=== PATIENT | male | born 1955 | race Caucasian/White ===

== ENCOUNTER 2023-09-07 14:00 | Outpatient (OUT) | payer MEDICARE, SELFPAY ==
--- NOTE | 2023-09-07 14:08 | XR_ITS ---
The [address] [address] Patient Name: ITALIA ALLEN MRN: [id number] date: 1955 Sex: M Assigned Patient Location: RAD Current Patient Location: RAD Accession/Order Number: [id number] Exam Date: 09/07/2023 14:12 Report Date: 09/07/2023 14:43 At the request of: GREGOR VILLASEÑOR Procedure: XR chest 2V PROCEDURE: XR chest 2V DATE: 09/07/2023 1:12 PM CDT COMPARISONS: None. CLINICAL INDICATION: 68 years Male Chronic Cough R05.3 FINDINGS: The cardiomediastinal silhouette and pulmonary vasculature are within normal limits. The lungs are somewhat hypoaerated resulting in slight infrahilar atelectasis. Lungs are otherwise clear. There is no evidence of pleural effusion or pneumothorax. XR/XR chest 2V IMPRESSION: Chest radiograph is essentially within normal limits. Electronically authenticated by: KALEB LANDRUM Date: 09/07/2023 14:43
== END 2023-09-07 14:01 | disposition home or self-care (01) ==
LOC: RAD 14:03
PROVIDERS: PCP Nurse Practitioner Family; Visit Provider Nurse Practitioner Family
DX: R05.3 Chronic cough (principal)
CPT/HCPCS: 71046

== ENCOUNTER 2023-10-13 18:10 | Emergency (ER) | payer MEDICARE, SELFPAY ==
[2023-10-13] VITALS (54 sets, daily range): BP systolic 141–204; BP diastolic 71–122; PULSE 94–128; TEMP 36.6; O2SAT 78–100; BMI 36.2
--- NOTE | 2023-10-13 18:23 | ECG_ITS ---
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
--- NOTE | 2023-10-13 18:23 | XR_ITS ---
[address] [address] Patient Name: ITALIA ALLEN MRN: [id number] date: 1955 Sex: M Assigned Patient Location: ER Current Patient Location: ED.MAIN Accession/Order Number: [id number] Exam Date: 10/13/2023 18:40 Report Date: 10/13/2023 20:37 At the request of: MARYAM KWOK Procedure: XR chest 1V EXAM: XR chest 1V HISTORY: sob COMPARISON: 09/07/2023 TECHNIQUE: AP upright chest x-ray. FINDINGS: Cardiac enlargement slightly increased. Similar prominence with congestion of groundglass density consistent with edema. Left costophrenic angle poorly defined consistent with left effusion. No definite right effusion. No pneumothorax. XR/XR chest 1V IMPRESSION: Abnormal chest x-ray with findings consistent with CHF. Electronically authenticated by: DANYEL PARK Date: 10/13/2023 20:37
--- NOTE | 2023-10-13 18:30 | ED_ITS ---
HPI - SOB/Dyspnea General Chief Complaint: Shortness of Breath/Dyspnea Stated Complaint: Chest Pain Time Seen by Provider: 10/13/23 18:24 Source: patient and other Source comment: ems Mode of arrival: ambulance Limitations: no limitations History of Present Illness HPI Narrative: The patient presented to us with a history of few days progressively getting worse shortness of breath, the patient is not able to provide enough history as he is using nonrebreather and his pulse ox was 70% on arrival of the EMS. The patient has been having progressively getting worse bilateral edema of the lower extremity he mentioned that his physician has been trying to control his leg edema with Lasix The patient did mention having chest pain sometimes but the patient still speak in one-word sentences and not providing a lot of history Related Data Home Medications ?Medication ?Instructions ?Recorded ?Confirmed bumetanide 2 mg tablet 2 mg PO DAILY 10/13/23 10/13/23 diclofenac sodium 75 mg 75 mg PO BID 10/13/23 10/13/23 tablet,delayed release glipizide 10 mg tablet 10 mg PO BID 10/13/23 10/13/23 insulin detemir U-100 100 unit/mL 12 unit subcut BID 10/13/23 10/13/23 (3 mL) subcutaneous pen (Levemir FlexPen) insulin glargine 100 unit/mL (3 60 unit subcut DAILY 10/13/23 10/13/23 mL) subcutaneous pen (Lantus Solostar U-100 Insulin) lisinopril 40 mg tablet 40 mg PO DAILY 10/13/23 10/13/23 Allergies Allergy/AdvReac Type Severity Reaction Status Date / Time No Known Drug Allergies Allergy Verified 10/13/23 18:14 Review of Systems ROS Status of ROS 10 or more systems reviewed and unremark able except as noted in history and below Exam Narrative Exam Narrative: Nurses notes and vital signs reviewed and patient is not hypoxic. General: The patient is awake in respiratory distress and tachypneic Skin: Warm, dry, no pallor noted. No rash. Head: Normocephalic, atraumatic. Neck: Supple, non-tender. Eye: Pupils are equal, round and EOMI. No scleral icterus. Ears, Nose, Mouth, and Throat: TM are clear, no nasal mucosal hypertrophy. Oral mucosa is moist, no posterior oropharynx erythema, uvula is mid-line Cardiovascular: Regular Rate and Rhythm without murmur, gallop or rub. 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 No CVA tenderness Musculoskeletal: normal ROM, no calf or popliteal tenderness, bilateral 2+ sitting edema in both lower Extremities: GI: Abdomen is soft, non-distended. Normal bowel sounds. No masses appreciated. No tenderness to palpation. No rebound, guarding, or rigidity noted. Neurological: A&O x4. No cranial nerve dysfunction observed. No truncal ataxia. Moves all extremities. Sensation intact. Psychiatric: Cooperative and interactive. Normal mood and affect. Constitutional Vital Signs, click to edit/add: Last Vital Signs Temp 97.9 F 10/13/23 18:27 Pulse 117 H 10/13/23 18:27 Resp 24 H 10/13/23 18:27 BP 189/105 H 10/13/23 18:27 Pulse Ox 78 L 10/13/23 18:27 O2 Del Method Room Air 10/13/23 18:27 Course Vital Signs Vital signs: Vital Signs Pulse Oximetry 78 L 10/13/23 18:15 Oxygen Delivery Method Room Air 10/13/23 18:15 Temperature 97.9 F 10/13/23 18:27 Pulse Rate 117 H 10/13/23 18:27 Respiratory Rate 24 H 10/13/23 18:27 Blood Pressure 189/105 H 10/13/23 18:27 Pulse Oximetry 78 L 10/13/23 18:27 Oxygen Delivery Method Room Air 10/13/23 18:27 MDM - SOB/Dyspnea MDM Narrative Medical decision making narrative: The patient EKG upon arrival showing sinus tachycardia with a heart rate of 118 he is in distress prior to this test mostly secondary to pulmonary edema in addition to his blood pressure being elevated 180 but could be secondary to pulmonary edema secondary to hypertensive emergency The patient was started on nitro drip and CPAP The patient workup just started with a CBC chemistry as well as chest x-ray mostly he will need more Lasix as well to help diuresing him Patient care will be transferred to Dr. Aponte Discharge Plan Discharge Patient Disposition: Still a Patient
--- NOTE | 2023-10-13 18:36 | PC.NURSE ---
RT at bedside now
[2023-10-13 18:47] LABS: ABG PCO2 36.4 mmHg (35.0-45.0); Allen Test POSITIVE (POSITIVE); Base Excess ABG -3.1 mmol/L (-2.0-2.0); Basophils Absolute Auto 0.1 10^3/uL (0.0-0.1); Eosinophils Absolute Auto 0.4 10^3/uL (0.0-0.7); Eosinophils Percent Auto 2.9 % (0.9-7.0); Fractionated Inspired Oxygen 100 %; HCO3 ABG 21.9 mmol/L (22.0-26.0); Hematocrit 39.6 % (42.0-54.0); Hemoglobin 12.6 g/dL (14.0-18.0); Immature Granulocytes Abs Auto 0.08 10^3/uL (0.00-0.03); Immature Granulocytes Pct Auto 0.7 % (0.0-0.5); Liters per Minute 15; Lymphocytes Absolute Auto 1.4 10^3/uL (1.2-3.8); Lymphocytes Percent Auto 11.3 % (20.5-60.0); Mean Corpuscular HGB Conc 31.8 g/dL (29.9-35.2); Mean Corpuscular Hemoglobin 29.2 pg (25.9-34.0); Mean Corpuscular Volume 91.9 fL (80.0-94.0); Mean Platelet Volume 10.3 fL (9.5-13.5); Monocytes Absolute Auto 0.9 10^3/uL (0.3-0.8); Monocytes Percent Auto 7.5 % (1.7-12.0); Neutrophils Absolute Auto 9.4 10^3/uL (1.4-6.5); Neutrophils Percent Auto 76.6 % (43.0-75.0); O2 Mode NRB; Oxygen Saturation ABG 99.8 %; Platelet Count 337 10^3/uL (150-450); Puncture Site R RADIAL; Red Blood Count 4.31 10^6/uL (4.70-6.10); Red Cell Distribution Width 14.6 % (11.0-15.0); White Blood Count 12.2 10^3/uL (4.0-11.0); pH ABG 7.388 (7.350-7.450)
[2023-10-13 19:02] LABS: INR 1.04; Partial Thromboplastin Time 29.8 sec (22.3-36.2)
[2023-10-13 19:07] LABS: Alanine Aminotransferase 29 U/L (16-63); Albumin Globulin Ratio 0.8; Albumin Level 2.9 g/dL (3.4-5.0); Alkaline Phosphatase 78 U/L (46-116); Anion Gap 14.4; Aspartate Amino Transferase 29 U/L (15-37); BUN Creatinine Ratio 20.6; Bilirubin Total 0.5 mg/dL (0.2-1.0); Calcium 8.4 mg/dL (8.5-10.1); Carbon Dioxide 24.9 mmol/L (21.0-32.0); Chloride 104 mmol/L (98-107); Estimated GFR (African America 49 (>=60); Estimated GFR (Non-African Ame 40 (>=60); Globulin 3.6 g/dL; Glucose 272 mg/dL (74-106); Potassium 4.3 mmol/L (3.5-5.1); Sodium 139 mmol/L (136-145); Total Protein 6.5 g/dL (6.4-8.2)
[2023-10-13 19:22] LABS: Troponin I High Sensitivity 80.7 pg/mL (4.0-76.1)
--- NOTE | 2023-10-13 20:01 | RESP.RT ---
CPAP 10
[2023-10-13] MEDS: FUROSEMIDE 40 MG/4 ML VIAL IVP ×2 (20:06→22:20)
--- NOTE | 2023-10-13 20:36 | RESP.RT ---
Addendum entered by Aidee Gomze 10/13/23 20:39: Titrated to NC 2 LPM Original Note: CPAP 10
[2023-10-13 20:37] LABS: Troponin I High Sensitivity 543.2 pg/mL (4.0-76.1)
--- NOTE | 2023-10-13 20:37 | ECG_ITS ---
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
[2023-10-13] MEDS: ASPIRIN 81 MG TAB.CHEW 324 MG PO (20:53)
[2023-10-13 22:59] LABS: Troponin I High Sensitivity 982.5 pg/mL (4.0-76.1)
[2023-10-14] VITALS (46 sets, daily range): BP systolic 105–166; BP diastolic 61–98; PULSE 87–119; O2SAT 90–99
[2023-10-14 04:49] LABS: Troponin I High Sensitivity 1680.7 pg/mL (4.0-76.1)
--- NOTE | 2023-10-14 04:49 | ECG_ITS ---
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
[2023-10-14] MEDS: METOPROLOL TARTRATE 5 MG/5 ML VIAL 2.5 MG IVP (05:51)
[2023-10-14] MEDS: HEPARIN SODIUM (PORCINE) 5,000 UNIT/ML VIAL 4000 UNIT IV (05:52)
[2023-10-14] MEDS: HEPARIN SODIUM,PORCINE/D5W 25,000 UNIT/500 ML IV.SOLN 20 UNIT IV (05:52)
== END 2023-10-14 08:00 | disposition short-term general hospital (02) ==
PROVIDERS: Emergency Medicine; Emergency Provider Student in an Organized Health Care Education/Training Program; PCP Nurse Practitioner Family
DX: I50.9 Heart failure, unspecified (principal); J96.01 Acute respiratory failure with hypoxia; R79.89 Other specified abnormal findings of blood chemistry; I24.89 Other forms of acute ischemic heart disease
CPT/HCPCS: 36415; 36600; 71045; 80053; 82805; 83880; 84484; 85025; 85610; 85730; 93005; 94660; 96365; 96366; 96375; 96376; 99285; J1644; J1940

== ENCOUNTER 2023-11-19 15:04 | Emergency (ER) | payer MEDICARE, SELFPAY ==
[2023-11-19] VITALS (14 sets, daily range): BP systolic 124–163; BP diastolic 61–97; PULSE 64–79; TEMP 37.3; O2SAT 93–97; BMI 35.9
--- OUTSIDE RECORDS SUMMARY | 2023-11-19 15:13 | XMS_ITS | CCD ---
Author Organization [facility] Care Team Providers Care Career Technical Supervisor Name Role Phone NON STAFF Primary Care Provider UnavailMD Alodnra Rodriguez Admit Provider MD Ann Plata Other Provider MD Yovanny Rivera Attending Provider Alondra Gonzales Admitting Unavailable NON STAFF Primary Care Unavailable Yovanny Rivera Attending Unavailab Ann Zamarripa Consulting Unavailable ANN PLATA Attending Unavailable ANN PLATA Referring Unavailable JASPREET DAVID Admitting Unavailable NISSA BENÍTEZ Attending Unavailable LORIN BUSH Consulting Unavailable CARL WILEY Attending Unavailable ASIA COOLEY Referring Unavailable Medications Current Medications Medication Drug Class(es) Dates Sig (Normalized) Sig (Original) aspirin 81 mg delayed release oral tablet (1 source) Platelet Aggregation Inhibitor, Nonsteroidal Anti-inflammatory Drug Start: 10-15-2023 take 81 mg by mouth once daily Aspirin Active 81 MG PO Daily 0 October 15, 2023 12:00am bumetanide 2 mg oral tablet (1 source) Loop Diuretic Start: 10-14-2023 take 2 mg by mouth once daily Bumetanide Active 2 MG PO Daily October 14, 2023 12:00am 10 ml furosemide 10 mg/ml injection (1 source) Loop Diuretic Start: 10-15-2023 take 40 mg intravenously twice daily Furosemide Active 40 MG IV-PUSH BID@0800,1600 0 October 15, 2023 12:00am glipiZIDE 5 mg oral tablet (1 source) Sulfonylurea Start: 10-14-2023 take 10 mg by mouth twice daily Glipizide Active 10 MG PO Twice daily October 14, 2023 12:00am 3 ml insulin detemir 100 unt/ml pen injector (1 source) Insulin Analog Start: 10-14-2023 inject 12 [IU] by subcutaneous injection twice daily Insulin Detemir U-100 Active 12 UNIT SUBCUT Twice daily October 14, 2023 12:00am Insulin Glargine-Yfgn (Semglee(Insulin Glarg-Yfgn)Pen) 100 unit/mL (3 mL) insulin pen (2 sources) Start: 10-15-2023 Insulin Glargine-Yfgn (Semglee(Insulin Glarg-Yfgn)Pen) 100 unit/mL (3 mL) insulin pen Active 30 UNIT SUBCUT Daily 15 October 15, 2023 5:56pm Start: 10-14-2023 End: 10-15-2023 Insulin Glargine-Yfgn (Semgl ee(Insulin Glarg-Yfgn)Pen) 100 unit/mL (3 mL) insulin pen Discontinued 60 UNIT SUBCUT Daily October 14, 2023 12:00am October 15, 2023 5:57pm lisinopril 40 mg oral tablet (1 source) Angiotensin Converting Enzyme Inhibitor Start: 10-14-2023 take 40 mg by mouth once daily Lisinopril Active 40 MG PO Daily October 14, 2023 12:00am metoprolol tartrate 25 mg oral tablet (1 source) beta-Adrenergic Neena Start: 10-15-2023 take 25 mg by mouth twice daily Metoprolol Tartrate Active 25 MG PO Twice daily 0 October 15, 2023 12:00am Completed/Discontinued Medications Medication Drug Class(es) Dates Sig (Normalized) Sig (Original) diclofenac sodium 75 mg delayed release oral tablet (1 source) Nonsteroidal Anti-inflammatory Drug Start: 10-14-2023 End: 10-15-2023 take 75 mg by mouth twice daily Diclofenac Sodium Discontinued 75 MG PO Twice daily October 14, 2023 12:00am October 15, 2023 5:57pm Problems Problem Classification Problem Date Documented Da te Episodic/Chronic Acute myocardial infarction (2 sources) Non-ST elevation (NSTEMI) myocardial infarction; Translations: [Non-ST elevation (NSTEMI) myocardial infarction (Multi)] Onset: 10-15-2023 Chronic Chronic kidney disease (2 sources) Chronic kidney disease; Translations: [Chronic kidney disease, stage 3a (Multi)] Onset: 10-15-2023 Congestive heart failure; nonhypertensive (7 sources) Acute on chronic systolic heart failure; Translations: [Acute on chronic systolic (congestive) heart failure] Onset: 10-14-2023 10-14-2023 Chronic Coronary atherosclerosis and other heart disease (7 sources) Acute coronary syndrome; Translations: [Acute ischemic heart disease, unspecified] Onset: 10-14-2023 10-14-2023 Chronic Diabetes mellitus without complication (2 sources) Type 2 diabetes mellitus without complications; Translations: [Type 2 diabetes mellitus without complications (Multi)] Onset: 10-15-2023 Chronic Essential hypertension (4 sources) Essential (primary) hypertension; Translations: [Essential (primary) hypertension] Onset: 10-15-2023 Chronic Occlusion or stenosis of precerebral arteries (2 sources) Occlusion and stenosis of right carotid artery; Translations: [Occlusion and stenosis of right carotid artery] Onset: 11-02-2023 Chronic Other 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 (2 sources) 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; Translations: [USP (current) use of insulin (Multi)] Onset: 10-15-2023 Episodic Other circulatory disease (2 sources) Other disorders of arteries, arterioles and capillaries in diseases classified elsewhere; Translations: [Other disorders of arteries, arterioles and capillaries in diseases classified elsewhere ([facility])] Onset: 10-15-2023 Chronic Other lower respiratory disease (2 sources) Shortness of breath; Translations: [Shortness of breath] Onset: 10-15-2023 Episodic Other nervous system disorders (2 sources) Other chronic pain; Translations: [Other chronic pain] Onset: 10-15-2023 Chronic Other nutritional; endocrine; and metabolic disorders (2 sources) Body mass index (BMI) 36.0-36.9, adult; Translations: [Body mass index (BMI) 36.0-36.9, adult] Onset: 11-02-2023 Chronic Peripheral and visceral atherosclerosis (2 sources) Peripheral vascular disease, unspecified; Translations: [Peripheral vascular disease, unspecified ([facility])] Onset: 10-15-2023 Chronic Residual codes; unclassified (2 sources) Edema, unspecified; Translations: [Edema, unspecified] Onset: 11-02-2023 Episodic Respiratory failure; insufficiency; arrest (adult) (3 sources) Acute respiratory failure; Translations: [Acute respiratory failure with hypoxia] Onset: 10-14-2023 10-14-2023 Episodic Results Test Name Value Interpretation Reference Range Facility ECG 12-[facility]ADon 11-13-2023 ECG 12-LEAD Ventricular Rate 72 Atrial Rate 72 P-R Interval 188 QRS Duration 96 Q-T Interval 398 QTC Calculation(Bazett) 435 P Sumner -13 R Sumner 9 T Sumner 36 QRS Count 12 Q Onset 216 P Onset 122 P Offset 163 T Offset 415 QTC Fredericia 423 Diagnosis Normal sinus rhythm Normal ECG When compared with ECG of 16-OCT-2023 08:50, No significant change was found Confirmed by Mere Urban ([id number]) on 11/14/2023 6:48:02 PM Normal [facility] CBC panel Auto (Bld)on 10-23 Erythrocyte distribution width (RBC) [Ratio] 15.0 % High 11.5-14.5 [facility] Comment on above: Performed By: #### 5 8077-9 #### ERICA Tam ([id number]) [facility] ([facility]) [address] [place] [address] 44359 Hematocrit (Bld) [Volume fraction] 36.3 % Low 41.0-52.0 [facility] Comment on above: Performed By: #### 5 8077-9 #### ERICA Tam ([id number]) [facility] ([facility]) [address] [place] [address] 26501 Hemoglobin (Bld) [Mass/Vol] 11.4 g/dL Low 13.5-17.5 [facility] Comment on above: Performed By: #### 5 8077-9 #### ERICA Tam ([id number]) [facility] ([facility]) [id number] [place] [address] 00407 MCH (RBC) [Entitic mass] 29.1 pg Normal 26.0-34.0 [facility] Comment on above: Performed By: #### 5 8077-9 #### ERICA Tam ([id number]) [facility] ([facility]) [id number] [place] [address] 06953 MCHC (RBC) [Mass/Vol] 31.4 g/dL Low 32.0-36.0 [facility] Comment on above: Performed By: #### 5 8077-9 #### ERICA Tam ([id number]) [facility] ([facility]) [address] [place] [address] 11603 MCV (RBC) [Entitic vol] 93 fL Normal 80-100 [facility] Comment on above: Performed By: #### 5 8077-9 #### ERICA Tam ([id number]) [facility] ([facility]) [address] [place] [address] 68533 Nucleated RBC/100 WBC (Bld) [Ratio] 0.0 /100 WBCs Normal 0.0-0.0 [facility] Comment on above: Performed By: #### 5 8077-9 #### ERICA Tam ([id number]) [facility] ([facility]) [address] [place] [address] 36647 Platelets (Bld) [#/Vol] 313 x10*3/uL Normal 150-450 [facility] Comment on above: Performed By: #### 5 8077-9 #### ERICA Tam ([id number]) [facility] ([facility]) [address] [place] [address] 19157 RBC (Bld) [#/Vol] 3.92 x10*6/uL Low 4.50-5.90 [facility] Comment on above: Performed By: #### 5 8077-9 #### ERICA Tam ([id number]) [facility] ([facility]) [address] [place] [address] 50869 WBC (Bld) [#/Vol] 8.9 x10*3/uL Normal 4.4-11.[address] [facility] Comment on above: Performed By: #### 5 8077-9 #### ERICA Tam ([id number]) [facility] ([facility]) [address] [place] [address] 99669 Glucose Test strip manual (B ld) [Mass/Vol]on 10-24-2023 Glucose [Mass/Vol] 203 mg/dL High 74-99 [facility] Comment on above: Performed By: #### 5 8077-9 #### ERICA Tam ([id number]) [facility] ([facility]) [address] [place] [address] 48743 Renal function 2000 panelon 10-24-2023 Albumin BCP dye [Mass/Vol] 3.2 g/dL Low 3.4-5.0 [facility] Comment on above: Performed By: #### 5 8077-9 #### ERICA Tam ([id number]) [facility] ([facility]) [id number] [place] [address] 13654 Anion gap [Moles/Vol] 12 mmol/L Normal 10-20 [facility] Comment on above: Performed By: #### 5 8077-9 #### ERICA Tam ([id number]) [facility] ([facility]) [address] [place] [address] 59610 Calcium [Mass/Vol] 8.4 mg/dL Low 8.6-10.6 [facility] Comment on above: Performed By: #### 5 8077-9 #### ERICA Tam ([id number]) [facility] ([facility]) [address] [place] [address] 05961 Chloride [Moles/Vol] 105 mmol/L Normal 98-107 [facility] Comment on above: Performed By: #### 5 8077-9 #### ERICA Tam ([id number]) [facility] ([facility]) [address] [place] [address] CO2 [Moles/Vol] 24 mmol/L Normal 21-32 [facility] Comment on above: Performed By: #### 5 8077-9 #### ERICA Tam ([id number]) [facility] ([facility]) [address] [place] [address] Creatinine [Mass/Vol] 1.72 mg/dL High 0.50-1.30 [facility] Comment on above: Performed By: #### 5 8077-9 #### ERICA Tam ([id number]) [facility] ([facility]) [address] [place] [address] Glomerular filtration rate/1.73 sq M.predicted 42 mL/min/1.73m*2 Low >60 [facility] Comment on above: Result Comment: Calc ulations of estimated GFR are performed using the 2020 CKD-EPI Study Refit equation without the race variable for the IDMS-Traceable creatinine methods. https://jasn.asnjournals.org/content/early//ASN.91089 93319 Performed By: #### 5 8077-9 #### ERICA Tam ([id number]) [facility] ([facility]) [address] [place] [address] 12154 Glucose [Mass/Vol] 184 mg/dL High 74-99 [facility] Comment on above: Performed By: #### 5 8077-9 #### ERICA Tam ([id number]) [facility] ([facility]) [address] [place] [address] 14259 Phosphate [Mass/Vol] 3.9 mg/dL Normal 2.5-4.9 [facility] Comment on above: Result Comment: The performance characteristics of phosphorus testing in heparinized plasma have been validated by the individual laboratory site where testing is performed. Testing on heparinized plasma is not approved by the FDA; however, such approval is not necessary. Performed By: #### 5 8077-9 #### EIRCA Tam ([id number]) [facility] ([facility]) [address] [place] [address] Potassium [Moles/Vol] 4.1 mmol/L Normal 3.5-5.3 [facility] Comment on above: Performed By: #### 5 8077-9 #### ERICA Tam ([id number]) [facility] ([facility]) [address] [place] [address] Sodium [Moles/Vol] 137 mmol/L Normal 136-145 [facility] Comment on above: Performed By: #### 5 8077-9 #### ERICA Tam ([id number]) [facility] ([facility]) [address] [place] [address] 68071 Urea nitrogen [Mass/Vol] 38 mg/dL High 6-23 [facility] Comment on above: Performed By: #### 5 8077-9 #### ERICA Tam ([id number]) [facility] ([facility]) [address] [place] [address] 07143 Activated clotting timeon ACT Coag (Bld) [address] Comment on above: Result Comment: Targ et ACT range will vary based on the patient population, clinical status, and surgical intervention occurring. Performed By: #### 5 8077-9 #### ERICA Tam ([id number]) [facility] ([facility]) [address] [place] [address] 79459 ACT Coag (Bld) [address] Comment on above: Result Comment: Targ et ACT range will vary based on the patient population, clinical status, and surgical intervention occurring. Performed By: #### 5 8077-9 #### ERICA Tam ([id number]) [facility] ([facility]) [address] [place] [address] 80518 ACT Coag (Bld) [address] Comment on above: Result Comment: Targ et ACT range will vary based on the patient population, clinical status, and surgical intervention occurring. Performed By: #### 5 8077-9 #### ERICA Tam ([id number]) [facility] ([facility]) [address] [place] [address] 18416 CARDIAC CATHETERIZATION PROC EDUREon 10-23-2023 CARDIAC CATHETERIZATION PROCEDURE [facility], Statistical Typist, [address] [place] [address] 84150 Cardiovascular Catheterization Report Patient Name: ITALIA ALLEN Performing Physician: [id number] Wiley MD Study Date: 10/23/2023 Verifying Physician: Dior Wiley MD MRN/PID: [id number] Hotel Guest Service Agent/Co-Scrub: Ordering Provider: [id number] ASIA COOLEY Date of /Age: 6 1955 / 68 years Hotel Guest Service Agent: Gender: M Fellow: [id number] Asia Cooley DM Admit Date: Fellow: Abdoulaye Welsh MD Surgeon: Study: Left Heart Cath with PCI Additional Study: IVUS - Intravascular Ultrasound Additional Study: Orbital Atherectomy Indications: ITALIA ALLEN is a 68 year old male who presents with dyslipidemia, hypertension, renal failure and diabetes. ITALIA ALLEN is a 68 year old male who presents with coronary artery disease, diabetes, obesity, hypertension, dyslipidemia and a chest pain assessment of typical angina. NSTE - ACS and left ventricular dysfunction. Heart failure. Recent myocardial infarction. Recent CT. Medical History: Stress test performed: No. CTA performed: No. Agatston accessed: No. LVEF Assessed: Yes. LVEF = 45%. Cardiac arrest: No. Cardiac surgical consult: Completed - cardiac surgery not recommended. Cardiovascular instability: No. Frailty status of patient entering lab: 5 = Mildly frail. HPI: 68-year-old male with a past medical history of T2DM, heart failure with preserved ejection fraction, CKD, hyperlipidemia and hypertension who initially presented to an outside hospital with 2 days of chest pain associated with worsening dyspnea. He was subsequently transferred to [facility] for further workup. 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 Transthoracic echocardiogram demonstrated an LVEF of 45 to 50%. He was then transferred to [facility] for CABG evaluation. Sadly, his about a month ago and the patient has been suffering from significant depression/anxiety has been suffering from anxiety attacks associated with chest pain and dyspnea. On exam by cardiac surgery consults, patient was found to be labile, tearful due to the recent passing of his and had significant concerns about recovery postsurgery. In this setting, patient has been referred for multivessel percutaneous coronary vascularization. Coronary Angiography: The coronary circulation is right dominant. Left Main Coronary Artery: The left main coronary artery is a large caliber vessel. The left main coronary artery showed a normal vessel. Left Anterior Descending Coronary Artery Distribution: The LAD demonstrated calcification and severe calcification with severe stenosis from the ostium (80%) to its mid-segment (80-90%). Circumflex Coronary Artery Distribution: The mid circumflex coronary artery showed 50% stenosis. The 1st obtuse marginal branch is a large caliber vessel. This lesion was calcified. Right Coronary Artery Distribution: Known CONVERSION MAN. Coronary Interventions: After infiltration with 2% Lidocaine, the right was cannulated with a modified Seldinger technique with ultrasound guidance. Subsequently a 6 British sheath was placed antegrade in the right. A 6 British EBU 3.5 guide catheter was advanced over a 0.035 J guidewire into the ascending aorta. The left coronary artery was cannulated and angiography was performed. Coronary angiography demonstrated severe focal stenosis in a large caliber obtuse marginal branch and severe focal stenosis in the midsegment of the LAD. The circumflex artery was wired with the use of the Runthrough coronary guidewire without difficulty. The lesion in the obtuse marginal branch was predilated with a 3.0 x 15 mm semicompliant balloon with 1 inflation at 14 rodrigo. The lesion was then treated with a 3.5 x 15 mm [place] drug-eluting stent at 12 rodrigo. Post-stent intravascular ultrasound assessment with the [place] catheter was performed. IVUS demonstrated an underexpanded stent with a distal reference diameter of 4.0 mm. The stent was then postdilated with a 4.0 x 8 mm noncompliant balloon multiple inflations at 24 rodrigo. Post dilatation IVUS demonstrated a well-expanded and well apposed stent without evidence of medial edge dissection. The Johnathon Blue guidewire was removed from the circumflex and was used to wire the distal LAD without difficulty. Intravascular ultrasound assessment of the mid to ostial LAD was performed that demonstrated severe calcification with a >180 degree arc of calcification in the mid to ostial LAD, a minimal luminal area of 4.2 mm? and minimal luminal diameter of 2.2 mm. The distal reference diameter was measured to be 3.5 mm and 4.0 mm at the ostium of the LAD. The Viper wire was used parallel wire the LAD and the Johnathon blue wire was removed. Orbital atherectomy of the mid to proximal LAD was performed with 4 pa (more content not included)... [facility] CBC panel Auto (Bld)on 09-03 -2024 Erythrocyte distribution width (RBC) [Ratio] 14.6 % High 11.5-14.5 [facility] Comment on above: Performed By: #### 7 77-3 #### ERICA Tam ([id number]) [facility] ([facility]) [address] [place] [address] 15442 Hematocrit (Bld) [Volume fraction] 37.2 % Low 41.0-52.0 [facility] Comment on above: Performed By: #### 7 77-3 #### ERICA Tam ([id number]) [facility] ([facility]) [id number] [place] [address] 57407 Hemoglobin (Bld) [Mass/Vol] 11.2 g/dL Low 13.5-17.5 [facility] Comment on above: Performed By: #### 7 77-3 #### ERICA Tam ([id number]) [facility] ([facility]) [address] [place] [address] 53632 MCH (RBC) [Entitic mass] 27.9 pg Normal 26.0-34.0 [facility] Comment on above: Performed By: #### 7 77-3 #### ERICA Tam ([id number]) [facility] ([facility]) [address] [place] [address] 07306 MCHC (RBC) [Mass/Vol] 30.1 g/dL Low 32.0-36.0 [facility] Comment on above: Performed By: #### 7 77-3 #### ERICA Tam ([id number]) [facility] ([facility]) [address] [place] [address] 64040 MCV (RBC) [Entitic vol] 93 fL Normal 80-100 [facility] Comment on above: Performed By: #### 7 77-3 #### ERICA Tam ([id number]) [facility] ([facility]) [address] [place] [address] 45698 Nucleated RBC/100 WBC (Bld) [Ratio] 0.0 /100 WBCs Normal 0.0-0.0 [facility] Comment on above: Performed By: #### 7 77-3 #### ERICA Tam ([id number]) [facility] ([facility]) [address] [place] [address] Platelets (Bld) [#/Vol] 334 x10*3/uL Normal 150-450 [facility] Comment on above: Performed By: #### 7 77-3 #### ERICA Tam ([id number]) [facility] ([facility]) [address] [place] [address] RBC (Bld) [#/Vol] 4.01 x10*6/uL Low 4.50-5.90 [facility] Comment on above: Performed By: #### 7 77-3 #### ERICA Tam ([id number]) [facility] ([facility]) [id number] [place] [address] 80800 WBC (Bld) [#/Vol] 9.6 x10*3/uL Normal 4.4-11.[address] [facility] Comment on above: Performed By: #### 7 77-3 #### ERICA Tam ([id number]) [facility] ([facility]) [id number] [place] [address] 82459 Glucose Test strip manual (B ld) [Mass/Vol]on 10-23-2023 Glucose [Mass/Vol] 238 mg/dL High 74-99 [facility] Comment on above: Performed By: #### 5 8077-9 #### ERICA Tam ([id number]) [facility] ([facility]) [address] [place] [address] Glucose [Mass/Vol] 96 mg/dL Normal 74-99 [facility] Comment on above: Performed By: #### 7 77-3 #### ERICA Tam ([id number]) [facility] ([facility]) [id number] [place] [address] 30562 Glucose [Mass/Vol] 101 mg/dL High 74-99 [facility] Comment on above: Performed By: #### 7 77-3 #### ERICA Tam ([id number]) [facility] ([facility]) [address] [place] [address] Glucose [Mass/Vol] 96 mg/dL Normal 74-99 [facility] Comment on above: Performed By: #### 7 77-3 #### ERICA Tam ([id number]) [facility] ([facility]) [address] [place] [address] Renal function 2000 panelon 10-23-2023 Albumin BCP dye [Mass/Vol] 3.2 g/dL Low 3.4-5.0 [facility] Comment on above: Performed By: #### 7 77-3 #### ERICA Tam ([id number]) [facility] ([facility]) [id number] [place] [address] 96141 Anion gap [Moles/Vol] 13 mmol/L Normal 10-20 [facility] Comment on above: Performed By: #### 7 77-3 #### ERICA Tam ([id number]) [facility] ([facility]) [address] [place] [address] Calcium [Mass/Vol] 8.5 mg/dL Low 8.6-10.6 [facility] Comment on above: Performed By: #### 7 77-3 #### ERICA Tam ([id number]) [facility] ([facility]) [address] [place] [address] Chloride [Moles/Vol] 103 mmol/L Normal 98-107 [facility] Comment on above: Performed By: #### 7 77-3 #### ERICA Tam ([id number]) [facility] ([facility]) [address] [place] [address] CO2 [Moles/Vol] 25 mmol/L Normal 21-32 [facility] Comment on above: Performed By: #### 7 77-3 #### ERICA Tam ([id number]) [facility] ([facility]) [address] [place] [address] Creatinine [Mass/Vol] 1.77 mg/dL High 0.50-1.30 [facility] Comment on above: Performed By: #### 7 77-3 #### ERICA Tam ([id number]) [facility] ([facility]) [address] [place] [address] 76655 Glomerular filtration rate/1.73 sq M.predicted 41 mL/min/1.73m*2 Low >60 [facility] Comment on above: Result Comment: Calc ulations of estimated GFR are performed using the 2020 CKD-EPI Study Refit equation without the race variable for the IDMS-Traceable creatinine methods. https://jasn.asnjournals.org/content/early/ASN.90043 77706 Performed By: #### 7 77-3 #### ERICA Tam ([id number]) [facility] ([facility]) [address] [place] [address] 37960 Glucose [Mass/Vol] 99 mg/dL Normal 74-99 [facility] Comment on above: Performed By: #### 7 77-3 #### ERICA Tam ([id number]) [facility] ([facility]) [address] [place] [address] 70292 Phosphate [Mass/Vol] 4.9 mg/dL Normal 2.5-4.9 [facility] Comment on above: Result Comment: MODE RATE HEMOLYSIS DETECTED. The result may be falsely elevated due to hemolysis or other interferents. Clinical correlation is recommended. Repeat testing may be considered. The performance characteristics of phosphorus testing in heparinized plasma have been validated by the individual laboratory site where testing is performed. Testing on heparinized plasma is not approved by the FDA; however, such approval is not necessary. Performed By: #### 7 77-3 #### ERICA Tam ([id number]) [facility] ([facility]) [address] [place] [address] 06941 Potassium [Moles/Vol] 5.2 mmol/L Normal 3.5-5.3 [facility] Comment on above: Result Comment: MODE RATE HEMOLYSIS DETECTED. The result may be falsely elevated due to hemolysis or other interferents. Clinical correlation is recommended. Repeat testing may be considered. Performed By: #### 7 77-3 #### ERICA Tam ([id number]) [facility] ([facility]) [address] [place] [address] Sodium [Moles/Vol] 136 mmol/L Normal 136-145 [facility] Comment on above: Performed By: #### 7 77-3 #### ERICA Tam ([id number]) [facility] ([facility]) [address] [place] [address] 72124 Urea nitrogen [Mass/Vol] 39 mg/dL High 6-23 [facility] Comment on above: Performed By: #### 7 77-3 #### ERICA Tam ([id number]) [facility] ([facility]) [id number] [place] [address] 48194 Glucose Test strip manual (B ld) [Mass/Vol]on 10-22-2023 Glucose [Mass/Vol] 246 mg/dL High 74-99 [facility] Comment on above: Performed By: #### 7 77-3 #### ERICA Tam ([id number]) [facility] ([facility]) [id number] [place] [address] 31506 Glucose [Mass/Vol] 186 mg/dL High 7499 [facility] Comment on above: Performed By: #### 7 77-3 #### ERICA Tam ([id number]) [facility] ([facility]) [address] [place] [address] 09353 Glucose [Mass/Vol] 213 mg/dL High 74-99 [facility] Comment on above: Performed By: #### 7 77-3 #### ERICA Tam ([id number]) [facility] ([facility]) [address] [place] [address] 83301 Glucose [Mass/Vol] 143 mg/dL High 74-99 [facility] Comment on above: Performed By: #### 7 77-3 #### ERICA Tam ([id number]) [facility] ([facility]) [address] [place] [address] Renal function 2000 panelon 10-22-2023 Albumin BCP dye [Mass/Vol] 3.3 g/dL Low 3.4-5.0 [facility] Comment on above: Performed By: #### 7 77-3 #### ERICA MCDONALD L ([id number]) [facility] ([facility]) [address] [place] [address] Anion gap [Moles/Vol] 14 mmol/L Normal 10-20 [facility] Comment on above: Performed By: #### 7 77-3 #### ERICA MCDONALD L ([id number]) [facility] ([facility]) [address] [place] [address] 12103 Calcium [Mass/Vol] 8.8 mg/dL Normal 8.6-10.6 [facility] Comment on above: Performed By: #### 7 77-3 #### ERICA MCDONALD L ([id number]) [facility] ([facility]) [address] [place] [address] 72872 Chloride [Moles/Vol] 101 mmol/L Normal 98-107 [facility] Comment on above: Performed By: #### 7 77-3 #### ERICA MCDONALD L ([id number]) [facility] ([facility]) [address] [place] [address] CO2 [Moles/Vol] 23 mmol/L Normal 21-32 [facility] Comment on above: Performed By: #### 7 77-3 #### ERICA MCDONALD L ([id number]) [facility] ([facility]) [address] [place] [address] 04477 Creatinine [Mass/Vol] 1.75 mg/dL High 0.50-1.30 [facility] Comment on above: Performed By: #### 7 77-3 #### ERICA MCDONALD L ([id number]) [facility] ([facility]) [address] [place] [address] Glomerular filtration rate/1.73 sq M.predicted 42 mL/min/1.73m*2 Low >60 [facility] Comment on above: Result Comment: Calc ulations of estimated GFR are performed using the 2020 CKD-EPI Study Refit equation without the race variable for the IDMS-Traceable creatinine methods. https://jasn.asnjournals.org/content//ASN.93535 57990 Performed By: #### 7 77-3 #### ERICA Tam ([id number]) [facility] ([facility]) [address] [place] [address] Glucose [Mass/Vol] 214 mg/dL High 74-99 [facility] Comment on above: Performed By: #### 7 77-3 #### ERICA Tam ([id number]) [facility] ([facility]) [address] [place] [address] 40151 Phosphate [Mass/Vol] 4.3 mg/dL Normal 2.5-4.9 [facility] Comment on above: Result Comment: The performance characteristics of phosphorus testing in heparinized plasma have been validated by the individual laboratory site where testing is performed. Testing on heparinized plasma is not approved by the FDA; however, such approval is not necessary. Performed By: #### 7 77-3 #### ERICA Tam ([id number]) [facility] ([facility]) [address] [place] [address] Potassium [Moles/Vol] 4.1 mmol/L Normal 3.5-5.3 [facility] Comment on above: Performed By: #### 7 77-3 #### ERICA Tam ([id number]) [facility] ([facility]) [address] [place] [address] Sodium [Moles/Vol] 134 mmol/L Low 136-145 [facility] Comment on above: Performed By: #### 7 77-3 #### ERICA Tam ([id number]) [facility] ([facility]) [address] [place] [address] Urea nitrogen [Mass/Vol] 38 mg/dL High 6-23 [facility] Comment on above: Performed By: #### 7 77-3 #### ERICA Tam ([id number]) [facility] ([facility]) [address] [place] [address] 36903 Glucose Test strip manual (B ld) [Mass/Vol]on 10-21-2023 Glucose [Mass/Vol] 189 mg/dL High [address] [place] [address] Comment on above: Performed By: #### 3 274-8 #### ERICA Tam ([id number]) [facility] ([facility]) [address] [place] [address] 38382 Glucose [Mass/Vol] 258 mg/dL High [address] [place] [address] Comment on above: Performed By: #### 3 274-8 #### ERICA Tam ([id number]) [facility] ([facility]) [address] [place] [address] 51315 Glucose [Mass/Vol] 392 mg/dL High [address] [place] [address] Comment on above: Performed By: #### 3 274-8 #### ERICA Tam ([id number]) [facility] ([facility]) [address] [place] [address] 82823 Glucose [Mass/Vol] 254 mg/dL High [address] [place] [address] Comment on above: Performed By: #### 3 274-8 #### ERICA Tam ([id number]) [facility] ([facility]) [address] [place] [address] 31327 Glucose [Mass/Vol] 296 mg/dL High [address] [place] [address] Comment on above: Performed By: #### 3 274-8 #### ERICA Tam ([id number]) [facility] ([facility]) [address] [place] [address] 79851 CBC panel Auto (Bld)on 10-19 Erythrocyte distribution width (RBC) [Ratio] 14.6 % High 11.5-14.5 [facility] Comment on above: Performed By: #### 3 274-8 #### ERICA Tam ([id number]) [facility] ([facility]) [address] [place] [address] 38656 Hematocrit (Bld) [Volume fraction] 34.7 % Low 41.0-52.0 [facility] Comment on above: Performed By: #### 3 274-8 #### ERICA Tam ([id number]) [facility] ([facility]) [address] [place] [address] 88930 Hemoglobin (Bld) [Mass/Vol] 11.2 g/dL Low 13.5-17.5 [facility] Comment on above: Performed By: #### 3 274-8 #### ERICA Tam ([id number]) [facility] ([facility]) [address] [place] [address] 91663 MCH (RBC) [Entitic mass] 28.9 pg Normal 26.0-34.0 [facility] Comment on above: Performed By: #### 3 274-8 #### ERICA Tam ([id number]) [facility] ([facility]) [address] [place] [address] 49129 MCHC (RBC) [Mass/Vol] 32.3 g/dL Normal 32.0-36.0 [facility] Comment on above: Performed By: #### 3 274-8 #### ERICA Tam ([id number]) [facility] ([facility]) [address] [place] [address] 53710 MCV (RBC) [Entitic vol] 89 fL Normal 80-100 [facility] Comment on above: Performed By: #### 3 274-8 #### ERICA Tam ([id number]) [facility] ([facility]) [address] [place] [address] 15040 Nucleated RBC/100 WBC (Bld) [Ratio] 0.0 /100 WBCs Normal 0.0-0.0 [facility] Comment on above: Performed By: #### 3 274-8 #### ERICA Tam ([id number]) [facility] ([facility]) [address] [place] [address] 24365 Platelets (Bld) [#/Vol] 293 x10*3/uL Normal 150-450 [facility] Comment on above: Performed By: #### 3 274-8 #### ERICA Tam ([id number]) [facility] ([facility]) [address] [place] [address] RBC (Bld) [#/Vol] 3.88 x10*6/uL Low 4.50-5.90 [facility] Comment on above: Performed By: #### 3 274-8 #### ERICA Tam ([id number]) [facility] ([facility]) [address] [place] [address] WBC (Bld) [#/Vol] 8.6 x10*3/uL Normal 4.4-11.[address] [facility] Comment on above: Performed By: #### 3 274-8 #### ERICA Tam ([id number]) [facility] ([facility]) [address] [place] [address] Glucose Test strip manual (B ld) [Mass/Vol]on 10-20-2023 Glucose [Mass/Vol] 298 mg/dL High [address] [place] [address] Comment on above: Performed By: #### 3 274-8 #### ERICA Tam ([id number]) [facility] ([facility]) [address] [place] [address] Glucose [Mass/Vol] 298 mg/dL High [address] [place] [address] Comment on above: Performed By: #### 3 274-8 #### ERICA Tam ([id number]) [facility] ([facility]) [address] [place] [address] Glucose [Mass/Vol] 294 mg/dL High [address] [place] [address] Comment on above: Performed By: #### T HYDS #### ERICA Tam ([id number]) [facility] ([facility]) [address] [place] [address] Glucose [Mass/Vol] 173 mg/dL High [facility] Comment on above: Performed By: #### T GRAHAMS #### ERICA Tam ([id number]) [facility] ([facility]) [address] [place] [address] 17731 Glucose [Mass/Vol] 146 mg/dL High 74-99 [facility] Comment on above: Performed By: #### T GRAHAMS #### ERICA Tam ([id number]) [facility] ([facility]) [address] [place] [address] 50578 Magnesiumon 10-20-2023 Magnesium [Mass/Vol] 1.74 mg/dL Normal 1.60-2.40 [facility] Comment on above: Performed By: #### 3 274-8 #### ERICA Tam ([id number]) [facility] ([facility]) [address] [place] [address] 23816 Renal function 2000 panelon 10-20-2023 Albumin BCP dye [Mass/Vol] 3.3 g/dL Low 3.4-5.0 [facility] Comment on above: Performed By: #### 3 274-8 #### ERICA Tam ([id number]) [facility] ([facility]) [address] [place] [address] 83091 Anion gap [Moles/Vol] 11 mmol/L Normal 10-20 [facility] Comment on above: Performed By: #### 3 274-8 #### ERICA Tam ([id number]) [facility] ([facility]) [address] [place] [address] 99878 Calcium [Mass/Vol] 8.5 mg/dL Low 8.6-10.6 [facility] Comment on above: Performed By: #### 3 274-8 #### ERICA Tam ([id number]) [facility] ([facility]) [address] [place] [address] 72366 Chloride [Moles/Vol] 102 mmol/L Normal 98-107 [facility] Comment on above: Performed By: #### 3 274-8 #### ERICA Tam ([id number]) [facility] ([facility]) [address] [place] [address] CO2 [Moles/Vol] 25 mmol/L Normal 21-32 [facility] Comment on above: Performed By: #### 3 274-8 #### ERICA Tam (64305) [facility] ([facility]) [address] [place] [address] Creatinine [Mass/Vol] 1.89 mg/dL High 0.50-1.30 [facility] Comment on above: Performed By: #### 3 274-8 #### ERICA Tam ([id number]) [facility] ([facility]) [address] [place] [address] 69326 Glomerular filtration rate/1.73 sq M.predicted 38 mL/min/1.73m*2 Low >60 [facility] Comment on above: Result Comment: Calc ulations of estimated GFR are performed using the 2020 CKD-EPI Study Refit equation without the race variable for the IDMS-Traceable creatinine methods. https://jasn.asnjournals.org/content/early/ASN.08487 34135 Performed By: #### 3 274-8 #### ERICA Tam ([id number]) [facility] ([facility]) [address] [place] [address] Glucose [Mass/Vol] 323 mg/dL High 74-99 [facility] Comment on above: Performed By: #### 3 274-8 #### ERICA Tam ([id number]) [facility] ([facility]) [address] [place] [address] Phosphate [Mass/Vol] 3.0 mg/dL Normal 2.5-4.9 [facility] Comment on above: Result Comment: The performance characteristics of phosphorus testing in heparinized plasma have been validated by the individual laboratory site where testing is performed. Testing on heparinized plasma is not approved by the FDA; however, such approval is not necessary. Performed By: #### 3 274-8 #### ERICA Tam ([id number]) [facility] ([facility]) [address] [place] [address] 80991 Potassium [Moles/Vol] 3.9 mmol/L Normal 3.5-5.3 [facility] Comment on above: Performed By: #### 3 274-8 #### ERICA Tam ([id number]) [facility] ([facility]) [address] [place] [address] 30122 Sodium [Moles/Vol] 134 mmol/L Low 136-145 [facility] Comment on above: Performed By: #### 3 274-8 #### ERICA Tam ([id number]) [facility] ([facility]) [address] [place] [address] 08305 Urea nitrogen [Mass/Vol] 31 mg/dL High 6-23 [facility] Comment on above: Performed By: #### 3 274-8 #### ERICA Tam ([id number]) [facility] ([facility]) [address] [place] [address] 56749 Glucose Test strip manual (B ld) [Mass/Vol]on 10-19-2023 Glucose [Mass/Vol] 355 mg/dL High [address] [place] [address] Comment on above: Performed By: #### T HYDS #### ERICA Tam ([id number]) [facility] ([facility]) [address] [place] [address] 45738 Glucose [Mass/Vol] 249 mg/dL High [address] [place] [address] Comment on above: Performed By: #### T HYDS #### ERICA Tam ([id number]) [facility] ([facility]) [address] [place] [address] 33314 Glucose [Mass/Vol] 274 mg/dL High [address] [place] [address] Comment on above: Performed By: #### T HYDS #### ERICA Tam ([id number]) [facility] ([facility]) [address] [place] [address] 05542 Glucose [Mass/Vol] 129 mg/dL High 74-99 [facility] Comment on above: Performed By: #### T HYDS #### ERICA Tam ([id number]) [facility] ([facility]) [address] [place] [address] 37918 Glucose [Mass/Vol] 121 mg/dL High 74-99 [facility] Comment on above: Performed By: #### T HYDS #### ERICA Tam ([id number]) [facility] ([facility]) [id number] [place] [address] 81902 CBC panel Auto (Bld)on 10-17 Erythrocyte distribution width (RBC) [Ratio] 14.6 % High 11.5-14.5 [facility] Comment on above: Performed By: #### L IPIN #### ERICA Tam ([id number]) [facility] ([facility]) [address] [place] [address] 46611 Hematocrit (Bld) [Volume fraction] 34.3 % Low 41.0-52.0 [facility] Comment on above: Performed By: #### L IPIN #### ERICA Tam ([id number]) [facility] ([facility]) [address] [place] [address] 48307 Hemoglobin (Bld) [Mass/Vol] 10.7 g/dL Low 13.5-17.5 [facility] Comment on above: Performed By: #### L IPIN #### ERICA Tam ([id number]) [facility] ([facility]) [address] [place] [address] 97544 MCH (RBC) [Entitic mass] 28.7 pg Normal 26.0-34.0 [facility] Comment on above: Performed By: #### L IPIN #### ERICA Tam ([id number]) [facility] ([facility]) [address] [place] [address] 25685 MCHC (RBC) [Mass/Vol] 31.2 g/dL Low 32.0-36.0 [facility] Comment on above: Performed By: #### L IPIN #### ERICA Tam ([id number]) [facility] ([facility]) [address] [place] [address] 49586 MCV (RBC) [Entitic vol] 92 fL Normal 80-100 [facility] Comment on above: Performed By: #### L IPIN #### ERICA Tam ([id number]) [facility] ([facility]) [address] [place] [address] 11102 Nucleated RBC/100 WBC (Bld) [Ratio] 0.0 /100 WBCs Normal 0.0-0.0 [facility] Comment on above: Performed By: #### L IPIN #### ERICA Tam ([id number]) [facility] ([facility]) [address] [place] [address] 28758 Platelets (Bld) [#/Vol] 295 x10*3/uL Normal 150-450 [facility] Comment on above: Performed By: #### L IPIN #### ERICA Tam ([id number]) [facility] ([facility]) [address] [place] [address] 71870 RBC (Bld) [#/Vol] 3.73 x10*6/uL Low 4.50-5.90 [facility] Comment on above: Performed By: #### L IPIN #### ERICA Tam ([id number]) [facility] ([facility]) [address] [place] [address] 56125 WBC (Bld) [#/Vol] 7.2 x10*3/uL Normal 4.4-11.[address] [facility] Comment on above: Performed By: #### L IPIN #### ERICA Tam ([id number]) [facility] ([facility]) [address] [place] [address] 94248 Glucose Test strip manual (B ld) [Mass/Vol]on 10-18-2023 Glucose [Mass/Vol] 169 mg/dL High 74-99 [facility] Comment on above: Performed By: #### T HYDS #### ERICA Tam ([id number]) [facility] ([facility]) [address] [place] [address] Glucose [Mass/Vol] 238 mg/dL High [address] [place] [address] Comment on above: Performed By: #### L IPIN #### ERICA Tam ([id number]) [facility] ([facility]) [address] [place] [address] Glucose [Mass/Vol] 251 mg/dL High [address] [place] [address] Comment on above: Performed By: #### L IPIN #### ERICA Tam ([id number]) [facility] ([facility]) [address] [place] [address] 39551 Glucose [Mass/Vol] 191 mg/dL High [address] [place] [address] Comment on above: Performed By: #### L IPIN #### ERICA Tam ([id number]) [facility] ([facility]) [address] [place] [address] 85353 Heparin.unfractionatedon Heparin unfractionated Chromogenic method Qn (PPP) 0.4 IU/mL Normal See Comment Below for Therapeutic Ranges [facility] Comment on above: Order Comment: When two (2) consecutive Heparin Assay, UFH results obtained 4 hours apart are therapeutic, obtain STAT Heparin Assay, UFH every a.m. Nursing to release order.The therapeutic reference range for UFH may be either 0.3-0.6 IU/mL or 0.3-0.7 IU/mL based on the clinical setting for anticoagulant therapy and the associated nomogram used. For Heparin dosing guidelines based on clinical scenario and Heparin Assay results, please refer to local Pharmacy and the [facility] Guidelines for Anticoagulation Therapy available on the [facility] intranet at: [email or web address] Performed By: #### L IPIN #### ERICA Tam ([id number]) [facility] ([facility]) [address] [place] [address] 66088 Magnesiumon 10-18-2023 Magnesium [Mass/Vol] 1.77 mg/dL Normal 1.60-2.40 [facility] Comment on above: Performed By: #### L EYADIN #### ERICA Tam ([id number]) [facility] ([facility]) [address] [place] [address] 93757 Renal function 2000 panelon 10-18-2023 Albumin BCP dye [Mass/Vol] 3.3 g/dL Low 3.4-5.0 [facility] Comment on above: Performed By: #### T HYDS #### ERICA Tam ([id number]) [facility] ([facility]) [id number] [place] [address] 29013 Anion gap [Moles/Vol] 12 mmol/L Normal 10-20 [facility] Comment on above: Performed By: #### T HYDS #### ERICA Tam (78505) [facility] ([facility]) [address] [place] [address] 80394 Calcium [Mass/Vol] 8.5 mg/dL Low 8.6-10.6 [facility] Comment on above: Performed By: #### T HYDS #### ERICA Tam ([id number]) [facility] ([facility]) [address] [place] [address] 37204 Chloride [Moles/Vol] 103 mmol/L Normal 98-107 [facility] Comment on above: Performed By: #### T HYDS #### ERICA Tam ([id number]) [facility] ([facility]) [address] [place] [address] 80826 CO2 [Moles/Vol] 26 mmol/L Normal 21-32 [facility] Comment on above: Performed By: #### T HYDS #### ERICA Tam ([id number]) [facility] ([facility]) [address] [place] [address] 63919 Creatinine [Mass/Vol] 1.58 mg/dL High 0.50-1.30 [facility] Comment on above: Performed By: #### T HYDS #### ERICA Tam ([id number]) [facility] ([facility]) [address] [place] [address] Glomerular filtration rate/1.73 sq M.predicted 47 mL/min/1.73m*2 Low >60 [facility] Comment on above: Result Comment: Calc ulations of estimated GFR are performed using the 2020 CKD-EPI Study Refit equation without the race variable for the IDMS-Traceable creatinine methods. https://jasn.asnjournals.org/content/early//ASN.01044 11537 Performed By: #### T HYDS #### ERICA Tam ([id number]) [facility] ([facility]) [address] [place] [address] 30470 Glucose [Mass/Vol] 220 mg/dL High 74-99 [facility] Comment on above: Performed By: #### T HYDS #### ERICA Tam ([id number]) [facility] ([facility]) [address] [place] [address] 16095 Phosphate [Mass/Vol] 2.8 mg/dL Normal 2.5-4.9 [facility] Comment on above: Result Comment: The performance characteristics of phosphorus testing in heparinized plasma have been validated by the individual laboratory site where testing is performed. Testing on heparinized plasma is not approved by the FDA; however, such approval is not necessary. Performed By: #### T HYDS #### ERICA Tam ([id number]) [facility] ([facility]) [address] [place] [address] Potassium [Moles/Vol] 4.1 mmol/L Normal 3.5-5.3 [facility] Comment on above: Performed By: #### T HYDS #### ERICA Tam ([id number]) [facility] ([facility]) [id number] [place] [address] 30991 Sodium [Moles/Vol] 137 mmol/L Normal 136-145 [facility] Comment on above: Performed By: #### T HYDS #### ERICA Tam ([id number]) [facility] ([facility]) [address] [place] [address] 37790 Urea nitrogen [Mass/Vol] 25 mg/dL High 6-23 [facility] Comment on above: Performed By: #### T GRAHAMS #### ERICA Tam ([id number]) [facility] ([facility]) [address] [place] [address] 55647 CBC panel Auto (Bld)on 10-16 Erythrocyte distribution width (RBC) [Ratio] 14.5 % Normal 11.5-14.5 [facility] Comment on above: Performed By: #### 2 4323-8 #### ERICA Tam ([id number]) [facility] ([facility]) [address] [place] [address] [phone] Hematocrit (Bld) [Volume fraction] 35.2 % Low 41.0-52.0 [facility] Comment on above: Performed By: #### 2 4323-8 #### ERICA Tam ([id number]) [facility] ([facility]) [address] [place] [address] [id number] Hemoglobin (Bld) [Mass/Vol] 11.1 g/dL Low 13.5-17.5 [facility] Comment on above: Performed By: #### 2 4323-8 #### ERICA Tam ([id number]) [facility] ([facility]) [address] [place] [address] [phone] MCH (RBC) [Entitic mass] 29.1 pg Normal 26.0-34.0 [facility] Comment on above: Performed By: #### 2 4323-8 #### ERICA Tam ([id number]) [facility] ([facility]) [address] [place] [address] 27276 MCHC (RBC) [Mass/Vol] 31.5 g/dL Low 32.0-36.0 [facility] Comment on above: Performed By: #### 2 4323-8 #### ERICA Tam ([id number]) [facility] ([facility]) [address] [place] [address] 21354 MCV (RBC) [Entitic vol] 92 fL Normal 80-100 [facility] Comment on above: Performed By: #### 2 4323-8 #### ERICA Tam ([id number]) [facility] ([facility]) [address] [place] [address] 49795 Nucleated RBC/100 WBC (Bld) [Ratio] 0.0 /100 WBCs Normal 0.0-0.0 [facility] Comment on above: Performed By: #### 2 4323-8 #### ERICA Tam ([id number]) [facility] ([facility]) [address] [place] [address] 84269 Platelets (Bld) [#/Vol] 316 x10*3/uL Normal 150-450 [facility] Comment on above: Performed By: #### 2 4323-8 #### ERICA Tam ([id number]) [facility] ([facility]) [address] [place] [address] 43529 RBC (Bld) [#/Vol] 3.82 x10*6/uL Low 4.50-5.90 [facility] Comment on above: Performed By: #### 2 4323-8 #### ERICA Tam ([id number]) [facility] ([facility]) [address] [place] [address] 52649 WBC (Bld) [#/Vol] 8.6 x10*3/uL Normal 4.4-11.[address] [facility] Comment on above: Performed By: #### 2 4323-8 #### ERICA Tam ([id number]) [facility] ([facility]) [address] [place] [address] 30182 Glucose Test strip manual (B ld) [Mass/Vol]on 10-17-2023 Glucose [Mass/Vol] 217 mg/dL High 74-99 [facility] Comment on above: Performed By: #### L IPIN #### ERICA Tam ([id number]) [facility] ([facility]) [address] [place] [address] Glucose [Mass/Vol] 271 mg/dL High [address] [place] [address] Comment on above: Performed By: #### 2 4323-8 #### ERICA ARREOLATZER L ([id number]) [facility] ([facility]) [address] [place] [address] Glucose [Mass/Vol] 189 mg/dL High [address] [place] [address] Comment on above: Performed By: #### 2 4323-8 #### ERICA RESTREPOMOTZER L ([id number]) [facility] ([facility]) [address] [place] [address] Glucose [Mass/Vol] 256 mg/dL High [address] [place] [address] Comment on above: Performed By: #### 2 4323-8 #### ERICA RESTREPOMOTZER L ([id number]) [facility] ([facility]) [address] [place] [address] 80552 Glucose [Mass/Vol] 176 mg/dL High [address] [place] [address] Comment on above: Performed By: #### 1 4979-9 #### ERICA RESTREPOMOTZER L ([id number]) [facility] ([facility]) [address] [place] [address] Heparin.unfractionatedon Heparin unfractionated Chromogenic method Qn (PPP) 0.3 IU/mL Normal See Comment Below for Therapeutic Ranges [facility] Comment on above: Order Comment: Obtai n 4 hours after any Heparin dosage change. Nursing to release order.The therapeutic reference range for UFH may be either 0.3-0.6 IU/mL or 0.3-0.7 IU/mL based on the clinical setting for anticoagulant therapy and the associated nomogram used. For Heparin dosing guidelines based on clinical scenario and Heparin Assay results, please refer to local Pharmacy and the [facility] Guidelines for Anticoagulation Therapy available on the [facility] intranet at: [email or web address] Performed By: #### 2 4323-8 #### ERICA Tam ([id number]) [facility] ([facility]) [address] [place] [address] 86477 Heparin unfractionated Chromogenic method Qn (PPP) 0.5 IU/mL Normal See Comment Below for Therapeutic Ranges [facility] Comment on above: Order Comment: Obtai n 4 hours after any Heparin dosage change. Nursing to release order.The therapeutic reference range for UFH may be either 0.3-0.6 IU/mL or 0.3-0.7 IU/mL based on the clinical setting for anticoagulant therapy and the associated nomogram used. For Heparin dosing guidelines based on clinical scenario and Heparin Assay results, please refer to local Pharmacy and the [facility] Guidelines for Anticoagulation Therapy available on the [facility] intranet at: [email or web address] Performed By: #### 2 4323-8 #### ERICA Tam ([id number]) [facility] ([facility]) [address] [place] [address] 88040 Heparin unfractionated Chromogenic method Qn (PPP) 0.2 IU/mL Normal See Comment Below for Therapeutic Ranges [facility] Comment on above: Order Comment: Prior to initiating heparin if not obtained in prior 48 hours. Nursing to release order. The APTT is no longer used for monitoring Unfractionated Heparin Therapy. For monitoring Heparin Therapy, use the Heparin Assay. Performed By: #### 1 4979-9 #### ERICA Tam ([id number]) [facility] ([facility]) [address] [place] [address] 05486 Magnesiumon 10-17-2023 Magnesium [Mass/Vol] 1.94 mg/dL Normal 1.60-2.40 [facility] Comment on above: Performed By: #### L IPIN #### ERICA Tam ([id number]) [facility] ([facility]) [address] [place] [address] 39955 Renal function 2000 panelon 10-17-2023 Albumin BCP dye [Mass/Vol] 3.1 g/dL Low 3.4-5.0 [facility] Comment on above: Performed By: #### L IPIN #### ERICA Tam ([id number]) [facility] ([facility]) [address] [place] [address] 40838 Anion gap [Moles/Vol] 9 mmol/L Low 10-20 [facility] Comment on above: Performed By: #### L IPIN #### ERICA Tam ([id number]) [facility] ([facility]) [address] [place] [address] 77981 Calcium [Mass/Vol] 8.2 mg/dL Low 8.6-10.6 [facility] Comment on above: Performed By: #### L IPIN #### ERICA Tam ([id number]) [facility] ([facility]) [address] [place] [address] 33266 Chloride [Moles/Vol] 104 mmol/L Normal 98-107 [facility] Comment on above: Performed By: #### L IPIN #### ERICA Tam ([id number]) [facility] ([facility]) [address] [place] [address] 62228 CO2 [Moles/Vol] 28 mmol/L Normal 21-32 [facility] Comment on above: Performed By: #### L IPIN #### ERICA Tam ([id number]) [facility] ([facility]) [address] [place] [address] 57331 Creatinine [Mass/Vol] 1.35 mg/dL High 0.50-1.30 [facility] Comment on above: Performed By: #### L IPIN #### ERICA Tam ([id number]) [facility] ([facility]) [address] [place] [address] 04487 Glomerular filtration rate/1.73 sq M.predicted 57 mL/min/1.73m*2 Low >60 [facility] Comment on above: Result Comment: Calc ulations of estimated GFR are performed using the 2020 CKD-EPI Study Refit equation without the race variable for the IDMS-Traceable creatinine methods. https://jasn.asnjournals.org/content//ASN.62429 00226 Performed By: #### L IPIN #### ERICA Tam ([id number]) [facility] ([facility]) [address] [place] [address] Glucose [Mass/Vol] 274 mg/dL High 74-99 [facility] Comment on above: Performed By: #### L IPIN #### ERICA Tam ([id number]) [facility] ([facility]) [address] [place] [address] 45275 Phosphate [Mass/Vol] 2.5 mg/dL Normal 2.5-4.9 [facility] Comment on above: Result Comment: The performance characteristics of phosphorus testing in heparinized plasma have been validated by the individual laboratory site where testing is performed. Testing on heparinized plasma is not approved by the FDA; however, such approval is not necessary. Performed By: #### L IPIN #### ERICA Tam ([id number]) [facility] ([facility]) [address] [place] [address] 17127 Potassium [Moles/Vol] 4.3 mmol/L Normal 3.5-5.3 [facility] Comment on above: Performed By: #### L IPIN #### ERICA Tam ([id number]) [facility] ([facility]) [address] [place] [address] 14082 Sodium [Moles/Vol] 137 mmol/L Normal 136-145 [facility] Comment on above: Performed By: #### L IPIN #### ERICA MCDONALD L ([id number]) [facility] ([facility]) [address] [place] [address] 34601 Urea nitrogen [Mass/Vol] 27 mg/dL High 6-23 [facility] Comment on above: Performed By: #### L IPIN #### ERICA MCDONALD L ([id number]) [facility] ([facility]) [address] [place] [address] 05826 VASC US ANKLE BRACHIAL INDEX (LUCIO) WITHOUT EXERCISEon 10-17-2023 VAS US ANKLE BRACHIAL INDEX (LUCIO) WITHOUT EXERCISE [address] [address] and Vascular Lab Report [facility] US ANKLE BRACHIAL INDEX (LUCIO) WITHOUT EXERCISE Patient Name: ITALIA ALLEN Angelina Physician: Myriam Nolan MD Study Date: 10/17/2023 Ordering [id number] RU Mina Physician: CUATE MRN/PID: [id number] Technologist: Sandy Smith [facility] Technologist 2: Date of /Age: 5 1955 years Gender: M Admission Status: Inpatient Location [facility] Performed: Diagnosis/ICD: Peripheral vascular disease, unspecified-I73.9 CPT Codes: 97480 Peripheral artery LUCIO Only CONCLUSIONS: Right Lower PVR: No evidence of arterial occlusive disease in the right lower extremity at rest. Normal digital perfusion noted. Multiphasic flow is noted in the right common femoral artery, right dorsalis pedis artery and right posterior tibial artery. Left Lower PVR: No evidence of arterial occlusive disease in the left lower extremity at rest. Normal digital perfusion noted. Multiphasic flow is noted in the left common femoral artery, left dorsalis pedis artery and left posterior tibial artery. Imaging & Doppler Findings: RIGHT Lower PVR Pressures Ratios Right Posterior Tibial (Ankle) 206 mmHg 1.33 Right Dorsalis Pedis (Ankle) 205 mmHg 1.32 Right Digit (Great Toe) 109 mmHg 0.70 LEFT Lower PVR Pressures Ratios Left Posterior Tibial (Ankle) 173 mmHg 1.12 Left Dorsalis Pedis (Ankle) 164 mmHg 1.06 Left Digit (Great Toe) 101 mmHg 0.65 Right Left Brachial Pressure 155 mmHg 149 mmHg Myriam Nolan MD Final Normal [facility] US CAROTID ARTERY DUPLE X BILATERALon 10-17-2023 [facility] US CAROTID ARTERY DUPLEX BILATERAL [address] [address] and Vascular Lab Report [facility] US CAROTID ARTERY DUPLEX BILATERAL Patient Name: ITALIA ALLEN Reading Physician: [id number] Marshal Nolan MD Study Date: 10/17/2023 Ordering [id number] RU Mina Physician: CUATE MRN/PID: [id number] Technologist: Gallito HARTMANN Technologist 2: Date of /Age: 5 1955 years Gender: M Admission Status: Inpatient Location [facility] Performed: Diagnosis/ICD: Encounter for preprocedural cardiovascular examination-Z01.810 Indication: Pre-Op CABG CPT Codes: 72248 Cerebrovascular Carotid Duplex scan complete Patient History CAD. CRITICAL RESULT Critical Result: Total occlusion of R ICA Notification called to Ru Elena MD on 10/17/2023 at 1:07:56 PM by Gallito HARTMANN. CONCLUSIONS: Right Carotid: Findings are consistent with an occlusion of the right internal carotid artery. Right external carotid artery appears patent with no evidence of stenosis. No evidence of hemodynamically significant stenosis of the right common carotid artery. The right vertebral artery is patent with antegrade flow. No evidence of hemodynamically significant stenosis in the right subclavian artery. Left Carotid: Findings are consistent with less than 50% stenosis of the left proximal internal carotid artery. Left external carotid artery appears patent with no evidence of stenosis. The left vertebral artery is patent with antegrade flow. No evidence of hemodynamically significant stenosis in the left subclavian artery. Imaging & Doppler Findings: Right Plaque Morph: The proximal right internal carotid artery demonstrates calcified and heterogenous plaque. The mid right internal carotid artery demonstrates heterogenous plaque. The distal right internal carotid artery demonstrates heterogenous plaque. The distal right common carotid artery demonstrates heterogenous plaque. Left Plaque Morph: The proximal left internal carotid artery demonstrates heterogenous and calcified plaque. The distal left common carotid artery demonstrates calcified and heterogenous plaque. Right Left PSV EDV PSV EDV 70 cm/s CCA P 85 cm/s 89 cm/s CCA D 98 cm/s 0 cm/s 0 cm/s ICA P 132 cm/s 39 cm/s 0 cm/s 0 cm/s ICA M 138 cm/s 29 cm/s 0 cm/s 0 cm/s ICA D 94 cm/s 31 cm/s 158 cm/s ECA 102 cm/s 61 cm/s 10 cm/s Vertebral 46 cm/s 13 cm/s 168 cm/s Subclavian 133 cm/s Right Left ICA/CCA Ratio 0.0 1.3 10226Octavio Nolan MD Final [facility] VAS US LOWER EXTREMITY VEIN MAPPING BILATERALon 10-17-2023 VAS US LOWER EXTREMITY VEIN MAPPING BILATERAL [place] [address] and Vascular Lab Report [facility] US LOWER EXTREMITY VEIN MAPPING BILATERAL Patient Name: ITALIA Alfaro Physician: [id number] Nolan MD Study Date: 10/17/2023 Ordering [id number] RU Mina Physician: CAUTE MRN/PID: [id number] Technologist: Gallito Marie [facility] Technologist 2: Date of /Age: 5 1955 years Gender: M Admission Status: Inpatient Location [facility] Performed: Diagnosis/ICD: Encounter for preprocedural cardiovascular examination-Z01.810 Indication: Pre-operative exam CPT Codes: 42798 Vein mapping complete Patient History CAD. CONCLUSIONS: Right Lower Vein Mapping: Right lower extremity vein: The right great saphenous vein appears widley patent with no evidence of thrombosis or fibrosis. Left Lower Vein Mapping: The left great saphenous vein and small saphenous vein appear widely patent with no evidence of thrombosis or fibrosis. Left lower extremity vein: The left great saphenous vein appears widley patent with no evidence of thrombosis or fibrosis. Imaging & Doppler Findings: Right Compress Thrombus Diam SFJ Yes None 5.5 mm Prox Thigh GSV Yes None 3.7 mm Mid Thigh GSV Yes None 3.5 mm Knee GSV Yes None 3.0 mm Prox Calf GSV Yes None 2.7 mm Mid Calf GSV Yes None 1.8 mm Dist Calf GSV Yes None 1.4 mm Left Compress Thrombus Diam SFJ Yes None 5.6 mm Prox Thigh GSV Yes None 3.4 mm Mid Thigh GSV Yes None 2.9 mm Knee GSV Yes None 3.6 mm Prox Calf GSV Yes None 2.7 mm Mid Calf GSV Yes None 2.0 mm Dist Calf GSV Yes None 1.0 mm [id number] Marshal Nolan MD Final Normal [facility] CBC panel Auto (Bld)on 10-15 Erythrocyte distribution width (RBC) [Ratio] 14.4 % Normal 11.5-14.5 [facility] Comment on above: Performed By: #### 1 4979-9 #### ERICA Tam ([id number]) [facility] ([facility]) [address] [place] [address] 33033 Hematocrit (Bld) [Volume fraction] 33.4 % Low 41.0-52.0 [facility] Comment on above: Performed By: #### 1 4979-9 #### ERICA Tam ([id number]) [facility] ([facility]) [address] [place] [address] 81766 Hemoglobin (Bld) [Mass/Vol] 10.5 g/dL Low 13.5-17.5 [facility] Comment on above: Performed By: #### 1 4979-9 #### ERICA Tam (93143) [facility] ([facility]) [address] [place] [address] 96458 MCH (RBC) [Entitic mass] 28.5 pg Normal 26.0-34.0 [facility] Comment on above: Performed By: #### 1 4979-9 #### ERICA Tam ([id number]) [facility] ([facility]) [address] [place] [address] 87578 MCHC (RBC) [Mass/Vol] 31.4 g/dL Low 32.0-36.0 [facility] Comment on above: Performed By: #### 1 4979-9 #### ERICA Tam ([id number]) [facility] ([facility]) [address] [place] [address] 31994 MCV (RBC) [Entitic vol] 91 fL Normal 80-100 [facility] Comment on above: Performed By: #### 1 4979-9 #### ERICA Tam ([id number]) [facility] ([facility]) [address] [place] [address] 65839 Nucleated RBC/100 WBC (Bld) [Ratio] 0.0 /100 WBCs Normal 0.0-0.0 [facility] Comment on above: Performed By: #### 1 4979-9 #### ERICA Tam ([id number]) [facility] ([facility]) [address] [place] [address] 59498 Platelets (Bld) [#/Vol] 283 x10*3/uL Normal 150-450 [facility] Comment on above: Performed By: #### 1 4979-9 #### ERICA Tam ([id number]) [facility] ([facility]) [address] [place] [address] 39169 RBC (Bld) [#/Vol] 3.69 x10*6/uL Low 4.50-5.90 [facility] Comment on above: Performed By: #### 1 4979-9 #### ERICA Tam ([id number]) [facility] ([facility]) [address] [place] [address] 19784 WBC (Bld) [#/Vol] 8.2 x10*3/uL Normal 4.4-11.[address] [facility] Comment on above: Performed By: #### 1 4979-9 #### ERICA Tam (19892) [facility] ([facility]) [address] [place] [address] 73457 Erythrocyte distribution width (RBC) [Ratio] 14.6 % High 11.5-14.5 [facility] Comment on above: Performed By: #### 5 8410-2 #### ERICA Tam (93614) [facility] ([facility]) [address] [place] [address] 22888 Hematocrit (Bld) [Volume fraction] 35.2 % Low 41.0-52.0 [facility] Comment on above: Performed By: #### 5 8410-2 #### ERICA Tam (78072) [facility] ([facility]) [address] [place] [address] 51252 Hemoglobin (Bld) [Mass/Vol] 11.4 g/dL Low 13.5-17.5 [facility] Comment on above: Performed By: #### 5 8410-2 #### ERICA Tam (79778) [facility] ([facility]) [address] [place] [address] 89224 MCH (RBC) [Entitic mass] 29.3 pg Normal 26.0-34.0 [facility] Comment on above: Performed By: #### 5 8410-2 #### ERICA Tam ([id number]) [facility] ([facility]) [address] [place] [address] 13209 MCHC (RBC) [Mass/Vol] 32.4 g/dL Normal 32.0-36.0 [facility] Comment on above: Performed By: #### 5 8410-2 #### ERICA Tam ([id number]) [facility] ([facility]) [address] [place] [address] 27217 MCV (RBC) [Entitic vol] 91 fL Normal 80-100 [facility] Comment on above: Performed By: #### 5 8410-2 #### ERICA Tam ([id number]) [facility] ([facility]) [address] [place] [address] 52427 Nucleated RBC/100 WBC (Bld) [Ratio] 0.0 /100 WBCs Normal 0.0-0.0 [facility] Comment on above: Performed By: #### 5 8410-2 #### ERICA Tam ([id number]) [facility] ([facility]) [address] [place] [address] 67847 Platelets (Bld) [#/Vol] 285 x10*3/uL Normal 150-450 [facility] Comment on above: Performed By: #### 5 8410-2 #### ERICA Tam ([id number]) [facility] ([facility]) [address] [place] [address] 27027 RBC (Bld) [#/Vol] 3.89 x10*6/uL Low 4.50-5.90 [facility] Comment on above: Performed By: #### 5 8410-2 #### ERICA Tam ([id number]) [facility] ([facility]) [address] [place] [address] 10665 WBC (Bld) [#/Vol] 9.3 x10*3/uL Normal 4.4-11.[address] [facility] Comment on above: Performed By: #### 5 8410-2 #### ERICA Tam (08156) [facility] ([facility]) [address] [place] [address] 66141 Coagulation surface inducedo n 10-16-2023 aPTT Coag (PPP) [Time] 30 s Normal 27-38 [facility] Comment on above: Order Comment: Prior to initiating heparin if not obtained in prior 48 hours. Nursing to release order. The APTT is no longer used for monitoring Unfractionated Heparin Therapy. For monitoring Heparin Therapy, use the Heparin Assay. Performed By: #### 1 4979-9 #### ERICA Tam ([id number]) [facility] ([facility]) [address] [place] [address] 61246 Coagulation tissue factor in ducedon 10-16-2023 PT Coag (PPP) [Time] 12.5 s Normal 9.8-12.8 [facility] Comment on above: Order Comment: If val monroe has not had PT + INR in the last 24 hours. Nursing to release order. Performed By: #### 5 902-2 #### ERICA Tam ([id number]) [facility] ([facility]) [address] [place] [address] 73917 Cobalaminson 10-16-2023 Cobalamin (Vitamin B12) [Mass/Vol] 201 pg/mL Low 211-911 [facility] Comment on above: Performed By: #### 5 902-2 #### ERICA Tam ([id number]) [facility] ([facility]) [address] [place] [address] 28473 Comprehensive metabolic 2000 panelon 10-16-2023 Albumin BCP dye [Mass/Vol] 3.3 g/dL Low 3.4-5.0 [facility] Comment on above: Performed By: #### 2 4323-8 #### ERICA MCDONALD L ([id number]) [facility] ([facility]) [address] [place] [address] 80056 ALP [Catalytic activity/Vol] 58 U/L Normal 33-136 [facility] Comment on above: Performed By: #### 2 4323-8 #### ERICA Tam (76314) [facility] ([facility]) [address] [place] [address] 92584 ALT With P-5'-P [Catalytic activity/Vol] 15 U/L Normal 10-52 [facility] Comment on above: Result Comment: Criselda ents treated with Sulfasalazine may generate falsely decreased results for ALT. Performed By: #### 2 4323-8 #### ERICA Tam ([id number]) [facility] ([facility]) [address] [place] [address] 89367 Anion gap [Moles/Vol] 13 mmol/L Normal 10-20 [facility] Comment on above: Performed By: #### 2 4323-8 #### ERICA Tam ([id number]) [facility] ([facility]) [address] [place] [address] 58108 AST With P-5'-P [Catalytic activity/Vol] 14 U/L Normal 9-39 [facility] Comment on above: Result Comment: MILD HEMOLYSIS DETECTED. The result may be falsely elevated due to hemolysis or other interferents. Clinical correlation is recommended. Repeat testing may be considered. Performed By: #### 2 4323-8 #### ERICA MCDONALD L ([id number]) [facility] ([facility]) [address] [place] [address] 42723 Bilirubin [Mass/Vol] 0.4 mg/dL Normal 0.0-1.2 [facility] Comment on above: Performed By: #### 2 4323-8 #### ERICA Tam ([id number]) [facility] ([facility]) [address] [place] [address] Calcium [Mass/Vol] 8.3 mg/dL Low 8.6-10.6 [facility] Comment on above: Performed By: #### 2 4323-8 #### ERICA MCDONALD L ([id number]) [facility] ([facility]) [address] [place] [address] Chloride [Moles/Vol] 102 mmol/L Normal 98-107 [facility] Comment on above: Performed By: #### 2 4323-8 #### ERICA MCDONALD L ([id number]) [facility] ([facility]) [address] [place] [address] CO2 [Moles/Vol] 26 mmol/L Normal 21-32 [facility] Comment on above: Performed By: #### 2 4323-8 #### ERICA MCDONALD L ([id number]) [facility] ([facility]) [address] [place] [address] Creatinine [Mass/Vol] 1.64 mg/dL High 0.50-1.30 [facility] Comment on above: Performed By: #### 2 4323-8 #### ERICA MCDONALD L ([id number]) [facility] ([facility]) [address] [place] [address] 24270 Glomerular filtration rate/1.73 sq M.predicted 45 mL/min/1.73m*2 Low >60 [facility] Comment on above: Result Comment: Calc ulations of estimated GFR are performed using the 2020 CKD-EPI Study Refit equation without the race variable for the IDMS-Traceable creatinine methods. https://jasn.asnjournals.org/content//ASN.53554 93779 Performed By: #### 2 4323-8 #### ERICA Tam ([id number]) [facility] ([facility]) [address] [place] [address] Glucose [Mass/Vol] 173 mg/dL High 74-99 [facility] Comment on above: Performed By: #### 2 4323-8 #### ERICA MCDONALD L ([id number]) [facility] ([facility]) [address] [place] [address] 22026 Potassium [Moles/Vol] 4.3 mmol/L Normal 3.5-5.3 [facility] Comment on above: Result Comment: MILD HEMOLYSIS DETECTED. The result may be falsely elevated due to hemolysis or other interferents. Clinical correlation is recommended. Repeat testing may be considered. Performed By: #### 2 4323-8 #### ERICA Tam ([id number]) [facility] ([facility]) [address] [place] [address] 18220 Protein [Mass/Vol] 5.6 g/dL Low 6.4-8.2 [facility] Comment on above: Performed By: #### 2 4323-8 #### ERICA Tam ([id number]) [facility] ([facility]) [address] [place] [address] 92989 Sodium [Moles/Vol] 137 mmol/L Normal 136-145 [facility] Comment on above: Performed By: #### 2 4323-8 #### ERICA Tam ([id number]) [facility] ([facility]) [address] [place] [address] 13602 Urea nitrogen [Mass/Vol] 33 mg/dL High 6-23 [facility] Comment on above: Performed By: #### 2 4323-8 #### ERICA MCDONALD L ([id number]) [facility] ([facility]) [address] [place] [address] 65853 ECG 12-LEADon 10-16-2023 ECG 12-LEAD Ventricular Rate 85 Atrial Rate 85 P-R Interval 196 QRS Duration 100 Q-T Interval 392 QTC Calculation(Bazett) 466 P Sumner 40 R Sumner 54 T Sumner 51 QRS Count 14 Q Onset 222 P Onset 124 P Offset 185 T Offset 418 QTC Fredericia 440 Diagnosis Normal sinus rhythm Prolonged QT Abnormal ECG No previous ECGs available Confirmed by Mark Kennedy ([id number]) on 10/16/2023 5:14:12 PM Normal [facility] Ferritinon 10-16-2023 Ferritin [Mass/Vol] 184 ng/mL Normal 20-[address] [facility] Comment on above: Performed By: #### 5 902-2 #### ERICA Tam ([id number]) [facility] ([facility]) [address] [place] [address] 87464 Folateon 10-16-2023 Folate [Mass/Vol] 10.0 ng/mL Normal >5.0 [facility] Comment on above: Order Comment: If val monroe has not had PT + INR in the last 24 hours. Nursing to release order. Performed By: #### 5 902-2 #### ERICA Tam ([id number]) [facility] ([facility]) [address] [place] [address] 66161 Gas and Carbon monoxide pane l (BldA)on 10-16-2023 Base excess Calc (Bld) [Moles/Vol] -0.5000 mmol/L Normal -2.0-3.0 [facility] Comment on above: Performed By: #### 1 4979-9 #### ERICA Tam ([id number]) [facility] ([facility]) [address] [place] [address] 34255 Carboxyhemoglobin (BldA) [Mass fraction] 3.1 % Normal [facility] Comment on above: Result Comment: Ref Values Non-Smokers 0.5-1.5% Smokers 0.5-10.0% Performed By: #### 1 4979-9 #### ERICA Tam ([id number]) [facility] ([facility]) [address] [place] [address] 01188 CO2 (Bld) [Partial pressure] 39 mm Hg Normal 38-42 [facility] Comment on above: Performed By: #### 1 4979-9 #### ERICA Tam ([id number]) [facility] ([facility]) [address] [place] [address] Deoxyhemoglobin (BldA) [Mass fraction] 4.8 % Normal 0.0-5.0 [facility] Comment on above: Performed By: #### 1 4979-9 #### ERICA Tam ([id number]) [facility] ([facility]) [address] [place] [address] HCO3 (Bld) [Moles/Vol] 24.2 mmol/L Normal 22.0-26.0 [facility] Comment on above: Performed By: #### 1 4979-9 #### ERICA Tam ([id number]) [facility] ([facility]) [address] [place] [address] 12595 Hemoglobin (Bld) [Mass/Vol] 11.3 g/dL Low 13.5-17.5 [facility] Comment on above: Performed By: #### 1 4979-9 #### ERICA Tam ([id number]) [facility] ([facility]) [address] [place] [address] 01275 Methemoglobin (BldA) [Mass fraction] 0.0 % Normal 0.0-1.5 [facility] Comment on above: Performed By: #### 1 4979-9 #### ERICA Tam ([id number]) [facility] ([facility]) [address] [place] [address] 96819 Oxygen (Bld) [Partial pressure] 67 mm Hg Low 85-95 [facility] Comment on above: Performed By: #### 1 4979-9 #### ERICA Tam ([id number]) [facility] ([facility]) [address] [place] [address] 50722 Oxyhemoglobin (BldA) [Mass fraction] 92.2 % Low 94.0-98.0 [facility] Comment on above: Performed By: #### 1 4979-9 #### ERICA Tam ([id number]) [facility] ([facility]) [address] [place] [address] 43376 pH (Bld) 7.40 [pH] Normal 7.38-7.42 [facility] Comment on above: Performed By: #### 1 4979-9 #### ERICA Tam ([id number]) [facility] ([facility]) [address] [place] [address] 58106 Glucose Test strip manual (B ld) [Mass/Vol]on 10-16-2023 Glucose [Mass/Vol] 151 mg/dL High [address] [place] [address] Comment on above: Performed By: #### 1 4979-9 #### REICA Tam ([id number]) [facility] ([facility]) [address] [place] [address] 60808 Glucose [Mass/Vol] 261 mg/dL High [address] [place] [address] Comment on above: Performed By: #### 1 4979-9 #### ERICA Tam ([id number]) [facility] ([facility]) [address] [place] [address] 74543 Glucose [Mass/Vol] 170 mg/dL High [address] [place] [address] Comment on above: Performed By: #### 5 902-2 #### ERICA Tam ([id number]) [facility] ([facility]) [address] [place] [address] 11661 HbA1c (Bld) [Mass fraction]o n 10-16-2023 Average glucose Estimated from glycated hemoglobin (Bld) [Mass/Vol] 148 mg/dL Normal Not Established [facility] Comment on above: Order Comment: If val monroe has not had PT + INR in the last 24 hours. Nursing to release order. Performed By: #### 5 902-2 #### ERICA Tam ([id number]) [facility] ([facility]) [address] [place] [address] 82611 Hemoglobin A1c/Hemoglobin.to guero 10-16-2023 HbA1c (Bld) [Mass fraction] 6.8 % High see below [facility] Comment on above: Order Comment: If val monroe has not had PT + INR in the last 24 hours. Nursing to release order. Performed By: #### 5 902-2 #### ERICA ARREOLATZER L ([id number]) [facility] ([facility]) [address] [place] [address] 18185 Heparin.unfractionatedon Heparin unfractionated Chromogenic method Qn (PPP) 0.3 IU/mL Normal See Comment Below for Therapeutic Ranges [facility] Comment on above: Order Comment: Prior to initiating heparin if not obtained in prior 48 hours. Nursing to release order. The APTT is no longer used for monitoring Unfractionated Heparin Therapy. For monitoring Heparin Therapy, use the Heparin Assay. Performed By: #### 1 4979-9 #### ERICA Tam ([id number]) [facility] ([facility]) [address] [place] [address] 84482 Heparin unfractionated Chromogenic method Qn (PPP) 0.2 IU/mL Normal See Comment Below for Therapeutic Ranges [facility] Comment on above: Order Comment: Prior to initiating heparin if not obtained in prior 48 hours. Nursing to release order. The APTT is no longer used for monitoring Unfractionated Heparin Therapy. For monitoring Heparin Therapy, use the Heparin Assay. Performed By: #### 1 4979-9 #### ERICA RESTREPOMOTZER Yonatan ([id number]) [facility] ([facility]) [address] [place] [address] 69057 Heparin unfractionated Chromogenic method Qn (PPP) 0.1 IU/mL Normal See Comment Below for Therapeutic Ranges [facility] Comment on above: Order Comment: If val yadiraalexandra has not had PT + INR in the last 24 hours. Nursing to release order. Performed By: #### 5 902-2 #### ERICA ARREOLATZER L ([id number]) [facility] ([facility]) [address] [place] [address] 09282 Heparin unfractionated Chromogenic method Qn (PPP) 0.1 IU/mL Normal See Comment Below for Therapeutic Ranges [facility] Comment on above: Order Comment: Obtai n 4 hours after initiation of heparin infusion. Nursing to release order. The therapeutic reference range for UFH may be either 0.3-0.6 IU/mL or 0.3-0.7 IU/mL based on the clinical setting for anticoagulant therapy and the associated nomogram used. For Heparin dosing guidelines based on clinical scenario and Heparin Assay results, please refer to local Pharmacy and the [facility] Guidelines for Anticoagulation Therapy available on the [facility] intranet at: [email or web address] Performed By: #### 3 274-8 #### ERICA Tam ([id number]) [facility] ([facility]) [address] [place] [address] 94228 Iron and Iron binding capaci ty panelon 10-16-2023 Iron [Mass/Vol] 33 ug/dL Low 35-150 [facility] Comment on above: Result Comment: MILD HEMOLYSIS DETECTED. The result may be falsely elevated due to hemolysis or other interferents. Clinical correlation is recommended. Repeat testing may be considered. Performed By: #### 5 902-2 #### ERICA Tam ([id number]) [facility] ([facility]) [address] [place] [address] 58040 Iron binding capacity [Mass/Vol] 285 ug/dL Normal 240-445 [facility] Comment on above: Performed By: #### 5 902-2 #### ERICA Tam ([id number]) [facility] ([facility]) [address] [place] [address] 62741 Iron binding capacity.unsaturated [Mass/Vol] 252 ug/dL Normal 110-370 [facility] Comment on above: Performed By: #### 5 902-2 #### ERICA Tam ([id number]) [facility] ([facility]) [address] [place] [address] 77472 Iron saturation [Mass fraction] 12 % Low 25-45 [facility] Comment on above: Performed By: #### 5 902-2 #### ERICA Tam ([id number]) [facility] ([facility]) [address] [place] [address] 26298 LIPID PANEL NON-FASTINGon Cholesterol [Mass/Vol] 114 mg/dL Normal 0-199 [facility] Comment on above: Result Comment: Age Desirable Borderline High High 0-19 Y 0 - 169 170 - 199 >/= 200 20-24 Y 0 - 189 190 - 224 >/= 225 >24 Y 0 - 199 200 - 239 >/= 240 All ranges are based on fasting samples. Specific therapeutic targets will vary based on patient-specific cardiac risk. Pediatric guidelines reference:Pediatrics 2011, 128(S5).Adult guidelines reference: NCEP ATPIII Guidelines,JUIDTH 2001, 258:2486-97 Venipuncture immediately after or during the administration of Metamizole may lead to falsely low results. Testing should be performed immediately prior to Metamizole dosing. Performed By: #### L IPIN #### ERICA Tam ([id number]) [facility] ([facility]) [address] [place] [address] 96891 Cholesterol in HDL [Mass/Vol] 25.8 mg/dL Normal [facility] Comment on above: Result Comment: Age Very Low Low Normal High 0-19 Y < 35 < 40 40-45 ---- 20-24 Y ---- < 40 >45 ---- >24 Y ---- < 40 40-60 >60 Performed By: #### L IPIN #### ERICA Tam ([id number]) [facility] ([facility]) [address] [place] [address] 04139 CHOLESTEROL/HDL RATIO 4.4 Normal [facility] Comment on above: Result Comment: Ref Values Desirable < 3.4 High Risk > 5.0 Performed By: #### L IPIN #### ERICA Tam ([id number]) [facility] ([facility]) [address] [place] [address] 83004 NON-HDL CHOLESTEROL 88 mg/dL Normal 0-[address] [facility] Comment on above: Result Comment: Age Desiable Borderline High High Very High 0-19 Y 0 - 119 120 - 144 >/= 145 >/= 160 20-24 Y 0 - 149 150 - 189 >/= 190 ---- >24 Y 30 MG/DL ABOVE LDL CHOLESTEROL GOAL Performed By: #### L IPIN #### ERICA Tam ([id number]) [facility] ([facility]) [address] [place] [address] 96277 Magnesiumon 10-16-2023 Magnesium [Mass/Vol] 1.84 mg/dL Normal 1.60-2.40 [facility] Comment on above: Performed By: #### 1 4979-9 #### ERICA Tam ([id number]) [facility] ([facility]) [address] [place] [address] 20615 Natriuretic peptide B [Mass/ Vol]on 10-16-2023 Natriuretic peptide B (Bld) [Mass/Vol] 88 pg/mL Normal 0-99 [facility] Comment on above: Order Comment: If val monroe has not had PT + INR in the last 24 hours. Nursing to release order. Performed By: #### 5 902-2 #### ERICA Tam ([id number]) [facility] ([facility]) [address] [place] [address] 18953 PT Coag (PPP) [Time]on 10-15 INR Coag (PPP) [Relative time] 1.1 Normal 0.9-1.1 [facility] Comment on above: Order Comment: If val monroe has not had PT + INR in the last 24 hours. Nursing to release order. Performed By: #### 5 902-2 #### ERICA Tam ([id number]) [facility] ([facility]) [address] [place] [address] 27840 Platelets Auto (Bld) [#/Vol] on 10-16-2023 Platelets (Bld) [#/Vol] 276 x10*3/uL Normal 150-450 [facility] Comment on above: Order Comment: Basel ine platelet count before any heparin given. May discontinue if platelet count already obtained today, or if heparin already administered. Performed By: #### 7 77-3 #### ERICA Tam ([id number]) [facility] ([facility]) [address] [place] [address] 97105 Renal function 2000 panelon 10-16-2023 Albumin BCP dye [Mass/Vol] 3.1 g/dL Low 3.4-5.0 [facility] Comment on above: Performed By: #### 1 4979-9 #### ERICA MCDONALD L ([id number]) [facility] ([facility]) [address] [place] [address] 74386 Anion gap [Moles/Vol] 15 mmol/L Normal 10-20 [facility] Comment on above: Performed By: #### 1 4979-9 #### ERICA MCDONALD L ([id number]) [facility] ([facility]) [address] [place] [address] 53753 Calcium [Mass/Vol] 8.2 mg/dL Low 8.6-10.6 [facility] Comment on above: Performed By: #### 1 4979-9 #### ERICA MCDONALD L ([id number]) [facility] ([facility]) [address] [place] [address] 27049 Chloride [Moles/Vol] 103 mmol/L Normal 98-107 [facility] Comment on above: Performed By: #### 1 4979-9 #### ERICA RESTREPOMOTZER L ([id number]) [facility] ([facility]) [address] [place] [address] 45273 CO2 [Moles/Vol] 24 mmol/L Normal 21-32 [facility] Comment on above: Performed By: #### 1 4979-9 #### ERICA MCDONALD L ([id number]) [facility] ([facility]) [address] [place] [address] 82003 Creatinine [Mass/Vol] 1.52 mg/dL High 0.50-1.30 [facility] Comment on above: Performed By: #### 1 4979-9 #### ERICA RESTREPOMOTZER L ([id number]) [facility] ([facility]) [address] [place] [address] 74187 Glomerular filtration rate/1.73 sq M.predicted 49 mL/min/1.73m*2 Low >60 [facility] Comment on above: Result Comment: Calc ulations of estimated GFR are performed using the 2020 CKD-EPI Study Refit equation without the race variable for the IDMS-Traceable creatinine methods. https://jasn.asnjournals.org/content//ASN.38580 07465 Performed By: #### 1 4979-9 #### ERICA Tam ([id number]) [facility] ([facility]) [address] [place] [address] 74827 Glucose [Mass/Vol] 229 mg/dL High 74-99 [facility] Comment on above: Performed By: #### 1 4979-9 #### ERICA Tam ([id number]) [facility] ([facility]) [address] [place] [address] 28447 Phosphate [Mass/Vol] 3.1 mg/dL Normal 2.5-4.9 [facility] Comment on above: Result Comment: The performance characteristics of phosphorus testing in heparinized plasma have been validated by the individual laboratory site where testing is performed. Testing on heparinized plasma is not approved by the FDA; however, such approval is not necessary. Performed By: #### 1 4979-9 #### ERICA Tam ([id number]) [facility] ([facility]) [address] [place] [address] 79243 Potassium [Moles/Vol] 4.1 mmol/L Normal 3.5-5.3 [facility] Comment on above: Performed By: #### 1 4979-9 #### ERICA MCDONALD L ([id number]) [facility] ([facility]) [address] [place] [address] 17471 Sodium [Moles/Vol] 138 mmol/L Normal 136-145 [facility] Comment on above: Performed By: #### 1 4979-9 #### ERICA MCDONALD L ([id number]) [facility] ([facility]) [address] [place] [address] 71972 Urea nitrogen [Mass/Vol] 32 mg/dL High 6-23 [facility] Comment on above: Performed By: #### 1 4979-9 #### ERICA Tam ([id number]) [facility] ([facility]) [address] [place] [address] Staphylococcus aureus.methic illin resistant isolateon 10-16-2023 MRSA isol Org specific cx Ql (Nose) Test: Staphylococcus aureus/MRSA colonization, Culture Specimen Source: Anterior Nares Specimen Type: Swab Specimen Date: 10/16/2023 1023 Result Date: 10/17/2023 1257 Result Status: Final result Abnormal: No Resulting Lab: [facility] [address] [place] [address] CULTURE No Staphylococcus aureus isolated Normal [facility] Comment on above: Performed By: #### 2 4323-8 #### ERICA Tam ([id number]) [facility] ([facility]) [address] [place] [address] TSH WITH REFLEX TO FREE T4 I F ABNORMALon 10-16-2023 TSH Qn 6.30 m[IU]/L High 0.44-3.98 [facility] Comment on above: Order Comment: TSH t esting is performed using different testing methodology at [facility] than at other [facility]. Direct result comparisons should only be made within the same method. Performed By: #### T GRAHAMS #### ERICA Tam ([id number]) [facility] ([facility]) [address] [place] [address] Thyroxine.freeon 10-16-2023 Free T4 [Mass/Vol] 1.20 ng/dL Normal 0.78-1.48 [facility] Comment on above: Order Comment: If val monroe has not had PT + INR in the last 24 hours. Nursing to release order. Performed By: #### 5 902-2 #### ERICA Tam ([id number]) [facility] ([facility]) [address] [place] [address] Troponin I.cardiac panelon 0 10-16-2023 Tropinin I.cardiac panel High sensitivity method 916 ng/L Critically high 0-53 [facility] Comment on above: Order Comment: If val monroe has not had PT + INR in the last 24 hours. Nursing to release order. Performed By: #### 5 902-2 #### ERICA Tam ([id number]) [facility] ([facility]) [address] [place] [address] 90222 Urinalysis complete W Reflex Culture panel (U)on 10-16-2023 Appearance (U) Clear Normal Clear [facility] Comment on above: Performed By: #### 5 8077-9 #### ERICA MCDONALD L ([id number]) [facility] ([facility]) [address] [place] [address] 05944 Bilirubin (U) [Mass/Vol] Negative Normal NEGATIVE [facility] Comment on above: Performed By: #### 5 8077-9 #### ERICA MCDONALD L ([id number]) [facility] ([facility]) [address] [place] [address] 74196 Color (U) Light-Yellow Normal Light-Yellow , Yellow, Dark-Yellow [facility] Comment on above: Performed By: #### 5 8077-9 #### ERICA MCDONALD L ([id number]) [facility] ([facility]) [address] [place] [address] 80345 Glucose Auto test strip (U) [Mass/Vol] 50 (TRACE) Abnormal Normal [facility] Comment on above: Performed By: #### 5 8077-9 #### ERICA MCDONALD L ([id number]) [facility] ([facility]) [address] [place] [address] 22634 Ketones (U) [Mass/Vol] Negative Normal NEGATIVE [facility] Comment on above: Performed By: #### 5 8077-9 #### ERICA MCDONALD L ([id number]) [facility] ([facility]) [address] [place] [address] 03484 Leukocyte esterase Auto test strip Ql (U) Negative Normal NEGATIVE [facility] Comment on above: Performed By: #### 5 8077-9 #### ERICA RESTREPOMOJOELLEER L ([id number]) [facility] ([facility]) [address] [place] [address] 60285 Mucus Auto (Urine sed) [#/Area] FEW Normal Reference range not established. [facility] Comment on above: Performed By: #### 5 8077-9 #### ERICA Tam ([id number]) [facility] ([facility]) [address] [place] [address] Nitrite Auto test strip Ql (U) Negative Normal NEGATIVE [facility] Comment on above: Performed By: #### 5 8077-9 #### ERICA Tam ([id number]) [facility] ([facility]) [address] [place] [address] 24695 pH (U) 5.0 [pH] Normal 5.0, 5.5, 6.0, 6.5, 7.0, 7.5, 8.0 [facility] Comment on above: Performed By: #### 5 8077-9 #### ERICA Tam ([id number]) [facility] ([facility]) [address] [place] [address] 07331 Protein (U) [Mass/Vol] 10 (TRACE) Normal NEGAT LE, 10 (TRACE), 20 (TRACE) [facility] Comment on above: Performed By: #### 5 8077-9 #### ERICA Tam ([id number]) [facility] ([facility]) [address] [place] [address] 59085 RBC (U) [#/Vol] Negative Normal NEGATIVE [facility] Comment on above: Performed By: #### 5 8077-9 #### ERICA Tam ([id number]) [facility] ([facility]) [address] [place] [address] 47339 RBC Auto (Urine sed) [#/Area] NONE Normal NONE, 1-2, 3-5 [facility] Comment on above: Performed By: #### 5 8077-9 #### ERICA Tam ([id number]) [facility] ([facility]) [address] [place] [address] Specific gravity (U) [Rel density] 1.026 Normal 1.005-1.035 [facility] Comment on above: Performed By: #### 5 8077-9 #### ERICA Tam ([id number]) [facility] ([facility]) [address] [place] [address] Urobilinogen (U) [Mass/Vol] Normal Normal Normal [facility] Comment on above: Performed By: #### 5 8077-9 #### ERICA Tam ([id number]) [facility] ([facility]) [address] [place] [address] 10645 WBC Auto (Urine sed) [#/Area] 1-5 Normal 1-5, NONE [facility] Comment on above: Performed By: #### 5 8077-9 #### ERICA Tam ([id number]) [facility] ([facility]) [address] [place] [address] 29946 XR CHEST 2 VIEWSon XR CHEST 2 VIEWS Interpreted By: Rex Lambert, STUDY: XR CHEST 2 VIEWS; 10/16/2023 2:01 pm INDICATION: Signs/Symptoms:CABG evaluation. COMPARISON: None. ACCESSION NUMBER(S): [id number] ORDERING CLINICIAN: CATIA PATTON FINDINGS: CARDIOMEDIASTINAL SILHOUETTE: Cardiomegaly versus pericardial effusion. Right hilar calcifications. LUNGS: Low lung volumes with perihilar bibasilar atelectasis/effusions. ABDOMEN: No remarkable upper abdominal findings. BONES: No acute osseous changes. IMPRESSION: 1. Cardiomegaly with pulmonary edema and correlate with cardiac and fluid status. Signed by: Rex Ballesteros 10/18/2023 7:12 AM Dictation workstation: [id number] Normal [facility] Activated partial thrombopla stin time (aPTT) in platelet poor plasma by coagulation aOrdered By: Ann Plata on 10-15-2023 aPTT Coag (PPP) [Time] 45.5 s High 25.1-36.5 [facility] Comment on above: A hematocrit value g reater than 55% may lead to inaccurate results in coagulation testing. Patients having hematocrit values >55% require a special collection tube for coagulation studies. Please contact the laboratory at [phone] for redraw instructions. Alanine aminotransferase [En zymatic activity/volume] in Serum or PlasmaOrdered By: Alondra Gonzales on 10-15-2023 ALT [Catalytic activity/Vol] 17 U/L Normal 7-52 [facility] Comment on above: Performed By: #### G LULS #### Point of Care testing , Albumin [Mass/volume] in Ser um or Plasma by Bromocresol green (BCG) dye binding methoOrdered By: Alondra Gonzales on 10-15-2023 Albumin BCG dye [Mass/Vol] 3.4 g/dL Low 3.5-5.7 [facility] Alkaline phosphatase [Enzyma tic activity/volume] in Serum or PlasmaOrdered By: Alondra Gonzales on 10-15-2023 ALP [Catalytic activity/Vol] 62 U/L Normal 34-104 [facility] Comment on above: Performed By: #### G LULS #### Point of Care testing , Aspartate aminotransferase [ Enzymatic activity/volume] in Serum or PlasmaOrdered By: Alondra Gonzales on 10-15-2023 AST [Catalytic activity/Vol] 16 U/L Normal 13-39 [facility] Comment on above: Performed By: #### G LULS #### Point of Care testing , Automated basophil %Ordered By: Alondra Gonzales on 10-15-2023 Basophils/100 WBC (Bld) 1.0 % Normal . [facility] Comment on above: Performed By: #### C BC #### [address] Automated basophil countOrde red By: Alondra Gonzales on 10-15-2023 Basophils (Bld) [#/Vol] 0.1 10*3/uL Normal 0.0-0.2 [facility] Comment on above: Result Comment: PERF ORMED BY: [address] [place] [address] PATHOLOGIST LOG CLERK WOLFGANG JOHNSON M.D. Performed By: #### C BC #### [facility] [address] [place] [address] Automated blood monocyte cou ntOrdered By: Alondra Gonzales on 10-15-2023 Monocytes (Bld) [#/Vol] 0.9 10*3/uL High 0.0-0.8 [facility] Comment on above: Performed By: #### C BC #### [address] Automated eosinophil %Ordere d By: Alondra Gonzales on 10-15-2023 Eosinophils/100 WBC (Bld) 3.7 % Normal . [facility] Comment on above: Performed By: #### C BC #### [address] Automated eosinophil countOr dered By: Alondra Gonzales on 10-15-2023 Eosinophils (Bld) [#/Vol] 0.4 10*3/uL Normal 0.0-0.45 [facility] Comment on above: Performed By: #### C BC #### [address] Automated monocyte %Ordered By: Alondra Gonzales on 10-15-2023 Monocytes/100 WBC (Bld) 9.3 % Normal . [facility] Comment on above: Performed By: #### C BC #### [address] Automated neutrophil %Ordere d By: Alondra Gonzales on 10-15-2023 Neutrophils/100 WBC (Bld) 74.1 % Normal . [facility] Comment on above: Performed By: #### C BC #### [address] Bilirubin.total [Mass/volume ] in Serum or PlasmaOrdered By: Alondra Gonzales on 10-15-2023 Bilirubin [Mass/Vol] 0.4 mg/dL Normal 0.3-1.0 [facility] Comment on above: Performed By: #### G LULS #### Point of Care testing , Calcium [Mass/volume] in Ser um or PlasmaOrdered By: Alondra Gonzales on 10-15-2023 Calcium [Mass/Vol] 8.1 mg/dL Low 8.6-10.3 [facility] Comment on above: Performed By: #### G LULS #### Point of Care testing , Capillary blood glucose jose urement by glucometer (mass/volume)Ordered By: Yovanny Rivera on 10-15-2023 Glucose [Mass/Vol] 277 mg/dL Normal [facility] Comment on above: Random Glucose Refer ence Range is dependent on time and content of last meal. Glucose of more than 200 mg/dL in a nonstressed, ambulatory subject supports the diagnosis of Diabetes Mellitus. Result Comment: [place] [facility] Glucose Reference Range is dependent on time and content of last meal. Glucose of more than 200 mg/dL in a nonstressed, ambulatory subject supports the diagnosis of Diabetes Mellitus. PERFORMED BY: [address] [place] [address] PATHOLOGIST LOG CLERK WOLFGANG JOHNSON M.D. Performed By: #### C BC, ESR #### [facility] [address] [place] [address] Carbon dioxide, total [Moles /volume] in Serum or PlasmaOrdered By: Alondra Gonzales on 10-15-2023 CO2 [Moles/Vol] 28.2 mmol/L Normal 21.0-31.0 [facility] Comment on above: Performed By: #### G LULS #### Point of Care testing , Chloride [Moles/volume] in S teodoro or PlasmaOrdered By: Alondra Gonzales on 10-15-2023 Chloride [Moles/Vol] 104 mmol/L Normal 98-107 [facility] Comment on above: Performed By: #### G LULS #### Point of Care testing , Complete Blood Count Auto Di ffon 10-15-2023 Mean Corpuscular HGB Conc 33.4 g/dL Normal 32.5-35.6 [facility] Comment on above: Performed By: #### C BC #### [facility] [address] [place] [address] NRBC% 0.1 /100{WBC} Normal 0-0.5 [facility] Comment on above: Performed By: #### C BC #### [facility] [address] Comprehensive Metabolic Pane laxmi 10-15-2023 Albumin [Mass/Vol] 3.4 g/dL Low 3.5-5.7 [facility] Comment on above: Performed By: #### G LULS #### Point of Care testing , Creatinine Clr Calc Pharmacy 51.77 Normal [facility] Comment on above: Performed By: #### G LULS #### Point of Care testing , GFR/1.73 sq M.predicted MDRD (S/P/Bld) [Vol rate/Area] 43.716 mL/min/{1.73_m2} Normal [facility] Comment on above: Performed By: #### G LULS #### Point of Care testing , Creatinine [Mass/volume] in Serum or PlasmaOrdered By: Alondra Gonzales on 10-15-2023 Creatinine [Mass/Vol] 1.68 mg/dL High 0.70-1.30 [facility] Comment on above: Performed By: #### G LULS #### Point of Care testing , ECH echo transthoracicon ECH echo transthoracic [facility] [place] [address] [place] [address] Echocardiogram Signed Patient: Italia Allen MR#: [id number] : 1955 Acct:[id number] Age/Sex: 68 / M ADM Date: 10/14/23 Loc: Room: [address] [place] [address] Type: ADM IN Attending Dr: Yovanny Rivera MD Ordering Provider: Alondra Gonzales MD Date of Service: 10/14/23 ECH/ECH echo transthoracic: CHF exacerbation Copies to: MD Alondra Lopez MD Michael Steph 10:19 AM Patient Location: : 1955 Gender: Male (MM/DD/YYYY) Age: 68 Years Ordering Physician: Alondra Gonzales Height: 69.69 in Weight: 247.378 lb Performed By: Chrissy Smallwood BSA: 2.28 m2 BP: 155 / 79 mmHg HR: 75 bpm Reason For Study: CHF exacerbation History: HTN, HLD, DM, Obesity, CHF + -+ Interpretation Summary Ejection Fraction = 45-50%. The LV ejection fraction is mildly decreased . Anterolateral hypokinesis. The left ventricle is mildly dilated. A variety of Doppler measurements indicate impaired left ventricular relaxation, which is associated with grade I/IV or mild diastolic dysfunction. There is no comparison study available. Procedure/Quality: A two-dimensional transthoracic echocardiogram with color flow, Doppler and injection of contrast agent Definity was performed. The study was technically fair in quality. Left Ventricle: The left ventricular thickness is normal. The left ventricle is mildly dilated. Ejection Fraction = 45-50%. The LV ejection fraction is mildly decreased . A variety of Doppler measurements indicate impaired left ventricular relaxation, which is associated with grade I/IV or mild diastolic dysfunction. Anterolateral hypokinesis. Paradoxical septal motion is seen. Left Atrium: The left atrium appears normal in size. Right Atrium: The right atrium appears normal in size. Right Ventricle: The right ventricle is normal in size and function. Aortic Valve: The aortic valve is trileaflet. The aortic valve is normal in structure. No hemodynamically significant valvular aortic stenosis. No aortic regurgitation is present. Mitral Valve: The mitral valve is normal in structure. No significant mitral valve stenosis. There is no mitral regurgitation noted. Tricuspid Valve: The tricuspid valve is normal in structure. No tricuspid regurgitation. Pulmonic Valve: The pulmonic valve is not well visualized. No significant pulmonic regurgitation. Arteries: The aortic root is normal size. Pericardium/Pleura: No pericardial effusion seen. There is no pleural effusion. IVC/Hepatic Veins: The inferior vena cava is normal in size, with a normal collapsibility index. MMode/2D Measurements Calculations IVSd (0.7-1.1 cm): 1.13 cm LVIDd (3.7-5.4 cm): 5.6 cm LVPWd (0.7-1.1 cm): 0.96 cm LVIDs (2.3-3.6 cm): 4.3 cm LA dimension (2.3-4.0 cm): 3.7 Ao root diam (2.0-3.2 cm): 3.4 cm cm FS: 23.2 % Ao root area: 9.1 cm2 EDV(Teich): 153.5 ml LVOT diam: 2.33 cm ESV(Teich): 82.9 ml LVOT area: 4.3 cm2 EF(Teich): 46.0 % LAV(MOD-sp2): 45.5 ml LAV(MOD-sp4): 73.3 ml LA A2 area: 18.6 cm2 LA A4 area: 26.4 cm2 LA length (vol): 7.3 cm LA vol: 56.9 ml LA vol index: 25.0 ml/m2 Doppler Measurements Calculations MV E max martin: 100.0 cm/sec Ao V2 max: 126.0 cm/sec MV A max martin: 123.6 cm/sec Ao max P.3 mmHg MV dec time: 0.18 sec Ao mean P.6 mmHg MV dec slope: 559.0 cm/sec?? Ao V2 mean: 87.6 cm/sec E/E' lat: 13.5 Ao V2 VTI: 26.6 cm E/E' med: 13.7 CRISTHIAN(I,D): 3.2 cm2 CRISTHIAN(V,D): 3.0 cm2 LV V1 max: 89.4 cm/sec LV V1 max P.2 mmHg LV V1 mean: 61.0 cm/sec LV V1 mean P.70 mmHg LV V1 VTI: 20.1 cm + + + --+ + : Electronically : : : : signed by: Diogenes : : Gerri : : : : : : on: 10/15/2023, : : 6:54 PM : Transcribed By: JOE Performed At: 10/15/23 1019 Signed By: Diogenes Talley MD 10/15/23 1856 Normal [facility] Erythrocyte distribution wid th [Ratio] by Automated countOrdered By: Alondra Gonzales on 10-15-2023 Erythrocyte distribution width (RBC) [Ratio] 15.1 % High 12.0-14.8 [facility] Comment on above: Performed By: #### C BC #### [facility] [address] [place] [address] Erythrocytes [#/volume] in B lood by Automated countOrdered By: Alondra Gonzales on 10-15-2023 RBC (Bld) [#/Vol] 3.97 10*6/uL Normal 3.90-5.60 [facility] Comment on above: Performed By: #### C BC #### [facility] [address] [place] [address] Glucose Poct Glucometerson 0 10-15-2023 Commemt1 Glu2: Cleaned Meter Normal [facility] Comment on above: Result Comment: PERF ORMED BY: [place] [address] PATHOLOGIST LOG CLERK WOLFGANG JOHNSON M.D. Performed By: #### G LULS #### Point of Care testing , Glucose [Mass/Vol] 303 mg/dL Normal [facility] Comment on above: Result Comment: [facility] Glucose Reference Range is dependent on time and content of last meal. Glucose of more than 200 mg/dL in a nonstressed, ambulatory subject supports the diagnosis of Diabetes Mellitus. Performed By: #### G LULS #### Point of Care testing , Commemt1 Glu2: Cleaned Meter Normal [facility] Comment on above: Result Comment: PERF ORMED BY: [place] [id number] PATHOLOGIST LOG CLERK WOLFGANG JOHNSON M.D. Performed By: #### G LULS #### Point of Care testing , Glucose [Mass/Vol] 257 mg/dL Normal [facility] Comment on above: Result Comment: [place] [facility] Glucose Reference Range is dependent on time and content of last meal. Glucose of more than 200 mg/dL in a nonstressed, ambulatory subject supports the diagnosis of Diabetes Mellitus. Performed By: #### G LULS #### Point of Care testing , Commemt1 Glu2: Cleaned Meter Normal [facility] Comment on above: Result Comment: PERF ORMED BY: [facility] [address] [place] [address] PATHOLOGIST LOG CLERK WOLFGANG JOHNSON M.D. Performed By: #### G LULS #### Point of Care testing , Glucose [Mass/Vol] 159 mg/dL Normal [facility] Comment on above: Result Comment: [place] [facility] Glucose Reference Range is dependent on time and content of last meal. Glucose of more than 200 mg/dL in a nonstressed, ambulatory subject supports the diagnosis of Diabetes Mellitus. Performed By: #### G LULS #### Point of Care testing , Glucose [Mass/volume] in Ser um or PlasmaOrdered By: Alondra Gonzales on 10-15-2023 Glucose [Mass/Vol] 120 mg/dL Significant change up 70-100 [facility] Comment on above: Delta: 220 on -1127ADA recommended reference rangeRandom Glucose Reference Range is dependent on time and content of last meal. Glucose of more than 200 mg/dL in a nonstressed, ambulatory subject supports the diagnosis of Diabetes Mellitus. Result Comment: [place] [facility] Glucose Reference Range is dependent on time and content of last meal. Glucose of more than 200 mg/dL in a nonstressed, ambulatory subject supports the diagnosis of Diabetes Mellitus. ADA recommended reference range Performed By: #### G LULS #### Point of Care testing , Hematocrit [Volume Fraction] of Blood by Automated countOrdered By: Alondra Gonzales on 10-15-2023 Hematocrit (Bld) [Volume fraction] 35.0 % Low 38.8-50.0 [facility] Comment on above: Performed By: #### C BC #### [facility] [address] [place] [address] Hemoglobin [Mass/volume] in BloodOrdered By: Alondra Gonzales on 10-15-2023 Hemoglobin (Bld) [Mass/Vol] 11.7 g/dL Low 13.0-17.0 [facility] Comment on above: Performed By: #### C BC #### [facility] [address] [place] [address] INR in Platelet poor plasma by Coagulation assayOrdered By: Alondra Gonzales on 10-15-2023 INR Coag (PPP) [Relative time] 1.1 {INR} Normal [facility] Comment on above: INR Therapeutic Rang e A) Pre- and Peroperative OAT started two weeks before surgery. NOT HIP SURGERY: 1.5 - 2.5 HIP SURGERY: 2 - 3B) Primary and secondary prevention of venous THROMBOSIS: 2 - 3C) Active venous thrombosis, pulmonary embolismand prevention of recurrent venous thrombosis: 2 - 3D) Prevention of arterial thromboembolismincluding patients with mechanical heart valves: 3 - 4.5 Order Comment: List the anticoagulant: HEPARIN, UNFRACTIONATED Result Comment: INR Therapeutic Range A) Pre- and Peroperative OAT started two weeks before surgery. NOT HIP SURGERY: 1.5 - 2.5 HIP SURGERY: 2 - 3 B) Primary and secondary prevention of venous THROMBOSIS: 2 - 3 C) Active venous thrombosis, pulmonary embolism and prevention of recurrent venous thrombosis: 2 - 3 D) Prevention of arterial thromboembolism including patients with mechanical heart valves: 3 - 4.5 Performed By: #### P TT, PT #### [facility] [address] [place] [address] Leukocytes [#/volume] correc zaid for nucleated erythrocytes in Blood by Automated counOrdered By: Alondra Gonzales on 10-15-2023 WBC corrected for nucl RBC Auto (Bld) [#/Vol] 9.8 10*3/uL 4.1-10.5 [facility] Leukocytes [#/volume] in Blo od by Automated countOrdered By: Alondra Gonzales on 10-15-2023 WBC (Bld) [#/Vol] 9.8 10*3/uL Normal 4.1-10.5 [facility] Comment on above: Performed By: #### C BC #### [address] Lymphocytes [#/volume] in Bl ood by Automated countOrdered By: Alondra Gonzales on 10-15-2023 Lymphocytes (Bld) [#/Vol] 1.2 10*3/uL Normal 1.00-4.8 [facility] Comment on above: Performed By: #### C BC #### [address] Lymphocytes/100 leukocytes i n Blood by Automated countOrdered By: Alondra Gonzales on 10-15-2023 Lymphocytes/100 WBC (Bld) 11.9 % Normal . [facility] Comment on above: Performed By: #### C BC #### [address] MCH [Entitic mass] by Automa zaid countOrdered By: Alondra Gonzales on 10-15-2023 MCH (RBC) [Entitic mass] 29.4 pg Normal 27.5-35.2 [facility] Comment on above: Performed By: #### C BC #### [address] MCHC Auto (RBC) [Mass/Vol]Or dered By: Alondra Gonzales on 10-15-2023 MCHC (RBC) [Mass/Vol] 33.4 g/dL 32.5-35.6 [facility] MCV [Entitic volume] by Auto mated countOrdered By: Alondra Gonzales on 10-15-2023 MCV (RBC) [Entitic vol] 87.9 fL Normal 83.5-101 [facility] Comment on above: Performed By: #### C BC #### [address] Magnesium [Mass/volume] in S teodoro or PlasmaOrdered By: Alondra Gonzales on 10-15-2023 Magnesium [Mass/Vol] 1.7 mg/dL Low 1.9-2.7 [facility] Comment on above: Result Comment: PERF ORMED BY: [address] [place] [address] PATHOLOGIST LOG CLERK WOLFGANG JOHNSON M.D. Performed By: #### G LULS #### Point of Care testing , Neutrophils [#/volume] in Bl ood by Automated countOrdered By: Alondra Gonzales on 10-15-2023 Neutrophils (Bld) [#/Vol] 7.3 10*3/uL Normal 1.8-7.7 [facility] Comment on above: Performed By: #### C BC #### [facility] [address] [place] [address] No Panel InformationOrdered By: Yovanny Rivera on 10-15-2023 Bedside Glucose Comment Glu2: cleaned meter [facility] No Panel InformationOrdered By: Alondra Gonzales on 10-15-2023 Estimated GFR (CKD-EPI) 43.716 mL/Min [facility] Creatinine Clearance (Chem 51.77 [facility] Nucleated erythrocytes [Pres ence] in Blood by Automated countOrdered By: Alondra Gonzales on 10-15-2023 Nucleated RBC Auto Ql (Bld) 0.1 /100{WBC} 0-0.5 [facility] Partial Thromboplastin Timeo n 10-15-2023 aPTT Coag (Bld) [Time] 45.5 s High 25.1-36.5 [facility] Comment on above: Result Comment: A he matocrit value greater than 55% may lead to inaccurate results in coagulation testing. Patients having hematocrit values >55% require a special collection tube for coagulation studies. Please contact the laboratory at [phone] for redraw instructions. PERFORMED BY: [address] [place] [address] PATHOLOGIST LOG CLERK WOLFGANG JOHNSON M.D. Performed By: #### P TT #### [facility] [address] [place] [address] aPTT Coag (Bld) [Time] 41.7 s High 25.1-36.5 [facility] Comment on above: Order Comment: List the anticoagulant: HEPARIN, UNFRACTIONATED Result Comment: A he matocrit value greater than 55% may lead to inaccurate results in coagulation testing. Patients having hematocrit values >55% require a special collection tube for coagulation studies. Please contact the laboratory at [phone] for redraw instructions. PERFORMED BY: [place] [address] PATHOLOGIST LOG CLERK WOLFGANG JOHNSON M.D. Performed By: #### P TT, PT #### [facility] [address] [place] [address] [place] Phosphate [Mass/volume] in S teodoro or PlasmaOrdered By: Alondra Gonzales on 10-15-2023 Phosphate [Mass/Vol] 3.8 mg/dL Normal 2.5-4.5 [facility] Comment on above: Performed By: #### G LULS #### Point of Care testing , Platelet mean volume [Entiti c volume] in Blood by Automated countOrdered By: Alondra Gonzales on 10-15-2023 Platelet mean volume (Bld) [Entitic vol] 7.7 fL Normal 6.6-10.1 [facility] Comment on above: Performed By: #### C BC #### [facility] [address] [place] [address] [place] Platelets [#/volume] in Bloo d by Automated countOrdered By: Alondra Gonzales on 10-15-2023 Platelets (Bld) [#/Vol] 285 10*3/uL Normal 150-450 [facility] Comment on above: Performed By: #### C BC #### [facility] [address] [place] [address] [place] Potassium [Moles/volume] in Serum or PlasmaOrdered By: Alondra Gonzales on 10-15-2023 Potassium [Moles/Vol] 4.1 mmol/L Normal 3.5-5.1 [facility] Comment on above: Performed By: #### G LULS #### Point of Care testing , Protein [Mass/volume] in Ser um or PlasmaOrdered By: Alondra Gonzales on 10-15-2023 Protein [Mass/Vol] 5.6 g/dL Low 6.4-8.9 [facility] Comment on above: Performed By: #### G LULS #### Point of Care testing , Prothrombin time (PT)Ordered By: Alondra Gonzales on 10-15-2023 PT Coag (PPP) [Time] 12.6 s Normal 9.0-12.9 [facility] Comment on above: A hematocrit value g reater than 55% may lead to inaccurate results in coagulation testing. Patients having hematocrit values >55% require a special collection tube for coagulation studies. Please contact the laboratory at [phone] for redraw instructions. Order Comment: List the anticoagulant: HEPARIN, UNFRACTIONATED Result Comment: A he matocrit value greater than 55% may lead to inaccurate results in coagulation testing. Patients having hematocrit values >55% require a special collection tube for coagulation studies. Please contact the laboratory at [phone] for redraw instructions. Performed By: #### P TT, PT #### [address] Serum globulin measurement b y calculation (mass/volume)Ordered By: Alondra Gonzales on 10-15-2023 Globulin (S) [Mass/Vol] 2.2 g/dL [facility] Comment on above: Performed By: #### G LULS #### Point of Care testing , Serum or plasma albumin/glob ulin mass ratioOrdered By: Alondra Gonzales on 10-15-2023 Albumin/Globulin [Mass ratio] 1.5 {ratio} [facility] Comment on above: Performed By: #### G LULS #### Point of Care testing , Serum or plasma anion gap de terminationOrdered By: Alondra Gonzales on 10-15-2023 Anion gap [Moles/Vol] 10.9 mmol/L Normal 6.0-15.0 [facility] Comment on above: Performed By: #### G LULS #### Point of Care testing , Sodium [Moles/volume] in Ser um or PlasmaOrdered By: Alondra Gonzales on 10-15-2023 Sodium [Moles/Vol] 139 mmol/L Normal 136-145 [facility] Comment on above: Performed By: #### G LULS #### Point of Care testing , US renal BIon 10-15-2023 US renal BI [facility] Main [place] [id number] Ultrasound Report Signed Patient: Italia Allen MR#: [id number] : 1955 Acct:[id number] Age/Sex: 68 / M ADM Date: 10/14/23 Loc: Room: [address] [place] [address] Type: ADM IN Attending Dr: Yovanny Rivera MD Ordering Provider: Alondra Gonzales MD Date of Service: 10/15/23 US/US renal BI: HÉCTOR on CKD Copies to: MD Alondra Hunt MD BILATERAL RENAL AND BLADDER ULTRASOUND CLINICAL HISTORY: Acute kidney injury, chronic kidney disease. COMPARISON: None FINDINGS: Estimation of renal size is approximately 11.06 cm on the right and 10.37 cm on the left. No contour deforming mass, shadowing stone or hydronephrosis. Small cyst right kidney. The urinary bladder is partially distended with a volume of 366.49 ml. No shadowing stone or focal lesion. US/US renal BI IMPRESSION: No acute findings. Impression dictated by: Jude Baird Jr., D.O.10/15/2023 9:59 AM Dictation Location: [place] [address] Tech: Rebecca Angel Luis Transcribed By: IRISH 10/15/23 0959 Dictated By: Jude Baird Jr, DO 10/15/23 0954 Signed By: 10/15/23 0959 Normal [facility] Urea nitrogen [Mass/volume] in Serum or PlasmaOrdered By: Alondra Gonzales on 10-15-2023 Urea nitrogen [Mass/Vol] 33 mg/dL High 7-25 [facility] Comment on above: Performed By: #### G LULS #### Point of Care testing , C reactive protein [Mass/vol ume] in Serum or PlasmaOrdered By: Alondra Gonzales on 10-14-2023 CRP [Mass/Vol] 2.7 mg/dL High 0.0-0.5 [facility] C-Reactive Proteinon 024 C-Reactive Protein 2.7 mg/dL High 0.0-0.5 [facility] Comment on above: Result Comment: PERF ORMED BY: [place] [address] PATHOLOGIST LOG CLERK WOLFGANG JOHNSON M.D. Performed By: #### C BC, ESR #### [address] Complete Blood Count Auto Di ffon 10-14-2023 Basophils (Bld) [#/Vol] 0.1 10*3/uL Normal 0.0-0.2 [facility] Comment on above: Performed By: #### C BC, ESR #### [address] Basophils/100 WBC (Bld) 1.3 % Normal . [facility] Comment on above: Performed By: #### C BC, ESR #### [address] Eosinophils (Bld) [#/Vol] 0.2 10*3/uL Normal 0.0-0.45 [facility] Comment on above: Performed By: #### C BC, ESR #### [address] Eosinophils/100 WBC (Bld) 3.2 % Normal . [facility] Comment on above: Performed By: #### C BC, ESR #### [address] Erythrocyte distribution width (RBC) [Ratio] 15.4 % High 12.0-14.8 [facility] Comment on above: Performed By: #### C BC, ESR #### [address] Hematocrit (Bld) [Volume fraction] 35.1 % Low 38.8-50.0 [facility] Comment on above: Performed By: #### C BC, ESR #### [facility] [address] [id number] [place] Hemoglobin (Bld) [Mass/Vol] 11.6 g/dL Low 13.0-17.0 [facility] Comment on above: Performed By: #### C BC, ESR #### [address] Lymphocytes (Bld) [#/Vol] 0.9 10*3/uL Low 1.00-4.8 [facility] Comment on above: Performed By: #### C BC, ESR #### [facility] [address] [place] [address] [place] Lymphocytes/100 WBC (Bld) 12.1 % Normal . [facility] Comment on above: Performed By: #### C BC, ESR #### [address] MCH (RBC) [Entitic mass] 29.3 pg Normal 27.5-35.2 [facility] Comment on above: Performed By: #### C BC, ESR #### [place] [address] [place] MCV (RBC) [Entitic vol] 88.7 fL Normal 83.5-101 [facility] Comment on above: Performed By: #### C BC, ESR #### [address] Mean Corpuscular HGB Conc 33.0 g/dL Normal 32.5-35.6 [facility] Comment on above: Performed By: #### C BC, ESR #### [place] [address] [place] Monocytes (Bld) [#/Vol] 0.6 10*3/uL Normal 0.0-0.8 [facility] Comment on above: Performed By: #### C BC, ESR #### [place] [address] [place] Monocytes/100 WBC (Bld) 7.5 % Normal . [facility] Comment on above: Performed By: #### C BC, ESR #### [facility] [address] [place] [address] [place] Neutrophils (Bld) [#/Vol] 5.7 10*3/uL Normal 1.8-7.7 [facility] Comment on above: Performed By: #### C BC, ESR #### [facility] [address] [id number] [place] Neutrophils/100 WBC (Bld) 75.9 % Normal . [facility] Comment on above: Performed By: #### C BC, ESR #### [facility] [address] NRBC% 0.1 /100{WBC} Normal 0-0.5 [facility] Comment on above: Performed By: #### C BC, ESR #### [facility] [address] Platelet mean volume (Bld) [Entitic vol] 7.8 fL Normal 6.6-10.1 [facility] Comment on above: Performed By: #### C BC, ESR #### [facility] [address] [place] [address] [place] Platelets (Bld) [#/Vol] 290 10*3/uL Normal 150-450 [facility] Comment on above: Performed By: #### C BC, ESR #### [facility] [address] [place] [address] [place] RBC (Bld) [#/Vol] 3.95 10*6/uL Normal 3.90-5.60 [facility] Comment on above: Performed By: #### C BC, ESR #### [facility] [address] [place] [address] [place] WBC (Bld) [#/Vol] 7.5 10*3/uL Normal 4.1-10.5 [facility] Comment on above: Performed By: #### C BC, ESR #### [facility] [address] [place] [address] [place] Basophils (Bld) [#/Vol] 0.1 10*3/uL Normal 0.0-0.2 [facility] Comment on above: Result Comment: PERF ORMED BY: [place] [address] PATHOLOGIST LOG CLERK WOLFGANG JOHNSON M.D. Performed By: #### C BC, ESR #### [address] Basophils/100 WBC (Bld) 1.3 % Normal . [facility] Comment on above: Performed By: #### C BC, ESR #### [address] Eosinophils (Bld) [#/Vol] 0.3 10*3/uL Normal 0.0-0.45 [facility] Comment on above: Performed By: #### C BC, ESR #### [address] Eosinophils/100 WBC (Bld) 3.4 % Normal . [facility] Comment on above: Performed By: #### C BC, ESR #### [address] Erythrocyte distribution width (RBC) [Ratio] 15.3 % High 12.0-14.8 [facility] Comment on above: Performed By: #### C BC, ESR #### [address] Hematocrit (Bld) [Volume fraction] 35.3 % Low 38.8-50.0 [facility] Comment on above: Performed By: #### C BC, ESR #### [address] Hemoglobin (Bld) [Mass/Vol] 11.8 g/dL Low 13.0-17.0 [facility] Comment on above: Performed By: #### C BC, ESR #### [address] Lymphocytes (Bld) [#/Vol] 0.9 10*3/uL Low 1.00-4.8 [facility] Comment on above: Performed By: #### C BC, ESR #### [address] [place] [address] [place] Lymphocytes/100 WBC (Bld) 10.9 % Normal . [facility] Comment on above: Performed By: #### C BC, ESR #### [address] MCH (RBC) [Entitic mass] 29.5 pg Normal 27.5-35.2 [facility] Comment on above: Performed By: #### C BC, ESR #### [address] MCV (RBC) [Entitic vol] 87.9 fL Normal 83.5-101 [facility] Comment on above: Performed By: #### C BC, ESR #### [address] Mean Corpuscular HGB Conc 33.5 g/dL Normal 32.5-35.6 [facility] Comment on above: Performed By: #### C BC, ESR #### [address] Monocytes (Bld) [#/Vol] 0.6 10*3/uL Normal 0.0-0.8 [facility] Comment on above: Performed By: #### C BC, ESR #### [address] Monocytes/100 WBC (Bld) 7.5 % Normal . [facility] Comment on above: Performed By: #### C BC, ESR #### [address] Neutrophils (Bld) [#/Vol] 6.0 10*3/uL Normal 1.8-7.7 [facility] Comment on above: Performed By: #### C BC, ESR #### [address] Neutrophils/100 WBC (Bld) 76.9 % Normal . [facility] Comment on above: Performed By: #### C BC, ESR #### [address] NRBC% 0.1 /100{WBC} Normal 0-0.5 [facility] Comment on above: Performed By: #### C BC, ESR #### [address] Platelet mean volume (Bld) [Entitic vol] 7.8 fL Normal 6.6-10.1 [facility] Comment on above: Performed By: #### C BC, ESR #### [address] Platelets (Bld) [#/Vol] 288 10*3/uL Normal 150-450 [facility] Comment on above: Performed By: #### C BC, ESR #### [address] RBC (Bld) [#/Vol] 4.01 10*6/uL Normal 3.90-5.60 [facility] Comment on above: Performed By: #### C BC, ESR #### [address] WBC (Bld) [#/Vol] 7.8 10*3/uL Normal 4.1-10.5 [facility] Comment on above: Performed By: #### C BC, ESR #### [address] Comprehensive Metabolic Pane laxmi 10-14-2023 Albumin [Mass/Vol] 3.3 g/dL Low 3.5-5.7 [facility] Comment on above: Performed By: #### C BC, ESR #### [address] Albumin/Globulin [Mass ratio] 1.4 {ratio} Normal [facility] Comment on above: Performed By: #### C BC, ESR #### [address] ALP [Catalytic activity/Vol] 59 U/L Normal 34-104 [facility] Comment on above: Performed By: #### C BC, ESR #### [address] ALT [Catalytic activity/Vol] 17 U/L Normal 7-52 [facility] Comment on above: Performed By: #### C BC, ESR #### [facility] [address] Anion gap [Moles/Vol] 10.6 mmol/L Normal 6.0-15.0 [facility] Comment on above: Performed By: #### C BC, ESR #### [facility] [address] AST [Catalytic activity/Vol] 16 U/L Normal 13-39 [facility] Comment on above: Performed By: #### C BC, ESR #### [facility] [address] Bilirubin [Mass/Vol] 0.5 mg/dL Normal 0.3-1.0 [facility] Comment on above: Performed By: #### C BC, ESR #### [facility] [address] Calcium [Mass/Vol] 8.2 mg/dL Low 8.6-10.3 [facility] Comment on above: Performed By: #### C BC, ESR #### [facility] [address] [place] [address] [place] Chloride [Moles/Vol] 106 mmol/L Normal 98-107 [facility] Comment on above: Performed By: #### C BC, ESR #### [facility] [address] [place] [address] [place] CO2 [Moles/Vol] 28.5 mmol/L Normal 21.0-31.0 [facility] Comment on above: Performed By: #### C BC, ESR #### [facility] [address] [id number] [place] Creatinine [Mass/Vol] 1.61 mg/dL High 0.70-1.30 [facility] Comment on above: Performed By: #### C BC, ESR #### [facility] [address] [id number] [place] Creatinine Clr Calc Pharmacy 54.02 Normal [facility] Comment on above: Performed By: #### C BC, ESR #### [address] GFR/1.73 sq M.predicted MDRD (S/P/Bld) [Vol rate/Area] 46.006 mL/min/{1.73_m2} Normal [facility] Comment on above: Performed By: #### C BC, ESR #### [address] Globulin (S) [Mass/Vol] 2.3 g/dL Normal [facility] Comment on above: Performed By: #### C BC, ESR #### [address] Glucose [Mass/Vol] 220 mg/dL High 70-100 [facility] Comment on above: Result Comment: [place] Glucose Reference Range is dependent on time and content of last meal. Glucose of more than 200 mg/dL in a nonstressed, ambulatory subject supports the diagnosis of Diabetes Mellitus. ADA recommended reference range Performed By: #### C BC, ESR #### [address] Potassium [Moles/Vol] 4.1 mmol/L Normal 3.5-5.1 [facility] Comment on above: Performed By: #### C BC, ESR #### [address] Protein [Mass/Vol] 5.6 g/dL Low 6.4-8.9 [facility] Comment on above: Performed By: #### C BC, ESR #### [address] Sodium [Moles/Vol] 141 mmol/L Normal 136-145 [facility] Comment on above: Performed By: #### C BC, ESR #### [address] Urea nitrogen [Mass/Vol] 31 mg/dL High 7-25 [facility] Comment on above: Performed By: #### C BC, ESR #### [address] ECG 12 lead ECGon 10-14-2023 ECG 12 lead ECG [facility] [place] [address] [place] [address] Electrocardiograph Report Signed Patient: Italia Allen MR#: [id number] : 1955 Acct:[id number] Age/Sex: 68 / M ADM Date: 10/14/23 Loc: Room: [address] [place] [address] Type: DIS IN Attending Dr: Yovanny Rivera MD Ordering Provider: Alondra Gonzales MD Date of Service: 10/14/23 ECG/ECG 12 lead ECG: Elevated troponin Copies to: Test Reason : Blood Pressure : */* mmHG Vent. Rate : 98 BPM Atrial Rate : 98 BPM P-R Int : 188 ms QRS Dur : 90 ms QT Int : 362 ms P-R-T Axes : 74 77 92 degrees QTcB Int : 462 ms Sinus rhythm with occasional premature ventricular complexes Otherwise normal ECG No previous ECGs available Confirmed by Diogenes Talley ([id number]) on 10/16/2023 10:19:42 PM Referred By: Electronically Signed By: Diogenes Talley Transcribed By: MUS Signed By Diogenes Talley MD 10/16/23 1375 Normal [facility] Erythrocyte Sedimentation Ra clarice 10-14-2023 ESR (Bld) [Velocity] 22 mm/h High 0-19 [facility] Comment on above: Result Comment: PERF ORMED BY: [place] [address] PATHOLOGIST LOG CLERK WOLFGANG JOHNSON M.D. Performed By: #### C BC, ESR #### [address] Erythrocyte sedimentation ra te by Photometric methodOrdered By: Alondra Gonzales on 10-14-2023 ESR Photometric method (Bld) [Velocity] 22 mm/hr High 0-19 [facility] Glucose Poct Glucometerson 0 10-14-2023 Glucose [Mass/Vol] 306 mg/dL Normal [facility] Comment on above: Result Comment: [place] Glucose Reference Range is dependent on time and content of last meal. Glucose of more than 200 mg/dL in a nonstressed, ambulatory subject supports the diagnosis of Diabetes Mellitus. PERFORMED BY: [place] [address] PATHOLOGIST LOG CLERK WOLFGANG JOHNSON M.D. Performed By: #### G LULS #### Point of Care testing , Glucose [Mass/Vol] 221 mg/dL Normal [facility] Comment on above: Result Comment: [facility] Glucose Reference Range is dependent on time and content of last meal. Glucose of more than 200 mg/dL in a nonstressed, ambulatory subject supports the diagnosis of Diabetes Mellitus. PERFORMED BY: [place] [address] PATHOLOGIST LOG CLERK WOLFGANG JOHNSON M.D. Performed By: #### G LULS #### Point of Care testing , Magnesiumon 10-14-2023 Magnesium [Mass/Vol] 1.7 mg/dL Low 1.9-2.7 [facility] Comment on above: Performed By: #### C BC, ESR #### [facility] [address] [place], [place] [id number] [place] Partial Thromboplastin Timeo n 10-14-2023 aPTT Coag (Bld) [Time] 35.7 s Normal 25.1-36.5 [facility] Comment on above: Result Comment: A he matocrit value greater than 55% may lead to inaccurate results in coagulation testing. Patients having hematocrit values >55% require a special collection tube for coagulation studies. Please contact the laboratory at [phone] for redraw instructions. PERFORMED BY: [address] [address] PATHOLOGIST LOG CLERK WOLFGANG JOHNSON M.D. Performed By: #### P TT #### [facility] [address] [place] [address] [place] aPTT Coag (Bld) [Time] 31.1 s Normal 25.1-36.5 [facility] Comment on above: Result Comment: A he matocrit value greater than 55% may lead to inaccurate results in coagulation testing. Patients having hematocrit values >55% require a special collection tube for coagulation studies. Please contact the laboratory at [phone] for redraw instructions. PERFORMED BY: [place] [address] PATHOLOGIST LOG CLERK WOLFGANG JOHNSON M.D. Performed By: #### C BC, ESR #### [address] Prothrombin Time INRon 10-13 INR Coag (PPP) [Relative time] 1.1 {INR} Normal [facility] Comment on above: Result Comment: INR Therapeutic Range A) Pre- and Peroperative OAT started two weeks before surgery. NOT HIP SURGERY: 1.5 - 2.5 HIP SURGERY: 2 - 3 B) Primary and secondary prevention of venous THROMBOSIS: 2 - 3 C) Active venous thrombosis, pulmonary embolism and prevention of recurrent venous thrombosis: 2 - 3 D) Prevention of arterial thromboembolism including patients with mechanical heart valves: 3 - 4.5 Performed By: #### C BC, ESR #### [address] PT Coag (PPP) [Time] 13.0 s High 9.0-12.9 [facility] Comment on above: Result Comment: A he matocrit value greater than 55% may lead to inaccurate results in coagulation testing. Patients having hematocrit values >55% require a special collection tube for coagulation studies. Please contact the laboratory at [phone] for redraw instructions. Performed By: #### C BC, ESR #### [address] Troponin I High Sensitivityo n 10-14-2023 Troponin I High Sensitivity 1682.8 pg/mL Off scale high 0.0-20.0 [facility] Comment on above: Result Comment: Crit ical Result : Called to and read back by: JAREK REESE at: 10/14/2023 12:42:52 by:ADRIENNE PERFORMED BY: [place] [address] PATHOLOGIST LOG CLERK WOLFGANG JOHNSON M.D. Performed By: #### C BC, ESR #### [facility] [address] [id number] [facility] Troponin I.cardiac [Mass/vol ume] in Serum or Plasma by Detection limit <= 0.01 ng/Ordered By: Alondra Gonzales on 10-14-2023 Troponin I.cardiac DL <= 0.01 ng/mL [Mass/Vol] 1682.8 pg/mL High 0.0-20.0 [facility] Comment on above: Critical Result : Ca lled to and read back by: JAREK REESE at: 10/14/2023 12:42:52 by:ADRIENNE XR chest 1V portableon 10-13 XR chest 1V portable [facility] [place] [address] [id number] XRay Report Signed Patient: Italia Allen MR#: [id number] : 1955 Acct:[id number] Age/Sex: 68 / M ADM Date: 10/14/23 Loc: Room: [address] [place] [address] Type: ADM IN Attending Dr: Alondra Gonzales MD Copies to: Alondra Gonzales MD Ordering Provider: Alondra Gonzales MD Date of Service: 10/14/23 XR/XR chest 1V portable: Acute hypoxic resp failure XR chest 1V portable 10/14/2023 11:20 AM SIGNS AND SYMPTOMS: Shortness of breath, chest pain PROTOCOL: Frontal radiograph of the chest COMPARISON: None FINDINGS: The trachea is midline. There is cardiomegaly. There is perihilar vascular prominence and interstitial prominence. The bony thorax is intact. Degenerative changes are noted in the shoulders and thoracic spine. XR/XR chest 1V portable IMPRESSION: Findings suggest congestive heart failure. Impression dictated by: Andrés Hardwick M.D.10/14/2023 12:13 PM Dictation Location: [place] [address] Transcribed By: [facility] 10/14/23 1213 Dictated By: Andrés Hardwick II, MD 10/14/23 1212 Signed By: 10/14/23 1213 Normal [facility] Vital Signs Date Time Vital Sign Value Performing Clinician Facility 10-16-2023 15:57-0400 Body temperature 37.0 degrees Celsius [facility] Comment on above: Result Comment: NOTE: Patient Results ar e Not Corrected for Temperature Performed By: #### 1 [id number] #### ERICA Tam ([id number]) [facility] ([facility]) [address] [place] [address] 10-16-2023 15:57-0400 SaO2% (BldA) [Mass fraction] 95 % [facility] Comment on above: Performed By: #### [id number] #### ERICA Tam ([id number]) [facility] ([facility]) [address] [place] [address] 10-15-2023 23:16-0400 Body temperature 98 [degF] [facility] 10-15-2023 23:16-0400 Diastolic blood pressure 73 mm[Hg] [facility] 10-15-2023 23:16-0400 Heart rate 104 /min [facility] 10-15-2023 23:16-0400 Respiratory rate 18 /min [facility] 10-15-2023 23:16-0400 SaO2% (BldA) [Mass fraction] 92 % [facility] 10-15-2023 23:16-0400 Systolic blood pressure 153 mm[Hg] [facility] 10-15-2023 20:00-0400 Inhaled oxygen flow rate 2 L/min [facility] 10-15-2023 14:51-0400 Body height 177.8 cm [facility] 10-15-2023 06:00-0400 Body weight 112.2 kg [facility] Encounters Encounter Date Encounter Type Care Provider Facility Start: 11-13-2023 End: 11-13-2023 ambulatory [facility] Start: 11-02-2023 End: 11-02-2023 ambulatory [facility] Start: 10-15-2023 End: 10-24-2023 [facility] Start: 10-15-2023 End: 10-24-2023 Evaluation and management of inpatient ANN PLATA [facility] Start: 10-14-2023 End: 10-15-2023 Evaluation and management of inpatient [facility] Work Phone: Procedures Date Procedure Procedure Detail Performing Clinician Start: 10-15-2023 Start: 10-15-2023 [facility] Start: 10-15-2023 Ultrasonography of b ilateral kidneys Start: 10-14-2023 Plain chest X-ray Plan of Treatment Date Care Activity Detail Author Start: 10-15-2023 [facility] Start: 10-15-2023 [facility] Start: 10-14-2023 [facility] Start: 10-14-2023 Hospital admission [facility] Start: 10-14-2023 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 [facility] Patient Education Heart Failure, Adult (DC) [facility] Work Phone: Payers Date Payer Category Payer Self-pay 2020 Medicare [id number] 1955 Unknown [id number] 1955 Unknown [id number] 1955 Unknown [id number] [id number] Unknown [employer] [id number] Unknown [id number] Social History Date Type Detail Facility Start: 10-14-2023 Tobacco smoking stat us NMIS Never smoked tobacco (finding) [facility] Start: 1955 Sex Assigned At Male F [facility] Goals Date Patient Goal Desired Activity /State Functional Status Date Assessment Result Facility 10-15-2023 Functional status Patient at Baseline [facility] Work Phone: Mental Status Date Assessment Result Facility 10-15-2023 Cognitive function Cognitive Sta tus Patient at Baseline [facility] Work Phone: Discharge summary 10-15-2023 Note Date & Type Note Facility 10-15-2023 Discharge summary Note Date/Time October 15, 2023 6:18pm [facility] [address] [place] [address] Discharge Summary Signed Patient: Italia Allen MR#: [id number] : 1955 Acct:[id number] Age/Sex: 68 / M Adm Date: 4 Loc: Room: [address] [place] [address]: Yovanny Rivera MD Copies to: NON STAFF Yovanny Rivera MD~ Providers Date of Discharge: 10/15/23 Discharging Provider: Yovanny Rivera Primary Care Provider: NON STAFF Consults: 10/14/23 09:25 Consult to Cardiology Routine Comment: Consulting Provider: Ann Plata Reason For Exam: CHF with elevated trop Has Provider Been Notified: Yes Date of Notification: 10/14/23 Time of Notification: 09:40 Discharge Diagnosis (1) ACS (acute coronary syndrome): (2) Acute hypoxic respiratory failure: (3) Systolic CHF, acute on chronic: Final Diagnosis Final Discharge Diagnosis: As above Summary Hospital Course Hospital course: Mr. Allen is a 68yo M with PMH of DM type II, HTN, obesity, HFpEF who presentsto the [facility] with complaints of deep pain and substernalchest associated with shortness of breath and dyspnea on exertion. Troponin level significantly elevated at 1682. Cardiology assessed and recommended further investigation with cardiac catheterization. Patient was noted to have three-vessel coronary artery disease as evidenced by diffuse severe disease in the mid to proximal LAD (78% occlusion) as well as 90% occlusion in marginal andtotal occlusion of the right coronary artery with collaterals. EF was estimatedat 45 to 50%. Patient was recommended aggressive coronary artery risk factor modification as well as bypass surgery considering mild left ventricular systolic dysfunction and three-vessel disease. Patient was recommended for transfer to tertiary care facility ([facility] under Dr. Galdamez) for likely CABG. Patient was discharged there for further inpatient management. Also noteworthy, patient did have recent loss of his , and was tearful during much of the hospitalization. Suspect adjustment disorder in the setting of recent spouse loss. He denied any SI during hospitalization. This will likely need to be addressed in the setting of his acute medical conditions as well. Time Spent with Patient Time spent providing/coordinating discharge services (# min): 35 Surgeries and Procedures Operation Date: 10/15/23 11:20 Actual Procedures p [facility] Mary - Ann Plata MD Discharge Plan Discharge Plan Patient Disposition: Hospital Acute Care Other Activity: Ambulate as Tolerated Comment: See cardiac cath dc instructions for activity restrictions Diet: Diabetic and Low-Sodium Additional Instructions: Full code Monitor FSBS ACHS Instructions: Heart Failure, Adult (DC) Prescriptions: New furosemide 10 mg/mL Solution 40 mg IV-PUSH BID@0800,1600 Qty: 0 0RF aspirin 81 mg Tablet,Delayed Release (Dr/Ec) 81 mg PO DAILY Qty: 0 0RF metoprolol tartrate 25 mg Tablet 25 mg PO BID Qty: 0 0RF Continued bumetanide 2 mg tablet 2 mg PO DAILY glipizide 5 mg tablet 10 mg PO BID lisinopril 40 mg tablet 40 mg PO DAILY insulin detemir U-100 100 unit/mL (3 mL) insulin pen 12 unit subcut BID Changed insulin glargine-yfgn [Semglee(insulin glarg-yfgn)Pen] 100 unit/mL (3 mL) insulin pen 30 unit SUBCUT DAILY Qty: 15 0RF Discontinued diclofenac sodium 75 mg tablet,delayed release (DR/EC) 75 mg PO BID Exam Physical Exam Vital Signs: Temp Pulse Resp BP Pulse Ox O2 Del Method O2 Flow Rate 97.9 F 82 18 147/74 H 91 L Room Air 2 10/15/23 11:54 10/15/23 17:07 10/15/23 17:07 10/15/23 17:07 10/15/23 17:07 10/15/23 17:07 10/15/23 11:54 Narrative: Constitutional: Elderly WM, resting in bed comfortably HEENT: Moist mucous membranes, neck supple Cardiovascular: RRR, no M/R/G, normal S1 and S2, no JVD Respiratory: Lungs clear to auscultation bilaterally, no wheezes, rales or rhonchi GI: Soft, NTND, normoactive bowel sounds : Deferred Neuro: AAO x3, no focal deficits. CN III-XII grossly intact, Strength 5/5 throughout Extremities: No clubbing, cyanosis or edema Psych: Flattened affect, tearful occasionally Diagnostic Studies Completed and Pending Studies Labs on day of discharge: 10/15/23 16:28: POC Glucose 303, POC Glucose Comment Glu2: cleaned meter 10/15/23 11:53: POC Glucose 257, POC Glucose Comment Glu2: cleaned meter 10/15/23 09:50: APTT 45.5 H 10/15/23 07:11: POC Glucose 159, POC Glucose Comment Glu2: cleaned meter 10/15/23 03:48: Corrected WBC 9.8, Uncorrected WBC Count 9.8, RBC 3.97, Hgb 11.7L, Hct 35.0 L, MCV 87.9, MCH 29.4, MCHC 33.4, RDW 15.1 H, Plt Count 285, MPV 7.7, Neut % (Auto) 74.1, Lymph % (Auto) 11.9, [place] % (Auto) 9.3, Eos % (Auto) 3.7, Baso % (Auto) 1.0, Nucleat RBC Rel Count 0.1, Neut # (Auto) 7.3, Lymph # (Auto) 1.2, [place] # (Auto) 0.9 H, Eos # (Auto) 0.4, Baso # (Auto) 0.1, PT 12.6, INR 1.1, APTT 41.7 H, PHA Creatinine Clear 51.77, Sodium 139, Potassium 4.1, Chloride 104, Carbon Dioxide 28.2, Anion Gap 10.9, BUN 33 H, Creatinine 1.68 H, Est GFR (CKD-EPI) 43.716, Glucose 120 H D, Calcium 8.1 L, Phosphorus 3.8, Magnesium 1.7 L, Total Bilirubin 0.4, AST 16, ALT 17, Alkaline Phosphatase 62, Total Protein 5.6 L, Albumin 3.4 L, Globulin 2.2, Albumin/Globulin Ratio 1.5 Documented By: Yovanny Rivera MD [id number] Signed By: <Electronically signed by Yovanny Rivera MD> 10/15/23 1828 [facility] Work Phone: Progress note 10-15-2023 Note Date & Type Note Facility 10-15-2023 Progress note Note Date/Time October 15, 2023 12:57pm [facility] [address] [place] [address] Cardiology Progress Note Signed Patient: Italia Allen MR#: [id number] : 1955 Acct:[id number] Age/Sex: 68 / M Adm Date: 4 Loc: Room: [address] [place] [address] Type: ADM IN Attending Dr: Yovanny Rivera MD Copies to: ~ Date of Service: 10/15/2023 Subjective Interval history: Patient feels better. Less short of breath. Creatinine 1.6 Exam Physical Exam Vital Signs: Temp Pulse Resp BP Pulse Ox O2 Del Method O2 Flow Rate 97.9 F 71 16 144/71 H 96 Nasal Cannula 2 10/15/23 11:54 10/15/23 11:54 10/15/23 11:54 10/15/23 11:54 10/15/23 11:54 10/15/23 11:54 10/15/23 11:54 HEENT Head: atraumatic Mouth: oral mucosae normal Eyes General: appearance normal, both eyes and all related structures Pupils: PERRL Neck Neck: normal visual inspection, supple and no lymphadenopathy noted Neck mass: No Thyroid: thyroid normal Carotids: normal carotid upstroke Chest Chest palpation & inspection: normal inspection of the chest Resp Effort & Inspection: normal respiratory effort Auscultation: clear to auscultation bilaterally, rales and rhonchi Cardio Palpation: normal PMI Rate: regular rate Rhythm: regular rhythm Heart Sounds: S1 normal, S2 normal and murmur systolic III/ GI Palpation: soft and no hepatosplenomegaly Percussion: normal to percussion Auscultation: normal bowel sounds Skin General: no rashes or lesions noted and dry skin Extrem General: full ROM, capillary refill normal and edema Laterality: bilaterally Severity: 1+ Objective Labs 10/15/23 03:48 10/15/23 03:48 Labs: Laboratory Results - last 24 hr 10/14/23 10/14/23 10/14/23 11:16 16:16 16:45 Corrected WBC Uncorrected WBC Count RBC Hgb Hct MCV MCH MCHC RDW Plt Count MPV Neut % (Auto) Lymph % (Auto) [place] % (Auto) Eos % (Auto) Baso % (Auto) Nucleat RBC Rel Count Neut # (Auto) Lymph # (Auto) [place] # (Auto) Eos # (Auto) Baso # (Auto) ESR 22 H PT INR APTT 35.7 PHA Creatinine Clear Sodium Potassium Chloride Carbon Dioxide Anion Gap BUN Creatinine Est GFR (CKD-EPI) Glucose POC Glucose 306 POC Glucose Comment Calcium Phosphorus Magnesium Total Bilirubin AST ALT Alkaline Phosphatase Total Protein Albumin Globulin Albumin/Globulin Ratio 10/15/23 10/15/23 10/15/23 03:48 07:11 09:50 Corrected WBC 9.8 Uncorrected WBC Count 9.8 RBC 3.97 Hgb 11.7 L Hct 35.0 L MCV 87.9 MCH 29.4 MCHC 33.4 RDW 15.1 H Plt Count 285 MPV 7.7 Neut % (Auto) 74.1 Lymph % (Auto) 11.9 [place] % (Auto) 9.3 Eos % (Auto) 3.7 Baso % (Auto) 1.0 Nucleat RBC Rel Count 0.1 Neut # (Auto) 7.3 Lymph # (Auto) 1.2 [place] # (Auto) 0.9 H Eos # (Auto) 0.4 Baso # (Auto) 0.1 ESR PT 12.6 INR 1.1 APTT 41.7 H 45.5 H PHA Creatinine Clear 51.77 Sodium 139 Potassium 4.1 Chloride 104 Carbon Dioxide 28.2 Anion Gap 10.9 BUN 33 H Creatinine 1.68 H Est GFR (CKD-EPI) 43.716 Glucose 120 H D POC Glucose 159 POC Glucose Comment Glu2: cleaned meter Calcium 8.1 L Phosphorus 3.8 Magnesium 1.7 L Total Bilirubin 0.4 AST 16 ALT 17 Alkaline Phosphatase 62 Total Protein 5.6 L Albumin 3.4 L Globulin 2.2 Albumin/Globulin Ratio 1.5 10/15/23 11:53 Corrected WBC Uncorrected WBC Count RBC Hgb Hct MCV MCH MCHC RDW Plt Count MPV Neut % (Auto) Lymph % (Auto) [place] % (Auto) Eos % (Auto) Baso % (Auto) Nucleat RBC Rel Count Neut # (Auto) Lymph # (Auto) [place] # (Auto) Eos # (Auto) Baso # (Auto) ESR PT INR APTT PHA Creatinine Clear Sodium Potassium Chloride Carbon Dioxide Anion Gap BUN Creatinine Est GFR (CKD-EPI) Glucose POC Glucose 257 POC Glucose Comment Glu2: cleaned meter Calcium Phosphorus Magnesium Total Bilirubin AST ALT Alkaline Phosphatase Total Protein Albumin Globulin Albumin/Globulin Ratio A&P - Cardiology (1) ACS (acute coronary syndrome): Code(s): I24.9 - Acute ischemic heart disease, unspecified Plan Assessment 1. Acute coronary syndrome 2. Hypertension 3. Diabetes mellitus 4. Obesity 5. Symptoms suggestive of heart failure rule out LV systolic dysfunction Plan 1. Switch to oral diuretics 2. Standard therapy for ACS including aspirin, heparin and metoprolol 3. Start statin 4. Check echocardiogram 5. Cardiac catheterization today. Risk, benefits, alternatives reviewed with the patient great length he understood and agreed Documented By: Ann Plata MD 10/15/23 1256 Signed By: <Electronically signed by MD Ann Plata> 10/15/23 1258 [facility] Work Phone: Procedure note 10-15-2023 Note Date & Type Note Facility 10-15-2023 Procedure note [facility] History and physical note 10-14-2023 Note Date & Type Note Facility 10-14-2023 History and physi andrew note Note Date/Time October 14, 2023 9:54am [facility] [address] [place] [address] Hospitalist H&P Signed Patient: Italia Allen MR#: [id number] : 1955 Acct:[id number] Age/Sex: 68 / M Adm Date: 4 Loc: Room: [address] [place] [address] Type: ADM IN Attending Dr: Alondra Gonzales MD Copies to: NON STAFF Alondra Gonzales MD~ HPI DATE OF EXAMINATION: 10/14/23 CHIEF COMPLAINT: Chest pain and difficulty breathing HISTORY OF PRESENT ILLNESS: Alcoholic this is a 68-year-old male with past medical history of hypertension, dyslipidemia, type 2 diabetes, and morbid obesity as well as CHF for the last 30years as per his words. Patient does not follow with cardiology and states thathe only takes a blood pressure pill. Patient also appears depressed on my encounter as he was crying when I asked him about where he lives with the lives alone or not, patient broke into tears remembering that his 1 month ago. He was brought as a transfer from [facility] ED. As per ED note at [facility],patient presented to the ED at [facility] with chest pain, described as deep pain in the substernal area, 2/10 intensity study with no radiation referral associated with shortness of breath and dyspnea on exertion. Patient did not quantify how many blocks he was but he said liquid barely walk some status before starting having shortness of breath that improves with rest. He did not have any nausea vomiting or palpitations or dizziness or syncope or diaphoresis. He showed activity ED at [facility] with oxygen saturation of 70% he was noticed to have bilateral lower extremity edema and he was started on BiPAP as well as was given IV Lopressor 1 dose and was started on heparin drip. His troponin wasuptrending EKG showed sinus tachycardia with no ischemic changes as per [facility] records(report not actual tracing). Labs: CBC showed white count of 12.2 with 76% left shift, hemoglobin of 12.6, platelets of 337. ABG showed pH of 7.38 with pCO2 of 36 and PaO2 of 139. Chemistry showed potassium 4.3 carbon dioxide 24.9 BUN of 35 and creatinine of 1.7 (I do not have a baseline for that). His glucose was 272 AST ALT were insignificant troponin on chemistry was 80 then up trended to 543 and then 982, then 1682. He is proBNP was 1033. Imaging: Chest x-ray showed findings consistent with CHF (again I reviewed the report and not the actual imaging). Patient is admitted for further workup and management here. Review of Systems Review of Systems Review of systems: ROS of 10 systems done during my encounter with the pt [facility] Medical History Biceps muscle tear Cholecystectomy planned Diabetes mellitus Hypertension Meds Medications and Allergies Allergies No Known Drug Allergies Allergy (Verified 10/14/23 10:46) Unknown Reaction Home Medications bumetanide 2 mg tablet 2 mg PO DAILY 10/14/23 [History Confirmed 10/14/23] diclofenac sodium 75 mg tablet,delayed release 75 mg PO BID 10/14/23 [History Confirmed 10/14/23] glipizide 5 mg tablet 10 mg PO BID 10/14/23 [History Confirmed 10/14/23] insulin detemir U-100 100 unit/mL (3 mL) subcutaneous pen 12 unit subcut BID 10/14/23 [History Confirmed 10/14/23] insulin glargine-yfgn 100 unit/mL (3 mL) subcutaneous pen (Semglee (insulin glargine-yfgn) Pen) 60 unit subcut DAILY 10/14/23 [History Confirmed 10/14/23] lisinopril 40 mg tablet 40 mg PO DAILY 10/14/23 [History Confirmed 10/14/23] Exam Physical Exam Vital Signs: Temp Pulse Resp BP Pulse Ox O2 Del Method O2 Flow Rate 98.2 F 99 18 166/83 H 96 Nasal Cannula 2 10/14/23 09:38 10/14/23 09:38 10/14/23 09:38 10/14/23 09:38 10/14/23 09:38 10/14/23 09:38 10/14/23 09:38 Narrative: Const General: cooperative, comfortable, lying in bed, flat affect and appears depressed Nutritional Appearance: obese HEENT Head: atraumatic Mouth: oral mucosae normal Eyes General: appearance normal, both eyes and all related structures Pupils: PERRL Neck Neck: normal visual inspection, supple and no lymphadenopathy noted Neck mass: No Thyroid: thyroid normal Carotids: normal carotid upstroke, No JVD Chest Chest palpation & inspection: normal inspection and there is no tenderness over the chest wall on palpation Resp Effort & Inspection: normal respiratory effort Auscultation: On nasal cannula not in increased work of breathing, decreased bilateral air entry, with crackles, but no wheezes Cardio Palpation: normal PMI Rate: regular rate Rhythm: regular rhythm Heart Sounds: S1 normal, S2 normal and there is a ANAIS on the right upper sternalborder GI Palpation: soft and no hepatosplenomegaly Percussion: normal to percussion Auscultation: normal bowel sounds Skin General: no rashes or lesions noted and dry skin Neuro General: patient alert, patient awake, patient oriented x3, tone normal and moves all extremities Extrem General: 2+ pitting bilateral edema in lower extremities, full ROM, capillary refill normal Assessment & Plan Assessment/Plan (1) ACS (acute coronary syndrome): (2) Acute hypoxic respiratory failure: (3) Systolic CHF, acute on chronic: Plan Acute hypoxic respiratory failure in the setting of acute systolic CHF exacerbation (Stage C) NSTEMI (HARLEEN score of 3) -Cardiology already consulted recommends standard therapy for ACS -Continue heparin drip, aspirin, and metoprolol tartrate 12.5 mg p.o. twice daily -Cardiac cath tomorrow -Start Lasix 40 mg IV twice daily -Patient currently on nasal cannula, effort breathing is noticed to be worseningstart patient on BiPAP -Continue monitor patient on 4 progressive floor -Strict I's and O's -Daily weights -Obtain Echo -I discussed plan with the patient at bedside in details -Continue glipizide and his home insulin dose if blood glucose POCT is elevated Elevated Creatinine, not sure if this is pt's baselien CKD or an HÉCTOR -Would continue Lisinopril for now -Obtain renal bladder ultrasound and urine studies and a bladder scan -Check BMP tomorrow am after some IV diuresis Full code DVT PPx: On therapeutic heparin GI PPx: Pantoprazole 40 mg IV daily IP vs OBS Justification Based on differential dx, clinical care plan, and risk of adverse events, if untreated, in my clinical judgement this patient requires an acute care setting as: INPATIENT because of an expectation of an over 2 midnight stay. Estimated length of stay (# of days): 4 Documented By: Alondra Gonzales MD 10/14/23 1561 Signed By: <Electronically signed by Alondra Gonzales MD> 10/14/23 5443 [facility] Work Phone: Consult note 10-14-2023 Note Date & Type Note Facility 10-14-2023 Consult note Note Date/Time October 14, 2023 2:51pm [facility] [address] [place] [address] Cardiology Consult Note Signed Patient: Italia Allen MR#: [id number] : 1955 Acct:[id number] Age/Sex: 68 / M Adm Date: 4 Loc: 4 Room: [address] [place] [address] Type: ADM IN Attending Dr: Alondra Gonzales MD Copies to: NON STAFF MD Ann Gordillo MD~ Cardiology HPI History of Present Illness Consult Date: 10/14/23 Reason for Consult: Cardiac consultation requested for evaluation for shortness of breath chest heaviness and acute coronary syndrome HPI: Mr. Allen is a 68 year old male who denies prior cardiac history presented to [facility] emergency room complaining of increasing shortness of breath and chest heaviness. He was evaluated and felt to have evidence of acute coronary syndrome and heart failure and arrangement was made to transfer the patient to [facility] for further care. The patient reports historyof longstanding diabetes mellitus and hypertension. He report over the last fewweeks he has been describing decreased exercise tolerance and dyspnea on exertion. He has seen his family physician on several occasion with adjustment of his medication but without improvement. Prior to presentation to the emergency room at [facility] he developed worsening shortness of breath and vague chest heaviness. He was given diuretics with improvement of his symptoms and transferred over here. At the time of evaluation he denies chest pain. His EKGdid appears nonacute. His enzymes showed serial rise consistent with acute coronary syndrome. The patient was started on appropriate therapy including beta-blockers and IV heparin. He has no chest pain at the time of evaluation but remains mildly short of breath. Review of Systems Review of Systems Review of systems: All review of system is negative other mentioned above [facility] Medical History Biceps muscle tear Cholecystectomy planned Diabetes mellitus Hypertension Social History Smoking Status: Never smoker Substance Use Type: None Meds Medications and Allergies Allergies No Known Drug Allergies Allergy (Verified 10/14/23 10:46) Unknown Reaction Home Medications bumetanide 2 mg tablet 2 mg PO DAILY 10/14/23 [History Confirmed 10/14/23] diclofenac sodium 75 mg tablet,delayed release 75 mg PO BID 10/14/23 [History Confirmed 10/14/23] glipizide 5 mg tablet 10 mg PO BID 10/14/23 [History Confirmed 10/14/23] insulin detemir U-100 100 unit/mL (3 mL) subcutaneous pen 12 unit subcut BID 10/14/23 [History Confirmed 10/14/23] insulin glargine-yfgn 100 unit/mL (3 mL) subcutaneous pen (Semglee (insulin glargine-yfgn) Pen) 60 unit subcut DAILY 10/14/23 [History Confirmed 10/14/23] lisinopril 40 mg tablet 40 mg PO DAILY 10/14/23 [History Confirmed 10/14/23] Exam Physical Exam Vital Signs: Temp Pulse Resp BP Pulse Ox O2 Del Method O2 Flow Rate 98.1 F 88 18 153/81 H 97 Nasal Cannula 2 10/14/23 12:00 10/14/23 12:00 10/14/23 12:00 10/14/23 12:00 10/14/23 12:00 10/14/23 12:00 10/14/23 12:00 Const General: cooperative, comfortable, no acute distress and well developed Nutritional Appearance: obese HEENT Head: atraumatic Mouth: oral mucosae normal Eyes General: appearance normal, both eyes and all related structures Pupils: PERRL Neck Neck: normal visual inspection, supple and no lymphadenopathy noted Neck mass: No Thyroid: thyroid normal Carotids: normal carotid upstroke Chest Chest palpation & inspection: normal inspection of the chest Resp Effort & Inspection: normal respiratory effort Auscultation: clear to auscultation bilaterally, rales and rhonchi Cardio Palpation: normal PMI Rate: regular rate Rhythm: regular rhythm Heart Sounds: S1 normal, S2 normal and murmur systolic III/ GI Palpation: soft and no hepatosplenomegaly Percussion: normal to percussion Auscultation: normal bowel sounds Skin General: no rashes or lesions noted and dry skin Neuro General: patient alert, patient awake, patient oriented x3, tone normal and moves all extremities Extrem General: full ROM, capillary refill normal and edema Laterality: bilaterally Severity: 1+ Psych Mental Status: mental status grossly normal Results - Cardiology Labs 10/14/23 11:16 10/14/23 11:27 Lab results: Cardiac Enzymes 10/14/23 Range/Units 11:27 AST 16 (13-39) U/L CBC 10/14/23 10/14/23 Range/Units 09:30 11:16 RBC 4.01 3.95 (3.90-5.60) X10E6/uL Hgb 11.8 L 11.6 L (13.0-17.0) g/dL Hct 35.3 L 35.1 L (38.8-50.0) % Plt Count 288 290 (150-450) x10E3/uL Neut # (Auto) 6.0 5.7 (1.8-7.7) x10E3/uL Lymph # (Auto) 0.9 L 0.9 L (1.00-4.8) x10E3/uL [place] # (Auto) 0.6 0.6 (0.0-0.8) x10E3/uL Eos # (Auto) 0.3 0.2 (0.0-0.45) x10E3/uL Baso # (Auto) 0.1 0.1 (0.0-0.2) x10E3/uL Comprehensive Metabolic Panel 10/14/23 Range/Units 11:27 Sodium 141 (136-145) mmol/L Potassium 4.1 (3.5-5.1) mmol/L Chloride 106 (98-107) mmol/L Carbon Dioxide 28.5 (21.0-31.0) mmol/L BUN 31 H (7-25) mg/dL Creatinine 1.61 H (0.70-1.30) mg/dL Glucose 220 H (70-100) mg/dL Calcium 8.2 L (8.6-10.3) mg/dL AST 16 (13-39) U/L ALT 17 (7-52) U/L Alkaline Phosphatase 59 (34-104) U/L Total Protein 5.6 L (6.4-8.9) gm/dL Albumin 3.3 L (3.5-5.7) gm/dL Intake and Output 10/13/23 10/14/23 10/14/23 23:59 07:59 15:59 Intake Total 250 / 250 Output Total 900 / 900 Balance -650 / -650 Intake: Oral 250 / 250 Output: Urine 900 / 900 Other: # Unmeasured Voids 0 # Bowel Movements 0 Weight 111 kg Date of Last Bowel Movement 10/13/23 Patient Weight 10/14/23 23:59 Weight 111 kg Lab 10/14/23 09:30 PT 13.0 H INR 1.1 APTT 31.1 EKG Interpretations EKG Attestation EKG: I reviewed this ECG and interpreted as documented below: (Sinustachycardia with nonspecific ST-T changes) A&P - Cardiology (1) ACS (acute coronary syndrome): Code(s): I24.9 - Acute ischemic heart disease, unspecified Plan Assessment 1. Acute coronary syndrome 2. Hypertension 3. Diabetes mellitus 4. Obesity 5. Symptoms suggestive of heart failure rule out LV systolic dysfunction Plan 1. Diuresis 2. Standard therapy for ACS including aspirin, heparin and metoprolol 3. Start statin 4. Check echocardiogram 5. Cardiac catheterization in a.m. Documented By: Ann Plata MD 10/14/23 1448 Signed By: <Electronically signed by MD Ann Plata> 10/14/23 [id number] [facility] Work Phone: Evaluation note Note Date & Type Note Facility Evaluation note Diagnosis Onset Date ACS (acute coronary syndrome) acute Acute hypoxic respiratory failure acute Systolic CHF, acute on chronic acute [facility] Work Phone: Hospital Discharge instructions Note Date & Type Note Facility Hospital Discharge instructions Additional Instructions Full code Monitor FSBS ACHS [facility] Work Phone: Chief Complaint and Reason for Visit Chief Complaint CHF, hypoxia Reason for Visit ACS (acute coronary syndrome) Acute hypoxic respiratory failure Systolic CHF, acute on chronic Advance Directives No Advanced Directives Records Found Advance Directive Response Recorded Date/ Time Advance Directives No May 30 024 2:08pm Summary Purpose Family History No Family History Records FoundNo Family History Records FoundNo Family History Records FoundNo Family History Records Found Additional Source Comments Care Teams (unrecognized sec tion and content) Team Status: Active Member Role Status Dates NON STAFF Primary Care Provider Active Team Status: Inactive Member Role Status Dates NON STAFF Primary Care Provider Active Start: October 14, 2023 End: October 15, 2023 Alondra Gonzales MD Admit Provider Active Start: Nick 2023 End: October 15, 2023 Ann Plata MD Other Provider Active St art: October 14, 2023 End: October 15, 2023 Yovanny Rivera MD Attending Provider Active Start: October 14, 2023 End: October 15, 2023 (unrecognized sect ion and content) No Status Records FoundNo Status Records FoundNo Status Records FoundNo Status Records Found INFORMATION SOURCE (unrecogn ized section and content) DATE CREATED AUTHOR 10/19/2023 [facility] DATE CREATED AUTHOR AUTHOR'S ORGANIZ ATION 11/10/2023 [facility] DATE CREATED AUTHOR AUTHOR'S ORGANIZ ATION 11/15/2023 [facility] DATE CREATED AUTHOR AUTHOR'S ORGANIZ ATION 11/16/2023 [facility] [place] FOR RECORDS PERTAINING TO PATIENTS WHO ARE OR HAVE BEEN ENROLLED IN A CHEMICAL DEPENDENCY/SUBSTANCEABUSE PROGRAM, SOME INFORMATION MAY BE OMITTED. This clinical summary was aggregated from multiple sources. Caution should be exercised in using it in the provision of clinical care. This summary normalizes information from multiple sources, and as a consequence, information in this document may materially change the coding, format and clinical context of patient data. In addition, data may be omitted in some cases. CLINICAL DECISIONS SHOULD BE BASED ON THE PRIMARY CLINICAL RECORDS. [facility] [employer] provides no warranty or guarantee of the accuracy or completeness of information in this document.
--- NOTE | 2023-11-19 15:17 | ED_ITS ---
HPI HPI - General Adult General Chief complaint: Urogenital-Male Stated complaint: Urinary Retention Time Seen by Provider: 11/19/23 15:05 Source: patient and family History of Present Illness HPI narrative: Patient is a 68-year-old male who presents to the emergency department for 12 hours of decreased urination, stating he can only dribble a small amount of urine. He denies fevers, vomiting. He states he has never needed a Seals ca theter in the past. He reports mild low back pain. He does take Bumex daily. Related Data Home Medications ?Medication ?Instructions ?Recorded ?Confirmed glipizide 10 mg tablet 10 mg PO BID 10/13/23 11/19/23 insulin detemir U-100 100 unit/mL 12 unit subcut BID 10/13/23 11/19/23 (3 mL) subcutaneous pen (Levemir FlexPen) insulin glargine 100 unit/mL (3 60 unit subcut DAILY 10/13/23 11/19/23 mL) subcutaneous pen (Lantus Solostar U-100 Insulin) lisinopril 40 mg tablet 40 mg PO DAILY 10/13/23 11/19/23 aspirin 81 mg chewable tablet 81 mg PO DAILY 11/19/23 11/19/23 (Aspirin Childrens) atorvastatin 80 mg tablet 80 mg PO DAILY 11/19/23 11/19/23 bumetanide 2 mg tablet 4 mg PO DAILY 11/19/23 11/19/23 carvedilol 25 mg tablet 25 mg PO DAILY 11/19/23 11/19/23 nitroglycerin 0.4 mg sublingual 0.4 mg sublingual Q5M PRN chest 11/19/23 11/19/23 tablet pain prasugrel 10 mg tablet 10 mg PO DAILY 11/19/23 11/19/23 sertraline 50 mg tablet 25 mg PO DAILY 11/19/23 11/19/23 Previous Rx's ?Medication ?Instructions ?Recorded isosorbide mononitrate 30 mg 30 mg PO DAILY #14 tabs 11/19/23 tablet,extended release 24 hr Allergies Allergy/AdvReac Type Severity Reaction Status Date / Time No Known Drug Allergies Allergy Verified 10/13/23 18:14 Opioid HPI Opioid Management Most Recent Opioid Data: No Data to Display Review of Systems ROS Constitutional Denies: fever or chills Ears, nose, mouth, and throat Denies: throat pain or nasal congestion Respiratory Denies: shortness of breath Gastrointestinal Reports: abdominal pain; Denies: nausea or vomiting Genitourinary Reports: difficulty urinating, decreased urine ouput and urinary dribbling; Denies: painful urination, urinary frequency or blood in urine Musculoskeletal Reports: back pain Integumentary/Breast Denies: rash Neurological Denies: numbness in extremities or weakness in extremities Hematologic/Lymphatic Denies: easy bruising or easy bleeding PFSH PFS Social History Little interest or pleasure in doing things: not at all Feeling down, depressed, or hopeless: not at all Exam Narrative Exam Narrative: Gen.: Awake, alert, in no distress Head: Normocephalic, atraumatic ENT: Moist mucous membranes Respiratory: No respiratory distress Gastrointestinal: Abdomen is soft, nondistended and nontender to palpation Extremities: Moves extremities equally Psych: Normal mood and affect Neuro: No focal neuro deficit Skin: Warm, dry, intact Constitutional Vital Signs, click to edit/add: Last Vital Signs Temp 99.1 F 11/19/23 15:08 Pulse 75 11/19/23 16:31 Resp 15 11/19/23 16:31 BP 153/71 H 11/19/23 16:31 Pulse Ox 96 11/19/23 16:31 O2 Del Method Room Air 11/19/23 15:08 Course Vital Signs Vital signs: Vital Signs Temperature 99.1 F 11/19/23 15:08 Pulse Rate 79 11/19/23 15:08 Respiratory Rate 20 11/19/23 15:08 Blood Pressure 124/64 11/19/23 15:08 Pulse Oximetry 94 L 11/19/23 15:08 Oxygen Delivery Method Room Air 11/19/23 15:08 Temperature 99.1 F 11/19/23 15:08 Pulse Rate 75 11/19/23 16:31 Respiratory Rate 15 11/19/23 16:31 Blood Pressure 153/71 H 11/19/23 16:31 Pulse Oximetry 96 11/19/23 16:31 Oxygen Delivery Method Room Air 11/19/23 15:08 Medical Decision Making [facility] Narrative Medical decision making narrative: At time of my evaluation, bladder scan has been performed showing 380 mL in the patient's bladder. He has a benign exam, he states that he has never needed a catheter before and we will not place a catheter today. I explained to the patient that this emergency department does not have much to offer him without placing a catheter for his urinary retention and he was given time to think about having this placed. Patient is agreeable to Seals catheter placement when reevaluated by nursing staff. After the Seals catheter was placed, patient's son reported that the patient had complained of chest heaviness. This apparently started immediately prior to Seals catheter placement. Patient denies shortness of breath, nausea, vomiting. He had 2 stents placed 2 weeks ago over at [facility]. He was seen in this emergency department 1 month ago and treated for non-STEMI, transferred to [facility]. A cardiac workup was initiated as soon as the patient complained of chest heaviness, he was ordered to have aspirin. Patient remains very defensive and uncooperative with obtaining a history. Son provides additional information, he states that the patient has never smoked. He is also noted based on documentation to be an insulin-dependent diabetic with high blood pressure. Patient revealed to nursing staff that he apparently had similar chest pain 3 days ago at home, he took a nitro with improvement of the chest pain and was not evaluated. 1710: Patient was given aspirin and 1 sublingual nitro. He maintained stable blood pressure. Chest pain resolved with nitroglycerin. Laboratory studies reviewed and noted with elevated BNP, normal troponin. EKG compared to 10/14/2023 with new T wave inversion in leads III and aVF, however Twave inversion was present on EKG from 10/13/23. Case was discussed with Dr. 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 He was made aware of the patient's presentation of chest heaviness, resolution with nitroglycerin and EKG changes. He stated that if the patient had 2 normal troponins, there is no maribell cation for transfer or admission, it is unlikely that the chest pain is related to ischemia so soon after his stents. Patient is hemodynamically stable with normal vital signs. Repeat troponin was obtained, decreased from previous. 1747: Patient was reevaluated by attending physician, he is hemodynamically stable and pain-free. He is discharged home with Seals catheter instructions to follow-up with cardiology and urology. Return to the emergency department if symptoms change or worsen. Imdur was given for home and cardiology recommendation. SHARED APC VISIT, PHYSICIAN ATTESTATION: [id number] I performed a substantive part of the MDM during the patient?s E/M visit. I personally evaluated and examined the patient. I personally made or approved the documented management plan and acknowledge its risk of complications. Medical Records Medical records reviewed: Yes I reviewed the patient's medical records Lab Data Lab results reviewed: Yes I reviewed the patient's lab results Labs: Lab Results 11/19/23 11/19/23 11/19/23 Range/Units 15:52 16:06 17:16 WBC 8.6 (4.0-11.0) 10^3/uL RBC 3.54 L (4.70-6.10) 10^6/uL Hgb 10.2 L (14.0-18.0) g/dL Hct 32.1 L (42.0-54.0) % MCV 90.7 (80.0-94.0) fL MCH 28.8 (25.9-34.0) pg MCHC 31.8 (29.9-35.2) g/dL RDW 14.2 (11.0-15.0) % Plt Count 276 (150-450) 10^3/uL MPV 9.6 (9.5-13.5) fL Neut % (Auto) 73.7 (43.0-75.0) % Lymph % (Auto) 11.2 L (20.5-60.0) % Person % (Auto) 9.0 (1.7-12.0) % Eos % (Auto) 5.0 (0.9-7.0) % Baso % (Auto) 0.8 (0.2-2.0) % Neut # (Auto) 6.3 (1.4-6.5) 10^3/uL Lymph # (Auto) 1.0 L (1.2-3.8) 10^3/uL Person # (Auto) 0.8 (0.3-0.8) 10^3/uL Eos # (Auto) 0.4 (0.0-0.7) 10^3/uL Baso # (Auto) 0.1 (0.0-0.1) 10^3/uL Abs Immat Gran (auto) 0.03 (0.00-0.03) 10^3/uL Imm/Tot Granulo (auto) 0.3 (0.0-0.5) % PT 11.7 H (9.0-11.6) sec INR 1.12 Sodium 138 (136-145) mmol/L Potassium 3.6 (3.5-5.1) mmol/L Chloride 103 (98-107) mmol/L Carbon Dioxide 27.7 (21.0-32.0) mmol/L Anion Gap 10.9 BUN 45.0 H (7.0-18.0) mg/dL Creatinine 2.34 H (0.70-1.30) mg/dL Est GFR ( Amer) 34 L (>=60) Est GFR (Non-Af Amer) 28 L (>=60) BUN/Creatinine Ratio 19.2 Glucose 102 (74-106) mg/dL Calcium 8.7 (8.5-10.1) mg/dL Total Bilirubin 0.3 (0.2-1.0) mg/dL AST 13 L (15-37) U/L ALT 16 (16-63) U/L Alkaline Phosphatase 78 (46-116) U/L Troponin I High Sens 20.8 20.2 (4.0-76.1) pg/mL NT-Pro-B Natriuret Pep 1435.0 H* (<=900.0) pg/mL Total Protein 6.3 L (6.4-8.2) g/dL Albumin 2.9 L (3.4-5.0) g/dL Globulin 3.4 g/dL Albumin/Globulin Ratio 0.9 Urine Color Lt. yellow (YELLOW) Urine Clarity Clear (CLEAR) Urine pH 6.0 (5.0-9.0) Ur Specific Imperial 1.010 (1.005-1.025) Urine Protein Negative (NEG/TRACE) mg/dL Urine Glucose (UA) Negative (NEGATIVE) mg/dL Urine Ketones Negative (NEGATIVE) mg/dL Urine Occult Blood Negative (NEGATIVE) Urine Nitrite Negative (NEGATIVE) Urine Bilirubin Negative (NEGATIVE) Urine Urobilinogen 0.2 (0.2-1.0) EU/dL Ur Leukocyte Esterase Negative (NEGATIVE) Imaging Data Chest x-ray: Attestation: I have reviewed the pertinent imaging results. Radiologist's impression: ITS Impressions Chest X-Ray 11/19/23 15:43 IMPRESSION: Interval improvement in the overall appearance of the chest. There is no evidence of a focal infiltrate or overt cardiac decompensation. Electronically authenticated by: PEDRO GREENE Date: 11/19/2023 16:25 ECG Data Attestation: I personally reviewed and interpreted this ECG as follows: (Sinus rhythm at a rate of 72, T wave inversion in lead III and aVF, no acute ST elevation. Ectopy noted on cardiac monitoring, no ectopy on EKG. EKG reviewed by attending physician) Discharge Plan Discharge Chief Complaint: Urogenital-Male Clinical Impression: Acute urinary retention, Chest pain Patient Disposition: Home, Self-Care Time of Disposition Decision: 17:44 Condition: Good Prescriptions / Home Meds: New isosorbide mononitrate 30 mg tablet extended release 24 hr 30 mg PO DAILY Qty: 14 0RF No Action glipizide 10 mg tablet 10 mg PO BID insulin glargine [Lantus Solostar U-100 Insulin] 100 unit/mL (3 mL) insulin pen 60 unit SUBCUT DAILY Levemir FlexPen 100 unit/mL (3 mL) insulin pen 12 unit SUBCUT BID lisinopril 40 mg tablet 40 mg PO DAILY bumetanide 2 mg tablet 4 mg PO DAILY carvedilol 25 mg tablet 25 mg PO DAILY atorvastatin 80 mg tablet 80 mg PO DAILY prasugrel 10 mg tablet 10 mg PO DAILY sertraline 50 mg tablet 25 mg PO DAILY aspirin [Aspirin Childrens] 81 mg tablet,chewable 81 mg PO DAILY nitroglycerin 0.4 mg tablet, sublingual 0.4 mg sublingual Q5M PRN (Reason: chest pain) Print Language: French Instructions: Chest Pain (ED), Urinary Retention in Men (ED), Seals Catheter Placement and Care (ED) Referrals: ANN PLATA [Physician] - 1 week Samara Schultz NP [Primary Care Provider] - 1 week Rahul Orozco MD [Physician] - 1 week
--- NOTE | 2023-11-19 15:21 | PC.NURSE ---
pt c/o urine retention, only dribbling Urine since 299.
[2023-11-19] MEDS: LIDOCAINE 2% JELLY 10 ML UR (15:35)
--- NOTE | 2023-11-19 15:43 | ECG_ITS ---
The Test Date: 2023-11-19 Pat Name: ITALIA ALLEN Department: Room: - Gender: Male [employer]: : 1955 Requested By: Order Number: [id number] Reading MD: LATRICE OWEN Measurements Intervals Cullen Rate: 72 P: 90 NH: 194 QRS: 64 QRSD: 98 T: -14 QT: 386 QTc: 410 Interpretive Statements [address]/T wave changes, can't exclude inferolateral ischemia 9150 abnormal ECG Electronically Signed On 11-19-2023 22:57:20 EDT by LATRICE OWEN
--- NOTE | 2023-11-19 15:43 | XR_ITS ---
The [address] [address] Patient Name: ITALIA ALLEN MRN: [id number] date: 1955 Sex: M Assigned Patient Location: ER Current Patient Location: ER Accession/Order Number: [id number] Exam Date: 11/19/2023 16:10 Report Date: 11/19/2023 16:25 At the request of: DAVI MARTE Procedure: XR chest 1V EXAM: XR chest 1V at 1603 hours HISTORY: Chest pain COMPARISON: 10/13/2023 TECHNIQUE: AP upright portable chest x-ray FINDINGS: The heart remains mildly enlarged without overt cardiac decompensation. There is been interval improvement of vascular congestion and slight prominence of interstitial markings throughout the lungs. No acute infiltrate, effusion or pneumothorax is identified. The osseous structures are grossly intact. XR/XR chest 1V IMPRESSION: Interval improvement in the overall appearance of the chest. There is no evidence of a focal infiltrate or overt cardiac decompensation. Electronically authenticated by: PEDRO GREENE Date: 11/19/2023 16:25
[2023-11-19] MEDS: ASPIRIN 81 MG TAB.CHEW 162 MG PO (15:58)
[2023-11-19 16:03] LABS: Basophils Absolute Auto 0.1 10^3/uL (0.0-0.1); Basophils Percent Auto 0.8 % (0.2-2.0); Eosinophils Absolute Auto 0.4 10^3/uL (0.0-0.7); Hematocrit 32.1 % (42.0-54.0); Hemoglobin 10.2 g/dL (14.0-18.0); Immature Granulocytes Abs Auto 0.03 10^3/uL (0.00-0.03); Immature Granulocytes Pct Auto 0.3 % (0.0-0.5); Lymphocytes Percent Auto 11.2 % (20.5-60.0); Mean Corpuscular HGB Conc 31.8 g/dL (29.9-35.2); Mean Corpuscular Hemoglobin 28.8 pg (25.9-34.0); Mean Corpuscular Volume 90.7 fL (80.0-94.0); Mean Platelet Volume 9.6 fL (9.5-13.5); Monocytes Absolute Auto 0.8 10^3/uL (0.3-0.8); Neutrophils Absolute Auto 6.3 10^3/uL (1.4-6.5); Neutrophils Percent Auto 73.7 % (43.0-75.0); Platelet Count 276 10^3/uL (150-450); Red Blood Count 3.54 10^6/uL (4.70-6.10); Red Cell Distribution Width 14.2 % (11.0-15.0); White Blood Count 8.6 10^3/uL (4.0-11.0)
--- NOTE | 2023-11-19 16:12 | PC.NURSE ---
2 stents placed 2 weeks ago at [facility]
[2023-11-19 16:13] LABS: INR 1.12; Prothrombin Time 11.7 sec (9.0-11.6)
[2023-11-19 16:21] LABS: Alanine Aminotransferase 16 U/L (16-63); Albumin Globulin Ratio 0.9; Albumin Level 2.9 g/dL (3.4-5.0); Alkaline Phosphatase 78 U/L (46-116); Anion Gap 10.9; Aspartate Amino Transferase 13 U/L (15-37); BUN Creatinine Ratio 19.2; Bilirubin Total 0.3 mg/dL (0.2-1.0); Calcium 8.7 mg/dL (8.5-10.1); Carbon Dioxide 27.7 mmol/L (21.0-32.0); Chloride 103 mmol/L (98-107); Estimated GFR (African America 34 (>=60); Estimated GFR (Non-African Ame 28 (>=60); Globulin 3.4 g/dL; Glucose 102 mg/dL (74-106); Potassium 3.6 mmol/L (3.5-5.1); Sodium 138 mmol/L (136-145); Total Protein 6.3 g/dL (6.4-8.2); Troponin I High Sensitivity 20.8 pg/mL (4.0-76.1)
[2023-11-19 16:26] LABS: Bilirubin Urine NEGATIVE (NEGATIVE); Blood Urine NEGATIVE (NEGATIVE); Clarity Urine CLEAR (CLEAR); Color Urine LT. YELLOW (YELLOW); Glucose Urine UA NEGATIVE (NEGATIVE); Ketones Urine NEGATIVE (NEGATIVE); Leukocyte Esterase Urine NEGATIVE (NEGATIVE); Nitrite Urine NEGATIVE (NEGATIVE); Protein Urine NEGATIVE (NEG/TRACE); Urobilinogen Urine 0.2 EU/dL (0.2-1.0)
[2023-11-19 16:28] LABS: Urine Microscopic Indicated NO
[2023-11-19] MEDS: NITROGLYCERIN 0.4 MG BOTTLE SL (16:50)
[2023-11-19 17:36] LABS: Troponin I High Sensitivity 20.2 pg/mL (4.0-76.1)
== END 2023-11-19 18:20 | disposition home or self-care (01) ==
PROVIDERS: Physician Assistant; Emergency Provider Emergency Medicine; PCP Nurse Practitioner Family
DX: R33.9 Retention of urine, unspecified (principal); R07.9 Chest pain, unspecified
CPT/HCPCS: 36415; 71045; 80053; 81003; 83880; 84484; 85025; 85610; 93005; 99285

== ENCOUNTER 2023-12-08 15:47 | Inpatient (IN) | payer MEDICARE, SELFPAY ==
[2023-12-08] VITALS (26 sets, daily range): BP systolic 117–163; BP diastolic 63–89; PULSE 75–86; TEMP 36.7–36.8; O2SAT 85–100; BMI 37.2; BMI 37.0
--- OUTSIDE RECORDS SUMMARY | 2023-12-08 15:55 | XMS_ITS | CCD ---
Author Organization [facility] Care Team Providers Care Teacher Adventure Education Name Role Phone NON STAFF Primary Care Provider UnavailMD Alondra Rodriguez Admit Provider MD Ann Plata Other Provider MD Yovanny Rivera Attending Provider [phone] Alondra Gonzales Admitting Unavailable NON STAFF Primary Care Unavailable Yovanny Rivera Attending Unavailab Ann Zamarripa Consulting Unavailable ANN PLATA Attending Unavailable ANN PLATA Referring Unavailable JASPREET DAVID Admitting Unavailable NISSA BENÍTEZ Attending Unavailable LORIN BUSH Consulting Unavailable CARL WILEY Attending Unavailable INDERJIT COOLEY Referring Unavailable GREGOR VILLASEÑOR Primary Care Physician FATEMEH COLEMAN Attending Unavailable Unavailable Primary Care Provider UnavailMarine Willoughby Attending Unavailable Marine Grier Attending Unavailable Marine Grier Attending Unavailable Allergies Allergy Classification Reported Allergen(s) Allergy Type Date of Onset Reaction(s) Facility (1 source) No Known Medication Allergies; Translations: [No Known Medication Allergies] Propensity to adverse reactions (disorder) [facility] Repository Medications Current Medications Medication Drug Class(es) Dates Sig (Normalized) Sig (Original) 3 ML insulin glargine-yfgn 100 UNT/ML Pen Injector [Semglee] (2 sources) Start: 11-22-2023 Semglee (Prefilled Pen) 100 units/mL subcutaneous solution Refills(s) 0 Start Date: 11/22/23 Status: Ordered aspirin 81 mg oral capsule (5 sources) Platelet Aggregation Inhibitor, Nonsteroidal Anti-inflammatory Drug Start: 11-22-2023 take 1 mg by mouth every twenty-four hours aspirin 81 mg oral capsule mg cap(s), Oral, q24hr Start Date: 11/22/23 Status: Ordered Start: 10-15-2023 take 1 tablet by eloisa th once daily aspirin 81 MG EC tablet Take 81 mg by mouth Daily 10/15/2023 Active atorvastatin 80 mg oral tablet (4 sources) HMG-CoA Reductase Inhibitor Start: 11-22-2023 take 1 tablet by mouth once daily atorvastatin 80 mg Tab 80 mg = 1 tab(s), Oral, Daily Start Date: 11/22/23 Status: Ordered bumetanide 2 mg oral tablet (5 sources) Loop Diuretic Start: 10-14-2023 End: 11-27-2024 bumetanide 2 mg Tab 2 mg = 1 tab(s), Oral Start Date: 11/22/23 Status: Ordered carvedilol 25 mg oral tablet (4 sources) alpha-Adrenergic Neena, beta-Adrenergic Neena Start: 11-22-2023 take 1 tablet by mouth twice daily carvedilol 25 mg Tab 25 mg = 1 tab(s), Oral, BID Start Date: 11/22/23 Status: Ordered 10 ml furosemide 10 mg/ml injection (1 source) Loop Diuretic Start: 10-15-2023 take 40 mg intravenously twice daily Furosemide Active 40 MG IV-PUSH BID@0800,1600 0 October 15, 2023 12:00am glipiZIDE 5 mg oral tablet (5 sources) Sulfonylurea Start: 11-22-2023 take 1 tablet by mouth once daily glipiZIDE 5 mg Tab 5 mg = 1 tab(s), Oral, Daily Start Date: 11/22/23 Status: Ordered Start: 10-14-2023 take 2 tablets by mo uth in the morning glipiZIDE (Glucotrol) 5 MG tablet Take 10 mg by mouth in the morning and 10 mg in the evening. Take before meals. 10/14/2023 Active Start: 10-14-2023 take 10 mg by mouth twice cora y Glipizide Active 10 MG PO Twice daily October 14, 2023 12:00am 3 ml insulin detemir 100 unt/ml pen injector (3 sources) Insulin Analog Start: 10-14-2023 inject 12 [IU] by subcutaneous injection twice daily Insulin Detemir U-100 Active 12 UNIT SUBCUT Twice daily October 14, 2023 12:00am Start: 10-13-2023 inject 12 [IU] by britt bcutaneous injection in the morning insulin detemir (Levemir) 100 UNIT/ML pen Inject 12 Units under the skin in the morning and 12 Units in the evening. 10/13/2023 Active 3 ml insulin glargine 100 unt/ml pen injector (2 sources) Insulin Analog Start: 10-15-2023 Lantus SoloSta r 100 UNIT/ML pen 1 (one) time each day at the same time 10/15/2023 Active Insulin Glargine-Yfgn (Semglee(Insulin Glarg-Yfgn)Pen) 100 unit/mL (3 mL) insulin pen (2 sources) Start: 10-15-2023 Insulin Glargi ne-Yfgn (Semglee(Insulin Glarg-Yfgn)Pen) 100 unit/mL (3 mL) insulin pen Active 30 UNIT SUBCUT Daily October 15, 2023 5:56pm Start: 10-14-2023 End: 10-15-2023 Insulin Glargine-Yfgn (Semgl ee(Insulin Glarg-Yfgn)Pen) 100 unit/mL (3 mL) insulin pen Discontinued 60 UNIT SUBCUT Daily October 14, 2023 12:00am October 15, 2023 5:57pm lisinopril 40 mg oral tablet (5 sources) Angiotensin Converting Enzyme Inhibitor Start: 10-14-2023 lisinopril 40 mg Tab Refills(s) 0 Start Date: 11/22/23 Status: Ordered metoprolol tartrate 25 mg oral tablet (1 source) beta-Adrenergic Neena Start: 10-15-2023 take 25 mg by mouth twice daily Metoprolol Tartrate Active 25 MG PO Twice daily 0 October 15, 2023 12:00am nitroglycerin 0.4 mg sublingual tablet (4 sources) Nitrate Vasodilator Start: 10-24-2023 nitroglycerin 0.4 mg sublingual Tab 0.4 mg = 1 tab(s), SubLingual, q5min, PRN for chest pain Start Date: 11/22/23 Status: Ordered prasugrel 10 mg oral tablet (4 sources) P2Y12 Platelet Inhibitor Start: 10-25-2023 End: 10-22-2024 take 1 tablet by mouth once daily prasugrel 10 mg Tab 10 mg = 1 tab(s), Oral, Daily Start Date: 11/22/23 Status: Ordered Zoloft (2 sources) Serotonin Reuptake Inhibitor Start: 11-22-2023 Zoloft Oral, Daily, Refills(s) 0 Start Date: 11/22/23 Status: Ordered tamsulosin hydrochloride 0.4 mg oral capsule (2 sources) alpha-Adrenergic Neena Start: 11-22-2023 take 1 capsule by mouth once daily tamsulosin 0.4 mg Cap 0.4 mg = 1 cap(s), Oral, Daily, # 30 cap(s), Refills(s) 11, Pharmacy: [id number], 178, cm, 11/22/23 15:47:00 EDT, Height/Length Dosing, 104.4, kg, 11/22/23 15:47:00 EDT, Weight Dosing Start Date: 11/22/23 Status: Ordered Completed/Discontinued Medications Medication Drug Class(es) Dates Sig (Normalized) Sig (Original) diclofenac sodium 75 mg delayed release oral tablet (3 sources) Nonsteroidal Anti-inflammatory Drug Start: 10-08-2023 End: 10-15-2023 take 75 mg by mouth twice daily Diclofenac Sodium Discontinued 75 MG PO Twice daily October 14, 2023 12:00am October 15, 2023 5:57pm Problems Problem Classification Problem Date Documented Date Episodic/Chronic Acute myocardial infarction (2 sources) Non-ST elevation (NSTEMI) myocardial infarction; Translations: [Non-ST elevation (NSTEMI) myocardial infarction (Multi)] Onset: 4 Chronic Calculus of urinary tract (2 sources) Kidney stone 11-22-2023 Episodic Chronic kidney disease (2 sources) Chronic kidney disease; Translations: [Chronic kidney disease, stage 3a (Multi)] Onset: 4 Congestive heart failure; nonhypertensive (7 sources) Acute on chronic systolic heart failure; Translations: [Acute on chronic systolic (congestive) heart failure] Onset: 4 10-14-2023 Chronic Coronary atherosclerosis and other heart disease (9 sources) Acute coronary syndrome; Translations: [Acute ischemic heart disease, unspecified] Onset: 4 10-14-2023 Chronic Diabetes mellitus with complications (4 sources) Peripheral angiopathy due to diabetes mellitus; Translations: [Type 2 diabetes mellitus with diabetic peripheral angiopathy without gangrene] 11-29-2023 Chronic Diabetes mellitus without complication (4 sources) Type 2 diabetes mellitus without complications; Translations: [Type 2 diabetes mellitus] Onset: 4 Chronic Disorders of lipid metabolism (2 sources) Hypercholesterolemia 11-22-2023 Chronic Essential hypertension (6 sources) Essential (primary) hypertension; Translations: [Hypertensive disorder] Onset: 4 Chronic Genitourinary symptoms and ill-defined conditions (1 source) Retention of urine; Translations: [Retention of urine, unspecified] Onset: 4 Episodic Mood disorders (2 sources) Depressive disorder 11-22-2023 Chronic Mycoses (2 sources) Onychomycosis due to dermatophyte ; Translations: [Tinea unguium] 11-29-2023 Episodic Occlusion or stenosis of precerebral arteries (2 sources) Occlusion and stenosis of right carotid artery; Translations: [Occlusion and stenosis of right carotid artery] Onset: 4 Chronic Osteoarthritis (2 sources) Arthritis 11-22-2023 Chronic Other aftercare (2 sources) 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; Translations: [jail (current) use of insulin (Multi)] Onset: 4 Episodic Other circulatory disease (2 sources) Other disorders of arteries, arterioles and capillaries in diseases classified elsewhere; Translations: [Other disorders of arteries, arterioles and capillaries in diseases classified elsewhere ([facility])] Onset: 4 Chronic Other lower respiratory disease (2 sources) Shortness of breath; Translations: [Shortness of breath] Onset: 4 Episodic Other nervous system disorders (2 sources) Other chronic pain; Translations: [Other chronic pain] Onset: 4 Chronic Other nutritional; endocrine; and metabolic disorders (2 sources) Body mass index (BMI) 36.0-36.9, adult; Translations: [Body mass index (BMI) 36.0-36.9, adult] Onset: 4 Chronic Other skin disorders (2 sources) Dystrophia unguium; Translations: [Nail dystrophy] 11-29-2023 Episodic Peripheral and visceral atherosclerosis (2 sources) Peripheral vascular disease, unspecified; Translations: [Peripheral vascular disease, unspecified ([facility])] Onset: 4 Chronic Residual codes; unclassified (2 sources) Edema, unspecified; Translations: [Edema, unspecified] Onset: 4 Episodic Residual codes; unclassified (2 sources) History of headache 11-22-2023 Episodic Respiratory failure; insufficiency; arrest (adult) (3 sources) Acute respiratory failure; Translations: [Acute respiratory failure with hypoxia] Onset: 4 10-14-2023 Episodic Results Test Name Value Interpretation Reference Range Facility Ambulatory Visit Summaryon 1 Ambulatory Visit Summary Ambulatory Visit Summary ITALIA ALLEN :1955 Visit Date:11/22/2023 Ambulatory Visit Instructions Your Diagnosis Urinary retention Your Care Team Attending Physician - RADHA Grier APRN, [place] X Primary Care Physician - GREGOR VILLASEÑOR CNP This Is Your Medications List aspirin (aspirin 81 mg oral capsule) atorvastatin (atorvastatin 80 mg Tab) bumetanide (bumetanide 2 mg Tab) carvedilol (carvedilol 25 mg Tab) glipiZIDE (glipiZIDE 5 mg Tab) insulin glargine (Semglee (Prefilled Pen) 100 units/mL subcutaneous solution) lisinopril (lisinopril 40 mg Tab) nitroglycerin (nitroglycerin 0.4 mg sublingual Tab) prasugrel (prasugrel 10 mg Tab) sertraline (Zoloft) Procedures Performed Cholecystectomy, Tonsillectomy. Discharge Vitals Heart Rate (Peripheral) 76 Respiratory Rate 16 Blood Pressure 110/60 Height 178 cm Height 70 in Weight 104.4 kg Weight 229.68 lb BMI 32.95 Medications What How Much When Instructions Unchanged aspirin (aspirin 81 mg oral capsule) By Mouth Every 24 hours Unchanged atorvastatin (atorvastatin 80 mg Tab) 1 Tablets By Mouth Every day Unchanged bumetanide (bumetanide 2 mg Tab) 1 Tablets By Mouth Unchanged carvedilol (carvedilol 25 mg Tab) 1 Tablets By Mouth 2 times a day Unchanged glipiZIDE (glipiZIDE 5 mg Tab) 1 Tablets By Mouth Every day Unchanged insulin glargine (Semglee (Prefilled Pen) 100 units/ mL subcutaneous solution) Unchanged lisinopril (lisinopril 40 mg Tab) Unchanged nitroglycerin (nitroglycerin 0.4 mg sublingual Tab) 1 Tablets Sublingual Every 5 minutes as needed for for chest pain Unchanged prasugrel (prasugrel 10 mg Tab) 1 Tablets By Mouth Every day Unchanged sertraline (Zoloft) By Mouth Every day Allergies No Known Medication Allergies Problems Ongoing - Any problem that you are currently receiving treatment for. Arthritis Depression High cholesterol History of headache History of heart attack Hypertension Kidney stones Type 2 diabetes mellitus Patient Survey You may receive a survey via text or e-mail asking about your office visit. Please share your experience with us by completing your survey. We appreciate your feedback and thank you for choosing us for your care. Normal [facility] ECG 12-LEADon 11-13-2023 ECG 12-LEAD Ventricular Rate 72 Atrial Rate 72 P-R Interval 188 QRS Duration 96 Q-T Interval 398 QTC Calculation(Bazett) 435 P Lee -13 R Lee 9 T Lee 36 QRS Count 12 Q Onset 216 P Onset 122 P Offset 163 T Offset 415 QTC Fredericia 423 Diagnosis Normal sinus rhythm Normal ECG When compared with ECG of 16-OCT-2023 08:50, No significant change was found Confirmed by Mere Urban ([id number]) on 11/14/2023 6:48:02 PM Normal [facility] CBC panel Auto (Bld)on 10-23 Erythrocyte distribution width (RBC) [Ratio] 15.0 % High 11.5-14.[address] [facility] Comment on above: Performed By: #### 5 8077-9 #### ERICA Tam ([id number]) [facility] ([facility]) [address] [place] [address] 42884 Hematocrit (Bld) [Volume fraction] 36.3 % Low 41.0-52.[address] [facility] Comment on above: Performed By: #### 5 8077-9 #### ERICA Tam ([id number]) [facility] ([facility]) [id number] [place] [address] 91566 Hemoglobin (Bld) [Mass/Vol] 11.4 g/dL Low 13.5-17.[address] [facility] Comment on above: Performed By: #### 5 8077-9 #### ERICA Tam ([id number]) [facility] ([facility]) [address] [place] [address] 63525 MCH (RBC) [Entitic mass] 29.1 pg Normal 26.0-34.[address] [facility] Comment on above: Performed By: #### 5 8077-9 #### ERICA Tam ([id number]) [facility] ([facility]) [address] [place] [address] 96349 MCHC (RBC) [Mass/Vol] 31.4 g/dL Low 32.0-36.0 [facility] Comment on above: Performed By: #### 5 8077-9 #### ERICA Tam ([id number]) [facility] ([facility]) [address] [place] [address] 50025 MCV (RBC) [Entitic vol] 93 fL Normal 80-[address] [facility] Comment on above: Performed By: #### 5 8077-9 #### ERICA Tam ([id number]) [facility] ([facility]) [address] [place] [address] 91761 Nucleated RBC/100 WBC (Bld) [Ratio] 0.0 /100 WBCs Normal 0.0-0.[address] [facility] Comment on above: Performed By: #### 5 8077-9 #### ERICA Tam ([id number]) [facility] ([facility]) [address] [place] [address] 61672 Platelets (Bld) [#/Vol] 313 x10*3/uL Normal 150-[address] [facility] Comment on above: Performed By: #### 5 8077-9 #### ERICA Tam ([id number]) [facility] ([facility]) [address] [place] [address] 00611 RBC (Bld) [#/Vol] 3.92 x10*6/uL Low 4.50-5.90 [facility] Comment on above: Performed By: #### 5 8077-9 #### ERICA Tam ([id number]) [facility] ([facility]) [address] [place] [address] WBC (Bld) [#/Vol] 8.9 x10*3/uL Normal 4.4-11.3 [facility] Comment on above: Performed By: #### 5 8077-9 #### ERICA Tam ([id number]) [facility] ([facility]) [id number] [place] [address] 92622 Glucose Test strip manual (B ld) [Mass/Vol]on 10-24-2023 Glucose [Mass/Vol] 203 mg/dL High 74-99 [facility] Comment on above: Performed By: #### 5 8077-9 #### ERICA Tam ([id number]) [facility] ([facility]) [address] [place] [address] 67617 Renal function 2000 panelon 10-24-2023 Albumin BCP dye [Mass/Vol] 3.2 g/dL Low 3.4-5.[address] [facility] Comment on above: Performed By: #### 5 8077-9 #### ERICA Tam ([id number]) [facility] ([facility]) [id number] [place] [address] 33673 Anion gap [Moles/Vol] 12 mmol/L Normal 10-20 [facility] Comment on above: Performed By: #### 5 8077-9 #### ERICA Tam ([id number]) [facility] ([facility]) [id number] [place] [address] 62366 Calcium [Mass/Vol] 8.4 mg/dL Low 8.6-10.6 [facility] Comment on above: Performed By: #### 5 8077-9 #### ERICA Tam ([id number]) [facility] ([facility]) [id number] [place] [address] 86887 Chloride [Moles/Vol] 105 mmol/L Normal 98-107 [facility] Comment on above: Performed By: #### 5 8077-9 #### ERICA Tam ([id number]) [facility] ([facility]) [address] [place] [address] CO2 [Moles/Vol] 24 mmol/L Normal 21-32 [facility] Comment on above: Performed By: #### 5 8077-9 #### ERICA Tam ([id number]) [facility] ([facility]) [address] [place] [address] Creatinine [Mass/Vol] 1.72 mg/dL High 0.50-1.30 [facility] Comment on above: Performed By: #### 5 8077-9 #### ERICA Tam ([id number]) [facility] ([facility]) [id number] [place] [address] 49889 Glomerular filtration rate/1.73 sq M.predicted 42 mL/min/1.73m*2 Low >[address] [facility] Comment on above: Result Comment: Calc ulations of estimated GFR are performed using the 2020 CKD-EPI Study Refit equation without the race variable for the IDMS-Traceable creatinine methods. https://jasn.asnjournals.org/content//ASN.69079 04220 Performed By: #### 5 8077-9 #### ERICA Tam ([id number]) [facility] ([facility]) [address] [place] [address] Glucose [Mass/Vol] 184 mg/dL High 74-99 [facility] Comment on above: Performed By: #### 5 8077-9 #### ERICA Tam ([id number]) [facility] ([facility]) [address] [place] [address] Phosphate [Mass/Vol] 3.9 mg/dL Normal 2.5-4.9 [facility] Comment on above: Result Comment: The performance characteristics of phosphorus testing in heparinized plasma have been validated by the individual laboratory site where testing is performed. Testing on heparinized plasma is not approved by the FDA; however, such approval is not necessary. Performed By: #### 5 8077-9 #### ERICA Tam ([id number]) [facility] ([facility]) [address] [place] [address] Potassium [Moles/Vol] 4.1 mmol/L Normal 3.5-5.3 [facility] Comment on above: Performed By: #### 5 8077-9 #### ERICA MCDONALD L ([id number]) [facility] ([facility]) [id number] [place] [address] 06479 Sodium [Moles/Vol] 137 mmol/L Normal 136-145 [facility] Comment on above: Performed By: #### 5 8077-9 #### ERICA MCDONALD L ([id number]) [facility] ([facility]) [id number] [place] [address] 98594 Urea nitrogen [Mass/Vol] 38 mg/dL [facility] 6-[address] [facility] Comment on above: Performed By: #### 5 8077-9 #### ERICA MCDONALD L ([id number]) [facility] ([facility]) [id number] [place] [address] 83217 Activated clotting timeon ACT Coag (Bld) [address] Comment on above: Result Comment: Targ et ACT range will vary based on the patient population, clinical status, and surgical intervention occurring. Performed By: #### 5 8077-9 #### ERICA MCDONALD L ([id number]) [facility] ([facility]) [id number] [place] [address] 04802 ACT Coag (Bld) [address] Comment on above: Result Comment: Targ et ACT range will vary based on the patient population, clinical status, and surgical intervention occurring. Performed By: #### 5 8077-9 #### ERICA MCDONALD L ([id number]) [facility] ([facility]) [id number] [place] [address] 89907 ACT Coag (Bld) [address] Comment on above: Result Comment: Targ et ACT range will vary based on the patient population, clinical status, and surgical intervention occurring. 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 Heart failure. Recent myocardial infarction. Recent [place]. Medical History: Stress test performed: No. CTA performed: No. [facility] accessed: No. LVEF Assessed: Yes. LVEF = [...] worsening dyspnea. He was subsequently transferred to [facility] for further workup. 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 Transthoracic echocardiogram demonstrated an LVEF of 45 to 50%. He was then transferred to [facility] for CABG evaluation. Sadly, his about [...] was calcified. 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 Coronary Interventions: After infiltration with 2% Lidocaine, the right was cannulated with a modified Seldinger technique with ultrasound guidance. Subsequently a 6 Bel[place]ian sheath was placed antegrade in the right. A 6 Bel[place]ian EBU 3.5 guide catheter was advanced over [...] treated with a 3.5 x 15 mm Scott drug-eluting stent at 12 rodrigo. Post-stent intravascular ultrasound assessment with the [place] catheter was performed. IVUS demonstrated an [...] with 4 pa (more content not included)... Normal [facility] CBC panel Auto (Bld)on 10-22 Erythrocyte distribution width (RBC) [Ratio] 14.6 % High 11.5-14.[address] [facility] Comment on above: Performed By: #### 7 77-3 #### ERICA Tam ([id number]) [facility] ([facility]) [address] [place] [address] 31926 Hematocrit (Bld) [Volume fraction] 37.2 % Low 41.0-52.[address] [facility] Comment on above: Performed By: #### 7 77-3 #### ERICA MCDONALD L ([id number]) [facility] ([facility]) [id number] [place] [address] 67746 Hemoglobin (Bld) [Mass/Vol] 11.2 g/dL Low 13.5-17.[address] [facility] Comment on above: Performed By: #### 7 77-3 #### ERICA MCDONALD L ([id number]) [facility] ([facility]) [id number] [place] [address] 13088 MCH (RBC) [Entitic mass] 27.9 pg Normal 26.0-34.[address] [facility] Comment on above: Performed By: #### 7 77-3 #### ERICA MCDONALD L ([id number]) [facility] ([facility]) [address] [place] [address] MCHC (RBC) [Mass/Vol] 30.1 g/dL Low 32.0-36.0 [facility] Comment on above: Performed By: #### 7 77-3 #### ERICA Tam ([id number]) [facility] ([facility]) [id number] [place] [address] 63080 MCV (RBC) [Entitic vol] 93 fL Normal 80-[address] [facility] Comment on above: Performed By: #### 7 77-3 #### ERICA Tam ([id number]) [facility] ([facility]) [address] [place] [address] 23404 Nucleated RBC/100 WBC (Bld) [Ratio] 0.0 /100 WBCs Normal 0.0-0.[address] [facility] Comment on above: Performed By: #### 7 77-3 #### ERICA Tam ([id number]) [facility] ([facility]) [address] [place] [address] 93815 Platelets (Bld) [#/Vol] 334 x10*3/uL Normal 150-[address] [facility] Comment on above: Performed By: #### 7 77-3 #### ERICA Tam ([id number]) [facility] ([facility]) [address] [place] [address] 65461 RBC (Bld) [#/Vol] 4.01 x10*6/uL Low 4.50-5.90 [facility] Comment on above: Performed By: #### 7 77-3 #### REICA Tam ([id number]) [facility] ([facility]) [address] [place] [address] 93675 WBC (Bld) [#/Vol] 9.6 x10*3/uL Normal 4.4-11.3 [facility] Comment on above: Performed By: #### 7 77-3 #### ERICA Tam ([id number]) [facility] ([facility]) [address] [place] [address] 37270 Glucose Test strip manual (B ld) [Mass/Vol]on 10-23-2023 Glucose [Mass/Vol] 238 mg/dL High 74-99 [facility] Comment on above: Performed By: #### 5 8077-9 #### ERICA Tam ([id number]) [facility] ([facility]) [address] [place] [address] Glucose [Mass/Vol] 96 mg/dL Normal 74-99 [facility] Comment on above: Performed By: #### 7 77-3 #### ERICA Tam ([id number]) [facility] ([facility]) [address] [place] [address] Glucose [Mass/Vol] 101 mg/dL High 74-99 [facility] Comment on above: Performed By: #### 7 77-3 #### ERICA Tam ([id number]) [facility] ([facility]) [address] [place] [address] Glucose [Mass/Vol] 96 mg/dL Normal 74-99 [facility] Comment on above: Performed By: #### 7 77-3 #### ERICA Tam ([id number]) [facility] ([facility]) [id number] [place] [address] 88799 Renal function 2000 panelon 10-23-2023 Albumin BCP dye [Mass/Vol] 3.2 g/dL Low 3.4-5.[address] [facility] Comment on above: Performed By: #### 7 77-3 #### ERICA Tam ([id number]) [facility] ([facility]) [address] [place] [address] Anion gap [Moles/Vol] 13 mmol/L Normal 10-20 [facility] Comment on above: Performed By: #### 7 77-3 #### ERICA Tam ([id number]) [facility] ([facility]) [address] [place] [address] Calcium [Mass/Vol] 8.5 mg/dL Low 8.6-10.6 [facility] Comment on above: Performed By: #### 7 77-3 #### ERICA Tam ([id number]) [facility] ([facility]) [address] [place] [address] Chloride [Moles/Vol] 103 mmol/L Normal 98-107 [facility] Comment on above: Performed By: #### 7 77-3 #### ERICA ARREOLATZER L ([id number]) [facility] ([facility]) [address] [place] [address] CO2 [Moles/Vol] 25 mmol/L Normal 21-32 [facility] Comment on above: Performed By: #### 7 77-3 #### ERICA RESTREPOMOTZER L ([id number]) [facility] ([facility]) [address] [place] [address] Creatinine [Mass/Vol] 1.77 mg/dL High 0.50-1.30 [facility] Comment on above: Performed By: #### 7 77-3 #### ERICA HIGGINSER L ([id number]) [facility] ([facility]) [id number] [place] [address] 12504 Glomerular filtration rate/1.73 sq M.predicted 41 mL/min/1.73m*2 Low >[address] [facility] Comment on above: Result Comment: Calc ulations of estimated GFR are performed using the 2020 CKD-EPI Study Refit equation without the race variable for the IDMS-Traceable creatinine methods. https://jasn.asnjournals.org/content/early//ASN.03357 53352 Performed By: #### 7 77-3 #### ERICA RESTREPOMOTZER L ([id number]) [facility] ([facility]) [address] [place] [address] Glucose [Mass/Vol] 99 mg/dL Normal 74-99 [facility] Comment on above: Performed By: #### 7 77-3 #### ERICA RESTREPOMOTZER L ([id number]) [facility] ([facility]) [address] [place] [address] Phosphate [Mass/Vol] 4.9 mg/dL Normal 2.5-4.9 [facility] Comment on above: Result Comment: MODE RATE [...] By: #### 7 77-3 #### ERICA Tam ([id number]) [facility] ([facility]) [id number] [place] [address] 26900 Potassium [Moles/Vol] 5.2 mmol/L Normal 3.5-5.3 [facility] Comment on above: Result Comment: MODE RATE HEMOLYSIS DETECTED. The result may be falsely elevated due to hemolysis or other interferents. Clinical correlation is recommended. Repeat testing may be considered. Performed By: #### 7 77-3 #### ERICA Tam ([id number]) [facility] ([facility]) [id number] [place] [address]4547 Sodium [Moles/Vol] 136 mmol/L Normal 136-145 [facility] Comment on above: Performed By: #### 7 77-3 #### ERICA Tam ([id number]) [facility] ([facility]) [address] [place] [address] 10898 Urea nitrogen [Mass/Vol] 39 mg/dL High 6-[address] [facility] Comment on above: Performed By: #### 7 77-3 #### ERICA Tam ([id number]) [facility] ([facility]) [address] [place] [address] 60147 Glucose Test strip manual (B ld) [Mass/Vol]on 10-22-2023 Glucose [Mass/Vol] 246 mg/dL High 74-99 [facility] Comment on above: Performed By: #### 7 77-3 #### ERICA Tam ([id number]) [facility] ([facility]) [address] [place] [address] 31016 Glucose [Mass/Vol] 186 mg/dL High 74-99 [facility] Comment on above: Performed By: #### 7 77-3 #### ERICA Tam ([id number]) [facility] ([facility]) [address] [place] [address] Glucose [Mass/Vol] 213 mg/dL High 74-99 [facility] Comment on above: Performed By: #### 7 77-3 #### ERICA Tam ([id number]) [facility] ([facility]) [address] [place] [address] Glucose [Mass/Vol] 143 mg/dL High 74-99 [facility] Comment on above: Performed By: #### 7 77-3 #### ERICA Tam ([id number]) [facility] ([facility]) [address] [place] [address] 30928 Renal function 2000 panelon 10-22-2023 Albumin BCP dye [Mass/Vol] 3.3 g/dL Low 3.4-5.[address] [facility] Comment on above: Performed By: #### 7 77-3 #### ERICA Tam ([id number]) [facility] ([facility]) [id number] [place] [address]4425 Anion gap [Moles/Vol] 14 mmol/L Normal 10-20 [facility] Comment on above: Performed By: #### 7 77-3 #### ERICA Tam ([id number]) [facility] ([facility]) [address] [place] [address]6042 Calcium [Mass/Vol] 8.8 mg/dL Normal 8.6-10.6 [facility] Comment on above: Performed By: #### 7 77-3 #### ERICA Tam ([id number]) [facility] ([facility]) [address] [place] [address] 59316 Chloride [Moles/Vol] 101 mmol/L Normal 98-107 [facility] Comment on above: Performed By: #### 7 77-3 #### ERICA Tam ([id number]) [facility] ([facility]) [id number] [place] [address]35 CO2 [Moles/Vol] 23 mmol/L Normal 21-32 [facility] Comment on above: Performed By: #### 7 77-3 #### ERICA Tam ([id number]) [facility] ([facility]) [address] [place] [address] Creatinine [Mass/Vol] 1.75 mg/dL High 0.50-1.30 [facility] Comment on above: Performed By: #### 7 77-3 #### ERICA Tam ([id number]) [facility] ([facility]) [address] [place] [address] Glomerular filtration rate/1.73 sq M.predicted 42 mL/min/1.73m*2 Low >[address] [facility] Comment on above: Result Comment: Calc ulations of estimated GFR are performed using the 2020 CKD-EPI Study Refit equation without the race variable for the IDMS-Traceable creatinine methods. https://jasn.asnjournals.org/content/early//ASN.60094 19509 Performed By: #### 7 77-3 #### ERICA MCDONALD L ([id number]) [facility] ([facility]) [address] [place] [address] Glucose [Mass/Vol] 214 mg/dL High 74-99 [facility] Comment on above: Performed By: #### 7 77-3 #### ERICA Tam ([id number]) [facility] ([facility]) [address] [place] [address] Phosphate [Mass/Vol] 4.3 mg/dL Normal 2.5-4.9 [facility] Comment on above: Result Comment: The performance characteristics of phosphorus testing in heparinized plasma have been validated by the individual laboratory site where testing is performed. Testing on heparinized plasma is not approved by the FDA; however, such approval is not necessary. Performed By: #### 7 77-3 #### ERICA MCDONALD L ([id number]) [facility] ([facility]) [address] [place] [address] Potassium [Moles/Vol] 4.1 mmol/L Normal 3.5-5.3 [facility] Comment on above: Performed By: #### 7 77-3 #### ERICA Tam ([id number]) [facility] ([facility]) [address] [place] [address] 68593 Sodium [Moles/Vol] 134 mmol/L Low 136-145 [facility] Comment on above: Performed By: #### 7 77-3 #### ERICA Tam ([id number]) [facility] ([facility]) [address] [place] [address] 86237 Urea nitrogen [Mass/Vol] 38 mg/dL High 6-[address] [facility] Comment on above: Performed By: #### 7 77-3 #### ERICA Tam ([id number]) [facility] ([facility]) [address] [place] [address] 96025 Glucose Test strip manual (B ld) [Mass/Vol]on 10-21-2023 Glucose [Mass/Vol] 189 mg/dL High 74-99 [facility] Comment on above: Performed By: #### 3 274-8 #### ERICA Tam ([id number]) [facility] ([facility]) [address] [place] [address] 75863 Glucose [Mass/Vol] 258 mg/dL High 7499 [facility] Comment on above: Performed By: #### 3 274-8 #### ERICA Tam ([id number]) [facility] ([facility]) [address] [place] [address] 74407 Glucose [Mass/Vol] 392 mg/dL High 74-[address] [place] [address] Comment on above: Performed By: #### 3 274-8 #### ERICA Tam ([id number]) [facility] ([facility]) [address] [place] [address] 78734 Glucose [Mass/Vol] 254 mg/dL High -[address] [place] [address] Comment on above: Performed By: #### 3 274-8 #### ERICA Tam ([id number]) [facility] ([facility]) [address] [place] [address], [place] [address] Glucose [Mass/Vol] 296 mg/dL High 74-99 [facility] Comment on above: Performed By: #### 3 274-8 #### ERICA Tam ([id number]) [facility] ([facility]) [address] [place] [address] 84626 CBC panel Auto (Bld)on 10-19 Erythrocyte distribution width (RBC) [Ratio] 14.6 % High 11.5-14.[address] [facility] Comment on above: Performed By: #### 3 274-8 #### ERICA Tam ([id number]) [facility] ([facility]) [address] [place] [address] 22005 Hematocrit (Bld) [Volume fraction] 34.7 % Low 41.0-52.[address] [facility] Comment on above: Performed By: #### 3 274-8 #### ERICA Tam ([id number]) [facility] ([facility]) [address] [place] [address] 55940 Hemoglobin (Bld) [Mass/Vol] 11.2 g/dL Low 13.5-17.[address] [facility] Comment on above: Performed By: #### 3 274-8 #### ERICA Tam ([id number]) [facility] ([facility]) [address] [place] [address] 18101 MCH (RBC) [Entitic mass] 28.9 pg Normal 26.0-34.[address] [facility] Comment on above: Performed By: #### 3 274-8 #### ERICA Tam ([id number]) [facility] ([facility]) [address] [place] [address] 49903 MCHC (RBC) [Mass/Vol] 32.3 g/dL Normal 32.0-36.0 [facility] Comment on above: Performed By: #### 3 274-8 #### ERICA Tam ([id number]) [facility] ([facility]) [address] [place] [address] 97127 MCV (RBC) [Entitic vol] 89 fL Normal 80-[address] [facility] Comment on above: Performed By: #### 3 274-8 #### ERICA Tam ([id number]) [facility] ([facility]) [address] [place] [address] 60156 Nucleated RBC/100 WBC (Bld) [Ratio] 0.0 /100 WBCs Normal 0.0-0.[address] [facility] Comment on above: Performed By: #### 3 274-8 #### ERICA Tam ([id number]) [facility] ([facility]) [id number] [place] [address] 38488 Platelets (Bld) [#/Vol] 293 x10*3/uL Normal 150-[address] [facility] Comment on above: Performed By: #### 3 274-8 #### ERICA Tam ([id number]) [facility] ([facility]) [address] [place] [address] 28039 RBC (Bld) [#/Vol] 3.88 x10*6/uL Low 4.50-5.90 [facility] Comment on above: Performed By: #### 3 274-8 #### ERICA Tam ([id number]) [facility] ([facility]) [address] [place] [address] 49076 WBC (Bld) [#/Vol] 8.6 x10*3/uL Normal 4.4-11.3 [facility] Comment on above: Performed By: #### 3 274-8 #### ERICA Tam ([id number]) [facility] ([facility]) [address] [place] [address] 83472 Glucose Test strip manual (B ld) [Mass/Vol]on 10-20-2023 Glucose [Mass/Vol] 298 mg/dL High 7499 [facility] Comment on above: Performed By: #### 3 274-8 #### ERICA Tam ([id number]) [facility] ([facility]) [id number] [place] [address] 88366 Glucose [Mass/Vol] 298 mg/dL High 74-99 [facility] Comment on above: Performed By: #### 3 274-8 #### ERICA Tam ([id number]) [facility] ([facility]) [id number] [place] [address] 12655 Glucose [Mass/Vol] 294 mg/dL High -[address] [place] [address] Comment on above: Performed By: #### T HYDS #### ERICA Tam (51054) [facility] ([facility]) [address] [place] [address] 17069 Glucose [Mass/Vol] 173 mg/dL High -[address] [place] [address] Comment on above: Performed By: #### T HYDS #### ERICA Tam (44036) [facility] ([facility]) [address] [place] [address] 50774 Glucose [Mass/Vol] 146 mg/dL High [address] [place] [address] Comment on above: Performed By: #### T HYDS #### ERICA Tam (56393) [facility] ([facility]) [address] [place] [address] 82292 Magnesiumon 10-20-2023 Magnesium [Mass/Vol] 1.74 mg/dL Normal 1.60-2.40 [facility] Comment on above: Performed By: #### 3 274-8 #### ERICA Tam ([id number]) [facility] ([facility]) [address] [place] [address] 26272 Renal function 2000 panelon 10-20-2023 Albumin BCP dye [Mass/Vol] 3.3 g/dL Low 3.4-5.[address] [facility] Comment on above: Performed By: #### 3 274-8 #### ERICA Tam ([id number]) [facility] ([facility]) [address] [place] [address] 26870 Anion gap [Moles/Vol] 11 mmol/L Normal 10-20 [facility] Comment on above: Performed By: #### 3 274-8 #### ERICA Tam ([id number]) [facility] ([facility]) [address] [place] [address] Calcium [Mass/Vol] 8.5 mg/dL Low 8.6-10.6 [facility] Comment on above: Performed By: #### 3 274-8 #### ERICA Tam ([id number]) [facility] ([facility]) [address] [place] [address] Chloride [Moles/Vol] 102 mmol/L Normal 98-107 [facility] Comment on above: Performed By: #### 3 274-8 #### ERICA MCDONALD L ([id number]) [facility] ([facility]) [address] [place] [address] CO2 [Moles/Vol] 25 mmol/L Normal 21-32 [facility] Comment on above: Performed By: #### 3 274-8 #### ERICA Tam ([id number]) [facility] ([facility]) [address] [place] [address] Creatinine [Mass/Vol] 1.89 mg/dL High 0.50-1.30 [facility] Comment on above: Performed By: #### 3 274-8 #### ERICA MCDONALD L ([id number]) [facility] ([facility]) [address] [place] [address] 29794 Glomerular filtration rate/1.73 sq M.predicted 38 mL/min/1.73m*2 Low >[address] [facility] Comment on above: Result Comment: Calc ulations of estimated GFR are performed using the 2020 CKD-EPI Study Refit equation without the race variable for the IDMS-Traceable creatinine methods. https://jasn.asnjournals.org/content//ASN.13364 65270 Performed By: #### 3 274-8 #### ERICA MCDONALD L ([id number]) [facility] ([facility]) [address] [place] [address] Glucose [Mass/Vol] 323 mg/dL High 74-99 [facility] Comment on above: Performed By: #### 3 274-8 #### ERICA Tam (61965) [facility] ([facility]) [address] [place] [address] 40595 Phosphate [Mass/Vol] 3.0 mg/dL Normal 2.5-4.9 [facility] Comment on above: Result Comment: The performance characteristics of phosphorus testing in heparinized plasma have been validated by the individual laboratory site where testing is performed. Testing on heparinized plasma is not approved by the FDA; however, such approval is not necessary. Performed By: #### 3 274-8 #### ERICA Tam ([id number]) [facility] ([facility]) [address] [place] [address] 72484 Potassium [Moles/Vol] 3.9 mmol/L Normal 3.5-5.3 [facility] Comment on above: Performed By: #### 3 274-8 #### ERICA Tam ([id number]) [facility] ([facility]) [address] [place] [address] 33679 Sodium [Moles/Vol] 134 mmol/L Low 136-145 [facility] Comment on above: Performed By: #### 3 274-8 #### ERICA Tam ([id number]) [facility] ([facility]) [address] [place] [address] 84022 Urea nitrogen [Mass/Vol] 31 mg/dL High 6-[address] [facility] Comment on above: Performed By: #### 3 274-8 #### ERICA Tam ([id number]) [facility] ([facility]) [address] [place] [address] 20500 Glucose Test strip manual (B ld) [Mass/Vol]on 10-19-2023 Glucose [Mass/Vol] 355 mg/dL High 74-99 [facility] Comment on above: Performed By: #### T HYDS #### ERICA Tam ([id number]) [facility] ([facility]) [address] [place] [address] 40850 Glucose [Mass/Vol] 249 mg/dL High [address] [place] [address] Comment on above: Performed By: #### T HYDS #### ERICA Tam ([id number]) [facility] ([facility]) [address] [place] [address] 36769 Glucose [Mass/Vol] 274 mg/dL High [address] [place] [address] Comment on above: Performed By: #### T HYDS #### ERICA Tam ([id number]) [facility] ([facility]) [address] [place] [address] 00433 Glucose [Mass/Vol] 129 mg/dL High [address] [place] [address] Comment on above: Performed By: #### T HYDS #### ERICA Tam ([id number]) [facility] ([facility]) [address] [place] [address] 57817 Glucose [Mass/Vol] 121 mg/dL High [address] [place] [address] Comment on above: Performed By: #### T HYDS #### ERICA Tam ([id number]) [facility] ([facility]) [address] [place] [address] 43978 CBC panel Auto (Bld)on 10-17 Erythrocyte distribution width (RBC) [Ratio] 14.6 % High 11.5-14.[address] [facility] Comment on above: Performed By: #### L IPIN #### ERICA Tam ([id number]) [facility] ([facility]) [address] [place] [address] 29095 Hematocrit (Bld) [Volume fraction] 34.3 % Low 41.0-52.[address] [facility] Comment on above: Performed By: #### L IPIN #### ERICA Tam ([id number]) [facility] ([facility]) [address] [place] [address] 88543 Hemoglobin (Bld) [Mass/Vol] 10.7 g/dL Low 13.5-17.[address] [facility] Comment on above: Performed By: #### L IPIN #### ERICA Tam ([id number]) [facility] ([facility]) [address] [place] [address] MCH (RBC) [Entitic mass] 28.7 pg Normal 26.0-34.[address] [facility] Comment on above: Performed By: #### L IPIN #### ERICA Tam ([id number]) [facility] ([facility]) [id number] [place] [address] 02224 MCHC (RBC) [Mass/Vol] 31.2 g/dL Low 32.0-36.0 [facility] Comment on above: Performed By: #### L IPIN #### ERICA Tam ([id number]) [facility] ([facility]) [address] [place] [address] 56154 MCV (RBC) [Entitic vol] 92 fL Normal 80-[address] [facility] Comment on above: Performed By: #### L IPIN #### ERICA Tam ([id number]) [facility] ([facility]) [id number] [place] [address] 37437 Nucleated RBC/100 WBC (Bld) [Ratio] 0.0 /100 WBCs Normal 0.0-0.[address] [facility] Comment on above: Performed By: #### L IPIN #### ERICA Tam ([id number]) [facility] ([facility]) [address] [place] [address] 76677 Platelets (Bld) [#/Vol] 295 x10*3/uL Normal 150-[address] [facility] Comment on above: Performed By: #### L IPIN #### ERICA Tam ([id number]) [facility] ([facility]) [address] [place] [address] 13267 RBC (Bld) [#/Vol] 3.73 x10*6/uL Low 4.50-5.90 [facility] Comment on above: Performed By: #### L IPIN #### ERICA Tam ([id number]) [facility] ([facility]) [id number] [place] [address] 97109 WBC (Bld) [#/Vol] 7.2 x10*3/uL Normal 4.4-11.3 [facility] Comment on above: Performed By: #### L IPIN #### ERICA Tam ([id number]) [facility] ([facility]) [address] [place] [address] 85458 Glucose Test strip manual (B ld) [Mass/Vol]on 10-18-2023 Glucose [Mass/Vol] 169 mg/dL High [address] [place] [address] Comment on above: Performed By: #### T HYDS #### ERICA Tam ([id number]) [facility] ([facility]) [address] [place] [address] 43937 Glucose [Mass/Vol] 238 mg/dL High [address] [place] [address] Comment on above: Performed By: #### L IPIN #### ERICA Tam ([id number]) [facility] ([facility]) [address] [place] [address] 87580 Glucose [Mass/Vol] 251 mg/dL High [address] [place] [address] Comment on above: Performed By: #### L IPIN #### ERICA Tam ([id number]) [facility] ([facility]) [address] [place] [address] 66844 Glucose [Mass/Vol] 191 mg/dL High [address] [place] [address] Comment on above: Performed By: #### L IPIN #### ERICA Tam ([id number]) [facility] ([facility]) [address] [place] [address] 00438 Heparin.unfractionatedon Heparin unfractionated Chromogenic method Qn (PPP) 0.4 IU/mL Normal See Comment Below for Therapeutic Ranges [facility] Comment on above: Order Comment: When [...] please refer to local Pharmacy and the [facility] Guidelines for Anticoagulation Therapy available on the [facility] intranet at: [email or web address] Performed By: #### L IPIN #### ERICA Tam ([id number]) [facility] ([facility]) [address] [place] [address] 49727 Magnesiumon 10-18-2023 Magnesium [Mass/Vol] 1.77 mg/dL Normal 1.60-2.40 [facility] Comment on above: Performed By: #### L IPIN #### ERICA Tam ([id number]) [facility] ([facility]) [address] [place] [address] 27812 Renal function 2000 panelon 10-18-2023 Albumin BCP dye [Mass/Vol] 3.3 g/dL Low 3.4-5.[address] [facility] Comment on above: Performed By: #### T HYDS #### ERICA Tam ([id number]) [facility] ([facility]) [address] [place] [address] 61851 Anion gap [Moles/Vol] 12 mmol/L Normal 10-20 [facility] Comment on above: Performed By: #### T HYDS #### ERICA Tam ([id number]) [facility] ([facility]) [address] [place] [address] 25153 Calcium [Mass/Vol] 8.5 mg/dL Low 8.6-10.6 [facility] Comment on above: Performed By: #### T HYDS #### ERICA Tam ([id number]) [facility] ([facility]) [address] [place] [address] 32465 Chloride [Moles/Vol] 103 mmol/L Normal 98-107 [facility] Comment on above: Performed By: #### T HYDS #### ERICA Tam ([id number]) [facility] ([facility]) [address] [place] [address] CO2 [Moles/Vol] 26 mmol/L Normal 21-32 [facility] Comment on above: Performed By: #### T HYDS #### ERICA Tam ([id number]) [facility] ([facility]) [address] [place] [address] Creatinine [Mass/Vol] 1.58 mg/dL High 0.50-1.30 [facility] Comment on above: Performed By: #### T HYDS #### ERICA Tam ([id number]) [facility] ([facility]) [address] [place] [address] Glomerular filtration rate/1.73 sq M.predicted 47 mL/min/1.73m*2 Low >[address] [facility] Comment on above: Result Comment: Calc ulations of estimated GFR are performed using the 2020 CKD-EPI Study Refit equation without the race variable for the IDMS-Traceable creatinine methods. https://jasn.asnjournals.org/content/early/ASN.84827 48913 Performed By: #### T HYDS #### ERICA Tam ([id number]) [facility] ([facility]) [address] [place] [address] Glucose [Mass/Vol] 220 mg/dL High 74-99 [facility] Comment on above: Performed By: #### T HYDS #### ERICA Tam ([id number]) [facility] ([facility]) [address] [place] [address] Phosphate [Mass/Vol] 2.8 mg/dL Normal 2.5-4.9 [facility] Comment on above: Result Comment: The performance characteristics of phosphorus testing in heparinized plasma have been validated by the individual laboratory site where testing is performed. Testing on heparinized plasma is not approved by the FDA; however, such approval is not necessary. Performed By: #### T HYDS #### ERICA Tam ([id number]) [facility] ([facility]) [address] [place] [address] 50819 Potassium [Moles/Vol] 4.1 mmol/L Normal 3.5-5.3 [facility] Comment on above: Performed By: #### T HYDS #### ERICA Tam ([id number]) [facility] ([facility]) [address] [place] [address] 83688 Sodium [Moles/Vol] 137 mmol/L Normal 136-145 [facility] Comment on above: Performed By: #### T HYDS #### ERICA Tam ([id number]) [facility] ([facility]) [address] [place] [address] 24748 Urea nitrogen [Mass/Vol] 25 mg/dL High 6-[address] [facility] Comment on above: Performed By: #### T HYDS #### ERICA Tam ([id number]) [facility] ([facility]) [address] [place] [address] 79737 CBC panel Auto (Bld)on 10-16 Erythrocyte distribution width (RBC) [Ratio] 14.5 % Normal 11.5-14.[address] [facility] Comment on above: Performed By: #### 2 4323-8 #### ERICA Tam (35139) [facility] ([facility]) [address] [place] [address] 27456 Hematocrit (Bld) [Volume fraction] 35.2 % Low 41.0-52.[address] [facility] Comment on above: Performed By: #### 2 4323-8 #### ERICA Tam ([id number]) [facility] ([facility]) [address] [place] [address] 14225 Hemoglobin (Bld) [Mass/Vol] 11.1 g/dL Low 13.5-17.[address] [facility] Comment on above: Performed By: #### 2 4323-8 #### ERICA Tam (10761) [facility] ([facility]) [address] [place] [address] 67079 MCH (RBC) [Entitic mass] 29.1 pg Normal 26.0-34.[address] [facility] Comment on above: Performed By: #### 2 4323-8 #### ERICA Tam (81954) [facility] ([facility]) [address] [place] [address] 03202 MCHC (RBC) [Mass/Vol] 31.5 g/dL Low 32.0-36.0 [facility] Comment on above: Performed By: #### 2 4323-8 #### ERICA Tam ([id number]) [facility] ([facility]) [address] [place] [address] 14986 MCV (RBC) [Entitic vol] 92 fL Normal 80-[address] [facility] Comment on above: Performed By: #### 2 4323-8 #### ERICA Tam ([id number]) [facility] ([facility]) [address] [place] [address] 62449 Nucleated RBC/100 WBC (Bld) [Ratio] 0.0 /100 WBCs Normal 0.0-0.[address] [facility] Comment on above: Performed By: #### 2 4323-8 #### ERICA Tam (90126) [facility] ([facility]) [address] [place] [address] 55885 Platelets (Bld) [#/Vol] 316 x10*3/uL Normal 150-[address] [facility] Comment on above: Performed By: #### 2 4323-8 #### ERICA Tam ([id number]) [facility] ([facility]) [address] [place] [address] 42521 RBC (Bld) [#/Vol] 3.82 x10*6/uL Low 4.50-5.90 [facility] Comment on above: Performed By: #### 2 4323-8 #### ERICA Tam ([id number]) [facility] ([facility]) [address] [place] [address] 04689 WBC (Bld) [#/Vol] 8.6 x10*3/uL Normal 4.4-11.3 [facility] Comment on above: Performed By: #### 2 4323-8 #### ERICA Tam (55538) [facility] ([facility]) [address] [place] [address] 71182 Glucose Test strip manual (B ld) [Mass/Vol]on 10-17-2023 Glucose [Mass/Vol] 217 mg/dL High [address] [place] [address] Comment on above: Performed By: #### L IPIN #### ERICA Tam ([id number]) [facility] ([facility]) [address] [place] [address] 99517 Glucose [Mass/Vol] 271 mg/dL High [address] [place] [address] Comment on above: Performed By: #### 2 4323-8 #### ERICA Tam ([id number]) [facility] ([facility]) [address] [place] [address] 10534 Glucose [Mass/Vol] 189 mg/dL High [address] [place] [address] Comment on above: Performed By: #### 2 4323-8 #### ERICA Tam ([id number]) [facility] ([facility]) [address] [place] [address] 43093 Glucose [Mass/Vol] 256 mg/dL High [address] [place] [address] Comment on above: Performed By: #### 2 4323-8 #### ERICA Tam (51702) [facility] ([facility]) [address] [place] [address] 82229 Glucose [Mass/Vol] 176 mg/dL High [address] [place] [address] Comment on above: Performed By: #### 1 4979-9 #### ERICA Tam (69429) [facility] ([facility]) [address] [place] [address] 88909 Heparin.unfractionatedon Heparin unfractionated Chromogenic method Qn (PPP) 0.3 IU/mL Normal See Comment Below for Therapeutic Ranges [facility] Comment on above: Order Comment: Obtai [...] please refer to local Pharmacy and the [facility] Guidelines for Anticoagulation Therapy available on the [facility] intranet at: [email or web address]_ [email or web address] Performed By: #### 2 4323-8 #### ERICA Tam ([id number]) [facility] ([facility]) [address] [place] [address] Heparin unfractionated Chromogenic method Qn (PPP) 0.5 IU/mL Normal See Comment Below for Therapeutic Ranges [facility] Comment on above: Order Comment: Obtai [...] please refer to local Pharmacy and the [facility] Guidelines for Anticoagulation Therapy available on the [facility] intranet at: [email or web address] Performed By: #### 2 4323-8 #### ERICA Tam (40957) [facility] ([facility]) [address] [place] [address] 16469 Heparin unfractionated Chromogenic method Qn (PPP) 0.2 IU/mL Normal See Comment Below for Therapeutic Ranges [facility] Comment on above: Order Comment: Prior to initiating heparin if not obtained in prior 48 hours. Nursing to release order. The APTT is no longer used for monitoring Unfractionated Heparin Therapy. For monitoring Heparin Therapy, use the Heparin Assay. Performed By: #### 1 4979-9 #### ERICA Tam ([id number]) [facility] ([facility]) [address] [place] [address] 79357 Magnesiumon 10-17-2023 Magnesium [Mass/Vol] 1.94 mg/dL Normal 1.60-2.40 [facility] Comment on above: Performed By: #### L IPIN #### ERICA Tam (94996) [facility] ([facility]) [address] [place] [address] 17569 Renal function 2000 panelon 10-17-2023 Albumin BCP dye [Mass/Vol] 3.1 g/dL Low 3.4-5.[address] [facility] Comment on above: Performed By: #### L IPIN #### ERICA aTm ([id number]) [facility] ([facility]) [address] [place] [address] 83300 Anion gap [Moles/Vol] 9 mmol/L Low 10-20 [facility] Comment on above: Performed By: #### L IPIN #### ERICA Tam ([id number]) [facility] ([facility]) [address] [place] [address] 34148 Calcium [Mass/Vol] 8.2 mg/dL Low 8.6-10.6 [facility] Comment on above: Performed By: #### L IPIN #### ERICA Tam ([id number]) [facility] ([facility]) [address] [place] [address] 93124 Chloride [Moles/Vol] 104 mmol/L Normal 98-107 [facility] Comment on above: Performed By: #### L IPIN #### ERICA Tam ([id number]) [facility] ([facility]) [address] [place] [address] 41213 CO2 [Moles/Vol] 28 mmol/L Normal 21-32 [facility] Comment on above: Performed By: #### L IPIN #### ERICA Tam ([id number]) [facility] ([facility]) [address] [place] [address] 33012 Creatinine [Mass/Vol] 1.35 mg/dL High 0.50-1.30 [facility] Comment on above: Performed By: #### L IPIN #### ERICA Tam ([id number]) [facility] ([facility]) [address] [place] [address] 08763 Glomerular filtration rate/1.73 sq M.predicted 57 mL/min/1.73m*2 Low >[address] [facility] Comment on above: Result Comment: Calc ulations of estimated GFR are performed using the 2020 CKD-EPI Study Refit equation without the race variable for the IDMS-Traceable creatinine methods. https://jasn.asnjournals.org/content/early/ASN.96966 86382 Performed By: #### L IPIN #### ERICA Tam ([id number]) [facility] ([facility]) [address] [place] [address] 86722 Glucose [Mass/Vol] 274 mg/dL High 74-99 [facility] Comment on above: Performed By: #### L IPIN #### ERICA Tam ([id number]) [facility] ([facility]) [address] [place] [address] 56902 Phosphate [Mass/Vol] 2.5 mg/dL Normal 2.5-4.9 [facility] Comment on above: Result Comment: The performance characteristics of phosphorus testing in heparinized plasma have been validated by the individual laboratory site where testing is performed. Testing on heparinized plasma is not approved by the FDA; however, such approval is not necessary. Performed By: #### L IPIN #### ERICA Tam ([id number]) [facility] ([facility]) [address] [place] [address] Potassium [Moles/Vol] 4.3 mmol/L Normal 3.5-5.3 [facility] Comment on above: Performed By: #### L IPIN #### ERICA Tam (19827) [facility] ([facility]) [address] [place] [address] 32704 Sodium [Moles/Vol] 137 mmol/L Normal 136-145 [facility] Comment on above: Performed By: #### L IPIN #### ERICA Tam ([id number]) [facility] ([facility]) [address] [place] [address] 90758 Urea nitrogen [Mass/Vol] 27 mg/dL High 6-[address] [facility] Comment on above: Performed By: #### L IPIN #### ERICA Tam ([id number]) [facility] ([facility]) [address] [place] [address] 87757 [facility] US ANKLE BRACHIAL INDEX (LUCIO) WITHOUT EXERCISEon 10-17-2023 [facility] US ANKLE BRACHIAL INDEX (LUCIO) WITHOUT EXERCISE [address] [address] and Vascular Lab Report [facility] US ANKLE BRACHIAL INDEX (LUCIO) WITHOUT EXERCISE Patient Name: ITALIA Alfaro Physician: [id number] Marshal Nolan MD Study Date: 10/17/2023 Ordering [id number] RU Mina Physician: CUATE MRN/PID: [id number] Technologist: Sandy Smith [facility] Technologist 2: Date of /Age: 5 1955 years Gender: M Admission Status: Inpatient Location [facility] Performed: Diagnosis/ICD: Peripheral vascular disease, unspecified-I73.9 CPT Codes: 62993 Peripheral artery LUCIO Only CONCLUSIONS: Right Lower [...] Left Brachial Pressure 155 mmHg 149 mmHg [id number] Nolan MD Final Normal [facility] US CAROTID ARTERY DUPLE X BILATERALon 10-17-2023 VAS US CAROTID ARTERY DUPLEX BILATERAL [place] [address] and Vascular Lab Report [facility] US CAROTID ARTERY DUPLEX BILATERAL Patient Name: ITALIA Alfaro Physician: Myriam Nolan MD Study Date: 10/17/2023 Ordering [id number] RU Mina Physician: CUATE MRN/PID: [id number] Technologist: Gallito HARTMANN Technologist 2: Date of /Age: 5 1955 years Gender: M Admission Status: Inpatient Location [facility] Performed: Diagnosis/ICD: Encounter for preprocedural cardiovascular examination-Z01.810 Indication: Pre-Op CABG CPT Codes: 08798 Cerebrovascular Carotid Duplex scan complete Patient History [...] cm/s Right Left ICA/CCA Ratio 0.0 1.3 09853Octavio Nolan MD Final [facility] US LOWER EXTREMITY VEIN MAPPING BILATERALon 10-17-2023 [facility] US LOWER EXTREMITY VEIN MAPPING BILATERAL [place] [address] and Vascular Lab Report [facility] US LOWER EXTREMITY VEIN MAPPING BILATERAL Patient Name: ITALIA ALLEN Angelina Physician: [id number] Nolan MD Study Date: 10/17/2023 Ordering [id number] RU Mina Physician: CUATE MRN/PID: [id number] Technologist: Gallito Marie [facility] Technologist 2: Date of /Age: 5 1955 years Gender: M Admission Status: Inpatient Location [facility] Performed: Diagnosis/ICD: Encounter for preprocedural cardiovascular examination-Z01.810 Indication: Pre-operative exam CPT Codes: 13912 Vein mapping complete Patient History CAD. CONCLUSIONS: [...] Dist Calf GSV Yes None 1.0 mm [id number] Marshal Nolan MD Final Normal [facility] CBC panel Auto (Bld)on 10-15 Erythrocyte distribution width (RBC) [Ratio] 14.4 % Normal 11.5-14.[address] [facility] Comment on above: Performed By: #### 1 4979-9 #### ERICA Tam (84285) [facility] ([facility]) [address] [place] [address] 42133 Hematocrit (Bld) [Volume fraction] 33.4 % Low 41.0-52.[address] [facility] Comment on above: Performed By: #### 1 4979-9 #### ERICA Tam (59852) [facility] ([facility]) [address] [place] [address] 23444 Hemoglobin (Bld) [Mass/Vol] 10.5 g/dL Low 13.5-17.[address] [facility] Comment on above: Performed By: #### 1 4979-9 #### ERICA Tam (44257) [facility] ([facility]) [address] [place] [address] 86431 MCH (RBC) [Entitic mass] 28.5 pg Normal 26.0-34.[address] [facility] Comment on above: Performed By: #### 1 4979-9 #### ERICA Tam (59352) [facility] ([facility]) [address] [place] [address] MCHC (RBC) [Mass/Vol] 31.4 g/dL Low 32.0-36.0 [facility] Comment on above: Performed By: #### 1 4979-9 #### ERICA Tam (37646) [facility] ([facility]) [address] [place] [address] 33609 MCV (RBC) [Entitic vol] 91 fL Normal 80-[address] [facility] Comment on above: Performed By: #### 1 4979-9 #### ERICA Tam (64466) [facility] ([facility]) [address] [place] [address] 74699 Nucleated RBC/100 WBC (Bld) [Ratio] 0.0 /100 WBCs Normal 0.0-0.[address] [facility] Comment on above: Performed By: #### 1 4979-9 #### ERICA Tam (93583) [facility] ([facility]) [address] [place] [address] 40343 Platelets (Bld) [#/Vol] 283 x10*3/uL Normal 150-[address] [facility] Comment on above: Performed By: #### 1 4979-9 #### ERICA MCDONALD L (07395) [facility] ([facility]) [address] [place] [address] 12768 RBC (Bld) [#/Vol] 3.69 x10*6/uL Low 4.50-5.90 [facility] Comment on above: Performed By: #### 1 4979-9 #### EIRCA MCDONALD L (35444) [facility] ([facility]) [address] [place] [address] 42157 WBC (Bld) [#/Vol] 8.2 x10*3/uL Normal 4.4-11.3 [facility] Comment on above: Performed By: #### 1 4979-9 #### ERICA Tam (72107) [facility] ([facility]) [address] [place] [address] 54834 Erythrocyte distribution width (RBC) [Ratio] 14.6 % High 11.5-14.[address] [facility] Comment on above: Performed By: #### 5 8410-2 #### ERICA Tam (17138) [facility] ([facility]) [address] [place] [address] 73407 Hematocrit (Bld) [Volume fraction] 35.2 % Low 41.0-52.[address] [facility] Comment on above: Performed By: #### 5 8410-2 #### ERICA Tam (15671) [facility] ([facility]) [address] [place] [address] 61647 Hemoglobin (Bld) [Mass/Vol] 11.4 g/dL Low 13.5-17.[address] [facility] Comment on above: Performed By: #### 5 8410-2 #### ERICA Tam (92777) [facility] ([facility]) [address] [place] [address] 37085 MCH (RBC) [Entitic mass] 29.3 pg Normal 26.0-34.[address] [facility] Comment on above: Performed By: #### 5 8410-2 #### ERICA Tam (07788) [facility] ([facility]) [address] [place] [address] 05790 MCHC (RBC) [Mass/Vol] 32.4 g/dL Normal 32.0-36.0 [facility] Comment on above: Performed By: #### 5 8410-2 #### ERICA Tam (77058) [facility] ([facility]) [address] [place] [address] 04738 MCV (RBC) [Entitic vol] 91 fL Normal 80-[address] [facility] Comment on above: Performed By: #### 5 8410-2 #### ERICA Tam (06998) [facility] ([facility]) [address] [place] [address] 87244 Nucleated RBC/100 WBC (Bld) [Ratio] 0.0 /100 WBCs Normal 0.0-0.[address] [facility] Comment on above: Performed By: #### 5 8410-2 #### ERICA Tam (63335) [facility] ([facility]) [address] [place] [address] 80095 Platelets (Bld) [#/Vol] 285 x10*3/uL Normal 150-[address] [facility] Comment on above: Performed By: #### 5 8410-2 #### ERICA Tam (34153) [facility] ([facility]) [address] [place] [address] 32840 RBC (Bld) [#/Vol] 3.89 x10*6/uL Low 4.50-5.90 [facility] Comment on above: Performed By: #### 5 8410-2 #### ERICA Tam (39278) [facility] ([facility]) [address] [place] [address] 23546 WBC (Bld) [#/Vol] 9.3 x10*3/uL Normal 4.4-11.3 [facility] Comment on above: Performed By: #### 5 8410-2 #### ERICA Tam (84860) [facility] ([facility]) [address] [place] [address] 72019 Coagulation surface inducedo n 10-16-2023 aPTT Coag (PPP) [Time] 30 s Normal 27-38 [facility] Comment on above: Order Comment: Prior to initiating heparin if not obtained in prior 48 hours. Nursing to release order. The APTT is no longer used for monitoring Unfractionated Heparin Therapy. For monitoring Heparin Therapy, use the Heparin Assay. Performed By: #### 1 4979-9 #### ERICA Tam (75985) [facility] ([facility]) [address] [place] [address] 75583 Coagulation tissue factor in ducedon 10-16-2023 PT Coag (PPP) [Time] 12.5 s Normal 9.8-12.8 [facility] Comment on above: Order Comment: If val monroe has not had PT + INR in the last 24 hours. Nursing to release order. Performed By: #### 5 902-2 #### ERICA Tam (52632) [facility] ([facility]) [address] [place] [address] 29014 Cobalaminson 10-16-2023 Cobalamin (Vitamin B12) [Mass/Vol] 201 pg/mL Low 211-[address] [facility] Comment on above: Performed By: #### 5 902-2 #### ERICA Tam ([id number]) [facility] ([facility]) [address] [place] [address] 95307 Comprehensive metabolic 2000 panelon 10-16-2023 Albumin BCP dye [Mass/Vol] 3.3 g/dL Low 3.4-5.[address] [facility] Comment on above: Performed By: #### 2 4323-8 #### ERICA Tam (06410) [facility] ([facility]) [address] [place] [address] 80381 ALP [Catalytic activity/Vol] 58 U/L Normal 33-[address] [facility] Comment on above: Performed By: #### 2 4323-8 #### ERICA Tam (89526) [facility] ([facility]) [address] [place] [address] 48655 ALT With P-5'-P [Catalytic activity/Vol] 15 U/L Normal 10-[address] [facility] Comment on above: Result Comment: Criselda ents treated with Sulfasalazine may generate falsely decreased results for ALT. Performed By: #### 2 4323-8 #### ERICA Tam (06037) [facility] ([facility]) [address] [place] [address] Anion gap [Moles/Vol] 13 mmol/L Normal 10-20 [facility] Comment on above: Performed By: #### 2 4323-8 #### ERICA Tam (72996) [facility] ([facility]) [address] [place] [address] 30683 AST With P-5'-P [Catalytic activity/Vol] 14 U/L Normal 9-[address] [facility] Comment on above: Result Comment: MILD HEMOLYSIS DETECTED. The result may be falsely elevated due to hemolysis or other interferents. Clinical correlation is recommended. Repeat testing may be considered. Performed By: #### 2 4323-8 #### ERICA Tam (05292) [facility] ([facility]) [address] [place] [address] 33344 Bilirubin [Mass/Vol] 0.4 mg/dL Normal 0.0-1.2 [facility] Comment on above: Performed By: #### 2 4323-8 #### ERICA MCDONALD L (83915) [facility] ([facility]) [address] [place] [address] 90046 Calcium [Mass/Vol] 8.3 mg/dL Low 8.6-10.6 [facility] Comment on above: Performed By: #### 2 4323-8 #### ERICA MCDONALD L (81631) [facility] ([facility]) [address] [place] [address] 58875 Chloride [Moles/Vol] 102 mmol/L Normal 98-107 [facility] Comment on above: Performed By: #### 2 4323-8 #### ERICA RESTREPOMOTZER L (32014) [facility] ([facility]) [address] [place] [address] 04766 CO2 [Moles/Vol] 26 mmol/L Normal 21-32 [facility] Comment on above: Performed By: #### 2 4323-8 #### ERICA MCDONALD L (03210) [facility] ([facility]) [address] [place] [address] 83839 Creatinine [Mass/Vol] 1.64 mg/dL High 0.50-1.30 [facility] Comment on above: Performed By: #### 2 4323-8 #### ERICA RESTREPOMOTZLUZ L (88043) [facility] ([facility]) [address] [place] [address] Glomerular filtration rate/1.73 sq M.predicted 45 mL/min/1.73m*2 Low >[address] [facility] Comment on above: Result Comment: Calc ulations of estimated GFR are performed using the 2020 CKD-EPI Study Refit equation without the race variable for the IDMS-Traceable creatinine methods. https://jasn.asnjournals.org/content//ASN.51365 84143 Performed By: #### 2 4323-8 #### ERICA Tam (05183) [facility] ([facility]) [address] [place] [address] 56675 Glucose [Mass/Vol] 173 mg/dL High 74-99 [facility] Comment on above: Performed By: #### 2 4323-8 #### ERICA MCDONALD L (88159) [facility] ([facility]) [address] [place] [address] 46454 Potassium [Moles/Vol] 4.3 mmol/L Normal 3.5-5.3 [facility] Comment on above: Result Comment: MILD HEMOLYSIS DETECTED. The result may be falsely elevated due to hemolysis or other interferents. Clinical correlation is recommended. Repeat testing may be considered. Performed By: #### 2 4323-8 #### ERICA MCDONALD L (35476) [facility] ([facility]) [address] [place] [address] 91403 Protein [Mass/Vol] 5.6 g/dL Low 6.4-8.2 [facility] Comment on above: Performed By: #### 2 4323-8 #### ERICA RESTREPOMOTZER L (87339) [facility] ([facility]) [address] [place] [address] 29033 Sodium [Moles/Vol] 137 mmol/L Normal 136-145 [facility] Comment on above: Performed By: #### 2 4323-8 #### ERICA RESTREPOMOTZER L ([id number]) [facility] ([facility]) [address] [place] [address] 23914 Urea nitrogen [Mass/Vol] 33 mg/dL High 6-[address] [facility] Comment on above: Performed By: #### 2 4323-8 #### ERICA Tam ([id number]) [facility] ([facility]) [id number] [place] [address] 35624 ECG 12-LEADon 10-16-2023 ECG 12-LEAD Ventricular Rate 85 Atrial Rate 85 P-R Interval 196 QRS Duration 100 Q-T Interval 392 QTC Calculation(Bazett) 466 P Lee 40 R Lee 54 T Lee 51 QRS Count 14 Q Onset 222 P Onset 124 P Offset 185 T Offset 418 QTC Fredericia 440 Diagnosis Normal sinus rhythm Prolonged QT Abnormal ECG No previous ECGs available Confirmed by Mark Kennedy ([id number]) on 10/16/2023 5:14:12 PM Normal [facility] Ferritinon 10-16-2023 Ferritin [Mass/Vol] 184 ng/mL Normal 20-300 [facility] Comment on above: Performed By: #### 5 902-2 #### ERICA Tam ([id number]) [facility] ([facility]) [address] [place] [address] 66140 Folateon 10-16-2023 Folate [Mass/Vol] 10.0 ng/mL Normal >5.0 [facility] Comment on above: Order Comment: If val monroe has not had PT + INR in the last 24 hours. Nursing to release order. Performed By: #### 5 902-2 #### ERICA Tam ([id number]) [facility] ([facility]) [address] [place] [address] 71452 Gas and Carbon monoxide pane l (BldA)on 10-16-2023 Base excess Calc (Bld) [Moles/Vol] -0.5000 mmol/L Normal -2.0-3.[address] [facility] Comment on above: Performed By: #### 1 4979-9 #### ERICA Tam ([id number]) [facility] ([facility]) [address] [place] [address] 02265 Carboxyhemoglobin (BldA) [Mass fraction] 3.1 % Normal [facility] Comment on above: Result Comment: Ref Values Non-Smokers 0.5-1.5% Smokers 0.5-10.0% Performed By: #### 1 4979-9 #### ERICA Tam ([id number]) [facility] ([facility]) [address] [place] [address] 66254 CO2 (Bld) [Partial pressure] 39 mm Hg Normal 38-[address] [facility] Comment on above: Performed By: #### 1 4979-9 #### ERICA Tam ([id number]) [facility] ([facility]) [address] [place] [address] 59074 Deoxyhemoglobin (BldA) [Mass fraction] 4.8 % Normal 0.0-5.[address] [facility] Comment on above: Performed By: #### 1 4979-9 #### ERICA Tam ([id number]) [facility] ([facility]) [address] [place] [address] 75802 HCO3 (Bld) [Moles/Vol] 24.2 mmol/L Normal 22.0-26.0 [facility] Comment on above: Performed By: #### 1 4979-9 #### ERICA Tam ([id number]) [facility] ([facility]) [address] [place] [address] 17558 Hemoglobin (Bld) [Mass/Vol] 11.3 g/dL Low 13.5-17.[address] [facility] Comment on above: Performed By: #### 1 4979-9 #### ERICA Tam ([id number]) [facility] ([facility]) [address] [place] [address] 76744 Methemoglobin (BldA) [Mass fraction] 0.0 % Normal 0.0-1.[address] [facility] Comment on above: Performed By: #### 1 4979-9 #### ERICA Tam ([id number]) [facility] ([facility]) [address] [place] [address] 64259 Oxygen (Bld) [Partial pressure] 67 mm Hg Low 85-[address] [facility] Comment on above: Performed By: #### 1 4979-9 #### ERICA Tam ([id number]) [facility] ([facility]) [address] [place] [address] 86828 Oxyhemoglobin (BldA) [Mass fraction] 92.2 % Low 94.0-98.[address] [facility] Comment on above: Performed By: #### 1 4979-9 #### ERICA Tam ([id number]) [facility] ([facility]) [address] [place] [address] 61730 pH (Bld) 7.40 [pH] Normal 7.38-7.[address] [facility] Comment on above: Performed By: #### 1 4979-9 #### ERICA Tam ([id number]) [facility] ([facility]) [address] [place] [address] 31186 Glucose Test strip manual (B ld) [Mass/Vol]on 10-16-2023 Glucose [Mass/Vol] 151 mg/dL High 74-99 [facility] Comment on above: Performed By: #### 1 4979-9 #### ERICA Tam ([id number]) [facility] ([facility]) [address] [place] [address] 72545 Glucose [Mass/Vol] 261 mg/dL High [address] [place] [address] Comment on above: Performed By: #### 1 4979-9 #### ERICA Tam ([id number]) [facility] ([facility]) [address] [place] [address] 30154 Glucose [Mass/Vol] 170 mg/dL High -[address] [place] [address] Comment on above: Performed By: #### 5 902-2 #### ERICA Tam ([id number]) [facility] ([facility]) [address] [place] [address] 16272 HbA1c (Bld) [Mass fraction]o n 10-16-2023 Average glucose Estimated from glycated hemoglobin (Bld) [Mass/Vol] 148 mg/dL Normal Not Established [facility] Comment on above: Order Comment: If val monroe has not had PT + INR in the last 24 hours. Nursing to release order. Performed By: #### 5 902-2 #### ERICA Tam ([id number]) [facility] ([facility]) [address] [place], [place] [address] Hemoglobin A1c/Hemoglobin.to guero 10-16-2023 HbA1c (Bld) [Mass fraction] 6.8 % High see below [facility] Comment on above: Order Comment: If val monroe has not had PT + INR in the last 24 hours. Nursing to release order. Performed By: #### 5 902-2 #### ERICA Tam ([id number]) [facility] ([facility]) [address] [place], [place] [address] Heparin.unfractionatedon Heparin unfractionated Chromogenic method Qn (PPP) 0.3 IU/mL Normal See Comment Below for Therapeutic Ranges [facility] Comment on above: Order Comment: Prior to initiating heparin if not obtained in prior 48 hours. Nursing to release order. The APTT is no longer used for monitoring Unfractionated Heparin Therapy. For monitoring Heparin Therapy, use the Heparin Assay. Performed By: #### 1 4979-9 #### ERICA Tam ([id number]) [facility] ([facility]) [address] [place] [address] Heparin unfractionated Chromogenic method Qn (PPP) 0.2 IU/mL Normal See Comment Below for Therapeutic Ranges [facility] Comment on above: Order Comment: Prior to initiating heparin if not obtained in prior 48 hours. Nursing to release order. The APTT is no longer used for monitoring Unfractionated Heparin Therapy. For monitoring Heparin Therapy, use the Heparin Assay. Performed By: #### 1 4979-9 #### ERICA Tam ([id number]) [facility] ([facility]) [address] [place], [place] [address] Heparin unfractionated Chromogenic method Qn (PPP) 0.1 IU/mL Normal See Comment Below for Therapeutic Ranges [facility] Comment on above: Order Comment: If val monroe has not had PT + INR in the last 24 hours. Nursing to release order. Performed By: #### 5 902-2 #### ERICA Tam ([id number]) [facility] ([facility]) [address] [place] [address] 76788 Heparin unfractionated Chromogenic method Qn (PPP) 0.1 IU/mL Normal See Comment Below for Therapeutic Ranges [facility] Comment on above: Order Comment: Obtai [...] please refer to local Pharmacy and the [facility] Guidelines for Anticoagulation Therapy available on the [facility] intranet at: [email or web address] Performed By: #### 3 274-8 #### ERICA Tam ([id number]) [facility] ([facility]) [address] [place] [address] 55614 Iron and Iron binding capaci ty panelon 10-16-2023 Iron [Mass/Vol] 33 ug/dL Low 35-150 [facility] Comment on above: Result Comment: MILD HEMOLYSIS DETECTED. The result may be falsely elevated due to hemolysis or other interferents. Clinical correlation is recommended. Repeat testing may be considered. Performed By: #### 5 902-2 #### ERICA Tam ([id number]) [facility] ([facility]) [address] [place] [address] Iron binding capacity [Mass/Vol] 285 ug/dL Normal 240-[address] [facility] Comment on above: Performed By: #### 5 902-2 #### ERICA Tam ([id number]) [facility] ([facility]) [address] [place] [address] Iron binding capacity.unsaturated [Mass/Vol] 252 ug/dL Normal 110-[address] [facility] Comment on above: Performed By: #### 5 902-2 #### ERICA Tam ([id number]) [facility] ([facility]) [address] [place] [address] Iron saturation [Mass fraction] 12 % Low 25-[address] [facility] Comment on above: Performed By: #### 5 902-2 #### ERICA Tam ([id number]) [facility] ([facility]) [address] [place] [address] 14716 LIPID PANEL NON-FASTINGon Cholesterol [Mass/Vol] 114 mg/dL Normal 0-199 Un [facility] Comment on above: Result Comment: Age [...] reference:Pediatrics 2011, 128(S5).Adult guidelines reference: NCEP ATPIII Guidelines,JUDITH 2001, 258:2486-97 Venipuncture immediately after or during the administration of Metamizole may lead to falsely low results. Testing should be performed immediately prior to Metamizole dosing. Performed By: #### L IPIN #### ERICA Tam ([id number]) [facility] ([facility]) [address] [place] [address] 41004 Cholesterol in HDL [Mass/Vol] 25.8 mg/dL Normal [facility] Comment on above: Result Comment: Age Very Low Low Normal High 0-19 Y < 35 < 40 40-45 ---- 20-24 Y ---- < 40 >45 ---- >24 Y ---- < 40 40-60 >60 Performed By: #### L IPIN #### ERICA Tam ([id number]) [facility] ([facility]) [address] [place] [address] 00210 CHOLESTEROL/HDL RATIO 4.4 Normal [facility] Comment on above: Result Comment: Ref Values Desirable < 3.4 High Risk > 5.0 Performed By: #### L IPIN #### ERICA Tam ([id number]) [facility] ([facility]) [address] [place] [address] 55872 NON-HDL CHOLESTEROL 88 mg/dL Normal 0-149 [facility] Comment on above: Result Comment: Age Desiable Borderline High High Very High 0-19 Y 0 - 119 120 - 144 >/= 145 >/= 160 20-24 Y 0 - 149 150 - 189 >/= 190 ---- >24 Y 30 MG/DL ABOVE LDL CHOLESTEROL GOAL Performed By: #### L IPIN #### ERICA Tam ([id number]) [facility] ([facility]) [address] [place] [address] 72288 Magnesiumon 10-16-2023 Magnesium [Mass/Vol] 1.84 mg/dL Normal 1.60-2.40 [facility] Comment on above: Performed By: #### 1 4979-9 #### ERICA Tam ([id number]) [facility] ([facility]) [address] [place] [address] 79717 Natriuretic peptide B [Mass/ Vol]on 10-16-2023 Natriuretic peptide B (Bld) [Mass/Vol] 88 pg/mL Normal 0-[address] [facility] Comment on above: Order Comment: If val monroe has not had PT + INR in the last 24 hours. Nursing to release order. Performed By: #### 5 902-2 #### ERICA Tam ([id number]) [facility] ([facility]) [address] [place] [address] 66038 PT Coag (PPP) [Time]on 10-15 INR Coag (PPP) [Relative time] 1.1 Normal 0.9-1.[address] [facility] Comment on above: Order Comment: If val monroe has not had PT + INR in the last 24 hours. Nursing to release order. Performed By: #### 5 902-2 #### ERICA Tam ([id number]) [facility] ([facility]) [address] [place] [address] 53858 Platelets Auto (Bld) [#/Vol] on 10-16-2023 Platelets (Bld) [#/Vol] 276 x10*3/uL Normal 150-[address] [facility] Comment on above: Order Comment: Basel ine platelet count before any heparin given. May discontinue if platelet count already obtained today, or if heparin already administered. Performed By: #### 7 77-3 #### ERICA Tam ([id number]) [facility] ([facility]) [address] [place] [address] 32479 Renal function 2000 panelon 10-16-2023 Albumin BCP dye [Mass/Vol] 3.1 g/dL Low 3.4-5.[address] [facility] Comment on above: Performed By: #### 1 4979-9 #### ERICA Tam ([id number]) [facility] ([facility]) [address] [place] [address] 90891 Anion gap [Moles/Vol] 15 mmol/L Normal 10-20 [facility] Comment on above: Performed By: #### 1 4979-9 #### ERICA MCDONALD L ([id number]) [facility] ([facility]) [address] [place] [address] 46534 Calcium [Mass/Vol] 8.2 mg/dL Low 8.6-10.6 [facility] Comment on above: Performed By: #### 1 4979-9 #### ERICA MCDONALD L ([id number]) [facility] ([facility]) [address] [place] [address] 79067 Chloride [Moles/Vol] 103 mmol/L Normal 98-107 [facility] Comment on above: Performed By: #### 1 4979-9 #### ERICA RESTREPOMOMARLENY L ([id number]) [facility] ([facility]) [address] [place] [address] 93214 CO2 [Moles/Vol] 24 mmol/L Normal 21-32 [facility] Comment on above: Performed By: #### 1 4979-9 #### ERICA MCDONALD L ([id number]) [facility] ([facility]) [address] [place] [address] 62465 Creatinine [Mass/Vol] 1.52 mg/dL High 0.50-1.30 [facility] Comment on above: Performed By: #### 1 4979-9 #### ERICA Tam ([id number]) [facility] ([facility]) [address] [place] [address] Glomerular filtration rate/1.73 sq M.predicted 49 mL/min/1.73m*2 Low >[address] [facility] Comment on above: Result Comment: Calc ulations of estimated GFR are performed using the 2020 CKD-EPI Study Refit equation without the race variable for the IDMS-Traceable creatinine methods. https://jasn.asnjournals.org/content/early//ASN.57857 80603 Performed By: #### 1 4979-9 #### ERICA Tam ([id number]) [facility] ([facility]) [address] [place] [address] 09127 Glucose [Mass/Vol] 229 mg/dL High 74-99 [facility] Comment on above: Performed By: #### 1 4979-9 #### ERICA Tam ([id number]) [facility] ([facility]) [address] [place] [address] 29998 Phosphate [Mass/Vol] 3.1 mg/dL Normal 2.5-4.9 [facility] Comment on above: Result Comment: The performance characteristics of phosphorus testing in heparinized plasma have been validated by the individual laboratory site where testing is performed. Testing on heparinized plasma is not approved by the FDA; however, such approval is not necessary. Performed By: #### 1 4979-9 #### ERICA Tam ([id number]) [facility] ([facility]) [address] [place] [address] Potassium [Moles/Vol] 4.1 mmol/L Normal 3.5-5.3 [facility] Comment on above: Performed By: #### 1 4979-9 #### ERICA Tam ([id number]) [facility] ([facility]) [address] [place] [address] Sodium [Moles/Vol] 138 mmol/L Normal 136-145 [facility] Comment on above: Performed By: #### 1 4979-9 #### ERICA Tam ([id number]) [facility] ([facility]) [address] [place] [address] Urea nitrogen [Mass/Vol] 32 mg/dL High 6-[address] [facility] Comment on above: Performed By: #### 1 4979-9 #### ERICA Tam ([id number]) [facility] ([facility]) [address] [place] [address] Staphylococcus aureus.methic illin resistant isolateon 10-16-2023 MRSA isol Org specific cx Ql (Nose) Test: Staphylococcus aureus/MRSA colonization, Culture Specimen Source: Anterior Nares Specimen Type: Swab Specimen Date: 10/16/2023 1023 Result Date: 10/17/2023 1257 Result Status: Final result Abnormal: No Resulting Lab: [facility] [address] [place] [address] CULTURE No Staphylococcus aureus isolated Normal [facility] Comment on above: Performed By: #### 2 4323-8 #### ERICA Tam ([id number]) [facility] ([facility]) [address] [place] [address] TSH WITH REFLEX TO FREE T4 I F ABNORMALon 10-16-2023 TSH Qn 6.30 m[IU]/L High 0.44-3.[address] [facility] Comment on above: Order Comment: TSH t esting is performed using different testing methodology at [facility] than at other [facility]. Direct result comparisons should only be made within the same method. Performed By: #### T HYDS #### ERICA Tam ([id number]) [facility] ([facility]) [address] [place], [place] [address] Thyroxine.freeon 10-16-2023 Free T4 [Mass/Vol] 1.20 ng/dL Normal 0.78-1.48 [facility] Comment on above: Order Comment: If val monroe has not had PT + INR in the last 24 hours. Nursing to release order. Performed By: #### 5 902-2 #### ERICA Tam ([id number]) [facility] ([facility]) [address] [place] [address] 29766 Troponin I.cardiac panelon 0 10-16-2023 Tropinin I.cardiac panel High sensitivity method 916 ng/L Critically high 0-[address] [facility] Comment on above: Order Comment: If val monroe has not had PT + INR in the last 24 hours. Nursing to release order. Performed By: #### 5 902-2 #### ERICA Tam ([id number]) [facility] ([facility]) [address] [place] [address] 19823 Urinalysis complete W Reflex Culture panel (U)on 10-16-2023 Appearance (U) Clear Normal Clear [facility] Comment on above: Performed By: #### 5 8077-9 #### ERICA Tam ([id number]) [facility] ([facility]) [address] [place] [address] 19509 Bilirubin (U) [Mass/Vol] Negative Normal NEGATIVE [facility] Comment on above: Performed By: #### 5 8077-9 #### ERICA Tam ([id number]) [facility] ([facility]) [address] [place] [address] 91466 Color (U) Light-Yellow Normal Light-Yellow , Yellow, Dark-Yellow [facility] Comment on above: Performed By: #### 5 8077-9 #### ERICA MCDONALD L ([id number]) [facility] ([facility]) [address] [place] [address] 64878 Glucose Auto test strip (U) [Mass/Vol] 50 (TRACE) Abnormal Normal [facility] Comment on above: Performed By: #### 5 8077-9 #### ERICA MCDONALD L ([id number]) [facility] ([facility]) [address] [place] [address] 33250 Ketones (U) [Mass/Vol] Negative Normal NEGATIVE [facility] on above: Performed By: #### 5 8077-9 #### ERICA Tam ([id number]) [facility] ([facility]) [address] [place] [address] 97821 Leukocyte esterase Auto test strip Ql (U) Negative Normal NEGATIVE [facility] Comment on above: Performed By: #### 5 8077-9 #### ERICA Tam ([id number]) [facility] ([facility]) [address] [place] [address] 08162 Mucus Auto (Urine sed) [#/Area] FEW Normal Reference range not established. [facility] Comment on above: Performed By: #### 5 8077-9 #### ERICA Tam ([id number]) [facility] ([facility]) [address] [place] [address] 45989 Nitrite Auto test strip Ql (U) Negative Normal NEGATIVE [facility] Comment on above: Performed By: #### 5 8077-9 #### ERICA Tam ([id number]) [facility] ([facility]) [address] [place] [address] 70137 pH (U) 5.0 [pH] Normal 5.0, 5.5, 6.0, 6.5, 7.0, 7.5, 8.[address] [facility] Comment on above: Performed By: #### 5 8077-9 #### ERICA Tam ([id number]) [facility] ([facility]) [address] [place] [address] 94955 Protein (U) [Mass/Vol] 10 (TRACE) Normal NEGAT LE, 10 (TRACE), 20 (TRACE) [facility] Comment on above: Performed By: #### 5 8077-9 #### ERICA MCDONALD L ([id number]) [facility] ([facility]) [address] [place] [address] 16310 RBC (U) [#/Vol] Negative Normal NEGATIVE [facility] Comment on above: Performed By: #### 5 8077-9 #### ERICA ARREOLATZER L ([id number]) [facility] ([facility]) [address] [place] [address] RBC Auto (Urine sed) [#/Area] NONE Normal NONE, 1-2, 3-[address] [facility] Comment on above: Performed By: #### 5 8077-9 #### ERICA SCHMOTZER L ([id number]) [facility] ([facility]) [address] [place] [address] 19009 Specific gravity (U) [Rel density] 1.026 Normal 1.005-1.[address] [facility] Comment on above: Performed By: #### 5 8077-9 #### ERICA SCHMOTZER L ([id number]) [facility] ([facility]) [address] [place] [address] 87192 Urobilinogen (U) [Mass/Vol] Normal Normal Normal [facility] Comment on above: Performed By: #### 5 8077-9 #### ERICA RESTREPOMOTZER L ([id number]) [facility] ([facility]) [address] [place] [address] 03065 WBC Auto (Urine sed) [#/Area] 1-5 Normal 1-5, NONE [facility] Comment on above: Performed By: #### 5 8077-9 #### ERICA SCHMOTZER L ([id number]) [facility] ([facility]) [address] [place] [address] 22404 XR CHEST 2 VIEWSon XR CHEST 2 VIEWS Interpreted By: Rex Lamebrt, STUDY: XR CHEST 2 VIEWS; 10/16/2023 2:01 pm INDICATION: Signs/Symptoms:CABG evaluation. COMPARISON: None. ACCESSION NUMBER(S): [id number] ORDERING CLINICIAN: CATIA PATTON FINDINGS: CARDIOMEDIASTINAL SILHOUETTE: Cardiomegaly versus pericardial effusion. Right hilar calcifications. LUNGS: Low lung volumes with perihilar bibasilar atelectasis/effusions. ABDOMEN: No remarkable upper abdominal findings. BONES: No acute osseous changes. IMPRESSION: 1. Cardiomegaly with pulmonary edema and correlate with cardiac and fluid status. Signed by: Rex Ballesteros 10/18/2023 7:12 AM Dictation workstation: [id number] [facility] Activated partial thrombopla stin time (aPTT) in platelet poor plasma by coagulation aOrdered By: Ann Plata on 10-15-2023 aPTT Coag (PPP) [Time] 45.5 s High 25.1-36.5 [facility] Comment on above: A hematocrit value g reater than 55% may lead to inaccurate results in coagulation testing. Patients having hematocrit values >55% require a special collection tube for coagulation studies. Please contact the laboratory at [phone] for redraw instructions. Alanine aminotransferase [En zymatic activity/volume] in Serum or PlasmaOrdered By: Alondra Gonzales on 10-15-2023 ALT [Catalytic activity/Vol] 17 U/L Normal 7-52 [facility] Comment on above: Performed By: #### G LULS #### Point of Care testing , Albumin [Mass/volume] in Ser um or Plasma by Bromocresol green (BCG) dye binding methoOrdered By: Alondra Gonzales on 10-15-2023 Albumin BCG dye [Mass/Vol] 3.4 g/dL Low 3.5-5.7 [facility] Alkaline phosphatase [Enzyma tic activity/volume] in Serum or PlasmaOrdered By: Alondra Gonzales on 10-15-2023 ALP [Catalytic activity/Vol] 62 U/L Normal 34-104 [facility] Comment on above: Performed By: #### G LULS #### Point of Care testing , Aspartate aminotransferase [ Enzymatic activity/volume] in Serum or PlasmaOrdered By: Alondra Gonzales on 10-15-2023 AST [Catalytic activity/Vol] 16 U/L Normal 13-39 [facility] Comment on above: Performed By: #### G LULS #### Point of Care testing , Automated basophil %Ordered By: Alondra Gonzales on 10-15-2023 Basophils/100 WBC (Bld) 1.0 % Normal . [facility] Comment on above: Performed By: #### C BC #### [facility] [address] [place] [address] Automated basophil countOrde red By: Alondra Gonzales on 10-15-2023 Basophils (Bld) [#/Vol] 0.1 10*3/uL Normal 0.0-0.2 [facility] Comment on above: Result Comment: PERF ORMED BY: [place] [address] PATHOLOGIST REGULATORY COMPLIANCE OFFICER WOLFGANG JOHNSON M.D. Performed By: #### C BC #### [address] Automated blood monocyte cou ntOrdered By: Alondra Gonzales on 10-15-2023 Monocytes (Bld) [#/Vol] 0.9 10*3/uL High 0.0-0.8 [facility] Comment on above: Performed By: #### C BC #### [facility] [address] [place] [address] Automated eosinophil %Ordere d By: Alondra Gonzales on 10-15-2023 Eosinophils/100 WBC (Bld) 3.7 % Normal . [facility] Comment on above: Performed By: #### C BC #### [facility] [address] [place] [address] Automated eosinophil countOr dered By: lAondra Gonzales on 10-15-2023 Eosinophils (Bld) [#/Vol] 0.4 10*3/uL Normal 0.0-0.45 [facility] Comment on above: Performed By: #### C BC #### [address] Automated monocyte %Ordered By: Alondra Gonzales on 10-15-2023 Monocytes/100 WBC (Bld) 9.3 % Normal . [facility] Comment on above: Performed By: #### C BC #### [facility] [address] [place] [address] Automated neutrophil %Ordere d By: Harriettamarakel Gonzales on 10-15-2023 Neutrophils/100 WBC (Bld) 74.1 % Normal . [facility] Comment on above: Performed By: #### C BC #### [facility] [address] [place] [address] Bilirubin.total [Mass/volume ] in Serum or PlasmaOrdered By: Alondra Gonzales on 10-15-2023 Bilirubin [Mass/Vol] 0.4 mg/dL Normal 0.3-1.0 [facility] Comment on above: Performed By: #### G LULS #### Point of Care testing , Calcium [Mass/volume] in Ser um or PlasmaOrdered By: Alondra Gonzales on 10-15-2023 Calcium [Mass/Vol] 8.1 mg/dL Low 8.6-10.3 [facility] Comment on above: Performed By: #### G LULS #### Point of Care testing , Capillary blood glucose jose urement by glucometer (mass/volume)Ordered By: Yovanny Rivera on 10-15-2023 Glucose [Mass/Vol] 277 mg/dL Normal [facility] Comment on above: Random Glucose Refer ence Range is dependent on time and content of last meal. Glucose of more than 200 mg/dL in a nonstressed, ambulatory subject supports the diagnosis of Diabetes Mellitus. Result Comment: [place] Glucose Reference Range is dependent on time and content of last meal. Glucose of more than 200 mg/dL in a nonstressed, ambulatory subject supports the diagnosis of Diabetes Mellitus. PERFORMED BY: [address] [place] [address] PATHOLOGIST REGULATORY COMPLIANCE OFFICER WOLFGANG JOHNSON M.D. Performed By: #### C BC, ESR #### [address] Carbon dioxide, total [Moles /volume] in Serum or PlasmaOrdered By: Alondra Gonzales on 10-15-2023 CO2 [Moles/Vol] 28.2 mmol/L Normal 21.0-31.0 [facility] Comment on above: Performed By: #### G LULS #### Point of Care testing , Chloride [Moles/volume] in S teodoro or PlasmaOrdered By: Alondra Gonzales on 10-15-2023 Chloride [Moles/Vol] 104 mmol/L Normal 98-107 [facility] Comment on above: Performed By: #### G LULS #### Point of Care testing , Complete Blood Count Auto Di ffon 10-15-2023 Mean Corpuscular HGB Conc 33.4 g/dL Normal 32.5-35.6 [facility] Comment on above: Performed By: #### C BC #### [facility] [address] [place] [address] NRBC% 0.1 /100{WBC} Normal 0-0.5 [facility] Comment on above: Performed By: #### C BC #### [facility] [address] [place] [address] Comprehensive Metabolic Pane laxmi 10-15-2023 Albumin [Mass/Vol] 3.4 g/dL Low 3.5-5.7 [facility] Comment on above: Performed By: #### G LULS #### Point of Care testing , Creatinine Clr Calc Pharmacy 51.77 Normal [facility] Comment on above: Performed By: #### G LULS #### Point of Care testing , GFR/1.73 sq M.predicted MDRD (S/P/Bld) [Vol rate/Area] 43.716 mL/min/{1.73_m2} Normal [facility] Comment on above: Performed By: #### G LULS #### Point of Care testing , Creatinine [Mass/volume] in Serum or PlasmaOrdered By: Alondra Gonzales on 10-15-2023 Creatinine [Mass/Vol] 1.68 mg/dL High 0.70-1.30 [facility] Comment on above: Performed By: #### G LULS #### Point of Care testing , ECH echo transthoracicon ECH echo transthoracic [facility] Main [place] [address] [place] [address] Echocardiogram Signed Patient: Italia Allen MR#: [id number] : 1955 Acct:[id number] Age/Sex: 68 / M ADM Date: 10/14/23 Loc: Room: [address] [place] [address] Type: ADM IN Attending Dr: Yovanny Rivera MD Ordering Provider: Alondra Gonzales MD Date of Service: 10/14/23 [facility] echo transthoracic: CHF exacerbation Copies to: MD Alondra Lopez MD Michael R 10:19 AM Patient Location: : 1955 Gender: [...] Diogenes Talley MD 10/15/23 1856 Normal [facility] Erythrocyte distribution wid th [Ratio] by Automated countOrdered By: Alondra Gonzales on 10-15-2023 Erythrocyte distribution width (RBC) [Ratio] 15.1 % High 12.0-14.8 [facility] Comment on above: Performed By: #### C BC #### [facility] [address] [place] [address] Erythrocytes [#/volume] in B lood by Automated countOrdered By: Alondra Gonzales on 10-15-2023 RBC (Bld) [#/Vol] 3.97 10*6/uL Normal 3.90-5.60 [facility] Comment on above: Performed By: #### C BC #### [facility] [address] Glucose Poct Glucometerson 0 10-15-2023 Commemt1 Glu2: Cleaned Meter Normal [facility] Comment on above: Result Comment: PERF ORMED BY: [address] [place] [address] PATHOLOGIST REGULATORY COMPLIANCE OFFICER WOLFGANG JOHNSON M.D. Performed By: #### G LULS #### Point of Care testing , Glucose [Mass/Vol] 303 mg/dL Normal [facility] Comment on above: Result Comment: [place] om Glucose Reference Range is dependent on time and content of last meal. Glucose of more than 200 mg/dL in a nonstressed, ambulatory subject supports the diagnosis of Diabetes Mellitus. Performed By: #### G LULS #### Point of Care testing , Commemt1 Glu2: Cleaned Meter Normal [facility] Comment on above: Result Comment: PERF ORMED BY: [place] [id number] PATHOLOGIST REGULATORY COMPLIANCE OFFICER WOLFGANG JOHNSON M.D. Performed By: #### G LULS #### Point of Care testing , Glucose [Mass/Vol] 257 mg/dL Normal [facility] Comment on above: Result Comment: [place] om Glucose Reference Range is dependent on time and content of last meal. Glucose of more than 200 mg/dL in a nonstressed, ambulatory subject supports the diagnosis of Diabetes Mellitus. Performed By: #### G LULS #### Point of Care testing , Commemt1 Glu2: Cleaned Meter Normal [facility] Comment on above: Result Comment: PERF ORMED BY: [address] [place] [id number] PATHOLOGIST REGULATORY COMPLIANCE OFFICER WOLFGANG JOHNSON M.D. Performed By: #### G LULS #### Point of Care testing , Glucose [Mass/Vol] 159 mg/dL Normal [facility] Comment on above: Result Comment: [place] om Glucose Reference Range is dependent on time and content of last meal. Glucose of more than 200 mg/dL in a nonstressed, ambulatory subject supports the diagnosis of Diabetes Mellitus. Performed By: #### G LULS #### Point of Care testing , Glucose [Mass/volume] in Ser um or PlasmaOrdered By: Alondra Gonzales on 10-15-2023 Glucose [Mass/Vol] 120 mg/dL Significant change up 70-100 [facility] Comment on above: Delta: 220 on -1127ADA recommended reference rangeRandom Glucose Reference Range is dependent on time and content of last meal. Glucose of more than 200 mg/dL in a nonstressed, ambulatory subject supports the diagnosis of Diabetes Mellitus. Result Comment: [facility] Glucose Reference Range is dependent on time [...] (Bld) [Volume fraction] 35.0 % Low 38.8-50.0 [facility] Comment on above: Performed By: #### C BC #### [facility] [address] [place] [address] Hemoglobin [Mass/volume] in BloodOrdered By: Alondra Gonzales on 10-15-2023 Hemoglobin (Bld) [Mass/Vol] 11.7 g/dL Low 13.0-17.0 [facility] Comment on above: Performed By: #### C BC #### [facility] [address] [place] [address] INR in Platelet poor plasma by Coagulation assayOrdered By: Alondra Gonzales on 10-15-2023 INR Coag (PPP) [Relative time] 1.1 {INR} Normal [facility] Comment on above: INR Therapeutic Rang [...] Performed By: #### P TT, PT #### [address] Leukocytes [#/volume] correc zaid for nucleated erythrocytes in Blood by Automated counOrdered By: Alondra Gonzales on 10-15-2023 WBC corrected for nucl RBC Auto (Bld) [#/Vol] 9.8 10*3/uL 4.1-10.5 [facility] Leukocytes [#/volume] in Blo od by Automated countOrdered By: Alondra Gonzales on 10-15-2023 WBC (Bld) [#/Vol] 9.8 10*3/uL Normal 4.1-10.5 [facility] Comment on above: Performed By: #### C BC #### [address] Lymphocytes [#/volume] in Bl ood by Automated countOrdered By: Alondra Gonzales on 10-15-2023 Lymphocytes (Bld) [#/Vol] 1.2 10*3/uL Normal 1.00-4.8 [facility] Comment on above: Performed By: #### C BC #### [address] Lymphocytes/100 leukocytes i n Blood by Automated countOrdered By: Alondra Gonzales on 10-15-2023 Lymphocytes/100 WBC (Bld) 11.9 % Normal . [facility] Comment on above: Performed By: #### C BC #### [address] MCH [Entitic mass] by Automa zaid countOrdered By: Alondra Gonzales on 10-15-2023 MCH (RBC) [Entitic mass] 29.4 pg Normal 27.5-35.2 [facility] Comment on above: Performed By: #### C BC #### [address] MCHC Auto (RBC) [Mass/Vol]Or dered By: Alondra Gonzales on 10-15-2023 MCHC (RBC) [Mass/Vol] 33.4 g/dL 32.5-35.6 [facility] MCV [Entitic volume] by Auto mated countOrdered By: Alondra Gonzales on 10-15-2023 MCV (RBC) [Entitic vol] 87.9 fL Normal 83.5-101 [facility] Comment on above: Performed By: #### C BC #### [facility] [address] [place] [address] Magnesium [Mass/volume] in S teodoro or PlasmaOrdered By: Alondra Gonzales on 10-15-2023 Magnesium [Mass/Vol] 1.7 mg/dL Low 1.9-2.7 [facility] Comment on above: Result Comment: PERF ORMED BY: [place] [address] PATHOLOGIST REGULATORY COMPLIANCE OFFICER WOLFGANG JOHNSON M.D. Performed By: #### G LULS #### Point of Care testing , Neutrophils [#/volume] in Bl ood by Automated countOrdered By: Alondra Gonzales on 10-15-2023 Neutrophils (Bld) [#/Vol] 7.3 10*3/uL Normal 1.8-7.7 [facility] Comment on above: Performed By: #### C BC #### [facility] [address] [place] [address] No Panel InformationOrdered By: Yovanny Rivera on 10-15-2023 Bedside Glucose Comment Glu2: cleaned meter [facility] No Panel InformationOrdered By: Alondra Gonzales on 10-15-2023 Estimated GFR (CKD-EPI) 43.716 mL/Min [facility] Creatinine Clearance (Chem 51.77 [facility] Nucleated erythrocytes [Pres ence] in Blood by Automated countOrdered By: Alondra Gonzales on 10-15-2023 Nucleated RBC Auto Ql (Bld) 0.1 /100{WBC} 0-0.5 [facility] Partial Thromboplastin Timeo n 10-15-2023 aPTT Coag (Bld) [Time] 45.5 s High 25.1-36.5 [facility] Comment on above: Result Comment: A he matocrit value greater than 55% may lead to inaccurate results in coagulation testing. Patients having hematocrit values >55% require a special collection tube for coagulation studies. Please contact the laboratory at [phone] for redraw instructions. PERFORMED BY: [place] [address] PATHOLOGIST REGULATORY COMPLIANCE OFFICER WOLFGANG JOHNSON M.D. Performed By: #### P TT #### [address] aPTT Coag (Bld) [Time] 41.7 s High 25.1-36.5 [facility] Comment on above: Order Comment: List the anticoagulant: HEPARIN, UNFRACTIONATED Result Comment: A he matocrit value greater than 55% may lead to inaccurate results in coagulation testing. Patients having hematocrit values >55% require a special collection tube for coagulation studies. Please contact the laboratory at [phone] for redraw instructions. PERFORMED BY: [place] [address] PATHOLOGIST REGULATORY COMPLIANCE OFFICER WOLFGANG JOHNSON M.D. Performed By: #### P TT, PT #### [address] Phosphate [Mass/volume] in S teodoro or PlasmaOrdered By: Alondra Gonzales on 10-15-2023 Phosphate [Mass/Vol] 3.8 mg/dL Normal 2.5-4.5 [facility] Comment on above: Performed By: #### G LULS #### Point of Care testing , Platelet mean volume [Entiti c volume] in Blood by Automated countOrdered By: Alondra Gonzales on 10-15-2023 Platelet mean volume (Bld) [Entitic vol] 7.7 fL Normal 6.6-10.1 [facility] Comment on above: Performed By: #### C BC #### [place] [address] [place] Platelets [#/volume] in Bloo d by Automated countOrdered By: Alondra Gonzales on 10-15-2023 Platelets (Bld) [#/Vol] 285 10*3/uL Normal 150-450 [facility] Comment on above: Performed By: #### C BC #### [facility] [address] [place] [address] [place] Potassium [Moles/volume] in Serum or PlasmaOrdered By: Alondra Gonzales on 10-15-2023 Potassium [Moles/Vol] 4.1 mmol/L Normal 3.5-5.1 [facility] Comment on above: Performed By: #### G LULS #### Point of Care testing , Protein [Mass/volume] in Ser um or PlasmaOrdered By: Alondra Gonzales on 10-15-2023 Protein [Mass/Vol] 5.6 g/dL Low 6.4-8.9 [facility] Comment on above: Performed By: #### G LULS #### Point of Care testing , Prothrombin time (PT)Ordered By: Alondra Gonzales on 10-15-2023 PT Coag (PPP) [Time] 12.6 s Normal 9.0-12.9 [facility] Comment on above: A hematocrit value g reater than 55% may lead to inaccurate results in coagulation testing. Patients having hematocrit values >55% require a special collection tube for coagulation studies. Please contact the laboratory at [phone] for redraw instructions. Order Comment: List the anticoagulant: HEPARIN, UNFRACTIONATED Result Comment: A he matocrit value greater than 55% may lead to inaccurate results in coagulation testing. Patients having hematocrit values >55% require a special collection tube for coagulation studies. Please contact the laboratory at [phone] for redraw instructions. Performed By: #### P TT, PT #### [facility] [address] [place] [id number] [place] Serum globulin measurement b y calculation (mass/volume)Ordered By: Alondra Gonzales on 10-15-2023 Globulin (S) [Mass/Vol] 2.2 g/dL Normal [facility] Comment on above: Performed By: #### G LULS #### Point of Care testing , Serum or plasma albumin/glob ulin mass ratioOrdered By: Alondra Gonzales on 10-15-2023 Albumin/Globulin [Mass ratio] 1.5 {ratio} Normal [facility] Comment on above: Performed By: #### G LULS #### Point of Care testing , Serum or plasma anion gap de terminationOrdered By: Alondra Gonzales on 10-15-2023 Anion gap [Moles/Vol] 10.9 mmol/L Normal 6.0-15.0 [facility] Comment on above: Performed By: #### G LULS #### Point of Care testing , Sodium [Moles/volume] in Ser um or PlasmaOrdered By: Alondra Gonzales on 10-15-2023 Sodium [Moles/Vol] 139 mmol/L Normal 136-145 [facility] Comment on above: Performed By: #### G LULS #### Point of Care testing , US renal BIon 10-15-2023 US renal BI [facility] [place] [address] Ultrasound Report Signed Patient: Italia Allen MR#: [id number] : 1955 Acct:[id number] Age/Sex: 68 / M ADM Date: 10/14/23 Loc: Room: [address] [place] [address] Type: ADM IN Attending Dr: Yovanny Rivera [...] Baird Jr., D.O.10/15/2023 9:59 AM Dictation Location: [place] [address] Tech: Rebecca Hein Transcribed By: PWS 10/15/2359 Dictated By: Jude Baird Jr, DO 10/15/23 0954 Signed By: 10/15/23 0959 Normal [facility] Urea nitrogen [Mass/volume] in Serum or PlasmaOrdered By: Alondra Gonzales on 10-15-2023 Urea nitrogen [Mass/Vol] 33 mg/dL High 09-12 [facility] Comment on above: Performed By: #### G RYAN #### Point of Care testing , C reactive protein [Mass/vol ume] in Serum or PlasmaOrdered By: Alondra Gonzales on 10-14-2023 CRP [Mass/Vol] 2.7 mg/dL High 0.0-0.5 [facility] C-Reactive Proteinon 024 C-Reactive Protein 2.7 mg/dL High 0.0-0.5 [facility] Comment on above: Result Comment: PERF ORMED BY: [place] [address] PATHOLOGIST REGULATORY COMPLIANCE OFFICER WOLFGANG JOHNSON M.D. Performed By: #### C BC, ESR #### [address] Complete Blood Count Auto Di ffon 10-14-2023 Basophils (Bld) [#/Vol] 0.1 10*3/uL Normal 0.0-0.2 [facility] Comment on above: Performed By: #### C BC, ESR #### [place] [address] [place] Basophils/100 WBC (Bld) 1.3 % Normal . [facility] Comment on above: Performed By: #### C BC, ESR #### [place] [address] [place] Eosinophils (Bld) [#/Vol] 0.2 10*3/uL Normal 0.0-0.45 [facility] Comment on above: Performed By: #### C BC, ESR #### [place] [address] [place] Eosinophils/100 WBC (Bld) 3.2 % Normal . [facility] Comment on above: Performed By: #### C BC, ESR #### [address] Erythrocyte distribution width (RBC) [Ratio] 15.4 % High 12.0-14.8 [facility] Comment on above: Performed By: #### C BC, ESR #### [address] Hematocrit (Bld) [Volume fraction] 35.1 % Low 38.8-50.0 [facility] Comment on above: Performed By: #### C BC, ESR #### [address] Hemoglobin (Bld) [Mass/Vol] 11.6 g/dL Low 13.0-17.0 [facility] Comment on above: Performed By: #### C BC, ESR #### [address] Lymphocytes (Bld) [#/Vol] 0.9 10*3/uL Low 1.00-4.8 [facility] Comment on above: Performed By: #### C BC, ESR #### [address] Lymphocytes/100 WBC (Bld) 12.1 % Normal . [facility] Comment on above: Performed By: #### C BC, ESR #### [address] MCH (RBC) [Entitic mass] 29.3 pg Normal 27.5-35.2 [facility] Comment on above: Performed By: #### C BC, ESR #### [address] MCV (RBC) [Entitic vol] 88.7 fL Normal 83.5-101 [facility] Comment on above: Performed By: #### C BC, ESR #### [address] Mean Corpuscular HGB Conc 33.0 g/dL Normal 32.5-35.6 [facility] Comment on above: Performed By: #### C BC, ESR #### [facility] [address] [place] [address] [place] Monocytes (Bld) [#/Vol] 0.6 10*3/uL Normal 0.0-0.8 [facility] Comment on above: Performed By: #### C BC, ESR #### [facility] [address] [place] [address] [place] Monocytes/100 WBC (Bld) 7.5 % Normal . [facility] Comment on above: Performed By: #### C BC, ESR #### [facility] [address] [place] [address] [place] Neutrophils (Bld) [#/Vol] 5.7 10*3/uL Normal 1.8-7.7 [facility] Comment on above: Performed By: #### C BC, ESR #### [facility] [address] [place] [address] [place] Neutrophils/100 WBC (Bld) 75.9 % Normal . [facility] Comment on above: Performed By: #### C BC, ESR #### [facility] [address] [place] [address] [place] NRBC% 0.1 /100{WBC} Normal 0-0.5 [facility] Comment on above: Performed By: #### C BC, ESR #### [facility] [address] [place] [address] [place] Platelet mean volume (Bld) [Entitic vol] 7.8 fL Normal 6.6-10.1 [facility] Comment on above: Performed By: #### C BC, ESR #### [facility] [address] [place] [address] [place] Platelets (Bld) [#/Vol] 290 10*3/uL Normal 150-450 [facility] Comment on above: Performed By: #### C BC, ESR #### [facility] [address] [place] [address] [place] RBC (Bld) [#/Vol] 3.95 10*6/uL Normal 3.90-5.60 [facility] Comment on above: Performed By: #### C BC, ESR #### [address] WBC (Bld) [#/Vol] 7.5 10*3/uL Normal 4.1-10.5 [facility] Comment on above: Performed By: #### C BC, ESR #### [address] Basophils (Bld) [#/Vol] 0.1 10*3/uL Normal 0.0-0.2 [facility] Comment on above: Result Comment: PERF ORMED BY: [place] [address] PATHOLOGIST REGULATORY COMPLIANCE OFFICER WOLFGANG JOHNSON M.D. Performed By: #### C BC, ESR #### [address] Basophils/100 WBC (Bld) 1.3 % Normal . [facility] Comment on above: Performed By: #### C BC, ESR #### [address] Eosinophils (Bld) [#/Vol] 0.3 10*3/uL Normal 0.0-0.45 [facility] Comment on above: Performed By: #### C BC, ESR #### [address] Eosinophils/100 WBC (Bld) 3.4 % Normal . [facility] Comment on above: Performed By: #### C BC, ESR #### [address] Erythrocyte distribution width (RBC) [Ratio] 15.3 % High 12.0-14.8 [facility] Comment on above: Performed By: #### C BC, ESR #### [address] Hematocrit (Bld) [Volume fraction] 35.3 % Low 38.8-50.0 [facility] Comment on above: Performed By: #### C BC, ESR #### [address] [place] [address] [place] Hemoglobin (Bld) [Mass/Vol] 11.8 g/dL Low 13.0-17.0 [facility] Comment on above: Performed By: #### C BC, ESR #### [address] Lymphocytes (Bld) [#/Vol] 0.9 10*3/uL Low 1.00-4.8 [facility] Comment on above: Performed By: #### C BC, ESR #### [address] Lymphocytes/100 WBC (Bld) 10.9 % Normal . [facility] Comment on above: Performed By: #### C BC, ESR #### [address] MCH (RBC) [Entitic mass] 29.5 pg Normal 27.5-35.2 [facility] Comment on above: Performed By: #### C BC, ESR #### [address] MCV (RBC) [Entitic vol] 87.9 fL Normal 83.5-101 [facility] Comment on above: Performed By: #### C BC, ESR #### [address] Mean Corpuscular HGB Conc 33.5 g/dL Normal 32.5-35.6 [facility] Comment on above: Performed By: #### C BC, ESR #### [place] [address] [place] Monocytes (Bld) [#/Vol] 0.6 10*3/uL Normal 0.0-0.8 [facility] Comment on above: Performed By: #### C BC, ESR #### [place] [address] [place] Monocytes/100 WBC (Bld) 7.5 % Normal . [facility] Comment on above: Performed By: #### C BC, ESR #### [address] [place] [address] [place] Neutrophils (Bld) [#/Vol] 6.0 10*3/uL Normal 1.8-7.7 [facility] Comment on above: Performed By: #### C BC, ESR #### [address] Neutrophils/100 WBC (Bld) 76.9 % Normal . [facility] Comment on above: Performed By: #### C BC, ESR #### [address] NRBC% 0.1 /100{WBC} Normal 0-0.5 [facility] Comment on above: Performed By: #### C BC, ESR #### [address] Platelet mean volume (Bld) [Entitic vol] 7.8 fL Normal 6.6-10.1 [facility] [facility] Comment on above: Performed By: #### C BC, ESR #### [address] Platelets (Bld) [#/Vol] 288 10*3/uL Normal 150-450 [facility] Comment on above: Performed By: #### C BC, ESR #### [address] RBC (Bld) [#/Vol] 4.01 10*6/uL Normal 3.90-5.60 [facility] Comment on above: Performed By: #### C BC, ESR #### [address] WBC (Bld) [#/Vol] 7.8 10*3/uL Normal 4.1-10.5 [facility] Comment on above: Performed By: #### C BC, ESR #### [address] Comprehensive Metabolic Pane laxmi 10-14-2023 Albumin [Mass/Vol] 3.3 g/dL Low 3.5-5.7 [facility] Comment on above: Performed By: #### C BC, ESR #### [address] Albumin/Globulin [Mass ratio] 1.4 {ratio} Normal [facility] Comment on above: Performed By: #### C BC, ESR #### [address] ALP [Catalytic activity/Vol] 59 U/L Normal 34-104 [facility] Comment on above: Performed By: #### C BC, ESR #### [address] ALT [Catalytic activity/Vol] 17 U/L Normal 7-52 [facility] Comment on above: Performed By: #### C BC, ESR #### [address] Anion gap [Moles/Vol] 10.6 mmol/L Normal 6.0-15.0 [facility] Comment on above: Performed By: #### C BC, ESR #### [address] AST [Catalytic activity/Vol] 16 U/L Normal 13-39 [facility] Comment on above: Performed By: #### C BC, ESR #### [address] Bilirubin [Mass/Vol] 0.5 mg/dL Normal 0.3-1.0 [facility] Comment on above: Performed By: #### C BC, ESR #### [address] Calcium [Mass/Vol] 8.2 mg/dL Low 8.6-10.3 [facility] Comment on above: Performed By: #### C BC, ESR #### [place] [address] [place] Chloride [Moles/Vol] 106 mmol/L Normal 98-107 [facility] Comment on above: Performed By: #### C BC, ESR #### [address] CO2 [Moles/Vol] 28.5 mmol/L Normal 21.0-31.0 [facility] Comment on above: Performed By: #### C BC, ESR #### [facility] [address] Creatinine [Mass/Vol] 1.61 mg/dL High 0.70-1.30 [facility] Comment on above: Performed By: #### C BC, ESR #### [place] [address] [place] Creatinine Clr Calc Pharmacy 54.02 Normal [facility] Comment on above: Performed By: #### C BC, ESR #### [facility] [address] [place] [address] [place] GFR/1.73 sq M.predicted MDRD (S/P/Bld) [Vol rate/Area] 46.006 mL/min/{1.73_m2} Normal [facility] Comment on above: Performed By: #### C BC, ESR #### [address] Globulin (S) [Mass/Vol] 2.3 g/dL Normal [facility] Comment on above: Performed By: #### C BC, ESR #### [address] Glucose [Mass/Vol] 220 mg/dL High 70-100 [facility] Comment on above: Result Comment: [place] Glucose Reference Range is dependent on time and content of last meal. Glucose of more than 200 mg/dL in a nonstressed, ambulatory subject supports the diagnosis of Diabetes Mellitus. ADA recommended reference range Performed By: #### C BC, ESR #### [address] Potassium [Moles/Vol] 4.1 mmol/L Normal 3.5-5.1 [facility] Comment on above: Performed By: #### C BC, ESR #### [address] Protein [Mass/Vol] 5.6 g/dL Low 6.4-8.9 [facility] Comment on above: Performed By: #### C BC, ESR #### [facility] [address] Sodium [Moles/Vol] 141 mmol/L Normal 136-145 [facility] Comment on above: Performed By: #### C BC, ESR #### [facility] [address] Urea nitrogen [Mass/Vol] 31 mg/dL High 7-25 [facility] Comment on above: Performed By: #### C BC, ESR #### [facility] [address] ECG 12 lead ECGon 10-14-2023 ECG 12 lead ECG [facility] [place] [address] [place] [address] Electrocardiograph Report Signed Patient: Italia Allen MR#: [id number] : 1955 Acct:[id number] Age/Sex: 68 / M ADM Date: 10/14/23 Loc: Room: [address] [place] [address] Type: DIS IN Attending Dr: Yovanny Rivera [...] previous ECGs available Confirmed by Diogenes Talley ([id number]) on 10/16/2023 10:19:42 PM Referred By: Electronically Signed By: Diogenes Talley Transcribed By: MUS Signed By Diogenes Talley MD 10/16/231 Normal [facility] Erythrocyte Sedimentation Ra clarice 10-14-2023 ESR (Bld) [Velocity] 22 mm/h High 0-19 [facility] Comment on above: Result Comment: PERF ORMED BY: [place] [address] PATHOLOGIST REGULATORY COMPLIANCE OFFICER WOLFGANG JOHNSON M.D. Performed By: #### C BC, ESR #### [facility] [address] Erythrocyte sedimentation ra te by Photometric methodOrdered By: Alondra Gonzales on 10-14-2023 ESR Photometric method (Bld) [Velocity] 22 mm/hr High 0-19 [facility] Glucose Poct Glucometerson 0 10-14-2023 Glucose [Mass/Vol] 306 mg/dL Normal [facility] Comment on above: Result Comment: [facility] Glucose Reference Range is dependent on time and content of last meal. Glucose of more than 200 mg/dL in a nonstressed, ambulatory subject supports the diagnosis of Diabetes Mellitus. PERFORMED BY: [place] [address] PATHOLOGIST REGULATORY COMPLIANCE OFFICER WOLFGANG JOHNSON M.D. Performed By: #### G LULS #### Point of Care testing , Glucose [Mass/Vol] 221 mg/dL Normal [facility] Comment on above: Result Comment: [facility] Glucose Reference Range is dependent on time and content of last meal. Glucose of more than 200 mg/dL in a nonstressed, ambulatory subject supports the diagnosis of Diabetes Mellitus. PERFORMED BY: [place] [address] PATHOLOGIST REGULATORY COMPLIANCE OFFICER WOLFGANG JOHNSON M.D. Performed By: #### G LULS #### Point of Care testing , Magnesiumon 10-14-2023 Magnesium [Mass/Vol] 1.7 mg/dL Low 1.9-2.7 [facility] Comment on above: Performed By: #### C BC, ESR #### [facility] [address] [place] [address] [place] Partial Thromboplastin Timeo n 10-14-2023 aPTT Coag (Bld) [Time] 35.7 s Normal 25.1-36.5 [facility] Comment on above: Result Comment: A he matocrit value greater than 55% may lead to inaccurate results in coagulation testing. Patients having hematocrit values >55% require a special collection tube for coagulation studies. Please contact the laboratory at [phone] for redraw instructions. PERFORMED BY: [place] [id number] PATHOLOGIST REGULATORY COMPLIANCE OFFICER WOLFGANG JOHNSON M.D. Performed By: #### P TT #### [place] [id number] [place] aPTT Coag (Bld) [Time] 31.1 s Normal 25.1-36.5 [facility] Comment on above: Result Comment: A he matocrit value greater than 55% may lead to inaccurate results in coagulation testing. Patients having hematocrit values >55% require a special collection tube for coagulation studies. Please contact the laboratory at [phone] for redraw instructions. PERFORMED BY: [place] [address] PATHOLOGIST REGULATORY COMPLIANCE OFFICER WOLFGANG JOHNSON M.D. Performed By: #### C BC, ESR #### [place] [id number] [place] Prothrombin Time INRon 10-13 INR Coag (PPP) [Relative time] 1.1 {INR} Normal [facility] Comment on above: Result Comment: [...] Performed By: #### C BC, ESR #### [place] [id number] [place] PT Coag (PPP) [Time] 13.0 s High 9.0-12.9 [facility] Comment on above: Result Comment: A he matocrit value greater than 55% may lead to inaccurate results in coagulation testing. Patients having hematocrit values >55% require a special collection tube for coagulation studies. Please contact the laboratory at [phone] for redraw instructions. Performed By: #### C BC, ESR #### [place] [id number] [place] Troponin I High Sensitivityo n 10-14-2023 Troponin I High Sensitivity 1682.8 pg/mL Off scale high 0.0-20.0 [facility] Comment on above: Result Comment: Crit ical Result : Called to and read back by: JAREK REESE at: 10/14/2023 12:42:52 by:ADRIENNE PERFORMED BY: [place] [address] PATHOLOGIST REGULATORY COMPLIANCE OFFICER WOLFGANG JOHNSON M.D. Performed By: #### C BC, ESR #### [address] Troponin I.cardiac [Mass/vol ume] in Serum or Plasma by Detection limit <= 0.01 ng/Ordered By: Alondra Gonzales on 10-14-2023 Troponin I.cardiac DL <= 0.01 ng/mL [Mass/Vol] 1682.8 pg/mL High 0.0-20.0 [facility] Comment on above: Critical Result : Ca lled to and read back by: JAREK REESE at: 10/14/2023 12:42:52 by:ADRIENNE XR chest 1V portableon 10-13 XR chest 1V portable [facility] Main [place] [address] [place] [address] XRay Report Signed Patient: Italia Allen MR#: [id number] : 1955 Acct:[id number] Age/Sex: 68 / M ADM Date: 10/14/23 Loc: Room: [address] [place] [address] Type: ADM IN Attending Dr: Alondra Gonzales [...] Andrés Hardwick M.D.10/14/2023 12:13 PM Dictation Location: [place] [address] Transcribed By: [facility] 10/14/23 1213 Dictated By: Andrés Hardwick II, MD 10/14/23 1212 Signed By: 10/14/23 1213 Normal [facility] Vital Signs Date Time Vital Sign Value Performing Clinician Facility 11-29-2023 13:55-0400 Body height 177.8 cm Fatemeh Knox DPM Work Phone: [facility] 11-29-2023 13:55-0400 Body mass index (BMI) [Ratio] 35.87 kg/m2 Fatemeh Jared DPM Work Phone: [facility] 11-29-2023 13:55-0400 Body weight 113.4 kg Fatemeh Jared DPM Work Phone: [facility] 11-22-2023 15:42-0400 Blood Pressure Location [facility] 11-22-2023 15:42-0400 Diastolic blood pressure 60 mm[Hg] [facility] 11-22-2023 15:42-0400 Heart rate 76 /min [facility] 11-22-2023 15:42-0400 Respiratory rate 16 /min [facility] 11-22-2023 15:42-0400 Systolic blood pressure 110 mm[Hg] [facility] 10-16-2023 15:57-0400 Body temperature 37.0 degrees Celsius [facility] Comment on above: Result Comment: NOTE: Patient Results ar e Not Corrected for Temperature Performed By: #### 1 [id number] #### ERICA Tam ([id number]) [facility] ([facility]) [address] [place] [id number] 10-16-2023 15:57-0400 SaO2% (BldA) [Mass fraction] 95 % [facility] Comment on above: Performed By: #### [id number] #### ERICA Tam ([id number]) [facility] ([facility]) [address] [place] [address] 10-15-2023 23:16-0400 Body temperature 98 [degF] [facility] 10-15-2023 23:16-0400 Diastolic blood pressure 73 mm[Hg] [facility] 10-15-2023 23:16-0400 Heart rate 104 /min [facility] 10-15-2023 23:16-0400 Respiratory rate 18 /min [facility] 10-15-2023 23:16-0400 SaO2% (BldA) [Mass fraction] 92 % [facility] 10-15-2023 23:16-0400 Systolic blood pressure 153 mm[Hg] [facility] 10-15-2023 20:00-0400 Inhaled oxygen flow rate 2 L/min [facility] 10-15-2023 14:51-0400 Body height 177.8 cm [facility] 10-15-2023 06:00-0400 Body weight 112.2 kg [facility] Encounters Encounter Date Encounter Type Care Provider Facility Start: 12-04-2023 End: 12-04-2023 ambulatory Marine X Cherrie Facility:[facility] Start: 12-04-2023 End: 12-04-2023 Patient encounter procedure Marine X Orzech [facility] Start: 12-03-2023 ambulatory Marine Grier Facility: [facility] Start: 11-29-2023 End: 11-29-2023 Bamboo flowsheet Fatemeh Coleman DPM Work Phone: [facility] Start: 11-29-2023 End: 11-29-2023 Bamboo flowsheet Fateemh Coleman DPM Work Phone: [facility] Start: 11-29-2023 End: 11-29-2023 ambulatory FATEMEH COLEMAN Not Available Start: 11-29-2023 End: 11-29-2023 Office outpatient new 30 minutes Fatemeh Coleman DPM Work Phone: [facility] Comment on above: Dermatophytosis of n ail (Primary Dx); Dystrophic nail; Angiopathy, diabetic (CMS/HCC); Diabetic polyneuropathy associated with type 2 diabetes mellitus ([facility]/HCC) Start: 11-22-2023 End: 11-22-2023 ambulatory Marine Grier Facility:[facility] Start: 11-22-2023 End: 11-22-2023 Patient encounter procedure Marine Ryderelli [facility] Start: 11-13-2023 End: 11-13-2023 ambulatory [facility] Start: 11-02-2023 End: 11-02-2023 ambulatory [facility] Start: 10-15-2023 End: 10-24-2023 Encounter for preprocedural cardiovascular examination [facility] Start: 10-15-2023 End: 10-24-2023 Evaluation and management of inpatient [facility] Start: 10-14-2023 End: 10-15-2023 Evaluation and management of inpatient [facility] [place] [facility] Work Phone: Procedures Date Procedure Procedure Detail Performing Clinician Start: 10-15-2023 Start: 10-15-2023 [facility] Start: 10-15-2023 Ultrasonography of b ilateral kidneys Start: 10-14-2023 Plain chest X-ray Cholecystectomy Marine Ryderdeis sandrita Tonsillectomy Marine Efrainsobia Plan of Treatment Date Care Activity Detail Author Start: 03-13-2024 End: 03-13-2024 Patient encounter procedure 03/13/2024 2:15 PM EST Procedure Visit [facility] [address] [place] [id number] Fatemeh Coleman DPM [address] [place], [place] [id number] [facility] Start: 10-21-2023 Influenza vaccination Influenza Vaccine (#1) [facility] Start: 10-15-2023 [facility] Start: 10-15-2023 [facility] Start: 10-14-2023 [facility] Start: 10-14-2023 Hospital admission [facility] Start: 10-14-2023 Referral to drug and alcohol treatment specialist [facility] Start: 08-02-2019 Pneumococcal Vaccine: 65+ Years (2 of 2 - PCV) Pneumococcal Vaccine: 65+ Years (2 of 2 - PCV) [facility] Start: 1955 Screening for malignant neoplasm of colon [facility] Patient Education Heart Failure, Adult (DC) [facility] Work Phone: Immunizations Immunization Date Immunization Notes Care Provider Fa pettyty 03-05-2021 Influenza, injectabl e, Madin Casi Canine Kidney, preservative free, quadrivalent Fatemeh Coleman DPM Work Phone: [facility] 03-05-2021 influenza virus vacc ine, unspecified formulation Fatemeh Coleman DPM Work Phone: [facility] 12-21-2019 influenza, injectabl e, quadrivalent, contains preservative Fatemeh Coleman DPM Work Phone: [facility] 11-30-2017 Influenza, injectabl e, Madin [place] Canine Kidney, preservative free, quadrivalent Fatemeh Coleman DPM Work Phone: [facility] 11-30-2017 pneumococcal polysaccharide vaccine, 23 valent Fatemeh Coleman DPM Work Phone: [facility] Healthcare Payers Date Payer Category Payer Self-pay 2020 Medicare MEDICARE MEDICAR E PART B [id number] 2020-[place] [address] Medicare [id number] 2020 Medicare [id number] 1955 Unknown [id number] 4 1955 Unknown [id number] 5 1955 Unknown [id number] 5 1955 Unknown [id number] 9 1955 Unknown [id number] 1955 Unknown [id number] 1955 Unknown [id number] Unknown [employer] KIMBALL/LINK [id number] Unknown [id number] Social History Date Type Detail Facility Start: 10-14-2023 End: 11-22-2023 Tobacco smoking status NHIS Never smoked tobacco (finding) [facility] Start: 1955 Sex Assigned At Male F [facility] Tobacco smoking status Ex-smoker (finding ) [facility] Tobacco smoking status Never [facility] Start: 11-29-2023 Sex Assigned At Male F [facility] Tobacco smoking stat NHIS Tobacco smoking consumption unknown [facility] Start: 1955 Sex assigned at Not on file [facility] Start: 11-29-2023 Tobacco use and exposure Smokeless tobacco non-user [facility] Start: 11-29-2023 Alcoholic beverage intake Ex-drinker (finding) [facility] Start: 11-29-2023 History of Social function [facility] Goals Date Patient Goal Desired Activity /State Functional Status Date Assessment Result Facility 11-22-2023 Functional Status N/A [facility] 10-15-2023 Functional status Patient at Baseline [facility] Work Phone: Mental Status Date Assessment Result Facility 10-15-2023 Cognitive function Cognitive Sta tus Patient at Baseline [facility] Work Phone: Clinical Notes 10-14-2023 to 11-29-2023 Fatemeh Coleman, RADHAM - 11/29/2023 1:45 PM EDTPatient Instructions Note Date & Type Note Facility 11-29-2023 History of Presen t illness Narrative Images from the original note were not included. Subjective Patient ID: Italia Allen is a 68 y.o. 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 Haven't been trimmed since last January. PCP: BALWINDER CALDERA 10/2023, A1C: ?, BS: n/a). HPI Initial patient encounter and assessment. Chief complaint: Thickened, deformed and discolored fungal toenails . Requesting nail care. Insidious onset without known injury or trauma. Chronic deformity with gradual progressive changes over multiple years. He does note some degree of pressure with footwear, acknowledges diabetic peripheral neuropathy. Complains of catching and snagging on clothing, bed sheets etc.. Denies bleeding or drainage. Self care measures are difficult, ineffective and not practical; increasing risk exposure. Family members unable to provide affective care (his spouse recently passed). There has been no specific treatment otherwise. Risk factors: Type II diabetes/IDDM. Medical comorbidities. ASA therapy. Diabetic peripheral neuropathy. Diabetic peripheral vasculopathy. Medical comorbidities. Lumbar radiculopathy with mobility, flexibility and dexterity restraints. Toenail deformity. Digital and/or shoe trauma and related complications. Medications Current Outpatient Medications: aspirin 81 MG EC tablet, Take 81 mg by mouth Daily, Disp: , Rfl: atorvastatin (Lipitor) 80 MG tablet, Take 80 mg by mouth at bedtime, Disp: , Rfl: bumetanide (Bumex) 2 MG tablet, Take 2 mg by mouth in the morning., Disp: , Rfl: carvedilol (Coreg) 25 MG tablet, Take 25 mg by mouth in the morning and 25 mg before bedtime., Disp: , Rfl: diclofenac (Voltaren) 75 MG EC tablet, Take 75 mg by mouth, Disp: , Rfl: glipiZIDE (Glucotrol) 5 MG tablet, Take 10 mg by mouth in the morning and 10 mg in the evening. Take before meals., Disp: , Rfl: insulin detemir (Levemir) 100 UNIT/ML pen, Inject 12 Units under the skin in the morning and 12 Units in the evening., Disp: , Rfl: Lantus SoloStar 100 UNIT/ML pen, 1 (one) time each day at the same time, Disp: , Rfl: lisinopril 40 MG tablet, Take 40 mg by mouth in the morning., Disp: , Rfl: nitroglycerin (Nitrostat) 0.4 MG SL tablet, Place 0.4 mg under the tongue, Disp: , Rfl: prasugrel (Effient) 10 MG tablet, Take 10 mg by mouth in the morning., Disp: , Rfl: Allergies Patient has no known allergies. Past Surgical History History reviewed. No pertinent surgical history. Family History No family history on file. Objective General assessment: Alert and oriented. Pleasant disposition. Vascular: DP faintly palpable bilateral. PT faintly palpable bilateral. CFT: 3 seconds/digit. Gradient temperature: Warm-cool bilateral. Symmetrical, mild pitting edema bilateral ankles and dorsum of both feet. Neurologic: Tactile and light touch sensation is compromised in diminished over the digital and forefoot areas. 5.07 monofilament: Unable to localize over the digital and forefoot areas. Intact localization over the heel and ankle areas bilateral. Vibratory sensation absent at the MTP joint. Dermatologic: Intact. Skin turgor is fair. Hair growth is sparse. Web space areas are clean, dry, non-inflamed. All digits: None are spared: Toenail dystrophy, thickening, elongation, discoloration, mild clubbing, subtotal detachment, periungual hyperkeratosis, without drainage. Bilateral great toes: Pincer toenail deformity. Total with debris: Several digits. Unremarkable for ulceration or open wounds. Mild non-inflamed xerosis bilateral. Orthopedic: Range of motion: Functional but limited ankle and subtalar joint range of motion. Functional 1st MTP joint range of motion. Lesion pattern: No forefoot or digital discrete keratotic lesions are noted. Radiology: Assessment/Plan Chronic, stable onychodystrophy/mycosis multiple digits. Type II diabetes. Diabetic peripheral vasculopathy (Q8). Diabetic peripheral neuropathy (Q9). Herniated lumbar disc (age 17); chronic radiculopathy. Plan: Conservative and palliative care measures are mutually agreed upon, understood and indicated. Patient expresses no interest in oral therapy; nor is it recommended. Topical care measures are difficult and not practical for him. Diabetic education and assessment. Procedure: Toenail debridement: Aseptic technique: Hand and power instrumentation: Onychodebridement in length and thickness, with curettage of any cryptotic margins, all periungual debris; providing effective symptom and pressure relief; reducing shoe and digital trauma; reducing risk of skin breakdown, vasculopathic and/or neuropathic ulceration and any related complications. This note was created with the assistance of a speech recognition program. While intending to generate a timely document that accurately reflects the content of the visit, no guarantee can be provided that every grammatical or spelling mistake has been or will be identified or corrected. Thank you for your understanding. Fatemeh Coleman DPM documented in this encounter [place] [address]-10-2024 Instructions Fatemeh Coleman DPM - 11/29/2023 1:45 PM EDT As noted documented in this encounter [facility] 10-15-2023 Discharge summary Note Date/Time October 15, 2023 6:18pm [place] [address] Discharge Summary Signed Patient: Italia Allen MR#: [id number] : 1955 Acct:[id number] Age/Sex: 68 / M Adm Date: 4 Loc: Room: [address] [place] [address]: Yovanny Rivera MD Copies to: [...] II, HTN, obesity, HFpEF who [facility] the [facility] with complaints of deep pain [...] recommended for transfer to tertiary care facility ([facility] under Dr. Galdamez) for likely CABG. Patient [...] % (Auto) 74.1, Lymph % (Auto) 11.9, Dolores % (Auto) 9.3, Eos % (Auto) 3.7, Baso % (Auto) 1.0, Nucleat RBC Rel Count 0.1, Neut # (Auto) 7.3, Lymph # (Auto) 1.2, Dolores # (Auto) 0.9 H, Eos # (Auto) [...] signed by Yovanny Rivera MD> 10/15/23 1828 [facility] Work Phone: 1(779) 224-988008-26-2024 Progress note Author Ann Plata [facility] October 15, 2023 12:58pm Note Date/Time October 15, 2023 12 :57pm [facility] [address] [place] [address] Cardiology Progress Note Signed Patient: Italia Allen MR#: [id number] : 1955 Acct:[id number] Age/Sex: 68 / M Adm Date: 4 Loc: Room: [address] [place] [address] Type: ADM IN Attending Dr: Yovanny Rivera [...] MPV Neut % (Auto) Lymph % (Auto) Dolores % (Auto) Eos % (Auto) Baso % (Auto) Nucleat RBC Rel Count Neut # (Auto) Lymph # (Auto) Dolores # (Auto) Eos # (Auto) Baso # [...] % (Auto) 74.1 Lymph % (Auto) 11.9 Dolores % (Auto) 9.3 Eos % (Auto) 3.7 Baso % (Auto) 1.0 Nucleat RBC Rel Count 0.1 Neut # (Auto) 7.3 Lymph # (Auto) 1.2 Dolores # (Auto) 0.9 H Eos # (Auto) [...] MPV Neut % (Auto) Lymph % (Auto) Dolores % (Auto) Eos % (Auto) Baso % (Auto) Nucleat RBC Rel Count Neut # (Auto) Lymph # (Auto) Dolores # (Auto) Eos # (Auto) Baso # [...] signed by MD Ann Plata> 10/15/23 1258 [facility] Work Phone: 1(902) 725-857408-26-2024 [facility] History and physical note Author Alondra Gonzales [facility] October 14, 2023 3:57pm Note Date/Time October 14, 2023 9: 54am [facility] [address] [place] [address] Hospitalist H&P Signed Patient: Italia Allen MR#: [id number] : 1955 Acct:[id number] Age/Sex: 68 / M Adm Date: 4 Loc: Room: [address] [place] [address] Type: ADM IN Attending Dr: Alondra Gonzales [...] He was brought as a transfer from [facility] ED. As per ED note at [facility],patient presented to the ED at [facility] with chest pain, described as deep pain [...] or diaphoresis. He showed activity ED at [facility] with oxygen saturation of 70% he was noticed to have bilateral lower extremity edema and he was started on BiPAP as well as was given IV Lopressor 1 dose and was started on heparin drip. His troponin wasuptrending EKG showed sinus tachycardia with no ischemic changes as per [place] records(report not actual tracing). Labs: CBC showed [...] done during my encounter with the pt [facility] Medical History Biceps muscle tear Cholecystectomy planned [...] 4 Documented By: Alondra Gonzales MD 10/14/23 0918 Signed By: <Electronically signed by Alondra Gonzales MD> 10/14/23 3958 [facility] Work Phone: 1(720) 450-143508-25-2024 Consult note Author Ann Plata [facility] October 14, 2023 2:55pm Note Date/Time October 14, 2023 2: 51pm [facility] [address] [place] [address] Cardiology Consult Note Signed Patient: Italia Allen MR#: [id number] : 1955 Acct:[id number] Age/Sex: 68 / M Adm Date: 4 Loc: Room: 8D4049-7 Type: ADM IN Attending Dr: Alondra Gonzales MD Copies to: NON STAFF MD Ann Gordillo MD~ Cardiology HPI History of Present Illness Consult Date: 10/14/23 Reason for Consult: Cardiac consultation requested for evaluation for shortness of breath chest heaviness and acute coronary syndrome HPI: Mr. Allen is a 68 year old male who denies prior cardiac history presented to [facility] emergency room complaining of increasing shortness of breath and chest heaviness. He was evaluated and felt to have evidence of acute coronary syndrome and heart failure and arrangement was made to transfer the patient to [facility] for further care. The patient reports historyof longstanding diabetes mellitus and hypertension. He report over the last fewweeks he has been describing decreased exercise tolerance and dyspnea on exertion. He has seen his family physician on several occasion with adjustment of his medication but without improvement. Prior to presentation to the emergency room at [facility] he developed worsening shortness of breath and [...] of system is negative other mentioned above [facility] Medical History Biceps muscle tear Cholecystectomy planned [...] (Auto) 0.9 L 0.9 L (1.00-4.8) x10E3/uL Dolores # (Auto) 0.6 0.6 (0.0-0.8) x10E3/uL Eos [...] <Electronically signed by MD Ann Plata> 10/14/23 3594 [facility] Work Phone: Evaluation + Plan note Future Appointments Appointment Date:11/29/2023 03:00:00 PM Scheduled Provider: Location:[facility] Appointment Type:URO Nurse Visit Appointment Date:12/04/2023 03:00:00 PM Scheduled Provider:RADHA Grier APRN, [place] [facility] Location:[facility] Appointment Type:URO Office Visit [facility] Evaluation note* Diagnosis Onset Date Resolution Status ACS (acute coronary syndrome) acute Acute hypoxic respiratory failure acute Systolic CHF, acute on chronic acute [facility] Work Phone: Evaluation note* Diagnosis Dermatophytosis of nail- Primary Dystrophic nail Other specified disease of nail Angiopathy, diabetic (CMS/HCC) Type II or unspecified type diabetes mellitus with peripheral circulatory disorders, not stated as uncontrolled Diabetic polyneuropathy associated with type 2 diabetes mellitus (CMS/HCC) documented in [facility] Narrative No data available for this section [facility] Hospital Discharge instructions Additional Instructions Full code [facility] Work Phone: Hospital Discharge instructions No data available for this section [facility] Progress note No data available for this section [facility] Julius Chief Complaint and Reason for Visit Chief Complaint CHF, hypoxia Reason for Visit ACS (acute coronary syndrome) Acute hypoxic respiratory failure Systolic CHF, acute on chronic Advance Directives No Advanced Directives Records Found Advance Directive Response Recorded Date/ Time Advance Directives No May 30 2:08pm Summary Purpose Family History No Family History Records FoundNo Family History Records FoundNo Family History Records FoundNo Family History Records Found No data available for this section No Family History Records Found No data available for this section No Family History Records Found Additional Source Comments Care Teams (unrecognized sec tion and content) Team Status: Active Member Role Status Dates NON STAFF Primary Care Provider Active Team Status: Inactive Member Role Status Dates NON STAFF Primary Care Provider Active Start: October 14, 2023 End: October 15, 2023 Alondra Gonzales MD Admit Provider Active Start: Nick elizabeth 2023 End: October 15, 2023 Ann Plata [...] and content) DATE CREATED AUTHOR 10/19/2023 [facility] DATE CREATED AUTHOR AUTHOR'S ORGANIZ ATION 11/10/2023 [facility] DATE CREATED AUTHOR AUTHOR'S ORGANIZ ATION 11/15/2023 [facility] DATE CREATED AUTHOR AUTHOR'S ORGANIZ ATION 11/16/2023 [facility] DATE CREATED AUTHOR AUTHOR'S ORGANIZ ATION 12/01/2023 [facility] DATE CREATED AUTHOR AUTHOR'S ORGANIZ ATION 12/07/2023 [facility] Reason for Visit (unrecogniz ed section and content) Reason Comments DM Foot Care 68 yo [employer] pt presents today requesting nail debridement, 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 Haven't been trimmed since last January. PCP: [facility] 10/2023, A1C: ?, BS: n/a FOR RECORDS PERTAINING TO PATIENTS WHO ARE [...] BE BASED ON THE PRIMARY CLINICAL RECORDS. [facility]. provides no warranty or guarantee of the accuracy or completeness of information in this document.
--- NOTE | 2023-12-08 15:58 | XR_ITS ---
[facility] [place] [id number] Patient Name: ITALIA ALLEN MRN: [id number] date: 1955 Sex: M Assigned Patient Location: ER Current Patient Location: ED.MAIN Accession/Order Number: [id number] Exam Date: 12/08/2023 16:52 Report Date: 12/08/2023 18:15 At the request of: MARYAM KWOK Procedure: XR chest 1V EXAM: XR chest 1V HISTORY: sob COMPARISON: 11/19/2023 TECHNIQUE: Portable semiupright AP view of the chest. FINDINGS: There are no tubes or implants noted. The cardiomediastinal silhouette and pulmonary vasculature are within normal limits. No focal parenchymal opacities. No pneumothorax or pleural effusion. No displaced rib fractures. Osseous structures demonstrate degenerative changes. Soft tissues are grossly normal. XR/XR chest 1V IMPRESSION: No acute cardiopulmonary abnormality. Electronically authenticated by: BEVERLY AU Date: 12/08/2023 18:15
--- NOTE | 2023-12-08 15:58 | ECG_ITS ---
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
[2023-12-08 16:07] LABS: Basophils Absolute Auto 0.1 10^3/uL (0.0-0.1); Basophils Percent Auto 0.6 % (0.2-2.0); Eosinophils Absolute Auto 0.4 10^3/uL (0.0-0.7); Eosinophils Percent Auto 3.7 % (0.9-7.0); Hemoglobin 8.8 g/dL (14.0-18.0); Immature Granulocytes Abs Auto 0.05 10^3/uL (0.00-0.03); Immature Granulocytes Pct Auto 0.5 % (0.0-0.5); Lymphocytes Absolute Auto 0.9 10^3/uL (1.2-3.8); Lymphocytes Percent Auto 8.5 % (20.5-60.0); Mean Corpuscular HGB Conc 31.4 g/dL (29.9-35.2); Mean Corpuscular Hemoglobin 28.8 pg (25.9-34.0); Mean Corpuscular Volume 91.5 fL (80.0-94.0); Mean Platelet Volume 9.5 fL (9.5-13.5); Monocytes Absolute Auto 0.8 10^3/uL (0.3-0.8); Neutrophils Absolute Auto 8.7 10^3/uL (1.4-6.5); Neutrophils Percent Auto 79.7 % (43.0-75.0); Platelet Count 340 10^3/uL (150-450); Red Blood Count 3.06 10^6/uL (4.70-6.10); Red Cell Distribution Width 14.7 % (11.0-15.0); White Blood Count 10.9 10^3/uL (4.0-11.0)
[2023-12-08] MEDS: NITROGLYCERIN 0.4 MG BOTTLE SL (16:14)
[2023-12-08 16:20] LABS: INR 1.08; Prothrombin Time 11.4 sec (9.0-11.6)
[2023-12-08 16:30] LABS: Alanine Aminotransferase 32 U/L (16-63); Albumin Globulin Ratio 0.7; Albumin Level 2.4 g/dL (3.4-5.0); Alkaline Phosphatase 80 U/L (46-116); Anion Gap 13.6; Aspartate Amino Transferase 20 U/L (15-37); BUN Creatinine Ratio 19.8; Bilirubin Total 0.3 mg/dL (0.2-1.0); Calcium 8.2 mg/dL (8.5-10.1); Carbon Dioxide 24.1 mmol/L (21.0-32.0); Chloride 108 mmol/L (98-107); Estimated GFR (African America 36 (>=60 mL/min/1.73m^2); Estimated GFR (Non-African Ame 30 (>=60 mL/min/1.73m^2); Globulin 3.5 g/dL; Glucose 248 mg/dL (74-106); Potassium 3.7 mmol/L (3.5-5.1); Sodium 142 mmol/L (136-145); Total Protein 5.9 g/dL (6.4-8.2)
[2023-12-08] MEDS: FUROSEMIDE 40 MG/4 ML VIAL IVP ×2 (16:43→21:22)
--- NOTE | 2023-12-08 17:08 | ED_ITS ---
HPI - SOB/Dyspnea General Chief Complaint: Shortness of Breath/Dyspnea Stated Complaint: DIFF BREATHING Time Seen by Provider: 12/08/23 15:57 Source: patient Mode of arrival: ambulance Limitations: no limitations History of Present Illness HPI Narrative: The patient presented to us with history of coronary artery disease s/p stent 2 months ago, with a progressively getting worse shortness of breath associated with bilateral leg edema that getting up to the level of his upper thigh, the patient mentioned that he has been having shortness of breath on exertion and mild cough that is productive Upon arrival to the ER the patient mentioned having some chest pain that is ache-like not associated with any fever chills or any nausea or vomiting but sometimes associated with a cough and he does not take it similar to the pain that he had when he had a stent placed Related Data Home Medications ?Medication ?Instructions ?Recorded ?Confirmed glipizide 10 mg tablet 10 mg PO BID 10/13/23 11/19/23 insulin detemir U-100 100 unit/mL 12 unit subcut BID 10/13/23 11/19/23 (3 mL) subcutaneous pen (Levemir FlexPen) insulin glargine 100 unit/mL (3 60 unit subcut DAILY 10/13/23 11/19/23 mL) subcutaneous pen (Lantus Solostar U-100 Insulin) lisinopril 40 mg tablet 40 mg PO DAILY 10/13/23 11/19/23 aspirin 81 mg chewable tablet 81 mg PO DAILY 11/19/23 11/19/23 (Aspirin Childrens) atorvastatin 80 mg tablet 80 mg PO DAILY 11/19/23 11/19/23 bumetanide 2 mg tablet 4 mg PO DAILY 11/19/23 11/19/23 carvedilol 25 mg tablet 25 mg PO DAILY 11/19/23 11/19/23 nitroglycerin 0.4 mg sublingual 0.4 mg sublingual Q5M PRN chest 11/19/23 11/19/23 tablet pain prasugrel 10 mg tablet 10 mg PO DAILY 11/19/23 11/19/23 sertraline 50 mg tablet 25 mg PO DAILY 11/19/23 11/19/23 Previous Rx's ?Medication ?Instructions ?Recorded isosorbide mononitrate 30 mg 30 mg PO DAILY #14 tabs 11/19/23 tablet,extended release 24 hr Allergies Allergy/AdvReac Type Severity Reaction Status Date / Time No Known Drug Allergies Allergy Verified 10/13/23 18:14 Review of Systems ROS Status of ROS 10 or more systems reviewed and unremark able except as noted in history and below [facility] Social History Little interest or pleasure in doing things: not at all Feeling down, depressed, or hopeless: not at all Exam Narrative Exam Narrative: Nurses notes and vital signs reviewed and patient is not hypoxic. Bilateral leg: Bilateral leg examination shows extensive edema that is 2+ up to the level of the posterior thigh proximally and no vascular injury detected General: Well-appearing and in no apparent distress. Skin: Warm, dry, no pallor noted. No rash. Head: Normocephalic, atraumatic. Neck: Supple, non-tender. Eye: Pupils are equal, round and EOMI. No scleral icterus. Ears, Nose, Mouth, and Throat: TM are clear, no nasal mucosal hypertrophy. Or al mucosa is moist, no posterior oropharynx erythema, uvula is mid-line Cardiovascular: Regular Rate and Rhythm without murmur, gallop or rub. Respiratory: The patient is not in any distress while sitting he have crackles heard bilaterally in both lung mcguire Lungs are clear to auscultation, no wheezing, rales or rhonchi Chest Wall: no tenderness Back: No midline thoracic or lumbar vertebral tenderness. No CVA tenderness GI: Abdomen is soft, non-distended. Normal bowel sounds. No masses appreciated. No tenderness to palpation. No rebound, guarding, or rigidity noted. Neurological: A&O x4. No cranial nerve dysfunction observed. No truncal ataxia. Moves all extremities. Sensation intact. Psychiatric: Cooperative and interactive. Normal mood and affect. Constitutional Vital Signs, click to edit/add: Last Vital Signs Temp 98.3 F 12/08/23 15:50 Pulse 86 12/08/23 15:50 Resp 28 H 12/08/23 15:50 BP 117/67 12/08/23 16:43 Pulse Ox 85 L 12/08/23 16:06 O2 Del Method Room Air 12/08/23 16:06 O2 Flow Rate 4 12/08/23 16:06 Course Vital Signs Vital signs: Vital Signs Temperature 98.3 F 12/08/23 15:50 Pulse Rate 86 12/08/23 15:50 Respiratory Rate 28 H 12/08/23 15:50 Blood Pressure 163/66 H 12/08/23 15:50 Pulse Oximetry 97 12/08/23 15:50 Oxygen Delivery Method Nasal Cannula 12/08/23 15:50 Oxygen Delivery Flow Rate 4 12/08/23 15:50 Temperature 98.3 F 12/08/23 15:50 Pulse Rate 86 12/08/23 15:50 Respiratory Rate 28 H 12/08/23 15:50 Blood Pressure 117/67 12/08/23 16:43 Pulse Oximetry 85 L 12/08/23 16:06 Oxygen Delivery Method Room Air 12/08/23 16:06 Oxygen Delivery Flow Rate 4 12/08/23 16:06 MDM - SOB/Dyspnea MDM Narrative Medical decision making narrative: The patient EKG showing sinus rhythm with no changes compared to the last EKG with T wave inversion in lead to 3 and aVF and V5 and V6 and those changes were seen in previous EKG The patient CBC chemistry shows no elevated troponin but the patient have elevated BNP around 3000 Patient was started on Lasix 40 mg IV The patient troponin repeated twice was negative The patient presented to us with acute congestive heart failure and fluid overload Chest x-ray and prelim reading shows a pulmonary edema The patient case was discussed with Dr. Hernandez and he agreed to admit the patient for further diuresis Lab Data Labs: Lab Results 12/08/23 12/08/23 Range/Units 16:00 17:04 WBC 10.9 (4.0-11.0) 10^3/uL RBC 3.06 L (4.70-6.10) 10^6/uL Hgb 8.8 L (14.0-18.0) g/dL Hct 28.0 L (42.0-54.0) % MCV 91.5 (80.0-94.0) fL MCH 28.8 (25.9-34.0) pg MCHC 31.4 (29.9-35.2) g/dL RDW 14.7 (11.0-15.0) % Plt Count 340 (150-450) 10^3/uL MPV 9.5 (9.5-13.5) fL Neut % (Auto) 79.7 H (43.0-75.0) % Lymph % (Auto) 8.5 L (20.5-60.0) % [place] % (Auto) 7.0 (1.7-12.0) % Eos % (Auto) 3.7 (0.9-7.0) % Baso % (Auto) 0.6 (0.2-2.0) % Neut # (Auto) 8.7 H (1.4-6.5) 10^3/uL Lymph # (Auto) 0.9 L (1.2-3.8) 10^3/uL [place]eth # (Auto) 0.8 (0.3-0.8) 10^3/uL Eos # (Auto) 0.4 (0.0-0.7) 10^3/uL Baso # (Auto) 0.1 (0.0-0.1) 10^3/uL Abs Immat Gran (auto) 0.05 H (0.00-0.03) 10^3/uL Imm/Tot Granulo (auto) 0.5 (0.0-0.5) % PT 11.4 (9.0-11.6) sec INR 1.08 Sodium 142 (136-145) mmol/L Potassium 3.7 (3.5-5.1) mmol/L Chloride 108 H (98-107) mmol/L Carbon Dioxide 24.1 (21.0-32.0) mmol/L Anion Gap 13.6 BUN 44.0 H (7.0-18.0) mg/dL Creatinine 2.22 H (0.70-1.30) mg/dL Est GFR ( Amer) 36 L (>=60 mL/min/1.73m^2) Est GFR (Non-Af Amer) 30 L (>=60 mL/min/1.73m^2) BUN/Creatinine Ratio 19.8 Glucose 248 H (74-106) mg/dL Calcium 8.2 L (8.5-10.1) mg/dL Total Bilirubin 0.3 (0.2-1.0) mg/dL AST 20 (15-37) U/L ALT 32 (16-63) U/L Alkaline Phosphatase 80 (46-116) U/L Troponin I High Sens 25.0 34.2 (4.0-76.1) pg/mL NT-Pro-B Natriuret Pep 3377.0 H* (<=900.0) pg/mL Total Protein 5.9 L (6.4-8.2) g/dL Albumin 2.4 L (3.4-5.0) g/dL Globulin 3.5 g/dL Albumin/Globulin Ratio 0.7 Discharge Plan Discharge Chief Complaint: Shortness of Breath/Dyspnea Clinical Impression: Acute CHF (congestive heart failure), Fluid overload, Hypoxemia Patient Disposition: Admitted As Inpatient Time of Disposition Decision: 17:44
[2023-12-08 17:33] LABS: Troponin I High Sensitivity 34.2 pg/mL (4.0-76.1)
--- OUTSIDE RECORDS SUMMARY | 2023-12-08 19:58 | XMS_ITS | CCD ---
Author Organization [facility] Care Team Providers Care Recruitment Officer Name Role Phone NON STAFF Primary Care Provider UnavailMD Alondra Rodriguez Admit Provider MD Ann Plata Other Provider MD Yovanny Rivera Attending Provider Alondra Gonzales Admitting Unavailable NON STAFF Primary Care Unavailable Yovanny Rivera Attending Unavailab Ann Zamarripa Consulting Unavailable ANN PLATA Attending Unavailable ANN PLATA Referring Unavailable JASPREET DAVID Admitting Unavailable NISSA BNEÍTEZ Attending Unavailable LORIN BUSH Consulting Unavailable CARL WILEY Attending Unavailable INDERJIT COOLEY Referring Unavailable GREGOR VILLASEÑOR Primary Care Physician [phone] FATEMEH COLEMAN Attending Unavailable Unavailable Primary Care Provider UnavailMarine Willoughby Attending Unavailable Marine Grier Attending Unavailable Marine Grier Attending Unavailable Allergies Allergy Classification Reported Allergen(s) Allergy Type Date of Onset Reaction(s) Facility (1 source) No Known Medication Allergies; Translations: [No Known Medication Allergies] Propensity to adverse reactions (disorder) 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; Translations: [halfway (current) use of insulin (Multi)] Onset: 4 Episodic Other circulatory disease (2 sources) Other disorders of arteries, arterioles and capillaries in diseases classified elsewhere; Translations: [Other disorders of arteries, arterioles and capillaries in diseases classified elsewhere ([facility])] Onset: 4 Chronic Other lower respiratory disease [...] disease, unspecified; Translations: [Peripheral vascular disease, unspecified ([facility])] Onset: 4 Chronic Residual codes; unclassified (2 [...] for choosing us for your care. Normal [facility] ECG 12-LEADon 11-13-2023 ECG 12-LEAD Ventricular Rate 72 Atrial Rate 72 P-R Interval 188 QRS Duration 96 Q-T Interval 398 QTC Calculation(Bazett) 435 P Pachuta -13 R Pachuta 9 T Pachuta 36 QRS Count 12 Q Onset 216 P Onset 122 P Offset 163 T Offset 415 QTC Fredericia 423 Diagnosis Normal sinus rhythm Normal ECG When compared with ECG of 16-OCT-2023 08:50, No significant change was found Confirmed by Mere Urban ([id number]) on 11/14/2023 6:48:02 PM Normal [facility] CBC panel Auto (Bld)on 10-23 Erythrocyte distribution width (RBC) [Ratio] 15.0 % High 11.5-14.5 [facility] Comment on above: Performed By: #### 5 8077-9 #### ERICA Tam ([id number]) [facility] ([facility]) [address] [place] [address] 12267 Hematocrit (Bld) [Volume fraction] 36.3 % Low 41.0-52.0 [facility] Comment on above: Performed By: #### 5 8077-9 #### ERICA Tam ([id number]) [facility] ([facility]) [id number] [place] [address] 08454 Hemoglobin (Bld) [Mass/Vol] 11.4 g/dL Low 13.5-17.5 [facility] Comment on above: Performed By: #### 5 8077-9 #### ERICA Tam ([id number]) [facility] ([facility]) [address] [place] [address] 37055 MCH (RBC) [Entitic mass] 29.1 pg Normal 26.0-34.0 [facility] Comment on above: Performed By: #### 5 8077-9 #### ERICA Tam ([id number]) [facility] ([facility]) [address] [place] [address] 10646 MCHC (RBC) [Mass/Vol] 31.4 g/dL Low 32.0-36.0 [facility] Comment on above: Performed By: #### 5 8077-9 #### ERICA Tam ([id number]) [facility] ([facility]) [address] [place] [address] 24883 MCV (RBC) [Entitic vol] 93 fL Normal 80-100 [facility] Comment on above: Performed By: #### 5 8077-9 #### ERICA Tam ([id number]) [facility] ([facility]) [address] [place] [address] 01896 Nucleated RBC/100 WBC (Bld) [Ratio] 0.0 /100 WBCs Normal 0.0-0.0 [facility] Comment on above: Performed By: #### 5 8077-9 #### ERICA Tam ([id number]) [facility] ([facility]) [address] [place] [address] 80459 Platelets (Bld) [#/Vol] 313 x10*3/uL Normal 150-450 [facility] Comment on above: Performed By: #### 5 8077-9 #### ERICA Tam ([id number]) [facility] ([facility]) [address] [place] [address] 81919 RBC (Bld) [#/Vol] 3.92 x10*6/uL Low 4.50-5.90 [facility] Comment on above: Performed By: #### 5 8077-9 #### ERICA Tam ([id number]) [facility] ([facility]) [address] [place] [address] WBC (Bld) [#/Vol] 8.9 x10*3/uL Normal 4.4-11.3 [facility] Comment on above: Performed By: #### 5 8077-9 #### ERICA Tam ([id number]) [facility] ([facility]) [address] [place] [address] 76123 Glucose Test strip manual (B ld) [Mass/Vol]on 10-24-2023 Glucose [Mass/Vol] 203 mg/dL High 74-99 [facility] Comment on above: Performed By: #### 5 8077-9 #### ERICA Tam ([id number]) [facility] ([facility]) [address] [place] [address] 27145 Renal function 2000 panelon 10-24-2023 Albumin BCP dye [Mass/Vol] 3.2 g/dL Low 3.4-5.0 [facility] Comment on above: Performed By: #### 5 8077-9 #### ERICA Tam ([id number]) [facility] ([facility]) [address] [place] [address] 62671 Anion gap [Moles/Vol] 12 mmol/L Normal 10-20 [facility] Comment on above: Performed By: #### 5 8077-9 #### ERICA Tam ([id number]) [facility] ([facility]) [address] [place] [address] 05926 Calcium [Mass/Vol] 8.4 mg/dL Low 8.6-10.6 [facility] Comment on above: Performed By: #### 5 8077-9 #### ERICA Tam ([id number]) [facility] ([facility]) [address] [place] [address] 51541 Chloride [Moles/Vol] 105 mmol/L Normal 98-107 [facility] Comment on above: Performed By: #### 5 8077-9 #### ERICA Tam ([id number]) [facility] ([facility]) [address] [place] [address] CO2 [Moles/Vol] 24 mmol/L Normal 21-32 [facility] Comment on above: Performed By: #### 5 8077-9 #### ERICA Tam ([id number]) [facility] ([facility]) [address] [place] [address] Creatinine [Mass/Vol] 1.72 mg/dL High 0.50-1.30 [facility] Comment on above: Performed By: #### 5 8077-9 #### ERICA Tam ([id number]) [facility] ([facility]) [address] [place] [address] 69868 Glomerular filtration rate/1.73 sq M.predicted 42 mL/min/1.73m*2 Low >60 [facility] Comment on above: Result Comment: Calc ulations of estimated GFR are performed using the 2020 CKD-EPI Study Refit equation without the race variable for the IDMS-Traceable creatinine methods. https://jasn.asnjournals.org/content//ASN.80948 12469 Performed By: #### 5 8077-9 #### ERICA Tam ([id number]) [facility] ([facility]) [address] [place] [address] Glucose [Mass/Vol] 184 mg/dL High 74-99 [facility] Comment on above: Performed By: #### 5 8077-9 #### ERICA Tam ([id number]) [facility] ([facility]) [address] [place] [address] Phosphate [Mass/Vol] 3.9 mg/dL Normal 2.5-4.9 [facility] Comment on above: Result Comment: The performance characteristics of phosphorus testing in heparinized plasma have been validated by the individual laboratory site where testing is performed. Testing on heparinized plasma is not approved by the FDA; however, such approval is not necessary. Performed By: #### 5 8077-9 #### ERICA Tam ([id number]) [facility] ([facility]) [address] [place] [address] Potassium [Moles/Vol] 4.1 mmol/L Normal 3.5-5.3 [facility] Comment on above: Performed By: #### 5 8077-9 #### ERICA MCDONALD L ([id number]) [facility] ([facility]) [address] [place] [address] 24691 Sodium [Moles/Vol] 137 mmol/L Normal 136-145 [facility] Comment on above: Performed By: #### 5 8077-9 #### ERICA MCDONALD L ([id number]) [facility] ([facility]) [address] [place] [address] 79919 Urea nitrogen [Mass/Vol] 38 mg/dL [facility] 6-23 [facility] Comment on above: Performed By: #### 5 8077-9 #### ERICA MCDONALD L ([id number]) [facility] ([facility]) [address] [place] [address] 94062 Activated clotting timeon ACT Coag (Bld) [address] Comment on above: Result Comment: Targ et ACT range will vary based on the patient population, clinical status, and surgical intervention occurring. Performed By: #### 5 8077-9 #### ERICA MCDONALD L ([id number]) [facility] ([facility]) [address] [place] [address] 74234 ACT Coag (Bld) [address] Comment on above: Result Comment: Targ et ACT range will vary based on the patient population, clinical status, and surgical intervention occurring. Performed By: #### 5 8077-9 #### ERICA MCDONALD L ([id number]) [facility] ([facility]) [address] [place] [address] 62302 ACT Coag (Bld) [address] Comment on above: Result Comment: Targ et ACT range will vary based on the patient population, clinical status, and surgical intervention occurring. Performed By: #### 5 8077-9 #### ERIAC Tam ([id number]) [facility] ([facility]) [address] [place] [address] 99299 CARDIAC CATHETERIZATION PROC Tevin 10-23-2023 CARDIAC CATHETERIZATION PROCEDURE [facility], [employer], [address] [place], [place] [address] Cardiovascular Catheterization Report Patient Name: ITALIA ALLEN Performing Physician: [id number] Wiley MD Study Date: 10/23/2023 Verifying Physician: Dior Wiley MD MRN/PID: [id number] [address] Reporter/Co-Scrub: Ordering Provider: [id number] INDERJIT COOLEY Date of /Age: 6 1955 / [address] Reporter: Gender: M Fellow: [id number] Inderjit Cooley DM Admit Date: Fellow: Abdoulaye [...] dysfunction. Heart failure. Recent myocardial infarction. Recent [place]. Medical History: Stress test performed: No. CTA performed: No. [facility] accessed: No. LVEF Assessed: Yes. LVEF = [...] worsening dyspnea. He was subsequently transferred to [facility] for further workup. 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 Transthoracic echocardiogram demonstrated an LVEF of 45 to 50%. He was then transferred to [facility] for CABG evaluation. Sadly, his about [...] was calcified. 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 Coronary Interventions: After infiltration with 2% Lidocaine, the right was cannulated with a modified Seldinger technique with ultrasound guidance. Subsequently a 6 [place] sheath was placed antegrade in the right. A 6 [place] EBU 3.5 guide catheter was advanced over [...] rodrigo. Post-stent intravascular ultrasound assessment with the [place] catheter was performed. IVUS demonstrated an [...] 4 pa (more content not included)... Normal [facility] CBC panel Auto (Bld)on 10-22 Erythrocyte distribution width (RBC) [Ratio] 14.6 % High 11.5-14.5 [facility] Comment on above: Performed By: #### 7 77-3 #### ERICA Tam ([id number]) [facility] ([facility]) [address] [place] [address] 88681 Hematocrit (Bld) [Volume fraction] 37.2 % Low 41.0-52.0 [facility] Comment on above: Performed By: #### 7 77-3 #### ERICA MCDONALD L ([id number]) [facility] ([facility]) [address] [place] [address] 15330 Hemoglobin (Bld) [Mass/Vol] 11.2 g/dL Low 13.5-17.5 [facility] Comment on above: Performed By: #### 7 77-3 #### ERICA MCDONALD L ([id number]) [facility] ([facility]) [address] [place] [address] 91865 MCH (RBC) [Entitic mass] 27.9 pg Normal 26.0-34.0 [facility] Comment on above: Performed By: #### 7 77-3 #### ERICA MCDONALD L ([id number]) [facility] ([facility]) [address] [place] [address] MCHC (RBC) [Mass/Vol] 30.1 g/dL Low 32.0-36.0 [facility] Comment on above: Performed By: #### 7 77-3 #### ERICA Tam ([id number]) [facility] ([facility]) [address] [place] [address] 71597 MCV (RBC) [Entitic vol] 93 fL Normal 80-100 [facility] Comment on above: Performed By: #### 7 77-3 #### ERICA Tam ([id number]) [facility] ([facility]) [address] [place] [address] 48146 Nucleated RBC/100 WBC (Bld) [Ratio] 0.0 /100 WBCs Normal 0.0-0.0 [facility] Comment on above: Performed By: #### 7 77-3 #### ERICA Tam ([id number]) [facility] ([facility]) [address] [place] [address] 95249 Platelets (Bld) [#/Vol] 334 x10*3/uL Normal 150-450 [facility] Comment on above: Performed By: #### 7 77-3 #### ERICA Tam ([id number]) [facility] ([facility]) [address] [place] [address] 78343 RBC (Bld) [#/Vol] 4.01 x10*6/uL Low 4.50-5.90 [facility] Comment on above: Performed By: #### 7 77-3 #### ERICA Tam ([id number]) [facility] ([facility]) [address] [place] [address] 86753 WBC (Bld) [#/Vol] 9.6 x10*3/uL Normal 4.4-11.3 [facility] Comment on above: Performed By: #### 7 77-3 #### ERICA Tam ([id number]) [facility] ([facility]) [address] [place] [address] 85633 Glucose Test strip manual (B ld) [Mass/Vol]on 10-23-2023 Glucose [Mass/Vol] 238 mg/dL High 74-99 [facility] Comment on above: Performed By: #### 5 8077-9 #### ERICA Tam ([id number]) [facility] ([facility]) [address] [place] [address] Glucose [Mass/Vol] 96 mg/dL Normal 74-99 [facility] Comment on above: Performed By: #### 7 77-3 #### ERICA Tam ([id number]) [facility] ([facility]) [address] [place] [address] Glucose [Mass/Vol] 101 mg/dL High 74-99 [facility] Comment on above: Performed By: #### 7 77-3 #### ERICA Tam ([id number]) [facility] ([facility]) [address] [place] [address] Glucose [Mass/Vol] 96 mg/dL Normal 74-99 [facility] Comment on above: Performed By: #### 7 77-3 #### ERICA Tam ([id number]) [facility] ([facility]) [address] [place] [address] 04640 Renal function 2000 panelon 10-23-2023 Albumin BCP dye [Mass/Vol] 3.2 g/dL Low 3.4-5.0 [facility] Comment on above: Performed By: #### 7 77-3 #### ERICA Tam ([id number]) [facility] ([facility]) [address] [place] [address] Anion gap [Moles/Vol] 13 mmol/L Normal 10-20 [facility] Comment on above: Performed By: #### 7 77-3 #### ERICA Tam ([id number]) [facility] ([facility]) [address] [place] [address] Calcium [Mass/Vol] 8.5 mg/dL Low 8.6-10.6 [facility] Comment on above: Performed By: #### 7 77-3 #### ERICA Tam ([id number]) [facility] ([facility]) [address] [place] [address] Chloride [Moles/Vol] 103 mmol/L Normal 98-107 [facility] Comment on above: Performed By: #### 7 77-3 #### ERICA ARREOLATZER L ([id number]) [facility] ([facility]) [address] [place] [address] CO2 [Moles/Vol] 25 mmol/L Normal 21-32 [facility] Comment on above: Performed By: #### 7 77-3 #### ERICA RESTREPOMOTZER L ([id number]) [facility] ([facility]) [address] [place] [address] Creatinine [Mass/Vol] 1.77 mg/dL High 0.50-1.30 [facility] Comment on above: Performed By: #### 7 77-3 #### ERICA HIGGINSER L ([id number]) [facility] ([facility]) [address] [place] [address] 87399 Glomerular filtration rate/1.73 sq M.predicted 41 mL/min/1.73m*2 Low >60 [facility] Comment on above: Result Comment: Calc ulations of estimated GFR are performed using the 2020 CKD-EPI Study Refit equation without the race variable for the IDMS-Traceable creatinine methods. https://jasn.asnjournals.org/content/early//ASN.40463 84255 Performed By: #### 7 77-3 #### ERICA RESTREPOMOTZER L ([id number]) [facility] ([facility]) [address] [place] [address] Glucose [Mass/Vol] 99 mg/dL Normal 74-99 [facility] Comment on above: Performed By: #### 7 77-3 #### ERICA RESTREPOMOTZER L ([id number]) [facility] ([facility]) [address] [place] [address] Phosphate [Mass/Vol] 4.9 mg/dL Normal 2.5-4.9 [facility] Comment on above: Result Comment: MODE [...] By: #### 7 77-3 #### ERICA Tam ([id number]) [facility] ([facility]) [address] [place] [address] 09724 Potassium [Moles/Vol] 5.2 mmol/L Normal 3.5-5.3 [facility] Comment on above: Result Comment: MODE RATE HEMOLYSIS DETECTED. The result may be falsely elevated due to hemolysis or other interferents. Clinical correlation is recommended. Repeat testing may be considered. Performed By: #### 7 77-3 #### ERICA Tam ([id number]) [facility] ([facility]) [address] [place] [address] 91270 Sodium [Moles/Vol] 136 mmol/L Normal 136-145 [facility] Comment on above: Performed By: #### 7 77-3 #### ERICA Tam ([id number]) [facility] ([facility]) [address] [place] [address] 86627 Urea nitrogen [Mass/Vol] 39 mg/dL High 6-23 [facility] Comment on above: Performed By: #### 7 77-3 #### ERICA Tam ([id number]) [facility] ([facility]) [address] [place] [address] 06986 Glucose Test strip manual (B ld) [Mass/Vol]on 10-22-2023 Glucose [Mass/Vol] 246 mg/dL High 74-99 [facility] Comment on above: Performed By: #### 7 77-3 #### ERICA Tam ([id number]) [facility] ([facility]) [address] [place] [address] 27930 Glucose [Mass/Vol] 186 mg/dL High 74-99 [facility] Comment on above: Performed By: #### 7 77-3 #### ERICA Tam ([id number]) [facility] ([facility]) [address] [place] [address] Glucose [Mass/Vol] 213 mg/dL High 74-99 [facility] Comment on above: Performed By: #### 7 77-3 #### ERICA Tam ([id number]) [facility] ([facility]) [address] [place] [address] Glucose [Mass/Vol] 143 mg/dL High 74-99 [facility] Comment on above: Performed By: #### 7 77-3 #### ERICA Tam ([id number]) [facility] ([facility]) [address] [place] [address] 59424 Renal function 2000 panelon 10-22-2023 Albumin BCP dye [Mass/Vol] 3.3 g/dL Low 3.4-5.0 [facility] Comment on above: Performed By: #### 7 77-3 #### ERICA Tam ([id number]) [facility] ([facility]) [address] [place] [address] 60435 Anion gap [Moles/Vol] 14 mmol/L Normal 10-20 [facility] Comment on above: Performed By: #### 7 77-3 #### ERICA Tam ([id number]) [facility] ([facility]) [address] [place] [address] 28088 Calcium [Mass/Vol] 8.8 mg/dL Normal 8.6-10.6 [facility] Comment on above: Performed By: #### 7 77-3 #### ERICA Tam ([id number]) [facility] ([facility]) [address] [place] [address] 28527 Chloride [Moles/Vol] 101 mmol/L Normal 98-107 [facility] Comment on above: Performed By: #### 7 77-3 #### ERICA Tam ([id number]) [facility] ([facility]) [address] [place] [address] 37161 CO2 [Moles/Vol] 23 mmol/L Normal 21-32 [facility] Comment on above: Performed By: #### 7 77-3 #### ERICA Tam ([id number]) [facility] ([facility]) [address] [place] [address] Creatinine [Mass/Vol] 1.75 mg/dL High 0.50-1.30 [facility] Comment on above: Performed By: #### 7 77-3 #### ERICA Tam ([id number]) [facility] ([facility]) [address] [place] [address] Glomerular filtration rate/1.73 sq M.predicted 42 mL/min/1.73m*2 Low >60 [facility] Comment on above: Result Comment: Calc ulations of estimated GFR are performed using the 2020 CKD-EPI Study Refit equation without the race variable for the IDMS-Traceable creatinine methods. https://jasn.asnjournals.org/content/early//ASN.75506 60535 Performed By: #### 7 77-3 #### ERICA MCDONALD L ([id number]) [facility] ([facility]) [address] [place] [address] Glucose [Mass/Vol] 214 mg/dL High 74-99 [facility] Comment on above: Performed By: #### 7 77-3 #### ERICA Tam ([id number]) [facility] ([facility]) [address] [place] [address] Phosphate [Mass/Vol] 4.3 mg/dL Normal 2.5-4.9 [facility] Comment on above: Result Comment: The performance characteristics of phosphorus testing in heparinized plasma have been validated by the individual laboratory site where testing is performed. Testing on heparinized plasma is not approved by the FDA; however, such approval is not necessary. Performed By: #### 7 77-3 #### ERICA MCDONALD L (45052) [facility] ([facility]) [address] [place] [address] Potassium [Moles/Vol] 4.1 mmol/L Normal 3.5-5.3 [facility] Comment on above: Performed By: #### 7 77-3 #### ERICA Tam ([id number]) [facility] ([facility]) [address] [place] [address] 83456 Sodium [Moles/Vol] 134 mmol/L Low 136-145 [facility] Comment on above: Performed By: #### 7 77-3 #### ERICA Tam ([id number]) [facility] ([facility]) [address] [place] [address] 37679 Urea nitrogen [Mass/Vol] 38 mg/dL High 6-23 [facility] Comment on above: Performed By: #### 7 77-3 #### ERICA Tam ([id number]) [facility] ([facility]) [address] [place] [address] 92635 Glucose Test strip manual (B ld) [Mass/Vol]on 10-21-2023 Glucose [Mass/Vol] 189 mg/dL High 74-99 [facility] Comment on above: Performed By: #### 3 274-8 #### ERICA Tam ([id number]) [facility] ([facility]) [address] [place] [address] 69092 Glucose [Mass/Vol] 258 mg/dL High 7499 [facility] Comment on above: Performed By: #### 3 274-8 #### ERICA Tam ([id number]) [facility] ([facility]) [address] [place] [address] 15933 Glucose [Mass/Vol] 392 mg/dL High 74-[address] [place] [address] Comment on above: Performed By: #### 3 274-8 #### ERICA Tam ([id number]) [facility] ([facility]) [address] [place] [address] 83998 Glucose [Mass/Vol] 254 mg/dL High -[address] [place] [address] Comment on above: Performed By: #### 3 274-8 #### ERICA Tam ([id number]) [facility] ([facility]) [address] [place] [address], [place] [address] Glucose [Mass/Vol] 296 mg/dL High 74-99 [facility] Comment on above: Performed By: #### 3 274-8 #### ERICA Tam ([id number]) [facility] ([facility]) [address] [place] [address] 63768 CBC panel Auto (Bld)on 10-19 Erythrocyte distribution width (RBC) [Ratio] 14.6 % High 11.5-14.5 [facility] Comment on above: Performed By: #### 3 274-8 #### ERICA Tam ([id number]) [facility] ([facility]) [address] [place] [address] 95738 Hematocrit (Bld) [Volume fraction] 34.7 % Low 41.0-52.0 [facility] Comment on above: Performed By: #### 3 274-8 #### ERICA Tam ([id number]) [facility] ([facility]) [address] [place] [address] 09822 Hemoglobin (Bld) [Mass/Vol] 11.2 g/dL Low 13.5-17.5 [facility] Comment on above: Performed By: #### 3 274-8 #### ERICA Tam ([id number]) [facility] ([facility]) [address] [place] [address] 26947 MCH (RBC) [Entitic mass] 28.9 pg Normal 26.0-34.0 [facility] Comment on above: Performed By: #### 3 274-8 #### ERICA Tam ([id number]) [facility] ([facility]) [address] [place] [address] 33378 MCHC (RBC) [Mass/Vol] 32.3 g/dL Normal 32.0-36.0 [facility] Comment on above: Performed By: #### 3 274-8 #### ERICA Tam ([id number]) [facility] ([facility]) [address] [place] [address] 81004 MCV (RBC) [Entitic vol] 89 fL Normal 80-100 [facility] Comment on above: Performed By: #### 3 274-8 #### ERICA Tam ([id number]) [facility] ([facility]) [address] [place] [address] 34062 Nucleated RBC/100 WBC (Bld) [Ratio] 0.0 /100 WBCs Normal 0.0-0.0 [facility] Comment on above: Performed By: #### 3 274-8 #### ERICA Tam ([id number]) [facility] ([facility]) [address] [place] [address] 91910 Platelets (Bld) [#/Vol] 293 x10*3/uL Normal 150-450 [facility] Comment on above: Performed By: #### 3 274-8 #### ERICA Tam ([id number]) [facility] ([facility]) [address] [place] [address] 04370 RBC (Bld) [#/Vol] 3.88 x10*6/uL Low 4.50-5.90 [facility] Comment on above: Performed By: #### 3 274-8 #### ERICA Tam ([id number]) [facility] ([facility]) [address] [place] [address] 99531 WBC (Bld) [#/Vol] 8.6 x10*3/uL Normal 4.4-11.3 [facility] Comment on above: Performed By: #### 3 274-8 #### ERICA Tam ([id number]) [facility] ([facility]) [address] [place] [address] 75090 Glucose Test strip manual (B ld) [Mass/Vol]on 10-20-2023 Glucose [Mass/Vol] 298 mg/dL High 7499 [facility] Comment on above: Performed By: #### 3 274-8 #### ERICA Tam ([id number]) [facility] ([facility]) [address] [place] [address] 04196 Glucose [Mass/Vol] 298 mg/dL High 74-99 [facility] Comment on above: Performed By: #### 3 274-8 #### ERICA Tam ([id number]) [facility] ([facility]) [id number] [place] [address] 32149 Glucose [Mass/Vol] 294 mg/dL High -[address] [place] [address] Comment on above: Performed By: #### T HYDS #### ERICA Tam ([id number]) [facility] ([facility]) [id number] [place] [address] 03101 Glucose [Mass/Vol] 173 mg/dL High -[address] [place] [address] Comment on above: Performed By: #### T HYDS #### ERICA Tam ([id number]) [facility] ([facility]) [address] [place] [address] 36459 Glucose [Mass/Vol] 146 mg/dL High [address] [place] [address] Comment on above: Performed By: #### T HYDS #### ERICA Tam ([id number]) [facility] ([facility]) [address] [place] [address] 93336 Magnesiumon 10-20-2023 Magnesium [Mass/Vol] 1.74 mg/dL Normal 1.60-2.40 [facility] Comment on above: Performed By: #### 3 274-8 #### ERICA Tam ([id number]) [facility] ([facility]) [address] [place] [address] 05046 Renal function 2000 panelon 10-20-2023 Albumin BCP dye [Mass/Vol] 3.3 g/dL Low 3.4-5.0 [facility] Comment on above: Performed By: #### 3 274-8 #### ERICA Tam ([id number]) [facility] ([facility]) [address] [place] [address] 49754 Anion gap [Moles/Vol] 11 mmol/L Normal 10-20 [facility] Comment on above: Performed By: #### 3 274-8 #### ERICA Tam ([id number]) [facility] ([facility]) [address] [place] [address] Calcium [Mass/Vol] 8.5 mg/dL Low 8.6-10.6 [facility] Comment on above: Performed By: #### 3 274-8 #### ERICA Tam ([id number]) [facility] ([facility]) [address] [place] [address] Chloride [Moles/Vol] 102 mmol/L Normal 98-107 [facility] Comment on above: Performed By: #### 3 274-8 #### ERICA MCDONALD L ([id number]) [facility] ([facility]) [address] [place] [address] CO2 [Moles/Vol] 25 mmol/L Normal 21-32 [facility] Comment on above: Performed By: #### 3 274-8 #### ERICA Tam ([id number]) [facility] ([facility]) [address] [place] [address] Creatinine [Mass/Vol] 1.89 mg/dL High 0.50-1.30 [facility] Comment on above: Performed By: #### 3 274-8 #### ERICA MCDONALD L ([id number]) [facility] ([facility]) [address] [place] [address] 35206 Glomerular filtration rate/1.73 sq M.predicted 38 mL/min/1.73m*2 Low >60 [facility] Comment on above: Result Comment: Calc ulations of estimated GFR are performed using the 2020 CKD-EPI Study Refit equation without the race variable for the IDMS-Traceable creatinine methods. https://jasn.asnjournals.org/content//ASN.19954 45188 Performed By: #### 3 274-8 #### ERICA MCDONALD L ([id number]) [facility] ([facility]) [address] [place] [address] Glucose [Mass/Vol] 323 mg/dL High 74-99 [facility] Comment on above: Performed By: #### 3 274-8 #### ERICA Tam ([id number]) [facility] ([facility]) [address] [place] [address] 72262 Phosphate [Mass/Vol] 3.0 mg/dL Normal 2.5-4.9 [facility] Comment on above: Result Comment: The performance characteristics of phosphorus testing in heparinized plasma have been validated by the individual laboratory site where testing is performed. Testing on heparinized plasma is not approved by the FDA; however, such approval is not necessary. Performed By: #### 3 274-8 #### ERICA Tam ([id number]) [facility] ([facility]) [address] [place] [address] 82264 Potassium [Moles/Vol] 3.9 mmol/L Normal 3.5-5.3 [facility] Comment on above: Performed By: #### 3 274-8 #### ERICA Tam ([id number]) [facility] ([facility]) [address] [place] [address] 14385 Sodium [Moles/Vol] 134 mmol/L Low 136-145 [facility] Comment on above: Performed By: #### 3 274-8 #### ERICA Tam ([id number]) [facility] ([facility]) [address] [place] [address] 26530 Urea nitrogen [Mass/Vol] 31 mg/dL High 6-23 [facility] Comment on above: Performed By: #### 3 274-8 #### ERICA Tam ([id number]) [facility] ([facility]) [address] [place] [address] 07787 Glucose Test strip manual (B ld) [Mass/Vol]on 10-19-2023 Glucose [Mass/Vol] 355 mg/dL High 74-99 [facility] Comment on above: Performed By: #### T HYDS #### ERICA Tam ([id number]) [facility] ([facility]) [address] [place] [address] 03970 Glucose [Mass/Vol] 249 mg/dL High [address] [place] [address] Comment on above: Performed By: #### T HYDS #### ERICA Tam ([id number]) [facility] ([facility]) [address] [place] [address] 98858 Glucose [Mass/Vol] 274 mg/dL High [address] [place] [address] Comment on above: Performed By: #### T HYDS #### ERICA Tam ([id number]) [facility] ([facility]) [address] [place] [address] 49575 Glucose [Mass/Vol] 129 mg/dL High [address] [place] [address] Comment on above: Performed By: #### T HYDS #### ERICA Tam ([id number]) [facility] ([facility]) [address] [place] [address] 74698 Glucose [Mass/Vol] 121 mg/dL High [address] [place] [address] Comment on above: Performed By: #### T HYDS #### ERICA Tam ([id number]) [facility] ([facility]) [address] [place] [address] 43235 CBC panel Auto (Bld)on 10-17 Erythrocyte distribution width (RBC) [Ratio] 14.6 % High 11.5-14.5 [facility] Comment on above: Performed By: #### L IPIN #### ERICA Tam ([id number]) [facility] ([facility]) [address] [place] [address] 51847 Hematocrit (Bld) [Volume fraction] 34.3 % Low 41.0-52.0 [facility] Comment on above: Performed By: #### L IPIN #### ERICA Tam ([id number]) [facility] ([facility]) [address] [place] [address] 17953 Hemoglobin (Bld) [Mass/Vol] 10.7 g/dL Low 13.5-17.5 [facility] Comment on above: Performed By: #### L IPIN #### ERICA Tam ([id number]) [facility] ([facility]) [address] [place] [address] MCH (RBC) [Entitic mass] 28.7 pg Normal 26.0-34.0 [facility] Comment on above: Performed By: #### L IPIN #### ERICA Tam ([id number]) [facility] ([facility]) [id number] [place] [address] 02731 MCHC (RBC) [Mass/Vol] 31.2 g/dL Low 32.0-36.0 [facility] Comment on above: Performed By: #### L IPIN #### ERICA Tam ([id number]) [facility] ([facility]) [address] [place] [address] 19181 MCV (RBC) [Entitic vol] 92 fL Normal 80-100 [facility] Comment on above: Performed By: #### L IPIN #### ERICA Tam ([id number]) [facility] ([facility]) [address] [place] [address] 46022 Nucleated RBC/100 WBC (Bld) [Ratio] 0.0 /100 WBCs Normal 0.0-0.0 [facility] Comment on above: Performed By: #### L IPIN #### ERICA Tam ([id number]) [facility] ([facility]) [address] [place] [address] 60283 Platelets (Bld) [#/Vol] 295 x10*3/uL Normal 150-450 [facility] Comment on above: Performed By: #### L IPIN #### ERICA Tam ([id number]) [facility] ([facility]) [address] [place] [address] 31816 RBC (Bld) [#/Vol] 3.73 x10*6/uL Low 4.50-5.90 [facility] Comment on above: Performed By: #### L IPIN #### ERICA Tam ([id number]) [facility] ([facility]) [address] [place] [address] 50601 WBC (Bld) [#/Vol] 7.2 x10*3/uL Normal 4.4-11.3 [facility] Comment on above: Performed By: #### L IPIN #### ERICA Tam ([id number]) [facility] ([facility]) [address] [place] [address] 12202 Glucose Test strip manual (B ld) [Mass/Vol]on 10-18-2023 Glucose [Mass/Vol] 169 mg/dL High [address] [place] [address] Comment on above: Performed By: #### T HYDS #### ERICA Tam ([id number]) [facility] ([facility]) [address] [place] [address] 07740 Glucose [Mass/Vol] 238 mg/dL High [address] [place] [address] Comment on above: Performed By: #### L IPIN #### ERICA Tam ([id number]) [facility] ([facility]) [address] [place] [address] 47589 Glucose [Mass/Vol] 251 mg/dL High [address] [place] [address] Comment on above: Performed By: #### L IPIN #### ERICA Tam ([id number]) [facility] ([facility]) [address] [place] [address] 66011 Glucose [Mass/Vol] 191 mg/dL High [address] [place] [address] Comment on above: Performed By: #### L IPIN #### ERICA Tam ([id number]) [facility] ([facility]) [address] [place] [address] 49608 Heparin.unfractionatedon Heparin unfractionated Chromogenic method Qn (PPP) 0.4 IU/mL Normal See Comment Below for Therapeutic Ranges [facility] Comment on above: Order Comment: When [...] please refer to local Pharmacy and the [facility] Guidelines for Anticoagulation Therapy available on the [facility] intranet at: [email or web address] Performed By: #### L IPIN #### ERICA Tam ([id number]) [facility] ([facility]) [address] [place] [address] 43505 Magnesiumon 10-18-2023 Magnesium [Mass/Vol] 1.77 mg/dL Normal 1.60-2.40 [facility] Comment on above: Performed By: #### L IPIN #### ERICA Tam ([id number]) [facility] ([facility]) [address] [place] [address] 75768 Renal function 2000 panelon 10-18-2023 Albumin BCP dye [Mass/Vol] 3.3 g/dL Low 3.4-5.0 [facility] Comment on above: Performed By: #### T HYDS #### ERICA Tam ([id number]) [facility] ([facility]) [address] [place] [address] 68476 Anion gap [Moles/Vol] 12 mmol/L Normal 10-20 [facility] Comment on above: Performed By: #### T HYDS #### ERICA Tam ([id number]) [facility] ([facility]) [address] [place] [address] 69588 Calcium [Mass/Vol] 8.5 mg/dL Low 8.6-10.6 [facility] Comment on above: Performed By: #### T HYDS #### ERICA Tam ([id number]) [facility] ([facility]) [address] [place] [address] 99202 Chloride [Moles/Vol] 103 mmol/L Normal 98-107 [facility] Comment on above: Performed By: #### T HYDS #### ERICA Tma ([id number]) [facility] ([facility]) [address] [place] [address] CO2 [Moles/Vol] 26 mmol/L Normal 21-32 [facility] Comment on above: Performed By: #### T HYDS #### ERICA Tam ([id number]) [facility] ([facility]) [address] [place] [address] Creatinine [Mass/Vol] 1.58 mg/dL High 0.50-1.30 [facility] Comment on above: Performed By: #### T HYDS #### ERICA Tam ([id number]) [facility] ([facility]) [address] [place] [address] Glomerular filtration rate/1.73 sq M.predicted 47 mL/min/1.73m*2 Low >60 [facility] Comment on above: Result Comment: Calc ulations of estimated GFR are performed using the 2020 CKD-EPI Study Refit equation without the race variable for the IDMS-Traceable creatinine methods. https://jasn.asnjournals.org/content/early/ASN.31960 49070 Performed By: #### T HYDS #### ERICA Tam ([id number]) [facility] ([facility]) [address] [place] [address] Glucose [Mass/Vol] 220 mg/dL High 74-99 [facility] Comment on above: Performed By: #### T HYDS #### ERICA Tam ([id number]) [facility] ([facility]) [address] [place] [address] Phosphate [Mass/Vol] 2.8 mg/dL Normal 2.5-4.9 [facility] Comment on above: Result Comment: The performance characteristics of phosphorus testing in heparinized plasma have been validated by the individual laboratory site where testing is performed. Testing on heparinized plasma is not approved by the FDA; however, such approval is not necessary. Performed By: #### T HYDS #### ERICA Tam ([id number]) [facility] ([facility]) [address] [place] [address] 08480 Potassium [Moles/Vol] 4.1 mmol/L Normal 3.5-5.3 [facility] Comment on above: Performed By: #### T HYDS #### ERICA Tam ([id number]) [facility] ([facility]) [address] [place] [address] 74264 Sodium [Moles/Vol] 137 mmol/L Normal 136-145 [facility] Comment on above: Performed By: #### T HYDS #### ERICA Tam ([id number]) [facility] ([facility]) [address] [place] [address] 69947 Urea nitrogen [Mass/Vol] 25 mg/dL High 6-23 [facility] Comment on above: Performed By: #### T HYDS #### ERICA Tam ([id number]) [facility] ([facility]) [address] [place] [address] 95121 CBC panel Auto (Bld)on 10-16 Erythrocyte distribution width (RBC) [Ratio] 14.5 % Normal 11.5-14.5 [facility] Comment on above: Performed By: #### 2 4323-8 #### ERICA Tam ([id number]) [facility] ([facility]) [address] [place] [address] 34690 Hematocrit (Bld) [Volume fraction] 35.2 % Low 41.0-52.0 [facility] Comment on above: Performed By: #### 2 4323-8 #### ERICA Tam ([id number]) [facility] ([facility]) [address] [place] [address] 33745 Hemoglobin (Bld) [Mass/Vol] 11.1 g/dL Low 13.5-17.5 [facility] Comment on above: Performed By: #### 2 4323-8 #### ERICA Tam ([id number]) [facility] ([facility]) [address] [place] [address] 34211 MCH (RBC) [Entitic mass] 29.1 pg Normal 26.0-34.0 [facility] Comment on above: Performed By: #### 2 4323-8 #### ERICA Tam ([id number]) [facility] ([facility]) [id number] [place] [address] 66507 MCHC (RBC) [Mass/Vol] 31.5 g/dL Low 32.0-36.0 [facility] Comment on above: Performed By: #### 2 4323-8 #### ERICA Tam ([id number]) [facility] ([facility]) [address] [place] [address] 99554 MCV (RBC) [Entitic vol] 92 fL Normal 80-100 [facility] Comment on above: Performed By: #### 2 4323-8 #### ERICA Tam ([id number]) [facility] ([facility]) [address] [place] [address] 32850 Nucleated RBC/100 WBC (Bld) [Ratio] 0.0 /100 WBCs Normal 0.0-0.0 [facility] Comment on above: Performed By: #### 2 4323-8 #### ERICA Tam ([id number]) [facility] ([facility]) [address] [place] [address] 42069 Platelets (Bld) [#/Vol] 316 x10*3/uL Normal 150-450 [facility] Comment on above: Performed By: #### 2 4323-8 #### ERICA Tam ([id number]) [facility] ([facility]) [id number] [place] [address] 45089 RBC (Bld) [#/Vol] 3.82 x10*6/uL Low 4.50-5.90 [facility] Comment on above: Performed By: #### 2 4323-8 #### ERICA Tam ([id number]) [facility] ([facility]) [address] [place] [address] 14937 WBC (Bld) [#/Vol] 8.6 x10*3/uL Normal 4.4-11.3 [facility] Comment on above: Performed By: #### 2 4323-8 #### ERICA Tam ([id number]) [facility] ([facility]) [address] [place] [address] 94335 Glucose Test strip manual (B ld) [Mass/Vol]on 10-17-2023 Glucose [Mass/Vol] 217 mg/dL High [address] [place] [address] Comment on above: Performed By: #### L IPIN #### ERICA Tam ([id number]) [facility] ([facility]) [address] [place] [address] 09035 Glucose [Mass/Vol] 271 mg/dL High [address] [place] [address] Comment on above: Performed By: #### 2 4323-8 #### ERICA Tam ([id number]) [facility] ([facility]) [address] [place] [address] 80019 Glucose [Mass/Vol] 189 mg/dL High [address] [place] [address] Comment on above: Performed By: #### 2 4323-8 #### ERICA Tam ([id number]) [facility] ([facility]) [address] [place] [address] 71966 Glucose [Mass/Vol] 256 mg/dL High [address] [place] [address] Comment on above: Performed By: #### 2 4323-8 #### ERICA Tam ([id number]) [facility] ([facility]) [address] [place] [address] 97974 Glucose [Mass/Vol] 176 mg/dL High [address] [place] [address] Comment on above: Performed By: #### 1 4979-9 #### ERICA Tam ([id number]) [facility] ([facility]) [address] [place] [address] 92674 Heparin.unfractionatedon Heparin unfractionated Chromogenic method Qn (PPP) 0.3 IU/mL Normal See Comment Below for Therapeutic Ranges [facility] Comment on above: Order Comment: Obtai [...] please refer to local Pharmacy and the [facility] Guidelines for Anticoagulation Therapy available on the [facility] intranet at: [email or web address] Performed By: #### 2 4323-8 #### ERICA Tam ([id number]) [facility] ([facility]) [address] [place] [address] Heparin unfractionated Chromogenic method Qn (PPP) 0.5 IU/mL Normal See Comment Below for Therapeutic Ranges [facility] Comment on above: Order Comment: Obtai [...] please refer to local Pharmacy and the [facility] Guidelines for Anticoagulation Therapy available on the [facility] intranet at: [email or web address] Performed By: #### 2 4323-8 #### ERICA Tam ([id number]) [facility] ([facility]) [address] [place] [address] 57051 Heparin unfractionated Chromogenic method Qn (PPP) 0.2 IU/mL Normal See Comment Below for Therapeutic Ranges [facility] Comment on above: Order Comment: Prior to initiating heparin if not obtained in prior 48 hours. Nursing to release order. The APTT is no longer used for monitoring Unfractionated Heparin Therapy. For monitoring Heparin Therapy, use the Heparin Assay. Performed By: #### 1 4979-9 #### ERICA Tam ([id number]) [facility] ([facility]) [id number] [place] [address] 46072 Magnesiumon 10-17-2023 Magnesium [Mass/Vol] 1.94 mg/dL Normal 1.60-2.40 [facility] Comment on above: Performed By: #### L IPIN #### ERICA Tam ([id number]) [facility] ([facility]) [id number] [place] [address] 22538 Renal function 2000 panelon 10-17-2023 Albumin BCP dye [Mass/Vol] 3.1 g/dL Low 3.4-5.0 [facility] Comment on above: Performed By: #### L IPIN #### ERICA Tam ([id number]) [facility] ([facility]) [address] [place] [address] 94770 Anion gap [Moles/Vol] 9 mmol/L Low 10-20 [facility] Comment on above: Performed By: #### L IPIN #### ERICA Tam ([id number]) [facility] ([facility]) [address] [place] [address] 24632 Calcium [Mass/Vol] 8.2 mg/dL Low 8.6-10.6 [facility] Comment on above: Performed By: #### L IPIN #### ERICA Tam ([id number]) [facility] ([facility]) [id number] [place] [address] 93398 Chloride [Moles/Vol] 104 mmol/L Normal 98-107 [facility] Comment on above: Performed By: #### L IPIN #### ERICA Tam ([id number]) [facility] ([facility]) [address] [place] [address] 55535 CO2 [Moles/Vol] 28 mmol/L Normal 21-32 [facility] Comment on above: Performed By: #### L IPIN #### ERICA Tam ([id number]) [facility] ([facility]) [id number] [place] [address] 14971 Creatinine [Mass/Vol] 1.35 mg/dL High 0.50-1.30 [facility] Comment on above: Performed By: #### L IPIN #### ERICA Tam ([id number]) [facility] ([facility]) [id number] [place] [address] [id number] Glomerular filtration rate/1.73 sq M.predicted 57 mL/min/1.73m*2 Low >60 [facility] Comment on above: Result Comment: Calc ulations of estimated GFR are performed using the 2020 CKD-EPI Study Refit equation without the race variable for the IDMS-Traceable creatinine methods. https://jasn.asnjournals.org/content/early/ASN.23265 16941 Performed By: #### L IPIN #### ERICA Tam ([id number]) [facility] ([facility]) [id number] [place] [address] [id number] Glucose [Mass/Vol] 274 mg/dL High 74-99 [facility] Comment on above: Performed By: #### L IPIN #### ERICA Tam ([id number]) [facility] ([facility]) [address] [place] [address] 76385 Phosphate [Mass/Vol] 2.5 mg/dL Normal 2.5-4.9 [facility] Comment on above: Result Comment: The performance characteristics of phosphorus testing in heparinized plasma have been validated by the individual laboratory site where testing is performed. Testing on heparinized plasma is not approved by the FDA; however, such approval is not necessary. Performed By: #### L IPIN #### ERICA Tam ([id number]) [facility] ([facility]) [address] [place] [address] Potassium [Moles/Vol] 4.3 mmol/L Normal 3.5-5.3 [facility] Comment on above: Performed By: #### L IPIN #### ERICA Tam ([id number]) [facility] ([facility]) [address] [place] [address] 94246 Sodium [Moles/Vol] 137 mmol/L Normal 136-145 [facility] Comment on above: Performed By: #### L IPIN #### ERICA Tam ([id number]) [facility] ([facility]) [address] [place] [address] 20206 Urea nitrogen [Mass/Vol] 27 mg/dL High 6-23 [facility] Comment on above: Performed By: #### L IPIN #### ERICA Tam ([id number]) [facility] ([facility]) [address] [place] [address] 7[address]39 [facility] US ANKLE BRACHIAL INDEX (LUCIO) WITHOUT EXERCISEon 10-17-2023 [facility] US ANKLE BRACHIAL INDEX (LUCIO) WITHOUT EXERCISE [address] [address] and Vascular Lab Report [facility] US ANKLE BRACHIAL INDEX (LUCIO) WITHOUT EXERCISE Patient Name: ITALIA Alfaro Physician: [id number] Marshal Nolan MD Study Date: 10/17/2023 Ordering [id number] RU Mina Physician: CUATE MRN/PID: [id number] Technologist: Sandy Smith [facility] Technologist 2: Date of /Age: 5 1955 years Gender: M Admission Status: Inpatient Location [facility] Performed: Diagnosis/ICD: Peripheral vascular disease, unspecified-I73.9 CPT Codes: 89496 Peripheral artery LUCIO Only CONCLUSIONS: Right Lower [...] Left Brachial Pressure 155 mmHg 149 mmHg [id number] Nolan MD Final Normal [facility] US CAROTID ARTERY DUPLE X BILATERALon 10-17-2023 VAS US CAROTID ARTERY DUPLEX BILATERAL [place] [address] and Vascular Lab Report [facility] US CAROTID ARTERY DUPLEX BILATERAL Patient Name: ITALIA Alfaro Physician: Myriam Nolan MD Study Date: 10/17/2023 Ordering [id number] RU Mina Physician: CUATE MRN/PID: [id number] Technologist: Gallito HARTMANN Technologist 2: Date of /Age: 5 1955 years Gender: M Admission Status: Inpatient Location [facility] Performed: Diagnosis/ICD: Encounter for preprocedural cardiovascular examination-Z01.810 Indication: Pre-Op CABG CPT Codes: 97401 Cerebrovascular Carotid Duplex scan complete Patient History [...] cm/s Right Left ICA/CCA Ratio 0.0 1.3 12303Octavio Nolan MD Final [facility] US LOWER EXTREMITY VEIN MAPPING BILATERALon 10-17-2023 [facility] US LOWER EXTREMITY VEIN MAPPING BILATERAL [place] [address] and Vascular Lab Report [facility] US LOWER EXTREMITY VEIN MAPPING BILATERAL Patient Name: ITALIA ALLEN Angelina Physician: [id number] Nolan MD Study Date: 10/17/2023 Ordering [id number] RU Mina Physician: CUATE MRN/PID: [id number] Technologist: Gallito Marie [facility] Technologist 2: Date of /Age: 5 1955 years Gender: M Admission Status: Inpatient Location [facility] Performed: Diagnosis/ICD: Encounter for preprocedural cardiovascular examination-Z01.810 Indication: Pre-operative exam CPT Codes: 65411 Vein mapping complete Patient History CAD. CONCLUSIONS: [...] Dist Calf GSV Yes None 1.0 mm [id number] Marshal Nolan MD Final Normal [facility] CBC panel Auto (Bld)on 10-15 Erythrocyte distribution width (RBC) [Ratio] 14.4 % Normal 11.5-14.5 [facility] Comment on above: Performed By: #### 1 4979-9 #### ERICA Tam ([id number]) [facility] ([facility]) [address] [place] [address] 28908 Hematocrit (Bld) [Volume fraction] 33.4 % Low 41.0-52.0 [facility] Comment on above: Performed By: #### 1 4979-9 #### ERICA Tam ([id number]) [facility] ([facility]) [address] [place] [address] 33633 Hemoglobin (Bld) [Mass/Vol] 10.5 g/dL Low 13.5-17.5 [facility] Comment on above: Performed By: #### 1 4979-9 #### ERICA Tam ([id number]) [facility] ([facility]) [address] [place] [address] 48652 MCH (RBC) [Entitic mass] 28.5 pg Normal 26.0-34.0 [facility] Comment on above: Performed By: #### 1 4979-9 #### ERICA Tam ([id number]) [facility] ([facility]) [address] [place] [address] MCHC (RBC) [Mass/Vol] 31.4 g/dL Low 32.0-36.0 [facility] Comment on above: Performed By: #### 1 4979-9 #### ERICA Tam ([id number]) [facility] ([facility]) [address] [place] [address] 09394 MCV (RBC) [Entitic vol] 91 fL Normal 80-100 [facility] Comment on above: Performed By: #### 1 4979-9 #### ERICA Tam ([id number]) [facility] ([facility]) [address] [place] [address] 59124 Nucleated RBC/100 WBC (Bld) [Ratio] 0.0 /100 WBCs Normal 0.0-0.0 [facility] Comment on above: Performed By: #### 1 4979-9 #### ERICA Tam ([id number]) [facility] ([facility]) [address] [place] [address] 04566 Platelets (Bld) [#/Vol] 283 x10*3/uL Normal 150-450 [facility] Comment on above: Performed By: #### 1 4979-9 #### ERICA MCDONALD L ([id number]) [facility] ([facility]) [address] [place] [address] 62917 RBC (Bld) [#/Vol] 3.69 x10*6/uL Low 4.50-5.90 [facility] Comment on above: Performed By: #### 1 4979-9 #### ERICA MCDONALD L ([id number]) [facility] ([facility]) [address] [place] [address] 24134 WBC (Bld) [#/Vol] 8.2 x10*3/uL Normal 4.4-11.3 [facility] Comment on above: Performed By: #### 1 4979-9 #### ERICA Tam ([id number]) [facility] ([facility]) [address] [place] [address] 38917 Erythrocyte distribution width (RBC) [Ratio] 14.6 % High 11.5-14.5 [facility] Comment on above: Performed By: #### 5 8410-2 #### ERICA Tam ([id number]) [facility] ([facility]) [address] [place] [address] 51767 Hematocrit (Bld) [Volume fraction] 35.2 % Low 41.0-52.0 [facility] Comment on above: Performed By: #### 5 8410-2 #### ERICA Tam ([id number]) [facility] ([facility]) [address] [place] [address] 00090 Hemoglobin (Bld) [Mass/Vol] 11.4 g/dL Low 13.5-17.5 [facility] Comment on above: Performed By: #### 5 8410-2 #### ERICA Tam ([id number]) [facility] ([facility]) [address] [place] [address] 48323 MCH (RBC) [Entitic mass] 29.3 pg Normal 26.0-34.0 [facility] Comment on above: Performed By: #### 5 8410-2 #### ERICA Tam ([id number]) [facility] ([facility]) [address] [place] [address] 65837 MCHC (RBC) [Mass/Vol] 32.4 g/dL Normal 32.0-36.0 [facility] Comment on above: Performed By: #### 5 8410-2 #### ERICA Tam ([id number]) [facility] ([facility]) [address] [place] [address] 96388 MCV (RBC) [Entitic vol] 91 fL Normal 80-100 [facility] Comment on above: Performed By: #### 5 8410-2 #### ERICA Tam ([id number]) [facility] ([facility]) [address] [place] [address] 45780 Nucleated RBC/100 WBC (Bld) [Ratio] 0.0 /100 WBCs Normal 0.0-0.0 [facility] Comment on above: Performed By: #### 5 8410-2 #### ERICA Tam ([id number]) [facility] ([facility]) [address] [place] [address] 81020 Platelets (Bld) [#/Vol] 285 x10*3/uL Normal 150-450 [facility] Comment on above: Performed By: #### 5 8410-2 #### ERICA Tam ([id number]) [facility] ([facility]) [address] [place] [address] 76733 RBC (Bld) [#/Vol] 3.89 x10*6/uL Low 4.50-5.90 [facility] Comment on above: Performed By: #### 5 8410-2 #### ERICA Tam ([id number]) [facility] ([facility]) [address] [place] [address] 47859 WBC (Bld) [#/Vol] 9.3 x10*3/uL Normal 4.4-11.3 [facility] Comment on above: Performed By: #### 5 8410-2 #### ERICA Tam ([id number]) [facility] ([facility]) [address] [place] [address] 86405 Coagulation surface inducedo n 10-16-2023 aPTT Coag (PPP) [Time] 30 s Normal 27-38 [facility] Comment on above: Order Comment: Prior to initiating heparin if not obtained in prior 48 hours. Nursing to release order. The APTT is no longer used for monitoring Unfractionated Heparin Therapy. For monitoring Heparin Therapy, use the Heparin Assay. Performed By: #### 1 4979-9 #### ERICA Tam ([id number]) [facility] ([facility]) [address] [place] [address] 66592 Coagulation tissue factor in ducedon 10-16-2023 PT Coag (PPP) [Time] 12.5 s Normal 9.8-12.8 [facility] Comment on above: Order Comment: If val monroe has not had PT + INR in the last 24 hours. Nursing to release order. Performed By: #### 5 902-2 #### ERICA Tam ([id number]) [facility] ([facility]) [address] [place] [address] 01998 Cobalaminson 10-16-2023 Cobalamin (Vitamin B12) [Mass/Vol] 201 pg/mL Low 211-911 [facility] Comment on above: Performed By: #### 5 902-2 #### ERICA Tam ([id number]) [facility] ([facility]) [address] [place] [address] 22997 Comprehensive metabolic 2000 panelon 10-16-2023 Albumin BCP dye [Mass/Vol] 3.3 g/dL Low 3.4-5.0 [facility] Comment on above: Performed By: #### 2 4323-8 #### ERICA Tam ([id number]) [facility] ([facility]) [address] [place] [address] 08489 ALP [Catalytic activity/Vol] 58 U/L Normal 33-136 [facility] Comment on above: Performed By: #### 2 4323-8 #### ERICA Tam ([id number]) [facility] ([facility]) [address] [place] [address] 11395 ALT With P-5'-P [Catalytic activity/Vol] 15 U/L Normal 10-52 [facility] Comment on above: Result Comment: Criselda ents treated with Sulfasalazine may generate falsely decreased results for ALT. Performed By: #### 2 4323-8 #### ERICA Tam ([id number]) [facility] ([facility]) [address] [place] [address] Anion gap [Moles/Vol] 13 mmol/L Normal 10-20 [facility] Comment on above: Performed By: #### 2 4323-8 #### ERICA Tam ([id number]) [facility] ([facility]) [address] [place] [address] 46937 AST With P-5'-P [Catalytic activity/Vol] 14 U/L Normal 9-39 [facility] Comment on above: Result Comment: MILD HEMOLYSIS DETECTED. The result may be falsely elevated due to hemolysis or other interferents. Clinical correlation is recommended. Repeat testing may be considered. Performed By: #### 2 4323-8 #### ERICA Tam ([id number]) [facility] ([facility]) [address] [place] [address] 36001 Bilirubin [Mass/Vol] 0.4 mg/dL Normal 0.0-1.2 [facility] Comment on above: Performed By: #### 2 4323-8 #### ERICA MCDONALD L ([id number]) [facility] ([facility]) [address] [place] [address] 37933 Calcium [Mass/Vol] 8.3 mg/dL Low 8.6-10.6 [facility] Comment on above: Performed By: #### 2 4323-8 #### ERICA MCDONALD L ([id number]) [facility] ([facility]) [address] [place] [address] 35745 Chloride [Moles/Vol] 102 mmol/L Normal 98-107 [facility] Comment on above: Performed By: #### 2 4323-8 #### ERICA RESTREPOMOTZER L ([id number]) [facility] ([facility]) [address] [place] [address] 81545 CO2 [Moles/Vol] 26 mmol/L Normal 21-32 [facility] Comment on above: Performed By: #### 2 4323-8 #### ERICA MCDONALD L ([id number]) [facility] ([facility]) [address] [place] [address] 49737 Creatinine [Mass/Vol] 1.64 mg/dL High 0.50-1.30 [facility] Comment on above: Performed By: #### 2 4323-8 #### ERICA RESTREPOMOTZLUZ L ([id number]) [facility] ([facility]) [address] [place] [address] Glomerular filtration rate/1.73 sq M.predicted 45 mL/min/1.73m*2 Low >60 [facility] Comment on above: Result Comment: Calc ulations of estimated GFR are performed using the 2020 CKD-EPI Study Refit equation without the race variable for the IDMS-Traceable creatinine methods. https://jasn.asnjournals.org/content//ASN.56333 43413 Performed By: #### 2 4323-8 #### ERICA Tam ([id number]) [facility] ([facility]) [address] [place] [address] 22906 Glucose [Mass/Vol] 173 mg/dL High 74-99 [facility] Comment on above: Performed By: #### 2 4323-8 #### ERICA MCDONALD L ([id number]) [facility] ([facility]) [address] [place] [address] 64887 Potassium [Moles/Vol] 4.3 mmol/L Normal 3.5-5.3 [facility] Comment on above: Result Comment: MILD HEMOLYSIS DETECTED. The result may be falsely elevated due to hemolysis or other interferents. Clinical correlation is recommended. Repeat testing may be considered. Performed By: #### 2 4323-8 #### ERICA MCDONALD L ([id number]) [facility] ([facility]) [address] [place] [address] 75567 Protein [Mass/Vol] 5.6 g/dL Low 6.4-8.2 [facility] Comment on above: Performed By: #### 2 4323-8 #### ERICA RESTREPOMOTZER L ([id number]) [facility] ([facility]) [address] [place] [address] 48956 Sodium [Moles/Vol] 137 mmol/L Normal 136-145 [facility] Comment on above: Performed By: #### 2 4323-8 #### ERICA RESTREPOMOTZER L ([id number]) [facility] ([facility]) [address] [place] [address] 19658 Urea nitrogen [Mass/Vol] 33 mg/dL High 6-23 [facility] Comment on above: Performed By: #### 2 4323-8 #### ERICA Tam ([id number]) [facility] ([facility]) [address] [place] [address] 97890 ECG 12-LEADon 10-16-2023 ECG 12-LEAD Ventricular Rate 85 Atrial Rate 85 P-R Interval 196 QRS Duration 100 Q-T Interval 392 QTC Calculation(Bazett) 466 P Pachuta 40 R Pachuta 54 T Pachuta 51 QRS Count 14 Q Onset 222 P Onset 124 P Offset 185 T Offset 418 QTC Fredericia 440 Diagnosis Normal sinus rhythm Prolonged QT Abnormal ECG No previous ECGs available Confirmed by Mark Kennedy ([id number]) on 10/16/2023 5:14:12 PM Normal [facility] Ferritinon 10-16-2023 Ferritin [Mass/Vol] 184 ng/mL Normal 20-300 [facility] Comment on above: Performed By: #### 5 902-2 #### ERICA Tam ([id number]) [facility] ([facility]) [address] [place] [address] 22388 Folateon 10-16-2023 Folate [Mass/Vol] 10.0 ng/mL Normal >5.0 [facility] Comment on above: Order Comment: If val monroe has not had PT + INR in the last 24 hours. Nursing to release order. Performed By: #### 5 902-2 #### ERICA Tam ([id number]) [facility] ([facility]) [address] [place] [address] 53568 Gas and Carbon monoxide pane l (BldA)on 10-16-2023 Base excess Calc (Bld) [Moles/Vol] -0.5000 mmol/L Normal -2.0-3.0 [facility] Comment on above: Performed By: #### 1 4979-9 #### ERICA Tam ([id number]) [facility] ([facility]) [address] [place] [address] 40483 Carboxyhemoglobin (BldA) [Mass fraction] 3.1 % Normal [facility] Comment on above: Result Comment: Ref Values Non-Smokers 0.5-1.5% Smokers 0.5-10.0% Performed By: #### 1 4979-9 #### ERICA Tam ([id number]) [facility] ([facility]) [address] [place] [address] 21775 CO2 (Bld) [Partial pressure] 39 mm Hg Normal 38-42 [facility] Comment on above: Performed By: #### 1 4979-9 #### ERICA Tam ([id number]) [facility] ([facility]) [address] [place] [address] 33319 Deoxyhemoglobin (BldA) [Mass fraction] 4.8 % Normal 0.0-5.0 [facility] Comment on above: Performed By: #### 1 4979-9 #### ERICA Tam ([id number]) [facility] ([facility]) [address] [place] [address] 76460 HCO3 (Bld) [Moles/Vol] 24.2 mmol/L Normal 22.0-26.0 [facility] Comment on above: Performed By: #### 1 4979-9 #### ERICA Tam ([id number]) [facility] ([facility]) [address] [place] [address] 54656 Hemoglobin (Bld) [Mass/Vol] 11.3 g/dL Low 13.5-17.5 [facility] Comment on above: Performed By: #### 1 4979-9 #### ERICA Tam ([id number]) [facility] ([facility]) [address] [place] [address] 31435 Methemoglobin (BldA) [Mass fraction] 0.0 % Normal 0.0-1.5 [facility] Comment on above: Performed By: #### 1 4979-9 #### ERICA Tam ([id number]) [facility] ([facility]) [address] [place] [address] 70525 Oxygen (Bld) [Partial pressure] 67 mm Hg Low 85-95 [facility] Comment on above: Performed By: #### 1 4979-9 #### ERICA Tam ([id number]) [facility] ([facility]) [address] [place] [address] 15034 Oxyhemoglobin (BldA) [Mass fraction] 92.2 % Low 94.0-98.0 [facility] Comment on above: Performed By: #### 1 4979-9 #### ERICA Tam ([id number]) [facility] ([facility]) [address] [place] [address] 53474 pH (Bld) 7.40 [pH] Normal 7.38-7.42 [facility] Comment on above: Performed By: #### 1 4979-9 #### ERICA Tam ([id number]) [facility] ([facility]) [address] [place] [address] 91509 Glucose Test strip manual (B ld) [Mass/Vol]on 10-16-2023 Glucose [Mass/Vol] 151 mg/dL High 74-99 [facility] Comment on above: Performed By: #### 1 4979-9 #### ERICA Tam ([id number]) [facility] ([facility]) [address] [place] [address] 04115 Glucose [Mass/Vol] 261 mg/dL High [address] [place] [address] Comment on above: Performed By: #### 1 4979-9 #### ERICA Tam ([id number]) [facility] ([facility]) [address] [place] [address] 51559 Glucose [Mass/Vol] 170 mg/dL High -[address] [place] [address] Comment on above: Performed By: #### 5 902-2 #### ERICA Tam ([id number]) [facility] ([facility]) [address] [place] [address] 50449 HbA1c (Bld) [Mass fraction]o n 10-16-2023 Average glucose Estimated from glycated hemoglobin (Bld) [Mass/Vol] 148 mg/dL Normal Not Established [facility] Comment on above: Order Comment: If val monroe has not had PT + INR in the last 24 hours. Nursing to release order. Performed By: #### 5 902-2 #### ERICA Tam ([id number]) [facility] ([facility]) [address] [place], [place] [address] Hemoglobin A1c/Hemoglobin.to guero 10-16-2023 HbA1c (Bld) [Mass fraction] 6.8 % High see below [facility] Comment on above: Order Comment: If val monroe has not had PT + INR in the last 24 hours. Nursing to release order. Performed By: #### 5 902-2 #### ERICA Tam ([id number]) [facility] ([facility]) [address] [place], [place] [address] Heparin.unfractionatedon Heparin unfractionated Chromogenic method Qn (PPP) 0.3 IU/mL Normal See Comment Below for Therapeutic Ranges [facility] Comment on above: Order Comment: Prior to initiating heparin if not obtained in prior 48 hours. Nursing to release order. The APTT is no longer used for monitoring Unfractionated Heparin Therapy. For monitoring Heparin Therapy, use the Heparin Assay. Performed By: #### 1 4979-9 #### ERICA Tam ([id number]) [facility] ([facility]) [address] [place] [address] Heparin unfractionated Chromogenic method Qn (PPP) 0.2 IU/mL Normal See Comment Below for Therapeutic Ranges [facility] Comment on above: Order Comment: Prior to initiating heparin if not obtained in prior 48 hours. Nursing to release order. The APTT is no longer used for monitoring Unfractionated Heparin Therapy. For monitoring Heparin Therapy, use the Heparin Assay. Performed By: #### 1 4979-9 #### ERICA Tam ([id number]) [facility] ([facility]) [address] [place], [place] [address] Heparin unfractionated Chromogenic method Qn (PPP) 0.1 IU/mL Normal See Comment Below for Therapeutic Ranges [facility] Comment on above: Order Comment: If val monroe has not had PT + INR in the last 24 hours. Nursing to release order. Performed By: #### 5 902-2 #### ERICA Tam ([id number]) [facility] ([facility]) [address] [place] [address] 50109 Heparin unfractionated Chromogenic method Qn (PPP) 0.1 IU/mL Normal See Comment Below for Therapeutic Ranges [facility] Comment on above: Order Comment: Obtai [...] please refer to local Pharmacy and the [facility] Guidelines for Anticoagulation Therapy available on the [facility] intranet at: [email or web address] Performed By: #### 3 274-8 #### ERICA Tam ([id number]) [facility] ([facility]) [address] [place] [address] 14452 Iron and Iron binding capaci ty panelon 10-16-2023 Iron [Mass/Vol] 33 ug/dL Low 35-150 [facility] Comment on above: Result Comment: MILD HEMOLYSIS DETECTED. The result may be falsely elevated due to hemolysis or other interferents. Clinical correlation is recommended. Repeat testing may be considered. Performed By: #### 5 902-2 #### ERICA Tam ([id number]) [facility] ([facility]) [address] [place] [address] Iron binding capacity [Mass/Vol] 285 ug/dL Normal 240-445 [facility] Comment on above: Performed By: #### 5 902-2 #### ERICA Tam ([id number]) [facility] ([facility]) [address] [place] [address] Iron binding capacity.unsaturated [Mass/Vol] 252 ug/dL Normal 110-370 [facility] Comment on above: Performed By: #### 5 902-2 #### ERICA Tam ([id number]) [facility] ([facility]) [address] [place] [address] Iron saturation [Mass fraction] 12 % Low 25-45 [facility] Comment on above: Performed By: #### 5 902-2 #### ERICA Tam ([id number]) [facility] ([facility]) [address] [place] [address] 31266 LIPID PANEL NON-FASTINGon Cholesterol [Mass/Vol] 114 mg/dL Normal 0-199 Un [facility] Comment on above: Result Comment: Age Desirable [...] By: #### L IPIN #### ERICA Tam ([id number]) [facility] ([facility]) [address] [place] [address] 12813 Cholesterol in HDL [Mass/Vol] 25.8 mg/dL Normal [facility] Comment on above: Result Comment: Age Very Low Low Normal High 0-19 Y < 35 < 40 40-45 ---- 20-24 Y ---- < 40 >45 ---- >24 Y ---- < 40 40-60 >60 Performed By: #### L IPIN #### ERICA Tam ([id number]) [facility] ([facility]) [address] [place] [address] 06528 CHOLESTEROL/HDL RATIO 4.4 Normal [facility] Comment on above: Result Comment: Ref Values Desirable < 3.4 High Risk > 5.0 Performed By: #### L IPIN #### ERICA Tam ([id number]) [facility] ([facility]) [id number] [place] [address] 87457 NON-HDL CHOLESTEROL 88 mg/dL Normal 0-149 [facility] Comment on above: Result Comment: Age Desiable Borderline High High Very High 0-19 Y 0 - 119 120 - 144 >/= 145 >/= 160 20-24 Y 0 - 149 150 - 189 >/= 190 ---- >24 Y 30 MG/DL ABOVE LDL CHOLESTEROL GOAL Performed By: #### L IPIN #### ERICA Tam ([id number]) [facility] ([facility]) [address] [place] [address] 19551 Magnesiumon 10-16-2023 Magnesium [Mass/Vol] 1.84 mg/dL Normal 1.60-2.40 [facility] Comment on above: Performed By: #### 1 4979-9 #### ERICA Tam ([id number]) [facility] ([facility]) [address] [place] [address] 84124 Natriuretic peptide B [Mass/ Vol]on 10-16-2023 Natriuretic peptide B (Bld) [Mass/Vol] 88 pg/mL Normal 0-99 [facility] Comment on above: Order Comment: If val monroe has not had PT + INR in the last 24 hours. Nursing to release order. Performed By: #### 5 902-2 #### ERICA Tam ([id number]) [facility] ([facility]) [address] [place] [address] 49284 PT Coag (PPP) [Time]on 10-15 INR Coag (PPP) [Relative time] 1.1 Normal 0.9-1.1 [facility] Comment on above: Order Comment: If val monroe has not had PT + INR in the last 24 hours. Nursing to release order. Performed By: #### 5 902-2 #### ERICA Tam ([id number]) [facility] ([facility]) [address] [place] [address] 98678 Platelets Auto (Bld) [#/Vol] on 10-16-2023 Platelets (Bld) [#/Vol] 276 x10*3/uL Normal 150-450 [facility] Comment on above: Order Comment: Basel ine platelet count before any heparin given. May discontinue if platelet count already obtained today, or if heparin already administered. Performed By: #### 7 77-3 #### ERICA Tam ([id number]) [facility] ([facility]) [address] [place] [address] 51940 Renal function 2000 panelon 10-16-2023 Albumin BCP dye [Mass/Vol] 3.1 g/dL Low 3.4-5.0 [facility] Comment on above: Performed By: #### 1 4979-9 #### ERICA Tam ([id number]) [facility] ([facility]) [address] [place] [address] 38504 Anion gap [Moles/Vol] 15 mmol/L Normal 10-20 [facility] Comment on above: Performed By: #### 1 4979-9 #### ERICA MCDONALD L ([id number]) [facility] ([facility]) [address] [place] [address] 41198 Calcium [Mass/Vol] 8.2 mg/dL Low 8.6-10.6 [facility] Comment on above: Performed By: #### 1 4979-9 #### ERICA MCDONALD L ([id number]) [facility] ([facility]) [address] [place] [address] 97449 Chloride [Moles/Vol] 103 mmol/L Normal 98-107 [facility] Comment on above: Performed By: #### 1 4979-9 #### ERICA RESTREPOMOMARLENY L ([id number]) [facility] ([facility]) [address] [place] [address] 70348 CO2 [Moles/Vol] 24 mmol/L Normal 21-32 [facility] Comment on above: Performed By: #### 1 4979-9 #### ERICA MCDONALD L ([id number]) [facility] ([facility]) [address] [place] [address] 85472 Creatinine [Mass/Vol] 1.52 mg/dL High 0.50-1.30 [facility] Comment on above: Performed By: #### 1 4979-9 #### ERICA Tam ([id number]) [facility] ([facility]) [address] [place] [address] Glomerular filtration rate/1.73 sq M.predicted 49 mL/min/1.73m*2 Low >60 [facility] Comment on above: Result Comment: Calc ulations of estimated GFR are performed using the 2020 CKD-EPI Study Refit equation without the race variable for the IDMS-Traceable creatinine methods. https://jasn.asnjournals.org/content/early//ASN.72771 29482 Performed By: #### 1 4979-9 #### ERICA Tam ([id number]) [facility] ([facility]) [address] [place] [address] 94473 Glucose [Mass/Vol] 229 mg/dL High 74-99 [facility] Comment on above: Performed By: #### 1 4979-9 #### ERICA Tam ([id number]) [facility] ([facility]) [address] [place] [address] 65497 Phosphate [Mass/Vol] 3.1 mg/dL Normal 2.5-4.9 [facility] Comment on above: Result Comment: The performance characteristics of phosphorus testing in heparinized plasma have been validated by the individual laboratory site where testing is performed. Testing on heparinized plasma is not approved by the FDA; however, such approval is not necessary. Performed By: #### 1 4979-9 #### ERICA Tam ([id number]) [facility] ([facility]) [address] [place] [address] Potassium [Moles/Vol] 4.1 mmol/L Normal 3.5-5.3 [facility] Comment on above: Performed By: #### 1 4979-9 #### ERICA Tam ([id number]) [facility] ([facility]) [address] [place] [address] Sodium [Moles/Vol] 138 mmol/L Normal 136-145 [facility] Comment on above: Performed By: #### 1 4979-9 #### ERICA Tam ([id number]) [facility] ([facility]) [address] [place] [address] Urea nitrogen [Mass/Vol] 32 mg/dL High 6-23 [facility] Comment on above: Performed By: #### 1 4979-9 #### ERICA Tam ([id number]) [facility] ([facility]) [address] [place] [address] Staphylococcus aureus.methic illin resistant isolateon 10-16-2023 MRSA isol Org specific cx Ql (Nose) Test: Staphylococcus aureus/MRSA colonization, Culture Specimen Source: Anterior Nares Specimen Type: Swab Specimen Date: 10/16/2023 1023 Result Date: 10/17/2023 1257 Result Status: Final result Abnormal: No Resulting Lab: [facility] [address] [place] [address] CULTURE No Staphylococcus aureus isolated Normal [facility] Comment on above: Performed By: #### 2 4323-8 #### ERICA Tma ([id number]) [facility] ([facility]) [address] [place] [address] TSH WITH REFLEX TO FREE T4 I F ABNORMALon 10-16-2023 TSH Qn 6.30 m[IU]/L High 0.44-3.98 [facility] Comment on above: Order Comment: TSH t esting is performed using different testing methodology at [facility] than at other [facility]. Direct result comparisons should only be made within the same method. Performed By: #### T HYDS #### ERICA Tam ([id number]) [facility] ([facility]) [address] [place], [place] [address] Thyroxine.freeon 10-16-2023 Free T4 [Mass/Vol] 1.20 ng/dL Normal 0.78-1.48 [facility] Comment on above: Order Comment: If val monroe has not had PT + INR in the last 24 hours. Nursing to release order. Performed By: #### 5 902-2 #### ERICA Tam ([id number]) [facility] ([facility]) [address] [place] [address] 20214 Troponin I.cardiac panelon 0 10-16-2023 Tropinin I.cardiac panel High sensitivity method 916 ng/L Critically high 0-53 [facility] Comment on above: Order Comment: If val monroe has not had PT + INR in the last 24 hours. Nursing to release order. Performed By: #### 5 902-2 #### ERICA Tam ([id number]) [facility] ([facility]) [address] [place] [address] 34169 Urinalysis complete W Reflex Culture panel (U)on 10-16-2023 Appearance (U) Clear Normal Clear [facility] Comment on above: Performed By: #### 5 8077-9 #### ERICA Tam ([id number]) [facility] ([facility]) [address] [place] [address] 93860 Bilirubin (U) [Mass/Vol] Negative Normal NEGATIVE [facility] Comment on above: Performed By: #### 5 8077-9 #### ERICA Tam ([id number]) [facility] ([facility]) [address] [place] [address] 77393 Color (U) Light-Yellow Normal Light-Yellow , Yellow, Dark-Yellow [facility] Comment on above: Performed By: #### 5 8077-9 #### ERICA MCDONALD L ([id number]) [facility] ([facility]) [address] [place] [address] 23416 Glucose Auto test strip (U) [Mass/Vol] 50 (TRACE) Abnormal Normal [facility] Comment on above: Performed By: #### 5 8077-9 #### ERICA MCDONALD L ([id number]) [facility] ([facility]) [address] [place] [address] 21189 Ketones (U) [Mass/Vol] Negative Normal NEGATIVE [facility] Comment on above: Performed By: #### 5 8077-9 #### ERICA Tam ([id number]) [facility] ([facility]) [address] [place] [address] 56962 Leukocyte esterase Auto test strip Ql (U) Negative Normal NEGATIVE [facility] Comment on above: Performed By: #### 5 8077-9 #### ERICA Tam ([id number]) [facility] ([facility]) [address] [place] [address] 06514 Mucus Auto (Urine sed) [#/Area] FEW Normal Reference range not established. [facility] Comment on above: Performed By: #### 5 8077-9 #### ERICA Tam ([id number]) [facility] ([facility]) [address] [place] [address] 37038 Nitrite Auto test strip Ql (U) Negative Normal NEGATIVE [facility] Comment on above: Performed By: #### 5 8077-9 #### ERICA Tam ([id number]) [facility] ([facility]) [address] [place] [address] 80640 pH (U) 5.0 [pH] Normal 5.0, 5.5, 6.0, 6.5, 7.0, 7.5, 8.0 [facility] Comment on above: Performed By: #### 5 8077-9 #### ERICA Tam ([id number]) [facility] ([facility]) [address] [place] [address] 43835 Protein (U) [Mass/Vol] 10 (TRACE) Normal NEGAT LE, 10 (TRACE), 20 (TRACE) [facility] Comment on above: Performed By: #### 5 8077-9 #### ERICA MCDONALD L ([id number]) [facility] ([facility]) [address] [place] [address] 03768 RBC (U) [#/Vol] Negative Normal NEGATIVE [facility] Comment on above: Performed By: #### 5 8077-9 #### ERICA ARREOLATZER L ([id number]) [facility] ([facility]) [address] [place] [address] RBC Auto (Urine sed) [#/Area] NONE Normal NONE, 1-2, 3-5 [facility] Comment on above: Performed By: #### 5 8077-9 #### ERICA SCHMOTZER L ([id number]) [facility] ([facility]) [address] [place] [address] 56046 Specific gravity (U) [Rel density] 1.026 Normal 1.005-1.035 [facility] Comment on above: Performed By: #### 5 8077-9 #### ERICA SCHMOTZER L ([id number]) [facility] ([facility]) [address] [place] [address] 14505 Urobilinogen (U) [Mass/Vol] Normal Normal Normal [facility] Comment on above: Performed By: #### 5 8077-9 #### ERICA RESTREPOMOTZER L ([id number]) [facility] ([facility]) [address] [place] [address] 82358 WBC Auto (Urine sed) [#/Area] 1-5 Normal 1-5, NONE [facility] Comment on above: Performed By: #### 5 8077-9 #### ERICA SCHMOTZER L ([id number]) [facility] ([facility]) [address] [place] [address] 13422 XR CHEST 2 VIEWSon XR CHEST 2 VIEWS Interpreted By: Rex Lambert, STUDY: XR CHEST 2 VIEWS; 10/16/2023 2:01 pm INDICATION: Signs/Symptoms:CABG evaluation. COMPARISON: None. ACCESSION NUMBER(S): [id number] ORDERING CLINICIAN: CATIA PATTON FINDINGS: CARDIOMEDIASTINAL SILHOUETTE: Cardiomegaly versus pericardial effusion. Right hilar calcifications. LUNGS: Low lung volumes with perihilar bibasilar atelectasis/effusions. ABDOMEN: No remarkable upper abdominal findings. BONES: No acute osseous changes. IMPRESSION: 1. Cardiomegaly with pulmonary edema and correlate with cardiac and fluid status. Signed by: Rex Ballesteros 10/18/2023 7:12 AM Dictation workstation: [id number] [facility] Activated partial thrombopla stin time (aPTT) in platelet poor plasma by coagulation aOrdered By: Ann Plata on 10-15-2023 aPTT Coag (PPP) [Time] 45.5 s High 25.1-36.5 [facility] Comment on above: A hematocrit value g reater than 55% may lead to inaccurate results in coagulation testing. Patients having hematocrit values >55% require a special collection tube for coagulation studies. Please contact the laboratory at [phone] for redraw instructions. Alanine aminotransferase [En zymatic activity/volume] in Serum or PlasmaOrdered By: Alondra Gonzales on 10-15-2023 ALT [Catalytic activity/Vol] 17 U/L Normal 7-52 [facility] Comment on above: Performed By: #### G LULS #### Point of Care testing , Albumin [Mass/volume] in Ser um or Plasma by Bromocresol green (BCG) dye binding methoOrdered By: Alondra Gonzales on 10-15-2023 Albumin BCG dye [Mass/Vol] 3.4 g/dL Low 3.5-5.7 [facility] Alkaline phosphatase [Enzyma tic activity/volume] in Serum or PlasmaOrdered By: Alondra Gonzales on 10-15-2023 ALP [Catalytic activity/Vol] 62 U/L Normal 34-104 [facility] Comment on above: Performed By: #### G LULS #### Point of Care testing , Aspartate aminotransferase [ Enzymatic activity/volume] in Serum or PlasmaOrdered By: Alondra Gonzales on 10-15-2023 AST [Catalytic activity/Vol] 16 U/L Normal 13-39 [facility] Comment on above: Performed By: #### G LULS #### Point of Care testing , Automated basophil %Ordered By: Alondra Gonzales on 10-15-2023 Basophils/100 WBC (Bld) 1.0 % Normal . [facility] Comment on above: Performed By: #### C BC #### [facility] [address] [place] [address] Automated basophil countOrde red By: Alondra Gonzales on 10-15-2023 Basophils (Bld) [#/Vol] 0.1 10*3/uL Normal 0.0-0.2 [facility] Comment on above: Result Comment: PERF ORMED BY: [place] [address] PATHOLOGIST INCOME TAX INVESTIGATOR WOLFGANG JOHNSON M.D. Performed By: #### C BC #### [address] Automated blood monocyte cou ntOrdered By: Alondra Gonzales on 10-15-2023 Monocytes (Bld) [#/Vol] 0.9 10*3/uL High 0.0-0.8 [facility] Comment on above: Performed By: #### C BC #### [facility] [address] [place] [address] Automated eosinophil %Ordere d By: Alondra Gonzales on 10-15-2023 Eosinophils/100 WBC (Bld) 3.7 % Normal . [facility] Comment on above: Performed By: #### C BC #### [facility] [address] [place] [address] Automated eosinophil countOr dered By: Alondra Gonzales on 10-15-2023 Eosinophils (Bld) [#/Vol] 0.4 10*3/uL Normal 0.0-0.45 [facility] Comment on above: Performed By: #### C BC #### [address] Automated monocyte %Ordered By: Alondra Gonzales on 10-15-2023 Monocytes/100 WBC (Bld) 9.3 % Normal . [facility] Comment on above: Performed By: #### C BC #### [facility] [address] [place] [address] Automated neutrophil %Ordere d By: Harriettamarakel Gonzales on 10-15-2023 Neutrophils/100 WBC (Bld) 74.1 % Normal . [facility] Comment on above: Performed By: #### C BC #### [facility] [address] [place] [address] Bilirubin.total [Mass/volume ] in Serum or PlasmaOrdered By: Alondra Gonzales on 10-15-2023 Bilirubin [Mass/Vol] 0.4 mg/dL Normal 0.3-1.0 [facility] Comment on above: Performed By: #### G LULS #### Point of Care testing , Calcium [Mass/volume] in Ser um or PlasmaOrdered By: Alondra Gonzales on 10-15-2023 Calcium [Mass/Vol] 8.1 mg/dL Low 8.6-10.3 [facility] Comment on above: Performed By: #### G LULS #### Point of Care testing , Capillary blood glucose jose urement by glucometer (mass/volume)Ordered By: Yovanny Rivera on 10-15-2023 Glucose [Mass/Vol] 277 mg/dL Normal [facility] Comment on above: Random Glucose Refer ence Range is dependent on time and content of last meal. Glucose of more than 200 mg/dL in a nonstressed, ambulatory subject supports the diagnosis of Diabetes Mellitus. Result Comment: Seminary Glucose Reference Range is dependent on time and content of last meal. Glucose of more than 200 mg/dL in a nonstressed, ambulatory subject supports the diagnosis of Diabetes Mellitus. PERFORMED BY: [address] [place] [address] PATHOLOGIST INCOME TAX INVESTIGATOR WOLFGANG JOHNSON M.D. Performed By: #### C BC, ESR #### [address] Carbon dioxide, total [Moles /volume] in Serum or PlasmaOrdered By: Alondra Gonzales on 10-15-2023 CO2 [Moles/Vol] 28.2 mmol/L Normal 21.0-31.0 [facility] Comment on above: Performed By: #### G LULS #### Point of Care testing , Chloride [Moles/volume] in S teodoro or PlasmaOrdered By: Alondra Gonzales on 10-15-2023 Chloride [Moles/Vol] 104 mmol/L Normal 98-107 [facility] Comment on above: Performed By: #### G LULS #### Point of Care testing , Complete Blood Count Auto Di ffon 10-15-2023 Mean Corpuscular HGB Conc 33.4 g/dL Normal 32.5-35.6 [facility] Comment on above: Performed By: #### C BC #### [facility] [address] [place] [address] NRBC% 0.1 /100{WBC} Normal 0-0.5 [facility] Comment on above: Performed By: #### C BC #### [facility] [address] [place] [address] Comprehensive Metabolic Pane laxmi 10-15-2023 Albumin [Mass/Vol] 3.4 g/dL Low 3.5-5.7 [facility] Comment on above: Performed By: #### G LULS #### Point of Care testing , Creatinine Clr Calc Pharmacy 51.77 Normal [facility] Comment on above: Performed By: #### G LULS #### Point of Care testing , GFR/1.73 sq M.predicted MDRD (S/P/Bld) [Vol rate/Area] 43.716 mL/min/{1.73_m2} Normal [facility] Comment on above: Performed By: #### G LULS #### Point of Care testing , Creatinine [Mass/volume] in Serum or PlasmaOrdered By: Alondra Gonzales on 10-15-2023 Creatinine [Mass/Vol] 1.68 mg/dL High 0.70-1.30 [facility] Comment on above: Performed By: #### G LULS #### Point of Care testing , ECH echo transthoracicon ECH echo transthoracic [facility] [place] [address] [place] [address] Echocardiogram Signed Patient: Italia Allen MR#: [id number] : 1955 Acct:[id number] Age/Sex: 68 / M ADM Date: 10/14/23 Loc: Room: [address] [place] [address] Type: ADM IN Attending Dr: Yovanny Rivera MD Ordering Provider: Alondra Gonzales MD Date of Service: 10/14/23 [facility] echo transthoracic: CHF exacerbation Copies to: MD [...] MD 10/15/23 1856 Normal [facility] Erythrocyte distribution wid th [Ratio] by Automated countOrdered By: Alondra Gonzales on 10-15-2023 Erythrocyte distribution width (RBC) [Ratio] 15.1 % High 12.0-14.8 [facility] Comment on above: Performed By: #### C BC #### [facility] [address] [place] [address] Erythrocytes [#/volume] in B lood by Automated countOrdered By: Alondra Gonzales on 10-15-2023 RBC (Bld) [#/Vol] 3.97 10*6/uL Normal 3.90-5.60 [facility] Comment on above: Performed By: #### C BC #### [facility] [address] Glucose Poct Glucometerson 0 10-15-2023 Commemt1 Glu2: Cleaned Meter Normal [facility] Comment on above: Result Comment: PERF ORMED BY: [address] [place] [address] PATHOLOGIST INCOME TAX INVESTIGATOR WOLFGANG JOHNSON M.D. Performed By: #### G LULS #### Point of Care testing , Glucose [Mass/Vol] 303 mg/dL Normal [facility] Comment on above: Result Comment: Seminary om Glucose Reference Range is dependent on time and content of last meal. Glucose of more than 200 mg/dL in a nonstressed, ambulatory subject supports the diagnosis of Diabetes Mellitus. Performed By: #### G LULS #### Point of Care testing , Commemt1 Glu2: Cleaned Meter Normal [facility] Comment on above: Result Comment: PERF ORMED BY: [place] [id number] PATHOLOGIST INCOME TAX INVESTIGATOR WOLFGANG JOHNSON M.D. Performed By: #### G LULS #### Point of Care testing , Glucose [Mass/Vol] 257 mg/dL Normal [facility] Comment on above: Result Comment: Seminary om Glucose Reference Range is dependent on time and content of last meal. Glucose of more than 200 mg/dL in a nonstressed, ambulatory subject supports the diagnosis of Diabetes Mellitus. Performed By: #### G LULS #### Point of Care testing , Commemt1 Glu2: Cleaned Meter Normal [facility] Comment on above: Result Comment: PERF ORMED BY: [address] [place] [id number] PATHOLOGIST INCOME TAX INVESTIGATOR WOLFGANG JOHNSON M.D. Performed By: #### G LULS #### Point of Care testing , Glucose [Mass/Vol] 159 mg/dL Normal [facility] Comment on above: Result Comment: Seminary om Glucose Reference Range is dependent on time and content of last meal. Glucose of more than 200 mg/dL in a nonstressed, ambulatory subject supports the diagnosis of Diabetes Mellitus. Performed By: #### G LULS #### Point of Care testing , Glucose [Mass/volume] in Ser um or PlasmaOrdered By: Alondra Gonzales on 10-15-2023 Glucose [Mass/Vol] 120 mg/dL Significant change up 70-100 [facility] Comment on above: Delta: 220 on -[id number] recommended reference rangeRandom Glucose Reference Range is dependent on time and content of last meal. Glucose of more than 200 mg/dL in a nonstressed, ambulatory subject supports the diagnosis of Diabetes Mellitus. Result Comment: [facility] Glucose Reference Range is dependent on time [...] (Bld) [Volume fraction] 35.0 % Low 38.8-50.0 [facility] Comment on above: Performed By: #### C BC #### [facility] [address] [place] [address] Hemoglobin [Mass/volume] in BloodOrdered By: Alondra Gonzales on 10-15-2023 Hemoglobin (Bld) [Mass/Vol] 11.7 g/dL Low 13.0-17.0 [facility] Comment on above: Performed By: #### C BC #### [facility] [address] [place] [address] INR in Platelet poor plasma by Coagulation assayOrdered By: Alondra Gonzales on 10-15-2023 INR Coag (PPP) [Relative time] 1.1 {INR} Normal [facility] Comment on above: INR Therapeutic Rang [...] Performed By: #### P TT, PT #### [address] Leukocytes [#/volume] correc zaid for nucleated erythrocytes in Blood by Automated counOrdered By: Alondra Gonzales on 10-15-2023 WBC corrected for nucl RBC Auto (Bld) [#/Vol] 9.8 10*3/uL 4.1-10.5 [facility] Leukocytes [#/volume] in Blo od by Automated countOrdered By: Alondra Gonzales on 10-15-2023 WBC (Bld) [#/Vol] 9.8 10*3/uL Normal 4.1-10.5 [facility] Comment on above: Performed By: #### C BC #### [address] Lymphocytes [#/volume] in Bl ood by Automated countOrdered By: Alondra Gonzales on 10-15-2023 Lymphocytes (Bld) [#/Vol] 1.2 10*3/uL Normal 1.00-4.8 [facility] Comment on above: Performed By: #### C BC #### [address] Lymphocytes/100 leukocytes i n Blood by Automated countOrdered By: Alondra Gonzales on 10-15-2023 Lymphocytes/100 WBC (Bld) 11.9 % Normal . [facility] Comment on above: Performed By: #### C BC #### [address] MCH [Entitic mass] by Automa zaid countOrdered By: Alondra Gonzales on 10-15-2023 MCH (RBC) [Entitic mass] 29.4 pg Normal 27.5-35.2 [facility] Comment on above: Performed By: #### C BC #### [address] MCHC Auto (RBC) [Mass/Vol]Or dered By: Alondra Gonzales on 10-15-2023 MCHC (RBC) [Mass/Vol] 33.4 g/dL 32.5-35.6 [facility] MCV [Entitic volume] by Auto mated countOrdered By: Alondra Gonzales on 10-15-2023 MCV (RBC) [Entitic vol] 87.9 fL Normal 83.5-101 [facility] Comment on above: Performed By: #### C BC #### [facility] [address] [place] [address] Magnesium [Mass/volume] in S teodoro or PlasmaOrdered By: Alondra Gonzales on 10-15-2023 Magnesium [Mass/Vol] 1.7 mg/dL Low 1.9-2.7 [facility] Comment on above: Result Comment: PERF ORMED BY: [place] [address] PATHOLOGIST INCOME TAX INVESTIGATOR WOLFGANG JOHNSON M.D. Performed By: #### G LULS #### Point of Care testing , Neutrophils [#/volume] in Bl ood by Automated countOrdered By: Alondra Gonzales on 10-15-2023 Neutrophils (Bld) [#/Vol] 7.3 10*3/uL Normal 1.8-7.7 [facility] Comment on above: Performed By: #### C BC #### [facility] [address] [place] [address] No Panel InformationOrdered By: Yovanny Rivera on 10-15-2023 Bedside Glucose Comment Glu2: cleaned meter [facility] No Panel InformationOrdered By: Alondra Gonzales on 10-15-2023 Estimated GFR (CKD-EPI) 43.716 mL/Min [facility] Creatinine Clearance (Chem 51.77 [facility] Nucleated erythrocytes [Pres ence] in Blood by Automated countOrdered By: Alondra Gonzales on 10-15-2023 Nucleated RBC Auto Ql (Bld) 0.1 /100{WBC} 0-0.5 [facility] Partial Thromboplastin Timeo n 10-15-2023 aPTT Coag (Bld) [Time] 45.5 s High 25.1-36.5 Th [facility] Comment on above: Result Comment: A he matocrit value greater than 55% may lead to inaccurate results in coagulation testing. Patients having hematocrit values >55% require a special collection tube for coagulation studies. Please contact the laboratory at [phone] for redraw instructions. PERFORMED BY: [place] [address] PATHOLOGIST INCOME TAX INVESTIGATOR WOLFGANG JOHNSON M.D. Performed By: #### P TT #### [address] aPTT Coag (Bld) [Time] 41.7 s High 25.1-36.5 [facility] Comment on above: Order Comment: List the anticoagulant: HEPARIN, UNFRACTIONATED Result Comment: A he matocrit value greater than 55% may lead to inaccurate results in coagulation testing. Patients having hematocrit values >55% require a special collection tube for coagulation studies. Please contact the laboratory at [phone] for redraw instructions. PERFORMED BY: [place] [address] PATHOLOGIST INCOME TAX INVESTIGATOR WOLFGANG JOHNSON M.D. Performed By: #### P TT, PT #### [address] Phosphate [Mass/volume] in S teodoro or PlasmaOrdered By: Alondra Gonzales on 10-15-2023 Phosphate [Mass/Vol] 3.8 mg/dL Normal 2.5-4.5 [facility] Comment on above: Performed By: #### G LULS #### Point of Care testing , Platelet mean volume [Entiti c volume] in Blood by Automated countOrdered By: Alondra Gonzales on 10-15-2023 Platelet mean volume (Bld) [Entitic vol] 7.7 fL Normal 6.6-10.1 [facility] Comment on above: Performed By: #### C BC #### [place] [address] [place] Platelets [#/volume] in Bloo d by Automated countOrdered By: Alondra Gonzales on 10-15-2023 Platelets (Bld) [#/Vol] 285 10*3/uL Normal 150-450 [facility] Comment on above: Performed By: #### C BC #### [facility] [address] [place] [address] [place] Potassium [Moles/volume] in Serum or PlasmaOrdered By: Alondra Gonzales on 10-15-2023 Potassium [Moles/Vol] 4.1 mmol/L Normal 3.5-5.1 [facility] Comment on above: Performed By: #### G LULS #### Point of Care testing , Protein [Mass/volume] in Ser um or PlasmaOrdered By: Alondra Gonzales on 10-15-2023 Protein [Mass/Vol] 5.6 g/dL Low 6.4-8.9 [facility] Comment on above: Performed By: #### G LULS #### Point of Care testing , Prothrombin time (PT)Ordered By: Alondra Gonzales on 10-15-2023 PT Coag (PPP) [Time] 12.6 s Normal 9.0-12.9 [facility] Comment on above: A hematocrit value g reater than 55% may lead to inaccurate results in coagulation testing. Patients having hematocrit values >55% require a special collection tube for coagulation studies. Please contact the laboratory at [phone] for redraw instructions. Order Comment: List the anticoagulant: HEPARIN, UNFRACTIONATED Result Comment: A he matocrit value greater than 55% may lead to inaccurate results in coagulation testing. Patients having hematocrit values >55% require a special collection tube for coagulation studies. Please contact the laboratory at [phone] for redraw instructions. Performed By: #### P TT, PT #### [facility] [address] [place] [id number] [place] Serum globulin measurement b y calculation (mass/volume)Ordered By: Alondra Gonzales on 10-15-2023 Globulin (S) [Mass/Vol] 2.2 g/dL Normal [facility] Comment on above: Performed By: #### G LULS #### Point of Care testing , Serum or plasma albumin/glob ulin mass ratioOrdered By: Alondra Gonzales on 10-15-2023 Albumin/Globulin [Mass ratio] 1.5 {ratio} Normal [facility] Comment on above: Performed By: #### G LULS #### Point of Care testing , Serum or plasma anion gap de terminationOrdered By: Alondra Gonzales on 10-15-2023 Anion gap [Moles/Vol] 10.9 mmol/L Normal 6.0-15.0 [facility] Comment on above: Performed By: #### G LULS #### Point of Care testing , Sodium [Moles/volume] in Ser um or PlasmaOrdered By: Alondra Gonzales on 10-15-2023 Sodium [Moles/Vol] 139 mmol/L Normal 136-145 [facility] Comment on above: Performed By: #### G LULS #### Point of Care testing , US renal BIon 10-15-2023 US renal [place] [address] Ultrasound Report Signed Patient: Italia Allen MR#: [id number] : 1955 Acct:[id number] Age/Sex: 68 / M ADM Date: 10/14/23 Loc: Room: [address] [place] [address] Type: ADM IN Attending Dr: Yovanny Rivera [...] Baird Jr., D.O.10/15/2023 9:59 AM Dictation Location: [place] [address] Tech: Rebecca Hein Transcribed By: PWS 10/15/2359 Dictated By: Jude Baird Jr, DO 10/15/23 0954 Signed By: 10/15/23 0959 Normal [facility] Urea nitrogen [Mass/volume] in Serum or PlasmaOrdered By: Alondra Gonzales on 10-15-2023 Urea nitrogen [Mass/Vol] 33 mg/dL High 09-12 [facility] Comment on above: Performed By: #### G RYAN #### Point of Care testing , C reactive protein [Mass/vol ume] in Serum or PlasmaOrdered By: Alondra Gonzales on 10-14-2023 CRP [Mass/Vol] 2.7 mg/dL High 0.0-0.5 [facility] C-Reactive Proteinon 024 C-Reactive Protein 2.7 mg/dL High 0.0-0.5 [facility] Comment on above: Result Comment: PERF ORMED BY: [place] [address] PATHOLOGIST INCOME TAX INVESTIGATOR WOLFGANG JOHNSON M.D. Performed By: #### C BC, ESR #### [address] Complete Blood Count Auto Di ffon 10-14-2023 Basophils (Bld) [#/Vol] 0.1 10*3/uL Normal 0.0-0.2 [facility] Comment on above: Performed By: #### C BC, ESR #### [place] [address] [place] Basophils/100 WBC (Bld) 1.3 % Normal . [facility] Comment on above: Performed By: #### C BC, ESR #### [place] [address] [place] Eosinophils (Bld) [#/Vol] 0.2 10*3/uL Normal 0.0-0.45 [facility] Comment on above: Performed By: #### C BC, ESR #### [place] [address] [place] Eosinophils/100 WBC (Bld) 3.2 % Normal . [facility] Comment on above: Performed By: #### C BC, ESR #### [address] Erythrocyte distribution width (RBC) [Ratio] 15.4 % High 12.0-14.8 [facility] Comment on above: Performed By: #### C BC, ESR #### [address] Hematocrit (Bld) [Volume fraction] 35.1 % Low 38.8-50.0 [facility] Comment on above: Performed By: #### C BC, ESR #### [address] Hemoglobin (Bld) [Mass/Vol] 11.6 g/dL Low 13.0-17.0 [facility] Comment on above: Performed By: #### C BC, ESR #### [address] Lymphocytes (Bld) [#/Vol] 0.9 10*3/uL Low 1.00-4.8 [facility] Comment on above: Performed By: #### C BC, ESR #### [address] Lymphocytes/100 WBC (Bld) 12.1 % Normal . [facility] Comment on above: Performed By: #### C BC, ESR #### [address] MCH (RBC) [Entitic mass] 29.3 pg Normal 27.5-35.2 [facility] Comment on above: Performed By: #### C BC, ESR #### [address] MCV (RBC) [Entitic vol] 88.7 fL Normal 83.5-101 [facility] Comment on above: Performed By: #### C BC, ESR #### [address] Mean Corpuscular HGB Conc 33.0 g/dL Normal 32.5-35.6 [facility] Comment on above: Performed By: #### C BC, ESR #### [facility] [address] [place] [address] [place] Monocytes (Bld) [#/Vol] 0.6 10*3/uL Normal 0.0-0.8 [facility] Comment on above: Performed By: #### C BC, ESR #### [facility] [address] [place] [address] [place] Monocytes/100 WBC (Bld) 7.5 % Normal . [facility] Comment on above: Performed By: #### C BC, ESR #### [facility] [address] [place] [address] [place] Neutrophils (Bld) [#/Vol] 5.7 10*3/uL Normal 1.8-7.7 [facility] Comment on above: Performed By: #### C BC, ESR #### [facility] [address] [place] [address] [place] Neutrophils/100 WBC (Bld) 75.9 % Normal . [facility] Comment on above: Performed By: #### C BC, ESR #### [facility] [address] [place] [address] [place] NRBC% 0.1 /100{WBC} Normal 0-0.5 [facility] Comment on above: Performed By: #### C BC, ESR #### [facility] [address] [place] [address] [place] Platelet mean volume (Bld) [Entitic vol] 7.8 fL Normal 6.6-10.1 [facility] Comment on above: Performed By: #### C BC, ESR #### [facility] [address] [place] [address] [place] Platelets (Bld) [#/Vol] 290 10*3/uL Normal 150-450 [facility] Comment on above: Performed By: #### C BC, ESR #### [facility] [address] [place] [address] [place] RBC (Bld) [#/Vol] 3.95 10*6/uL Normal 3.90-5.60 [facility] Comment on above: Performed By: #### C BC, ESR #### [address] WBC (Bld) [#/Vol] 7.5 10*3/uL Normal 4.1-10.5 [facility] Comment on above: Performed By: #### C BC, ESR #### [address] Basophils (Bld) [#/Vol] 0.1 10*3/uL Normal 0.0-0.2 [facility] Comment on above: Result Comment: PERF ORMED BY: [place] [address] PATHOLOGIST INCOME TAX INVESTIGATOR WOLFGANG JOHNSON M.D. Performed By: #### C BC, ESR #### [address] Basophils/100 WBC (Bld) 1.3 % Normal . [facility] Comment on above: Performed By: #### C BC, ESR #### [address] Eosinophils (Bld) [#/Vol] 0.3 10*3/uL Normal 0.0-0.45 [facility] Comment on above: Performed By: #### C BC, ESR #### [address] Eosinophils/100 WBC (Bld) 3.4 % Normal . [facility] Comment on above: Performed By: #### C BC, ESR #### [address] Erythrocyte distribution width (RBC) [Ratio] 15.3 % High 12.0-14.8 [facility] Comment on above: Performed By: #### C BC, ESR #### [address] Hematocrit (Bld) [Volume fraction] 35.3 % Low 38.8-50.0 [facility] Comment on above: Performed By: #### C BC, ESR #### [address] [place] [address] [place] Hemoglobin (Bld) [Mass/Vol] 11.8 g/dL Low 13.0-17.0 [facility] Comment on above: Performed By: #### C BC, ESR #### [address] Lymphocytes (Bld) [#/Vol] 0.9 10*3/uL Low 1.00-4.8 [facility] Comment on above: Performed By: #### C BC, ESR #### [address] Lymphocytes/100 WBC (Bld) 10.9 % Normal . [facility] Comment on above: Performed By: #### C BC, ESR #### [address] MCH (RBC) [Entitic mass] 29.5 pg Normal 27.5-35.2 [facility] Comment on above: Performed By: #### C BC, ESR #### [address] MCV (RBC) [Entitic vol] 87.9 fL Normal 83.5-101 [facility] Comment on above: Performed By: #### C BC, ESR #### [address] Mean Corpuscular HGB Conc 33.5 g/dL Normal 32.5-35.6 [facility] Comment on above: Performed By: #### C BC, ESR #### [place] [address] [place] Monocytes (Bld) [#/Vol] 0.6 10*3/uL Normal 0.0-0.8 [facility] Comment on above: Performed By: #### C BC, ESR #### [place] [address] [place] Monocytes/100 WBC (Bld) 7.5 % Normal . [facility] Comment on above: Performed By: #### C BC, ESR #### [address] [place] [address] [place] Neutrophils (Bld) [#/Vol] 6.0 10*3/uL Normal 1.8-7.7 [facility] Comment on above: Performed By: #### C BC, ESR #### [address] Neutrophils/100 WBC (Bld) 76.9 % Normal . [facility] Comment on above: Performed By: #### C BC, ESR #### [address] NRBC% 0.1 /100{WBC} Normal 0-0.5 [facility] Comment on above: Performed By: #### C BC, ESR #### [address] Platelet mean volume (Bld) [Entitic vol] 7.8 fL Normal 6.6-10.1 [facility] Comment on above: Performed By: #### C BC, ESR #### [address] Platelets (Bld) [#/Vol] 288 10*3/uL Normal 150-450 [facility] Comment on above: Performed By: #### C BC, ESR #### [address] RBC (Bld) [#/Vol] 4.01 10*6/uL Normal 3.90-5.60 [facility] Comment on above: Performed By: #### C BC, ESR #### [address] WBC (Bld) [#/Vol] 7.8 10*3/uL Normal 4.1-10.5 [facility] Comment on above: Performed By: #### C BC, ESR #### [address] Comprehensive Metabolic Pane laxmi 10-14-2023 Albumin [Mass/Vol] 3.3 g/dL Low 3.5-5.7 [facility] Comment on above: Performed By: #### C BC, ESR #### [address] Albumin/Globulin [Mass ratio] 1.4 {ratio} Normal [facility] Comment on above: Performed By: #### C BC, ESR #### [address] ALP [Catalytic activity/Vol] 59 U/L Normal 34-104 [facility] Comment on above: Performed By: #### C BC, ESR #### [address] ALT [Catalytic activity/Vol] 17 U/L Normal 7-52 [facility] Comment on above: Performed By: #### C BC, ESR #### [address] Anion gap [Moles/Vol] 10.6 mmol/L Normal 6.0-15.0 [facility] e [facility] Comment on above: Performed By: #### C BC, ESR #### [address] AST [Catalytic activity/Vol] 16 U/L Normal 13-39 [facility] Comment on above: Performed By: #### C BC, ESR #### [address] Bilirubin [Mass/Vol] 0.5 mg/dL Normal 0.3-1.0 [facility] Comment on above: Performed By: #### C BC, ESR #### [address] Calcium [Mass/Vol] 8.2 mg/dL Low 8.6-10.3 [facility] Comment on above: Performed By: #### C BC, ESR #### [place] [address] [place] Chloride [Moles/Vol] 106 mmol/L Normal 98-107 [facility] Comment on above: Performed By: #### C BC, ESR #### [address] CO2 [Moles/Vol] 28.5 mmol/L Normal 21.0-31.0 [facility] Comment on above: Performed By: #### C BC, ESR #### [facility] [address] Creatinine [Mass/Vol] 1.61 mg/dL High 0.70-1.30 [facility] Comment on above: Performed By: #### C BC, ESR #### [place] [address] [place] Creatinine Clr Calc Pharmacy 54.02 Normal [facility] Comment on above: Performed By: #### C BC, ESR #### [facility] [address] [place] [address] [place] GFR/1.73 sq M.predicted MDRD (S/P/Bld) [Vol rate/Area] 46.006 mL/min/{1.73_m2} Normal [facility] Comment on above: Performed By: #### C BC, ESR #### [address] Globulin (S) [Mass/Vol] 2.3 g/dL Normal [facility] Comment on above: Performed By: #### C BC, ESR #### [address] Glucose [Mass/Vol] 220 mg/dL High 70-100 [facility] Comment on above: Result Comment: [place] Glucose Reference Range is dependent on time and content of last meal. Glucose of more than 200 mg/dL in a nonstressed, ambulatory subject supports the diagnosis of Diabetes Mellitus. ADA recommended reference range Performed By: #### C BC, ESR #### [address] Potassium [Moles/Vol] 4.1 mmol/L Normal 3.5-5.1 [facility] Comment on above: Performed By: #### C BC, ESR #### [address] Protein [Mass/Vol] 5.6 g/dL Low 6.4-8.9 [facility] Comment on above: Performed By: #### C BC, ESR #### [facility] [address] Sodium [Moles/Vol] 141 mmol/L Normal 136-145 [facility] Comment on above: Performed By: #### C BC, ESR #### [facility] [address] Urea nitrogen [Mass/Vol] 31 mg/dL High 7-25 [facility] Comment on above: Performed By: #### C BC, ESR #### [facility] [address] ECG 12 lead ECGon 10-14-2023 ECG 12 lead ECG [facility] [place] [address] [place] [address] Electrocardiograph Report Signed Patient: Italia Allen MR#: [id number] : 1955 Acct:[id number] Age/Sex: 68 / M ADM Date: 10/14/23 Loc: Room: [address] [place] [address] Type: DIS IN Attending Dr: Yovanny Rivera [...] previous ECGs available Confirmed by Diogenes Talley ([id number]) on 10/16/2023 10:19:42 PM Referred By: Electronically Signed By: Diogenes Talley Transcribed By: MUS Signed By Diogenes Talley MD 10/16/237 Normal [facility] Erythrocyte Sedimentation Ra clarice 10-14-2023 ESR (Bld) [Velocity] 22 mm/h High 0-19 [facility] Comment on above: Result Comment: PERF ORMED BY: [place] [address] PATHOLOGIST INCOME TAX INVESTIGATOR WOLFGANG JOHNSON M.D. Performed By: #### C BC, ESR #### [facility] [address] Erythrocyte sedimentation ra te by Photometric methodOrdered By: Alondra Gonzales on 10-14-2023 ESR Photometric method (Bld) [Velocity] 22 mm/hr High 0-19 [facility] Glucose Poct Glucometerson 0 10-14-2023 Glucose [Mass/Vol] 306 mg/dL Normal [facility] Comment on above: Result Comment: [facility] Glucose Reference Range is dependent on time and content of last meal. Glucose of more than 200 mg/dL in a nonstressed, ambulatory subject supports the diagnosis of Diabetes Mellitus. PERFORMED BY: [place] [address] PATHOLOGIST INCOME TAX INVESTIGATOR WOLFGANG JOHNSON M.D. Performed By: #### G LULS #### Point of Care testing , Glucose [Mass/Vol] 221 mg/dL Normal [facility] Comment on above: Result Comment: [facility] Glucose Reference Range is dependent on time and content of last meal. Glucose of more than 200 mg/dL in a nonstressed, ambulatory subject supports the diagnosis of Diabetes Mellitus. PERFORMED BY: [place] [address] PATHOLOGIST INCOME TAX INVESTIGATOR WOLFGANG JOHNSON M.D. Performed By: #### G LULS #### Point of Care testing , Magnesiumon 10-14-2023 Magnesium [Mass/Vol] 1.7 mg/dL Low 1.9-2.7 [facility] Comment on above: Performed By: #### C BC, ESR #### [facility] [address] [place] [address] [place] Partial Thromboplastin Timeo n 10-14-2023 aPTT Coag (Bld) [Time] 35.7 s Normal 25.1-36.5 Th e [facility] Comment on above: Result Comment: A he matocrit value greater than 55% may lead to inaccurate results in coagulation testing. Patients having hematocrit values >55% require a special collection tube for coagulation studies. Please contact the laboratory at [phone] for redraw instructions. PERFORMED BY: [place] [id number] PATHOLOGIST INCOME TAX INVESTIGATOR WOLFGANG JOHNSON M.D. Performed By: #### P TT #### [place] [id number] [place] aPTT Coag (Bld) [Time] 31.1 s Normal 25.1-36.5 Th e [facility] Comment on above: Result Comment: A he matocrit value greater than 55% may lead to inaccurate results in coagulation testing. Patients having hematocrit values >55% require a special collection tube for coagulation studies. Please contact the laboratory at [phone] for redraw instructions. PERFORMED BY: [place] [address] PATHOLOGIST INCOME TAX INVESTIGATOR WOLFGANG JOHNSON M.D. Performed By: #### C BC, ESR #### [place] [id number] [place] Prothrombin Time INRon 10-13 INR Coag (PPP) [Relative time] 1.1 {INR} Normal [facility] [facility] Comment on above: Result Comment: [...] Performed By: #### C BC, ESR #### [place] [id number] [place] PT Coag (PPP) [Time] 13.0 s High 9.0-12.9 [facility] Comment on above: Result Comment: A he matocrit value greater than 55% may lead to inaccurate results in coagulation testing. Patients having hematocrit values >55% require a special collection tube for coagulation studies. Please contact the laboratory at [phone] for redraw instructions. Performed By: #### C BC, ESR #### [place] [id number] [place] Troponin I High Sensitivityo n 10-14-2023 Troponin I High Sensitivity 1682.8 pg/mL Off scale high 0.0-20.0 [facility] Comment on above: Result Comment: Crit ical Result : Called to and read back by: JAREK REESE at: 10/14/2023 12:42:52 by:ADRIENNE PERFORMED BY: [place] [address] PATHOLOGIST INCOME TAX INVESTIGATOR WOLFGANG JOHNSON M.D. Performed By: #### C BC, ESR #### [address] Troponin I.cardiac [Mass/vol ume] in Serum or Plasma by Detection limit <= 0.01 ng/Ordered By: Alondra Gonzales on 10-14-2023 Troponin I.cardiac DL <= 0.01 ng/mL [Mass/Vol] 1682.8 pg/mL High 0.0-20.0 [facility] Comment on above: Critical Result : Ca lled to and read back by: JAREK REESE at: 10/14/2023 12:42:52 by:ADRIENNE XR chest 1V portableon 10-13 XR chest 1V portable [facility] Main [place] [address] [place] [address] XRay Report Signed Patient: Italia Allen MR#: [id number] : 1955 Acct:[id number] Age/Sex: 68 / M ADM Date: 10/14/23 Loc: Room: [address] [place] [address] Type: ADM IN Attending Dr: Alondra Gonzales [...] Andrés Hardwick M.D.10/14/2023 12:13 PM Dictation Location: [place] [address] Transcribed By: [facility] 10/14/23 1213 Dictated By: Andrés Hardwick II, MD 10/14/23 1212 Signed By: 10/14/23 1213 Normal [facility] Vital Signs Date Time Vital Sign Value Performing Clinician Facility 11-29-2023 13:55-0400 Body height 177.8 cm Fatemeh Knox DPM Work Phone: [facility] 11-29-2023 13:55-0400 Body mass index (BMI) [Ratio] 35.87 kg/m2 Fatemeh Jared DPM Work Phone: [facility] 11-29-2023 13:55-0400 Body weight 113.4 kg Fatemeh Jared DPM Work Phone: [facility] 11-22-2023 15:42-0400 Blood Pressure Location [facility] 11-22-2023 15:42-0400 Diastolic blood pressure 60 mm[Hg] [facility] 11-22-2023 15:42-0400 Heart rate 76 /min [facility] 11-22-2023 15:42-0400 Respiratory rate 16 /min [facility] 11-22-2023 15:42-0400 Systolic blood pressure 110 mm[Hg] [facility] 10-16-2023 15:57-0400 Body temperature 37.[address] [facility] Comment on above: Result Comment: NOTE: Patient Results ar e Not Corrected for Temperature Performed By: #### 1 [id number] #### ERICA Tam ([id number]) [facility] [address] [place] [id number] 10-16-2023 15:57-0400 SaO2% (BldA) [Mass fraction] 95 % [facility] Comment on above: Performed By: #### 71794-4 #### ERICA Tam ([id number]) [facility] ([facility]) [address] [place] [address] 10-15-2023 23:16-0400 Body temperature 98 [degF] [facility] 10-15-2023 23:16-0400 Diastolic blood pressure 73 mm[Hg] [facility] 10-15-2023 23:16-0400 Heart rate 104 /min [facility] 10-15-2023 23:16-0400 Respiratory rate 18 /min [facility] 10-15-2023 23:16-0400 SaO2% (BldA) [Mass fraction] 92 % [facility] 10-15-2023 23:16-0400 Systolic blood pressure 153 mm[Hg] [facility] 10-15-2023 20:00-0400 Inhaled oxygen flow rate 2 L/min [facility] 10-15-2023 14:51-0400 Body height 177.8 cm [facility] 10-15-2023 06:00-0400 Body weight 112.2 kg [facility] Encounters Encounter Date Encounter Type Care Provider Facility Start: 12-04-2023 End: 12-04-2023 ambulatory Marine X Cherrie Facility:[facility] Start: 12-04-2023 End: 12-04-2023 Patient encounter procedure Marine X Orzech [facility] Start: 12-03-2023 ambulatory Marine Grier Facility: [facility] Start: 11-29-2023 End: 11-29-2023 Bamboo flowsheet Fatemeh Coleman DPM Work Phone: [facility] Start: 11-29-2023 End: 11-29-2023 Bamboo flowsheet Fatemeh Coleman DPM Work Phone: [facility] Start: 11-29-2023 End: 11-29-2023 ambulatory FATEMEH COLEMAN Not Available Start: 11-29-2023 End: 11-29-2023 Office outpatient new 30 minutes Fatemeh Coleman DPM Work Phone: [facility] Comment on above: Dermatophytosis of n ail (Primary Dx); Dystrophic nail; Angiopathy, diabetic (CMS/HCC); Diabetic polyneuropathy associated with type 2 diabetes mellitus ([facility]/HCC) Start: 11-22-2023 End: 11-22-2023 ambulatory Marine Grier Facility:[facility] Start: 11-22-2023 End: 11-22-2023 Patient encounter procedure Marine Ryderelli [facility] Start: 11-13-2023 End: 11-13-2023 ambulatory [facility] Start: 11-02-2023 End: 11-02-2023 ambulatory [facility] Start: 10-15-2023 End: 10-24-2023 Encounter for preprocedural cardiovascular examination [facility] Start: 10-15-2023 End: 10-24-2023 Evaluation and management of inpatient [facility] Start: 10-14-2023 End: 10-15-2023 Evaluation and management of inpatient [facility] Work Phone: Procedures Date Procedure Procedure Detail Performing Clinician Start: 10-15-2023 Start: 10-15-2023 [facility]io Start: 10-15-2023 Ultrasonography of b ilateral kidneys Start: 10-14-2023 Plain chest X-ray Cholecystectomy Marine Ryderdesi sandrita Tonsillectomy Marine Efrainsobia Plan of Treatment Date Care Activity Detail Author Start: 03-13-2024 End: 03-13-2024 Patient encounter procedure 03/13/2024 2:15 PM EST Procedure Visit [facility] [address] [place] [id number] Fatemeh Coleman DPM [address] [place], [place] [id number] [facility] Start: 10-21-2023 Influenza vaccination Influenza Vaccine (#1) [facility] Start: 10-15-2023 [facility] Start: 10-15-2023 [facility] Start: 10-14-2023 [facility] Start: 10-14-2023 Hospital admission [facility] Start: 10-14-2023 Referral to business services assistant [facility] Start: 08-02-2019 Pneumococcal Vaccine: 65+ Years (2 of 2 - PCV) Pneumococcal Vaccine: 65+ Years (2 of 2 - PCV) [facility] Start: 1955 Screening for malignant neoplasm of colon [facility] Patient Education Heart Failure, Adult (DC) [facility] Work Phone: Immunizations Immunization Date Immunization Notes Care Provider Fa pettyty 03-05-2021 Influenza, injectabl e, Madin Casi Canine Kidney, preservative free, quadrivalent Fatemeh Coleman DPM Work Phone: [facility] 03-05-2021 influenza virus vacc ine, unspecified formulation Fatemeh Coleman DPM Work Phone: [facility] 12-21-2019 influenza, injectabl e, quadrivalent, contains preservative Fatemeh Coleman DPM Work Phone: [facility] 11-30-2017 Influenza, injectabl e, Madin [place] Canine Kidney, preservative free, quadrivalent Fatemeh Coleman DPM Work Phone: [facility] 11-30-2017 pneumococcal polysaccharide vaccine, 23 valent Fatemhe Coleman DPM Work Phone: [facility] Payers Date Payer Category Payer Self-pay 2020 Medicare MEDICARE MEDICAR E PART B [id number] 2020-[place] [address] Medicare [id number] 2020 Medicare [id number] 1955 Unknown [id number] 4 1955 Unknown [id number] 5 1955 Unknown [id number] 5 1955 Unknown [id number] 9 1955 Unknown [id number] 1955 Unknown [id number] 1955 Unknown [id number] Unknown [employer]/LINK [id number] Unknown [id number] Social History Date Type Detail Facility Start: 10-14-2023 End: 11-22-2023 Tobacco smoking status NHIS Never smoked tobacco (finding) [facility] Start: 1955 Sex Assigned At Male F [facility] Tobacco smoking status Ex-smoker (finding ) [facility] Tobacco smoking status Never [facility] Start: 11-29-2023 Sex Assigned At Male F [facility] Tobacco smoking stat NHIS Tobacco smoking consumption [...] 11-22-2023 Functional Status N/A [facility] 10-15-2023 Functional status Patient at Baseline [facility] Work Phone: Mental Status Date Assessment Result Facility 10-15-2023 Cognitive function Cognitive Sta tus Patient at Baseline [facility] Work Phone: Clinical Notes 10-14-2023 to 11-29-2023 Fatemeh Coleman, RADHAM - 11/29/2023 1:45 PM EDTPatient Instructions Note Date & Type Note Facility 11-29-2023 History of Presen t illness Narrative Images from the original note were not included. Subjective Patient ID: Italia Allen is a 68 y.o. 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, unable [...] Fatemeh Coleman DPM documented in this encounter [place] [address]-10-2024 Instructions Fatemeh Coleman DPM - 11/29/2023 1:45 PM EDT As noted documented in this encounter [facility] 10-15-2023 Discharge summary Note Date/Time October 15, 2023 6:18pm [place] [address] Discharge Summary Signed Patient: Italia Allen MR#: [id number] : 1955 Acct:[id number] Age/Sex: 68 / M Adm Date: 4 Loc: Room: [address] [place] [address]: Yovanny Rivera MD Copies to: [...] II, HTN, obesity, HFpEF who presentsto the [place] emergency department with complaints of deep pain [...] recommended for transfer to tertiary care facility ([facility] under Dr. Galdamez) for likely CABG. Patient [...] % (Auto) 74.1, Lymph % (Auto) 11.9, [place] % (Auto) 9.3, Eos % (Auto) 3.7, Baso % (Auto) 1.0, Nucleat RBC Rel Count 0.1, Neut # (Auto) 7.3, Lymph # (Auto) 1.2, [place] # (Auto) 0.9 H, Eos # (Auto) [...] signed by Yovanny Rivera MD> 10/15/23 1828 [facility] Work Phone: 1(996) 611-900808-26-2024 Progress note Author Ann Plata [facility] October 15, 2023 12:58pm Note Date/Time October 15, 2023 12 :57pm [facility] [address] [place] [address] Cardiology Progress Note Signed Patient: Italia Allen MR#: [id number] : 1955 Acct:[id number] Age/Sex: 68 / M Adm Date: 4 Loc: Room: [address] [place] [address] Type: ADM IN Attending Dr: Yovanny Rivera [...] MPV Neut % (Auto) Lymph % (Auto) [place] % (Auto) Eos % (Auto) Baso % (Auto) Nucleat RBC Rel Count Neut # (Auto) Lymph # (Auto) [place] # (Auto) Eos # (Auto) Baso # [...] % (Auto) 74.1 Lymph % (Auto) 11.9 [place] % (Auto) 9.3 Eos % (Auto) 3.7 Baso % (Auto) 1.0 Nucleat RBC Rel Count 0.1 Neut # (Auto) 7.3 Lymph # (Auto) 1.2 [place] # (Auto) 0.9 H Eos # (Auto) [...] MPV Neut % (Auto) Lymph % (Auto) [place] % (Auto) Eos % (Auto) Baso % (Auto) Nucleat RBC Rel Count Neut # (Auto) Lymph # (Auto) [place] # (Auto) Eos # (Auto) Baso # [...] signed by MD Ann Plata> 10/15/23 1258 [facility] Work Phone: 1(394) 104-578408-26-2024 [facility] History and physical note Author Alondra Gonzales [facility] October 14, 2023 3:57pm Note Date/Time October 14, 2023 9: 54am [facility] [address] [place] [address] Hospitalist H&P Signed Patient: Italia Allen MR#: [id number] : 1955 Acct:[id number] Age/Sex: 68 / M Adm Date: 4 Loc: Room: [address] [place] [address] Type: ADM IN Attending Dr: Alondra Gonzales [...] He was brought as a transfer from [place] ED. As per ED note at [place],patient presented to the ED at [place] with chest pain, described as deep pain [...] or diaphoresis. He showed activity ED at [place] with oxygen saturation of 70% he was noticed to have bilateral lower extremity edema and he was started on BiPAP as well as was given IV Lopressor 1 dose and was started on heparin drip. His troponin wasuptrending EKG showed sinus tachycardia with no ischemic changes as per [place] records(report not actual tracing). Labs: CBC showed [...] done during my encounter with the pt [facility] Medical History Biceps muscle tear Cholecystectomy [...] 4 Documented By: Alondra Gonzales MD 10/14/23 0974 Signed By: <Electronically signed by Alondra Gonzales MD> 10/14/23 0445 [facility] Work Phone: 1(766) 179-789408-25-2024 Consult note Author Ann Plata [facility] October 14, 2023 2:55pm Note Date/Time October 14, 2023 2: 51pm [facility] [address] [place] [address] Cardiology Consult Note Signed Patient: Italia Allen MR#: [id number] : 1955 Acct:[id number] Age/Sex: 68 / M Adm Date: 4 Loc: Room: 1L8909-0 Type: ADM IN Attending Dr: Alondra Gonzales MD Copies to: NON STAFF MD Ann Gordillo MD~ Cardiology HPI History of Present Illness Consult Date: 10/14/23 Reason for Consult: Cardiac consultation requested for evaluation for shortness of breath chest heaviness and acute coronary syndrome HPI: Mr. Allen is a 68 year old male who denies prior cardiac history presented to [place] emergency room complaining of increasing shortness of breath and chest heaviness. He was evaluated and felt to have evidence of acute coronary syndrome and heart failure and arrangement was made to transfer the patient to [facility] for further care. The patient reports historyof longstanding diabetes mellitus and hypertension. He report over the last fewweeks he has been describing decreased exercise tolerance and dyspnea on exertion. He has seen his family physician on several occasion with adjustment of his medication but without improvement. Prior to presentation to the emergency room at [place] he developed worsening shortness of breath and [...] of system is negative other mentioned above [facility] Medical History Biceps muscle tear Cholecystectomy [...] (Auto) 0.9 L 0.9 L (1.00-4.8) x10E3/uL [place] # (Auto) 0.6 0.6 (0.0-0.8) x10E3/uL Eos [...] <Electronically signed by MD Ann Plata> 10/14/23 5370 [facility] Work Phone: Evaluation + Plan note Future Appointments Appointment Date:11/29/2023 03:00:00 PM Scheduled Provider: Location:[facility] Appointment Type:URO Nurse Visit Appointment Date:12/04/2023 03:00:00 PM Scheduled Provider:RADHA Grier APRN, [place] [facility] Location:[facility] Appointment Type:URO Office Visit [facility] Evaluation note* Diagnosis Onset Date Resolution Status ACS (acute coronary syndrome) acute Acute hypoxic respiratory failure acute Systolic CHF, acute on chronic acute [facility] Work Phone: Evaluation note* Diagnosis Dermatophytosis of nail- Primary Dystrophic nail Other specified disease of nail Angiopathy, diabetic (CMS/HCC) Type II or unspecified type diabetes mellitus with peripheral circulatory disorders, not stated as uncontrolled Diabetic polyneuropathy associated with type 2 diabetes mellitus (CMS/HCC) [facility] Narrative No data available for this section [facility] Hospital Discharge instructions Additional Instructions Full code [facility] Work Phone: Hospital Discharge instructions No data available for this section [facility] Progress note No data available for this section [facility] Chief Complaint and Reason for [...] and content) DATE CREATED AUTHOR 10/19/2023 [facility] DATE CREATED AUTHOR AUTHOR'S ORGANIZ ATION 11/10/2023 [facility] DATE CREATED AUTHOR AUTHOR'S ORGANIZ ATION 11/15/2023 [facility] DATE CREATED AUTHOR AUTHOR'S ORGANIZ ATION 11/16/2023 [facility] DATE CREATED AUTHOR AUTHOR'S ORGANIZ ATION 12/01/2023 [facility] EPIC DATE CREATED AUTHOR AUTHOR'S ORGANIZ ATION 12/07/2023 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 Haven't been trimmed since last January. PCP: [facility] 10/2023, A1C: ?, BS: n/a FOR [...] BE BASED ON THE PRIMARY CLINICAL RECORDS. [facility]. provides no warranty or guarantee of the accuracy or completeness of information in this document.
[2023-12-08] MEDS: CARVEDILOL 25 MG TABLET PO (21:21)
[2023-12-08] MEDS: HEPARIN SODIUM (PORCINE) 5,000 UNIT/ML VIAL 5000 UNIT SUBQ (21:21)
[2023-12-08] MEDS: INSULIN ASPART 300 UNIT/3 ML PEN SUBQ (21:25)
[2023-12-08 21:32] LABS: Glucometer 200 mg/dL (74-106)
[2023-12-08] MEDS: ACETAMINOPHEN 325 MG TABLET 650 MG PO (21:36)
[2023-12-09] VITALS (18 sets, daily range): BP systolic 111–153; BP diastolic 66–79; PULSE 70–95; TEMP 36.6–36.8; O2SAT 92–98
--- NOTE | 2023-12-09 04:47 | RESP.RT ---
titrated down to 3L
[2023-12-09] MEDS: HEPARIN SODIUM (PORCINE) 5,000 UNIT/ML VIAL 5000 UNIT SUBQ ×3 (05:19→21:14)
[2023-12-09] MEDS: ACETAMINOPHEN 325 MG TABLET 650 MG PO ×2 (05:20→14:30)
[2023-12-09 05:44] LABS: Basophils Absolute Auto 0.1 10^3/uL (0.0-0.1); Basophils Percent Auto 0.6 % (0.2-2.0); Eosinophils Absolute Auto 0.3 10^3/uL (0.0-0.7); Eosinophils Percent Auto 3.3 % (0.9-7.0); Hematocrit 29.2 % (42.0-54.0); Immature Granulocytes Abs Auto 0.03 10^3/uL (0.00-0.03); Immature Granulocytes Pct Auto 0.3 % (0.0-0.5); Lymphocytes Absolute Auto 0.9 10^3/uL (1.2-3.8); Lymphocytes Percent Auto 8.7 % (20.5-60.0); Mean Corpuscular HGB Conc 30.8 g/dL (29.9-35.2); Mean Corpuscular Hemoglobin 28.7 pg (25.9-34.0); Mean Platelet Volume 9.8 fL (9.5-13.5); Monocytes Absolute Auto 0.8 10^3/uL (0.3-0.8); Monocytes Percent Auto 7.5 % (1.7-12.0); Neutrophils Percent Auto 79.6 % (43.0-75.0); Platelet Count 337 10^3/uL (150-450); Red Blood Count 3.14 10^6/uL (4.70-6.10); Red Cell Distribution Width 14.9 % (11.0-15.0)
[2023-12-09 06:10] LABS: Alanine Aminotransferase 40 U/L (16-63); Albumin Globulin Ratio 0.8; Albumin Level 2.6 g/dL (3.4-5.0); Alkaline Phosphatase 75 U/L (46-116); Anion Gap 11.5; Aspartate Amino Transferase 26 U/L (15-37); BUN Creatinine Ratio 21.2; Bilirubin Total 0.3 mg/dL (0.2-1.0); Calcium 8.7 mg/dL (8.5-10.1); Carbon Dioxide 28.3 mmol/L (21.0-32.0); Chloride 108 mmol/L (98-107); Estimated GFR (African America 41 (>=60 mL/min/1.73m^2); Estimated GFR (Non-African Ame 34 (>=60 mL/min/1.73m^2); Globulin 3.4 g/dL; Glucose 144 mg/dL (74-106); Potassium 3.8 mmol/L (3.5-5.1); Sodium 144 mmol/L (136-145)
[2023-12-09] MEDS: INSULIN DETEMIR 300 UNIT/3 ML INSULN.PEN 60 UNIT SUBQ (08:15)
[2023-12-09] MEDS: INSULIN ASPART 300 UNIT/3 ML PEN SUBQ ×3 (08:15→21:16)
[2023-12-09] MEDS: CARVEDILOL 25 MG TABLET PO ×2 (08:26→21:14)
[2023-12-09] MEDS: ATORVASTATIN CALCIUM 40 MG TABLET 80 MG PO (08:27)
[2023-12-09] MEDS: FUROSEMIDE 40 MG/4 ML VIAL IVP (08:27)
[2023-12-09] MEDS: SERTRALINE HCL 50 MG TABLET 25 MG PO (08:27)
[2023-12-09] MEDS: ISOSORBIDE MONONITRATE 30 MG TAB.ER.24H PO (08:27)
[2023-12-09] MEDS: PRASUGREL HCL 10 MG TABLET PO (08:27)
[2023-12-09] MEDS: ASPIRIN 81 MG TAB.CHEW PO (08:27)
--- NOTE | 2023-12-09 10:22 | P.HP_ITS ---
HPI H&P: HPI History of Present Illness Chief complaint: DIFF BREATHING; ACUTE CHF, FLUID OVERLOAD Narrative: 68-year-old male with recent percutaneous intervention for non-ST elevation [place] 2 months ago presented to ER yesterday with 1 day history of shortness of breath, lower extremity edema. Upon arrival in ER, patient was tachypneic and short of breath at rest with pulse ox as low as 85% on room air. Patient does not use home oxygen at home. Workup revealed evidence of volume overload with elevated BNP, Rales and crackles on lung examination and patient was admitted for acute respiratory failure with hypoxia secondary to acute on chronic diastolic heart failure. Patient is unsure of his medications but reports compliance to his medications. However, he is not compliant with his diet and does not watch what he eats. He was very rude and got upset because he was placed on a cardiac diet upon admission. Patient was treated with IV Lasix 40 twice daily but did not have significant urine output on it and is only the negative balance of 500 ml. He is a still hypoxic and requiring oxygen supplementation and experiencing dyspnea on exertion. He is comfortable at rest and denies shortness of breath at rest. Opioid HPI Opioid Management Most Recent Pain and Opioid Data: Last Pain Scale 0 12/09/23 09:44 12/09/23 Last Pain Assessment 12/09/23 09:44 Last MAR Pain Assessment 12/09/23 06:08 Last ORT Total Score 0 12/08/23 19:58 12/08/23 Last ORT Risk Category Low Risk 12/08/23 19:58 12/08/23 Review of Systems ROS Status of ROS 10 or more systems reviewed and unremark able except as noted in history and below [facility] Medical History (Updated 12/09/23 @ 10:30 by Shaikh David MD) CAD (coronary artery disease) ?I25.10 - Atherosclerotic heart disease of [place] coronary artery without angina pectoris (ICD-10) Diabetes ?E11.9 - Type 2 diabetes mellitus without complications (ICD-10) Hypertension ?I10 - Essential (primary) hypertension (ICD-10) CHF (congestive heart failure) ?I50.9 - Heart failure, unspecified (ICD-10) Surgical History (Updated 12/08/23 @ 20:19 by Maya Silva) Hx of cholecystectomy ?Z90.49 - Acquired absence of other specified parts of digestive tract (ICD- 10) H/O heart artery stent ?Z95.5 - Presence of coronary angioplasty implant and graft (ICD-10) Family History (Updated 12/08/23 @ 20:17 by Maya Silva) Mother Family history of CHF (congestive heart failure) Family history of diabetes mellitus Father Family history of cancer Social History (Updated 12/08/23 @ 20:18 by Maya Silva) Within the past year, how often did you have a drink containing alcohol: monthly or less Smoking status: Never smoker Non-prescribed substance use: denies use Previous occupational history: retired Highest level of school completed/degree received: high school graduate Are you now , , , , never or living with a partner: In a typical week, how many times do you talk on the telephone with family, friends, or neighbors: 3 or more times per week How often do you get together with friends or relatives: 3 or more times per week How often do you attend episcopal or methodist services: never Little interest or pleasure in doing things: not at all Feeling down, depressed, or hopeless: not at all Feel stressed/tense/nervous/anxious/difficulty sleeping: not at all Do you think of yourself as: straight/heterosexual Gender Identity: male Meds Home Medications and Allergies Home Medications ?Medication ?Instructions ?Recorded ?Confirmed ?Type glipizide 10 mg tablet 10 mg PO BID 10/13/23 12/08/23 History insulin glargine 100 unit/mL (3 60 unit subcut DAILY 10/13/23 12/08/23 History mL) subcutaneous pen (Lantus Solostar U-100 Insulin) lisinopril 40 mg tablet 40 mg PO DAILY 10/13/23 12/08/23 History aspirin 81 mg chewable tablet 81 mg PO DAILY 11/19/23 12/08/23 History (Aspirin Childrens) atorvastatin 80 mg tablet 80 mg PO DAILY 11/19/23 12/08/23 History bumetanide 2 mg tablet 4 mg PO DAILY 11/19/23 12/08/23 History carvedilol 25 mg tablet 25 mg PO Q12H 11/19/23 12/09/23 History isosorbide mononitrate 30 mg 30 mg PO DAILY #14 tabs 11/19/23 12/08/23 Rx tablet,extended release 24 hr nitroglycerin 0.4 mg sublingual 0.4 mg sublingual Q5M PRN chest 11/19/23 12/08/23 History tablet pain prasugrel 10 mg tablet 10 mg PO DAILY 11/19/23 12/08/23 History sertraline 50 mg tablet 25 mg PO DAILY 11/19/23 12/08/23 History Allergies Allergy/AdvReac Type Severity Reaction Status Date / Time No Known Drug Allergies Allergy Verified 10/13/23 18:14 Exam Constitutional Vital Signs, click to edit/add: Last Vital Signs Temp 98.1 F 12/09/23 07:41 Pulse 77 12/09/23 10:00 Resp 18 12/09/23 07:41 BP 152/78 H 12/09/23 07:41 Pulse Ox 94 L 12/09/23 07:41 O2 Del Method Nasal Cannula 12/09/23 07:41 O2 Flow Rate 2.5 12/09/23 07:41 Common normals: no apparent distress and oriented x3 General appearance: comfortable Nutritional appearance: obese HENMT Common normals: normocephalic and head/scalp atraumatic Respiratory Common normals: normal respiratory effort and no use of accessory muscles Effort & inspection: able to speak in complete sentences Auscultation: rales bilateral and diffuse Cardio Common normals: regular rate, regular rhythm, S1 normal heart sound and S2 normal heart sound GI Common normals: Normal to inspection, nondistended, normoactive bowel sounds present, soft to palpation, non-tender and no hepatosplenomegaly Extremity Common normals: full ROM General: edema (+2 LE edema) Neuro Common normals: oriented x3, moves all extremities and no focal motor deficits Psych Common normals: mental status grossly normal, thought process normal, denies yolanda icidal ideation and denies suicidal ideation Results Labs Labs: Short CBC 12/08/23 12/09/23 Range/Units 16:00 05:16 WBC 10.9 10.0 (4.0-11.0) 10^3/uL Hgb 8.8 L 9.0 L (14.0-18.0) g/dL Hct 28.0 L 29.2 L (42.0-54.0) % Plt Count 340 337 (150-450) 10^3/uL BMP 12/08/23 12/09/23 16:00 05:16 Sodium 142 144 Potassium 3.7 3.8 Chloride 108 H 108 H Carbon Dioxide 24.1 28.3 BUN 44.0 H 42.0 H Creatinine 2.22 H 1.98 H Glucose 248 H 144 H Calcium 8.2 L 8.7 Liver Function 12/08/23 12/09/23 Range/Units 16:00 05:16 Total Bilirubin 0.3 0.3 (0.2-1.0) mg/dL AST 20 26 (15-37) U/L ALT 32 40 (16-63) U/L Alkaline Phosphatase 80 75 (46-116) U/L Albumin 2.4 L 2.6 L (3.4-5.0) g/dL Assessment and Plan Assessment and Plan (1) Acute on chronic diastolic (congestive) heart failure: Assessment and Plan: Still hypoxic and volume overload. Sup optimal response to IV Lasix. Switch to IV bumex 3 q12. Monitor I/O, daily weight. Hold ECHO as I suspect he likely had recent ECHO at in [place]. Obtain records from recent hospitalization at . (2) Acute respiratory failure with hypoxia: Assessment and Plan: Due to acute on chronic diastolic HF. Wean of O2 as tolerated. C/w IV diuretics. (3) HÉCTOR (acute kidney injury): Assessment and Plan: Baseline Cr is 1.7 Presented with Cr of 2.2 Improved with diuresis. Likely cardiorenal from vascular congestion/fluid overload. C/w diuresis, monitor UO closely, monitor cr closely. (4) CAD (coronary artery disease): Assessment and Plan: Recent PCI, 2 stents placed. Obtain records. C/w ASA, effient, lipitor. No active CP. Troponin x 2 negative. Qualifiers: Coronary Disease-Associated Artery/Lesion type: [place] artery [place] vs. transplanted heart: [place] heart Associated angina: without angina Qualified Code(s): I25.10 - Atherosclerotic heart disease of [place] coronary artery without angina pectoris (5) Diabetes: Assessment and Plan: Hold Glipizide. C/w basal/bolus insulin. 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 IV hyralazine as needed. This could be due to fluid overload. C/w IV diuresis Qualifiers: Hypertension type: primary hypertension Qualified Code(s): I10 - Essential (primary) hypertension (7) CKD stage 3 due to type 2 diabetes mellitus: Assessment and Plan: Prsented with HÉCTOR. Monitor renal hx while on IV bumex. Monitor UO closely
[2023-12-09 11:49] LABS: Glucometer 157 mg/dL (74-106)
[2023-12-09] MEDS: OXYCODONE HCL 5 MG TABLET PO (14:30)
[2023-12-09 16:52] LABS: Glucometer 108 mg/dL (74-106)
[2023-12-09] MEDS: BUMETANIDE 1 MG/4 ML VIAL 4 MG IVP (17:59)
[2023-12-09 21:20] LABS: Glucometer 151 mg/dL (74-106)
[2023-12-10] VITALS (19 sets, daily range): BP systolic 110–144; BP diastolic 54–70; PULSE 66–98; TEMP 36.9–37.2; O2SAT 65–97
[2023-12-10 05:32] LABS: Basophils Absolute Auto 0.1 10^3/uL (0.0-0.1); Basophils Percent Auto 0.6 % (0.2-2.0); Eosinophils Absolute Auto 0.4 10^3/uL (0.0-0.7); Eosinophils Percent Auto 3.8 % (0.9-7.0); Hematocrit 28.2 % (42.0-54.0); Hemoglobin 8.8 g/dL (14.0-18.0); Immature Granulocytes Abs Auto 0.05 10^3/uL (0.00-0.03); Immature Granulocytes Pct Auto 0.5 % (0.0-0.5); Lymphocytes Absolute Auto 0.9 10^3/uL (1.2-3.8); Lymphocytes Percent Auto 9.6 % (20.5-60.0); Mean Corpuscular HGB Conc 31.2 g/dL (29.9-35.2); Mean Corpuscular Hemoglobin 28.8 pg (25.9-34.0); Mean Corpuscular Volume 92.2 fL (80.0-94.0); Mean Platelet Volume 9.6 fL (9.5-13.5); Monocytes Absolute Auto 0.7 10^3/uL (0.3-0.8); Monocytes Percent Auto 7.6 % (1.7-12.0); Neutrophils Absolute Auto 7.5 10^3/uL (1.4-6.5); Neutrophils Percent Auto 77.9 % (43.0-75.0); Platelet Count 331 10^3/uL (150-450); Red Blood Count 3.06 10^6/uL (4.70-6.10); Red Cell Distribution Width 15.3 % (11.0-15.0); White Blood Count 9.6 10^3/uL (4.0-11.0)
[2023-12-10] MEDS: BUMETANIDE 1 MG/4 ML VIAL 4 MG IVP (05:36)
[2023-12-10] MEDS: HEPARIN SODIUM (PORCINE) 5,000 UNIT/ML VIAL 5000 UNIT SUBQ ×3 (05:37→21:28)
[2023-12-10 05:55] LABS: Alanine Aminotransferase 45 U/L (16-63); Albumin Globulin Ratio 0.7; Albumin Level 2.5 g/dL (3.4-5.0); Alkaline Phosphatase 76 U/L (46-116); Anion Gap 10.8; Aspartate Amino Transferase 26 U/L (15-37); BUN Creatinine Ratio 21.6; Bilirubin Total 0.3 mg/dL (0.2-1.0); Calcium 8.5 mg/dL (8.5-10.1); Carbon Dioxide 27.1 mmol/L (21.0-32.0); Chloride 108 mmol/L (98-107); Estimated GFR (African America 39 (>=60 mL/min/1.73m^2); Estimated GFR (Non-African Ame 32 (>=60 mL/min/1.73m^2); Globulin 3.5 g/dL; Glucose 124 mg/dL (74-106); Potassium 3.9 mmol/L (3.5-5.1); Sodium 142 mmol/L (136-145)
[2023-12-10] MEDS: INSULIN DETEMIR 300 UNIT/3 ML INSULN.PEN 60 UNIT SUBQ (08:23)
[2023-12-10] MEDS: ISOSORBIDE MONONITRATE 30 MG TAB.ER.24H PO (08:24)
[2023-12-10] MEDS: PRASUGREL HCL 10 MG TABLET PO (08:24)
[2023-12-10] MEDS: SERTRALINE HCL 50 MG TABLET 25 MG PO (08:24)
[2023-12-10] MEDS: CARVEDILOL 25 MG TABLET PO ×2 (08:24→21:28)
[2023-12-10] MEDS: FLU VACC QS2024(65UP)/MF59C/PF 60 MCG/0.5 ML SYRINGE IM (08:25)
[2023-12-10] MEDS: ASPIRIN 81 MG TAB.CHEW PO (08:25)
[2023-12-10] MEDS: ATORVASTATIN CALCIUM 40 MG TABLET 80 MG PO (08:25)
--- NOTE | 2023-12-10 10:40 | SWNOTE1 ---
Important Message from Medicare reviewed and discussed with patient. Pt. verbalized understanding and signed the form. Original given to patient and copy placed in patient?s chart.
--- NOTE | 2023-12-10 10:40 | SWNOTE1 ---
ZACH met with pt to discuss dc needs. Pt lives at home with his son. Pt is independent with all ADL'S and still drives. Pt does not wear home oxygen and is on 1 liter of oxygen here. Possible need for home oxygen if he can't be weaned. Plan is for pt to return home at discharge.
--- NOTE | 2023-12-10 10:42 | CM.NOTE ---
Rounds made with Dr. Hernandez. Dr. Hernandez reviews plan of care and potential need for oxygen at discharge. Mr. Richardson verbalizes understanding.
[2023-12-10 11:06] LABS: Glucometer 202 mg/dL (74-106)
[2023-12-10] MEDS: INSULIN ASPART 300 UNIT/3 ML PEN SUBQ ×3 (11:08→21:33)
[2023-12-10] MEDS: ACETAMINOPHEN 325 MG TABLET 650 MG PO ×2 (11:10→21:27)
--- NOTE | 2023-12-10 11:31 | P.IMPN_ITS ---
Progress Note: A&P Assessment and Plan (1) Acute on chronic systolic (congestive) heart failure: Assessment and Plan: Acute on chronic systolic HF, most recent EF 45%. Still volume overload with resulting hypoxia. Needing IV diuresis. Monitor I/O, daily weights. Decrease Bumex to 2 mg IV q12. (2) Acute respiratory failure with hypoxia: Assessment and Plan: Improved. Now on 1.5 L. previously needed 3 L O2. Feeling better subjectively but still hypoxic. C/w diuresis. Monitor I/O , daily weights. (3) HÉCTOR (acute kidney injury): Assessment and Plan: Renal function slightly worse today. C/w IV diuresis. Monitor renal fx closely. (4) CAD (coronary artery disease): Assessment and Plan: 2 vessel disease. Recent PCI to LAD/OM. Scheduled for stage PCI of RCA. Patient refused CABG. On appropriate medications. No evidence of active cardiac ischemia. Qualifiers: Associated angina: without angina Coronary Disease-Associated Artery/Lesion type: [place] artery [place] vs. transplanted heart: [place] heart Qualified Code(s): I25.10 - Atherosclerotic heart disease of [place] coronary artery without angina pectoris (5) Diabetes: Assessment and Plan: C/w Basal/bolus insulin. Hold glipizide. Qualifiers: Chronic kidney disease stage: stage 3 (moderate) Chronic kidney disease stage 3 subtype: stage 3a (GFR 45-59) Diabetes mellitus complication detail: with chronic kidney disease Diabetes mellitus complication status: with kidney complications Diabetes mellitus mcfp insulin use: with mcfp use Diabetes mellitus type: type 2 Qualified Code(s): E11.22 - Type 2 diabetes mellitus with diabetic chronic kidney disease; N18.31 - Chronic kidney disease, stage 3a; Z79.4 - [facility] (current) use of insulin (6) Hypertension: Assessment and Plan: C/w home medications. BP at goal Qualifiers: Hypertension type: primary hypertension Qualified Code(s): I10 - Essential (primary) hypertension (7) CKD stage 3 due to type 2 diabetes mellitus: Assessment and Plan: Monitor renal fx closely. Plan C/w diuresis, wean off O2 as tolerated. Monitor serum electrolytes and renal function closely Internal Medicine - PN: Subj Subjective Interval history: Seen and examined. Good UO on bunex. Hypoxia improved but still requiring O2. 85% on RA today. No overnight events. Exam Constitutional Vital Signs, click to edit/add: Last Vital Signs Temp 98.5 F 12/10/23 06:03 Pulse 78 12/10/23 09:44 Resp 21 H 12/10/23 06:03 BP 144/70 H 12/10/23 06:03 Pulse Ox 85 L 12/10/23 10:08 O2 Del Method Room Air 12/10/23 10:08 O2 Flow Rate 1.5 12/10/23 06:03 Common normals: no apparent distress and oriented x3 General appearance: comfortable Nutritional appearance: obese Respiratory Common normals: normal respiratory effort and no use of accessory muscles Effort & inspection: able to speak in complete sentences Auscultation: rales bilateral at the base Cardio Common normals: regular rate, regular rhythm, S1 normal heart sound and S2 normal heart sound Extremity Common normals: full ROM General: edema (+2 LE edema) Neuro Common normals: oriented x3, moves all extremities and no focal motor deficits Psych Common normals: mental status grossly normal, thought process normal, denies homicidal ideation and denies suicidal ideation Internal Medicine - PN: Obj Da Labs Labs: Laboratory Results - last 24 hr 12/09/23 12/09/23 12/09/23 11:37 16:41 21:15 WBC RBC Hgb Hct MCV MCH MCHC RDW Plt Count MPV Neut % (Auto) Lymph % (Auto) [place] % (Auto) Eos % (Auto) Baso % (Auto) Neut # (Auto) Lymph # (Auto) [place] # (Auto) Eos # (Auto) Baso # (Auto) Abs Immat Gran (auto) Imm/Tot Granulo (auto) Sodium Potassium Chloride Carbon Dioxide Anion Gap BUN Creatinine Est GFR ( Amer) Est GFR (Non-Af Amer) BUN/Creatinine Ratio Glucose Calcium Total Bilirubin AST ALT Alkaline Phosphatase NT-Pro-B Natriuret Pep Total Protein Albumin Globulin Albumin/Globulin Ratio POC Glucose 157 H 108 H 151 H 12/10/23 12/10/23 05:14 11:05 WBC 9.6 RBC 3.06 L Hgb 8.8 L Hct 28.2 L MCV 92.2 MCH 28.8 MCHC 31.2 RDW 15.3 H Plt Count 331 MPV 9.6 Neut % (Auto) 77.9 H Lymph % (Auto) 9.6 L [place] % (Auto) 7.6 Eos % (Auto) 3.8 Baso % (Auto) 0.6 Neut # (Auto) 7.5 H Lymph # (Auto) 0.9 L [place] # (Auto) 0.7 Eos # (Auto) 0.4 Baso # (Auto) 0.1 Abs Immat Gran (auto) 0.05 H Imm/Tot Granulo (auto) 0.5 Sodium 142 Potassium 3.9 Chloride 108 H Carbon Dioxide 27.1 Anion Gap 10.8 BUN 45.0 H Creatinine 2.08 H Est GFR ( Amer) 39 L Est GFR (Non-Af Amer) 32 L BUN/Creatinine Ratio 21.6 Glucose 124 H Calcium 8.5 Total Bilirubin 0.3 AST 26 ALT 45 Alkaline Phosphatase 76 NT-Pro-B Natriuret Pep 3015.0 H* Total Protein 6.0 L Albumin 2.5 L Globulin 3.5 Albumin/Globulin Ratio 0.7 POC Glucose 202 H
[2023-12-10 16:37] LABS: Glucometer 203 mg/dL (74-106)
[2023-12-10] MEDS: BUMETANIDE 1 MG/4 ML VIAL 2 MG IVP (17:21)
[2023-12-10] MEDS: OXYCODONE HCL 5 MG TABLET PO (21:27)
[2023-12-10 21:32] LABS: Glucometer 174 mg/dL (74-106)
[2023-12-11] VITALS (11 sets, daily range): BP systolic 137; BP diastolic 70; PULSE 68–90; TEMP 36.7; O2SAT 83–94
[2023-12-11] MEDS: HEPARIN SODIUM (PORCINE) 5,000 UNIT/ML VIAL 5000 UNIT SUBQ ×2 (05:21→14:14)
[2023-12-11] MEDS: BUMETANIDE 1 MG/4 ML VIAL 2 MG IVP (05:22)
[2023-12-11] MEDS: OXYCODONE HCL 5 MG TABLET PO ×2 (05:34→12:24)
[2023-12-11] MEDS: ACETAMINOPHEN 325 MG TABLET 650 MG PO ×2 (05:34→12:24)
[2023-12-11 05:49] LABS: Basophils Absolute Auto 0.1 10^3/uL (0.0-0.1); Basophils Percent Auto 0.9 % (0.2-2.0); Eosinophils Absolute Auto 0.4 10^3/uL (0.0-0.7); Eosinophils Percent Auto 4.6 % (0.9-7.0); Hematocrit 26.9 % (42.0-54.0); Hemoglobin 8.4 g/dL (14.0-18.0); Immature Granulocytes Abs Auto 0.04 10^3/uL (0.00-0.03); Immature Granulocytes Pct Auto 0.5 % (0.0-0.5); Lymphocytes Absolute Auto 0.9 10^3/uL (1.2-3.8); Mean Corpuscular HGB Conc 31.2 g/dL (29.9-35.2); Mean Corpuscular Hemoglobin 28.9 pg (25.9-34.0); Mean Corpuscular Volume 92.4 fL (80.0-94.0); Mean Platelet Volume 9.7 fL (9.5-13.5); Monocytes Absolute Auto 0.7 10^3/uL (0.3-0.8); Monocytes Percent Auto 8.7 % (1.7-12.0); Neutrophils Percent Auto 74.3 % (43.0-75.0); Platelet Count 304 10^3/uL (150-450); Red Blood Count 2.91 10^6/uL (4.70-6.10); Red Cell Distribution Width 15.5 % (11.0-15.0); White Blood Count 8.1 10^3/uL (4.0-11.0)
[2023-12-11 06:07] LABS: Alanine Aminotransferase 40 U/L (16-63); Albumin Globulin Ratio 0.7; Albumin Level 2.5 g/dL (3.4-5.0); Alkaline Phosphatase 73 U/L (46-116); Anion Gap 13.5; Aspartate Amino Transferase 19 U/L (15-37); BUN Creatinine Ratio 21.7; Bilirubin Total 0.4 mg/dL (0.2-1.0); Calcium 8.3 mg/dL (8.5-10.1); Carbon Dioxide 26.3 mmol/L (21.0-32.0); Chloride 105 mmol/L (98-107); Estimated GFR (African America 41 (>=60 mL/min/1.73m^2); Estimated GFR (Non-African Ame 34 (>=60 mL/min/1.73m^2); Globulin 3.5 g/dL; Glucose 132 mg/dL (74-106); Potassium 3.8 mmol/L (3.5-5.1); Sodium 141 mmol/L (136-145)
[2023-12-11] MEDS: INSULIN DETEMIR 300 UNIT/3 ML INSULN.PEN 60 UNIT SUBQ (08:32)
[2023-12-11] MEDS: ISOSORBIDE MONONITRATE 30 MG TAB.ER.24H PO (08:33)
[2023-12-11] MEDS: CARVEDILOL 25 MG TABLET PO (08:33)
[2023-12-11] MEDS: PRASUGREL HCL 10 MG TABLET PO (08:33)
[2023-12-11] MEDS: ATORVASTATIN CALCIUM 40 MG TABLET 80 MG PO (08:33)
[2023-12-11] MEDS: SERTRALINE HCL 50 MG TABLET 25 MG PO (08:33)
[2023-12-11] MEDS: ASPIRIN 81 MG TAB.CHEW PO (08:33)
--- NOTE | 2023-12-11 10:01 | PM.DS1 ---
DS: Providers Provider Date of admission: 12/08/23 19:48 Primary care physician: Samara Schultz NP Admitting clinician: Shaikh David Attending physician on admission: Shaikh David Consults: 12/08/23 17:27 Physical Therapy Eval and Treat Routine Reason for consultation: Ambulatory dysfunction/weakness 12/10/23 11:31 Physical Therapy Eval and Treat Routine Reason for consultation: weakness Attending physician on discharge: Shaikh David Discharging clinician: Shaikh David Anticipated date of discharge: 12/11/23 DS: Diagnosis Discharge Diagnosis (1) Acute on chronic systolic (congestive) heart failure: (2) Acute respiratory failure with hypoxia: (3) HÉCTOR (acute kidney injury): (4) CAD (coronary artery disease): Qualifiers: Coronary Disease-Associated Artery/Lesion type: [place] artery [place] vs. transplanted heart: [place] heart Associated angina: without angina Qualified Code(s): I25.10 - Atherosclerotic heart disease of [place] coronary artery without angina pectoris (5) Diabetes: Qualifiers: Diabetes mellitus type: type 2 Diabetes mellitus mcc insulin use: with mcc use Diabetes mellitus complication status: with kidney complications Diabetes mellitus complication detail: with chronic kidney disease Chronic kidney disease stage: stage 3 (moderate) Chronic kidney disease stage 3 subtype: stage 3a (GFR 45-59) Qualified Code(s): E11.22 - Type 2 diabetes mellitus with diabetic chronic kidney disease; N18.31 - Chronic kidney disease, stage 3a; 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 Upon arrival in ER, patient was tachypneic and short of breath at rest with pulse ox as low as 85% on room air. Workup revealed evidence of volume overload with elevated BNP, Rales and crackles on lung examination and patient was admitted for acute respiratory failure with hypoxia secondary to acute on chronic diastolic heart failure. Patient is not compliant with his diet and does not watch what he eats. We initially started him on IV Lasix 40 twice daily but he had an adequate urine output on it. He was then switched over to IV Bumex 4 mg twice a day with good urine output and improvement in his volume status, hypoxia. He is however still requiring 1.5 L to 2 L of oxygen via nasal cannula and drops his pulse ox to 83% on a 6-minute walk test. This was discussed with the patient and that he might need oxygen supplementation for a period of time temporarily for hypoxia. Since he is subjectively feeling better and denies shortness of breath at rest and or exertion and appears more or less close to euvolemic, he is medically stable for discharge on home oxygen. We will increase his bumex from 4 mg once daily to 3 mg q12. Patient was educated on dietary restrictions/low-salt diet. He was also instructed to follow-up with PCP and cardiology as outpatient. Patient was educated on worrisome signs and symptoms and that he should return to ED if he develop those symptoms Status at Discharge Functional status at discharge: independent ambulation Overall status at discharge: patient is back to baseline Time Spent with Patient Time attestation: Total time spent providing and/or coordinating discharge services: Time spent: greater than 30 minutes Exam Constitutional Vital Signs, click to edit/add: Last Vital Signs Temp 98.1 F 12/11/23 05:20 Pulse 75 12/11/23 09:57 Resp 18 12/11/23 05:20 BP 137/70 12/11/23 05:22 Pulse Ox 94 L 12/11/23 05:20 O2 Del Method Nasal Cannula 12/11/23 05:20 O2 Flow Rate 1.5 12/11/23 05:20 Common normals: no apparent distress and oriented x3 General appearance: comfortable Nutritional appearance: obese Respiratory Common normals: normal respiratory effort and no use of accessory muscles Effort & inspection: able to speak in complete sentences Auscultation: diminished lung sounds Cardio Common normals: regular rate, regular rhythm, S1 normal heart sound and S2 normal heart sound Extremity Common normals: full ROM General: edema (+2 LE edema) Neuro Common normals: oriented x3, moves all extremities and no focal motor deficits Psych Common normals: mental status grossly normal, thought process normal, denies homicidal ideation and denies suicidal ideation DS: Data Data Completed and Pending Labs on day of discharge: Labs from last 24 hours 12/11/23 12/10/23 12/10/23 05:35 21:31 16:35 WBC 8.1 RBC 2.91 L Hgb 8.4 L Hct 26.9 L MCV 92.4 MCH 28.9 MCHC 31.2 RDW 15.5 H Plt Count 304 MPV 9.7 Neut % (Auto) 74.3 Lymph % (Auto) 11.0 L [place] % (Auto) 8.7 Eos % (Auto) 4.6 Baso % (Auto) 0.9 Neut # (Auto) 6.0 Lymph # (Auto) 0.9 L [place] # (Auto) 0.7 Eos # (Auto) 0.4 Baso # (Auto) 0.1 Abs Immat Gran (auto) 0.04 H Imm/Tot Granulo (auto) 0.5 Sodium 141 Potassium 3.8 Chloride 105 Carbon Dioxide 26.3 Anion Gap 13.5 BUN 43.0 H Creatinine 1.98 H Est GFR ( Amer) 41 L Est GFR (Non-Af Amer) 34 L BUN/Creatinine Ratio 21.7 Glucose 132 H Calcium 8.3 L Total Bilirubin 0.4 AST 19 ALT 40 Alkaline Phosphatase 73 NT-Pro-B Natriuret Pep 2672.0 H* Total Protein 6.0 L Albumin 2.5 L Globulin 3.5 Albumin/Globulin Ratio 0.7 POC Glucose 174 H 203 H 12/10/23 11:05 WBC RBC Hgb Hct MCV MCH MCHC RDW Plt Count MPV Neut % (Auto) Lymph % (Auto) [place] % (Auto) Eos % (Auto) Baso % (Auto) Neut # (Auto) Lymph # (Auto) [place] # (Auto) Eos # (Auto) Baso # (Auto) Abs Immat Gran (auto) Imm/Tot Granulo (auto) Sodium Potassium Chloride Carbon Dioxide Anion Gap BUN Creatinine Est GFR ( Amer) Est GFR (Non-Af Amer) BUN/Creatinine Ratio Glucose Calcium Total Bilirubin AST ALT Alkaline Phosphatase NT-Pro-B Natriuret Pep Total Protein Albumin Globulin Albumin/Globulin Ratio POC Glucose 202 H Discharge Plan Discharge Disposition: Home, Self-Care Discharge Medications: Continued glipizide 10 mg tablet 10 mg PO BID insulin glargine [Lantus Solostar U-100 Insulin] 100 unit/mL (3 mL) insulin pen 60 unit SUBCUT DAILY lisinopril 40 mg tablet 40 mg PO DAILY carvedilol 25 mg tablet 25 mg PO Q12H atorvastatin 80 mg tablet 80 mg PO DAILY prasugrel 10 mg tablet 10 mg PO DAILY sertraline 50 mg tablet 25 mg PO DAILY aspirin [Aspirin Childrens] 81 mg tablet,chewable 81 mg PO DAILY nitroglycerin 0.4 mg tablet, sublingual 0.4 mg sublingual Q5M PRN (Reason: chest pain) isosorbide mononitrate 30 mg tablet extended release 24 hr 30 mg PO DAILY Qty: 14 0RF Changed bumetanide 2 mg tablet 3 mg PO BID 30 Days Qty: 90 0RF Activity: increase activity as tolerated Diet: advance to your usual diet Print Language: Bulgarian Forms: Portal Instructions Follow Up Appointments: F/u with PCP in one week F/u with Cardiology in 1-2 weeks
--- NOTE | 2023-12-11 10:09 | SWNOTE1 ---
Pt will be discharged on 1.5 liters of home oxygen. ZACH spoke with pt and provided the DME companies that provide home oxygen. Pt would like to use [facility]. Pt voiced that his son does not get off work until 2:30, so he will not have a ride until 3:00ish. SW did offer trips to get him home, but he voiced he hated trips. SW to let nurse know. ZACH sent over walk test, script, demographic sheet, and face to face documentation to [facility].
--- NOTE | 2023-12-11 10:21 | CM.NOTE ---
Rounds made with Dr. Hernandez, pt will discharge to home today with home oxygen. RN already completed walk test this AM. No other discharge needs identified.
--- NOTE | 2023-12-11 11:50 | SWNOTE1 ---
ZACH called [facility] and spoke to Ronda. She voiced they received referral and Merle is working on it now.
--- NOTE | 2023-12-11 12:05 | SWNOTE1 ---
ZACH received a call from Merle at [facility] and pt's home oxygen is all set. ZACH let her know that pt will be discharged around 3:00pm. ZACH took pt his oxygen tank and provided him with [facility] phone number that he is to call on way home or once he arrives home. He voiced understanding. ZACH notified nurse.
--- NOTE | 2023-12-12 14:48 | CM.DCFOLLOWU ---
12/11- 1st attempt. No answer
--- NOTE | 2023-12-13 11:39 | CM.DCFOLLOWU ---
2nd attempt 12/13/23, no answer
--- NOTE | 2023-12-14 11:28 | CM.DCFOLLOWU ---
12/13- 3rd attempt. No answer
== END 2023-12-11 15:00 | disposition home or self-care (01) | DRG 291 ==
LOC: ER 17:49 → MS 19:55
PROVIDERS: Admitting Provider Internal Medicine; Emergency Provider Emergency Medicine; PCP Nurse Practitioner Family; Visit Provider Internal Medicine
DX: I13.0 Hypertensive heart and chronic kidney disease with heart failure and stage 1 through stage 4 chronic kidney disease, or unspecified chronic kidney disease (principal); I50.23 Acute on chronic systolic (congestive) heart failure; J96.01 Acute respiratory failure with hypoxia; N17.9 Acute kidney failure, unspecified; I25.10 Atherosclerotic heart disease of native coronary artery without angina pectoris; E11.22 Type 2 diabetes mellitus with diabetic chronic kidney disease; N18.31 Chronic kidney disease, stage 3a; I25.2 Old myocardial infarction; Z95.5 Presence of coronary angioplasty implant and graft; Z79.82 Long term (current) use of aspirin; Z79.899 Other long term (current) drug therapy; Z90.49 Acquired absence of other specified parts of digestive tract; Z79.4 Long term (current) use of insulin
CPT/HCPCS: 36415; 71045; 80053; 82948; 83880; 84484; 85025; 85610; 90662; 93005; 94667; 94761; 96374; 99285; J1644; J1940

== ENCOUNTER 2023-12-19 06:07 | Inpatient (IN) | payer MEDICARE, SELFPAY ==
[2023-12-19] VITALS (80 sets, daily range): BP systolic 105–162; BP diastolic 61–77; PULSE 83–106; TEMP 36.3–36.8; O2SAT 95–100; BMI 35.9; BMI 36.4
--- OUTSIDE RECORDS SUMMARY | 2023-12-19 06:32 | XMS_ITS | CCD ---
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; Translations: [intermediate (current) use of insulin (Multi)] Onset: 4 Episodic Other circulatory disease (2 sources) Other disorders of arteries, arterioles and capillaries in diseases classified elsewhere; Translations: [Other disorders of arteries, arterioles and capillaries in diseases classified elsewhere ([facility])] Onset: 4 Chronic Other lower respiratory disease [...] disease, unspecified; Translations: [Peripheral vascular disease, unspecified ([facility])] Onset: 4 Chronic Residual codes; [...] for choosing us for your care. Normal [facility] ECG 12-LEADon 11-13-2023 ECG 12-LEAD Ventricular Rate 72 Atrial Rate 72 P-R Interval 188 QRS Duration 96 Q-T Interval 398 QTC Calculation(Bazett) 435 P Huntington -13 R Huntington 9 T Huntington 36 QRS Count 12 Q Onset 216 P Onset 122 P Offset 163 T Offset 415 QTC Fredericia 423 Diagnosis Normal sinus rhythm Normal ECG When compared with ECG of 16-OCT-2023 08:50, No significant change was found Confirmed by Mere Urban ([id number]) on 11/14/2023 6:48:02 PM Normal [facility] CBC panel Auto (Bld)on 10-23 Erythrocyte distribution width (RBC) [Ratio] 15.0 % High 11.5-14.5 [facility] Comment on above: Performed By: #### 5 8077-9 #### ERICA Tam ([id number]) [facility] ([facility]) [address] [place] [address] 15794 Hematocrit (Bld) [Volume fraction] 36.3 % Low 41.0-52.0 [facility] Comment on above: Performed By: #### 5 8077-9 #### ERICA Tam ([id number]) [facility] ([facility]) [id number] [place] [address] 90368 Hemoglobin (Bld) [Mass/Vol] 11.4 g/dL Low 13.5-17.5 [facility] Comment on above: Performed By: #### 5 8077-9 #### ERICA Tam ([id number]) [facility] ([facility]) [address] [place] [address] 20103 MCH (RBC) [Entitic mass] 29.1 pg Normal 26.0-34.0 [facility] Comment on above: Performed By: #### 5 8077-9 #### ERICA Tam ([id number]) [facility] ([facility]) [address] [place] [address] 82630 MCHC (RBC) [Mass/Vol] 31.4 g/dL Low 32.0-36.0 [facility] Comment on above: Performed By: #### 5 8077-9 #### ERICA Tam ([id number]) [facility] ([facility]) [address] [place] [address] 41000 MCV (RBC) [Entitic vol] 93 fL Normal 80-100 [facility] Comment on above: Performed By: #### 5 8077-9 #### ERICA Tam ([id number]) [facility] ([facility]) [address] [place] [address] 03026 Nucleated RBC/100 WBC (Bld) [Ratio] 0.0 /100 WBCs Normal 0.0-0.0 [facility] Comment on above: Performed By: #### 5 8077-9 #### ERICA Tam ([id number]) [facility] ([facility]) [address] [place] [address] 46718 Platelets (Bld) [#/Vol] 313 x10*3/uL Normal 150-450 [facility] Comment on above: Performed By: #### 5 8077-9 #### ERICA Tam ([id number]) [facility] ([facility]) [address] [place] [address] 98909 RBC (Bld) [#/Vol] 3.92 x10*6/uL Low 4.50-5.90 [facility] Comment on above: Performed By: #### 5 8077-9 #### ERICA Tam ([id number]) [facility] ([facility]) [address] [place] [address] WBC (Bld) [#/Vol] 8.9 x10*3/uL Normal 4.4-11.3 [facility] Comment on above: Performed By: #### 5 8077-9 #### ERICA Tam ([id number]) [facility] ([facility]) [id number] [place] [address] 66630 Glucose Test strip manual (B ld) [Mass/Vol]on 10-24-2023 Glucose [Mass/Vol] 203 mg/dL High 74-99 [facility] Comment on above: Performed By: #### 5 8077-9 #### ERICA Tam ([id number]) [facility] ([facility]) [address] [place] [address] 28572 Renal function 2000 panelon 10-24-2023 Albumin BCP dye [Mass/Vol] 3.2 g/dL Low 3.4-5.0 [facility] Comment on above: Performed By: #### 5 8077-9 #### ERICA Tam ([id number]) [facility] ([facility]) [address] [place] [address] 65219 Anion gap [Moles/Vol] 12 mmol/L Normal 10-20 [facility] Comment on above: Performed By: #### 5 8077-9 #### ERICA Tam ([id number]) [facility] ([facility]) [address] [place] [address] 94399 Calcium [Mass/Vol] 8.4 mg/dL Low 8.6-10.6 [facility] Comment on above: Performed By: #### 5 8077-9 #### ERICA Tam ([id number]) [facility] ([facility]) [address] [place] [address] 62737 Chloride [Moles/Vol] 105 mmol/L Normal 98-107 [facility] Comment on above: Performed By: #### 5 8077-9 #### ERICA Tam ([id number]) [facility] ([facility]) [address] [place] [address] CO2 [Moles/Vol] 24 mmol/L Normal 21-32 [facility] Comment on above: Performed By: #### 5 8077-9 #### ERICA Tam ([id number]) [facility] ([facility]) [address] [place] [address] Creatinine [Mass/Vol] 1.72 mg/dL High 0.50-1.30 [facility] Comment on above: Performed By: #### 5 8077-9 #### ERICA Tam ([id number]) [facility] ([facility]) [address] [place] [address] 18771 Glomerular filtration rate/1.73 sq M.predicted 42 mL/min/1.73m*2 Low >60 [facility] Comment on above: Result Comment: Calc ulations of estimated GFR are performed using the 2020 CKD-EPI Study Refit equation without the race variable for the IDMS-Traceable creatinine methods. https://jasn.asnjournals.org/content//ASN.00669 24596 Performed By: #### 5 8077-9 #### ERICA Tam ([id number]) [facility] ([facility]) [address] [place] [address] Glucose [Mass/Vol] 184 mg/dL High 74-99 [facility] Comment on above: Performed By: #### 5 8077-9 #### ERICA Tam ([id number]) [facility] ([facility]) [address] [place] [address] Phosphate [Mass/Vol] 3.9 mg/dL Normal 2.5-4.9 [facility] Comment on above: Result Comment: The performance characteristics of phosphorus testing in heparinized plasma have been validated by the individual laboratory site where testing is performed. Testing on heparinized plasma is not approved by the FDA; however, such approval is not necessary. Performed By: #### 5 8077-9 #### ERICA Tam ([id number]) [facility] ([facility]) [address] [place] [address] Potassium [Moles/Vol] 4.1 mmol/L Normal 3.5-5.3 [facility] Comment on above: Performed By: #### 5 8077-9 #### ERICA MCDONALD L ([id number]) [facility] ([facility]) [address] [place] [address] 16004 Sodium [Moles/Vol] 137 mmol/L Normal 136-145 [facility] Comment on above: Performed By: #### 5 8077-9 #### ERICA MCDONALD L ([id number]) [facility] ([facility]) [id number] [place] [address] 65080 Urea nitrogen [Mass/Vol] 38 mg/dL [facility] 6-23 [facility] Comment on above: Performed By: #### 5 8077-9 #### ERICA MCDONALD L ([id number]) [facility] ([facility]) [id number] [place] [address] 40924 Activated clotting timeon ACT Coag (Bld) [address] Comment on above: Result Comment: Targ et ACT range will vary based on the patient population, clinical status, and surgical intervention occurring. Performed By: #### 5 8077-9 #### ERICA MCDONALD L ([id number]) [facility] ([facility]) [address] [place] [address] 96734 ACT Coag (Bld) [address] Comment on above: Result Comment: Targ et ACT range will vary based on the patient population, clinical status, and surgical intervention occurring. Performed By: #### 5 8077-9 #### ERICA MCDONALD L ([id number]) [facility] ([facility]) [address] [place] [address] 26679 ACT Coag (Bld) [address] Comment on above: Result Comment: Targ et ACT range will vary based on the patient population, clinical status, and surgical intervention occurring. 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 Heart failure. Recent myocardial infarction. Recent MA. Medical History: Stress test performed: No. CTA performed: No. [facility] accessed: No. LVEF Assessed: Yes. LVEF [...] worsening dyspnea. He was subsequently transferred to [facility] for further workup. 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 Transthoracic echocardiogram demonstrated an LVEF of 45 to 50%. He was then transferred to [facility] for CABG evaluation. Sadly, his about [...] was calcified. 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 Coronary Interventions: After infiltration with 2% Lidocaine, the right was cannulated with a modified Seldinger technique with ultrasound guidance. Subsequently a 6 Israeli sheath was placed antegrade in the right. A 6 Israeli EBU 3.5 guide catheter was advanced over [...] rodrigo. Post-stent intravascular ultrasound assessment with the [place] [facility] catheter was performed. IVUS demonstrated an [...] 4 pa (more content not included)... Normal [facility] CBC panel Auto (Bld)on 10-22 Erythrocyte distribution width (RBC) [Ratio] 14.6 % High 11.5-14.5 [facility] Comment on above: Performed By: #### 7 77-3 #### ERICA Tam ([id number]) [facility] ([facility]) [address] [place] [address] 46343 Hematocrit (Bld) [Volume fraction] 37.2 % Low 41.0-52.0 [facility] Comment on above: Performed By: #### 7 77-3 #### ERICA MCDONALD L ([id number]) [facility] ([facility]) [address] [place] [address] 69181 Hemoglobin (Bld) [Mass/Vol] 11.2 g/dL Low 13.5-17.5 [facility] Comment on above: Performed By: #### 7 77-3 #### ERICA MCDONALD L ([id number]) [facility] ([facility]) [id number] [place] [address] 69294 MCH (RBC) [Entitic mass] 27.9 pg Normal 26.0-34.0 [facility] Comment on above: Performed By: #### 7 77-3 #### ERICA MCDONALD L ([id number]) [facility] ([facility]) [address] [place] [address] MCHC (RBC) [Mass/Vol] 30.1 g/dL Low 32.0-36.0 [facility] Comment on above: Performed By: #### 7 77-3 #### ERICA Tam ([id number]) [facility] ([facility]) [id number] [place] [address] 26562 MCV (RBC) [Entitic vol] 93 fL Normal 80-100 [facility] Comment on above: Performed By: #### 7 77-3 #### ERICA Tam ([id number]) [facility] ([facility]) [address] [place] [address] 35026 Nucleated RBC/100 WBC (Bld) [Ratio] 0.0 /100 WBCs Normal 0.0-0.0 [facility] Comment on above: Performed By: #### 7 77-3 #### ERICA Tam ([id number]) [facility] ([facility]) [address] [place] [address] 87609 Platelets (Bld) [#/Vol] 334 x10*3/uL Normal 150-450 [facility] Comment on above: Performed By: #### 7 77-3 #### ERICA Tam ([id number]) [facility] ([facility]) [address] [place] [address] 38635 RBC (Bld) [#/Vol] 4.01 x10*6/uL Low 4.50-5.90 [facility] Comment on above: Performed By: #### 7 77-3 #### ERICA Tam ([id number]) [facility] ([facility]) [address] [place] [address] 98421 WBC (Bld) [#/Vol] 9.6 x10*3/uL Normal 4.4-11.3 [facility] Comment on above: Performed By: #### 7 77-3 #### ERICA Tam ([id number]) [facility] ([facility]) [address] [place] [address] 34963 Glucose Test strip manual (B ld) [Mass/Vol]on 10-23-2023 Glucose [Mass/Vol] 238 mg/dL High 74-99 [facility] Comment on above: Performed By: #### 5 8077-9 #### ERICA Tam ([id number]) [facility] ([facility]) [address] [place] [address] Glucose [Mass/Vol] 96 mg/dL Normal 74-99 [facility] Comment on above: Performed By: #### 7 77-3 #### ERICA Tam ([id number]) [facility] ([facility]) [address] [place] [address] Glucose [Mass/Vol] 101 mg/dL High 74-99 [facility] Comment on above: Performed By: #### 7 77-3 #### ERICA Tam ([id number]) [facility] ([facility]) [address] [place] [address] Glucose [Mass/Vol] 96 mg/dL Normal 74-99 [facility] Comment on above: Performed By: #### 7 77-3 #### ERICA Tam ([id number]) [facility] ([facility]) [id number] [place] [address] 81389 Renal function 2000 panelon 10-23-2023 Albumin BCP dye [Mass/Vol] 3.2 g/dL Low 3.4-5.0 [facility] Comment on above: Performed By: #### 7 77-3 #### ERICA Tam ([id number]) [facility] ([facility]) [address] [place] [address] Anion gap [Moles/Vol] 13 mmol/L Normal 10-20 [facility] Comment on above: Performed By: #### 7 77-3 #### ERICA Tam ([id number]) [facility] ([facility]) [address] [place] [address] Calcium [Mass/Vol] 8.5 mg/dL Low 8.6-10.6 [facility] Comment on above: Performed By: #### 7 77-3 #### ERICA Tam ([id number]) [facility] ([facility]) [address] [place] [address] Chloride [Moles/Vol] 103 mmol/L Normal 98-107 [facility] Comment on above: Performed By: #### 7 77-3 #### ERICA ARREOLATZER L ([id number]) [facility] ([facility]) [address] [place] [address] CO2 [Moles/Vol] 25 mmol/L Normal 21-32 [facility] Comment on above: Performed By: #### 7 77-3 #### ERICA RESTREPOMOTZER L ([id number]) [facility] ([facility]) [address] [place] [address] Creatinine [Mass/Vol] 1.77 mg/dL High 0.50-1.30 [facility] Comment on above: Performed By: #### 7 77-3 #### ERICA HIGGINSER L ([id number]) [facility] ([facility]) [address] [place] [address] 57178 Glomerular filtration rate/1.73 sq M.predicted 41 mL/min/1.73m*2 Low >60 [facility] Comment on above: Result Comment: Calc ulations of estimated GFR are performed using the 2020 CKD-EPI Study Refit equation without the race variable for the IDMS-Traceable creatinine methods. https://jasn.asnjournals.org/content/early//ASN.83070 99552 Performed By: #### 7 77-3 #### ERICA RESTREPOMOTZER L ([id number]) [facility] ([facility]) [address] [place] [address] Glucose [Mass/Vol] 99 mg/dL Normal 74-99 [facility] Comment on above: Performed By: #### 7 77-3 #### ERICA RESTREPOMOTZER L ([id number]) [facility] ([facility]) [address] [place] [address] Phosphate [Mass/Vol] 4.9 mg/dL Normal 2.5-4.9 [facility] Comment on above: Result Comment: MODE [...] By: #### 7 77-3 #### ERICA Tam ([id number]) [facility] ([facility]) [id number] [place] [address] 64261 Potassium [Moles/Vol] 5.2 mmol/L Normal 3.5-5.3 [facility] Comment on above: Result Comment: MODE RATE HEMOLYSIS DETECTED. The result may be falsely elevated due to hemolysis or other interferents. Clinical correlation is recommended. Repeat testing may be considered. Performed By: #### 7 77-3 #### ERICA Tam ([id number]) [facility] ([facility]) [id number] [place] [address] 73480 Sodium [Moles/Vol] 136 mmol/L Normal 136-145 [facility] Comment on above: Performed By: #### 7 77-3 #### ERICA Tam ([id number]) [facility] ([facility]) [address] [place] [address] 04966 Urea nitrogen [Mass/Vol] 39 mg/dL High 6-23 [facility] Comment on above: Performed By: #### 7 77-3 #### ERICA Tam ([id number]) [facility] ([facility]) [address] [place] [address] 74742 Glucose Test strip manual (B ld) [Mass/Vol]on 10-22-2023 Glucose [Mass/Vol] 246 mg/dL High 74-99 [facility] Comment on above: Performed By: #### 7 77-3 #### ERICA Tam ([id number]) [facility] ([facility]) [address] [place] [address] 75465 Glucose [Mass/Vol] 186 mg/dL High 74-99 [facility] Comment on above: Performed By: #### 7 77-3 #### ERICA Tam ([id number]) [facility] ([facility]) [address] [place] [address] Glucose [Mass/Vol] 213 mg/dL High 74-99 [facility] Comment on above: Performed By: #### 7 77-3 #### ERICA Tam ([id number]) [facility] ([facility]) [address] [place] [address] Glucose [Mass/Vol] 143 mg/dL High 74-99 [facility] Comment on above: Performed By: #### 7 77-3 #### ERICA Tam ([id number]) [facility] ([facility]) [id number] [place] [address] 66298 Renal function 2000 panelon 10-22-2023 Albumin BCP dye [Mass/Vol] 3.3 g/dL Low 3.4-5.0 [facility] Comment on above: Performed By: #### 7 77-3 #### ERICA Tam ([id number]) [facility] ([facility]) [id number] [place] [address] 12518 Anion gap [Moles/Vol] 14 mmol/L Normal 10-20 [facility] Comment on above: Performed By: #### 7 77-3 #### ERICA Tam ([id number]) [facility] ([facility]) [id number] [place] [address] 59456 Calcium [Mass/Vol] 8.8 mg/dL Normal 8.6-10.6 [facility] Comment on above: Performed By: #### 7 77-3 #### ERICA Tam ([id number]) [facility] ([facility]) [address] [place] [address] 41751 Chloride [Moles/Vol] 101 mmol/L Normal 98-107 [facility] Comment on above: Performed By: #### 7 77-3 #### ERICA Tam ([id number]) [facility] ([facility]) [address] [place] [address] 42564 CO2 [Moles/Vol] 23 mmol/L Normal 21-32 [facility] Comment on above: Performed By: #### 7 77-3 #### ERICA Tam ([id number]) [facility] ([facility]) [address] [place] [address] Creatinine [Mass/Vol] 1.75 mg/dL High 0.50-1.30 [facility] Comment on above: Performed By: #### 7 77-3 #### ERICA Tam ([id number]) [facility] ([facility]) [address] [place] [address] Glomerular filtration rate/1.73 sq M.predicted 42 mL/min/1.73m*2 Low >60 [facility] Comment on above: Result Comment: Calc ulations of estimated GFR are performed using the 2020 CKD-EPI Study Refit equation without the race variable for the IDMS-Traceable creatinine methods. https://jasn.asnjournals.org/content/early//ASN.42575 54119 Performed By: #### 7 77-3 #### ERICA MCDONALD L ([id number]) [facility] ([facility]) [address] [place] [address] Glucose [Mass/Vol] 214 mg/dL High 74-99 [facility] Comment on above: Performed By: #### 7 77-3 #### ERICA Tam ([id number]) [facility] ([facility]) [address] [place] [address] Phosphate [Mass/Vol] 4.3 mg/dL Normal 2.5-4.9 [facility] Comment on above: Result Comment: The performance characteristics of phosphorus testing in heparinized plasma have been validated by the individual laboratory site where testing is performed. Testing on heparinized plasma is not approved by the FDA; however, such approval is not necessary. Performed By: #### 7 77-3 #### ERICA MCDONALD L ([id number]) [facility] ([facility]) [address] [place] [address] Potassium [Moles/Vol] 4.1 mmol/L Normal 3.5-5.3 [facility] Comment on above: Performed By: #### 7 77-3 #### ERICA Tam ([id number]) [facility] ([facility]) [address] [place] [address] 83151 Sodium [Moles/Vol] 134 mmol/L Low 136-145 [facility] Comment on above: Performed By: #### 7 77-3 #### ERICA Tam ([id number]) [facility] ([facility]) [address] [place] [address] 50249 Urea nitrogen [Mass/Vol] 38 mg/dL High 6-23 [facility] Comment on above: Performed By: #### 7 77-3 #### ERICA Tam ([id number]) [facility] ([facility]) [address] [place] [address] 79837 Glucose Test strip manual (B ld) [Mass/Vol]on 10-21-2023 Glucose [Mass/Vol] 189 mg/dL High 74-99 [facility] Comment on above: Performed By: #### 3 274-8 #### ERICA Tam ([id number]) [facility] ([facility]) [address] [place] [address] 04645 Glucose [Mass/Vol] 258 mg/dL High 7499 [facility] Comment on above: Performed By: #### 3 274-8 #### ERICA Tam ([id number]) [facility] ([facility]) [address] [place] [address] 59889 Glucose [Mass/Vol] 392 mg/dL High 74-[address] [place] [address] Comment on above: Performed By: #### 3 274-8 #### ERICA Tam ([id number]) [facility] ([facility]) [address] [place] [address] 83827 Glucose [Mass/Vol] 254 mg/dL High -[address] [place] [address] Comment on above: Performed By: #### 3 274-8 #### ERICA Tam ([id number]) [facility] ([facility]) [address] [place] [address], [place] [address] Glucose [Mass/Vol] 296 mg/dL High 74-99 [facility] Comment on above: Performed By: #### 3 274-8 #### ERICA Tam ([id number]) [facility] ([facility]) [address] [place] [address] 22472 CBC panel Auto (Bld)on 10-19 Erythrocyte distribution width (RBC) [Ratio] 14.6 % High 11.5-14.5 [facility] Comment on above: Performed By: #### 3 274-8 #### ERICA Tam ([id number]) [facility] ([facility]) [address] [place] [address] 73541 Hematocrit (Bld) [Volume fraction] 34.7 % Low 41.0-52.0 [facility] Comment on above: Performed By: #### 3 274-8 #### ERICA Tam ([id number]) [facility] ([facility]) [address] [place] [address] 34651 Hemoglobin (Bld) [Mass/Vol] 11.2 g/dL Low 13.5-17.5 [facility] Comment on above: Performed By: #### 3 274-8 #### ERICA Tam ([id number]) [facility] ([facility]) [address] [place] [address] 26049 MCH (RBC) [Entitic mass] 28.9 pg Normal 26.0-34.0 [facility] Comment on above: Performed By: #### 3 274-8 #### ERICA Tam ([id number]) [facility] ([facility]) [address] [place] [address] 32416 MCHC (RBC) [Mass/Vol] 32.3 g/dL Normal 32.0-36.0 [facility] Comment on above: Performed By: #### 3 274-8 #### ERICA Tam ([id number]) [facility] ([facility]) [address] [place] [address] 56593 MCV (RBC) [Entitic vol] 89 fL Normal 80-100 [facility] Comment on above: Performed By: #### 3 274-8 #### ERICA Tam ([id number]) [facility] ([facility]) [address] [place] [address] 65617 Nucleated RBC/100 WBC (Bld) [Ratio] 0.0 /100 WBCs Normal 0.0-0.0 [facility] Comment on above: Performed By: #### 3 274-8 #### ERICA Tam ([id number]) [facility] ([facility]) [id number] [place] [address] 82157 Platelets (Bld) [#/Vol] 293 x10*3/uL Normal 150-450 [facility] Comment on above: Performed By: #### 3 274-8 #### ERICA Tam ([id number]) [facility] ([facility]) [address] [place] [address] 70876 RBC (Bld) [#/Vol] 3.88 x10*6/uL Low 4.50-5.90 [facility] Comment on above: Performed By: #### 3 274-8 #### ERICA Tam ([id number]) [facility] ([facility]) [address] [place] [address] 72290 WBC (Bld) [#/Vol] 8.6 x10*3/uL Normal 4.4-11.3 [facility] Comment on above: Performed By: #### 3 274-8 #### ERICA Tam ([id number]) [facility] ([facility]) [address] [place] [address] 16292 Glucose Test strip manual (B ld) [Mass/Vol]on 10-20-2023 Glucose [Mass/Vol] 298 mg/dL High 7499 [facility] Comment on above: Performed By: #### 3 274-8 #### ERICA Tam ([id number]) [facility] ([facility]) [address] [place] [address] 82042 Glucose [Mass/Vol] 298 mg/dL High 74-99 [facility] Comment on above: Performed By: #### 3 274-8 #### ERICA Tam ([id number]) [facility] ([facility]) [address] [place] [address] 96044 Glucose [Mass/Vol] 294 mg/dL High -[address] [place] [address] Comment on above: Performed By: #### T HYDS #### ERICA Tam ([id number]) [facility] ([facility]) [address] [place] [address] 28953 Glucose [Mass/Vol] 173 mg/dL High -[address] [place] [address] Comment on above: Performed By: #### T HYDS #### ERICA Tam ([id number]) [facility] ([facility]) [address] [place] [address] 95294 Glucose [Mass/Vol] 146 mg/dL High [address] [place] [address] Comment on above: Performed By: #### T HYDS #### ERICA Tam ([id number]) [facility] ([facility]) [address] [place] [address] 64229 Magnesiumon 10-20-2023 Magnesium [Mass/Vol] 1.74 mg/dL Normal 1.60-2.40 [facility] Comment on above: Performed By: #### 3 274-8 #### ERICA Tam ([id number]) [facility] ([facility]) [address] [place] [address] 44312 Renal function 2000 panelon 10-20-2023 Albumin BCP dye [Mass/Vol] 3.3 g/dL Low 3.4-5.0 [facility] Comment on above: Performed By: #### 3 274-8 #### ERICA Tam ([id number]) [facility] ([facility]) [address] [place] [address] 08243 Anion gap [Moles/Vol] 11 mmol/L Normal 10-20 [facility] Comment on above: Performed By: #### 3 274-8 #### ERICA Tam ([id number]) [facility] ([facility]) [address] [place] [address] Calcium [Mass/Vol] 8.5 mg/dL Low 8.6-10.6 [facility] Comment on above: Performed By: #### 3 274-8 #### ERICA Tam ([id number]) [facility] ([facility]) [address] [place] [address] Chloride [Moles/Vol] 102 mmol/L Normal 98-107 [facility] Comment on above: Performed By: #### 3 274-8 #### ERICA MCDONALD L ([id number]) [facility] ([facility]) [address] [place] [address] CO2 [Moles/Vol] 25 mmol/L Normal 21-32 [facility] Comment on above: Performed By: #### 3 274-8 #### ERICA Tam ([id number]) [facility] ([facility]) [address] [place] [address] Creatinine [Mass/Vol] 1.89 mg/dL High 0.50-1.30 [facility] Comment on above: Performed By: #### 3 274-8 #### ERICA MCDONALD L ([id number]) [facility] ([facility]) [address] [place] [address] 40394 Glomerular filtration rate/1.73 sq M.predicted 38 mL/min/1.73m*2 Low >60 [facility] Comment on above: Result Comment: Calc ulations of estimated GFR are performed using the 2020 CKD-EPI Study Refit equation without the race variable for the IDMS-Traceable creatinine methods. https://jasn.asnjournals.org/content//ASN.33255 84676 Performed By: #### 3 274-8 #### ERICA MCDONALD L ([id number]) [facility] ([facility]) [address] [place] [address] Glucose [Mass/Vol] 323 mg/dL High 74-99 [facility] Comment on above: Performed By: #### 3 274-8 #### ERICA Tam ([id number]) [facility] ([facility]) [address] [place] [address] 28181 Phosphate [Mass/Vol] 3.0 mg/dL Normal 2.5-4.9 [facility] Comment on above: Result Comment: The performance characteristics of phosphorus testing in heparinized plasma have been validated by the individual laboratory site where testing is performed. Testing on heparinized plasma is not approved by the FDA; however, such approval is not necessary. Performed By: #### 3 274-8 #### ERICA Tam ([id number]) [facility] ([facility]) [address] [place] [address] 89192 Potassium [Moles/Vol] 3.9 mmol/L Normal 3.5-5.3 [facility] Comment on above: Performed By: #### 3 274-8 #### ERICA Tam ([id number]) [facility] ([facility]) [address] [place] [address] 84698 Sodium [Moles/Vol] 134 mmol/L Low 136-145 [facility] Comment on above: Performed By: #### 3 274-8 #### ERICA Tam ([id number]) [facility] ([facility]) [address] [place] [address] 10209 Urea nitrogen [Mass/Vol] 31 mg/dL High 6-23 [facility] Comment on above: Performed By: #### 3 274-8 #### ERICA Tam ([id number]) [facility] ([facility]) [address] [place] [address] 23292 Glucose Test strip manual (B ld) [Mass/Vol]on 10-19-2023 Glucose [Mass/Vol] 355 mg/dL High 74-99 [facility] Comment on above: Performed By: #### T HYDS #### ERICA Tam ([id number]) [facility] ([facility]) [address] [place] [address] 17901 Glucose [Mass/Vol] 249 mg/dL High [address] [place] [address] Comment on above: Performed By: #### T HYDS #### ERICA Tam ([id number]) [facility] ([facility]) [address] [place] [address] 39239 Glucose [Mass/Vol] 274 mg/dL High [address] [place] [address] Comment on above: Performed By: #### T HYDS #### ERICA Tam ([id number]) [facility] ([facility]) [address] [place] [address] 29730 Glucose [Mass/Vol] 129 mg/dL High [address] [place] [address] Comment on above: Performed By: #### T HYDS #### ERICA Tam ([id number]) [facility] ([facility]) [address] [place] [address] 58806 Glucose [Mass/Vol] 121 mg/dL High [address] [place] [address] Comment on above: Performed By: #### T HYDS #### ERICA Tam ([id number]) [facility] ([facility]) [address] [place] [address] 38499 CBC panel Auto (Bld)on 10-17 Erythrocyte distribution width (RBC) [Ratio] 14.6 % High 11.5-14.5 [facility] Comment on above: Performed By: #### L IPIN #### ERICA Tam ([id number]) [facility] ([facility]) [address] [place] [address] 31972 Hematocrit (Bld) [Volume fraction] 34.3 % Low 41.0-52.0 [facility] Comment on above: Performed By: #### L IPIN #### ERICA Tam ([id number]) [facility] ([facility]) [address] [place] [address] 77935 Hemoglobin (Bld) [Mass/Vol] 10.7 g/dL Low 13.5-17.5 [facility] Comment on above: Performed By: #### L IPIN #### ERICA Tam ([id number]) [facility] ([facility]) [address] [place] [address] MCH (RBC) [Entitic mass] 28.7 pg Normal 26.0-34.0 [facility] Comment on above: Performed By: #### L IPIN #### ERICA Tam ([id number]) [facility] ([facility]) [address] [place] [address] 72274 MCHC (RBC) [Mass/Vol] 31.2 g/dL Low 32.0-36.0 [facility] Comment on above: Performed By: #### L IPIN #### ERICA Tam ([id number]) [facility] ([facility]) [address] [place] [address] 43982 MCV (RBC) [Entitic vol] 92 fL Normal 80-100 [facility] Comment on above: Performed By: #### L IPIN #### ERICA Tam ([id number]) [facility] ([facility]) [address] [place] [address] 70285 Nucleated RBC/100 WBC (Bld) [Ratio] 0.0 /100 WBCs Normal 0.0-0.0 [facility] Comment on above: Performed By: #### L IPIN #### ERICA Tam ([id number]) [facility] ([facility]) [address] [place] [address] 94916 Platelets (Bld) [#/Vol] 295 x10*3/uL Normal 150-450 [facility] Comment on above: Performed By: #### L IPIN #### ERCIA Tam ([id number]) [facility] ([facility]) [address] [place] [address] 88335 RBC (Bld) [#/Vol] 3.73 x10*6/uL Low 4.50-5.90 [facility] Comment on above: Performed By: #### L IPIN #### ERICA Tam ([id number]) [facility] ([facility]) [address] [place] [address] 94730 WBC (Bld) [#/Vol] 7.2 x10*3/uL Normal 4.4-11.3 [facility] Comment on above: Performed By: #### L IPIN #### ERICA Tam ([id number]) [facility] ([facility]) [address] [place] [address] 91287 Glucose Test strip manual (B ld) [Mass/Vol]on 10-18-2023 Glucose [Mass/Vol] 169 mg/dL High [address] [place] [address] Comment on above: Performed By: #### T HYDS #### ERICA Tam ([id number]) [facility] ([facility]) [address] [place] [address] 32153 Glucose [Mass/Vol] 238 mg/dL High [address] [place] [address] Comment on above: Performed By: #### L IPIN #### ERICA Tam ([id number]) [facility] ([facility]) [address] [place] [address] 71491 Glucose [Mass/Vol] 251 mg/dL High [address] [place] [address] Comment on above: Performed By: #### L IPIN #### ERICA Tam ([id number]) [facility] ([facility]) [address] [place] [address] 14057 Glucose [Mass/Vol] 191 mg/dL High [address] [place] [address] Comment on above: Performed By: #### L IPIN #### ERICA Tam ([id number]) [facility] ([facility]) [address] [place] [address] 88564 Heparin.unfractionatedon Heparin unfractionated Chromogenic method Qn (PPP) 0.4 IU/mL Normal See Comment Below for Therapeutic Ranges [facility] Comment on above: Order Comment: When [...] please refer to local Pharmacy and the [facility] Guidelines for Anticoagulation Therapy available on the [facility] intranet at: [email or web address]/Pages/Clive_ ospitals_Guidelines_for_Anticoagu.aspx Performed By: #### L IPIN #### ERICA Tam ([id number]) [facility] ([facility]) [address] [place] [address] 98746 Magnesiumon 10-18-2023 Magnesium [Mass/Vol] 1.77 mg/dL Normal 1.60-2.40 [facility] Comment on above: Performed By: #### L IPIN #### ERICA Tam ([id number]) [facility] ([facility]) [address] [place] [address] 95999 Renal function 2000 panelon 10-18-2023 Albumin BCP dye [Mass/Vol] 3.3 g/dL Low 3.4-5.0 [facility] Comment on above: Performed By: #### T HYDS #### ERICA Tam ([id number]) [facility] ([facility]) [address] [place] [address] 56773 Anion gap [Moles/Vol] 12 mmol/L Normal 10-20 [facility] Comment on above: Performed By: #### T HYDS #### ERICA Tam ([id number]) [facility] ([facility]) [address] [place] [address] 92989 Calcium [Mass/Vol] 8.5 mg/dL Low 8.6-10.6 [facility] Comment on above: Performed By: #### T HYDS #### ERICA Tam ([id number]) [facility] ([facility]) [address] [place] [address] 01405 Chloride [Moles/Vol] 103 mmol/L Normal 98-107 [facility] Comment on above: Performed By: #### T HYDS #### ERICA Tam ([id number]) [facility] ([facility]) [address] [place] [address] CO2 [Moles/Vol] 26 mmol/L Normal 21-32 [facility] Comment on above: Performed By: #### T HYDS #### ERICA Tam ([id number]) [facility] ([facility]) [address] [place] [address] Creatinine [Mass/Vol] 1.58 mg/dL High 0.50-1.30 [facility] Comment on above: Performed By: #### T HYDS #### ERICA Tam ([id number]) [facility] ([facility]) [address] [place] [address] Glomerular filtration rate/1.73 sq M.predicted 47 mL/min/1.73m*2 Low >60 [facility] Comment on above: Result Comment: Calc ulations of estimated GFR are performed using the 2020 CKD-EPI Study Refit equation without the race variable for the IDMS-Traceable creatinine methods. https://jasn.asnjournals.org/content/early/ASN.41744 46221 Performed By: #### T HYDS #### ERICA Tam ([id number]) [facility] ([facility]) [address] [place] [address] Glucose [Mass/Vol] 220 mg/dL High 74-99 [facility] Comment on above: Performed By: #### T HYDS #### ERICA Tam ([id number]) [facility] ([facility]) [address] [place] [address] Phosphate [Mass/Vol] 2.8 mg/dL Normal 2.5-4.9 [facility] Comment on above: Result Comment: The performance characteristics of phosphorus testing in heparinized plasma have been validated by the individual laboratory site where testing is performed. Testing on heparinized plasma is not approved by the FDA; however, such approval is not necessary. Performed By: #### T HYDS #### ERICA Tam ([id number]) [facility] ([facility]) [address] [place] [address] 35452 Potassium [Moles/Vol] 4.1 mmol/L Normal 3.5-5.3 [facility] Comment on above: Performed By: #### T HYDS #### ERICA Tam ([id number]) [facility] ([facility]) [address] [place] [address] 42592 Sodium [Moles/Vol] 137 mmol/L Normal 136-145 [facility] Comment on above: Performed By: #### T HYDS #### ERICA Tam ([id number]) [facility] ([facility]) [address] [place] [address] 09542 Urea nitrogen [Mass/Vol] 25 mg/dL High 6-23 [facility] Comment on above: Performed By: #### T HYDS #### ERICA Tam ([id number]) [facility] ([facility]) [address] [place] [address] 33360 CBC panel Auto (Bld)on 10-16 Erythrocyte distribution width (RBC) [Ratio] 14.5 % Normal 11.5-14.5 [facility] Comment on above: Performed By: #### 2 4323-8 #### ERICA Tam ([id number]) [facility] ([facility]) [address] [place] [address] 10352 Hematocrit (Bld) [Volume fraction] 35.2 % Low 41.0-52.0 [facility] Comment on above: Performed By: #### 2 4323-8 #### ERICA Tam ([id number]) [facility] ([facility]) [address] [place] [address] 79722 Hemoglobin (Bld) [Mass/Vol] 11.1 g/dL Low 13.5-17.5 [facility] Comment on above: Performed By: #### 2 4323-8 #### ERICA Tam ([id number]) [facility] ([facility]) [address] [place] [address] 29439 MCH (RBC) [Entitic mass] 29.1 pg Normal 26.0-34.0 [facility] Comment on above: Performed By: #### 2 4323-8 #### ERICA Tam ([id number]) [facility] ([facility]) [address] [place] [address] 40591 MCHC (RBC) [Mass/Vol] 31.5 g/dL Low 32.0-36.0 [facility] Comment on above: Performed By: #### 2 4323-8 #### ERICA Tam ([id number]) [facility] ([facility]) [address] [place] [address] 33034 MCV (RBC) [Entitic vol] 92 fL Normal 80-100 [facility] Comment on above: Performed By: #### 2 4323-8 #### ERICA Tam ([id number]) [facility] ([facility]) [address] [place] [address] 49162 Nucleated RBC/100 WBC (Bld) [Ratio] 0.0 /100 WBCs Normal 0.0-0.0 [facility] Comment on above: Performed By: #### 2 4323-8 #### ERICA Tam ([id number]) [facility] ([facility]) [address] [place] [address] 84928 Platelets (Bld) [#/Vol] 316 x10*3/uL Normal 150-450 [facility] Comment on above: Performed By: #### 2 4323-8 #### ERICA Tam ([id number]) [facility] ([facility]) [address] [place] [address] 18133 RBC (Bld) [#/Vol] 3.82 x10*6/uL Low 4.50-5.90 [facility] Comment on above: Performed By: #### 2 4323-8 #### ERICA Tam ([id number]) [facility] ([facility]) [address] [place] [address] 71558 WBC (Bld) [#/Vol] 8.6 x10*3/uL Normal 4.4-11.3 [facility] Comment on above: Performed By: #### 2 4323-8 #### ERICA Tam ([id number]) [facility] ([facility]) [address] [place] [address] 01084 Glucose Test strip manual (B ld) [Mass/Vol]on 10-17-2023 Glucose [Mass/Vol] 217 mg/dL High [address] [place] [address] Comment on above: Performed By: #### L IPIN #### ERICA Tam ([id number]) [facility] ([facility]) [address] [place] [address] 32873 Glucose [Mass/Vol] 271 mg/dL High [address] [place] [address] Comment on above: Performed By: #### 2 4323-8 #### ERICA Tam ([id number]) [facility] ([facility]) [address] [place] [address] 22188 Glucose [Mass/Vol] 189 mg/dL High [address] [place] [address] Comment on above: Performed By: #### 2 4323-8 #### ERICA Tam ([id number]) [facility] ([facility]) [address] [place] [address] 78067 Glucose [Mass/Vol] 256 mg/dL High [address] [place] [address] Comment on above: Performed By: #### 2 4323-8 #### ERICA Tam ([id number]) [facility] ([facility]) [address] [place] [address] 06425 Glucose [Mass/Vol] 176 mg/dL High [address] [place] [address] Comment on above: Performed By: #### 1 4979-9 #### ERICA Tam ([id number]) [facility] ([facility]) [address] [place] [address] 28346 Heparin.unfractionatedon Heparin unfractionated Chromogenic method Qn (PPP) 0.3 IU/mL Normal See Comment Below for Therapeutic Ranges [facility] Comment on above: Order Comment: Obtai [...] please refer to local Pharmacy and the [facility] Guidelines for Anticoagulation Therapy available on the [facility] intranet at: [email or web address]/Pages/Clive_ ospitals_Guidelines_for_[email or web address].aspx Performed By: #### 2 4323-8 #### ERICA Tam ([id number]) [facility] ([facility]) [address] [place] [address] Heparin unfractionated Chromogenic method Qn (PPP) 0.5 IU/mL Normal See Comment Below for Therapeutic Ranges [facility] Comment on above: Order Comment: Obtai [...] please refer to local Pharmacy and the [facility] Guidelines for Anticoagulation Therapy available on the [facility] intranet at: [email or web address]/Pharmacy/Pages/Clive_ ospitals_Guidelines_for_[email or web address].aspx Performed By: #### 2 4323-8 #### ERICA Tam ([id number]) [facility] ([facility]) [address] [place] [id number] Heparin unfractionated Chromogenic method Qn (PPP) 0.2 IU/mL Normal See Comment Below for Therapeutic Ranges [facility] Comment on above: Order Comment: Prior to initiating heparin if not obtained in prior 48 hours. Nursing to release order. The APTT is no longer used for monitoring Unfractionated Heparin Therapy. For monitoring Heparin Therapy, use the Heparin Assay. Performed By: #### 1 4979-9 #### ERICA Tam ([id number]) [facility] ([facility]) [id number] [place] [address] Magnesiumon 10-17-2023 Magnesium [Mass/Vol] 1.94 mg/dL Normal 1.60-2.40 [facility] Comment on above: Performed By: #### L IPIN #### ERICA Tam ([id number]) [facility] ([facility]) [id number] [place] [phone] Renal function 2000 panelon 10-17-2023 Albumin BCP dye [Mass/Vol] 3.1 g/dL Low 3.4-5.0 [facility] Comment on above: Performed By: #### L IPIN #### ERICA Tam ([id number]) [facility] [facility] ([facility]) [address] [place] [address] 04577 Anion gap [Moles/Vol] 9 mmol/L Low 10-20 [facility] Comment on above: Performed By: #### L IPIN #### ERICA Tam ([id number]) [facility] ([facility]) [address] [place] [address] 35756 Calcium [Mass/Vol] 8.2 mg/dL Low 8.6-10.6 [facility] Comment on above: Performed By: #### L IPIN #### ERICA Tam ([id number]) [facility] ([facility]) [id number] [place] [address] 24220 Chloride [Moles/Vol] 104 mmol/L Normal 98-107 [facility] Comment on above: Performed By: #### L IPIN #### ERICA Tam ([id number]) [facility] ([facility]) [address] [place] [address] 23643 CO2 [Moles/Vol] 28 mmol/L Normal 21-32 [facility] Comment on above: Performed By: #### L IPIN #### ERICA Tam ([id number]) [facility] ([facility]) [id number] [place] [address] 50859 Creatinine [Mass/Vol] 1.35 mg/dL High 0.50-1.30 [facility] Comment on above: Performed By: #### L IPIN #### ERICA Tam ([id number]) [facility] ([facility]) [address] [place] [address] 47759 Glomerular filtration rate/1.73 sq M.predicted 57 mL/min/1.73m*2 Low >60 [facility] Comment on above: Result Comment: Calc ulations of estimated GFR are performed using the 2020 CKD-EPI Study Refit equation without the race variable for the IDMS-Traceable creatinine methods. https://jasn.asnjournals.org/content/early/ASN.79271 26008 Performed By: #### L IPIN #### ERICA Tam ([id number]) [facility] ([facility]) [address] [place] [address] 85727 Glucose [Mass/Vol] 274 mg/dL High 74-99 [facility] Comment on above: Performed By: #### L IPIN #### ERICA Tam ([id number]) [facility] ([facility]) [address] [place] [address] 34602 Phosphate [Mass/Vol] 2.5 mg/dL Normal 2.5-4.9 [facility] Comment on above: Result Comment: The performance characteristics of phosphorus testing in heparinized plasma have been validated by the individual laboratory site where testing is performed. Testing on heparinized plasma is not approved by the FDA; however, such approval is not necessary. Performed By: #### L IPIN #### ERICA Tam ([id number]) [facility] ([facility]) [address] [place] [address] Potassium [Moles/Vol] 4.3 mmol/L Normal 3.5-5.3 [facility] Comment on above: Performed By: #### L IPIN #### ERICA Tam ([id number]) [facility] ([facility]) [address] [place] [address] 58737 Sodium [Moles/Vol] 137 mmol/L Normal 136-145 [facility] Comment on above: Performed By: #### L IPIN #### ERICA Tam ([id number]) [facility] ([facility]) [address] [place] [address] 86493 Urea nitrogen [Mass/Vol] 27 mg/dL High 6-23 [facility] Comment on above: Performed By: #### L IPIN #### ERICA aTm ([id number]) [facility] ([facility]) [address] [place] [address] 43394 [facility] US ANKLE BRACHIAL INDEX (LUCIO) WITHOUT EXERCISEon 10-17-2023 [facility] US ANKLE BRACHIAL INDEX (LUCIO) WITHOUT EXERCISE [address] [address] and Vascular Lab Report [facility] US ANKLE BRACHIAL INDEX (LUCIO) WITHOUT EXERCISE Patient Name: ITALIA Alfaro Physician: [id number] Marshal Nolan MD Study Date: 10/17/2023 Ordering [id number] RU Mina Physician: CUATE MRN/PID: [id number] Technologist: Sandy Smith [facility] Technologist 2: Date of /Age: 5 1955 years Gender: M Admission Status: Inpatient Location [facility] Performed: Diagnosis/ICD: Peripheral vascular disease, unspecified-I73.9 CPT Codes: 42249 Peripheral artery LUCIO Only CONCLUSIONS: Right Lower [...] Left Brachial Pressure 155 mmHg 149 mmHg [id number] Nolan MD Final Normal [facility] US CAROTID ARTERY DUPLE X BILATERALon 10-17-2023 VAS US CAROTID ARTERY DUPLEX BILATERAL [place] [address] and Vascular Lab Report [facility] US CAROTID ARTERY DUPLEX BILATERAL Patient Name: ITALIA Alfaro Physician: Myriam Nolan MD Study Date: 10/17/2023 Ordering [id number] RU Mina Physician: CUATE MRN/PID: [id number] Technologist: Gallito HARTMANN Technologist 2: Date of /Age: 5 1955 years Gender: M Admission Status: Inpatient Location [facility] Performed: Diagnosis/ICD: Encounter for preprocedural cardiovascular examination-Z01.810 Indication: Pre-Op CABG CPT Codes: 83622 Cerebrovascular Carotid Duplex scan complete Patient History [...] cm/s Right Left ICA/CCA Ratio 0.0 1.3 [id number] Nolan MD Final [facility] US LOWER EXTREMITY VEIN MAPPING BILATERALon 10-17-2023 [facility] US LOWER EXTREMITY VEIN MAPPING BILATERAL [place] [address] and Vascular Lab Report [facility] US LOWER EXTREMITY VEIN MAPPING BILATERAL Patient Name: ITALIA ALLEN Angelina Physician: [id number] Nolan MD Study Date: 10/17/2023 Ordering 12589 RU Mina Physician: CUATE MRN/PID: [id number] Technologist: Gallito Maire [facility] Technologist 2: Date of /Age: 5 1955 years Gender: M Admission Status: Inpatient Location [facility] Performed: Diagnosis/ICD: Encounter for preprocedural cardiovascular examination-Z01.810 Indication: Pre-operative exam CPT Codes: 39908 Vein mapping complete Patient History CAD. CONCLUSIONS: [...] Dist Calf GSV Yes None 1.0 mm [id number] Marshal Nolan MD Final Normal [facility] CBC panel Auto (Bld)on 10-15 Erythrocyte distribution width (RBC) [Ratio] 14.4 % Normal 11.5-14.5 [facility] Comment on above: Performed By: #### 1 4979-9 #### ERICA Tam ([id number]) [facility] ([facility]) [address] [place] [address] 79705 Hematocrit (Bld) [Volume fraction] 33.4 % Low 41.0-52.0 [facility] Comment on above: Performed By: #### 1 4979-9 #### ERICA Tam ([id number]) [facility] ([facility]) [address] [place] [address] 18868 Hemoglobin (Bld) [Mass/Vol] 10.5 g/dL Low 13.5-17.5 [facility] Comment on above: Performed By: #### 1 4979-9 #### ERICA Tam ([id number]) [facility] ([facility]) [address] [place] [address] 15143 MCH (RBC) [Entitic mass] 28.5 pg Normal 26.0-34.0 [facility] Comment on above: Performed By: #### 1 4979-9 #### ERICA Tam ([id number]) [facility] ([facility]) [address] [place] [address] MCHC (RBC) [Mass/Vol] 31.4 g/dL Low 32.0-36.0 [facility] Comment on above: Performed By: #### 1 4979-9 #### ERICA Tam ([id number]) [facility] ([facility]) [address] [place] [address] 47480 MCV (RBC) [Entitic vol] 91 fL Normal 80-100 [facility] Comment on above: Performed By: #### 1 4979-9 #### ERICA Tam ([id number]) [facility] ([facility]) [address] [place] [address] 25249 Nucleated RBC/100 WBC (Bld) [Ratio] 0.0 /100 WBCs Normal 0.0-0.0 [facility] Comment on above: Performed By: #### 1 4979-9 #### ERICA Tam ([id number]) [facility] ([facility]) [address] [place] [address] 61721 Platelets (Bld) [#/Vol] 283 x10*3/uL Normal 150-450 [facility] Comment on above: Performed By: #### 1 4979-9 #### ERICA MCDONALD L ([id number]) [facility] ([facility]) [address] [place] [address] 46661 RBC (Bld) [#/Vol] 3.69 x10*6/uL Low 4.50-5.90 [facility] Comment on above: Performed By: #### 1 4979-9 #### ERICA MCDONALD L ([id number]) [facility] ([facility]) [address] [place] [address] 99503 WBC (Bld) [#/Vol] 8.2 x10*3/uL Normal 4.4-11.3 [facility] Comment on above: Performed By: #### 1 4979-9 #### ERICA Tam ([id number]) [facility] ([facility]) [address] [place] [address] 29562 Erythrocyte distribution width (RBC) [Ratio] 14.6 % High 11.5-14.5 [facility] Comment on above: Performed By: #### 5 8410-2 #### ERICA Tam ([id number]) [facility] ([facility]) [address] [place] [address] 14082 Hematocrit (Bld) [Volume fraction] 35.2 % Low 41.0-52.0 [facility] Comment on above: Performed By: #### 5 8410-2 #### ERICA Tam ([id number]) [facility] ([facility]) [address] [place] [address] 96264 Hemoglobin (Bld) [Mass/Vol] 11.4 g/dL Low 13.5-17.5 [facility] Comment on above: Performed By: #### 5 8410-2 #### ERICA Tam ([id number]) [facility] ([facility]) [address] [place] [address] 66698 MCH (RBC) [Entitic mass] 29.3 pg Normal 26.0-34.0 [facility] Comment on above: Performed By: #### 5 8410-2 #### ERICA Tam ([id number]) [facility] ([facility]) [address] [place] [address] 10370 MCHC (RBC) [Mass/Vol] 32.4 g/dL Normal 32.0-36.0 [facility] Comment on above: Performed By: #### 5 8410-2 #### ERICA Tam ([id number]) [facility] ([facility]) [address] [place] [address] 76175 MCV (RBC) [Entitic vol] 91 fL Normal 80-100 [facility] Comment on above: Performed By: #### 5 8410-2 #### ERICA Tam ([id number]) [facility] ([facility]) [address] [place] [address] 60249 Nucleated RBC/100 WBC (Bld) [Ratio] 0.0 /100 WBCs Normal 0.0-0.0 [facility] Comment on above: Performed By: #### 5 8410-2 #### ERICA Tam ([id number]) [facility] ([facility]) [address] [place] [address] 90873 Platelets (Bld) [#/Vol] 285 x10*3/uL Normal 150-450 [facility] Comment on above: Performed By: #### 5 8410-2 #### ERICA Tam ([id number]) [facility] ([facility]) [address] [place] [address] 80146 RBC (Bld) [#/Vol] 3.89 x10*6/uL Low 4.50-5.90 [facility] Comment on above: Performed By: #### 5 8410-2 #### ERICA Tam ([id number]) [facility] ([facility]) [address] [place] [address] 28445 WBC (Bld) [#/Vol] 9.3 x10*3/uL Normal 4.4-11.3 [facility] Comment on above: Performed By: #### 5 8410-2 #### ERICA Tam ([id number]) [facility] ([facility]) [address] [place] [address] 61542 Coagulation surface inducedo n 10-16-2023 aPTT Coag (PPP) [Time] 30 s Normal 27-38 [facility] Comment on above: Order Comment: Prior to initiating heparin if not obtained in prior 48 hours. Nursing to release order. The APTT is no longer used for monitoring Unfractionated Heparin Therapy. For monitoring Heparin Therapy, use the Heparin Assay. Performed By: #### 1 4979-9 #### ERICA Tam ([id number]) [facility] ([facility]) [address] [place] [address] 43603 Coagulation tissue factor in ducedon 10-16-2023 PT Coag (PPP) [Time] 12.5 s Normal 9.8-12.8 [facility] Comment on above: Order Comment: If val monroe has not had PT + INR in the last 24 hours. Nursing to release order. Performed By: #### 5 902-2 #### ERICA Tam ([id number]) [facility] ([facility]) [address] [place] [address] 07482 Cobalaminson 10-16-2023 Cobalamin (Vitamin B12) [Mass/Vol] 201 pg/mL Low 211-911 [facility] Comment on above: Performed By: #### 5 902-2 #### ERICA Tam ([id number]) [facility] ([facility]) [address] [place] [address] 49851 Comprehensive metabolic 2000 panelon 10-16-2023 Albumin BCP dye [Mass/Vol] 3.3 g/dL Low 3.4-5.0 [facility] Comment on above: Performed By: #### 2 4323-8 #### ERICA Tam ([id number]) [facility] ([facility]) [address] [place] [address] 30097 ALP [Catalytic activity/Vol] 58 U/L Normal 33-136 [facility] Comment on above: Performed By: #### 2 4323-8 #### ERICA Tam ([id number]) [facility] ([facility]) [address] [place] [address] 49631 ALT With P-5'-P [Catalytic activity/Vol] 15 U/L Normal 10-52 [facility] Comment on above: Result Comment: Criselda ents treated with Sulfasalazine may generate falsely decreased results for ALT. Performed By: #### 2 4323-8 #### ERICA Tam ([id number]) [facility] ([facility]) [address] [place] [address] Anion gap [Moles/Vol] 13 mmol/L Normal 10-20 [facility] Comment on above: Performed By: #### 2 4323-8 #### ERICA Tam ([id number]) [facility] ([facility]) [address] [place] [address] 59816 AST With P-5'-P [Catalytic activity/Vol] 14 U/L Normal 9-39 [facility] Comment on above: Result Comment: MILD HEMOLYSIS DETECTED. The result may be falsely elevated due to hemolysis or other interferents. Clinical correlation is recommended. Repeat testing may be considered. Performed By: #### 2 4323-8 #### ERICA Tam ([id number]) [facility] ([facility]) [address] [place] [address] 08110 Bilirubin [Mass/Vol] 0.4 mg/dL Normal 0.0-1.2 [facility] Comment on above: Performed By: #### 2 4323-8 #### ERICA MCDONALD L ([id number]) [facility] ([facility]) [address] [place] [address] 18630 Calcium [Mass/Vol] 8.3 mg/dL Low 8.6-10.6 [facility] Comment on above: Performed By: #### 2 4323-8 #### ERICA MCDONALD L ([id number]) [facility] ([facility]) [address] [place] [address] 28937 Chloride [Moles/Vol] 102 mmol/L Normal 98-107 [facility] Comment on above: Performed By: #### 2 4323-8 #### ERICA RESTREPOMOTZER L ([id number]) [facility] ([facility]) [address] [place] [address] 12619 CO2 [Moles/Vol] 26 mmol/L Normal 21-32 [facility] Comment on above: Performed By: #### 2 4323-8 #### ERICA MCDONALD L ([id number]) [facility] ([facility]) [address] [place] [address] 36281 Creatinine [Mass/Vol] 1.64 mg/dL High 0.50-1.30 [facility] Comment on above: Performed By: #### 2 4323-8 #### ERICA RESTREPOMOTZLUZ L ([id number]) [facility] ([facility]) [address] [place] [address] Glomerular filtration rate/1.73 sq M.predicted 45 mL/min/1.73m*2 Low >60 [facility] Comment on above: Result Comment: Calc ulations of estimated GFR are performed using the 2020 CKD-EPI Study Refit equation without the race variable for the IDMS-Traceable creatinine methods. https://jasn.asnjournals.org/content//ASN.62156 68076 Performed By: #### 2 4323-8 #### ERICA Tam ([id number]) [facility] ([facility]) [address] [place] [address] 93342 Glucose [Mass/Vol] 173 mg/dL High 74-99 [facility] Comment on above: Performed By: #### 2 4323-8 #### ERICA MCDONALD L ([id number]) [facility] ([facility]) [address] [place] [address] 02474 Potassium [Moles/Vol] 4.3 mmol/L Normal 3.5-5.3 [facility] Comment on above: Result Comment: MILD HEMOLYSIS DETECTED. The result may be falsely elevated due to hemolysis or other interferents. Clinical correlation is recommended. Repeat testing may be considered. Performed By: #### 2 4323-8 #### ERICA MCDONALD L ([id number]) [facility] ([facility]) [address] [place] [address] 03594 Protein [Mass/Vol] 5.6 g/dL Low 6.4-8.2 [facility] Comment on above: Performed By: #### 2 4323-8 #### ERICA RESTREPOMOTZER L ([id number]) [facility] ([facility]) [address] [place] [address] 78373 Sodium [Moles/Vol] 137 mmol/L Normal 136-145 [facility] Comment on above: Performed By: #### 2 4323-8 #### ERICA RESTREPOMOTZER L ([id number]) [facility] ([facility]) [address] [place] [address] 54562 Urea nitrogen [Mass/Vol] 33 mg/dL High 6-23 [facility] Comment on above: Performed By: #### 2 4323-8 #### ERICA Tam ([id number]) [facility] ([facility]) [address] [place] [address] 96341 ECG 12-LEADon 10-16-2023 ECG 12-LEAD Ventricular Rate 85 Atrial Rate 85 P-R Interval 196 QRS Duration 100 Q-T Interval 392 QTC Calculation(Bazett) 466 P Huntington 40 R Huntington 54 T Huntington 51 QRS Count 14 Q Onset 222 P Onset 124 P Offset 185 T Offset 418 QTC Fredericia 440 Diagnosis Normal sinus rhythm Prolonged QT Abnormal ECG No previous ECGs available Confirmed by Mark Kennedy ([id number]) on 10/16/2023 5:14:12 PM Normal [facility] Ferritinon 10-16-2023 Ferritin [Mass/Vol] 184 ng/mL Normal 20-300 [facility] Comment on above: Performed By: #### 5 902-2 #### ERICA Tam ([id number]) [facility] ([facility]) [address] [place] [address] 57466 Folateon 10-16-2023 Folate [Mass/Vol] 10.0 ng/mL Normal >5.[address] [facility] Comment on above: Order Comment: If val monroe has not had PT + INR in the last 24 hours. Nursing to release order. Performed By: #### 5 902-2 #### ERICA Tam ([id number]) [facility] ([facility]) [address] [place] [address] 36479 Gas and Carbon monoxide pane l (BldA)on 10-16-2023 Base excess Calc (Bld) [Moles/Vol] -0.5000 mmol/L Normal -2.0-3.0 [facility] Comment on above: Performed By: #### 1 4979-9 #### ERICA Tam ([id number]) [facility] ([facility]) [address] [place] [address] 10023 Carboxyhemoglobin (BldA) [Mass fraction] 3.1 % Normal [facility] Comment on above: Result Comment: Ref Values Non-Smokers 0.5-1.5% Smokers 0.5-10.0% Performed By: #### 1 4979-9 #### ERICA Tam ([id number]) [facility] ([facility]) [address] [place] [address] 57846 CO2 (Bld) [Partial pressure] 39 mm Hg Normal 38-42 [facility] Comment on above: Performed By: #### 1 4979-9 #### ERICA Tam ([id number]) [facility] ([facility]) [address] [place] [address] 94901 Deoxyhemoglobin (BldA) [Mass fraction] 4.8 % Normal 0.0-5.0 [facility] Comment on above: Performed By: #### 1 4979-9 #### ERICA Tam ([id number]) [facility] ([facility]) [address] [place] [address] 88807 HCO3 (Bld) [Moles/Vol] 24.2 mmol/L Normal 22.0-26.0 [facility] Comment on above: Performed By: #### 1 4979-9 #### ERICA Tam ([id number]) [facility] ([facility]) [address] [place] [address] 06033 Hemoglobin (Bld) [Mass/Vol] 11.3 g/dL Low 13.5-17.5 [facility] Comment on above: Performed By: #### 1 4979-9 #### ERICA Tam ([id number]) [facility] ([facility]) [address] [place] [address] 67127 Methemoglobin (BldA) [Mass fraction] 0.0 % Normal 0.0-1.5 [facility] Comment on above: Performed By: #### 1 4979-9 #### ERICA Tam ([id number]) [facility] ([facility]) [address] [place] [address] 68767 Oxygen (Bld) [Partial pressure] 67 mm Hg Low 85-95 [facility] Comment on above: Performed By: #### 1 4979-9 #### ERICA Tam ([id number]) [facility] ([facility]) [address] [place] [address] 53372 Oxyhemoglobin (BldA) [Mass fraction] 92.2 % Low 94.0-98.0 [facility] Comment on above: Performed By: #### 1 4979-9 #### ERICA Tam ([id number]) [facility] ([facility]) [address] [place] [address] 95393 pH (Bld) 7.40 [pH] Normal 7.38-7.42 [facility] Comment on above: Performed By: #### 1 4979-9 #### ERICA Tam ([id number]) [facility] ([facility]) [address] [place] [address] 48006 Glucose Test strip manual (B ld) [Mass/Vol]on 10-16-2023 Glucose [Mass/Vol] 151 mg/dL High 74-99 [facility] Comment on above: Performed By: #### 1 4979-9 #### ERICA Tam ([id number]) [facility] ([facility]) [address] [place] [address] 89227 Glucose [Mass/Vol] 261 mg/dL High [address] [place] [address] Comment on above: Performed By: #### 1 4979-9 #### ERICA Tam ([id number]) [facility] ([facility]) [address] [place] [address] 53949 Glucose [Mass/Vol] 170 mg/dL High -[address] [place] [address] Comment on above: Performed By: #### 5 902-2 #### ERICA Tam ([id number]) [facility] ([facility]) [address] [place] [address] 14573 HbA1c (Bld) [Mass fraction]o n 10-16-2023 Average glucose Estimated from glycated hemoglobin (Bld) [Mass/Vol] 148 mg/dL Normal Not Established [facility] Comment on above: Order Comment: If val monroe has not had PT + INR in the last 24 hours. Nursing to release order. Performed By: #### 5 902-2 #### ERICA Tam ([id number]) [facility] ([facility]) [address] [place], [place] [phone] Hemoglobin A1c/Hemoglobin.to guero 10-16-2023 HbA1c (Bld) [Mass fraction] 6.8 % High see below [facility] Comment on above: Order Comment: If val monroe has not had PT + INR in the last 24 hours. Nursing to release order. Performed By: #### 5 902-2 #### ERICA Tam ([id number]) [facility] ([facility]) [address] [place], [place] [phone] Heparin.unfractionatedon Heparin unfractionated Chromogenic method Qn (PPP) 0.3 IU/mL Normal See Comment Below for Therapeutic Ranges [facility] Comment on above: Order Comment: Prior to initiating heparin if not obtained in prior 48 hours. Nursing to release order. The APTT is no longer used for monitoring Unfractionated Heparin Therapy. For monitoring Heparin Therapy, use the Heparin Assay. Performed By: #### 1 [id number] #### ERICA Tam ([id number]) [facility] ([facility]) [address] [place] [address] Heparin unfractionated Chromogenic method Qn (PPP) 0.2 IU/mL Normal See Comment Below for Therapeutic Ranges [facility] Comment on above: Order Comment: Prior to initiating heparin if not obtained in prior 48 hours. Nursing to release order. The APTT is no longer used for monitoring Unfractionated Heparin Therapy. For monitoring Heparin Therapy, use the Heparin Assay. Performed By: #### 1 4979-9 #### ERICA Tam ([id number]) [facility] ([facility]) [address] [place], [place] [id number] Heparin unfractionated Chromogenic method Qn (PPP) 0.1 IU/mL Normal See Comment Below for Therapeutic Ranges [facility] Comment on above: Order Comment: If val monroe has not had PT + INR in the last 24 hours. Nursing to release order. Performed By: #### 5 902-2 #### ERICA Tam ([id number]) [facility] ([facility]) [address] [place] [address] 45895 Heparin unfractionated Chromogenic method Qn (PPP) 0.1 IU/mL Normal See Comment Below for Therapeutic Ranges [facility] Comment on above: Order Comment: Obtai [...] please refer to local Pharmacy and the [facility] Guidelines for Anticoagulation Therapy available on the [facility] intranet at: [email or web address] Performed By: #### 3 274-8 #### ERICA Tam ([id number]) [facility] ([facility]) [address] [place] [address] 37964 Iron and Iron binding capaci ty panelon 10-16-2023 Iron [Mass/Vol] 33 ug/dL Low 35-150 [facility] Comment on above: Result Comment: MILD HEMOLYSIS DETECTED. The result may be falsely elevated due to hemolysis or other interferents. Clinical correlation is recommended. Repeat testing may be considered. Performed By: #### 5 902-2 #### ERICA Tam ([id number]) [facility] ([facility]) [address] [place] [address] Iron binding capacity [Mass/Vol] 285 ug/dL Normal 240-445 [facility] Comment on above: Performed By: #### 5 902-2 #### ERICA Tam ([id number]) [facility] ([facility]) [address] [place] [address] Iron binding capacity.unsaturated [Mass/Vol] 252 ug/dL Normal 110-370 [facility] Comment on above: Performed By: #### 5 902-2 #### ERICA Tam ([id number]) [facility] ([facility]) [address] [place] [address] Iron saturation [Mass fraction] 12 % Low 25-45 [facility] Comment on above: Performed By: #### 5 902-2 #### ERICA Tam ([id number]) [facility] ([facility]) [id number] [place] [address] 34519 LIPID PANEL NON-FASTINGon Cholesterol [Mass/Vol] 114 mg/dL Normal 0-199 Un [facility] Comment on above: Result Comment: Age Desirable [...] By: #### L IPIN #### ERICA Tam ([id number]) [facility] ([facility]) [address] [place] [address] 30349 Cholesterol in HDL [Mass/Vol] 25.8 mg/dL Normal [facility] Comment on above: Result Comment: Age Very Low Low Normal High 0-19 Y < 35 < 40 40-45 ---- 20-24 Y ---- < 40 >45 ---- >24 Y ---- < 40 40-60 >60 Performed By: #### L IPIN #### ERCIA Tam ([id number]) [facility] ([facility]) [address] [place] [address] 17647 CHOLESTEROL/HDL RATIO 4.4 Normal [facility] Comment on above: Result Comment: Ref Values Desirable < 3.4 High Risk > 5.0 Performed By: #### L IPIN #### ERICA Tam ([id number]) [facility] ([facility]) [address] [place] [address] 42385 NON-HDL CHOLESTEROL 88 mg/dL Normal 0-149 [facility] Comment on above: Result Comment: Age Desiable Borderline High High Very High 0-19 Y 0 - 119 120 - 144 >/= 145 >/= 160 20-24 Y 0 - 149 150 - 189 >/= 190 ---- >24 Y 30 MG/DL ABOVE LDL CHOLESTEROL GOAL Performed By: #### L IPIN #### ERICA Tam ([id number]) [facility] ([facility]) [address] [place] [address] 45882 Magnesiumon 10-16-2023 Magnesium [Mass/Vol] 1.84 mg/dL Normal 1.60-2.40 [facility] Comment on above: Performed By: #### 1 4979-9 #### ERICA Tam ([id number]) [facility] ([facility]) [address] [place] [address] 92361 Natriuretic peptide B [Mass/ Vol]on 10-16-2023 Natriuretic peptide B (Bld) [Mass/Vol] 88 pg/mL Normal 0-99 [facility] Comment on above: Order Comment: If val monroe has not had PT + INR in the last 24 hours. Nursing to release order. Performed By: #### 5 902-2 #### ERICA Tam ([id number]) [facility] ([facility]) [address] [place] [address] 23001 PT Coag (PPP) [Time]on 10-15 INR Coag (PPP) [Relative time] 1.1 Normal 0.9-1.1 [facility] Comment on above: Order Comment: If val monroe has not had PT + INR in the last 24 hours. Nursing to release order. Performed By: #### 5 902-2 #### ERICA Tam ([id number]) [facility] ([facility]) [address] [place] [address] 25586 Platelets Auto (Bld) [#/Vol] on 10-16-2023 Platelets (Bld) [#/Vol] 276 x10*3/uL Normal 150-450 [facility] Comment on above: Order Comment: Basel ine platelet count before any heparin given. May discontinue if platelet count already obtained today, or if heparin already administered. Performed By: #### 7 77-3 #### ERICA Tam ([id number]) [facility] ([facility]) [address] [place] [address] 84721 Renal function 2000 panelon 10-16-2023 Albumin BCP dye [Mass/Vol] 3.1 g/dL Low 3.4-5.0 [facility] Comment on above: Performed By: #### 1 4979-9 #### ERICA Tam ([id number]) [facility] ([facility]) [address] [place] [address] 79979 Anion gap [Moles/Vol] 15 mmol/L Normal 10-20 [facility] Comment on above: Performed By: #### 1 4979-9 #### ERICA MCDONALD L ([id number]) [facility] ([facility]) [address] [place] [address] 59420 Calcium [Mass/Vol] 8.2 mg/dL Low 8.6-10.6 [facility] Comment on above: Performed By: #### 1 4979-9 #### ERICA MCDONALD L ([id number]) [facility] ([facility]) [address] [place] [address] 61803 Chloride [Moles/Vol] 103 mmol/L Normal 98-107 [facility] Comment on above: Performed By: #### 1 4979-9 #### ERICA RESTREPOMOMARLENY L ([id number]) [facility] ([facility]) [address] [place] [address] 91808 CO2 [Moles/Vol] 24 mmol/L Normal 21-32 [facility] Comment on above: Performed By: #### 1 4979-9 #### ERICA MCDONALD L ([id number]) [facility] ([facility]) [address] [place] [address] 90251 Creatinine [Mass/Vol] 1.52 mg/dL High 0.50-1.30 [facility] Comment on above: Performed By: #### 1 4979-9 #### ERICA Tam ([id number]) [facility] ([facility]) [address] [place] [address] Glomerular filtration rate/1.73 sq M.predicted 49 mL/min/1.73m*2 Low >60 [facility] Comment on above: Result Comment: Calc ulations of estimated GFR are performed using the 2020 CKD-EPI Study Refit equation without the race variable for the IDMS-Traceable creatinine methods. https://jasn.asnjournals.org/content/early//ASN.05400 76947 Performed By: #### 1 4979-9 #### ERICA Tam ([id number]) [facility] ([facility]) [address] [place] [address] 39554 Glucose [Mass/Vol] 229 mg/dL High 74-99 [facility] Comment on above: Performed By: #### 1 4979-9 #### ERICA Tam ([id number]) [facility] ([facility]) [address] [place] [address] 44943 Phosphate [Mass/Vol] 3.1 mg/dL Normal 2.5-4.9 [facility] Comment on above: Result Comment: The performance characteristics of phosphorus testing in heparinized plasma have been validated by the individual laboratory site where testing is performed. Testing on heparinized plasma is not approved by the FDA; however, such approval is not necessary. Performed By: #### 1 4979-9 #### ERICA Tam ([id number]) [facility] ([facility]) [address] [place] [address] Potassium [Moles/Vol] 4.1 mmol/L Normal 3.5-5.3 [facility] Comment on above: Performed By: #### 1 4979-9 #### ERICA Tam ([id number]) [facility] ([facility]) [address] [place] [address] Sodium [Moles/Vol] 138 mmol/L Normal 136-145 [facility] Comment on above: Performed By: #### 1 4979-9 #### ERICA Tam ([id number]) [facility] ([facility]) [address] [place] [address] Urea nitrogen [Mass/Vol] 32 mg/dL High 6-23 [facility] Comment on above: Performed By: #### 1 4979-9 #### ERICA Tam ([id number]) [facility] ([facility]) [address] [place] [address] Staphylococcus aureus.methic illin resistant isolateon 10-16-2023 MRSA isol Org specific cx Ql (Nose) Test: Staphylococcus aureus/MRSA colonization, Culture Specimen Source: Anterior Nares Specimen Type: Swab Specimen Date: 10/16/2023 1023 Result Date: 10/17/2023 1257 Result Status: Final result Abnormal: No Resulting Lab: [facility] [address] [place] [address] CULTURE No Staphylococcus aureus isolated Normal [facility] Comment on above: Performed By: #### 2 4323-8 #### ERICA Tam ([id number]) [facility] ([facility]) [address] [place] [address] TSH WITH REFLEX TO FREE T4 I F ABNORMALon 10-16-2023 TSH Qn 6.30 m[IU]/L High 0.44-3.98 [facility] Comment on above: Order Comment: TSH t esting is performed using different testing methodology at [facility] than at other [facility]. Direct result comparisons should only be made within the same method. Performed By: #### T HYDS #### ERICA Tam ([id number]) [facility] ([facility]) [address] [place], [place] [phone] Thyroxine.freeon 10-16-2023 Free T4 [Mass/Vol] 1.20 ng/dL Normal 0.78-1.48 [facility] Comment on above: Order Comment: If val monroe has not had PT + INR in the last 24 hours. Nursing to release order. Performed By: #### 5 902-2 #### ERICA Tam ([id number]) [facility] ([facility]) [address] [place] [address] 40722 Troponin I.cardiac panelon 0 10-16-2023 Tropinin I.cardiac panel High sensitivity method 916 ng/L Critically high 0-53 [facility] Comment on above: Order Comment: If val monroe has not had PT + INR in the last 24 hours. Nursing to release order. Performed By: #### 5 902-2 #### ERICA Tam ([id number]) [facility] ([facility]) [address] [place] [address] 03007 Urinalysis complete W Reflex Culture panel (U)on 10-16-2023 Appearance (U) Clear Normal Clear [facility] Comment on above: Performed By: #### 5 8077-9 #### ERICA Tam ([id number]) [facility] ([facility]) [address] [place] [address] 46788 Bilirubin (U) [Mass/Vol] Negative Normal NEGATIVE [facility] Comment on above: Performed By: #### 5 8077-9 #### ERICA Tam ([id number]) [facility] ([facility]) [address] [place] [address] 61915 Color (U) Light-Yellow Normal Light-Yellow , Yellow, Dark-Yellow [facility] Comment on above: Performed By: #### 5 8077-9 #### ERICA MCDONALD L ([id number]) [facility] ([facility]) [address] [place] [address] 90414 Glucose Auto test strip (U) [Mass/Vol] 50 (TRACE) Abnormal Normal [facility] Comment on above: Performed By: #### 5 8077-9 #### ERICA MCDONALD L ([id number]) [facility] ([facility]) [address] [place] [address] 36510 Ketones (U) [Mass/Vol] Negative Normal NEGATIVE [facility] on above: Performed By: #### 5 8077-9 #### ERICA Tam ([id number]) [facility] ([facility]) [address] [place] [address] 98207 Leukocyte esterase Auto test strip Ql (U) Negative Normal NEGATIVE [facility] Comment on above: Performed By: #### 5 8077-9 #### ERICA Tam ([id number]) [facility] ([facility]) [address] [place] [address] 02879 Mucus Auto (Urine sed) [#/Area] FEW Normal Reference range not established. [facility] Comment on above: Performed By: #### 5 8077-9 #### ERICA Tam ([id number]) [facility] ([facility]) [address] [place] [address] 81089 Nitrite Auto test strip Ql (U) Negative Normal NEGATIVE [facility] Comment on above: Performed By: #### 5 8077-9 #### ERICA Tam ([id number]) [facility] ([facility]) [address] [place] [address] 56959 pH (U) 5.0 [pH] Normal 5.0, 5.5, 6.0, 6.5, 7.0, 7.5, 8.0 [facility] Comment on above: Performed By: #### 5 8077-9 #### ERICA Tam ([id number]) [facility] ([facility]) [address] [place] [address] 73969 Protein (U) [Mass/Vol] 10 (TRACE) Normal NEGAT LE, 10 (TRACE), 20 (TRACE) [facility] Comment on above: Performed By: #### 5 8077-9 #### ERICA MCDONALD L ([id number]) [facility] ([facility]) [address] [place] [address] 10519 RBC (U) [#/Vol] Negative Normal NEGATIVE [facility] Comment on above: Performed By: #### 5 8077-9 #### ERICA ARREOLATZER L ([id number]) [facility] ([facility]) [address] [place] [address] RBC Auto (Urine sed) [#/Area] NONE Normal NONE, 1-2, 3-5 [facility] Comment on above: Performed By: #### 5 8077-9 #### ERICA SCHMOTZER L ([id number]) [facility] ([facility]) [address] [place] [address] 41266 Specific gravity (U) [Rel density] 1.026 Normal 1.005-1.035 [facility] Comment on above: Performed By: #### 5 8077-9 #### ERICA SCHMOTZER L ([id number]) [facility] ([facility]) [address] [place] [address] 55760 Urobilinogen (U) [Mass/Vol] Normal Normal Normal [facility] Comment on above: Performed By: #### 5 8077-9 #### ERICA RESTREPOMOTZER L ([id number]) [facility] ([facility]) [address] [place] [address] 91283 WBC Auto (Urine sed) [#/Area] 1-5 Normal 1-5, NONE [facility] Comment on above: Performed By: #### 5 8077-9 #### ERICA SCHMOTZER L ([id number]) [facility] ([facility]) [address] [place] [address] 03263 XR CHEST 2 VIEWSon XR CHEST 2 VIEWS Interpreted By: Rex Lambert, STUDY: XR CHEST 2 VIEWS; 10/16/2023 2:01 pm INDICATION: Signs/Symptoms:CABG evaluation. COMPARISON: None. ACCESSION NUMBER(S): [id number] ORDERING CLINICIAN: CATIA PATTON FINDINGS: CARDIOMEDIASTINAL SILHOUETTE: Cardiomegaly versus pericardial effusion. Right hilar calcifications. LUNGS: Low lung volumes with perihilar bibasilar atelectasis/effusions. ABDOMEN: No remarkable upper abdominal findings. BONES: No acute osseous changes. IMPRESSION: 1. Cardiomegaly with pulmonary edema and correlate with cardiac and fluid status. Signed by: Rex Ballesteros 10/18/2023 7:12 AM Dictation workstation: [id number] [facility] Activated partial thrombopla stin time (aPTT) in platelet poor plasma by coagulation aOrdered By: Ann Plata on 10-15-2023 aPTT Coag (PPP) [Time] 45.5 s High 25.1-36.5 [facility] Comment on above: A hematocrit value g reater than 55% may lead to inaccurate results in coagulation testing. Patients having hematocrit values >55% require a special collection tube for coagulation studies. Please contact the laboratory at [phone] for redraw instructions. Alanine aminotransferase [En zymatic activity/volume] in Serum or PlasmaOrdered By: Alondra Gonzales on 10-15-2023 ALT [Catalytic activity/Vol] 17 U/L Normal 7-52 [facility] Comment on above: Performed By: #### G LULS #### Point of Care testing , Albumin [Mass/volume] in Ser um or Plasma by Bromocresol green (BCG) dye binding methoOrdered By: Alondra Gonzales on 10-15-2023 Albumin BCG dye [Mass/Vol] 3.4 g/dL Low 3.5-5.7 [facility] Alkaline phosphatase [Enzyma tic activity/volume] in Serum or PlasmaOrdered By: Alondra Gonzales on 10-15-2023 ALP [Catalytic activity/Vol] 62 U/L Normal 34-104 [facility] Comment on above: Performed By: #### G LULS #### Point of Care testing , Aspartate aminotransferase [ Enzymatic activity/volume] in Serum or PlasmaOrdered By: Alondra Gonzales on 10-15-2023 AST [Catalytic activity/Vol] 16 U/L Normal 13-39 [facility] Comment on above: Performed By: #### G LULS #### Point of Care testing , Automated basophil %Ordered By: Alondra Gonzales on 10-15-2023 Basophils/100 WBC (Bld) 1.0 % Normal . [facility] Comment on above: Performed By: #### C BC #### [facility] [address] [place] [address] Automated basophil countOrde red By: Alondra Gonzales on 10-15-2023 Basophils (Bld) [#/Vol] 0.1 10*3/uL Normal 0.0-0.2 [facility] Comment on above: Result Comment: PERF ORMED BY: [place] [address] PATHOLOGIST DENTAL DIRECTOR WOLFGANG JOHNSON M.D. Performed By: #### C BC #### [address] Automated blood monocyte cou ntOrdered By: Alondra Gonzales on 10-15-2023 Monocytes (Bld) [#/Vol] 0.9 10*3/uL High 0.0-0.8 [facility] Comment on above: Performed By: #### C BC #### [facility] [address] [place] [address] Automated eosinophil %Ordere d By: Alondra Gonzales on 10-15-2023 Eosinophils/100 WBC (Bld) 3.7 % Normal . [facility] Comment on above: Performed By: #### C BC #### [facility] [address] [place] [address] Automated eosinophil countOr dered By: Alondra Gonzales on 10-15-2023 Eosinophils (Bld) [#/Vol] 0.4 10*3/uL Normal 0.0-0.45 [facility] Comment on above: Performed By: #### C BC #### [address] Automated monocyte %Ordered By: Alondra Gonzales on 10-15-2023 Monocytes/100 WBC (Bld) 9.3 % Normal . [facility] Comment on above: Performed By: #### C BC #### [facility] [address] [place] [address] Automated neutrophil %Ordere d By: Harriettamarakel Gonzales on 10-15-2023 Neutrophils/100 WBC (Bld) 74.1 % Normal . [facility] Comment on above: Performed By: #### C BC #### [facility] [address] [place] [address] Bilirubin.total [Mass/volume ] in Serum or PlasmaOrdered By: Alondra Gonzales on 10-15-2023 Bilirubin [Mass/Vol] 0.4 mg/dL Normal 0.3-1.0 [facility] Comment on above: Performed By: #### G LULS #### Point of Care testing , Calcium [Mass/volume] in Ser um or PlasmaOrdered By: Alondra Gonzales on 10-15-2023 Calcium [Mass/Vol] 8.1 mg/dL Low 8.6-10.3 [facility] Comment on above: Performed By: #### G LULS #### Point of Care testing , Capillary blood glucose jose urement by glucometer (mass/volume)Ordered By: Yovanny Rivera on 10-15-2023 Glucose [Mass/Vol] 277 mg/dL Normal [facility] Comment on above: Random Glucose Refer ence Range is dependent on time and content of last meal. Glucose of more than 200 mg/dL in a nonstressed, ambulatory subject supports the diagnosis of Diabetes Mellitus. Result Comment: [place] Glucose Reference Range is dependent on time and content of last meal. Glucose of more than 200 mg/dL in a nonstressed, ambulatory subject supports the diagnosis of Diabetes Mellitus. PERFORMED BY: [address] [place] [address] PATHOLOGIST DENTAL DIRECTOR WOLFGANG JOHNSON M.D. Performed By: #### C BC, ESR #### [address] Carbon dioxide, total [Moles /volume] in Serum or PlasmaOrdered By: Alondra Gonzales on 10-15-2023 CO2 [Moles/Vol] 28.2 mmol/L Normal 21.0-31.0 [facility] Comment on above: Performed By: #### G LULS #### Point of Care testing , Chloride [Moles/volume] in S teodoro or PlasmaOrdered By: Alondra Gonzales on 10-15-2023 Chloride [Moles/Vol] 104 mmol/L Normal 98-107 [facility] Comment on above: Performed By: #### G LULS #### Point of Care testing , Complete Blood Count Auto Di ffon 10-15-2023 Mean Corpuscular HGB Conc 33.4 g/dL Normal 32.5-35.6 [facility] Comment on above: Performed By: #### C BC #### [facility] [address] [place] [address] NRBC% 0.1 /100{WBC} Normal 0-0.5 [facility] Comment on above: Performed By: #### C BC #### [facility] [address] [place] [address] Comprehensive Metabolic Pane laxmi 10-15-2023 Albumin [Mass/Vol] 3.4 g/dL Low 3.5-5.7 [facility] Comment on above: Performed By: #### G LULS #### Point of Care testing , Creatinine Clr Calc Pharmacy 51.77 Normal [facility] Comment on above: Performed By: #### G LULS #### Point of Care testing , GFR/1.73 sq M.predicted MDRD (S/P/Bld) [Vol rate/Area] 43.716 mL/min/{1.73_m2} Normal [facility] Comment on above: Performed By: #### G LULS #### Point of Care testing , Creatinine [Mass/volume] in Serum or PlasmaOrdered By: Alondra Gonzales on 10-15-2023 Creatinine [Mass/Vol] 1.68 mg/dL High 0.70-1.30 [facility] Comment on above: Performed By: #### G LULS #### Point of Care testing , ECH echo transthoracicon ECH echo transthoracic [facility] Main Alpha [address] [place] [address] Echocardiogram Signed Patient: Italia Allen MR#: [id number] : 1955 Acct:[id number] Age/Sex: 68 / M ADM Date: 10/14/23 Loc: Room: [address] [place] [address] Type: ADM IN Attending Dr: Yovanny Rivera MD Ordering Provider: Alondra Gonzales MD Date of Service: 10/14/23 [facility] echo transthoracic: CHF exacerbation Copies to: MD [...] Diogenes Talley MD 10/15/23 1856 Normal [facility] Erythrocyte distribution wid th [Ratio] by Automated countOrdered By: Alondra Gonzales on 10-15-2023 Erythrocyte distribution width (RBC) [Ratio] 15.1 % High 12.0-14.8 [facility] Comment on above: Performed By: #### C BC #### [facility] [address] [place] [address] Erythrocytes [#/volume] in B lood by Automated countOrdered By: Alondra Gonzales on 10-15-2023 RBC (Bld) [#/Vol] 3.97 10*6/uL Normal 3.90-5.60 [facility] Comment on above: Performed By: #### C BC #### [facility] [address] Glucose Poct Glucometerson 0 10-15-2023 Commemt1 Glu2: Cleaned Meter Normal [facility] Physician [facility] Comment on above: Result Comment: PERF ORMED BY: [address] [place] [address] PATHOLOGIST DENTAL DIRECTOR WOLFGANG JOHNSON M.D. Performed By: #### G LULS #### Point of Care testing , Glucose [Mass/Vol] 303 mg/dL Normal [facility] Comment on above: Result Comment: [place] om Glucose Reference Range is dependent on time and content of last meal. Glucose of more than 200 mg/dL in a nonstressed, ambulatory subject supports the diagnosis of Diabetes Mellitus. Performed By: #### G LULS #### Point of Care testing , Commemt1 Glu2: Cleaned Meter Normal [facility] Comment on above: Result Comment: PERF ORMED BY: [place] [id number] PATHOLOGIST DENTAL DIRECTOR WOLFGANG JOHNSON M.D. Performed By: #### G LULS #### Point of Care testing , Glucose [Mass/Vol] 257 mg/dL Normal [facility] Comment on above: Result Comment: [place] om Glucose Reference Range is dependent on time and content of last meal. Glucose of more than 200 mg/dL in a nonstressed, ambulatory subject supports the diagnosis of Diabetes Mellitus. Performed By: #### G LULS #### Point of Care testing , Commemt1 Glu2: Cleaned Meter Normal [facility] Comment on above: Result Comment: PERF ORMED BY: [address] [place] [id number] PATHOLOGIST DENTAL DIRECTOR WOLFGANG JOHNSON M.D. Performed By: #### G LULS #### Point of Care testing , Glucose [Mass/Vol] 159 mg/dL Normal [facility] Comment on above: Result Comment: [place] om Glucose Reference Range is dependent on time and content of last meal. Glucose of more than 200 mg/dL in a nonstressed, ambulatory subject supports the diagnosis of Diabetes Mellitus. Performed By: #### G LULS #### Point of Care testing , Glucose [Mass/volume] in Ser um or PlasmaOrdered By: Alondra Gonzales on 10-15-2023 Glucose [Mass/Vol] 120 mg/dL Significant change up 70-100 [facility] Comment on above: Delta: 220 on -[id number] recommended reference rangeRandom Glucose Reference Range is dependent on time and content of last meal. Glucose of more than 200 mg/dL in a nonstressed, ambulatory subject supports the diagnosis of Diabetes Mellitus. Result Comment: [facility] Glucose Reference Range is dependent on [...] (Bld) [Volume fraction] 35.0 % Low 38.8-50.0 [facility] Comment on above: Performed By: #### C BC #### [facility] [address] [place] [address] Hemoglobin [Mass/volume] in BloodOrdered By: Alondra Gonzales on 10-15-2023 Hemoglobin (Bld) [Mass/Vol] 11.7 g/dL Low 13.0-17.0 [facility] Comment on above: Performed By: #### C BC #### [facility] [address] [place] [address] INR in Platelet poor plasma by Coagulation assayOrdered By: Alondra Gonzales on 10-15-2023 INR Coag (PPP) [Relative time] 1.1 {INR} Normal [facility] Comment on above: INR Therapeutic Rang [...] Performed By: #### P TT, PT #### [address] Leukocytes [#/volume] correc zaid for nucleated erythrocytes in Blood by Automated counOrdered By: Alondra Gonzales on 10-15-2023 WBC corrected for nucl RBC Auto (Bld) [#/Vol] 9.8 10*3/uL 4.1-10.5 [facility] Leukocytes [#/volume] in Blo od by Automated countOrdered By: Alondra Gonzales on 10-15-2023 WBC (Bld) [#/Vol] 9.8 10*3/uL Normal 4.1-10.5 [facility] Comment on above: Performed By: #### C BC #### [address] Lymphocytes [#/volume] in Bl ood by Automated countOrdered By: Alondra Gonzales on 10-15-2023 Lymphocytes (Bld) [#/Vol] 1.2 10*3/uL Normal 1.00-4.8 [facility] Comment on above: Performed By: #### C BC #### [address] Lymphocytes/100 leukocytes i n Blood by Automated countOrdered By: Alondra Gonzales on 10-15-2023 Lymphocytes/100 WBC (Bld) 11.9 % Normal . [facility] Comment on above: Performed By: #### C BC #### [address] MCH [Entitic mass] by Automa zaid countOrdered By: Alondra Gonzales on 10-15-2023 MCH (RBC) [Entitic mass] 29.4 pg Normal 27.5-35.2 [facility] Comment on above: Performed By: #### C BC #### [address] MCHC Auto (RBC) [Mass/Vol]Or dered By: Alondra Gonzales on 10-15-2023 MCHC (RBC) [Mass/Vol] 33.4 g/dL 32.5-35.6 [facility] MCV [Entitic volume] by Auto mated countOrdered By: Alondra Gonzales on 10-15-2023 MCV (RBC) [Entitic vol] 87.9 fL Normal 83.5-101 [facility] Comment on above: Performed By: #### C BC #### [facility] [address] [place] [address] Magnesium [Mass/volume] in S teodoro or PlasmaOrdered By: Alondra Gonzales on 10-15-2023 Magnesium [Mass/Vol] 1.7 mg/dL Low 1.9-2.7 [facility] Comment on above: Result Comment: PERF ORMED BY: [place] [address] PATHOLOGIST DENTAL DIRECTOR WOLFGANG JOHNSON M.D. Performed By: #### G LULS #### Point of Care testing , Neutrophils [#/volume] in Bl ood by Automated countOrdered By: Alondra Gonzales on 10-15-2023 Neutrophils (Bld) [#/Vol] 7.3 10*3/uL Normal 1.8-7.7 [facility] Comment on above: Performed By: #### C BC #### [facility] [address] [place] [address] No Panel InformationOrdered By: Yovanny Rivera on 10-15-2023 Bedside Glucose Comment Glu2: cleaned meter [facility] No Panel InformationOrdered By: Alondra Gonzales on 10-15-2023 Estimated GFR (CKD-EPI) 43.716 mL/Min [facility] Creatinine Clearance (Chem 51.77 [facility] Nucleated erythrocytes [Pres ence] in Blood by Automated countOrdered By: Alondra Gonzales on 10-15-2023 Nucleated RBC Auto Ql (Bld) 0.1 /100{WBC} 0-0.5 [facility] Partial Thromboplastin Timeo n 10-15-2023 aPTT Coag (Bld) [Time] 45.5 s High 25.1-36.5 [facility] Comment on above: Result Comment: A he matocrit value greater than 55% may lead to inaccurate results in coagulation testing. Patients having hematocrit values >55% require a special collection tube for coagulation studies. Please contact the laboratory at [phone] for redraw instructions. PERFORMED BY: [place] [address] PATHOLOGIST DENTAL DIRECTOR WOLFGANG JOHNSON M.D. Performed By: #### P TT #### [address] aPTT Coag (Bld) [Time] 41.7 s High 25.1-36.5 [facility] Comment on above: Order Comment: List the anticoagulant: HEPARIN, UNFRACTIONATED Result Comment: A he matocrit value greater than 55% may lead to inaccurate results in coagulation testing. Patients having hematocrit values >55% require a special collection tube for coagulation studies. Please contact the laboratory at [phone] for redraw instructions. PERFORMED BY: [place] [address] PATHOLOGIST DENTAL DIRECTOR WOLFGANG JOHNSON M.D. Performed By: #### P TT, PT #### [address] Phosphate [Mass/volume] in S teodoro or PlasmaOrdered By: Alondra Gonzales on 10-15-2023 Phosphate [Mass/Vol] 3.8 mg/dL Normal 2.5-4.5 [facility] Comment on above: Performed By: #### G LULS #### Point of Care testing , Platelet mean volume [Entiti c volume] in Blood by Automated countOrdered By: Alondra Gonzales on 10-15-2023 Platelet mean volume (Bld) [Entitic vol] 7.7 fL Normal 6.6-10.1 [facility] Comment on above: Performed By: #### C BC #### [place] [address] [place] Platelets [#/volume] in Bloo d by Automated countOrdered By: Alondra Gonzales on 10-15-2023 Platelets (Bld) [#/Vol] 285 10*3/uL Normal 150-450 [facility] Comment on above: Performed By: #### C BC #### [facility] [address] [place] [address] [place] Potassium [Moles/volume] in Serum or PlasmaOrdered By: Alondra Gonzales on 10-15-2023 Potassium [Moles/Vol] 4.1 mmol/L Normal 3.5-5.1 [facility] Comment on above: Performed By: #### G LULS #### Point of Care testing , Protein [Mass/volume] in Ser um or PlasmaOrdered By: Alondra Gonzales on 10-15-2023 Protein [Mass/Vol] 5.6 g/dL Low 6.4-8.9 [facility] Comment on above: Performed By: #### G LULS #### Point of Care testing , Prothrombin time (PT)Ordered By: Alondra Gonzales on 10-15-2023 PT Coag (PPP) [Time] 12.6 s Normal 9.0-12.9 [facility] Comment on above: A hematocrit value g reater than 55% may lead to inaccurate results in coagulation testing. Patients having hematocrit values >55% require a special collection tube for coagulation studies. Please contact the laboratory at [phone] for redraw instructions. Order Comment: List the anticoagulant: HEPARIN, UNFRACTIONATED Result Comment: A he matocrit value greater than 55% may lead to inaccurate results in coagulation testing. Patients having hematocrit values >55% require a special collection tube for coagulation studies. Please contact the laboratory at [phone] for redraw instructions. Performed By: #### P TT, PT #### [facility] [address] [place] [id number] [place] Serum globulin measurement b y calculation (mass/volume)Ordered By: Alondra Gonzales on 10-15-2023 Globulin (S) [Mass/Vol] 2.2 g/dL Normal [facility] Comment on above: Performed By: #### G LULS #### Point of Care testing , Serum or plasma albumin/glob ulin mass ratioOrdered By: Alondra Gonzales on 10-15-2023 Albumin/Globulin [Mass ratio] 1.5 {ratio} Normal [facility] Comment on above: Performed By: #### G LULS #### Point of Care testing , Serum or plasma anion gap de terminationOrdered By: Alondra Gonzales on 10-15-2023 Anion gap [Moles/Vol] 10.9 mmol/L Normal 6.0-15.0 [facility] Comment on above: Performed By: #### G LULS #### Point of Care testing , Sodium [Moles/volume] in Ser um or PlasmaOrdered By: Alondra Gonzales on 10-15-2023 Sodium [Moles/Vol] 139 mmol/L Normal 136-145 [facility] Comment on above: Performed By: #### G LULS #### Point of Care testing , US renal BIon 10-15-[address] [facility] [place] [address] Ultrasound Report Signed Patient: Italia Allen MR#: [id number] : 1955 Acct:[id number] Age/Sex: 68 / M ADM Date: 10/14/23 Loc: Room: [address] [place] [address] Type: ADM IN Attending Dr: Yovanny Rivera [...] Baird Jr., D.O.10/15/2023 9:59 AM Dictation Location: [place] [address] Tech: Rebecca Hein Transcribed By: PWS 10/15/2359 Dictated By: Jude Baird Jr, DO 10/15/23 0954 Signed By: 10/15/23 0959 Normal [facility] Urea nitrogen [Mass/volume] in Serum or PlasmaOrdered By: Alondra Gonzales on 10-15-2023 Urea nitrogen [Mass/Vol] 33 mg/dL High 09-12 [facility] Comment on above: Performed By: #### G RYAN #### Point of Care testing , C reactive protein [Mass/vol ume] in Serum or PlasmaOrdered By: Alondra Gonzales on 10-14-2023 CRP [Mass/Vol] 2.7 mg/dL High 0.0-0.5 [facility] C-Reactive Proteinon 024 C-Reactive Protein 2.7 mg/dL High 0.0-0.5 [facility] Comment on above: Result Comment: PERF ORMED BY: [place] [address] PATHOLOGIST DENTAL DIRECTOR WOLFGANG JOHNSON M.D. Performed By: #### C BC, ESR #### [address] Complete Blood Count Auto Di ffon 10-14-2023 Basophils (Bld) [#/Vol] 0.1 10*3/uL Normal 0.0-0.2 [facility] Comment on above: Performed By: #### C BC, ESR #### [place] [address] [place] Basophils/100 WBC (Bld) 1.3 % Normal . [facility] Comment on above: Performed By: #### C BC, ESR #### [place] [address] [place] Eosinophils (Bld) [#/Vol] 0.2 10*3/uL Normal 0.0-0.45 [facility] Comment on above: Performed By: #### C BC, ESR #### [place] [address] [place] Eosinophils/100 WBC (Bld) 3.2 % Normal . [facility] Comment on above: Performed By: #### C BC, ESR #### [address] Erythrocyte distribution width (RBC) [Ratio] 15.4 % High 12.0-14.8 [facility] Comment on above: Performed By: #### C BC, ESR #### [address] Hematocrit (Bld) [Volume fraction] 35.1 % Low 38.8-50.0 [facility] Comment on above: Performed By: #### C BC, ESR #### [address] Hemoglobin (Bld) [Mass/Vol] 11.6 g/dL Low 13.0-17.0 [facility] Comment on above: Performed By: #### C BC, ESR #### [address] Lymphocytes (Bld) [#/Vol] 0.9 10*3/uL Low 1.00-4.8 [facility] Comment on above: Performed By: #### C BC, ESR #### [address] Lymphocytes/100 WBC (Bld) 12.1 % Normal . [facility] Comment on above: Performed By: #### C BC, ESR #### [address] MCH (RBC) [Entitic mass] 29.3 pg Normal 27.5-35.2 [facility] Comment on above: Performed By: #### C BC, ESR #### [address] MCV (RBC) [Entitic vol] 88.7 fL Normal 83.5-101 [facility] Comment on above: Performed By: #### C BC, ESR #### [address] Mean Corpuscular HGB Conc 33.0 g/dL Normal 32.5-35.6 [facility] Comment on above: Performed By: #### C BC, ESR #### [facility] [address] [place] [address] [place] Monocytes (Bld) [#/Vol] 0.6 10*3/uL Normal 0.0-0.8 [facility] Comment on above: Performed By: #### C BC, ESR #### [facility] [address] [place] [address] [place] Monocytes/100 WBC (Bld) 7.5 % Normal . [facility] Comment on above: Performed By: #### C BC, ESR #### [facility] [address] [place] [address] [place] Neutrophils (Bld) [#/Vol] 5.7 10*3/uL Normal 1.8-7.7 [facility] Comment on above: Performed By: #### C BC, ESR #### [facility] [address] [place] [address] [place] Neutrophils/100 WBC (Bld) 75.9 % Normal . [facility] Comment on above: Performed By: #### C BC, ESR #### [facility] [address] [place] [address] [place] NRBC% 0.1 /100{WBC} Normal 0-0.5 [facility] Comment on above: Performed By: #### C BC, ESR #### [facility] [address] [place] [address] [place] Platelet mean volume (Bld) [Entitic vol] 7.8 fL Normal 6.6-10.1 [facility] Comment on above: Performed By: #### C BC, ESR #### [facility] [address] [place] [address] [place] Platelets (Bld) [#/Vol] 290 10*3/uL Normal 150-450 [facility] Comment on above: Performed By: #### C BC, ESR #### [facility] [address] [place] [address] [place] RBC (Bld) [#/Vol] 3.95 10*6/uL Normal 3.90-5.60 [facility] Comment on above: Performed By: #### C BC, ESR #### [address] WBC (Bld) [#/Vol] 7.5 10*3/uL Normal 4.1-10.5 [facility] Comment on above: Performed By: #### C BC, ESR #### [address] Basophils (Bld) [#/Vol] 0.1 10*3/uL Normal 0.0-0.2 [facility] Comment on above: Result Comment: PERF ORMED BY: [place] [address] PATHOLOGIST DENTAL DIRECTOR WOLFGANG JOHNSON M.D. Performed By: #### C BC, ESR #### [address] Basophils/100 WBC (Bld) 1.3 % Normal . [facility] Comment on above: Performed By: #### C BC, ESR #### [address] Eosinophils (Bld) [#/Vol] 0.3 10*3/uL Normal 0.0-0.45 [facility] Comment on above: Performed By: #### C BC, ESR #### [address] Eosinophils/100 WBC (Bld) 3.4 % Normal . [facility] Comment on above: Performed By: #### C BC, ESR #### [address] Erythrocyte distribution width (RBC) [Ratio] 15.3 % High 12.0-14.8 [facility] Comment on above: Performed By: #### C BC, ESR #### [address] Hematocrit (Bld) [Volume fraction] 35.3 % Low 38.8-50.0 [facility] Comment on above: Performed By: #### C BC, ESR #### [address] [place] [address] [place] Hemoglobin (Bld) [Mass/Vol] 11.8 g/dL Low 13.0-17.0 [facility] Comment on above: Performed By: #### C BC, ESR #### [address] Lymphocytes (Bld) [#/Vol] 0.9 10*3/uL Low 1.00-4.8 [facility] Comment on above: Performed By: #### C BC, ESR #### [address] Lymphocytes/100 WBC (Bld) 10.9 % Normal . [facility] Comment on above: Performed By: #### C BC, ESR #### [address] MCH (RBC) [Entitic mass] 29.5 pg Normal 27.5-35.2 [facility] Comment on above: Performed By: #### C BC, ESR #### [address] MCV (RBC) [Entitic vol] 87.9 fL Normal 83.5-101 [facility] Comment on above: Performed By: #### C BC, ESR #### [address] Mean Corpuscular HGB Conc 33.5 g/dL Normal 32.5-35.6 [facility] Comment on above: Performed By: #### C BC, ESR #### [place] [address] [place] Monocytes (Bld) [#/Vol] 0.6 10*3/uL Normal 0.0-0.8 [facility] Comment on above: Performed By: #### C BC, ESR #### [place] [address] [place] Monocytes/100 WBC (Bld) 7.5 % Normal . [facility] Comment on above: Performed By: #### C BC, ESR #### [address] [place] [address] [place] Neutrophils (Bld) [#/Vol] 6.0 10*3/uL Normal 1.8-7.7 [facility] Comment on above: Performed By: #### C BC, ESR #### [address] Neutrophils/100 WBC (Bld) 76.9 % Normal . [facility] Comment on above: Performed By: #### C BC, ESR #### [address] NRBC% 0.1 /100{WBC} Normal 0-0.5 [facility] Comment on above: Performed By: #### C BC, ESR #### [address] Platelet mean volume (Bld) [Entitic vol] 7.8 fL Normal 6.6-10.1 [facility] Comment on above: Performed By: #### C BC, ESR #### [address] Platelets (Bld) [#/Vol] 288 10*3/uL Normal 150-450 [facility] Comment on above: Performed By: #### C BC, ESR #### [address] RBC (Bld) [#/Vol] 4.01 10*6/uL Normal 3.90-5.60 [facility] Comment on above: Performed By: #### C BC, ESR #### [address] WBC (Bld) [#/Vol] 7.8 10*3/uL Normal 4.1-10.5 [facility] Comment on above: Performed By: #### C BC, ESR #### [address] Comprehensive Metabolic Pane laxmi 10-14-2023 Albumin [Mass/Vol] 3.3 g/dL Low 3.5-5.7 [facility] Comment on above: Performed By: #### C BC, ESR #### [address] Albumin/Globulin [Mass ratio] 1.4 {ratio} Normal [facility] Comment on above: Performed By: #### C BC, ESR #### [address] ALP [Catalytic activity/Vol] 59 U/L Normal 34-104 [facility] Comment on above: Performed By: #### C BC, ESR #### [address] ALT [Catalytic activity/Vol] 17 U/L Normal 7-52 [facility] Comment on above: Performed By: #### C BC, ESR #### [address] Anion gap [Moles/Vol] 10.6 mmol/L Normal 6.0-15.0 [facility] Comment on above: Performed By: #### C BC, ESR #### [address] AST [Catalytic activity/Vol] 16 U/L Normal 13-39 [facility] Comment on above: Performed By: #### C BC, ESR #### [address] Bilirubin [Mass/Vol] 0.5 mg/dL Normal 0.3-1.0 [facility] Comment on above: Performed By: #### C BC, ESR #### [address] Calcium [Mass/Vol] 8.2 mg/dL Low 8.6-10.3 [facility] Comment on above: Performed By: #### C BC, ESR #### [place] [address] [place] Chloride [Moles/Vol] 106 mmol/L Normal 98-107 [facility] Comment on above: Performed By: #### C BC, ESR #### [address] CO2 [Moles/Vol] 28.5 mmol/L Normal 21.0-31.0 [facility] Comment on above: Performed By: #### C BC, ESR #### [facility] [address] Creatinine [Mass/Vol] 1.61 mg/dL High 0.70-1.30 [facility] Comment on above: Performed By: #### C BC, ESR #### [place] [address] [place] Creatinine Clr Calc Pharmacy 54.02 Normal [facility] Comment on above: Performed By: #### C BC, ESR #### [facility] [address] [place] [address] [place] GFR/1.73 sq M.predicted MDRD (S/P/Bld) [Vol rate/Area] 46.006 mL/min/{1.73_m2} Normal [facility] Comment on above: Performed By: #### C BC, ESR #### [address] Globulin (S) [Mass/Vol] 2.3 g/dL Normal [facility] Comment on above: Performed By: #### C BC, ESR #### [address] Glucose [Mass/Vol] 220 mg/dL High 70-100 [facility] Comment on above: Result Comment: [place] Glucose Reference Range is dependent on time and content of last meal. Glucose of more than 200 mg/dL in a nonstressed, ambulatory subject supports the diagnosis of Diabetes Mellitus. ADA recommended reference range Performed By: #### C BC, ESR #### [address] Potassium [Moles/Vol] 4.1 mmol/L Normal 3.5-5.1 [facility] Comment on above: Performed By: #### C BC, ESR #### [address] Protein [Mass/Vol] 5.6 g/dL Low 6.4-8.9 [facility] Comment on above: Performed By: #### C BC, ESR #### [facility] [address] Sodium [Moles/Vol] 141 mmol/L Normal 136-145 [facility] Comment on above: Performed By: #### C BC, ESR #### [facility] [address] Urea nitrogen [Mass/Vol] 31 mg/dL High 7-25 [facility] Comment on above: Performed By: #### C BC, ESR #### [facility] [address] ECG 12 lead ECGon 10-14-2023 ECG [address] [facility] [address] [place] [address] Electrocardiograph Report Signed Patient: Italia Allen MR#: [id number] : 1955 Acct:[id number] Age/Sex: 68 / M ADM Date: 10/14/23 Loc: Room: [address] [place] [address] Type: DIS IN Attending Dr: Yovanny Rivera [...] previous ECGs available Confirmed by Diogenes Talley ([id number]) on 10/16/2023 10:19:42 PM Referred By: Electronically Signed By: Diogenes Talley Transcribed By: MUS Signed By Diogenes Talley MD 10/16/238 Normal [facility] Erythrocyte Sedimentation Ra clarice 10-14-2023 ESR (Bld) [Velocity] 22 mm/h High 0-19 [facility] Comment on above: Result Comment: PERF ORMED BY: [place] [address] PATHOLOGIST DENTAL DIRECTOR WOLFGANG JOHNSON M.D. Performed By: #### C BC, ESR #### [facility] [address] Erythrocyte sedimentation ra te by Photometric methodOrdered By: Alondra Gonzales on 10-14-2023 ESR Photometric method (Bld) [Velocity] 22 mm/hr High 0-19 [facility] Glucose Poct Glucometerson 0 10-14-2023 Glucose [Mass/Vol] 306 mg/dL Normal [facility] Comment on above: Result Comment: [facility] Glucose Reference Range is dependent on time and content of last meal. Glucose of more than 200 mg/dL in a nonstressed, ambulatory subject supports the diagnosis of Diabetes Mellitus. PERFORMED BY: [place] [address] PATHOLOGIST DENTAL DIRECTOR WOLFGANG JOHNSON M.D. Performed By: #### G LULS #### Point of Care testing , Glucose [Mass/Vol] 221 mg/dL Normal [facility] Comment on above: Result Comment: [facility] Glucose Reference Range is dependent on time and content of last meal. Glucose of more than 200 mg/dL in a nonstressed, ambulatory subject supports the diagnosis of Diabetes Mellitus. PERFORMED BY: [place] [address] PATHOLOGIST DENTAL DIRECTOR WOLFGANG JOHNSON M.D. Performed By: #### G LULS #### Point of Care testing , Magnesiumon 10-14-2023 Magnesium [Mass/Vol] 1.7 mg/dL Low 1.9-2.7 [facility] Comment on above: Performed By: #### C BC, ESR #### [facility] [address] [place] [address] [place] Partial Thromboplastin Timeo n 10-14-2023 aPTT Coag (Bld) [Time] 35.7 s Normal 25.1-36.5 Th e [facility] Comment on above: Result Comment: A he matocrit value greater than 55% may lead to inaccurate results in coagulation testing. Patients having hematocrit values >55% require a special collection tube for coagulation studies. Please contact the laboratory at [phone] for redraw instructions. PERFORMED BY: [place] [id number] PATHOLOGIST DENTAL DIRECTOR WOLFGANG JOHNSON M.D. Performed By: #### P TT #### [place] [id number] [place] aPTT Coag (Bld) [Time] 31.1 s Normal 25.1-36.5 Th e [facility] Comment on above: Result Comment: A he matocrit value greater than 55% may lead to inaccurate results in coagulation testing. Patients having hematocrit values >55% require a special collection tube for coagulation studies. Please contact the laboratory at [phone] for redraw instructions. PERFORMED BY: [place] [address] PATHOLOGIST DENTAL DIRECTOR WOLFGANG JOHNSON M.D. Performed By: #### C BC, ESR #### [place] [id number] [place] Prothrombin Time INRon 10-13 INR Coag (PPP) [Relative time] 1.1 {INR} Normal [facility] Comment on above: Result [...] Performed By: #### C BC, ESR #### [place] [id number] [place] PT Coag (PPP) [Time] 13.0 s High 9.0-12.9 [facility] Comment on above: Result Comment: A he matocrit value greater than 55% may lead to inaccurate results in coagulation testing. Patients having hematocrit values >55% require a special collection tube for coagulation studies. Please contact the laboratory at [phone] for redraw instructions. Performed By: #### C BC, ESR #### [place] [id number] [place] Troponin I High Sensitivityo n 10-14-2023 Troponin I High Sensitivity 1682.8 pg/mL Off scale high 0.0-20.0 [facility] Comment on above: Result Comment: Crit ical Result : Called to and read back by: JAREK REESE at: 10/14/2023 12:42:52 by:ADRIENNE PERFORMED BY: [place] [address] PATHOLOGIST DENTAL DIRECTOR WOLFGANG JOHNSON M.D. Performed By: #### C BC, ESR #### [address] Troponin I.cardiac [Mass/vol ume] in Serum or Plasma by Detection limit <= 0.01 ng/Ordered By: Alondra Gonzales on 10-14-2023 Troponin I.cardiac DL <= 0.01 ng/mL [Mass/Vol] 1682.8 pg/mL High 0.0-20.0 [facility] Comment on above: Critical Result : Ca lled to and read back by: JAREK REESE at: 10/14/2023 12:42:52 by:ADRIENNE XR chest 1V portableon 10-[address] [facility] Main Alpha [address] [place] [address] XRay Report Signed Patient: Italia Allen MR#: [id number] : 1955 Acct:[id number] Age/Sex: 68 / M ADM Date: 10/14/23 Loc: Room: [address] [place] [address] Type: ADM IN Attending Dr: Alondra Gonzales [...] Andrés Hardwick M.D.10/14/2023 12:13 PM Dictation Location: [place] [address] Transcribed By: [facility] 10/14/23 1213 Dictated By: Andrés Hardwick II, MD 10/14/23 1212 Signed By: 10/14/23 1213 Normal [facility] Vital Signs Date Time Vital Sign Value Performing Clinician Facility 11-29-2023 13:55-0400 Body height 177.8 cm Fatemeh Knox DPM Work Phone: [facility] 11-29-2023 13:55-0400 Body mass index (BMI) [Ratio] 35.87 kg/m2 Fatemeh Jared DPM Work Phone: [facility] 11-29-2023 13:55-0400 Body weight 113.4 kg Fatemeh Jared DPM Work Phone: [facility] 11-22-2023 15:42-0400 Blood Pressure Location Marine [facility] 11-22-2023 15:42-0400 Diastolic blood pressure 60 mm[Hg] [facility] 11-22-2023 15:42-0400 Heart rate 76 /min [facility] 11-22-2023 15:42-0400 Respiratory rate 16 /min [facility] 11-22-2023 15:42-0400 Systolic blood pressure 110 mm[Hg] [facility] 10-16-2023 15:57-0400 Body temperature 37.0 degrees Celsius [facility] Comment on above: Result Comment: NOTE: Patient Results ar e Not Corrected for Temperature Performed By: #### 1 [id number] #### ERICA Tam ([id number]) [facility] ([facility]) [address] [place] [id number] 10-16-2023 15:57-0400 SaO2% (BldA) [Mass fraction] 95 % [facility] Comment on above: Performed By: #### 34660-2 #### ERICA Tam ([id number]) [facility] ([facility]) [address] [place] [address] 10-15-2023 23:16-0400 Body temperature 98 [degF] [facility] 10-15-2023 23:16-0400 Diastolic blood pressure 73 mm[Hg] [facility] 10-15-2023 23:16-0400 Heart rate 104 /min [facility] 10-15-2023 23:16-0400 Respiratory rate 18 /min [facility] 10-15-2023 23:16-0400 SaO2% (BldA) [Mass fraction] 92 % [facility] 10-15-2023 23:16-0400 Systolic blood pressure 153 mm[Hg] [facility] 10-15-2023 20:00-0400 Inhaled oxygen flow rate 2 L/min [facility] 10-15-2023 14:51-0400 Body height 177.8 cm [facility] 10-15-2023 06:00-0400 Body weight 112.2 kg [facility] Encounters Encounter Date Encounter Type Care Provider Facility Start: 12-04-2023 End: 12-04-2023 ambulatory Marine X Cherrie Facility:[facility] Start: 12-04-2023 End: 12-04-2023 Patient encounter procedure Marine X Orzech [facility] Start: 12-03-2023 ambulatory Marine Grier Facility: [facility] Start: 11-29-2023 End: 11-29-2023 Bamboo flowsheet Fatemeh Coleman DPM Work Phone: [facility] Start: 11-29-2023 End: 11-29-2023 Bamboo flowsheet Fatemeh Coleman DPM Work Phone: [facility] Start: 11-29-2023 End: 11-29-2023 ambulatory FATEMEH COLEMAN Not Available Start: 11-29-2023 End: 11-29-2023 Office outpatient new 30 minutes Fatemeh Coleman DPM Work Phone: [facility] Comment on above: Dermatophytosis of n ail (Primary Dx); Dystrophic nail; Angiopathy, diabetic (CMS/HCC); Diabetic polyneuropathy associated with type 2 diabetes mellitus ([facility]/HCC) Start: 11-22-2023 End: 11-22-2023 ambulatory Marine Grier Facility:[facility] Start: 11-22-2023 End: 11-22-2023 Patient encounter procedure Marine Ryderelli [facility] Start: 11-13-2023 End: 11-13-2023 ambulatory [facility] Start: 11-02-2023 End: 11-02-2023 ambulatory [facility] Start: 10-15-2023 End: 10-24-2023 Encounter for preprocedural cardiovascular examination [facility] Start: 10-15-2023 End: 10-24-2023 Evaluation and management of inpatient [facility] Start: 10-14-2023 End: 10-15-2023 Evaluation and management of inpatient [facility] Work Phone: Procedures Date Procedure Procedure Detail Performing Clinician Start: 10-15-2023 Start: 10-15-2023 [facility]io Start: 10-15-2023 Ultrasonography of b ilateral kidneys Start: 10-14-2023 Plain chest X-ray Cholecystectomy Marine Ryderdesi sandrita Tonsillectomy Marine Efrainsobia Plan of Treatment Date Care Activity Detail Author Start: 03-13-2024 End: 03-13-2024 Patient encounter procedure 03/13/2024 2:15 PM EST Procedure Visit [facility] [address] [place] [id number] Fatemeh Coleman DPM [address] [place], [place] [id number] [facility] Start: 10-21-2023 Influenza vaccination Influenza Vaccine (#1) [facility] Start: 10-15-2023 [facility] Start: 10-15-2023 [facility] Start: 10-14-2023 [facility] Start: 10-14-2023 Hospital admission [facility] Start: 10-14-2023 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 [facility] Start: 08-02-2019 Pneumococcal Vaccine: 65+ Years (2 of 2 - PCV) Pneumococcal Vaccine: 65+ Years (2 of 2 - PCV) [facility] Start: 1955 Screening for malignant neoplasm of colon [facility] Patient Education Heart Failure, Adult (DC) [facility] Work Phone: Immunizations Immunization Date Immunization Notes Care Provider Fa pettyty 03-05-2021 Influenza, injectabl e, Madin Casi Canine Kidney, preservative free, quadrivalent Fatemeh Coleman DPM Work Phone: [facility] 03-05-2021 influenza virus vacc ine, unspecified formulation Fatemeh Coleman DPM Work Phone: [facility] 12-21-2019 influenza, injectabl e, quadrivalent, contains preservative Fatemeh Coleman DPM Work Phone: [facility] 11-30-2017 Influenza, injectabl e, Madin Keene Canine Kidney, preservative free, quadrivalent Fatemeh Coleman DPM Work Phone: [facility] 11-30-2017 pneumococcal polysaccharide vaccine, 23 valent Fatemeh Coleman DPM Work Phone: [facility] Healthcare Payers Date Payer Category Payer Self-pay 2020 Medicare MEDICARE MEDICAR E PART B [id number] 2020-[place] [address] Medicare [id number] 2020 Medicare [id number] 1955 Unknown [id number] 4 1955 Unknown [id number] 5 1955 Unknown [id number] 5 1955 Unknown [id number] 9 1955 Unknown [id number] 1955 Unknown [id number] 1955 Unknown [id number] [id number] Unknown [employer] KIMBALL/LINK [id number] Unknown [id number] Social History Date Type Detail Facility Start: 10-14-2023 End: 11-22-2023 Tobacco smoking status NHIS Never smoked tobacco (finding) [facility] Start: 1955 Sex Assigned At Male F [facility] Tobacco smoking status Ex-smoker (finding ) [facility] Tobacco smoking status Never [facility] Start: 11-29-2023 Sex Assigned At Male F [facility] Tobacco smoking stat NHIS Tobacco smoking consumption [...] 11-22-2023 Functional Status N/A [facility] 10-15-2023 Functional status Patient at Baseline [facility] Work Phone: Mental Status Date Assessment Result Facility 10-15-2023 Cognitive function Cognitive Sta tus Patient at Baseline [facility] Work Phone: Clinical Notes 10-14-2023 to 11-29-2023 Fatemeh Coleman, RADHAM - 11/29/2023 1:45 PM EDTPatient Instructions Note Date & Type Note Facility 11-29-2023 History of Presen t illness Narrative Images from the original note were not included. Subjective Patient ID: Italia Allen is a 68 y.o. 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, unable [...] Fatemeh Coleman DPM documented in this encounter [place] [address]-10-2024 Instructions Fatemeh Coleman DPM - 11/29/2023 1:45 PM EDT As noted documented in this encounter [facility] 10-15-2023 Discharge summary Note Date/Time October 15, 2023 6:18pm [place] [address] Discharge Summary Signed Patient: Italia Allen MR#: [id number] : 1955 Acct:[id number] Age/Sex: 68 / M Adm Date: 4 Loc: Room: [address] [place] [address]: Yovanny Rivera MD Copies to: [...] II, HTN, obesity, HFpEF who presentsto the [place] emergency department with complaints of deep pain [...] recommended for transfer to tertiary care facility ([facility] under Dr. Galdamez) for likely [...] % (Auto) 74.1, Lymph % (Auto) 11.9, [place] % (Auto) 9.3, Eos % (Auto) 3.7, Baso % (Auto) 1.0, Nucleat RBC Rel Count 0.1, Neut # (Auto) 7.3, Lymph # (Auto) 1.2, [place] # (Auto) 0.9 H, Eos # (Auto) [...] 2.2, Albumin/Globulin Ratio 1.5 Documented By: Yovanny Rivear MD 4 1757 Signed By: <Electronically signed by Yovanny Rivera MD> 10/15/23 1828 [facility] Work Phone: 1(244) 775-503708-26-2024 Progress note Author Ann Plata [facility] October 15, 2023 12:58pm Note Date/Time October 15, 2023 12 :57pm [facility] [address] [place] [address] Cardiology Progress Note Signed Patient: Italia Allen MR#: [id number] : 1955 Acct:[id number] Age/Sex: 68 / M Adm Date: 4 Loc: Room: [address] [place] [address] Type: ADM IN Attending Dr: Yovanny Rivera [...] MPV Neut % (Auto) Lymph % (Auto) [place] % (Auto) Eos % (Auto) Baso % (Auto) Nucleat RBC Rel Count Neut # (Auto) Lymph # (Auto) [place] # (Auto) Eos # (Auto) Baso # [...] % (Auto) 74.1 Lymph % (Auto) 11.9 [place] % (Auto) 9.3 Eos % (Auto) 3.7 Baso % (Auto) 1.0 Nucleat RBC Rel Count 0.1 Neut # (Auto) 7.3 Lymph # (Auto) 1.2 [place] # (Auto) 0.9 H Eos # (Auto) [...] MPV Neut % (Auto) Lymph % (Auto) [place] % (Auto) Eos % (Auto) Baso % (Auto) Nucleat RBC Rel Count Neut # (Auto) Lymph # (Auto) [place] # (Auto) Eos # (Auto) Baso # [...] Signed By: <Electronically signed by MD Ann Plaat> 10/15/23 1258 [facility] Work Phone: 1(961) 740-390408-26-2024 [facility] History and physical note Author Alondra Gonzales [facility] October 14, 2023 3:57pm Note Date/Time October 14, 2023 9: 54am [facility] [address] [place] [address] Hospitalist H&P Signed Patient: Italia Allen MR#: [id number] : 1955 Acct:[id number] Age/Sex: 68 / M Adm Date: 4 Loc: Room: [address] [place] [address] Type: ADM IN Attending Dr: Alondra Gonzales [...] He was brought as a transfer from [place] ED. As per ED note at [place],patient presented to the ED at [place] with chest pain, described as deep pain [...] or diaphoresis. He showed activity ED at [place] with oxygen saturation of 70% he was noticed to have bilateral lower extremity edema and he was started on BiPAP as well as was given IV Lopressor 1 dose and was started on heparin drip. His troponin wasuptrending EKG showed sinus tachycardia with no ischemic changes as per [place] records(report not actual tracing). Labs: CBC showed [...] my encounter with the pt [facility] Medical History Biceps muscle tear Cholecystectomy planned [...] 4 Documented By: Alondra Gonzales MD 10/14/23 0908 Signed By: <Electronically signed by Alondra Gonzales MD> 10/14/23 2886 [facility] Work Phone: 1(751) 606-666808-25-2024 Consult note Author Ann Plata [facility] October 14, 2023 2:55pm Note Date/Time October 14, 2023 2: 51pm [facility] [address] [place] [address] Cardiology Consult Note Signed Patient: Italia Allen MR#: [id number] : 1955 Acct:[id number] Age/Sex: 68 / M Adm Date: 4 Loc: Room: 7O9250-9 Type: ADM IN Attending Dr: Alondra Gonzales MD Copies to: NON STAFF MD Ann Gordillo MD~ Cardiology HPI History of Present Illness Consult Date: 10/14/23 Reason for Consult: Cardiac consultation requested for evaluation for shortness of breath chest heaviness and acute coronary syndrome HPI: Mr. Allen is a 68 year old male who denies prior cardiac history presented to [place] emergency room complaining of increasing shortness of breath and chest heaviness. He was evaluated and felt to have evidence of acute coronary syndrome and heart failure and arrangement was made to transfer the patient to [facility] for further care. The patient reports historyof longstanding diabetes mellitus and hypertension. He report over the last fewweeks he has been describing decreased exercise tolerance and dyspnea on exertion. He has seen his family physician on several occasion with adjustment of his medication but without improvement. Prior to presentation to the emergency room at [place] he developed worsening shortness of breath and [...] is negative other mentioned above [facility] Medical History Biceps muscle tear Cholecystectomy planned [...] (Auto) 0.9 L 0.9 L (1.00-4.8) x10E3/uL [place] # (Auto) 0.6 0.6 (0.0-0.8) x10E3/uL Eos [...] <Electronically signed by MD Ann Plata> 10/14/23 0665 [facility] Work Phone: Evaluation + Plan note Future Appointments Appointment Date:11/29/2023 03:00:00 PM Scheduled Provider: Location:[facility] Appointment Type:URO Nurse Visit Appointment Date:12/04/2023 03:00:00 PM Scheduled Provider:RADHA Grier APRN, [place] [facility] Location:[facility] Appointment Type:URO Office Visit [facility] Evaluation note* Diagnosis Onset Date Resolution Status ACS (acute coronary syndrome) acute Acute hypoxic respiratory failure acute Systolic CHF, acute on chronic acute [facility] Work Phone: Evaluation note* Diagnosis Dermatophytosis of nail- Primary Dystrophic nail Other specified disease of nail Angiopathy, diabetic (CMS/HCC) Type II or unspecified type diabetes mellitus with peripheral circulatory disorders, not stated as uncontrolled Diabetic polyneuropathy associated with type 2 diabetes mellitus (CMS/HCC) [facility] Narrative No data available for this section [facility] Hospital Discharge instructions Additional Instructions Full code [facility] Work Phone: Hospital Discharge instructions No data available for this section [facility] Progress note No data available for this section [facility] Chief Complaint and Reason for [...] and content) DATE CREATED AUTHOR 10/19/2023 [facility] DATE CREATED AUTHOR AUTHOR'S ORGANIZ ATION 11/10/2023 [facility] DATE CREATED AUTHOR AUTHOR'S ORGANIZ ATION 11/15/2023 [facility] DATE CREATED AUTHOR AUTHOR'S ORGANIZ ATION 11/16/2023 [facility] DATE CREATED AUTHOR AUTHOR'S ORGANIZ ATION 12/01/2023 [facility] EPIC DATE CREATED AUTHOR AUTHOR'S ORGANIZ ATION 12/07/2023 [facility] Reason for Visit (unrecogniz ed section and content) Reason Comments 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 Haven't been trimmed since last January. PCP: [facility] 10/2023, A1C: ?, BS: n/a FOR [...] THE PRIMARY CLINICAL RECORDS. [facility]. provides no warranty or guarantee of the accuracy or completeness of information in this document.
[2023-12-19 06:46] LABS: Glucometer 117 mg/dL (74-106)
[2023-12-19] MEDS: DEXTROSE 50 %-WATER 25 GM/50 ML SYRINGE IV ×2 (06:47→07:23)
[2023-12-19 06:50] LABS: Basophils Absolute Auto 0.1 10^3/uL (0.0-0.1); Basophils Percent Auto 0.5 % (0.2-2.0); Eosinophils Percent Auto 0.3 % (0.9-7.0); Hematocrit 30.1 % (42.0-54.0); Hemoglobin 9.4 g/dL (14.0-18.0); Immature Granulocytes Abs Auto 0.07 10^3/uL (0.00-0.03); Immature Granulocytes Pct Auto 0.6 % (0.0-0.5); Lymphocytes Absolute Auto 0.5 10^3/uL (1.2-3.8); Lymphocytes Percent Auto 4.5 % (20.5-60.0); Mean Corpuscular HGB Conc 31.2 g/dL (29.9-35.2); Mean Corpuscular Hemoglobin 28.7 pg (25.9-34.0); Mean Corpuscular Volume 91.8 fL (80.0-94.0); Mean Platelet Volume 9.8 fL (9.5-13.5); Monocytes Absolute Auto 0.5 10^3/uL (0.3-0.8); Monocytes Percent Auto 4.1 % (1.7-12.0); Neutrophils Absolute Auto 10.1 10^3/uL (1.4-6.5); Platelet Count 395 10^3/uL (150-450); Red Blood Count 3.28 10^6/uL (4.70-6.10); Red Cell Distribution Width 15.1 % (11.0-15.0); White Blood Count 11.2 10^3/uL (4.0-11.0)
--- NOTE | 2023-12-19 07:00 | CT_ITS ---
The [address] [address] Patient Name: ITALIA ALLEN MRN: [id number] date: 1955 Sex: M Assigned Patient Location: ER Current Patient Location: ER Accession/Order Number: [id number] Exam Date: 12/19/2023 07:35 Report Date: 12/19/2023 08:23 At the request of: DENIZ GRIGSBY Procedure: CT head/brain wo con EXAMINATION: CT head/brain wo con HISTORY: Loss of conscious , hypoglycemia, fall COMPARISON: No relevant comparison available. TECHNIQUE: Axial CT images were obtained without IV contrast. Dose reduction techniques were achieved by using automated exposure control and/or adjustment of mA and/or kV according to patient size and/or use of iterative reconstruction technique. FINDINGS: BRAIN: Decreased attenuation within the deep white matter of the left frontal lobe adjacent the anterior horn of the lateral ventricle; suspect remote infarction. Generalized mild atrophy throughout the brain. No hemorrhage or mass. CSF SPACES: Asymmetric enlargement of the anterior horn of the left lateral ventricle. SKULL: No fracture, mass, or other significant visible lesion. SINUSES: Scattered mild mucosal thickening and retained secretions. ORBITS: No appreciable abnormality on the limited views. OTHER: Negative CT/CT head/brain wo con IMPRESSION: 1. No intracranial hemorrhage or convincing acute abnormality. 2. No fracture the calvarium or scalp hematoma. 3. Suspect left frontal lobe remote infarction or asymmetric chronic small vessel ischemic changes with and mild encephalomalacic changes/atrophy and subsequent ex vacuo dilation of left lateral ventricle anterior horn. Electronically authenticated by: FATEMEH HARRIS Date: 12/19/2023 08:23
--- NOTE | 2023-12-19 07:01 | ECG_ITS ---
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
[2023-12-19 07:04] LABS: Lactate/Lactic Acid 0.8 mmol/L (0.4-2.0)
[2023-12-19 07:07] LABS: Alanine Aminotransferase 33 U/L (16-63); Albumin Globulin Ratio 0.8; Albumin Level 2.8 g/dL (3.4-5.0); Alkaline Phosphatase 82 U/L (46-116); Anion Gap 15.3; Aspartate Amino Transferase 37 U/L (15-37); BUN Creatinine Ratio 21.6; Bilirubin Total 0.4 mg/dL (0.2-1.0); Calcium 8.4 mg/dL (8.5-10.1); Carbon Dioxide 29.8 mmol/L (21.0-32.0); Chloride 105 mmol/L (98-107); Estimated GFR (African America 39 (>=60 mL/min/1.73m^2); Estimated GFR (Non-African Ame 32 (>=60 mL/min/1.73m^2); Globulin 3.7 g/dL; Potassium 4.1 mmol/L (3.5-5.1); Sodium 146 mmol/L (136-145); Total Protein 6.5 g/dL (6.4-8.2)
[2023-12-19 07:09] LABS: Glucose 38 mg/dL (74-106)
[2023-12-19 07:10] LABS: Troponin I High Sensitivity 654.1 pg/mL (4.0-76.1)
--- NOTE | 2023-12-19 07:21 | XR_ITS ---
The [address] [address] Patient Name: ITALIA ALLEN MRN: [id number] date: 1955 Sex: M Assigned Patient Location: ER Current Patient Location: ER Accession/Order Number: [id number] Exam Date: 12/19/2023 07:35 Report Date: 12/19/2023 08:16 At the request of: DENIZ GRIGSBY Procedure: XR elbow LT min 3V PROCEDURE: XR elbow LT min 3V HISTORY: c/o pain and swelling ; left elbow pain after falling COMPARISON: None. FINDINGS: BONES:Cortical irregularity, osseous growth, an irregular sclerosis within proximal radius at level of tuberosity or biceps tendon inserts. No visible fracture line. SOFT TISSUES:No visible soft tissue swelling. EFFUSION:None visible. OTHER: Negative. XR/XR elbow LT min 3V IMPRESSION: 1. Abnormal appearance of proximal radius and region of biceps tendon insertion; remote avulsion versus fracture is suspected. No convincing acute abnormality. Electronically authenticated by: FATEMEH HARRIS Date: 12/19/2023 08:16
[2023-12-19 07:24] LABS: Glucometer 34 mg/dL (74-106)
[2023-12-19 08:19] LABS: Glucometer 56 mg/dL (74-106)
[2023-12-19] MEDS: DEXTROSE 5%-0.9% NACL 1,000 ML 1,000 ML 125 ML IV (08:48)
[2023-12-19 09:03] LABS: Troponin I High Sensitivity 1053.1 pg/mL (4.0-76.1)
--- NOTE | 2023-12-19 09:13 | ED.GENADUL1 ---
HPI HPI - General Adult General Chief complaint: Recheck/Abnormal Lab/Rx Stated complaint: SOB Time Seen by Provider: 12/19/23 06:43 Source: patient and family Mode of arrival: ambulance Limitations: no limitations History of Present Illness HPI narrative: This patient was brought to the emergency room from his home. His son is with him and provides history as well. He was in the ER upon my arrival at 0700 hrs. this morning. Some preliminary testing was ordered by the previous physician. Apparently this patient was seen by his son at approximately 11:00 last evening and was fine. Early this morning approximately 6 AM he was found beside his bed with disruption of the furniture and he was laying on the floor and could not get up. The patient does not know what happened or how he ended up on the floor. Paramedics arrived and his blood sugar was very low and they gave him an amp of D10. Upon arrival here before I arrived, he was given D50. He is more awake and alert. There is swelling of his face. The son hypothesizes that he may have laid on the floor for several hours last night. He does not remember precisely what dose of insulin he took last night but he takes insulin split doses in the morning in the evening. He was in [facility] this summer and had 2 coronary stents and was told that he needed a third stent but it was a more extensive procedure and it has not be done at that time. He is not on Plavix or Eliquis at this time. He denies any known chest pain palpitations heaviness or squeezing in his chest. He has not been using any nitroglycerin recently. His son make sure he gets all his medications on a regular basis and is his primary caregiver. This patient does not have his who just recently. Related Data Home Medications ?Medication ?Instructions ?Recorded ?Confirmed glipizide 10 mg tablet 10 mg PO BID 10/13/23 12/19/23 insulin glargine 100 unit/mL (3 60 unit subcut DAILY 10/13/23 12/19/23 mL) subcutaneous pen (Lantus Solostar U-100 Insulin) lisinopril 40 mg tablet 40 mg PO DAILY 10/13/23 12/19/23 aspirin 81 mg chewable tablet 81 mg PO DAILY 11/19/23 12/19/23 (Aspirin Childrens) atorvastatin 80 mg tablet 80 mg PO DAILY 11/19/23 12/19/23 carvedilol 25 mg tablet 25 mg PO Q12H 11/19/23 12/19/23 nitroglycerin 0.4 mg sublingual 0.4 mg sublingual Q5M PRN chest 11/19/23 12/19/23 tablet pain prasugrel 10 mg tablet 10 mg PO DAILY 11/19/23 12/19/23 sertraline 50 mg tablet 25 mg PO DAILY 11/19/23 12/19/23 Previous Rx's ?Medication ?Instructions ?Recorded isosorbide mononitrate 30 mg 30 mg PO DAILY #14 tabs 11/19/23 tablet,extended release 24 hr bumetanide 2 mg tablet 3 mg (1.5 x 2 mg) PO BID 30 days 12/11/23 #90 tabs Allergies Allergy/AdvReac Type Severity Reaction Status Date / Time No Known Drug Allergies Allergy Verified 12/19/23 06:15 Opioid HPI Opioid Management Most Recent Opioid Data: Last Pain Scale 5 12/19/23 06:34 12/19/23 Last ED Pain Assessment 12/19/23 06:34 Last ORT Total Score 0 12/08/23 19:58 12/08/23 Last ORT Risk Category Low Risk 12/08/23 19:58 12/08/23 [facility] Medical History (Updated 12/19/23 @ 09:19 by Sravan Navarro MD) CKD stage 3 due to type 2 diabetes mellitus ?E11.22 - Type 2 diabetes mellitus with diabetic chronic kidney disease (ICD-10) ?N18.30 - Chronic kidney disease, stage 3 unspecified (ICD-10) CAD (coronary artery disease) ?I25.10 - Atherosclerotic heart disease of [place] coronary artery without angina pectoris (ICD-10) Diabetes ?E11.9 - Type 2 diabetes mellitus without complications (ICD-10) Hypertension ?I10 - Essential (primary) hypertension (ICD-10) CHF (congestive heart failure) ?I50.9 - Heart failure, unspecified (ICD-10) Surgical History (Updated 12/08/23 @ 20:19 by Maya Silva) Hx of cholecystectomy ?Z90.49 - Acquired absence of other specified parts of digestive tract (ICD-10) H/O heart artery stent ?Z95.5 - Presence of coronary angioplasty implant and graft (ICD-10) Family History (Updated 12/08/23 @ 20:17 by Maya Silva) Mother Family history of CHF (congestive heart failure) Family history of diabetes mellitus Father Family history of cancer Social History (Updated 12/08/23 @ 20:18 by Maya Silva) Within the past year, how often did you have a drink containing alcohol: monthly or less Smoking status: Never smoker Non-prescribed substance use: denies use Previous occupational history: retired Highest level of school completed/degree received: high school graduate Are you now , , , , never or living with a partner: In a typical week, how many times do you talk on the telephone with family, friends, or neighbors: 3 or more times per week How often do you get together with friends or relatives: 3 or more times per week How often do you attend christian or yarsani services: never Little interest or pleasure in doing things: not at all Feeling down, depressed, or hopeless: not at all Feel stressed/tense/nervous/anxious/difficulty sleeping: not at all Do you think of yourself as: straight/heterosexual Gender Identity: male Exam Narrative Exam Narrative: At this time the patient is awake and alert he had received D50 W. His vital signs are noted he is afebrile pulse oximetry is 98% on 4 L. His son indicates that he had a heart attack and congestive heart failure and has been on oxygen at home. An EKG was done immediately on his arrival and does not show any ST segment elevation or malignant ectopy. He is oriented x 3 at this time denies any pain heaviness discomfort or shortness of breath. He does not really remember what happened however. HEENT shows diffuse facial swelling with no hematomas lacerations or contusions. He does not have any neck pain or tenderness to palpation of the neck. His lungs were clear with some scattered rhonchi. Heart sounds are normal with no S3-S4 or murmur. He has spontaneous movement of all the extremities. His abdomen is obese but he does not have any abdominal discomfort or tearing back discomfort. Pulses to the extremities are normal. He does have 1+ lower leg and ankle pitting edema bilaterally. Constitutional Vital Signs, click to edit/add: Last Vital Signs Temp 97.4 F L 12/19/23 06:09 Pulse 87 12/19/23 09:00 Resp 17 12/19/23 09:00 BP 162/77 H 12/19/23 07:18 Pulse Ox 98 12/19/23 09:00 O2 Del Method Nasal Cannula 12/19/23 07:18 O2 Flow Rate 4 12/19/23 07:18 Course Vital Signs Vital signs: Vital Signs Temperature 97.4 F L 12/19/23 06:09 Pulse Rate 83 12/19/23 06:09 Respiratory Rate 16 12/19/23 06:09 Blood Pressure 150/72 H 12/19/23 06:09 Pulse Oximetry 96 12/19/23 06:09 Oxygen Delivery Method Room Air 12/19/23 06:09 Temperature 97.4 F L 12/19/23 06:09 Pulse Rate 87 12/19/23 09:00 Respiratory Rate 17 12/19/23 09:00 Blood Pressure 162/77 H 12/19/23 07:18 Pulse Oximetry 98 12/19/23 09:00 Oxygen Delivery Method Nasal Cannula 12/19/23 07:18 Oxygen Delivery Flow Rate 4 12/19/23 07:18 Medical Decision Making [facility] Narrative Medical decision making narrative: Patient underwent CT imaging of his head without contrast that shows a possible old left frontal lobe infarction. There is no acute hemorrhage or mass lesions at this time. He also had some discomfort of his elbow and there is some suggestion of a possible remote avulsion fracture versus acute fracture in his proximal radius. His initial cardiac troponin is elevated. We repeated that in 2 hours and there is consistent increase in his troponin. At that time we did start him on a heparin drip since he is not on any blood thinners at this time. We did order him a dietary tray and repeated his glucose and it had dropped back down again and so he was given another amp of D50 and IV was switched from saline to D5 normal saline at 125 cc/h. He remained awake and alert in no further care. But because of his history of persisting coronary vascular disease and his elevation of his troponin which we will try to transfer him up to [facility]. His recurring hypoglycemia is probably related to his glipizide. Lab Data Labs: Lab Results 12/19/23 12/19/23 12/19/23 Range/Units 06:20 06:45 07:22 WBC 11.2 H (4.0-11.0) 10^3/uL RBC 3.28 L (4.70-6.10) 10^6/uL Hgb 9.4 L (14.0-18.0) g/dL Hct 30.1 L (42.0-54.0) % MCV 91.8 (80.0-94.0) fL MCH 28.7 (25.9-34.0) pg MCHC 31.2 (29.9-35.2) g/dL RDW 15.1 H (11.0-15.0) % Plt Count 395 (150-450) 10^3/uL MPV 9.8 (9.5-13.5) fL Neut % (Auto) 90.0 H (43.0-75.0) % Lymph % (Auto) 4.5 L (20.5-60.0) % Louisa % (Auto) 4.1 (1.7-12.0) % Eos % (Auto) 0.3 L (0.9-7.0) % Baso % (Auto) 0.5 (0.2-2.0) % Neut # (Auto) 10.1 H (1.4-6.5) 10^3/uL Lymph # (Auto) 0.5 L (1.2-3.8) 10^3/uL Louisa # (Auto) 0.5 (0.3-0.8) 10^3/uL Eos # (Auto) 0.0 (0.0-0.7) 10^3/uL Baso # (Auto) 0.1 (0.0-0.1) 10^3/uL Abs Immat Gran (auto) 0.07 H (0.00-0.03) 10^3/uL Imm/Tot Granulo (auto) 0.6 H (0.0-0.5) % Sodium 146 H (136-145) mmol/L Potassium 4.1 (3.5-5.1) mmol/L Chloride 105 (98-107) mmol/L Carbon Dioxide 29.8 (21.0-32.0) mmol/L Anion Gap 15.3 BUN 45.0 H (7.0-18.0) mg/dL Creatinine 2.08 H (0.70-1.30) mg/dL Est GFR ( Amer) 39 L (>=60 mL/min/1.73m^2) Est GFR (Non-Af Amer) 32 L (>=60 mL/min/1.73m^2) BUN/Creatinine Ratio 21.6 Glucose 38 L* (74-106) mg/dL Lactate 0.8 (0.4-2.0) mmol/L Calcium 8.4 L (8.5-10.1) mg/dL Total Bilirubin 0.4 (0.2-1.0) mg/dL AST 37 (15-37) U/L ALT 33 (16-63) U/L Alkaline Phosphatase 82 (46-116) U/L Troponin I High Sens 654.1 H* (4.0-76.1) pg/mL Total Protein 6.5 (6.4-8.2) g/dL Albumin 2.8 L (3.4-5.0) g/dL Globulin 3.7 g/dL Albumin/Globulin Ratio 0.8 POC Glucose 117 H 34 L* (74-106) mg/dL 12/19/23 12/19/23 Range/Units 08:18 08:38 WBC (4.0-11.0) 10^3/uL RBC (4.70-6.10) 10^6/uL Hgb (14.0-18.0) g/dL Hct (42.0-54.0) % MCV (80.0-94.0) fL MCH (25.9-34.0) pg MCHC (29.9-35.2) g/dL RDW (11.0-15.0) % Plt Count (150-450) 10^3/uL MPV (9.5-13.5) fL Neut % (Auto) (43.0-75.0) % Lymph % (Auto) (20.5-60.0) % Louisa % (Auto) (1.7-12.0) % Eos % (Auto) (0.9-7.0) % Baso % (Auto) (0.2-2.0) % Neut # (Auto) (1.4-6.5) 10^3/uL Lymph # (Auto) (1.2-3.8) 10^3/uL Louisa # (Auto) (0.3-0.8) 10^3/uL Eos # (Auto) (0.0-0.7) 10^3/uL Baso # (Auto) (0.0-0.1) 10^3/uL Abs Immat Gran (auto) (0.00-0.03) 10^3/uL Imm/Tot Granulo (auto) (0.0-0.5) % Sodium (136-145) mmol/L Potassium (3.5-5.1) mmol/L Chloride (98-107) mmol/L Carbon Dioxide (21.0-32.0) mmol/L Anion Gap BUN (7.0-18.0) mg/dL Creatinine (0.70-1.30) mg/dL Est GFR ( Amer) (>=60 mL/min/1.73m^2) Est GFR (Non-Af Amer) (>=60 mL/min/1.73m^2) BUN/Creatinine Ratio Glucose (74-106) mg/dL Lactate (0.4-2.0) mmol/L Calcium (8.5-10.1) mg/dL Total Bilirubin (0.2-1.0) mg/dL AST (15-37) U/L ALT (16-63) U/L Alkaline Phosphatase (46-116) U/L Troponin I High Sens 1053.1 H* (4.0-76.1) pg/mL Total Protein (6.4-8.2) g/dL Albumin (3.4-5.0) g/dL Globulin g/dL Albumin/Globulin Ratio POC Glucose 56 L (74-106) mg/dL Discharge Plan Discharge Chief Complaint: Recheck/Abnormal Lab/Rx Clinical Impression: Syncope and collapse Patient Disposition: [facility] Time of Disposition Decision: 09:19 Condition: Serious Prescriptions / Home Meds: No Action glipizide 10 mg tablet 10 mg PO BID insulin glargine [Lantus Solostar U-100 Insulin] 100 unit/mL (3 mL) insulin pen 60 unit SUBCUT DAILY lisinopril 40 mg tablet 40 mg PO DAILY bumetanide 2 mg tablet 3 mg PO BID 30 Days Qty: 90 0RF carvedilol 25 mg tablet 25 mg PO Q12H atorvastatin 80 mg tablet 80 mg PO DAILY prasugrel 10 mg tablet 10 mg PO DAILY sertraline 50 mg tablet 25 mg PO DAILY aspirin [Aspirin Childrens] 81 mg tablet,chewable 81 mg PO DAILY nitroglycerin 0.4 mg tablet, sublingual 0.4 mg sublingual Q5M PRN (Reason: chest pain) isosorbide mononitrate 30 mg tablet extended release 24 hr 30 mg PO DAILY Qty: 14 0RF Print Language: Polish Referrals: Samara Schultz NP [Primary Care Provider] - 1 week
[2023-12-19] MEDS: HEPARIN SODIUM,PORCINE/D5W 25,000 UNIT/500 ML IV.SOLN 20 UNIT IV (10:00)
[2023-12-19] MEDS: HEPARIN SODIUM (PORCINE) 5,000 UNIT/ML VIAL 4000 UNIT IV (10:00)
[2023-12-19 10:09] LABS: INR 1.13; Partial Thromboplastin Time 28.6 sec (22.3-36.2); Prothrombin Time 11.8 sec (9.0-11.6)
[2023-12-19] MEDS: PRASUGREL HCL 10 MG TABLET PO (10:14)
[2023-12-19] MEDS: ASPIRIN 81 MG TAB.CHEW PO (10:14)
[2023-12-19] MEDS: ACETAMINOPHEN 500 MG TABLET 1000 MG PO ×2 (10:14→15:51)
[2023-12-19 10:24] LABS: Glucometer 93 mg/dL (74-106)
--- NOTE | 2023-12-19 11:32 | PC.NURSE ---
pt repositioned in bed at this time per request. pt remains on trim carpenter and denies further needs at this time.
[2023-12-19 11:58] LABS: Glucometer 101 mg/dL (74-106)
[2023-12-19 13:47] LABS: Glucometer 104 mg/dL (74-106)
[2023-12-19 17:06] LABS: Glucometer 111 mg/dL (74-106)
--- NOTE | 2023-12-19 17:13 | P.HP_ITS ---
HPI H&P: HPI History of Present Illness Chief complaint: SYNCOPE NSTEMI HYPOGLYCEMIA Narrative: Patient is a 68 y.o white male with past medical history of Insulin dependent type 2 diabetes, Hypertension, Congestive Heart failure unknown type, CAD with recent PCI at hospital, GERD, depression, BPH who presented to the ER about 12 hours ago after his son found him collapsed beside the couch. At the time of EMS arrival his blood sugar was 35. Patient responded with Amp of D50. He was brought to the ER. Patient had work up that included head CT that showed no acute findings, left elbow Xray showed chronic avulsion fracture. CBC showed hemoglobin of 9.4, Cr 2.08 with GFR 32, lactate normal, Patient BP 140's/70's. RR 21 with pulse of 96, EKG showed no ST segment elevations or depressions. Patient was placed on Heparin Drip given elevated troponin of 654. Patient was going to be transferred to [facility] in [place] but they do not have a bed available. Patient will be admitted in our ICU until bed at Acute Care Facility is available. Patient is currently having no chest pain. Just admits to acute low back pain from his fall last night. patient wears 4L NC at home. Opioid HPI Opioid Management Most Recent Pain and Opioid Data: Last Pain Scale 5 12/19/23 15:51 12/19/23 Last ED Pain Assessment 12/19/23 06:34 Last MAR Pain Assessment 12/19/23 15:51 Last ORT Total Score 0 12/19/23 17:55 12/19/23 Last ORT Risk Category Low Risk 12/19/23 17:55 12/19/23 Review of Systems ROS Narrative ROS: a complete review of systems were reviewed with patient and are positive as below or listed in History of Chief Complaint. General: no fever, chills, night sweats Head: no headache, trauma, visual changes, nausea or vomiting Skin: no reported rashes, itching or sores Eyes: no blurriness of vision Ears: no reported hearing loss, vertigo, earache, or tinnitus Throat: no sore throat, hoarseness, swelling of neck, or tongue pain Heart: no chest pain Lungs: shortness of breath no cough GI: no diarrhea or vomiting/nausea Urinary: no urinary urgency, frequency or pain Neuro: no numbness or tingling HEM: no bleeding issues or bruising ENDO: no thyroid problems Psych: no anxiety or depression PFSH PFSH Medical History (Updated 12/19/23 @ 18:12 by Quynh Hall DO) Chronic respiratory failure with hypoxia ?J96.11 - Chronic respiratory failure with hypoxia (ICD-10) CKD stage 3 due to type 2 diabetes mellitus ?E11.22 - Type 2 diabetes mellitus with diabetic chronic kidney disease (ICD- 10) ?N18.30 - Chronic kidney disease, stage 3 unspecified (ICD-10) CAD (coronary artery disease) ?I25.10 - Atherosclerotic heart disease of [place] coronary artery without angina pectoris (ICD-10) Diabetes ?E11.9 - Type 2 diabetes mellitus without complications (ICD-10) Hypertension ?I10 - Essential (primary) hypertension (ICD-10) CHF (congestive heart failure) ?I50.9 - Heart failure, unspecified (ICD-10) Surgical History Hx of cholecystectomy ?Z90.49 - Acquired absence of other specified parts of digestive tract (ICD- 10) H/O heart artery stent ?Z95.5 - Presence of coronary angioplasty implant and graft (ICD-10) Family History Mother Family history of CHF (congestive heart failure) Family history of diabetes mellitus Father Family history of cancer Social History Within the past year, how often did you have a drink containing alcohol: monthly or less Smoking status: Never smoker Non-prescribed substance use: denies use Previous occupational history: retired Highest level of school completed/degree received: high school graduate Are you now , , , , never or living with a partner: In a typical week, how many times do you talk on the telephone with family, friends, or neighbors: 3 or more times per week How often do you get together with friends or relatives: 3 or more times per week How often do you attend christian or restorationism services: never Little interest or pleasure in doing things: not at all Feeling down, depressed, or hopeless: not at all Feel stressed/tense/nervous/anxious/difficulty sleeping: not at all Do you think of yourself as: straight/heterosexual Gender Identity: male Meds Home Medications and Allergies Home Medications ?Medication ?Instructions ?Recorded ?Confirmed ?Type glipizide 10 mg tablet 10 mg PO BIDWM 10/13/23 12/19/23 History lisinopril 40 mg tablet 40 mg PO DAILY 10/13/23 12/08/23 History aspirin 81 mg chewable tablet 81 mg PO DAILY 11/19/23 12/19/23 History (Aspirin Childrens) atorvastatin 80 mg tablet 80 mg PO .qhs 11/19/23 12/19/23 History carvedilol 25 mg tablet 25 mg PO Q12H 11/19/23 12/19/23 History isosorbide mononitrate 30 mg 30 mg PO DAILY #14 tabs 11/19/23 12/08/23 Rx tablet,extended release 24 hr nitroglycerin 0.4 mg sublingual 0.4 mg sublingual Q5M PRN chest 11/19/23 12/19/23 History tablet pain prasugrel 10 mg tablet 10 mg PO DAILY 11/19/23 12/19/23 History sertraline 50 mg tablet 25 mg PO DAILY 11/19/23 12/19/23 History bumetanide 2 mg tablet 3 mg (1.5 x 2 mg) PO BID 30 days 12/11/23 Rx #90 tabs insulin glargine-yfgn 100 unit/mL 60 unit subcut DAILY 12/19/23 12/19/23 History (3 mL) subcutaneous pen (Semglee (insulin glargine-yfgn) Pen) omeprazole 40 mg capsule,delayed 40 mg PO .acb 12/19/23 12/19/23 History release tamsulosin 0.4 mg capsule 0.4 mg PO DAILY 12/19/23 12/19/23 History Allergies Allergy/AdvReac Type Severity Reaction Status Date / Time No Known Drug Allergies Allergy Verified 12/19/23 06:15 Exam Narrative Exam Narrative: General: Patient is alert, and oriented to person, place and time with normal affect, proper hygiene Skin: multiple abrasions to bilateral lower ext with, larger upper left lip from biting his lip Head: atraumatic, acephalic Eyes: PERRLA, no nystagmus present, conjunctiva clear, no scleral icterus Heart: Normal rate and rhythm, no murmurs/rubs/gallops Lungs: no audible wheezes, crackles and normal breath sounds all lung mcguire Abdomen: Normal audible bowel sounds, no distension, No palpable masses, no organomegaly, no rebound/guarding/ or rigidity Musculoskeletal: 1+ swelling bilateral lower extremities Neuro: CN II-X grossly intact Constitutional Vital Signs, click to edit/add: Last Vital Signs Temp 97.4 F L 12/19/23 06:09 Pulse 96 H 12/19/23 15:30 Resp 21 H 12/19/23 15:30 BP 144/67 H 12/19/23 15:00 Pulse Ox 100 12/19/23 15:30 O2 Del Method Nasal Cannula 12/19/23 10:21 O2 Flow Rate 4 12/19/23 10:21 Results Labs Labs: Short CBC 12/19/23 Range/Units 06:20 WBC 11.2 H (4.0-11.0) 10^3/uL Hgb 9.4 L (14.0-18.0) g/dL Hct 30.1 L (42.0-54.0) % Plt Count 395 (150-450) 10^3/uL BMP 12/19/23 06:20 Sodium 146 H Potassium 4.1 Chloride 105 Carbon Dioxide 29.8 BUN 45.0 H Creatinine 2.08 H Glucose 38 L* Calcium 8.4 L Liver Function 12/19/23 Range/Units 06:20 Total Bilirubin 0.4 (0.2-1.0) mg/dL AST 37 (15-37) U/L ALT 33 (16-63) U/L Alkaline Phosphatase 82 (46-116) U/L Albumin 2.8 L (3.4-5.0) g/dL Assessment and Plan Assessment and Plan (1) Non-ST elevation (NSTEMI) myocardial infarction: Assessment and Plan: trop is now 1700 with elevated ProBNP, will continue patient on heparin drip, continue with PTT checks q6 hours, due for check now and adjust drip accordingly. restart home meds for BP control, continue high dose lipitor and aspirin. Nitro as needed with PRN oxygen as needed. Given patient's transfer, will hold on Echo but will also check chest X-ray. Patient with risk factors and also recent PCI and appears he needs another. (2) Hypoglycemia due to insulin: Assessment and Plan: hold glipizide and insulin, check glucose q 4 hours, was 35 on arrival, D50 if needed. (3) Syncope and collapse: Assessment and Plan: most likely from hypoglycemia but will need carotid artery ultrasounds at transfer facility, may want to consider MRI brain, CT was negative. (4) CAD (coronary artery disease): Assessment and Plan: continue lipitor, Heparin drip, aspirin. Qualifiers: Associated angina: without angina Coronary Disease-Associated Artery/Lesion type: [place] artery [place] vs. transplanted heart: [place] heart Qualified Code(s): I25.10 - Atherosclerotic heart disease of [place] coronary artery without angina pectoris (5) Diabetes: Assessment and Plan: check sugars q4h Qualifiers: Chronic kidney disease stage: stage 3 (moderate) Chronic kidney disease stage 3 subtype: stage 3a (GFR 45-59) Diabetes mellitus complication detail: w ith chronic kidney disease Diabetes mellitus complication status: with kidney complications Diabetes mellitus long term care social worker insulin use: with long term care social worker use Diabetes mellitus type: type 2 Qualified Code(s): E11.22 - Type 2 diabetes mellitus with diabetic chronic kidney disease; N18.31 - Chronic kidney disease, stage 3a; Z79.4 - [facility] (current) use of insulin (6) Hypertension: Assessment and Plan: continue coreg Qualifiers: Hypertension type: primary hypertension Qualified Code(s): I10 - Essential (primary) hypertension (7) CHF (congestive heart failure): Assessment and Plan: currently with NSTEMI, elevated proBNP, Strict I&Os with fluid restriction of 2L. continue betablocker. Will check chest Xray and consider lasix or bumex if pulmonary edema present. Qualifiers: Heart failure chronicity: acute on chronic Heart failure type: unspecified Qualified Code(s): I50.9 - Heart failure, unspecified (8) CKD stage 3 due to type 2 diabetes mellitus: Assessment and Plan: Cr. 2.08 which seems about his baseline. (9) Chronic respiratory failure with hypoxia: Assessment and Plan: currently at baseline 4L NC Plan Patient is a full code Currently on Heparin drip plan for transfer to Acute Care hospital once bed is available at [facility] in [place].
--- NOTE | 2023-12-19 17:38 | XR_ITS ---
[address] [address] Patient Name: ITALIA ALLEN MRN: [id number] date: 1955 Sex: M Assigned Patient Location: ICU Current Patient Location: ICU Accession/Order Number: [id number] Exam Date: 12/19/2023 18:15 Report Date: 12/19/2023 19:48 At the request of: JEMAL BELLA Procedure: XR chest 1V EXAM: XR chest 1V , 12/19/2023 HISTORY: chest pain COMPARISON: Previous x-ray from 12/08/2023. TECHNIQUE: X-ray chest, portable upright AP view. FINDINGS: Overall low lung volumes. Cardiac silhouette within normal limits. No hilar or mediastinal enlargement. Mild basal atelectasis. No focal consolidation or pulmonary edema. The costophrenic angles are clear. No acute osseous findings. XR/XR chest 1V IMPRESSION: No acute cardiopulmonary findings. Electronically authenticated by: ROGER FLANAGAN Date: 12/19/2023 19:48
--- OUTSIDE RECORDS SUMMARY | 2023-12-19 17:41 | XMS_ITS | CCD ---
Author Organization [facility] Care Team Providers Care Manager Of Transportation Name Role Phone NON STAFF Primary Care Provider UnavailMD Alondra Rodriguez Admit Provider MD Ann Plata Other Provider MD Yovanny Rivera Attending Provider [phone] Alondra Gonzales Admitting Unavailable NON STAFF Primary [...] Medication Allergies] Propensity to adverse reactions (disorder) [facility] Repository Medications Current Medications Medication [...] Daily, # 30 cap(s), Refills(s) 11, Pharmacy: [facility], 178, cm, 11/22/23 15:47:00 EDT, Height/Length [...] Arthritis 11-22-2023 Chronic Other aftercare (2 sources) 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; Translations: [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 Normal [facility] ECG 12-LEADon 11-13-2023 ECG 12-LEAD Ventricular Rate 72 Atrial Rate 72 P-R Interval 188 QRS Duration 96 Q-T Interval 398 QTC Calculation(Bazett) 435 P Ames -13 R Ames 9 T Ames 36 QRS Count 12 Q Onset 216 P Onset 122 P Offset 163 T Offset 415 QTC Fredericia 423 Diagnosis Normal sinus rhythm Normal ECG When compared with ECG of 16-OCT-2023 08:50, No significant change was found Confirmed by Mere Urban ([id number]) on 11/14/2023 6:48:02 PM Normal [facility] CBC panel Auto (Bld)on 10-23 Erythrocyte distribution width (RBC) [Ratio] 15.0 % High 11.5-14.5 [facility] Comment on above: Performed By: #### 5 8077-9 #### ERICA Tam ([id number]) [facility] ([facility]) [address] [place] [address] 34232 Hematocrit (Bld) [Volume fraction] 36.3 % Low 41.0-52.0 [facility] Comment on above: Performed By: #### 5 8077-9 #### ERICA Tam ([id number]) [facility] ([facility]) [address] [place] [address] 97647 Hemoglobin (Bld) [Mass/Vol] 11.4 g/dL Low 13.5-17.5 [facility] Comment on above: Performed By: #### 5 8077-9 #### ERICA Tam ([id number]) [facility] ([facility]) [address] [place] [address] 66598 MCH (RBC) [Entitic mass] 29.1 pg Normal 26.0-34.0 [facility] Comment on above: Performed By: #### 5 8077-9 #### ERICA Tam ([id number]) [facility] ([facility]) [address] [place] [address] 45714 MCHC (RBC) [Mass/Vol] 31.4 g/dL Low 32.0-36.0 [facility] Comment on above: Performed By: #### 5 8077-9 #### ERICA Tam ([id number]) [facility] ([facility]) [address] [place] [address] 27393 MCV (RBC) [Entitic vol] 93 fL Normal 80-100 [facility] Comment on above: Performed By: #### 5 8077-9 #### ERICA Tam ([id number]) [facility] ([facility]) [address] [place] [address] 96348 Nucleated RBC/100 WBC (Bld) [Ratio] 0.0 /100 WBCs Normal 0.0-0.0 [facility] Comment on above: Performed By: #### 5 8077-9 #### ERICA Tam ([id number]) [facility] ([facility]) [address] [place] [address] 11889 Platelets (Bld) [#/Vol] 313 x10*3/uL Normal 150-450 [facility] Comment on above: Performed By: #### 5 8077-9 #### ERICA Tam ([id number]) [facility] ([facility]) [address] [place] [address] 84735 RBC (Bld) [#/Vol] 3.92 x10*6/uL Low 4.50-5.90 [facility] Comment on above: Performed By: #### 5 8077-9 #### ERICA Tam ([id number]) [facility] ([facility]) [address] [place] [address] WBC (Bld) [#/Vol] 8.9 x10*3/uL Normal 4.4-11.3 [facility] Comment on above: Performed By: #### 5 8077-9 #### ERICA Tam ([id number]) [facility] ([facility]) [address] [place] [address] 56697 Glucose Test strip manual (B ld) [Mass/Vol]on 10-24-2023 Glucose [Mass/Vol] 203 mg/dL High 74-99 [facility] Comment on above: Performed By: #### 5 8077-9 #### ERICA Tam ([id number]) [facility] ([facility]) [address] [place] [address] 59567 Renal function 2000 panelon 10-24-2023 Albumin BCP dye [Mass/Vol] 3.2 g/dL Low 3.4-5.0 [facility] Comment on above: Performed By: #### 5 8077-9 #### ERICA Tam ([id number]) [facility] ([facility]) [address] [place] [address] 70203 Anion gap [Moles/Vol] 12 mmol/L Normal 10-20 [facility] Comment on above: Performed By: #### 5 8077-9 #### ERICA Tam ([id number]) [facility] ([facility]) [address] [place] [address] 64330 Calcium [Mass/Vol] 8.4 mg/dL Low 8.6-10.6 [facility] Comment on above: Performed By: #### 5 8077-9 #### ERICA Tam ([id number]) [facility] ([facility]) [address] [place] [address] 89274 Chloride [Moles/Vol] 105 mmol/L Normal 98-107 [facility] Comment on above: Performed By: #### 5 8077-9 #### ERICA Tam ([id number]) [facility] ([facility]) [address] [place] [address] CO2 [Moles/Vol] 24 mmol/L Normal 21-32 [facility] Comment on above: Performed By: #### 5 8077-9 #### ERICA Tam ([id number]) [facility] ([facility]) [address] [place] [address] Creatinine [Mass/Vol] 1.72 mg/dL High 0.50-1.30 [facility] Comment on above: Performed By: #### 5 8077-9 #### ERICA Tam ([id number]) [facility] ([facility]) [address] [place] [address] 52978 Glomerular filtration rate/1.73 sq M.predicted 42 mL/min/1.73m*2 Low >60 [facility] Comment on above: Result Comment: Calc ulations of estimated GFR are performed using the 2020 CKD-EPI Study Refit equation without the race variable for the IDMS-Traceable creatinine methods. https://jasn.asnjournals.org/content//ASN.89690 04283 Performed By: #### 5 8077-9 #### ERICA Tam ([id number]) [facility] ([facility]) [address] [place] [address] Glucose [Mass/Vol] 184 mg/dL High 74-99 [facility] Comment on above: Performed By: #### 5 8077-9 #### ERICA Tam ([id number]) [facility] ([facility]) [address] [place] [address] Phosphate [Mass/Vol] 3.9 mg/dL Normal 2.5-4.9 [facility] Comment on above: Result Comment: The performance characteristics of phosphorus testing in heparinized plasma have been validated by the individual laboratory site where testing is performed. Testing on heparinized plasma is not approved by the FDA; however, such approval is not necessary. Performed By: #### 5 8077-9 #### ERICA Tam ([id number]) [facility] ([facility]) [address] [place] [address] Potassium [Moles/Vol] 4.1 mmol/L Normal 3.5-5.3 [facility] Comment on above: Performed By: #### 5 8077-9 #### ERICA MCDONALD L ([id number]) [facility] ([facility]) [address] [place] [address] 80977 Sodium [Moles/Vol] 137 mmol/L Normal 136-145 [facility] Comment on above: Performed By: #### 5 8077-9 #### ERICA MCDONALD L ([id number]) [facility] ([facility]) [address] [place] [address] 72743 Urea nitrogen [Mass/Vol] 38 mg/dL [facility] 6-23 [facility] Comment on above: Performed By: #### 5 8077-9 #### ERICA MCDONALD L ([id number]) [facility] ([facility]) [address] [place] [address] 99416 Activated clotting timeon ACT Coag (Bld) [address] Comment on above: Result Comment: Targ et ACT range will vary based on the patient population, clinical status, and surgical intervention occurring. Performed By: #### 5 8077-9 #### ERICA MCDONALD L ([id number]) [facility] ([facility]) [address] [place] [address] 43355 ACT Coag (Bld) [address] Comment on above: Result Comment: Targ et ACT range will vary based on the patient population, clinical status, and surgical intervention occurring. Performed By: #### 5 8077-9 #### ERICA MCDONALD L ([id number]) [facility] ([facility]) [address] [place] [address] 91405 ACT Coag (Bld) [address] Comment on above: Result Comment: Targ et ACT range will vary based on the patient population, clinical status, and surgical intervention occurring. Performed By: #### 5 8077-9 #### ERICA Tam ([id number]) [facility] ([facility]) [address] [place] [address] 35147 CARDIAC CATHETERIZATION PROC Tevin 10-23-2023 CARDIAC CATHETERIZATION PROCEDURE [facility], [employer], [address] [place], [place] [address] Cardiovascular Catheterization Report Patient Name: ITALIA ALLEN Performing Physician: [id number] Wiley MD Study Date: 10/23/2023 Verifying Physician: Dior Wiley MD MRN/PID: [id number] Sample Finisher/Co-Scrub: Ordering Provider: [id number] INDERJIT COOLEY Date of /Age: 6 1955 / 68 years Sample Finisher: Gender: M Fellow: [id number] Inderjit Cooley DM Admit Date: Fellow: Abdoulaye [...] dysfunction. Heart failure. Recent myocardial infarction. Recent ND. Medical History: Stress test performed: No. CTA performed: No. [facility] accessed: No. LVEF Assessed: Yes. [...] worsening dyspnea. He was subsequently transferred to [facility] for further workup. 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 Transthoracic echocardiogram demonstrated an LVEF of 45 to 50%. He was then transferred to [facility] for CABG evaluation. Sadly, his about a [...] was calcified. Right Coronary Artery Distribution: Known SOAP MAKER. Coronary Interventions: After infiltration with 2% Lidocaine, the right was cannulated with a modified Seldinger technique with ultrasound guidance. Subsequently a 6 Venezuelan sheath was placed antegrade in the right. A 6 [place]an EBU 3.5 guide catheter was advanced over [...] rodrigo. Post-stent intravascular ultrasound assessment with the [place] [facility] catheter was performed. IVUS demonstrated an [...] 4 pa (more content not included)... Normal [facility] CBC panel Auto (Bld)on 10-22 Erythrocyte distribution width (RBC) [Ratio] 14.6 % High 11.5-14.5 [facility] Comment on above: Performed By: #### 7 77-3 #### ERICA Tam ([id number]) [facility] ([facility]) [address] [place] [address] 49564 Hematocrit (Bld) [Volume fraction] 37.2 % Low 41.0-52.0 [facility] Comment on above: Performed By: #### 7 77-3 #### ERICA MCDONALD L ([id number]) [facility] ([facility]) [address] [place] [address] 11002 Hemoglobin (Bld) [Mass/Vol] 11.2 g/dL Low 13.5-17.5 [facility] Comment on above: Performed By: #### 7 77-3 #### ERICA MCDONALD L ([id number]) [facility] ([facility]) [address] [place] [address] 22106 MCH (RBC) [Entitic mass] 27.9 pg Normal 26.0-34.0 [facility] Comment on above: Performed By: #### 7 77-3 #### ERICA MCDONALD L ([id number]) [facility] ([facility]) [address] [place] [address] MCHC (RBC) [Mass/Vol] 30.1 g/dL Low 32.0-36.0 [facility] Comment on above: Performed By: #### 7 77-3 #### ERICA Tam ([id number]) [facility] ([facility]) [address] [place] [address] 77399 MCV (RBC) [Entitic vol] 93 fL Normal 80-100 [facility] Comment on above: Performed By: #### 7 77-3 #### ERICA Tam ([id number]) [facility] ([facility]) [address] [place] [address] 48649 Nucleated RBC/100 WBC (Bld) [Ratio] 0.0 /100 WBCs Normal 0.0-0.0 [facility] Comment on above: Performed By: #### 7 77-3 #### ERICA Tam (85783) [facility] ([facility]) [address] [place] [address] 78339 Platelets (Bld) [#/Vol] 334 x10*3/uL Normal 150-450 [facility] Comment on above: Performed By: #### 7 77-3 #### ERICA Tam ([id number]) [facility] ([facility]) [address] [place] [address] 23105 RBC (Bld) [#/Vol] 4.01 x10*6/uL Low 4.50-5.90 [facility] Comment on above: Performed By: #### 7 77-3 #### ERICA Tam ([id number]) [facility] ([facility]) [address] [place] [address] 14606 WBC (Bld) [#/Vol] 9.6 x10*3/uL Normal 4.4-11.3 [facility] Comment on above: Performed By: #### 7 77-3 #### ERICA Tam ([id number]) [facility] ([facility]) [address] [place] [address] 15672 Glucose Test strip manual (B ld) [Mass/Vol]on 10-23-2023 Glucose [Mass/Vol] 238 mg/dL High 74-99 [facility] Comment on above: Performed By: #### 5 8077-9 #### ERICA Tam ([id number]) [facility] ([facility]) [address] [place] [address] Glucose [Mass/Vol] 96 mg/dL Normal 74-99 [facility] Comment on above: Performed By: #### 7 77-3 #### ERICA Tam ([id number]) [facility] ([facility]) [address] [place] [address] Glucose [Mass/Vol] 101 mg/dL High 74-99 [facility] Comment on above: Performed By: #### 7 77-3 #### ERICA Tam ([id number]) [facility] ([facility]) [address] [place] [address] Glucose [Mass/Vol] 96 mg/dL Normal 74-99 [facility] Comment on above: Performed By: #### 7 77-3 #### ERICA Tam ([id number]) [facility] ([facility]) [address] [place] [address] 56003 Renal function 2000 panelon 10-23-2023 Albumin BCP dye [Mass/Vol] 3.2 g/dL Low 3.4-5.0 [facility] Comment on above: Performed By: #### 7 77-3 #### ERICA Tam ([id number]) [facility] ([facility]) [address] [place] [address] Anion gap [Moles/Vol] 13 mmol/L Normal 10-20 [facility] Comment on above: Performed By: #### 7 77-3 #### ERICA Tam ([id number]) [facility] ([facility]) [address] [place] [address] Calcium [Mass/Vol] 8.5 mg/dL Low 8.6-10.6 [facility] Comment on above: Performed By: #### 7 77-3 #### ERICA Tam ([id number]) [facility] ([facility]) [address] [place] [address] Chloride [Moles/Vol] 103 mmol/L Normal 98-107 [facility] Comment on above: Performed By: #### 7 77-3 #### ERICA ARREOLATZER L ([id number]) [facility] ([facility]) [address] [place] [address] CO2 [Moles/Vol] 25 mmol/L Normal 21-32 [facility] Comment on above: Performed By: #### 7 77-3 #### ERICA RESTREPOMOTZER L ([id number]) [facility] ([facility]) [address] [place] [address] Creatinine [Mass/Vol] 1.77 mg/dL High 0.50-1.30 [facility] Comment on above: Performed By: #### 7 77-3 #### ERICA HIGGINSER L ([id number]) [facility] ([facility]) [address] [place] [address] 24016 Glomerular filtration rate/1.73 sq M.predicted 41 mL/min/1.73m*2 Low >60 [facility] Comment on above: Result Comment: Calc ulations of estimated GFR are performed using the 2020 CKD-EPI Study Refit equation without the race variable for the IDMS-Traceable creatinine methods. https://jasn.asnjournals.org/content/early//ASN.10873 22404 Performed By: #### 7 77-3 #### ERICA RESTREPOMOTZER L ([id number]) [facility] ([facility]) [address] [place] [address] Glucose [Mass/Vol] 99 mg/dL Normal 74-99 [facility] Comment on above: Performed By: #### 7 77-3 #### ERICA RESTREPOMOTZER L ([id number]) [facility] ([facility]) [address] [place] [address] Phosphate [Mass/Vol] 4.9 mg/dL Normal 2.5-4.9 [facility] Comment on above: Result Comment: MODE RATE [...] necessary. Performed By: #### 7 77-3 #### EIRCA Tam ([id number]) [facility] ([facility]) [address] [place] [address] 38367 Potassium [Moles/Vol] 5.2 mmol/L Normal 3.5-5.3 [facility] Comment on above: Result Comment: MODE RATE HEMOLYSIS DETECTED. The result may be falsely elevated due to hemolysis or other interferents. Clinical correlation is recommended. Repeat testing may be considered. Performed By: #### 7 77-3 #### ERICA Tam ([id number]) [facility] ([facility]) [address] [place] [address] 20096 Sodium [Moles/Vol] 136 mmol/L Normal 136-145 [facility] Comment on above: Performed By: #### 7 77-3 #### ERICA Tam ([id number]) [facility] ([facility]) [address] [place] [address] 22873 Urea nitrogen [Mass/Vol] 39 mg/dL High 6-23 [facility] Comment on above: Performed By: #### 7 77-3 #### ERICA Tam ([id number]) [facility] ([facility]) [address] [place] [address] 06062 Glucose Test strip manual (B ld) [Mass/Vol]on 10-22-2023 Glucose [Mass/Vol] 246 mg/dL High 74-99 [facility] Comment on above: Performed By: #### 7 77-3 #### ERICA Tam ([id number]) [facility] ([facility]) [address] [place] [address] 74484 Glucose [Mass/Vol] 186 mg/dL High 74-99 [facility] Comment on above: Performed By: #### 7 77-3 #### ERICA Tam ([id number]) [facility] ([facility]) [address] [place] [address] Glucose [Mass/Vol] 213 mg/dL High 74-99 [facility] Comment on above: Performed By: #### 7 77-3 #### ERICA Tam ([id number]) [facility] ([facility]) [address] [place] [address] Glucose [Mass/Vol] 143 mg/dL High 74-99 [facility] Comment on above: Performed By: #### 7 77-3 #### ERICA Tam ([id number]) [facility] ([facility]) [address] [place] [address] 75907 Renal function 2000 panelon 10-22-2023 Albumin BCP dye [Mass/Vol] 3.3 g/dL Low 3.4-5.0 [facility] Comment on above: Performed By: #### 7 77-3 #### ERICA Tam ([id number]) [facility] ([facility]) [address] [place] [address] 05898 Anion gap [Moles/Vol] 14 mmol/L Normal 10-20 [facility] Comment on above: Performed By: #### 7 77-3 #### ERICA Tam ([id number]) [facility] ([facility]) [address] [place] [address] 17450 Calcium [Mass/Vol] 8.8 mg/dL Normal 8.6-10.6 [facility] Comment on above: Performed By: #### 7 77-3 #### ERICA Tam ([id number]) [facility] ([facility]) [address] [place] [address] 45572 Chloride [Moles/Vol] 101 mmol/L Normal 98-107 [facility] Comment on above: Performed By: #### 7 77-3 #### ERICA Tam ([id number]) [facility] ([facility]) [address] [place] [address] 29441 CO2 [Moles/Vol] 23 mmol/L Normal 21-32 [facility] Comment on above: Performed By: #### 7 77-3 #### ERICA Tam ([id number]) [facility] ([facility]) [address] [place] [address] Creatinine [Mass/Vol] 1.75 mg/dL High 0.50-1.30 [facility] Comment on above: Performed By: #### 7 77-3 #### ERICA Tam ([id number]) [facility] ([facility]) [address] [place] [address] Glomerular filtration rate/1.73 sq M.predicted 42 mL/min/1.73m*2 Low >60 [facility] Comment on above: Result Comment: Calc ulations of estimated GFR are performed using the 2020 CKD-EPI Study Refit equation without the race variable for the IDMS-Traceable creatinine methods. https://jasn.asnjournals.org/content/early//ASN.75650 77448 Performed By: #### 7 77-3 #### ERICA MCDONALD L ([id number]) [facility] ([facility]) [address] [place] [address] Glucose [Mass/Vol] 214 mg/dL High 74-99 [facility] Comment on above: Performed By: #### 7 77-3 #### ERICA Tam ([id number]) [facility] ([facility]) [address] [place] [address] Phosphate [Mass/Vol] 4.3 mg/dL Normal 2.5-4.9 [facility] Comment on above: Result Comment: The performance characteristics of phosphorus testing in heparinized plasma have been validated by the individual laboratory site where testing is performed. Testing on heparinized plasma is not approved by the FDA; however, such approval is not necessary. Performed By: #### 7 77-3 #### ERICA MCDONALD L ([id number]) [facility] ([facility]) [address] [place] [address] Potassium [Moles/Vol] 4.1 mmol/L Normal 3.5-5.3 [facility] Comment on above: Performed By: #### 7 77-3 #### ERICA Tam ([id number]) [facility] ([facility]) [address] [place] [address] 00062 Sodium [Moles/Vol] 134 mmol/L Low 136-145 [facility] Comment on above: Performed By: #### 7 77-3 #### ERICA Tam ([id number]) [facility] ([facility]) [address] [place] [address] 66170 Urea nitrogen [Mass/Vol] 38 mg/dL High 6-23 [facility] Comment on above: Performed By: #### 7 77-3 #### ERICA Tam ([id number]) [facility] ([facility]) [address] [place] [address] 99713 Glucose Test strip manual (B ld) [Mass/Vol]on 10-21-2023 Glucose [Mass/Vol] 189 mg/dL High 74-99 [facility] Comment on above: Performed By: #### 3 274-8 #### ERICA Tam ([id number]) [facility] ([facility]) [address] [place] [address] 13289 Glucose [Mass/Vol] 258 mg/dL High 7499 [facility] Comment on above: Performed By: #### 3 274-8 #### ERICA Tam ([id number]) [facility] ([facility]) [address] [place] [address] 05053 Glucose [Mass/Vol] 392 mg/dL High 74-[address] [place] [address] Comment on above: Performed By: #### 3 274-8 #### ERICA Tam ([id number]) [facility] ([facility]) [address] [place] [address] 40827 Glucose [Mass/Vol] 254 mg/dL High -[address] [place] [address] Comment on above: Performed By: #### 3 274-8 #### ERICA Tam ([id number]) [facility] ([facility]) [address] [place] [address], [place] [address] Glucose [Mass/Vol] 296 mg/dL High 74-99 [facility] Comment on above: Performed By: #### 3 274-8 #### ERICA Tam ([id number]) [facility] ([facility]) [address] [place] [address] 63276 CBC panel Auto (Bld)on 10-19 Erythrocyte distribution width (RBC) [Ratio] 14.6 % High 11.5-14.5 [facility] Comment on above: Performed By: #### 3 274-8 #### ERICA Tam (91958) [facility] ([facility]) [address] [place] [address] 52353 Hematocrit (Bld) [Volume fraction] 34.7 % Low 41.0-52.0 [facility] [place] Comment on above: Performed By: #### 3 274-8 #### ERICA Tam ([id number]) [facility] ([facility]) [address] [place] [address] 98631 Hemoglobin (Bld) [Mass/Vol] 11.2 g/dL Low 13.5-17.5 [facility] [place] Comment on above: Performed By: #### 3 274-8 #### ERICA Tam ([id number]) [facility] ([facility]) [address] [place] [address] 85819 MCH (RBC) [Entitic mass] 28.9 pg Normal 26.0-34.0 [facility] [place] Comment on above: Performed By: #### 3 274-8 #### ERICA Tam ([id number]) [facility] ([facility]) [address] [place] [address] 94582 MCHC (RBC) [Mass/Vol] 32.3 g/dL Normal 32.0-36.0 [facility] Comment on above: Performed By: #### 3 274-8 #### ERICA Tam ([id number]) [facility] ([facility]) [address] [place] [address] 48682 MCV (RBC) [Entitic vol] 89 fL Normal 80-100 [facility] [place] Comment on above: Performed By: #### 3 274-8 #### ERICA Tam ([id number]) [facility] ([facility]) [address] [place] [address] 66192 Nucleated RBC/100 WBC (Bld) [Ratio] 0.0 /100 WBCs Normal 0.0-0.0 [facility] [place] Comment on above: Performed By: #### 3 274-8 #### ERICA Tam ([id number]) [facility] ([facility]) [id number] [place] [address] 35186 Platelets (Bld) [#/Vol] 293 x10*3/uL Normal 150-450 [facility] [place] Comment on above: Performed By: #### 3 274-8 #### ERICA Tam ([id number]) [facility] ([facility]) [address] [place] [address] 91757 RBC (Bld) [#/Vol] 3.88 x10*6/uL Low 4.50-5.90 [facility] Comment on above: Performed By: #### 3 274-8 #### ERICA Tam ([id number]) [facility] ([facility]) [address] [place] [address] 96157 WBC (Bld) [#/Vol] 8.6 x10*3/uL Normal 4.4-11.3 [facility] Comment on above: Performed By: #### 3 274-8 #### ERICA Tam ([id number]) [facility] ([facility]) [address] [place] [address] 27988 Glucose Test strip manual (B ld) [Mass/Vol]on 10-20-2023 Glucose [Mass/Vol] 298 mg/dL High 7499 [facility] Comment on above: Performed By: #### 3 274-8 #### ERICA Tam ([id number]) [facility] ([facility]) [address] [place] [address] 61790 Glucose [Mass/Vol] 298 mg/dL High 74-99 [facility] Comment on above: Performed By: #### 3 274-8 #### ERICA Tam ([id number]) [facility] ([facility]) [address] [place] [address] 52548 Glucose [Mass/Vol] 294 mg/dL High -[address] [place] [address] Comment on above: Performed By: #### T HYDS #### ERICA Tam ([id number]) [facility] ([facility]) [address] [place] [address] 57113 Glucose [Mass/Vol] 173 mg/dL High -[address] [place] [address] Comment on above: Performed By: #### T HYDS #### ERICA Tam ([id number]) [facility] ([facility]) [address] [place] [address] 35896 Glucose [Mass/Vol] 146 mg/dL High [address] [place] [address] Comment on above: Performed By: #### T HYDS #### ERICA Tam ([id number]) [facility] ([facility]) [address] [place] [address] 27190 Magnesiumon 10-20-2023 Magnesium [Mass/Vol] 1.74 mg/dL Normal 1.60-2.40 [facility] Comment on above: Performed By: #### 3 274-8 #### ERICA Tam ([id number]) [facility] ([facility]) [address] [place] [address] 59861 Renal function 2000 panelon 10-20-2023 Albumin BCP dye [Mass/Vol] 3.3 g/dL Low 3.4-5.0 [facility] [place] Comment on above: Performed By: #### 3 274-8 #### ERICA Tam ([id number]) [facility] ([facility]) [address] [place] [address] 59024 Anion gap [Moles/Vol] 11 mmol/L Normal 10-20 [facility] Comment on above: Performed By: #### 3 274-8 #### ERICA Tam ([id number]) [facility] ([facility]) [address] [place] [address] Calcium [Mass/Vol] 8.5 mg/dL Low 8.6-10.6 [facility] Comment on above: Performed By: #### 3 274-8 #### ERICA Tam ([id number]) [facility] ([facility]) [address] [place] [address] Chloride [Moles/Vol] 102 mmol/L Normal 98-107 [facility] Comment on above: Performed By: #### 3 274-8 #### ERICA MCDONALD L ([id number]) [facility] ([facility]) [address] [place] [address] CO2 [Moles/Vol] 25 mmol/L Normal 21-32 [facility] Comment on above: Performed By: #### 3 274-8 #### ERICA Tam ([id number]) [facility] ([facility]) [address] [place] [address] Creatinine [Mass/Vol] 1.89 mg/dL High 0.50-1.30 [facility] Comment on above: Performed By: #### 3 274-8 #### ERICA MCDONALD L ([id number]) [facility] ([facility]) [address] [place] [address] 56972 Glomerular filtration rate/1.73 sq M.predicted 38 mL/min/1.73m*2 Low >60 [facility] [place] Comment on above: Result Comment: Calc ulations of estimated GFR are performed using the 2020 CKD-EPI Study Refit equation without the race variable for the IDMS-Traceable creatinine methods. https://jasn.asnjournals.org/content//ASN.48481 85206 Performed By: #### 3 274-8 #### ERICA MCDONALD L ([id number]) [facility] ([facility]) [address] [place] [address] Glucose [Mass/Vol] 323 mg/dL High 74-99 [facility] Comment on above: Performed By: #### 3 274-8 #### ERICA Tam ([id number]) [facility] ([facility]) [address] [place] [address] 09656 Phosphate [Mass/Vol] 3.0 mg/dL Normal 2.5-4.9 [facility] Comment on above: Result Comment: The performance characteristics of phosphorus testing in heparinized plasma have been validated by the individual laboratory site where testing is performed. Testing on heparinized plasma is not approved by the FDA; however, such approval is not necessary. Performed By: #### 3 274-8 #### ERICA Tam ([id number]) [facility] ([facility]) [address] [place] [address] 62550 Potassium [Moles/Vol] 3.9 mmol/L Normal 3.5-5.3 [facility] Comment on above: Performed By: #### 3 274-8 #### ERICA Tam ([id number]) [facility] ([facility]) [address] [place] [address] 44361 Sodium [Moles/Vol] 134 mmol/L Low 136-145 [facility] Comment on above: Performed By: #### 3 274-8 #### ERCIA Tam ([id number]) [facility] ([facility]) [address] [place] [address] 68187 Urea nitrogen [Mass/Vol] 31 mg/dL High 6-23 [facility] [place] Comment on above: Performed By: #### 3 274-8 #### ERICA Tam ([id number]) [facility] ([facility]) [address] [place] [address] 75139 Glucose Test strip manual (B ld) [Mass/Vol]on 10-19-2023 Glucose [Mass/Vol] 355 mg/dL High 74-99 [facility] Comment on above: Performed By: #### T HYDS #### ERICA Tam ([id number]) [facility] ([facility]) [address] [place] [address] 10478 Glucose [Mass/Vol] 249 mg/dL High [address] [place] [address] Comment on above: Performed By: #### T HYDS #### ERICA Tam ([id number]) [facility] ([facility]) [address] [place] [address] 57252 Glucose [Mass/Vol] 274 mg/dL High [address] [place] [address] Comment on above: Performed By: #### T HYDS #### ERICA Tam ([id number]) [facility] ([facility]) [address] [place] [address] 28097 Glucose [Mass/Vol] 129 mg/dL High [address] [place] [address] Comment on above: Performed By: #### T HYDS #### ERICA Tam ([id number]) [facility] ([facility]) [address] [place] [address] 23835 Glucose [Mass/Vol] 121 mg/dL High [address] [place] [address] Comment on above: Performed By: #### T HYDS #### ERICA Tam ([id number]) [facility] ([facility]) [address] [place] [address] 57968 CBC panel Auto (Bld)on 10-17 Erythrocyte distribution width (RBC) [Ratio] 14.6 % High 11.5-14.5 [facility] [place] Comment on above: Performed By: #### L IPIN #### ERICA Tam ([id number]) [facility] ([facility]) [address] [place] [address] 25667 Hematocrit (Bld) [Volume fraction] 34.3 % Low 41.0-52.0 [facility] [place] Comment on above: Performed By: #### L IPIN #### ERICA Tam ([id number]) [facility] ([facility]) [address] [place] [address] 55817 Hemoglobin (Bld) [Mass/Vol] 10.7 g/dL Low 13.5-17.5 [facility] [place] Comment on above: Performed By: #### L IPIN #### ERICA Tam ([id number]) [facility] ([facility]) [address] [place] [address] MCH (RBC) [Entitic mass] 28.7 pg Normal 26.0-34.0 [facility] [place] Comment on above: Performed By: #### L IPIN #### ERICA Tam ([id number]) [facility] ([facility]) [address] [place] [address] 17031 MCHC (RBC) [Mass/Vol] 31.2 g/dL Low 32.0-36.0 [facility] Comment on above: Performed By: #### L IPIN #### ERICA Tam ([id number]) [facility] ([facility]) [address] [place] [address] 13021 MCV (RBC) [Entitic vol] 92 fL Normal 80-100 [facility] [place] Comment on above: Performed By: #### L IPIN #### ERICA Tam ([id number]) [facility] ([facility]) [address] [place] [address] 34961 Nucleated RBC/100 WBC (Bld) [Ratio] 0.0 /100 WBCs Normal 0.0-0.0 [facility] [place] Comment on above: Performed By: #### L IPIN #### ERICA Tam ([id number]) [facility] ([facility]) [address] [place] [address] 11949 Platelets (Bld) [#/Vol] 295 x10*3/uL Normal 150-450 [facility] [place] Comment on above: Performed By: #### L IPIN #### ERICA Tam ([id number]) [facility] ([facility]) [address] [place] [address] 93211 RBC (Bld) [#/Vol] 3.73 x10*6/uL Low 4.50-5.90 [facility] Comment on above: Performed By: #### L IPIN #### ERICA Tam ([id number]) [facility] ([facility]) [address] [place] [address] 63131 WBC (Bld) [#/Vol] 7.2 x10*3/uL Normal 4.4-11.3 [facility] Comment on above: Performed By: #### L IPIN #### ERICA Tam ([id number]) [facility] ([facility]) [address] [place] [address] 86268 Glucose Test strip manual (B ld) [Mass/Vol]on 10-18-2023 Glucose [Mass/Vol] 169 mg/dL High [address] [place] [address] Comment on above: Performed By: #### T HYDS #### ERICA Tam ([id number]) [facility] ([facility]) [address] [place] [address] 40271 Glucose [Mass/Vol] 238 mg/dL High [address] [place] [address] Comment on above: Performed By: #### L IPIN #### ERICA Tam ([id number]) [facility] ([facility]) [address] [place] [address] 18619 Glucose [Mass/Vol] 251 mg/dL High [address] [place] [address] Comment on above: Performed By: #### L IPIN #### ERICA Tam ([id number]) [facility] ([facility]) [address] [place] [address] 60342 Glucose [Mass/Vol] 191 mg/dL High [address] [place] [address] Comment on above: Performed By: #### L IPIN #### ERICA Tam ([id number]) [facility] ([facility]) [address] [place] [address] 36435 Heparin.unfractionatedon Heparin unfractionated Chromogenic method Qn (PPP) 0.4 IU/mL Normal See Comment Below for Therapeutic Ranges [facility] [place] Comment on above: Order Comment: When two [...] to local Pharmacy and the [facility] Guidelines for Anticoagulation Therapy available on the [facility] intranet at: [email or web address] Performed By: #### L IPIN #### ERICA Tam ([id number]) [facility] ([facility]) [address] [place] [address] 89834 Magnesiumon 10-18-2023 Magnesium [Mass/Vol] 1.77 mg/dL Normal 1.60-2.40 [facility] Comment on above: Performed By: #### L IPIN #### ERICA Tam ([id number]) [facility] ([facility]) [address] [place] [address] 68082 Renal function 2000 panelon 10-18-2023 Albumin BCP dye [Mass/Vol] 3.3 g/dL Low 3.4-5.0 [facility] [place] Comment on above: Performed By: #### T HYDS #### ERICA Tam ([id number]) [facility] ([facility]) [address] [place] [address] 58881 Anion gap [Moles/Vol] 12 mmol/L Normal 10-20 [facility] Comment on above: Performed By: #### T HYDS #### ERICA Tam ([id number]) [facility] ([facility]) [address] [place] [address] 87209 Calcium [Mass/Vol] 8.5 mg/dL Low 8.6-10.6 [facility] Comment on above: Performed By: #### T HYDS #### ERICA Tam ([id number]) [facility] ([facility]) [address] [place] [address] 42102 Chloride [Moles/Vol] 103 mmol/L Normal 98-107 [facility] Comment on above: Performed By: #### T HYDS #### ERICA Tam ([id number]) [facility] ([facility]) [address] [place] [address] CO2 [Moles/Vol] 26 mmol/L Normal 21-32 [facility] Comment on above: Performed By: #### T HYDS #### ERICA Tam ([id number]) [facility] ([facility]) [address] [place] [address] Creatinine [Mass/Vol] 1.58 mg/dL High 0.50-1.30 [facility] Comment on above: Performed By: #### T HYDS #### ERICA Tam ([id number]) [facility] ([facility]) [address] [place] [address] Glomerular filtration rate/1.73 sq M.predicted 47 mL/min/1.73m*2 Low >60 [facility] [place] Comment on above: Result Comment: Calc ulations of estimated GFR are performed using the 2020 CKD-EPI Study Refit equation without the race variable for the IDMS-Traceable creatinine methods. https://jasn.asnjournals.org/content/early/ASN.80977 61580 Performed By: #### T HYDS #### ERICA Tam ([id number]) [facility] ([facility]) [address] [place] [address] Glucose [Mass/Vol] 220 mg/dL High 74-99 [facility] Comment on above: Performed By: #### T HYDS #### ERICA Tam ([id number]) [facility] ([facility]) [address] [place] [address] Phosphate [Mass/Vol] 2.8 mg/dL Normal 2.5-4.9 [facility] Comment on above: Result Comment: The performance characteristics of phosphorus testing in heparinized plasma have been validated by the individual laboratory site where testing is performed. Testing on heparinized plasma is not approved by the FDA; however, such approval is not necessary. Performed By: #### T HYDS #### ERICA Tam ([id number]) [facility] ([facility]) [address] [place] [address] 01063 Potassium [Moles/Vol] 4.1 mmol/L Normal 3.5-5.3 [facility] Comment on above: Performed By: #### T HYDS #### ERICA Tam ([id number]) [facility] ([facility]) [address] [place] [address] 42747 Sodium [Moles/Vol] 137 mmol/L Normal 136-145 [facility] Comment on above: Performed By: #### T HYDS #### ERICA Tam ([id number]) [facility] ([facility]) [address] [place] [address] 74855 Urea nitrogen [Mass/Vol] 25 mg/dL High 6-23 [facility] [place] Comment on above: Performed By: #### T HYDS #### ERICA Tam ([id number]) [facility] ([facility]) [address] [place] [address] 39330 CBC panel Auto (Bld)on 10-16 Erythrocyte distribution width (RBC) [Ratio] 14.5 % Normal 11.5-14.5 [facility] [place] Comment on above: Performed By: #### 2 4323-8 #### ERICA Tam ([id number]) [facility] ([facility]) [address] [place] [address] 59513 Hematocrit (Bld) [Volume fraction] 35.2 % Low 41.0-52.0 [facility] [place] Comment on above: Performed By: #### 2 4323-8 #### ERICA Tam (85856) [facility] ([facility]) [address] [place] [address] 75020 Hemoglobin (Bld) [Mass/Vol] 11.1 g/dL Low 13.5-17.5 [facility] [place] Comment on above: Performed By: #### 2 4323-8 #### ERICA Tam ([id number]) [facility] ([facility]) [address] [place] [address] 34237 MCH (RBC) [Entitic mass] 29.1 pg Normal 26.0-34.0 [facility] [place] Comment on above: Performed By: #### 2 4323-8 #### ERICA Tam ([id number]) [facility] ([facility]) [address] [place] [address] 26867 MCHC (RBC) [Mass/Vol] 31.5 g/dL Low 32.0-36.0 [facility] Comment on above: Performed By: #### 2 4323-8 #### ERICA Tam ([id number]) [facility] ([facility]) [address] [place] [address] 86481 MCV (RBC) [Entitic vol] 92 fL Normal 80-100 [facility] [place] Comment on above: Performed By: #### 2 4323-8 #### ERICA Tam ([id number]) [facility] ([facility]) [address] [place] [address] 90438 Nucleated RBC/100 WBC (Bld) [Ratio] 0.0 /100 WBCs Normal 0.0-0.0 [facility] [place] Comment on above: Performed By: #### 2 4323-8 #### ERICA Tam (75592) [facility] ([facility]) [address] [place] [address] 10552 Platelets (Bld) [#/Vol] 316 x10*3/uL Normal 150-450 [facility] [place] Comment on above: Performed By: #### 2 4323-8 #### ERICA Tam ([id number]) [facility] ([facility]) [address] [place] [address] 26592 RBC (Bld) [#/Vol] 3.82 x10*6/uL Low 4.50-5.90 [facility] Comment on above: Performed By: #### 2 4323-8 #### ERICA Tam ([id number]) [facility] ([facility]) [address] [place] [address] 26531 WBC (Bld) [#/Vol] 8.6 x10*3/uL Normal 4.4-11.3 [facility] Comment on above: Performed By: #### 2 4323-8 #### ERICA Tam (86392) [facility] ([facility]) [address] [place] [address] 86362 Glucose Test strip manual (B ld) [Mass/Vol]on 10-17-2023 Glucose [Mass/Vol] 217 mg/dL High [address] [place] [address] Comment on above: Performed By: #### L IPIN #### ERICA Tam ([id number]) [facility] ([facility]) [address] [place] [address] 48549 Glucose [Mass/Vol] 271 mg/dL High [address] [place] [address] Comment on above: Performed By: #### 2 4323-8 #### ERICA Tam ([id number]) [facility] ([facility]) [address] [place] [address] 79219 Glucose [Mass/Vol] 189 mg/dL High [address] [place] [address] Comment on above: Performed By: #### 2 4323-8 #### ERICA Tam ([id number]) [facility] ([facility]) [address] [place] [address] 08490 Glucose [Mass/Vol] 256 mg/dL High [address] [place] [address] Comment on above: Performed By: #### 2 4323-8 #### ERICA Tam (65729) [facility] ([facility]) [address] [place] [address] 40186 Glucose [Mass/Vol] 176 mg/dL High [address] [place] [address] Comment on above: Performed By: #### 1 4979-9 #### ERICA Tam (13990) [facility] ([facility]) [address] [place] [address] 04094 Heparin.unfractionatedon Heparin unfractionated Chromogenic method Qn (PPP) 0.3 IU/mL Normal See Comment Below for Therapeutic Ranges [facility] [place] Comment on above: Order Comment: Obtai n [...] to local Pharmacy and the [facility] Guidelines for Anticoagulation Therapy available on the [facility] intranet at: [email or web address] Performed By: #### 2 4323-8 #### ERICA Tam ([id number]) [facility] ([facility]) [address] [place] [address] Heparin unfractionated Chromogenic method Qn (PPP) 0.5 IU/mL Normal See Comment Below for Therapeutic Ranges [facility] [place] Comment on above: Order Comment: Obtai n [...] to local Pharmacy and the [facility] Guidelines for Anticoagulation Therapy available on the [facility] intranet at: [email or web address] Performed By: #### 2 4323-8 #### ERICA Tam ([id number]) [facility] ([facility]) [address] [place] [address] 27788 Heparin unfractionated Chromogenic method Qn (PPP) 0.2 IU/mL Normal See Comment Below for Therapeutic Ranges [facility] Comment on above: Order Comment: Prior to initiating heparin if not obtained in prior 48 hours. Nursing to release order. The APTT is no longer used for monitoring Unfractionated Heparin Therapy. For monitoring Heparin Therapy, use the Heparin Assay. Performed By: #### 1 4979-9 #### ERICA Tam (12259) [facility] ([facility]) [id number] [place] [address] 81211 Magnesiumon 10-17-2023 Magnesium [Mass/Vol] 1.94 mg/dL Normal 1.60-2.40 [facility] Comment on above: Performed By: #### L IPIN #### ERICA Tam ([id number]) [facility] ([facility]) [address] [place] [address] 72366 Renal function 2000 panelon 10-17-2023 Albumin BCP dye [Mass/Vol] 3.1 g/dL Low 3.4-5.0 [facility] [place] Comment on above: Performed By: #### L IPIN #### ERICA Tam ([id number]) [facility] ([facility]) [address] [place] [address] 19562 Anion gap [Moles/Vol] 9 mmol/L Low 10-20 [facility] Comment on above: Performed By: #### L IPIN #### ERICA Tam ([id number]) [facility] ([facility]) [address] [place] [address] 48522 Calcium [Mass/Vol] 8.2 mg/dL Low 8.6-10.6 [facility] Comment on above: Performed By: #### L IPIN #### ERICA Tam ([id number]) [facility] ([facility]) [id number] [place] [address] 59680 Chloride [Moles/Vol] 104 mmol/L Normal 98-107 [facility] Comment on above: Performed By: #### L IPIN #### ERICA Tam ([id number]) [facility] ([facility]) [address] [place] [address] 00769 CO2 [Moles/Vol] 28 mmol/L Normal 21-32 [facility] Comment on above: Performed By: #### L IPIN #### ERICA Tam ([id number]) [facility] ([facility]) [address] [place] [address] 30763 Creatinine [Mass/Vol] 1.35 mg/dL High 0.50-1.30 [facility] Comment on above: Performed By: #### L IPIN #### ERICA Tam ([id number]) [facility] ([facility]) [id number] [place] [address] 04500 Glomerular filtration rate/1.73 sq M.predicted 57 mL/min/1.73m*2 Low >60 [facility] Comment on above: Result Comment: Calc ulations of estimated GFR are performed using the 2020 CKD-EPI Study Refit equation without the race variable for the IDMS-Traceable creatinine methods. https://jasn.asnjournals.org/content/early/ASN.02248 99536 Performed By: #### L IPIN #### ERICA Tam ([id number]) [facility] ([facility]) [address] [place] [address] 92909 Glucose [Mass/Vol] 274 mg/dL High 74-99 [facility] Comment on above: Performed By: #### L IPIN #### ERICA Tam ([id number]) [facility] ([facility]) [address] [place] [address] 19067 Phosphate [Mass/Vol] 2.5 mg/dL Normal 2.5-4.9 [facility] Comment on above: Result Comment: The performance characteristics of phosphorus testing in heparinized plasma have been validated by the individual laboratory site where testing is performed. Testing on heparinized plasma is not approved by the FDA; however, such approval is not necessary. Performed By: #### L IPIN #### ERICA Tam ([id number]) [facility] ([facility]) [address] [place] [address] Potassium [Moles/Vol] 4.3 mmol/L Normal 3.5-5.3 [facility] Comment on above: Performed By: #### L IPIN #### ERICA Tam ([id number]) [facility] ([facility]) [address] [place] [address] 71375 Sodium [Moles/Vol] 137 mmol/L Normal 136-145 [facility] Comment on above: Performed By: #### L IPIN #### ERICA Tam ([id number]) [facility] ([facility]) [address] [place] [address] 15048 Urea nitrogen [Mass/Vol] 27 mg/dL High 6-23 [facility] Comment on above: Performed By: #### L IPIN #### ERICA Tam ([id number]) [facility] ([facility]) [address] [place] [address] 15121 [facility] US ANKLE BRACHIAL INDEX (LUCIO) WITHOUT EXERCISEon 10-17-2023 [facility] US ANKLE BRACHIAL INDEX (LUCIO) WITHOUT EXERCISE [address] [address] and Vascular Lab Report [facility] US ANKLE BRACHIAL INDEX (LUCIO) WITHOUT EXERCISE Patient Name: ITALIA Alfaro Physician: [id number] Marshal Nolan MD Study Date: 10/17/2023 Ordering [id number] RU Mina Physician: CUATE MRN/PID: [id number] Technologist: Sandy Smith [facility] Technologist 2: Date of /Age: 5 1955 years Gender: M Admission Status: Inpatient Location [facility] Performed: Diagnosis/ICD: Peripheral vascular disease, unspecified-I73.9 CPT Codes: 71957 Peripheral artery LUCIO Only CONCLUSIONS: Right Lower [...] Left Brachial Pressure 155 mmHg 149 mmHg [id number] Nolan MD Final Normal [facility] US CAROTID ARTERY DUPLE X BILATERALon 10-17-2023 VAS US CAROTID ARTERY DUPLEX BILATERAL [place] [address] and Vascular Lab Report [facility] US CAROTID ARTERY DUPLEX BILATERAL Patient Name: ITALIA Alfaro Physician: Myriam Nolan MD Study Date: 10/17/2023 Ordering [id number] RU Mina Physician: CUATE MRN/PID: [id number] Technologist: Gallito HARTMANN Technologist 2: Date of /Age: 5 1955 years Gender: M Admission Status: Inpatient Location [facility] Performed: Diagnosis/ICD: Encounter for preprocedural cardiovascular examination-Z01.810 Indication: Pre-Op CABG CPT Codes: 44063 Cerebrovascular Carotid Duplex scan complete Patient History [...] cm/s Right Left ICA/CCA Ratio 0.0 1.3 [id number] Nolan MD Final [facility] US LOWER EXTREMITY VEIN MAPPING BILATERALon 10-17-2023 [facility] US LOWER EXTREMITY VEIN MAPPING BILATERAL [place] [address] and Vascular Lab Report [facility] US LOWER EXTREMITY VEIN MAPPING BILATERAL Patient Name: ITALIA ALLEN Angelina Physician: [id number] Nolan MD Study Date: 10/17/2023 Ordering [id number] RU Mina Physician: CUATE MRN/PID: [id number] Technologist: Gallito Marie [facility] Technologist 2: Date of /Age: 5 1955 years Gender: M Admission Status: Inpatient Location [facility] Performed: Diagnosis/ICD: Encounter for preprocedural cardiovascular examination-Z01.810 Indication: Pre-operative exam CPT Codes: 78504 Vein mapping complete Patient History CAD. CONCLUSIONS: [...] Dist Calf GSV Yes None 1.0 mm [id number] Marshal Nolan MD Final Normal [facility] CBC panel Auto (Bld)on 10-15 Erythrocyte distribution width (RBC) [Ratio] 14.4 % Normal 11.5-14.5 [facility] Comment on above: Performed By: #### 1 4979-9 #### ERICA Tam ([id number]) [facility] ([facility]) [address] [place] [address] 42442 Hematocrit (Bld) [Volume fraction] 33.4 % Low 41.0-52.0 [facility] Comment on above: Performed By: #### 1 4979-9 #### ERICA Tam ([id number]) [facility] ([facility]) [address] [place] [address] 11214 Hemoglobin (Bld) [Mass/Vol] 10.5 g/dL Low 13.5-17.5 [facility] Comment on above: Performed By: #### 1 4979-9 #### ERICA Tam ([id number]) [facility] ([facility]) [address] [place] [address] 30990 MCH (RBC) [Entitic mass] 28.5 pg Normal 26.0-34.0 [facility] Comment on above: Performed By: #### 1 4979-9 #### ERICA Tam ([id number]) [facility] ([facility]) [address] [place] [address] MCHC (RBC) [Mass/Vol] 31.4 g/dL Low 32.0-36.0 [facility] Comment on above: Performed By: #### 1 4979-9 #### ERICA Tam ([id number]) [facility] ([facility]) [address] [place] [address] 42025 MCV (RBC) [Entitic vol] 91 fL Normal 80-100 [facility] Comment on above: Performed By: #### 1 4979-9 #### ERICA Tam ([id number]) [facility] ([facility]) [address] [place] [address] 34070 Nucleated RBC/100 WBC (Bld) [Ratio] 0.0 /100 WBCs Normal 0.0-0.0 [facility] Comment on above: Performed By: #### 1 4979-9 #### ERICA Tam ([id number]) [facility] ([facility]) [address] [place] [address] 24686 Platelets (Bld) [#/Vol] 283 x10*3/uL Normal 150-450 [facility] Comment on above: Performed By: #### 1 4979-9 #### ERICA MCDONALD L ([id number]) [facility] ([facility]) [address] [place] [address] 30093 RBC (Bld) [#/Vol] 3.69 x10*6/uL Low 4.50-5.90 [facility] Comment on above: Performed By: #### 1 4979-9 #### ERICA MCDONALD L ([id number]) [facility] ([facility]) [address] [place] [address] 40001 WBC (Bld) [#/Vol] 8.2 x10*3/uL Normal 4.4-11.3 [facility] Comment on above: Performed By: #### 1 4979-9 #### ERICA Tam ([id number]) [facility] ([facility]) [address] [place] [address] 13532 Erythrocyte distribution width (RBC) [Ratio] 14.6 % High 11.5-14.5 [facility] Comment on above: Performed By: #### 5 8410-2 #### ERICA Tam ([id number]) [facility] ([facility]) [address] [place] [address] 32888 Hematocrit (Bld) [Volume fraction] 35.2 % Low 41.0-52.0 [facility] Comment on above: Performed By: #### 5 8410-2 #### ERICA Tam (53684) [facility] ([facility]) [address] [place] [address] 10928 Hemoglobin (Bld) [Mass/Vol] 11.4 g/dL Low 13.5-17.5 [facility] Comment on above: Performed By: #### 5 8410-2 #### ERICA Tam ([id number]) [facility] ([facility]) [address] [place] [address] 45057 MCH (RBC) [Entitic mass] 29.3 pg Normal 26.0-34.0 [facility] Comment on above: Performed By: #### 5 8410-2 #### ERICA Tam ([id number]) [facility] ([facility]) [address] [place] [address] 28517 MCHC (RBC) [Mass/Vol] 32.4 g/dL Normal 32.0-36.0 [facility] Comment on above: Performed By: #### 5 8410-2 #### ERICA Tam ([id number]) [facility] ([facility]) [address] [place] [address] 17314 MCV (RBC) [Entitic vol] 91 fL Normal 80-100 [facility] Comment on above: Performed By: #### 5 8410-2 #### ERICA Tam ([id number]) [facility] ([facility]) [address] [place] [address] 62011 Nucleated RBC/100 WBC (Bld) [Ratio] 0.0 /100 WBCs Normal 0.0-0.0 [facility] Comment on above: Performed By: #### 5 8410-2 #### ERICA Tam ([id number]) [facility] ([facility]) [address] [place] [address] 14078 Platelets (Bld) [#/Vol] 285 x10*3/uL Normal 150-450 [facility] Comment on above: Performed By: #### 5 8410-2 #### ERICA Tam ([id number]) [facility] ([facility]) [address] [place] [address] 94999 RBC (Bld) [#/Vol] 3.89 x10*6/uL Low 4.50-5.90 [facility] Comment on above: Performed By: #### 5 8410-2 #### ERICA Tam ([id number]) [facility] ([facility]) [address] [place] [address] 40988 WBC (Bld) [#/Vol] 9.3 x10*3/uL Normal 4.4-11.3 [facility] Comment on above: Performed By: #### 5 8410-2 #### ERICA Tam ([id number]) [facility] ([facility]) [address] [place] [address] 36722 Coagulation surface inducedo n 10-16-2023 aPTT Coag (PPP) [Time] 30 s Normal 27-38 [facility] Comment on above: Order Comment: Prior to initiating heparin if not obtained in prior 48 hours. Nursing to release order. The APTT is no longer used for monitoring Unfractionated Heparin Therapy. For monitoring Heparin Therapy, use the Heparin Assay. Performed By: #### 1 4979-9 #### ERICA Tam ([id number]) [facility] ([facility]) [address] [place] [address] 30079 Coagulation tissue factor in ducedon 10-16-2023 PT Coag (PPP) [Time] 12.5 s Normal 9.8-12.8 [facility] Comment on above: Order Comment: If val monroe has not had PT + INR in the last 24 hours. Nursing to release order. Performed By: #### 5 902-2 #### ERICA Tam ([id number]) [facility] ([facility]) [address] [place] [address] 41125 Cobalaminson 10-16-2023 Cobalamin (Vitamin B12) [Mass/Vol] 201 pg/mL Low 211-911 [facility] Comment on above: Performed By: #### 5 902-2 #### ERICA Tam ([id number]) [facility] ([facility]) [address] [place] [address] 39858 Comprehensive metabolic 2000 panelon 10-16-2023 Albumin BCP dye [Mass/Vol] 3.3 g/dL Low 3.4-5.0 [facility] Comment on above: Performed By: #### 2 4323-8 #### ERICA Tam ([id number]) [facility] ([facility]) [address] [place] [address] 96365 ALP [Catalytic activity/Vol] 58 U/L Normal 33-136 [facility] Comment on above: Performed By: #### 2 4323-8 #### ERICA Tam ([id number]) [facility] ([facility]) [address] [place] [address] 81907 ALT With P-5'-P [Catalytic activity/Vol] 15 U/L Normal 10-52 [facility] Comment on above: Result Comment: Criselda ents treated with Sulfasalazine may generate falsely decreased results for ALT. Performed By: #### 2 4323-8 #### ERICA Tam ([id number]) [facility] ([facility]) [address] [place] [address] Anion gap [Moles/Vol] 13 mmol/L Normal 10-20 [facility] Comment on above: Performed By: #### 2 4323-8 #### ERICA Tam ([id number]) [facility] ([facility]) [address] [place] [address] 21131 AST With P-5'-P [Catalytic activity/Vol] 14 U/L Normal 9-39 [facility] Comment on above: Result Comment: MILD HEMOLYSIS DETECTED. The result may be falsely elevated due to hemolysis or other interferents. Clinical correlation is recommended. Repeat testing may be considered. Performed By: #### 2 4323-8 #### ERICA Tam ([id number]) [facility] ([facility]) [address] [place] [address] 17164 Bilirubin [Mass/Vol] 0.4 mg/dL Normal 0.0-1.2 [facility] Comment on above: Performed By: #### 2 4323-8 #### ERICA MCDONALD L ([id number]) [facility] ([facility]) [address] [place] [address] 58075 Calcium [Mass/Vol] 8.3 mg/dL Low 8.6-10.6 [facility] Comment on above: Performed By: #### 2 4323-8 #### ERICA MCDONALD L ([id number]) [facility] ([facility]) [address] [place] [address] 98892 Chloride [Moles/Vol] 102 mmol/L Normal 98-107 [facility] Comment on above: Performed By: #### 2 4323-8 #### ERICA RESTREPOMOTZER L ([id number]) [facility] ([facility]) [address] [place] [address] 40390 CO2 [Moles/Vol] 26 mmol/L Normal 21-32 [facility] Comment on above: Performed By: #### 2 4323-8 #### ERICA MCDONALD L ([id number]) [facility] ([facility]) [address] [place] [address] 50290 Creatinine [Mass/Vol] 1.64 mg/dL High 0.50-1.30 [facility] Comment on above: Performed By: #### 2 4323-8 #### ERICA RESTREPOMOTZLUZ L (33641) [facility] ([facility]) [address] [place] [address] Glomerular filtration rate/1.73 sq M.predicted 45 mL/min/1.73m*2 Low >60 [facility] Comment on above: Result Comment: Calc ulations of estimated GFR are performed using the 2020 CKD-EPI Study Refit equation without the race variable for the IDMS-Traceable creatinine methods. https://jasn.asnjournals.org/content//ASN.22409 88188 Performed By: #### 2 4323-8 #### ERICA Tam ([id number]) [facility] ([facility]) [address] [place] [address] 02494 Glucose [Mass/Vol] 173 mg/dL High 74-99 [facility] Comment on above: Performed By: #### 2 4323-8 #### ERICA MCDONALD L ([id number]) [facility] ([facility]) [address] [place] [address] 99004 Potassium [Moles/Vol] 4.3 mmol/L Normal 3.5-5.3 [facility] Comment on above: Result Comment: MILD HEMOLYSIS DETECTED. The result may be falsely elevated due to hemolysis or other interferents. Clinical correlation is recommended. Repeat testing may be considered. Performed By: #### 2 4323-8 #### ERICA MCDONALD L ([id number]) [facility] ([facility]) [address] [place] [address] 08400 Protein [Mass/Vol] 5.6 g/dL Low 6.4-8.2 [facility] Comment on above: Performed By: #### 2 4323-8 #### ERICA RESTREPOMOTZER L (54976) [facility] ([facility]) [address] [place] [address] 72578 Sodium [Moles/Vol] 137 mmol/L Normal 136-145 [facility] Comment on above: Performed By: #### 2 4323-8 #### ERICA RESTREPOMOTZER L ([id number]) [facility] ([facility]) [address] [place] [address] 11319 Urea nitrogen [Mass/Vol] 33 mg/dL High 6-23 [facility] Comment on above: Performed By: #### 2 4323-8 #### ERICA Tam ([id number]) [facility] ([facility]) [address] [place] [address] 74880 ECG 12-LEADon 10-16-2023 ECG 12-LEAD Ventricular Rate 85 Atrial Rate 85 P-R Interval 196 QRS Duration 100 Q-T Interval 392 QTC Calculation(Bazett) 466 P Ames 40 R Ames 54 T Ames 51 QRS Count 14 Q Onset 222 P Onset 124 P Offset 185 T Offset 418 QTC Fredericia 440 Diagnosis Normal sinus rhythm Prolonged QT Abnormal ECG No previous ECGs available Confirmed by Mark Kennedy ([id number]) on 10/16/2023 5:14:12 PM Normal [facility] Ferritinon 10-16-2023 Ferritin [Mass/Vol] 184 ng/mL Normal 20-300 [facility] Comment on above: Performed By: #### 5 902-2 #### ERICA Tam ([id number]) [facility] ([facility]) [address] [place] [address] 94525 Folateon 10-16-2023 Folate [Mass/Vol] 10.0 ng/mL Normal >5.0 [facility] Comment on above: Order Comment: If val monroe has not had PT + INR in the last 24 hours. Nursing to release order. Performed By: #### 5 902-2 #### ERICA Tam ([id number]) [facility] ([facility]) [address] [place] [address] 49164 Gas and Carbon monoxide pane l (BldA)on 10-16-2023 Base excess Calc (Bld) [Moles/Vol] -0.5000 mmol/L Normal -2.0-3.0 [facility] Comment on above: Performed By: #### 1 4979-9 #### ERICA Tam ([id number]) [facility] ([facility]) [address] [place] [address] 78016 Carboxyhemoglobin (BldA) [Mass fraction] 3.1 % Normal [facility] Comment on above: Result Comment: Ref Values Non-Smokers 0.5-1.5% Smokers 0.5-10.0% Performed By: #### 1 4979-9 #### ERICA Tam ([id number]) [facility] ([facility]) [address] [place] [address] 37961 CO2 (Bld) [Partial pressure] 39 mm Hg Normal 38-42 [facility] Comment on above: Performed By: #### 1 4979-9 #### ERICA Tam ([id number]) [facility] ([facility]) [address] [place] [address] 52688 Deoxyhemoglobin (BldA) [Mass fraction] 4.8 % Normal 0.0-5.0 [facility] Comment on above: Performed By: #### 1 4979-9 #### ERICA Tam (76034) [facility] ([facility]) [address] [place] [address] 88675 HCO3 (Bld) [Moles/Vol] 24.2 mmol/L Normal 22.0-26.0 [facility] Comment on above: Performed By: #### 1 4979-9 #### ERICA Tam ([id number]) [facility] ([facility]) [address] [place] [address] 41169 Hemoglobin (Bld) [Mass/Vol] 11.3 g/dL Low 13.5-17.5 [facility] Comment on above: Performed By: #### 1 4979-9 #### ERICA Tam (27333) [facility] ([facility]) [address] [place] [address] 22885 Methemoglobin (BldA) [Mass fraction] 0.0 % Normal 0.0-1.5 [facility] Comment on above: Performed By: #### 1 4979-9 #### ERICA Tam (66032) [facility] ([facility]) [address] [place] [address] 41966 Oxygen (Bld) [Partial pressure] 67 mm Hg Low 85-95 [facility] Comment on above: Performed By: #### 1 4979-9 #### ERICA Tam ([id number]) [facility] ([facility]) [address] [place] [address] 86128 Oxyhemoglobin (BldA) [Mass fraction] 92.2 % Low 94.0-98.0 [facility] Comment on above: Performed By: #### 1 4979-9 #### ERICA Tam ([id number]) [facility] ([facility]) [address] [place] [address] 27203 pH (Bld) 7.40 [pH] Normal 7.38-7.42 [facility] Comment on above: Performed By: #### 1 4979-9 #### ERICA Tam ([id number]) [facility] ([facility]) [address] [place] [address] 76857 Glucose Test strip manual (B ld) [Mass/Vol]on 10-16-2023 Glucose [Mass/Vol] 151 mg/dL High 74-99 [facility] Comment on above: Performed By: #### 1 4979-9 #### ERICA Tam ([id number]) [facility] ([facility]) [address] [place] [address] 37009 Glucose [Mass/Vol] 261 mg/dL High [address] [place] [address] Comment on above: Performed By: #### 1 4979-9 #### ERICA Tam ([id number]) [facility] ([facility]) [address] [place] [address] 09332 Glucose [Mass/Vol] 170 mg/dL High -[address] [place] [address] Comment on above: Performed By: #### 5 902-2 #### ERICA Tam (42259) [facility] ([facility]) [address] [place] [address] 68802 HbA1c (Bld) [Mass fraction]o n 10-16-2023 Average glucose Estimated from glycated hemoglobin (Bld) [Mass/Vol] 148 mg/dL Normal Not Established [facility] Comment on above: Order Comment: If val monroe has not had PT + INR in the last 24 hours. Nursing to release order. Performed By: #### 5 902-2 #### ERICA Tam ([id number]) [facility] ([facility]) [address] [place], [place] [address] Hemoglobin A1c/Hemoglobin.to guero 10-16-2023 HbA1c (Bld) [Mass fraction] 6.8 % High see below [facility] Comment on above: Order Comment: If val monroe has not had PT + INR in the last 24 hours. Nursing to release order. Performed By: #### 5 902-2 #### ERICA Tam ([id number]) [facility] ([facility]) [address] [place], [place] [address] Heparin.unfractionatedon Heparin unfractionated Chromogenic method Qn (PPP) 0.3 IU/mL Normal See Comment Below for Therapeutic Ranges [facility] Comment on above: Order Comment: Prior to initiating heparin if not obtained in prior 48 hours. Nursing to release order. The APTT is no longer used for monitoring Unfractionated Heparin Therapy. For monitoring Heparin Therapy, use the Heparin Assay. Performed By: #### 1 4979-9 #### ERICA Tam ([id number]) [facility] ([facility]) [address] [place] [address] Heparin unfractionated Chromogenic method Qn (PPP) 0.2 IU/mL Normal See Comment Below for Therapeutic Ranges [facility] Comment on above: Order Comment: Prior to initiating heparin if not obtained in prior 48 hours. Nursing to release order. The APTT is no longer used for monitoring Unfractionated Heparin Therapy. For monitoring Heparin Therapy, use the Heparin Assay. Performed By: #### 1 4979-9 #### ERICA Tam ([id number]) [facility] ([facility]) [address] [place], [place] [address] Heparin unfractionated Chromogenic method Qn (PPP) 0.1 IU/mL Normal See Comment Below for Therapeutic Ranges [facility] Comment on above: Order Comment: If val monroe has not had PT + INR in the last 24 hours. Nursing to release order. Performed By: #### 5 902-2 #### ERICA Tam ([id number]) [facility] ([facility]) [address] [place] [address] 60620 Heparin unfractionated Chromogenic method Qn (PPP) 0.1 IU/mL Normal See Comment Below for Therapeutic Ranges [facility] Comment on above: Order Comment: Obtai n [...] to local Pharmacy and the [facility] Guidelines for Anticoagulation Therapy available on the [facility] intranet at: [email or web address]_ [email or web address]_for_[email or web address] Performed By: #### 3 274-8 #### ERICA Tam ([id number]) [facility] ([facility]) [address] [place] [address] 41322 Iron and Iron binding capaci ty panelon 10-16-2023 Iron [Mass/Vol] 33 ug/dL Low 35-150 [facility] Comment on above: Result Comment: MILD HEMOLYSIS DETECTED. The result may be falsely elevated due to hemolysis or other interferents. Clinical correlation is recommended. Repeat testing may be considered. Performed By: #### 5 902-2 #### ERICA Tam ([id number]) [facility] ([facility]) [address] [place] [address] Iron binding capacity [Mass/Vol] 285 ug/dL Normal 240-445 [facility] Comment on above: Performed By: #### 5 902-2 #### ERICA Tam ([id number]) [facility] ([facility]) [address] [place] [address] Iron binding capacity.unsaturated [Mass/Vol] 252 ug/dL Normal 110-370 [facility] Comment on above: Performed By: #### 5 902-2 #### ERICA Tam ([id number]) [facility] ([facility]) [address] [place] [address] Iron saturation [Mass fraction] 12 % Low 25-45 [facility] Comment on above: Performed By: #### 5 902-2 #### ERICA Tam ([id number]) [facility] ([facility] [facility] [id number] [place] [address] 65980 LIPID PANEL NON-FASTINGon Cholesterol [Mass/Vol] 114 mg/dL Normal 0-199 Un [facility] Comment on above: Result Comment: Age [...] By: #### L IPIN #### ERICA Tam ([id number]) [facility] ([facility]) [id number] [place] [address] 70978 Cholesterol in HDL [Mass/Vol] 25.8 mg/dL Normal [facility] Comment on above: Result Comment: Age Very Low Low Normal High 0-19 Y < 35 < 40 40-45 ---- 20-24 Y ---- < 40 >45 ---- >24 Y ---- < 40 40-60 >60 Performed By: #### L IPIN #### ERICA Tam ([id number]) [facility] ([facility]) [address] [place] [address] 46741 CHOLESTEROL/HDL RATIO 4.4 Normal [facility] Comment on above: Result Comment: Ref Values Desirable < 3.4 High Risk > 5.0 Performed By: #### L IPIN #### ERICA Tam ([id number]) [facility] ([facility]) [id number] [place] [address] 75383 NON-HDL CHOLESTEROL 88 mg/dL Normal 0-149 [facility] Comment on above: Result Comment: Age Desiable Borderline High High Very High 0-19 Y 0 - 119 120 - 144 >/= 145 >/= 160 20-24 Y 0 - 149 150 - 189 >/= 190 ---- >24 Y 30 MG/DL ABOVE LDL CHOLESTEROL GOAL Performed By: #### L IPIN #### ERICA Tam ([id number]) [facility] ([facility]) [address] [place] [address] 43174 Magnesiumon 10-16-2023 Magnesium [Mass/Vol] 1.84 mg/dL Normal 1.60-2.40 [facility] Comment on above: Performed By: #### 1 4979-9 #### ERICA Tam ([id number]) [facility] ([facility]) [address] [place] [address] 99556 Natriuretic peptide B [Mass/ Vol]on 10-16-2023 Natriuretic peptide B (Bld) [Mass/Vol] 88 pg/mL Normal 0-99 [facility] Comment on above: Order Comment: If val monroe has not had PT + INR in the last 24 hours. Nursing to release order. Performed By: #### 5 902-2 #### ERICA Tam ([id number]) [facility] ([facility]) [address] [place] [address] 51064 PT Coag (PPP) [Time]on 10-15 INR Coag (PPP) [Relative time] 1.1 Normal 0.9-1.1 [facility] Comment on above: Order Comment: If val monroe has not had PT + INR in the last 24 hours. Nursing to release order. Performed By: #### 5 902-2 #### ERICA Tam ([id number]) [facility] ([facility]) [address] [place] [address] 97669 Platelets Auto (Bld) [#/Vol] on 10-16-2023 Platelets (Bld) [#/Vol] 276 x10*3/uL Normal 150-450 [facility] Comment on above: Order Comment: Basel ine platelet count before any heparin given. May discontinue if platelet count already obtained today, or if heparin already administered. Performed By: #### 7 77-3 #### ERICA Tam ([id number]) [facility] ([facility]) [id number] [place] [address] 93305 Renal function 2000 panelon 10-16-2023 Albumin BCP dye [Mass/Vol] 3.1 g/dL Low 3.4-5.0 [facility] Comment on above: Performed By: #### 1 4979-9 #### ERICA Tam ([id number]) [facility] ([facility]) [address] [place] [address] 43361 Anion gap [Moles/Vol] 15 mmol/L Normal 10-20 [facility] Comment on above: Performed By: #### 1 4979-9 #### ERICA MCDONALD L ([id number]) [facility] ([facility]) [address] [place] [address] 70961 Calcium [Mass/Vol] 8.2 mg/dL Low 8.6-10.6 [facility] Comment on above: Performed By: #### 1 4979-9 #### ERICA MCDONALD L ([id number]) [facility] ([facility]) [id number] [place] [address] 82398 Chloride [Moles/Vol] 103 mmol/L Normal 98-107 [facility] Comment on above: Performed By: #### 1 4979-9 #### ERICA RESTREPOMOMARLENY L ([id number]) [facility] ([facility]) [address] [place] [address] 66175 CO2 [Moles/Vol] 24 mmol/L Normal 21-32 [facility] Comment on above: Performed By: #### 1 4979-9 #### ERICA MCDONALD L ([id number]) [facility] ([facility]) [id number] [place] [address] 19968 Creatinine [Mass/Vol] 1.52 mg/dL High 0.50-1.30 [facility] Comment on above: Performed By: #### 1 4979-9 #### ERICA Tam ([id number]) [facility] ([facility]) [address] [place] [address] Glomerular filtration rate/1.73 sq M.predicted 49 mL/min/1.73m*2 Low >60 [facility] Comment on above: Result Comment: Calc ulations of estimated GFR are performed using the 2020 CKD-EPI Study Refit equation without the race variable for the IDMS-Traceable creatinine methods. https://jasn.asnjournals.org/content/early//ASN.90042 11547 Performed By: #### 1 4979-9 #### ERICA Tam ([id number]) [facility] ([facility]) [address] [place] [address] 28446 Glucose [Mass/Vol] 229 mg/dL High 74-99 [facility] Comment on above: Performed By: #### 1 4979-9 #### ERICA Tam ([id number]) [facility] ([facility]) [address] [place] [address] 45255 Phosphate [Mass/Vol] 3.1 mg/dL Normal 2.5-4.9 [facility] Comment on above: Result Comment: The performance characteristics of phosphorus testing in heparinized plasma have been validated by the individual laboratory site where testing is performed. Testing on heparinized plasma is not approved by the FDA; however, such approval is not necessary. Performed By: #### 1 4979-9 #### ERICA Tam ([id number]) [facility] ([facility]) [address] [place] [address] Potassium [Moles/Vol] 4.1 mmol/L Normal 3.5-5.3 [facility] Comment on above: Performed By: #### 1 4979-9 #### ERICA Tam ([id number]) [facility] ([facility]) [address] [place] [address] Sodium [Moles/Vol] 138 mmol/L Normal 136-145 [facility] Comment on above: Performed By: #### 1 4979-9 #### ERICA Tam ([id number]) [facility] ([facility]) [address] [place] [address] Urea nitrogen [Mass/Vol] 32 mg/dL High 6-23 [facility] Comment on above: Performed By: #### 1 4979-9 #### ERICA Tam ([id number]) [facility] ([facility]) [address] [place] [address] Staphylococcus aureus.methic illin resistant isolateon 10-16-2023 MRSA isol Org specific cx Ql (Nose) Test: Staphylococcus aureus/MRSA colonization, Culture Specimen Source: Anterior Nares Specimen Type: Swab Specimen Date: 10/16/2023 1023 Result Date: 10/17/2023 1257 Result Status: Final result Abnormal: No Resulting Lab: [facility] [address] [place] [address] CULTURE No Staphylococcus aureus isolated Normal [facility] Comment on above: Performed By: #### 2 4323-8 #### ERICA Tam ([id number]) [facility] ([facility]) [address] [place] [address] TSH WITH REFLEX TO FREE T4 I F ABNORMALon 10-16-2023 TSH Qn 6.30 m[IU]/L High 0.44-3.98 [facility] Comment on above: Order Comment: TSH t esting is performed using different testing methodology at [facility] than at other [facility]. Direct result comparisons should only be made within the same method. Performed By: #### T HYDS #### ERICA Tam ([id number]) [facility] ([facility]) [address] [place], [place] [id number] Thyroxine.freeon 10-16-2023 Free T4 [Mass/Vol] 1.20 ng/dL Normal 0.78-1.48 [facility] Comment on above: Order Comment: If val monroe has not had PT + INR in the last 24 hours. Nursing to release order. Performed By: #### 5 902-2 #### ERICA Tam ([id number]) [facility] ([facility]) [address] [place] [address] 91028 Troponin I.cardiac panelon 0 10-16-2023 Tropinin I.cardiac panel High sensitivity method 916 ng/L Critically high 0-53 [facility] Comment on above: Order Comment: If val monroe has not had PT + INR in the last 24 hours. Nursing to release order. Performed By: #### 5 902-2 #### ERICA Tam ([id number]) [facility] ([facility]) [address] [place] [address] 80809 Urinalysis complete W Reflex Culture panel (U)on 10-16-2023 Appearance (U) Clear Normal Clear [facility] Comment on above: Performed By: #### 5 8077-9 #### ERICA Tam ([id number]) [facility] ([facility]) [address] [place] [address] 61702 Bilirubin (U) [Mass/Vol] Negative Normal NEGATIVE [facility] Comment on above: Performed By: #### 5 8077-9 #### ERICA Tam ([id number]) [facility] ([facility]) [address] [place] [address] 35689 Color (U) Light-Yellow Normal Light-Yellow , Yellow, Dark-Yellow [facility] Comment on above: Performed By: #### 5 8077-9 #### ERICA MCDONALD L ([id number]) [facility] ([facility]) [address] [place] [address] 77420 Glucose Auto test strip (U) [Mass/Vol] 50 (TRACE) Abnormal Normal [facility] Comment on above: Performed By: #### 5 8077-9 #### ERICA MCDONALD L ([id number]) [facility] ([facility]) [address] [place] [address] 61943 Ketones (U) [Mass/Vol] Negative Normal NEGATIVE [facility] on above: Performed By: #### 5 8077-9 #### ERICA Tam ([id number]) [facility] ([facility]) [address] [place] [address] 93207 Leukocyte esterase Auto test strip Ql (U) Negative Normal NEGATIVE [facility] Comment on above: Performed By: #### 5 8077-9 #### ERICA Tam ([id number]) [facility] ([facility]) [address] [place] [address] 48857 Mucus Auto (Urine sed) [#/Area] FEW Normal Reference range not established. [facility] Comment on above: Performed By: #### 5 8077-9 #### ERICA Tam ([id number]) [facility] ([facility]) [address] [place] [address] 53703 Nitrite Auto test strip Ql (U) Negative Normal NEGATIVE [facility] Comment on above: Performed By: #### 5 8077-9 #### ERICA Tam ([id number]) [facility] ([facility]) [address] [place] [address] 68694 pH (U) 5.0 [pH] Normal 5.0, 5.5, 6.0, 6.5, 7.0, 7.5, 8.0 [facility] Comment on above: Performed By: #### 5 8077-9 #### ERICA Tam ([id number]) [facility] ([facility]) [address] [place] [address] 09739 Protein (U) [Mass/Vol] 10 (TRACE) Normal NEGAT LE, 10 (TRACE), 20 (TRACE) [facility] Comment on above: Performed By: #### 5 8077-9 #### ERICA MCDONALD L ([id number]) [facility] ([facility]) [address] [place] [address] 20913 RBC (U) [#/Vol] Negative Normal NEGATIVE [facility] Comment on above: Performed By: #### 5 8077-9 #### ERICA ARREOLATZER L ([id number]) [facility] ([facility]) [address] [place] [address] RBC Auto (Urine sed) [#/Area] NONE Normal NONE, 1-2, 3-5 [facility] Comment on above: Performed By: #### 5 8077-9 #### ERICA SCHMOTZER L ([id number]) [facility] ([facility]) [address] [place] [address] 03174 Specific gravity (U) [Rel density] 1.026 Normal 1.005-1.035 [facility] Comment on above: Performed By: #### 5 8077-9 #### ERICA SCHMOTZER L ([id number]) [facility] ([facility]) [address] [place] [address] 71082 Urobilinogen (U) [Mass/Vol] Normal Normal Normal [facility] Comment on above: Performed By: #### 5 8077-9 #### ERICA RESTREPOMOTZER L ([id number]) [facility] ([facility]) [address] [place] [address] 76423 WBC Auto (Urine sed) [#/Area] 1-5 Normal 1-5, NONE [facility] Comment on above: Performed By: #### 5 8077-9 #### ERICA SCHMOTZER L ([id number]) [facility] ([facility]) [address] [place] [address] 60569 XR CHEST 2 VIEWSon XR CHEST 2 VIEWS Interpreted By: Rex Lambert, STUDY: XR CHEST 2 VIEWS; 10/16/2023 2:01 pm INDICATION: Signs/Symptoms:CABG evaluation. COMPARISON: None. ACCESSION NUMBER(S): [id number] ORDERING CLINICIAN: CATIA PATTON FINDINGS: CARDIOMEDIASTINAL SILHOUETTE: Cardiomegaly versus pericardial effusion. Right hilar calcifications. LUNGS: Low lung volumes with perihilar bibasilar atelectasis/effusions. ABDOMEN: No remarkable upper abdominal findings. BONES: No acute osseous changes. IMPRESSION: 1. Cardiomegaly with pulmonary edema and correlate with cardiac and fluid status. Signed by: Rex Ballesteros 10/18/2023 7:12 AM Dictation workstation: [id number] [facility] Activated partial thrombopla stin time (aPTT) in platelet poor plasma by coagulation aOrdered By: Ann Plata on 10-15-2023 aPTT Coag (PPP) [Time] 45.5 s High 25.1-36.5 [facility] Comment on above: A hematocrit value g reater than 55% may lead to inaccurate results in coagulation testing. Patients having hematocrit values >55% require a special collection tube for coagulation studies. Please contact the laboratory at [phone] for redraw instructions. Alanine aminotransferase [En zymatic activity/volume] in Serum or PlasmaOrdered By: Alondra Gonzales on 10-15-2023 ALT [Catalytic activity/Vol] 17 U/L Normal 7-52 [facility] Comment on above: Performed By: #### G LULS #### Point of Care testing , Albumin [Mass/volume] in Ser um or Plasma by Bromocresol green (BCG) dye binding methoOrdered By: Alondra Gonzales on 10-15-2023 Albumin BCG dye [Mass/Vol] 3.4 g/dL Low 3.5-5.7 [facility] Alkaline phosphatase [Enzyma tic activity/volume] in Serum or PlasmaOrdered By: Alondra Gonzales on 10-15-2023 ALP [Catalytic activity/Vol] 62 U/L Normal 34-104 [facility] Comment on above: Performed By: #### G LULS #### Point of Care testing , Aspartate aminotransferase [ Enzymatic activity/volume] in Serum or PlasmaOrdered By: Alondra Gonzales on 10-15-2023 AST [Catalytic activity/Vol] 16 U/L Normal 13-39 [facility] Comment on above: Performed By: #### G LULS #### Point of Care testing , Automated basophil %Ordered By: Alondra Gonzales on 10-15-2023 Basophils/100 WBC (Bld) 1.0 % Normal . [facility] Comment on above: Performed By: #### C BC #### [facility] [address] [place] [address] Automated basophil countOrde red By: Alondra Gonzales on 10-15-2023 Basophils (Bld) [#/Vol] 0.1 10*3/uL Normal 0.0-0.2 [facility] Comment on above: Result Comment: PERF ORMED BY: [place] [address] PATHOLOGIST [employer]IP[employer]ACHINE WOLFGANG JOHNSON M.D. Performed By: #### C BC #### [address] Automated blood monocyte cou ntOrdered By: Alondra Gonzales on 10-15-2023 Monocytes (Bld) [#/Vol] 0.9 10*3/uL High 0.0-0.8 [facility] Comment on above: Performed By: #### C BC #### [facility] [address] [place] [address] Automated eosinophil %Ordere d By: Alondra Gonzales on 10-15-2023 Eosinophils/100 WBC (Bld) 3.7 % Normal . [facility] Comment on above: Performed By: #### C BC #### [facility] [address] [place] [address] Automated eosinophil countOr dered By: Alondra Gonzales on 10-15-2023 Eosinophils (Bld) [#/Vol] 0.4 10*3/uL Normal 0.0-0.45 [facility] Comment on above: Performed By: #### C BC #### [address] Automated monocyte %Ordered By: Alondra Gonzales on 10-15-2023 Monocytes/100 WBC (Bld) 9.3 % Normal . [facility] Comment on above: Performed By: #### C BC #### [facility] [address] [place] [address] Automated neutrophil %Ordere d By: Harriettamarakel Gonzales on 10-15-2023 Neutrophils/100 WBC (Bld) 74.1 % Normal . [facility] Comment on above: Performed By: #### C BC #### [facility] [address] [place] [address] Bilirubin.total [Mass/volume ] in Serum or PlasmaOrdered By: Alondra Gonzales on 10-15-2023 Bilirubin [Mass/Vol] 0.4 mg/dL Normal 0.3-1.0 [facility] Comment on above: Performed By: #### G LULS #### Point of Care testing , Calcium [Mass/volume] in Ser um or PlasmaOrdered By: Alondra Gonzales on 10-15-2023 Calcium [Mass/Vol] 8.1 mg/dL Low 8.6-10.3 [facility] Comment on above: Performed By: #### G LULS #### Point of Care testing , Capillary blood glucose jose urement by glucometer (mass/volume)Ordered By: Yovanny Rivera on 10-15-2023 Glucose [Mass/Vol] 277 mg/dL Normal [facility] Comment on above: Random Glucose Refer ence Range is dependent on time and content of last meal. Glucose of more than 200 mg/dL in a nonstressed, ambulatory subject supports the diagnosis of Diabetes Mellitus. Result Comment: [place] Glucose Reference Range is dependent on time and content of last meal. Glucose of more than 200 mg/dL in a nonstressed, ambulatory subject supports the diagnosis of Diabetes Mellitus. PERFORMED BY: [address] [place] [address] PATHOLOGIST [employer]IP[employer] MACHINE WOLFGANG JOHNSON M.D. Performed By: #### C BC, ESR #### [address] Carbon dioxide, total [Moles /volume] in Serum or PlasmaOrdered By: Alondra Gonzales on 10-15-2023 CO2 [Moles/Vol] 28.2 mmol/L Normal 21.0-31.0 [facility] Comment on above: Performed By: #### G LULS #### Point of Care testing , Chloride [Moles/volume] in S teodoro or PlasmaOrdered By: Alondra Gonzales on 10-15-2023 Chloride [Moles/Vol] 104 mmol/L Normal 98-107 [facility] Comment on above: Performed By: #### G LULS #### Point of Care testing , Complete Blood Count Auto Di ffon 10-15-2023 Mean Corpuscular HGB Conc 33.4 g/dL Normal 32.5-35.[address] [facility] Comment on above: Performed By: #### C BC #### [facility] [address] [place] [address] NRBC% 0.1 /100{WBC} Normal 0-0.[address] [facility] Comment on above: Performed By: #### C BC #### [facility] [address] [place] [address] Comprehensive Metabolic Pane laxmi 10-15-2023 Albumin [Mass/Vol] 3.4 g/dL Low 3.5-5.[address] [facility] Comment on above: Performed By: #### G LULS #### Point of Care testing , Creatinine Clr Calc Pharmacy 51.[address] [facility] Comment on above: Performed By: #### G LULS #### Point of Care testing , GFR/1.73 sq M.predicted MDRD (S/P/Bld) [Vol rate/Area] 43.716 mL/min/{1.73_m2} Normal [facility] Comment on above: Performed By: #### G LULS #### Point of Care testing , Creatinine [Mass/volume] in Serum or PlasmaOrdered By: Alondra Gonzales on 10-15-2023 Creatinine [Mass/Vol] 1.68 mg/dL High 0.70-1.30 [facility] Comment on above: Performed By: #### G LULS #### Point of Care testing , ECH echo transthoracicon ECH echo transthoracic [facility] Main [place] [address] [place] [address] Echocardiogram Signed Patient: Italia Allen MR#: [id number] : 1955 Acct:[id number] Age/Sex: 68 / M ADM Date: 10/14/23 Loc: Room: [address] [place] [address] Type: ADM IN Attending Dr: Yovanny Rivera MD Ordering Provider: Alondra Gonzales MD Date of Service: 10/14/23 [facility] echo transthoracic: CHF exacerbation Copies [...] Diogenes Talley MD 10/15/[address] [facility] Erythrocyte distribution wid th [Ratio] by Automated countOrdered By: Alondra Gonzales on 10-15-2023 Erythrocyte distribution width (RBC) [Ratio] 15.1 % High 12.0-14.8 [facility] Comment on above: Performed By: #### C BC #### [facility] [address] [place] [address] Erythrocytes [#/volume] in B lood by Automated countOrdered By: Alondra Gonzales on 10-15-2023 RBC (Bld) [#/Vol] 3.97 10*6/uL Normal 3.90-5.60 [facility] Comment on above: Performed By: #### C BC #### [facility] [address] Glucose Poct Glucometerson 0 10-15-2023 Commemt1 Glu2: Cleaned Meter Normal [facility] Comment on above: Result Comment: PERF ORMED BY: [address] [place] [address] PATHOLOGIST [employer]IP[employer]ACH[employer] WOLFGANG JOHNSON M.D. Performed By: #### G LULS #### Point of Care testing , Glucose [Mass/Vol] 303 mg/dL Normal [facility] Comment on above: Result Comment: [place] om Glucose Reference Range is dependent on time and content of last meal. Glucose of more than 200 mg/dL in a nonstressed, ambulatory subject supports the diagnosis of Diabetes Mellitus. Performed By: #### G LULS #### Point of Care testing , Commemt1 Glu2: Cleaned Meter Normal [facility] Comment on above: Result Comment: PERF ORMED BY: [place] [id number] PATHOLOGIST STRIP[employer] MACHINE WOLFGANG JOHNSON M.D. Performed By: #### G LULS #### Point of Care testing , Glucose [Mass/Vol] 257 mg/dL Normal [facility] Comment on above: Result Comment: [place] om Glucose Reference Range is dependent on time and content of last meal. Glucose of more than 200 mg/dL in a nonstressed, ambulatory subject supports the diagnosis of Diabetes Mellitus. Performed By: #### G LULS #### Point of Care testing , Commemt1 Glu2: Cleaned Meter Normal [facility] Comment on above: Result Comment: PERF ORMED BY: [address] [place] [id number] PATHOLOGIST [employer]ACHINE WOLFGANG JOHNSON M.D. Performed By: #### G LULS #### Point of Care testing , Glucose [Mass/Vol] 159 mg/dL Normal [facility] Comment on above: Result Comment: [place] om Glucose Reference Range is dependent on time and content of last meal. Glucose of more than 200 mg/dL in a nonstressed, ambulatory subject supports the diagnosis of Diabetes Mellitus. Performed By: #### G LULS #### Point of Care testing , Glucose [Mass/volume] in Ser um or PlasmaOrdered By: Alondra Gonzales on 10-15-2023 Glucose [Mass/Vol] 120 mg/dL Significant change up 70-100 [facility] Comment on above: Delta: 220 on -[id number] recommended reference rangeRandom Glucose Reference Range is dependent on time and content of last meal. Glucose of more than 200 mg/dL in a nonstressed, ambulatory subject supports the diagnosis of Diabetes Mellitus. Result Comment: [facility] Glucose Reference Range is dependent on time [...] (Bld) [Volume fraction] 35.0 % Low 38.8-50.0 [facility] Comment on above: Performed By: #### C BC #### [facility] [address] [place] [address] Hemoglobin [Mass/volume] in BloodOrdered By: Alondra Gonzales on 10-15-2023 Hemoglobin (Bld) [Mass/Vol] 11.7 g/dL Low 13.0-17.0 [facility] Comment on above: Performed By: #### C BC #### [facility] [address] [place] [address] INR in Platelet poor plasma by Coagulation assayOrdered By: Alondra Gonzales on 10-15-2023 INR Coag (PPP) [Relative time] 1.1 {INR} Normal [facility] Comment on above: INR Therapeutic Rang [...] Performed By: #### P TT, PT #### [address] Leukocytes [#/volume] correc zaid for nucleated erythrocytes in Blood by Automated counOrdered By: Alondra Gonzales on 10-15-2023 WBC corrected for nucl RBC Auto (Bld) [#/Vol] 9.8 10*3/uL 4.1-10.5 [facility] [facility] Leukocytes [#/volume] in Blo od by Automated countOrdered By: Alondra Gonzales on 10-15-2023 WBC (Bld) [#/Vol] 9.8 10*3/uL Normal 4.1-10.5 [facility] Comment on above: Performed By: #### C BC #### [address] Lymphocytes [#/volume] in Bl ood by Automated countOrdered By: Alondra Gonzales on 10-15-2023 Lymphocytes (Bld) [#/Vol] 1.2 10*3/uL Normal 1.00-4.8 [facility] Comment on above: Performed By: #### C BC #### [address] Lymphocytes/100 leukocytes i n Blood by Automated countOrdered By: Alondra Gnozales on 10-15-2023 Lymphocytes/100 WBC (Bld) 11.9 % Normal . [facility] Comment on above: Performed By: #### C BC #### [address] MCH [Entitic mass] by Automa zaid countOrdered By: Alondra Gonzales on 10-15-2023 MCH (RBC) [Entitic mass] 29.4 pg Normal 27.5-35.2 [facility] Comment on above: Performed By: #### C BC #### [address] MCHC Auto (RBC) [Mass/Vol]Or dered By: Alondra Gonzales on 10-15-2023 MCHC (RBC) [Mass/Vol] 33.4 g/dL 32.5-35.6 [facility] MCV [Entitic volume] by Auto mated countOrdered By: Alondra Gonzales on 10-15-2023 MCV (RBC) [Entitic vol] 87.9 fL Normal 83.5-101 [facility] Comment on above: Performed By: #### C BC #### [facility] [address] [place] [address] Magnesium [Mass/volume] in S teodoro or PlasmaOrdered By: Alondra Gonzales on 10-15-2023 Magnesium [Mass/Vol] 1.7 mg/dL Low 1.9-2.7 [facility] Comment on above: Result Comment: PERF ORMED BY: [place] [address] PATHOLOGIST STRIPER MACHINE WOLFGANG JOHNSON M.D. Performed By: #### G LULS #### Point of Care testing , Neutrophils [#/volume] in Bl ood by Automated countOrdered By: Alondra Gonzales on 10-15-2023 Neutrophils (Bld) [#/Vol] 7.3 10*3/uL Normal 1.8-7.7 [facility] Comment on above: Performed By: #### C BC #### [facility] [address] [place] [address] No Panel InformationOrdered By: Yovanny Rivera on 10-15-2023 Bedside Glucose Comment Glu2: cleaned meter [facility] No Panel InformationOrdered By: Alondra Gonzales on 10-15-2023 Estimated GFR (CKD-EPI) 43.716 mL/Min [facility] Creatinine Clearance (Chem 51.77 [facility] Nucleated erythrocytes [Pres ence] in Blood by Automated countOrdered By: Alondra Gonzales on 10-15-2023 Nucleated RBC Auto Ql (Bld) 0.1 /100{WBC} 0-0.5 [facility] Partial Thromboplastin Timeo n 10-15-2023 aPTT Coag (Bld) [Time] 45.5 s High 25.1-36.[address] [facility] Comment on above: Result Comment: A he matocrit value greater than 55% may lead to inaccurate results in coagulation testing. Patients having hematocrit values >55% require a special collection tube for coagulation studies. Please contact the laboratory at [phone] for redraw instructions. PERFORMED BY: [place] [address] PATHOLOGIST STRIPER MACHINE WOLFGANG JOHNSON M.D. Performed By: #### P TT #### [address] aPTT Coag (Bld) [Time] 41.7 s High 25.1-36.[address] [facility] Comment on above: Order Comment: List the anticoagulant: HEPARIN, UNFRACTIONATED Result Comment: A he matocrit value greater than 55% may lead to inaccurate results in coagulation testing. Patients having hematocrit values >55% require a special collection tube for coagulation studies. Please contact the laboratory at [phone] for redraw instructions. PERFORMED BY: [place] [address] PATHOLOGIST STRIPER MACHINE WOLFGANG JOHNSON M.D. Performed By: #### P TT, PT #### [address] Phosphate [Mass/volume] in S teodoro or PlasmaOrdered By: Alondra Gonzales on 10-15-2023 Phosphate [Mass/Vol] 3.8 mg/dL Normal 2.5-4.5 [facility] Comment on above: Performed By: #### G LULS #### Point of Care testing , Platelet mean volume [Entiti c volume] in Blood by Automated countOrdered By: Alondra Gonzales on 10-15-2023 Platelet mean volume (Bld) [Entitic vol] 7.7 fL Normal 6.6-10.1 [facility] Comment on above: Performed By: #### C BC #### [place] [address] [place] Platelets [#/volume] in Bloo d by Automated countOrdered By: Alondra Gonzales on 10-15-2023 Platelets (Bld) [#/Vol] 285 10*3/uL Normal 150-450 [facility] Comment on above: Performed By: #### C BC #### [facility] [address] [place] [address] [place] Potassium [Moles/volume] in Serum or PlasmaOrdered By: Alondra Gonzales on 10-15-2023 Potassium [Moles/Vol] 4.1 mmol/L Normal 3.5-5.1 [facility] Comment on above: Performed By: #### G LULS #### Point of Care testing , Protein [Mass/volume] in Ser um or PlasmaOrdered By: Alondra Gonzales on 10-15-2023 Protein [Mass/Vol] 5.6 g/dL Low 6.4-8.9 [facility] Comment on above: Performed By: #### G LULS #### Point of Care testing , Prothrombin time (PT)Ordered By: Alondra Gonzales on 10-15-2023 PT Coag (PPP) [Time] 12.6 s Normal 9.0-12.9 [facility] Comment on above: A hematocrit value g reater than 55% may lead to inaccurate results in coagulation testing. Patients having hematocrit values >55% require a special collection tube for coagulation studies. Please contact the laboratory at [phone] for redraw instructions. Order Comment: List the anticoagulant: HEPARIN, UNFRACTIONATED Result Comment: A he matocrit value greater than 55% may lead to inaccurate results in coagulation testing. Patients having hematocrit values >55% require a special collection tube for coagulation studies. Please contact the laboratory at [phone] for redraw instructions. Performed By: #### P TT, PT #### [facility] [address] [place] [id number] [place] Serum globulin measurement b y calculation (mass/volume)Ordered By: Alondra Gonzales on 10-15-2023 Globulin (S) [Mass/Vol] 2.2 g/dL Normal [facility] Comment on above: Performed By: #### G LULS #### Point of Care testing , Serum or plasma albumin/glob ulin mass ratioOrdered By: Alondra Gonzales on 10-15-2023 Albumin/Globulin [Mass ratio] 1.5 {ratio} Normal [facility] Comment on above: Performed By: #### G LULS #### Point of Care testing , Serum or plasma anion gap de terminationOrdered By: Alondra Gonzales on 10-15-2023 Anion gap [Moles/Vol] 10.9 mmol/L Normal 6.0-15.0 [facility] Comment on above: Performed By: #### G LULS #### Point of Care testing , Sodium [Moles/volume] in Ser um or PlasmaOrdered By: Alondra Gonzales on 10-15-2023 Sodium [Moles/Vol] 139 mmol/L Normal 136-145 [facility] Comment on above: Performed By: #### G LULS #### Point of Care testing , US renal BIon 10-15-2023 US renal BI [facility] [place] [address] Ultrasound Report Signed Patient: Italia Allen MR#: [id number] : 1955 Acct:[id number] Age/Sex: 68 / M ADM Date: 10/14/23 Loc: Room: [address] [place] [address] Type: ADM IN Attending Dr: Yovanny Rivera [...] Baird Jr., D.O.10/15/2023 9:59 AM Dictation Location: [place] [address] Tech: Rebecca Hein Transcribed By: PWS 10/15/2359 Dictated By: Jude Baird Jr, DO 10/15/23 0954 Signed By: 10/15/[address] [facility] Urea nitrogen [Mass/volume] in Serum or PlasmaOrdered By: Alondra Gonzales on 10-15-2023 Urea nitrogen [Mass/Vol] 33 mg/dL High 09-12 [facility] Comment on above: Performed By: #### G RYAN #### Point of Care testing , C reactive protein [Mass/vol ume] in Serum or PlasmaOrdered By: Alondra Gonzales on 10-14-2023 CRP [Mass/Vol] 2.7 mg/dL High 0.0-0.5 [facility] C-Reactive Proteinon 024 C-Reactive Protein 2.7 mg/dL High 0.0-0.[address] [facility] Comment on above: Result Comment: PERF ORMED BY: [place] [address] PATHOLOGIST STRIP[employer] MACHINE WOLFGANG JOHNSON M.D. Performed By: #### C BC, ESR #### [address] Complete Blood Count Auto Di ffon 10-14-2023 Basophils (Bld) [#/Vol] 0.1 10*3/uL Normal 0.0-0.[address] [facility] Comment on above: Performed By: #### C BC, ESR #### [place] [address] [place] Basophils/100 WBC (Bld) 1.3 % Normal . [facility] Comment on above: Performed By: #### C BC, ESR #### [place] [address] [place] Eosinophils (Bld) [#/Vol] 0.2 10*3/uL Normal 0.0-0.[address] [facility] Comment on above: Performed By: #### C BC, ESR #### [place] [address] [place] Eosinophils/100 WBC (Bld) 3.2 % Normal . [facility] Comment on above: Performed By: #### C BC, ESR #### [address] Erythrocyte distribution width (RBC) [Ratio] 15.4 % High 12.0-14.[address] [facility] Comment on above: Performed By: #### C BC, ESR #### [address] Hematocrit (Bld) [Volume fraction] 35.1 % Low 38.8-50.[address] [facility] Comment on above: Performed By: #### C BC, ESR #### [address] Hemoglobin (Bld) [Mass/Vol] 11.6 g/dL Low 13.0-17.[address] [facility] Comment on above: Performed By: #### C BC, ESR #### [address] Lymphocytes (Bld) [#/Vol] 0.9 10*3/uL Low 1.00-4.[address] [facility] Comment on above: Performed By: #### C BC, ESR #### [address] Lymphocytes/100 WBC (Bld) 12.1 % Normal . [facility] Comment on above: Performed By: #### C BC, ESR #### [address] MCH (RBC) [Entitic mass] 29.3 pg Normal 27.5-35.[address] [facility] Comment on above: Performed By: #### C BC, ESR #### [address] MCV (RBC) [Entitic vol] 88.7 fL Normal 83.5-[address] [facility] Comment on above: Performed By: #### C BC, ESR #### [address] Mean Corpuscular HGB Conc 33.0 g/dL Normal 32.5-35.[address] [facility] Comment on above: Performed By: #### C BC, ESR #### [facility] [address] [place] [address] [place] Monocytes (Bld) [#/Vol] 0.6 10*3/uL Normal 0.0-0.[address] [facility] Comment on above: Performed By: #### C BC, ESR #### [facility] [address] [place] [address] [place] Monocytes/100 WBC (Bld) 7.5 % Normal . [facility] Comment on above: Performed By: #### C BC, ESR #### [facility] [address] [place] [address] [place] Neutrophils (Bld) [#/Vol] 5.7 10*3/uL Normal 1.8-7.[address] [facility] Comment on above: Performed By: #### C BC, ESR #### [facility] [address] [place] [address] [place] Neutrophils/100 WBC (Bld) 75.9 % Normal . [facility] Comment on above: Performed By: #### C BC, ESR #### [facility] [address] [place] [address] [place] NRBC% 0.1 /100{WBC} Normal 0-0.[address] [facility] Comment on above: Performed By: #### C BC, ESR #### [facility] [address] [place] [address] [place] Platelet mean volume (Bld) [Entitic vol] 7.8 fL Normal 6.6-10.[address] [facility] Comment on above: Performed By: #### C BC, ESR #### [facility] [address] [place] [address] [place] Platelets (Bld) [#/Vol] 290 10*3/uL Normal 150-[address] [facility] Comment on above: Performed By: #### C BC, ESR #### [facility] [address] [place] [address] [place] RBC (Bld) [#/Vol] 3.95 10*6/uL Normal 3.90-5.[address] [facility] Comment on above: Performed By: #### C BC, ESR #### [address] WBC (Bld) [#/Vol] 7.5 10*3/uL Normal 4.1-10.[address] [facility] Comment on above: Performed By: #### C BC, ESR #### [address] Basophils (Bld) [#/Vol] 0.1 10*3/uL Normal 0.0-0.[address] [facility] Comment on above: Result Comment: PERF ORMED BY: [place] [address] PATHOLOGIST STRIP[employer] MACHINE WOLFGANG JOHNSON M.D. Performed By: #### C BC, ESR #### [address] Basophils/100 WBC (Bld) 1.3 % Normal . [facility] Comment on above: Performed By: #### C BC, ESR #### [address] Eosinophils (Bld) [#/Vol] 0.3 10*3/uL Normal 0.0-0.[address] [facility] Comment on above: Performed By: #### C BC, ESR #### [address] Eosinophils/100 WBC (Bld) 3.4 % Normal . [facility] Comment on above: Performed By: #### C BC, ESR #### [address] Erythrocyte distribution width (RBC) [Ratio] 15.3 % High 12.0-14.[address] [facility] Comment on above: Performed By: #### C BC, ESR #### [address] Hematocrit (Bld) [Volume fraction] 35.3 % Low 38.8-50.[address] [facility] Comment on above: Performed By: #### C BC, ESR #### [address] [place] [address] [place] Hemoglobin (Bld) [Mass/Vol] 11.8 g/dL Low 13.0-17.[address] [facility] Comment on above: Performed By: #### C BC, ESR #### [address] Lymphocytes (Bld) [#/Vol] 0.9 10*3/uL Low 1.00-4.[address] [facility] Comment on above: Performed By: #### C BC, ESR #### [address] Lymphocytes/100 WBC (Bld) 10.9 % Normal . [facility] Comment on above: Performed By: #### C BC, ESR #### [address] MCH (RBC) [Entitic mass] 29.5 pg Normal 27.5-35.[address] [facility] Comment on above: Performed By: #### C BC, ESR #### [address] MCV (RBC) [Entitic vol] 87.9 fL Normal 83.5-[address] [facility] Comment on above: Performed By: #### C BC, ESR #### [address] Mean Corpuscular HGB Conc 33.5 g/dL Normal 32.5-35.[address] [facility] Comment on above: Performed By: #### C BC, ESR #### [place] [address] [place] Monocytes (Bld) [#/Vol] 0.6 10*3/uL Normal 0.0-0.[address] [facility] Comment on above: Performed By: #### C BC, ESR #### [place] [address] [place] Monocytes/100 WBC (Bld) 7.5 % Normal . [facility] Comment on above: Performed By: #### C BC, ESR #### [address] [place] [address] [place] Neutrophils (Bld) [#/Vol] 6.0 10*3/uL Normal 1.8-7.[address] [facility] Comment on above: Performed By: #### C BC, ESR #### [address] Neutrophils/100 WBC (Bld) 76.9 % Normal . [facility] Comment on above: Performed By: #### C BC, ESR #### [address] NRBC% 0.1 /100{WBC} Normal 0-0.[address] [facility] Comment on above: Performed By: #### C BC, ESR #### [address] Platelet mean volume (Bld) [Entitic vol] 7.8 fL Normal 6.6-10.[address] [facility] Comment on above: Performed By: #### C BC, ESR #### [address] Platelets (Bld) [#/Vol] 288 10*3/uL Normal 150-[address] [facility] Comment on above: Performed By: #### C BC, ESR #### [address] RBC (Bld) [#/Vol] 4.01 10*6/uL Normal 3.90-5.[address] [facility] Comment on above: Performed By: #### C BC, ESR #### [address] WBC (Bld) [#/Vol] 7.8 10*3/uL Normal 4.1-10.[address] [facility] Comment on above: Performed By: #### C BC, ESR #### [address] Comprehensive Metabolic Pane laxmi 10-14-2023 Albumin [Mass/Vol] 3.3 g/dL Low 3.5-5.[address] [facility] Comment on above: Performed By: #### C BC, ESR #### [address] Albumin/Globulin [Mass ratio] 1.4 {ratio} Normal [facility] Comment on above: Performed By: #### C BC, ESR #### [address] ALP [Catalytic activity/Vol] 59 U/L Normal 34-[address] [facility] Comment on above: Performed By: #### C BC, ESR #### [address] ALT [Catalytic activity/Vol] 17 U/L Normal 7-[address] [facility] Comment on above: Performed By: #### C BC, ESR #### [address] Anion gap [Moles/Vol] 10.6 mmol/L Normal 6.0-15.[address] [facility] Comment on above: Performed By: #### C BC, ESR #### [address] AST [Catalytic activity/Vol] 16 U/L Normal 13-[address] [facility] Comment on above: Performed By: #### C BC, ESR #### [address] Bilirubin [Mass/Vol] 0.5 mg/dL Normal 0.3-1.[address] [facility] Comment on above: Performed By: #### C BC, ESR #### [address] Calcium [Mass/Vol] 8.2 mg/dL Low 8.6-10.[address] [facility] Comment on above: Performed By: #### C BC, ESR #### [place] [address] [place] Chloride [Moles/Vol] 106 mmol/L Normal 98-[address] [facility] Comment on above: Performed By: #### C BC, ESR #### [address] CO2 [Moles/Vol] 28.5 mmol/L Normal 21.0-31.[address] [facility] Comment on above: Performed By: #### C BC, ESR #### [facility] [address] Creatinine [Mass/Vol] 1.61 mg/dL High 0.70-1.[address] [facility] Comment on above: Performed By: #### C BC, ESR #### [place] [address] [place] Creatinine Clr Calc Pharmacy 54.[address] [facility] Comment on above: Performed By: #### C BC, ESR #### [facility] [address] [place] [address] [place] GFR/1.73 sq M.predicted MDRD (S/P/Bld) [Vol rate/Area] 46.006 mL/min/{1.73_m2} Normal [facility] Comment on above: Performed By: #### C BC, ESR #### [address] Globulin (S) [Mass/Vol] 2.3 g/dL Normal [facility] Comment on above: Performed By: #### C BC, ESR #### [address] Glucose [Mass/Vol] 220 mg/dL High 70-[address] [facility] Comment on above: Result Comment: [place] Glucose Reference Range is dependent on time and content of last meal. Glucose of more than 200 mg/dL in a nonstressed, ambulatory subject supports the diagnosis of Diabetes Mellitus. ADA recommended reference range Performed By: #### C BC, ESR #### [address] Potassium [Moles/Vol] 4.1 mmol/L Normal 3.5-5.[address] [facility] Comment on above: Performed By: #### C BC, ESR #### [address] Protein [Mass/Vol] 5.6 g/dL Low 6.4-8.[address] [facility] Comment on above: Performed By: #### C BC, ESR #### [facility] [address] Sodium [Moles/Vol] 141 mmol/L Normal 136-[address] [facility] Comment on above: Performed By: #### C BC, ESR #### [facility] [address] Urea nitrogen [Mass/Vol] 31 mg/dL High 7-[address] [facility] Comment on above: Performed By: #### C BC, ESR #### [facility] [address] ECG 12 lead ECGon 10-14-2023 ECG 12 lead ECG [facility] [place] [address] [place] [address] Electrocardiograph Report Signed Patient: Italia Allen MR#: [id number] : 1955 Acct:[id number] Age/Sex: 68 / M ADM Date: 10/14/23 Loc: Room: [address] [place] [address] Type: DIS IN Attending Dr: Yovanny Rivera [...] previous ECGs available Confirmed by Diogenes Talley ([id number]) on 10/16/2023 10:19:42 PM Referred By: Electronically Signed By: Diogenes Talley Transcribed By: MUS Signed By Diogenes Talley MD 10/16/[address] [facility] Erythrocyte Sedimentation Ra clarice 10-14-2023 ESR (Bld) [Velocity] 22 mm/h High 0-[address] [facility] Comment on above: Result Comment: PERF ORMED BY: [place] [address] PATHOLOGIST STRIP[employer] MACHINE WOLFGANG JOHNSON M.D. Performed By: #### C BC, ESR #### [facility] [address] Erythrocyte sedimentation ra te by Photometric methodOrdered By: Alondra Gonzales on 10-14-2023 ESR Photometric method (Bld) [Velocity] 22 mm/hr High 0-19 [facility] Glucose Poct Glucometerson 0 10-14-2023 Glucose [Mass/Vol] 306 mg/dL Normal [facility] Comment on above: Result Comment: [facility] Glucose Reference Range is dependent on time and content of last meal. Glucose of more than 200 mg/dL in a nonstressed, ambulatory subject supports the diagnosis of Diabetes Mellitus. PERFORMED BY: [place] [address] PATHOLOGIST STRIPER MACHINE WOLFGANG JOHNSON M.D. Performed By: #### G LULS #### Point of Care testing , Glucose [Mass/Vol] 221 mg/dL Normal [facility] Comment on above: Result Comment: [facility] Glucose Reference Range is dependent on time and content of last meal. Glucose of more than 200 mg/dL in a nonstressed, ambulatory subject supports the diagnosis of Diabetes Mellitus. PERFORMED BY: [place] [address] PATHOLOGIST STRIP[employer] MACHINE WOLFGANG JOHNSON M.D. Performed By: #### G LULS #### Point of Care testing , Magnesiumon 10-14-2023 Magnesium [Mass/Vol] 1.7 mg/dL Low 1.9-2.[address] [facility] Comment on above: Performed By: #### C BC, ESR #### [facility] [address] [place] [address] [place] Partial Thromboplastin Timeo n 10-14-2023 aPTT Coag (Bld) [Time] 35.7 s Normal 25.1-36.[address] [facility] Comment on above: Result Comment: A he matocrit value greater than 55% may lead to inaccurate results in coagulation testing. Patients having hematocrit values >55% require a special collection tube for coagulation studies. Please contact the laboratory at [phone] for redraw instructions. PERFORMED BY: [place] [id number] PATHOLOGIST STRIPER MACHINE WOLFGANG JOHNSON M.D. Performed By: #### P TT #### [place] [id number] [place] aPTT Coag (Bld) [Time] 31.1 s Normal 25.1-36.[address] [facility] Comment on above: Result Comment: A he matocrit value greater than 55% may lead to inaccurate results in coagulation testing. Patients having hematocrit values >55% require a special collection tube for coagulation studies. Please contact the laboratory at [phone] for redraw instructions. PERFORMED BY: [place] [address] PATHOLOGIST STRIPER MACHINE WOLFGANG JOHNSON M.D. Performed By: #### C BC, ESR #### [place] [id number] [place] Prothrombin Time INRon 10-13 INR Coag (PPP) [Relative time] 1.1 {INR} Normal [facility] Comment on above: Result [...] Performed By: #### C BC, ESR #### [place] [id number] [place] PT Coag (PPP) [Time] 13.0 s High 9.0-12.[address] [facility] Comment on above: Result Comment: A he matocrit value greater than 55% may lead to inaccurate results in coagulation testing. Patients having hematocrit values >55% require a special collection tube for coagulation studies. Please contact the laboratory at [phone] for redraw instructions. Performed By: #### C BC, ESR #### [place] [id number] [place] Troponin I High Sensitivityo n 10-14-2023 Troponin I High Sensitivity 1682.8 pg/mL Off scale high 0.0-20.[address] [facility] Comment on above: Result Comment: Crit ical Result : Called to and read back by: JAREK REESE at: 10/14/2023 12:42:52 by:ADRIENNE PERFORMED BY: [place] [address] PATHOLOGIST STRIP[employer] MACHINE WOLFGANG JOHNSON M.D. Performed By: #### C BC, ESR #### [address] Troponin I.cardiac [Mass/vol ume] in Serum or Plasma by Detection limit <= 0.01 ng/Ordered By: Alondra Gonzales on 10-14-2023 Troponin I.cardiac DL <= 0.01 ng/mL [Mass/Vol] 1682.8 pg/mL High 0.0-20.0 [facility] Comment on above: Critical Result : Ca lled to and read back by: JAREK REESE at: 10/14/2023 12:42:52 by:ADRIENNE XR chest 1V portableon 10-13 XR chest 1V portable [facility] [place] [address] [place] [address] XRay Report Signed Patient: Italia Allen MR#: [id number] : 1955 Acct:[id number] Age/Sex: 68 / M ADM Date: 10/14/23 Loc: Room: [address] [place] [address] Type: ADM IN Attending Dr: Alondra Gonzales [...] Andrés Hardwick M.D.10/14/2023 12:13 PM Dictation Location: [place] [address] Transcribed By: [facility] 10/14/23 1213 Dictated By: Andrés Hardwick II, MD 10/14/23 1212 Signed By: 10/14/23 [address] [facility] Vital Signs Date Time Vital Sign Value Performing Clinician Facility 11-29-2023 13:55-0400 Body height 177.8 cm Fatemeh Knox DPM Work Phone: [facility] 11-29-2023 13:55-0400 Body mass index (BMI) [Ratio] 35.87 kg/m2 Fatemeh Jared DPM Work Phone: [facility] 11-29-2023 13:55-0400 Body weight 113.4 kg Fatemeh Jared DPM Work Phone: [facility] 11-22-2023 15:42-0400 Blood Pressure Location Marine [facility] 11-22-2023 15:42-0400 Diastolic blood pressure 60 mm[Hg] [facility] 11-22-2023 15:42-0400 Heart rate 76 /min [facility] 11-22-2023 15:42-0400 Respiratory rate 16 /min [facility] 11-22-2023 15:42-0400 Systolic blood pressure 110 mm[Hg] [facility] 10-16-2023 15:57-0400 Body temperature 37.0 degrees Celsius [facility] Comment on above: Result Comment: NOTE: Patient Results ar e Not Corrected for Temperature Performed By: #### 1 [id number] #### ERICA Tam ([id number]) [facility] ([facility]) [address] [place] [id number] 10-16-2023 15:57-0400 SaO2% (BldA) [Mass fraction] 95 % [facility] Comment on above: Performed By: #### 56671-3 #### ERICA Tam ([id number]) [facility] ([facility]) [address] [place] [address] 10-15-2023 23:16-0400 Body temperature 98 [degF] [facility] 10-15-2023 23:16-0400 Diastolic blood pressure 73 mm[Hg] [facility] 10-15-2023 23:16-0400 Heart rate 104 /min [facility] 10-15-2023 23:16-0400 Respiratory rate 18 /min [facility] 10-15-2023 23:16-0400 SaO2% (BldA) [Mass fraction] 92 % [facility] 10-15-2023 23:16-0400 Systolic blood pressure 153 mm[Hg] [facility] 10-15-2023 20:00-0400 Inhaled oxygen flow rate 2 L/min [facility] 10-15-2023 14:51-0400 Body height 177.8 cm [facility] 10-15-2023 06:00-0400 Body weight 112.2 kg [facility] Encounters Encounter Date Encounter Type Care Provider Facility Start: 12-04-2023 End: 12-04-2023 ambulatory Marine X Cherrie Facility:[facility] Start: 12-04-2023 End: 12-04-2023 Patient encounter procedure Marine X Orzech [facility] Start: 12-03-2023 ambulatory Marine Grier Facility: [facility] Start: 11-29-2023 End: 11-29-2023 Bamboo flowsheet Fatemeh Coleman DPM Work Phone: [facility] Start: 11-29-2023 End: 11-29-2023 Bamboo flowsheet Fatemeh Coleman DPM Work Phone: [facility] Start: 11-29-2023 End: 11-29-2023 ambulatory FATEMEH COLEMAN Not Available Start: 11-29-2023 End: 11-29-2023 Office outpatient new 30 minutes Fatemeh Coleman DPM Work Phone: [facility] Comment on above: Dermatophytosis of n ail (Primary Dx); Dystrophic nail; Angiopathy, diabetic (CMS/HCC); Diabetic polyneuropathy associated with type 2 diabetes mellitus ([facility]/HCC) Start: 11-22-2023 End: 11-22-2023 ambulatory Marine Grier Facility:[facility] Start: 11-22-2023 End: 11-22-2023 Patient encounter procedure Marine Ryderelli [facility] Start: 11-13-2023 End: 11-13-2023 ambulatory [facility] Start: 11-02-2023 End: 11-02-2023 ambulatory [facility] Start: 10-15-2023 End: 10-24-2023 Encounter for preprocedural cardiovascular examination [facility] Start: 10-15-2023 End: 10-24-2023 Evaluation and management of inpatient [facility] Start: 10-14-2023 End: 10-15-2023 Evaluation and management of inpatient [facility] [place] [facility] Work Phone: Procedures Date Procedure Procedure Detail Performing Clinician Start: 10-15-2023 Start: 10-15-2023 [facility] Start: 10-15-2023 Ultrasonography of b ilateral kidneys Start: 10-14-2023 Plain chest X-ray Cholecystectomy Marine Ryderdesi sandrita Tonsillectomy Marine Efrainsobia Plan of Treatment Date Care Activity Detail Author Start: 03-13-2024 End: 03-13-2024 Patient encounter procedure 03/13/2024 2:15 PM EST Procedure Visit [facility] [address] [place] [id number] Fatemeh Coleman DPM [address] [place], [place] [id number] [facility] Start: 10-21-2023 Influenza vaccination Influenza Vaccine (#1) [facility] Start: 10-15-2023 [facility] Start: 10-15-2023 [facility] Start: 10-14-2023 [facility] Start: 10-14-2023 Hospital admission [facility] Start: 10-14-2023 Referral to software qa manager [facility] Start: 08-02-2019 Pneumococcal Vaccine: 65+ Years (2 of 2 - PCV) Pneumococcal Vaccine: 65+ Years (2 of 2 - PCV) [facility] Start: 1955 Screening for malignant neoplasm of colon [facility] Patient Education Heart Failure, Adult (DC) [facility] Work Phone: Immunizations Immunization Date Immunization Notes Care Provider Fa pettyty 03-05-2021 Influenza, injectabl e, Madin Casi Canine Kidney, preservative free, quadrivalent Fatemeh Coleman DPM Work Phone: [facility] 03-05-2021 influenza virus vacc ine, unspecified formulation Fatemeh Coleman DPM Work Phone: [facility] 12-21-2019 influenza, injectabl e, quadrivalent, contains preservative Fatemeh Coleman DPM Work Phone: [facility] 11-30-2017 Influenza, injectabl e, Madin [place] Canine Kidney, preservative free, quadrivalent Fatemeh Coleman DPM Work Phone: [facility] 11-30-2017 pneumococcal polysaccharide vaccine, 23 valent Fatemeh Coleman DPM Work Phone: [facility] Healthcare Payers Date Payer Category Payer Self-pay 2020 Medicare MEDICARE MEDICAR E PART B [id number] 2020-[place] [address] Medicare [id number] 2020 Medicare [id number] 1955 Unknown [id number] 4 1954 Unknown [id number] 5 1954 Unknown [id number] 5 1954 Unknown [id number] 9 1954 Unknown [id number] 1954 Unknown [id number] 1954 Unknown [id number] Unknown [employer] KIMBALL/LINK [id number] Unknown [id number] Social History Date Type Detail Facility Start: 10-14-2023 End: 11-22-2023 Tobacco smoking status NHIS Never smoked tobacco (finding) [facility] Start: 1955 Sex Assigned At Male [facility] Tobacco smoking status Ex-smoker (finding ) [facility] Tobacco smoking status Never [facility] Start: 11-29-2023 Sex Assigned At Male [facility] Tobacco smoking stat NHIS Tobacco smoking [...] 11-22-2023 Functional Status N/A [facility] 10-15-2023 Functional status Patient at Baseline [facility] Work Phone: Mental Status Date Assessment Result Facility 10-15-2023 Cognitive function Cognitive Sta tus Patient at Baseline [facility] Work Phone: Clinical Notes 10-14-2023 to 11-29-2023 Fatemeh Coleman, RADHAM - 11/29/2023 1:45 PM EDTPatient Instructions Note Date & Type Note Facility 11-29-2023 History of Presen t illness Narrative Images from the original note were not included. Subjective Patient ID: Italia Allen is a 68 y.o. 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, unable [...] Fatemeh Coleman DPM documented in this encounter [place] [id number] Instructions Fatemeh Coleman DPM - 11/29/2023 1:45 PM EDT As noted documented in this encounter [facility] 10-15-2023 Discharge summary Note Date/Time October 15, 2023 6:18pm [place] [address] Discharge Summary Signed Patient: Italia Allen MR#: [id number] : 1955 Acct:[id number] Age/Sex: 68 / M Adm Date: 4 Loc: Room: [address] [place] [address]: Yovanny Rivera MD Copies to: [...] II, HTN, obesity, HFpEF who presentsto the [place] emergency department with complaints of deep pain [...] % (Auto) 74.1, Lymph % (Auto) 11.9, Allen % (Auto) 9.3, Eos % (Auto) 3.7, Baso % (Auto) 1.0, Nucleat RBC Rel Count 0.1, Neut # (Auto) 7.3, Lymph # (Auto) 1.2, Allen # (Auto) 0.9 H, Eos # (Auto) [...] signed by Yovanny Rivera MD> 10/15/23 1828 [facility] Work Phone: 1(533) 776-744608-26-2024 Progress note Author Ann Plata [facility] October 15, 2023 12:58pm Note Date/Time October 15, 2023 12 :57pm [facility] [address] [place] [address] Cardiology Progress Note Signed Patient: Italia Allen MR#: [id number] : 1955 Acct:[id number] Age/Sex: 68 / M Adm Date: 4 Loc: Room: [address] [place] [address] Type: ADM IN Attending Dr: Yovanny Rivera [...] MPV Neut % (Auto) Lymph % (Auto) Allen % (Auto) Eos % (Auto) Baso % (Auto) Nucleat RBC Rel Count Neut # (Auto) Lymph # (Auto) Allen # (Auto) Eos # (Auto) Baso # [...] % (Auto) 74.1 Lymph % (Auto) 11.9 Allen % (Auto) 9.3 Eos % (Auto) 3.7 Baso % (Auto) 1.0 Nucleat RBC Rel Count 0.1 Neut # (Auto) 7.3 Lymph # (Auto) 1.2 Allen # (Auto) 0.9 H Eos # (Auto) [...] MPV Neut % (Auto) Lymph % (Auto) Allen % (Auto) Eos % (Auto) Baso % (Auto) Nucleat RBC Rel Count Neut # (Auto) Lymph # (Auto) Allen # (Auto) Eos # (Auto) Baso # [...] signed by MD Ann Plata> 10/15/23 1258 [facility] Work Phone: 1(909) 177-760708-26-2024 [facility] History and physical note Author Alondra Gonzales [facility] October 14, 2023 3:57pm Note Date/Time October 14, 2023 9: 54am [facility] [address] [place] [address] Hospitalist H&P Signed Patient: Italia Allen MR#: [id number] : 1955 Acct:[id number] Age/Sex: 68 / M Adm Date: 4 Loc: Room: [address] [place] [address] Type: ADM IN Attending Dr: Alondra Gonzales [...] He was brought as a transfer from [place] ED. As per ED note at [place],patient presented to the ED at [place] with chest pain, described as deep pain [...] or diaphoresis. He showed activity ED at [place] with oxygen saturation of 70% he was noticed to have bilateral lower extremity edema and he was started on BiPAP as well as was given IV Lopressor 1 dose and was started on heparin drip. His troponin wasuptrending EKG showed sinus tachycardia with no ischemic changes as per [place] records(report not actual tracing). Labs: CBC showed [...] done during my encounter with the pt [facility] Medical History Biceps muscle tear Cholecystectomy planned [...] acute systolic CHF exacerbation (Stage C) NSTEMI (AHRLEEN score of 3) -Cardiology already consulted recommends [...] 4 Documented By: Alondra Gonzales MD 10/14/23 0912 Signed By: <Electronically signed by Alondra Gonzales MD> 10/14/23 0809 [facility] Work Phone: 1(263) 121-737308-25-2024 Consult note Author Ann Plata [facility] October 14, 2023 2:55pm Note Date/Time October 14, 2023 2: 51pm [facility] [address] [place] [address] Cardiology Consult Note Signed Patient: Italia Allen MR#: [id number] : 1955 Acct:[id number] Age/Sex: 68 / M Adm Date: 4 Loc: Room: 6J7111-8 Type: ADM IN Attending Dr: Alondra Gonzales MD Copies to: NON STAFF MD Ann Gordillo MD~ Cardiology HPI History of Present Illness Consult Date: 10/14/23 Reason for Consult: Cardiac consultation requested for evaluation for shortness of breath chest heaviness and acute coronary syndrome HPI: Mr. Allen is a 68 year old male who denies prior cardiac history presented to [place] emergency room complaining of increasing shortness of breath and chest heaviness. He was evaluated and felt to have evidence of acute coronary syndrome and heart failure and arrangement was made to transfer the patient to [facility] for further care. The patient reports historyof longstanding diabetes mellitus and hypertension. He report over the last fewweeks he has been describing decreased exercise tolerance and dyspnea on exertion. He has seen his family physician on several occasion with adjustment of his medication but without improvement. Prior to presentation to the emergency room at [place] he developed worsening shortness of breath and [...] of system is negative other mentioned above [facility] Medical History Biceps muscle tear Cholecystectomy planned [...] (Auto) 0.9 L 0.9 L (1.00-4.8) x10E3/uL Allen # (Auto) 0.6 0.6 (0.0-0.8) x10E3/uL Eos [...] <Electronically signed by MD Ann Plata> 10/14/23 8684 [facility] Work Phone: Evaluation + Plan note Future Appointments Appointment Date:11/29/2023 03:00:00 PM Scheduled Provider: Location:[facility] Appointment Type:URO Nurse Visit Appointment Date:12/04/2023 03:00:00 PM Scheduled Provider:RADHA Grier APRN, [place] X Location:[facility] Appointment Type:URO Office Visit [facility] Evaluation note* Diagnosis Onset Date Resolution Status ACS (acute coronary syndrome) acute Acute hypoxic respiratory failure acute Systolic CHF, acute on chronic acute [facility] Work Phone: Evaluation note* Diagnosis Dermatophytosis of nail- Primary Dystrophic nail Other specified disease of nail Angiopathy, diabetic (CMS/HCC) Type II or unspecified type diabetes mellitus with peripheral circulatory disorders, not stated as uncontrolled Diabetic polyneuropathy associated with type 2 diabetes mellitus (CMS/HCC) [facility] Narrative No data available for this section [facility] Hospital Discharge instructions Additional Instructions Full code [facility] Work Phone: Hospital Discharge instructions No data available for this section [facility] Progress note No data available for this section [facility] Chief Complaint and Reason for [...] and content) DATE CREATED AUTHOR 10/19/2023 [facility] DATE CREATED AUTHOR AUTHOR'S ORGANIZ ATION 11/10/2023 [facility] DATE CREATED AUTHOR AUTHOR'S ORGANIZ ATION 11/15/2023 [facility] DATE CREATED AUTHOR AUTHOR'S ORGANIZ ATION 11/16/2023 [facility] DATE CREATED AUTHOR AUTHOR'S ORGANIZ ATION 12/01/2023 [facility] EP[facility] DATE CREATED AUTHOR AUTHOR'S ORGANIZ ATION 12/07/2023 [facility] Reason for Visit (unrecogniz ed section and content) Reason Comments 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 Haven't been trimmed since last January. PCP: [facility] 10/2023, A1C: ?, BS: n/a [...] BE BASED ON THE PRIMARY CLINICAL RECORDS. [facility] [employer] [facility]. provides no warranty or guarantee of the accuracy or completeness of information in this document.
[2023-12-19 17:44] LABS: PTT Heparin Monitor 51.7 sec (48.2-68.6)
--- NOTE | 2023-12-19 17:50 | PC.NURSE ---
this RN transferred pt upstairs at approx 1730 and gave bedside report to Dorota KRAFT who verbalized understanding. all questions answered. Dorota RN and pt deny further needs.
[2023-12-19 18:16] LABS: Glucometer 148 mg/dL (74-106)
[2023-12-19] MEDS: HYDROCODONE/ACET 5-325 MG TABLET 1 TAB PO (19:59)
[2023-12-19] MEDS: PANTOPRAZOLE SODIUM 40 MG VIAL IV (21:29)
[2023-12-19] MEDS: CARVEDILOL 25 MG TABLET PO (21:30)
[2023-12-19] MEDS: BUMETANIDE 1 MG TABLET 3 MG PO (21:30)
[2023-12-19] MEDS: ATORVASTATIN CALCIUM 40 MG TABLET 80 MG PO (21:30)
[2023-12-19 22:18] LABS: Glucometer 232 mg/dL (74-106)
[2023-12-19] MEDS: ACETAMINOPHEN 325 MG TABLET 650 MG PO (23:08)
[2023-12-19 23:33] LABS: PTT Heparin Monitor 48.6 sec (48.2-68.6)
[2023-12-20] VITALS (51 sets, daily range): BP systolic 120–156; BP diastolic 55–86; PULSE 75–117; TEMP 36.6–37.1; O2SAT 96–100
[2023-12-20 06:00] LABS: Basophils Absolute Auto 0.1 10^3/uL (0.0-0.1); Basophils Percent Auto 0.9 % (0.2-2.0); Eosinophils Absolute Auto 0.5 10^3/uL (0.0-0.7); Eosinophils Percent Auto 5.5 % (0.9-7.0); Hematocrit 25.7 % (42.0-54.0); Immature Granulocytes Abs Auto 0.05 10^3/uL (0.00-0.03); Immature Granulocytes Pct Auto 0.5 % (0.0-0.5); Lymphocytes Absolute Auto 1.1 10^3/uL (1.2-3.8); Lymphocytes Percent Auto 11.9 % (20.5-60.0); Mean Corpuscular HGB Conc 31.1 g/dL (29.9-35.2); Mean Corpuscular Hemoglobin 28.7 pg (25.9-34.0); Mean Corpuscular Volume 92.1 fL (80.0-94.0); Mean Platelet Volume 10.3 fL (9.5-13.5); Monocytes Absolute Auto 0.9 10^3/uL (0.3-0.8); Neutrophils Absolute Auto 6.9 10^3/uL (1.4-6.5); Neutrophils Percent Auto 72.2 % (43.0-75.0); Platelet Count 347 10^3/uL (150-450); Red Blood Count 2.79 10^6/uL (4.70-6.10); Red Cell Distribution Width 15.9 % (11.0-15.0); White Blood Count 9.5 10^3/uL (4.0-11.0)
[2023-12-20 06:18] LABS: Estimated Average Glucose 151 mg/dL; Glycohemoglobin A1C 6.9 % (4.5-6.2)
[2023-12-20 06:43] LABS: Anion Gap 12.6; BUN Creatinine Ratio 19.6; Carbon Dioxide 28.4 mmol/L (21.0-32.0); Chloride 106 mmol/L (98-107); Estimated GFR (African America 38 (>=60 mL/min/1.73m^2); Estimated GFR (Non-African Ame 32 (>=60 mL/min/1.73m^2); Glucose 153 mg/dL (74-106); Sodium 143 mmol/L (136-145)
[2023-12-20 06:44] LABS: Alanine Aminotransferase 25 U/L (16-63); Albumin Globulin Ratio 0.7; Albumin Level 2.4 g/dL (3.4-5.0); Alkaline Phosphatase 69 U/L (46-116); Aspartate Amino Transferase 31 U/L (15-37); Bilirubin Total 0.3 mg/dL (0.2-1.0); Calcium 8.4 mg/dL (8.5-10.1); Globulin 3.4 g/dL; Total Protein 5.8 g/dL (6.4-8.2)
[2023-12-20 06:45] LABS: Chol HDL Ratio 2.6; Cholesterol 90 mg/dL (<=200); HDL Cholesterol 35 mg/dL (40-60); Triglycerides 118 mg/dL (<=150); VLDL CHOLESTEROL 23.6 mg/dL
[2023-12-20 06:46] LABS: Thyroid Stimulating Hormone 1.482 uIU/mL (0.358-3.740)
[2023-12-20 06:52] LABS: PTT Heparin Monitor 46.4 sec (48.2-68.6)
--- OUTSIDE RECORDS SUMMARY | 2023-12-20 07:01 | XMS_ITS | CCD ---
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 Normal [facility] ECG 12-LEADon 11-13-2023 ECG 12-LEAD Ventricular Rate 72 Atrial Rate 72 P-R Interval 188 QRS Duration 96 Q-T Interval 398 QTC Calculation(Bazett) 435 P [place] -13 R [place] 9 T [place] 36 QRS Count 12 Q Onset 216 P Onset 122 P Offset 163 T Offset 415 QTC Fredericia 423 Diagnosis Normal sinus rhythm Normal ECG When compared with ECG of 16-OCT-2023 08:50, No significant change was found Confirmed by Mere Urban ([id number]) on 11/14/2023 6:48:02 PM Normal [facility] CBC panel Auto (Bld)on 10-23 Erythrocyte distribution width (RBC) [Ratio] 15.0 % High 11.5-14.5 [facility] Comment on above: Performed By: #### 5 8077-9 #### ERICA Tam ([id number]) [facility] ([facility]) [address] [place] [address] 14369 Hematocrit (Bld) [Volume fraction] 36.3 % Low 41.0-52.0 [facility] Comment on above: Performed By: #### 5 8077-9 #### ERICA Tam ([id number]) [facility] ([facility]) [id number] [place] [address] 29703 Hemoglobin (Bld) [Mass/Vol] 11.4 g/dL Low 13.5-17.5 [facility] Comment on above: Performed By: #### 5 8077-9 #### ERICA Tam ([id number]) [facility] ([facility]) [address] [place] [address] 56325 MCH (RBC) [Entitic mass] 29.1 pg Normal 26.0-34.0 [facility] Comment on above: Performed By: #### 5 8077-9 #### ERICA Tam ([id number]) [facility] ([facility]) [address] [place] [address] 33891 MCHC (RBC) [Mass/Vol] 31.4 g/dL Low 32.0-36.0 [facility] Comment on above: Performed By: #### 5 8077-9 #### ERICA Tam ([id number]) [facility] ([facility]) [address] [place] [address] 22651 MCV (RBC) [Entitic vol] 93 fL Normal 80-100 [facility] Comment on above: Performed By: #### 5 8077-9 #### ERICA Tam ([id number]) [facility] ([facility]) [address] [place] [address] 15549 Nucleated RBC/100 WBC (Bld) [Ratio] 0.0 /100 WBCs Normal 0.0-0.0 [facility] Comment on above: Performed By: #### 5 8077-9 #### ERICA Tam ([id number]) [facility] ([facility]) [address] [place] [address] 49602 Platelets (Bld) [#/Vol] 313 x10*3/uL Normal 150-450 [facility] Comment on above: Performed By: #### 5 8077-9 #### ERICA Tam ([id number]) [facility] ([facility]) [address] [place] [address] 79891 RBC (Bld) [#/Vol] 3.92 x10*6/uL Low 4.50-5.90 [facility] Comment on above: Performed By: #### 5 8077-9 #### ERICA Tam ([id number]) [facility] ([facility]) [address] [place] [address] WBC (Bld) [#/Vol] 8.9 x10*3/uL Normal 4.4-11.3 [facility] Comment on above: Performed By: #### 5 8077-9 #### ERICA Tam ([id number]) [facility] ([facility]) [address] [place] [address] 55153 Glucose Test strip manual (B ld) [Mass/Vol]on 10-24-2023 Glucose [Mass/Vol] 203 mg/dL High 74-99 [facility] Comment on above: Performed By: #### 5 8077-9 #### ERICA Tam ([id number]) [facility] ([facility]) [address] [place] [address] 51300 Renal function 2000 panelon 10-24-2023 Albumin BCP dye [Mass/Vol] 3.2 g/dL Low 3.4-5.0 [facility] Comment on above: Performed By: #### 5 8077-9 #### ERICA Tam ([id number]) [facility] ([facility]) [address] [place] [address] 05627 Anion gap [Moles/Vol] 12 mmol/L Normal 10-20 [facility] Comment on above: Performed By: #### 5 8077-9 #### ERICA Tam ([id number]) [facility] ([facility]) [address] [place] [address] 75824 Calcium [Mass/Vol] 8.4 mg/dL Low 8.6-10.6 [facility] Comment on above: Performed By: #### 5 8077-9 #### ERICA Tam ([id number]) [facility] ([facility]) [address] [place] [address] 10352 Chloride [Moles/Vol] 105 mmol/L Normal 98-107 [facility] Comment on above: Performed By: #### 5 8077-9 #### ERICA Tam ([id number]) [facility] ([facility]) [address] [place] [address] CO2 [Moles/Vol] 24 mmol/L Normal 21-32 [facility] Comment on above: Performed By: #### 5 8077-9 #### ERICA Tam ([id number]) [facility] ([facility]) [address] [place] [address] Creatinine [Mass/Vol] 1.72 mg/dL High 0.50-1.30 [facility] Comment on above: Performed By: #### 5 8077-9 #### ERICA Tam ([id number]) [facility] ([facility]) [address] [place] [address] 56554 Glomerular filtration rate/1.73 sq M.predicted 42 mL/min/1.73m*2 Low >60 [facility] Comment on above: Result Comment: Calc ulations of estimated GFR are performed using the 2020 CKD-EPI Study Refit equation without the race variable for the IDMS-Traceable creatinine methods. https://jasn.asnjournals.org/content//ASN.03594 98924 Performed By: #### 5 8077-9 #### ERICA Tam ([id number]) [facility] ([facility]) [address] [place] [address] Glucose [Mass/Vol] 184 mg/dL High 74-99 [facility] Comment on above: Performed By: #### 5 8077-9 #### ERICA Tam ([id number]) [facility] ([facility]) [address] [place] [address] Phosphate [Mass/Vol] 3.9 mg/dL Normal 2.5-4.9 [facility] Comment on above: Result Comment: The performance characteristics of phosphorus testing in heparinized plasma have been validated by the individual laboratory site where testing is performed. Testing on heparinized plasma is not approved by the FDA; however, such approval is not necessary. Performed By: #### 5 8077-9 #### ERICA Tam ([id number]) [facility] ([facility]) [address] [place] [address] Potassium [Moles/Vol] 4.1 mmol/L Normal 3.5-5.3 [facility] Comment on above: Performed By: #### 5 8077-9 #### ERICA MCDONALD L ([id number]) [facility] ([facility]) [address] [place] [address] 58922 Sodium [Moles/Vol] 137 mmol/L Normal 136-145 [facility] Comment on above: Performed By: #### 5 8077-9 #### ERICA MCDONALD L ([id number]) [facility] ([facility]) [address] [place] [address] 15029 Urea nitrogen [Mass/Vol] 38 mg/dL [facility] 6-23 [facility] Comment on above: Performed By: #### 5 8077-9 #### ERICA MCDONALD L ([id number]) [facility] ([facility]) [address] [place] [address] 51334 Activated clotting timeon ACT Coag (Bld) [address] Comment on above: Result Comment: Targ et ACT range will vary based on the patient population, clinical status, and surgical intervention occurring. Performed By: #### 5 8077-9 #### ERICA MCDONALD L ([id number]) [facility] ([facility]) [address] [place] [address] 34439 ACT Coag (Bld) [address] Comment on above: Result Comment: Targ et ACT range will vary based on the patient population, clinical status, and surgical intervention occurring. Performed By: #### 5 8077-9 #### ERICA MCDONALD L ([id number]) [facility] ([facility]) [address] [place] [address] 33336 ACT Coag (Bld) [address] Comment on above: Result Comment: Targ et ACT range will vary based on the patient population, clinical status, and surgical intervention occurring. Performed By: #### 5 8077-9 #### ERICA Tam ([id number]) [facility] ([facility]) [address] [place] [address] 87452 CARDIAC CATHETERIZATION PROC Tevin 10-23-2023 CARDIAC CATHETERIZATION PROCEDURE [facility], Sole Molding Machine Operator, [address] [place], [place] [address] Cardiovascular Catheterization Report Patient Name: ITALIA ALLEN Performing Physician: [id number] Wiley MD Study Date: 10/23/2023 Verifying Physician: Dior Wiley MD MRN/PID: [id number] Compressor Operator Adjuster/Co-Scrub: Ordering Provider: [id number] INDERJIT COOLEY Date of /Age: 6 1955 / 68 years Compressor Operator Adjuster: Gender: M Fellow: [id number] Inderjit Cooley DM Admit Date: Fellow: Abdoulaye [...] dysfunction. Heart failure. Recent myocardial infarction. Recent HI. Medical History: Stress test performed: No. CTA performed: No. [facility] accessed: No. LVEF Assessed: Yes. LVEF = [...] worsening dyspnea. He was subsequently transferred to [facility] for further workup. 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 Transthoracic echocardiogram demonstrated an LVEF of 45 to 50%. He was then transferred to [facility] for CABG evaluation. Sadly, his [...] was calcified. Right Coronary Artery Distribution: Known TECHNICAL SYSTEMS ARCHITECT. Coronary Interventions: After infiltration with 2% Lidocaine, the right was cannulated with a modified Seldinger technique with ultrasound guidance. Subsequently a 6 Zimbabwean sheath was placed antegrade in the right. A 6 [place]an EBU 3.5 guide catheter was advanced over [...] rodrigo. Post-stent intravascular ultrasound assessment with the [place] [facility] catheter was performed. IVUS demonstrated an [...] 4 pa (more content not included)... Normal [facility] CBC panel Auto (Bld)on 10-22 Erythrocyte distribution width (RBC) [Ratio] 14.6 % High 11.5-14.5 [facility] Comment on above: Performed By: #### 7 77-3 #### ERICA Tam ([id number]) [facility] ([facility]) [address] [place] [address] 26347 Hematocrit (Bld) [Volume fraction] 37.2 % Low 41.0-52.0 [facility] Comment on above: Performed By: #### 7 77-3 #### ERICA MCDONALD L ([id number]) [facility] ([facility]) [address] [place] [address] 75469 Hemoglobin (Bld) [Mass/Vol] 11.2 g/dL Low 13.5-17.5 [facility] Comment on above: Performed By: #### 7 77-3 #### ERICA MCDONALD L ([id number]) [facility] ([facility]) [address] [place] [address] 54275 MCH (RBC) [Entitic mass] 27.9 pg Normal 26.0-34.0 [facility] Comment on above: Performed By: #### 7 77-3 #### ERICA MCDONALD L ([id number]) [facility] ([facility]) [address] [place] [address] MCHC (RBC) [Mass/Vol] 30.1 g/dL Low 32.0-36.0 [facility] Comment on above: Performed By: #### 7 77-3 #### ERICA Tam ([id number]) [facility] ([facility]) [address] [place] [address] 80292 MCV (RBC) [Entitic vol] 93 fL Normal 80-100 [facility] Comment on above: Performed By: #### 7 77-3 #### ERICA Tam ([id number]) [facility] ([facility]) [address] [place] [address] 16314 Nucleated RBC/100 WBC (Bld) [Ratio] 0.0 /100 WBCs Normal 0.0-0.0 [facility] Comment on above: Performed By: #### 7 77-3 #### ERICA Tam ([id number]) [facility] ([facility]) [address] [place] [address] 03957 Platelets (Bld) [#/Vol] 334 x10*3/uL Normal 150-450 [facility] Comment on above: Performed By: #### 7 77-3 #### ERICA Tam ([id number]) [facility] ([facility]) [address] [place] [address] 47799 RBC (Bld) [#/Vol] 4.01 x10*6/uL Low 4.50-5.90 [facility] Comment on above: Performed By: #### 7 77-3 #### ERICA Tam ([id number]) [facility] ([facility]) [address] [place] [address] 48915 WBC (Bld) [#/Vol] 9.6 x10*3/uL Normal 4.4-11.3 [facility] Comment on above: Performed By: #### 7 77-3 #### ERICA Tam ([id number]) [facility] ([facility]) [address] [place] [address] 18158 Glucose Test strip manual (B ld) [Mass/Vol]on 10-23-2023 Glucose [Mass/Vol] 238 mg/dL High 74-99 [facility] Comment on above: Performed By: #### 5 8077-9 #### ERICA Tam ([id number]) [facility] ([facility]) [address] [place] [address] Glucose [Mass/Vol] 96 mg/dL Normal 74-99 [facility] Comment on above: Performed By: #### 7 77-3 #### ERICA Tam ([id number]) [facility] ([facility]) [address] [place] [address] Glucose [Mass/Vol] 101 mg/dL High 74-99 [facility] Comment on above: Performed By: #### 7 77-3 #### ERICA Tam ([id number]) [facility] ([facility]) [address] [place] [address] Glucose [Mass/Vol] 96 mg/dL Normal 74-99 [facility] Comment on above: Performed By: #### 7 77-3 #### ERICA Tam ([id number]) [facility] ([facility]) [address] [place] [address] 37361 Renal function 2000 panelon 10-23-2023 Albumin BCP dye [Mass/Vol] 3.2 g/dL Low 3.4-5.0 [facility] Comment on above: Performed By: #### 7 77-3 #### ERICA Tam ([id number]) [facility] ([facility]) [address] [place] [address] Anion gap [Moles/Vol] 13 mmol/L Normal 10-20 [facility] Comment on above: Performed By: #### 7 77-3 #### ERICA Tam ([id number]) [facility] ([facility]) [address] [place] [address] Calcium [Mass/Vol] 8.5 mg/dL Low 8.6-10.6 [facility] Comment on above: Performed By: #### 7 77-3 #### ERICA Tam ([id number]) [facility] ([facility]) [address] [place] [address] Chloride [Moles/Vol] 103 mmol/L Normal 98-107 [facility] Comment on above: Performed By: #### 7 77-3 #### ERICA ARREOLATZER L ([id number]) [facility] ([facility]) [address] [place] [address] CO2 [Moles/Vol] 25 mmol/L Normal 21-32 [facility] Comment on above: Performed By: #### 7 77-3 #### ERICA RESTREPOMOTZER L ([id number]) [facility] ([facility]) [address] [place] [address] Creatinine [Mass/Vol] 1.77 mg/dL High 0.50-1.30 [facility] Comment on above: Performed By: #### 7 77-3 #### ERICA HIGGINSER L ([id number]) [facility] ([facility]) [address] [place] [address] 31168 Glomerular filtration rate/1.73 sq M.predicted 41 mL/min/1.73m*2 Low >60 [facility] Comment on above: Result Comment: Calc ulations of estimated GFR are performed using the 2020 CKD-EPI Study Refit equation without the race variable for the IDMS-Traceable creatinine methods. https://jasn.asnjournals.org/content/early//ASN.07178 99884 Performed By: #### 7 77-3 #### ERICA RESTREPOMOTZER L ([id number]) [facility] ([facility]) [address] [place] [address] Glucose [Mass/Vol] 99 mg/dL Normal 74-99 [facility] Comment on above: Performed By: #### 7 77-3 #### ERICA RESTREPOMOTZER L ([id number]) [facility] ([facility]) [address] [place] [address] Phosphate [Mass/Vol] 4.9 mg/dL Normal 2.5-4.9 [facility] Comment on above: Result Comment: MODE RATE [...] By: #### 7 77-3 #### ERICA Tam ([id number]) [facility] ([facility]) [address] [place] [address] 46199 Potassium [Moles/Vol] 5.2 mmol/L Normal 3.5-5.3 [facility] Comment on above: Result Comment: MODE RATE HEMOLYSIS DETECTED. The result may be falsely elevated due to hemolysis or other interferents. Clinical correlation is recommended. Repeat testing may be considered. Performed By: #### 7 77-3 #### ERICA Tam ([id number]) [facility] ([facility]) [address] [place] [address] 53074 Sodium [Moles/Vol] 136 mmol/L Normal 136-145 [facility] Comment on above: Performed By: #### 7 77-3 #### ERICA Tam ([id number]) [facility] ([facility]) [address] [place] [address] 80548 Urea nitrogen [Mass/Vol] 39 mg/dL High 6-23 [facility] Comment on above: Performed By: #### 7 77-3 #### ERICA Tam ([id number]) [facility] ([facility]) [address] [place] [address] 99771 Glucose Test strip manual (B ld) [Mass/Vol]on 10-22-2023 Glucose [Mass/Vol] 246 mg/dL High 74-99 [facility] Comment on above: Performed By: #### 7 77-3 #### ERICA Tam ([id number]) [facility] ([facility]) [address] [place] [address] 74475 Glucose [Mass/Vol] 186 mg/dL High 74-99 [facility] Comment on above: Performed By: #### 7 77-3 #### ERICA Tam ([id number]) [facility] ([facility]) [address] [place] [address] Glucose [Mass/Vol] 213 mg/dL High 74-99 [facility] Comment on above: Performed By: #### 7 77-3 #### ERICA Tam ([id number]) [facility] ([facility]) [address] [place] [address] Glucose [Mass/Vol] 143 mg/dL High 74-99 [facility] Comment on above: Performed By: #### 7 77-3 #### ERICA Tam ([id number]) [facility] ([facility]) [address] [place] [address] 00549 Renal function 2000 panelon 10-22-2023 Albumin BCP dye [Mass/Vol] 3.3 g/dL Low 3.4-5.0 [facility] Comment on above: Performed By: #### 7 77-3 #### ERICA Tam ([id number]) [facility] ([facility]) [id number] [place] [address] 01159 Anion gap [Moles/Vol] 14 mmol/L Normal 10-20 [facility] Comment on above: Performed By: #### 7 77-3 #### ERICA Tam ([id number]) [facility] ([facility]) [address] [place] [address] 78978 Calcium [Mass/Vol] 8.8 mg/dL Normal 8.6-10.6 [facility] Comment on above: Performed By: #### 7 77-3 #### ERICA Tam ([id number]) [facility] ([facility]) [address] [place] [address] 10568 Chloride [Moles/Vol] 101 mmol/L Normal 98-107 [facility] Comment on above: Performed By: #### 7 77-3 #### ERICA Tam ([id number]) [facility] ([facility]) [address] [place] [address] 11707 CO2 [Moles/Vol] 23 mmol/L Normal 21-32 [facility] Comment on above: Performed By: #### 7 77-3 #### ERICA Tam ([id number]) [facility] ([facility]) [address] [place] [address] Creatinine [Mass/Vol] 1.75 mg/dL High 0.50-1.30 [facility] Comment on above: Performed By: #### 7 77-3 #### ERICA Tam ([id number]) [facility] ([facility]) [address] [place] [address] Glomerular filtration rate/1.73 sq M.predicted 42 mL/min/1.73m*2 Low >60 [facility] Comment on above: Result Comment: Calc ulations of estimated GFR are performed using the 2020 CKD-EPI Study Refit equation without the race variable for the IDMS-Traceable creatinine methods. https://jasn.asnjournals.org/content/early//ASN.96542 92430 Performed By: #### 7 77-3 #### ERICA MCDONALD L ([id number]) [facility] ([facility]) [address] [place] [address] Glucose [Mass/Vol] 214 mg/dL High 74-99 [facility] Comment on above: Performed By: #### 7 77-3 #### ERICA Tam ([id number]) [facility] ([facility]) [address] [place] [address] Phosphate [Mass/Vol] 4.3 mg/dL Normal 2.5-4.9 [facility] Comment on above: Result Comment: The performance characteristics of phosphorus testing in heparinized plasma have been validated by the individual laboratory site where testing is performed. Testing on heparinized plasma is not approved by the FDA; however, such approval is not necessary. Performed By: #### 7 77-3 #### ERICA MCDONALD L ([id number]) [facility] ([facility]) [address] [place] [address] Potassium [Moles/Vol] 4.1 mmol/L Normal 3.5-5.3 [facility] Comment on above: Performed By: #### 7 77-3 #### ERICA Tam ([id number]) [facility] ([facility]) [address] [place] [address] 83534 Sodium [Moles/Vol] 134 mmol/L Low 136-145 [facility] Comment on above: Performed By: #### 7 77-3 #### ERICA Tam ([id number]) [facility] ([facility]) [address] [place] [phone] Urea nitrogen [Mass/Vol] 38 mg/dL High 6-23 [facility] Comment on above: Performed By: #### 7 77-3 #### ERICA Tam ([id number]) [facility] ([facility]) [address] [place] [id number] Glucose Test strip manual (B ld) [Mass/Vol]on 10-21-2023 Glucose [Mass/Vol] 189 mg/dL High 74-99 [facility] Comment on above: Performed By: #### 3 274-8 #### ERICA Tam ([id number]) [facility] ([facility]) [address] [place] [address] 27711 Glucose [Mass/Vol] 258 mg/dL High 7499 [facility] Comment on above: Performed By: #### 3 274-8 #### ERICA Tam ([id number]) [facility] ([facility]) [address] [place] [address] 18004 Glucose [Mass/Vol] 392 mg/dL High 74-[address] [place] [address] Comment on above: Performed By: #### 3 274-8 #### ERICA Tam ([id number]) [facility] ([facility]) [address] [place] [address] 15479 Glucose [Mass/Vol] 254 mg/dL High -[address] [place] [address] Comment on above: Performed By: #### 3 274-8 #### ERICA Tam ([id number]) [facility] ([facility]) [address] [place] [address], [place] [address] Glucose [Mass/Vol] 296 mg/dL High 74-99 [facility] Comment on above: Performed By: #### 3 274-8 #### ERICA Tam ([id number]) [facility] ([facility]) [address] [place] [address] 67525 CBC panel Auto (Bld)on 10-19 Erythrocyte distribution width (RBC) [Ratio] 14.6 % High 11.5-14.5 [facility] Comment on above: Performed By: #### 3 274-8 #### ERICA Tam ([id number]) [facility] ([facility]) [address] [place] [address] 24765 Hematocrit (Bld) [Volume fraction] 34.7 % Low 41.0-52.0 [facility] Comment on above: Performed By: #### 3 274-8 #### ERICA Tam ([id number]) [facility] ([facility]) [address] [place] [address] 98818 Hemoglobin (Bld) [Mass/Vol] 11.2 g/dL Low 13.5-17.5 [facility] Comment on above: Performed By: #### 3 274-8 #### ERICA Tam ([id number]) [facility] ([facility]) [address] [place] [address] 56119 MCH (RBC) [Entitic mass] 28.9 pg Normal 26.0-34.0 [facility] Comment on above: Performed By: #### 3 274-8 #### ERICA Tam ([id number]) [facility] ([facility]) [address] [place] [address] 30319 MCHC (RBC) [Mass/Vol] 32.3 g/dL Normal 32.0-36.0 [facility] Comment on above: Performed By: #### 3 274-8 #### ERICA Tam ([id number]) [facility] ([facility]) [address] [place] [address] 16786 MCV (RBC) [Entitic vol] 89 fL Normal 80-100 [facility] Comment on above: Performed By: #### 3 274-8 #### ERICA Tam ([id number]) [facility] ([facility]) [address] [place] [address] 37288 Nucleated RBC/100 WBC (Bld) [Ratio] 0.0 /100 WBCs Normal 0.0-0.0 [facility] Comment on above: Performed By: #### 3 274-8 #### ERICA Tam ([id number]) [facility] ([facility]) [address] [place] [address] 52895 Platelets (Bld) [#/Vol] 293 x10*3/uL Normal 150-450 [facility] Comment on above: Performed By: #### 3 274-8 #### ERICA Tam ([id number]) [facility] ([facility]) [address] [place] [address] 17561 RBC (Bld) [#/Vol] 3.88 x10*6/uL Low 4.50-5.90 [facility] Comment on above: Performed By: #### 3 274-8 #### ERICA Tam ([id number]) [facility] ([facility]) [address] [place] [address] 66261 WBC (Bld) [#/Vol] 8.6 x10*3/uL Normal 4.4-11.3 [facility] Comment on above: Performed By: #### 3 274-8 #### ERICA Tam ([id number]) [facility] ([facility]) [address] [place] [address] 29896 Glucose Test strip manual (B ld) [Mass/Vol]on 10-20-2023 Glucose [Mass/Vol] 298 mg/dL High 7499 [facility] Comment on above: Performed By: #### 3 274-8 #### ERICA Tam ([id number]) [facility] ([facility]) [address] [place] [address] 42373 Glucose [Mass/Vol] 298 mg/dL High 74-99 [facility] Comment on above: Performed By: #### 3 274-8 #### ERICA Tam ([id number]) [facility] ([facility]) [address] [place] [address] 02382 Glucose [Mass/Vol] 294 mg/dL High -[address] [place] [address] Comment on above: Performed By: #### T HYDS #### ERICA Tam ([id number]) [facility] ([facility]) [address] [place] [address] 94711 Glucose [Mass/Vol] 173 mg/dL High -[address] [place] [address] Comment on above: Performed By: #### T HYDS #### ERICA aTm ([id number]) [facility] ([facility]) [address] [place] [address] 74611 Glucose [Mass/Vol] 146 mg/dL High [address] [place] [address] Comment on above: Performed By: #### T HYDS #### ERICA Tam ([id number]) [facility] ([facility]) [address] [place] [address] 85409 Magnesiumon 10-20-2023 Magnesium [Mass/Vol] 1.74 mg/dL Normal 1.60-2.40 [facility] Comment on above: Performed By: #### 3 274-8 #### ERICA Tam ([id number]) [facility] ([facility]) [address] [place] [address] 72480 Renal function 2000 panelon 10-20-2023 Albumin BCP dye [Mass/Vol] 3.3 g/dL Low 3.4-5.0 [facility] Comment on above: Performed By: #### 3 274-8 #### ERICA Tam ([id number]) [facility] ([facility]) [address] [place] [address] 87940 Anion gap [Moles/Vol] 11 mmol/L Normal 10-20 [facility] Comment on above: Performed By: #### 3 274-8 #### ERICA Tam ([id number]) [facility] ([facility]) [address] [place] [address] Calcium [Mass/Vol] 8.5 mg/dL Low 8.6-10.6 [facility] Comment on above: Performed By: #### 3 274-8 #### ERICA Tam ([id number]) [facility] ([facility]) [address] [place] [address] Chloride [Moles/Vol] 102 mmol/L Normal 98-107 [facility] Comment on above: Performed By: #### 3 274-8 #### ERICA MCDONALD L ([id number]) [facility] ([facility]) [address] [place] [address] CO2 [Moles/Vol] 25 mmol/L Normal 21-32 [facility] Comment on above: Performed By: #### 3 274-8 #### ERICA Tam ([id number]) [facility] ([facility]) [address] [place] [address] Creatinine [Mass/Vol] 1.89 mg/dL High 0.50-1.30 [facility] Comment on above: Performed By: #### 3 274-8 #### ERICA MCDONALD L ([id number]) [facility] ([facility]) [address] [place] [address] 43716 Glomerular filtration rate/1.73 sq M.predicted 38 mL/min/1.73m*2 Low >60 [facility] Comment on above: Result Comment: Calc ulations of estimated GFR are performed using the 2020 CKD-EPI Study Refit equation without the race variable for the IDMS-Traceable creatinine methods. https://jasn.asnjournals.org/content//ASN.45327 90485 Performed By: #### 3 274-8 #### ERICA MCDONALD L ([id number]) [facility] ([facility]) [address] [place] [address] Glucose [Mass/Vol] 323 mg/dL High 74-99 [facility] Comment on above: Performed By: #### 3 274-8 #### ERICA Tam ([id number]) [facility] ([facility]) [address] [place] [address] 21646 Phosphate [Mass/Vol] 3.0 mg/dL Normal 2.5-4.9 [facility] Comment on above: Result Comment: The performance characteristics of phosphorus testing in heparinized plasma have been validated by the individual laboratory site where testing is performed. Testing on heparinized plasma is not approved by the FDA; however, such approval is not necessary. Performed By: #### 3 274-8 #### ERICA Tam ([id number]) [facility] ([facility]) [address] [place] [address] 81811 Potassium [Moles/Vol] 3.9 mmol/L Normal 3.5-5.3 [facility] Comment on above: Performed By: #### 3 274-8 #### ERICA Tam ([id number]) [facility] ([facility]) [address] [place] [address] 24159 Sodium [Moles/Vol] 134 mmol/L Low 136-145 [facility] Comment on above: Performed By: #### 3 274-8 #### ERCIA Tam ([id number]) [facility] ([facility]) [address] [place] [address] 80692 Urea nitrogen [Mass/Vol] 31 mg/dL High 6-23 [facility] Comment on above: Performed By: #### 3 274-8 #### ERICA Tam ([id number]) [facility] ([facility]) [address] [place] [address] 65463 Glucose Test strip manual (B ld) [Mass/Vol]on 10-19-2023 Glucose [Mass/Vol] 355 mg/dL High 74-99 [facility] Comment on above: Performed By: #### T HYDS #### ERICA Tam ([id number]) [facility] ([facility]) [address] [place] [address] 07233 Glucose [Mass/Vol] 249 mg/dL High [address] [place] [address] Comment on above: Performed By: #### T HYDS #### ERICA Tam ([id number]) [facility] ([facility]) [address] [place] [address] 57227 Glucose [Mass/Vol] 274 mg/dL High [address] [place] [address] Comment on above: Performed By: #### T HYDS #### ERICA Tam ([id number]) [facility] ([facility]) [address] [place] [address] 86990 Glucose [Mass/Vol] 129 mg/dL High [address] [place] [address] Comment on above: Performed By: #### T HYDS #### ERICA Tam ([id number]) [facility] ([facility]) [address] [place] [address] 02188 Glucose [Mass/Vol] 121 mg/dL High [address] [place] [address] Comment on above: Performed By: #### T HYDS #### ERICA Tam ([id number]) [facility] ([facility]) [address] [place] [address] 20179 CBC panel Auto (Bld)on 10-17 Erythrocyte distribution width (RBC) [Ratio] 14.6 % High 11.5-14.5 [facility] Comment on above: Performed By: #### L IPIN #### ERICA Tam ([id number]) [facility] ([facility]) [address] [place] [address] 98685 Hematocrit (Bld) [Volume fraction] 34.3 % Low 41.0-52.0 [facility] Comment on above: Performed By: #### L IPIN #### ERICA Tam ([id number]) [facility] ([facility]) [address] [place] [address] 57845 Hemoglobin (Bld) [Mass/Vol] 10.7 g/dL Low 13.5-17.5 [facility] Comment on above: Performed By: #### L IPIN #### ERICA Tam ([id number]) [facility] ([facility]) [address] [place] [address] MCH (RBC) [Entitic mass] 28.7 pg Normal 26.0-34.0 [facility] Comment on above: Performed By: #### L IPIN #### ERICA Tam ([id number]) [facility] ([facility]) [address] [place] [address] 43773 MCHC (RBC) [Mass/Vol] 31.2 g/dL Low 32.0-36.0 [facility] Comment on above: Performed By: #### L IPIN #### ERICA Tam ([id number]) [facility] ([facility]) [address] [place] [address] 39953 MCV (RBC) [Entitic vol] 92 fL Normal 80-100 [facility] Comment on above: Performed By: #### L IPIN #### ERICA Tam ([id number]) [facility] ([facility]) [address] [place] [address] 68503 Nucleated RBC/100 WBC (Bld) [Ratio] 0.0 /100 WBCs Normal 0.0-0.0 [facility] Comment on above: Performed By: #### L IPIN #### ERICA Tam ([id number]) [facility] ([facility]) [address] [place] [address] 25565 Platelets (Bld) [#/Vol] 295 x10*3/uL Normal 150-450 [facility] Comment on above: Performed By: #### L IPIN #### ERICA Tam ([id number]) [facility] ([facility]) [address] [place] [address] 24741 RBC (Bld) [#/Vol] 3.73 x10*6/uL Low 4.50-5.90 [facility] Comment on above: Performed By: #### L IPIN #### ERICA Tam ([id number]) [facility] ([facility]) [address] [place] [address] 00770 WBC (Bld) [#/Vol] 7.2 x10*3/uL Normal 4.4-11.3 [facility] Comment on above: Performed By: #### L IPIN #### ERICA Tam ([id number]) [facility] ([facility]) [address] [place] [address] 49674 Glucose Test strip manual (B ld) [Mass/Vol]on 10-18-2023 Glucose [Mass/Vol] 169 mg/dL High [address] [place] [address] Comment on above: Performed By: #### T HYDS #### ERICA Tam ([id number]) [facility] ([facility]) [address] [place] [address] 73948 Glucose [Mass/Vol] 238 mg/dL High [address] [place] [address] Comment on above: Performed By: #### L IPIN #### ERICA Tam ([id number]) [facility] ([facility]) [address] [place] [address] 22407 Glucose [Mass/Vol] 251 mg/dL High [address] [place] [address] Comment on above: Performed By: #### L IPIN #### ERICA Tam ([id number]) [facility] ([facility]) [address] [place] [address] 76972 Glucose [Mass/Vol] 191 mg/dL High [address] [place] [address] Comment on above: Performed By: #### L IPIN #### ERICA Tam ([id number]) [facility] ([facility]) [address] [place] [address] 97922 Heparin.unfractionatedon Heparin unfractionated Chromogenic method Qn (PPP) 0.4 IU/mL Normal See Comment Below for Therapeutic Ranges [facility] Comment on above: Order Comment: [...] please refer to local Pharmacy and the [facility] Guidelines for Anticoagulation Therapy available on the [facility] intranet at: [email or web address] Performed By: #### L IPIN #### ERICA Tam ([id number]) [facility] ([facility]) [address] [place] [address] 51563 Magnesiumon 10-18-2023 Magnesium [Mass/Vol] 1.77 mg/dL Normal 1.60-2.40 [facility] Comment on above: Performed By: #### L IPIN #### ERICA Tam ([id number]) [facility] ([facility]) [address] [place] [address] 90256 Renal function 2000 panelon 10-18-2023 Albumin BCP dye [Mass/Vol] 3.3 g/dL Low 3.4-5.0 [facility] Comment on above: Performed By: #### T HYDS #### ERICA Tam ([id number]) [facility] ([facility]) [address] [place] [address] 42122 Anion gap [Moles/Vol] 12 mmol/L Normal 10-20 [facility] Comment on above: Performed By: #### T HYDS #### ERICA Tam ([id number]) [facility] ([facility]) [address] [place] [address] 33920 Calcium [Mass/Vol] 8.5 mg/dL Low 8.6-10.6 [facility] Comment on above: Performed By: #### T HYDS #### ERICA Tam ([id number]) [facility] ([facility]) [address] [place] [address] 74998 Chloride [Moles/Vol] 103 mmol/L Normal 98-107 [facility] Comment on above: Performed By: #### T HYDS #### ERICA Tam ([id number]) [facility] ([facility]) [address] [place] [address] CO2 [Moles/Vol] 26 mmol/L Normal 21-32 [facility] Comment on above: Performed By: #### T HYDS #### ERICA Tam ([id number]) [facility] ([facility]) [address] [place] [address] Creatinine [Mass/Vol] 1.58 mg/dL High 0.50-1.30 [facility] Comment on above: Performed By: #### T HYDS #### ERICA Tam ([id number]) [facility] ([facility]) [address] [place] [address] Glomerular filtration rate/1.73 sq M.predicted 47 mL/min/1.73m*2 Low >60 [facility] Comment on above: Result Comment: Calc ulations of estimated GFR are performed using the 2020 CKD-EPI Study Refit equation without the race variable for the IDMS-Traceable creatinine methods. https://jasn.asnjournals.org/content/early/ASN.80601 61468 Performed By: #### T HYDS #### ERICA Tam ([id number]) [facility] ([facility]) [address] [place] [address] Glucose [Mass/Vol] 220 mg/dL High 74-99 [facility] Comment on above: Performed By: #### T HYDS #### ERICA Tam ([id number]) [facility] ([facility]) [address] [place] [address] Phosphate [Mass/Vol] 2.8 mg/dL Normal 2.5-4.9 [facility] Comment on above: Result Comment: The performance characteristics of phosphorus testing in heparinized plasma have been validated by the individual laboratory site where testing is performed. Testing on heparinized plasma is not approved by the FDA; however, such approval is not necessary. Performed By: #### T HYDS #### ERICA Tam ([id number]) [facility] ([facility]) [address] [place] [address] 22333 Potassium [Moles/Vol] 4.1 mmol/L Normal 3.5-5.3 [facility] Comment on above: Performed By: #### T HYDS #### ERICA Tam ([id number]) [facility] ([facility]) [address] [place] [address] 91864 Sodium [Moles/Vol] 137 mmol/L Normal 136-145 [facility] Comment on above: Performed By: #### T HYDS #### ERICA Tam ([id number]) [facility] ([facility]) [address] [place] [address] 25468 Urea nitrogen [Mass/Vol] 25 mg/dL High 6-23 [facility] Comment on above: Performed By: #### T HYDS #### ERICA Tam ([id number]) [facility] ([facility]) [address] [place] [address] 65592 CBC panel Auto (Bld)on 10-16 Erythrocyte distribution width (RBC) [Ratio] 14.5 % Normal 11.5-14.5 [facility] Comment on above: Performed By: #### 2 4323-8 #### ERICA Tam ([id number]) [facility] ([facility]) [address] [place] [address] 13465 Hematocrit (Bld) [Volume fraction] 35.2 % Low 41.0-52.0 [facility] Comment on above: Performed By: #### 2 4323-8 #### ERICA Tam ([id number]) [facility] ([facility]) [address] [place] [address] 72861 Hemoglobin (Bld) [Mass/Vol] 11.1 g/dL Low 13.5-17.5 [facility] Comment on above: Performed By: #### 2 4323-8 #### ERICA Tam ([id number]) [facility] ([facility]) [address] [place] [address] 39869 MCH (RBC) [Entitic mass] 29.1 pg Normal 26.0-34.0 [facility] Comment on above: Performed By: #### 2 4323-8 #### ERICA Tam ([id number]) [facility] ([facility]) [address] [place] [address] 43839 MCHC (RBC) [Mass/Vol] 31.5 g/dL Low 32.0-36.0 [facility] Comment on above: Performed By: #### 2 4323-8 #### ERICA Tam ([id number]) [facility] ([facility]) [id number] [place] [address] 57801 MCV (RBC) [Entitic vol] 92 fL Normal 80-100 [facility] Comment on above: Performed By: #### 2 4323-8 #### ERICA Tam ([id number]) [facility] ([facility]) [address] [place] [address] 48756 Nucleated RBC/100 WBC (Bld) [Ratio] 0.0 /100 WBCs Normal 0.0-0.0 [facility] Comment on above: Performed By: #### 2 4323-8 #### ERICA Tam ([id number]) [facility] ([facility]) [address] [place] [address] 50373 Platelets (Bld) [#/Vol] 316 x10*3/uL Normal 150-450 [facility] Comment on above: Performed By: #### 2 4323-8 #### ERICA Tam ([id number]) [facility] ([facility]) [address] [place] [address] 57957 RBC (Bld) [#/Vol] 3.82 x10*6/uL Low 4.50-5.90 [facility] Comment on above: Performed By: #### 2 4323-8 #### ERICA Tam ([id number]) [facility] ([facility]) [address] [place] [address] 62575 WBC (Bld) [#/Vol] 8.6 x10*3/uL Normal 4.4-11.3 [facility] Comment on above: Performed By: #### 2 4323-8 #### ERICA Tam ([id number]) [facility] ([facility]) [address] [place] [address] 38457 Glucose Test strip manual (B ld) [Mass/Vol]on 10-17-2023 Glucose [Mass/Vol] 217 mg/dL High [address] [place] [address] Comment on above: Performed By: #### L IPIN #### ERICA Tam ([id number]) [facility] ([facility]) [address] [place] [address] [phone] Glucose [Mass/Vol] 271 mg/dL High [address] [place] [address] Comment on above: Performed By: #### 2 4323-8 #### ERICA Tam ([id number]) [facility] ([facility]) [address] [place] [address] [phone] Glucose [Mass/Vol] 189 mg/dL High [address] [place] [address] Comment on above: Performed By: #### 2 4323-8 #### ERICA Tam ([id number]) [facility] ([facility]) [address] [place] [address] [phone] Glucose [Mass/Vol] 256 mg/dL High [address] [place] [address] Comment on above: Performed By: #### 2 4323-8 #### ERICA Tam ([id number]) [facility] ([facility]) [address] [place] [address] [phone] Glucose [Mass/Vol] 176 mg/dL High [address] [place] [address] Comment on above: Performed By: #### 1 4979-9 #### ERICA Tam ([id number]) [facility] ([facility]) [address] [place] [phone] Heparin.unfractionatedon Heparin unfractionated Chromogenic method Qn (PPP) 0.3 IU/mL Normal See Comment Below for Therapeutic Ranges [facility] Comment on above: Order Comment: [...] please refer to local Pharmacy and the [facility] Guidelines for Anticoagulation Therapy available on the [facility] intranet at: [email or web address] Performed By: #### 2 4323-8 #### ERICA Tam ([id number]) [facility] ([facility]) [address] [place] [address] Heparin unfractionated Chromogenic method Qn (PPP) 0.5 IU/mL Normal See Comment Below for Therapeutic Ranges [facility] Comment on above: Order Comment: [...] please refer to local Pharmacy and the [facility] Guidelines for Anticoagulation Therapy available on the [facility] intranet at: [email or web address] Performed By: #### 2 4323-8 #### ERICA Tam ([id number]) [facility] ([facility]) [address] [place] [address] 90903 Heparin unfractionated Chromogenic method Qn (PPP) 0.2 IU/mL Normal See Comment Below for Therapeutic Ranges [facility] Comment on above: Order Comment: Prior to initiating heparin if not obtained in prior 48 hours. Nursing to release order. The APTT is no longer used for monitoring Unfractionated Heparin Therapy. For monitoring Heparin Therapy, use the Heparin Assay. Performed By: #### 1 4979-9 #### ERICA Tam ([id number]) [facility] ([facility]) [address] [place] [address] 56652 Magnesiumon 10-17-2023 Magnesium [Mass/Vol] 1.94 mg/dL Normal 1.60-2.40 [facility] Comment on above: Performed By: #### L IPIN #### ERICA Tam ([id number]) [facility] ([facility]) [address] [place] [address] 06897 Renal function 2000 panelon 10-17-2023 Albumin BCP dye [Mass/Vol] 3.1 g/dL Low 3.4-5.0 [facility] Comment on above: Performed By: #### L IPIN #### ERICA Tam ([id number]) [facility] ([facility]) [address] [place] [address] 32764 Anion gap [Moles/Vol] 9 mmol/L Low 10-20 [facility] Comment on above: Performed By: #### L IPIN #### ERICA Tam ([id number]) [facility] ([facility]) [address] [place] [address] 79486 Calcium [Mass/Vol] 8.2 mg/dL Low 8.6-10.6 [facility] Comment on above: Performed By: #### L IPIN #### ERICA Tam ([id number]) [facility] ([facility]) [address] [place] [address] 15207 Chloride [Moles/Vol] 104 mmol/L Normal 98-107 [facility] Comment on above: Performed By: #### L IPIN #### ERICA Tam ([id number]) [facility] ([facility]) [address] [place] [address] 71783 CO2 [Moles/Vol] 28 mmol/L Normal 21-32 [facility] Comment on above: Performed By: #### L IPIN #### ERICA Tam ([id number]) [facility] ([facility]) [address] [place] [address] 65776 Creatinine [Mass/Vol] 1.35 mg/dL High 0.50-1.30 [facility] Comment on above: Performed By: #### L IPIN #### ERICA Tam ([id number]) [facility] ([facility]) [address] [place] [address] 83983 Glomerular filtration rate/1.73 sq M.predicted 57 mL/min/1.73m*2 Low >60 [facility] Comment on above: Result Comment: Calc ulations of estimated GFR are performed using the 2020 CKD-EPI Study Refit equation without the race variable for the IDMS-Traceable creatinine methods. https://jasn.asnjournals.org/content/early/ASN.55896 58398 Performed By: #### L IPIN #### ERICA Tam ([id number]) [facility] ([facility]) [address] [place] [address] 78886 Glucose [Mass/Vol] 274 mg/dL High 74-99 [facility] Comment on above: Performed By: #### L IPIN #### ERICA Tam ([id number]) [facility] ([facility]) [address] [place] [address] 80402 Phosphate [Mass/Vol] 2.5 mg/dL Normal 2.5-4.9 [facility] Comment on above: Result Comment: The performance characteristics of phosphorus testing in heparinized plasma have been validated by the individual laboratory site where testing is performed. Testing on heparinized plasma is not approved by the FDA; however, such approval is not necessary. Performed By: #### L IPIN #### ERICA Tam ([id number]) [facility] ([facility]) [address] [place] [address] Potassium [Moles/Vol] 4.3 mmol/L Normal 3.5-5.3 [facility] Comment on above: Performed By: #### L IPIN #### ERICA Tam ([id number]) [facility] ([facility]) [address] [place] [address] 65069 Sodium [Moles/Vol] 137 mmol/L Normal 136-145 [facility] Comment on above: Performed By: #### L IPIN #### ERICA Tam ([id number]) [facility] ([facility]) [address] [place] [address] 01496 Urea nitrogen [Mass/Vol] 27 mg/dL High 6-23 [facility] Comment on above: Performed By: #### L IPIN #### ERICA Tam ([id number]) [facility] ([facility]) [address] [place] [address] 70477 [facility] US ANKLE BRACHIAL INDEX (LUCIO) WITHOUT EXERCISEon 10-17-2023 [facility] US ANKLE BRACHIAL INDEX (LUCIO) WITHOUT EXERCISE [address] [address] and Vascular Lab Report [facility] US ANKLE BRACHIAL INDEX (LUCIO) WITHOUT EXERCISE Patient Name: ITALIA Alfaro Physician: [id number] Marshal Nolan MD Study Date: 10/17/2023 Ordering [id number] RU Mina Physician: CUATE MRN/PID: [id number] Technologist: Sandy Smith [facility] Technologist 2: Date of /Age: 5 1955 years Gender: M Admission Status: Inpatient Location [facility] Performed: Diagnosis/ICD: Peripheral vascular disease, unspecified-I73.9 CPT Codes: 43614 Peripheral artery LUCIO Only CONCLUSIONS: Right Lower [...] Left Brachial Pressure 155 mmHg 149 mmHg [id number] Nolan MD Final Normal [facility] US CAROTID ARTERY DUPLE X BILATERALon 10-17-2023 VAS US CAROTID ARTERY DUPLEX BILATERAL [place] [address] and Vascular Lab Report [facility] US CAROTID ARTERY DUPLEX BILATERAL Patient Name: TIALIA Alfaro Physician: Myriam Nolan MD Study Date: 10/17/2023 Ordering [id number] RU Mina Physician: CUATE MRN/PID: [id number] Technologist: Gallito HARTMANN Technologist 2: Date of /Age: 5 1955 years Gender: M Admission Status: Inpatient Location [facility] Performed: Diagnosis/ICD: Encounter for preprocedural cardiovascular examination-Z01.810 Indication: Pre-Op CABG CPT Codes: 62433 Cerebrovascular Carotid Duplex scan complete Patient History [...] cm/s Right Left ICA/CCA Ratio 0.0 1.3 [id number] Nolan MD Final [facility] US LOWER EXTREMITY VEIN MAPPING BILATERALon 10-17-2023 [facility] US LOWER EXTREMITY VEIN MAPPING BILATERAL [place] [address] and Vascular Lab Report [facility] US LOWER EXTREMITY VEIN MAPPING BILATERAL Patient Name: ITALIA ALLEN Angelina Physician: [id number] Nolan MD Study Date: 10/17/2023 Ordering [id number] RU Mina Physician: CUATE MRN/PID: [id number] Technologist: Gallito Marie [facility] Technologist 2: Date of /Age: 5 1955 years Gender: M Admission Status: Inpatient Location [facility] Performed: Diagnosis/ICD: Encounter for preprocedural cardiovascular examination-Z01.810 Indication: Pre-operative exam CPT Codes: 58440 Vein mapping complete Patient History CAD. CONCLUSIONS: [...] Dist Calf GSV Yes None 1.0 mm [id number] Marshal Nolan MD Final Normal [facility] CBC panel Auto (Bld)on 10-15 Erythrocyte distribution width (RBC) [Ratio] 14.4 % Normal 11.5-14.5 [facility] Comment on above: Performed By: #### 1 4979-9 #### ERICA Tam ([id number]) [facility] ([facility]) [address] [place] [address] 05072 Hematocrit (Bld) [Volume fraction] 33.4 % Low 41.0-52.0 [facility] Comment on above: Performed By: #### 1 4979-9 #### ERICA Tam ([id number]) [facility] ([facility]) [address] [place] [address] 68183 Hemoglobin (Bld) [Mass/Vol] 10.5 g/dL Low 13.5-17.5 [facility] Comment on above: Performed By: #### 1 4979-9 #### ERICA Tam ([id number]) [facility] ([facility]) [address] [place] [address] 79169 MCH (RBC) [Entitic mass] 28.5 pg Normal 26.0-34.0 [facility] Comment on above: Performed By: #### 1 4979-9 #### ERICA Tam ([id number]) [facility] ([facility]) [address] [place] [address] MCHC (RBC) [Mass/Vol] 31.4 g/dL Low 32.0-36.0 [facility] Comment on above: Performed By: #### 1 4979-9 #### ERICA Tam ([id number]) [facility] ([facility]) [address] [place] [address] 23120 MCV (RBC) [Entitic vol] 91 fL Normal 80-100 [facility] Comment on above: Performed By: #### 1 4979-9 #### ERICA Tam ([id number]) [facility] ([facility]) [address] [place] [address] 66982 Nucleated RBC/100 WBC (Bld) [Ratio] 0.0 /100 WBCs Normal 0.0-0.0 [facility] Comment on above: Performed By: #### 1 4979-9 #### ERICA Tam ([id number]) [facility] ([facility]) [address] [place] [address] 23798 Platelets (Bld) [#/Vol] 283 x10*3/uL Normal 150-450 [facility] Comment on above: Performed By: #### 1 4979-9 #### ERICA MCDONALD L ([id number]) [facility] ([facility]) [address] [place] [address] 56596 RBC (Bld) [#/Vol] 3.69 x10*6/uL Low 4.50-5.90 [facility] Comment on above: Performed By: #### 1 4979-9 #### ERICA MCDONALD L ([id number]) [facility] ([facility]) [address] [place] [address] 45938 WBC (Bld) [#/Vol] 8.2 x10*3/uL Normal 4.4-11.3 [facility] Comment on above: Performed By: #### 1 4979-9 #### ERICA Tam ([id number]) [facility] ([facility]) [address] [place] [address] 26377 Erythrocyte distribution width (RBC) [Ratio] 14.6 % High 11.5-14.5 [facility] Comment on above: Performed By: #### 5 8410-2 #### ERICA Tam ([id number]) [facility] ([facility]) [address] [place] [address] 55607 Hematocrit (Bld) [Volume fraction] 35.2 % Low 41.0-52.0 [facility] Comment on above: Performed By: #### 5 8410-2 #### ERICA Tam ([id number]) [facility] ([facility]) [address] [place] [address] 71660 Hemoglobin (Bld) [Mass/Vol] 11.4 g/dL Low 13.5-17.5 [facility] Comment on above: Performed By: #### 5 8410-2 #### ERICA Tam ([id number]) [facility] ([facility]) [address] [place] [address] 46758 MCH (RBC) [Entitic mass] 29.3 pg Normal 26.0-34.0 [facility] Comment on above: Performed By: #### 5 8410-2 #### ERICA Tam ([id number]) [facility] ([facility]) [address] [place] [address] 16541 MCHC (RBC) [Mass/Vol] 32.4 g/dL Normal 32.0-36.0 [facility] Comment on above: Performed By: #### 5 8410-2 #### ERICA Tam ([id number]) [facility] ([facility]) [address] [place] [address] 70867 MCV (RBC) [Entitic vol] 91 fL Normal 80-100 [facility] Comment on above: Performed By: #### 5 8410-2 #### ERICA Tam ([id number]) [facility] ([facility]) [address] [place] [address] 46617 Nucleated RBC/100 WBC (Bld) [Ratio] 0.0 /100 WBCs Normal 0.0-0.0 [facility] Comment on above: Performed By: #### 5 8410-2 #### ERICA Tam ([id number]) [facility] ([facility]) [address] [place] [address] 37465 Platelets (Bld) [#/Vol] 285 x10*3/uL Normal 150-450 [facility] Comment on above: Performed By: #### 5 8410-2 #### ERICA Tam ([id number]) [facility] ([facility]) [address] [place] [address] 26855 RBC (Bld) [#/Vol] 3.89 x10*6/uL Low 4.50-5.90 [facility] Comment on above: Performed By: #### 5 8410-2 #### ERICA Tam ([id number]) [facility] ([facility]) [address] [place] [address] 66022 WBC (Bld) [#/Vol] 9.3 x10*3/uL Normal 4.4-11.3 [facility] Comment on above: Performed By: #### 5 8410-2 #### ERICA Tam ([id number]) [facility] ([facility]) [address] [place] [address] 15524 Coagulation surface inducedo n 10-16-2023 aPTT Coag (PPP) [Time] 30 s Normal 27-38 [facility] Comment on above: Order Comment: Prior to initiating heparin if not obtained in prior 48 hours. Nursing to release order. The APTT is no longer used for monitoring Unfractionated Heparin Therapy. For monitoring Heparin Therapy, use the Heparin Assay. Performed By: #### 1 4979-9 #### ERICA Tam ([id number]) [facility] ([facility]) [address] [place] [address] 09710 Coagulation tissue factor in ducedon 10-16-2023 PT Coag (PPP) [Time] 12.5 s Normal 9.8-12.8 [facility] Comment on above: Order Comment: If val monroe has not had PT + INR in the last 24 hours. Nursing to release order. Performed By: #### 5 902-2 #### ERICA Tam ([id number]) [facility] ([facility]) [address] [place] [address] 56109 Cobalaminson 10-16-2023 Cobalamin (Vitamin B12) [Mass/Vol] 201 pg/mL Low 211-911 [facility] Comment on above: Performed By: #### 5 902-2 #### ERICA Tam ([id number]) [facility] ([facility]) [address] [place] [address] 55949 Comprehensive metabolic 2000 panelon 10-16-2023 Albumin BCP dye [Mass/Vol] 3.3 g/dL Low 3.4-5.0 [facility] Comment on above: Performed By: #### 2 4323-8 #### ERICA Tam ([id number]) [facility] ([facility]) [address] [place] [address] 33405 ALP [Catalytic activity/Vol] 58 U/L Normal 33-136 [facility] Comment on above: Performed By: #### 2 4323-8 #### ERICA Tam ([id number]) [facility] ([facility]) [address] [place] [address] 28816 ALT With P-5'-P [Catalytic activity/Vol] 15 U/L Normal 10-52 [facility] Comment on above: Result Comment: Criselda ents treated with Sulfasalazine may generate falsely decreased results for ALT. Performed By: #### 2 4323-8 #### ERICA Tam ([id number]) [facility] ([facility]) [address] [place] [address] Anion gap [Moles/Vol] 13 mmol/L Normal 10-20 [facility] Comment on above: Performed By: #### 2 4323-8 #### ERICA Tam ([id number]) [facility] ([facility]) [address] [place] [address] 40410 AST With P-5'-P [Catalytic activity/Vol] 14 U/L Normal 9-39 [facility] Comment on above: Result Comment: MILD HEMOLYSIS DETECTED. The result may be falsely elevated due to hemolysis or other interferents. Clinical correlation is recommended. Repeat testing may be considered. Performed By: #### 2 4323-8 #### ERICA Tam ([id number]) [facility] ([facility]) [address] [place] [address] 03337 Bilirubin [Mass/Vol] 0.4 mg/dL Normal 0.0-1.2 [facility] Comment on above: Performed By: #### 2 4323-8 #### ERICA MCDONALD L ([id number]) [facility] ([facility]) [address] [place] [address] 52339 Calcium [Mass/Vol] 8.3 mg/dL Low 8.6-10.6 [facility] Comment on above: Performed By: #### 2 4323-8 #### ERICA MCDONALD L ([id number]) [facility] ([facility]) [address] [place] [address] 95276 Chloride [Moles/Vol] 102 mmol/L Normal 98-107 [facility] Comment on above: Performed By: #### 2 4323-8 #### ERICA RESTREPOMOTZER L ([id number]) [facility] ([facility]) [address] [place] [address] 95723 CO2 [Moles/Vol] 26 mmol/L Normal 21-32 [facility] Comment on above: Performed By: #### 2 4323-8 #### ERICA MCDONALD L ([id number]) [facility] ([facility]) [address] [place] [address] 21039 Creatinine [Mass/Vol] 1.64 mg/dL High 0.50-1.30 [facility] Comment on above: Performed By: #### 2 4323-8 #### ERICA RESTREPOMOTZLUZ L ([id number]) [facility] ([facility]) [address] [place] [address] Glomerular filtration rate/1.73 sq M.predicted 45 mL/min/1.73m*2 Low >60 [facility] Comment on above: Result Comment: Calc ulations of estimated GFR are performed using the 2020 CKD-EPI Study Refit equation without the race variable for the IDMS-Traceable creatinine methods. https://jasn.asnjournals.org/content//ASN.76791 06147 Performed By: #### 2 4323-8 #### ERICA Tam ([id number]) [facility] ([facility]) [address] [place] [address] 21913 Glucose [Mass/Vol] 173 mg/dL High 74-99 [facility] Comment on above: Performed By: #### 2 4323-8 #### ERICA MCDONALD L ([id number]) [facility] ([facility]) [address] [place] [address] 03522 Potassium [Moles/Vol] 4.3 mmol/L Normal 3.5-5.3 [facility] Comment on above: Result Comment: MILD HEMOLYSIS DETECTED. The result may be falsely elevated due to hemolysis or other interferents. Clinical correlation is recommended. Repeat testing may be considered. Performed By: #### 2 4323-8 #### ERICA MCDONALD L ([id number]) [facility] ([facility]) [address] [place] [address] 28457 Protein [Mass/Vol] 5.6 g/dL Low 6.4-8.2 [facility] Comment on above: Performed By: #### 2 4323-8 #### ERICA RESTREPOMOTZER L ([id number]) [facility] ([facility]) [address] [place] [address] 89019 Sodium [Moles/Vol] 137 mmol/L Normal 136-145 [facility] Comment on above: Performed By: #### 2 4323-8 #### ERICA RESTREPOMOTZER L ([id number]) [facility] ([facility]) [address] [place] [address] 07228 Urea nitrogen [Mass/Vol] 33 mg/dL High 6-23 [facility] Comment on above: Performed By: #### 2 4323-8 #### ERICA Tam ([id number]) [facility] ([facility]) [address] [place] [address] 81383 ECG 12-LEADon 10-16-2023 ECG 12-LEAD Ventricular Rate 85 Atrial Rate 85 P-R Interval 196 QRS Duration 100 Q-T Interval 392 QTC Calculation(Bazett) 466 P [place] 40 R [place] 54 T [place] 51 QRS Count 14 Q Onset 222 P Onset 124 P Offset 185 T Offset 418 QTC Fredericia 440 Diagnosis Normal sinus rhythm Prolonged QT Abnormal ECG No previous ECGs available Confirmed by Mark Kennedy ([id number]) on 10/16/2023 5:14:12 PM Normal [facility] Ferritinon 10-16-2023 Ferritin [Mass/Vol] 184 ng/mL Normal 20-300 [facility] Comment on above: Performed By: #### 5 902-2 #### ERICA Tam ([id number]) [facility] ([facility]) [address] [place] [address] 39898 Folateon 10-16-2023 Folate [Mass/Vol] 10.0 ng/mL Normal >5.0 [facility] Comment on above: Order Comment: If val monroe has not had PT + INR in the last 24 hours. Nursing to release order. Performed By: #### 5 902-2 #### ERICA Tam ([id number]) [facility] ([facility]) [address] [place] [address] 46126 Gas and Carbon monoxide pane l (BldA)on 10-16-2023 Base excess Calc (Bld) [Moles/Vol] -0.5000 mmol/L Normal -2.0-3.0 [facility] Comment on above: Performed By: #### 1 4979-9 #### ERICA Tam ([id number]) [facility] ([facility]) [address] [place] [address] 88002 Carboxyhemoglobin (BldA) [Mass fraction] 3.1 % Normal [facility] Comment on above: Result Comment: Ref Values Non-Smokers 0.5-1.5% Smokers 0.5-10.0% Performed By: #### 1 4979-9 #### ERICA Tam ([id number]) [facility] ([facility]) [address] [place] [address] 73049 CO2 (Bld) [Partial pressure] 39 mm Hg Normal 38-42 [facility] Comment on above: Performed By: #### 1 4979-9 #### ERICA Tam ([id number]) [facility] ([facility]) [address] [place] [address] 91754 Deoxyhemoglobin (BldA) [Mass fraction] 4.8 % Normal 0.0-5.0 [facility] Comment on above: Performed By: #### 1 4979-9 #### ERICA Tam ([id number]) [facility] ([facility]) [address] [place] [address] 20978 HCO3 (Bld) [Moles/Vol] 24.2 mmol/L Normal 22.0-26.0 [facility] Comment on above: Performed By: #### 1 4979-9 #### ERICA Tam ([id number]) [facility] ([facility]) [address] [place] [address] 75472 Hemoglobin (Bld) [Mass/Vol] 11.3 g/dL Low 13.5-17.5 [facility] Comment on above: Performed By: #### 1 4979-9 #### ERICA Tam ([id number]) [facility] ([facility]) [address] [place] [address] 79123 Methemoglobin (BldA) [Mass fraction] 0.0 % Normal 0.0-1.5 [facility] Comment on above: Performed By: #### 1 4979-9 #### ERICA Tam ([id number]) [facility] ([facility]) [id number] [place] [phone] Oxygen (Bld) [Partial pressure] 67 mm Hg Low 85-95 [facility] Comment on above: Performed By: #### 1 4979-9 #### ERICA Tam ([id number]) [facility] ([facility]) [address] [place] [id number] Oxyhemoglobin (BldA) [Mass fraction] 92.2 % Low 94.0-98.0 [facility] Comment on above: Performed By: #### 1 4979-9 #### ERICA Tam ([id number]) [facility] ([facility]) [address] [place] [address]26 pH (Bld) 7.40 [pH] Normal 7.38-7.42 [facility] Comment on above: Performed By: #### 1 4979-9 #### ERICA Tam ([id number]) [facility] ([facility]) [address] [place] [address] [phone] Glucose Test strip manual (B ld) [Mass/Vol]on 10-16-2023 Glucose [Mass/Vol] 151 mg/dL High 74-99 [facility] Comment on above: Performed By: #### 1 4979-9 #### ERICA Tam ([id number]) [facility] ([facility]) [address] [place] [address] 81391 Glucose [Mass/Vol] 261 mg/dL High [address] [place] [address] Comment on above: Performed By: #### 1 4979-9 #### ERICA Tam ([id number]) [facility] ([facility]) [address] [place] [address] 08165 Glucose [Mass/Vol] 170 mg/dL High -[address] [place] [address] Comment on above: Performed By: #### 5 902-2 #### ERICA Tam ([id number]) [facility] ([facility]) [address] [place] [address] 51390 HbA1c (Bld) [Mass fraction]o n 10-16-2023 Average glucose Estimated from glycated hemoglobin (Bld) [Mass/Vol] 148 mg/dL Normal Not Established [facility] Comment on above: Order Comment: If val monroe has not had PT + INR in the last 24 hours. Nursing to release order. Performed By: #### 5 902-2 #### ERICA Tam ([id number]) [facility] ([facility]) [address] [place], [place] [address] Hemoglobin A1c/Hemoglobin.to guero 10-16-2023 HbA1c (Bld) [Mass fraction] 6.8 % High see below [facility] Comment on above: Order Comment: If val monroe has not had PT + INR in the last 24 hours. Nursing to release order. Performed By: #### 5 902-2 #### ERICA Tam ([id number]) [facility] ([facility]) [address] [place], [place] [address] Heparin.unfractionatedon Heparin unfractionated Chromogenic method Qn (PPP) 0.3 IU/mL Normal See Comment Below for Therapeutic Ranges [facility] Comment on above: Order Comment: Prior to initiating heparin if not obtained in prior 48 hours. Nursing to release order. The APTT is no longer used for monitoring Unfractionated Heparin Therapy. For monitoring Heparin Therapy, use the Heparin Assay. Performed By: #### 1 4979-9 #### ERICA Tam ([id number]) [facility] ([facility]) [address] [place] [address] Heparin unfractionated Chromogenic method Qn (PPP) 0.2 IU/mL Normal See Comment Below for Therapeutic Ranges [facility] Comment on above: Order Comment: Prior to initiating heparin if not obtained in prior 48 hours. Nursing to release order. The APTT is no longer used for monitoring Unfractionated Heparin Therapy. For monitoring Heparin Therapy, use the Heparin Assay. Performed By: #### 1 4979-9 #### ERICA Tam ([id number]) [facility] ([facility]) [address] [place], [place] [address] Heparin unfractionated Chromogenic method Qn (PPP) 0.1 IU/mL Normal See Comment Below for Therapeutic Ranges [facility] Comment on above: Order Comment: If val monroe has not had PT + INR in the last 24 hours. Nursing to release order. Performed By: #### 5 902-2 #### ERICA Tam ([id number]) [facility] ([facility]) [address] [place] [address] 14974 Heparin unfractionated Chromogenic method Qn (PPP) 0.1 IU/mL Normal See Comment Below for Therapeutic Ranges [facility] Comment on above: Order Comment: [...] please refer to local Pharmacy and the [facility] Guidelines for Anticoagulation Therapy available on the [facility] intranet at: [email or web address] Performed By: #### 3 274-8 #### ERICA Tam ([id number]) [facility] ([facility]) [address] [place] [address] 78775 Iron and Iron binding capaci ty panelon 10-16-2023 Iron [Mass/Vol] 33 ug/dL Low 35-150 [facility] Comment on above: Result Comment: MILD HEMOLYSIS DETECTED. The result may be falsely elevated due to hemolysis or other interferents. Clinical correlation is recommended. Repeat testing may be considered. Performed By: #### 5 902-2 #### ERICA Tam ([id number]) [facility] ([facility]) [address] [place] [address] Iron binding capacity [Mass/Vol] 285 ug/dL Normal 240-445 [facility] Comment on above: Performed By: #### 5 902-2 #### ERICA Tam ([id number]) [facility] ([facility]) [address] [place] [address] Iron binding capacity.unsaturated [Mass/Vol] 252 ug/dL Normal 110-370 [facility] Comment on above: Performed By: #### 5 902-2 #### ERICA Tam ([id number]) [facility] ([facility]) [address] [place] [address] Iron saturation [Mass fraction] 12 % Low 25-45 [facility] Comment on above: Performed By: #### 5 902-2 #### ERICA Tam ([id number]) [facility] ([facility]) [address] [place] [address] 24593 LIPID PANEL NON-FASTINGon Cholesterol [Mass/Vol] 114 mg/dL Normal 0-199 Un [facility] Comment on above: Result Comment: Age [...] By: #### L IPIN #### ERICA Tam ([id number]) [facility] ([facility]) [address] [place] [address] 25204 Cholesterol in HDL [Mass/Vol] 25.8 mg/dL Normal [facility] Comment on above: Result Comment: Age Very Low Low Normal High 0-19 Y < 35 < 40 40-45 ---- 20-24 Y ---- < 40 >45 ---- >24 Y ---- < 40 40-60 >60 Performed By: #### L IPIN #### ERICA Tam ([id number]) [facility] ([facility]) [address] [place] [address] 01407 CHOLESTEROL/HDL RATIO 4.4 Normal [facility] Comment on above: Result Comment: Ref Values Desirable < 3.4 High Risk > 5.0 Performed By: #### L IPIN #### ERICA Tam ([id number]) [facility] ([facility]) [address] [place] [address] 04251 NON-HDL CHOLESTEROL 88 mg/dL Normal 0-149 [facility] Comment on above: Result Comment: Age Desiable Borderline High High Very High 0-19 Y 0 - 119 120 - 144 >/= 145 >/= 160 20-24 Y 0 - 149 150 - 189 >/= 190 ---- >24 Y 30 MG/DL ABOVE LDL CHOLESTEROL GOAL Performed By: #### L IPIN #### ERICA Tam ([id number]) [facility] ([facility]) [address] [place] [address] 18328 Magnesiumon 10-16-2023 Magnesium [Mass/Vol] 1.84 mg/dL Normal 1.60-2.40 [facility] Comment on above: Performed By: #### 1 4979-9 #### ERICA Tam ([id number]) [facility] ([facility]) [address] [place] [address] 05641 Natriuretic peptide B [Mass/ Vol]on 10-16-2023 Natriuretic peptide B (Bld) [Mass/Vol] 88 pg/mL Normal 0-99 [facility] Comment on above: Order Comment: If val monroe has not had PT + INR in the last 24 hours. Nursing to release order. Performed By: #### 5 902-2 #### ERICA Tam ([id number]) [facility] ([facility]) [address] [place] [address] 61176 PT Coag (PPP) [Time]on 10-15 INR Coag (PPP) [Relative time] 1.1 Normal 0.9-1.1 [facility] Comment on above: Order Comment: If val monroe has not had PT + INR in the last 24 hours. Nursing to release order. Performed By: #### 5 902-2 #### ERICA Tam ([id number]) [facility] ([facility]) [address] [place] [address] 67248 Platelets Auto (Bld) [#/Vol] on 10-16-2023 Platelets (Bld) [#/Vol] 276 x10*3/uL Normal 150-450 [facility] Comment on above: Order Comment: Basel ine platelet count before any heparin given. May discontinue if platelet count already obtained today, or if heparin already administered. Performed By: #### 7 77-3 #### ERICA Tam ([id number]) [facility] ([facility]) [address] [place] [address] 72156 Renal function 2000 panelon 10-16-2023 Albumin BCP dye [Mass/Vol] 3.1 g/dL Low 3.4-5.0 [facility] Comment on above: Performed By: #### 1 4979-9 #### ERICA Tam ([id number]) [facility] ([facility]) [address] [place] [address] 29995 Anion gap [Moles/Vol] 15 mmol/L Normal 10-20 [facility] Comment on above: Performed By: #### 1 4979-9 #### ERICA MCDONALD L ([id number]) [facility] ([facility]) [address] [place] [address] 20585 Calcium [Mass/Vol] 8.2 mg/dL Low 8.6-10.6 [facility] Comment on above: Performed By: #### 1 4979-9 #### ERICA MCDONALD L ([id number]) [facility] ([facility]) [address] [place] [address] 72964 Chloride [Moles/Vol] 103 mmol/L Normal 98-107 [facility] Comment on above: Performed By: #### 1 4979-9 #### ERICA RESTREPOMOMARLENY L ([id number]) [facility] ([facility]) [address] [place] [address] 76565 CO2 [Moles/Vol] 24 mmol/L Normal 21-32 [facility] Comment on above: Performed By: #### 1 4979-9 #### ERICA MCDONALD L ([id number]) [facility] ([facility]) [address] [place] [address] 21058 Creatinine [Mass/Vol] 1.52 mg/dL High 0.50-1.30 [facility] Comment on above: Performed By: #### 1 4979-9 #### ERICA Tam ([id number]) [facility] ([facility]) [address] [place] [address] Glomerular filtration rate/1.73 sq M.predicted 49 mL/min/1.73m*2 Low >60 [facility] Comment on above: Result Comment: Calc ulations of estimated GFR are performed using the 2020 CKD-EPI Study Refit equation without the race variable for the IDMS-Traceable creatinine methods. https://jasn.asnjournals.org/content/early//ASN.45269 57592 Performed By: #### 1 4979-9 #### ERICA Tam ([id number]) [facility] ([facility]) [address] [place] [address] 40070 Glucose [Mass/Vol] 229 mg/dL High 74-99 [facility] Comment on above: Performed By: #### 1 4979-9 #### ERICA Tam ([id number]) [facility] ([facility]) [address] [place] [address] 47894 Phosphate [Mass/Vol] 3.1 mg/dL Normal 2.5-4.9 [facility] Comment on above: Result Comment: The performance characteristics of phosphorus testing in heparinized plasma have been validated by the individual laboratory site where testing is performed. Testing on heparinized plasma is not approved by the FDA; however, such approval is not necessary. Performed By: #### 1 4979-9 #### ERICA Tam ([id number]) [facility] ([facility]) [address] [place] [address] Potassium [Moles/Vol] 4.1 mmol/L Normal 3.5-5.3 [facility] Comment on above: Performed By: #### 1 4979-9 #### ERICA Tam ([id number]) [facility] ([facility]) [address] [place] [address] Sodium [Moles/Vol] 138 mmol/L Normal 136-145 [facility] Comment on above: Performed By: #### 1 4979-9 #### ERICA Tam ([id number]) [facility] ([facility]) [address] [place] [address] Urea nitrogen [Mass/Vol] 32 mg/dL High 6-23 [facility] Comment on above: Performed By: #### 1 4979-9 #### ERICA Tam ([id number]) [facility] ([facility]) [address] [place] [address] Staphylococcus aureus.methic illin resistant isolateon 10-16-2023 MRSA isol Org specific cx Ql (Nose) Test: Staphylococcus aureus/MRSA colonization, Culture Specimen Source: Anterior Nares Specimen Type: Swab Specimen Date: 10/16/2023 1023 Result Date: 10/17/2023 1257 Result Status: Final result Abnormal: No Resulting Lab: [facility] [address] [place] [address] CULTURE No Staphylococcus aureus isolated Normal [facility] Comment on above: Performed By: #### 2 4323-8 #### ERICA Tam ([id number]) [facility] ([facility]) [address] [place] [address] TSH WITH REFLEX TO FREE T4 I F ABNORMALon 10-16-2023 TSH Qn 6.30 m[IU]/L High 0.44-3.98 [facility] Comment on above: Order Comment: TSH t esting is performed using different testing methodology at [facility] than at other [facility]. Direct result comparisons should only be made within the same method. Performed By: #### T HYDS #### ERICA Tam ([id number]) [facility] ([facility]) [address] [place], [place] [address] Thyroxine.freeon 10-16-2023 Free T4 [Mass/Vol] 1.20 ng/dL Normal 0.78-1.48 [facility] Comment on above: Order Comment: If val monroe has not had PT + INR in the last 24 hours. Nursing to release order. Performed By: #### 5 902-2 #### ERICA Tam ([id number]) [facility] ([facility]) [address] [place] [address] 65941 Troponin I.cardiac panelon 0 10-16-2023 Tropinin I.cardiac panel High sensitivity method 916 ng/L Critically high 0-53 [facility] Comment on above: Order Comment: If val monroe has not had PT + INR in the last 24 hours. Nursing to release order. Performed By: #### 5 902-2 #### ERICA Tam ([id number]) [facility] ([facility]) [address] [place] [address] 64971 Urinalysis complete W Reflex Culture panel (U)on 10-16-2023 Appearance (U) Clear Normal Clear [facility] Comment on above: Performed By: #### 5 8077-9 #### ERICA Tam ([id number]) [facility] ([facility]) [address] [place] [address] 17485 Bilirubin (U) [Mass/Vol] Negative Normal NEGATIVE [facility] Comment on above: Performed By: #### 5 8077-9 #### ERICA Tam ([id number]) [facility] ([facility]) [address] [place] [address] 82045 Color (U) Light-Yellow Normal Light-Yellow , Yellow, Dark-Yellow [facility] Comment on above: Performed By: #### 5 8077-9 #### ERICA MCDONALD L ([id number]) [facility] ([facility]) [address] [place] [address] 07441 Glucose Auto test strip (U) [Mass/Vol] 50 (TRACE) Abnormal Normal [facility] Comment on above: Performed By: #### 5 8077-9 #### ERICA MCDONALD L ([id number]) [facility] ([facility]) [address] [place] [address] 48043 Ketones (U) [Mass/Vol] Negative Normal [facility]IVE [facility] on above: Performed By: #### 5 8077-9 #### ERICA Tam ([id number]) [facility] ([facility]) [address] [place] [address] 49607 Leukocyte esterase Auto test strip Ql (U) Negative Normal NEGATIVE [facility] Comment on above: Performed By: #### 5 8077-9 #### ERICA Tam ([id number]) [facility] ([facility]) [address] [place] [address] 21872 Mucus Auto (Urine sed) [#/Area] FEW Normal Reference range not established. [facility] Comment on above: Performed By: #### 5 8077-9 #### ERICA Tam ([id number]) [facility] ([facility]) [address] [place] [address] 26921 Nitrite Auto test strip Ql (U) Negative Normal NEGATIVE [facility] Comment on above: Performed By: #### 5 8077-9 #### ERICA Tam ([id number]) [facility] ([facility]) [address] [place] [address] 09075 pH (U) 5.0 [pH] Normal 5.0, 5.5, 6.0, 6.5, 7.0, 7.5, 8.0 [facility] Comment on above: Performed By: #### 5 8077-9 #### ERICA Tam ([id number]) [facility] ([facility]) [address] [place] [address] 86744 Protein (U) [Mass/Vol] 10 (TRACE) Normal NEGAT LE, 10 (TRACE), 20 (TRACE) [facility] Comment on above: Performed By: #### 5 8077-9 #### ERICA MCDONALD L ([id number]) [facility] ([facility]) [address] [place] [address] 23912 RBC (U) [#/Vol] Negative Normal NEGATIVE [facility] Comment on above: Performed By: #### 5 8077-9 #### ERICA ARREOLATZER L ([id number]) [facility] ([facility]) [address] [place] [address] RBC Auto (Urine sed) [#/Area] NONE Normal NONE, 1-2, 3-5 [facility] Comment on above: Performed By: #### 5 8077-9 #### ERICA SCHMOTZER L ([id number]) [facility] ([facility]) [address] [place] [address] 85360 Specific gravity (U) [Rel density] 1.026 Normal 1.005-1.035 [facility] Comment on above: Performed By: #### 5 8077-9 #### ERICA SCHMOTZER L ([id number]) [facility] ([facility]) [address] [place] [address] 70184 Urobilinogen (U) [Mass/Vol] Normal Normal Normal [facility] Comment on above: Performed By: #### 5 8077-9 #### ERICA RESTREPOMOTZER L ([id number]) [facility] ([facility]) [address] [place] [address] 71917 WBC Auto (Urine sed) [#/Area] 1-5 Normal 1-5, NONE [facility] Comment on above: Performed By: #### 5 8077-9 #### ERICA SCHMOTZER L ([id number]) [facility] ([facility]) [address] [place] [address] 19233 XR CHEST 2 VIEWSon XR CHEST 2 VIEWS Interpreted By: Rex Lambert, STUDY: XR CHEST 2 VIEWS; 10/16/2023 2:01 pm INDICATION: Signs/Symptoms:CABG evaluation. COMPARISON: None. ACCESSION NUMBER(S): [id number] ORDERING CLINICIAN: CATIA PATTON FINDINGS: CARDIOMEDIASTINAL SILHOUETTE: Cardiomegaly versus pericardial effusion. Right hilar calcifications. LUNGS: Low lung volumes with perihilar bibasilar atelectasis/effusions. ABDOMEN: No remarkable upper abdominal findings. BONES: No acute osseous changes. IMPRESSION: 1. Cardiomegaly with pulmonary edema and correlate with cardiac and fluid status. Signed by: Rex Ballesteros 10/18/2023 7:12 AM Dictation workstation: [id number] [facility] Activated partial thrombopla stin time (aPTT) in platelet poor plasma by coagulation aOrdered By: Ann Plata on 10-15-2023 aPTT Coag (PPP) [Time] 45.5 s High 25.1-36.5 [facility] Comment on above: A hematocrit value g reater than 55% may lead to inaccurate results in coagulation testing. Patients having hematocrit values >55% require a special collection tube for coagulation studies. Please contact the laboratory at [phone] for redraw instructions. Alanine aminotransferase [En zymatic activity/volume] in Serum or PlasmaOrdered By: Alondra Gonzales on 10-15-2023 ALT [Catalytic activity/Vol] 17 U/L Normal 7-52 [facility] Comment on above: Performed By: #### G LULS #### Point of Care testing , Albumin [Mass/volume] in Ser um or Plasma by Bromocresol green (BCG) dye binding methoOrdered By: Alondra Gonzales on 10-15-2023 Albumin BCG dye [Mass/Vol] 3.4 g/dL Low 3.5-5.7 [facility] Alkaline phosphatase [Enzyma tic activity/volume] in Serum or PlasmaOrdered By: Alondra Gonzales on 10-15-2023 ALP [Catalytic activity/Vol] 62 U/L Normal 34-104 [facility] Comment on above: Performed By: #### G LULS #### Point of Care testing , Aspartate aminotransferase [ Enzymatic activity/volume] in Serum or PlasmaOrdered By: Alondra Gonzales on 10-15-2023 AST [Catalytic activity/Vol] 16 U/L Normal 13-39 [facility] Comment on above: Performed By: #### G LULS #### Point of Care testing , Automated basophil %Ordered By: Alondra Gonzales on 10-15-2023 Basophils/100 WBC (Bld) 1.0 % Normal . [facility] Comment on above: Performed By: #### C BC #### [facility] [address] [place] [address] Automated basophil countOrde red By: Alondra Gonzales on 10-15-2023 Basophils (Bld) [#/Vol] 0.1 10*3/uL Normal 0.0-0.2 [facility] Comment on above: Result Comment: PERF ORMED BY: [place] [address] PATHOLOGIST [employer] WOLFGANG JOHNSON M.D. Performed By: #### C BC #### [address] Automated blood monocyte cou ntOrdered By: Alondra Gonzales on 10-15-2023 Monocytes (Bld) [#/Vol] 0.9 10*3/uL High 0.0-0.8 [facility] Comment on above: Performed By: #### C BC #### [facility] [address] [place] [address] Automated eosinophil %Ordere d By: Alondra Gonzales on 10-15-2023 Eosinophils/100 WBC (Bld) 3.7 % Normal . [facility] Comment on above: Performed By: #### C BC #### [facility] [address] [place] [address] Automated eosinophil countOr dered By: Alondra Gonzales on 10-15-2023 Eosinophils (Bld) [#/Vol] 0.4 10*3/uL Normal 0.0-0.45 [facility] Comment on above: Performed By: #### C BC #### [address] Automated monocyte %Ordered By: Alondra Gonzales on 10-15-2023 Monocytes/100 WBC (Bld) 9.3 % Normal . [facility] Comment on above: Performed By: #### C BC #### [facility] [address] [place] [address] Automated neutrophil %Ordere d By: Harriettamarakel Gonzales on 10-15-2023 Neutrophils/100 WBC (Bld) 74.1 % Normal . [facility] Comment on above: Performed By: #### C BC #### [facility] [address] [place] [address] Bilirubin.total [Mass/volume ] in Serum or PlasmaOrdered By: Alondra Gonzales on 10-15-2023 Bilirubin [Mass/Vol] 0.4 mg/dL Normal 0.3-1.0 [facility] Comment on above: Performed By: #### G LULS #### Point of Care testing , Calcium [Mass/volume] in Ser um or PlasmaOrdered By: Alondra Gonzales on 10-15-2023 Calcium [Mass/Vol] 8.1 mg/dL Low 8.6-10.3 [facility] Comment on above: Performed By: #### G LULS #### Point of Care testing , Capillary blood glucose jose urement by glucometer (mass/volume)Ordered By: Yovanny Rivera on 10-15-2023 Glucose [Mass/Vol] 277 mg/dL Normal [facility] Comment on above: Random Glucose Refer ence Range is dependent on time and content of last meal. Glucose of more than 200 mg/dL in a nonstressed, ambulatory subject supports the diagnosis of Diabetes Mellitus. Result Comment: [place] Glucose Reference Range is dependent on time and content of last meal. Glucose of more than 200 mg/dL in a nonstressed, ambulatory subject supports the diagnosis of Diabetes Mellitus. PERFORMED BY: [address] [place] [address] PATHOLOGIST [employer]CH[employer]ECT WOLFGANG JOHNSON M.D. Performed By: #### C BC, ESR #### [address] Carbon dioxide, total [Moles /volume] in Serum or PlasmaOrdered By: Alondra Gonzales on 10-15-2023 CO2 [Moles/Vol] 28.2 mmol/L Normal 21.0-31.0 [facility] Comment on above: Performed By: #### G LULS #### Point of Care testing , Chloride [Moles/volume] in S teodoro or PlasmaOrdered By: Alondra Gonzales on 10-15-2023 Chloride [Moles/Vol] 104 mmol/L Normal 98-107 [facility] Comment on above: Performed By: #### G LULS #### Point of Care testing , Complete Blood Count Auto Di ffon 10-15-2023 Mean Corpuscular HGB Conc 33.4 g/dL Normal 32.5-35.6 [facility] Comment on above: Performed By: #### C BC #### [facility] [address] [place] [address] NRBC% 0.1 /100{WBC} Normal 0-0.5 [facility] Comment on above: Performed By: #### C BC #### [facility] [address] [place] [address] Comprehensive Metabolic Pane laxmi 10-15-2023 Albumin [Mass/Vol] 3.4 g/dL Low 3.5-5.7 [facility] Comment on above: Performed By: #### G LULS #### Point of Care testing , Creatinine Clr Calc Pharmacy 51.77 Normal [facility] Comment on above: Performed By: #### G LULS #### Point of Care testing , GFR/1.73 sq M.predicted MDRD (S/P/Bld) [Vol rate/Area] 43.716 mL/min/{1.73_m2} Normal [facility] Comment on above: Performed By: #### G LULS #### Point of Care testing , Creatinine [Mass/volume] in Serum or PlasmaOrdered By: Alondra Gonzales on 10-15-2023 Creatinine [Mass/Vol] 1.68 mg/dL High 0.70-1.30 [facility] Comment on above: Performed By: #### G LULS #### Point of Care testing , ECH echo transthoracicon ECH echo transthoracic [facility] Main [place] [address] [place] [address] Echocardiogram Signed Patient: Italia Allen MR#: [id number] : 1955 Acct:[id number] Age/Sex: 68 / M ADM Date: 10/14/23 Loc: Room: [address] [place] [address] Type: ADM IN Attending Dr: Yovanny Rivera MD Ordering Provider: Alondra Gonzales MD Date of Service: 10/14/23 [facility] transthoracic: CHF exacerbation Copies to: MD [...] Diogenes Talley MD 10/15/23 1856 Normal [facility] Erythrocyte distribution wid th [Ratio] by Automated countOrdered By: Alondra Gonzales on 10-15-2023 Erythrocyte distribution width (RBC) [Ratio] 15.1 % High 12.0-14.8 [facility] Comment on above: Performed By: #### C BC #### [facility] [address] [place] [address] Erythrocytes [#/volume] in B lood by Automated countOrdered By: Alondra Gonzales on 10-15-2023 RBC (Bld) [#/Vol] 3.97 10*6/uL Normal 3.90-5.60 [facility] Comment on above: Performed By: #### C BC #### [facility] [address] Glucose Poct Glucometerson 0 10-15-2023 Commemt1 Glu2: Cleaned Meter Normal [facility] Comment on above: Result Comment: PERF ORMED BY: [address] [place] [address] PATHOLOGIST [employer] ARCHITECT WOLFGANG JOHNSON M.D. Performed By: #### G LULS #### Point of Care testing , Glucose [Mass/Vol] 303 mg/dL Normal [facility] Comment on above: Result Comment: [place] om Glucose Reference Range is dependent on time and content of last meal. Glucose of more than 200 mg/dL in a nonstressed, ambulatory subject supports the diagnosis of Diabetes Mellitus. Performed By: #### G LULS #### Point of Care testing , Commemt1 Glu2: Cleaned Meter Normal [facility] Comment on above: Result Comment: PERF ORMED BY: [place] [id number] PATHOLOGIST [employer] ARCHITECT WOLFGANG JOHNSON M.D. Performed By: #### G LULS #### Point of Care testing , Glucose [Mass/Vol] 257 mg/dL Normal [facility] Comment on above: Result Comment: [place] om Glucose Reference Range is dependent on time and content of last meal. Glucose of more than 200 mg/dL in a nonstressed, ambulatory subject supports the diagnosis of Diabetes Mellitus. Performed By: #### G LULS #### Point of Care testing , Commemt1 Glu2: Cleaned Meter Normal [facility] Comment on above: Result Comment: PERF ORMED BY: [address] [place] [id number] PATHOLOGIST [employer] ARCHITECT WOLFGANG JOHNSON M.D. Performed By: #### G LULS #### Point of Care testing , Glucose [Mass/Vol] 159 mg/dL Normal [facility] Comment on above: Result Comment: [place] om Glucose Reference Range is dependent on time and content of last meal. Glucose of more than 200 mg/dL in a nonstressed, ambulatory subject supports the diagnosis of Diabetes Mellitus. Performed By: #### G LULS #### Point of Care testing , Glucose [Mass/volume] in Ser um or PlasmaOrdered By: Alondra Gonzales on 10-15-2023 Glucose [Mass/Vol] 120 mg/dL Significant change up 70-100 [facility] Comment on above: Delta: 220 on -[id number] recommended reference rangeRandom Glucose Reference Range is dependent on time and content of last meal. Glucose of more than 200 mg/dL in a nonstressed, ambulatory subject supports the diagnosis of Diabetes Mellitus. Result Comment: [facility] Glucose Reference Range is dependent [...] (Bld) [Volume fraction] 35.0 % Low 38.8-50.0 [facility] Comment on above: Performed By: #### C BC #### [facility] [address] [place] [address] Hemoglobin [Mass/volume] in BloodOrdered By: Alondra Gonzales on 10-15-2023 Hemoglobin (Bld) [Mass/Vol] 11.7 g/dL Low 13.0-17.0 [facility] Comment on above: Performed By: #### C BC #### [facility] [address] [place] [address] INR in Platelet poor plasma by Coagulation assayOrdered By: Alondra Gonzales on 10-15-2023 INR Coag (PPP) [Relative time] 1.1 {INR} Normal [facility] Comment on above: INR Therapeutic Rang [...] Performed By: #### P TT, PT #### [address] Leukocytes [#/volume] correc zaid for nucleated erythrocytes in Blood by Automated counOrdered By: Alondra Gonzales on 10-15-2023 WBC corrected for nucl RBC Auto (Bld) [#/Vol] 9.8 10*3/uL 4.1-10.5 [facility] Leukocytes [#/volume] in Blo od by Automated countOrdered By: Alondra Gonzales on 10-15-2023 WBC (Bld) [#/Vol] 9.8 10*3/uL Normal 4.1-10.5 [facility] Comment on above: Performed By: #### C BC #### [address] Lymphocytes [#/volume] in Bl ood by Automated countOrdered By: Alondra Gonzales on 10-15-2023 Lymphocytes (Bld) [#/Vol] 1.2 10*3/uL Normal 1.00-4.8 [facility] Comment on above: Performed By: #### C BC #### [address] Lymphocytes/100 leukocytes i n Blood by Automated countOrdered By: Alondra Gonzales on 10-15-2023 Lymphocytes/100 WBC (Bld) 11.9 % Normal . [facility] Comment on above: Performed By: #### C BC #### [address] MCH [Entitic mass] by Automa zaid countOrdered By: Alondra Gonzales on 10-15-2023 MCH (RBC) [Entitic mass] 29.4 pg Normal 27.5-35.2 [facility] Comment on above: Performed By: #### C BC #### [address] MCHC Auto (RBC) [Mass/Vol]Or dered By: Alondra Gonzales on 10-15-2023 MCHC (RBC) [Mass/Vol] 33.4 g/dL 32.5-35.6 [facility] MCV [Entitic volume] by Auto mated countOrdered By: Alondra Gonzales on 10-15-2023 MCV (RBC) [Entitic vol] 87.9 fL Normal 83.5-101 [facility] Comment on above: Performed By: #### C BC #### [facility] [address] [place] [address] Magnesium [Mass/volume] in S teodoro or PlasmaOrdered By: Alondra Gonzales on 10-15-2023 Magnesium [Mass/Vol] 1.7 mg/dL Low 1.9-2.7 [facility] Comment on above: Result Comment: PERF ORMED BY: [place] [address] PATHOLOGIST [employer] ARCHITECT WOLFGANG JOHNSON M.D. Performed By: #### G LULS #### Point of Care testing , Neutrophils [#/volume] in Bl ood by Automated countOrdered By: Alondra Gonzales on 10-15-2023 Neutrophils (Bld) [#/Vol] 7.3 10*3/uL Normal 1.8-7.7 [facility] Comment on above: Performed By: #### C BC #### [facility] [address] [place] [address] No Panel InformationOrdered By: Yovanny Rivera on 10-15-2023 Bedside Glucose Comment Glu2: cleaned meter [facility] No Panel InformationOrdered By: Alondra Goznales on 10-15-2023 Estimated GFR (CKD-EPI) 43.716 mL/Min [facility] Creatinine Clearance (Chem 51.77 [facility] Nucleated erythrocytes [Pres ence] in Blood by Automated countOrdered By: Alondra Gonzales on 10-15-2023 Nucleated RBC Auto Ql (Bld) 0.1 /100{WBC} 0-0.5 [facility] Partial Thromboplastin Timeo n 10-15-2023 aPTT Coag (Bld) [Time] 45.5 s High 25.1-36.5 [facility] Comment on above: Result Comment: A he matocrit value greater than 55% may lead to inaccurate results in coagulation testing. Patients having hematocrit values >55% require a special collection tube for coagulation studies. Please contact the laboratory at [phone] for redraw instructions. PERFORMED BY: [place] [address] PATHOLOGIST [employer] ARCHITECT WOLFGANG JOHNSON M.D. Performed By: #### P TT #### [address] aPTT Coag (Bld) [Time] 41.7 s High 25.1-36.5 [facility] Comment on above: Order Comment: List the anticoagulant: HEPARIN, UNFRACTIONATED Result Comment: A he matocrit value greater than 55% may lead to inaccurate results in coagulation testing. Patients having hematocrit values >55% require a special collection tube for coagulation studies. Please contact the laboratory at [phone] for redraw instructions. PERFORMED BY: [place] [address] PATHOLOGIST [employer] ARCHITECT WOLFGANG JOHNSON M.D. Performed By: #### P TT, PT #### [address] Phosphate [Mass/volume] in S teodoro or PlasmaOrdered By: Alondra Gonzales on 10-15-2023 Phosphate [Mass/Vol] 3.8 mg/dL Normal 2.5-4.5 [facility] Comment on above: Performed By: #### G LULS #### Point of Care testing , Platelet mean volume [Entiti c volume] in Blood by Automated countOrdered By: Alondra Gonzales on 10-15-2023 Platelet mean volume (Bld) [Entitic vol] 7.7 fL Normal 6.6-10.1 [facility] Comment on above: Performed By: #### C BC #### [place] [address] [place] Platelets [#/volume] in Bloo d by Automated countOrdered By: Alondra Gonzales on 10-15-2023 Platelets (Bld) [#/Vol] 285 10*3/uL Normal 150-450 [facility] Comment on above: Performed By: #### C BC #### [facility] [address] [place] [address] [place] Potassium [Moles/volume] in Serum or PlasmaOrdered By: Alondra Gonzales on 10-15-2023 Potassium [Moles/Vol] 4.1 mmol/L Normal 3.5-5.1 [facility] Comment on above: Performed By: #### G LULS #### Point of Care testing , Protein [Mass/volume] in Ser um or PlasmaOrdered By: Alondra Gonzales on 10-15-2023 Protein [Mass/Vol] 5.6 g/dL Low 6.4-8.9 [facility] Comment on above: Performed By: #### G LULS #### Point of Care testing , Prothrombin time (PT)Ordered By: Alondra Gonzales on 10-15-2023 PT Coag (PPP) [Time] 12.6 s Normal 9.0-12.9 [facility] Comment on above: A hematocrit value g reater than 55% may lead to inaccurate results in coagulation testing. Patients having hematocrit values >55% require a special collection tube for coagulation studies. Please contact the laboratory at [phone] for redraw instructions. Order Comment: List the anticoagulant: HEPARIN, UNFRACTIONATED Result Comment: A he matocrit value greater than 55% may lead to inaccurate results in coagulation testing. Patients having hematocrit values >55% require a special collection tube for coagulation studies. Please contact the laboratory at [phone] for redraw instructions. Performed By: #### P TT, PT #### [facility] [address] [place] [id number] [place] Serum globulin measurement b y calculation (mass/volume)Ordered By: Alondra Gonzales on 10-15-2023 Globulin (S) [Mass/Vol] 2.2 g/dL Normal [facility] Comment on above: Performed By: #### G LULS #### Point of Care testing , Serum or plasma albumin/glob ulin mass ratioOrdered By: Alondra Gonzales on 10-15-2023 Albumin/Globulin [Mass ratio] 1.5 {ratio} Normal [facility] Comment on above: Performed By: #### G LULS #### Point of Care testing , Serum or plasma anion gap de terminationOrdered By: Alondra Gonzales on 10-15-2023 Anion gap [Moles/Vol] 10.9 mmol/L Normal 6.0-15.0 [facility] Comment on above: Performed By: #### G LULS #### Point of Care testing , Sodium [Moles/volume] in Ser um or PlasmaOrdered By: Alondra Gonzales on 10-15-2023 Sodium [Moles/Vol] 139 mmol/L Normal 136-145 [facility] Comment on above: Performed By: #### G LULS #### Point of Care testing , US renal BIon 10-15-2023 US renal BI [facility] [place] [address] Ultrasound Report Signed Patient: Italia Allen MR#: [id number] : 1955 Acct:[id number] Age/Sex: 68 / M ADM Date: 10/14/23 Loc: Room: [address] [place] [address] Type: ADM IN Attending Dr: Yovanny Rivera [...] Baird Jr., D.O.10/15/2023 9:59 AM Dictation Location: [place] [address] Tech: Rebecca Hein Transcribed By: PWS 10/15/2359 Dictated By: Jude Baird Jr, DO 10/15/23 0954 Signed By: 10/15/23 0959 Normal [facility] Urea nitrogen [Mass/volume] in Serum or PlasmaOrdered By: Alondra Gonzales on 10-15-2023 Urea nitrogen [Mass/Vol] 33 mg/dL High 09-12 [facility] Comment on above: Performed By: #### G RYAN #### Point of Care testing , C reactive protein [Mass/vol ume] in Serum or PlasmaOrdered By: Alondra Gonzales on 10-14-2023 CRP [Mass/Vol] 2.7 mg/dL High 0.0-0.5 [facility] C-Reactive Proteinon 024 C-Reactive Protein 2.7 mg/dL High 0.0-0.5 [facility] Comment on above: Result Comment: PERF ORMED BY: [place] [address] PATHOLOGIST [employer] ARCHITECT WOLFGANG JOHNSON M.D. Performed By: #### C BC, ESR #### [address] Complete Blood Count Auto Di ffon 10-14-2023 Basophils (Bld) [#/Vol] 0.1 10*3/uL Normal 0.0-0.2 [facility] Comment on above: Performed By: #### C BC, ESR #### [place] [address] [place] Basophils/100 WBC (Bld) 1.3 % Normal . [facility] Comment on above: Performed By: #### C BC, ESR #### [place] [address] [place] Eosinophils (Bld) [#/Vol] 0.2 10*3/uL Normal 0.0-0.45 [facility] Comment on above: Performed By: #### C BC, ESR #### [place] [address] [place] Eosinophils/100 WBC (Bld) 3.2 % Normal . [facility] Comment on above: Performed By: #### C BC, ESR #### [address] Erythrocyte distribution width (RBC) [Ratio] 15.4 % High 12.0-14.8 [facility] Comment on above: Performed By: #### C BC, ESR #### [address] Hematocrit (Bld) [Volume fraction] 35.1 % Low 38.8-50.0 [facility] Comment on above: Performed By: #### C BC, ESR #### [address] Hemoglobin (Bld) [Mass/Vol] 11.6 g/dL Low 13.0-17.0 [facility] Comment on above: Performed By: #### C BC, ESR #### [address] Lymphocytes (Bld) [#/Vol] 0.9 10*3/uL Low 1.00-4.8 [facility] Comment on above: Performed By: #### C BC, ESR #### [address] Lymphocytes/100 WBC (Bld) 12.1 % Normal . [facility] Comment on above: Performed By: #### C BC, ESR #### [address] MCH (RBC) [Entitic mass] 29.3 pg Normal 27.5-35.2 [facility] Comment on above: Performed By: #### C BC, ESR #### [address] MCV (RBC) [Entitic vol] 88.7 fL Normal 83.5-101 [facility] Comment on above: Performed By: #### C BC, ESR #### [address] Mean Corpuscular HGB Conc 33.0 g/dL Normal 32.5-35.6 [facility] Comment on above: Performed By: #### C BC, ESR #### [facility] [address] [place] [address] [place] Monocytes (Bld) [#/Vol] 0.6 10*3/uL Normal 0.0-0.8 [facility] Comment on above: Performed By: #### C BC, ESR #### [facility] [address] [place] [address] [place] Monocytes/100 WBC (Bld) 7.5 % Normal . [facility] Comment on above: Performed By: #### C BC, ESR #### [facility] [address] [place] [address] [place] Neutrophils (Bld) [#/Vol] 5.7 10*3/uL Normal 1.8-7.7 [facility] Comment on above: Performed By: #### C BC, ESR #### [facility] [address] [place] [address] [place] Neutrophils/100 WBC (Bld) 75.9 % Normal . [facility] Comment on above: Performed By: #### C BC, ESR #### [facility] [address] [place] [address] [place] NRBC% 0.1 /100{WBC} Normal 0-0.5 [facility] Comment on above: Performed By: #### C BC, ESR #### [facility] [address] [place] [address] [place] Platelet mean volume (Bld) [Entitic vol] 7.8 fL Normal 6.6-10.1 [facility] Comment on above: Performed By: #### C BC, ESR #### [facility] [address] [place] [address] [place] Platelets (Bld) [#/Vol] 290 10*3/uL Normal 150-450 [facility] Comment on above: Performed By: #### C BC, ESR #### [facility] [address] [place] [address] [place] RBC (Bld) [#/Vol] 3.95 10*6/uL Normal 3.90-5.60 [facility] Comment on above: Performed By: #### C BC, ESR #### [address] WBC (Bld) [#/Vol] 7.5 10*3/uL Normal 4.1-10.5 [facility] Comment on above: Performed By: #### C BC, ESR #### [address] Basophils (Bld) [#/Vol] 0.1 10*3/uL Normal 0.0-0.2 [facility] Comment on above: Result Comment: PERF ORMED BY: [place] [address] PATHOLOGIST [employer] ARCHITECT WOLFGANG JOHNSON M.D. Performed By: #### C BC, ESR #### [address] Basophils/100 WBC (Bld) 1.3 % Normal . [facility] Comment on above: Performed By: #### C BC, ESR #### [address] Eosinophils (Bld) [#/Vol] 0.3 10*3/uL Normal 0.0-0.45 [facility] Comment on above: Performed By: #### C BC, ESR #### [address] Eosinophils/100 WBC (Bld) 3.4 % Normal . [facility] Comment on above: Performed By: #### C BC, ESR #### [address] Erythrocyte distribution width (RBC) [Ratio] 15.3 % High 12.0-14.8 [facility] Comment on above: Performed By: #### C BC, ESR #### [address] Hematocrit (Bld) [Volume fraction] 35.3 % Low 38.8-50.0 [facility] Comment on above: Performed By: #### C BC, ESR #### [address] [place] [address] [place] Hemoglobin (Bld) [Mass/Vol] 11.8 g/dL Low 13.0-17.0 [facility] Comment on above: Performed By: #### C BC, ESR #### [address] Lymphocytes (Bld) [#/Vol] 0.9 10*3/uL Low 1.00-4.8 [facility] Comment on above: Performed By: #### C BC, ESR #### [address] Lymphocytes/100 WBC (Bld) 10.9 % Normal . [facility] Comment on above: Performed By: #### C BC, ESR #### [address] MCH (RBC) [Entitic mass] 29.5 pg Normal 27.5-35.2 [facility] Comment on above: Performed By: #### C BC, ESR #### [address] MCV (RBC) [Entitic vol] 87.9 fL Normal 83.5-101 [facility] Comment on above: Performed By: #### C BC, ESR #### [address] Mean Corpuscular HGB Conc 33.5 g/dL Normal 32.5-35.6 [facility] Comment on above: Performed By: #### C BC, ESR #### [place] [address] [place] Monocytes (Bld) [#/Vol] 0.6 10*3/uL Normal 0.0-0.8 [facility] Comment on above: Performed By: #### C BC, ESR #### [place] [address] [place] Monocytes/100 WBC (Bld) 7.5 % Normal . [facility] Comment on above: Performed By: #### C BC, ESR #### [address] [place] [address] [place] Neutrophils (Bld) [#/Vol] 6.0 10*3/uL Normal 1.8-7.7 [facility] Comment on above: Performed By: #### C BC, ESR #### [address] Neutrophils/100 WBC (Bld) 76.9 % Normal . [facility] Comment on above: Performed By: #### C BC, ESR #### [address] NRBC% 0.1 /100{WBC} Normal 0-0.5 [facility] Comment on above: Performed By: #### C BC, ESR #### [address] Platelet mean volume (Bld) [Entitic vol] 7.8 fL Normal 6.6-10.1 [facility] Comment on above: Performed By: #### C BC, ESR #### [address] Platelets (Bld) [#/Vol] 288 10*3/uL Normal 150-450 [facility] Comment on above: Performed By: #### C BC, ESR #### [address] RBC (Bld) [#/Vol] 4.01 10*6/uL Normal 3.90-5.60 [facility] Comment on above: Performed By: #### C BC, ESR #### [address] WBC (Bld) [#/Vol] 7.8 10*3/uL Normal 4.1-10.5 [facility] Comment on above: Performed By: #### C BC, ESR #### [address] Comprehensive Metabolic Pane laxmi 10-14-2023 Albumin [Mass/Vol] 3.3 g/dL Low 3.5-5.7 [facility] Comment on above: Performed By: #### C BC, ESR #### [address] Albumin/Globulin [Mass ratio] 1.4 {ratio} Normal [facility] Comment on above: Performed By: #### C BC, ESR #### [address] ALP [Catalytic activity/Vol] 59 U/L Normal 34-104 [facility] Comment on above: Performed By: #### C BC, ESR #### [address] ALT [Catalytic activity/Vol] 17 U/L Normal 7-52 [facility] Comment on above: Performed By: #### C BC, ESR #### [address] Anion gap [Moles/Vol] 10.6 mmol/L Normal 6.0-15.0 [facility] Comment on above: Performed By: #### C BC, ESR #### [address] AST [Catalytic activity/Vol] 16 U/L Normal 13-39 [facility] Comment on above: Performed By: #### C BC, ESR #### [address] Bilirubin [Mass/Vol] 0.5 mg/dL Normal 0.3-1.0 [facility] Comment on above: Performed By: #### C BC, ESR #### [address] Calcium [Mass/Vol] 8.2 mg/dL Low 8.6-10.3 [facility] Comment on above: Performed By: #### C BC, ESR #### [place] [address] [place] Chloride [Moles/Vol] 106 mmol/L Normal 98-107 [facility] Comment on above: Performed By: #### C BC, ESR #### [address] CO2 [Moles/Vol] 28.5 mmol/L Normal 21.0-31.0 [facility] Comment on above: Performed By: #### C BC, ESR #### [facility] [address] Creatinine [Mass/Vol] 1.61 mg/dL High 0.70-1.30 [facility] Comment on above: Performed By: #### C BC, ESR #### [place] [address] [place] Creatinine Clr Calc Pharmacy 54.02 Normal [facility] Comment on above: Performed By: #### C BC, ESR #### [facility] [address] [place] [address] [place] GFR/1.73 sq M.predicted MDRD (S/P/Bld) [Vol rate/Area] 46.006 mL/min/{1.73_m2} Normal [facility] Comment on above: Performed By: #### C BC, ESR #### [address] Globulin (S) [Mass/Vol] 2.3 g/dL Normal [facility] Comment on above: Performed By: #### C BC, ESR #### [address] Glucose [Mass/Vol] 220 mg/dL High 70-100 [facility] Comment on above: Result Comment: [place] Glucose Reference Range is dependent on time and content of last meal. Glucose of more than 200 mg/dL in a nonstressed, ambulatory subject supports the diagnosis of Diabetes Mellitus. ADA recommended reference range Performed By: #### C BC, ESR #### [address] Potassium [Moles/Vol] 4.1 mmol/L Normal 3.5-5.1 [facility] Comment on above: Performed By: #### C BC, ESR #### [address] Protein [Mass/Vol] 5.6 g/dL Low 6.4-8.9 [facility] Comment on above: Performed By: #### C BC, ESR #### [facility] [address] Sodium [Moles/Vol] 141 mmol/L Normal 136-145 [facility] Comment on above: Performed By: #### C BC, ESR #### [facility] [address] Urea nitrogen [Mass/Vol] 31 mg/dL High 7-25 [facility] Comment on above: Performed By: #### C BC, ESR #### [facility] [address] ECG 12 lead ECGon 10-14-2023 ECG 12 lead ECG [facility] [place] [address] [place] [address] Electrocardiograph Report Signed Patient: Italia Allen MR#: [id number] : 1955 Acct:[id number] Age/Sex: 68 / M ADM Date: 10/14/23 Loc: Room: [address] [place] [address] Type: DIS IN Attending Dr: Yovanny Rivera [...] previous ECGs available Confirmed by Diogenes Talley ([id number]) on 10/16/2023 10:19:42 PM Referred By: Electronically Signed By: Diogenes Talley Transcribed By: MUS Signed By Diogenes Talley MD 10/16/23 Normal [facility] Erythrocyte Sedimentation Ra clarice 10-14-2023 ESR (Bld) [Velocity] 22 mm/h High 0-19 [facility] Comment on above: Result Comment: PERF ORMED BY: [place] [address] PATHOLOGIST [employer]UT[employer] ARCHITECT WOLFGANG JOHNSON M.D. Performed By: #### C BC, ESR #### [facility] [address] Erythrocyte sedimentation ra te by Photometric methodOrdered By: Alondra Gonzales on 10-14-2023 ESR Photometric method (Bld) [Velocity] 22 mm/hr High 0-19 [facility] Glucose Poct Glucometerson 0 10-14-2023 Glucose [Mass/Vol] 306 mg/dL Normal [facility] Comment on above: Result Comment: [facility] Glucose Reference Range is dependent on time and content of last meal. Glucose of more than 200 mg/dL in a nonstressed, ambulatory subject supports the diagnosis of Diabetes Mellitus. PERFORMED BY: [place] [address] PATHOLOGIST [employer] ARCHITECT WOLFGANG JOHNSNO M.D. Performed By: #### G LULS #### Point of Care testing , Glucose [Mass/Vol] 221 mg/dL Normal [facility] Comment on above: Result Comment: [facility] Glucose Reference Range is dependent on time and content of last meal. Glucose of more than 200 mg/dL in a nonstressed, ambulatory subject supports the diagnosis of Diabetes Mellitus. PERFORMED BY: [place] [address] PATHOLOGIST [employer] ARCHITECT WOLFGANG JOHNSON M.D. Performed By: #### G LULS #### Point of Care testing , Magnesiumon 10-14-2023 Magnesium [Mass/Vol] 1.7 mg/dL Low 1.9-2.7 [facility] Comment on above: Performed By: #### C BC, ESR #### [facility] [address] [place] [address] [place] Partial Thromboplastin Timeo n 10-14-2023 aPTT Coag (Bld) [Time] 35.7 s Normal 25.1-36.5 [facility] Comment on above: Result Comment: A he matocrit value greater than 55% may lead to inaccurate results in coagulation testing. Patients having hematocrit values >55% require a special collection tube for coagulation studies. Please contact the laboratory at [phone] for redraw instructions. PERFORMED BY: [place] [id number] PATHOLOGIST [employer] ARCHITECT WOLFGANG JOHNSON M.D. Performed By: #### P TT #### [place] [id number] [place] aPTT Coag (Bld) [Time] 31.1 s Normal 25.1-36.5 [facility] Comment on above: Result Comment: A he matocrit value greater than 55% may lead to inaccurate results in coagulation testing. Patients having hematocrit values >55% require a special collection tube for coagulation studies. Please contact the laboratory at [phone] for redraw instructions. PERFORMED BY: [place] [address] PATHOLOGIST [employer] ARCHITECT WOLFGANG JOHNSON M.D. Performed By: #### C BC, ESR #### [place] [id number] [place] Prothrombin Time INRon 10-13 INR Coag (PPP) [Relative time] 1.1 {INR} Normal [facility] Comment on above: [...] Performed By: #### C BC, ESR #### [place] [id number] [place] PT Coag (PPP) [Time] 13.0 s High 9.0-12.9 [facility] Comment on above: Result Comment: A he matocrit value greater than 55% may lead to inaccurate results in coagulation testing. Patients having hematocrit values >55% require a special collection tube for coagulation studies. Please contact the laboratory at [phone] for redraw instructions. Performed By: #### C BC, ESR #### [place] [id number] [place] Troponin I High Sensitivityo n 10-14-2023 Troponin I High Sensitivity 1682.8 pg/mL Off scale high 0.0-20.0 [facility] Comment on above: Result Comment: Crit ical Result : Called to and read back by: JAREK REESE at: 10/14/2023 12:42:52 by:ADRIENNE PERFORMED BY: [place] [address] PATHOLOGIST [employer] ARCHITECT WOLFGANG JOHNSON M.D. Performed By: #### C BC, ESR #### [address] Troponin I.cardiac [Mass/vol ume] in Serum or Plasma by Detection limit <= 0.01 ng/Ordered By: Alondra Gonzales on 10-14-2023 Troponin I.cardiac DL <= 0.01 ng/mL [Mass/Vol] 1682.8 pg/mL High 0.0-20.0 [facility] Comment on above: Critical Result : Ca lled to and read back by: JAREK REESE at: 10/14/2023 12:42:52 by:ADRIENNE XR chest 1V portableon 10-13 XR chest 1V portable [facility] [place] [address] [place] [address] XRay Report Signed Patient: Italia Allen MR#: [id number] : 1955 Acct:[id number] Age/Sex: 68 / M ADM Date: 10/14/23 Loc: Room: [address] [place] [address] Type: ADM IN Attending Dr: Alondra Gonzales [...] Andrés Hardwick M.D.10/14/2023 12:13 PM Dictation Location: [place] [address] Transcribed By: [facility] 10/14/23 1213 Dictated By: Andrés Hardwick II, MD 10/14/23 1212 Signed By: 10/14/23 1213 Normal [facility] Vital Signs Date Time Vital Sign Value Performing Clinician Facility 11-29-2023 13:55-0400 Body height 177.8 cm Fatemeh Knox DPM Work Phone: [facility] 11-29-2023 13:55-0400 Body mass index (BMI) [Ratio] 35.87 kg/m2 Fatemeh Jared DPM Work Phone: [facility] 11-29-2023 13:55-0400 Body weight 113.4 kg Fatemeh Jared DPM Work Phone: [facility] 11-22-2023 15:42-0400 Blood Pressure Location Marine Orzech [facility] 11-22-2023 15:42-0400 Diastolic blood pressure 60 mm[Hg] [facility] 11-22-2023 15:42-0400 Heart rate 76 /min Marine Orzech [facility] 11-22-2023 15:42-0400 Respiratory rate 16 /min Marine Orzech [facility] 11-22-2023 15:42-0400 Systolic blood pressure 110 mm[Hg] Marine Orzech [facility] 10-16-2023 15:57-0400 Body temperature 37.0 degrees Celsius [facility] Comment on above: Result Comment: NOTE: Patient Results ar e Not Corrected for Temperature Performed By: #### 1 4979-9 #### ERICA Tam ([id number]) [facility] ([facility]) [address] [place] [id number] 10-16-2023 15:57-0400 SaO2% (BldA) [Mass fraction] 95 % [facility] Comment on above: Performed By: #### 83880-5 #### ERICA Tam ([id number]) [facility] ([facility]) [address] [place] [address] 10-15-2023 23:16-0400 Body temperature 98 [degF] [facility] 10-15-2023 23:16-0400 Diastolic blood pressure 73 mm[Hg] [facility] 10-15-2023 23:16-0400 Heart rate 104 /min [facility] 10-15-2023 23:16-0400 Respiratory rate 18 /min [facility] 10-15-2023 23:16-0400 SaO2% (BldA) [Mass fraction] 92 % [facility] 10-15-2023 23:16-0400 Systolic blood pressure 153 mm[Hg] [facility] 10-15-2023 20:00-0400 Inhaled oxygen flow rate 2 L/min [facility] 10-15-2023 14:51-0400 Body height 177.[address] [facility] 10-15-2023 06:00-0400 Body weight 112.[address] [facility] Encounters Encounter Date Encounter Type Care Provider Facility Start: 12-04-2023 End: 12-04-2023 ambulatory Marine X Cherrie Facility:[facility] Start: 12-04-2023 End: 12-04-2023 Patient encounter procedure Marine X Orzech [facility] Start: 12-03-2023 ambulatory Marine Grier Facility: [facility] Start: 11-29-2023 End: 11-29-2023 Bamboo flowsheet Fatemeh Coleman DPM Work Phone: [facility] Start: 11-29-2023 End: 11-29-2023 Bamboo flowsheet Fatemeh Coleman DPM Work Phone: [facility] Start: 11-29-2023 End: 11-29-2023 ambulatory FATEMEH COLEMAN Not Available Start: 11-29-2023 End: 11-29-2023 Office outpatient new 30 minutes Fatemeh Coleman DPM Work Phone: [facility] Comment on above: Dermatophytosis of n ail (Primary Dx); Dystrophic nail; Angiopathy, diabetic (CMS/HCC); Diabetic polyneuropathy associated with type 2 diabetes mellitus ([facility] Start: 11-22-2023 End: 11-22-2023 ambulatory Marine Grier Facility:[facility] Start: 11-22-2023 End: 11-22-2023 Patient encounter procedure Marine Ryderelli [facility] Coleman Start: 11-13-2023 End: 11-13-2023 ambulatory [facility] Start: 11-02-2023 End: 11-02-2023 ambulatory [facility] Start: 10-15-2023 End: 10-24-2023 Encounter for preprocedural cardiovascular examination [facility] Start: 10-15-2023 End: 10-24-2023 Evaluation and management of inpatient [facility] Start: 10-14-2023 End: 10-15-2023 Evaluation and management of inpatient [facility] Work Phone: Procedures Date Procedure Procedure Detail Performing Clinician Start: 10-15-2023 Start: 10-15-2023 [facility] Angio Start: 10-15-2023 Ultrasonography of b ilateral kidneys Start: 10-14-2023 Plain chest X-ray Cholecystectomy Marine Ryderdesi sandrita Tonsillectomy Marine Efrainsobia Plan of Treatment Date Care Activity Detail Author Start: 03-13-2024 End: 03-13-2024 Patient encounter procedure 03/13/2024 2:15 PM EST Procedure Visit [facility] [address] [place] [id number] Fatemeh Coleman DPM [address] [place], [place] [id number] [facility] Start: 10-21-2023 Influenza vaccination Influenza Vaccine (#1) [facility] Start: 10-15-2023 [facility] Start: 10-15-2023 [facility] Start: 10-14-2023 [facility] Start: 10-14-[address] 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 to secretarial teacher [facility] Start: 08-02-2019 Pneumococcal Vaccine: 65+ Years (2 of 2 - PCV) Pneumococcal Vaccine: 65+ Years (2 of 2 - PCV) [facility] Start: 1955 Screening for malignant neoplasm of colon [facility] Patient Education Heart Failure, Adult (DC) [facility] Work Phone: Immunizations Immunization Date Immunization Notes Care Provider Fa pettyty 03-05-2021 Influenza, injectabl e, Madin Casi Canine Kidney, preservative free, quadrivalent Fatemeh Coleman DPM Work Phone: [facility] 03-05-2021 influenza virus vacc ine, unspecified formulation Fatemeh Coleman DPM Work Phone: [facility] 12-21-2019 influenza, injectabl e, quadrivalent, contains preservative Fatemeh Coleman DPM Work Phone: [facility] 11-30-2017 Influenza, injectabl e, Madin [place] Canine Kidney, preservative free, quadrivalent Fatemeh Coleman DPM Work Phone: [facility] 11-30-2017 pneumococcal polysaccharide vaccine, 23 valent Fatemeh Coleman DPM Work Phone: [facility] Healthcare Payers Date Payer Category Payer Self-pay 2020 Medicare MEDICARE MEDICAR E PART B [id number] 2020-[place] [address] [address] Medicare [id number] 2020 Medicare [id number] 1955 Unknown [id number] 4 1955 Unknown [id number] 5 1955 Unknown [id number] 5 1955 Unknown [id number] 9 1955 Unknown [id number] 1955 Unknown [id number] 1955 Unknown [id number] Unknown [employer] KIMBALL/LINK [id number] Unknown [id number] Social History Date Type Detail Facility Start: 10-14-2023 End: 11-22-2023 Tobacco smoking status NHIS Never smoked tobacco (finding) [facility] Start: 1955 Sex Assigned At Male F [facility] Tobacco smoking status Ex-smoker (finding ) [facility] Tobacco smoking status Never [facility] Start: 11-29-2023 Sex Assigned At Male F [facility] Tobacco smoking stat NHIS Tobacco smoking consumption [...] 11-22-2023 Functional Status N/A [facility] 10-15-2023 Functional status Patient at Baseline [facility] Work Phone: Mental Status Date Assessment Result Facility 10-15-2023 Cognitive function Cognitive Sta tus Patient at Baseline [facility] Work Phone: Clinical Notes 10-14-2023 to 11-29-2023 Fatemeh Coleman, RADHAM - 11/29/2023 1:45 PM EDTPatient Instructions Note Date & Type Note Facility 11-29-2023 History of Presen t illness Narrative Images from the original note were not included. Subjective Patient ID: Italia Allen is a 68 y.o. 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, unable [...] Fatemeh Coleman DPM documented in this encounter [place] [address]-10-2024 Instructions Fatemeh Coleman DPM - 11/29/2023 1:45 PM EDT As noted documented in this encounter [facility] 10-15-2023 Discharge summary Note Date/Time October 15, 2023 6:18pm [place] [address] Discharge Summary Signed Patient: Italia Allen MR#: [id number] : 1955 Acct:[id number] Age/Sex: 68 / M Adm Date: 4 Loc: Room: [address] [place] [address]: Yovanny Rivera MD Copies to: [...] II, HTN, obesity, HFpEF who presentsto the [place] emergency department with complaints of deep pain [...] recommended for transfer to tertiary care facility ([facility] under Dr. Galdamez) for likely CABG. Patient [...] % (Auto) 74.1, Lymph % (Auto) 11.9, [place] % (Auto) 9.3, Eos % (Auto) 3.7, Baso % (Auto) 1.0, Nucleat RBC Rel Count 0.1, Neut # (Auto) 7.3, Lymph # (Auto) 1.2, [place] # (Auto) 0.9 H, Eos # (Auto) [...] signed by Yovanny Rivera MD> 10/15/23 1828 [facility] Work Phone: 1(184) 935-359808-26-2024 Progress note Author Ann Plata [facility] October 15, 2023 12:58pm Note Date/Time October 15, 2023 12 :57pm [facility] [address] [place] [address] Cardiology Progress Note Signed Patient: Italia Allen MR#: [id number] : 1955 Acct:[id number] Age/Sex: 68 / M Adm Date: 4 Loc: Room: [address] [place] [address] Type: ADM IN Attending Dr: Yovanny Rivera [...] MPV Neut % (Auto) Lymph % (Auto) [place] % (Auto) Eos % (Auto) Baso % (Auto) Nucleat RBC Rel Count Neut # (Auto) Lymph # (Auto) [place] # (Auto) Eos # (Auto) Baso # [...] % (Auto) 74.1 Lymph % (Auto) 11.9 [place] % (Auto) 9.3 Eos % (Auto) 3.7 Baso % (Auto) 1.0 Nucleat RBC Rel Count 0.1 Neut # (Auto) 7.3 Lymph # (Auto) 1.2 [place] # (Auto) 0.9 H Eos # (Auto) [...] MPV Neut % (Auto) Lymph % (Auto) [place] % (Auto) Eos % (Auto) Baso % (Auto) Nucleat RBC Rel Count Neut # (Auto) Lymph # (Auto) [place] # (Auto) Eos # (Auto) Baso # [...] signed by MD Ann Plata> 10/15/23 1258 [facility] Work Phone: 1(657) 210-795808-26-2024 [facility] History and physical note Author Alondra Gonzales [facility] October 14, 2023 3:57pm Note Date/Time October 14, 2023 9: 54am [facility] [address] [place] [address] Hospitalist H&P Signed Patient: Italia Allen MR#: [id number] : 1955 Acct:[id number] Age/Sex: 68 / M Adm Date: 4 Loc: Room: [address] [place] [address] Type: ADM IN Attending Dr: Alondra Gonzales [...] He was brought as a transfer from [place] ED. As per ED note at [place],patient presented to the ED at [place] with chest pain, described as deep pain [...] or diaphoresis. He showed activity ED at [place] with oxygen saturation of 70% he was noticed to have bilateral lower extremity edema and he was started on BiPAP as well as was given IV Lopressor 1 dose and was started on heparin drip. His troponin wasuptrending EKG showed sinus tachycardia with no ischemic changes as per [facility] records(report not actual tracing). Labs: CBC showed [...] done during my encounter with the pt [facility] Medical History Biceps muscle tear Cholecystectomy [...] 4 Documented By: Alondra Gonzales MD 10/14/23 0996 Signed By: <Electronically signed by Alondra Gonzales MD> 10/14/23 3012 [facility] Work Phone: 1(110) 651-373808-25-2024 Consult note Author Ann Plata [facility] October 14, 2023 2:55pm Note Date/Time October 14, 2023 2: 51pm [facility] [address] [place] [address] Cardiology Consult Note Signed Patient: Italia Allen MR#: [id number] : 1955 Acct:[id number] Age/Sex: 68 / M Adm Date: 4 Loc: Room: 3E9144-9 Type: ADM IN Attending Dr: Alondra Gonzales MD Copies to: NON STAFF MD Ann Gordillo MD~ Cardiology HPI History of Present Illness Consult Date: 10/14/23 Reason for Consult: Cardiac consultation requested for evaluation for shortness of breath chest heaviness and acute coronary syndrome HPI: Mr. Allen is a 68 year old male who denies prior cardiac history presented to [place] emergency room complaining of increasing shortness of breath and chest heaviness. He was evaluated and felt to have evidence of acute coronary syndrome and heart failure and arrangement was made to transfer the patient to [facility] for further care. The patient reports historyof longstanding diabetes mellitus and hypertension. He report over the last fewweeks he has been describing decreased exercise tolerance and dyspnea on exertion. He has seen his family physician on several occasion with adjustment of his medication but without improvement. Prior to presentation to the emergency room at [place] he developed worsening shortness of breath and [...] of system is negative other mentioned above [facility] Medical History Biceps muscle tear Cholecystectomy [...] (Auto) 0.9 L 0.9 L (1.00-4.8) x10E3/uL [place] # (Auto) 0.6 0.6 (0.0-0.8) x10E3/uL Eos [...] <Electronically signed by MD Ann Plata> 10/14/23 0108 [facility] Work Phone: Evaluation + Plan note Future Appointments Appointment Date:11/29/2023 03:00:00 PM Scheduled Provider: Location:[facility] Appointment Type:URO Nurse Visit Appointment Date:12/04/2023 03:00:00 PM Scheduled Provider:RADHA Grier APRN, [place] [facility] Location:[facility] Appointment Type:URO Office Visit [facility] Evaluation note* Diagnosis Onset Date Resolution Status ACS (acute coronary syndrome) acute Acute hypoxic respiratory failure acute Systolic CHF, acute on chronic acute [facility] Work Phone: Evaluation note* Diagnosis Dermatophytosis of nail- Primary Dystrophic nail Other specified disease of nail Angiopathy, diabetic (CMS/HCC) Type II or unspecified type diabetes mellitus with peripheral circulatory disorders, not stated as uncontrolled Diabetic polyneuropathy associated with type 2 diabetes mellitus (CMS/HCC) documented [facility] Narrative No data available for this section [facility] Hospital Discharge instructions Additional Instructions Full code [facility] Work Phone: Hospital Discharge instructions No data available for this section [facility] Progress note No data available for this section [facility] Julius Chief Complaint and Reason for [...] and content) DATE CREATED AUTHOR 10/19/2023 [facility] DATE CREATED AUTHOR AUTHOR'S ORGANIZ ATION 11/10/2023 [facility] DATE CREATED AUTHOR AUTHOR'S ORGANIZ ATION 11/15/2023 [facility] DATE CREATED AUTHOR AUTHOR'S ORGANIZ ATION 11/16/2023 [facility] DATE CREATED AUTHOR AUTHOR'S ORGANIZ ATION 12/01/2023 [facility] EPIC DATE CREATED AUTHOR AUTHOR'S ORGANIZ ATION 12/07/2023 [facility] Reason for Visit (unrecogniz ed section and content) Reason Comments 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 Haven't been trimmed since last January. PCP: [facility] 10/2023, A1C: ?, BS: n/a FOR [...] BE BASED ON THE PRIMARY CLINICAL RECORDS. [facility]. provides no warranty or guarantee of the accuracy or completeness of information in this document.
--- NOTE | 2023-12-20 07:29 | PM.DS1 ---
DS: Providers Provider Date of admission: 12/19/23 17:31 Primary care physician: Samara Schultz NP Attending physician on admission: Quynh Hall Discharging clinician: Quynh Hall DS: Diagnosis Discharge Diagnosis (1) Non-ST elevation (NSTEMI) myocardial infarction: (2) Hypoglycemia due to insulin: (3) Syncope and collapse: (4) CAD (coronary artery disease): Qualifiers: Associated angina: without angina Coronary Disease-Associated Artery/Lesion type: [place] artery [place] vs. transplanted heart: [place] heart Qualified Code(s): I25.10 - Atherosclerotic heart disease of [place] coronary artery without angina pectoris (5) Diabetes: Qualifiers: Chronic kidney disease stage: stage 3 (moderate) Chronic kidney disease stage 3 subtype: stage 3a (GFR 45-59) Diabetes mellitus complication detail: with chronic kidney disease Diabetes mellitus complication status: with kidney complications Diabetes mellitus fdc insulin use: with fdc use Diabetes mellitus type: type 2 Qualified Code(s): E11.22 - Type 2 diabetes mellitus with diabetic chronic kidney disease; N18.31 - Chronic kidney disease, stage 3a; Z79.4 - terminal clerk (current) use of insulin (6) Hypertension: Qualifiers: Hypertension type: primary hypertension Qualified Code(s): I10 - Essential (primary) hypertension (7) CHF (congestive heart failure): Qualifiers: Heart failure chronicity: acute on chronic Heart failure type: unspecified Qualified Code(s): I50.9 - Heart failure, unspecified (8) CKD stage 3 due to type 2 diabetes mellitus: (9) Chronic respiratory failure with hypoxia: DS: Summary Hospital Course Hospital Course: Patient is a 68 y.o white male with past medical history of Insulin dependent type 2 diabetes, Hypertension, Congestive Heart failure unknown type, CAD with recent PCI at [facility], GERD, depression, BPH who presented to the ER yesterday after his son found him collapsed beside the couch. At the time of EMS arrival his blood sugar was 35. Patient responded with Amp of D50. He was brought to the ER. Patient had work up that included head CT that showed no acute findings, left elbow Xray showed chronic avulsion fracture. CBC showed hemoglobin of 9.4, Cr 2.08 with GFR 32, lactate normal, Patient BP 140's/70's. RR 21 with pulse of 96, EKG showed no ST segment elevations or depressions. Patient was placed on Heparin Drip given elevated troponin of 654, troponin now up to 1723. Patient was going to be transferred to [facility] in [place] but they do not have a bed available yesterday. Patient was admitted in our ICU until bed at Acute Care Facility was available. Patient is currently having no chest pain. Just admits to acute low back pain from his fall, given [place]. patient wears 4L NC at home and is currently on that. Chest Xray was negative. Patient was restarted on home medications including bumex, coreg, lisinopril, Lipitor, aspirin, sertraline, flomax. Sugars were checked q4 hours, insulin was held. Patient will be transferred to Acute Care Facility for Urgent PCI. Status at Discharge Functional status at discharge: bed bound Overall status at discharge: patient is not back to baseline Time Spent with Patient Time attestation: Total time spent providing and/or coordinating discharge services: Time spent: greater than 30 minutes Exam Narrative Exam Narrative: General: Patient is alert, and oriented to person, place and time with normal affect, proper hygiene Skin: multiple abrasions to bilateral lower ext with, larger upper left lip from biting his lip Head: atraumatic, acephalic Eyes: PERRLA, no nystagmus present, conjunctiva clear, no scleral icterus Heart: Normal rate and rhythm, no murmurs/rubs/gallops Lungs: no audible wheezes, crackles and normal breath sounds all lung mcguire Abdomen: Normal audible bowel sounds, no distension, No palpable masses, no organomegaly, no rebound/guarding/ or rigidity Musculoskeletal: 1+ swelling bilateral lower extremities Neuro: CN II-X grossly intact Constitutional Vital Signs, click to edit/add: Last Vital Signs Temp 98.7 F 12/20/23 04:00 Pulse 83 12/20/23 06:05 Resp 15 12/20/23 04:00 BP 156/86 H 12/20/23 04:00 Pulse Ox 99 12/20/23 06:05 O2 Del Method Nasal Cannula 12/19/23 19:34 O2 Flow Rate 3 12/20/23 04:00 DS: Data Data Completed and Pending Labs on day of discharge: Labs from last 24 hours 12/20/23 12/19/23 12/19/23 05:15 23:00 22:16 WBC 9.5 RBC 2.79 L Hgb 8.0 L Hct 25.7 L MCV 92.1 MCH 28.7 MCHC 31.1 RDW 15.9 H Plt Count 347 MPV 10.3 Neut % (Auto) 72.2 Lymph % (Auto) 11.9 L [place] % (Auto) 9.0 Eos % (Auto) 5.5 Baso % (Auto) 0.9 Neut # (Auto) 6.9 H Lymph # (Auto) 1.1 L [place] # (Auto) 0.9 H Eos # (Auto) 0.5 Baso # (Auto) 0.1 Abs Immat Gran (auto) 0.05 H Imm/Tot Granulo (auto) 0.5 PT INR APTT PTT (Heparin Absorb) 46.4 L* 48.6 Sodium 143 Potassium 4.0 Chloride 106 Carbon Dioxide 28.4 Anion Gap 12.6 BUN 41.0 H Creatinine 2.09 H Est GFR ( Amer) 38 L Est GFR (Non-Af Amer) 32 L BUN/Creatinine Ratio 19.6 Glucose 153 H Estimat Average Glucose 151 Hemoglobin A1c 6.9 H Calcium 8.4 L Total Bilirubin 0.3 AST 31 ALT 25 Alkaline Phosphatase 69 Troponin I High Sens Total Protein 5.8 L Albumin 2.4 L Globulin 3.4 Albumin/Globulin Ratio 0.7 Triglycerides 118 Cholesterol 90 LDL Cholesterol, Calc 32.0 VLDL Cholesterol 23.6 HDL Cholesterol 35 L Cholesterol/HDL Ratio 2.6 TSH 1.482 POC Glucose 232 H 12/19/23 12/19/23 12/19/23 18:10 17:05 17:00 WBC RBC Hgb Hct MCV MCH MCHC RDW Plt Count MPV Neut % (Auto) Lymph % (Auto) [place] % (Auto) Eos % (Auto) Baso % (Auto) Neut # (Auto) Lymph # (Auto) [place] # (Auto) Eos # (Auto) Baso # (Auto) Abs Immat Gran (auto) Imm/Tot Granulo (auto) PT INR APTT PTT (Heparin Absorb) 51.7 Sodium Potassium Chloride Carbon Dioxide Anion Gap BUN Creatinine Est GFR ( Amer) Est GFR (Non-Af Amer) BUN/Creatinine Ratio Glucose Estimat Average Glucose Hemoglobin A1c Calcium Total Bilirubin AST ALT Alkaline Phosphatase Troponin I High Sens Total Protein Albumin Globulin Albumin/Globulin Ratio Triglycerides Cholesterol LDL Cholesterol, Calc VLDL Cholesterol HDL Cholesterol Cholesterol/HDL Ratio TSH POC Glucose 148 H 111 H 12/19/23 12/19/23 12/19/23 14:00 13:45 11:56 WBC RBC Hgb Hct MCV MCH MCHC RDW Plt Count MPV Neut % (Auto) Lymph % (Auto) [place] % (Auto) Eos % (Auto) Baso % (Auto) Neut # (Auto) Lymph # (Auto) [place] # (Auto) Eos # (Auto) Baso # (Auto) Abs Immat Gran (auto) Imm/Tot Granulo (auto) PT INR APTT PTT (Heparin Absorb) Sodium Potassium Chloride Carbon Dioxide Anion Gap BUN Creatinine Est GFR ( Amer) Est GFR (Non-Af Amer) BUN/Creatinine Ratio Glucose Estimat Average Glucose Hemoglobin A1c Calcium Total Bilirubin AST ALT Alkaline Phosphatase Troponin I High Sens 1723.0 H* Total Protein Albumin Globulin Albumin/Globulin Ratio Triglycerides Cholesterol LDL Cholesterol, Calc VLDL Cholesterol HDL Cholesterol Cholesterol/HDL Ratio TSH POC Glucose 104 101 12/19/23 12/19/23 12/19/23 10:19 08:38 08:18 WBC RBC Hgb Hct MCV MCH MCHC RDW Plt Count MPV Neut % (Auto) Lymph % (Auto) [place] % (Auto) Eos % (Auto) Baso % (Auto) Neut # (Auto) Lymph # (Auto) [place] # (Auto) Eos # (Auto) Baso # (Auto) Abs Immat Gran (auto) Imm/Tot Granulo (auto) PT INR APTT PTT (Heparin Absorb) Sodium Potassium Chloride Carbon Dioxide Anion Gap BUN Creatinine Est GFR ( Amer) Est GFR (Non-Af Amer) BUN/Creatinine Ratio Glucose Estimat Average Glucose Hemoglobin A1c Calcium Total Bilirubin AST ALT Alkaline Phosphatase Troponin I High Sens 1053.1 H* Total Protein Albumin Globulin Albumin/Globulin Ratio Triglycerides Cholesterol LDL Cholesterol, Calc VLDL Cholesterol HDL Cholesterol Cholesterol/HDL Ratio TSH POC Glucose 93 56 L 12/19/23 06:20 WBC RBC Hgb Hct MCV MCH MCHC RDW Plt Count MPV Neut % (Auto) Lymph % (Auto) [place] % (Auto) Eos % (Auto) Baso % (Auto) Neut # (Auto) Lymph # (Auto) [place] # (Auto) Eos # (Auto) Baso # (Auto) Abs Immat Gran (auto) Imm/Tot Granulo (auto) PT 11.8 H INR 1.13 APTT 28.6 PTT (Heparin Absorb) Sodium Potassium Chloride Carbon Dioxide Anion Gap BUN Creatinine Est GFR ( Amer) Est GFR (Non-Af Amer) BUN/Creatinine Ratio Glucose Estimat Average Glucose Hemoglobin A1c Calcium Total Bilirubin AST ALT Alkaline Phosphatase Troponin I High Sens Total Protein Albumin Globulin Albumin/Globulin Ratio Triglycerides Cholesterol LDL Cholesterol, Calc VLDL Cholesterol HDL Cholesterol Cholesterol/HDL Ratio TSH POC Glucose Discharge Plan Discharge Disposition: er Acute Care Hospital Condition: Serious Discharge location: Transfer Patient to [facility] for PCI/Heart Cath
[2023-12-20] MEDS: SERTRALINE HCL 50 MG TABLET 25 MG PO (08:12)
[2023-12-20] MEDS: LISINOPRIL 20 MG TABLET 40 MG PO (08:12)
[2023-12-20] MEDS: CARVEDILOL 25 MG TABLET PO ×2 (08:13→21:17)
[2023-12-20] MEDS: BUMETANIDE 1 MG TABLET 3 MG PO ×2 (08:13→21:15)
[2023-12-20] MEDS: ACETAMINOPHEN 325 MG TABLET 650 MG PO (08:16)
[2023-12-20 08:32] LABS: Glucometer 137 mg/dL (74-106)
--- NOTE | 2023-12-20 10:08 | SWNOTE1 ---
Important Message from Medicare reviewed and discussed with patient. Pt. verbalized understanding and signed the form. Original given to patient and copy placed in patient?s chart. Plan is for pt to be transferred to higher level of care. Pt lives at home with son. He was discharged home with home oxygen from the hospital last week.
[2023-12-20] MEDS: HEPARIN SODIUM,PORCINE/D5W 25,000 UNIT/500 ML IV.SOLN 20 UNIT IV (10:59)
--- NOTE | 2023-12-20 11:39 | CM.NOTE ---
Rounds made with Dr. Easton Hall. Dr. Hall discussed current labs and plan for transfer to [facility] [place]. Current plan is to be transferred to [facility] when bed available. [place] verbalized understanding.
[2023-12-20 12:07] LABS: Glucometer 267 mg/dL (74-106)
[2023-12-20 13:39] LABS: Troponin I High Sensitivity 998.6 pg/mL (4.0-76.1)
[2023-12-20 16:42] LABS: Glucometer 258 mg/dL (74-106)
[2023-12-20] MEDS: HYDROCODONE/ACET 5-325 MG TABLET 1 TAB PO (19:20)
[2023-12-20] MEDS: ATORVASTATIN CALCIUM 40 MG TABLET 80 MG PO (21:17)
[2023-12-20] MEDS: PANTOPRAZOLE SODIUM 40 MG VIAL IV (21:18)
[2023-12-20] MEDS: TAMSULOSIN HCL 0.4 MG CAPSULE PO (21:18)
[2023-12-20 21:20] LABS: Glucometer 293 mg/dL (74-106)
[2023-12-20] MEDS: INSULIN ASPART 300 UNIT/3 ML PEN SUBQ (21:20)
[2023-12-21] VITALS (78 sets, daily range): BP systolic 100–153; BP diastolic 53–85; PULSE 72–90; TEMP 36.8–37.1; O2SAT 95–100
[2023-12-21] MEDS: HYDROCODONE/ACET 5-325 MG TABLET 1 TAB PO ×3 (04:08→21:24)
[2023-12-21 05:59] LABS: Basophils Absolute Auto 0.1 10^3/uL (0.0-0.1); Basophils Percent Auto 1.1 % (0.2-2.0); Eosinophils Absolute Auto 0.5 10^3/uL (0.0-0.7); Eosinophils Percent Auto 6.4 % (0.9-7.0); Hematocrit 24.2 % (42.0-54.0); Hemoglobin 7.5 g/dL (14.0-18.0); Immature Granulocytes Abs Auto 0.06 10^3/uL (0.00-0.03); Immature Granulocytes Pct Auto 0.7 % (0.0-0.5); Lymphocytes Percent Auto 12.5 % (20.5-60.0); Mean Corpuscular Hemoglobin 28.6 pg (25.9-34.0); Mean Corpuscular Volume 92.4 fL (80.0-94.0); Mean Platelet Volume 10.4 fL (9.5-13.5); Monocytes Absolute Auto 0.9 10^3/uL (0.3-0.8); Monocytes Percent Auto 10.4 % (1.7-12.0); Neutrophils Absolute Auto 5.7 10^3/uL (1.4-6.5); Neutrophils Percent Auto 68.9 % (43.0-75.0); Platelet Count 298 10^3/uL (150-450); Red Blood Count 2.62 10^6/uL (4.70-6.10); Red Cell Distribution Width 16.1 % (11.0-15.0); White Blood Count 8.3 10^3/uL (4.0-11.0)
--- NOTE | 2023-12-21 06:19 | PC.NURSE ---
decreased fio2 down to 2 lts, patient 100% spo2
[2023-12-21 06:35] LABS: Alanine Aminotransferase 27 U/L (16-63); Albumin Globulin Ratio 0.7; Albumin Level 2.3 g/dL (3.4-5.0); Alkaline Phosphatase 68 U/L (46-116); Anion Gap 12.2; Aspartate Amino Transferase 25 U/L (15-37); BUN Creatinine Ratio 21.5; Bilirubin Total 0.3 mg/dL (0.2-1.0); Calcium 8.3 mg/dL (8.5-10.1); Chloride 103 mmol/L (98-107); Estimated GFR (African America 37 (>=60 mL/min/1.73m^2); Estimated GFR (Non-African Ame 31 (>=60 mL/min/1.73m^2); Globulin 3.4 g/dL; Glucose 204 mg/dL (74-106); Potassium 4.2 mmol/L (3.5-5.1); Sodium 139 mmol/L (136-145); Total Protein 5.7 g/dL (6.4-8.2)
[2023-12-21 06:49] LABS: Troponin I High Sensitivity 877.4 pg/mL (4.0-76.1)
[2023-12-21 06:50] LABS: PTT Heparin Monitor 46.2 sec (48.2-68.6)
--- NOTE | 2023-12-21 07:55 | P.PN_ITS ---
Progress Note: Subjective Subjective Interval history: Patient still denies any chest pain or shortness of breath. Pain in left shoulder where he fell, I offered X-ray but patient refused stating it's always been bad. Still on Heparin drip. CBC, CMP and vitals stable. Troponin 877 Exam Narrative Exam Narrative: General: Patient is alert, and oriented to person, place and time with normal affect, proper hygiene Skin: multiple abrasions to bilateral lower ext with, larger upper left lip from biting his lip Head: atraumatic, acephalic Eyes: PERRLA, no nystagmus present, conjunctiva clear, no scleral icterus Heart: Normal rate and rhythm, no murmurs/rubs/gallops Lungs: no audible wheezes, crackles and normal breath sounds all lung mcguire Abdomen: Normal audible bowel sounds, no distension, No palpable masses, no organomegaly, no rebound/guarding/ or rigidity Musculoskeletal: 1+ swelling bilateral lower extremities Neuro: CN II-X grossly intact Constitutional Vital Signs, click to edit/add: Last Vital Signs Temp 98.7 F 12/21/23 04:00 Pulse 75 12/21/23 06:00 Resp 20 12/21/23 04:00 BP 145/60 H 12/21/23 04:00 Pulse Ox 100 12/21/23 06:00 O2 Del Method Nasal Cannula 12/20/23 19:50 O2 Flow Rate 2 12/21/23 06:00 Progress Note: Objective Labs Labs: Short CBC 12/21/23 Range/Units 05:11 WBC 8.3 (4.0-11.0) 10^3/uL Hgb 7.5 L (14.0-18.0) g/dL Hct 24.2 L (42.0-54.0) % Plt Count 298 (150-450) 10^3/uL BMP 12/21/23 05:11 Sodium 139 Potassium 4.2 Chloride 103 Carbon Dioxide 28.0 BUN 46.0 H Creatinine 2.14 H Glucose 204 H Calcium 8.3 L Liver Function 12/21/23 Range/Units 05:11 Total Bilirubin 0.3 (0.2-1.0) mg/dL AST 25 (15-37) U/L ALT 27 (16-63) U/L Alkaline Phosphatase 68 (46-116) U/L Albumin 2.3 L (3.4-5.0) g/dL Progress Note: A&P Assessment and Plan (1) Non-ST elevation (NSTEMI) myocardial infarction: Assessment and Plan: trop is [id number] down from 1700 with elevated ProBNP, will continue patient on heparin drip, continue with PTT checks q6 hours, adjust drip accordingly.continue home meds for BP control, continue high dose lipitor and aspirin. Nitro as needed with PRN oxygen as needed. Given patient's transfer, will hold on Echo but chest X-ray negative. (2) Syncope and collapse: Assessment and Plan: will need carotid artery ultrasounds at transfer facility, may want to consider MRI brain, CT was negative. Normal mentation. (3) CAD (coronary artery disease): Assessment and Plan: continue lipitor, Heparin drip, aspirin. Qualifiers: Associated angina: without angina Coronary Disease-Associated Artery/Lesion type: [place] artery [place] vs. 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 use Diabetes mellitus type: type 2 Qualified Code(s): E11.22 - Type 2 diabetes mellitus with diabetic chronic kidney disease; N18.31 - Chronic kidney disease, stage 3a; Z79.4 - detention (current) use of insulin (5) Hypertension: Assessment and Plan: continue coreg Qualifiers: Hypertension type: primary hypertension Qualified Code(s): I10 - Essential (primary) hypertension (6) CHF (congestive heart failure): Assessment and Plan: continue home bumex with fluid restriction Qualifiers: Heart failure chronicity: acute on chronic Heart failure type: unspecified Qualified Code(s): I50.9 - Heart failure, unspecified (7) CKD stage 3 due to type 2 diabetes mellitus: (8) Chronic respiratory failure with hypoxia: Assessment and Plan: continue 4L NC Plan Patient is a full code Currently on Heparin drip plan for transfer to Acute Care hospital once bed is available at [facility] in [place].
[2023-12-21 09:03] LABS: Glucometer 200 mg/dL (74-106)
[2023-12-21] MEDS: ASPIRIN 81 MG TAB.CHEW PO (09:03)
[2023-12-21] MEDS: INSULIN ASPART 300 UNIT/3 ML PEN SUBQ ×4 (09:03→21:25)
[2023-12-21] MEDS: SERTRALINE HCL 50 MG TABLET 25 MG PO (09:04)
[2023-12-21] MEDS: CARVEDILOL 25 MG TABLET PO ×2 (09:04→21:24)
[2023-12-21] MEDS: BUMETANIDE 1 MG TABLET 3 MG PO ×2 (09:04→21:23)
[2023-12-21] MEDS: LISINOPRIL 20 MG TABLET 40 MG PO (09:04)
--- NOTE | 2023-12-21 11:27 | CM.NOTE ---
Rounds made with Dr. Hall. Dr. Hall reviews plan of care and still awaiting bed for transfer to [facility]. Verbalizes understanding.
[2023-12-21] MEDS: HEPARIN SODIUM,PORCINE/D5W 25,000 UNIT/500 ML IV.SOLN 22 UNIT IV (11:40)
[2023-12-21 11:57] LABS: Glucometer 251 mg/dL (74-106)
[2023-12-21 13:38] LABS: PTT Heparin Monitor 48.9 sec (48.2-68.6)
--- NOTE | 2023-12-21 14:18 | PC.NURSE ---
1320 patient ptt resulted at 48.9, in therapeutic range, no change to heparin gtt at this time verified with Shelby Loving RN.
[2023-12-21 16:19] LABS: Glucometer 197 mg/dL (74-106)
[2023-12-21 19:21] LABS: PTT Heparin Monitor 45.3 sec (48.2-68.6)
--- NOTE | 2023-12-21 20:34 | PC.NURSE ---
Patient up to the bathroom, does become SOB with exertion. when returned to bed was not on oxgen was 86% - applied 2 lts and came up to 97% quickly
[2023-12-21] MEDS: PANTOPRAZOLE SODIUM 40 MG VIAL IV (21:23)
[2023-12-21] MEDS: TAMSULOSIN HCL 0.4 MG CAPSULE PO (21:23)
[2023-12-21] MEDS: ATORVASTATIN CALCIUM 40 MG TABLET 80 MG PO (21:25)
[2023-12-21 21:31] LABS: Glucometer 258 mg/dL (74-106)
[2023-12-22] VITALS (24 sets, daily range): BP systolic 106–140; BP diastolic 55–66; PULSE 71–81; TEMP 36.7–37.1; O2SAT 93–97
[2023-12-22 02:39] LABS: Basophils Absolute Auto 0.1 10^3/uL (0.0-0.1); Basophils Percent Auto 0.6 % (0.2-2.0); Eosinophils Absolute Auto 0.5 10^3/uL (0.0-0.7); Eosinophils Percent Auto 5.4 % (0.9-7.0); Hematocrit 24.8 % (42.0-54.0); Hemoglobin 7.7 g/dL (14.0-18.0); Immature Granulocytes Abs Auto 0.08 10^3/uL (0.00-0.03); Immature Granulocytes Pct Auto 0.8 % (0.0-0.5); Lymphocytes Absolute Auto 1.1 10^3/uL (1.2-3.8); Lymphocytes Percent Auto 10.8 % (20.5-60.0); Mean Corpuscular Hemoglobin 28.6 pg (25.9-34.0); Mean Corpuscular Volume 92.2 fL (80.0-94.0); Mean Platelet Volume 10.6 fL (9.5-13.5); Monocytes Absolute Auto 0.9 10^3/uL (0.3-0.8); Monocytes Percent Auto 9.3 % (1.7-12.0); Neutrophils Absolute Auto 7.3 10^3/uL (1.4-6.5); Neutrophils Percent Auto 73.1 % (43.0-75.0); Platelet Count 309 10^3/uL (150-450); Red Blood Count 2.69 10^6/uL (4.70-6.10); White Blood Count 9.9 10^3/uL (4.0-11.0)
[2023-12-22 03:02] LABS: PTT Heparin Monitor 55.5 sec (48.2-68.6)
[2023-12-22 03:05] LABS: Alanine Aminotransferase 27 U/L (16-63); Albumin Globulin Ratio 0.7; Albumin Level 2.4 g/dL (3.4-5.0); Alkaline Phosphatase 70 U/L (46-116); Aspartate Amino Transferase 17 U/L (15-37); BUN Creatinine Ratio 22.2; Bilirubin Total 0.3 mg/dL (0.2-1.0); Calcium 8.4 mg/dL (8.5-10.1); Carbon Dioxide 27.1 mmol/L (21.0-32.0); Chloride 103 mmol/L (98-107); Estimated GFR (African America 35 (>=60 mL/min/1.73m^2); Estimated GFR (Non-African Ame 29 (>=60 mL/min/1.73m^2); Globulin 3.4 g/dL; Glucose 192 mg/dL (74-106); Potassium 4.1 mmol/L (3.5-5.1); Sodium 140 mmol/L (136-145); Total Protein 5.8 g/dL (6.4-8.2); Troponin I High Sensitivity 552.8 pg/mL (4.0-76.1)
[2023-12-22] MEDS: ACETAMINOPHEN 325 MG TABLET 650 MG PO (03:14)
[2023-12-22] MEDS: HYDROCODONE/ACET 5-325 MG TABLET 1 TAB PO (06:00)
[2023-12-22 07:47] LABS: Glucometer 209 mg/dL (74-106)
[2023-12-22] MEDS: INSULIN ASPART 300 UNIT/3 ML PEN SUBQ (07:51)
[2023-12-22] MEDS: HEPARIN SODIUM,PORCINE/D5W 25,000 UNIT/500 ML IV.SOLN 24 UNIT IV (07:53)
[2023-12-22] MEDS: LISINOPRIL 20 MG TABLET 40 MG PO (08:00)
[2023-12-22] MEDS: BUMETANIDE 1 MG TABLET 3 MG PO (08:00)
[2023-12-22] MEDS: SERTRALINE HCL 50 MG TABLET 25 MG PO (08:00)
[2023-12-22] MEDS: CARVEDILOL 25 MG TABLET PO (08:00)
[2023-12-22] MEDS: ASPIRIN 81 MG TAB.CHEW PO (08:01)
[2023-12-22 08:10] LABS: PTT Heparin Monitor 57.4 sec (48.2-68.6)
--- NOTE | 2023-12-22 09:10 | PC.NURSE ---
pt stable, left with [facility] at 0900, going to [address], report called to Sarika KRAFT [phone].
== END 2023-12-22 09:00 | disposition short-term general hospital (02) | DRG 281 ==
LOC: ER 09:19 → ICU 12-20 07:28
PROVIDERS: Internal Medicine; Admitting Provider Family Medicine; Emergency Provider Emergency Medicine Emergency Medical Services; PCP Nurse Practitioner Family; Visit Provider Internal Medicine
DX: I21.4 Non-ST elevation (NSTEMI) myocardial infarction (principal); I13.0 Hypertensive heart and chronic kidney disease with heart failure and stage 1 through stage 4 chronic kidney disease, or unspecified chronic kidney disease; J96.11 Chronic respiratory failure with hypoxia; I25.10 Atherosclerotic heart disease of native coronary artery without angina pectoris; E11.22 Type 2 diabetes mellitus with diabetic chronic kidney disease; E11.649 Type 2 diabetes mellitus with hypoglycemia without coma; F32.A Depression, unspecified; I50.9 Heart failure, unspecified; K21.9 Gastro-esophageal reflux disease without esophagitis; N18.31 Chronic kidney disease, stage 3a; N40.0 Benign prostatic hyperplasia without lower urinary tract symptoms; R29.6 Repeated falls; W19.XXXA Unspecified fall, initial encounter; Y92.003 Bedroom of unspecified non-institutional (private) residence as the place of occurrence of the external cause; Z95.5 Presence of coronary angioplasty implant and graft; Z79.84 Long term (current) use of oral hypoglycemic drugs; Z79.4 Long term (current) use of insulin; Z79.82 Long term (current) use of aspirin; Z79.899 Other long term (current) drug therapy
CPT/HCPCS: 36415; 70450; 71045; 73080; 80053; 80061; 82948; 83036; 83605; 83880; 84443; 84484; 85025; 85610; 85730; 93005; 94761; 96361; 96365; 96366; 96375; 96376; 99285; J1644

== ENCOUNTER 2024-01-27 10:49 | Inpatient (IN) | payer MEDICARE, SELFPAY ==
[2024-01-27] VITALS (16 sets, daily range): BP systolic 93–122; BP diastolic 47–74; PULSE 67–76; TEMP 36.6; O2SAT 92–99; BMI 35.9; BMI 28.6
--- NOTE | 2024-01-27 11:05 | ECG_ITS ---
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
--- NOTE | 2024-01-27 11:06 | CT_ITS ---
The [address] [address] Patient Name: ITALIA ALLEN MRN: [id number] date: 1955 Sex: M Assigned Patient Location: ER Current Patient Location: ER Accession/Order Number: [id number] Exam Date: 01/27/2024 11:35 Report Date: 01/27/2024 12:19 At the request of: ANNA DOE Procedure: CT head/brain wo con EXAM: CT head/brain wo con HISTORY: fall COMPARISON: 12/19/2023 TECHNIQUE: Multiple thin computed tomograms of the head were obtained, with sagittal and coronal reconstructions. FINDINGS: Again seen is a remote infarct involving the periventricular deep white matter anteriorly on the left, extending into the basal ganglia. This accompanied by mild ex vacuo dilation of the anterior horn of the left lateral ventricle. The ventricles are near the upper limits of normal in size, and the third ventricles in the midline. The sylvian fissures and cortical sulci are unremarkable. There is no evidence of an intracranial hemorrhage, mass lesion or apparent acute infarct. A few punctate dystrophic calcifications are seen in the basal ganglia, which are not felt to be significant. The cerebellum and visualized brainstem are intact. Mild mucosal thickening is seen in some of the ethmoid sinuses, the paranasal sinuses are otherwise clear. The middle ears are aerated. The mastoid sinuses are clear. There is no apparent acute skull fracture. CT/CT head/brain wo con IMPRESSION: There is no evidence of an intracranial hemorrhage, mass lesion or apparent acute infarct. A remote infarct is seen in the periventricular deep white matter along the anterior aspect of the left lateral ventricle, extending into the left basal ganglia. This remains unchanged. Mild mucosal thickening is seen in the ethmoid sinuses, and the paranasal sinuses are otherwise clear. There is no apparent acute skull fracture. The overall appearance is essentially unchanged. Electronically authenticated by: PEDRO GREENE Date: 01/27/2024 12:19
--- NOTE | 2024-01-27 11:06 | ED_ITS ---
HPI HPI - General Adult General Chief complaint: Fall Stated complaint: FALL Time Seen by Provider: 01/27/24 11:00 History of Present Illness HPI narrative: 68-year-old male presents to the emergency department for being weak and falling. This happened at home just before coming into the emergency department and he was transported here by paramedics. The fall resulted in a tiny abrasion at his left forehead but he does not have a headache or neck pain. He apparently recently had a GI bleed and was seen at [facility] in [place]. His stools were noted to be black upon arrival. Related Data Home Medications ?Medication ?Instructions ?Recorded ?Confirmed lisinopril 40 mg tablet 40 mg PO DAILY 10/13/23 01/27/24 aspirin 81 mg chewable tablet 81 mg PO DAILY 11/19/23 01/27/24 (Aspirin Childrens) atorvastatin 80 mg tablet 80 mg PO .qhs 11/19/23 01/27/24 carvedilol 25 mg tablet 25 mg PO Q12H 11/19/23 01/27/24 nitroglycerin 0.4 mg sublingual 0.4 mg sublingual Q5M PRN chest 11/19/23 01/27/24 tablet pain prasugrel 10 mg tablet 10 mg PO DAILY 11/19/23 01/27/24 glipizide 5 mg tablet 5 mg PO QAM 12/19/23 01/27/24 insulin glargine-yfgn 100 unit/mL 60 unit subcut DAILY 12/19/23 01/27/24 (3 mL) subcutaneous pen (Semglee (insulin glargine-yfgn) Pen) tamsulosin 0.4 mg capsule 0.4 mg PO .QHS 12/19/23 01/27/24 amlodipine 5 mg tablet 5 mg PO .QD 01/27/24 01/27/24 bumetanide 2 mg tablet 2 mg PO QAM 01/27/24 01/27/24 omeprazole 40 mg capsule,delayed 40 mg PO .ACB 01/27/24 01/27/24 release polysaccharide iron complex 150 mg 150 mg PO .QD 01/27/24 01/27/24 iron capsule (iFerex 150) sertraline 100 mg tablet 100 mg PO QAM 01/27/24 01/27/24 spironolactone 25 mg tablet 50 mg PO .ACB 01/27/24 01/27/24 Allergies Allergy/AdvReac Type Severity Reaction Status Date / Time No Known Drug Allergies Allergy Verified 01/27/24 11:00 Opioid HPI Opioid Management Most Recent Opioid Data: Last Pain Scale 4 12/22/23 08:00 12/22/23 Last ORT Total Score 0 12/19/23 17:55 12/19/23 Last ORT Risk Category Low Risk 12/19/23 17:55 12/19/23 Review of Systems ROS Narrative A ten point review of systems is negative except as noted above. [facility] Medical History (Updated 01/27/24 @ 14:18 by Leo De Jesus MD) Chronic respiratory failure with hypoxia ?J96.11 - Chronic respiratory failure with hypoxia (ICD-10) CKD stage 3 due to type 2 diabetes mellitus ?E11.22 - Type 2 diabetes mellitus with diabetic chronic kidney disease (ICD- 10) ?N18.30 - Chronic kidney disease, stage 3 unspecified (ICD-10) CAD (coronary artery disease) ?I25.10 - Atherosclerotic heart disease of [place] coronary artery without angina pectoris (ICD-10) Diabetes ?E11.9 - Type 2 diabetes mellitus without complications (ICD-10) Hypertension ?I10 - Essential (primary) hypertension (ICD-10) CHF (congestive heart failure) ?I50.9 - Heart failure, unspecified (ICD-10) Surgical History Hx of cholecystectomy ?Z90.49 - Acquired absence of other specified parts of digestive tract (ICD- 10) H/O heart artery stent ?Z95.5 - Presence of coronary angioplasty implant and graft (ICD-10) Family History Mother Family history of CHF (congestive heart failure) Family history of diabetes mellitus Father Family history of cancer Social History Within the past year, how often did you have a drink containing alcohol: monthly or less Smoking status: Never smoker Non-prescribed substance use: denies use Previous occupational history: retired Highest level of school completed/degree received: high school graduate Are you now , , , , never or living with a partner: In a typical week, how many times do you talk on the telephone with family, friends, or neighbors: 3 or more times per week How often do you get together with friends or relatives: 3 or more times per week How often do you attend orthodox or christianity services: never Little interest or pleasure in doing things: not at all Feeling down, depressed, or hopeless: not at all Feel stressed/tense/nervous/anxious/difficulty sleeping: not at all Do you think of yourself as: straight/heterosexual Gender Identity: male Exam Narrative Exam Narrative: Nurses note and vital signs reviewed and patient is not hypoxic. General: The patient appears generally weak and is in no respiratory distress. Skin: Warm, dry, pallor noted. There is no rash noted. Head: Normocephalic, atraumatic Eye: Conjunctiva are pale Ears, Nose, Mouth, and Throat: oral mucosa is moist. Nares patent. Cardiovascular: Regular Rate and Rhythm Respiratory: Patient is in no distress, no accessory muscle use, lungs are clear to auscultation, no wheezing, rales or rhonchi GI: Soft and nontender Musculoskeletal: Hips are nontender in all joints seem to have full range of motion Neurological: A&O, normal speech Psychiatric: Cooperative Constitutional Vital Signs, click to edit/add: Last Vital Signs Temp 97.9 F 01/27/24 11:00 Pulse 73 01/27/24 13:00 Resp 15 01/27/24 13:00 BP 105/52 01/27/24 13:00 Pulse Ox 99 01/27/24 13:00 O2 Del Method Room Air 01/27/24 11:06 Course Vital Signs Vital signs: Vital Signs Temperature 97.9 F 01/27/24 11:00 Respiratory Rate 18 01/27/24 11:00 Blood Pressure 108/53 01/27/24 11:00 Pulse Oximetry 96 01/27/24 11:00 Oxygen Delivery Method Room Air 01/27/24 11:00 Temperature 97.9 F 01/27/24 11:00 Pulse Rate 73 01/27/24 13:00 Respiratory Rate 15 01/27/24 13:00 Blood Pressure 105/52 01/27/24 13:00 Pulse Oximetry 99 01/27/24 13:00 Oxygen Delivery Method Room Air 01/27/24 11:06 Medical Decision Making MDM Narrative Medical decision making narrative: Stools black and heme positive. Hemoglobin is 7.4 and he is not currently hypotensive. Blood sugar was low here and he was given D50. Additionally the patient has some discoloration of the hallux and will likely need podiatry. He was given IV Protonix. Findings are discussed thoroughly with the patient and his son. The patient's son expresses concern about the patient eventually going home and feels that he may need placement. Treatment diagnosis and disposition were discussed thoroughly. Differential Diagnosis Differential Diagnosis: Upper GI bleed, lower GI bleed, anemia Lab Data Lab results reviewed: Yes I reviewed the patient's lab results Labs: Lab Results 01/27/24 01/27/24 01/27/24 Range/Units 11:05 11:20 11:44 WBC 11.9 H (4.0-11.0) 10^3/uL RBC 2.49 L (4.70-6.10) 10^6/uL Hgb 7.4 L (14.0-18.0) g/dL Hct 24.3 L (42.0-54.0) % MCV 97.6 H (80.0-94.0) fL MCH 29.7 (25.9-34.0) pg MCHC 30.5 (29.9-35.2) g/dL RDW 17.2 H (11.0-15.0) % Plt Count 312 (150-450) 10^3/uL MPV 9.6 (9.5-13.5) fL Neut % (Auto) 85.1 H (43.0-75.0) % Lymph % (Auto) 5.6 L (20.5-60.0) % [place] % (Auto) 5.6 (1.7-12.0) % Eos % (Auto) 2.7 (0.9-7.0) % Baso % (Auto) 0.6 (0.2-2.0) % Neut # (Auto) 10.1 H (1.4-6.5) 10^3/uL Lymph # (Auto) 0.7 L (1.2-3.8) 10^3/uL [place] # (Auto) 0.7 (0.3-0.8) 10^3/uL Eos # (Auto) 0.3 (0.0-0.7) 10^3/uL Baso # (Auto) 0.1 (0.0-0.1) 10^3/uL Abs Immat Gran (auto) 0.05 H (0.00-0.03) 10^3/uL Imm/Tot Granulo (auto) 0.4 (0.0-0.5) % PT 11.9 H (9.0-11.6) sec INR 1.14 APTT 27.5 (22.3-36.2) sec Sodium 141 (136-145) mmol/L Potassium 4.5 (3.5-5.1) mmol/L Chloride 110 H (98-107) mmol/L Carbon Dioxide 18.9 L (21.0-32.0) mmol/L Anion Gap 16.6 BUN 66.0 H (7.0-18.0) mg/dL Creatinine 2.35 H (0.70-1.30) mg/dL Est GFR ( Amer) 34 L (>=60 mL/min/1.73m^2) Est GFR (Non-Af Amer) 28 L (>=60 mL/min/1.73m^2) BUN/Creatinine Ratio 28.1 Glucose 58 L (74-106) mg/dL Calcium 8.4 L (8.5-10.1) mg/dL Total Bilirubin 0.3 (0.2-1.0) mg/dL Direct Bilirubin 0.1 (0.0-0.2) mg/dL AST 22 (15-37) U/L ALT 27 (16-63) U/L Alkaline Phosphatase 67 (46-116) U/L Total Protein 5.9 L (6.4-8.2) g/dL Albumin 2.7 L (3.4-5.0) g/dL Globulin 3.2 g/dL Albumin/Globulin Ratio 0.8 Stool Occult Blood Positive A POC Glucose 57 L (74-106) mg/dL 01/27/24 Range/Units 12:11 WBC (4.0-11.0) 10^3/uL RBC (4.70-6.10) 10^6/uL Hgb (14.0-18.0) g/dL Hct (42.0-54.0) % MCV (80.0-94.0) fL MCH (25.9-34.0) pg MCHC (29.9-35.2) g/dL RDW (11.0-15.0) % Plt Count (150-450) 10^3/uL MPV (9.5-13.5) fL Neut % (Auto) (43.0-75.0) % Lymph % (Auto) (20.5-60.0) % [place] % (Auto) (1.7-12.0) % Eos % (Auto) (0.9-7.0) % Baso % (Auto) (0.2-2.0) % Neut # (Auto) (1.4-6.5) 10^3/uL Lymph # (Auto) (1.2-3.8) 10^3/uL [place] # (Auto) (0.3-0.8) 10^3/uL Eos # (Auto) (0.0-0.7) 10^3/uL Baso # (Auto) (0.0-0.1) 10^3/uL Abs Immat Gran (auto) (0.00-0.03) 10^3/uL Imm/Tot Granulo (auto) (0.0-0.5) % PT (9.0-11.6) sec INR APTT (22.3-36.2) sec Sodium (136-145) mmol/L Potassium (3.5-5.1) mmol/L Chloride (98-107) mmol/L Carbon Dioxide (21.0-32.0) mmol/L Anion Gap BUN (7.0-18.0) mg/dL Creatinine (0.70-1.30) mg/dL Est GFR ( Amer) (>=60 mL/min/1.73m^2) Est GFR (Non-Af Amer) (>=60 mL/min/1.73m^2) BUN/Creatinine Ratio Glucose (74-106) mg/dL Calcium (8.5-10.1) mg/dL Total Bilirubin (0.2-1.0) mg/dL Direct Bilirubin (0.0-0.2) mg/dL AST (15-37) U/L ALT (16-63) U/L Alkaline Phosphatase (46-116) U/L Total Protein (6.4-8.2) g/dL Albumin (3.4-5.0) g/dL Globulin g/dL Albumin/Globulin Ratio Stool Occult Blood POC Glucose 104 (74-106) mg/dL Imaging Data CT scan - head: Radiologist's impression: ITS Impressions Chest X-Ray 01/27/24 11:06 IMPRESSION: 1. 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 Heart size remains top normal. Trachea is midline. 2. No dense consolidation, effusion, edema, failure or pneumothorax based on AP image alone. Retrocardiac regions are difficult to accurately evaluate due to underpenetration. 3. Moderate to severe arthritic changes about the shoulder girdles predominantly involving right glenohumeral articulation noted incidentally. No acute osseous abnormality suspected. Electronically authenticated by: JIL WALL Date: 01/27/2024 13:[address] 01/27/24 11:06 IMPRESSION: There is no evidence of an intracranial hemorrhage, mass lesion or apparent acute infarct. A remote infarct is seen in the periventricular deep white matter along the anterior aspect of the left lateral ventricle, extending into the left basal ganglia. This remains unchanged. Mild mucosal thickening is seen in the ethmoid sinuses, and the paranasal sinuses are otherwise clear. There is no apparent acute skull fracture. The overall appearance is essentially unchanged. Electronically authenticated by: PEDRO GREENE Date: 01/27/2024 12:19 ECG Data Attestation: I personally reviewed and interpreted this ECG as follows: (EKG on my interpretation shows sinus rhythm with a rate of 72 and no acute change) Discharge Plan Discharge Chief Complaint: Fall Clinical Impression: GI bleed, Generalized weakness Patient Disposition: Admitted As Inpatient Time of Disposition Decision: 14:18 Condition: Fair
--- NOTE | 2024-01-27 11:06 | XR_ITS ---
The [address] [address] Patient Name: ITALIA ALLEN MRN: [id number] date: 1955 Sex: M Assigned Patient Location: ER Current Patient Location: ER Accession/Order Number: [id number] Exam Date: 01/27/2024 11:35 Report Date: 01/27/2024 13:19 At the request of: ANNA DOE Procedure: XR chest 1V EXAM: XR chest 1V 01/27/2024 COMPARISON: AP chest 12/19/2023. FINDINGS: Single upright AP chest image was obtained. HISTORY: weak XR/XR chest 1V IMPRESSION: 1. 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 Heart size remains top normal. Trachea is midline. 2. No dense consolidation, effusion, edema, failure or pneumothorax based on AP image alone. Retrocardiac regions are difficult to accurately evaluate due to underpenetration. 3. Moderate to severe arthritic changes about the shoulder girdles predominantly involving right glenohumeral articulation noted incidentally. No acute osseous abnormality suspected. Electronically authenticated by: JIL WALL Date: 01/27/2024 13:19
--- NOTE | 2024-01-27 11:28 | PC.NURSE ---
Small abrasion to left forehead
[2024-01-27 11:29] LABS: Internal Control Within Normal Limits; Occult Blood Positive
[2024-01-27 11:32] LABS: Basophils Absolute Auto 0.1 10^3/uL (0.0-0.1); Basophils Percent Auto 0.6 % (0.2-2.0); Eosinophils Absolute Auto 0.3 10^3/uL (0.0-0.7); Eosinophils Percent Auto 2.7 % (0.9-7.0); Hematocrit 24.3 % (42.0-54.0); Hemoglobin 7.4 g/dL (14.0-18.0); Immature Granulocytes Abs Auto 0.05 10^3/uL (0.00-0.03); Immature Granulocytes Pct Auto 0.4 % (0.0-0.5); Lymphocytes Absolute Auto 0.7 10^3/uL (1.2-3.8); Lymphocytes Percent Auto 5.6 % (20.5-60.0); Mean Corpuscular HGB Conc 30.5 g/dL (29.9-35.2); Mean Corpuscular Hemoglobin 29.7 pg (25.9-34.0); Mean Corpuscular Volume 97.6 fL (80.0-94.0); Mean Platelet Volume 9.6 fL (9.5-13.5); Monocytes Absolute Auto 0.7 10^3/uL (0.3-0.8); Monocytes Percent Auto 5.6 % (1.7-12.0); Neutrophils Absolute Auto 10.1 10^3/uL (1.4-6.5); Neutrophils Percent Auto 85.1 % (43.0-75.0); Platelet Count 312 10^3/uL (150-450); Red Blood Count 2.49 10^6/uL (4.70-6.10); Red Cell Distribution Width 17.2 % (11.0-15.0); White Blood Count 11.9 10^3/uL (4.0-11.0)
[2024-01-27 11:45] LABS: Glucometer 57 mg/dL (74-106)
[2024-01-27] MEDS: DEXTROSE 50 %-WATER 25 GM/50 ML SYRINGE IV (11:51)
--- NOTE | 2024-01-27 11:51 | PC.NURSE ---
Patient complains of feels like my sugar is low , patient awake and alert. FSBS result of 57. Dr. De Jesus notified and Dextrose IV given as ordered.
[2024-01-27 11:53] LABS: Anion Gap 16.6; BUN Creatinine Ratio 28.1; Calcium 8.4 mg/dL (8.5-10.1); Carbon Dioxide 18.9 mmol/L (21.0-32.0); Chloride 110 mmol/L (98-107); Estimated GFR (African America 34 (>=60 mL/min/1.73m^2); Estimated GFR (Non-African Ame 28 (>=60 mL/min/1.73m^2); Glucose 58 mg/dL (74-106); Potassium 4.5 mmol/L (3.5-5.1); Sodium 141 mmol/L (136-145)
[2024-01-27 11:55] LABS: Alanine Aminotransferase 27 U/L (16-63); Alkaline Phosphatase 67 U/L (46-116); Aspartate Amino Transferase 22 U/L (15-37); Bilirubin Direct 0.1 mg/dL (0.0-0.2); Bilirubin Total 0.3 mg/dL (0.2-1.0); Total Protein 5.9 g/dL (6.4-8.2)
[2024-01-27 11:56] LABS: Albumin Globulin Ratio 0.8; Albumin Level 2.7 g/dL (3.4-5.0); Globulin 3.2 g/dL
[2024-01-27 12:02] LABS: INR 1.14; Partial Thromboplastin Time 27.5 sec (22.3-36.2); Prothrombin Time 11.9 sec (9.0-11.6)
[2024-01-27 12:13] LABS: Glucometer 104 mg/dL (74-106)
[2024-01-27] MEDS: ACETAMINOPHEN 300 MG/ 30 MG CODEINE TABLET 1 TAB PO (13:15)
[2024-01-27] MEDS: PANTOPRAZOLE SODIUM 40 MG VIAL IV ×2 (13:25→17:51)
[2024-01-27 15:09] LABS: Glucometer 102 mg/dL (74-106)
[2024-01-27 16:02] LABS: Glucometer 80 mg/dL (74-106)
--- NOTE | 2024-01-27 16:36 | P.HP_ITS ---
HPI H&P: HPI History of Present Illness Chief complaint: FALL GI BLEED GENERALIZED WEAKNESS Narrative: Pt presented with increasing weakness, S/P fall, in ER found to have acute GI bleed, Admitted for workup and treatment of GI Bleed and HÉCTOR Seen on meds surg floor - seemed fatigued. No specific complaints Opioid HPI Opioid Management Most Recent Pain and Opioid Data: Last Pain Scale 8 01/27/24 16:00 01/27/24 Last Pain Assessment 01/27/24 16:00 Last ORT Total Score 0 01/27/24 15:35 01/27/24 Last ORT Risk Category Low Risk 01/27/24 15:35 01/27/24 Review of Systems ROS Status of ROS 10 or more systems reviewed and unremark able except as noted in history and below PFSH PFS Medical History Chronic respiratory failure with hypoxia ?J96.11 - Chronic respiratory failure with hypoxia (ICD-10) CKD stage 3 due to type 2 diabetes mellitus ?E11.22 - Type 2 diabetes mellitus with diabetic chronic kidney disease (ICD- 10) ?N18.30 - Chronic kidney disease, stage 3 unspecified (ICD-10) CAD (coronary artery disease) ?I25.10 - Atherosclerotic heart disease of [place] coronary artery without angina pectoris (ICD-10) Diabetes ?E11.9 - Type 2 diabetes mellitus without complications (ICD-10) Hypertension ?I10 - Essential (primary) hypertension (ICD-10) CHF (congestive heart failure) ?I50.9 - Heart failure, unspecified (ICD-10) Surgical History Hx of cholecystectomy ?Z90.49 - Acquired absence of other specified parts of digestive tract (ICD- 10) H/O heart artery stent ?Z95.5 - Presence of coronary angioplasty implant and graft (ICD-10) Family History Mother Family history of CHF (congestive heart failure) Family history of diabetes mellitus Father Family history of cancer Social History Within the past year, how often did you have a drink containing alcohol: monthly or less Smoking status: Never smoker Non-prescribed substance use: denies use Previous occupational history: retired Highest level of school completed/degree received: high school graduate Are you now , , , , never or living with a partner: In a typical week, how many times do you talk on the telephone with family, friends, or neighbors: 3 or more times per week How often do you get together with friends or relatives: 3 or more times per week How often do you attend voodoo or holiness services: never Little interest or pleasure in doing things: not at all Feeling down, depressed, or hopeless: not at all Feel stressed/tense/nervous/anxious/difficulty sleeping: not at all Do you think of yourself as: straight/heterosexual Gender Identity: male Meds Home Medications and Allergies Home Medications ?Medication ?Instructions ?Recorded ?Confirmed ?Type lisinopril 40 mg tablet 40 mg PO DAILY 10/13/23 01/27/24 History aspirin 81 mg chewable tablet 81 mg PO DAILY 11/19/23 01/27/24 History (Aspirin Childrens) atorvastatin 80 mg tablet 80 mg PO .qhs 11/19/23 01/27/24 History carvedilol 25 mg tablet 25 mg PO Q12H 11/19/23 01/27/24 History nitroglycerin 0.4 mg sublingual 0.4 mg sublingual Q5M PRN chest 11/19/23 01/27/24 History tablet pain prasugrel 10 mg tablet 10 mg PO DAILY 11/19/23 01/27/24 History glipizide 5 mg tablet 5 mg PO QAM 12/19/23 01/27/24 History insulin glargine-yfgn 100 unit/mL 60 unit subcut DAILY 12/19/23 01/27/24 History (3 mL) subcutaneous pen (Semglee (insulin glargine-yfgn) Pen) tamsulosin 0.4 mg capsule 0.4 mg PO .QHS 12/19/23 01/27/24 History amlodipine 5 mg tablet 5 mg PO .QD 01/27/24 01/27/24 History bumetanide 2 mg tablet 2 mg PO QAM 01/27/24 01/27/24 History omeprazole 40 mg capsule,delayed 40 mg PO .ACB 01/27/24 01/27/24 History release polysaccharide iron complex 150 mg 150 mg PO .QD 01/27/24 01/27/24 History iron capsule (iFerex 150) sertraline 100 mg tablet 100 mg PO QAM 01/27/24 01/27/24 History spironolactone 25 mg tablet 50 mg PO .ACB 01/27/24 01/27/24 History Allergies Allergy/AdvReac Type Severity Reaction Status Date / Time No Known Drug Allergies Allergy Verified 01/27/24 11:00 Exam Constitutional Vital Signs, click to edit/add: Last Vital Signs Temp 97.8 F 01/27/24 16:00 Pulse 73 01/27/24 16:00 Resp 18 01/27/24 16:00 BP 93/53 01/27/24 16:00 Pulse Ox 92 L 01/27/24 16:00 O2 Del Method Room Air 01/27/24 16:00 Documenting provider has reviewed patient's vital signs: yes Common normals: apparent distress (Positive distress due to mild to moderate pain, diffuse from fall) Chest Common normals: inspection of chest normal and palpation of chest normal Respiratory Common normals: normal respiratory effort and no retractions Cardio Common normals: regular rate and regular rhythm GI Common normals: Normal to inspection, nondistended, normoactive bowel sounds present, soft to palpation, non-tender, no hepatosplenomegaly and no masses Extremity Common normals: full ROM; abnormal to inspection (Right great toe with chronic ulceration) Results Labs Labs: Short CBC 01/27/24 Range/Units 11:20 WBC 11.9 H (4.0-11.0) 10^3/uL Hgb 7.4 L (14.0-18.0) g/dL Hct 24.3 L (42.0-54.0) % Plt Count 312 (150-450) 10^3/uL BMP 01/27/24 11:20 Sodium 141 Potassium 4.5 Chloride 110 H Carbon Dioxide 18.9 L BUN 66.0 H Creatinine 2.35 H Glucose 58 L Calcium 8.4 L Liver Function 01/27/24 Range/Units 11:20 Total Bilirubin 0.3 (0.2-1.0) mg/dL Direct Bilirubin 0.1 (0.0-0.2) mg/dL AST 22 (15-37) U/L ALT 27 (16-63) U/L Alkaline Phosphatase 67 (46-116) U/L Albumin 2.7 L (3.4-5.0) g/dL Assessment and Plan Assessment and Plan (1) Generalized weakness: (2) GI bleed: Plan Admission findings: Hypotension, leukocytosis, acute anemia secondary to upper gastrointestinal bleeding resulting in upper gastrointestinal blood loss anemia. With acute kidney injury with creatinine 138.2% above baseline, baseline creatinine of 1.7-2.35 on admission) Acute upper gastrointestinal blood loss anemia secondary to acute upper gastrointestinal bleeding-repeat CBC now it has been about 6 hours, if hemoglobin goes below 7 type cross and transfuse 2 units. Will hold for the next day or 2 his aspirin and prasugrel Acute kidney injury-as outlined above-repeat labs in a.m. Coronary artery disease-stent placed about 6 weeks ago-likely restart prasugrel tomorrow Hypotension-on blood pressure medication-will hold off on that for tonight Depression-continue with home medications Diabetes mellitus-insulin dependent-Home insulin restart tomorrow sliding scale for tonight BPH-continue with home medications Admission findings: Patient with likely acute upper gastrointestinal blood loss anemia May need endoscopy, acute kidney injury, will need to be monitored closely with the recent stent placement and risk of bleeding, medically necessary treatment will span 2 midnights, inpatient status
[2024-01-27 17:08] LABS: Troponin I High Sensitivity 24.5 pg/mL (4.0-76.1)
[2024-01-27] MEDS: TAMSULOSIN HCL 0.4 MG CAPSULE PO ×2 (17:51→22:12)
[2024-01-27] MEDS: ACETAMINOPHEN 500 MG TABLET 1000 MG PO (17:51)
[2024-01-27 20:42] LABS: Glucometer 176 mg/dL (74-106)
--- NOTE | 2024-01-27 21:31 | PC.NURSE ---
bilat legs, feet, and toes are covered multi dark scabbed areas, non draining.
[2024-01-27 22:09] LABS: Basophils Absolute Auto 0.1 10^3/uL (0.0-0.1); Basophils Percent Auto 0.5 % (0.2-2.0); Eosinophils Absolute Auto 0.3 10^3/uL (0.0-0.7); Eosinophils Percent Auto 2.7 % (0.9-7.0); Hemoglobin 7.1 g/dL (14.0-18.0); Immature Granulocytes Abs Auto 0.07 10^3/uL (0.00-0.03); Immature Granulocytes Pct Auto 0.6 % (0.0-0.5); Lymphocytes Percent Auto 7.9 % (20.5-60.0); Mean Corpuscular HGB Conc 30.1 g/dL (29.9-35.2); Mean Corpuscular Hemoglobin 29.7 pg (25.9-34.0); Mean Corpuscular Volume 98.7 fL (80.0-94.0); Mean Platelet Volume 10.1 fL (9.5-13.5); Monocytes Absolute Auto 0.7 10^3/uL (0.3-0.8); Monocytes Percent Auto 5.9 % (1.7-12.0); Neutrophils Absolute Auto 10.3 10^3/uL (1.4-6.5); Neutrophils Percent Auto 82.4 % (43.0-75.0); Platelet Count 356 10^3/uL (150-450); Red Blood Count 2.39 10^6/uL (4.70-6.10); Red Cell Distribution Width 17.4 % (11.0-15.0); White Blood Count 12.5 10^3/uL (4.0-11.0)
[2024-01-27 22:12] LABS: Hematocrit 23.6 % (42.0-54.0)
[2024-01-27] MEDS: TRAMADOL HCL 50 MG TABLET PO (22:12)
[2024-01-27] MEDS: ATORVASTATIN CALCIUM 40 MG TABLET 80 MG PO (22:12)
[2024-01-27] MEDS: INSULIN ASPART 300 UNIT/3 ML PEN SUBQ (22:13)
[2024-01-28] VITALS (8 sets, daily range): BP systolic 88–115; BP diastolic 45–62; PULSE 79–89; TEMP 36.3–36.9; O2SAT 91–96; BMI 28.6
[2024-01-28] MEDS: PANTOPRAZOLE SODIUM 40 MG VIAL IV ×2 (05:12→19:05)
[2024-01-28 05:38] LABS: Basophils Absolute Auto 0.1 10^3/uL (0.0-0.1); Basophils Percent Auto 0.7 % (0.2-2.0); Eosinophils Absolute Auto 0.4 10^3/uL (0.0-0.7); Eosinophils Percent Auto 3.8 % (0.9-7.0); Hemoglobin 7.5 g/dL (14.0-18.0); Immature Granulocytes Abs Auto 0.04 10^3/uL (0.00-0.03); Immature Granulocytes Pct Auto 0.4 % (0.0-0.5); Lymphocytes Absolute Auto 0.9 10^3/uL (1.2-3.8); Lymphocytes Percent Auto 8.4 % (20.5-60.0); Mean Corpuscular HGB Conc 31.4 g/dL (29.9-35.2); Mean Corpuscular Hemoglobin 30.5 pg (25.9-34.0); Mean Corpuscular Volume 97.2 fL (80.0-94.0); Mean Platelet Volume 9.9 fL (9.5-13.5); Monocytes Absolute Auto 0.7 10^3/uL (0.3-0.8); Monocytes Percent Auto 6.2 % (1.7-12.0); Neutrophils Absolute Auto 8.4 10^3/uL (1.4-6.5); Neutrophils Percent Auto 80.5 % (43.0-75.0); Platelet Count 312 10^3/uL (150-450); Red Blood Count 2.46 10^6/uL (4.70-6.10); Red Cell Distribution Width 17.6 % (11.0-15.0); White Blood Count 10.5 10^3/uL (4.0-11.0)
[2024-01-28 05:44] LABS: Hematocrit 23.9 % (42.0-54.0)
[2024-01-28 05:51] LABS: Anion Gap 13.7; BUN Creatinine Ratio 30.7; Calcium 8.4 mg/dL (8.5-10.1); Carbon Dioxide 20.9 mmol/L (21.0-32.0); Chloride 109 mmol/L (98-107); Estimated GFR (African America 37 (>=60 mL/min/1.73m^2); Estimated GFR (Non-African Ame 31 (>=60 mL/min/1.73m^2); Glucose 108 mg/dL (74-106); Potassium 4.6 mmol/L (3.5-5.1); Sodium 139 mmol/L (136-145)
[2024-01-28] MEDS: 0.9 % SODIUM CHLORIDE 1,000 ML 500 ML IV (06:29)
--- NOTE | 2024-01-28 06:58 | P.PN_ITS ---
Progress Note: Subjective Subjective Interval history: patient with no specific complaints this morning. Very hard to read is is a very flat affect Exam Constitutional Vital Signs, click to edit/add: Last Vital Signs Temp 97.4 F L 01/28/24 04:00 Pulse 86 01/28/24 04:00 Resp 16 01/28/24 04:00 BP 89/45 L 01/28/24 04:00 Pulse Ox 92 L 01/28/24 04:00 O2 Del Method Room Air 01/28/24 04:00 Documenting provider has reviewed patient's vital signs: yes Common normals: no apparent distress Chest Common normals: inspection of chest normal Respiratory Common normals: normal respiratory effort, no use of accessory muscles and clear to auscultation bilaterally Cardio Common normals: regular rate, regular rhythm and S1 normal heart sound GI Common normals: Normal to inspection, nondistended, normoactive bowel sounds present, soft to palpation and non-tender Progress Note: Objective Labs Labs: Short CBC 01/27/24 01/27/24 01/28/24 Range/Units 11:20 17:02 05:27 WBC 11.9 H 12.5 H 10.5 (4.0-11.0) 10^3/uL Hgb 7.4 L 7.1 L 7.5 L (14.0-18.0) g/dL Hct 24.3 L 23.6 L* 23.9 L* (42.0-54.0) % Plt Count 312 356 312 (150-450) 10^3/uL BMP 01/27/24 01/28/24 11:20 05:27 Sodium 141 139 Potassium 4.5 4.6 Chloride 110 H 109 H Carbon Dioxide 18.9 L 20.9 L BUN 66.0 H 66.0 H Creatinine 2.35 H 2.15 H Glucose 58 L 108 H Calcium 8.4 L 8.4 L Liver Function 01/27/24 Range/Units 11:20 Total Bilirubin 0.3 (0.2-1.0) mg/dL Direct Bilirubin 0.1 (0.0-0.2) mg/dL AST 22 (15-37) U/L ALT 27 (16-63) U/L Alkaline Phosphatase 67 (46-116) U/L Albumin 2.7 L (3.4-5.0) g/dL Progress Note: A&P Assessment and Plan (1) Generalized weakness: (2) GI bleed: Plan Admission findings: Hypotension, leukocytosis, acute anemia secondary to upper gastrointestinal bleeding resulting in upper gastrointestinal blood loss anemia. With acute kidney injury with creatinine 138.2% above baseline, baseline creatinine of 1.7-2.35 on admission) Acute upper gastrointestinal blood loss anemia secondary to acute upper gastrointestinal bleeding-globin better today, will repeat CBC later today Hypotension this morning-IV fluid bolus Elevated BNP on admission-this may be related to his elevated creatinine, will repeat BNP pending this morning no signs of fluid overload Acute kidney injury-as outlined above-repeat labs in a.m. Coronary artery disease-stent placed about 6 weeks ago-likely restart prasugrel tomorrow Hypotension-on blood pressure medication-will hold off on that for tonight Depression-continue with home medications Diabetes mellitus-insulin dependent-Home insulin restart tomorrow sliding scale for tonight BPH-continue with home medications Admission findings: Patient with likely acute upper gastrointestinal blood loss anemia May need endoscopy, acute kidney injury, will need to be monitored closely with the recent stent placement and risk of bleeding, medically necessary treatment will span 2 midnights, inpatient status ?
--- NOTE | 2024-01-28 08:25 | CM.NOTE ---
Rounds made with Dr. Bailey, PT and OT will evaluate pt today for further discharge planning.
[2024-01-28] MEDS: SERTRALINE HCL 100 MG TABLET PO (09:36)
[2024-01-28] MEDS: GLIPIZIDE 5 MG TABLET PO (09:36)
[2024-01-28] MEDS: IRON POLYSACCHARIDE COMPLEX 150 MG CAPSULE PO (09:36)
--- NOTE | 2024-01-28 09:58 | CM.NOTE ---
Important Message From Medicare discussed wit pt, pt verbalizes understanding and signs paper. Original given to pt and copy placed on pt's chart.
[2024-01-28 11:27] LABS: Glucometer 177 mg/dL (74-106)
[2024-01-28 12:14] LABS: Basophils Absolute Auto 0.1 10^3/uL (0.0-0.1); Basophils Percent Auto 0.5 % (0.2-2.0); Eosinophils Absolute Auto 0.4 10^3/uL (0.0-0.7); Eosinophils Percent Auto 2.9 % (0.9-7.0); Hemoglobin 7.1 g/dL (14.0-18.0); Immature Granulocytes Abs Auto 0.06 10^3/uL (0.00-0.03); Immature Granulocytes Pct Auto 0.4 % (0.0-0.5); Lymphocytes Absolute Auto 0.7 10^3/uL (1.2-3.8); Lymphocytes Percent Auto 4.8 % (20.5-60.0); Mean Corpuscular Volume 96.6 fL (80.0-94.0); Mean Platelet Volume 9.8 fL (9.5-13.5); Monocytes Absolute Auto 0.9 10^3/uL (0.3-0.8); Monocytes Percent Auto 6.1 % (1.7-12.0); Neutrophils Absolute Auto 12.9 10^3/uL (1.4-6.5); Neutrophils Percent Auto 85.3 % (43.0-75.0); Platelet Count 317 10^3/uL (150-450); Red Blood Count 2.37 10^6/uL (4.70-6.10); Red Cell Distribution Width 17.5 % (11.0-15.0); White Blood Count 15.2 10^3/uL (4.0-11.0)
[2024-01-28 12:16] LABS: Hematocrit 22.9 % (42.0-54.0)
--- NOTE | 2024-01-28 12:16 | DIETREC ---
Dietary consult completed this date. Mio has severe protein calorie malnutrition R/T weight loss prior to admit and loss of appetite. Recommend Ensure 1 container ( 237 ml) bid po nutrition supplement
[2024-01-28] MEDS: INSULIN ASPART 300 UNIT/3 ML PEN SUBQ (13:10)
--- NOTE | 2024-01-28 13:21 | PM.CN ---
Consult Note: [facility] Data of Consult Consult date: 01/28/24 Requesting Physician: Devante Bailey MD Primary Care Provider: Samara Schultz NP Consult Narrative Reason for consult: Foot ulcer Narrative: Patient is a 68-year-old male with type 2 diabetes admitted for acute GI bleed yesterday. I was consulted to evaluate patient's apparent ulceration. Patient is very stoic and difficult to obtain a thorough history regarding his feet. He is not sure how long he has had the wounds. 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 He denies recent injury. He relates to numbness tingling type pain which is present all the time and no increase in pain recently to his feet. cc:: CC: Devante Bailey MD Review of Systems ROS Status of ROS 10 or more systems reviewed and unremarkable except as noted in history and below [facility] Medical History (Updated 01/28/24 @ 13:28 by Zion Arnett DPM) Chronic respiratory failure with hypoxia ?J96.11 - Chronic respiratory failure with hypoxia (ICD-10) CKD stage 3 due to type 2 diabetes mellitus ?E11.22 - Type 2 diabetes mellitus with diabetic chronic kidney disease (ICD-10) ?N18.30 - Chronic kidney disease, stage 3 unspecified (ICD-10) CAD (coronary artery disease) ?I25.10 - Atherosclerotic heart disease of [place] coronary artery without angina pectoris (ICD-10) Diabetes ?E11.9 - Type 2 diabetes mellitus without complications (ICD-10) Hypertension ?I10 - Essential (primary) hypertension (ICD-10) CHF (congestive heart failure) ?I50.9 - Heart failure, unspecified (ICD-10) Surgical History Hx of cholecystectomy ?Z90.49 - Acquired absence of other specified parts of digestive tract (ICD-10) H/O heart artery stent ?Z95.5 - Presence of coronary angioplasty implant and graft (ICD-10) Family History Mother Family history of CHF (congestive heart failure) Family history of diabetes mellitus Father Family history of cancer Social History Within the past year, how often did you have a drink containing alcohol: monthly or less Smoking status: Never smoker Non-prescribed substance use: denies use Previous occupational history: retired Highest level of school completed/degree received: high school graduate Are you now , , , , never or living with a partner: In a typical week, how many times do you talk on the telephone with family, friends, or neighbors: 3 or more times per week How often do you get together with friends or relatives: 3 or more times per week How often do you attend yazidism or yarsani services: never Little interest or pleasure in doing things: not at all Feeling down, depressed, or hopeless: not at all Feel stressed/tense/nervous/anxious/difficulty sleeping: not at all Do you think of yourself as: straight/heterosexual Gender Identity: male Meds Home Medications and Allergies Home Medications ?Medication ?Instructions ?Recorded ?Confirmed ?Type lisinopril 40 mg tablet 40 mg PO DAILY 10/13/23 01/27/24 History aspirin 81 mg chewable tablet 81 mg PO DAILY 11/19/23 01/27/24 History (Aspirin Childrens) atorvastatin 80 mg tablet 80 mg PO .qhs 11/19/23 01/27/24 History carvedilol 25 mg tablet 25 mg PO Q12H 11/19/23 01/27/24 History nitroglycerin 0.4 mg sublingual 0.4 mg sublingual Q5M PRN chest 11/19/23 01/27/24 History tablet pain prasugrel 10 mg tablet 10 mg PO DAILY 11/19/23 01/27/24 History glipizide 5 mg tablet 5 mg PO QAM 12/19/23 01/27/24 History insulin glargine-yfgn 100 unit/mL 60 unit subcut DAILY 12/19/23 01/27/24 History (3 mL) subcutaneous pen (Semglee (insulin glargine-yfgn) Pen) tamsulosin 0.4 mg capsule 0.4 mg PO .QHS 12/19/23 01/27/24 History amlodipine 5 mg tablet 5 mg PO .QD 01/27/24 01/27/24 History bumetanide 2 mg tablet 2 mg PO QAM 01/27/24 01/27/24 History omeprazole 40 mg capsule,delayed 40 mg PO .ACB 01/27/24 01/27/24 History release polysaccharide iron complex 150 mg 150 mg PO .QD 01/27/24 01/27/24 History iron capsule (iFerex 150) sertraline 100 mg tablet 100 mg PO QAM 01/27/24 01/27/24 History spironolactone 25 mg tablet 50 mg PO .ACB 01/27/24 01/27/24 History Allergies Allergy/AdvReac Type Severity Reaction Status Date / Time No Known Drug Allergies Allergy Verified 01/27/24 11:00 Exam Narrative Exam Narrative: Skin: Partial-thickness dry ulceration on the distal medial aspect of the right great toe which appears to be secondary to a blister or callus being removed. There are also stable scabs on right third toe, left second and fifth toe and the anterior left leg. There are no signs of infection. Vascular: Pedal pulses are faintly palpable and there is absent digital hair. The feet are warm to the touch Neuro: Light touch sensation is intact and protective sensation is diminished Musculoskeletal: There is no pain on palpation to any of the toes. Mild hallux valgus and lesser toe contractures are noted bilaterally Constitutional Vital Signs, click to edit/add: Last Vital Signs Temp 98.4 F 01/28/24 13:14 Pulse 82 01/28/24 13:14 Resp 18 01/28/24 13:14 BP 94/55 01/28/24 13:14 Pulse Ox 96 01/28/24 13:14 O2 Del Method Room Air 01/28/24 13:14 Results Labs Labs: Short CBC 01/27/24 01/28/24 01/28/24 Range/Units 17:02 05:27 12:07 WBC 12.5 H 10.5 15.2 H (4.0-11.0) 10^3/uL Hgb 7.1 L 7.5 L 7.1 L (14.0-18.0) g/dL Hct 23.6 L* 23.9 L* 22.9 L* (42.0-54.0) % Plt Count 356 312 317 (150-450) 10^3/uL BMP 01/28/24 05:27 Sodium 139 Potassium 4.6 Chloride 109 H Carbon Dioxide 20.9 L BUN 66.0 H Creatinine 2.15 H Glucose 108 H Calcium 8.4 L Assessment and Plan Assessment and Plan (1) Generalized weakness: (2) GI bleed: (3) Chronic ulcer of right great toe, limited to breakdown of skin: Plan Patient seen and evaluated. Patient education provided I recommended Xeroform to be placed onto patient's right great toe as well as the scabbed areas on his left cárdenas and lesser toes. This was discussed with his nurse I did order an x-ray for baseline assessment Patient's ulcerations are currently stable and there is no evidence of infection. His feet are warm and pulses are palpable although faint I presume he has at minimum small vessel disease at minimum but should have a vascular workup which can be done as an outpatient which I will handle at his follow-up. Fortunately patient's ulcerations are on nonweightbearing surfaces therefore he may weight-bear as tolerated Follow-up in the wound center within 1 week from discharge Call with updates
--- NOTE | 2024-01-28 13:32 | XR_ITS ---
The [address] [address] Patient Name: ITALIA ALLEN MRN: [id number] date: 1955 Sex: M Assigned Patient Location: [place] Current Patient Location: [place] Accession/Order Number: [id number] Exam Date: 01/28/2024 13:45 Report Date: 01/29/2024 06:31 At the request of: PEDRO SAN Procedure: XR foot RT min 3V PROCEDURE: XR foot RT min 3V HISTORY: great toe ulcer COMPARISON: None. FINDINGS: BONES:Marked degenerative joint disease of the first metatarsophalangeal joint. Large degenerative enthesophytes at the Achilles tendon insertion into calcaneus; moderate size plantar spur. SOFT TISSUES:Soft tissue swelling and skin surface irregularity of the distal medial first toe consistent with patient history. EFFUSION:None visible. OTHER: Negative. XR/XR foot RT min 3V IMPRESSION: 1. No appreciable osseous changes of the bones of the first toe to suggest osteomyelitis. 2. Marked degenerative joint disease of the first metatarsophalangeal joint. Electronically authenticated by: FATEMEH HARRIS Date: 01/29/2024 06:31
--- NOTE | 2024-01-28 13:58 | SWNOTE1 ---
SW met with pt to discuss dc needs. Pt lives at home with his son. Last time pt was sent home with oxygen, but does not use it anymore as he does not need it. SW and pt spoke about rehab and that it is recommended pt go to rehab at nursing facility to get stronger. Pt voiced he has to do something as he is tired of falling. Pt would like SW to speak to his son. Pt does live in [place] and did voice he would likely go somewhere in [place]. Pt does not use any DME at home. SW to call son.
[2024-01-28 15:37] LABS: Glucometer 102 mg/dL (74-106)
[2024-01-28 20:03] LABS: Glucometer 123 mg/dL (74-106)
[2024-01-28] MEDS: ATORVASTATIN CALCIUM 40 MG TABLET 80 MG PO (21:56)
[2024-01-28] MEDS: TAMSULOSIN HCL 0.4 MG CAPSULE PO (21:56)
[2024-01-29] VITALS (7 sets, daily range): BP systolic 90–128; BP diastolic 55–69; PULSE 92–97; TEMP 36.4–36.9; O2SAT 90–94
[2024-01-29] MEDS: ACETAMINOPHEN 500 MG TABLET 1000 MG PO (05:05)
[2024-01-29 05:55] LABS: Basophils Absolute Auto 0.1 10^3/uL (0.0-0.1); Basophils Percent Auto 0.4 % (0.2-2.0); Eosinophils Absolute Auto 0.4 10^3/uL (0.0-0.7); Eosinophils Percent Auto 3.5 % (0.9-7.0); Hemoglobin 7.1 g/dL (14.0-18.0); Immature Granulocytes Abs Auto 0.08 10^3/uL (0.00-0.03); Immature Granulocytes Pct Auto 0.7 % (0.0-0.5); Lymphocytes Absolute Auto 0.8 10^3/uL (1.2-3.8); Lymphocytes Percent Auto 6.5 % (20.5-60.0); Mean Corpuscular HGB Conc 30.2 g/dL (29.9-35.2); Mean Corpuscular Hemoglobin 29.1 pg (25.9-34.0); Mean Corpuscular Volume 96.3 fL (80.0-94.0); Mean Platelet Volume 10.3 fL (9.5-13.5); Monocytes Absolute Auto 0.7 10^3/uL (0.3-0.8); Monocytes Percent Auto 5.8 % (1.7-12.0); Neutrophils Absolute Auto 9.5 10^3/uL (1.4-6.5); Neutrophils Percent Auto 83.1 % (43.0-75.0); Platelet Count 308 10^3/uL (150-450); Red Blood Count 2.44 10^6/uL (4.70-6.10); Red Cell Distribution Width 17.6 % (11.0-15.0); White Blood Count 11.5 10^3/uL (4.0-11.0)
[2024-01-29 06:04] LABS: Anion Gap 13.2; BUN Creatinine Ratio 31.1; Calcium 8.3 mg/dL (8.5-10.1); Carbon Dioxide 20.4 mmol/L (21.0-32.0); Chloride 108 mmol/L (98-107); Estimated GFR (African America 43 (>=60 mL/min/1.73m^2); Estimated GFR (Non-African Ame 35 (>=60 mL/min/1.73m^2); Glucose 132 mg/dL (74-106); Potassium 4.6 mmol/L (3.5-5.1); Sodium 137 mmol/L (136-145)
[2024-01-29 06:29] LABS: Hematocrit 23.5 % (42.0-54.0)
[2024-01-29] MEDS: PANTOPRAZOLE SODIUM 40 MG VIAL IV ×2 (09:05→21:42)
[2024-01-29] MEDS: BUMETANIDE 1 MG TABLET 2 MG PO (09:05)
[2024-01-29] MEDS: PRASUGREL HCL 10 MG TABLET PO (09:05)
[2024-01-29] MEDS: GLIPIZIDE 5 MG TABLET PO (09:06)
[2024-01-29] MEDS: IRON POLYSACCHARIDE COMPLEX 150 MG CAPSULE PO ×2 (09:06→21:43)
[2024-01-29] MEDS: SERTRALINE HCL 100 MG TABLET PO (09:06)
--- NOTE | 2024-01-29 09:14 | P.PN_ITS ---
Progress Note: Subjective Subjective Interval history: Patient still has significant weakness, attempted to stand yesterday and had near syncopal episode. Reviewed labs with patient and his BUN and creatinine is somewhat better today. Exam Constitutional Vital Signs, click to edit/add: Last Vital Signs Temp 98.0 F 01/29/24 09:00 Pulse 93 H 01/29/24 09:00 Resp 18 01/29/24 09:00 BP 105/61 01/29/24 09:00 Pulse Ox 92 L 01/29/24 09:00 O2 Del Method Room Air 01/29/24 09:00 Documenting provider has reviewed patient's vital signs: yes Common normals: no apparent distress Chest Common normals: inspection of chest normal Respiratory Common normals: normal respiratory effort, no use of accessory muscles and clear to auscultation bilaterally Cardio Common normals: regular rate, regular rhythm and S1 normal heart sound GI Common normals: Normal to inspection, nondistended, normoactive bowel sounds present, soft to palpation and non-tender Extremity Common normals: abnormal to inspection (Wound noted to the right great toe, see podiatry) Progress Note: Objective Labs Labs: Short CBC 01/28/24 01/29/24 Range/Units 12:07 05:23 WBC 15.2 H 11.5 H (4.0-11.0) 10^3/uL Hgb 7.1 L 7.1 L (14.0-18.0) g/dL Hct 22.9 L* 23.5 L* (42.0-54.0) % Plt Count 317 308 (150-450) 10^3/uL BMP 01/29/24 05:23 Sodium 137 Potassium 4.6 Chloride 108 H Carbon Dioxide 20.4 L BUN 59.0 H Creatinine 1.90 H Glucose 132 H Calcium 8.3 L Progress Note: A&P Assessment and Plan (1) Generalized weakness: (2) GI bleed: (3) Chronic ulcer of right great toe, limited to breakdown of skin: Plan Admission findings: Hypotension, leukocytosis, acute anemia secondary to upper gastrointestinal bleeding resulting in upper gastrointestinal blood loss anemia. With acute kidney injury with creatinine 138.2% above baseline, baseline creatinine of 1.7-2.35 on admission) Acute upper gastrointestinal blood loss anemia secondary to acute upper gastrointestinal bleeding-hemoglobin essentially unchanged, still 7.1, would still hold off although patient has near syncopal episode if it happens again we will try p.o. and transfuse at least 1 unit. Will reevaluate with physical therapy later today. With his difficulties yesterday medically necessary treatment will span 1 more midnight at least Near syncope-related to the anemia-see outlined plan as above Bladder outlet obstruction-had over 600 cc after postvoid, Seals catheter placed, will remove Seals catheter tomorrow, Hypotension this morning-IV fluid bolus Elevated BNP on admission-deteriorated today, check on last echocardiogram, monitor closely, patient without chest pain, will cut back on IV fluids Acute kidney injury-creatinine is improved today. Still not back to baseline Coronary artery disease-stent placed about 6 weeks ago-likely restart prasugrel tomorrow Hypotension-on blood pressure medication-will hold off on that for tonight Depression-continue with home medications Diabetes mellitus-insulin dependent-Home insulin restart tomorrow sliding scale for tonight BPH-continue with home medications Admission findings: With acute blood loss anemia, near syncope now, elevated BNP, medically necessary treatment will span at least 1 more midnight. Inpatient status maintained. ? Urinary Catheter Management Urinary Catheter Management Urethral: Cath placed during this visit: yes Urethral indwelling: Yes Reason for continuing: urinary obstruction Insertion date: 01/28/24 Insertion time: 15:30
--- NOTE | 2024-01-29 09:14 | SWNOTE1 ---
ZACH did have a conversation with pt's son Antony last evening. Pt's son does live with pt. He is in agreement that pt does need SNF for a short time and that pt has been declining. He voiced that pt's in August and then he has had 2 heart attacks. ZACH advised pt's son that pt is in agreement to go skilled somewhere and voiced he was tired of falling at home. ZACH reviewed list from Medicare.gov star ratings. Pt's son would like the [facility]. Referral sent to [facility]. Referral included face sheet, ED note, H&P, provider notes, case management report, wound consult, nursing notes, diagnostic imaging, med list, and PT/OT notes.
--- NOTE | 2024-01-29 09:21 | CM.NOTE ---
Rounds made with Dr. Bailey, no discharge today. Pt will discharge to [place] skilled when medically stable.
--- NOTE | 2024-01-29 09:25 | SWNOTE1 ---
[facility] has accepted pt. Plan is for discharge tomorrow.
[2024-01-29] MEDS: TRAMADOL HCL 50 MG TABLET PO ×2 (09:47→21:43)
--- NOTE | 2024-01-29 11:13 | REH.PTDLY ---
Physical Therapy Daily Note PT Daily Note/Assess Start: 01/29/24 11:01 Freq: Status: Active Protocol: Document 01/29/24 09:25 NICOLE (Rec: 01/29/24 11:13 KSTEINONEL [id number]) Physical Therapy Daily Note/Assessment Time In 09:11 Time Out 09:25 Pain Level 7 Pain Level 7 Subjective Pt states he hurts all over. Nursing in room and states you just told me you had no pain. Pt states well I just hurt all the time since falling, it doesn't change. Therapeutic Exercise 8 Minutes (minutes) Therapeutic Exercise 1 Units Therapeutic Exercise Instructed in B LE supine exs 10x ea for improved Treatment strength for ease of transfers and gait. Pt complains of Gabe heels hurting, AA with heel slides to avoid heels rubbing against bed. Seated LAQ and marching 10x ea with pt struggling to keep balance due to weak core/ trunk. Therapeutic Activity 6 Minutes (minutes) Therapeutic Activity 0 Units Therapeutic Activity Supine to sit transfers Mod A. Pt struggles to maintain Comments seated balance with seated exs, leaning retro and Min- Mod A to stay upright. The longer pt sits upright the worse his seated balance becomes as he fatigues. Mod A x2 with sit to stand transfers. Once upright cues for side stepping CGA x2 for safety. Pt does better than expected with gait once he is up. Pt wants to go back to bed and declines sitting in chair. Mod A with sit to supine transfers. Total Therapy 14 Minutes Total Physical 1 Therapy Units Daily Note Summary Pt struggles the most with unsupported seated balance today, requiring Min-Mod A to stay upright. Requires assist for safety with transfers and gait. Pt declines longer distance gait today and sitting up in chair. Pt is fatigued post rx. Pt will benefit from SNF stay to regain strength and stamina at this time as he cannot care for himself.
[2024-01-29 11:21] LABS: Glucometer 135 mg/dL (74-106)
--- NOTE | 2024-01-29 13:49 | SWNOTE1 ---
ZACH faxed over physician note from today, labs, vitals, PT/OT from today to [place].
--- NOTE | 2024-01-29 14:11 | SWNOTE1 ---
ZACH called and spoke to pt's son Antony and let him know that the [facility] does have an opening for pt and plan is for discharge tomorrow as long as pt is medically stable.
--- NOTE | 2024-01-29 14:26 | SWNOTE1 ---
SW completed HENS online
[2024-01-29 17:34] LABS: Glucometer 125 mg/dL (74-106)
[2024-01-29 20:22] LABS: Glucometer 128 mg/dL (74-106)
[2024-01-29] MEDS: TAMSULOSIN HCL 0.4 MG CAPSULE PO (21:42)
[2024-01-29] MEDS: ATORVASTATIN CALCIUM 40 MG TABLET 80 MG PO (21:42)
[2024-01-29] MEDS: HYOSCYAMINE SULFATE 0.125 MG TAB.SUBL SL (21:43)
[2024-01-30 05:27] VITALS: BP 111/69; PULSE 92; TEMP 36.7; O2SAT 90
[2024-01-30 05:52] LABS: Hemoglobin 7.8 g/dL (14.0-18.0); Mean Corpuscular HGB Conc 31.2 g/dL (29.9-35.2); Mean Corpuscular Hemoglobin 29.9 pg (25.9-34.0); Mean Corpuscular Volume 95.8 fL (80.0-94.0); Platelet Count 296 10^3/uL (150-450); Red Blood Count 2.61 10^6/uL (4.70-6.10); Red Cell Distribution Width 17.6 % (11.0-15.0); White Blood Count 9.5 10^3/uL (4.0-11.0)
[2024-01-30 06:10] LABS: Anion Gap 12.5; BUN Creatinine Ratio 28.5; Calcium 8.1 mg/dL (8.5-10.1); Chloride 107 mmol/L (98-107); Estimated GFR (African America 44 (>=60 mL/min/1.73m^2); Estimated GFR (Non-African Ame 36 (>=60 mL/min/1.73m^2); Glucose 128 mg/dL (74-106); Potassium 4.5 mmol/L (3.5-5.1); Sodium 136 mmol/L (136-145)
[2024-01-30 06:45] LABS: Band Neutrophils Absolute 0.1 10^3/uL (0.0-0.3); Eosinophils Absolute Manual 0.28 10^3/uL (0.00-0.70); Lymphocytes Absolute Manual 1.14 10^3/uL (1.20-3.80); Metamyelocytes Absolute Manual 0.09; Monocytes Absolute Manual 0.38 10^3/uL (0.30-0.80)
[2024-01-30 07:53] VITALS: BP 120/65; PULSE 83; TEMP 36.6; O2SAT 93
--- NOTE | 2024-01-30 08:31 | CM.NOTE ---
Rounds made with Dr. Bailey, pt will discharge today. Pt will go skilled to [facility].
--- NOTE | 2024-01-30 08:40 | REH.PTDLY ---
Physical Therapy Daily Note PT Daily Note/Assess Start: 01/29/24 11:01 Freq: Status: Active Protocol: Document 01/30/24 08:32 NICOLE (Rec: 01/30/24 08:39 NICOLE [id number]) Physical Therapy Daily Note/Assessment Time In 08:01 Time Out 08:13 Subjective Pt agreeable to therapy, but wants matute out first. Nursing removes this and then pt is willing to participate. Denies pain at this time. Therapeutic Activity 11 Minutes (minutes) Therapeutic Activity 1 Units Therapeutic Activity Mod A with supine to sit transfer. Sit to stand Comments transfer with cues to push off from bed for safety, but pt keeps grabbing RW. Min A to hold RW in place while pt pulls himself up. Gait training with RW 10 feet with cues for pt to turn around as he appears to be becoming tired. Mid turn pt just stops and stares at ground, asked pt if he is alright and he starts to close his eyes. Therapist positions self behind pt and he starts to lean back into her, called out for help and nursing enters room. Mod A x2 to hold pt upright, when asked if pt can stand up he then opens his eyes and extends to locks his knees. W/C brought to room and pushed pt over to bed. Cues for pt to then perform stand pivot transfer to bed and pt able to do so CGA x2 . Pt able to bring legs into bed Ind to supine position . Total Therapy 11 Minutes Total Physical 1 Therapy Units Daily Note Summary Attempted to further gait distance this morning, but after 10 feet pt unable to ambulate further, needing a chair to be brought in behind him. Pt does not verbally notify therapist of being fatigue, rather just stops in his tracks and starts to lean onto her. Pt however does well with transfers back into bed after incident. Pt states he just became too tired in his legs to be able to ambulate any further when asked. Pt to go to [facility] later today for rehab.
--- NOTE | 2024-01-30 08:59 | P.DS_ITS ---
DS: Providers Provider Date of admission: 01/27/24 15:26 Primary care physician: Samara Schultz NP Consults: 01/27/24 Consult to Dietitian Routine Reason for consultation: unintentional weight loss 01/27/24 16:36 Consult to Pharmacy Routine Consulting Provider: Reason for consultation: Please [place] me when Med Rec is Updated Has provider been notified: No Occupational Therapy Eval and Treat Routine Reason for consultation: Only if needed for Rehab Has provider been notified: No Physical Therapy Eval and Treat Routine Reason for consultation: Eval and Treat Has provider been notified: No 01/27/24 17:20 Consult to Podiatry Routine Consulting Provider: Zion Arnett Reason for consultation: R great toe 01/28/24 06:05 Consult to Rewards Consultant Routine Reason for consult:: [facility] DS: Diagnosis Discharge Diagnosis (1) Generalized weakness: (2) GI bleed: (3) Chronic ulcer of right great toe, limited to breakdown of skin: Plan Admission findings: Hypotension, leukocytosis, acute anemia secondary to upper gastrointestinal bleeding resulting in upper gastrointestinal blood loss anemia. With acute kidney injury with creatinine 138.2% above baseline, baseline creatinine of 1.7-2.35 on admission) Acute upper gastrointestinal blood loss anemia secondary to acute upper gastrointestinal bleeding-improving at d/c Near syncope-related to the anemia-see outlined plan as above Bladder outlet obstruction-removing seals, check bladder scan before d/c Hypotension this morning-saline locked Elevated BNP on admission-deteriorated today, check on last echocardiogram, monitor closely, patient without chest pain, will cut back on IV fluids Acute kidney injury-creatinine is improved today. improving Coronary artery disease-stent placed about 6 weeks ago-no chest pain Hypotension-stable oiff meds Depression-continue with home medications Diabetes mellitus-insulin dependent-Home insulin restart tomorrow sliding scale for tonight BPH-continue with home medications Admission findings: With acute blood loss anemia, near syncope now, elevated BNP, medically necessary treatment will span at least 1 more midnight. Inpatient status maintained. ? DS: Summary Hospital Course Hospital Course: Pt admitted with acute upper Gi bleed resulting in acute anemia, Stabilized and did not require transfusion at this time. Patient also had significant weakness and near syncopal episode x 2. Likely related to the acute blood loss anemia. Blood pressure is improving off of blood pressure medication, he also significant bladder outlet obstruction 2 days ago with 600 cc residual urine, the plan is to remove Seals catheter today, BladderScan him in 3 to 4 hours and is a postvoid residual and if this stable then will not need Seals catheter replaced, patient medically stable with increasing hemoglobin today for transfer to rehabilitation Status at Discharge Overall status at discharge: patient is not back to baseline Time Spent with Patient Time attestation: Total time spent providing and/or coordinating discharge services: Time spent: greater than 30 minutes Exam Constitutional Vital Signs, click to edit/add: Last Vital Signs Temp 97.9 F 01/30/24 07:53 Pulse 83 01/30/24 07:53 Resp 18 01/30/24 07:53 BP 120/65 01/30/24 07:53 Pulse Ox 93 L 01/30/24 07:53 O2 Del Method Room Air 01/30/24 07:53 Documenting provider has reviewed patient's vital signs: yes Common normals: no apparent distress Chest Common normals: inspection of chest normal Respiratory Common normals: normal respiratory effort, no use of accessory muscles and clear to auscultation bilaterally Cardio Common normals: regular rate, regular rhythm and S1 normal heart sound GI Common normals: Normal to inspection, nondistended, normoactive bowel sounds present, soft to palpation and non-tender Extremity Common normals: abnormal to inspection (Wound noted to the right great toe, see podiatry) DS: Data Data Completed and Pending Labs on day of discharge: Labs from last 24 hours 01/30/24 01/29/24 01/29/24 05:33 20:21 17:31 WBC 9.5 RBC 2.61 L Hgb 7.8 L Hct 25.0 L MCV 95.8 H MCH 29.9 MCHC 31.2 RDW 17.6 H Plt Count 296 MPV 10.0 Seg Neuts % (Manual) 79.0 H Band Neutrophils % 1.0 Lymphocytes % (Manual) 12.0 L Monocytes % (Manual) 4.0 Eosinophils % (Manual) 3.0 Basophils % (Manual) 0.0 L Metamyelocytes % 1.0 Neutrophils # (Manual) 7.50 H Band Neutrophils # 0.1 Lymphocytes # (Manual) 1.14 L Monocytes # (Manual) 0.38 Eosinophils # (Manual) 0.28 Basophils # (Manual) 0.00 Metamyelocytes # 0.09 Sodium 136 Potassium 4.5 Chloride 107 Carbon Dioxide 21.0 Anion Gap 12.5 BUN 53.0 H Creatinine 1.86 H Est GFR ( Amer) 44 L Est GFR (Non-Af Amer) 36 L BUN/Creatinine Ratio 28.5 Glucose 128 H Calcium 8.1 L POC Glucose 128 H 125 H 01/29/24 11:16 WBC RBC Hgb Hct MCV MCH MCHC RDW Plt Count MPV Seg Neuts % (Manual) Band Neutrophils % Lymphocytes % (Manual) Monocytes % (Manual) Eosinophils % (Manual) Basophils % (Manual) Metamyelocytes % Neutrophils # (Manual) Band Neutrophils # Lymphocytes # (Manual) Monocytes # (Manual) Eosinophils # (Manual) Basophils # (Manual) Metamyelocytes # Sodium Potassium Chloride Carbon Dioxide Anion Gap BUN Creatinine Est GFR ( Amer) Est GFR (Non-Af Amer) BUN/Creatinine Ratio Glucose Calcium POC Glucose 135 H Discharge Plan Discharge Disposition: Xfer SNF Condition: Fair Discharge Medications: New Ferrex 150 Forte 150-25-1 mg-mcg-mg Capsule 1 cap PO BID Qty: 60 11RF Continued tamsulosin 0.4 mg capsule 0.4 mg PO .QHS insulin glargine-yfgn [Semglee(insulin glarg-yfgn)Pen] 100 unit/mL (3 mL) insulin pen 60 unit SUBCUT DAILY glipizide 5 mg tablet 5 mg PO QAM atorvastatin 80 mg tablet 80 mg PO .qhs prasugrel 10 mg tablet 10 mg PO DAILY aspirin [Aspirin Childrens] 81 mg tablet,chewable 81 mg PO DAILY nitroglycerin 0.4 mg tablet, sublingual 0.4 mg sublingual Q5M PRN (Reason: chest pain) spironolactone 25 mg tablet 50 mg PO .ACB omeprazole 40 mg capsule,delayed release(DR/EC) 40 mg PO .ACB sertraline 100 mg tablet 100 mg PO QAM bumetanide 2 mg tablet 2 mg PO QAM Rx Instructions: AN ADDITIONAL TABLET IN THE AFTERNOON ON , SUN Discontinued lisinopril 40 mg tablet 40 mg PO DAILY carvedilol 25 mg tablet 25 mg PO Q12H amlodipine 5 mg tablet 5 mg PO .QD polysaccharide iron complex [iFerex 150] 150 mg iron capsule 150 mg PO .QD Print Language: Syriac Forms: Portal Instructions
[2024-01-30] MEDS: BUMETANIDE 1 MG TABLET 2 MG PO (09:16)
[2024-01-30] MEDS: PRASUGREL HCL 10 MG TABLET PO (09:16)
[2024-01-30] MEDS: IRON POLYSACCHARIDE COMPLEX 150 MG CAPSULE PO (09:16)
[2024-01-30] MEDS: GLIPIZIDE 5 MG TABLET PO (09:16)
[2024-01-30] MEDS: SERTRALINE HCL 100 MG TABLET PO (09:16)
[2024-01-30] MEDS: PANTOPRAZOLE SODIUM 40 MG VIAL IV (09:21)
[2024-01-30 10:48] VITALS: O2SAT 94
--- NOTE | 2024-01-30 11:12 | SWNOTE1 ---
ZACH faxed over dc med rec, dc summary, labs from today, and vitals from today to [facility]. ZACH completed HENS yesterday. ZACH set up trips transport for 12:30. ZACH notified nurse, Sandy, and pt's son of time. Pt is going to [facility] skilled.
--- NOTE | 2024-01-30 11:48 | CM.NOTE ---
2nd Important Message From medicare discussed with pt, pt denies any questions or concerns.
== END 2024-01-30 12:43 | DRG 378 ==
LOC: ER 14:18 → MS 15:29
PROVIDERS: Admitting Provider Family Medicine; Emergency Provider Emergency Medicine; PCP Nurse Practitioner Family; Visit Provider Family Medicine
DX: K92.2 Gastrointestinal hemorrhage, unspecified (principal); D62 Acute posthemorrhagic anemia; N17.9 Acute kidney failure, unspecified; I95.9 Hypotension, unspecified; I25.10 Atherosclerotic heart disease of native coronary artery without angina pectoris; F32.A Depression, unspecified; E11.649 Type 2 diabetes mellitus with hypoglycemia without coma; E11.621 Type 2 diabetes mellitus with foot ulcer; L97.511 Non-pressure chronic ulcer of other part of right foot limited to breakdown of skin; N40.0 Benign prostatic hyperplasia without lower urinary tract symptoms; N32.0 Bladder-neck obstruction; R29.6 Repeated falls; S00.81XA Abrasion of other part of head, initial encounter; W18.30XA Fall on same level, unspecified, initial encounter; Y92.009 Unspecified place in unspecified non-institutional (private) residence as the place of occurrence of the external cause; Z79.4 Long term (current) use of insulin; Z79.82 Long term (current) use of aspirin; Z79.84 Long term (current) use of oral hypoglycemic drugs; Z79.899 Other long term (current) drug therapy; Z95.5 Presence of coronary angioplasty implant and graft
CPT/HCPCS: 36415; 51702; 51798; 70450; 71045; 73630; 80048; 80076; 82948; 83880; 84484; 85007; 85025; 85027; 85610; 85730; 93005; 94761; 96374; 96375; 97110; 97162; 97165; 97530; 97535; 99285; G0328

== ENCOUNTER 2024-02-06 10:52 | Emergency (ER) | payer MEDICARE, SELFPAY ==
[2024-02-06] VITALS (27 sets, daily range): BP systolic 83–143; BP diastolic 52–79; PULSE 97–115; TEMP 36.7; O2SAT 72–100; BMI 62.3
--- NOTE | 2024-02-06 11:04 | ECG_ITS ---
The [facility] Test Date: 2024-02-06 Pat Name: ITALIA ALLEN Department: Room: - Gender: Male Manager Commission: : 1955 Requested By: [id number] Order Number: [id number] Reading MD: LATRICE OWEN Measurements Intervals [place] Rate: 111 P: 30 [place]: 182 QRS: 37 QRSD: 94 T: 270 QT: 324 QTc: 389 Interpretive Statements 1120 Sinus tachycardia 4068 Nonspecific Twave abnormality 9140 abnormal rhythm ECG Compared to ECG 01/27/2024 11:06:11 Sinus rhythm no longer present Electronically Signed On 02-06-2024 20:31:30 EST by LATRICE OWEN
--- NOTE | 2024-02-06 11:04 | XR_ITS ---
The [address] [address] Patient Name: ITALIA ALLEN MRN: [id number] date: 1955 Sex: M Assigned Patient Location: ER Current Patient Location: ER Accession/Order Number: [id number] Exam Date: 02/06/2024 11:50 Report Date: 02/06/2024 12:09 At the request of: ALMAZ OCHOA Procedure: XR chest 1V EXAMINATION: XR chest 1V HISTORY: weakness COMPARISON: XR chest 01/27/2024 FINDINGS: LUNGS: No significant pulmonary parenchymal abnormalities. VASCULATURE: No increased pulmonary vasculature. PLEURA: No pneumothorax, effusion, or pleural thickening. CARDIAC: No cardiomegaly or cardiac silhouette abnormality. MEDIASTINUM: No visible mass or adenopathy. BONES: No fracture or visible bone lesion. OTHER: Negative. XR/XR chest 1V IMPRESSION: 1. No acute cardiopulmonary process. Electronically authenticated by: FATEMEH HARRIS Date: 02/06/2024 12:09
--- NOTE | 2024-02-06 11:06 | ED_ITS ---
HPI - Weakness General Chief complaint: Weakness Stated complaint: OTHER Time Seen by Provider: 02/06/24 10:53 Source: patient and medical record Mode of arrival: ambulance History of Present Illness HPI Narrative: Patient presents to ED complaining of weakness. He was sent over from a care facility where he is receiving rehab. Patient is there for weakness. He is also getting wound care for both lower extremities worse on the left. He has chronic wounds from falling. He was sent over there because he was falling a lot due to weakness. He was seen here about a week ago and was unable to urinate and so Esals catheter was placed. They state he had low blood pressure at the care facility and anytime they try to stand him up he gets severely dizzy so he was sent in for further evaluation. The patient states he does not have any pain anywhere. He is diabetic and does receive insulin and he states they are treating his diabetes at the facility. He denies nausea vomiting or abdominal pain. He said he cannot tell if he has any blood loss in his bowels because he is on iron and it turns his stool black. Patient is alert and oriented although lethargic and flat affect. He said he has had an extreme weight loss ever since his he denies depression does have a flat affect. Related Data Home Medications ?Medication ?Instructions ?Recorded ?Confirmed aspirin 81 mg chewable tablet 81 mg PO DAILY 11/19/23 02/06/24 (Aspirin Childrens) atorvastatin 80 mg tablet 80 mg PO .qhs 11/19/23 02/06/24 nitroglycerin 0.4 mg sublingual 0.4 mg sublingual Q5M PRN chest 11/19/23 02/06/24 tablet pain prasugrel 10 mg tablet 10 mg PO DAILY 11/19/23 02/06/24 glipizide 5 mg tablet 5 mg PO QAM 12/19/23 02/06/24 insulin glargine-yfgn 100 unit/mL 60 unit subcut DAILY 12/19/23 02/06/24 (3 mL) subcutaneous pen (Semglee (insulin glargine-yfgn) Pen) tamsulosin 0.4 mg capsule 0.4 mg PO .QHS 12/19/23 02/06/24 bumetanide 2 mg tablet 2 mg PO QAM 01/27/24 02/06/24 omeprazole 40 mg capsule,delayed 40 mg PO .ACB 01/27/24 02/06/24 release sertraline 100 mg tablet 100 mg PO QAM 01/27/24 02/06/24 spironolactone 25 mg tablet 50 mg PO .ACB 01/27/24 02/06/24 bupropion HCl 150 mg 24 hr tablet, 150 mg PO DAILY 02/06/24 02/06/24 extended release (Wellbutrin XL) mirtazapine 15 mg tablet (Remeron) 15 mg PO DAILY 02/06/24 02/06/24 Previous Rx's ?Medication ?Instructions ?Recorded iron polysacch cplx 150 mg 1 cap PO BID #60 caps 01/30/24 iron-vit B12 25 mcg-folic acid 1 mg capsule (Ferrex) Allergies Allergy/AdvReac Type Severity Reaction Status Date / Time No Known Drug Allergies Allergy Verified 02/06/24 11:11 Review of Systems ROS Status of ROS 10 or more systems reviewed and unremark able except as noted in history and below [facility] Medical History (Updated 02/06/24 @ 13:07 by Roula Hill DO) Non-ST elevation (NSTEMI) myocardial infarction ?I21.4 - Non-ST elevation (NSTEMI) myocardial infarction (ICD-10) Syncope and collapse ?R55 - Syncope and collapse (ICD-10) Chronic respiratory failure with hypoxia ?J96.11 - Chronic respiratory failure with hypoxia (ICD-10) CKD stage 3 due to type 2 diabetes mellitus ?E11.22 - Type 2 diabetes mellitus with diabetic chronic kidney disease (ICD- 10) ?N18.30 - Chronic kidney disease, stage 3 unspecified (ICD-10) CAD (coronary artery disease) ?I25.10 - Atherosclerotic heart disease of [place] coronary artery without angina pectoris (ICD-10) Diabetes ?E11.9 - Type 2 diabetes mellitus without complications (ICD-10) Hypertension ?I10 - Essential (primary) hypertension (ICD-10) CHF (congestive heart failure) ?I50.9 - Heart failure, unspecified (ICD-10) Surgical History Hx of cholecystectomy ?Z90.49 - Acquired absence of other specified parts of digestive tract (ICD- 10) H/O heart artery stent ?Z95.5 - Presence of coronary angioplasty implant and graft (ICD-10) Family History Mother Family history of CHF (congestive heart failure) Family history of diabetes mellitus Father Family history of cancer Social History Within the past year, how often did you have a drink containing alcohol: monthly or less Smoking status: Never smoker Non-prescribed substance use: denies use Previous occupational history: retired Highest level of school completed/degree received: high school graduate Are you now , , , , never or living with a partner: In a typical week, how many times do you talk on the telephone with family, friends, or neighbors: 3 or more times per week How often do you get together with friends or relatives: 3 or more times per week How often do you attend sikh or orthodox services: never Little interest or pleasure in doing things: not at all Feeling down, depressed, or hopeless: not at all Feel stressed/tense/nervous/anxious/difficulty sleeping: not at all Do you think of yourself as: straight/heterosexual Gender Identity: male Exam Narrative Exam Narrative: Time Seen: [] Vital Signs: [Per nurse's notes.] General: [Alert] lethargic Skin: [Warm, dry, no rash.] Head: [Normocephalic, abrasion to left forehead Neck: [Supple, trachea midline.] Eye: [Pupils are equal, round and reactive to light, extraocular movements are intact, normal conjunctiva.] Ears, nose, mouth and throat: oral mucosa dry Cardiovascular: [Tachycardia no murmur.] Respiratory: Diminished breath sounds bilaterally, respirations are non-labored, breath sounds are equal.] Chest wall: [No tenderness, no deformity.] Gastrointestinal: [Soft, nontender, non distended, normal bowel sounds.] MSK: 4 out of 5 muscle strength x 4 extremities no calf pain or edema. Multiple wounds on bilateral lower extremities, multiple abrasions Lymphatics: [No lymphadenopathy.] Psychiatric: [Cooperative, appropriate mood flat affect Neurological: [Alert and oriented to person, place, time, and situation, no focal neurological deficit observed.] Constitutional Vital Signs, click to edit/add: Last Vital Signs Temp 98.0 F 02/06/24 10:55 Pulse 100 H 02/06/24 12:30 Resp 17 02/06/24 12:30 BP 126/67 02/06/24 12:30 Pulse Ox 98 02/06/24 12:30 O2 Del Method Room Air 02/06/24 10:55 Course Vital Signs Vital signs: Vital Signs Temperature 98.0 F 02/06/24 10:55 Pulse Rate 110 H 02/06/24 10:55 Respiratory Rate 18 02/06/24 10:55 Blood Pressure 90/60 02/06/24 10:55 Pulse Oximetry 94 L 02/06/24 10:55 Oxygen Delivery Method Room Air 02/06/24 10:55 Temperature 98.0 F 02/06/24 10:55 Pulse Rate 100 H 02/06/24 12:30 Respiratory Rate 17 02/06/24 12:30 Blood Pressure 126/67 02/06/24 12:30 Pulse Oximetry 98 02/06/24 12:30 Oxygen Delivery Method Room Air 02/06/24 10:55 MDM - Weakness MDM Narrative Medical decision making narrative: Patient is feeling much better after fluids. His heart rate is improved and his blood pressure is greatly improved. Patient will be sent back to his care facility. He has chronic anemia chronic renal insufficiency and chronic leg wounds. I do not see any acute issues here for admission to the hospital at this time. His lactate is normal, he is not septic. Flu and COVID were negative. Patient does not have a urinary tract infection, no nitrites no leukocytes. Patient states he is feeling a lot better after the IV fluids. Return to ER if worsening symptoms otherwise follow-up with your doctor. Differential Diagnosis Differential diagnosis: Likely anemia, hypoglycemia, sepsis and dehydration Medical Records Attestation: I reviewed the patient's medical records. Lab Data Attestation: I reviewed the patient's lab results. Labs: Lab Results 02/06/24 02/06/24 02/06/24 Range/Units 11:20 11:25 12:40 WBC 10.3 (4.0-11.0) 10^3/uL RBC 2.94 L (4.70-6.10) 10^6/uL Hgb 8.6 L (14.0-18.0) g/dL Hct 28.3 L (42.0-54.0) % MCV 96.3 H (80.0-94.0) fL MCH 29.3 (25.9-34.0) pg MCHC 30.4 (29.9-35.2) g/dL RDW 17.2 H (11.0-15.0) % Plt Count 426 (150-450) 10^3/uL MPV 9.6 (9.5-13.5) fL Seg Neuts % (Manual) 78.0 H (43.0-75.0) Lymphocytes % (Manual) 6.0 L (20.5-60.0) % Monocytes % (Manual) 6.0 (1.7-12.0) % Eosinophils % (Manual) 10.0 H (0.9-7.0) % Basophils % (Manual) 0.0 L (0.2-2.0) % Neutrophils # (Manual) 8.03 H (1.4-6.5) 10^3/uL Lymphocytes # (Manual) 0.61 L (1.20-3.80) 10^3/uL Monocytes # (Manual) 0.61 (0.30-0.80) 10^3/uL Eosinophils # (Manual) 1.03 H (0.00-0.70) 10^3/uL Basophils # (Manual) 0.00 (0.00-0.10) 10^3/uL PT 11.4 (9.0-11.6) sec INR 1.08 Sodium 140 (136-145) mmol/L Potassium 4.3 (3.5-5.1) mmol/L Chloride 107 (98-107) mmol/L Carbon Dioxide 23.2 (21.0-32.0) mmol/L Anion Gap 14.1 BUN 55.0 H (7.0-18.0) mg/dL Creatinine 2.31 H (0.70-1.30) mg/dL Est GFR ( Amer) 34 L (>=60 mL/min/1.73m^2) Est GFR (Non-Af Amer) 28 L (>=60 mL/min/1.73m^2) BUN/Creatinine Ratio 23.8 Glucose 228 H (74-106) mg/dL Lactate 1.8 (0.4-2.0) mmol/L Calcium 8.3 L (8.5-10.1) mg/dL Total Bilirubin 0.2 (0.2-1.0) mg/dL AST 20 (15-37) U/L ALT 30 (16-63) U/L Alkaline Phosphatase 86 (46-116) U/L Troponin I High Sens 59.9 (4.0-76.1) pg/mL Total Protein 6.3 L (6.4-8.2) g/dL Albumin 2.5 L (3.4-5.0) g/dL Globulin 3.8 g/dL Albumin/Globulin Ratio 0.7 Urine Color Lt. yellow (YELLOW) Urine Clarity Clear (CLEAR) Urine pH 6.0 (5.0-9.0) Ur Specific [place] 1.020 (1.005-1.025) Urine Protein Trace (NEG/TRACE) mg/dL Urine Glucose (UA) Negative (NEGATIVE) mg/dL Urine Ketones Negative (NEGATIVE) mg/dL Urine Occult Blood Trace-l (NEGATIVE) Urine Nitrite Negative (NEGATIVE) Urine Bilirubin Negative (NEGATIVE) Urine Urobilinogen 0.2 (0.2-1.0) EU/dL Ur Leukocyte Esterase Negative (NEGATIVE) Urine RBC 0-2 (0-2) #/HPF Urine WBC 5-10 A (NONE SEEN) #/HPF Ur Squamous Epith Cells Few A (NONE/RARE) #/LPF Ur Transition Epith Cell Rare A (NONE SEEN) #/LPF Urine Crystals None seen (None Seen) #/HPF Urine Bacteria Moderate A (NONE SEEN) #/HPF Urine Casts Seen A (NONE SEEN) #/LPF Hyaline Casts Few Urine Mucus Trace A (NONE SEEN) Ur Culture Indicated? Yes Influenza Type A Ag Negative Influenza Type B Ag Negative SARS-CoV-2 Ag (CV2AG) Negative (NEGATIVE) Imaging Data Chest x-ray: Radiologist's impression: ITS Impressions Chest X-Ray 02/06/24 11:04 IMPRESSION: 1. No acute cardiopulmonary process. Electronically authenticated by: FATEMEH HARRIS Date: 02/06/2024 12:09 ECG Data Attestation: I personally reviewed and interpreted this ECG as follows: Interpretation: EKG INTERPRETATION Time: [] 11:00 Rate: [] 111 Rhythm: _ [] Sinus tachycardia ST segments: _ [] No acute ST elevation or depression T waves: _ [] Ectopy: _ [] P wave/RI interval: _ [] QRS interval: _ [] QT interval: _ [] Comparison: _ [] Comparison EKG date: [] Performed by: [self] Discharge Plan Discharge Chief Complaint: Weakness Clinical Impression: Generalized weakness, Dehydration Patient Disposition: Home, Self-Care Time of Disposition Decision: 13:07 Condition: Fair Mode of Transportation: EMS Prescriptions / Home Meds: No Action tamsulosin 0.4 mg capsule 0.4 mg PO .QHS insulin glargine-yfgn [Semglee(insulin glarg-yfgn)Pen] 100 unit/mL (3 mL) insulin pen 60 unit SUBCUT DAILY glipizide 5 mg tablet 5 mg PO QAM mirtazapine [Remeron] 15 mg tablet 15 mg PO DAILY bupropion HCl [Wellbutrin XL] 150 mg tablet extended release 24 hr 150 mg PO DAILY atorvastatin 80 mg tablet 80 mg PO .qhs prasugrel 10 mg tablet 10 mg PO DAILY aspirin [Aspirin Childrens] 81 mg tablet,chewable 81 mg PO DAILY nitroglycerin 0.4 mg tablet, sublingual 0.4 mg sublingual Q5M PRN (Reason: chest pain) spironolactone 25 mg tablet 50 mg PO .ACB omeprazole 40 mg capsule,delayed release(DR/EC) 40 mg PO .ACB sertraline 100 mg tablet 100 mg PO QAM bumetanide 2 mg tablet 2 mg PO QAM Rx Instructions: AN ADDITIONAL TABLET IN THE AFTERNOON ON , , SUN Ferrex 150 Forte 150-25-1 mg-mcg-mg Capsule 1 cap PO BID Qty: 60 11RF Print Language: Divehi Instructions: Dehydration (ED) Referrals: Samara Schultz NP [Primary Care Provider] - 1 week
[2024-02-06] MEDS: 0.9 % SODIUM CHLORIDE 1,000 ML 1000 ML IV (11:30)
[2024-02-06 11:43] LABS: Hematocrit 28.3 % (42.0-54.0); Hemoglobin 8.6 g/dL (14.0-18.0); Mean Corpuscular HGB Conc 30.4 g/dL (29.9-35.2); Mean Corpuscular Hemoglobin 29.3 pg (25.9-34.0); Mean Corpuscular Volume 96.3 fL (80.0-94.0); Mean Platelet Volume 9.6 fL (9.5-13.5); Platelet Count 426 10^3/uL (150-450); Red Blood Count 2.94 10^6/uL (4.70-6.10); Red Cell Distribution Width 17.2 % (11.0-15.0); White Blood Count 10.3 10^3/uL (4.0-11.0)
[2024-02-06 11:58] LABS: Eosinophils Absolute Manual 1.03 10^3/uL (0.00-0.70); Lymphocytes Absolute Manual 0.61 10^3/uL (1.20-3.80); Monocytes Absolute Manual 0.61 10^3/uL (0.30-0.80); Segmented Neut Absolute Manual 8.03 10^3/uL (1.4-6.5)
[2024-02-06 11:59] LABS: INR 1.08; Prothrombin Time 11.4 sec (9.0-11.6)
[2024-02-06 12:08] LABS: Alanine Aminotransferase 30 U/L (16-63); Albumin Globulin Ratio 0.7; Albumin Level 2.5 g/dL (3.4-5.0); Alkaline Phosphatase 86 U/L (46-116); Anion Gap 14.1; Aspartate Amino Transferase 20 U/L (15-37); BUN Creatinine Ratio 23.8; Bilirubin Total 0.2 mg/dL (0.2-1.0); Calcium 8.3 mg/dL (8.5-10.1); Carbon Dioxide 23.2 mmol/L (21.0-32.0); Chloride 107 mmol/L (98-107); Estimated GFR (African America 34 (>=60 mL/min/1.73m^2); Estimated GFR (Non-African Ame 28 (>=60 mL/min/1.73m^2); Globulin 3.8 g/dL; Glucose 228 mg/dL (74-106); Potassium 4.3 mmol/L (3.5-5.1); Sodium 140 mmol/L (136-145); Total Protein 6.3 g/dL (6.4-8.2); Troponin I High Sensitivity 59.9 pg/mL (4.0-76.1)
[2024-02-06 12:16] LABS: Influenza Virus A Antigen Negative; Influenza Virus B Antigen Negative; Internal Control Within Normal Limits; SARS-CoV-2 Ag NEGATIVE (NEGATIVE)
[2024-02-06 12:16] LABS: Lactate/Lactic Acid 1.8 mmol/L (0.4-2.0)
[2024-02-06 12:53] LABS: Bilirubin Urine NEGATIVE (NEGATIVE); Blood Urine TRACE-L (NEGATIVE); Clarity Urine CLEAR (CLEAR); Color Urine LT. YELLOW (YELLOW); Glucose Urine UA NEGATIVE (NEGATIVE); Ketones Urine NEGATIVE (NEGATIVE); Leukocyte Esterase Urine NEGATIVE (NEGATIVE); Nitrite Urine NEGATIVE (NEGATIVE); Protein Urine TRACE mg/dL (NEG/TRACE); Urobilinogen Urine 0.2 EU/dL (0.2-1.0)
[2024-02-06 12:57] LABS: Urine Microscopic Indicated YES
[2024-02-06 13:07] LABS: RBC Urine 0-2 #/HPF (0-2)
[2024-02-06 13:08] LABS: Bacteria Urine MODERATE #/HPF (NONE SEEN); Cast Seen? SEEN #/LPF (NONE SEEN); Crystals Seen? None Seen #/HPF (None Seen); Mucus Urine TRACE (NONE SEEN); Squamous Epithelial Cell Urine FEW #/LPF (NONE/RARE); Transitional Epi Cells Urine RARE #/LPF (NONE SEEN)
[2024-02-06 13:09] LABS: Hyaline Casts Urine FEW; Urine Culture Indicated YES
== END 2024-02-06 14:35 | disposition home or self-care (01) ==
PROVIDERS: Emergency Provider Emergency Medicine; PCP Nurse Practitioner Family
DX: E86.0 Dehydration (principal); R53.1 Weakness; Z91.81 History of falling; Z63.4 Disappearance and death of family member; Z79.4 Long term (current) use of insulin; Z79.84 Long term (current) use of oral hypoglycemic drugs; Z90.49 Acquired absence of other specified parts of digestive tract; D64.9 Anemia, unspecified; E11.22 Type 2 diabetes mellitus with diabetic chronic kidney disease; N18.9 Chronic kidney disease, unspecified; S81.802A Unspecified open wound, left lower leg, initial encounter; S81.801A Unspecified open wound, right lower leg, initial encounter
CPT/HCPCS: 36415; 71045; 80053; 81001; 83605; 84484; 85007; 85027; 85610; 87040; 87086; 87150; 87186; 87804; 87811; 93005; 96360; 96361; 99285

== ENCOUNTER 2024-02-29 06:15 | Emergency (ER) | payer MEDICARE, OTHER, SELFPAY ==
[2024-02-29 06:20] VITALS: BP 96/54; PULSE 111; TEMP 37; O2SAT 97; BMI 27.8
--- OUTSIDE RECORDS SUMMARY | 2024-02-29 06:22 | XMS_ITS | CCD ---
Author Organization [facility] Care Team Providers Care Coater Associate Name Role Phone NON STAFF Primary Care Provider UnavailMD Alondra Rodriguez Admit Provider MD Ann Henao Other Provider MD Yovanny Rivera Attending Provider Alondra Gonzales Admitting Unavailable NON STAFF Primary Care Unavailable Yovanny Rivera Attending Unavailab Ann Zamarripa Consulting Unavailable ANN HENAO Attending Unavailable SAMARA VILLASEÑOR Primary Care Physician FATEMEH COLEMAN Attending Unavailable Unavailable Primary Care Provider Unavailrc e Unavailable Primary Care Provider UnavailANN Cabral Referring Unavailable MARIO HECK Admitting Unavailable MELLY BENÍTEZ Attending Unavailable LORIN BUSH Consulting Unavailable SAHIL WILEY Attending Unavailable INDERJIT MICHELLE Referring Unavailable FOSTER NOLAN Admitting Unavailable DENIZ GRIGSBY Referring Unavailable SHERRI ARMSTRONG Attending Unavailable LORIN BUSH Consulting Unavailable Siobhan Forde RN Unavailable Unavailable Marine Grier Attending Unavailable Marine Grier Attending Unavailable SHAMAR PHAM Attending Unavailab Marine Patel Attending Unavailable SHAMAR PHAM Attending Unavailab SHAMAR Escobar Attending Abbyab akhil Allergies Allergy Classification Reported Allergen(s) Allergy Type Date of Onset Reaction(s) Facility (1 source) No Known Medication Allergies; Translations: [No Known Medication Allergies] Propensity to adverse reactions (disorder) [facility] Repository Medications Current Medications Medication Drug Class(es) Dates Sig (Normalized) Sig (Original) 3 ML insulin glargine-yfgn 100 UNT/ML Pen Injector [Semglee] (4 sources) Start: 11-22-2023 Semglee (Prefilled Pen) 100 units/mL subcutaneous solution Refills(s) 0 Start Date: 11/22/23 Status: Ordered acetaminophen 325 mg oral tablet (4 sources) Start: 12-27-2023 take 3 tablets by mouth every six hours for pain acetaminophen (Tylenol) 325 mg tablet Indications: Osteoarthritis, unspecified osteoarthritis type, unspecified site Take 3 tablets (975 mg) by mouth every 6 hours if needed for mild pain (1 - 3) or moderate pain (4 - 6). 12/27/2023 Active Start: 12-23-2023 take 1 tablet by eloisa th every six hours as needed 975 mg, oral, Every 6 hours PRN, pain mild (1-3), first line, Starting on 12/23/23 at 1021, Administer tablet or oral liquid per patient preference., If ordered PRN for pain, nurse is permitted to administer this medication for higher pain scores based on patient preference? Yes Start: 10-18-2023 take 1 tablet by eloisa th every six hours as needed 975 mg, oral, Every 6 hours PRN, pain mild (1-3), first line, Starting on Symone 10/18/23 at 1847, Administer tablet or oral liquid per patient preference., If ordered PRN for pain, nurse is permitted to administer this medication for higher pain scores based on patient preference? Yes Start: 10-16-2023 End: 10-18-2023 take 1 tablet by mouth every four hours as needed 650 mg, oral, Every 4 hours PRN, pain mild (1-3), first line, Starting on Sun10/16/23 at 0044, Administer tablet or oral liquid per patient preference., If ordered PRN for pain, nurse is permitted to administer this medication for higher pain scores based on patient preference? Yes amLODIPine 5 mg oral tablet (2 sources) Dihydropyridine Calcium Channel Farhad Start: 12-28-2023 take 1 tablet by mouth once daily amLODIPine (Norvasc) 5 mg tablet Indications: Acute on chronic systolic (congestive) heart failure Take 1 tablet (5 mg) by mouth once daily. 30 tablet 2 12/28/2023 Active Start: 12-27-2023 take 5 mg by mouth once daily 5 mg, oral, Daily, First dose on Symone 12/27/23 at 0900 aspirin 81 mg oral capsule (13 sources) Platelet Aggregation Inhibitor, Nonsteroidal Anti-inflammatory Drug Start: 11-22-2023 take 1 mg by mouth every twenty-four hours aspirin 81 mg oral capsule mg cap(s), Oral, q24hr Start Date: 11/22/23 Status: Ordered Start: 10-25-2023 End: 04-22-2024 take 81 mg by mouth once daily 81 mg, oral, Daily, Fir st dose on 12/23/23 at 0900 Start: 10-16-2023 take 81 mg by mouth once daily 81 mg, oral, Daily, First dose on Sun10/16/23 at 0900 Start: 10-15-2023 take 1 tablet by mouth once da laly aspirin 81 MG EC tablet Take 81 mg by mouth Daily 10/15/2023 Active atorvastatin 80 mg oral tablet (12 sources) HMG-CoA Reductase Inhibitor Start: 10-16-2023 End: 01-22-2024 take 1 tablet by mouth once daily atorvastatin 80 mg Tab 80 mg = 1 tab(s), Oral, Daily Start Date: 11/22/23 Status: Ordered bumetanide 2 mg oral tablet (20 sources) Loop Diuretic Start: 12-24-2023 take 2 mg by mouth twice daily 2 mg, oral, 2 times daily (morning and late afternoon), First dose on 12/24/23 at 1700 Start: 12-23-2023 End: 12-24-2023 2 mg, intravenous, at 240 mL /hr, Administer over 2 Minutes, 2 times daily (morning and late afternoon), First dose (after last modification) on 12/23/23 at 0800 Start: 12-22-2023 2 mg, intraven ous, at 240 mL/hr, Administer over 2 Minutes, Once, On 12/23/23 at 1815, For 1 dose Start: 11-22-2023 bumetanide 2 m g Tab 2 mg = 1 tab(s), Oral Start Date: 11/22/23 Status: Ordered Start: 11-02-2023 End: 11-13-2023 bumetanide (Bumex) 2 mg tabl et Indications: Edema, unspecified type Take one tablet in the morning and on , and Sunday only take one tablet in the afternoon 130 tablet 2 11/02/2023 11/13/2023 Discontinued Start: 10-18-2023 End: 10-21-2023 take 2 mg by mouth once daily 2 mg, oral, Daily, First dose (after last modification) on 10/21/23 at 1115 Start: 10-08-2023 End: 11-27-2024 bumetanide (Bumex) 2 mg tabl et Indications: Edema, unspecified type Take 1 tablet (2 mg) by mouth once daily. Do not fill before November 28, 2023. 30 tablet 2 11/28/2023 11/27/2024 Active carvedilol 25 mg oral tablet (13 sources) alpha-Adrenergic Farhad, beta-Adrenergic Farhad Start: 10-18-2023 End: 01-22-2024 take 1 tablet by mouth twice daily carvedilol 25 mg Tab 25 mg = 1 tab(s), Oral, BID Start Date: 11/22/23 Status: Ordered Start: 10-17-2023 End: 10-18-2023 take 12.5 mg by mouth twice daily 12.5 mg, oral, 2 maame es daily, First dose on Sun10/17/23 at 2100 celecoxib 200 mg oral capsule (3 sources) Nonsteroidal Anti-inflammatory Drug Start: 11-09-2023 diclofenac sodium 0.01 mg/mg topical gel (12 sources) Nonsteroidal Anti-inflammatory Drug Start: 12-23-2023 4 g, Topical, 4 times daily PRN, pain mild (1-3), first line, Starting on 12/23/23 at 0035, Apply to back Start: 10-18-2023 End: 11-23-2023 diclofenac sodium (Voltaren) 1 % gel Indications: Other chronic pain Apply 4.5 inches (4 g) topically 4 times a day as needed (Apply to back and hips as needed for pain). 100 g 1 10/24/2023 11/23/2023 Active Start: 10-08-2023 End: 10-24-2023 take 1 tablet by mouth twice daily diclofenac (Voltaren) 75 mg EC tablet Take 1 tablet (75 mg) by mouth 2 times a day. 10/13/2023 10/24/2023 Discontinued (Stop Taking at Discharge) docusate sodium 100 mg oral capsule (1 source) Start: 12-22-2023 take 100 mg by mouth twice daily for constipation 100 mg, oral, 2 times daily, First dose on 12/22/23 at 1130, Bowel Regimen - for prevention of constipation Hold for loose stools docusate sodium 50 mg / sennosides, assisted 8.6 mg oral tablet (1 source) Start: 10-16-2023 take 2 tablets by mouth twice daily for constipation 2 tablet, oral, 2 times daily, First dose on Tu10/16/23 at 0900, Bowel Regimen - for prevention of constipation Hold for loose stools empagliflozin 10 mg oral tablet (1 source) Sodium-Glucose Cotransporter 2 Inhibitor Start: 10-24-2023 End: 10-24-2023 empagliflozin (Jardiance) 10 mg Indications: Acute on chronic systolic (congestive) heart failure (Multi) , Type 2 diabetes mellitus without complication, with long-term current use of insulin (Multi) Take 1 tablet (10 mg) by mouth once daily. 30 tablet 2 10/24/2023 10/24/2023 Discontinued (Stop Taking at Discharge) 0.4 ml enoxaparin sodium 100 mg/ml prefilled syringe (2 sources) Low Molecular Weight Heparin Start: 12-24-2023 inject 40 mg by subcutaneous injection every twenty-four hours 40 mg, subcutaneous, Every 24 hours, First dose on 12/24/23 at 1215, Indications: deep vein thrombosis prevention Start: 10-18-2023 inject 40 mg by subc utaneous injection every twenty-four hours 40 mg, subcutaneous, Every 24 hours, First dose on Symone 10/18/23 at 2100, Indications: deep vein thrombosis prevention 10 ml furosemide 10 mg/ml injection (1 source) Loop Diuretic Start: 10-15-2023 take 40 mg intravenously twice daily Furosemide Active 40 MG IV-PUSH BID@0800,1600 0 October 15, 2023 12:00am glipiZIDE 5 mg oral tablet (11 sources) Sulfonylurea Start: 11-22-2023 take 1 tablet by mouth once daily glipiZIDE 5 mg Tab 5 mg = 1 tab(s), Oral, Daily Start Date: 11/22/23 Status: Ordered Start: 10-14-2023 take 2 tablets by mo [facility] in the morning glipiZIDE (Glucotrol) 5 MG tablet Take 10 mg by mouth in the morning and 10 mg in the evening. Take before meals. 10/14/2023 Active Start: 10-14-2023 take 10 mg by mouth twice cora y Glipizide Active 10 MG PO Twice daily October 14, 2023 12:00am Start: 10-13-2023 take 1 tablet by eloisa twice daily before mealtime glipiZIDE (Glucotrol) 10 mg tablet Take 1 tablet (10 mg) by mouth 2 times a day before meals. 10/13/2023 Active glucagon 3 mg nasal powder (4 sources) Antihypoglycemic Agent Start: 12-27-2023 glucago n (Baqsimi) 3 mg/actuation spray,non-aerosol Indications: Type 2 diabetes mellitus without complication, with long-term current use of insulin (Multi) Administer 1 spray into affected nostril(s) every 15 minutes if needed (For low blood sugar). 2 each 2 12/27/2023 Active Start: 12-22-2023 1 mg, intramus cular, Every 15 min PRN, For blood glucose less than or equal to 70 mg/dL and no IV access, Give until blood glucose is 70 mg/dL or greater. If patient DOES NOT HAVE secure IV access & patient is unconscious, NPO or is unable to eat or drink., Starting on 12/22/23 at 1437 Start: 10-16-2023 1 mg, intramus cular, Every 15 min PRN, blood glucose 41 to 70 mg/dL - see comments, For blood glucose 41 to 70 mg/dL and no IV access, Starting on 10/22/23 at 1112, Give until blood glucose is 100 mg/dL or greater. If patient DOES NOT HAVE secure IV access & patient is unconscious, NPO or is unable to eat or drink. Glucommander - insulin glarg ine (Lantus) injection 1-125 Units (1 source) Start: 12-22-2023 Glucommander - insulin glargine (Lantus) injection 1-125 Units glucose 4000 mg chewable tab let (5 sources) Start: 12-27-2023 glucose 4 gram chewable tablet Indications: Type 2 diabetes mellitus without complication, with long-term current use of insulin (Multi) Chew 2 tablets (8 g) if needed for low blood sugar - see comments. 50 tablet 3 12/27/2023 Active Start: 12-22-2023 10-50 mL, intr avenous, Every 15 min PRN, for blood glucose less than or equal to 70 mg/dL, Starting on 12/22/23 at 1437, May repeat until Blood Glucose level reaches 70 mg/dL or greater. Push 2 - 3 mL/minute if patient has secure IV access. Start: 10-22-2023 12.5 g, intrav enous, Every 15 min PRN, For blood glucose 41 to 70 mg/dL, Starting on 10/22/23 at 1112, May repeat until blood glucose level reaches 100 mg/dL or greater. Push 2 - 3 mL/minute if patient has secure IV access. Start: 10-16-2023 3 ml insulin detemir 100 unt/ml pen injector (7 sources) Insulin Analog Start: 10-13-2023 inject 12 [IU] by subcutaneous injection twice [...] ml insulin glargine 100 unt/ml pen injector (11 sources) Insulin Analog Start: 12-27-2023 End: 03-26-2024 inject 50 [IU] by subcutaneous injection once daily insulin glargine (Lantus) 100 unit/mL (3 mL) pen Indications: Type 2 diabetes mellitus without complication, with long-term current use of insulin (Multi) Inject 50 Units under the skin once daily. 15 mL 2 12/27/2023 03/26/2024 Active Start: 10-23-2023 inject 30 [IU] by britt bcutaneous injection once daily 30 Units, subcutaneous, Daily, First dose (after last modification) on Sun10/23/23 at 0900, Patient will be NPO for procedure Start: 10-22-2023 inject 60 [IU] by britt bcutaneous injection once daily 60 Units, subcutaneous, Daily, First dose (after last modification) on Sun10/22/23 at 0900, On hold since Sun10/22/2023 at 1113 until manually unheld Start: 10-21-2023 End: 10-21-2023 inject 40 [IU] by subcutaneous injection once daily 40 Units, subcutaneous, Daily, First dose (after last modification) on Sun10/21/23 at 0900 Start: 10-16-2023 End: 10-20-2023 inject 30 [IU] by subcutaneous injection once daily 30 Units, subcutaneous, Daily, First dose on Sun10/16/23 at 0900 Start: 10-15-2023 End: 12-27-2023 inject 60 [IU] by subcutaneous injection once daily insulin glargine (Lantus) 100 unit/mL (3 mL) pen Inject 60 Units under the skin once daily. 10/15/2023 12/27/2023 Discontinued Start: 10-15-2023 Lantus SoloSta r 100 UNIT/ML [...] 14, 2023 12:00am October 15, 2023 5:57pm insulin lispro 100 unt/ml injectable solution (5 sources) Insulin Analog Start: 10-21-2023 0-10 Units, britt bcutaneous, 4 times daily before meals and nightly, First dose (after last modification) on Sun10/21/23 at 0700, Do not hold when patient is not eating, continue order as scheduled for hyperglycemia management. Insulin Lispro Corrective Scale #2 Hypoglycemia protocol Call LIP unit(s) if Blood Glucose is between 0 - 70 mg/dL 0 unit(s) if Blood glucose is between 71-150 2 unit(s) if Blood glucose is between 151-200 4 unit(s) if Blood glucose is between 201-250 6 unit(s) if Blood glucose is between 251-300 8 unit(s) if Blood glucose is between 301-350 10 unit(s) if Blood glucose is between 351-400 Notify provider unit(s) if Blood Glucose is greater than 400 mg/dL Start: 10-18-2023 End: 10-20-2023 0-10 Units, subcutaneous, Ev fuad 4 hours, First dose on Sun10/18/23 at 1015, Insulin Lispro Corrective Scale #2 Hypoglycemia protocol Call LIP unit(s) if Blood Glucose is between 0 - 70 mg/dL 0 unit(s) if Blood glucose is between 71-150 2 unit(s) if Blood glucose is between 151-200 4 unit(s) if Blood glucose is between 201-250 6 unit(s) if Blood glucose is between 251-300 8 unit(s) if Blood glucose is between 301-350 10 unit(s) if Blood glucose is between 351-400 Notify provider unit(s) if Blood Glucose is greater than 400 mg/dL Start: 10-16-2023 End: 10-21-2023 0-5 Units, subcutaneous, 3 t imes daily (morning, midday, late afternoon), First dose on Sun10/16/23 at 0800, Do not hold when patient is not eating, continue order as scheduled for hyperglycemia management. Insulin Lispro Corrective Scale #1 Hypoglycemia protocol Call LIP unit(s) if Blood Glucose is between 0 - 70 mg/dL 0 unit(s) if Blood glucose is between 71-150 1 unit(s) if Blood glucose is between 151-200 2 unit(s) if Blood glucose is between 201-250 3 unit(s) if Blood glucose is between 251-300 4 unit(s) if Blood glucose is between 301-350 5 unit(s) if Blood glucose is between 351-400 Notify provider unit(s) if Blood Glucose is greater than 400 mg/dL lidocaine 0.04 mg/mg medicated patch (2 sources) Antiarrhythmic, Amide Local Anesthetic Start: 12-23-2023 apply 1 dose transdermal route once daily 1 patch, transdermal, Administer over 12 Hours, Daily, First dose on 12/23/23 at 0900, Apply to back. Patch will remain on for 12 hours, then removed for [address] patch directly over any surgical incisions or wounds. Start: 10-16-2023 apply 1 dose transde rmal route once daily 1 patch, transdermal, Administer over 12 Hours, Daily, First dose on Sun10/16/23 at 1400, Apply to back. Patch will remain on for 12 hours, then removed for [address] patch directly over any surgical incisions or wounds. lisinopril 20 mg oral tablet (16 sources) Angiotensin Converting Enzyme Inhibitor Start: 12-23-2023 take 40 mg by mouth once daily 40 mg, oral, Daily, First dose on 12/23/23 at 0900 Start: 11-22-2023 lisinopril 40 mg Tab Refills(s) 0 Start Date: 11/22/23 Status: Ordered Start: 10-22-2023 take 40 mg by mouth once daily 40 mg, oral, Daily, First dose (after last modification) on 10/22/23 at 0900 Start: 10-21-2023 30 mg, oral, O nce, On 10/21/23 at 1115, For 1 dose, For total lisinopril dose of 40 mg today Start: 10-20-2023 End: 10-21-2023 take 10 mg by mouth once daily 10 mg, oral, Daily, Fir st dose on 10/20/23 at 0945 Start: 10-13-2023 End: 10-24-2023 take 1 tablet by mouth once daily lisinopril 40 mg tablet Indications: Acute on chronic systolic (congestive) heart failure Take 1 tablet (40 mg) by mouth once daily. 90 tablet 2 10/24/2023 Active melatonin 5 mg oral tablet (2 sources) Start: 12-22-2023 take 5 mg by mouth once daily as needed for sleep 5 mg, oral, Nightly PRN, sleep, Starting on 12/22/23 at 1115 Start: 10-16-2023 take 3 mg by mouth o nce daily as needed for sleep 3 mg, oral, Nightly PRN, sleep, Starting on Sun10/16/23 at 0044 nitroglycerin 0.4 mg sublingual tablet (11 sources) Nitrate Vasodilator Start: 10-16-2023 nitroglyce rin 0.4 mg sublingual Tab 0.4 mg = 1 tab(s), SubLingual, q5min, PRN for chest pain Start Date: 11/22/23 Status: Ordered omeprazole 40 mg delayed release oral capsule (2 sources) Proton Pump Inhibitor Start: 11-09-2023 omeprazole (PriLOSEC ) [address] capsule once every 24 hours. 11/09/2023 Active pantoprazole 40 mg injection (3 sources) Proton Pump Inhibitor Start: 12-24-2023 40 mg, intravenous, 2 times daily, First dose on Sun12/24/23 at 2100 Start: 12-23-2023 End: 12-24-2023 take 40 mg by mouth once daily before breakfast 40 mg, oral, Daily before breakfast, First dose on 12/23/23 at 0700, Do not crush, chew, or split. Start: 10-16-2023 take 40 mg by mouth once daily before breakfast 40 mg, oral, Daily before breakfast, First dose on Sun10/16/23 at 0745, Do not crush, chew, or split. perflutren protein A microsphere (Optison) injection 0.5 mL (1 source) Start: 12-24-2023 0.5 mL, intravenous, Once in imaging, Starting on Sun12/24/23 at 1836, For 1 dose, CV Medications polyethylene glycol 3350 [id number] mg powder for oral solution (1 source) Osmotic Laxative Start: 12-22-2023 take 17 g by mouth every twenty-four hours as needed 17 g, oral, Daily PRN, constipation, Starting on 12/22/23 at 1115, Bowel Regimen - for prevention of constipation. polysaccharide iron complex 150 mg oral capsule (1 source) Start: 12-27-2023 take 1 capsule by mouth once daily iron polysaccharides (Nu-Iron,Niferex) 150 mg iron capsule Indications: Stage 3a chronic kidney disease (Multi) , Iron deficiency anemia due to chronic blood loss Take 1 capsule (150 mg) by mouth once daily. 30 capsule 2 12/27/2023 Active prasugrel 10 mg oral tablet (12 sources) P2Y12 Platelet Inhibitor Start: 10-23-2023 End: 10-22-2024 take 1 tablet by mouth once daily prasugrel 10 mg Tab 10 mg = 1 tab(s), Oral, Daily Start Date: 11/22/23 Status: Ordered sertraline 100 mg oral tablet (8 sources) Serotonin Reuptake Inhibitor Start: 12-28-2023 take 1 tablet by mouth once daily sertraline (Zoloft) 100 mg tablet Indications: Grief Take 1 tablet (100 mg) by mouth once daily. 30 tablet 2 12/28/2023 Active Start: 12-23-2023 take 100 mg by mouth once cora y 100 mg, oral, Daily, First dose on 12/23/23 at 0900 Start: 11-22-2023 Zoloft Oral, D aily, Refills(s) 0 Start Date: 11/22/23 Status: Ordered Start: 11-09-2023 End: 12-09-2023 take 1 tablet by mouth once daily sertraline (Zoloft) 50 mg tablet Take 1 tablet (50 mg) by mouth once daily. 11/09/2023 Active spironolactone 25 mg oral tablet (4 sources) Aldosterone Antagonist Start: 12-25-2023 take 50 mg by mouth once daily 50 mg, oral, Daily, First dose (after last modification) on Sun12/25/23 at 0900 Start: 12-23-2023 End: 12-24-2023 take 25 mg by mouth once daily 25 mg, oral, Daily, Fir st dose (after last modification) on 12/23/23 at 0900 Start: 11-13-2023 End: 11-12-2024 take 2 tablets by mouth once daily spironolactone (Aldactone) 25 mg tablet Indications: Edema, unspecified type Take 2 tablets (50 mg) by mouth once daily. 90 tablet 3 11/13/2023 11/12/2024 Active sulfur hexafluoride microsphr (Lumason) injection 24.28 mg (1 source) Start: 12-24-2023 24.28 mg (2 mL ), intravenous, Once in imaging, Starting on 12/24/23 at 1836, For 1 dose, CV Medications, Follow administration with 5 mL NaCL 0.9% injection. tamsulosin hydrochloride 0.4 mg oral capsule (4 sources) alpha-Adrenerg ic Farhad Start: 11-22-2023 take 1 capsule by mouth once daily tamsulosin 0.4 mg Cap 0.4 mg = 1 cap(s), Oral, Daily, # 30 cap(s), Refills(s) 11, Pharmacy: [id number], 178, cm, 11/22/23 15:47:00 EDT, Height/Length Dosing, 104.4, kg, 11/22/23 15:47:00 EDT, Weight Dosing Start Date: 11/22/23 Status: Ordered ticagrelor 90 mg oral tablet (1 source) Start: 10-22-2023 End: 10-24-2023 take 1 tablet by mouth twice daily ticagrelor (Brilinta) 90 mg tablet Indications: NSTEMI (non-ST elevated myocardial infarction) (Multi) Take 1 tablet (90 mg) by mouth 2 times a day. 60 tablet 3 10/22/2023 10/24/2023 Discontinued (Stop Taking at Discharge) traMADol hydrochloride 50 mg oral tablet (2 sources) Opioid Agonist Start: 12-23-2023 take 1 tablet by mouth every eight hours as needed 50 mg, oral, Every 8 hours PRN, pain severe (7-10), first line, Starting on 12/23/23 at 0731, Max of 300 mg daily for patients > 75 years of age., If ordered PRN for pain, nurse is permitted to administer this medication for higher pain scores based on patient preference? Yes Start: 10-21-2023 take 1 tablet by eloisa th every eight hours as needed 25 mg, oral, Every 8 hours PRN, pain severe (7-10), first line, Starting on 10/21/23 at 1044, Max of 300 mg daily for patients > 75 years of age., If ordered PRN for pain, nurse is permitted to administer this medication for higher pain scores based on patient preference? Yes Completed/Discontinued Medications Medication Drug Class(es) Dates Sig (Normalized) Sig (Original) acetaminophen 325 mg / oxyCODONE hydrochloride 5 mg oral tablet (2 sources) Opioid Agonist Start: 12-22-2023 End: 12-22-2023 take 1 tablet by mouth once as needed for pain 1 tablet, oral, Once, On 12/22/23 at 2130, For 1 dose, If ordered PRN for pain, nurse is permitted to administer this medication for higher pain scores based on patient preference? Yes Start: 10-17-2023 End: 10-18-2023 take 1 tablet by mouth every eight hours as needed 1 tablet, oral, Every 8 hours PRN, pain severe (7-10), first line, Starting on Sun10/17/23 at 2015, If ordered PRN for pain, nurse is permitted to administer this medication for higher pain scores based on patient preference? Yes 1 ml fentaNYL 0.05 mg/ml injection (1 source) Opioid Agonist Start: 12-26-2023 End: 12-26-2023 intravenous, As needed, Starting on Sun12/26/23 at 1704, Intraprocedure 250 ml heparin sodium, porcine 100 unt/ml injection (2 sources) Unfractionated Heparin, Anti-coagulant Start: 12-22-2023 End: 12-24-2023 0-4,000 Units/hr (0-40 mL/hr), intravenous, Continuous, Starting on 12/22/23 at 1230, Until 12/24/23 at 0845, Low Intensity Heparin Protocol (70-124kg) Initial Dose: 12 units/kg/hr --> Use heparin calculator for units/hr rate Maximum Initial Dose: 1000 units/hr Recheck Heparin Assay, UFH level 4 hours after any rate change, or per protocol. Titration Table: Heparin Assay, UFH 1.2: No Bolus. HOLD heparin infusion for 1 hour, then recheck heparin assay. If repeat is > 0.6, continue to HOLD INFUSION. Confirm last draw was performed correctly (pump was paused for a minimum of 2 minutes, sample NOT drawn off line/lumen where medication was infusing) and contact provider for further orders. If repeat is Start: 10-16-2023 End: 10-18-2023 0-4,000 Units/hr (0-40 mL/hr ), intravenous, Continuous, Starting on 10/16/23 at 0145, Until Symone 10/18/23 at 0933, Low Intensity Heparin Protocol (70-124kg) Initial Dose: 12 units/kg/hr --> Use heparin calculator for units/hr rate Maximum Initial Dose: 1000 units/hr Recheck Heparin Assay, UFH level 4 hours after any rate change, or per protocol. Titration Table: Heparin Assay, UFH 1.2: No Bolus. HOLD heparin infusion for 1 hour, then recheck heparin assay. If repeat is > 0.6, continue to HOLD INFUSION. Confirm last draw was performed correctly (pump was paused for a minimum of 2 minutes, sample NOT drawn off line/lumen where medication was infusing) and contact provider for further orders. If repeat is heparin bolus from bag 2,000-4,000 Units (1 source) Start: 12-22-2023 End: 12-24-2023 take 0892-0300 [IU] intravenously every four hours as needed 2,000-4,000 Units, intravenous, Every 4 hours PRN, repeat bolus per current Heparin Assay, UFH result, Starting on 12/22/23 at 1200, Heparin Assay, UFH 1.2 Bolus Dose (units): 0, Heparin Assay, UFH >2: Enter a 2 into the Heparin Assay, UFH field heparin bolus from bag 4,000 Units (1 source) Start: 10-16-2023 End: 10-16-2023 4,000 Units, intravenous, Once, On Sun10/16/23 at 0145, For 1 dose, Initial bolus. 5 ml iron sucrose 20 mg/ml injection (1 source) Parenteral Iron Replacement Start: 12-23-2023 End: 12-27-2023 200 mg, intravenous, Administer over 5 Minutes, Daily, First dose on Sun12/23/23 at 1130, For 5 doses magnesium oxide 400 mg oral tablet (1 source) Start: 10-21-2023 End: 10-21-2023 take 400 mg by mouth once 400 mg, oral, Once, On Sun10/21/23 at 0730, For 1 dose metoprolol tartrate 50 mg oral tablet (2 sources) beta-Adrenergic Farhad Start: 10-16-2023 End: 10-17-2023 take 25 mg by mouth twice daily 25 mg, oral, 2 times daily, First dose on Sun10/16/23 at 0900 Start: 10-15-2023 take 25 mg by mouth twice cora y Metoprolol Tartrate Active 25 MG PO Twice daily 0 October 15, 2023 12:00am 5 ml midazolam 1 mg/ml injection (1 source) Benzodiazepine Start: 12-26-2023 End: 12-26-2023 As needed, Starting on Sun12/26/23 at 1704, Intraprocedure mupirocin 0.02 mg/mg topical ointment (1 source) RNA Synthetase Inhibitor Antibacterial Start: 10-16-2023 End: 10-20-2023 apply 1 dose topically twice daily Topical, 2 times daily, First dose on Sun10/16/23 at 1045, For 5 days, Apply to nares perflutren lipid microspheres (Definity) injection 0.5-10 mL of dilution (1 source) Start: 12-24-2023 End: 12-24-2023 0.5-10 mL of dilution, intravenous, Once in imaging, Starting on Sun12/24/23 at 1032, For 1 dose, CV Medications, Contrast - for use by imaging provider only. Prior to administration, Definity product must be activated. First, bring vial to room temperature. Then, shake vial for 45 seconds. Do not use if the 45 second activation cycle has not been completed. Following activation, the product will appear as a milky white suspension and may be used immediately. If not used within 5 minutes of activation, re-suspend by inverting and shaking the vial for 10 seconds. Discard unused product. Administration: Dilute 1.3 mL of activated DEFINITY with 8.7 mL of normal saline in a 10 mL syringe. Inject 0.5 mL of diluted DEFINITY when notified the images/film are unclear to enhance view of Left Ventricular borders. Repeat 0.5 mL of DEFINITY until clear images are obtained, not to exceed 10 mLs. Once images are obtained or limit of medication is reached, flush line with 10 mL of Normal Saline. polyethylene glycol 3350 [id number] mg / potassium chloride 1480 mg / sodium bicarbonate 5720 mg / sodium chloride 34603 mg powder for oral solution (1 source) Osmotic Laxative Start: 12-25-2023 End: 12-25-2023 4,000 mL, oral, Once, On Sun12/25/23 at 1700, For 1 dose, Reconstitute, drink one glass (8 oz) every 15 minutes until 2 L consumed beginning at 5-6 PM on the day prior to procedure. Drink one glass (8 oz) every 15 minutes until the final 2 L consumed starting at 2 AM the day of the procedure. microencapsulated potassium chloride 20 meq extended release oral tablet (1 source) Start: 10-21-2023 End: 10-21-2023 20 mEq, oral, Once, On Sun10/21/23 at 0730, For 1 dose, Best given with food and plenty of water to minimize gastric irritation. Do not crush or chew. 1000 ml sodium chloride 9 mg/ml injection (2 sources) Start: 10-23-2023 End: 10-23-2023 500 mL, intravenous, at 125 mL/hr, Administer over 4 Hours, Once, On Sun10/23/23 at 1730, For 1 dose Problems Active Problems Problem Classification Problem Date Documented Date Episodic/Chronic Acute myocardial infarction (11 sources) Myocardial infarction; Translations: [Non-ST elevation (NSTEMI) myocardial infarction] Onset: 10-16-2023 Resolved: 11-02-2023 12-23-2023 Chronic Adjustment disorders (9 sources) Grief finding; Translations: [Adjustment disorder with depressed mood] Onset: 10-17-2023 12-27-2023 Chronic Calculus of urinary tract (4 sources) Kidney stone 11-22-2023 Episodic Chronic kidney disease (10 sources) Chronic kidney disease stage 3A ; Translations: [Stage 3a chronic kidney disease (Multi)] Onset: 10-15-2023 12-27-2023 Chronic Chronic kidney disease (4 sources) Chronic kidney disease; Translations: [Chronic kidney disease, stage 3a (Multi)] Onset: 10-15-2023 Congestive heart failure; nonhypertensive (18 sources) Acute on chronic systolic heart failure; Translations: [Acute on chronic systolic (congestive) heart failure] Onset: 10-14-2023 10-14-2023 Chronic Coronary atherosclerosis and other heart disease (20 sources) Acute coronary syndrome; Translations: [Acute ischemic heart disease, unspecified] Onset: 10-14-2023 10-14-2023 Chronic Deficiency and other anemia (1 source) Iron deficiency anemia due to blood loss; Translations: [Iron deficiency anemia secondary to blood loss (chronic)] 12-27-2023 Chronic Deficiency and other anemia (2 sources) Iron deficiency anemia secondary to blood loss (chronic); Translations: [Iron deficiency anemia secondary to blood loss (chronic)] Onset: 12-22-2023 Chronic Diabetes mellitus with complications (4 sources) Peripheral angiopathy due to diabetes mellitus; Translations: [Type 2 diabetes mellitus with diabetic peripheral angiopathy without gangrene] 11-29-2023 Chronic Diabetes mellitus without complication (14 sources) Type 2 diabetes mellitus; Translations: [Type 2 diabetes mellitus without complication] Onset: 10-15-2023 11-22-2023 Chronic Disorders of lipid metabolism (8 sources) Hypercholesterolemia; Translations: [Mixed hyperlipidemia] Onset: 11-02-2023 Resolved: 12-27-2023 11-22-2023 Chronic Esophageal disorders (3 sources) Gastroesophageal reflux disease without esophagitis; Translations: [Gastro-esophageal reflux disease without esophagitis] Onset: 11-13-2023 12-22-2023 Chronic Essential hypertension (16 sources) Essential (primary) hypertension; Translations: [Hypertensive disorder] Onset: 10-15-2023 Chronic Genitourinary symptoms and ill-defined conditions (3 sources) Retention of urine; Translations: [Retention of urine, unspecified] Onset: 11-22-2023 Episodic Hyperplasia of prostate (2 sources) Benign prostatic hyperplasia 12-21-2023 Chronic Mood disorders (4 sources) Depressive disorder 11-22-2023 Chronic Mycoses (2 sources) Onychomycosis due to dermatophyte ; Translations: [Tinea unguium] 11-29-2023 Episodic Occlusion or stenosis of precerebral arteries (11 sources) Occlusion and stenosis of right carotid artery; Translations: [Right carotid artery occlusion] Onset: 11-02-2023 Chronic Osteoarthritis (15 sources) Arthritis; Translations: [Osteoarthritis] Onset: 10-15-2023 11-22-2023 Chronic Other aftercare (3 sources) Long-term current use of drug therapy; Translations: [penitentiary (current) use of antithrombotics/antipl atelets] Onset: 12-25-2023 12-25-2023 Episodic Other aftercare (2 sources) vermin exterminator (current) use of insulin; Translations: [vermin exterminator (current) use of insulin (Multi)] Onset: 12-22-2023 Episodic Other aftercare (2 sources) vermin exterminator (current) use of antithrombotics/antipl atelets; Translations: [vermin exterminator (current) use of antithrombotics/antipl atelets] Onset: 12-22-2023 Episodic Other circulatory disease (2 sources) Other disorders of arteries, arterioles and capillaries in diseases classified elsewhere; Translations: [Other disorders of arteries, arterioles and capillaries in diseases classified elsewhere ([facility])] Onset: 10-15-2023 Chronic Other circulatory disease (1 source) Vascular disorder; Translations: [Other disorders of arteries, arterioles and capillaries in diseases classified elsewhere] 10-16-2023 Chronic Other lower respiratory disease (3 sources) Chronic cough; Translations: [Chronic cough] Onset: 09-07-2023 12-22-2023 Episodic Other lower respiratory disease (2 sources) Shortness of breath; Translations: [Shortness of breath] Onset: 10-15-2023 Episodic Other nervous system disorders (2 sources) Other chronic pain; Translations: [Other chronic pain] Onset: 10-15-2023 Chronic Other nervous system disorders (1 source) Chronic pain; Translations: [Other chronic pain] 10-24-2023 Chronic Other nutritional; endocrine; and metabolic disorders (2 sources) Body mass index (BMI) 36.0-36.9, adult; Translations: [Body mass index (BMI) 36.0-36.9, adult] Onset: 11-02-2023 Chronic Other nutritional; endocrine; and metabolic disorders (5 sources) Body mass index 30+ - obesity; Translations: [Body mass index (BMI) 36.0-36.9, adult] Onset: 11-02-2023 Resolved: 12-27-2023 12-27-2023 Chronic Other skin disorders (2 sources) Dystrophia unguium; Translations: [Nail dystrophy] 11-29-2023 Episodic Peripheral and visceral atherosclerosis (3 sources) Peripheral vascular disease, unspecified; Translations: [Peripheral vascular disease] Onset: 10-15-2023 Chronic Residual codes; unclassified (2 sources) Edema, unspecified; Translations: [Edema, unspecified] Onset: 11-02-2023 Episodic Residual codes; unclassified (4 sources) History of headache 11-22-2023 Episodic Residual codes; unclassified (3 sources) Insomnia; Translations: [Insomnia, unspecified] Onset: 11-13-2023 12-22-2023 Episodic Residual codes; unclassified (2 sources) Edema; Translations: [Edema, unspecified] 11-02-2023 Episodic Respiratory failure; insufficiency; arrest (adult) (6 sources) Acute respiratory failure; Translations: [Acute respiratory failure with hypoxia] Onset: 10-14-2023 Resolved: 12-27-2023 10-14-2023 Episodic Spondylosis; intervertebral disc disorders; other back problems (1 source) Chronic low back pain; Translations: [Chronic low back pain without sciatica, unspecified back pain laterality] 11-13-2023 Episodic Unclassified (2 sources) Patient encounter status 12-21-2023 Past or Other Problems Problem Classification Problem Date Documented Da te Episodic/Chronic Crushing injury or internal injury (5 sources) Injury of heart; Translations: [Myocardial injury] Onset: 10-14-2023 Resolved: 10-16-2023 10-16-2023 Episodic Other lower respiratory disease (1 source) Dyspnea; Translations: [Shortness of breath] 10-16-2023 Episodic Other nutritional; endocrine; and metabolic disorders (4 sources) Morbid obesity; Translations: [Morbid (severe) obesity due to excess calories] Onset: 10-15-2023 Resolved: 11-02-2023 11-02-2023 Chronic Unclassified (3 sources) Onset: 11-02-2023 Resolved: 11-13-2023 11-13-2023 Results Test Name Value Interpretation Reference Range Facility COLONOSCOPYon 12-27-2023 Colonoscopy Table formatting fro m the original result was not included. Impression Diverticulosis in the descending colon One polyp measuring 20 mm or greater in the mid transverse colon which was not removed as the patient is currently on anti-platelet therapy. The polyp was appeared adenomatous. Findings Diverticula in the descending colon One polyp measuring 20 mm or greater in the mid transverse colon. Polyp was not removed as patient is on anticoagulation. 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 Schedule repeat colonoscopy, due: 03/25/2024 Inadequate bowel preparation -Patient should have repeat procedure as soon as feasible. He will need to be off antiplatelet therapy. -Resume diet per primary team. Indication Antiplatelet or antithrombotic long-term use Staff Staff Role Jaja Seaman MD Proceduralist Bela L Khadar, MD Fellow Medications Totals unavailable because the procedure time range is not set Preprocedure A history and physical has been performed, and patient medication allergies have been reviewed. The patient's tolerance of previous anesthesia has been reviewed. The risks and benefits of the procedure and the sedation options and risks were discussed with the patient. All questions were answered and informed consent obtained. Details of the Procedure The patient underwent moderate sedation, which was administered by the procedural nurse. The patient's blood pressure, ECG, ETCO2, heart rate, level of consciousness, oxygen and respirations were monitored throughout the procedure. A digital rectal exam was performed. The scope was introduced through the anus and advanced to the terminal ileum. The quality of bowel preparation was evaluated using the [place] Bowel Preparation Scale with scores of: right colon = 2, transverse colon = 2, left colon = 2. The total BBPS score was 6. Bowel prep was adequate. The patient experienced no blood loss. The procedure was not difficult. The patient tolerated the procedure well. There were no apparent adverse events. Events Procedure Events Event Event Time Specimens No specimens collected Procedure Location [place] [id number] Referring Provider Bela Rubalcava MD Procedure Provider Jaja Seaman MD Normal [facility] Glucose Test strip manual (B ld) [Mass/Vol]on 12-27-2023 Glucose [Mass/Vol] 182 mg/dL High 74 - 99 mg/dL [facility] Interpretation and review of laboratory results Abnormal [facility] Glucose [Mass/Vol] 182 mg/dL High 74-99 [facility] Comment on above: Performed By: #### 5 902-2 #### ERICA Tam ([id number]) [facility] ([facility]) [address] [place], [place] [id number] Glucose [Mass/Vol] 150 mg/dL High 74 - 99 mg/dL [facility] Interpretation and review of laboratory results Abnormal [facility] Glucose [Mass/Vol] 150 mg/dL High 74-99 [facility] Comment on above: Performed By: #### 5 902-2 #### ERICA Tam ([id number]) [facility] ([facility]) [id number] [place] [address] CBC panel Auto (Bld)on 12-25 Erythrocyte distribution width (RBC) [Ratio] 16.1 % High 11.5 - 14.5 % [facility] Hematocrit (Bld) [Volume fraction] 27.9 % Low 41.0 - 52.0 % [facility] Hemoglobin (Bld) [Mass/Vol] 8.2 g/dL Low 13.5 - 17.5 g/dL [facility] Interpretation and review of laboratory results Abnormal [facility] MCH (RBC) [Entitic mass] 28.6 pg 26.0 - 34.0 pg [facility] MCHC (RBC) [Mass/Vol] 29.4 g/dL Low 32.0 - 36.0 g/dL [facility] MCV (RBC) [Entitic vol] 97 fL 80 - 100 fL [facility] Nucleated RBC/100 WBC (Bld) [Ratio] 0 % [facility] Platelets (Bld) [#/Vol] 300 10*3/uL [facility] RBC (Bld) [#/Vol] 2.87 10*6/uL Low [facility] WBC (Bld) [#/Vol] 9.1 10*3/uL [facility] Erythrocyte distribution width (RBC) [Ratio] 16.1 % High 11.5-14.5 [facility] Comment on above: Performed By: #### 5 902-2 #### ERICA Tam ([id number]) [facility] ([facility]) [id number] [place] [address]87[address] Hematocrit (Bld) [Volume fraction] 27.9 % Low 41.0-52.0 [facility] Comment on above: Performed By: #### 5 902-2 #### ERICA Tam ([id number]) [facility] ([facility]) [id number] [place] [address]41 Hemoglobin (Bld) [Mass/Vol] 8.2 g/dL Low 13.5-17.5 [facility] Comment on above: Performed By: #### 5 902-2 #### ERICA Tam ([id number]) [facility] ([facility]) [id number] [place] [address] 52492 MCH (RBC) [Entitic mass] 28.6 pg Normal 26.0-34.0 [facility] Comment on above: Performed By: #### 5 902-2 #### ERICA Tam ([id number]) [facility] ([facility]) [address] [place] [address]6587 MCHC (RBC) [Mass/Vol] 29.4 g/dL Low 32.0-36.0 [facility] Comment on above: Performed By: #### 5 902-2 #### ERICA Tam ([id number]) [facility] ([facility]) [address] [place] [address]3419 MCV (RBC) [Entitic vol] 97 fL Normal 80-100 [facility] Comment on above: Performed By: #### 5 902-2 #### ERICA Tam ([id number]) [facility] ([facility]) [id number] [place] [address] 93873 Nucleated RBC/100 WBC (Bld) [Ratio] 0.0 /100 WBCs Normal 0.0-0.0 [facility] Comment on above: Performed By: #### 5 902-2 #### ERICA Tam ([id number]) [facility] ([facility]) [id number] [place] [address] 49471 Platelets (Bld) [#/Vol] 300 x10*3/uL Normal 150-450 [facility] Comment on above: Performed By: #### 5 902-2 #### ERICA Tam ([id number]) [facility] ([facility]) [id number] [place] [address] 24147 RBC (Bld) [#/Vol] 2.87 x10*6/uL Low 4.50-5.90 [facility] Comment on above: Performed By: #### 5 902-2 #### ERICA Tam ([id number]) [facility] ([facility]) [address] [place] [address] WBC (Bld) [#/Vol] 9.1 x10*3/uL Normal 4.4-11.3 [facility] Comment on above: Performed By: #### 5 902-2 #### ERICA Tam ([id number]) [facility] ([facility]) [address] [place] [address] ECG 12-LEADon 12-26-2023 ECG 12-LEAD Ventricular Rate 61 Atrial Rate 61 P-R Interval 214 QRS Duration 98 Q-T Interval 444 QTC Calculation(Bazett) 446 P [place] 24 R [place] 17 T [place] 92 QRS Count 10 Q Onset 219 P Onset 112 P Offset 171 T Offset 441 QTC Fredericia 446 Diagnosis Sinus rhythm with 1st degree AV block Nonspecific T wave abnormality Abnormal ECG When compared with ECG of 22-DEC-2023 11:46, Premature ventricular complexes are no longer Present Nonspecific T wave abnormality, improved in Inferior leads Confirmed by Santiago Pope ([id number]) on 12/28/2023 10:37:08 AM Normal [facility] EGDon 12-26-2023 Esophagogastroduodenosc opy Table formatting from the original result was not included. 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 Findings Abnormal mucosa in the lower third of the esophagus. 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 Follow up with primary rn concurrent review Repeat egd with further banding if recurrent anemia Indication Antiplatelet or antithrombotic long-term use Staff Staff Role Jaja Seaman MD Proceduralist Bela Rubalcava MD Proceduralist Medications fentaNYL PF (Sublimaze) injection 100 mcg midazolam (Versed) injection 4 mg (Totals for administrations occurring from 1700 to 1719 on 12/26/23) Preprocedure A history and physical has been performed, and patient medication allergies have been reviewed. The patient's tolerance of previous anesthesia has been reviewed. The risks and benefits of the procedure and the sedation options and risks were discussed with the patient. All questions were answered and informed consent obtained. Details of the Procedure The patient underwent moderate sedation, which was administered by the procedural nurse. The patient's blood pressure, ECG, ETCO2, heart rate, level of consciousness, oxygen and respirations were monitored throughout the procedure. The scope was introduced through the mouth and advanced to the second part of the duodenum. Retroflexion was performed in the cardia. The patient experienced no blood loss. The procedure was not difficult. The patient tolerated the procedure well. There were no apparent adverse events. Events Procedure Events Event Event Time Specimens No specimens collected Procedure Location [facility] [address] [facility] [address] Referring Provider Bela Rubalcava MD Procedure Provider Jaja Seaman MD [facility] EGD Study observation Narrat gabby 12-26-2023 Table formatting fro m the original result was not included. 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 Findings Abnormal mucosa in the lower third of the esophagus. 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 Follow up with primary rn concurrent review Repeat egd with further banding if recurrent anemia Indication Antiplatelet or antithrombotic long-term use Staff Staff Role Jaja Seaman MD Proceduralist Bela Rubalcava MD Proceduralist Medications fentaNYL PF (Sublimaze) injection 100 mcg midazolam (Versed) injection 4 mg (Totals for administrations occurring from 1700 to 1719 on 12/26/23) Preprocedure A history and physical has been performed, and patient medication allergies have been reviewed. The patient's tolerance of previous anesthesia has been reviewed. The risks and benefits of the procedure and the sedation options and risks were discussed with the patient. All questions were answered and informed consent obtained. Details of the Procedure The patient underwent moderate sedation, which was administered by the procedural nurse. The patient's blood pressure, ECG, ETCO2, heart rate, level of consciousness, oxygen and respirations were monitored throughout the procedure. The scope was introduced through the mouth and advanced to the second part of the duodenum. Retroflexion was performed in the cardia. The patient experienced no blood loss. The procedure was not difficult. The patient tolerated the procedure well. There were no apparent adverse events. Events Procedure Events Event Event Time Specimens No specimens collected Procedure Location [address] [address] Referring Provider Bela Rubalcava MD Procedure Provider Jaja Seaman MD [facility] Work Phone: Radiology Study observation (narrative) [facility] Work Phone: EGD Study observation Narrat iveOrdered By: Jaja Seaman on 12-26-2023 [facility] Work Phone: Glucose Test strip manual (B ld) [Mass/Vol]on 12-26-2023 Glucose [Mass/Vol] 172 mg/dL High 74 - 99 mg/dL [facility] Interpretation and review of laboratory results Abnormal [facility] Glucose [Mass/Vol] 172 mg/dL High 74-99 [facility] Comment on above: Performed By: #### 5 902-2 #### ERICA Tam ([id number]) [facility] ([facility]) [address] [place] [address] Glucose [Mass/Vol] 108 mg/dL High 74 - 99 mg/dL [facility] Interpretation and review of laboratory results Abnormal [facility] Glucose [Mass/Vol] 108 mg/dL High 74-99 [facility] Comment on above: Performed By: #### 5 902-2 #### ERICA Tam ([id number]) [facility] ([facility]) [address] [place] [address] Glucose [Mass/Vol] 106 mg/dL High 74 - 99 mg/dL [facility] Interpretation and review of laboratory results Abnormal [facility] Glucose [Mass/Vol] 106 mg/dL High 74-99 [facility] Comment on above: Performed By: #### 5 902-2 #### ERICA Tam ([id number]) [facility] ([facility]) [address] [place] [address] Glucose [Mass/Vol] 117 mg/dL High 74 - 99 mg/dL [facility] Interpretation and review of laboratory results Abnormal [facility] Glucose [Mass/Vol] 117 mg/dL High 74-99 [facility] Comment on above: Performed By: #### 5 902-2 #### ERICA Tam ([id number]) [facility] ([facility]) [address] [place] [address] Glucose [Mass/Vol] 125 mg/dL High 74 - 99 mg/dL [facility] Interpretation and review of laboratory results Abnormal [facility] Glucose [Mass/Vol] 125 mg/dL High 74-99 [facility] Comment on above: Performed By: #### 5 902-2 #### ERICA Tam ([id number]) [facility] ([facility]) [address] [place] [address] 77675 Magnesiumon 12-26-2023 Magnesium [Mass/Vol] 1.89 mg/dL 1.60 - 2.40 mg/dL [facility] Magnesium [Mass/Vol] 1.89 mg/dL Normal 1.60-2.40 [facility] Comment on above: Performed By: #### 5 902-2 #### ERICA Tam ([id number]) [facility] ([facility]) [address] [place] [address] 08621 Magnesium [Mass/Vol]on 12-25 Interpretation and review of laboratory results Normal [facility] No Panel Informationon 12-25 [facility] Renal function 2000 panelon 12-26-2023 Albumin BCP dye [Mass/Vol] 2.9 g/dL Low 3.4 - 5.0 g/dL [facility] Anion gap [Moles/Vol] 14 mmol/L 10 - 2 0 mmol/L [facility] Calcium [Mass/Vol] 8.4 mg/dL Low 8.6 - 10. 6 mg/dL [facility] Chloride [Moles/Vol] 103 mmol/L 98 - 10 7 mmol/L [facility] CO2 [Moles/Vol] 29 mmol/L 21 - 32 mmol/L [facility] Creatinine [Mass/Vol] 1.69 mg/dL High 0.50 - 1.30 mg/dL [facility] GFR/1.73 sq M.predicted among non-blacks MDRD (S/P/Bld) [Vol rate/Area] 43 mL/min/{1.73_m2} Low - PINF [facility] Comment on above: Calculations of mer[place] mated GFR are performed using the 2020 CKD-EPI Study Refit equation without the race variable for the IDMS-Traceable creatinine methods. https://jasn.asnjournals.org/content//ASN.2020 075690 Glucose [Mass/Vol] 180 mg/dL High 74 - 99 mg/dL [facility] Interpretation and review of laboratory results Abnormal [facility] Phosphate [Mass/Vol] 3.2 mg/dL 2.5 - 4 .9 mg/dL [facility] Comment on above: The performance cecilia acteristics of phosphorus testing in heparinized plasma have been validated by the individual laboratory site where testing is performed. Testing on heparinized plasma is not approved by the FDA; however, such approval is not necessary. Potassium [Moles/Vol] 3.8 mmol/L 3.5 - 5.3 mmol/L [facility] Sodium [Moles/Vol] 142 mmol/L 136 - 145 mmol/L [facility] Urea nitrogen [Mass/Vol] 37 mg/dL High 6 - 23 mg/dL [facility] Albumin BCP dye [Mass/Vol] 2.9 g/dL Low 3.4-5.0 [facility] Comment on above: Performed By: #### 5 902-2 #### ERICA MCDONALD L ([id number]) [facility] ([facility]) [address] [place] [address] Anion gap [Moles/Vol] 14 mmol/L Normal 10-20 [facility] Comment on above: Performed By: #### 5 902-2 #### ERICA RESTREPOMOJOELLEER L ([id number]) [facility] ([facility]) [id number] [place] [address] 67051 Calcium [Mass/Vol] 8.4 mg/dL Low 8.6-10.6 [facility] Comment on above: Performed By: #### 5 902-2 #### ERICA HIGGINSER L ([id number]) [facility] ([facility]) [id number] [place] [address] 88642 Chloride [Moles/Vol] 103 mmol/L Normal 98-107 [facility] Comment on above: Performed By: #### 5 902-2 #### ERICA RESTREPOMOTZER L ([id number]) [facility] ([facility]) [address] [place] [address] CO2 [Moles/Vol] 29 mmol/L Normal 21-32 [facility] Comment on above: Performed By: #### 5 902-2 #### ERICA RESTREPOMOJOELLEER L ([id number]) [facility] ([facility]) [id number] [place] [address] 72285 Creatinine [Mass/Vol] 1.69 mg/dL High 0.50-1.30 [facility] Comment on above: Performed By: #### 5 902-2 #### ERICA RESTREPOMOTZER L ([id number]) [facility] ([facility]) [address] [place] [address] 98409 Glomerular filtration rate/1.73 sq M.predicted 43 mL/min/1.73m*2 Low >60 [facility] Comment on above: Result Comment: Calc ulations of estimated GFR are performed using the 2020 CKD-EPI Study Refit equation without the race variable for the IDMS-Traceable creatinine methods. https://jasn.asnjournals.org/content/ASN.2020 880085 Performed By: #### 5 902-2 #### ERICA Tam ([id number]) [facility] ([facility]) [address] [place] [address] Glucose [Mass/Vol] 180 mg/dL High 74-99 [facility] Comment on above: Performed By: #### 5 902-2 #### ERICA Tam ([id number]) [facility] ([facility]) [address] [place] [address] 56625 Phosphate [Mass/Vol] 3.2 mg/dL Normal 2.5-4.9 [facility] Comment on above: Result Comment: The performance characteristics of phosphorus testing in heparinized plasma have been validated by the individual laboratory site where testing is performed. Testing on heparinized plasma is not approved by the FDA; however, such approval is not necessary. Performed By: #### 5 902-2 #### ERICA Tam ([id number]) [facility] ([facility]) [address] [place] [address] Potassium [Moles/Vol] 3.8 mmol/L Normal 3.5-5.3 [facility] Comment on above: Performed By: #### 5 902-2 #### ERICA Tam ([id number]) [facility] ([facility]) [address] [place] [address] Sodium [Moles/Vol] 142 mmol/L Normal 136-145 [facility] Comment on above: Performed By: #### 5 902-2 #### ERICA MCDONALD L ([id number]) [facility] ([facility]) [address] [place] [address] 98251 Urea nitrogen [Mass/Vol] 37 mg/dL High 6-23 [facility] Comment on above: Performed By: #### 5 902-2 #### ERICA Tam ([id number]) [facility] ([facility]) [id number] [place] [address] 63508 CBC panel Auto (Bld)on 12-24 Erythrocyte distribution width (RBC) [Ratio] 16.3 % High 11.5 - 14.5 % [facility] Hematocrit (Bld) [Volume fraction] 29.1 % Low 41.0 - 52.0 % [facility] Hemoglobin (Bld) [Mass/Vol] 8.8 g/dL Low 13.5 - 17.5 g/dL [facility] Interpretation and review of laboratory results Abnormal [facility] MCH (RBC) [Entitic mass] 28.4 pg 26.0 - 34.0 pg [facility] MCHC (RBC) [Mass/Vol] 30.2 g/dL Low 32.0 - 36.0 g/dL [facility] MCV (RBC) [Entitic vol] 94 fL 80 - 100 fL [facility] Nucleated RBC/100 WBC (Bld) [Ratio] 0 % [facility] Platelets (Bld) [#/Vol] 416 10*3/uL [facility] RBC (Bld) [#/Vol] 3.1 10*6/uL Low [facility] WBC (Bld) [#/Vol] 9.3 10*3/uL [facility] Erythrocyte distribution width (RBC) [Ratio] 16.3 % High 11.5-14.5 [facility] Comment on above: Performed By: #### 5 902-2 #### ERICA Tam ([id number]) [facility] ([facility]) [address] [place] [address] 90800 Hematocrit (Bld) [Volume fraction] 29.1 % Low 41.0-52.0 [facility] Comment on above: Performed By: #### 5 902-2 #### ERICA Tam ([id number]) [facility] ([facility]) [address] [place] [address] 81560 Hemoglobin (Bld) [Mass/Vol] 8.8 g/dL Low 13.5-17.5 [facility] Comment on above: Performed By: #### 5 902-2 #### ERICA Tam ([id number]) [facility] ([facility]) [address] [place] [address] MCH (RBC) [Entitic mass] 28.4 pg Normal 26.0-34.0 [facility] Comment on above: Performed By: #### 5 902-2 #### ERICA Tam ([id number]) [facility] ([facility]) [address] [place] [address] MCHC (RBC) [Mass/Vol] 30.2 g/dL Low 32.0-36.0 [facility] Comment on above: Performed By: #### 5 902-2 #### ERICA Tam ([id number]) [facility] ([facility]) [address] [place] [address] 87587 MCV (RBC) [Entitic vol] 94 fL Normal 80-100 [facility] Comment on above: Performed By: #### 5 902-2 #### ERICA Tam ([id number]) [facility] ([facility]) [address] [place] [address] Nucleated RBC/100 WBC (Bld) [Ratio] 0.0 /100 WBCs Normal 0.0-0.0 [facility] Comment on above: Performed By: #### 5 902-2 #### ERICA Tam ([id number]) [facility] ([facility]) [address] [place] [address] Platelets (Bld) [#/Vol] 416 x10*3/uL Normal 150-450 [facility] Comment on above: Performed By: #### 5 902-2 #### ERICA Tam ([id number]) [facility] ([facility]) [address] [place] [address] 89901 RBC (Bld) [#/Vol] 3.10 x10*6/uL Low 4.50-5.90 [facility] Comment on above: Performed By: #### 5 902-2 #### ERICA Tam ([id number]) [facility] ([facility]) [address] [place] [address] WBC (Bld) [#/Vol] 9.3 x10*3/uL Normal 4.4-11.3 [facility] Comment on above: Performed By: #### 5 902-2 #### ERICA Tam ([id number]) [facility] ([facility]) [address] [place] [address] ECG 12 leadOrdered By: Santiago Pope on 12-25-2023 Atrial Rate 77 BPM [facility] Work Phone: [phone] P [place] 2 degrees [facility] Work Phone: [phone] P Offset 170 ms [facility] Work Phone: [phone] P Onset 128 ms [facility] Work Phone: [phone] [place] Interval 186 ms [facility] Work Phone: [phone] Q Onset 221 ms [facility] Work Phone: [phone] QRS Count 13 beats [facility] Work Phone: [phone] QRS Duration 92 ms [facility] Work Phone: [phone] QT Interval 378 ms [facility] Work Phone: [phone] QTC Calculation(Bazett) 427 ms U [facility] Work Phone: [phone] QTC Fredericia 410 ms [facility] Work Phone: [phone] R [place] 27 degrees [facility] Work Phone: [phone] T [place] 124 degrees [facility] Work Phone: [phone] T Offset 410 ms [facility] Work Phone: [phone] Ventricular Rate 77 BPM [facility] Work Phone: [phone] [facility] Work Phone: [phone] ECG 12 leadon 12-25-2023 Sinus rhythm with frequent Premature ventricular complexes Nonspecific T wave abnormality Abnormal ECG When compared with ECG of 22-DEC-2023 11:44, No significant change was found Confirmed by Santiago Pope ([id number]) on 12/25/2023 11:27:31 AM Santiago Camilo MD - 12/25/2023 Sinus rhythm with frequent Premature ventricular complexes Nonspecific T wave abnormality Abnormal ECG When compared with ECG of 22-DEC-2023 11:44, No significant change was found Confirmed by Santiago Pope ([id number]) on 12/25/2023 11:27:31 AM [facility] Work Phone: Glucose Test strip manual (B ld) [Mass/Vol]on 12-25-2023 Glucose [Mass/Vol] 118 mg/dL High 74 - 99 mg/dL [facility] Interpretation and review of laboratory results Abnormal [facility] Glucose [Mass/Vol] 118 mg/dL High 74-99 [facility] Comment on above: Performed By: #### 5 902-2 #### ERICA Tam ([id number]) [facility] ([facility]) [address] [place] [address] 28232 Glucose [Mass/Vol] 192 mg/dL High 74 - 99 mg/dL [facility] Interpretation and review of laboratory results Abnormal [facility] Glucose [Mass/Vol] 192 mg/dL High 74-99 [facility] Comment on above: Performed By: #### 5 902-2 #### ERICA Tam ([id number]) [facility] ([facility]) [address] [place] [address] 66705 Glucose [Mass/Vol] 247 mg/dL High 74 - 99 mg/dL [facility] Interpretation and review of laboratory results Abnormal [facility] Glucose [Mass/Vol] 247 mg/dL High 74-99 [facility] Comment on above: Performed By: #### 5 902-2 #### ERICA Tam ([id number]) [facility] ([facility]) [address] [place] [address] 37762 Glucose [Mass/Vol] 120 mg/dL High 74 - 99 mg/dL [facility] Interpretation and review of laboratory results Abnormal [facility] Glucose [Mass/Vol] 120 mg/dL High 74-99 [facility] Comment on above: Performed By: #### 5 902-2 #### ERICA Tam ([id number]) [facility] ([facility]) [address] [place] [address] 27462 Glucose [Mass/Vol] 139 mg/dL High 74 - 99 mg/dL [facility] Interpretation and review of laboratory results Abnormal [facility] Glucose [Mass/Vol] 139 mg/dL High 74-99 [facility] Comment on above: Performed By: #### 5 902-2 #### ERIAC Tam ([id number]) [facility] ([facility]) [address] [place] [address] 53599 Magnesiumon 12-25-2023 Magnesium [Mass/Vol] 1.98 mg/dL 1.60 - 2.40 mg/dL [facility] Magnesium [Mass/Vol] 1.98 mg/dL Normal 1.60-2.40 [facility] Comment on above: Performed By: #### 5 902-2 #### ERICA Tam ([id number]) [facility] ([facility]) [address] [place] [address] 61993 Magnesium [Mass/Vol]on 12-24 Interpretation and review of laboratory results Normal [facility] No Panel Informationon 12-24 [facility] Renal function 2000 panelon 12-25-2023 Albumin BCP dye [Mass/Vol] 3.3 g/dL Low 3.4 - 5.0 g/dL [facility] Anion gap [Moles/Vol] 13 mmol/L 10 - 2 0 mmol/L [facility] Calcium [Mass/Vol] 9 mg/dL 8.6 - 10. 6 mg/dL [facility] Chloride [Moles/Vol] 101 mmol/L 98 - 10 7 mmol/L [facility] CO2 [Moles/Vol] 31 mmol/L 21 - 32 mmol/L [facility] Creatinine [Mass/Vol] 1.68 mg/dL High 0.50 - 1.30 mg/dL [facility] GFR/1.73 sq M.predicted among non-blacks MDRD (S/P/Bld) [Vol rate/Area] 44 mL/min/{1.73_m2} Low - PINF [facility] Comment on above: Calculations of [place] mated GFR are performed using the 2020 CKD-EPI Study Refit equation without the race variable for the IDMS-Traceable creatinine methods. https://jasn.asnjournals.org/content/earlyASN.2020 582092 Glucose [Mass/Vol] 174 mg/dL High 74 - 99 mg/dL [facility] Interpretation and review of laboratory results Abnormal [facility] Phosphate [Mass/Vol] 2.8 mg/dL 2.5 - 4 .9 mg/dL [facility] Comment on above: The performance cecilia acteristics of phosphorus testing in heparinized plasma have been validated by the individual laboratory site where testing is performed. Testing on heparinized plasma is not approved by the FDA; however, such approval is not necessary. Potassium [Moles/Vol] 3.8 mmol/L 3.5 - 5.3 mmol/L [facility] Sodium [Moles/Vol] 141 mmol/L 136 - 145 mmol/L [facility] Urea nitrogen [Mass/Vol] 35 mg/dL High 6 - 23 mg/dL [facility] Albumin BCP dye [Mass/Vol] 3.3 g/dL Low 3.4-5.0 [facility] Comment on above: Performed By: #### 5 902-2 #### ERICA Tam ([id number]) [facility] ([facility]) [address] [place] [address] Anion gap [Moles/Vol] 13 mmol/L Normal 10-20 [facility] Comment on above: Performed By: #### 5 902-2 #### ERICA Tam ([id number]) [facility] ([facility]) [address] [place] [address] Calcium [Mass/Vol] 9.0 mg/dL Normal 8.6-10.6 [facility] Comment on above: Performed By: #### 5 902-2 #### ERICA MCDONALD L ([id number]) [facility] ([facility]) [address] [place] [address] Chloride [Moles/Vol] 101 mmol/L Normal 98-107 [facility] Comment on above: Performed By: #### 5 902-2 #### ERICA RESTREPOMOTZER L ([id number]) [facility] ([facility]) [address] [place] [address] CO2 [Moles/Vol] 31 mmol/L Normal 21-32 [facility] Comment on above: Performed By: #### 5 902-2 #### ERICA RESTREPOMOJOELLEER L ([id number]) [facility] ([facility]) [address] [place] [address] 04477 Creatinine [Mass/Vol] 1.68 mg/dL High 0.50-1.30 [facility] Comment on above: Performed By: #### 5 902-2 #### ERICA RESTREPOMOTZER L ([id number]) [facility] ([facility]) [address] [place] [address] 76951 Glomerular filtration rate/1.73 sq M.predicted 44 mL/min/1.73m*2 Low >60 [facility] Comment on above: Result Comment: Calc ulations of estimated GFR are performed using the 2020 CKD-EPI Study Refit equation without the race variable for the IDMS-Traceable creatinine methods. https://jasn.asnjournals.org/content/early//ASN.2020 413183 Performed By: #### 5 902-2 #### ERICA RESTREPOMOTZER L ([id number]) [facility] ([facility]) [address] [place] [address] Glucose [Mass/Vol] 174 mg/dL High 74-99 [facility] Comment on above: Performed By: #### 5 902-2 #### ERICA Tam ([id number]) [facility] ([facility]) [address] [place] [address] 89825 Phosphate [Mass/Vol] 2.8 mg/dL Normal 2.5-4.9 [facility] Comment on above: Result Comment: The performance characteristics of phosphorus testing in heparinized plasma have been validated by the individual laboratory site where testing is performed. Testing on heparinized plasma is not approved by the FDA; however, such approval is not necessary. Performed By: #### 5 902-2 #### ERICA Tam ([id number]) [facility] ([facility]) [address] [place] [address] 65550 Potassium [Moles/Vol] 3.8 mmol/L Normal 3.5-5.3 [facility] Comment on above: Performed By: #### 5 902-2 #### ERICA Tam ([id number]) [facility] ([facility]) [address] [place] [address] 58762 Sodium [Moles/Vol] 141 mmol/L Normal 136-145 [facility] Comment on above: Performed By: #### 5 902-2 #### ERICA Tam ([id number]) [facility] ([facility]) [address] [place] [address] 22100 Urea nitrogen [Mass/Vol] 35 mg/dL High 6-23 [facility] Comment on above: Performed By: #### 5 902-2 #### ERICA Tam ([id number]) [facility] ([facility]) [address] [place] [address] 25978 Blood type and Indirect anti body screen panel (Bld)on 12-24-2023 ABO group Nom (Bld) A [facility] Blood group antibody screen Ql Negative [facility] D Ag Ql (Bld) Positive [facility] Comment on above: 2nd ABO test require d. Order and Collect VERAB [facility] CBC panel Auto (Bld)on 12-23 Erythrocyte distribution width (RBC) [Ratio] 16.2 % High 11.5 - 14.5 % [facility] Hematocrit (Bld) [Volume fraction] 25 % Low 41.0 - 52.0 % [facility] Hemoglobin (Bld) [Mass/Vol] 7.6 g/dL Low 13.5 - 17.5 g/dL [facility] Interpretation and review of laboratory results Abnormal [facility] MCH (RBC) [Entitic mass] 28.5 pg 26.0 - 34.0 pg [facility] MCHC (RBC) [Mass/Vol] 30.4 g/dL Low 32.0 - 36.0 g/dL [facility] MCV (RBC) [Entitic vol] 94 fL 80 - 100 fL [facility] Nucleated RBC/100 WBC (Bld) [Ratio] 0 % [facility] Platelets (Bld) [#/Vol] 352 10*3/uL [facility] RBC (Bld) [#/Vol] 2.67 10*6/uL Low [facility] WBC (Bld) [#/Vol] 9.8 10*3/uL [facility] Erythrocyte distribution width (RBC) [Ratio] 16.2 % High 11.5-14.5 [facility] Comment on above: Performed By: #### 5 902-2 #### ERICA Tam ([id number]) [facility] ([facility]) [address] [place] [address] 02175 Hematocrit (Bld) [Volume fraction] 25.0 % Low 41.0-52.0 [facility] Comment on above: Performed By: #### 5 902-2 #### ERICA Tam ([id number]) [facility] ([facility]) [address] [place] [address] 28682 Hemoglobin (Bld) [Mass/Vol] 7.6 g/dL Low 13.5-17.5 [facility] Comment on above: Performed By: #### 5 902-2 #### ERICA Tam ([id number]) [facility] ([facility]) [address] [place] [address] 01307 MCH (RBC) [Entitic mass] 28.5 pg Normal 26.0-34.0 [facility] Comment on above: Performed By: #### 5 902-2 #### ERICA Tam ([id number]) [facility] ([facility]) [address] [place] [address] 56461 MCHC (RBC) [Mass/Vol] 30.4 g/dL Low 32.0-36.0 [facility] Comment on above: Performed By: #### 5 902-2 #### ERICA Tam ([id number]) [facility] ([facility]) [address] [place] [address] 71629 MCV (RBC) [Entitic vol] 94 fL Normal 80-100 [facility] Comment on above: Performed By: #### 5 902-2 #### ERICA Tam ([id number]) [facility] ([facility]) [address] [place] [address] 36537 Nucleated RBC/100 WBC (Bld) [Ratio] 0.0 /100 WBCs Normal 0.0-0.0 [facility] Comment on above: Performed By: #### 5 902-2 #### ERICA Tam ([id number]) [facility] ([facility]) [address] [place] [address] 34639 Platelets (Bld) [#/Vol] 352 x10*3/uL Normal 150-450 [facility] Comment on above: Performed By: #### 5 902-2 #### ERICA Tam ([id number]) [facility] ([facility]) [address] [place] [address] 91538 RBC (Bld) [#/Vol] 2.67 x10*6/uL Low 4.50-5.90 [facility] Comment on above: Performed By: #### 5 902-2 #### ERICA Tam ([id number]) [facility] ([facility]) [address] [place] [address] 62726 WBC (Bld) [#/Vol] 9.8 x10*3/uL Normal 4.4-11.3 [facility] Comment on above: Performed By: #### 5 902-2 #### ERICA Tam ([id number]) [facility] ([facility]) [address] [place] [address] 92713 Glucose Test strip manual (B ld) [Mass/Vol]on 12-24-2023 Glucose [Mass/Vol] 153 mg/dL High 74 - 99 mg/dL [facility] Interpretation and review of laboratory results Abnormal [facility] Glucose [Mass/Vol] 153 mg/dL High 74-99 [facility] Comment on above: Performed By: #### 5 902-2 #### ERICA Tam ([id number]) [facility] ([facility]) [address] [place] [address] 61675 Glucose [Mass/Vol] 77 mg/dL 74 - 99 mg/dL [facility] Interpretation and review of laboratory results Normal [facility] Glucose [Mass/Vol] 77 mg/dL Normal 74-99 [facility] Comment on above: Performed By: #### 5 902-2 #### ERICA Tam ([id number]) [facility] ([facility]) [address] [place] [address] 40043 Glucose [Mass/Vol] 134 mg/dL High 74 - 99 mg/dL [facility] Interpretation and review of laboratory results Abnormal [facility] Glucose [Mass/Vol] 134 mg/dL High 74-99 [facility] Comment on above: Performed By: #### 5 902-2 #### ERICA Tam ([id number]) [facility] ([facility]) [address] [place] [address] 11637 Glucose [Mass/Vol] 100 mg/dL High 74 - 99 mg/dL [facility] Interpretation and review of laboratory results Abnormal [facility] Glucose [Mass/Vol] 100 mg/dL High 74-99 [facility] Comment on above: Performed By: #### 5 902-2 #### ERICA Tam ([id number]) [facility] ([facility]) [address] [place] [address] 02100 Heparin Assayon 12-24-2023 Heparin unfractionated Chromogenic method Qn (PPP) 0.3 See Comment Below for Therapeutic Ranges IU/mL [facility] Heparin unfractionated Chrom ogenic method Qn (PPP)on 12-24-2023 Interpretation and review of laboratory results Normal [facility] The therapeutic reference range for UFH may be either 0.3-0.6 IU/mL or 0.3-0.7 IU/mL based on the clinical setting for anticoagulant therapy and the associated nomogram used. For Heparin dosing guidelines based on clinical scenario and Heparin Assay results, please refer to local Pharmacy and the [facility] Guidelines for Anticoagulation Therapy available on the [facility] intranet at: [email or web address] .[email or web address] [facility] Heparin.unfractionatedon Heparin unfractionated Chromogenic method Qn (PPP) 0.3 IU/mL Normal See Comment Below for Therapeutic Ranges [facility] Comment on above: Order Comment: If val monroe has not had PT + INR in the last 24 hours. Nursing to release order. Performed By: #### 5 902-2 #### ERICA Tam ([id number]) [facility] ([facility]) [address] [place] [address] 53086 Magnesiumon 12-24-2023 Magnesium [Mass/Vol] 1.92 mg/dL 1.60 - 2.40 mg/dL [facility] Magnesium [Mass/Vol] 1.92 mg/dL Normal 1.60-2.40 [facility] Comment on above: Performed By: #### 5 902-2 #### ERICA Tam ([id number]) [facility] [facility]) [id number] [place] [address] 66790 Magnesium [Mass/Vol]on 12-23 Interpretation and review of laboratory results Normal [facility] No Panel Informationon 12-23 [facility] Renal function 2000 panelon 12-24-2023 Albumin BCP dye [Mass/Vol] 3.1 g/dL Low 3.4 - 5.0 g/dL [facility] Anion gap [Moles/Vol] 12 mmol/L 10 - 2 0 mmol/L [facility] Calcium [Mass/Vol] 8.6 mg/dL 8.6 - 10. 6 mg/dL [facility] Chloride [Moles/Vol] 101 mmol/L 98 - 10 7 mmol/L [facility] CO2 [Moles/Vol] 31 mmol/L 21 - 32 mmol/L [facility] Creatinine [Mass/Vol] 1.67 mg/dL High 0.50 - 1.30 mg/dL [facility] GFR/1.73 sq M.predicted among non-blacks MDRD (S/P/Bld) [Vol rate/Area] 44 mL/min/{1.73_m2} Low - PINF [facility] Comment on above: Calculations of mercedez mated GFR are performed using the 2020 CKD-EPI Study Refit equation without the race variable for the IDMS-Traceable creatinine methods. https://jasn.asnjournals.org/content//ASN.2020 538287 Glucose [Mass/Vol] 168 mg/dL High 74 - 99 mg/dL [facility] Interpretation and review of laboratory results Abnormal [facility] Phosphate [Mass/Vol] 3 mg/dL 2.5 - 4 .9 mg/dL [facility] Comment on above: The performance cecilia acteristics of phosphorus testing in heparinized plasma have been validated by the individual laboratory site where testing is performed. Testing on heparinized plasma is not approved by the FDA; however, such approval is not necessary. Potassium [Moles/Vol] 3.8 mmol/L 3.5 - 5.3 mmol/L [facility] Sodium [Moles/Vol] 140 mmol/L 136 - 145 mmol/L [facility] Urea nitrogen [Mass/Vol] 43 mg/dL High 6 - 23 mg/dL [facility] Albumin BCP dye [Mass/Vol] 3.1 g/dL Low 3.4-5.0 [facility] Comment on above: Performed By: #### 5 902-2 #### ERICA HIGGINSER L ([id number]) [facility] ([facility]) [id number] [place] [address] 54597 Anion gap [Moles/Vol] 12 mmol/L Normal 10-20 [facility] Comment on above: Performed By: #### 5 902-2 #### ERICA RESTREPOMOTZER L ([id number]) [facility] ([facility]) [address] [place] [address] 40842 Calcium [Mass/Vol] 8.6 mg/dL Normal 8.6-10.6 [facility] Comment on above: Performed By: #### 5 902-2 #### ERICA RESTREPOMOJOELLEER L ([id number]) [facility] ([facility]) [id number] [place] [address] 11734 Chloride [Moles/Vol] 101 mmol/L Normal 98-107 [facility] Comment on above: Performed By: #### 5 902-2 #### ERICA RESTREPOMOTZER L ([id number]) [facility] ([facility]) [id number] [place] [address] 79752 CO2 [Moles/Vol] 31 mmol/L Normal 21-32 [facility] Comment on above: Performed By: #### 5 902-2 #### ERICA RESTREPOMOTZER L ([id number]) [facility] ([facility]) [address] [place] [address] 08693 Creatinine [Mass/Vol] 1.67 mg/dL High 0.50-1.30 [facility] Comment on above: Performed By: #### 5 902-2 #### ERICA RESTREPOMOTZER L ([id number]) [facility] ([facility]) [address] [place] [address] 48107 Glomerular filtration rate/1.73 sq M.predicted 44 mL/min/1.73m*2 Low >60 [facility] Comment on above: Result Comment: Calc ulations of estimated GFR are performed using the 2020 CKD-EPI Study Refit equation without the race variable for the IDMS-Traceable creatinine methods. https://jasn.asnjournals.org/content//ASN.2020 243913 Performed By: #### 5 902-2 #### ERICA Tam ([id number]) [facility] ([facility]) [address] [place] [address] Glucose [Mass/Vol] 168 mg/dL High 74-99 [facility] Comment on above: Performed By: #### 5 902-2 #### ERICA Tam ([id number]) [facility] ([facility]) [address] [place] [address] Phosphate [Mass/Vol] 3.0 mg/dL Normal 2.5-4.9 [facility] Comment on above: Result Comment: The performance characteristics of phosphorus testing in heparinized plasma have been validated by the individual laboratory site where testing is performed. Testing on heparinized plasma is not approved by the FDA; however, such approval is not necessary. Performed By: #### 5 902-2 #### ERICA Tam ([id number]) [facility] ([facility]) [address] [place] [address] Potassium [Moles/Vol] 3.8 mmol/L Normal 3.5-5.3 [facility] Comment on above: Performed By: #### 5 902-2 #### ERICA Tam ([id number]) [facility] ([facility]) [address] [place] [address] Sodium [Moles/Vol] 140 mmol/L Normal 136-145 [facility] Comment on above: Performed By: #### 5 902-2 #### ERICA MCDONALD L ([id number]) [facility] ([facility]) [address] [place] [address] Urea nitrogen [Mass/Vol] 43 mg/dL High 6-23 [facility] Comment on above: Performed By: #### 5 902-2 #### ERICA RESTREPOMOMARLENY L ([id number]) [facility] ([facility]) [address] [place] [address] 96793 TRANSTHORACIC ECHO (TTE) COM PLETEon 12-24-2023 TRANSTHORACIC ECHO (TTE) COMPLETE [facility], [address] [place], [place] [id number] and TRANSTHORACIC ECHOCARDIOGRAM REPORT Patient Name: ITALIA ALLEN Reading Physician: [id number] Melly Benítez MD Study Date: 12/24/2023 Ordering Provider: [id number] RAFI WALLER MRN/PID: [id number] Fellow: Nurse: Anai Swo RN Date of /Age: 6 1955 Child Development Consultant: Ke mancia RDCS Gender assigned at Additional Staff: : Height: 177.80 cm Admit Date: Weight: 112.04 kg Admission Status: Inpatient - Routine BSA / BMI: 2.28 m2 / 35.44 kg/m2 Blood Pressure: 151/79 mmHg Department Location: [facility] Non Invasive Study Type: TRANSTHORACIC ECHO (TTE) COMPLETE Diagnosis/ICD: Non ST elevation (NSTEMI) myocardial infarction-I21.4; Atherosclerotic heart disease of [place] coronary artery without angina pectoris-I25.10; Acute on chronic systolic (congestive) heart failure (CHF)-I50.23 Indication: ADHF, CHF, NSTEMI CPT Code: Echo Complete w Full Doppler-[id number] Patient History: Pertinent History: NSTEMI, CAD, HTN, HLD, CKD, T2DM, HFrEF 45-50%, ACS. Study Detail: The following Echo studies were performed: 2D, M-Mode, Doppler and color flow. Technically challenging study due to body habitus, poor acoustic windows and prominent lung artifact. Definity used as a contrast agent for endocardial border definition. Total contrast used for this procedure was 2.0 mL via IV push. PHYSICIAN INTERPRETATION: Left Ventricle: Left ventricular ejection fraction is normal, calculated by Patton's biplane at 59%. There are no regional left ventricular wall motion abnormalities. The left ventricular cavity size is normal. There is normal septal and normal posterior left ventricular wall thickness. Spectral Doppler shows a Grade I (impaired relaxation pattern) of left ventricular diastolic filling with normal left atrial filling pressure. Left Atrium: The left atrium is normal in size. Right Ventricle: The right ventricle is normal in size. There is normal right ventricular global systolic function. Right Atrium: The right atrium is normal in size. Aortic Valve: The aortic valve is structurally normal. There is minimal aortic valve cusp calcification. The aortic valve dimensionless index is 0.63. There is no evidence of aortic valve regurgitation. The peak instantaneous gradient of the aortic valve is 13 mmHg. The mean gradient of the mitral valve is 9 mmHg. Mitral Valve: The mitral valve is normal in structure. There is mild mitral annular calcification. There is trace mitral valve regurgitation. Tricuspid Valve: The tricuspid valve is structurally normal. There is trace tricuspid regurgitation. Pulmonic Valve: The pulmonic valve is structurally normal. There is physiologic pulmonic valve regurgitation. Pericardium: Trivial pericardial effusion. Aorta: The aortic root is normal. Systemic Veins: The inferior vena cava appears dilated, with IVC inspiratory collapse greater than 50%. In comparison to the previous echocardiogram(s): There are no prior studies on this patient for comparison purposes. CONCLUSIONS: 1. Poorly visualized anatomical structures due to suboptimal image quality. 2. Left ventricular ejection fraction is normal, calculated by Patton's biplane at 59%. 3. There is normal right ventricular global systolic function. RECOMMENDATIONS: Utilizing an FDA cleared automated machine learning algorithm ([place] Heart Failure by [employer]), the analysis of the apical 4-chamber echocardiogram suggests the presence of heart failure with preserved ejection fraction (HFpEF)*. Clinical correlation looking for additional heart failure signs and symptoms is recommended, as a definite diagnosis of heart failure cannot be made by imaging alone. *Per ACC/AHA/HFSA universal diagnosis of heart failure, HFpEF is defined as 1) signs and symptoms leading to clinical diagnosis of heart failure, 2) an ejection fraction of at least 50%, and 3) evidence of elevated intra-cardiac filling pressures by echocardiography, BNP elevation, or catheterization. QUANTITATIVE DATA SUMMARY: 2D MEASUREMENTS: Normal Ranges: Ao Root d: 3.70 cm (2.0-3.7cm) LAs: 4.30 cm (2.7-4.0cm) IVSd: 1.00 cm (0.6-1.1cm) LVPWd: 1.00 cm (0.6-1.1cm) LVIDd: 5.60 cm (3.9-5.9cm) LVIDs: 4.40 cm LV Mass Index: 96 g/m2 LVEDV Index: 57 ml/m2 LV % FS 21.4 % LA VOLUME: Normal Ranges: LA Vol A4C: 71.7 ml (22+/-6mL/m2) LA Vol A2C: 59.5 ml LA Vol BP: 66.6 ml LA Vol Index A4C: 31.4ml/m2 LA Vol Index A2C: 26.0 ml/m2 LA Vol Index BP: 29.2 ml/m2 LA Area A4C: 25.3 cm2 LA Area A2C: 22.6 cm2 LA Major [place] A4C: 7.6 cm LA [place] A2C: 7.3 cm LA Volume Index: 29.2 ml/m2 AORTA MEASUREMENTS: Normal Ranges: Asc Ao, d: 3.20 cm (2.1-3.4cm) LV SYSTOLIC FUNCTION BY 2D PLANIMETRY (MOD): Normal Ranges: EF-A4C View: 58 % (>=55%) EF-A2C View: 60 % EF-Biplane: 59 (more content not included)... Normal [facility] US Heart TransthoracicOrdere d By: Melly Benítez on 12-24-2023 Aortic Valve Area by Continuity of Peak Velocity 2.15 cm2 [facility] Work Phone: [phone] Aortic Valve Area by Continuity of VTI 1.98 cm2 [facility] Work Phone: [phone] AV mn grad 9 mmHg [facility] Work Phone: [phone] AV pk grad 13 mmHg [facility] Work Phone: AV pk martin 1.83 m/s [facility] Work Phone: [phone] Body surface area Derived from formula 2.36 m2 [facility] Work Phone: [phone] LA vol index A/L 29.2 ml/m2 [facility] Work Phone: [phone] LV A4C EF 58.4 [facility] Work Phone: [phone] LV EF 59 % [facility] Work Phone: [phone] LVIDd 5.6 cm [facility] Work Phone: LVOT diam 2 cm [facility] Work Phone: MV E/A ratio 0.88 [facility] Work Phone: RV free wall pk S' 16.8 cm/s [facility] Work Phone: Tricuspid annular plane systolic excursion 2.4 cm [facility] Work Phone: [facility] Work Phone: US Heart Transthoracicon [facility], [address] [place] [address] and TRANSTHORACIC ECHOCARDIOGRAM REPORT Patient Name: ITALIA Alfaro Physician: [id number] Alberto Benítez MD Study Date: 12/24/2023 Ordering Provider: [id number] RAFI WALLER MRN/PID: [id number] Fellow: Nurse: Anai Sow RN Date of /Age: 6 1955 Child Development Consultant: Ke mancia RDCS Gender assigned at M Additional Staff: : Height: 177.80 cm Admit Date: Weight: 112.04 kg Admission Status: Inpatient - Routine BSA / BMI: 2.28 m2 / 35.44 kg/m2 Blood Pressure: 151/79 mmHg Department Location: [facility] Non Invasive Study Type: TRANSTHORACIC ECHO (TTE) COMPLETE Diagnosis/ICD: Non ST elevation (NSTEMI) myocardial infarction-I21.4; Atherosclerotic heart disease of [place] coronary artery without angina pectoris-I25.10; Acute on chronic systolic (congestive) heart failure (CHF)-I50.23 Indication: ADHF, CHF, NSTEMI CPT Code: Echo Complete w Full Doppler-[id number] Patient History: Pertinent History: NSTEMI, CAD, HTN, HLD, CKD, T2DM, HFrEF 45-50%, ACS. Study Detail: The following Echo studies were performed: 2D, M-Mode, Doppler and color flow. Technically challenging study due to body habitus, poor acoustic windows and prominent lung artifact. Definity used as a contrast agent for endocardial border definition. Total contrast used for this procedure was 2.0 mL via IV push. PHYSICIAN INTERPRETATION: Left Ventricle: Left ventricular ejection fraction is normal, calculated by Patton's biplane at 59%. There are no regional left ventricular wall motion abnormalities. The left ventricular cavity size is normal. There is normal septal and normal posterior left ventricular wall thickness. Spectral Doppler shows a Grade I (impaired relaxation pattern) of left ventricular diastolic filling with normal left atrial filling pressure. Left Atrium: The left atrium is normal in size. Right Ventricle: The right ventricle is normal in size. There is normal right ventricular global systolic function. Right Atrium: The right atrium is normal in size. Aortic Valve: The aortic valve is structurally normal. There is minimal aortic valve cusp calcification. The aortic valve dimensionless index is 0.63. There is no evidence of aortic valve regurgitation. The peak instantaneous gradient of the aortic valve is 13 mmHg. The mean gradient of the mitral valve is 9 mmHg. Mitral Valve: The mitral valve is normal in structure. There is mild mitral annular calcification. There is trace mitral valve regurgitation. Tricuspid Valve: The tricuspid valve is structurally normal. There is trace tricuspid regurgitation. Pulmonic Valve: The pulmonic valve is structurally normal. There is physiologic pulmonic valve regurgitation. Pericardium: Trivial pericardial effusion. Aorta: The aortic root is normal. Systemic Veins: The inferior vena cava appears dilated, with IVC inspiratory collapse greater than 50%. In comparison to the previous echocardiogram(s): There are no prior studies on this patient for comparison purposes. CONCLUSIONS: 1. Poorly visualized anatomical structures due to suboptimal image quality. 2. Left ventricular ejection fraction is normal, calculated by Patton's biplane at 59%. 3. There is normal right ventricular global systolic function. RECOMMENDATIONS: Utilizing an FDA cleared automated machine learning algorithm ([employer] Heart Failure by [employer]), the analysis of the apical 4-chamber echocardiogram suggests the presence of heart failure with preserved ejection fraction (HFpEF)*. Clinical correlation looking for additional heart failure signs and symptoms is recommended, as a definite diagnosis of heart failure cannot be made by imaging alone. *Per ACC/AHA/HFSA universal diagnosis of heart failure, HFpEF is defined as 1) signs and symptoms leading to clinical diagnosis of heart failure, 2) an ejection fraction of at least 50%, and 3) evidence of elevated intra-cardiac filling pressures by echocardiography, BNP elevation, or catheterization. QUANTITATIVE DATA SUMMARY: 2D MEASUREMENTS: Normal Ranges: Ao Root d: 3.70 cm (2.0-3.7cm) LAs: 4.30 cm (2.7-4.0cm) IVSd: (more content not included)... Melly Alfaro MD - 12/24/2023 [facility], [address] [place] [address] and TRANSTHORACIC ECHOCARDIOGRAM REPORT Patient Name: ITALIA ALLEN Angelina Physician: [id number] Melly Benítez MD Study Date: 12/24/2023 Ordering Provider: [id number] RAFI WALLER MRN/PID: [id number] Fellow: Nurse: Anai Sow RN Date of /Age: 6 1955 Child Development Consultant: Ke mancia RDCS Gender assigned at Additional Staff: : Height: 177.80 cm Admit Date: Weight: 112.04 kg Admission Status: Inpatient - Routine BSA / BMI: 2.28 m2 / 35.44 kg/m2 Blood Pressure: 151/79 mmHg Department Location: [facility] Non Invasive Study Type: TRANSTHORACIC ECHO (TTE) COMPLETE Diagnosis/ICD: Non ST elevation (NSTEMI) myocardial infarction-I21.4; Atherosclerotic heart disease of [place] coronary artery without angina pectoris-I25.10; Acute on chronic systolic (congestive) heart failure (CHF)-I50.23 Indication: ADHF, CHF, NSTEMI CPT Code: Echo Complete w Full Doppler-[id number] Patient History: Pertinent History: NSTEMI, CAD, HTN, HLD, CKD, T2DM, HFrEF 45-50%, ACS. Study Detail: The following Echo studies were performed: 2D, M-Mode, Doppler and color flow. Technically challenging study due to body habitus, poor acoustic windows and prominent lung artifact. Definity used as a contrast agent for endocardial border definition. Total contrast used for this procedure was 2.0 mL via IV push. PHYSICIAN INTERPRETATION: Left Ventricle: Left ventricular ejection fraction is normal, calculated by Patton's biplane at 59%. There are no regional left ventricular wall motion abnormalities. The left ventricular cavity size is normal. There is normal septal and normal posterior left ventricular wall thickness. Spectral Doppler shows a Grade I (impaired relaxation pattern) of left ventricular diastolic filling with normal left atrial filling pressure. Left Atrium: The left atrium is normal in size. Right Ventricle: The right ventricle is normal in size. There is normal right ventricular global systolic function. Right Atrium: The right atrium is normal in size. Aortic Valve: The aortic valve is structurally normal. There is minimal aortic valve cusp calcification. The aortic valve dimensionless index is 0.63. There is no evidence of aortic valve regurgitation. The peak instantaneous gradient of the aortic valve is 13 mmHg. The mean gradient of the mitral valve is 9 mmHg. Mitral Valve: The mitral valve is normal in structure. There is mild mitral annular calcification. There is trace mitral valve regurgitation. Tricuspid Valve: The tricuspid valve is structurally normal. There is trace tricuspid regurgitation. Pulmonic Valve: The pulmonic valve is structurally normal. There is physiologic pulmonic valve regurgitation. Pericardium: Trivial pericardial effusion. Aorta: The aortic root is normal. Systemic Veins: The inferior vena cava appears dilated, with IVC inspiratory collapse greater than 50%. In comparison to the previous echocardiogram(s): There are no prior studies on this patient for comparison purposes. CONCLUSIONS: 1. Poorly visualized anatomical structures due to suboptimal image quality. 2. Left ventricular ejection fraction is normal, calculated by Patton's biplane at 59%. 3. There is normal right ventricular global systolic function. RECOMMENDATIONS: Utilizing an FDA cleared automated machine learning algorithm ([employer] Heart Failure by [employer]), the analysis of the apical 4-chamber echocardiogram suggests the presence of heart failure with preserved ejection fraction (HFpEF)*. Clinical correlation looking for additional heart failure signs and symptoms is recommended, as a definite diagnosis of heart failure cannot be made by imaging alone. *Per ACC/AHA/HFSA universal diagnosis of heart failure, HFpEF is defined as 1) signs and symptoms leading to clinical diagnosis of heart failure, 2) an ejection fraction of at least 50%, and 3) evidence of elevated intra-cardiac filling pressures by echocardiography, BNP elevation, or catheterization. QUANTITATIVE DATA SUMMARY: 2D MEASUREMENTS: Normal Ranges: Ao Root d: 3.70 cm (2.0-3.7cm) LAs: 4.30 cm (2.7-4.0cm) IVSd: 1.00 cm (0.6-1.1cm) LVPWd: 1.00 cm (0.6-1.1cm) LVIDd: 5.60 cm (3.9-5.9cm) LVIDs: 4.40 cm LV Mass Index: 96 g/m2 LVEDV Index: 57 ml/m2 LV % FS 21.4 % LA VOLUME: Normal Ranges: LA Vol A4C: 71.7 ml (22+/-6mL/m2) LA Vol A2C: 59.5 ml LA Vol BP: 66.6 ml LA Vol Index A4C: 31.4ml/m2 LA Vol Index A2C: 26.0 ml/m2 LA Vol Index BP: 29.2 ml/m2 LA Area A4C: 25.3 cm2 LA Area A2C: 22.6 cm2 LA [place] A4C: 7.6 cm LA [place] A2C: 7.3 cm LA Volume Index: 29.2 ml/m2 AORTA MEASUREMENTS: Normal Ranges: Asc Ao, d: 3.20 cm (2.1-3.4cm) LV SYSTOLIC FUNC (more content not included)... [facility] Work Phone: Blood type and Indirect anti body screen panel (Bld)on 12-23-2023 ABO group Nom (Bld) A Normal [facility] Comment on above: Performed By: #### 5 902-2 #### ERICA Tam ([id number]) [facility] ([facility]) [address] [place] [address] Blood group antibody screen Ql Negative [facility] Comment on above: Performed By: #### 5 902-2 #### ERICA Tam ([id number]) [facility] ([facility]) [address] [place] [address] D Ag Ql (Bld) Positive [facility] Comment on above: Result Comment: 2nd ABO test required. Order and Collect VERAB Performed By: #### 5 902-2 #### ERICA Tam ([id number]) [facility] ([facility]) [address] [place] [address] CBC panel Auto (Bld)on 12-22 Erythrocyte distribution width (RBC) [Ratio] 16.2 % High 11.5 - 14.5 % [facility] Hematocrit (Bld) [Volume fraction] 25.6 % Low 41.0 - 52.0 % [facility] Hemoglobin (Bld) [Mass/Vol] 7.8 g/dL Low 13.5 - 17.5 g/dL [facility] Interpretation and review of laboratory results Abnormal [facility] MCH (RBC) [Entitic mass] 28.5 pg 26.0 - 34.0 pg [facility] MCHC (RBC) [Mass/Vol] 30.5 g/dL Low 32.0 - 36.0 g/dL [facility] MCV (RBC) [Entitic vol] 93 fL 80 - 100 fL [facility] Nucleated RBC/100 WBC (Bld) [Ratio] 0 % [facility] Platelets (Bld) [#/Vol] 327 10*3/uL [facility] RBC (Bld) [#/Vol] 2.74 10*6/uL Low [facility] WBC (Bld) [#/Vol] 9.3 10*3/uL [facility] Erythrocyte distribution width (RBC) [Ratio] 16.2 % High 11.5-14.5 [facility] Comment on above: Performed By: #### 5 902-2 #### ERICA Tam ([id number]) [facility] ([facility]) [address] [place], [place] [id number] Hematocrit (Bld) [Volume fraction] 25.6 % Low 41.0-52.0 [facility] Comment on above: Performed By: #### 5 902-2 #### ERICA Tam ([id number]) [facility] ([facility]) [address] [place] [address] 59214 Hemoglobin (Bld) [Mass/Vol] 7.8 g/dL Low 13.5-17.5 [facility] Comment on above: Performed By: #### 5 902-2 #### ERICA Tam ([id number]) [facility] ([facility]) [address] [place] [address] MCH (RBC) [Entitic mass] 28.5 pg Normal 26.0-34.0 [facility] Comment on above: Performed By: #### 5 902-2 #### ERICA Tam ([id number]) [facility] ([facility]) [address] [place] [address] MCHC (RBC) [Mass/Vol] 30.5 g/dL Low 32.0-36.0 [facility] Comment on above: Performed By: #### 5 902-2 #### ERICA Tam ([id number]) [facility] ([facility]) [address] [place] [address] MCV (RBC) [Entitic vol] 93 fL Normal 80-100 [facility] Comment on above: Performed By: #### 5 902-2 #### ERICA Tam ([id number]) [facility] ([facility]) [address] [place] [address] Nucleated RBC/100 WBC (Bld) [Ratio] 0.0 /100 WBCs Normal 0.0-0.0 [facility] Comment on above: Performed By: #### 5 902-2 #### ERICA Tam ([id number]) [facility] ([facility]) [address] [place] [address] Platelets (Bld) [#/Vol] 327 x10*3/uL Normal 150-450 [facility] Comment on above: Performed By: #### 5 902-2 #### ERICA Tam ([id number]) [facility] ([facility]) [address] [place] [address] RBC (Bld) [#/Vol] 2.74 x10*6/uL Low 4.50-5.90 [facility] Comment on above: Performed By: #### 5 902-2 #### ERICA Tam ([id number]) [facility] ([facility]) [address] [place] [address] WBC (Bld) [#/Vol] 9.3 x10*3/uL Normal 4.4-11.3 [facility] Comment on above: Performed By: #### 5 902-2 #### ERICA Tam ([id number]) [facility] ([facility]) [address] [place] [address] Cobalamin (Vitamin B12) [Mas s/Vol]on 12-23-2023 Interpretation and review of laboratory results Normal [facility] Cobalaminson 12-23-2023 Cobalamin (Vitamin B12) [Mass/Vol] 283 pg/mL Normal 211-911 [facility] Comment on above: Performed By: #### 5 902-2 #### ERICA Tam ([id number]) [facility] ([facility]) [address] [place] [address] Ferritinon 12-23-2023 Ferritin [Mass/Vol] 198 ng/mL 20 - 300 ng/mL [facility] Ferritin [Mass/Vol]on 2023 Interpretation and review of laboratory results Normal [facility] Folateon 12-23-2023 Folate [Mass/Vol] 5.6 ng/mL 5.0 - PINF ng/mL [facility] Folate [Mass/Vol] 5.6 ng/mL Normal >5.0 [facility] Comment on above: Order Comment: If val monroe has not had PT + INR in the last 24 hours. Nursing to release order. Performed By: #### 5 902-2 #### ERICA Tam ([id number]) [facility] ([facility]) [address] [place] [address] 23484 Folate [Mass/Vol]on 12-23-19 Interpretation and review of laboratory results Normal [facility] Low <3.4 Borderline 3.4-5.0 Normal >5.0 Patients receiving more than 5 mg/day of biotin may have interference in test results. A sample should be taken no sooner than eight hours after previous dose. Contact the testing laboratory for additional information. [facility] Glucose Test strip manual (B ld) [Mass/Vol]on 12-23-2023 Glucose [Mass/Vol] 186 mg/dL High 74 - 99 mg/dL [facility] Interpretation and review of laboratory results Abnormal [facility] Glucose [Mass/Vol] 186 mg/dL High 74-99 [facility] Comment on above: Performed By: #### 5 902-2 #### ERICA Tam ([id number]) [facility] ([facility]) [address] [place] [address] 34894 Glucose [Mass/Vol] 100 mg/dL High 74 - 99 mg/dL [facility] Interpretation and review of laboratory results Abnormal [facility] Glucose [Mass/Vol] 100 mg/dL High 74-99 [facility] Comment on above: Performed By: #### 5 902-2 #### ERICA Tam ([id number]) [facility] ([facility]) [address] [place] [address] 25605 Glucose [Mass/Vol] 126 mg/dL High 74 - 99 mg/dL [facility] Interpretation and review of laboratory results Abnormal [facility] Glucose [Mass/Vol] 126 mg/dL High 74-99 [facility] Comment on above: Performed By: #### 5 902-2 #### ERICA Tam ([id number]) [facility] ([facility]) [address] [place] [address] 21103 Glucose [Mass/Vol] 159 mg/dL High 74 - 99 mg/dL [facility] Interpretation and review of laboratory results Abnormal [facility] Glucose [Mass/Vol] 159 mg/dL High 74-99 [facility] Comment on above: Performed By: #### 5 902-2 #### ERICA Tam ([id number]) [facility] ([facility]) [address] [place] [address] 69880 Heparin Assayon 12-23-2023 Heparin unfractionated Chromogenic method Qn (PPP) 0.4 See Comment Below for Therapeutic Ranges IU/mL [facility] Heparin unfractionated Chromogenic method Qn (PPP) 0.4 See Comment Below for Therapeutic Ranges IU/mL [facility] Heparin unfractionated Chrom ogenic method Qn (PPP)on 12-23-2023 Interpretation and review of laboratory results Normal [facility] The therapeutic reference range for UFH may be either 0.3-0.6 IU/mL or 0.3-0.7 IU/mL based on the clinical setting for anticoagulant therapy and the associated nomogram used. For Heparin dosing guidelines based on clinical scenario and Heparin Assay results, please refer to local Pharmacy and the [facility] Guidelines for Anticoagulation Therapy available on the [facility] intranet at: [email or web address] [facility] Interpretation and review of laboratory results Normal [facility] The therapeutic reference range for UFH may be either 0.3-0.6 IU/mL or 0.3-0.7 IU/mL based on the clinical setting for anticoagulant therapy and the associated nomogram used. For Heparin dosing guidelines based on clinical scenario and Heparin Assay results, please refer to local Pharmacy and the [facility] Guidelines for Anticoagulation Therapy available on the [facility] intranet at: [email or web address] .[email or web address] [facility] Heparin.unfractionatedon Heparin unfractionated Chromogenic method Qn (PPP) 0.4 IU/mL Normal See Comment Below for Therapeutic Ranges [facility] Comment on above: Order Comment: If val monroe has not had PT + INR in the last 24 hours. Nursing to release order. Performed By: #### 5 902-2 #### ERICA Tam ([id number]) [facility] ([facility]) [address] [place] [address] Heparin unfractionated Chromogenic method Qn (PPP) 0.4 IU/mL Normal See Comment Below for Therapeutic Ranges [facility] Comment on above: Order Comment: If val monroe has not had PT + INR in the last 24 hours. Nursing to release order. Performed By: #### 5 902-2 #### ERICA Tam ([id number]) [facility] ([facility]) [address] [place] [address] Iron and Iron binding capaci ty panelon 12-23-2023 Interpretation and review of laboratory results Abnormal [facility] Iron [Mass/Vol] 34 ug/dL Low 35 - 150 ug/dL [facility] Iron binding capacity [Mass/Vol] 231 ug/dL Low 240 - 445 ug/dL [facility] Iron binding capacity.unsaturated [Mass/Vol] 197 ug/dL 110 - 370 ug/dL [facility] Iron saturation [Mass fraction] 15 % Low 25 - 45 % [facility] Lipid 1996 panelon Cholesterol [Mass/Vol] 102 mg/dL 0 - 1 99 mg/dL [facility] Comment on above: Age Desirable Borderline High High 0-19 Y [...] be performed immediately prior to Metamizole dosing. Cholesterol in HDL [Mass/Vol] 26.4 mg/dL [facility] Comment on above: Age Very Low Low Normal High 0-19 Y < 35 < 40 40-45 ---- 20-24 Y ---- < 40 >45 ---- >24 Y ---- < 40 40-60 >60 Cholesterol in LDL [Mass/Vol] 39 mg/dL NINF - 99 mg/dL [facility] Comment on above: Near Borderline AGE Desirable Optimal High High Very High 0-19 Y 0 - 109 --- 110-129 >/= 130 ---- 20-24 Y 0 - 119 --- 120-159 >/= 160 ---- >24 Y 0 - 99 100-129 130-159 160-189 >/=190 Cholesterol in VLDL [Mass/Vol] 37 mg/dL 0 - 40 mg/dL [facility] Cholesterol.total/Cele sterol in HDL [Mass ratio] 3.9 {ratio} [facility] Comment on above: Ref Values Desirable < 3.4 High Risk > 5.0 Interpretation and review of laboratory results Abnormal [facility] Non HDL Cholesterol 76 mg/dL 0 - 149 mg/dL [facility] Comment on above: Age Desirable Borderline High High Very High 0-19 Y 0 - 119 120 - 144 >/= 145 >/= 160 20-24 Y 0 - 149 150 - 189 >/= 190 ---- >24 Y 30 mg/dL above LDL Cholesterol goal Triglyceride [Mass/Vol] 185 mg/dL High 0 - 149 mg/dL [facility] Comment on above: Age Desirable Border line High Very High SEX:B mg/dL mg/dL mg/dL mg/dL <=14D 86-277 ---- ---- ---- 15D-365D 55-277 ---- ---- ---- 1Y-9Y 0-74 75-99 >=100 ---- 10Y-19Y 0-89 90-129 >=130 ---- 20Y-24Y 0-114 115-149 >=150 ---- >= 25Y 0-149 150-199 200-499 >=500 Venipuncture immediately after or during the administration of Metamizole may lead to falsely low results. Testing should be performed immediately prior to Metamizole dosing. [facility] Magnesiumon 12-23-2023 Magnesium [Mass/Vol] 1.95 mg/dL 1.60 - 2.40 mg/dL [facility] Magnesium [Mass/Vol] 1.95 mg/dL Normal 1.60-2.40 [facility] Comment on above: Performed By: #### 5 902-2 #### ERICA Tam ([id number]) [facility] ([facility]) [address] [place] [address] Magnesium [Mass/Vol]on 12-22 Interpretation and review of laboratory results Normal [facility] No Panel Informationon 12-22 [facility] Renal function 2000 panelon 12-23-2023 Albumin BCP dye [Mass/Vol] 3.2 g/dL Low 3.4 - 5.0 g/dL [facility] Anion gap [Moles/Vol] 12 mmol/L 10 - 2 0 mmol/L [facility] Calcium [Mass/Vol] 8.7 mg/dL 8.6 - 10. 6 mg/dL [facility] Chloride [Moles/Vol] 103 mmol/L 98 - 10 7 mmol/L [facility] CO2 [Moles/Vol] 29 mmol/L 21 - 32 mmol/L [facility] Creatinine [Mass/Vol] 1.68 mg/dL High 0.50 - 1.30 mg/dL [facility] GFR/1.73 sq M.predicted among non-blacks MDRD (S/P/Bld) [Vol rate/Area] 44 mL/min/{1.73_m2} Low - PINF [facility] Comment on above: Calculations of mercedez mated GFR are performed using the 2020 CKD-EPI Study Refit equation without the race variable for the IDMS-Traceable creatinine methods. https://jasn.asnjournals.org/content/early/ASN.2020 564734 Glucose [Mass/Vol] 182 mg/dL High 74 - 99 mg/dL [facility] Interpretation and review of laboratory results Abnormal [facility] Phosphate [Mass/Vol] 3.4 mg/dL 2.5 - 4 .9 mg/dL [facility] Comment on above: The performance cecilia acteristics of phosphorus testing in heparinized plasma have been validated by the individual laboratory site where testing is performed. Testing on heparinized plasma is not approved by the FDA; however, such approval is not necessary. Potassium [Moles/Vol] 3.8 mmol/L 3.5 - 5.3 mmol/L [facility] Sodium [Moles/Vol] 140 mmol/L 136 - 145 mmol/L [facility] Urea nitrogen [Mass/Vol] 49 mg/dL High 6 - 23 mg/dL [facility] Albumin BCP dye [Mass/Vol] 3.2 g/dL Low 3.4-5.0 [facility] Comment on above: Performed By: #### 5 902-2 #### ERICA Tam ([id number]) [facility] ([facility]) [address] [place] [address] 81452 Anion gap [Moles/Vol] 12 mmol/L Normal 10-20 [facility] Comment on above: Performed By: #### 5 902-2 #### ERICA Tam ([id number]) [facility] ([facility]) [address] [place] [address] 70222 Calcium [Mass/Vol] 8.7 mg/dL Normal 8.6-10.6 [facility] Comment on above: Performed By: #### 5 902-2 #### ERICA Tam ([id number]) [facility] ([facility]) [address] [place] [address] 55877 Chloride [Moles/Vol] 103 mmol/L Normal 98-107 [facility] Comment on above: Performed By: #### 5 902-2 #### ERICA Tam ([id number]) [facility] ([facility]) [address] [place] [address] 32821 CO2 [Moles/Vol] 29 mmol/L Normal 21-32 [facility] Comment on above: Performed By: #### 5 902-2 #### ERICA Tam ([id number]) [facility] ([facility]) [address] [place] [address] 08632 Creatinine [Mass/Vol] 1.68 mg/dL High 0.50-1.30 [facility] Comment on above: Performed By: #### 5 902-2 #### ERICA Tam ([id number]) [facility] ([facility]) [address] [place] [address] 23253 Glomerular filtration rate/1.73 sq M.predicted 44 mL/min/1.73m*2 Low >60 [facility] Comment on above: Result Comment: Calc ulations of estimated GFR are performed using the 2020 CKD-EPI Study Refit equation without the race variable for the IDMS-Traceable creatinine methods. https://jasn.asnjournals.org/content//ASN.2020 332241 Performed By: #### 5 902-2 #### ERICA Tam ([id number]) [facility] ([facility]) [address] [place] [address] Glucose [Mass/Vol] 182 mg/dL High 74-99 [facility] Comment on above: Performed By: #### 5 902-2 #### ERICA Tam ([id number]) [facility] ([facility]) [address] [place] [address] 04694 Phosphate [Mass/Vol] 3.4 mg/dL Normal 2.5-4.9 [facility] Comment on above: Result Comment: The performance characteristics of phosphorus testing in heparinized plasma have been validated by the individual laboratory site where testing is performed. Testing on heparinized plasma is not approved by the FDA; however, such approval is not necessary. Performed By: #### 5 902-2 #### ERICA Tam ([id number]) [facility] ([facility]) [address] [place] [address] Potassium [Moles/Vol] 3.8 mmol/L Normal 3.5-5.3 [facility] Comment on above: Performed By: #### 5 902-2 #### ERICA Tam ([id number]) [facility] ([facility]) [address] [place] [address] Sodium [Moles/Vol] 140 mmol/L Normal 136-145 [facility] Comment on above: Performed By: #### 5 902-2 #### ERICA Tam ([id number]) [facility] ([facility]) [address] [place] [address] Urea nitrogen [Mass/Vol] 49 mg/dL High 6-23 [facility] Comment on above: Performed By: #### 5 902-2 #### ERICA TAMARA Yonatan ([id number]) [facility] ([facility]) [address] [place] [address] Vitamin B12on 12-23-2023 Cobalamin (Vitamin B12) [Mass/Vol] 283 pg/mL 211 - 911 pg/mL [facility] CBC W Auto Differential pane l (Bld)on 12-22-2023 Basophils (Bld) [#/Vol] 0.05 10*3/uL [facility] Basophils/100 WBC (Bld) 0.6 % 0.0 - 2.0 % [facility] Eosinophils (Bld) [#/Vol] 0.4 10*3/uL [facility] Eosinophils/100 WBC (Bld) 4.9 % 0.0 - 6.0 % [facility] Erythrocyte distribution width (RBC) [Ratio] 16 % High 11.5 - 14.5 % [facility] Hematocrit (Bld) [Volume fraction] 24.6 % Low 41.0 - 52.0 % [facility] Hemoglobin (Bld) [Mass/Vol] 7.5 g/dL Low 13.5 - 17.5 g/dL [facility] Immature granulocytes (Bld) [#/Vol] 0.07 10*3/uL [facility] Immature granulocytes/100 WBC (Bld) 0.9 % 0.0 - 0.9 % [facility] Comment on above: Immature Granulocyte Count (IG) includes promyelocytes, myelocytes and metamyelocytes but does not include bands. Percent differential counts (%) should be interpreted in the context of the absolute cell counts (cells/UL). Interpretation and review of laboratory results Abnormal [facility] Lymphocytes (Bld) [#/Vol] 0.79 10*3/uL Low [facility] Lymphocytes/100 WBC (Bld) 9.7 % 13.0 - 44.0 % [facility] MCH (RBC) [Entitic mass] 28.6 pg 26.0 - 34.0 pg [facility] MCHC (RBC) [Mass/Vol] 30.5 g/dL Low 32.0 - 36.0 g/dL [facility] MCV (RBC) [Entitic vol] 94 fL 80 - 100 fL [facility] Monocytes (Bld) [#/Vol] 0.68 10*3/uL [facility] Monocytes/100 WBC (Bld) 8.4 % 2.0 - 10.0 % [facility] Neutrophils (Bld) [#/Vol] 6.15 10*3/uL [facility] Comment on above: Percent differential counts (%) should be interpreted in the context of the absolute cell counts (cells/uL). Neutrophils/100 WBC (Bld) 75.5 % 40.0 - 80.0 % [facility] Nucleated RBC/100 WBC (Bld) [Ratio] 0 % [facility] Platelets (Bld) [#/Vol] 316 10*3/uL [facility] RBC (Bld) [#/Vol] 2.62 10*6/uL Low [facility] WBC (Bld) [#/Vol] 8.1 10*3/uL [facility] Basophils (Bld) [#/Vol] 0.05 x10*3/uL Normal 0.00-0.10 [facility] Comment on above: Performed By: #### 5 8077-9 #### ERICA Tam ([id number]) [facility] ([facility]) [address] [place] [address] 10926 Basophils/100 WBC (Bld) 0.6 % Normal 0.0-2.0 [facility] Comment on above: Performed By: #### 5 8077-9 #### ERICA Tam ([id number]) [facility] ([facility]) [address] [place] [address] Eosinophils (Bld) [#/Vol] 0.40 x10*3/uL Normal 0.00-0.70 [facility] Comment on above: Performed By: #### 5 8077-9 #### ERICA Tam ([id number]) [facility] ([facility]) [address] [place] [address] Eosinophils/100 WBC (Bld) 4.9 % Normal 0.0-6.0 [facility] Comment on above: Performed By: #### 5 8077-9 #### ERICA Tam ([id number]) [facility] ([facility]) [address] [place] [address] 58707 Erythrocyte distribution width (RBC) [Ratio] 16.0 % High 11.5-14.5 [facility] Comment on above: Performed By: #### 5 8077-9 #### ERICA Tam ([id number]) [facility] ([facility]) [address] [place] [address] 55180 Hematocrit (Bld) [Volume fraction] 24.6 % Low 41.0-52.0 [facility] Comment on above: Performed By: #### 5 8077-9 #### ERICA Tam ([id number]) [facility] ([facility]) [address] [place] [address] 67879 Hemoglobin (Bld) [Mass/Vol] 7.5 g/dL Low 13.5-17.5 [facility] Comment on above: Performed By: #### 5 8077-9 #### ERICA Tam ([id number]) [facility] ([facility]) [address] [place] [address] 45648 Immature granulocytes (Bld) [#/Vol] 0.07 x10*3/uL Normal 0.00-0.70 [facility] Comment on above: Performed By: #### 5 8077-9 #### ERICA Tam ([id number]) [facility] ([facility]) [address] [place] [address] 14543 Immature granulocytes/100 WBC (Bld) 0.9 % Normal 0.0-0.9 [facility] Comment on above: Result Comment: Daniela ture Granulocyte Count (IG) includes promyelocytes, myelocytes and metamyelocytes but does not include bands. Percent differential counts (%) should be interpreted in the context of the absolute cell counts (cells/UL). Performed By: #### 5 8077-9 #### ERICA Tam ([id number]) [facility] ([facility]) [address] [place] [address] [place] [address] Lymphocytes (Bld) [#/Vol] 0.79 x10*3/uL Low 1.20-4.80 [facility] Comment on above: Performed By: #### 5 8077-9 #### ERICA Tam ([id number]) [facility] ([facility]) [address] [place] [address] 71326 Lymphocytes/100 WBC (Bld) 9.7 % Normal 13.0-44.0 [facility] Comment on above: Performed By: #### 5 8077-9 #### ERIAC Tam ([id number]) [facility] ([facility]) [address] [place] [address] 94400 MCH (RBC) [Entitic mass] 28.6 pg Normal 26.0-34.0 [facility] Comment on above: Performed By: #### 5 8077-9 #### ERICA Tam ([id number]) [facility] ([facility]) [address] [place] [address] 63407 MCHC (RBC) [Mass/Vol] 30.5 g/dL Low 32.0-36.0 [facility] Comment on above: Performed By: #### 5 8077-9 #### ERICA Tam ([id number]) [facility] ([facility]) [address] [place] [address] 83189 MCV (RBC) [Entitic vol] 94 fL Normal 80-100 [facility] Comment on above: Performed By: #### 5 8077-9 #### ERICA Tam ([id number]) [facility] ([facility]) [address] [place] [address] 48531 Monocytes (Bld) [#/Vol] 0.68 x10*3/uL Normal 0.10-1.00 [facility] Comment on above: Performed By: #### 5 8077-9 #### ERICA Tam ([id number]) [facility] ([facility]) [address] [place] [address] 20804 Monocytes/100 WBC (Bld) 8.4 % Normal 2.0-10.0 [facility] Comment on above: Performed By: #### 5 8077-9 #### ERICA Tam ([id number]) [facility] ([facility]) [address] [place] [address] 97617 Neutrophils (Bld) [#/Vol] 6.15 x10*3/uL Normal 1.20-7.70 [facility] Comment on above: Result Comment: Perc ent differential counts (%) should be interpreted in the context of the absolute cell counts (cells/uL). Performed By: #### 5 8077-9 #### ERICA Tam ([id number]) [facility] ([facility]) [address] [place] [address] 45115 Neutrophils/100 WBC (Bld) 75.5 % Normal 40.0-80.0 [facility] Comment on above: Performed By: #### 5 8077-9 #### ERICA Tam ([id number]) [facility] ([facility]) [address] [place] [address] 22048 Nucleated RBC/100 WBC (Bld) [Ratio] 0.0 /100 WBCs Normal 0.0-0.0 [facility] Comment on above: Performed By: #### 5 8077-9 #### ERICA Tam ([id number]) [facility] ([facility]) [address] [place] [address] 24375 Platelets (Bld) [#/Vol] 316 x10*3/uL Normal 150-450 [facility] Comment on above: Performed By: #### 5 8077-9 #### ERICA Tam ([id number]) [facility] ([facility]) [address] [place] [address] 49979 RBC (Bld) [#/Vol] 2.62 x10*6/uL Low 4.50-5.90 [facility] Comment on above: Performed By: #### 5 8077-9 #### ERICA Tam ([id number]) [facility] ([facility]) [address] [place] [address] 85233 WBC (Bld) [#/Vol] 8.1 x10*3/uL Normal 4.4-11.3 [facility] Comment on above: Performed By: #### 5 8077-9 #### ERICA Tam ([id number]) [facility] ([facility]) [address] [place] [id number] Comprehensive metabolic 2000 panelon 12-22-2023 Albumin BCP dye [Mass/Vol] 3 g/dL Low 3.4 - 5.0 g/dL [facility] ALP [Catalytic activity/Vol] 63 U/L 33 - 136 U/L [facility] ALT With P-5'-P [Catalytic activity/Vol] 15 U/L 10 - 52 U/L [facility] Comment on above: Patients treated wit h Sulfasalazine may generate falsely decreased results for ALT. Anion gap [Moles/Vol] 17 mmol/L 10 - 2 0 mmol/L [facility] AST With P-5'-P [Catalytic activity/Vol] 12 U/L 9 - 39 U/L [facility] Bilirubin [Mass/Vol] 0.4 mg/dL 0.0 - 1 .2 mg/dL [facility] Calcium [Mass/Vol] 8.3 mg/dL Low 8.6 - 10. 6 mg/dL [facility] Chloride [Moles/Vol] 103 mmol/L 98 - 10 7 mmol/L [facility] CO2 [Moles/Vol] 23 mmol/L 21 - 32 mmol/L [facility] Creatinine [Mass/Vol] 1.95 mg/dL High 0.50 - 1.30 mg/dL [facility] GFR/1.73 sq M.predicted among non-blacks MDRD (S/P/Bld) [Vol rate/Area] 37 mL/min/{1.73_m2} Low - PINF [facility] Comment on above: Calculations of mercedez mated GFR are performed using the 2020 CKD-EPI Study Refit equation without the race variable for the IDMS-Traceable creatinine methods. https://jasn.asnjournals.org/content/early/ASN.2020 366655 Glucose [Mass/Vol] 174 mg/dL High 74 - 99 mg/dL [facility] Interpretation and review of laboratory results Abnormal [facility] Potassium [Moles/Vol] 4.5 mmol/L 3.5 - 5.3 mmol/L [facility] Protein [Mass/Vol] 5.4 g/dL Low 6.4 - 8.2 g/dL [facility] Sodium [Moles/Vol] 138 mmol/L 136 - 145 mmol/L [facility] Urea nitrogen [Mass/Vol] 48 mg/dL High 6 - 23 mg/dL [facility] Albumin BCP dye [Mass/Vol] 3.0 g/dL Low 3.4-5.0 [facility] Comment on above: Performed By: #### 5 8077-9 #### ERICA Tam ([id number]) [facility] ([facility]) [address] [place] [address] 84046 ALP [Catalytic activity/Vol] 63 U/L Normal 33-136 [facility] Comment on above: Performed By: #### 5 8077-9 #### ERICA Tam ([id number]) [facility] ([facility]) [address] [place] [address] 53502 ALT With P-5'-P [Catalytic activity/Vol] 15 U/L Normal 10-52 [facility] Comment on above: Result Comment: Criselda ents treated with Sulfasalazine may generate falsely decreased results for ALT. Performed By: #### 5 8077-9 #### ERICA Tam ([id number]) [facility] ([facility]) [address] [place] [address] Anion gap [Moles/Vol] 17 mmol/L Normal 10-20 [facility] Comment on above: Performed By: #### 5 8077-9 #### ERICA Tam ([id number]) [facility] ([facility]) [address] [place] [address] 76777 AST With P-5'-P [Catalytic activity/Vol] 12 U/L Normal 9-39 [facility] Comment on above: Performed By: #### 5 8077-9 #### ERICA MCDONALD L ([id number]) [facility] ([facility]) [address] [place] [address] Bilirubin [Mass/Vol] 0.4 mg/dL Normal 0.0-1.2 [facility] Comment on above: Performed By: #### 5 8077-9 #### ERICA HIGGINSER L ([id number]) [facility] ([facility]) [address] [place] [address] Calcium [Mass/Vol] 8.3 mg/dL Low 8.6-10.6 [facility] Comment on above: Performed By: #### 5 8077-9 #### ERICA MCDONALD L ([id number]) [facility] ([facility]) [address] [place] [address] Chloride [Moles/Vol] 103 mmol/L Normal 98-107 [facility] Comment on above: Performed By: #### 5 8077-9 #### ERICA RESTREPOMOTZER L ([id number]) [facility] ([facility]) [address] [place] [address] CO2 [Moles/Vol] 23 mmol/L Normal 21-32 [facility] Comment on above: Performed By: #### 5 8077-9 #### ERICA RESTREPOMOTZER L ([id number]) [facility] ([facility]) [address] [place] [address] Creatinine [Mass/Vol] 1.95 mg/dL High 0.50-1.30 [facility] Comment on above: Performed By: #### 5 8077-9 #### ERICA SCHMOTZER L ([id number]) [facility] ([facility]) [address] [place] [address] Glomerular filtration rate/1.73 sq M.predicted 37 mL/min/1.73m*2 Low >60 [facility] Comment on above: Result Comment: Calc ulations of estimated GFR are performed using the 2020 CKD-EPI Study Refit equation without the race variable for the IDMS-Traceable creatinine methods. https://jasn.asnjournals.org/content//ASN.2020 420991 Performed By: #### 5 8077-9 #### ERICA Tam ([id number]) [facility] ([facility]) [address] [place] [address] Glucose [Mass/Vol] 174 mg/dL High 74-99 [facility] Comment on above: Performed By: #### 5 8077-9 #### ERICA Tam ([id number]) [facility] ([facility]) [address] [place] [address] 37552 Potassium [Moles/Vol] 4.5 mmol/L Normal 3.5-5.3 [facility] Comment on above: Performed By: #### 5 8077-9 #### ERICA Tam ([id number]) [facility] ([facility]) [address] [place] [address] 51287 Protein [Mass/Vol] 5.4 g/dL Low 6.4-8.2 [facility] Comment on above: Performed By: #### 5 8077-9 #### ERICA Tam ([id number]) [facility] ([facility]) [address] [place] [address] 27209 Sodium [Moles/Vol] 138 mmol/L Normal 136-145 [facility] Comment on above: Performed By: #### 5 8077-9 #### ERICA Tam ([id number]) [facility] ([facility]) [id number] [place] [address] 56333 Urea nitrogen [Mass/Vol] 48 mg/dL High 6-23 [facility] Comment on above: Performed By: #### 5 8077-9 #### ERICA Tam ([id number]) [facility] ([facility]) [address] [place] [address] 21207 ECG 12-LEADon 12-22-2023 ECG 12-LEAD Ventricular Rate 77 Atrial Rate 77 P-R Interval 186 QRS Duration 92 Q-T Interval 378 QTC Calculation(Bazett) 427 P [place] 2 R [place] 27 T [place] 124 QRS Count 13 Q Onset 221 P Onset 128 P Offset 170 T Offset 410 QTC Fredericia 410 Diagnosis Sinus rhythm with frequent Premature ventricular complexes Nonspecific T wave abnormality Abnormal ECG When compared with ECG of 22-DEC-2023 11:44, No significant change was found Confirmed by Santiago Pope ([id number]) on 12/25/2023 11:27:31 AM Normal [facility] Ferritinon 12-22-2023 Ferritin [Mass/Vol] 198 ng/mL Normal 20-300 [facility] Comment on above: Performed By: #### 5 902-2 #### ERICA Tam ([id number]) [facility] ([facility]) [address] [place] [address] 88229 Glucose Test strip manual (B ld) [Mass/Vol]on 12-22-2023 Glucose [Mass/Vol] 191 mg/dL High 74 - 99 mg/dL [facility] Interpretation and review of laboratory results Abnormal [facility] Glucose [Mass/Vol] 191 mg/dL High 74-99 [facility] Comment on above: Performed By: #### 5 902-2 #### ERICA Tam ([id number]) [facility] ([facility]) [address] [place] [address] 84733 Glucose [Mass/Vol] 209 mg/dL High 74 - 99 mg/dL [facility] Interpretation and review of laboratory results Abnormal [facility] Glucose [Mass/Vol] 209 mg/dL High 74-99 [facility] Comment on above: Performed By: #### 5 902-2 #### ERICA Tam ([id number]) [facility] ([facility]) [address] [place] [address] 03745 Glucose [Mass/Vol] 210 mg/dL High 74 - 99 mg/dL [facility] Interpretation and review of laboratory results Abnormal [facility] Glucose [Mass/Vol] 210 mg/dL High 74-99 [facility] Comment on above: Performed By: #### 5 8077-9 #### ERICA Tam ([id number]) [facility] ([facility]) [address] [place] [address] 40876 Glucose [Mass/Vol] 171 mg/dL High 74 - 99 mg/dL [facility] Interpretation and review of laboratory results Abnormal [facility] Glucose [Mass/Vol] 171 mg/dL High 74-99 [facility] Comment on above: Performed By: #### 5 8077-9 #### ERICA Tam ([id number]) [facility] ([facility]) [address] [place] [address] 86546 HbA1c (Bld) [Mass fraction]o n 12-22-2023 Average glucose Estimated from glycated hemoglobin (Bld) [Mass/Vol] 148 mg/dL Not Established [facility] Interpretation and review of laboratory results Abnormal [facility] Diagnosis of Diabetes-Adults Non-Diabetic: < or = 5.6% Increased risk for developing diabetes: 5.7-6.4% Diagnostic of diabetes: > or = 6.5% [facility] Average glucose Estimated from glycated hemoglobin (Bld) [Mass/Vol] 148 mg/dL Normal Not Established [facility] Comment on above: Order Comment: Diagn osis of Bdssxehd-JqdatiZac-Fbnmjrwf: < or = 5.6%Increased risk for developing diabetes: 5.7-6.4%Diagnostic of diabetes: > or = 6.5% Performed By: #### 5 8077-9 #### ERICA Tam ([id number]) [facility] ([facility]) [address] [place] [address] 88742 Hemoglobin A1con 12-22-2023 HbA1c (Bld) [Mass fraction] 6.8 % High See comment [facility] Hemoglobin A1c/Hemoglobin.to guero 12-22-2023 HbA1c (Bld) [Mass fraction] 6.8 % High See comment [facility] Comment on above: Order Comment: Diagn osis of Eejfblrr-MuvydwSye-Trojhihc: < or = 5.6%Increased risk for developing diabetes: 5.7-6.4%Diagnostic of diabetes: > or = 6.5% Performed By: #### 5 8077-9 #### ERICA Tam ([id number]) [facility] ([facility]) [address] [place] [address] Heparin AssayOrdered By: Enrique Santiago on 12-22-2023 Heparin unfractionated Chromogenic method Qn (PPP) See Comment Below for Therapeutic Ranges IU/mL [facility] Heparin Assay, UFHon 024 Heparin unfractionated Chromogenic method Qn (PPP) 0.1 See Comment Below for Therapeutic Ranges IU/mL [facility] Heparin unfractionated Chrom ogenic method Qn (PPP)on 12-22-2023 Interpretation and review of laboratory results Normal [facility] The therapeutic reference range for UFH may be either 0.3-0.6 IU/mL or 0.3-0.7 IU/mL based on the clinical setting for anticoagulant therapy and the associated nomogram used. For Heparin dosing guidelines based on clinical scenario and Heparin Assay results, please refer to local Pharmacy and the [facility] Guidelines for Anticoagulation Therapy available on the [facility] intranet at: [email or web address]_ Guidelines_for_Anticoagu .aspx [facility] Heparin unfractionated Chrom ogenic method Qn (PPP)Ordered By: Michael Santiago on 12-22-2023 Interpretation and review of laboratory results Normal [facility] The therapeutic reference range for UFH may be either 0.3-0.6 IU/mL or 0.3-0.7 IU/mL based on the clinical setting for anticoagulant therapy and the associated nomogram used. For Heparin dosing guidelines based on clinical scenario and Heparin Assay results, please refer to local Pharmacy and the [facility] Guidelines for Anticoagulation Therapy available on the [facility] intranet at: [email or web address]/[email or web address] es/[place]_ Guidelines_for_Anticoagu .aspx [facility] Heparin.unfractionatedon Heparin unfractionated Chromogenic method Qn (PPP) 0.1 IU/mL Normal See Comment Below for Therapeutic Ranges [facility] Comment on above: Order Comment: Obtai n 4 hours after any Heparin dosage change. Nursing to release order.The therapeutic reference range for UFH may be either 0.3-0.6 IU/mL or 0.3-0.7 IU/mL based on the clinical setting for anticoagulant therapy and the associated nomogram used. For Heparin dosing guidelines based on clinical scenario and Heparin Assay results, please refer to local Pharmacy and the [facility] Guidelines for Anticoagulation Therapy available on the [facility] intranet at: [email or web address] [facility]_Guidelines_for_Anticoagu.aspx Performed By: #### 5 8077-9 #### ERICA Tam ([id number]) [facility] ([facility]) [address] [place], [place] [address] Heparin unfractionated Chromogenic method Qn (PPP) <0.1 Normal See Comment Below for Therapeutic Ranges [facility] Comment on above: Order Comment: The t herapeutic reference range for UFH may be either 0.3-0.6 IU/mL or 0.3-0.7 IU/mL based on the clinical setting for anticoagulant therapy and the associated nomogram used. For Heparin dosing guidelines based on clinical scenario and Heparin Assay results, please refer to local Pharmacy and the [facility] Guidelines for Anticoagulation Therapy available on the [facility] intranet at: [email or web address] [facility]_Guidelines_for_Anticoagu.aspx Performed By: #### 5 8077-9 #### ERICA Tam ([id number]) [facility] ([facility]) [address] [place] [address] 45025 Iron and Iron binding capaci ty panelon 12-22-2023 Iron [Mass/Vol] 34 ug/dL Low 35-150 [facility] Comment on above: Performed By: #### 5 902-2 #### ERICA Tam ([id number]) [facility] ([facility]) [address] [place] [address] 66677 Iron binding capacity [Mass/Vol] 231 ug/dL Low 240-445 [facility] Comment on above: Performed By: #### 5 902-2 #### ERICA Tam ([id number]) [facility] ([facility]) [address] [place] [address] 64886 Iron binding capacity.unsaturated [Mass/Vol] 197 ug/dL Normal 110-370 [facility] Comment on above: Performed By: #### 5 902-2 #### ERICA Tam ([id number]) [facility] ([facility]) [address] [place] [address] 45469 Iron saturation [Mass fraction] 15 % Low 25-45 [facility] Comment on above: Performed By: #### 5 902-2 #### ERICA Tam ([id number]) [facility] ([facility]) [address] [place] [address] 67432 Lipid 1996 panelon 4 Cholesterol [Mass/Vol] 102 mg/dL Normal 0-199 [facility] Comment on above: Result Comment: [...] prior to Metamizole dosing. Performed By: #### 5 902-2 #### ERICA Tam ([id number]) [facility] ([facility]) [address] [place] [address] Cholesterol in HDL [Mass/Vol] 26.4 mg/dL Normal [facility] Comment on above: Result Comment: Age Very Low Low Normal High 0-19 Y < 35 < 40 40-45 ---- 20-24 Y ---- < 40 >45 ---- >24 Y ---- < 40 40-60 >60 Performed By: #### 5 902-2 #### ERICA Tam ([id number]) [facility] ([facility]) [address] [place] [address] Cholesterol in LDL [Mass/Vol] 39 mg/dL Normal <=99 [facility] Comment on above: Result Comment: Near Borderline AGE Desirable Optimal High High Very High 0-19 Y 0 - 109 --- 110-129 >/= 130 ---- 20-24 Y 0 - 119 --- 120-159 >/= 160 ---- >24 Y 0 - 99 100-129 130-159 160-189 >/=190 Performed By: #### 5 902-2 #### ERICA Tam ([id number]) [facility] ([facility]) [address] [place] [address] 84637 Cholesterol in VLDL [Mass/Vol] 37 mg/dL Normal 0-40 [facility] Comment on above: Performed By: #### 5 902-2 #### ERICA Tam ([id number]) [facility] ([facility]) [address] [place] [address] 87080 CHOLESTEROL/HDL RATIO 3.9 Normal [facility] Comment on above: Result Comment: Ref Values Desirable < 3.4 High Risk > 5.0 Performed By: #### 5 902-2 #### ERICA Tam ([id number]) [facility] ([facility]) [address] [place] [address] 34662 NON HDL CHOLESTEROL 76 mg/dL Normal 0-149 [facility] Comment on above: Result Comment: Age Desirable Borderline High High Very High 0-19 Y 0 - 119 120 - 144 >/= 145 >/= 160 20-24 Y 0 - 149 150 - 189 >/= 190 ---- >24 Y 30 mg/dL above LDL Cholesterol goal Performed By: #### 5 902-2 #### ERICA Tam ([id number]) [facility] ([facility]) [address] [place] [address] 89344 Triglyceride [Mass/Vol] 185 mg/dL High 0-149 [facility] Comment on above: Result Comment: Age Desirable Borderline High Very High SEX:B mg/dL mg/dL mg/dL mg/dL <=14D 86-277 ---- ---- ---- 15D-365D 55-277 ---- ---- ---- 1Y-9Y 0-74 75-99 >=100 ---- 10Y-19Y 0-89 90-129 >=130 ---- 20Y-24Y 0-114 115-149 >=150 ---- >= 25Y 0-149 150-199 200-499 >=500 Venipuncture immediately after or during the administration of Metamizole may lead to falsely low results. Testing should be performed immediately prior to Metamizole dosing. Performed By: #### 5 902-2 #### ERICA Tam ([id number]) [facility] ([facility]) [address] [place], [place] [address] Magnesiumon 12-22-2023 Magnesium [Mass/Vol] 1.97 mg/dL 1.60 - 2.40 mg/dL [facility] Magnesium [Mass/Vol] 1.97 mg/dL Normal 1.60-2.40 [facility] Comment on above: Performed By: #### 5 8077-9 #### ERICA Tam ([id number]) [facility] ([facility]) [address] [place], [place] [address] Magnesium [Mass/Vol]on 12-21 Interpretation and review of laboratory results Normal [facility] Natriuretic peptide B [Mass/ Vol]on 12-22-2023 Interpretation and review of laboratory results Abnormal [facility] Natriuretic peptide B (Bld) [Mass/Vol] 306 pg/mL High 0 - 99 pg/mL [facility] <100 pg/mL - Heart failure unlikely 100-299 pg/mL - Intermediate probability of acute heart failure exacerbation. Correlate with clinical context and patient history. >=300 pg/mL - Heart Failure likely. Correlate with clinical context and patient history. Biotin interference may cause falsely decreased results. Patients taking a Biotin dose of up to 5 mg/day should refrain from taking Biotin for 24 hours before sample collection. Providers may contact their local laboratory for further information. [facility] Natriuretic peptide B (Bld) [Mass/Vol] 306 pg/mL High 0-99 [facility] Comment on above: Order Comment: <100 pg/mL - Heart failure [id number] pg/mL - Intermediate probability of acute heart failure exacerbation. Correlate with clinical context and patient history. >=300 pg/mL - Heart Failure likely. Correlate with clinical context and patient history.Biotin interference may cause falsely decreased results. Patients taking a Biotin dose of up to 5 mg/day should refrain from taking Biotin for 24 hours before sample collection. Providers may contact their local laboratory for further information. Performed By: #### 5 8077-9 #### ERICA Tam ([id number]) [facility] ([facility]) [address] [place] [address] No Panel Informationon 12-21 [facility] PT and aPTT panel Coag (PPP) on 12-22-2023 aPTT Coag (PPP) [Time] 30 s Un [facility] INR Coag (PPP) [Relative time] 1.2 {INR} High 0.9 - 1.1 [facility] Interpretation and review of laboratory results Abnormal [facility] PT Coag (PPP) [Time] 13.1 s High [facility] The APTT is no longe r used for monitoring Unfractionated Heparin Therapy. For monitoring Heparin Therapy, use the Heparin Assay. [facility] aPTT Coag (PPP) [Time] 30 s Normal 27-38 Un [facility] Comment on above: Order Comment: The A PTT is no longer used for monitoring Unfractionated Heparin Therapy. For monitoring Heparin Therapy, use the Heparin Assay. Performed By: #### 5 8077-9 #### ERICA Tam ([id number]) [facility] ([facility]) [address] [place] [address] INR Coag (PPP) [Relative time] 1.2 High 0.9-1.1 [facility] Comment on above: Order Comment: The A PTT is no longer used for monitoring Unfractionated Heparin Therapy. For monitoring Heparin Therapy, use the Heparin Assay. Performed By: #### 5 8077-9 #### ERICA Tam ([id number]) [facility] ([facility]) [address] [place] [address] PT Coag (PPP) [Time] 13.1 s High 9.8-12.8 [facility] Comment on above: Order Comment: The A PTT is no longer used for monitoring Unfractionated Heparin Therapy. For monitoring Heparin Therapy, use the Heparin Assay. Performed By: #### 5 8077-9 #### ERICA Tam ([id number]) [facility] ([facility]) [address] [place] [address] Tropinin I.cardiac panel Hig h sensitivity methodon 12-22-2023 Interpretation and review of laboratory results Abnormal [facility] Less than 99th percentile of normal range cutoff- Female and children under 18 years old <35 ng/L; Male <54 ng/L: Negative Repeat testing should be performed if clinically indicated. Female and children under 18 years old 35-120 ng/L; Male 54-120 ng/L: Consistent with possible cardiac damage and possible increased clinical risk. Serial measurements may help to assess extent of myocardial damage. >120 ng/L: Consistent with cardiac damage, increased clinical risk and myocardial infarction. Serial measurements may help assess extent of myocardial damage. NOTE: Children less than 1 year old may have higher baseline troponin levels and results should be interpreted in conjunction with the overall clinical context. NOTE: Troponin I testing is performed using a different testing methodology at [facility] than at other [facility]. Direct result comparisons should only be made within the same method. [facility] Interpretation and review of laboratory results Abnormal [facility] Less than 99th percentile of normal range cutoff- Female and children under 18 years old <35 ng/L; Male <54 ng/L: Negative Repeat testing should be performed if clinically indicated. Female and children under 18 years old 35-120 ng/L; Male 54-120 ng/L: Consistent with possible cardiac damage and possible increased clinical risk. Serial measurements may help to assess extent of myocardial damage. >120 ng/L: Consistent with cardiac damage, increased clinical risk and myocardial infarction. Serial measurements may help assess extent of myocardial damage. NOTE: Children less than 1 year old may have higher baseline troponin levels and results should be interpreted in conjunction with the overall clinical context. NOTE: Troponin I testing is performed using a different testing methodology at [facility] than at other [facility]. Direct result comparisons should only be made within the same method. [facility] Troponin I, High Sensitivity on 12-22-2023 Tropinin I.cardiac panel High sensitivity method 366 ng/L Critically high 0 - 53 ng/L [facility] Comment on above: Previous result veri fied on 12/22/20231725 on specimen/case [id number] called with component TRP for procedure Troponin I, High Sensitivity with value 492 ng/L. Tropinin I.cardiac panel High sensitivity method 492 ng/L Critically high 0 - 53 ng/L [facility] Troponin I.cardiac panelon 1 02-20-2023 Tropinin I.cardiac panel High sensitivity method 366 ng/L Critically high 0-53 [facility] Comment on above: Order Comment: If val monroe has not had PT + INR in the last 24 hours. Nursing to release order. Result Comment: Prev ious result verified on 12/22/20231725 on specimen/case [id number] called with component TRP for procedure Troponin I, High Sensitivity with value 492 ng/L. Performed By: #### 5 902-2 #### ERICA Tam ([id number]) [facility] ([facility]) [address] [place] [address] Tropinin I.cardiac panel High sensitivity method 492 ng/L Critically high 0-53 [facility] Comment on above: Order Comment: Less than 99th percentile of normal range cutoff-Female and children under 18 years old <35 ng/L; Male <54 ng/L: NegativeRepeat testing should be performed if clinically indicated.Female and children under 18 years old 35-120 ng/L; Male 54-120 ng/L:Consistent with possible cardiac damage and possible increased clinicalrisk. Serial measurements may help to assess extent of myocardial damage.>120 ng/L: Consistent with cardiac damage, increased clinical risk andmyocardial infarction. Serial measurements may help assess extent ofmyocardial damage.NOTE: Children less than 1 year old may have higher baseline troponinlevels and results should be interpreted in conjunction with the overallclinical context.NOTE: Troponin I testing is performed using a differenttesting methodology at [facility] than at [facility]. Direct result comparisons should onlybe made within the same method. Performed By: #### 5 8077-9 #### ERICA Tam ([id number]) [facility] ([facility]) [address] [place] [address] XR CHEST 2 VIEWSon 4 XR CHEST 2 VIEWS Interpreted By: Ryan Amezcua, STUDY: XR CHEST 2 VIEWS; 12/22/2023 1:16 pm INDICATION: Signs/Symptoms:Admission , CHF, NSTEMI. COMPARISON: Exam dated 10/16/2023 ACCESSION NUMBER(S): [id number] ORDERING CLINICIAN: RAFI WALLER FINDINGS: PA and lateral radiographs of the chest were provided. Additional PA dual energy images were also provided. Clips project over the right upper quadrant. CARDIOMEDIASTINAL SILHOUETTE: Stable enlargement of the cardiac silhouette. LUNGS: Diffusely increased interstitial markings. No focal consolidation, pneumothorax, or pleural effusion. ABDOMEN: No remarkable upper abdominal findings. BONES: No acute osseous changes. IMPRESSION: 1. Findings suggestive of pulmonary interstitial edema. No focal consolidation, pneumothorax, or pleural effusion. MACRO: None Signed by: Ryan Banks 12/22/2023 3:40 PM Dictation workstation: [id number] [facility] XR Chest 2 Viewson 4 1. Findings suggesti ve of pulmonary interstitial edema. No focal consolidation, pneumothorax, or pleural effusion. MACRO: None Signed by: Ryan Banks 12/22/2023 3:40 PM Dictation workstation: [id number] [facility] Interpreted By: Ryan Amezcua, STUDY: XR CHEST 2 VIEWS; 12/22/2023 1:16 pm INDICATION: Signs/Symptoms:Admission , CHF, NSTEMI. COMPARISON: Exam dated 10/16/2023 ACCESSION NUMBER(S): [id number] ORDERING CLINICIAN: RAFI WALLER FINDINGS: PA and lateral radiographs of the chest were provided. Additional PA dual energy images were also provided. Clips project over the right upper quadrant. CARDIOMEDIASTINAL SILHOUETTE: Stable enlargement of the cardiac silhouette. LUNGS: Diffusely increased interstitial markings. No focal consolidation, pneumothorax, or pleural effusion. ABDOMEN: No remarkable upper abdominal findings. BONES: No acute osseous changes. [facility] Ryan Banks MD - 12/22/2023 Interpreted By: Ryan Banks, STUDY: XR CHEST 2 VIEWS; 12/22/2023 1:16 pm INDICATION: Signs/Symptoms:Admission , CHF, NSTEMI. COMPARISON: Exam dated 10/16/2023 ACCESSION NUMBER(S): [id number] ORDERING CLINICIAN: RAFI WALLER FINDINGS: PA and lateral radiographs of the chest were provided. Additional PA dual energy images were also provided. Clips project over the right upper quadrant. CARDIOMEDIASTINAL SILHOUETTE: Stable enlargement of the cardiac silhouette. LUNGS: Diffusely increased interstitial markings. No focal consolidation, pneumothorax, or pleural effusion. ABDOMEN: No remarkable upper abdominal findings. BONES: No acute osseous changes. IMPRESSION: 1. Findings suggestive of pulmonary interstitial edema. No focal consolidation, pneumothorax, or pleural effusion. MACRO: None Signed by: Ryan Banks 12/22/2023 3:40 PM Dictation workstation: [id number] [facility] Work Phone: Radiology Study observation (narrative) [facility] Work Phone: XR Chest 2 ViewsOrdered By: Ryan Banks on 12-22-2023 [facility] Work Phone: Urology Office/Clinic Noteon 12-21-2023 Urology Office/Clinic Note Urology Office/Clinic Note Chief Complaint New Pt HPI Staff New Pt. Pt was seen at [facility] ER 11/19/23, pt has Seals Dysuria: denies pain or burning Incomplete bladder emptying: yes Hematuria: denies visible blood in bag Abdominal pain: pre existing pain Flank pain: pre existing back pain History of Present Illness I have reviewed and verified the staff HPI to be accurate for this encounter. Portions of this record may have been created with voice recognition artificial intelligence software, specifically peerTransfer, Conspire and or [employer]de[employer]. Substitutions may have occurred due to the inherent limitations of voice recognition and artificial intelligence software. Review of Systems PHQ Score Initial Depression Screen Score: 0 SCORE Physical Exam Vitals & Measurements HR: 76(Peripheral) RR: 16 BP: 110/60 HT: 70 in HT: 178 cm WT: 104.4 kg WT: 229.68 lb BMI: 32.95 General: Well developed, well nourished, in no acute distress. Genitourinary: Flank Pain: none. Bladder: nonpalpable. Assessment/Plan 1. Urinary retention (R33.9: Retention of urine, unspecified) F [facility] 11/19/2023 with complaints of difficulty urinating x 12 hours. Bladder scan at that time showed 380 mL. Seals was placed and patient discharged. Patient denies ever having urinary issues in the past or episode of retention. He does admit to some possible constipation at the time of retention. Bowel movements are somewhat regular per his reports. Will start tamsulosin today. See #2. Patient adamant about seals removal despite risks of recurrence of retention given unresolved constipation, has not been on alpha-afrhad. I did discuss further evaluation with cystoscopy. However, patient is very overwhelmed at this time. Seals removed in office today without complications. -nurse visit PVR early next week. If PVR >300, Replace seals vs CIC teaching -f/u 2 weeks w/ SUDHIR with PVR 2. BPH (benign prostatic hyperplasia) (N40.0: Benign prostatic hyperplasia without lower urinary tract symptoms) Denies any issues with urination prior to episode of retention We discussed male urologic anatomy including the prostate and how this is likely contributing to his urinary symptoms. We discussed how potential prostate obstruction affects long-term bladder health and compliance. We discussed alpha-farhad medications to help with urinary symptoms, possible side effects. I did advise patient that these medications do not protect the bladder while alleviating some urinary symptoms. In order to assess degree of bladder outlet obstruction and bladder health, discussed further evaluation with cystoscopy. Start tamsulosin 0.4 mg daily. Rx sent to pharmacy. -Continue to monitor 3. 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 Medications aspirin 81 mg oral capsule, Oral, q24hr atorvastatin 80 mg Tab, 80 mg= 1 tab(s), Oral, Daily bumetanide 2 mg Tab, 2 mg= 1 tab(s), Oral carvedilol 25 mg Tab, 25 mg= 1 tab(s), Oral, BID glipiZIDE 5 mg Tab, 5 mg= 1 tab(s), Oral, Daily lisinopril 40 mg Tab nitroglycerin 0.4 mg sublingual Tab, 0.4 mg= 1 tab(s), SubLingual, q5min, PRN prasugrel 10 mg Tab, 10 mg= 1 tab(s), Oral, Daily Semglee (Prefilled Pen) 100 units/mL subcutaneous solution tamsulosin 0.4 mg Cap, 0.4 mg= 1 cap(s), Oral, Daily, 11 refills Zoloft, Oral, Daily Allergies No Known Medication Allergies Social History Tobacco Never (less than 100 in lifetime), Former smoker, quit more than 30 days ago Tobacco Use:. Never Smokeless Tobacco Use:. chew tabacco, 11/22/2023 Family History Kidney stone: Mother. Throat cancer: Mother. [facility] Comment on above: Result Comment: Elec tronically Signed By: RADHA Grier APRN, [place]\.br\Date and Time Signed: 12/21/23 14:00 EDT Ambulatory Visit Summaryon 1 Ambulatory Visit Summary Ambulatory Visit Summary ITALIA ALLEN :1955 Visit Date:11/22/2023 Ambulatory Visit Instructions Your Diagnosis Urinary retention Your Care Team Attending Physician - RADHA Grier APRN, [place] [facility] Primary Care Physician - SAMARA VILLASEÑOR CNP This Is Your Medications List [...] for choosing us for your care. Normal [facility] ECG 12-LEADon 11-13-2023 ECG 12-LEAD Ventricular Rate 72 Atrial Rate 72 P-R Interval 188 QRS Duration 96 Q-T Interval 398 QTC Calculation(Bazett) 435 P [place] -13 R [place] 9 T [place] 36 QRS Count 12 Q Onset 216 P Onset 122 P Offset 163 T Offset 415 QTC Fredericia 423 Diagnosis Normal sinus rhythm Normal ECG When compared with ECG of 16-OCT-2023 08:50, No significant change was found Confirmed by Mere Urban ([id number]) on 11/14/2023 6:48:02 PM Normal [facility] CBC panel Auto (Bld)on 10-23 Erythrocyte distribution width (RBC) [Ratio] 15.0 % High 11.5 - 14.5 % [facility] Hematocrit (Bld) [Volume fraction] 36.3 % Low 41.0 - 52.0 % [facility] Hemoglobin (Bld) [Mass/Vol] 11.4 g/dL Low 13.5 - 17.5 g/dL [facility] Interpretation and review of laboratory results Abnormal [facility] MCH (RBC) [Entitic mass] 29.1 pg 26.0 - 34.0 pg [facility] MCHC (RBC) [Mass/Vol] 31.4 g/dL Low 32.0 - 36.0 g/dL [facility] MCV (RBC) [Entitic vol] 93 fL 80 - 100 fL [facility] Nucleated RBC/100 WBC (Bld) [Ratio] 0.0 % [facility] Platelets (Bld) [#/Vol] 313 10*3/uL [facility] RBC (Bld) [#/Vol] 3.92 10*6/uL [facility] WBC (Bld) [#/Vol] 8.9 10*3/uL [facility] Erythrocyte distribution width (RBC) [Ratio] 15.0 % High 11.5-14.5 [facility] Comment on above: Performed By: #### 5 8077-9 #### ERICA Tam ([id number]) [facility] ([facility]) [address] [place] [address] 32493 Hematocrit (Bld) [Volume fraction] 36.3 % Low 41.0-52.0 [facility] Comment on above: Performed By: #### 5 8077-9 #### ERICA Tam ([id number]) [facility] ([facility]) [address] [place] [address] 72442 Hemoglobin (Bld) [Mass/Vol] 11.4 g/dL Low 13.5-17.5 [facility] Comment on above: Performed By: #### 5 8077-9 #### ERICA Tam ([id number]) [facility] ([facility]) [address] [place] [address] MCH (RBC) [Entitic mass] 29.1 pg Normal 26.0-34.0 [facility] Comment on above: Performed By: #### 5 8077-9 #### ERICA Tam ([id number]) [facility] ([facility]) [address] [place] [address] MCHC (RBC) [Mass/Vol] 31.4 g/dL Low 32.0-36.0 [facility] Comment on above: Performed By: #### 5 8077-9 #### ERICA Tam ([id number]) [facility] ([facility]) [address] [place] [address] 90783 MCV (RBC) [Entitic vol] 93 fL Normal 80-100 [facility] Comment on above: Performed By: #### 5 8077-9 #### ERICA Tam ([id number]) [facility] ([facility]) [address] [place] [address] 50274 Nucleated RBC/100 WBC (Bld) [Ratio] 0.0 /100 WBCs Normal 0.0-0.0 [facility] Comment on above: Performed By: #### 5 8077-9 #### ERICA Tam ([id number]) [facility] ([facility]) [address] [place] [address] 92674 Platelets (Bld) [#/Vol] 313 x10*3/uL Normal 150-450 [facility] Comment on above: Performed By: #### 5 8077-9 #### ERICA Tam ([id number]) [facility] ([facility]) [address] [place] [address] 61498 RBC (Bld) [#/Vol] 3.92 x10*6/uL Low 4.50-5.90 [facility] Comment on above: Performed By: #### 5 8077-9 #### ERICA Tam ([id number]) [facility] ([facility]) [address] [place] [address] WBC (Bld) [#/Vol] 8.9 x10*3/uL Normal 4.4-11.3 [facility] Comment on above: Performed By: #### 5 8077-9 #### ERICA Tam ([id number]) [facility] ([facility]) [address] [place], [place] [id number] Glucose Test strip manual (B ld) [Mass/Vol]on 10-24-2023 Glucose [Mass/Vol] 203 mg/dL High 74 - 99 mg/dL [facility] Interpretation and review of laboratory results Abnormal [facility] Glucose [Mass/Vol] 203 mg/dL High 74-99 [facility] Comment on above: Performed By: #### 5 8077-9 #### ERICA Tam ([id number]) [facility] ([facility]) [address] [place] [address] 58966 Renal function 2000 panelon 10-24-2023 Albumin BCP dye [Mass/Vol] 3.2 g/dL Low 3.4 - 5.0 g/dL [facility] Anion gap [Moles/Vol] 12 mmol/L 10 - 2 0 mmol/L [facility] Calcium [Mass/Vol] 8.4 mg/dL Low 8.6 - 10. 6 mg/dL [facility] Chloride [Moles/Vol] 105 mmol/L 98 - 10 7 mmol/L [facility] CO2 [Moles/Vol] 24 mmol/L 21 - 32 mmol/L [facility] Creatinine [Mass/Vol] 1.72 mg/dL High 0.50 - 1.30 mg/dL [facility] GFR/1.73 sq M.predicted among non-blacks MDRD (S/P/Bld) [Vol rate/Area] 42 mL/min/{1.73_m2} Low - PINF [facility] Comment on above: Calculations of mercedez mated GFR are performed using the 2020 CKD-EPI Study Refit equation without the race variable for the IDMS-Traceable creatinine methods. https://jasn.asnjournals.org/content//ASN.2020 903139 Glucose [Mass/Vol] 184 mg/dL High 74 - 99 mg/dL [facility] Interpretation and review of laboratory results Abnormal [facility] Phosphate [Mass/Vol] 3.9 mg/dL 2.5 - 4 .9 mg/dL [facility] Comment on above: The performance cecilia acteristics of phosphorus testing in heparinized plasma have been validated by the individual laboratory site where testing is performed. Testing on heparinized plasma is not approved by the FDA; however, such approval is not necessary. Potassium [Moles/Vol] 4.1 mmol/L 3.5 - 5.3 mmol/L [facility] Sodium [Moles/Vol] 137 mmol/L 136 - 145 mmol/L [facility] Urea nitrogen [Mass/Vol] 38 mg/dL High 6 - 23 mg/dL [facility] Albumin BCP dye [Mass/Vol] 3.2 g/dL Low 3.4-5.0 [facility] Comment on above: Performed By: #### 5 8077-9 #### ERICA Tam ([id number]) [facility] ([facility]) [address] [place] [address] 32257 Anion gap [Moles/Vol] 12 mmol/L Normal 10-20 [facility] Comment on above: Performed By: #### 5 8077-9 #### ERICA Tam ([id number]) [facility] ([facility]) [address] [place] [address] 80093 Calcium [Mass/Vol] 8.4 mg/dL Low 8.6-10.6 [facility] Comment on above: Performed By: #### 5 8077-9 #### ERICA Tam ([id number]) [facility] ([facility]) [address] [place] [address] 74109 Chloride [Moles/Vol] 105 mmol/L Normal 98-107 [facility] Comment on above: Performed By: #### 5 8077-9 #### ERICA Tam ([id number]) [facility] ([facility]) [address] [place] [address] CO2 [Moles/Vol] 24 mmol/L Normal 21-32 [facility] Comment on above: Performed By: #### 5 8077-9 #### ERICA MCDONALD L ([id number]) [facility] ([facility]) [address] [place] [address] Creatinine [Mass/Vol] 1.72 mg/dL High 0.50-1.30 [facility] Comment on above: Performed By: #### 5 8077-9 #### ERICA Tam ([id number]) [facility] ([facility]) [address] [place] [address] 77737 Glomerular filtration rate/1.73 sq M.predicted 42 mL/min/1.73m*2 Low >60 [facility] Comment on above: Result Comment: Calc ulations of estimated GFR are performed using the 2020 CKD-EPI Study Refit equation without the race variable for the IDMS-Traceable creatinine methods. https://jasn.asnjournals.org/content/early//ASN.2020 238812 Performed By: #### 5 8077-9 #### ERICA Tam ([id number]) [facility] ([facility]) [address] [place] [address] Glucose [Mass/Vol] 184 mg/dL High 74-99 [facility] Comment on above: Performed By: #### 5 8077-9 #### ERICA Tam ([id number]) [facility] ([facility]) [address] [place] [address] Phosphate [Mass/Vol] 3.9 mg/dL Normal 2.5-4.9 [facility] Comment on above: Result Comment: The performance characteristics of phosphorus testing in heparinized plasma have been validated by the individual laboratory site where testing is performed. Testing on heparinized plasma is not approved by the FDA; however, such approval is not necessary. Performed By: #### 5 8077-9 #### ERICA Tam ([id number]) [facility] ([facility]) [address] [place] [address] 99755 Potassium [Moles/Vol] 4.1 mmol/L Normal 3.5-5.3 [facility] Comment on above: Performed By: #### 5 8077-9 #### ERICA MCDONALD L ([id number]) [facility] ([facility]) [address] [place] [address] 35525 Sodium [Moles/Vol] 137 mmol/L Normal 136-145 [facility] Comment on above: Performed By: #### 5 8077-9 #### ERICA MCDONALD L ([id number]) [facility] ([facility]) [address] [place] [address] 49560 Urea nitrogen [Mass/Vol] 38 mg/dL [facility] 6-23 [facility] Comment on above: Performed By: #### 5 8077-9 #### ERICA Tam ([id number]) [facility] ([facility]) [address] [place] [address] 49465 Activated clotting timeon ACT Coag (Bld) [address] Comment on above: Result Comment: Targ et ACT range will vary based on the patient population, clinical status, and surgical intervention occurring. Performed By: #### 5 8077-9 #### ERICA Tam ([id number]) [facility] ([facility]) [address] [place] [address] 08349 ACT Coag (Bld) [address] Comment on above: Result Comment: Targ et ACT range will vary based on the patient population, clinical status, and surgical intervention occurring. Performed By: #### 5 8077-9 #### ERICA MCDONALD L ([id number]) [facility] ([facility]) [address] [place] [address] 56545 ACT Coag (Bld) [address] Comment on above: Result Comment: Targ et ACT range will vary based on the patient population, clinical status, and surgical intervention occurring. Performed By: #### 5 8077-9 #### ERICA Tam ([id number]) [facility] ([facility]) [address] [place] [address] 55517 CARDIAC CATHETERIZATION PROC Tevin 10-23-2023 CARDIAC CATHETERIZATION PROCEDURE [facility], [employer], [address] [place] [address] 35711 Cardiovascular Catheterization Report Patient Name: ITALIA ALLEN Performing Physician: [id number] Wiley MD Study Date: 10/23/2023 Verifying Physician: [id number] Wiley MD MRN/PID: [id number] [employer]cher[employer]: Ordering Provider: [id number] INDERJIT MICHELLE Date of /Age: 6 1955 / 68 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 Heart failure. Recent myocardial infarction. Recent ID. Medical History: Stress test performed: No. CTA performed: No. [facility] accessed: No. LVEF Assessed: Yes. LVEF [...] worsening dyspnea. He was subsequently transferred to [facility] for further workup. 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 Transthoracic echocardiogram demonstrated an LVEF of 45 to 50%. He was then transferred to [facility] for CABG evaluation. Sadly, his about a [...] was calcified. 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 Coronary Interventions: After infiltration with 2% Lidocaine, the right was cannulated with a modified Seldinger technique with ultrasound guidance. Subsequently a 6 Tunisian sheath was placed antegrade in the right. A 6 Tunisian EBU 3.5 guide catheter was advanced over [...] rodrigo. Post-stent intravascular ultrasound assessment with the [place] [facility] catheter was performed. IVUS demonstrated an [...] 4 pa (more content not included)... Normal [facility] CBC panel Auto (Bld)on 10-22 Erythrocyte distribution width (RBC) [Ratio] 14.6 % High 11.5 - 14.5 % [facility] Hematocrit (Bld) [Volume fraction] 37.2 % Low 41.0 - 52.0 % [facility] Hemoglobin (Bld) [Mass/Vol] 11.2 g/dL Low 13.5 - 17.5 g/dL [facility] Interpretation and review of laboratory results Abnormal [facility] MCH (RBC) [Entitic mass] 27.9 pg 26.0 - 34.0 pg [facility] MCHC (RBC) [Mass/Vol] 30.1 g/dL Low 32.0 - 36.0 g/dL [facility] MCV (RBC) [Entitic vol] 93 fL 80 - 100 fL [facility] Nucleated RBC/100 WBC (Bld) [Ratio] 0.0 % [facility] Platelets (Bld) [#/Vol] 334 10*3/uL [facility] RBC (Bld) [#/Vol] 4.01 10*6/uL Low [facility] WBC (Bld) [#/Vol] 9.6 10*3/uL [facility] Erythrocyte distribution width (RBC) [Ratio] 14.6 % High 11.5-14.5 [facility] Comment on above: Performed By: #### 7 77-3 #### ERICA Tam ([id number]) [facility] ([facility]) [address] [place] [address] Hematocrit (Bld) [Volume fraction] 37.2 % Low 41.0-52.0 [facility] Comment on above: Performed By: #### 7 77-3 #### ERICA Tam ([id number]) [facility] ([facility]) [address] [place] [address] 28012 Hemoglobin (Bld) [Mass/Vol] 11.2 g/dL Low 13.5-17.5 [facility] Comment on above: Performed By: #### 7 77-3 #### ERICA Tam ([id number]) [facility] ([facility]) [address] [place] [address] 77774 MCH (RBC) [Entitic mass] 27.9 pg Normal 26.0-34.0 [facility] Comment on above: Performed By: #### 7 77-3 #### ERICA Tam ([id number]) [facility] ([facility]) [address] [place] [address] 45476 MCHC (RBC) [Mass/Vol] 30.1 g/dL Low 32.0-36.0 [facility] Comment on above: Performed By: #### 7 77-3 #### ERICA Tam ([id number]) [facility] ([facility]) [address] [place] [address] 86741 MCV (RBC) [Entitic vol] 93 fL Normal 80-100 [facility] Comment on above: Performed By: #### 7 77-3 #### ERICA Tam ([id number]) [facility] ([facility]) [address] [place] [address] 86999 Nucleated RBC/100 WBC (Bld) [Ratio] 0.0 /100 WBCs Normal 0.0-0.0 [facility] Comment on above: Performed By: #### 7 77-3 #### ERICA Tam ([id number]) [facility] ([facility]) [address] [place] [address] 14171 Platelets (Bld) [#/Vol] 334 x10*3/uL Normal 150-450 [facility] Comment on above: Performed By: #### 7 77-3 #### ERICA Tam ([id number]) [facility] ([facility]) [address] [place] [address] 43710 RBC (Bld) [#/Vol] 4.01 x10*6/uL Low 4.50-5.90 [facility] Comment on above: Performed By: #### 7 77-3 #### ERICA Tam ([id number]) [facility] ([facility]) [address] [place] [address] 59001 WBC (Bld) [#/Vol] 9.6 x10*3/uL Normal 4.4-11.3 [facility] Comment on above: Performed By: #### 7 77-3 #### ERICA Tam ([id number]) [facility] ([facility]) [address] [place] [address] 62530 Glucose Test strip manual (B ld) [Mass/Vol]on 10-23-2023 Glucose [Mass/Vol] 238 mg/dL High 74 - 99 mg/dL [facility] Interpretation and review of laboratory results Abnormal [facility] Glucose [Mass/Vol] 238 mg/dL High 74-99 [facility] Comment on above: Performed By: #### 5 8077-9 #### ERICA Tam ([id number]) [facility] ([facility]) [address] [place] [address] 62232 Glucose [Mass/Vol] 96 mg/dL 74 - 99 mg/dL [facility] Interpretation and review of laboratory results Normal [facility] Glucose [Mass/Vol] 96 mg/dL Normal 74-99 [facility] Comment on above: Performed By: #### 7 77-3 #### ERICA Tam ([id number]) [facility] ([facility]) [address] [place] [address] 46568 Glucose [Mass/Vol] 101 mg/dL High 74 - 99 mg/dL [facility] Interpretation and review of laboratory results Abnormal [facility] Glucose [Mass/Vol] 101 mg/dL High 74-99 [facility] Comment on above: Performed By: #### 7 77-3 #### ERICA Tam ([id number]) [facility] ([facility]) [address] [place] [address] Glucose [Mass/Vol] 96 mg/dL 74 - 99 mg/dL [facility] Interpretation and review of laboratory results Normal [facility] Glucose [Mass/Vol] 96 mg/dL Normal 74-99 [facility] Comment on above: Performed By: #### 7 77-3 #### ERICA Tam ([id number]) [facility] ([facility]) [address] [place] [address] Renal function 2000 panelon 10-23-2023 Albumin BCP dye [Mass/Vol] 3.2 g/dL Low 3.4 - 5.0 g/dL [facility] Anion gap [Moles/Vol] 13 mmol/L 10 - 2 0 mmol/L [facility] Calcium [Mass/Vol] 8.5 mg/dL Low 8.6 - 10. 6 mg/dL [facility] Chloride [Moles/Vol] 103 mmol/L 98 - 10 7 mmol/L [facility] CO2 [Moles/Vol] 25 mmol/L 21 - 32 mmol/L [facility] Creatinine [Mass/Vol] 1.77 mg/dL High 0.50 - 1.30 mg/dL [facility] GFR/1.73 sq M.predicted among non-blacks MDRD (S/P/Bld) [Vol rate/Area] 41 mL/min/{1.73_m2} Low - PINF [facility] Comment on above: Calculations of mercedez mated GFR are performed using the 2020 CKD-EPI Study Refit equation without the race variable for the IDMS-Traceable creatinine methods. https://jasn.asnjournals.org/content/early//ASN.2020 107455 Glucose [Mass/Vol] 99 mg/dL 74 - 99 mg/dL [facility] Interpretation and review of laboratory results Abnormal [facility] Phosphate [Mass/Vol] 4.9 mg/dL 2.5 - 4 .9 mg/dL [facility] Comment on above: MODERATE HEMOLYSIS D ETECTED. The result may be falsely elevated due to hemolysis or other interferents. Clinical correlation is recommended. Repeat testing may be considered. The performance characteristics of phosphorus testing in heparinized plasma have been validated by the individual laboratory site where testing is performed. Testing on heparinized plasma is not approved by the FDA; however, such approval is not necessary. Potassium [Moles/Vol] 5.2 mmol/L 3.5 - 5.3 mmol/L [facility] Comment on above: MODERATE HEMOLYSIS D ETECTED. The result may be falsely elevated due to hemolysis or other interferents. Clinical correlation is recommended. Repeat testing may be considered. Sodium [Moles/Vol] 136 mmol/L 136 - 145 mmol/L [facility] Urea nitrogen [Mass/Vol] 39 mg/dL High 6 - 23 mg/dL [facility] Albumin BCP dye [Mass/Vol] 3.2 g/dL Low 3.4-5.0 [facility] Comment on above: Performed By: #### 7 77-3 #### ERICA MCDONALD L ([id number]) [facility] ([facility]) [address] [place] [address] 01505 Anion gap [Moles/Vol] 13 mmol/L Normal 10-20 [facility] Comment on above: Performed By: #### 7 77-3 #### ERICA HIGGINSER L ([id number]) [facility] ([facility]) [address] [place] [address] 79673 Calcium [Mass/Vol] 8.5 mg/dL Low 8.6-10.6 [facility] Comment on above: Performed By: #### 7 77-3 #### ERICA RESTREPOMOTZER L ([id number]) [facility] ([facility]) [address] [place] [address] 22047 Chloride [Moles/Vol] 103 mmol/L Normal 98-107 [facility] Comment on above: Performed By: #### 7 77-3 #### ERICA RESTREPOMOTZER L ([id number]) [facility] ([facility]) [address] [place] [address] CO2 [Moles/Vol] 25 mmol/L Normal 21-32 [facility] [facility] Comment on above: Performed By: #### 7 77-3 #### ERICA Tam ([id number]) [facility] ([facility]) [address] [place] [address] Creatinine [Mass/Vol] 1.77 mg/dL High 0.50-1.30 [facility] Comment on above: Performed By: #### 7 77-3 #### ERICA Tam ([id number]) [facility] ([facility]) [address] [place] [address] Glomerular filtration rate/1.73 sq M.predicted 41 mL/min/1.73m*2 Low >60 [facility] Comment on above: Result Comment: Calc ulations of estimated GFR are performed using the 2020 CKD-EPI Study Refit equation without the race variable for the IDMS-Traceable creatinine methods. https://jasn.asnjournals.org/content/early//ASN.2020 189092 Performed By: #### 7 77-3 #### ERICA Tam ([id number]) [facility] ([facility]) [address] [place] [address] Glucose [Mass/Vol] 99 mg/dL Normal 74-99 [facility] Comment on above: Performed By: #### 7 77-3 #### ERICA Tam ([id number]) [facility] ([facility]) [address] [place] [address] Phosphate [Mass/Vol] 4.9 mg/dL Normal 2.5-4.9 [facility] Comment on above: Result Comment: MODE [...] #### 7 77-3 #### ERICA MCDONALD L ([id number]) [facility] ([facility]) [address] [place] [address]228 Potassium [Moles/Vol] 5.2 mmol/L Normal 3.5-5.3 [facility] Comment on above: Result Comment: MODE RATE HEMOLYSIS DETECTED. The result may be falsely elevated due to hemolysis or other interferents. Clinical correlation is recommended. Repeat testing may be considered. Performed By: #### 7 77-3 #### ERICA MCDONALD L ([id number]) [facility] ([facility]) [address] [place] [address]17 Sodium [Moles/Vol] 136 mmol/L Normal 136-145 [facility] Comment on above: Performed By: #### 7 77-3 #### ERICA RESTREPOMOMARLENY L ([id number]) [facility] ([facility]) [address] [place] [address] 17101 Urea nitrogen [Mass/Vol] 39 mg/dL High 6-23 [facility] Comment on above: Performed By: #### 7 77-3 #### ERICA MCDONALD L ([id number]) [facility] ([facility]) [address] [place] [address] 35942 Glucose Test strip manual (B ld) [Mass/Vol]on 10-22-2023 Glucose [Mass/Vol] 246 mg/dL High 74 - 99 mg/dL [facility] Interpretation and review of laboratory results Abnormal [facility] Glucose [Mass/Vol] 246 mg/dL High 74-99 [facility] Comment on above: Performed By: #### 7 77-3 #### ERICA MCDONALD L ([id number]) [facility] ([facility]) [address] [place] [address] 69609 Glucose [Mass/Vol] 186 mg/dL High 74 - 99 mg/dL [facility] Interpretation and review of laboratory results Abnormal [facility] Glucose [Mass/Vol] 186 mg/dL High 74-99 [facility] Comment on above: Performed By: #### 7 77-3 #### ERICA Tam ([id number]) [facility] ([facility]) [address] [place] [address] 58479 Glucose [Mass/Vol] 213 mg/dL High 74 - 99 mg/dL [facility] Interpretation and review of laboratory results Abnormal [facility] Glucose [Mass/Vol] 213 mg/dL High 74-99 [facility] Comment on above: Performed By: #### 7 77-3 #### ERICA Tam ([id number]) [facility] ([facility]) [address] [place] [address] 77636 Glucose [Mass/Vol] 143 mg/dL High 74 - 99 mg/dL [facility] Interpretation and review of laboratory results Abnormal [facility] Glucose [Mass/Vol] 143 mg/dL High 74-99 [facility] Comment on above: Performed By: #### 7 77-3 #### ERICA Tam ([id number]) [facility] ([facility]) [address] [place] [address] 92059 Renal function 2000 panelon 10-22-2023 Albumin BCP dye [Mass/Vol] 3.3 g/dL Low 3.4 - 5.0 g/dL [facility] Anion gap [Moles/Vol] 14 mmol/L 10 - 2 0 mmol/L [facility] Calcium [Mass/Vol] 8.8 mg/dL 8.6 - 10. 6 mg/dL [facility] Chloride [Moles/Vol] 101 mmol/L 98 - 10 7 mmol/L [facility] CO2 [Moles/Vol] 23 mmol/L 21 - 32 mmol/L [facility] Creatinine [Mass/Vol] 1.75 mg/dL High 0.50 - 1.30 mg/dL [facility] GFR/1.73 sq M.predicted among non-blacks MDRD (S/P/Bld) [Vol rate/Area] 42 mL/min/{1.73_m2} Low - PINF [facility] Comment on above: Calculations of mer[place]ez mated GFR are performed using the 2020 CKD-EPI Study Refit equation without the race variable for the IDMS-Traceable creatinine methods. https://jasn.asnjournals.org/content//ASN.2020 513207 Glucose [Mass/Vol] 214 mg/dL High 74 - 99 mg/dL [facility] Interpretation and review of laboratory results Abnormal [facility] Phosphate [Mass/Vol] 4.3 mg/dL 2.5 - 4 .9 mg/dL [facility] Comment on above: The performance cecilia acteristics of phosphorus testing in heparinized plasma have been validated by the individual laboratory site where testing is performed. Testing on heparinized plasma is not approved by the FDA; however, such approval is not necessary. Potassium [Moles/Vol] 4.1 mmol/L 3.5 - 5.3 mmol/L [facility] Sodium [Moles/Vol] 134 mmol/L Low 136 - 145 mmol/L [facility] Urea nitrogen [Mass/Vol] 38 mg/dL High 6 - 23 mg/dL [facility] Albumin BCP dye [Mass/Vol] 3.3 g/dL Low 3.4-5.0 [facility] Comment on above: Performed By: #### 7 77-3 #### ERICA Tam ([id number]) [facility] ([facility]) [address] [place] [address] Anion gap [Moles/Vol] 14 mmol/L Normal 10-20 [facility] Comment on above: Performed By: #### 7 77-3 #### ERICA Tam ([id number]) [facility] ([facility]) [address] [place] [address] Calcium [Mass/Vol] 8.8 mg/dL Normal 8.6-10.6 [facility] Comment on above: Performed By: #### 7 77-3 #### ERICA Tam ([id number]) [facility] ([facility]) [address] [place] [address] Chloride [Moles/Vol] 101 mmol/L Normal 98-107 [facility] Comment on above: Performed By: #### 7 77-3 #### ERICA MCDONALD L ([id number]) [facility] ([facility]) [address] [place] [address] CO2 [Moles/Vol] 23 mmol/L Normal 21-32 [facility] Comment on above: Performed By: #### 7 77-3 #### ERICA MCDONALD L ([id number]) [facility] ([facility]) [address] [place] [address] Creatinine [Mass/Vol] 1.75 mg/dL High 0.50-1.30 [facility] Comment on above: Performed By: #### 7 77-3 #### ERICA MCDONALD L ([id number]) [facility] ([facility]) [address] [place] [address] 57863 Glomerular filtration rate/1.73 sq M.predicted 42 mL/min/1.73m*2 Low >60 [facility] Comment on above: Result Comment: Calc ulations of estimated GFR are performed using the 2020 CKD-EPI Study Refit equation without the race variable for the IDMS-Traceable creatinine methods. https://jasn.asnjournals.org/content/early//ASN.2020 587350 Performed By: #### 7 77-3 #### ERICA MCDONALD L ([id number]) [facility] ([facility]) [address] [place] [address] 48520 Glucose [Mass/Vol] 214 mg/dL High 74-99 [facility] Comment on above: Performed By: #### 7 77-3 #### ERICA MCDONALD L ([id number]) [facility] ([facility]) [address] [place] [address] 13549 Phosphate [Mass/Vol] 4.3 mg/dL Normal 2.5-4.9 [facility] Comment on above: Result Comment: The performance characteristics of phosphorus testing in heparinized plasma have been validated by the individual laboratory site where testing is performed. Testing on heparinized plasma is not approved by the FDA; however, such approval is not necessary. Performed By: #### 7 77-3 #### ERICA Tam ([id number]) [facility] ([facility]) [address] [place] [address] 41760 Potassium [Moles/Vol] 4.1 mmol/L Normal 3.5-5.3 [facility] Comment on above: Performed By: #### 7 77-3 #### ERICA MCDONALD L ([id number]) [facility] ([facility]) [address] [place] [address] 97725 Sodium [Moles/Vol] 134 mmol/L Low 136-145 [facility] Comment on above: Performed By: #### 7 77-3 #### ERICA MCDONALD L ([id number]) [facility] ([facility]) [address] [place] [address] 52210 Urea nitrogen [Mass/Vol] 38 mg/dL High 6-23 [facility] Comment on above: Performed By: #### 7 77-3 #### ERICA MCDONALD L ([id number]) [facility] ([facility]) [address] [place] [address] 73939 Glucose Test strip manual (B ld) [Mass/Vol]on 10-21-2023 Glucose [Mass/Vol] 189 mg/dL High 74 - 99 mg/dL [facility] Interpretation and review of laboratory results Abnormal [facility] Glucose [Mass/Vol] 189 mg/dL High 74-99 [facility] Comment on above: Performed By: #### 3 274-8 #### ERICA MCDONALD L ([id number]) [facility] ([facility]) [address] [place] [address] 13486 Glucose [Mass/Vol] 258 mg/dL High 74 - 99 mg/dL [facility] Interpretation and review of laboratory results Abnormal [facility] Glucose [Mass/Vol] 258 mg/dL High 74-99 [facility] Comment on above: Performed By: #### 3 274-8 #### ERICA MCDONALD L ([id number]) [facility] ([facility]) [address] [place] [address] 54737 Glucose [Mass/Vol] 392 mg/dL High 74 - 99 mg/dL [facility] Interpretation and review of laboratory results Abnormal [facility] Glucose [Mass/Vol] 392 mg/dL High 74-99 [facility] Comment on above: Performed By: #### 3 274-8 #### ERICA Tam ([id number]) [facility] ([facility]) [address] [place] [address] 01018 Glucose [Mass/Vol] 254 mg/dL High 74 - 99 mg/dL [facility] Interpretation and review of laboratory results Abnormal [facility] Glucose [Mass/Vol] 254 mg/dL High 74-99 [facility] Comment on above: Performed By: #### 3 274-8 #### ERICA Tam ([id number]) [facility] ([facility]) [address] [place] [address] 44017 Glucose [Mass/Vol] 296 mg/dL High 74 - 99 mg/dL [facility] Interpretation and review of laboratory results Abnormal [facility] Glucose [Mass/Vol] 296 mg/dL High 74-99 [facility] Comment on above: Performed By: #### 3 274-8 #### ERICA Tam ([id number]) [facility] ([facility]) [address] [place] [address] 45224 CBC panel Auto (Bld)on 10-19 Erythrocyte distribution width (RBC) [Ratio] 14.6 % High 11.5 - 14.5 % [facility] Hematocrit (Bld) [Volume fraction] 34.7 % Low 41.0 - 52.0 % [facility] Hemoglobin (Bld) [Mass/Vol] 11.2 g/dL Low 13.5 - 17.5 g/dL [facility] Interpretation and review of laboratory results Abnormal [facility] MCH (RBC) [Entitic mass] 28.9 pg 26.0 - 34.0 pg [facility] MCHC (RBC) [Mass/Vol] 32.3 g/dL 32.0 - 36.0 g/dL [facility] MCV (RBC) [Entitic vol] 89 fL 80 - 100 fL [facility] Nucleated RBC/100 WBC (Bld) [Ratio] 0.0 % [facility] Platelets (Bld) [#/Vol] 293 10*3/uL [facility] RBC (Bld) [#/Vol] 3.88 10*6/uL Low [facility] WBC (Bld) [#/Vol] 8.6 10*3/uL [facility] Erythrocyte distribution width (RBC) [Ratio] 14.6 % High 11.5-14.5 [facility] Comment on above: Performed By: #### 3 274-8 #### ERICA Tam ([id number]) [facility] ([facility]) [address] [place] [address] 12030 Hematocrit (Bld) [Volume fraction] 34.7 % Low 41.0-52.0 [facility] Comment on above: Performed By: #### 3 274-8 #### ERICA Tam ([id number]) [facility] ([facility]) [address] [place] [address] 57717 Hemoglobin (Bld) [Mass/Vol] 11.2 g/dL Low 13.5-17.5 [facility] Comment on above: Performed By: #### 3 274-8 #### ERICA Tam ([id number]) [facility] ([facility]) [address] [place] [address] 65560 MCH (RBC) [Entitic mass] 28.9 pg Normal 26.0-34.0 [facility] Comment on above: Performed By: #### 3 274-8 #### ERICA Tam ([id number]) [facility] ([facility]) [address] [place] [address] 97164 MCHC (RBC) [Mass/Vol] 32.3 g/dL Normal 32.0-36.0 [facility] Comment on above: Performed By: #### 3 274-8 #### ERICA Tam ([id number]) [facility] ([facility]) [address] [place] [address] 96163 MCV (RBC) [Entitic vol] 89 fL Normal 80-100 [facility] Comment on above: Performed By: #### 3 274-8 #### ERICA Tam ([id number]) [facility] ([facility]) [address] [place] [address] 15714 Nucleated RBC/100 WBC (Bld) [Ratio] 0.0 /100 WBCs Normal 0.0-0.0 [facility] Comment on above: Performed By: #### 3 274-8 #### ERICA Tam ([id number]) [facility] ([facility]) [address] [place] [address] 89897 Platelets (Bld) [#/Vol] 293 x10*3/uL Normal 150-450 [facility] Comment on above: Performed By: #### 3 274-8 #### ERICA Tam ([id number]) [facility] ([facility]) [address] [place] [address] 42660 RBC (Bld) [#/Vol] 3.88 x10*6/uL Low 4.50-5.90 [facility] Comment on above: Performed By: #### 3 274-8 #### ERICA Tam ([id number]) [facility] ([facility]) [address] [place] [address] 08983 WBC (Bld) [#/Vol] 8.6 x10*3/uL Normal 4.4-11.3 [facility] Comment on above: Performed By: #### 3 274-8 #### ERICA Tam ([id number]) [facility] ([facility]) [address] [place] [address] 29463 Glucose Test strip manual (B ld) [Mass/Vol]on 10-20-2023 Glucose [Mass/Vol] 298 mg/dL High 74 - 99 mg/dL [facility] Interpretation and review of laboratory results Abnormal [facility] Glucose [Mass/Vol] 298 mg/dL High 74-99 [facility] Comment on above: Performed By: #### 3 274-8 #### ERICA Tam ([id number]) [facility] ([facility]) [address] [place] [address] 52880 Glucose [Mass/Vol] 298 mg/dL High 74 - 99 mg/dL [facility] Interpretation and review of laboratory results Abnormal [facility] Glucose [Mass/Vol] 298 mg/dL High 74-99 [facility] Comment on above: Performed By: #### 3 274-8 #### ERICA Tam ([id number]) [facility] ([facility]) [address] [place] [address] 19910 Glucose [Mass/Vol] 294 mg/dL High 74 - 99 mg/dL [facility] Interpretation and review of laboratory results Abnormal [facility] Glucose [Mass/Vol] 294 mg/dL High 74-99 [facility] Comment on above: Performed By: #### T HYDS #### ERICA Tam ([id number]) [facility] ([facility]) [address] [place] [address] 33274 Glucose [Mass/Vol] 173 mg/dL High 74 - 99 mg/dL [facility] Interpretation and review of laboratory results Abnormal [facility] Glucose [Mass/Vol] 173 mg/dL High 74-99 [facility] Comment on above: Performed By: #### T HYDS #### ERICA Tam ([id number]) [facility] ([facility]) [address] [place] [address] 63910 Glucose [Mass/Vol] 146 mg/dL High 74 - 99 mg/dL [facility] Interpretation and review of laboratory results Abnormal [facility] Glucose [Mass/Vol] 146 mg/dL High 74-99 [facility] Comment on above: Performed By: #### T HYDS #### ERICA Tam ([id number]) [facility] ([facility]) [address] [place] [address] Magnesiumon 10-20-2023 Magnesium [Mass/Vol] 1.74 mg/dL 1.60 - 2.40 mg/dL [facility] Magnesium [Mass/Vol] 1.74 mg/dL Normal 1.60-2.40 [facility] Comment on above: Performed By: #### 3 274-8 #### ERICA Tam ([id number]) [facility] ([facility]) [address] [place] [address] Magnesium [Mass/Vol]on 10-19 Interpretation and review of laboratory results Normal [facility] No Panel Informationon 10-19 [facility] Renal function 2000 panelon 10-20-2023 Albumin BCP dye [Mass/Vol] 3.3 g/dL Low 3.4 - 5.0 g/dL [facility] Anion gap [Moles/Vol] 11 mmol/L 10 - 2 0 mmol/L [facility] Calcium [Mass/Vol] 8.5 mg/dL Low 8.6 - 10. 6 mg/dL [facility] Chloride [Moles/Vol] 102 mmol/L 98 - 10 7 mmol/L [facility] CO2 [Moles/Vol] 25 mmol/L 21 - 32 mmol/L [facility] Creatinine [Mass/Vol] 1.89 mg/dL High 0.50 - 1.30 mg/dL [facility] GFR/1.73 sq M.predicted among non-blacks MDRD (S/P/Bld) [Vol rate/Area] 38 mL/min/{1.73_m2} Low - PINF [facility] Comment on above: Calculations of mer[place] mated GFR are performed using the 2020 CKD-EPI Study Refit equation without the race variable for the IDMS-Traceable creatinine methods. https://jasn.asnjournals.org/content/early/ASN.2020 033829 Glucose [Mass/Vol] 323 mg/dL High 74 - 99 mg/dL [facility] Interpretation and review of laboratory results Abnormal [facility] Phosphate [Mass/Vol] 3.0 mg/dL 2.5 - 4 .9 mg/dL [facility] Comment on above: The performance cecilia acteristics of phosphorus testing in heparinized plasma have been validated by the individual laboratory site where testing is performed. Testing on heparinized plasma is not approved by the FDA; however, such approval is not necessary. Potassium [Moles/Vol] 3.9 mmol/L 3.5 - 5.3 mmol/L [facility] Sodium [Moles/Vol] 134 mmol/L Low 136 - 145 mmol/L [facility] Urea nitrogen [Mass/Vol] 31 mg/dL High 6 - 23 mg/dL [facility] Albumin BCP dye [Mass/Vol] 3.3 g/dL Low 3.4-5.0 [facility] Comment on above: Performed By: #### 3 274-8 #### ERICA Tam ([id number]) [facility] ([facility]) [address] [place] [address] 64644 Anion gap [Moles/Vol] 11 mmol/L Normal 10-20 [facility] Comment on above: Performed By: #### 3 274-8 #### ERICA MCDONALD L ([id number]) [facility] ([facility]) [address] [place] [address] 87400 Calcium [Mass/Vol] 8.5 mg/dL Low 8.6-10.6 [facility] Comment on above: Performed By: #### 3 274-8 #### ERICA MCDONALD L ([id number]) [facility] ([facility]) [address] [place] [address] 29868 Chloride [Moles/Vol] 102 mmol/L Normal 98-107 [facility] Comment on above: Performed By: #### 3 274-8 #### ERICA MCDONALD L ([id number]) [facility] ([facility]) [address] [place] [address] 40346 CO2 [Moles/Vol] 25 mmol/L Normal 21-32 [facility] Comment on above: Performed By: #### 3 274-8 #### ERICA MCDONALD L ([id number]) [facility] ([facility]) [address] [place] [address] Creatinine [Mass/Vol] 1.89 mg/dL High 0.50-1.30 [facility] Comment on above: Performed By: #### 3 274-8 #### ERICA Tam ([id number]) [facility] ([facility]) [address] [place] [address] Glomerular filtration rate/1.73 sq M.predicted 38 mL/min/1.73m*2 Low >60 [facility] Comment on above: Result Comment: Calc ulations of estimated GFR are performed using the 2020 CKD-EPI Study Refit equation without the race variable for the IDMS-Traceable creatinine methods. https://jasn.asnjournals.org/content/early//ASN.2020 521356 Performed By: #### 3 274-8 #### ERICA Tam ([id number]) [facility] ([facility]) [address] [place] [address] 61782 Glucose [Mass/Vol] 323 mg/dL High 74-99 [facility] Comment on above: Performed By: #### 3 274-8 #### ERICA Tam ([id number]) [facility] ([facility]) [address] [place] [address] 81397 Phosphate [Mass/Vol] 3.0 mg/dL Normal 2.5-4.9 [facility] Comment on above: Result Comment: The performance characteristics of phosphorus testing in heparinized plasma have been validated by the individual laboratory site where testing is performed. Testing on heparinized plasma is not approved by the FDA; however, such approval is not necessary. Performed By: #### 3 274-8 #### ERICA Tam ([id number]) [facility] ([facility]) [address] [place] [address] Potassium [Moles/Vol] 3.9 mmol/L Normal 3.5-5.3 [facility] Comment on above: Performed By: #### 3 274-8 #### ERICA Tam ([id number]) [facility] ([facility]) [address] [place] [address] 62681 Sodium [Moles/Vol] 134 mmol/L Low 136-145 [facility] Comment on above: Performed By: #### 3 274-8 #### ERICA Tam ([id number]) [facility] ([facility]) [address] [place] [address] 06495 Urea nitrogen [Mass/Vol] 31 mg/dL High 6-23 [facility] Comment on above: Performed By: #### 3 274-8 #### ERICA Tam ([id number]) [facility] ([facility]) [address] [place] [address] 78692 Glucose Test strip manual (B ld) [Mass/Vol]on 10-19-2023 Glucose [Mass/Vol] 355 mg/dL High 74 - 99 mg/dL [facility] Interpretation and review of laboratory results Abnormal [facility] Glucose [Mass/Vol] 355 mg/dL High 74-99 [facility] Comment on above: Performed By: #### T HYDS #### ERICA Tam ([id number]) [facility] ([facility]) [address] [place] [address] 57713 Glucose [Mass/Vol] 249 mg/dL High 74 - 99 mg/dL [facility] Interpretation and review of laboratory results Abnormal [facility] Glucose [Mass/Vol] 249 mg/dL High 74-99 [facility] Comment on above: Performed By: #### T HYDS #### ERICA Tam ([id number]) [facility] ([facility]) [address] [place] [address] 99734 Glucose [Mass/Vol] 274 mg/dL High 74 - 99 mg/dL [facility] Interpretation and review of laboratory results Abnormal [facility] Glucose [Mass/Vol] 274 mg/dL High 74-99 [facility] Comment on above: Performed By: #### T HYDS #### ERICA Tam ([id number]) [facility] ([facility]) [address] [place] [address] Glucose [Mass/Vol] 129 mg/dL High 74 - 99 mg/dL [facility] Interpretation and review of laboratory results Abnormal [facility] Glucose [Mass/Vol] 129 mg/dL High 74-99 [facility] Comment on above: Performed By: #### T HYDS #### ERICA Tam ([id number]) [facility] ([facility]) [address] [place] [address] 61492 Glucose [Mass/Vol] 121 mg/dL High 74 - 99 mg/dL [facility] Interpretation and review of laboratory results Abnormal [facility] Glucose [Mass/Vol] 121 mg/dL High 74-99 [facility] Comment on above: Performed By: #### T HYDS #### ERICA Tam ([id number]) [facility] ([facility]) [address] [place] [address] 95188 CBC panel Auto (Bld)on 10-17 Erythrocyte distribution width (RBC) [Ratio] 14.6 % High 11.5 - 14.5 % [facility] Hematocrit (Bld) [Volume fraction] 34.3 % Low 41.0 - 52.0 % [facility] Hemoglobin (Bld) [Mass/Vol] 10.7 g/dL Low 13.5 - 17.5 g/dL [facility] Interpretation and review of laboratory results Abnormal [facility] MCH (RBC) [Entitic mass] 28.7 pg 26.0 - 34.0 pg [facility] MCHC (RBC) [Mass/Vol] 31.2 g/dL Low 32.0 - 36.0 g/dL [facility] MCV (RBC) [Entitic vol] 92 fL 80 - 100 fL [facility] Nucleated RBC/100 WBC (Bld) [Ratio] 0.0 % [facility] Platelets (Bld) [#/Vol] 295 10*3/uL [facility] RBC (Bld) [#/Vol] 3.73 10*6/uL Low [facility] WBC (Bld) [#/Vol] 7.2 10*3/uL [facility] Erythrocyte distribution width (RBC) [Ratio] 14.6 % High 11.5-14.5 [facility] Comment on above: Performed By: #### L IPIN #### ERICA Tam ([id number]) [facility] ([facility]) [address] [place] [address] 90089 Hematocrit (Bld) [Volume fraction] 34.3 % Low 41.0-52.0 [facility] Comment on above: Performed By: #### L IPIN #### ERICA Tam ([id number]) [facility] ([facility]) [address] [place] [address] 54814 Hemoglobin (Bld) [Mass/Vol] 10.7 g/dL Low 13.5-17.5 [facility] Comment on above: Performed By: #### L IPIN #### ERICA Tam ([id number]) [facility] ([facility]) [address] [place] [address] 57060 MCH (RBC) [Entitic mass] 28.7 pg Normal 26.0-34.0 [facility] Comment on above: Performed By: #### L IPIN #### ERICA Tam ([id number]) [facility] ([facility]) [address] [place] [address] 36853 MCHC (RBC) [Mass/Vol] 31.2 g/dL Low 32.0-36.0 [facility] Comment on above: Performed By: #### L IPIN #### ERICA Tam ([id number]) [facility] ([facility]) [address] [place] [address] 16705 MCV (RBC) [Entitic vol] 92 fL Normal 80-100 [facility] Comment on above: Performed By: #### L IPIN #### ERICA Tam ([id number]) [facility] ([facility]) [address] [place] [address] 39372 Nucleated RBC/100 WBC (Bld) [Ratio] 0.0 /100 WBCs Normal 0.0-0.0 [facility] Comment on above: Performed By: #### L IPIN #### ERICA Tam ([id number]) [facility] ([facility]) [id number] [place] [address] 74714 Platelets (Bld) [#/Vol] 295 x10*3/uL Normal 150-450 [facility] Comment on above: Performed By: #### L IPIN #### ERICA Tam ([id number]) [facility] ([facility]) [address] [place] [address] 11741 RBC (Bld) [#/Vol] 3.73 x10*6/uL Low 4.50-5.90 [facility] Comment on above: Performed By: #### L IPIN #### ERICA Tam ([id number]) [facility] ([facility]) [address] [place] [address] 10473 WBC (Bld) [#/Vol] 7.2 x10*3/uL Normal 4.4-11.3 [facility] Comment on above: Performed By: #### L IPIN #### ERICA Tam ([id number]) [facility] ([facility]) [address] [place] [address] 78405 Glucose Test strip manual (B ld) [Mass/Vol]on 10-18-2023 Glucose [Mass/Vol] 169 mg/dL High 74 - 99 mg/dL [facility] Interpretation and review of laboratory results Abnormal [facility] Glucose [Mass/Vol] 169 mg/dL High 74-99 [facility] Comment on above: Performed By: #### T HYDS #### ERICA Tam ([id number]) [facility] ([facility]) [address] [place] [address] 03685 Glucose [Mass/Vol] 238 mg/dL High 74 - 99 mg/dL [facility] Interpretation and review of laboratory results Abnormal [facility] Glucose [Mass/Vol] 238 mg/dL High 74-99 [facility] Comment on above: Performed By: #### L IPIN #### ERICA Tam ([id number]) [facility] ([facility]) [address] [place] [address] 59052 Glucose [Mass/Vol] 251 mg/dL High 74 - 99 mg/dL [facility] Interpretation and review of laboratory results Abnormal [facility] Glucose [Mass/Vol] 251 mg/dL High 74-99 [facility] Comment on above: Performed By: #### L IPIN #### ERICA Tam ([id number]) [facility] ([facility]) [address] [place] [address] 50659 Glucose [Mass/Vol] 191 mg/dL High 74 - 99 mg/dL [facility] Interpretation and review of laboratory results Abnormal [facility] Glucose [Mass/Vol] 191 mg/dL High 74-99 [facility] Comment on above: Performed By: #### L IPIN #### ERICA Tam ([id number]) [facility] ([facility]) [address] [place], [place] [id number] Heparin Assay, UFHon 024 Heparin unfractionated Chromogenic method Qn (PPP) 0.4 See Comment Below for Therapeutic Ranges IU/mL [facility] Heparin unfractionated Chrom ogenic method Qn (PPP)on 10-18-2023 Interpretation and review of laboratory results Normal [facility] The therapeutic reference range for UFH may be either 0.3-0.6 IU/mL or 0.3-0.7 IU/mL based on the clinical setting for anticoagulant therapy and the associated nomogram used. For Heparin dosing guidelines based on clinical scenario and Heparin Assay results, please refer to local Pharmacy and the [facility] Guidelines for Anticoagulation Therapy available on the [facility] intranet at: [email or web address]/Pag es/[place]_ Guidelines_for_Anticoagu .aspx [facility] Heparin.unfractionatedon Heparin unfractionated Chromogenic method Qn (PPP) 0.4 IU/mL Normal See Comment Below for Therapeutic Ranges [facility] Comment on above: Order Comment: When two [...] please refer to local Pharmacy and the [facility] Guidelines for Anticoagulation Therapy available on the [facility] intranet at: [email or web address]://[email or web address]/Pharmacy/Pages/[place] [facility]_Guidelines_for_Anticoagu.aspx Performed By: #### L IPIN #### ERICA Tam ([id number]) [facility] ([facility]) [address] [place] [address] 65191 Magnesiumon 10-18-2023 Magnesium [Mass/Vol] 1.77 mg/dL 1.60 - 2.40 mg/dL [facility] Magnesium [Mass/Vol] 1.77 mg/dL Normal 1.60-2.40 [facility] Comment on above: Performed By: #### L IPIN #### ERICA Tam ([id number]) [facility] ([facility]) [address] [place] [address] 22002 Magnesium [Mass/Vol]on 10-17 Interpretation and review of laboratory results Normal [facility] No Panel Informationon 10-17 [facility] Renal function 2000 panelon 10-18-2023 Albumin BCP dye [Mass/Vol] 3.3 g/dL Low 3.4 - 5.0 g/dL [facility] Anion gap [Moles/Vol] 12 mmol/L 10 - 2 0 mmol/L [facility] Calcium [Mass/Vol] 8.5 mg/dL Low 8.6 - 10. 6 mg/dL [facility] Chloride [Moles/Vol] 103 mmol/L 98 - 10 7 mmol/L [facility] CO2 [Moles/Vol] 26 mmol/L 21 - 32 mmol/L [facility] Creatinine [Mass/Vol] 1.58 mg/dL High 0.50 - 1.30 mg/dL [facility] GFR/1.73 sq M.predicted among non-blacks MDRD (S/P/Bld) [Vol rate/Area] 47 mL/min/{1.73_m2} Low - PINF [facility] Comment on above: Calculations of mercedez mated GFR are performed using the 2020 CKD-EPI Study Refit equation without the race variable for the IDMS-Traceable creatinine methods. https://jasn.asnjournals.org/content/early/ASN.2020 776602 Glucose [Mass/Vol] 220 mg/dL High 74 - 99 mg/dL [facility] Interpretation and review of laboratory results Abnormal [facility] Phosphate [Mass/Vol] 2.8 mg/dL 2.5 - 4 .9 mg/dL [facility] Comment on above: The performance cecilia acteristics of phosphorus testing in heparinized plasma have been validated by the individual laboratory site where testing is performed. Testing on heparinized plasma is not approved by the FDA; however, such approval is not necessary. Potassium [Moles/Vol] 4.1 mmol/L 3.5 - 5.3 mmol/L [facility] Sodium [Moles/Vol] 137 mmol/L 136 - 145 mmol/L [facility] Urea nitrogen [Mass/Vol] 25 mg/dL High 6 - 23 mg/dL [facility] Albumin BCP dye [Mass/Vol] 3.3 g/dL Low 3.4-5.0 [facility] Comment on above: Performed By: #### T HYDS #### ERICA Tam ([id number]) [facility] ([facility]) [address] [place] [address] Anion gap [Moles/Vol] 12 mmol/L Normal 10-20 [facility] Comment on above: Performed By: #### T HYDS #### ERICA Tam ([id number]) [facility] ([facility]) [address] [place] [address] Calcium [Mass/Vol] 8.5 mg/dL Low 8.6-10.6 [facility] Comment on above: Performed By: #### T HYDS #### ERICA Tam ([id number]) [facility] ([facility]) [address] [place] [address] Chloride [Moles/Vol] 103 mmol/L Normal 98-107 [facility] Comment on above: Performed By: #### T HYDS #### ERICA MCDONALD L ([id number]) [facility] ([facility]) [address] [place] [address] 57059 CO2 [Moles/Vol] 26 mmol/L Normal 21-32 [facility] Comment on above: Performed By: #### T HYDS #### ERICA Tam ([id number]) [facility] ([facility]) [address] [place] [address] 74648 Creatinine [Mass/Vol] 1.58 mg/dL High 0.50-1.30 [facility] Comment on above: Performed By: #### T HYDS #### ERCIA Tam ([id number]) [facility] ([facility]) [address] [place] [address] 29674 Glomerular filtration rate/1.73 sq M.predicted 47 mL/min/1.73m*2 Low >60 [facility] Comment on above: Result Comment: Calc ulations of estimated GFR are performed using the 2020 CKD-EPI Study Refit equation without the race variable for the IDMS-Traceable creatinine methods. https://jasn.asnjournals.org/content/early/ASN.2020 704623 Performed By: #### T HYDS #### ERICA Tam ([id number]) [facility] ([facility]) [address] [place] [address] 36204 Glucose [Mass/Vol] 220 mg/dL High 74-99 [facility] Comment on above: Performed By: #### T HYDS #### ERICA HIGGINSER L ([id number]) [facility] ([facility]) [address] [place] [address] 92779 Phosphate [Mass/Vol] 2.8 mg/dL Normal 2.5-4.9 [facility] Comment on above: Result Comment: The performance characteristics of phosphorus testing in heparinized plasma have been validated by the individual laboratory site where testing is performed. Testing on heparinized plasma is not approved by the FDA; however, such approval is not necessary. Performed By: #### T HYDS #### ERICA SCHMOTZER L ([id number]) [facility] ([facility]) [address] [place] [address] 23750 Potassium [Moles/Vol] 4.1 mmol/L Normal 3.5-5.3 [facility] Comment on above: Performed By: #### T HYDS #### ERICA SCHMOTZER L ([id number]) [facility] ([facility]) [address] [place] [address] 99582 Sodium [Moles/Vol] 137 mmol/L Normal 136-145 [facility] Comment on above: Performed By: #### T HYDS #### ERICA SCHMOTZER L ([id number]) [facility] ([facility]) [address] [place] [address] 18869 Urea nitrogen [Mass/Vol] 25 mg/dL High 6-23 [facility] Comment on above: Performed By: #### T HYDS #### ERIAC SCHMOTZER L ([id number]) [facility] ([facility]) [address] [place] [address] 48635 XR Chest 2 Viewson 4 1. Cardiomegaly with pulmonary edema and correlate with cardiac and fluid status. Signed by: Rex Ballesteros 10/18/2023 7:12 AM Dictation workstation: [id number] MMODAL Interpreted By: Rex Ballesteros, STUDY: XR CHEST 2 VIEWS; 10/16/2023 2:01 pm INDICATION: Signs/Symptoms:CABG evaluation. COMPARISON: None. ACCESSION NUMBER(S): [id number] ORDERING CLINICIAN: CATIA PATTON FINDINGS: CARDIOMEDIASTINAL SILHOUETTE: Cardiomegaly versus pericardial effusion. Right hilar calcifications. LUNGS: Low lung volumes with perihilar bibasilar atelectasis/effusions. ABDOMEN: No remarkable upper abdominal findings. BONES: No acute osseous changes. [facility] MM[facility]AL Steph Ballesteros MD - 10/18/2023 Interpreted By: Rex Ballesteros, STUDY: XR CHEST 2 VIEWS; 10/16/2023 2:01 pm INDICATION: Signs/Symptoms:CABG evaluation. COMPARISON: None. ACCESSION NUMBER(S): [id number] ORDERING CLINICIAN: CATIA PATTON FINDINGS: CARDIOMEDIASTINAL SILHOUETTE: Cardiomegaly versus pericardial effusion. Right hilar calcifications. LUNGS: Low lung volumes with perihilar bibasilar atelectasis/effusions. ABDOMEN: No remarkable upper abdominal findings. BONES: No acute osseous changes. IMPRESSION: 1. Cardiomegaly with pulmonary edema and correlate with cardiac and fluid status. Signed by: Rex Ballesteros 10/18/2023 7:12 AM Dictation workstation: [id number] [facility] Work Phone: XR Chest 2 ViewsOrdered By: Steph Ballesteros on 10-18-2023 [facility] Work Phone: CBC panel Auto (Bld)on 10-16 Erythrocyte distribution width (RBC) [Ratio] 14.5 % 11.5 - 14.5 % [facility] Hematocrit (Bld) [Volume fraction] 35.2 % Low 41.0 - 52.0 % [facility] Hemoglobin (Bld) [Mass/Vol] 11.1 g/dL Low 13.5 - 17.5 g/dL [facility] Interpretation and review of laboratory results Abnormal [facility] MCH (RBC) [Entitic mass] 29.1 pg 26.0 - 34.0 pg [facility] MCHC (RBC) [Mass/Vol] 31.5 g/dL Low 32.0 - 36.0 g/dL [facility] MCV (RBC) [Entitic vol] 92 fL 80 - 100 fL [facility] Nucleated RBC/100 WBC (Bld) [Ratio] 0.0 % [facility] Platelets (Bld) [#/Vol] 316 10*3/uL [facility] RBC (Bld) [#/Vol] 3.82 10*6/uL Low [facility] WBC (Bld) [#/Vol] 8.6 10*3/uL [facility] Erythrocyte distribution width (RBC) [Ratio] 14.5 % Normal 11.5-14.5 [facility] Comment on above: Performed By: #### 2 4323-8 #### ERICA Tam ([id number]) [facility] ([facility]) [address] [place] [address] 98628 Hematocrit (Bld) [Volume fraction] 35.2 % Low 41.0-52.0 [facility] Comment on above: Performed By: #### 2 4323-8 #### ERICA Tam ([id number]) [facility] ([facility]) [address] [place] [address] 11427 Hemoglobin (Bld) [Mass/Vol] 11.1 g/dL Low 13.5-17.5 [facility] Comment on above: Performed By: #### 2 4323-8 #### ERICA Tam ([id number]) [facility] ([facility]) [address] [place] [address] 53926 MCH (RBC) [Entitic mass] 29.1 pg Normal 26.0-34.0 [facility] Comment on above: Performed By: #### 2 4323-8 #### ERICA Tam ([id number]) [facility] ([facility]) [address] [place] [address] 84067 MCHC (RBC) [Mass/Vol] 31.5 g/dL Low 32.0-36.0 [facility] Comment on above: Performed By: #### 2 4323-8 #### ERICA Tam ([id number]) [facility] ([facility]) [address] [place] [address] 24148 MCV (RBC) [Entitic vol] 92 fL Normal 80-100 [facility] Comment on above: Performed By: #### 2 4323-8 #### ERICA Tam ([id number]) [facility] ([facility]) [address] [place] [address] 33773 Nucleated RBC/100 WBC (Bld) [Ratio] 0.0 /100 WBCs Normal 0.0-0.0 [facility] Comment on above: Performed By: #### 2 4323-8 #### ERICA Tam ([id number]) [facility] ([facility]) [address] [place] [address] 00034 Platelets (Bld) [#/Vol] 316 x10*3/uL Normal 150-450 [facility] Comment on above: Performed By: #### 2 4323-8 #### ERICA Tam ([id number]) [facility] ([facility]) [address] [place] [address] 98352 RBC (Bld) [#/Vol] 3.82 x10*6/uL Low 4.50-5.90 [facility] Comment on above: Performed By: #### 2 4323-8 #### ERICA Tam ([id number]) [facility] ([facility]) [address] [place] [address] 99130 WBC (Bld) [#/Vol] 8.6 x10*3/uL Normal 4.4-11.3 [facility] Comment on above: Performed By: #### 2 4323-8 #### ERICA Tam ([id number]) [facility] ([facility]) [address] [place] [address] 75602 Glucose Test strip manual (B ld) [Mass/Vol]on 10-17-2023 Glucose [Mass/Vol] 217 mg/dL High 74 - 99 mg/dL [facility] Interpretation and review of laboratory results Abnormal [facility] Glucose [Mass/Vol] 217 mg/dL High 74-99 [facility] Comment on above: Performed By: #### L IPIN #### ERICA Tam ([id number]) [facility] ([facility]) [address] [place] [address] 87549 Glucose [Mass/Vol] 271 mg/dL High 74 - 99 mg/dL [facility] Interpretation and review of laboratory results Abnormal [facility] Glucose [Mass/Vol] 271 mg/dL High 74-99 [facility] Comment on above: Performed By: #### 2 4323-8 #### ERICA Tam ([id number]) [facility] ([facility]) [address] [place] [address] 72977 Glucose [Mass/Vol] 189 mg/dL High 74 - 99 mg/dL [facility] Interpretation and review of laboratory results Abnormal [facility] Glucose [Mass/Vol] 189 mg/dL High 74-99 [facility] Comment on above: Performed By: #### 2 4323-8 #### ERICA Tam ([id number]) [facility] ([facility]) [address] [place] [address] 90138 Glucose [Mass/Vol] 256 mg/dL High 74 - 99 mg/dL [facility] Interpretation and review of laboratory results Abnormal [facility] Glucose [Mass/Vol] 256 mg/dL High 74-99 [facility] Comment on above: Performed By: #### 2 4323-8 #### ERICA Tam ([id number]) [facility] ([facility]) [address] [place] [address] 19860 Glucose [Mass/Vol] 176 mg/dL High 74 - 99 mg/dL [facility] Interpretation and review of laboratory results Abnormal [facility] Glucose [Mass/Vol] 176 mg/dL High 74-99 [facility] Comment on above: Performed By: #### 1 4979-9 #### ERICA Tam ([id number]) [facility] ([facility]) [address] [place] [address] 80097 Heparin Assay, UFHon 08-28-2 024 Heparin unfractionated Chromogenic method Qn (PPP) 0.3 See Comment Below for Therapeutic Ranges IU/mL [facility] Heparin unfractionated Chromogenic method Qn (PPP) 0.5 See Comment Below for Therapeutic Ranges IU/mL [facility] Heparin unfractionated Chromogenic method Qn (PPP) 0.2 See Comment Below for Therapeutic Ranges IU/mL [facility] Heparin unfractionated Chromogenic method Qn (PPP) 0.3 See Comment Below for Therapeutic Ranges IU/mL [facility] Heparin unfractionated Chrom ogenic method Qn (PPP)on 10-17-2023 Interpretation and review of laboratory results Normal [facility] The therapeutic reference range for UFH may be either 0.3-0.6 IU/mL or 0.3-0.7 IU/mL based on the clinical setting for anticoagulant therapy and the associated nomogram used. For Heparin dosing guidelines based on clinical scenario and Heparin Assay results, please refer to local Pharmacy and the [facility] Guidelines for Anticoagulation Therapy available on the [facility] intranet at: [email or web address]://[email or web address] VideoNot.esamerican fork hospitalMiselu [email or web address]..[email or web address]/Pharmacy/Pag es/[place]_ Guidelines_for_Anticoagu .aspx [facility] Interpretation and review of laboratory results Normal [facility] The therapeutic reference range for UFH may be either 0.3-0.6 IU/mL or 0.3-0.7 IU/mL based on the clinical setting for anticoagulant therapy and the associated nomogram used. For Heparin dosing guidelines based on clinical scenario and Heparin Assay results, please refer to local Pharmacy and the [facility] Guidelines for Anticoagulation Therapy available on the [facility] intranet at: [email or web address]://[employer].[facility] [email or web address]/Pharmacy/Pag es/[place]_ Guidelines_for_Anticoagu .aspx [facility] Interpretation and review of laboratory results Normal [facility] The therapeutic reference range for UFH may be either 0.3-0.6 IU/mL or 0.3-0.7 IU/mL based on the clinical setting for anticoagulant therapy and the associated nomogram used. For Heparin dosing guidelines based on clinical scenario and Heparin Assay results, please refer to local Pharmacy and the [facility] Guidelines for Anticoagulation Therapy available on the [facility] intranet at: [email or web address]://[email or web address]/Pharmacy/Pag es/[place]_ Guidelines_for_Anticoagu .aspx [facility] Interpretation and review of laboratory results Normal [facility] The therapeutic reference range for UFH may be either 0.3-0.6 IU/mL or 0.3-0.7 IU/mL based on the clinical setting for anticoagulant therapy and the associated nomogram used. For Heparin dosing guidelines based on clinical scenario and Heparin Assay results, please refer to local Pharmacy and the [facility] Guidelines for Anticoagulation Therapy available on the [facility] intranet at: [email or web address]://[email or web address] children's [email or web address]/Pharmacy/Pag es/[place]_ Guidelines_for_Anticoagu .aspx [facility] Heparin.unfractionatedon Heparin unfractionated Chromogenic method Qn (PPP) 0.3 IU/mL Normal See Comment Below for Therapeutic Ranges [facility] Comment on above: Order Comment: Obtai n 4 hours after any Heparin dosage change. Nursing to release order.The therapeutic reference range for UFH may be either 0.3-0.6 IU/mL or 0.3-0.7 IU/mL based on the clinical setting for anticoagulant therapy and the associated nomogram used. For Heparin dosing guidelines based on clinical scenario and Heparin Assay results, please refer to local Pharmacy and the [facility] Guidelines for Anticoagulation Therapy available on the [facility] intranet at: [email or web address]/Pharmacy/Pages/[place] [facility]_Guidelines_for_Anticoagu.aspx Performed By: #### 2 4323-8 #### ERICA Tam ([id number]) [facility] ([facility]) [address] [place] [address] Heparin unfractionated Chromogenic method Qn (PPP) 0.5 IU/mL Normal See Comment Below for Therapeutic Ranges [facility] Comment on above: Order Comment: Obtai n 4 hours after any Heparin dosage change. Nursing to release order.The therapeutic reference range for UFH may be either 0.3-0.6 IU/mL or 0.3-0.7 IU/mL based on the clinical setting for anticoagulant therapy and the associated nomogram used. For Heparin dosing guidelines based on clinical scenario and Heparin Assay results, please refer to local Pharmacy and the [facility] Guidelines for Anticoagulation Therapy available on the [facility] intranet at: [email or web address]/Pharmacy/Pages/[place] [facility]_Guidelines_for_Anticoagu.aspx Performed By: #### 2 4323-8 #### ERICA Tam ([id number]) [facility] ([facility]) [address] [place] [address] Heparin unfractionated Chromogenic method Qn (PPP) 0.2 IU/mL Normal See Comment Below for Therapeutic Ranges [facility] Comment on above: Order Comment: Prior to initiating heparin if not obtained in prior 48 hours. Nursing to release order. The APTT is no longer used for monitoring Unfractionated Heparin Therapy. For monitoring Heparin Therapy, use the Heparin Assay. Performed By: #### 1 4979-9 #### ERICA Tam ([id number]) [facility] ([facility]) [address] [place], [place] [id number] MRSA isol Org specific cx Ql (Nose)Ordered By: Lilliam Gandhi on 10-17-2023 Interpretation and review of laboratory results Normal [facility] Staphylococcus sp identified Org specific cx Nom (Unsp spec) No Staphylococcus aureus isolated [facility] Magnesiumon 10-17-2023 Magnesium [Mass/Vol] 1.94 mg/dL 1.60 - 2.40 mg/dL [facility] Magnesium [Mass/Vol] 1.94 mg/dL Normal 1.60-2.40 [facility] Comment on above: Performed By: #### L IPIN #### ERICA Tam ([id number]) [facility] ([facility]) [address] [place], [place] [id number] Magnesium [Mass/Vol]on 10-16 Interpretation and review of laboratory results Normal [facility] No Panel Informationon 10-16 [facility] Radiology Study observation (narrative) [facility] Work Phone: Renal function 2000 panelon 10-17-2023 Albumin BCP dye [Mass/Vol] 3.1 g/dL Low 3.4 - 5.0 g/dL [facility] Anion gap [Moles/Vol] 9 mmol/L Low 10 - 2 0 mmol/L [facility] Calcium [Mass/Vol] 8.2 mg/dL Low 8.6 - 10. 6 mg/dL [facility] Chloride [Moles/Vol] 104 mmol/L 98 - 10 7 mmol/L [facility] CO2 [Moles/Vol] 28 mmol/L 21 - 32 mmol/L [facility] Creatinine [Mass/Vol] 1.35 mg/dL High 0.50 - 1.30 mg/dL [facility] GFR/1.73 sq M.predicted among non-blacks MDRD (S/P/Bld) [Vol rate/Area] 57 mL/min/{1.73_m2} Low - PINF [facility] Comment on above: Calculations of mercedez mated GFR are performed using the 2020 CKD-EPI Study Refit equation without the race variable for the IDMS-Traceable creatinine methods. https://jasn.asnjournals.org/content/early/ASN.2020 857662 Glucose [Mass/Vol] 274 mg/dL High 74 - 99 mg/dL [facility] Interpretation and review of laboratory results Abnormal [facility] Phosphate [Mass/Vol] 2.5 mg/dL 2.5 - 4 .9 mg/dL [facility] Comment on above: The performance cecilia acteristics of phosphorus testing in heparinized plasma have been validated by the individual laboratory site where testing is performed. Testing on heparinized plasma is not approved by the FDA; however, such approval is not necessary. Potassium [Moles/Vol] 4.3 mmol/L 3.5 - 5.3 mmol/L [facility] Sodium [Moles/Vol] 137 mmol/L 136 - 145 mmol/L [facility] Urea nitrogen [Mass/Vol] 27 mg/dL High 6 - 23 mg/dL [facility] Albumin BCP dye [Mass/Vol] 3.1 g/dL Low 3.4-5.0 [facility] Comment on above: Performed By: #### L IPIN #### ERICA MCDONALD L ([id number]) [facility] ([facility]) [address] [place] [address] Anion gap [Moles/Vol] 9 mmol/L Low 10-20 [facility] Comment on above: Performed By: #### L IPIN #### ERICA MCDONALD L ([id number]) [facility] ([facility]) [address] [place] [address] Calcium [Mass/Vol] 8.2 mg/dL Low 8.6-10.6 [facility] Comment on above: Performed By: #### L IPIN #### ERICA MCDONALD L ([id number]) [facility] ([facility]) [address] [place] [address] 18640 Chloride [Moles/Vol] 104 mmol/L Normal 98-107 [facility] Comment on above: Performed By: #### L IPIN #### ERICA MCDONALD L ([id number]) [facility] ([facility]) [address] [place] [address] CO2 [Moles/Vol] 28 mmol/L Normal 21-32 [facility] Comment on above: Performed By: #### L IPIN #### ERICA MCDONALD L ([id number]) [facility] ([facility]) [address] [place] [address] Creatinine [Mass/Vol] 1.35 mg/dL High 0.50-1.30 [facility] Comment on above: Performed By: #### L IPIN #### ERICA MCDONALD L ([id number]) [facility] ([facility]) [address] [place] [address] Glomerular filtration rate/1.73 sq M.predicted 57 mL/min/1.73m*2 Low >60 [facility] Comment on above: Result Comment: Calc ulations of estimated GFR are performed using the 2020 CKD-EPI Study Refit equation without the race variable for the IDMS-Traceable creatinine methods. https://jasn.asnjournals.org/content/early/ASN.2020 396868 Performed By: #### L IPIN #### ERICA Tam ([id number]) [facility] ([facility]) [address] [place] [address] Glucose [Mass/Vol] 274 mg/dL High 74-99 [facility] Comment on above: Performed By: #### L IPIN #### ERICA Tam ([id number]) [facility] ([facility]) [address] [place] [address] 41596 Phosphate [Mass/Vol] 2.5 mg/dL Normal 2.5-4.9 [facility] Comment on above: Result Comment: The performance characteristics of phosphorus testing in heparinized plasma have been validated by the individual laboratory site where testing is performed. Testing on heparinized plasma is not approved by the FDA; however, such approval is not necessary. Performed By: #### L IPIN #### ERICA Tam ([id number]) [facility] ([facility]) [address] [place] [address]641 Potassium [Moles/Vol] 4.3 mmol/L Normal 3.5-5.3 [facility] Comment on above: Performed By: #### L IPIN #### ERICA Tam ([id number]) [facility] ([facility]) [address] [place] [address] 35104 Sodium [Moles/Vol] 137 mmol/L Normal 136-145 [facility] Comment on above: Performed By: #### L IPIN #### ERICA Tam ([id number]) [facility] ([facility]) [address] [place] [address] 73670 Urea nitrogen [Mass/Vol] 27 mg/dL High 6-23 [facility] Comment on above: Performed By: #### L IPIN #### ERICA Tam ([id number]) [facility] ([facility]) [address] [place] [address] 33902 US.doppler Carotid arteries - bilateralon 10-17-2023 [place] [address] and Vascular Lab Report VASC US CAROTID ARTERY DUPLEX BILATERAL Patient Name: ITALIA ALLEN Angelina Physician: [id number] Marshal Nolan MD Study Date: 10/17/2023 Ordering [id number] RU Mina Physician: CUATE MRN/PID: [id number] Technologist: Gallito HARTMANN Technologist 2: Date of /Age: 5 1955 years Gender: M Admission Status: Inpatient Location [facility] Performed: Diagnosis/ICD: Encounter for preprocedural cardiovascular examination-Z01.810 Indication: Pre-Op CABG CPT Codes: 89342 Cerebrovascular Carotid Duplex scan complete Patient History [...] cm/s Right Left ICA/CCA Ratio 0.0 1.3 [id number] Nolan MD Final Marshal Alvarez MD - 10/17/2023 [place] [address] and Vascular Lab Report [facility] US CAROTID ARTERY DUPLEX BILATERAL Patient Name: ITALIA Alfaro Physician: [id number] Nolan MD Study Date: 10/17/2023 Ordering [id number] RU Mina Physician: CUATE MRN/PID: [id number] Technologist: Gallito HARTMANN Technologist 2: Date of /Age: 5 1955 years Gender: M Admission Status: Inpatient Location [facility] Performed: Diagnosis/ICD: Encounter for preprocedural cardiovascular examination-Z01.810 Indication: Pre-Op CABG CPT Codes: 49799 Cerebrovascular Carotid Duplex scan complete Patient History [...] cm/s Right Left ICA/CCA Ratio 0.0 1.3 [id number] Nolan MD Final [facility] Work Phone: [facility] Work Phone: [facility] US ANKLE BRACHIAL INDEX (LUCIO) WITHOUT EXERCISEon 10-17-2023 [facility] US ANKLE BRACHIAL INDEX (LUCIO) WITHOUT EXERCISE [place] [address] and Vascular Lab Report [facility] US ANKLE BRACHIAL INDEX (LUCIO) WITHOUT EXERCISE Patient Name: ITALIA Alfaro Physician: [id number] Nolan MD Study Date: 10/17/2023 Ordering [id number] RU Mina Physician: CUATE MRN/PID: [id number] Technologist: Sandy Smith Chuck Technologist 2: Date of /Age: 5 1955 years Gender: M Admission Status: Inpatient Location [facility] Performed: Diagnosis/ICD: Peripheral vascular disease, unspecified-I73.9 CPT Codes: 23938 Peripheral artery LUCIO Only CONCLUSIONS: Right Lower [...] Left Brachial Pressure 155 mmHg 149 mmHg [id number] Nolan MD Final [facility] US CAROTID ARTERY DUPLE X BILATERALon 10-17-2023 [facility] US CAROTID ARTERY DUPLEX BILATERAL [place] [address] and Vascular Lab Report [facility] US CAROTID ARTERY DUPLEX BILATERAL Patient Name: ITALIA ALLEN Angelina Physician: Myriam Nolan MD Study Date: 10/17/2023 Ordering [id number] RU Mina Physician: CUATE MRN/PID: [id number] Technologist: Gallito HARTMANN Technologist 2: Date of /Age: 5 1955 years Gender: M Admission Status: Inpatient Location [facility] Performed: Diagnosis/ICD: Encounter for preprocedural cardiovascular examination-Z01.810 Indication: Pre-Op CABG CPT Codes: 33353 Cerebrovascular Carotid Duplex scan complete Patient History [...] cm/s Right Left ICA/CCA Ratio 0.0 1.3 [id number] Nolan MD Final [facility] US LOWER EXTREMITY VEIN MAPPING BILATERALon 10-17-2023 [facility] US LOWER EXTREMITY VEIN MAPPING BILATERAL [place] [address] and Vascular Lab Report [facility] US LOWER EXTREMITY VEIN MAPPING BILATERAL Patient Name: ITALIA KALYANBRISEYDA Alfaro Physician: [id number] Nolan MD Study Date: 10/17/2023 [facility] [id number] RU Physician: CUATE MRN/PID: [id number] Technologist: Gallito Marie [facility] Technologist 2: Date of /Age: 5 1955 years Gender: M Admission Status: Inpatient Location [facility] Performed: Diagnosis/ICD: Encounter for preprocedural cardiovascular examination-Z01.810 Indication: Pre-operative exam CPT Codes: 57261 Vein mapping complete Patient History CAD. CONCLUSIONS: [...] Dist Calf GSV Yes None 1.0 mm [id number] Nolan MD Final Normal [facility] US Ankle Brachial I ndex (LUCIO) Without Exerciseon 10-17-2023 Body surface area Derived from formula 2.37 m2 [facility] Work Phone: [place] [address] and Vascular Lab Report VASC US ANKLE BRACHIAL INDEX (LUCIO) WITHOUT EXERCISE Patient Name: ITALIA Alfaro Physician: [id number] Nolan MD Study Date: 10/17/2023 Ordering [id number] RU Mina Physician: CUATE MRN/PID: [id number] Technologist: Sandy Smith RVT Technologist 2: Date of /Age: 5 1955 years Gender: M Admission Status: Inpatient Location [facility] Performed: Diagnosis/ICD: Peripheral vascular disease, unspecified-I73.9 CPT Codes: 65766 Peripheral artery LUCIO Only CONCLUSIONS: Right Lower [...] mmHg 149 mmHg Myriam Nolan MD Final Marshal Alvarez MD - 10/17/2023 [place] [address] and Vascular Lab Report [facility] US ANKLE BRACHIAL INDEX (LUCIO) WITHOUT EXERCISE Patient Name: ITALIA Alfaro Physician: Myriam Nolan MD Study Date: 10/17/2023 Ordering [id number] RU Mina Physician: CUATE MRN/PID: [id number] Technologist: Sandy Smith RVT Technologist 2: Date of /Age: 5 1955 years Gender: M Admission Status: Inpatient Location [facility] Performed: Diagnosis/ICD: Peripheral vascular disease, unspecified-I73.9 CPT Codes: 56852 Peripheral artery LUCIO Only CONCLUSIONS: Right Lower [...] Left Brachial Pressure 155 mmHg 149 mmHg [id number] Nolan MD Final [facility] Work Phone: [facility] Work Phone: [facility]ascular US Lower Extremity Vein Mapping Bilateralon 10-17-2023 [place] [address] and Vascular Lab Report VASC US LOWER EXTREMITY VEIN MAPPING BILATERAL Patient Name: ITALIA Alfaro Physician: [id number] Nolan MD Study Date: 10/17/2023 Ordering [id number] RU Mina Physician: CUATE MRN/PID: [id number] Technologist: Gallito Marie Jitendra Technologist 2: Date of /Age: 5 1955 years Gender: M Admission Status: Inpatient Location [facility] Performed: Diagnosis/ICD: Encounter for preprocedural cardiovascular examination-Z01.810 Indication: Pre-operative exam CPT Codes: 17092 Vein mapping complete Patient History CAD. CONCLUSIONS: [...] Dist Calf GSV Yes None 1.0 mm [id number] Nolan MD Final Marshal Alvarez MD - 10/17/2023 [place] [address] and Vascular Lab Report [facility] US LOWER EXTREMITY VEIN MAPPING BILATERAL Patient Name: ITALIA Alfaro Physician: [id number] Nolan MD Study Date: 10/17/2023 Ordering [id number] RU Mina Physician: CUATE MRN/PID: [id number] Technologist: Gallito Marie [facility] Technologist 2: Date of /Age: 5 1955 years Gender: M Admission Status: Inpatient Location [facility] Performed: Diagnosis/ICD: Encounter for preprocedural cardiovascular examination-Z01.810 Indication: Pre-operative exam CPT Codes: 70355 Vein mapping complete Patient History CAD. CONCLUSIONS: [...] Dist Calf GSV Yes None 1.0 mm [id number] Marshal Nolan MD Final [facility] Work Phone: Vascular US Lower Extremity Vein Mapping BilateralOrdered By: Marshal Nolan on 10-17-2023 [facility] Work Phone: CBC panel Auto (Bld)on 10-15 Erythrocyte distribution width (RBC) [Ratio] 14.4 % 11.5 - 14.5 % [facility] Hematocrit (Bld) [Volume fraction] 33.4 % Low 41.0 - 52.0 % [facility] Hemoglobin (Bld) [Mass/Vol] 10.5 g/dL Low 13.5 - 17.5 g/dL [facility] Interpretation and review of laboratory results Abnormal [facility] MCH (RBC) [Entitic mass] 28.5 pg 26.0 - 34.0 pg [facility] MCHC (RBC) [Mass/Vol] 31.4 g/dL Low 32.0 - 36.0 g/dL [facility] MCV (RBC) [Entitic vol] 91 fL 80 - 100 fL [facility] Nucleated RBC/100 WBC (Bld) [Ratio] 0.0 % [facility] Platelets (Bld) [#/Vol] 283 10*3/uL [facility] RBC (Bld) [#/Vol] 3.69 10*6/uL Low [facility] WBC (Bld) [#/Vol] 8.2 10*3/uL [facility] Erythrocyte distribution width (RBC) [Ratio] 14.4 % Normal 11.5-14.5 [facility] Comment on above: Performed By: #### 1 4979-9 #### ERICA Tam ([id number]) [facility] ([facility]) [address] [place] [address] 96527 Hematocrit (Bld) [Volume fraction] 33.4 % Low 41.0-52.0 [facility] Comment on above: Performed By: #### 1 4979-9 #### ERICA Tam ([id number]) [facility] ([facility]) [address] [place] [address] 52080 Hemoglobin (Bld) [Mass/Vol] 10.5 g/dL Low 13.5-17.5 [facility] Comment on above: Performed By: #### 1 4979-9 #### ERICA Tam ([id number]) [facility] ([facility]) [address] [place] [address] 81522 MCH (RBC) [Entitic mass] 28.5 pg Normal 26.0-34.0 [facility] Comment on above: Performed By: #### 1 4979-9 #### ERICA Tam ([id number]) [facility] ([facility]) [address] [place] [address] 36515 MCHC (RBC) [Mass/Vol] 31.4 g/dL Low 32.0-36.0 [facility] Comment on above: Performed By: #### 1 4979-9 #### ERICA Tam ([id number]) [facility] ([facility]) [address] [place] [address] 83530 MCV (RBC) [Entitic vol] 91 fL Normal 80-100 [facility] Comment on above: Performed By: #### 1 4979-9 #### ERICA Tam ([id number]) [facility] ([facility]) [address] [place] [address] 69435 Nucleated RBC/100 WBC (Bld) [Ratio] 0.0 /100 WBCs Normal 0.0-0.0 [facility] Comment on above: Performed By: #### 1 4979-9 #### ERICA Tam ([id number]) [facility] ([facility]) [address] [place] [address] 37362 Platelets (Bld) [#/Vol] 283 x10*3/uL Normal 150-450 [facility] Comment on above: Performed By: #### 1 4979-9 #### ERICA Tam ([id number]) [facility] ([facility]) [address] [place] [address] 86177 RBC (Bld) [#/Vol] 3.69 x10*6/uL Low 4.50-5.90 [facility] Comment on above: Performed By: #### 1 4979-9 #### ERICA Tam ([id number]) [facility] ([facility]) [address] [place] [address] 44257 WBC (Bld) [#/Vol] 8.2 x10*3/uL Normal 4.4-11.3 [facility] Comment on above: Performed By: #### 1 4979-9 #### ERICA Tam ([id number]) [facility] ([facility]) [address] [place] [address] 70589 Erythrocyte distribution width (RBC) [Ratio] 14.6 % High 11.5 - 14.5 % [facility] Hematocrit (Bld) [Volume fraction] 35.2 % Low 41.0 - 52.0 % [facility] Hemoglobin (Bld) [Mass/Vol] 11.4 g/dL Low 13.5 - 17.5 g/dL [facility] Interpretation and review of laboratory results Abnormal [facility] MCH (RBC) [Entitic mass] 29.3 pg 26.0 - 34.0 pg [facility] MCHC (RBC) [Mass/Vol] 32.4 g/dL 32.0 - 36.0 g/dL [facility] MCV (RBC) [Entitic vol] 91 fL 80 - 100 fL [facility] Nucleated RBC/100 WBC (Bld) [Ratio] 0.0 % [facility] Platelets (Bld) [#/Vol] 285 10*3/uL [facility] RBC (Bld) [#/Vol] 3.89 10*6/uL Low [facility] WBC (Bld) [#/Vol] 9.3 10*3/uL [facility] Erythrocyte distribution width (RBC) [Ratio] 14.6 % High 11.5-14.5 [facility] Comment on above: Performed By: #### 5 8410-2 #### ERICA Tam ([id number]) [facility] ([facility]) [address] [place] [address] 38894 Hematocrit (Bld) [Volume fraction] 35.2 % Low 41.0-52.0 [facility] Comment on above: Performed By: #### 5 8410-2 #### ERICA Tam ([id number]) [facility] ([facility]) [address] [place] [address] 23622 Hemoglobin (Bld) [Mass/Vol] 11.4 g/dL Low 13.5-17.5 [facility] Comment on above: Performed By: #### 5 8410-2 #### ERICA Tam ([id number]) [facility] ([facility]) [address] [place] [address] 04696 MCH (RBC) [Entitic mass] 29.3 pg Normal 26.0-34.0 [facility] Comment on above: Performed By: #### 5 8410-2 #### ERICA Tam ([id number]) [facility] ([facility]) [address] [place] [address] 52602 MCHC (RBC) [Mass/Vol] 32.4 g/dL Normal 32.0-36.0 [facility] Comment on above: Performed By: #### 5 8410-2 #### ERICA Tam ([id number]) [facility] ([facility]) [address] [place] [address] 58297 MCV (RBC) [Entitic vol] 91 fL Normal 80-100 [facility] Comment on above: Performed By: #### 5 8410-2 #### ERICA Tam ([id number]) [facility] ([facility]) [address] [place] [address] 37387 Nucleated RBC/100 WBC (Bld) [Ratio] 0.0 /100 WBCs Normal 0.0-0.0 [facility] Comment on above: Performed By: #### 5 8410-2 #### ERICA Tam ([id number]) [facility] ([facility]) [address] [place] [address] 97766 Platelets (Bld) [#/Vol] 285 x10*3/uL Normal 150-450 [facility] Comment on above: Performed By: #### 5 8410-2 #### ERICA Tam ([id number]) [facility] ([facility]) [address] [place] [address] 26421 RBC (Bld) [#/Vol] 3.89 x10*6/uL Low 4.50-5.90 [facility] Comment on above: Performed By: #### 5 8410-2 #### ERICA Tam ([id number]) [facility] ([facility]) [address] [place] [address] 59054 WBC (Bld) [#/Vol] 9.3 x10*3/uL Normal 4.4-11.3 [facility] Comment on above: Performed By: #### 5 8410-2 #### ERICA Tam ([id number]) [facility] ([facility]) [address] [place] [address] 95159 Coagulation surface inducedo n 10-16-2023 aPTT Coag (PPP) [Time] 30 s Normal 27-38 Un [facility] Comment on above: Order Comment: Prior to initiating heparin if not obtained in prior 48 hours. Nursing to release order. The APTT is no longer used for monitoring Unfractionated Heparin Therapy. For monitoring Heparin Therapy, use the Heparin Assay. Performed By: #### 1 4979-9 #### ERICA Tam ([id number]) [facility] ([facility]) [address] [place], [place] [address] Coagulation tissue factor in ducedon 10-16-2023 PT Coag (PPP) [Time] 12.5 s Normal 9.8-12.8 [facility] Comment on above: Order Comment: If val monroe has not had PT + INR in the last 24 hours. Nursing to release order. Performed By: #### 5 902-2 #### ERICA Tam ([id number]) [facility] ([facility]) [address] [place], [place] [address] Cobalamin (Vitamin B12) [Mas s/Vol]on 10-16-2023 Interpretation and review of laboratory results Abnormal [facility] Cobalaminson 10-16-2023 Cobalamin (Vitamin B12) [Mass/Vol] 201 pg/mL Low 211-911 [facility] Comment on above: Performed By: #### 5 902-2 #### ERICA Tam ([id number]) [facility] ([facility]) [address] [place], [place] [address] Comprehensive metabolic 2000 panelon 10-16-2023 Albumin BCP dye [Mass/Vol] 3.3 g/dL Low 3.4 - 5.0 g/dL [facility] ALP [Catalytic activity/Vol] 58 U/L 33 - 136 U/L [facility] ALT With P-5'-P [Catalytic activity/Vol] 15 U/L 10 - 52 U/L [facility] Comment on above: Patients treated wit h Sulfasalazine may generate falsely decreased results for ALT. Anion gap [Moles/Vol] 13 mmol/L 10 - 2 0 mmol/L [facility] AST With P-5'-P [Catalytic activity/Vol] 14 U/L 9 - 39 U/L [facility] Comment on above: MILD HEMOLYSIS DETEC ZAID. The result may be falsely elevated due to hemolysis or other interferents. Clinical correlation is recommended. Repeat testing may be considered. Bilirubin [Mass/Vol] 0.4 mg/dL 0.0 - 1 .2 mg/dL [facility] Calcium [Mass/Vol] 8.3 mg/dL Low 8.6 - 10. 6 mg/dL [facility] Chloride [Moles/Vol] 102 mmol/L 98 - 10 7 mmol/L [facility] CO2 [Moles/Vol] 26 mmol/L 21 - 32 mmol/L [facility] Creatinine [Mass/Vol] 1.64 mg/dL High 0.50 - 1.30 mg/dL [facility] GFR/1.73 sq M.predicted among non-blacks MDRD (S/P/Bld) [Vol rate/Area] 45 mL/min/{1.73_m2} Low - PINF [facility] Comment on above: Calculations of mercedez mated GFR are performed using the 2020 CKD-EPI Study Refit equation without the race variable for the IDMS-Traceable creatinine methods. https://jasn.asnjournals.org/content//ASN.2020 470637 Glucose [Mass/Vol] 173 mg/dL High 74 - 99 mg/dL [facility] Interpretation and review of laboratory results Abnormal [facility] Potassium [Moles/Vol] 4.3 mmol/L 3.5 - 5.3 mmol/L [facility] Comment on above: MILD HEMOLYSIS DETEC ZAID. The result may be falsely elevated due to hemolysis or other interferents. Clinical correlation is recommended. Repeat testing may be considered. Protein [Mass/Vol] 5.6 g/dL Low 6.4 - 8.2 g/dL [facility] Sodium [Moles/Vol] 137 mmol/L 136 - 145 mmol/L [facility] Urea nitrogen [Mass/Vol] 33 mg/dL High 6 - 23 mg/dL [facility] Albumin BCP dye [Mass/Vol] 3.3 g/dL Low 3.4-5.0 [facility] Comment on above: Performed By: #### 2 4323-8 #### ERICA Tam ([id number]) [facility] ([facility]) [address] [place] [address] ALP [Catalytic activity/Vol] 58 U/L Normal 33-136 [facility] Comment on above: Performed By: #### 2 4323-8 #### ERICA MCDONALD L ([id number]) [facility] ([facility]) [address] [place] [address] 11084 ALT With P-5'-P [Catalytic activity/Vol] 15 U/L Normal 10-52 [facility] Comment on above: Result Comment: Criselda ents treated with Sulfasalazine may generate falsely decreased results for ALT. Performed By: #### 2 4323-8 #### ERICA MCDONALD L ([id number]) [facility] ([facility]) [address] [place] [address] 35403 Anion gap [Moles/Vol] 13 mmol/L Normal 10-20 [facility] Comment on above: Performed By: #### 2 4323-8 #### ERICA Tam ([id number]) [facility] ([facility]) [address] [place] [address] 31578 AST With P-5'-P [Catalytic activity/Vol] 14 U/L Normal 9-39 [facility] Comment on above: Result Comment: MILD HEMOLYSIS DETECTED. The result may be falsely elevated due to hemolysis or other interferents. Clinical correlation is recommended. Repeat testing may be considered. Performed By: #### 2 4323-8 #### ERICA MCDONALD L ([id number]) [facility] ([facility]) [address] [place] [address] Bilirubin [Mass/Vol] 0.4 mg/dL Normal 0.0-1.2 [facility] Comment on above: Performed By: #### 2 4323-8 #### ERICA HIGGINSER L ([id number]) [facility] ([facility]) [address] [place] [address] 38864 Calcium [Mass/Vol] 8.3 mg/dL Low 8.6-10.6 [facility] Comment on above: Performed By: #### 2 4323-8 #### ERICA Tam ([id number]) [facility] ([facility]) [address] [place] [address] Chloride [Moles/Vol] 102 mmol/L Normal 98-107 [facility] Comment on above: Performed By: #### 2 4323-8 #### ERICA MCDONALD L ([id number]) [facility] ([facility]) [address] [place] [address] CO2 [Moles/Vol] 26 mmol/L Normal 21-32 [facility] Comment on above: Performed By: #### 2 4323-8 #### ERICA Tam ([id number]) [facility] ([facility]) [address] [place] [address] 93143 Creatinine [Mass/Vol] 1.64 mg/dL High 0.50-1.30 [facility] Comment on above: Performed By: #### 2 4323-8 #### ERICA Tam ([id number]) [facility] ([facility]) [address] [place] [address] 99343 Glomerular filtration rate/1.73 sq M.predicted 45 mL/min/1.73m*2 Low >60 [facility] Comment on above: Result Comment: Calc ulations of estimated GFR are performed using the 2020 CKD-EPI Study Refit equation without the race variable for the IDMS-Traceable creatinine methods. https://jasn.asnjournals.org/content/early//ASN.2020 718645 Performed By: #### 2 4323-8 #### ERICA MCDONALD L ([id number]) [facility] ([facility]) [id number] [place] [address] 85558 Glucose [Mass/Vol] 173 mg/dL High 74-99 [facility] Comment on above: Performed By: #### 2 4323-8 #### ERICA Tam ([id number]) [facility] ([facility]) [address] [place] [address] 06691 Potassium [Moles/Vol] 4.3 mmol/L Normal 3.5-5.3 [facility] Comment on above: Result Comment: MILD HEMOLYSIS DETECTED. The result may be falsely elevated due to hemolysis or other interferents. Clinical correlation is recommended. Repeat testing may be considered. Performed By: #### 2 4323-8 #### ERICA Tam ([id number]) [facility] ([facility]) [address] [place] [address] 71778 Protein [Mass/Vol] 5.6 g/dL Low 6.4-8.2 [facility] Comment on above: Performed By: #### 2 4323-8 #### ERICA Tam ([id number]) [facility] ([facility]) [address] [place] [address] 73990 Sodium [Moles/Vol] 137 mmol/L Normal 136-145 [facility] Comment on above: Performed By: #### 2 4323-8 #### ERICA Tam ([id number]) [facility] ([facility]) [address] [place] [address] 99135 Urea nitrogen [Mass/Vol] 33 mg/dL High 6-23 [facility] Comment on above: Performed By: #### 2 4323-8 #### ERICA Tam ([id number]) [facility] ([facility]) [address] [place] [address] 84570 ECG 12 leadOrdered By: Bertha Kennedy on 10-16-2023 Atrial Rate 85 BPM [facility] Work Phone: P [place] 40 degrees [facility] Work Phone: P Offset 185 ms [facility] Work Phone: P Onset 124 [facility] Work Phone: [place] Interval 196 ms [facility] Work Phone: Q Onset 222 ms [facility] Work Phone: [phone] QRS Count 14 beats [facility] Work Phone: [phone] QRS Duration 100 ms [facility] Work Phone: [phone] QT Interval 392 ms [facility] Work Phone: [phone] QTC Calculation(Bazett) 466 ms U [facility] Work Phone: [phone] QTC Fredericia 440 ms [facility] Work Phone: [phone] R [place] 54 degrees [facility] Work Phone: [phone] T [place] 51 degrees [facility] Work Phone: [phone] T Offset 418 ms [facility] Work Phone: [phone] Ventricular Rate 85 BPM [facility] Work Phone: [phone] [facility] Work Phone: [phone] ECG 12 leadon 10-16-2023 Normal sinus rhythm Prolonged QT Abnormal ECG No previous ECGs available Confirmed by Mark Kennedy ([id number]) on 10/16/2023 5:14:12 PM MUSE Mark Kennedy MD - 10/16/2023 Normal sinus rhythm Prolonged QT Abnormal ECG No previous ECGs available Confirmed by Mark Kennedy ([id number]) on 10/16/2023 5:14:12 PM [facility] Work Phone: ECG 12-LEADon 10-16-2023 ECG 12-LEAD Ventricular Rate 85 Atrial Rate 85 P-R Interval 196 QRS Duration 100 Q-T Interval 392 QTC Calculation(Bazett) 466 P [place] 40 R [place] 54 T [place] 51 QRS Count 14 Q Onset 222 P Onset 124 P Offset 185 T Offset 418 QTC Fredericia 440 Diagnosis Normal sinus rhythm Prolonged QT Abnormal ECG No previous ECGs available Confirmed by Mark Kennedy ([id number]) on 10/16/2023 5:14:12 PM Normal [facility] Extra Urine Fitch Tubeon - Extra Tube Hold for add-ons. [facility] Comment on above: Auto resulted. [facility] Ferritinon 10-16-2023 Ferritin [Mass/Vol] 184 ng/mL 20 - 300 ng/mL [facility] Ferritin [Mass/Vol] 184 ng/mL Normal 20-300 [facility] Comment on above: Performed By: #### 5 902-2 #### ERICA Tam ([id number]) [facility] ([facility]) [address] [place] [address] 73017 Ferritin [Mass/Vol]on 2023 Interpretation and review of laboratory results Normal [facility] Folateon 10-16-2023 Folate [Mass/Vol] 10.0 ng/mL 5.0 - PINF ng/mL [facility] Folate [Mass/Vol] 10.0 ng/mL Normal >5.0 [facility] Comment on above: Order Comment: If val monroe has not had PT + INR in the last 24 hours. Nursing to release order. Performed By: #### 5 902-2 #### ERICA Tam ([id number]) [facility] ([facility]) [address] [place] [address] 90162 Folate [Mass/Vol]on 10-16-19 Low <3.4 Borderline 3.4-5.0 Normal >5.0 Patients receiving more than 5 mg/day of biotin may have interference in test results. A sample should be taken no sooner than eight hours after previous dose. Contact the testing laboratory for additional information. [facility] Free T4 [Mass/Vol]on 024 Thyroxine Free testi ng is performed using different testing methodology at [facility] than at other [facility]. Direct result comparisons should only be made within the same method. [facility] Gas and Carbon monoxide pane l (BldA)on 10-16-2023 Base excess Calc (Bld) [Moles/Vol] -0.5000 mmol/L -2.0 - 3.0 mmol/L [facility] Carboxyhemoglobin (BldA) [Mass fraction] 3.1 % [facility] Comment on above: Ref Values Non-Smokers 0.5-1.5% Smokers 0.5-10.0% CO2 (Bld) [Partial pressure] 39 mm[Hg] [facility] Deoxyhemoglobin (BldA) [Mass fraction] 4.8 % 0.0 - 5.0 % [facility] HCO3 (Bld) [Moles/Vol] 24.2 mmol/L 22.0 - 26.0 mmol/L [facility] Hemoglobin (Bld) [Mass/Vol] 11.3 g/dL Low 13.5 - 17.5 g/dL [facility] Interpretation and review of laboratory results Abnormal [facility] Methemoglobin (BldA) [Mass fraction] 0.0 % 0.0 - 1.5 % [facility] Oxygen (Bld) [Partial pressure] 67 mm[Hg] Low [facility] Oxyhemoglobin (BldA) [Mass fraction] 92.2 % Low 94.0 - 98.0 % [facility] pH (Bld) 7.40 [pH] 7.38 - 7.42 pH [facility] Base excess Calc (Bld) [Moles/Vol] -0.5000 mmol/L Normal -2.0-3.0 [facility] Comment on above: Performed By: #### 1 4979-9 #### ERICA Tam ([id number]) [facility] ([facility]) [address] [place] [address] 26541 Carboxyhemoglobin (BldA) [Mass fraction] 3.1 % Normal [facility] Comment on above: Result Comment: Ref Values Non-Smokers 0.5-1.5% Smokers 0.5-10.0% Performed By: #### 1 4979-9 #### ERICA Tam ([id number]) [facility] ([facility]) [address] [place] [address] CO2 (Bld) [Partial pressure] 39 mm Hg Normal 38-42 [facility] Comment on above: Performed By: #### 1 4979-9 #### ERICA Tam ([id number]) [facility] ([facility]) [address] [place] [address] Deoxyhemoglobin (BldA) [Mass fraction] 4.8 % Normal 0.0-5.0 [facility] Comment on above: Performed By: #### 1 4979-9 #### ERICA Tam ([id number]) [facility] ([facility]) [address] [place] [address] 56614 HCO3 (Bld) [Moles/Vol] 24.2 mmol/L Normal 22.0-26.0 [facility] Comment on above: Performed By: #### 1 4979-9 #### ERICA Tam ([id number]) [facility] ([facility]) [address] [place] [address] 56876 Hemoglobin (Bld) [Mass/Vol] 11.3 g/dL Low 13.5-17.5 [facility] Comment on above: Performed By: #### 1 4979-9 #### ERICA Tam ([id number]) [facility] ([facility]) [address] [place] [address] 89267 Methemoglobin (BldA) [Mass fraction] 0.0 % Normal 0.0-1.5 [facility] Comment on above: Performed By: #### 1 4979-9 #### ERICA Tam ([id number]) [facility] ([facility]) [address] [place] [address] 00722 Oxygen (Bld) [Partial pressure] 67 mm Hg Low 85-95 [facility] Comment on above: Performed By: #### 1 4979-9 #### ERICA Tam ([id number]) [facility] ([facility]) [address] [place] [address] 59616 Oxyhemoglobin (BldA) [Mass fraction] 92.2 % Low 94.0-98.0 [facility] Comment on above: Performed By: #### 1 4979-9 #### ERICA Tam ([id number]) [facility] ([facility]) [address] [place] [address] 67385 pH (Bld) 7.40 [pH] Normal 7.38-7.42 [facility] Comment on above: Performed By: #### 1 4979-9 #### ERICA Tam ([id number]) [facility] ([facility]) [address] [place] [address] 12773 Glucose Test strip manual (B ld) [Mass/Vol]on 10-16-2023 Glucose [Mass/Vol] 151 mg/dL High 74 - 99 mg/dL [facility] Interpretation and review of laboratory results Abnormal [facility] Glucose [Mass/Vol] 151 mg/dL High 74-99 [facility] Comment on above: Performed By: #### 1 4979-9 #### ERICA Tam ([id number]) [facility] ([facility]) [address] [place] [address] 07009 Glucose [Mass/Vol] 261 mg/dL High 74 - 99 mg/dL [facility] Interpretation and review of laboratory results Abnormal [facility] Glucose [Mass/Vol] 261 mg/dL High 74-99 [facility] Comment on above: Performed By: #### 1 4979-9 #### ERICA Tam ([id number]) [facility] ([facility]) [address] [place] [address] 45617 Glucose [Mass/Vol] 170 mg/dL High 74 - 99 mg/dL [facility] Interpretation and review of laboratory results Abnormal [facility] Glucose [Mass/Vol] 170 mg/dL High 74-99 [facility] Comment on above: Performed By: #### 5 902-2 #### ERICA Tam ([id number]) [facility] ([facility]) [address] [place] [address] 16173 HbA1c (Bld) [Mass fraction]o n 10-16-2023 Average glucose Estimated from glycated hemoglobin (Bld) [Mass/Vol] 148 mg/dL Not Established [facility] Interpretation and review of laboratory results Abnormal [facility] Diagnosis of Diabetes-Adults Non-Diabetic: < or = 5.6% Increased risk for developing diabetes: 5.7-6.4% Diagnostic of diabetes: > or = 6.5% [facility] Average glucose Estimated from glycated hemoglobin (Bld) [Mass/Vol] 148 mg/dL Normal Not Established [facility] Comment on above: Order Comment: If val monroe has not had PT + INR in the last 24 hours. Nursing to release order. Performed By: #### 5 902-2 #### ERICA Tam ([id number]) [facility] ([facility]) [address] [place] [address] Hemoglobin A1con 10-16-2023 HbA1c (Bld) [Mass fraction] 6.8 % High see below [facility] Hemoglobin A1c/Hemoglobin.to guero 10-16-2023 HbA1c (Bld) [Mass fraction] 6.8 % High see below [facility] Comment on above: Order Comment: If val monroe has not had PT + INR in the last 24 hours. Nursing to release order. Performed By: #### 5 902-2 #### ERICA Tam ([id number]) [facility] ([facility]) [address] [place], [place] [id number] Heparin Assay, UFHon 024 Heparin unfractionated Chromogenic method Qn (PPP) 0.2 See Comment Below for Therapeutic Ranges IU/mL [facility] Heparin unfractionated Chromogenic method Qn (PPP) 0.1 See Comment Below for Therapeutic Ranges IU/mL [facility] Heparin unfractionated Chromogenic method Qn (PPP) 0.1 See Comment Below for Therapeutic Ranges IU/mL [facility] Heparin unfractionated Chrom ogenic method Qn (PPP)on 10-16-2023 Interpretation and review of laboratory results Normal [facility] The therapeutic reference range for UFH may be either 0.3-0.6 IU/mL or 0.3-0.7 IU/mL based on the clinical setting for anticoagulant therapy and the associated nomogram used. For Heparin dosing guidelines based on clinical scenario and Heparin Assay results, please refer to local Pharmacy and the [facility] Guidelines for Anticoagulation Therapy available on the [facility] intranet at: [email or web address]_ Guidelines_for_Anticoagu .aspx [facility] Interpretation and review of laboratory results Normal [facility] The therapeutic reference range for UFH may be either 0.3-0.6 IU/mL or 0.3-0.7 IU/mL based on the clinical setting for anticoagulant therapy and the associated nomogram used. For Heparin dosing guidelines based on clinical scenario and Heparin Assay results, please refer to local Pharmacy and [facility] Guidelines for Anticoagulation Therapy available on the [facility] intranet at: [email or web address] [email or web address] es/[place]_ Guidelines_for_Anticoagu .aspx [facility] Interpretation and review of laboratory results Normal [facility] The therapeutic reference range for UFH may be either 0.3-0.6 IU/mL or 0.3-0.7 IU/mL based on the clinical setting for anticoagulant therapy and the associated nomogram used. For Heparin dosing guidelines based on clinical scenario and Heparin Assay results, please refer to local Pharmacy and the [facility] Guidelines for Anticoagulation Therapy available on the [facility] intranet at: [email or web address] es/[place]_ Guidelines_for_Anticoagu .aspx [facility] Heparin.unfractionatedon Heparin unfractionated Chromogenic method Qn (PPP) 0.3 IU/mL Normal See Comment Below for Therapeutic Ranges [facility] Comment on above: Order Comment: Prior to initiating heparin if not obtained in prior 48 hours. Nursing to release order. The APTT is no longer used for monitoring Unfractionated Heparin Therapy. For monitoring Heparin Therapy, use the Heparin Assay. Performed By: #### 1 4979-9 #### ERICA Tam ([id number]) [facility] ([facility]) [address] [place] [address] Heparin unfractionated Chromogenic method Qn (PPP) 0.2 IU/mL Normal See Comment Below for Therapeutic Ranges [facility] Comment on above: Order Comment: Prior to initiating heparin if not obtained in prior 48 hours. Nursing to release order. The APTT is no longer used for monitoring Unfractionated Heparin Therapy. For monitoring Heparin Therapy, use the Heparin Assay. Performed By: #### 1 4979-9 #### ERICA Tam ([id number]) [facility] ([facility]) [address] [place] [address] 20453 Heparin unfractionated Chromogenic method Qn (PPP) 0.1 IU/mL Normal See Comment Below for Therapeutic Ranges [facility] Comment on above: Order Comment: If pa yadirant has not had PT + INR in the last 24 hours. Nursing to release order. Performed By: #### 5 902-2 #### ERICA Tam ([id number]) [facility] ([facility]) [address] [place] [address] 72882 Heparin unfractionated Chromogenic method Qn (PPP) 0.1 IU/mL Normal See Comment Below for Therapeutic Ranges [facility] Comment on above: Order Comment: Obtai n [...] please refer to local Pharmacy and the [facility] Guidelines for Anticoagulation Therapy available on the [facility] intranet at: [email or web address] [facility]_Guidelines_for_Anticoagu.aspx Performed By: #### 3 274-8 #### ERICA Tam ([id number]) [facility] ([facility]) [address] [place] [address] 68379 Iron and Iron binding capaci ty panelon 10-16-2023 Interpretation and review of laboratory results Abnormal [facility] Iron [Mass/Vol] 33 ug/dL Low 35 - 150 ug/dL [facility] Comment on above: MILD HEMOLYSIS DETEC ZAID. The result may be falsely elevated due to hemolysis or other interferents. Clinical correlation is recommended. Repeat testing may be considered. Iron binding capacity [Mass/Vol] 285 ug/dL 240 - 445 ug/dL [facility] Iron binding capacity.unsaturated [Mass/Vol] 252 ug/dL 110 - 370 ug/dL [facility] Iron saturation [Mass fraction] 12 % Low 25 - 45 % [facility] Iron [Mass/Vol] 33 ug/dL Low 35-150 [facility] Comment on above: Result Comment: MILD HEMOLYSIS DETECTED. The result may be falsely elevated due to hemolysis or other interferents. Clinical correlation is recommended. Repeat testing may be considered. Performed By: #### 5 902-2 #### ERICA SCHMOTZER L ([id number]) [facility] ([facility]) [address] [place] [address] 18525 Iron binding capacity [Mass/Vol] 285 ug/dL Normal 240-445 [facility] Comment on above: Performed By: #### 5 902-2 #### ERICA SCHMOTZER L ([id number]) [facility] ([facility]) [address] [place] [address] 99316 Iron binding capacity.unsaturated [Mass/Vol] 252 ug/dL Normal 110-370 [facility] Comment on above: Performed By: #### 5 902-2 #### ERICA SCHMOTZER L ([id number]) [facility] ([facility]) [address] [place] [address] Iron saturation [Mass fraction] 12 % Low 25-45 [facility] Comment on above: Performed By: #### 5 902-2 #### ERICA SCHMOTZER L ([id number]) [facility] ([facility]) [id number] [place] [address] 02414 LIPID PANEL NON-FASTINGon Cholesterol [Mass/Vol] 114 mg/dL Normal 0-199 [facility] Comment on above: Result Comment: [...] By: #### L IPIN #### ERICA Tam ([id number]) [facility] ([facility]) [address] [place] [address] Cholesterol in HDL [Mass/Vol] 25.8 mg/dL Normal [facility] Comment on above: Result Comment: Age Very Low Low Normal High 0-19 Y < 35 < 40 40-45 ---- 20-24 Y ---- < 40 >45 ---- >24 Y ---- < 40 40-60 >60 Performed By: #### L IPIN #### ERICA Tam ([id number]) [facility] ([facility]) [address] [place] [address] 55927 CHOLESTEROL/HDL RATIO 4.4 Normal [facility] Comment on above: Result Comment: Ref Values Desirable < 3.4 High Risk > 5.0 Performed By: #### L IPIN #### ERICA Tam ([id number]) [facility] ([facility]) [address] [place] [address] 24352 NON-HDL CHOLESTEROL 88 mg/dL Normal 0-149 [facility] Comment on above: Result Comment: Age Desiable Borderline High High Very High 0-19 Y 0 - 119 120 - 144 >/= 145 >/= 160 20-24 Y 0 - 149 150 - 189 >/= 190 ---- >24 Y 30 MG/DL ABOVE LDL CHOLESTEROL GOAL Performed By: #### L IPIN #### ERICA Tam ([id number]) [facility] ([facility]) [address] [place] [address] Lipid Panel Non-Fastingon Cholesterol [Mass/Vol] 114 mg/dL 0 - 1 99 mg/dL [facility] Comment on above: Age Desirable Borderline High High 0-19 Y [...] be performed immediately prior to Metamizole dosing. Cholesterol in HDL [Mass/Vol] 25.8 mg/dL [facility] Comment on above: Age Very Low Low Normal High 0-19 Y < 35 < 40 40-45 ---- 20-24 Y ---- < 40 >45 ---- >24 Y ---- < 40 40-60 >60 Cholesterol.total/Cele sterol in HDL [Mass ratio] 4.4 {ratio} [facility] Comment on above: Ref Values Desirable < 3.4 High Risk > 5.0 Non-HDL Cholesterol 88 mg/dL 0 - 149 mg/dL [facility] Comment on above: Age Desiable Borderline High High Very High 0-19 Y 0 - 119 120 - 144 >/= 145 >/= 160 20-24 Y 0 - 149 150 - 189 >/= 190 ---- >24 Y 30 MG/DL ABOVE LDL CHOLESTEROL GOAL [facility] Magnesiumon 10-16-2023 Magnesium [Mass/Vol] 1.84 mg/dL 1.60 - 2.40 mg/dL [facility] Magnesium [Mass/Vol] 1.84 mg/dL Normal 1.60-2.40 [facility] Comment on above: Performed By: #### 1 4979-9 #### ERICA Tam ([id number]) [facility] ([facility]) [address] [place] [address] Magnesium [Mass/Vol]on 10-15 Interpretation and review of laboratory results Normal [facility] Natriuretic peptide B [Mass/ Vol]on 10-16-2023 Interpretation and review of laboratory results Normal [facility] Natriuretic peptide B (Bld) [Mass/Vol] 88 pg/mL 0 - 99 pg/mL [facility] <100 pg/mL - Heart failure unlikely 100-299 pg/mL - Intermediate probability of acute heart failure exacerbation. Correlate with clinical context and patient history. >=300 pg/mL - Heart Failure likely. Correlate with clinical context and patient history. Biotin interference may cause falsely decreased results. Patients taking a Biotin dose of up to 5 mg/day should refrain from taking Biotin for 24 hours before sample collection. Providers may contact their local laboratory for further information. [facility] Natriuretic peptide B (Bld) [Mass/Vol] 88 pg/mL Normal 0-99 [facility] Comment on above: Order Comment: If val monroe has not had PT + INR in the last 24 hours. Nursing to release order. Performed By: #### 5 902-2 #### ERICA Tam ([id number]) [facility] ([facility]) [address] [place] [address] No Panel Informationon 10-15 [facility] Interpretation and review of laboratory results Normal [facility] Interpretation and review of laboratory results Normal [facility] PT Coag (PPP) [Time]on 10-15 INR Coag (PPP) [Relative time] 1.1 {INR} 0.9 - 1.1 [facility] INR Coag (PPP) [Relative time] 1.1 Normal 0.9-1.1 [facility] Comment on above: Order Comment: If val monroe has not had PT + INR in the last 24 hours. Nursing to release order. Performed By: #### 5 902-2 #### ERICA Tam ([id number]) [facility] ([facility]) [address] [place] [address] Platelets Auto (Bld) [#/Vol] on 10-16-2023 Interpretation and review of laboratory results Normal [facility] Platelets (Bld) [#/Vol] 276 10*3/uL [facility] Platelets (Bld) [#/Vol] 276 x10*3/uL Normal 150-450 [facility] Comment on above: Order Comment: Basel ine platelet count before any heparin given. May discontinue if platelet count already obtained today, or if heparin already administered. Performed By: #### 7 77-3 #### ERICA Tam ([id number]) [facility] ([facility]) [address] [place] [address] Protime-INRon 10-16-2023 PT Coag (PPP) [Time] 12.5 s [facility] Pulmonary function testingOr dered By: Samara Huston on 10-16-2023 FEV1 - Pre 1.62 [facility] Work Phone: FEV1 - Predicted 3.09 [facility] Work Phone: FVC - PRE 1.80 [facility] Work Phone: FVC Predicted 4.08 [facility] Work Phone: [facility] Work Phone: Pulmonary function testingon 10-16-2023 Preserved ratio impa ired spirometry (PRISm), which could be due to restriction or a non-specific pattern. Recommend lung volumes if clinically indicated. [facility] Samara Murdock MD - 10/18/2023 Preserved ratio impaired spirometry (PRISm), which could be due to restriction or a non-specific pattern. Recommend lung volumes if clinically indicated. [facility] Work Phone: Renal function 1999 panelon 10-16-2023 Albumin BCP dye [Mass/Vol] 3.1 g/dL Low 3.4 - 5.0 g/dL [facility] Anion gap [Moles/Vol] 15 mmol/L 10 - 2 0 mmol/L [facility] Calcium [Mass/Vol] 8.2 mg/dL Low 8.6 - 10. 6 mg/dL [facility] Chloride [Moles/Vol] 103 mmol/L 98 - 10 7 mmol/L [facility] CO2 [Moles/Vol] 24 mmol/L 21 - 32 mmol/L [facility] Creatinine [Mass/Vol] 1.52 mg/dL High 0.50 - 1.30 mg/dL [facility] GFR/1.73 sq M.predicted among non-blacks MDRD (S/P/Bld) [Vol rate/Area] 49 mL/min/{1.73_m2} Low - PINF [facility] Comment on above: Calculations of mercedez mated GFR are performed using the 2020 CKD-EPI Study Refit equation without the race variable for the IDMS-Traceable creatinine methods. https://jasn.asnjournals.org/content//ASN.2020 669065 Glucose [Mass/Vol] 229 mg/dL High 74 - 99 mg/dL [facility] Interpretation and review of laboratory results Abnormal [facility] Phosphate [Mass/Vol] 3.1 mg/dL 2.5 - 4 .9 mg/dL [facility] Comment on above: The performance cecilia acteristics of phosphorus testing in heparinized plasma have been validated by the individual laboratory site where testing is performed. Testing on heparinized plasma is not approved by the FDA; however, such approval is not necessary. Potassium [Moles/Vol] 4.1 mmol/L 3.5 - 5.3 mmol/L [facility] Sodium [Moles/Vol] 138 mmol/L 136 - 145 mmol/L [facility] Urea nitrogen [Mass/Vol] 32 mg/dL High 6 - 23 mg/dL [facility] Albumin BCP dye [Mass/Vol] 3.1 g/dL Low 3.4-5.0 [facility] Comment on above: Performed By: #### 1 4979-9 #### ERICA Tam ([id number]) [facility] ([facility]) [address] [place] [address]208 Anion gap [Moles/Vol] 15 mmol/L Normal 10-20 [facility] Comment on above: Performed By: #### 1 4979-9 #### ERICA Tam ([id number]) [facility] ([facility]) [address] [place] [address] Calcium [Mass/Vol] 8.2 mg/dL Low 8.6-10.6 [facility] Comment on above: Performed By: #### 1 4979-9 #### ERICA Tam ([id number]) [facility] ([facility]) [address] [place] [address] Chloride [Moles/Vol] 103 mmol/L Normal 98-107 [facility] Comment on above: Performed By: #### 1 4979-9 #### ERICA MCDONALD L ([id number]) [facility] ([facility]) [address] [place] [address] CO2 [Moles/Vol] 24 mmol/L Normal 21-32 [facility] Comment on above: Performed By: #### 1 4979-9 #### ERICA MCDONALD L ([id number]) [facility] ([facility]) [address] [place] [address] Creatinine [Mass/Vol] 1.52 mg/dL High 0.50-1.30 [facility] Comment on above: Performed By: #### 1 4979-9 #### ERICA Tam ([id number]) [facility] ([facility]) [address] [place] [address]8864 Glomerular filtration rate/1.73 sq M.predicted 49 mL/min/1.73m*2 Low >60 [facility] Comment on above: Result Comment: Calc ulations of estimated GFR are performed using the 2020 CKD-EPI Study Refit equation without the race variable for the IDMS-Traceable creatinine methods. https://jasn.asnjournals.org/content//ASN.2020 694000 Performed By: #### 1 4979-9 #### ERICA Tam ([id number]) [facility] ([facility]) [address] [place] [address] Glucose [Mass/Vol] 229 mg/dL High 74-99 [facility] Comment on above: Performed By: #### 1 4979-9 #### ERICA MCDONALD L ([id number]) [facility] ([facility]) [address] [place] [address] Phosphate [Mass/Vol] 3.1 mg/dL Normal 2.5-4.9 [facility] Comment on above: Result Comment: The performance characteristics of phosphorus testing in heparinized plasma have been validated by the individual laboratory site where testing is performed. Testing on heparinized plasma is not approved by the FDA; however, such approval is not necessary. Performed By: #### 1 4979-9 #### ERICA Tam ([id number]) [facility] ([facility]) [address] [place] [address] Potassium [Moles/Vol] 4.1 mmol/L Normal 3.5-5.3 [facility] Comment on above: Performed By: #### 1 4979-9 #### ERICA Tam ([id number]) [facility] ([facility]) [address] [place] [address] 86262 Sodium [Moles/Vol] 138 mmol/L Normal 136-145 [facility] Comment on above: Performed By: #### 1 4979-9 #### ERICA Tam ([id number]) [facility] ([facility]) [address] [place] [address] 13764 Urea nitrogen [Mass/Vol] 32 mg/dL High 6-23 [facility] Comment on above: Performed By: #### 1 4979-9 #### ERICA Tam ([id number]) [facility] ([facility]) [address] [place] [address] Staphylococcus aureus.methic illin resistant isolateon 10-16-2023 MRSA isol Org specific cx Ql (Nose) Test: Staphylococcus aureus/MRSA colonization, Culture Specimen Source: Anterior Nares Specimen Type: Swab Specimen Date: 10/16/2023 1023 Result Date: 10/17/2023 1257 Result Status: Final result Abnormal: No Resulting Lab: [facility] [address] [place] [address] CULTURE No Staphylococcus aureus isolated [facility] Comment on above: Performed By: #### 2 4323-8 #### ERICA Tam ([id number]) [facility] ([facility]) [address] [place], [place] [id number] TSH WITH REFLEX TO FREE T4 I F ABNORMALon 10-16-2023 TSH Qn 6.30 m[IU]/L High 0.44-3.98 [facility] Comment on above: Order Comment: TSH t esting is performed using different testing methodology at [facility] than at [facility]. Direct result comparisons should only be made within the same method. Performed By: #### T HYDS #### ERICA Tam ([id number]) [facility] ([facility]) [address] [place], [place] [address] TSH with reflex to Free T4 i f abnormalon 10-16-2023 Interpretation and review of laboratory results Abnormal [facility] TSH Qn 6.30 m[IU]/L High [facility] TSH testing is perfo rmed using different testing methodology at [facility] than at [facility]. Direct result comparisons should only be made within the same method. [facility] Thyroxine, Freeon 10-16-2023 Free T4 [Mass/Vol] 1.20 ng/dL 0.78 - 1. 48 ng/dL [facility] Thyroxine.freeon 10-16-2023 Free T4 [Mass/Vol] 1.20 ng/dL Normal 0.78-1.48 [facility] Comment on above: Order Comment: If val monroe has not had PT + INR in the last 24 hours. Nursing to release order. Performed By: #### 5 902-2 #### ERICA Tam ([id number]) [facility] ([facility]) [address] [place], [place] [address] Tropinin I.cardiac panel Hig h sensitivity methodon 10-16-2023 Interpretation and review of laboratory results Abnormal [facility] Less than 99th percentile of normal range cutoff- Female and children under 18 years old <35 ng/L; Male <54 ng/L: Negative Repeat testing should be performed if clinically indicated. Female and children under 18 years old 35-120 ng/L; Male 54-120 ng/L: Consistent with possible cardiac damage and possible increased clinical risk. Serial measurements may help to assess extent of myocardial damage. >120 ng/L: Consistent with cardiac damage, increased clinical risk and myocardial infarction. Serial measurements may help assess extent of myocardial damage. NOTE: Children less than 1 year old may have higher baseline troponin levels and results should be interpreted in conjunction with the overall clinical context. NOTE: Troponin I testing is performed using a different testing methodology at [facility] than at other [facility]. Direct result comparisons should only be made within the same method. [facility] Troponin I, High Sensitivity on 10-16-2023 Tropinin I.cardiac panel High sensitivity method 916 ng/L Critically high 0 - 53 ng/L [facility] Troponin I.cardiac panelon 0 10-16-2023 Tropinin I.cardiac panel High sensitivity method 916 ng/L Critically high 0-53 [facility] Comment on above: Order Comment: If val monroe has not had PT + INR in the last 24 hours. Nursing to release order. Performed By: #### 5 902-2 #### ERICA Tam ([id number]) [facility] ([facility]) [address] [place] [address] Urinalysis complete W Reflex Culture panel (U)on 10-16-2023 Appearance (U) Clear Clear [facility] Bilirubin (U) [Mass/Vol] Negative NEGATIVE [facility] Color (U) Light-Yellow Light-Yellow , Yellow, Dark-Yellow [facility] Glucose Auto test strip (U) [Mass/Vol] 50 (TRACE) Abnormal Normal mg/dL [facility] Interpretation and review of laboratory results Abnormal [facility] Ketones (U) [Mass/Vol] Negative NEGAT LE mg/dL [facility] Leukocyte esterase Auto test strip Ql (U) Negative NEGATIVE [facility] Mucus Auto (Urine sed) [#/Area] FEW Reference range not established. /LPF [facility] Nitrite Auto test strip Ql (U) Negative NEGATIVE [facility] pH (U) 5.0 [pH] 5.0, 5.5, 6.0, 6.5, 7.0, 7.5, 8.0 [facility] Protein (U) [Mass/Vol] 10 (TRACE) NEGAT LE, 10 (TRACE), 20 (TRACE) mg/dL [facility] RBC (U) [#/Vol] Negative NEGATIVE [facility] RBC Auto (Urine sed) [#/Area] NONE NONE, 1-2, 3-5 /HPF [facility] Specific gravity (U) [Rel density] 1.026 1.005 - 1.035 [facility] Urobilinogen (U) [Mass/Vol] Normal Normal mg/dL [facility] WBC Auto (Urine sed) [#/Area] 1-5 1-5, NONE /HPF [facility] Appearance (U) Clear Normal Clear [facility] Comment on above: Performed By: #### 5 8077-9 #### ERICA Tam ([id number]) [facility] ([facility]) [address] [place] [address] 64257 Bilirubin (U) [Mass/Vol] Negative Normal NEGATIVE [facility] Comment on above: Performed By: #### 5 8077-9 #### ERICA Tam ([id number]) [facility] ([facility]) [address] [place] [address] 74038 Color (U) Light-Yellow Normal Light-Yellow , Yellow, Dark-Yellow [facility] Comment on above: Performed By: #### 5 8077-9 #### ERICA Tam ([id number]) [facility] ([facility]) [address] [place] [address] 87408 Glucose Auto test strip (U) [Mass/Vol] 50 (TRACE) Abnormal Normal [facility] Comment on above: Performed By: #### 5 8077-9 #### ERICA Tam ([id number]) [facility] ([facility]) [address] [place] [address] 47038 Ketones (U) [Mass/Vol] Negative Normal NEGATIVE Un [facility] Comment on above: Performed By: #### 5 8077-9 #### ERICA Tam ([id number]) [facility] ([facility]) [address] [place] [address] 87112 Leukocyte esterase Auto test strip Ql (U) Negative Normal NEGATIVE [facility] Comment on above: Performed By: #### 5 8077-9 #### ERICA Tam ([id number]) [facility] ([facility]) [address] [place] [address] 42227 Mucus Auto (Urine sed) [#/Area] FEW Normal Reference range not established. [facility] Comment on above: Performed By: #### 5 8077-9 #### ERICA Tam ([id number]) [facility] ([facility]) [address] [place] [address] 50181 Nitrite Auto test strip Ql (U) Negative Normal NEGATIVE [facility] Comment on above: Performed By: #### 5 8077-9 #### ERICA Tam ([id number]) [facility] ([facility]) [address] [place] [address] 15850 pH (U) 5.0 [pH] Normal 5.0, 5.5, 6.0, 6.5, 7.0, 7.5, 8.0 [facility] Comment on above: Performed By: #### 5 8077-9 #### ERICA Tam ([id number]) [facility] ([facility]) [address] [place] [address] 22048 Protein (U) [Mass/Vol] 10 (TRACE) Normal NEGAT LE, 10 (TRACE), 20 (TRACE) [facility] Comment on above: Performed By: #### 5 8077-9 #### ERICA Tam ([id number]) [facility] ([facility]) [address] [place] [address] 30221 RBC (U) [#/Vol] Negative Normal NEGATIVE [facility] Comment on above: Performed By: #### 5 8077-9 #### ERICA Tam ([id number]) [facility] ([facility]) [address] [place] [address] 20169 RBC Auto (Urine sed) [#/Area] NONE Normal NONE, 1-2, 3-5 [facility] Comment on above: Performed By: #### 5 8077-9 #### ERICA Tam ([id number]) [facility] ([facility]) [address] [place] [address] Specific gravity (U) [Rel density] 1.026 Normal 1.005-1.035 [facility] Comment on above: Performed By: #### 5 8077-9 #### ERICA Tam ([id number]) [facility] ([facility]) [address] [place] [address] 39378 Urobilinogen (U) [Mass/Vol] Normal Normal Normal [facility] Comment on above: Performed By: #### 5 8077-9 #### ERICA Tam ([id number]) [facility] ([facility]) [address] [place] [address] 39277 WBC Auto (Urine sed) [#/Area] 1-5 Normal 1-5, NONE [facility] Comment on above: Performed By: #### 5 8077-9 #### ERICA Tam ([id number]) [facility] ([facility]) [address] [place] [address] 07452 Vitamin B12on 10-16-2023 Cobalamin (Vitamin B12) [Mass/Vol] 201 pg/mL Low 211 - 911 pg/mL [facility] XR CHEST 2 VIEWSon 4 XR CHEST 2 VIEWS Interpreted By: Rex Ballesteros, STUDY: XR CHEST 2 VIEWS; 10/16/2023 2:01 pm INDICATION: Signs/Symptoms:CABG evaluation. COMPARISON: None. ACCESSION NUMBER(S): [id number] ORDERING CLINICIAN: CATIA PATTON FINDINGS: CARDIOMEDIASTINAL SILHOUETTE: Cardiomegaly versus pericardial effusion. Right hilar calcifications. LUNGS: Low lung volumes with perihilar bibasilar atelectasis/effusions. ABDOMEN: No remarkable upper abdominal findings. BONES: No acute osseous changes. IMPRESSION: 1. Cardiomegaly with pulmonary edema and correlate with cardiac and fluid status. Signed by: Rex Ballesteros 10/18/2023 7:12 AM Dictation workstation: [id number] [facility] XR Chest 2 Viewson 4 Radiology Study observation (narrative) [facility] Work Phone: aPTT - baselineon 10-16-2023 aPTT Coag (PPP) [Time] 30 s Un [facility] aPTT Coag (PPP) [Time]on The APTT is no longe r used for monitoring Unfractionated Heparin Therapy. For monitoring Heparin Therapy, use the Heparin Assay. [facility] Activated partial thrombopla stin time (aPTT) in platelet poor plasma by coagulation aOrdered By: Ann Henao on 10-15-2023 aPTT Coag (PPP) [Time] 45.5 s High 25.1-36.5 [facility] Comment on above: A hematocrit value g reater than 55% may lead to inaccurate results in coagulation testing. Patients having hematocrit values >55% require a special collection tube for coagulation studies. Please contact the laboratory at [phone] for redraw instructions. Alanine aminotransferase [En zymatic activity/volume] in Serum or PlasmaOrdered By: Alondra Gonzales on 10-15-2023 ALT [Catalytic activity/Vol] 17 U/L Normal 7-52 [facility] Comment on above: Performed By: #### G LULS #### Point of Care testing , Albumin [Mass/volume] in Ser um or Plasma by Bromocresol green (BCG) dye binding methoOrdered By: Alondra Gonzales on 10-15-2023 Albumin BCG dye [Mass/Vol] 3.4 g/dL Low 3.5-5.7 [facility] Alkaline phosphatase [Enzyma tic activity/volume] in Serum or PlasmaOrdered By: Alondra Gonzales on 10-15-2023 ALP [Catalytic activity/Vol] 62 U/L Normal 34-104 [facility] Comment on above: Performed By: #### G LULS #### Point of Care testing , Aspartate aminotransferase [ Enzymatic activity/volume] in Serum or PlasmaOrdered By: Alondra Gonzales on 10-15-2023 AST [Catalytic activity/Vol] 16 U/L Normal 13-39 [facility] Comment on above: Performed By: #### G LULS #### Point of Care testing , Automated basophil %Ordered By: Alondra Gonzales on 10-15-2023 Basophils/100 WBC (Bld) 1.0 % Normal . [facility] Comment on above: Performed By: #### C BC #### [address] Automated basophil countOrde red By: Alondra Gonzales on 10-15-2023 Basophils (Bld) [#/Vol] 0.1 10*3/uL Normal 0.0-0.2 [facility] Comment on above: Result Comment: PERF ORMED BY: [place] [address] PATHOLOGIST [employer] DIRECT[employer] WOLFGANG JOHNSON M.D. Performed By: #### C BC #### [address] Automated blood monocyte cou ntOrdered By: Alondra Gonzales on 10-15-2023 Monocytes (Bld) [#/Vol] 0.9 10*3/uL High 0.0-0.8 [facility] Comment on above: Performed By: #### C BC #### [address] Automated eosinophil %Ordere d By: Alondra Gonzales on 10-15-2023 Eosinophils/100 WBC (Bld) 3.7 % Normal . [facility] Comment on above: Performed By: #### C BC #### [address] Automated eosinophil countOr dered By: Alondra Gonzales on 10-15-2023 Eosinophils (Bld) [#/Vol] 0.4 10*3/uL Normal 0.0-0.45 [facility] Comment on above: Performed By: #### C BC #### [address] Automated monocyte %Ordered By: Alondra Gonzales on 10-15-2023 Monocytes/100 WBC (Bld) 9.3 % Normal . [facility] Comment on above: Performed By: #### C BC #### [address] [place] [address] [place] Automated neutrophil %Ordere d By: Alondra Gonzales on 10-15-2023 Neutrophils/100 WBC (Bld) 74.1 % Normal . [facility] Comment on above: Performed By: #### C BC #### [facility] [address] Bilirubin.total [Mass/volume ] in Serum or PlasmaOrdered By: Alondra Gonzales on 10-15-2023 Bilirubin [Mass/Vol] 0.4 mg/dL Normal 0.3-1.0 [facility] Comment on above: Performed By: #### G LULS #### Point of Care testing , Calcium [Mass/volume] in Ser um or PlasmaOrdered By: Alondra Gonzales on 10-15-2023 Calcium [Mass/Vol] 8.1 mg/dL Low 8.6-10.[address] [facility] Comment on above: Performed By: #### G LULS #### Point of Care testing , Capillary blood glucose jose urement by glucometer (mass/volume)Ordered By: Yovanny Rivera on 10-15-2023 Glucose [Mass/Vol] 277 mg/dL Normal [facility] Comment on above: Random Glucose Refer ence Range is dependent on time and content of last meal. Glucose of more than 200 mg/dL in a nonstressed, ambulatory subject supports the diagnosis of Diabetes Mellitus. Result Comment: [place] Glucose Reference Range is dependent on time and content of last meal. Glucose of more than 200 mg/dL in a nonstressed, ambulatory subject supports the diagnosis of Diabetes Mellitus. PERFORMED BY: [place] [address] PATHOLOGIST [employer] DIRECT[employer] WOLFGANG JOHNSON M.D. Performed By: #### C BC, ESR #### [address] Carbon dioxide, total [Moles /volume] in Serum or PlasmaOrdered By: Alondra Gonzales on 10-15-2023 CO2 [Moles/Vol] 28.2 mmol/L Normal 21.0-31.0 [facility] Comment on above: Performed By: #### G LULS #### Point of Care testing , Chloride [Moles/volume] in S teodoro or PlasmaOrdered By: Alondra Gonzales on 10-15-2023 Chloride [Moles/Vol] 104 mmol/L Normal 98-107 [facility] Comment on above: Performed By: #### G LULS #### Point of Care testing , Complete Blood Count Auto Di ffon 10-15-2023 Mean Corpuscular HGB Conc 33.4 g/dL Normal 32.5-35.6 [facility] Comment on above: Performed By: #### C BC #### [facility] [address] [place] [address] NRBC% 0.1 /100{WBC} Normal 0-0.5 [facility] Comment on above: Performed By: #### C BC #### [facility] [address] [place] [address] Comprehensive Metabolic Pane laxmi 10-15-2023 Albumin [Mass/Vol] 3.4 g/dL Low 3.5-5.7 [facility] Comment on above: Performed By: #### G LULS #### Point of Care testing , Creatinine Clr Calc Pharmacy 51.77 Normal [facility] Comment on above: Performed By: #### G LULS #### Point of Care testing , GFR/1.73 sq M.predicted MDRD (S/P/Bld) [Vol rate/Area] 43.716 mL/min/{1.73_m2} Normal [facility] Comment on above: Performed By: #### G LULS #### Point of Care testing , Creatinine [Mass/volume] in Serum or PlasmaOrdered By: Alondra Gonzales on 10-15-2023 Creatinine [Mass/Vol] 1.68 mg/dL High 0.70-1.30 [facility] Comment on above: Performed By: #### G LULS #### Point of Care testing , ECH echo transthoracicon ECH echo transthoracic [facility] Main [place] [address] [place] [address] Echocardiogram Signed Patient: Italia Allen MR#: [id number] : 1955 Acct:[id number] Age/Sex: 68 / M ADM Date: 10/14/23 Loc: Room: [address] [place] [address] Type: ADM IN Attending Dr: Yovanny Rivera MD Ordering Provider: Alondra Gonzales MD Date of Service: 10/14/23 ECH/ECH echo transthoracic: CHF exacerbation Copies to: MD Alondra Lopez MD Italia Choi 10:19 AM Patient Location: : 1955 Gender: Male (MM/DD/YYYY) Age: 68 Years Ordering Physician: Alondra Gonzales Height: 69.69 in Weight: 247.378 lb Performed By: Chrissy Smallwood BSA: 2.28 m2 BP: 155 / 79 mmHg HR: 75 bpm Reason For Study: CHF exacerbation History: HTN, HLD, DM, Obesity, CHF + ----+ Interpretation Summary Ejection Fraction = 45-50%. The [...] mmHg LV V1 VTI: 20.1 cm + -+ + ---+ -+ : Electronically : : : : signed by: Diogenes : : Gerri : : : : : : on: 10/15/2023, : : 6:54 PM : Transcribed By: SCV Performed At: 10/15/23 1019 Signed By: Diogenes Talley MD 10/15/23 2236 Normal [facility] Erythrocyte distribution wid th [Ratio] by Automated countOrdered By: Alondra Gonzales on 10-15-2023 Erythrocyte distribution width (RBC) [Ratio] 15.1 % High 12.0-14.8 [facility] Comment on above: Performed By: #### C BC #### [facility] [address] [place] [address] Erythrocytes [#/volume] in B lood by Automated countOrdered By: Alondra Gonzales on 10-15-2023 RBC (Bld) [#/Vol] 3.97 10*6/uL Normal 3.90-5.60 [facility] Comment on above: Performed By: #### C BC #### [facility] [address] [place] [address] Glucose Poct Glucometerson 0 10-15-2023 Commemt1 Glu2: Cleaned Meter Normal [facility] Comment on above: Result Comment: PERF ORMED BY: [place] [address] PATHOLOGIST [employer] DIRECT[employer] WOLFGANG JOHNSON M.D. Performed By: #### G LULS #### Point of Care testing , Glucose [Mass/Vol] 303 mg/dL Normal [facility] Comment on above: Result Comment: [place] om Glucose Reference Range is dependent on time and content of last meal. Glucose of more than 200 mg/dL in a nonstressed, ambulatory subject supports the diagnosis of Diabetes Mellitus. Performed By: #### G LULS #### Point of Care testing , Commemt1 Glu2: Cleaned Meter Normal [facility] Comment on above: Result Comment: PERF ORMED BY: [place] [address] PATHOLOGIST [employer] DIRECTOR WOLFGANG JOHNSON M.D. Performed By: #### G LULS #### Point of Care testing , Glucose [Mass/Vol] 257 mg/dL Normal [facility] Comment on above: Result Comment: [place] om Glucose Reference Range is dependent on time and content of last meal. Glucose of more than 200 mg/dL in a nonstressed, ambulatory subject supports the diagnosis of Diabetes Mellitus. Performed By: #### G LULS #### Point of Care testing , Commemt1 Glu2: Cleaned Meter Normal [facility] Comment on above: Result Comment: PERF ORMED BY: [place] [address] PATHOLOGIST [employer] DIRECTOR WOLFGANG JOHNSON M.D. Performed By: #### G LULS #### Point of Care testing , Glucose [Mass/Vol] 159 mg/dL Normal [facility] Comment on above: Result Comment: [place] om Glucose Reference Range is dependent on time and content of last meal. Glucose of more than 200 mg/dL in a nonstressed, ambulatory subject supports the diagnosis of Diabetes Mellitus. Performed By: #### G LULS #### Point of Care testing , Glucose [Mass/volume] in Ser um or PlasmaOrdered By: Alondra Gonzales on 10-15-2023 Glucose [Mass/Vol] 120 mg/dL Significant change up 70-100 [facility] Comment on above: Delta: 220 on -7ADA recommended reference rangeRandom Glucose Reference Range is dependent on time and content of last meal. Glucose of more than 200 mg/dL in a nonstressed, ambulatory subject supports the diagnosis of Diabetes Mellitus. Result Comment: [place] om Glucose Reference Range is dependent on [...] (Bld) [Volume fraction] 35.0 % Low 38.8-50.0 [facility] Comment on above: Performed By: #### C BC #### [facility] [address] [place] [address] Hemoglobin [Mass/volume] in BloodOrdered By: Alondra Gonzales on 10-15-2023 Hemoglobin (Bld) [Mass/Vol] 11.7 g/dL Low 13.0-17.0 [facility] Comment on above: Performed By: #### C BC #### [facility] [address] [place] [address] INR in Platelet poor plasma by Coagulation assayOrdered By: Alondra Gonzales on 10-15-2023 INR Coag (PPP) [Relative time] 1.1 {INR} Normal [facility] Comment on above: INR Therapeutic Rang e [...] Performed By: #### P TT, PT #### [address] Leukocytes [#/volume] correc zaid for nucleated erythrocytes in Blood by Automated counOrdered By: Alondra Gonzales on 10-15-2023 WBC corrected for nucl RBC Auto (Bld) [#/Vol] 9.8 10*3/uL 4.1-10.5 [facility] Leukocytes [#/volume] in Blo od by Automated countOrdered By: Alondra Gonzales on 10-15-2023 WBC (Bld) [#/Vol] 9.8 10*3/uL Normal 4.1-10.[address] [facility] Comment on above: Performed By: #### C BC #### [place] [address] [place] Lymphocytes [#/volume] in Bl ood by Automated countOrdered By: Alondra Gonzales on 10-15-2023 Lymphocytes (Bld) [#/Vol] 1.2 10*3/uL Normal 1.00-4.8 [facility] Comment on above: Performed By: #### C BC #### [place] [address] [place] Lymphocytes/100 leukocytes i n Blood by Automated countOrdered By: Alondra Gonzales on 10-15-2023 Lymphocytes/100 WBC (Bld) 11.9 % Normal . [facility] Comment on above: Performed By: #### C BC #### [place] [address] [place] MCH [Entitic mass] by Automa zaid countOrdered By: Alondra Gonzales on 10-15-2023 MCH (RBC) [Entitic mass] 29.4 pg Normal 27.5-35.2 [facility] Comment on above: Performed By: #### C BC #### [facility] [address] [place] [address] MCHC Auto (RBC) [Mass/Vol]Or dered By: Alondra Gonzales on 10-15-2023 MCHC (RBC) [Mass/Vol] 33.4 g/dL 32.5-35.6 [facility] MCV [Entitic volume] by Auto mated countOrdered By: Alondra Gonzales on 10-15-2023 MCV (RBC) [Entitic vol] 87.9 fL Normal 83.5-101 [facility] Comment on above: Performed By: #### C BC #### [facility] [address] [place] [address] Magnesium [Mass/volume] in S teodoro or PlasmaOrdered By: Alondra Gonzales on 10-15-2023 Magnesium [Mass/Vol] 1.7 mg/dL Low 1.9-2.7 [facility] Comment on above: Result Comment: PERF ORMED BY: [address] [place] [address] PATHOLOGIST [employer] SAL[employer] DIRECTOR WOLFGANG JOHNSON M.D. Performed By: #### G LULS #### Point of Care testing , Neutrophils [#/volume] in Bl ood by Automated countOrdered By: Alondra Gonzales on 10-15-2023 Neutrophils (Bld) [#/Vol] 7.3 10*3/uL Normal 1.8-7.7 [facility] Comment on above: Performed By: #### C BC #### [facility] [address] [place] [address] No Panel InformationOrdered By: Yovanny Rivera on 10-15-2023 Bedside Glucose Comment Glu2: cleaned meter [facility] No Panel InformationOrdered By: Alondra Gonzales on 10-15-2023 Estimated GFR (CKD-EPI) 43.716 mL/Min [facility] Creatinine Clearance (Chem 51.77 [facility] Nucleated erythrocytes [Pres ence] in Blood by Automated countOrdered By: Alondra Gonzales on 10-15-2023 Nucleated RBC Auto Ql (Bld) 0.1 /100{WBC} 0-0.5 [facility] Partial Thromboplastin Timeo n 10-15-2023 aPTT Coag (Bld) [Time] 45.5 s High 25.1-36.5 [facility] Comment on above: Result Comment: A he matocrit value greater than 55% may lead to inaccurate results in coagulation testing. Patients having hematocrit values >55% require a special collection tube for coagulation studies. Please contact the laboratory at [phone] for redraw instructions. PERFORMED BY: [place] [address] PATHOLOGIST [employer] SAL[employer] DIRECTOR WOLFGANG JOHNSON M.D. Performed By: #### P TT #### [facility] [address] [place] [address] aPTT Coag (Bld) [Time] 41.7 s High 25.1-36.5 [facility] Comment on above: Order Comment: List the anticoagulant: HEPARIN, UNFRACTIONATED Result Comment: A he matocrit value greater than 55% may lead to inaccurate results in coagulation testing. Patients having hematocrit values >55% require a special collection tube for coagulation studies. Please contact the laboratory at [phone] for redraw instructions. PERFORMED BY: [place] [address] PATHOLOGIST [employer] SAL[employer] DIRECTOR WOLFGANG JOHNSON M.D. Performed By: #### P TT, PT #### [facility] [address] [place] [address] [place] Phosphate [Mass/volume] in S teodoro or PlasmaOrdered By: Alondra Gonzales on 10-15-2023 Phosphate [Mass/Vol] 3.8 mg/dL Normal 2.5-4.5 [facility] Comment on above: Performed By: #### G LULS #### Point of Care testing , Platelet mean volume [Entiti c volume] in Blood by Automated countOrdered By: Alondra Gonzales on 10-15-2023 Platelet mean volume (Bld) [Entitic vol] 7.7 fL Normal 6.6-10.1 [facility] Comment on above: Performed By: #### C BC #### [facility] [address] [place] [address] [place] Platelets [#/volume] in Bloo d by Automated countOrdered By: Alondra Gonzales on 10-15-2023 Platelets (Bld) [#/Vol] 285 10*3/uL Normal 150-450 [facility] Comment on above: Performed By: #### C BC #### [facility] [address] Potassium [Moles/volume] in Serum or PlasmaOrdered By: Alondra Gonzales on 10-15-2023 Potassium [Moles/Vol] 4.1 mmol/L Normal 3.5-5.1 [facility] Comment on above: Performed By: #### G LULS #### Point of Care testing , Protein [Mass/volume] in Ser um or PlasmaOrdered By: Alondra Gonzales on 10-15-2023 Protein [Mass/Vol] 5.6 g/dL Low 6.4-8.[address] [facility] Comment on above: Performed By: #### G LULS #### Point of Care testing , Prothrombin time (PT)Ordered By: Alondra Gonzales on 10-15-2023 PT Coag (PPP) [Time] 12.6 s Normal 9.0-12.9 [facility] Comment on above: A hematocrit value g reater than 55% may lead to inaccurate results in coagulation testing. Patients having hematocrit values >55% require a special collection tube for coagulation studies. Please contact the laboratory at [phone] for redraw instructions. Order Comment: List the anticoagulant: HEPARIN, UNFRACTIONATED Result Comment: A he matocrit value greater than 55% may lead to inaccurate results in coagulation testing. Patients having hematocrit values >55% require a special collection tube for coagulation studies. Please contact the laboratory at [phone] for redraw instructions. Performed By: #### P TT, PT #### [facility] [address] Serum globulin measurement b y calculation (mass/volume)Ordered By: Alondra Gonzales on 10-15-2023 Globulin (S) [Mass/Vol] 2.2 g/dL Normal [facility] Comment on above: Performed By: #### G LULS #### Point of Care testing , Serum or plasma albumin/glob ulin mass ratioOrdered By: Alondra Gonzales on 10-15-2023 Albumin/Globulin [Mass ratio] 1.5 {ratio} Normal [facility] Comment on above: Performed By: #### G LULS #### Point of Care testing , Serum or plasma anion gap de terminationOrdered By: Alondra Gonzales on 10-15-2023 Anion gap [Moles/Vol] 10.9 mmol/L Normal 6.0-15.0 [facility] Comment on above: Performed By: #### G LULS #### Point of Care testing , Sodium [Moles/volume] in Ser um or PlasmaOrdered By: Alondra Gonzales on 10-15-2023 Sodium [Moles/Vol] 139 mmol/L Normal 136-[address] [facility] Comment on above: Performed By: #### G LULS #### Point of Care testing , US renal BIon 10-15-2023 US renal BI [facility] [place] [address] Ultrasound Report Signed Patient: Italia Allen MR#: [id number] : 1955 Acct:[id number] Age/Sex: 68 / M ADM Date: 10/14/23 Loc: Room: [address] [place] [address] Type: ADM IN Attending Dr: Yovanny Rivera [...] Baird Jr., D.O.10/15/2023 9:59 AM Dictation Location: [place] [address] Tech: Rebecca Hein Transcribed By: [facility] 10/15/2359 Dictated By: Jude Baird Jr, DO 10/15/23 0954 Signed By: 10/15/23 09 Normal [facility] Urea nitrogen [Mass/volume] in Serum or PlasmaOrdered By: Alondra Gonzales on 10-15-2023 Urea nitrogen [Mass/Vol] 33 mg/dL High 09-12 [facility] Comment on above: Performed By: #### G RYAN #### Point of Care testing , C reactive protein [Mass/vol ume] in Serum or PlasmaOrdered By: Alondra Gonzales on 10-14-2023 CRP [Mass/Vol] 2.7 mg/dL High 0.0-0.5 [facility] C-Reactive Proteinon 024 C-Reactive Protein 2.7 mg/dL High 0.0-0.5 [facility] Comment on above: Result Comment: PERF ORMED BY: [place] [address] PATHOLOGIST [employer] DIRECTOR WOLFGANG JOHNSON M.D. Performed By: #### C BC, ESR #### [address] Complete Blood Count Auto Di ffon 10-14-2023 Basophils (Bld) [#/Vol] 0.1 10*3/uL Normal 0.0-0.2 [facility] Comment on above: Performed By: #### C BC, ESR #### [place] [address] [place] Basophils/100 WBC (Bld) 1.3 % Normal . [facility] Comment on above: Performed By: #### C BC, ESR #### [place] [address] [place] Eosinophils (Bld) [#/Vol] 0.2 10*3/uL Normal 0.0-0.45 [facility] Comment on above: Performed By: #### C BC, ESR #### [address] Eosinophils/100 WBC (Bld) 3.2 % Normal . [facility] Comment on above: Performed By: #### C BC, ESR #### [address] Erythrocyte distribution width (RBC) [Ratio] 15.4 % High 12.0-14.8 [facility] Comment on above: Performed By: #### C BC, ESR #### [address] Hematocrit (Bld) [Volume fraction] 35.1 % Low 38.8-50.0 [facility] Comment on above: Performed By: #### C BC, ESR #### [address] Hemoglobin (Bld) [Mass/Vol] 11.6 g/dL Low 13.0-17.0 [facility] Comment on above: Performed By: #### C BC, ESR #### [address] Lymphocytes (Bld) [#/Vol] 0.9 10*3/uL Low 1.00-4.8 [facility] Comment on above: Performed By: #### C BC, ESR #### [address] Lymphocytes/100 WBC (Bld) 12.1 % Normal . [facility] Comment on above: Performed By: #### C BC, ESR #### [address] MCH (RBC) [Entitic mass] 29.3 pg Normal 27.5-35.2 [facility] Comment on above: Performed By: #### C BC, ESR #### [address] MCV (RBC) [Entitic vol] 88.7 fL Normal 83.5-101 [facility] Comment on above: Performed By: #### C BC, ESR #### [facility] [address] Mean Corpuscular HGB Conc 33.0 g/dL Normal 32.5-35.6 [facility] Comment on above: Performed By: #### C BC, ESR #### [facility] [address] [place] [address] [place] Monocytes (Bld) [#/Vol] 0.6 10*3/uL Normal 0.0-0.8 [facility] Comment on above: Performed By: #### C BC, ESR #### [facility] [address] [place] [address] [place] Monocytes/100 WBC (Bld) 7.5 % Normal . [facility] Comment on above: Performed By: #### C BC, ESR #### [facility] [address] [place] [address] [place] Neutrophils (Bld) [#/Vol] 5.7 10*3/uL Normal 1.8-7.7 [facility] Comment on above: Performed By: #### C BC, ESR #### [facility] [address] [place] [address] [place] Neutrophils/100 WBC (Bld) 75.9 % Normal . [facility] Comment on above: Performed By: #### C BC, ESR #### [facility] [address] [place] [address] [place] NRBC% 0.1 /100{WBC} Normal 0-0.5 [facility] Comment on above: Performed By: #### C BC, ESR #### [facility] [address] [place] [address] [place] Platelet mean volume (Bld) [Entitic vol] 7.8 fL Normal 6.6-10.1 [facility] Comment on above: Performed By: #### C BC, ESR #### [facility] [address] [place] [address] [place] Platelets (Bld) [#/Vol] 290 10*3/uL Normal 150-450 [facility] Comment on above: Performed By: #### C BC, ESR #### [facility] [address] RBC (Bld) [#/Vol] 3.95 10*6/uL Normal 3.90-5.60 [facility] Comment on above: Performed By: #### C BC, ESR #### [facility] [address] WBC (Bld) [#/Vol] 7.5 10*3/uL Normal 4.1-10.5 [facility] Comment on above: Performed By: #### C BC, ESR #### [facility] [address] [place] [address] [place] Basophils (Bld) [#/Vol] 0.1 10*3/uL Normal 0.0-0.2 [facility] Comment on above: Result Comment: PERF ORMED BY: [place] [address] PATHOLOGIST [employer] SAL[employer] DIRECTOR WOLFGANG JOHNSON M.D. Performed By: #### C BC, ESR #### [facility] [address] [place] [address] [place] Basophils/100 WBC (Bld) 1.3 % Normal . [facility] mar[facility] Comment on above: Performed By: #### C BC, ESR #### [address] Eosinophils (Bld) [#/Vol] 0.3 10*3/uL Normal 0.0-0.45 [facility] Comment on above: Performed By: #### C BC, ESR #### [place] [address] [place] Eosinophils/100 WBC (Bld) 3.4 % Normal . [facility] Comment on above: Performed By: #### C BC, ESR #### [facility] [address] Erythrocyte distribution width (RBC) [Ratio] 15.3 % High 12.0-14.8 [facility] Comment on above: Performed By: #### C BC, ESR #### [address] Hematocrit (Bld) [Volume fraction] 35.3 % Low 38.8-50.0 [facility] Comment on above: Performed By: #### C BC, ESR #### [facility] [address] Hemoglobin (Bld) [Mass/Vol] 11.8 g/dL Low 13.0-17.0 [facility] Comment on above: Performed By: #### C BC, ESR #### [address] Lymphocytes (Bld) [#/Vol] 0.9 10*3/uL Low 1.00-4.8 [facility] Comment on above: Performed By: #### C BC, ESR #### [address] Lymphocytes/100 WBC (Bld) 10.9 % Normal . [facility] Comment on above: Performed By: #### C BC, ESR #### [address] MCH (RBC) [Entitic mass] 29.5 pg Normal 27.5-35.2 [facility] Comment on above: Performed By: #### C BC, ESR #### [address] MCV (RBC) [Entitic vol] 87.9 fL Normal 83.5-101 [facility] Comment on above: Performed By: #### C BC, ESR #### [address] Mean Corpuscular HGB Conc 33.5 g/dL Normal 32.5-35.6 [facility] Comment on above: Performed By: #### C BC, ESR #### [address] Monocytes (Bld) [#/Vol] 0.6 10*3/uL Normal 0.0-0.8 [facility] Comment on above: Performed By: #### C BC, ESR #### [facility] [address] [place] [address] [place] Monocytes/100 WBC (Bld) 7.5 % Normal . T marlee [facility] Comment on above: Performed By: #### C BC, ESR #### [facility] [address] [place] [address] [place] Neutrophils (Bld) [#/Vol] 6.0 10*3/uL Normal 1.8-7.7 [facility] Comment on above: Performed By: #### C BC, ESR #### [facility] [address] Neutrophils/100 WBC (Bld) 76.9 % Normal . [facility] Comment on above: Performed By: #### C BC, ESR #### [facility] [address] NRBC% 0.1 /100{WBC} Normal 0-0.5 [facility] Comment on above: Performed By: #### C BC, ESR #### [place] [address] [place] Platelet mean volume (Bld) [Entitic vol] 7.8 fL Normal 6.6-10.1 [facility] Comment on above: Performed By: #### C BC, ESR #### [facility] [address] [place] [address] [place] Platelets (Bld) [#/Vol] 288 10*3/uL Normal 150-450 [facility] Comment on above: Performed By: #### C BC, ESR #### [facility] [address] [place] [address] [place] RBC (Bld) [#/Vol] 4.01 10*6/uL Normal 3.90-5.60 [facility] Comment on above: Performed By: #### C BC, ESR #### [facility] [address] [place] [address] [place] WBC (Bld) [#/Vol] 7.8 10*3/uL Normal 4.1-10.5 [facility] Comment on above: Performed By: #### C BC, ESR #### [address] Comprehensive Metabolic Pane laxmi 10-14-2023 Albumin [Mass/Vol] 3.3 g/dL Low 3.5-5.7 [facility] Comment on above: Performed By: #### C BC, ESR #### [address] Albumin/Globulin [Mass ratio] 1.4 {ratio} Normal [facility] Comment on above: Performed By: #### C BC, ESR #### [address] ALP [Catalytic activity/Vol] 59 U/L Normal 34-104 [facility] Comment on above: Performed By: #### C BC, ESR #### [address] ALT [Catalytic activity/Vol] 17 U/L Normal 7-52 [facility] Comment on above: Performed By: #### C BC, ESR #### [address] Anion gap [Moles/Vol] 10.6 mmol/L Normal 6.0-15.0 [facility] Comment on above: Performed By: #### C BC, ESR #### [address] AST [Catalytic activity/Vol] 16 U/L Normal 13-39 [facility] Comment on above: Performed By: #### C BC, ESR #### [address] Bilirubin [Mass/Vol] 0.5 mg/dL Normal 0.3-1.0 [facility] Comment on above: Performed By: #### C BC, ESR #### [address] Calcium [Mass/Vol] 8.2 mg/dL Low 8.6-10.3 [facility] Comment on above: Performed By: #### C BC, ESR #### [place] [address] [place] Chloride [Moles/Vol] 106 mmol/L Normal 98-107 [facility] Comment on above: Performed By: #### C BC, ESR #### [address] CO2 [Moles/Vol] 28.5 mmol/L Normal 21.0-31.0 [facility] Comment on above: Performed By: #### C BC, ESR #### [address] Creatinine [Mass/Vol] 1.61 mg/dL High 0.70-1.30 [facility] Comment on above: Performed By: #### C BC, ESR #### [address] Creatinine Clr Calc Pharmacy 54.02 Normal [facility] Comment on above: Performed By: #### C BC, ESR #### [address] GFR/1.73 sq M.predicted MDRD (S/P/Bld) [Vol rate/Area] 46.006 mL/min/{1.73_m2} Normal [facility] Comment on above: Performed By: #### C BC, ESR #### [address] Globulin (S) [Mass/Vol] 2.3 g/dL Normal [facility] Comment on above: Performed By: #### C BC, ESR #### [address] Glucose [Mass/Vol] 220 mg/dL High 70-100 [facility] Comment on above: Result Comment: [place] Glucose Reference Range is dependent on time and content of last meal. Glucose of more than 200 mg/dL in a nonstressed, ambulatory subject supports the diagnosis of Diabetes Mellitus. ADA recommended reference range Performed By: #### C BC, ESR #### [address] Potassium [Moles/Vol] 4.1 mmol/L Normal 3.5-5.1 [facility] Comment on above: Performed By: #### C BC, ESR #### [facility] [address] Protein [Mass/Vol] 5.6 g/dL Low 6.4-8.9 [facility] Comment on above: Performed By: #### C BC, ESR #### [facility] [address] Sodium [Moles/Vol] 141 mmol/L Normal 136-145 [facility] Comment on above: Performed By: #### C BC, ESR #### [facility] [address] Urea nitrogen [Mass/Vol] 31 mg/dL High 7-25 [facility] Comment on above: Performed By: #### C BC, ESR #### [facility] [address] ECG 12 lead ECGon 10-14-2023 ECG 12 lead ECG [facility] [place] [address] [place] [address] Electrocardiograph Report Signed Patient: Italia Allen MR#: [id number] : 1955 Acct:[id number] Age/Sex: 68 / M ADM Date: 10/14/23 Loc: Room: [address] [place] [address] Type: DIS IN Attending Dr: Yovanny Rivera [...] previous ECGs available Confirmed by Diogenes Talley ([id number]) on 10/16/2023 10:19:42 PM Referred By: Electronically Signed By: Diogenes Talley Transcribed By: MUS Signed By Diogenes Talley MD 10/16/239 Normal [facility] Erythrocyte Sedimentation Ra clarice 10-14-2023 ESR (Bld) [Velocity] 22 mm/h High 0-19 [facility] Comment on above: Result Comment: PERF ORMED BY: [place] [address] PATHOLOGIST [employer] SAL[employer] DIRECTOR WOLFGANG JOHNSON M.D. Performed By: #### C BC, ESR #### [facility] [address] [place] [address] Erythrocyte sedimentation ra te by Photometric methodOrdered By: Alondra Gonzales on 10-14-2023 ESR Photometric method (Bld) [Velocity] 22 mm/hr High 0-19 [facility] Glucose Poct Glucometerson 0 10-14-2023 Glucose [Mass/Vol] 306 mg/dL Normal [facility] Comment on above: Result Comment: [facility] Glucose Reference Range is dependent on time and content of last meal. Glucose of more than 200 mg/dL in a nonstressed, ambulatory subject supports the diagnosis of Diabetes Mellitus. PERFORMED BY: [place] [address] PATHOLOGIST [employer] SALES DIRECTOR WOLFGANG JOHNSON M.D. Performed By: #### G LULS #### Point of Care testing , Glucose [Mass/Vol] 221 mg/dL Normal [facility] Comment on above: Result Comment: [facility] Glucose Reference Range is dependent on time and content of last meal. Glucose of more than 200 mg/dL in a nonstressed, ambulatory subject supports the diagnosis of Diabetes Mellitus. PERFORMED BY: [place] [address] PATHOLOGIST [employer] SAL[employer] DIRECTOR WOLFGANG JOHNSON M.D. Performed By: #### G LULS #### Point of Care testing , Magnesiumon 10-14-2023 Magnesium [Mass/Vol] 1.7 mg/dL Low 1.9-2.7 [facility] Comment on above: Performed By: #### C BC, ESR #### [facility] [address] [place] [address] [place] Partial Thromboplastin Timeo n 10-14-2023 aPTT Coag (Bld) [Time] 35.7 s Normal 25.1-36.5 [facility] Comment on above: Result Comment: A he matocrit value greater than 55% may lead to inaccurate results in coagulation testing. Patients having hematocrit values >55% require a special collection tube for coagulation studies. Please contact the laboratory at [phone] for redraw instructions. PERFORMED BY: [place] [address] PATHOLOGIST [employer] SAL[employer] DIRECTOR WOLFGANG JOHNSON M.D. Performed By: #### P TT #### [address] aPTT Coag (Bld) [Time] 31.1 s Normal 25.1-36.5 [facility] Comment on above: Result Comment: A he matocrit value greater than 55% may lead to inaccurate results in coagulation testing. Patients having hematocrit values >55% require a special collection tube for coagulation studies. Please contact the laboratory at [phone] for redraw instructions. PERFORMED BY: [place] [id number] PATHOLOGIST [employer] SAL[employer] DIRECTOR WOLFGANG JOHNSON M.D. Performed By: #### C BC, ESR #### [place] [id number] [facility] Prothrombin Time INRon 10-13 INR Coag (PPP) [Relative time] 1.1 {INR} Normal [facility] Comment on above: [...] Performed By: #### C BC, ESR #### [place] [id number] [facility] PT Coag (PPP) [Time] 13.0 s High 9.0-12.9 [facility] Comment on above: Result Comment: A he matocrit value greater than 55% may lead to inaccurate results in coagulation testing. Patients having hematocrit values >55% require a special collection tube for coagulation studies. Please contact the laboratory at [phone] for redraw instructions. Performed By: #### C BC, ESR #### [place] [address] [place] Troponin I High Sensitivityo n 10-14-2023 Troponin I High Sensitivity 1682.8 pg/mL Off scale high 0.0-20.0 [facility] Comment on above: Result Comment: Crit ical Result : Called to and read back by: JAREK REESE at: 10/14/2023 12:42:52 by:ADRIENNE PERFORMED BY: [place] [address] PATHOLOGIST [employer] SAL[employer] DIRECTOR WOLFGANG JOHNSON M.D. Performed By: #### C BC, ESR #### [address] Troponin I.cardiac [Mass/vol ume] in Serum or Plasma by Detection limit <= 0.01 ng/Ordered By: Alondra Gonzales on 10-14-2023 Troponin I.cardiac DL <= 0.01 ng/mL [Mass/Vol] 1682.8 pg/mL High 0.0-20.0 [facility] Comment on above: Critical Result : Ca lled to and read back by: JAREK REESE at: 10/14/2023 12:42:52 by:ADRIENNE XR chest 1V portableon 10-13 XR chest 1V portable [facility] [place] [address] XRay Report Signed Patient: Italia Allen MR#: [id number] : 1955 Acct:[id number] Age/Sex: 68 / M ADM Date: 10/14/23 Loc: Room: [address] [place] [address] Type: ADM IN Attending Dr: Alondra Gonzales [...] Andrés Hardwick M.D.10/14/2023 12:13 PM Dictation Location: [facility]--13 Transcribed By: [facility] 10/14/23 1213 Dictated By: Andrés Hardwick II, MD 10/14/23 1212 Signed By: 10/14/23 1213 Normal [facility] Vital Signs Date Time Vital Sign Value Performing Clinician Facility 12-27-2023 15:12-0500 Body temperature 97.5 [degF] Foster Nolan MD Work Phone: [facility] 12-27-2023 15:12-0500 Diastolic blood pressure 68 mm[Hg] Foster Nolan MD Work Phone: [facility] 12-27-2023 15:12-0500 Heart rate 63 /min Foster Nolan MD Work Phone: [facility] 12-27-2023 15:12-0500 Respiratory rate 20 /min Foster Nolan MD Work Phone: [facility] 12-27-2023 15:12-0500 SaO2% (BldA) [Mass fraction] 98 % Foster Nolan MD Work Phone: [facility] 12-27-2023 15:12-0500 Systolic blood pressure 134 mm[Hg] Foster Nolan MD Work Phone: [facility] 12-23-2023 06:06-0500 Body mass index (BMI) [Ratio] 35.52 kg/m2 Foster Nolan MD Work Phone: [facility] 12-23-2023 06:06-0500 Body weight 112.3 kg Foster Nolan MD Work Phone: [facility] 12-22-2023 13:00-0400 Body height 177.8 cm Foster Nolan MD Work Phone: [facility] 11-29-2023 13:55-0400 Body height 177.8 cm Fatemeh Knox DPM Work Phone: [facility] 11-29-2023 13:55-0400 Body mass index (BMI) [Ratio] 35.87 kg/m2 Fatemeh Knox DPM Work Phone: [facility] 11-29-2023 13:55-0400 Body weight 113.4 kg Fatemeh Knox DPM Work Phone: [facility] 11-22-2023 15:42-0400 Blood Pressure Location Marine Orzech [facility] 11-22-2023 15:42-0400 Diastolic blood pressure 60 mm[Hg] Marine Orzech [facility] 11-22-2023 15:42-0400 Heart rate 76 /min Marine Orzech [facility] 11-22-2023 15:42-0400 Respiratory rate 16 /min Marine Orzech [facility] 11-22-2023 15:42-0400 Systolic blood pressure 110 mm[Hg] Marine Orzech [facility] 11-13-2023 11:12-0400 Diastolic blood pressure 73 mm[Hg] Sahil Wiley MD Work Phone: [facility] 11-13-2023 11:12-0400 Heart rate 72 /min Sahil Wiley MD Work Phone: [facility] 11-13-2023 11:12-0400 Systolic blood pressure 153 mm[Hg] Sahil Wiley MD Work Phone: [facility] 11-13-2023 11:11-0400 Body height 177.8 cm Sahil Wiley MD Work Phone: [facility] 11-13-2023 11:11-0400 Body mass index (BMI) [Ratio] 36.16 kg/m2 Sahil Wiley MD Work Phone: [facility] 11-13-2023 11:11-0400 Body weight 114.31 kg Sahil Wiley MD Work Phone: [facility] 11-13-2023 11:11-0400 SaO2% (BldA) [Mass fraction] 90 % Sahil Wiley MD Work Phone: [facility] 11-02-2023 09:53-0400 Body height 177.8 cm Ann Henao MD Work Phone: [facility] 11-02-2023 09:53-0400 Body mass index (BMI) [Ratio] 36.16 kg/m2 Ann Henao MD Work Phone: [facility] 11-02-2023 09:53-0400 Body weight 114.31 kg Ann Henao MD Work Phone: [facility] 11-02-2023 09:53-0400 Diastolic blood pressure 76 mm[Hg] Ann Henao MD Work Phone: [facility] 11-02-2023 09:53-0400 Heart rate 78 /min Ann Henao MD Work Phone: [facility] 11-02-2023 09:53-0400 Systolic blood pressure 134 mm[Hg] Ann Henao MD Work Phone: [facility] 10-24-2023 07:22-0400 Body temperature 98.4 [degF] Inderjit Mejia MD PhD Work Phone: [facility] 10-24-2023 07:22-0400 Diastolic blood pressure 55 mm[Hg] Inderjit Mejia MD PhD Work Phone: [facility] 10-24-2023 07:22-0400 Heart rate 72 /min Indrejit Mejia MD PhD Work Phone: [facility] 10-24-2023 07:22-0400 SaO2% (BldA) [Mass fraction] 95 % Inderjit Mejia MD PhD Work Phone: [facility] 10-24-2023 07:22-0400 Systolic blood pressure 96 mm[Hg] Inderjit Mejia MD PhD Work Phone: [facility] 10-24-2023 05:23-0400 Body mass index (BMI) [Ratio] 35.11 kg/m2 Inderjit Mejia MD PhD Work Phone: [facility] 10-24-2023 05:23-0400 Body weight 111 kg Inderjit Mejia MD PhD Work Phone: [facility] 10-23-2023 23:30-0400 Respiratory rate 20 /min Inderjit Mejia MD PhD Work Phone: [facility] 10-16-2023 15:59-0400 Body temperature 37.0 Inderjit Mejia MD PhD Work Phone: [facility] Comment on above: NOTE: Patient Results are Not Corrected for Temperature 10-16-2023 15:59-0400 SaO2% (BldA) [Mass fraction] 95 % Inderjit Mejia MD PhD Work Phone: [facility] 10-16-2023 15:57-0400 [facility] Comment on above: Result Comment: NOTE: Patient Results ar e Not Corrected for Temperature Performed By: #### 1 [id number] #### ERICA Tam ([id number]) [facility] ([facility]) [id number] [place] [address] 10-16-2023 15:57-0400 SaO2% (BldA) [Mass fraction] 95 % [facility] Comment on above: Performed By: #### [id number] #### ERICA Tam ([id number]) [facility] ([facility]) [id number] [place] [address] 10-16-2023 00:51-0400 Body height 177.8 cm Inderijt Mejia MD PhD Work Phone: [facility] 10-15-2023 23:16-0400 Body temperature 98 [degF] [facility] 10-15-2023 23:16-0400 Diastolic blood pressure 73 mm[Hg] [facility] 10-15-2023 23:16-0400 Heart rate 104 /min [facility] 10-15-2023 23:16-0400 Respiratory rate 18 /min [facility] 10-15-2023 23:16-0400 SaO2% (BldA) [Mass fraction] 92 % [facility] 10-15-2023 23:16-0400 Systolic blood pressure 153 mm[Hg] [facility] 10-15-2023 20:00-0400 Inhaled oxygen flow rate 2 L/min [facility] 10-15-2023 14:51-0400 Body height 177.8 cm [facility] 10-15-2023 06:00-0400 Body weight 112.2 kg [facility] Encounters Encounter Date Encounter Type Care Provider Facility Start: 02-26-2024 ambulatory PA-C LILLIAM PHAM Facility:[facility] Start: 02-21-2024 End: 02-21-2024 ambulatory PA-C LILLIAM PHAM Facility:[facility] Start: 02-21-2024 End: 02-21-2024 Patient encounter procedure LILLIAMLISA PHAM [facility] Start: 02-19-2024 End: 02-19-2024 ambulatory PA-C LILLIAMLISA PHAM Facility:[facility] Start: 02-19-2024 End: 02-19-2024 Patient encounter procedure LILLIAM PHAM [facility] Start: 12-22-2023 End: 12-27-2023 Evaluation and management of inpatient Foster Nolan MD Work Phone: [place] [phone] Comment on above: NSTEMI (non-ST eleva zaid myocardial infarction) (Multi) (Primary Dx); CAD, multiple vessel; Acute on chronic systolic (congestive) heart failure; Antiplatelet or antithrombotic long-term use; Right carotid artery occlusion; Grief; Osteoarthritis, unspecified osteoarthritis type, unspecified site; Type 2 diabetes mellitus without complication, with long-term current use of insulin (Multi); Stage 3a chronic kidney disease (Multi); Iron deficiency anemia due to chronic blood loss Start: 12-04-2023 End: 12-04-2023 ambulatory Marine Grier Facility:[facility] Start: 12-04-2023 End: 12-04-2023 Patient encounter procedure Marine Grier [facility] Start: 12-03-2023 ambulatory Marine Grier Facility: [facility] Start: 11-29-2023 End: 11-29-2023 Bamboo flowsheet Fatemhe Coleman DPM Work Phone: [facility] Start: 11-29-2023 End: 11-29-2023 Bamboo flowsheet Fatemeh Coleman DPM Work Phone: [facility] Start: 11-29-2023 End: 11-29-2023 ambulatory FATEMEH COLEMAN Not Available Start: 11-29-2023 End: 11-29-2023 Office outpatient new 30 minutes Fatemeh Coleman DPM Work Phone: [facility] Comment on above: Dermatophytosis of n ail (Primary Dx); Dystrophic nail; Angiopathy, diabetic (CMS/HCC); Diabetic polyneuropathy associated with type 2 diabetes mellitus (CMS/HCC) Start: 11-22-2023 End: 11-22-2023 ambulatory Marine X Orzech Facility:[facility] Start: 11-22-2023 End: 11-22-2023 Patient encounter procedure Marine X Orsobia [facility] Start: 11-13-2023 End: 11-13-[address] [facility] Start: 11-13-2023 End: 11-13-2023 Office outpatient new 45 minutes Sahil Wiley MD Work Phone: [facility] Comment on above: Chronic low back batool n without sciatica, unspecified back pain laterality (Primary Dx); Primary hypertension; Edema, unspecified type Start: 11-02-2023 End: 11-02-2023 Transitional care manage srvc 14 day discharge Ann Henao MD Work Phone: [facility] Comment on above: CAD, multiple vessel (Primary Dx); Primary hypertension; Chronic systolic heart failure (Multi); BMI 36.0-36.9,adult; Stage 3a chronic kidney disease (Multi); Right carotid artery occlusion; Edema, unspecified type Start: 11-02-2023 End: 11-02-2023 ambulatory [facility] Start: 10-15-2023 End: 10-24-2023 Encounter for preprocedural cardiovascular examination [facility] Start: 10-15-2023 End: 10-24-2023 Evaluation and management of inpatient [facility] Work Phone: Comment on above: CAD, multiple vessel (Primary Dx); Acute on chronic systolic (congestive) heart failure (Multi); NSTEMI (non-ST elevated myocardial infarction) (Multi); Shortness of breath; Other disorders of arteries, arterioles and capillaries in diseases classified elsewhere ([facility]); Peripheral vascular disease, unspecified ([facility]); Encounter for preprocedural cardiovascular examination; Other chronic pain; Type 2 diabetes mellitus without complication, with long-term current use of insulin (Multi) Start: 10-15-2023 End: 10-24-2023 Patient encounter status Inderjit Mejia MD PhD Work Phone: [facility] Work Phone: Start: 10-14-2023 End: 10-15-2023 Evaluation and management of inpatient [facility] Work Phone: Procedures Date Procedure Procedure Detail Performing Clinician Start: 12-27-2023 Glucose quantitative blood xcpt reagent strip Sherri Armstrong MD Work Phone: Start: 12-27-2023 Glucose quantitative blood xcpt reagent strip Sherri Armstrong MD Work Phone: Start: 12-26-2023 End: 12-26-2023 Renal function panel Rafi Waller [employer] REPA[employer]ER -[employer]TAIN Work Phone: Start: 12-26-2023 Ecg routine ecg w/le ast 12 lds trcg only w/o i&r Rafi Waller [employer] REPAIRER-[employer]ION CAPTAIN Work Phone: Start: 12-26-2023 Glucose quantitative blood xcpt reagent strip Sherri Armstrong MD Work Phone: Start: 12-26-2023 Egd transoral contro l bleeding any method Bela Rubalcava MD Work Phone: Start: 12-26-2023 PULSE OXIMETRY, SPOT Je tito Waller [employer] REPAIRER-[employer] CAPTAIN Work Phone: Start: 12-26-2023 Glucose quantitative blood xcpt reagent strip Sherri Armstrong MD Work Phone: Start: 12-26-2023 Glucose quantitative blood xcpt reagent strip Sherri Armstrong MD Work Phone: Start: 12-26-2023 PULSE OXIMETRY, SPOT Abran Cuevas Christin [employer] REPAIRER-[employer]ION CAPTAIN Work Phone: Start: 12-26-2023 PULSE OXIMETRY, SPOT Abran Cuevas Christin [employer] REPAIRER-[employer]ION CAPTAIN Work Phone: Start: 12-26-2023 Glucose quantitative blood xcpt reagent strip Sherri Armstrong MD Work Phone: Start: 12-26-2023 PULSE OXIMETRY, SPOT Abran Cuevas Christin [employer] REPAIRER-[employer] CAPTAIN Work Phone: Start: 12-26-2023 PULSE OXIMETRY, SPOT Abran Cuevas Christin [employer] REPAIRER-[employer]ION CAPTAIN Work Phone: Start: 12-25-2023 Glucose quantitative blood xcpt reagent strip Sherri Armstrong MD Work Phone: Start: 12-25-2023 PULSE OXIMETRY, SPOT Abran Cuevas Christin [employer] REPAIRER-[employer] CAPTAIN Work Phone: Start: 12-25-2023 End: 12-25-2023 Renal function panel Rafi Cuevas Christin [employer] REPAIRER -[employer] CAPTAIN Work Phone: Start: 12-25-2023 PULSE OXIMETRY, SPOT Abran Cuevas Christin [employer] REPAIRER-[employer] CAPTAIN Work Phone: Start: 12-25-2023 Glucose quantitative blood xcpt reagent strip Sherri Armstrong MD Work Phone: Start: 12-25-2023 PULSE OXIMETRY, SPOT Abran Cuevas Christin [employer] REPAIRER-[employer] CAPTAIN Work Phone: Start: 12-25-2023 Glucose quantitative blood xcpt reagent strip Sherri Armstrong MD Work Phone: Start: 12-25-2023 PULSE OXIMETRY, ALICE Waller [employer] REPAIRER-[employer] CAPTAIN Work Phone: Start: 12-25-2023 Glucose quantitative blood xcpt reagent strip Sherri Armstrong MD Work Phone: Start: 12-25-2023 PULSE OXIMETRY, ALICE Waller [employer] REPAIRER-[facility] Work Phone: Start: 12-25-2023 PULSE OXIMETRY, ALICE Waller [employer] REPAIRER-[facility] Work Phone: Start: 12-24-2023 Glucose quantitative blood xcpt reagent strip Sherri Armstrong MD Work Phone: Start: 12-24-2023 Renal function panel Abran Waller [employer] REPAIRER-[facility] Work Phone: Start: 12-24-2023 PULSE OXIMETRY, SPOT Abran Waller [employer] REPAIRER-[facility] Work Phone: Start: 12-24-2023 Glucose quantitative blood xcpt reagent strip Sherri Armstrong MD Work Phone: Start: 12-24-2023 PULSE OXIMETRY, ALICE Waller [employer] REPAIRER-[facility] Work Phone: Start: 12-24-2023 Glucose quantitative blood xcpt reagent strip Sherri Armstrong MD Work Phone: Start: 12-24-2023 PULSE OXIMETRY, ALICE Waller [employer] REPAIRER-[facility] Work Phone: Start: 12-24-2023 Echo tthrc r-t 2d w/ wom-mode compl spec&colr d Rafi Cuevas Christin [facility] Work Phone: Start: 12-24-2023 Glucose quantitative blood xcpt reagent strip Sherri Armstrong MD Work Phone: Start: 12-24-2023 PULSE OXIMETRY, ALICE Waller [employer] REPAIRER-[facility] Work Phone: Start: 12-24-2023 Heparin assay Foster Nolan MD Work Phone: Start: 12-24-2023 PULSE OXIMETRY, ALICE Waller [employer] REPAIRER-[employer] CAPTAIN Work Phone: Start: 12-24-2023 PULSE OXIMETRY, ALICE Waller [employer] REPAIRER-[employer] CAPTAIN Work Phone: Start: 12-23-2023 Blood typing serolog ic rh (d) Rafi Waller [employer] REPAIRER-[employer] CAPTAIN Work Phone: Start: 12-23-2023 End: 12-23-2023 Renal function panel Rafi Waller [employer] REPAIRER -[employer]TAIN Work Phone: Start: 12-23-2023 PULSE OXIMETRY, SPOT Abran Waller [employer] REPAIRER-[employer] CAPTAIN Work Phone: Start: 12-23-2023 Glucose quantitative blood xcpt reagent strip Foster Nolan MD Work Phone: Start: 12-23-2023 PULSE OXIMETRY, SPOT Abran Waller [employer] REPAIRER-[employer] CAPTAIN Work Phone: Start: 12-23-2023 Glucose quantitative blood xcpt reagent strip Foster Nolan MD Work Phone: Start: 12-23-2023 PULSE OXIMETRY, ALICE Waller [employer] REPAIRER-[employer] CAPTAIN Work Phone: Start: 12-23-2023 End: 12-23-2023 Cyanocobalamin vitamin b-12 Rafi Dash [employer] REPAIRER-[facility] Work Phone: Start: 12-23-2023 PULSE OXIMETRY, SPOT Abran Waller [employer] REPAIRER-[employer] CAPTAIN Work Phone: Start: 12-23-2023 Heparin assay Foster Nolan MD Work Phone: Start: 12-23-2023 PULSE OXIMETRY, ALICE Waller [employer] REPAIRER-[employer]ION CAPTAIN Work Phone: Start: 12-23-2023 Heparin assay Foster Nolan MD Work Phone: Start: 12-23-2023 PULSE OXIMETRY, ALICE Waller [employer] REPAIRER-[employer]ION CAPTAIN Work Phone: Start: 12-22-2023 Glucose quantitative blood xcpt reagent strip Foster Nolan MD Work Phone: Start: 12-22-2023 Glucose quantitative blood xcpt reagent strip Foster Nolan MD Work Phone: Start: 12-22-2023 PULSE OXIMETRY, SPOT Abran Waller [employer] REPAIRER-[employer]ION CAPTAIN Work Phone: Start: 12-22-2023 End: 12-22-2023 Assay of ferritin Rafi Waller [employer] REPAIRER- [employer] CAPTAIN Work Phone: Start: 12-22-2023 Lipid panel Rafi alejandre [employer] REPAIRER-[employer] CAPTAIN Work Phone: Start: 12-22-2023 PULSE OXIMETRY, SPOT Abran Waller [employer] REPAIRER-[employer] CAPTAIN Work Phone: Start: 12-22-2023 Glucose quantitative blood xcpt reagent strip Foster Nolan MD Work Phone: Start: 12-22-2023 Radiologic exam ches t 2 views Rafi Waller [employer] REPAIRER-[employer] CAPTAIN Work Phone: Start: 12-22-2023 Comprehensive metabo lic panel Rafi Waller [employer] REPAIRER-[employer] CAPTAIN Work Phone: Start: 12-22-2023 Ecg routine ecg w/le ast 12 lds trcg only w/o i&r Rafi Waller [employer] REPAIRER-[employer]ION CAPTAIN Work Phone: Start: 12-22-2023 End: 12-22-2023 PULSE OXIMETRY, SPOT Rafi Waller [employer] REPAIRER -[employer] CAPTAIN Work Phone: Start: 12-22-2023 Lipid 1996 panel - S teodoro or Plasma Foster Nolan MD Work Phone: Start: 10-24-2023 Renal function panel Mi casi Cabrera [employer] REPAIRER-[employer]ION CAPTAIN, DNP Work Phone: Start: 10-24-2023 Glucose quantitative blood xcpt reagent strip Melly Benítez MD Work Phone: Start: 10-23-2023 Glucose quantitative blood xcpt reagent strip Melly Benítez MD Work Phone: Start: 10-23-2023 Glucose quantitative blood xcpt reagent strip Melly Benítez MD Work Phone: Start: 10-23-2023 End: 10-23-2023 Renal function panel Italia Cabrera [employer] REPAIRER-[employer]ION CAPTAIN, DNP Work Phone: Start: 10-23-2023 Glucose quantitative blood xcpt reagent strip Mario Heck MD Work Phone: Start: 10-22-2023 Glucose quantitative blood xcpt reagent strip Mario Heck MD Work Phone: Start: 10-22-2023 Glucose quantitative blood xcpt reagent strip Mario Heck MD Work Phone: Start: 10-22-2023 End: 10-22-2023 Renal function panel Italia Cabrera [employer] REPAIRER-[employer]ION CAPTAIN, DNP Work Phone: Start: 10-22-2023 Glucose quantitative blood xcpt reagent strip Mario Heck MD Work Phone: Start: 10-21-2023 Glucose quantitative blood xcpt reagent strip Mario Heck MD Work Phone: Start: 10-21-2023 Glucose quantitative blood xcpt reagent strip Mario Heck MD Work Phone: Start: 10-21-2023 Glucose quantitative blood xcpt reagent strip Mario Heck MD Work Phone: Start: 10-21-2023 Glucose quantitative blood xcpt reagent strip Mario Heck MD Work Phone: Start: 10-21-2023 Glucose quantitative blood xcpt reagent strip Mario Heck MD Work Phone: Start: 10-20-2023 End: 10-20-2023 Renal function panel Rafi Waller [employer] REPAIRER -[employer] CAPTAIN Work Phone: Start: 10-20-2023 Glucose quantitative blood xcpt reagent strip Mario Heck MD Work Phone: Start: 10-20-2023 Glucose quantitative blood xcpt reagent strip Mario Heck MD Work Phone: Start: 10-20-2023 Glucose quantitative blood xcpt reagent strip Mario Heck MD Work Phone: Start: 10-20-2023 Glucose quantitative blood xcpt reagent strip Mario Heck MD Work Phone: Start: 10-19-2023 Glucose quantitative blood xcpt reagent strip Mario Heck MD Work Phone: Start: 10-19-2023 Glucose quantitative blood xcpt reagent strip Mario Heck MD Work Phone: Start: 10-19-2023 Glucose quantitative blood xcpt reagent strip Mario Heck MD Work Phone: Start: 10-19-2023 Glucose quantitative blood xcpt reagent strip Mario Heck MD Work Phone: Start: 10-19-2023 Glucose quantitative blood xcpt reagent strip Mario Heck MD Work Phone: Start: 10-18-2023 End: 10-18-2023 Renal function panel Rafi Waller [employer] REPAIRER -[employer] CAPTAIN Work Phone: Start: 10-18-2023 Glucose quantitative blood xcpt reagent strip Mario Heck MD Work Phone: Start: 10-18-2023 Glucose quantitative blood xcpt reagent strip Mario Heck MD Work Phone: Start: 10-18-2023 End: 10-18-2023 Heparin assay Jarrell Dale MD Work Phone: Start: 10-17-2023 Glucose quantitative blood xcpt reagent strip Mraio Heck MD Work Phone: Start: 10-17-2023 End: 10-17-2023 Renal function panel Kimmie Sinclair [employer] REPAIRER-[employer]ION CAPTAIN Work Phone: Start: 10-17-2023 Glucose quantitative blood xcpt reagent strip Mario Heck MD Work Phone: Start: 10-17-2023 Duplex scan extracra nial art compl bi study Ru BRODERICK-C Work Phone: Start: 10-17-2023 End: 10-17-2023 Heparin assay Jarrell Dale MD Work Phone: Start: 10-17-2023 Dup-scan xtr veins c omplete bilateral study Ru BRODERICK-C Work Phone: Start: 10-17-2023 Non-invas physiologi c std extremity art 2 level Ru BRODERICK-Paulina Work Phone: Start: 10-17-2023 End: 10-17-2023 Heparin assay Jarrell Dale MD Work Phone: Start: 10-16-2023 Heparin assay Jarrell Dale MD Work Phone: Start: 10-16-2023 Glucose quantitative blood xcpt reagent strip Mario Heck MD Work Phone: Start: 10-16-2023 End: 10-16-2023 Renal function panel Kimmie Sinclair [employer] REPAIRER-[employer] CAPTAIN Work Phone: Start: 10-16-2023 End: 10-16-2023 Glucose quantitative blood xcpt reagent strip Mario Heck MD Work Phone: Start: 10-16-2023 Spmtry w/vc expirato ry génesis w/wo mxml vol vntj Ru ADDISONC Work Phone: Start: 10-16-2023 Heparin assay Jarrell Dale MD Work Phone: Start: 10-16-2023 Radiologic exam ches t 2 views Catia L Mogus PA-C Work Phone: Start: 10-16-2023 Glucose quantitative blood xcpt reagent strip Mario Heck MD Work Phone: Start: 10-16-2023 Cul prsmptv pthgnc o rganism scrn w/colony estimj Ru Elena PA-C Work Phone: Start: 10-16-2023 Natriuretic peptide Tra ci Yonatan Rivas IBANEZ Work Phone: Start: 10-16-2023 Ecg routine ecg w/le ast 12 lds trcg only w/o i&r Kimmie Butterfieldb [employer]QUE [employer] REPAIRER-[employer]ION CAPTAIN Work Phone: Start: 10-16-2023 EXTRA URINE FITCH TUBE G race Dottie [employer]QUE [employer]S REPAIRER-[employer]ION CAPTAIN Work Phone: Start: 10-16-2023 Urinalysis complete W Reflex Culture panel - Urine Kimmie Dottie [employer] REPAIRER-[employer]ION CAPTAIN Work Phone: Start: 10-16-2023 Urnls dip stick/tabl et reagent auto microscopy Kimmie Dottie [employer] REPAIRER-[employer]ION CAPTAIN Work Phone: Start: 10-16-2023 Lipid 1996 panel - S teodoro or Plasma Inderjit Mejia MD PhD Work Phone: Start: 10-16-2023 Comprehensive metabo lic panel Jarrell Dale MD Work Phone: Start: 10-15-2023 Start: 10-15-2023 [facility] Start: 10-15-2023 Ultrasonography of b ilateral kidneys Start: 10-14-2023 Plain chest X-ray Cholecystectomy Marine remy Tonsillectomy Marine Grier Plan of Treatment Date Care Activity Detail Author Start: 12-25-2024 Creatinine measurement Creatinine [facility] Start: 12-25-2024 [facility] Start: 12-23-2024 Echocardiography [facility] Start: 12-21-2024 Lipid panel Lipid Panel [facility] Start: 10-23-2024 Creatinine measurement Creatinine [facility] Start: 10-23-2024 Potassium measurement Potassium Marinoe l [facility] Start: 10-15-2024 Lipid panel Lipid Panel [facility] Start: 10-13-2024 Echocardiography [facility] Start: 03-23-2024 Hemoglobin A1c measurement Gabriela betes: Hemoglobin A1C [facility] [facility] Start: 03-18-2024 End: 03-18-2024 Patient encounter procedure 03/18/2024 3:20 PM EST Office Visit [facility] [address] [facility] [address] [place] [address] Ann Henao MD [address] [facility] [place] [address] [facility] Start: 03-13-2024 End: 03-13-2024 Patient encounter procedure 03/13/2024 2:15 PM EST Procedure Visit [facility] [address] [place] [phone] Fatemeh Coleman DPM [address] [place] [address] [facility] Start: 01-16-2024 Hemoglobin A1c measurement Gabriela betadeel: Hemoglobin A1C [facility] Start: 01-01-2024 End: 01-01-2024 Patient encounter procedure [facility] Start: 12-06-2023 End: 12-06-2023 Patient encounter procedure 12/06/2023 10:40 AM EDT Office Visit [facility] [address] [facility] [address] [place] [phone] Ron Sharma MD [address] [facility] [address] [place] [address] [facility] Start: 11-27-2023 End: 11-12-2024 Magnesium [Mass/volume] in Serum or Plasma Magnesium Lab Routine Edema, unspecified type Expected: 11/27/2023 (Approximate), Expires: 11/12/2024 [facility] Work Phone: Comment on above: Expected: 11/27/2023 (Approximate), Expires: 11/12/2024 Start: 11-27-2023 End: 11-12-2024 Renal function 2000 panel - Serum or Plasma Renal function panel Lab Routine Edema, unspecified type Expected: 11/27/2023 (Approximate), Expires: 11/12/2024 [facility] Work Phone: Comment on above: Expected: 11/27/2023 (Approximate), Expires: 11/12/2024 Start: 11-13-2023 End: 11-13-2023 Patient encounter procedure 11/13/2023 11:00 AM EDT Office Visit [facility] [address] [place] [phone] [place] [address], [place] [id number] [facility] Start: 10-21-2023 COVID-19 Vaccine ( season) COVID-19 Vaccine ( season) [facility] Start: 10-21-2023 COVID-19 Vaccine ( season) COVID-19 Vaccine ( season) [facility] Start: 10-21-2023 Influenza vaccination Influenza Vacc ine (#1) [facility] Start: 10-15-2023 [facility] Start: 10-15-2023 [facility] Start: 10-14-2023 [facility] Start: 10-14-2023 Hospital admission [facility] Start: 10-14-2023 Referral to sandblaster glass [facility] Start: 08-02-2019 Pneumococcal Vaccine : 65+ Years (2 of 2 - PCV) Pneumococcal Vaccine: 65+ Years (2 of 2 - PCV) [facility] Start: 11-30-2018 Pneumococcal Vaccine : 65+ Years (2 of 2 - PCV) Pneumococcal Vaccine: 65+ Years (2 of 2 - PCV) [facility] Start: 2014 RSV High Risk: (Elde rly (60+) or Population) (1 - Risk 60-74 years 1-dose series) RSV High Risk: (Elderly (60+) or Population) (1 - Risk 60-74 years 1-dose series) [facility] Start: 2014 RSV patient s and/or patients aged 60+ years (1 - 1-dose 60+ series) RSV patients and/or patients aged 60+ years (1 - 1-dose 60+ series) [facility] Start: 2004 Zoster Vaccines (1 of 2) Zoste r Vaccines (1 of 2) [facility] Start: 1976 DTaP/Tdap/Td Vaccine s (1 - Tdap) DTaP/Tdap/Td Vaccines (1 - Tdap) [facility] Start: 1973 Urine screening for protein Diabetes: Urine Protein Screening [facility] Start: 1972 Hepatitis C screening Hepatitis C Sc reening [facility] Start: 1964 Glaucoma screening Diabetes: R etinopathy Screening [facility] Start: 1954 Echocardiography Echocardiogram [facility] Start: 1954 Medicare Annual Well ness Visit Medicare Annual Wellness Visit (AWV) [facility] Start: 1954 Screening for malign ant neoplasm of colon [facility] End: 10-19-2023 Cardiac catheterization study [facility] Work Phone: Comment on above: Once for 1 Occurrenc es starting 10/19/2023 until 10/19/2023 CBC panel - Blood by Automated count CBC Lab Routine Evening draw (Lab) until discontinued starting 12/23/2023, 4 completed [facility] Work Phone: Comment on above: Evening draw (Lab) u ntil discontinued starting 12/23/2023, 4 completed Colonoscopy study Colonoscopy Di agnostic Endoscopy Routine Antiplatelet or antithrombotic long-term use Once as needed for 1 Occurrences starting 12/25/2023 [facility] Work Phone: Comment on above: Once as needed for 1 Occurrences starting 12/25/2023 Colonoscopy study Colonoscopy Di agnostic Endoscopy Routine Antiplatelet or antithrombotic long-term use 12/26/2023 5:44 PM EST [facility] Work Phone: End: 10-23-2023 Determination of physical activity tolerance Cardiac rehab evaluation Card Rehab Routine Once for 1 Occurrences starting 10/23/2023 until 10/23/2023 [facility] Work Phone: Comment on above: Once for 1 Occurrenc es starting 10/23/2023 until 10/23/2023 ECG 12 Lead [facility] Work Phone: Electrocardiogram, 1 2-lead PRN ACS symptoms Electrocardiogram, 12-lead PRN ACS symptoms ECG Routine As needed until discontinued starting 12/22/2023, 1 completed [facility] Work Phone: Comment on above: As needed until disc ontinued starting 12/22/2023, 1 completed Electrocardiogram, 1 2-lead PRN ACS symptoms Electrocardiogram, 12-lead PRN ACS symptoms ECG Routine 12/26/2023 7:10 PM EST [facility] Work Phone: Electrocardiogram, 1 2-lead PRN ACS symptoms Electrocardiogram, 12-lead PRN ACS symptoms ECG Routine As needed until discontinued starting 10/16/2023 [facility] Work Phone: Comment on above: As needed until disc ontinued starting 10/16/2023 End: 12-25-2023 Glucose [Mass/volume] in Serum or Plasma POCT Glucose Point of Care Testing - Docked Device Routine 4 times daily before meals and at bedtime for 3 Days starting 12/22/2023 until 12/25/2023, 11 completed [facility] Work Phone: Comment on above: 4 times daily before meals and at bedtime for 3 Days starting 12/22/2023 until 12/25/2023, 11 completed Glucose [Mass/volume ] in Serum or Plasma POCT Glucose Point of Care Testing - Docked Device Routine As needed (Lab) until discontinued starting 10/20/2023 [facility] Work Phone: Comment on above: As needed (Lab) unti l discontinued starting 10/20/2023 Magnesium [Mass/volu me] in Serum or Plasma Magnesium Lab Routine Evening draw (Lab) until discontinued starting 12/23/2023, 4 completed [facility] Work Phone: Comment on above: Evening draw (Lab) u ntil discontinued starting 12/23/2023, 4 completed Patient Education Heart Failure, Adult (DC) [facility] Work Phone: Pulse oximetry, spot Pulse oxime try, spot Respiratory Care Routine Every 4 hours until discontinued starting 12/22/2023, 31 completed [facility] Work Phone: Comment on above: Every 4 hours until discontinued starting 12/22/2023, 31 completed Renal function 2000 panel - Serum or Plasma Renal Function Panel Lab Routine Evening draw (Lab) until discontinued starting 12/23/2023, 4 completed [facility] Work Phone: Comment on above: Evening draw (Lab) u ntil discontinued starting 12/23/2023, 4 completed Immunizations Immunization Date Immunization Notes Care Provider [facility] 12-10-2023 influenza virus vacc ine, H5N1, A/[place] (national stockpi) Foster Nolan MD Work Phone: [facility] Work Phone: 12-10-2023 Seasonal trivalent influenza vaccine, adjuvanted, preservative free Foster Nolan MD Work Phone: [facility] Work Phone: 03-05-2021 Influenza, injectabl e, Madin [place] Canine Kidney, preservative free, quadrivalent Sahil Wiley MD Work Phone: [facility] Work Phone: 03-05-2021 influenza virus vacc ine, unspecified formulation Inderjit Mejia MD PhD Work Phone: [facility] Work Phone: 12-21-2019 influenza, injectabl e, quadrivalent, contains preservative Sahil Wiley MD Work Phone: [facility] Work Phone: 11-30-2017 Influenza, injectabl e, Madin [place] Canine Kidney, preservative free, quadrivalent Sahil Wiley MD Work Phone: [facility] Work Phone: 11-30-2017 pneumococcal polysaccharide vaccine, 23 valent Sahil Wiley MD Work Phone: [facility] Work Phone: Payers Date Payer Category Payer Self-pay 2020 Medicare [id number] 2020 Medicare [id number] 1954 Unknown [id number] 2.16.8 [id number] 1954 Unknown [id number] 2.16.84 [id number] 1954 Unknown [id number] 2.16.8 [id number] 1954 Unknown [id number] 2.16.8 [id number] 1954 Unknown [id number] 2.16.8 [id number] 1954 Unknown [id number] 2.16.8 [id number] 1954 Unknown [id number] 2.16.8 [id number] 1954 Unknown [id number] 2.16.8 [id number] 1954 Unknown [id number] 2.16.8 [id number] 1954 Unknown [id number] 2.16.8 [id number] 1954 Unknown [id number] 2.16.8 [id number] Unknown [employer]/BS [id number] Unknown [id number] 2.16.8 [id number] Social History Date Type Detail Facility Start: 10-14-2023 End: 11-22-2023 Tobacco smoking status NHIS Never smoked tobacco (finding) [facility] Start: 1955 Sex Assigned At Male [facility] Tobacco smoking status Ex-smoker (finding ) [facility] Tobacco smoking status Never [facility] Start: 10-16-2023 End: 11-29-2023 Sex Assigned At Male [facility] Start: 1955 Sex assigned at Not on file [facility] Work Phone: Start: 10-15-2023 End: 11-29-2023 Tobacco use and exposure Smokeless tobacco non-user [facility] Work Phone: Start: 11-29-2023 Alcoholic beverage intake Ex-drinker (finding) [facility] Start: 10-16-2023 End: 11-29-2023 History of Social function [facility] Start: 11-13-2023 End: 12-22-2023 Alcoholic beverage intake Current drinker of alcohol (finding) [facility] Work Phone: Has the [employer], [employer], or water [employer] threatened to shut off services in your home in past 12Mo No [facility] How often to you hav e a drink containing alcohol? Never [facility] Work Phone: (I/We) worried ivy er (my/our) food would run out before (I/we) got money to buy more. Never true [facility] Work Phone: Start: 11-02-2023 Alcohol Comment social [facility] Work Phone: Start: 10-05-2023 End: 12-23-2023 Exposure to SARS-CoV-2 (event) Not sure [facility] Work Phone: How often to you hav e a drink containing alcohol? Monthly or less [facility] Work Phone: How many standard drinks containing alcohol do you have on a typical day? 1 or 2 [facility] Work Phone: How hard is it for y ou to pay for the very basics like food, housing, medical care, and heating Not very hard [facility] Medical Equipment Procedure Code Equipment Code Equipment Origin al Text Equipment Identifier Dates Stent, Scott Fron tier Lisy, 3.50 X 15rx - [id number] Start: 10-23-2023 Stent, Synergy X d, Mr Us, 3.00 X 48mm - [id number] Start: 10-23-2023 Goals Date Patient Goal Desired Activity /State Functional Status Date Assessment Result Facility 11-22-2023 Functional Status N/A [facility] 10-16-2023 Are you deaf, or do you have serious difficulty hearing No 10/16/2023 8:24 AM Pablo Leary, RN No [facility] 10-16-2023 Are you blind, or do you have serious difficulty seeing, even when wearing glasses No 10/16/2023 8:24 AM Pablo Leary, RN No [facility] Work Phone: 10-16-2023 Do you have serious difficulty walking or climbing stairs No 10/16/2023 8:24 AM Pablo Leary RN No [facility] Work Phone: 10-16-2023 Do you have difficul ty dressing or bathing No 10/16/2023 8:24 AM Pablo Leary RN No [facility] Work Phone: 10-16-2023 Because of a physica l, mental, or emotional condition, do you have difficulty doing errands alone such as visiting a physician's office or shopping No 10/16/2023 8:24 AM Pablo Leary, SWAPNIL No [facility] Work Phone: 10-15-2023 Functional status Patient at [facility] Work Phone: Mental Status Date Assessment Result Facility 10-16-2023 Because of a physica l, mental, or emotional condition, do you have serious difficulty concentrating, remembering, or making decisions No 10/16/2023 8:24 AM Pablo Leary RN No [facility] Work Phone: 10-15-2023 Cognitive function Cognitive Sta tus Patient at Baseline [facility] Work Phone: Clinical Notes 10-14-2023 to 12-27-2023 Significant Event - Bela Rubalcava MD - 12/27/2023 1:31 PM ESTSignificant Event - Bela Rubalcava MD - 12/27/2023 1:31 PM ESTCare Plan - Lulú Rosas RN - 12/26/2023 9:55 PM ESTDischarge Instructions Note Date & Type Note Facility 12-27-2023 Note Formatting of this n ote might be different from the original. EGD and colonoscopy performed 12/26/23 with results below: 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s: -Patient will need repeat colonoscopy as soon as feasible to remove 2 cm adenomatous appearing polyp. DAPT will need to be held for 5 days pre procedure. -If off DAPT, can consider repeat EGD with APC for GAVE. 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s [facility] and outpatient [facility]ologists via secure chat. Thank you for the consultation. The consulting team will sign off now. Please do not hesitate to contact us again on by paging the consultation team again between the weekday hours of 7 AM - 5 PM. If there is an urgent concern during the weekend, after-hours, or holidays; then [place] [phone]. Thank you. [facility] Work Phone: 12-27-2023 Miscellaneous Notes EGD and colonoscopy performed 12/26/23 with results below: 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s: -Patient will need repeat colonoscopy as soon as feasible to remove 2 cm adenomatous appearing polyp. DAPT will need to be held for 5 days pre procedure. -If off DAPT, can consider repeat EGD with APC for GAVE. 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s [facility] with [facility] and outpatient cardiologists via secure chat. Thank you for the consultation. The consulting team will sign off now. Please do not hesitate to contact us again on by paging the consultation team again between the weekday hours of 7 AM - 5 PM. If there is an urgent concern during the weekend, after-hours, or holidays; then [place] [phone]. Thank you. The patient's goals for the shift include The clinical goals for the shift include safety Over the shift, the patient did not make progress toward the following goals. Problem: Safety - Adult Goal: Free from fall injury Outcome: Progressing Flowsheets (Taken 12/26/20235) Free from fall injury: Based on caregiver fall risk screen, instruct family/caregiver to ask for assistance with transferring if caregiver noted to have fall risk factors Instruct family/caregiver on patient safety Patient complaining of 3-4/10 chest pressure, below sternum/epigastic he recently returned from his EGD/Colonoscopy. Obtained EKG which was NSR and similar to previous. Vitals reviewed. Will c/w current regimen, night fellow notified to follow up overnight. The patient's goals for the shift include The clinical goals for the shift include patient will remain free of S&S of bleeding Over the shift, the patient did not make progress toward the following goals. Barriers to progression include none. 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s to address these barriers include none. The patient's goals for the shift include prepare for colonoscopy & EGD tomorrow The clinical goals for the shift include patient will remain free of S&S of bleeding Over the shift, the patient did make progress toward the following goals. 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s to continue with progression include continue with taking oral prep for procedures & monitor output. Problem: Pain - Adult Goal: Verbalizes/displays adequate comfort level or baseline comfort level Outcome: Progressing Problem: Safety - Adult Goal: Free from fall injury Outcome: Progressing Problem: Discharge Planning Goal: Discharge to home or other facility with appropriate resources Outcome: Progressing Problem: Chronic Conditions and Co-morbidities Goal: Patient's chronic conditions and co-morbidity symptoms are monitored and maintained or improved Outcome: Progressing Problem: Skin Goal: Decreased wound size/increased tissue granulation at next dressing change Outcome: Progressing Goal: Participates in plan/prevention/treatment measures Outcome: Progressing Goal: Prevent/manage excess moisture Outcome: Progressing Goal: Prevent/minimize sheer/friction injuries Outcome: Progressing Goal: Promote/optimize nutrition Outcome: Progressing Goal: Promote skin healing Outcome: Progressing The patient's goals for the shift include The clinical goals for the shift include pt will remain HDS throughout shift Over the shift, the patient did not make progress toward the following goals. Barriers to progression include none. 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s to address these barriers include none. The patient's goals for the shift include The clinical goals for the shift include pt will remain HDS throughout shift Over the shift, the patient did make progress toward the following goals. Patient reviewed with Dr. Wiley. Ultimately had recent PCI and now admitted with syncope with newly reduced Hgb to the mid 7s. Primary team reaching out to Interventional Cardiology for consideration for RCA SHRIMP TRAWLER given mildly elevated Troponin. At this time, it appears that patient's Troponin elevation is likely from new anemia, which also puts into question whether he can be safely be placed on DAPT for 2 months without interruption. His new anemia is also more likely a contributing factor to his syncope as opposed to his RCA SHRIMP TRAWLER. GI is recommending EGD/C-scope. At this time there is no urgency for RCA PCI. Therefore, we would recommend further Hgb optimization and this case can be rediscussed once GI work up is complete and patient appears to be able to take atleast 2 months of DAPT safely. The patient's goals for the shift include The clinical goals for the shift include Pt will remain HDS throughout the shift Over the shift, the patient did not make progress toward the following goals. Barriers to progression include . 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s to address these barriers include . The patient's goals for the shift include The clinical goals for the shift include pt will remain HDS throughout the shift Over the shift, the patient did make progress toward the following goals. Italia Allen is a 68 y.o. male with a PMHx of HLD, HTN, T2DM, HFrEF (LVEF 45 to 50%), and OA who presented to [facility] 12/18 after being found down by his son. At time of EMS arrival BG was found to be 35, which responded to an Amp of D50. Trauma workup negative for any acute findings. EKG without any ST elevations or depressions. Patient was placed on Heparin drip for elevated troponin of 654 which up trended to 1723 and admitted to ICU pending bed availability at [facility]. Upon arrival to [facility] patient denies having any chest pain or any chest pain since admission to OSH. He does endorse ongoing intermittent episodes of chest discomfort, dyspnea with very minimal exertion, as well as worsening lower extremity swelling. He also endorses chronic severe back pain and decreased appetite with constipation. He denies any fevers/chills, N/V, dizziness/ lightheadedness. Patient was recently admitted 10/14-10/23 for ADHF as well as NSTEMI. LHC showed 3VD, evaluated by CTS for CABG evaluation, but found to not be a surgical candidate due to patients labile emotional/mental state, and concerns about recovery post surgery, decision was made to pursue PCI. Patient was taken for staged PCI on 10/22, IVUS guided PCI to Lcx and LAD with plan to follow up with Dr. Wiley outpatient for consideration of SHRIMP TRAWLER PCI to RCA. At follow up appointment with Dr. Wiley 11/12 decision was made to defer consideration of PCI given pt was not medically optimized. Diuretic dose was increased and spironolactone added with plan to return to clinic in 4 weeks. Patient admitted to HVI service for further HF optimization and NSTEMI management. On admission patient found to be significantly volume overloaded. Of note, patient also recently prescribed home oxygen (4 L) by OSH for hypoxic respiratory failure in setting of acute decompensated heart failure. Able to wean to 2L NC with SpO2 > 90% at day of discharge. Patient started on low-dose amlodipine on day of discharge for mild HTN. Patient diuresed with IVP Bumex with improvement in symptoms and fluid status. Successfully weaned to bumex 2mg PO BID. He was noted to be anemic with Hgb of 7.5, previously 10.5-11.4 on admission the end of September. GI was consulted who performed an EGD and colonoscopy on 12/25 which showed linear gastric antral ectasia with oozing of blood. 5 bands were placed at the site. 8mm Inflammatory polyp in the greater curve of the stomach with one band placed successfully. Also one 8mm pedunculated, benign polyp. Diverticulosis in descending colon, 20mm transverse colon polyp which was not remove due patient being on Effient. GI recommends follow up for 20mm polyp removal for risk mitigation, but timing of polyp removal dependent on need to hold antiplatelet therapy. Timing of procedure will ultimately be up to interventional cardiology in association with GI. No high dose PPI warranted per GI. Interventional cardiology / Dr. Wiley notified of patient's status. Appointment scheduled for 12/31 to evaluate candidacy for PCI to SHRIMP TRAWLER of RCA. Patient transitioned from home diabetes regimen to Glucommander while inpatient. Home glargine decreased to 50 units daily on discharge and glucose tablets/intranasal glucagon prescribed for home going in case of hypoglycemic occurrence/emergency, respectively. Pt provided instructions on identifying hypoglycemia and ways to treat. Heparin drip continued on admission, discontinued after troponin's down trended given pt completed >48 hrs and denied having any chest pain. Pt denied chest pain on day of discharge. Lovenox for DVT PPX. Acute BREEZY likely secondary to upper GI findings. Pt treated with IV iron while inpatient, transitioned to PO regimen for discharge. Patient with ongoing depression, home sertraline titrated as indicated. Patient declined any counseling or therapy consultation. Upon review of medications, lab values, and vital signs. Pt was deemed stable for discharge in satisfactory condition. Pt's most recent weight from 12/22 of 112kg, refused discharge weight. More than 60 minutes were spent in coordinating patient discharge. The patient's goals for the shift include The clinical goals for the shift include pt will be HDS throughout the shift Over the shift, the patient did not make progress toward the following goals. Barriers to progression include . 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s to address these barriers include . documented in this encounter [facility] Work Phone: 12-27-2023 Hospital course Narrative Discharge Diagnosis NSTEMI (non-ST elevated myocardial infarction) (Multi) Issues Requiring Follow-Up - Outpatient follow ups with vascular surgery, interventional cardiology, GI, and primary care. - Need for polyp removal with GI - timing of procedure is undecided but requires holding antiplatelet therapy to minimize bleeding risk but also remaining vigilant about stent patency. chipper machine operator has been informed of situation. - Discuss comprehensive care including diabetes management with PCP. Test Results Pending At Discharge Pending Labs No current pending labs. Hospital Course Italia Allen is a 68 y.o. male with a PMHx of HLD, HTN, T2DM, HFrEF (LVEF 45 to 50%), and OA who presented to [facility] 12/18 after being found down by his son. At time of EMS arrival BG was found to be 35, which responded to an Amp of D50. Trauma workup negative for any acute findings. EKG without any ST elevations or depressions. Patient was placed on Heparin drip for elevated troponin of 654 which up trended to 1723 and admitted to ICU pending bed availability at [facility]. Upon arrival to [facility] patient denies having any chest pain or any chest pain since admission to OSH. He does endorse ongoing intermittent episodes of chest discomfort, dyspnea with very minimal exertion, as well as worsening lower extremity swelling. He also endorses chronic severe back pain and decreased appetite with constipation. He denies any fevers/chills, N/V, dizziness/ lightheadedness. Patient was recently admitted 10/14-10/23 for ADHF as well as NSTEMI. LHC showed 3VD, evaluated by CTS for CABG evaluation, but found to not be a surgical candidate due to patients labile emotional/mental state, and concerns about recovery post surgery, decision was made to pursue PCI. Patient was taken for staged PCI on 10/22, IVUS guided PCI to Lcx and LAD with plan to follow up with Dr. Wiley outpatient for consideration of SHRIMP TRAWLER PCI to RCA. At follow up appointment with Dr. Wiley 11/12 decision was made to defer consideration of PCI given pt was not medically optimized. Diuretic dose was increased and spironolactone added with plan to return to clinic in 4 weeks. Patient admitted to HVI service for further HF optimization and NSTEMI management. On admission patient found to be significantly volume overloaded. Of note, patient also recently prescribed home oxygen (4 L) by OSH for hypoxic respiratory failure in setting of acute decompensated heart failure. Able to wean to 2L NC with SpO2 > 90% at day of discharge. Patient started on low-dose amlodipine on day of discharge for mild HTN. Patient diuresed with IVP Bumex with improvement in symptoms and fluid status. Successfully weaned to bumex 2mg PO BID. He was noted to be anemic with Hgb of 7.5, previously 10.5-11.4 on admission the end of September. GI was consulted who performed an EGD and colonoscopy on 12/25 which showed linear gastric antral ectasia with oozing of blood. 5 bands were placed at the site. 8mm Inflammatory polyp in the greater curve of the stomach with one band placed successfully. Also one 8mm pedunculated, benign polyp. Diverticulosis in descending colon, 20mm transverse colon polyp which was not remove due patient being on Effient. GI recommends follow up for 20mm polyp removal for risk mitigation, but timing of polyp removal dependent on need to hold antiplatelet therapy. Timing of procedure will ultimately be up to interventional cardiology in association with GI. No high dose PPI warranted per GI. Interventional cardiology / Dr. Wiley notified of patient's status. Appointment scheduled for 12/31 to evaluate candidacy for PCI to SHRIMP TRAWLER of RCA. Patient transitioned from home diabetes regimen to Glucommander while inpatient. Home glargine decreased to 50 units daily on discharge and glucose tablets/intranasal glucagon prescribed for home going in case of hypoglycemic occurrence/emergency, respectively. Pt provided instructions on identifying hypoglycemia and ways to treat. Heparin drip continued on admission, discontinued after troponin's down trended given pt completed >48 hrs and denied having any chest pain. Pt denied chest pain on day of discharge. Lovenox for DVT PPX. Acute BREEZY likely secondary to upper GI findings. Pt treated with IV iron while inpatient, transitioned to PO regimen for discharge. Patient with ongoing depression, home sertraline titrated as indicated. Patient declined any counseling or therapy consultation. Upon review of medications, lab values, and vital signs. Pt was deemed stable for discharge in satisfactory condition. Pt refused discharge weight. More than 60 minutes were spent in coordinating patient discharge. Pertinent Physical Exam At Time of Discharge Physical Exam Constitutional: General: He is not in acute distress. Appearance: Normal appearance. He is obese. He is not ill-appearing. Cardiovascular: Rate and Rhythm: Normal rate and regular rhythm. Pulses: Normal pulses. Heart sounds: No murmur heard. Pulmonary: Effort: No respiratory distress. Breath sounds: Normal breath sounds. Abdominal: General: There is distension. Palpations: Abdomen is soft. Skin: General: Skin is warm and dry. Neurological: General: No focal deficit present. Mental Status: He is alert. Psychiatric: Comments: Flat affect Home Medications Medication List START taking these medications acetaminophen 325 mg tablet; Commonly known as: Tylenol; Take 3 tablets (975 mg) by mouth every 6 hours if needed for mild pain (1 - 3) or moderate pain (4 - 6). amLODIPine 5 mg tablet; Commonly known as: Norvasc; Take 1 tablet (5 mg) by mouth once daily.; Start taking on: December 28, 2023 Baqsimi 3 mg/actuation spray,non-aerosol; Generic drug: glucagon; Administer 1 spray into affected nostril(s) every 15 minutes if needed (For low blood sugar). glucose 4 gram chewable tablet; Chew 2 tablets (8 g) if needed for low blood sugar - see comments. iron polysaccharides 150 mg iron capsule; Commonly known as: Nu-Iron,Niferex; Take 1 capsule (150 mg) by mouth once daily. CHANGE how you take these medications bumetanide 2 mg tablet; Commonly known as: Bumex; Take 1 tablet (2 mg) by mouth 2 times daily (morning and late afternoon).; What changed: how much to take, when to take this, additional instructions, Another medication with the same name was removed. Continue taking this medication, and follow the directions you see here. insulin glargine 100 unit/mL (3 mL) pen; Commonly known as: Lantus; Inject 50 Units under the skin once daily.; What changed: how much to take sertraline 100 mg tablet; Commonly known as: Zoloft; Take 1 tablet (100 mg) by mouth once daily.; Start taking on: December 28, 2023; What changed: medication strength, how much to take CONTINUE taking these medications aspirin 81 mg chewable tablet; Chew 1 tablet (81 mg) once daily. atorvastatin 80 mg tablet; Commonly known as: Lipitor; Take 1 tablet (80 mg) by mouth once daily at bedtime. carvedilol 25 mg tablet; Commonly known as: Coreg; Take 1 tablet (25 mg) by mouth 2 times a day. diclofenac 75 mg EC tablet; Commonly known as: Voltaren glipiZIDE 10 mg tablet; Commonly known as: Glucotrol lisinopril 40 mg tablet; Take 1 tablet (40 mg) by mouth once daily. nitroglycerin 0.4 mg SL tablet; Commonly known as: Nitrostat; Place 1 tablet (0.4 mg) under the tongue every 5 minutes if needed for chest pain. omeprazole [address] capsule; Commonly known as: PriLOSEC prasugrel 10 mg tablet; Commonly known as: Effient; Take 1 tablet (10 mg) by mouth once daily for 363 doses. spironolactone 25 mg tablet; Commonly known as: Aldactone; Take 2 tablets (50 mg) by mouth once daily. STOP taking these medications celecoxib 200 mg capsule; Commonly known as: CeleBREX insulin detemir 100 unit/mL (3 mL) pen; Commonly known as: Levemir Flextouch Outpatient Follow-Up Future Appointments Date Time Provider Department Center 01/01/2024 11:30 AM Sahil Wiley MD [id number] [facility] 03/18/2024 3:20 PM Ann Henao MD [id number] [place] Yevgeniy Navarro PA-C Cosigned by Sherri Armstrong MD at 12/27/2023 2:02 PM EST Associated attestation - Sherri Armstrong MD - 12/27/2023 2:02 PM EST I personally interviewed and examined the patient and the encounter was done in conjunction with the SUDHIR. My impressions is: coronary artery disease and anemia. I provided the substantive portion of this visit by personally performing the physical exam component of the encounter. Patient is awake and alert. Pupils are equal and reactive and extra ocular muscles are intact. There is no thyromegaly or significant lymphadenopathy in the neck. Heart is normal rate and rhythm with no murmurs, rubs, or gallops. There is no jugular venous distention. There are no carotid bruits. Lungs are clear to auscultation bilaterally with no wheezes. Abdomen is soft, non-tender, non-distended. Lower extremities are warm and well-perfused. Plan is discharge today. Sherri Armstrong MD documented in this encounter [facility] Work Phone: 12-27-2023 Nurse Note Per pt his son will pick him up from the hospital and take him home. Pt state that we can aim for a 1700 pick and shovel worker today since his son works until 1430. [facility] 12-27-2023 Nurse Note Per pt his son will pick him up from the hospital and take him home. Pt state that we can aim for a 1700 pick and shovel worker today since his son works until 1430. documented in this encounter [facility] Work Phone: 12-27-2023 Hospital Discharge instructions Yevgeniy Navarro PA-C - 12/27/2023 11:27 AM EST There was a slow oozing bleed found in the stomach during your upper endoscopy. 5 bands were placed to help stop the bleeding. There was a polyp in the stomach and large intestine. Gastroenterology would like to remove the large intestine polyp. Timing of the procedure will need to be discussed with your base cloth inspector, Dr. Wiley due to the need to hold your Prasugrel. If you have any bleeding with bowel movements or bleeding with vomiting, please return to the emergency room for evaluation. Monitor for signs of increased fatigue. Follow up with your sandblaster glass as previously instructed or sooner if any issues arise. Several new medications have been sent to [facility] in [place], [place] for pickup. Avoid non-steroidal antiinflammatory drugs due to your kideny function. Follow up with your PCP to review hospitalization. Your insulin glargine has been decreased to 50 units daily. For low blood sugar management, glucose tabs have been prescribed. If low blood sugar is severe and you experience symptoms such as passing out, glucagon has been prescribed for rescue treatment. Discuss with primary care provider for any assistance needed in obtaining medication if initial cost is too high. Discuss potential need for starting GLP-1 and SGLT2 with primary care physician to better control diabetes and heart failure. The following attachments cannot be sent through Care Everywhere.Low blood sugar in people with diabetes (Italian)Acid reflux and GERD in adults (Italian)Atherosclerosis (Italian)documented in this encounter [facility] Work Phone: 12-26-2023 Plan of care note The patient's goals for the shift include The clinical goals for the shift include safety Over the shift, the patient did not make progress toward the following goals. Problem: Safety - Adult Goal: Free from fall injury Outcome: Progressing Flowsheets (Taken 12/26/2023 2155) Free from fall injury: Based on caregiver fall risk screen, instruct family/caregiver to ask for assistance with transferring if caregiver noted to have fall risk factors Instruct family/caregiver on patient safety [facility] 12-26-2023 Note Formatting of this n ote might be different from the original. Patient complaining of 3-4/10 chest pressure, below sternum/epigastic he recently returned from his EGD/Colonoscopy. Obtained EKG which was NSR and similar to previous. Vitals reviewed. Will c/w current regimen, night fellow notified to follow up overnight. [facility] Work Phone: 12-26-2023 History of Present illness Narrative Subjective Data: - colonoscopy/egd today - plan for o/p Dr. Wiley apt to discuss SHRIMP TRAWLER - likely home tomorrow Objective Data: Last Recorded Vitals: Vitals: 12/25/23 2300 12/26/23 0500 12/26/23 0700 12/26/23 0906 BP: 109/50 148/70 159/74 154/60 BP Location: Right arm Right arm Right arm Patient Position: Lying Lying Lying Pulse: 76 65 68 71 Resp: 18 16 16 Temp: 36.4 C (97.5 F) 36.1 C (97 F) 36.2 C (97.2 F) TempSrc: Temporal Temporal Temporal SpO2: 93% 100% 98% Weight: Height: Last Labs: Results for orders placed or performed during the hospital encounter of 12/22/23 (from the past 24 hours) POCT GLUCOSE Result Value Ref Range POCT Glucose 247 (H) 74 - 99 mg/dL POCT GLUCOSE Result Value Ref Range POCT Glucose 192 (H) 74 - 99 mg/dL CBC Result Value Ref Range WBC 9.3 4.4 - 11.3 x10*3/uL nRBC 0.0 0.0 - 0.0 /100 WBCs RBC 3.10 (L) 4.50 - 5.90 x10*6/uL Hemoglobin 8.8 (L) 13.5 - 17.5 g/dL Hematocrit 29.1 (L) 41.0 - 52.0 % MCV 94 80 - 100 fL MCH 28.4 26.0 - 34.0 pg MCHC 30.2 (L) 32.0 - 36.0 g/dL RDW 16.3 (H) 11.5 - 14.5 % Platelets 416 150 - 450 x10*3/uL Renal Function Panel Result Value Ref Range Glucose 174 (H) 74 - 99 mg/dL Sodium 141 136 - 145 mmol/L Potassium 3.8 3.5 - 5.3 mmol/L Chloride 101 98 - 107 mmol/L Bicarbonate 31 21 - 32 mmol/L Anion Gap 13 10 - 20 mmol/L Urea Nitrogen 35 (H) 6 - 23 mg/dL Creatinine 1.68 (H) 0.50 - 1.30 mg/dL eGFR 44 (L) >60 mL/min/1.73m*2 Calcium 9.0 8.6 - 10.6 mg/dL Phosphorus 2.8 2.5 - 4.9 mg/dL Albumin 3.3 (L) 3.4 - 5.0 g/dL Magnesium Result Value Ref Range Magnesium 1.98 1.60 - 2.40 mg/dL POCT GLUCOSE Result Value Ref Range POCT Glucose 118 (H) 74 - 99 mg/dL POCT GLUCOSE Result Value Ref Range POCT Glucose 125 (H) 74 - 99 mg/dL TROPHS Date/Time Value Ref Range Status 12/22/2023 06:41 PM 366 0 - 53 ng/L Final Comment: Previous result verified on 12/22/2023 1726 on specimen/case [id number] called with component [facility] for procedure Troponin I, High Sensitivity with value 492 ng/L. 12/22/2023 11:49 AM 492 0 - 53 ng/L Final 10/16/2023 01:56 AM 916 0 - 53 ng/L Final BNP Date/Time Value Ref Range Status 12/22/2023 11:49 AM 306 0 - 99 pg/mL Final 10/16/2023 09:06 AM 88 0 - 99 pg/mL Final HGBA1C Date/Time Value Ref Range Status 12/22/2023 11:49 AM 6.8 See comment % Final 10/16/2023 01:56 AM 6.8 see below % Final LDLCALC Date/Time Value Ref Range Status 12/22/2023 06:41 PM 39 <=99 mg/dL Final Comment: Near Borderline AGE Desirable Optimal High High Very High 0-19 Y 0 - 109 --- 110-129 >/= 130 ---- 20-24 Y 0 - 119 --- 120-159 >/= 160 ---- >24 Y 0 - 99 100-129 130-159 160-189 >/=190 VLDL Date/Time Value Ref Range Status 12/22/2023 06:41 PM 37 0 - 40 mg/dL Final Last I/O: I/O last 3 completed shifts: In: - (0 mL/kg) Out: 2275 (20.3 mL/kg) [Urine:2275 (0.6 mL/kg/hr)] Weight: 112.3 kg Past Cardiology Tests (Last 3 Years): EKG: ECG 12 Lead 11/13/2023 Normal sinus rhythm Normal ECG When compared with ECG of 16-OCT-2023 08:50, No significant change was found Confirmed by Mere Urban ([id number]) on 11/14/2023 6:48:02 PM ECG 12 lead 10/16/2023 Normal sinus rhythm Prolonged QT Abnormal ECG No previous ECGs available Confirmed by Mark Kennedy ([id number]) on 10/16/2023 5:14:12 PM Echo: 12/24/2023: CONCLUSIONS: 1. Poorly visualized anatomical structures due to suboptimal image quality. 2. Left ventricular ejection fraction is normal, calculated by Patton's biplane at 59%. 3. There is normal right ventricular global systolic function. Ejection Fractions: EF Date/Time Value Ref Range Status 12/24/2023 11:03 AM 59 % Cath: Cardiac Catheterization Procedure 10/23/2023 Stress Test: No results found for this or any previous visit from the past 1095 days. Cardiac Imaging: No results found for this or any previous visit from the past 1095 days. Inpatient Medications: Scheduled medications Medication Dose Route Frequency aspirin 81 mg oral Daily atorvastatin 80 mg oral Nightly bumetanide 2 mg oral BID carvedilol 25 mg oral BID [Held by provider] celecoxib 200 mg oral Daily docusate sodium 100 mg oral BID enoxaparin 40 mg subcutaneous q24h Glucommander - insulin glargine 1-125 Units subcutaneous Nightly And Glucommander - insulin lispro 0-125 Units subcutaneous With meals & nightly iron sucrose 200 mg intravenous Daily lidocaine 1 patch transdermal Daily lisinopril 40 mg oral Daily pantoprazole 40 mg intravenous BID perflutren protein A microsphere 0.5 mL intravenous Once in imaging prasugrel 10 mg oral Daily sertraline 100 mg oral Daily spironolactone 50 mg oral Daily sulfur hexafluoride microsphr 2 mL intravenous Once in imaging PRN medications Medication acetaminophen dextrose diclofenac sodium glucagon HCL Glucommander - insulin lispro melatonin polyethylene glycol traMADol Continuous Medications Medication Dose Last Rate Physical Exam General: NAD, lying in bed Skin: warm and dry Head/neck: JVD above clavicle at 60 degrees Cardiac: Regular rate and rhythm Pulm: CTAB GI: soft, nontender Extremities: 1+ bilat LE edema to shins Neuro: A/Ox3, no focal neuro deficits Psych: mildly agitated Assessment/Plan Italia Allen is a 68 y.o. male with a PMHx of HLD, HTN, T2DM, HFrEF (LVEF 45 to 50%), and OA who presented to [facility] 12/18 after being found down by his son. Patient was placed on Heparin drip for elevated troponin of 654 which up trended to 1723 and admitted to ICU pending bed availability at [facility]. Admitted to HVI service for ADHF and NSTEMI management. NSTEMI CAD/HLD - presented to OSH s/p syncopal event, found to be hypoglycemic - OSH Troponin peak 1723, admit HS Troponin 492 ->366 - [facility] 10/14: severe 3V CAD, 70 to 80% prox to mid LAD, 90% marginal 1, and SHRIMP TRAWLER of the RCA with collateral filling the distal RCA demonstrating vessel appears to be a good target for revascularization. (Images in Syngo) - evaluated by CTS/Dr. Ruiz, previous admit, given patients labile emotional/mental state did not pursue CABG - 10/22 s/p IVUS guided and orbital atherectomy assisted PCI, LISY to ostial-prox LAD and LISY to Circ by Dr Wiley with plan for outpt consideration of SHRIMP TRAWLER PCI to the RCA - appointment with Dr. Wiley 11/12, deferred PCI given pt was not medically optimized - Lipid panel: Chol 102, HDL 26, LDL 34, Tri 185 - can discuss SHRIMP TRAWLER as o/p per interventional note - stop heparin gtt - cont ASA, statin, coreg - per GI, no need to hold Effient prior to EGD and colonoscopy today Acute on chronic systolic and diastolic heart failure, HFmrEF - 45-50% - etiology: likely ICM, reports a 20 year history of CHF with unknown EF - 09/2023 TTE ([facility]): EF of 45-50%, no significant valvular disease. No formal report available. Images in Syngo. - BNP: 306 (previously 88) - CXR: enlarged cardiac silhouette with interstitial pulmonary edema - Admit Wt: 115 kg, dc wt 10/23: 111 kg - today's wt 112 (112) - appears near euvolemic, still with 1+ pitting edema of BLE - continue bumex 2mg PO BID - per pt, recently started on home O2, ~2 wks ago (4L), on 2 L this morning, cont to wean as tolerated - TTE 12/24/23: LVEF is normal, calculated to be approximately 59%. 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 - prev admit Vascular surgery consulted, no surgical intervention recommended - outpatient follow up DM2 - presented to OSH hypoglycemic, no prior or episodes since - Hgb A1C on 10/15: 6.8%, repeat 12/21 6.8% - home regimen: Glargine 60 units daily, Glipizide 10 mg BIDAC - Glucommander ordered: Glargine 40 units daily, Lispro 12 units TIDAC, plus Glucommander corrected dose - Accu-Cheks AC/HS, hypoglycemic protocol (patient refuses CCD) - glucose tabs to be ordered on dc HTN - admit BP: 128/75 - SBP last 24 hrs: 100s-150s - regimen as above CKD 3b - No recent information on kidney function, last Cr in 2016 was normal - Renal US at [facility] on 10/14 - no acute findings - b/l Cr prev admit ~1.4-1.9 - admit Cr: 1.95 (was 2.09 at OSH) - today's Cr 1.68 (1.67,1.68, 1.95) - diuresis as above - Avoid nephrotoxins and hypotension Acute Anemia - likely mixed AOCD / BREEZY - prior admit hgb 10.5-11.4 - admit hgb 7.5 - today's hgb 7.6 - GI consulted, EGD and colonoscopy today - no acute s/s of bleeding - Vit B12 /Folate WNL - iron 34, TIBC 231, % sat 15, ferritin 198 - cont IV Iron sucrose 200 mg x 5 doses, will transition to PO at discharge - trend daily CBC, transfuse for hgb <7, T&S Osteoarthritis - hold home celecoxib given CKD/CHF/HTN - avoid NSAID's - XS Tylenol q6h PRN, Lidocaine patches - PRN Tramadol 50 mg q8h - Voltaren gel to affected areas QID PRN Grief/Depression - patient lost his August this year - previous admit with labile emotions, varied between tearful/anger/withdrawn - grief/pre parole counseling aide services offered-> patient declines - started on sertraline 50 mg daily 11/08, pt reports no improvement - home sertraline increased to 100 mg daily DVT prophylaxis: lovenox Dispo pending PCI evaluation, GI consult Code Status: Full Code NOK: Antony Allen, son: [phone] Patient seen and discussed with ANA M Null DNP Cosigned by Sherri Armstrong MD at 12/26/2023 11:01 AM EST Associated attestation - Sherri Armstrong MD - 12/26/2023 11:01 AM EST I personally interviewed and examined the patient and the encounter was done in conjunction with the SUDHIR. My impressions is: new anemia. I provided the substantive portion of this visit by personally performing the physical exam component of the encounter. Patient is awake and alert. Pupils are equal and reactive and extra ocular muscles are intact. There is no thyromegaly or significant lymphadenopathy in the neck. Heart is normal rate and rhythm with no murmurs, rubs, or gallops. There is no jugular venous distention. There are no carotid bruits. Lungs are clear to auscultation bilaterally with no wheezes. Abdomen is soft, non-tender, non-distended. Lower extremities are warm and well-perfused. Plan is EGD/colonoscopy today. Sherri Armstrong MD 12/25/23 Transitional Care Coordination Progress Note: Patient discussed during interdisciplinary rounds. Team members present: SWAPNIL SERRANO MD Plan per Medical/Surgical team: Possible EGD/ colonoscopy tentatively 12/26/23 Monitoring for bleeding Discharge disposition: Home Status-Inpatient Payer-MEDICARE Potential Barriers: None ADOD: 12-27-2023 Pablo Berman RN [facility] [phone] 12/25/23 Transitional Care Coordination Progress Note: Patient discussed during interdisciplinary rounds. Team members present: SWAPNIL SERRANO MD Plan per Medical/Surgical team: PCI evaluation, GI consult Discharge disposition: Home Status-Inpatient Payer- MEDICARE Potential Barriers: None ADOD: 12-27-2023 Pablo Berman RN [facility] [phone] [facility] CONSULT FOLLOW-UP Reason For Consult: acute anemia, on DAPT History Of Present Illness Italia Allen is a 68 y.o. male with a past medical history of HFrEF (EF 45-50%) with CAD s/p PCI to LAD and Lcx, on DAPT, in October 2023 admitted on 12/22/2023 after he was found down by his son. On admission, he was found to be hypoglycemic and there was concern for NSTEMI, with elevated troponin > 1000. GI is consulted for acute on chronic anemia, with Hb 7s, compared to recent 11s during October admission. SUBJECTIVE No acute events overnight EXAM Last Recorded Vitals Blood pressure 149/69, pulse 81, temperature 37.1 C (98.8 F), temperature source Temporal, resp. rate 18, height 1.778 m (5' 10 ), weight 112 kg (247 lb 9.2 oz), SpO2 96%. Intake/Output Summary (Last 24 hours) at 12/25/2023 0756 Last data filed at 12/25/2023 0448 Gross per 24 hour Intake 591.07 ml Output 1525 ml Net -933.93 ml Physical Exam General: well-nourished, no acute distress HEENT: EOM intact, no scleral icterus, moist MM Respiratory: nonlabored breathing on nasal cannula Cardiovascular: RRR Abdomen: Obese, soft, nontender, nondistended Extremities: no edema, no asterixis Neuro: alert and oriented, CNII-XII grossly intact, moves all 4 extremities with no focal deficits Psych: calm and cooperative, flat affect OBJECTIVE Medications Current Facility-Administered Medications: acetaminophen (Tylenol) tablet 975 mg, 975 mg, oral, q6h PRN, Rafi Waller APRN-[place] aspirin chewable tablet 81 mg, 81 mg, oral, Daily, ANA M Baker, 81 mg at 12/24/23 0808 atorvastatin (Lipitor) tablet 80 mg, 80 mg, oral, Nightly, ANA M Baker, 80 mg at 12/24/23 2204 bumetanide (Bumex) tablet 2 mg, 2 mg, oral, BID, Zoila Shane APRN-[place], 2 mg at 12/24/23 1608 carvedilol (Coreg) tablet 25 mg, 25 mg, oral, BID, Rafi Waller APRN-[place], 25 mg at 12/24/23 2204 [Held by provider] celecoxib (CeleBREX) capsule 200 mg, 200 mg, oral, Daily, ANA M Baker dextrose 50 % injection 10-50 mL, 10-50 mL, intravenous, q15 min PRN, ANA M Baker diclofenac sodium (Voltaren) 1 % gel 4 g, 4 g, Topical, 4x daily PRN, ANA M Baker docusate sodium (Colace) capsule 100 mg, 100 mg, oral, BID, ANA M Baker, 100 mg at 12/22/23 1157 enoxaparin (Lovenox) syringe 40 mg, 40 mg, subcutaneous, q24h, ANA M Em, 40 mg at 12/24/23 1226 glucagon HCL 1 mg, 1 mg, intramuscular, q15 min PRN, Rafi Waller APRN-[place] Glucommander - insulin glargine (Lantus) injection 1-125 Units, 1-125 Units, subcutaneous, Nightly, 32 Units at 12/24/23 2207 AND Glucommander - insulin lispro (HumaLOG) injection 0-125 Units, 0-125 Units, subcutaneous, With meals & nightly, 1 Units at 12/24/23 1743 AND Glucommander - insulin lispro (HumaLOG) injection 0-125 Units, 0-125 Units, subcutaneous, PRN AND POCT Glucose, , , 4x daily - AC and at bedtime, ANA M Baker iron sucrose (Venofer) injection 200 mg, 200 mg, intravenous, Daily, ANA M Baker, 200 mg at 12/24/23 0601 lidocaine 4 % patch 1 patch, 1 patch, transdermal, Daily, ANA M Baker lisinopril tablet 40 mg, 40 mg, oral, Daily, ANA M Baker, 40 mg at 12/24/23 0808 melatonin tablet 5 mg, 5 mg, oral, Nightly PRN, ANA M Baker pantoprazole (ProtoNix) injection 40 mg, 40 mg, intravenous, BID, ANA M Em, 40 mg at 12/24/23 2301 perflutren protein A microsphere (Optison) injection 0.5 mL, 0.5 mL, intravenous, Once in imaging, ANA M Baker polyethylene glycol (Glycolax, Miralax) packet 17 g, 17 g, oral, Daily PRN, ANA M Baker polyethylene glycol-electrolytes (Nulytely) solution 4,000 mL, 4,000 mL, oral, Once, ANA M Em prasugrel (Effient) tablet 10 mg, 10 mg, oral, Daily, ANA M Em, 10 mg at 12/24/23 0809 sertraline (Zoloft) tablet 100 mg, 100 mg, oral, Daily, ANA M Baker, 100 mg at 12/24/23 0808 spironolactone (Aldactone) tablet 50 mg, 50 mg, oral, Daily, Zoila Shane, ANTIQUE [employer]OCK[employer] REPAIRER-FIRE PREVENTION CAPTAIN sulfur hexafluoride microsphr (Lumason) injection 24.28 mg, 2 mL, intravenous, Once in imaging, Rafi Faith JUAN RAMON WallerN-FIRE PREVENTION CAPTAIN traMADol (Ultram) tablet 50 mg, 50 mg, oral, q8h PRN, Rafi Cuevas JUAN RAMON WallerN-FIRE PREVENTION CAPTAIN, 50 mg at 12/23/23 2120 Labs Results for orders placed or performed during the hospital encounter of 12/22/23 (from the past 24 hours) POCT GLUCOSE Result Value Ref Range POCT Glucose 100 (H) 74 - 99 mg/dL Transthoracic Echo (TTE) Complete Result Value Ref Range AV pk martin 1.83 m/s AV mn grad 9 mmHg LVOT diam 2.00 cm MV E/A ratio 0.88 LA vol index A/L 29.2 ml/m2 Tricuspid annular plane systolic excursion 2.4 cm LV EF 59 % RV free wall pk S' 16.80 cm/s LVIDd 5.60 cm Aortic Valve Area by Continuity of VTI 1.98 cm2 Aortic Valve Area by Continuity of Peak Velocity 2.15 cm2 AV pk grad 13 mmHg LV A4C EF 58.4 POCT GLUCOSE Result Value Ref Range POCT Glucose 134 (H) 74 - 99 mg/dL POCT GLUCOSE Result Value Ref Range POCT Glucose 77 74 - 99 mg/dL CBC Result Value Ref Range WBC 9.8 4.4 - 11.3 x10*3/uL nRBC 0.0 0.0 - 0.0 /100 WBCs RBC 2.67 (L) 4.50 - 5.90 x10*6/uL Hemoglobin 7.6 (L) 13.5 - 17.5 g/dL Hematocrit 25.0 (L) 41.0 - 52.0 % MCV 94 80 - 100 fL MCH 28.5 26.0 - 34.0 pg MCHC 30.4 (L) 32.0 - 36.0 g/dL RDW 16.2 (H) 11.5 - 14.5 % Platelets 352 150 - 450 x10*3/uL Renal Function Panel Result Value Ref Range Glucose 168 (H) 74 - 99 mg/dL Sodium 140 136 - 145 mmol/L Potassium 3.8 3.5 - 5.3 mmol/L Chloride 101 98 - 107 mmol/L Bicarbonate 31 21 - 32 mmol/L Anion Gap 12 10 - 20 mmol/L Urea Nitrogen 43 (H) 6 - 23 mg/dL Creatinine 1.67 (H) 0.50 - 1.30 mg/dL eGFR 44 (L) >60 mL/min/1.73m*2 Calcium 8.6 8.6 - 10.6 mg/dL Phosphorus 3.0 2.5 - 4.9 mg/dL Albumin 3.1 (L) 3.4 - 5.0 g/dL Magnesium Result Value Ref Range Magnesium 1.92 1.60 - 2.40 mg/dL POCT GLUCOSE Result Value Ref Range POCT Glucose 153 (H) 74 - 99 mg/dL POCT GLUCOSE Result Value Ref Range POCT Glucose 139 (H) 74 - 99 mg/dL Imaging No recent abdominal imaging GI Procedures No prior GI procedures ASSESSMENT / PLAN ASSESSMENT/PLAN: Italia Allen is a 68 y.o. male admitted on 12/22/2023 with acute decompensated heart failure and CAD. GI is consulted for new anemia in the setting of ongoing need for DAPT. His presentation is most consistent with acute on chronic anemia with possible iron deficiency. Ddx includes upper or lower GI bleeding (esophagitis/ gastritis, AVMs, PUD, diverticulosis, Dieulafoy's with the need to rule out malignancy). Patient does not have signs/ symptoms of overt GI bleeding at this time. He would benefit from bidirectional endoscopy as he has never had CRC screening and his bleeding risk remains high while he is on anticoagulation/ antiplatelet medications. Ok to continue effient in the setting of recent stent placement. We will be unable to use coagulation and remove large polyps. 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s: -Will plan for EGD/ colonoscopy tentatively 12/26/23 -Please make patient NPO at 0001 on 12/26/23 -Clear liquid diet tomorrow, 12/25/23 -IV PPI BID pending procedure -Continue to monitor Hb and for signs of overt GI bleeding -Transfuse as needed For Bowel Prep: -Please use bowel prep order set -Clear liquid diet for the day prior to procedure -NPO at 0001 on day of procedure -Heparin gtt will need to be held at least 6 hours prior to procedure - Please administer 4L Golytely on the evening prior to procedure starting at 5pm - Patient must drink all 4 L prep. Prep tastes better cold, mixed with other clear/flavorful beverage such as crystal light or juice. Pt to drink 8 oz glass of Golytely mixture every 15 minutes until ALL liquid is gone. The goal is to drink the solution within 2 hours (i.e. 5PM- 7PM). - Can mix Golytley with ice, juice (non-red), and drink with straw. - Rectal output should be CLEAR (appearance of water or urine). - If the patient's BMs are not clear by 4 AM, nursing should contact on-call primary team cross-cover to order 2 additional liters of Golytely. - Pt must drink these 2 L by 6 AM, otherwise colonoscopy may need to be postponed Patient was seen and discussed with Dr. Cullen. 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s communicated with the primary team via secure chat. Thank you for this consult. Gastroenterology will continue to follow. -During weekday hours of 7am-5pm please do not hesitate to contact me on [employer] Chat or page [phone] if there are any further questions between the weekday hours of 7 AM - 5 PM. -After hours, on weekends, and on holidays, [place] [phone]. Thank you. Bela Rubalcava MD Gastroenterology and Hepatology Fellow [facility] Cosigned by Trevon Cullen MD at 12/25/2023 5:17 PM EST Associated attestation - Trevon Cullen MD - 12/25/2023 5:17 PM EST I saw and evaluated the patient. I personally obtained the bangura and critical portions of the history and physical exam or was physically present for bangura and critical portions performed by the resident/fellow. I reviewed the resident/fellow's documentation and discussed the patient with the resident/fellow. I agree with the resident/fellow's medical decision making as documented in the note. Subjective Data: No events overnight. Denies chest pain, shortness of breath or dizziness. - CLD today then NPO at midnight for colonoscopy and EGD tomorrow - colonoscopy bowel prep to start at 1700 tonight - will consult interventional after GI workup for anemia Objective Data: Last Recorded Vitals: Vitals: 12/24/23 1620 12/24/23 2159 12/24/23 2300 12/25/23 0443 BP: 142/70 175/68 150/66 149/69 BP Location: Right arm Right arm Right arm Right arm Patient Position: Lying Lying Lying Lying Pulse: 69 70 75 81 Resp: 17 20 18 18 Temp: 36.5 C (97.7 F) 37.2 C (99 F) 37.1 C (98.8 F) TempSrc: Temporal Temporal Temporal SpO2: 93% 94% 94% 96% Weight: Height: Last Labs: Results for orders placed or performed during the hospital encounter of 12/22/23 (from the past 24 hours) POCT GLUCOSE Result Value Ref Range POCT Glucose 100 (H) 74 - 99 mg/dL Transthoracic Echo (TTE) Complete Result Value Ref Range AV pk martin 1.83 m/s AV mn grad 9 mmHg LVOT diam 2.00 cm MV E/A ratio 0.88 LA vol index A/L 29.2 ml/m2 Tricuspid annular plane systolic excursion 2.4 cm LV EF 59 % RV free wall pk S' 16.80 cm/s LVIDd 5.60 cm Aortic Valve Area by Continuity of VTI 1.98 cm2 Aortic Valve Area by Continuity of Peak Velocity 2.15 cm2 AV pk grad 13 mmHg LV A4C EF 58.4 POCT GLUCOSE Result Value Ref Range POCT Glucose 134 (H) 74 - 99 mg/dL POCT GLUCOSE Result Value Ref Range POCT Glucose 77 74 - 99 mg/dL CBC Result Value Ref Range WBC 9.8 4.4 - 11.3 x10*3/uL nRBC 0.0 0.0 - 0.0 /100 WBCs RBC 2.67 (L) 4.50 - 5.90 x10*6/uL Hemoglobin 7.6 (L) 13.5 - 17.5 g/dL Hematocrit 25.0 (L) 41.0 - 52.0 % MCV 94 80 - 100 fL MCH 28.5 26.0 - 34.0 pg MCHC 30.4 (L) 32.0 - 36.0 g/dL RDW 16.2 (H) 11.5 - 14.5 % Platelets 352 150 - 450 x10*3/uL Renal Function Panel Result Value Ref Range Glucose 168 (H) 74 - 99 mg/dL Sodium 140 136 - 145 mmol/L Potassium 3.8 3.5 - 5.3 mmol/L Chloride 101 98 - 107 mmol/L Bicarbonate 31 21 - 32 mmol/L Anion Gap 12 10 - 20 mmol/L Urea Nitrogen 43 (H) 6 - 23 mg/dL Creatinine 1.67 (H) 0.50 - 1.30 mg/dL eGFR 44 (L) >60 mL/min/1.73m*2 Calcium 8.6 8.6 - 10.6 mg/dL Phosphorus 3.0 2.5 - 4.9 mg/dL Albumin 3.1 (L) 3.4 - 5.0 g/dL Magnesium Result Value Ref Range Magnesium 1.92 1.60 - 2.40 mg/dL POCT GLUCOSE Result Value Ref Range POCT Glucose 153 (H) 74 - 99 mg/dL POCT GLUCOSE Result Value Ref Range POCT Glucose 139 (H) 74 - 99 mg/dL TROPHS Date/Time Value Ref Range Status 12/22/2023 06:41 PM 366 0 - 53 ng/L Final Comment: Previous result verified on 12/22/2023 1726 on specimen/case [id number] called with component [facility] for procedure Troponin I, High Sensitivity with value 492 ng/L. 12/22/2023 11:49 AM 492 0 - 53 ng/L Final 10/16/2023 01:56 AM 916 0 - 53 ng/L Final BNP Date/Time Value Ref Range Status 12/22/2023 11:49 AM 306 0 - 99 pg/mL Final 10/16/2023 09:06 AM 88 0 - 99 pg/mL Final HGBA1C Date/Time Value Ref Range Status 12/22/2023 11:49 AM 6.8 See comment % Final 10/16/2023 01:56 AM 6.8 see below % Final LDLCALC Date/Time Value Ref Range Status 12/22/2023 06:41 PM 39 <=99 mg/dL Final Comment: Near Borderline AGE Desirable Optimal High High Very High 0-19 Y 0 - 109 --- 110-129 >/= 130 ---- 20-24 Y 0 - 119 --- 120-159 >/= 160 ---- >24 Y 0 - 99 100-129 130-159 160-189 >/=190 VLDL Date/Time Value Ref Range Status 12/22/2023 06:41 PM 37 0 - 40 mg/dL Final Last I/O: I/O last 3 completed shifts: In: 682.5 (6.1 mL/kg) [P.O.:480; I.V.:202.5 (1.8 mL/kg)] Out: 2775 (24.7 mL/kg) [Urine:2775 (0.7 mL/kg/hr)] Weight: 112.3 kg Past Cardiology Tests (Last 3 Years): EKG: ECG 12 Lead 11/13/2023 Normal sinus rhythm Normal ECG When compared with ECG of 16-OCT-2023 08:50, No significant change was found Confirmed by Mere Urban ([id number]) on 11/14/2023 6:48:02 PM ECG 12 lead 10/16/2023 Normal sinus rhythm Prolonged QT Abnormal ECG No previous ECGs available Confirmed by Mark Kennedy ([id number]) on 10/16/2023 5:14:12 PM Echo: 12/24/2023: CONCLUSIONS: 1. Poorly visualized anatomical structures due to suboptimal image quality. 2. Left ventricular ejection fraction is normal, calculated by Patton's biplane at 59%. 3. There is normal right ventricular global systolic function. Ejection Fractions: EF Date/Time Value Ref Range Status 12/24/2023 11:03 AM 59 % Cath: Cardiac Catheterization Procedure 10/23/2023 Stress Test: No results found for this or any previous visit from the past 1095 days. Cardiac Imaging: No results found for this or any previous visit from the past 1095 days. Inpatient Medications: Scheduled medications Medication Dose Route Frequency aspirin 81 mg oral Daily atorvastatin 80 mg oral Nightly bumetanide 2 mg oral BID carvedilol 25 mg oral BID [Held by provider] celecoxib 200 mg oral Daily docusate sodium 100 mg oral BID enoxaparin 40 mg subcutaneous q24h Glucommander - insulin glargine 1-125 Units subcutaneous Nightly And Glucommander - insulin lispro 0-125 Units subcutaneous With meals & nightly iron sucrose 200 mg intravenous Daily lidocaine 1 patch transdermal Daily lisinopril 40 mg oral Daily pantoprazole 40 mg intravenous BID perflutren protein A microsphere 0.5 mL intravenous Once in imaging polyethylene glycol-electrolytes 4,000 mL oral Once prasugrel 10 mg oral Daily sertraline 100 mg oral Daily spironolactone 50 mg oral Daily sulfur hexafluoride microsphr 2 mL intravenous Once in imaging PRN medications Medication acetaminophen dextrose diclofenac sodium glucagon HCL Glucommander - insulin lispro melatonin polyethylene glycol traMADol Continuous Medications Medication Dose Last Rate Physical Exam General: NAD, lying in bed Skin: warm and dry Head/neck: JVD above clavicle at 60 degrees Cardiac: Regular rate and rhythm Pulm: CTAB GI: soft, nontender Extremities: 1+ bilat LE edema to shins Neuro: A/Ox3, no focal neuro deficits Psych: mildly agitated Assessment/Plan Italia Allen is a 68 y.o. male with a PMHx of HLD, HTN, T2DM, HFrEF (LVEF 45 to 50%), and OA who presented to [facility] 12/18 after being found down by his son. Patient was placed on Heparin drip for elevated troponin of 654 which up trended to 1723 and admitted to ICU pending bed availability at [facility]. Admitted to HVI service for ADHF and NSTEMI management. NSTEMI CAD/HLD - presented to OSH s/p syncopal event, found to be hypoglycemic - OSH Troponin peak 1723, admit HS Troponin 492 ->366 - [facility] 10/14: severe 3V CAD, 70 to 80% prox to mid LAD, 90% marginal 1, and SHRIMP TRAWLER of the RCA with collateral filling the distal RCA demonstrating vessel appears to be a good target for revascularization. (Images in Syngo) - evaluated by CTS/Dr. Ruiz, previous admit, given patients labile emotional/mental state did not pursue CABG - 10/22 s/p IVUS guided and orbital atherectomy assisted PCI, LISY to ostial-prox LAD and LISY to Circ by Dr Wiley with plan for outpt consideration of SHRIMP TRAWLER PCI to the RCA - appointment with Dr. Wiley 11/12, deferred PCI given pt was not medically optimized - Lipid panel: Chol 102, HDL 26, LDL 34, Tri 185 - consult Interventional Cardiology after GI workup is complete - stop heparin gtt - cont ASA, statin, coreg - per GI, no need to hold Effient prior to EGD and colonoscopy tomorrow Acute on chronic systolic and diastolic heart failure, HFmrEF - 45-50% - etiology: likely ICM, reports a 20 year history of CHF with unknown EF - 09/2023 TTE ([facility]): EF of 45-50%, no significant valvular disease. No formal report available. Images in Syngo. - BNP: 306 (previously 88) - CXR: enlarged cardiac silhouette with interstitial pulmonary edema - Admit Wt: 115 kg, dc wt 10/23: 111 kg - today's wt pending (112) - appears near euvolemic - stop IV bumex - continue bumex 2mg PO BID - per pt, recently started on home O2, ~2 wks ago (4L), on 2 L this morning, cont to wean as tolerated - TTE 12/24/23: LVEF is normal, calculated to be approximately 59%. 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 Further titration as tolerated, discussed with endo - consider SGLT2 if able to get cost assistance otherwise was over $500 per month HTN - admit BP: 128/75 - SBP last 24 hrs: 126-157 - regimen as above CKD 3b - No recent information on kidney function, last Cr in 2016 was normal - Renal US at [facility] on 10/14 - no acute findings - b/l Cr prev admit ~1.4-1.9 - admit Cr: 1.95 (was 2.09 at OSH) - today's Cr 1.67 (1.68, 1.95) - diuresis as above - Avoid nephrotoxins and hypotension Acute Anemia - likely mixed AOCD / BREEZY - prior admit hgb 10.5-11.4 - admit hgb 7.5 - today's hgb 7.6 - GI consulted, EGD and colonoscopy tomorrow 12/25 - no acute s/s of bleeding - Vit B12 /Folate WNL - iron 34, TIBC 231, % sat 15, ferritin 198 - cont IV Iron sucrose 200 mg x 5 doses - trend daily CBC, transfuse for hgb <7, T&S Osteoarthritis - hold home celecoxib given CKD/CHF/HTN - avoid NSAID's - XS Tylenol q6h PRN, Lidocaine patches - PRN Tramadol 50 mg q8h - Voltaren gel to affected areas QID PRN Grief/Depression - patient lost his August this year - previous admit with labile emotions, varied between tearful/anger/withdrawn - grief/pre parole counseling aide services offered-> patient declines - started on sertraline 50 mg daily 11/08, pt reports no improvement - home sertraline increased to 100 mg daily DVT prophylaxis: lovenox Dispo pending PCI evaluation, GI consult Code Status: Full Code NOK: Antony Allen, son: [phone] Patient seen and discussed with Dr. Armstrong Cosigned by Sherri Armstrong MD at 12/26/2023 11:21 AM EST Subjective Data: No events overnight. Pt disgruntled at hospitalization. Appears near euvolemic. - stop IV bumex, start PO bumex 2mg BID - GI consult for anemia - hold effient per GI, will decided on Cangrelor prior to next dose - stop IV heparin gtt Objective Data: Last Recorded Vitals: Vitals: 12/23/23 2100 12/23/23 2342 12/24/23 0401 12/24/23 0723 BP: 137/66 126/76 150/68 154/79 BP Location: Patient Position: Lying Lying Lying Pulse: 76 99 72 71 Resp: 18 18 18 18 Temp: 36.7 C (98.1 F) 36 C (96.8 F) 36.8 C (98.2 F) 36.3 C (97.3 F) TempSrc: Temporal SpO2: 91% 99% 96% 90% Weight: Height: Last Labs: Results for orders placed or performed during the hospital encounter of 12/22/23 (from the past 24 hours) POCT GLUCOSE Result Value Ref Range POCT Glucose 126 (H) 74 - 99 mg/dL POCT GLUCOSE Result Value Ref Range POCT Glucose 100 (H) 74 - 99 mg/dL CBC Result Value Ref Range WBC 9.3 4.4 - 11.3 x10*3/uL nRBC 0.0 0.0 - 0.0 /100 WBCs RBC 2.74 (L) 4.50 - 5.90 x10*6/uL Hemoglobin 7.8 (L) 13.5 - 17.5 g/dL Hematocrit 25.6 (L) 41.0 - 52.0 % MCV 93 80 - 100 fL MCH 28.5 26.0 - 34.0 pg MCHC 30.5 (L) 32.0 - 36.0 g/dL RDW 16.2 (H) 11.5 - 14.5 % Platelets 327 150 - 450 x10*3/uL Renal Function Panel Result Value Ref Range Glucose 182 (H) 74 - 99 mg/dL Sodium 140 136 - 145 mmol/L Potassium 3.8 3.5 - 5.3 mmol/L Chloride 103 98 - 107 mmol/L Bicarbonate 29 21 - 32 mmol/L Anion Gap 12 10 - 20 mmol/L Urea Nitrogen 49 (H) 6 - 23 mg/dL Creatinine 1.68 (H) 0.50 - 1.30 mg/dL eGFR 44 (L) >60 mL/min/1.73m*2 Calcium 8.7 8.6 - 10.6 mg/dL Phosphorus 3.4 2.5 - 4.9 mg/dL Albumin 3.2 (L) 3.4 - 5.0 g/dL Magnesium Result Value Ref Range Magnesium 1.95 1.60 - 2.40 mg/dL POCT GLUCOSE Result Value Ref Range POCT Glucose 186 (H) 74 - 99 mg/dL Heparin Assay Result Value Ref Range Heparin Unfractionated 0.3 See Comment Below for Therapeutic Ranges IU/mL POCT GLUCOSE Result Value Ref Range POCT Glucose 100 (H) 74 - 99 mg/dL TROPHS Date/Time Value Ref Range Status 12/22/2023 06:41 PM 366 0 - 53 ng/L Final Comment: Previous result verified on 12/22/2023 1726 on specimen/case [id number] called with component [facility] for procedure Troponin I, High Sensitivity with value 492 ng/L. 12/22/2023 11:49 AM 492 0 - 53 ng/L Final 10/16/2023 01:56 AM 916 0 - 53 ng/L Final BNP Date/Time Value Ref Range Status 12/22/2023 11:49 AM 306 0 - 99 pg/mL Final 10/16/2023 09:06 AM 88 0 - 99 pg/mL Final HGBA1C Date/Time Value Ref Range Status 12/22/2023 11:49 AM 6.8 See comment % Final 10/16/2023 01:56 AM 6.8 see below % Final LDLCALC Date/Time Value Ref Range Status 12/22/2023 06:41 PM 39 <=99 mg/dL Final Comment: Near Borderline AGE Desirable Optimal High High Very High 0-19 Y 0 - 109 --- 110-129 >/= 130 ---- 20-24 Y 0 - 119 --- 120-159 >/= 160 ---- >24 Y 0 - 99 100-129 130-159 160-189 >/=190 VLDL Date/Time Value Ref Range Status 12/22/2023 06:41 PM 37 0 - 40 mg/dL Final Last I/O: I/O last 3 completed shifts: In: 663.4 (5.9 mL/kg) [P.O.:240; I.V.:423.4 (3.8 mL/kg)] Out: 2700 (24 mL/kg) [Urine:2700 (0.7 mL/kg/hr)] Weight: 112.3 kg Past Cardiology Tests (Last 3 Years): EKG: ECG 12 Lead 11/13/2023 Normal sinus rhythm Normal ECG When compared with ECG of 16-OCT-2023 08:50, No significant change was found Confirmed by Mere Urban ([id number]) on 11/14/2023 6:48:02 PM ECG 12 lead 10/16/2023 Normal sinus rhythm Prolonged QT Abnormal ECG No previous ECGs available Confirmed by Mark Kennedy ([id number]) on 10/16/2023 5:14:12 PM Echo: No results found for this or any previous visit from the past 1095 days. Ejection Fractions: No results found for: EF Cath: Cardiac Catheterization Procedure 10/23/2023 Stress Test: No results found for this or any previous visit from the past 1095 days. Cardiac Imaging: No results found for this or any previous visit from the past 1095 days. Inpatient Medications: Scheduled medications Medication Dose Route Frequency aspirin 81 mg oral Daily atorvastatin 80 mg oral Nightly bumetanide 2 mg oral BID carvedilol 25 mg oral BID [Held by provider] celecoxib 200 mg oral Daily docusate sodium 100 mg oral BID Glucommander - insulin glargine 1-125 Units subcutaneous Nightly And Glucommander - insulin lispro 0-125 Units subcutaneous With meals & nightly iron sucrose 200 mg intravenous Daily lidocaine 1 patch transdermal Daily lisinopril 40 mg oral Daily pantoprazole 40 mg intravenous BID [Held by provider] prasugrel 10 mg oral Daily sertraline 100 mg oral Daily spironolactone 25 mg oral Daily PRN medications Medication acetaminophen dextrose diclofenac sodium glucagon HCL Glucommander - insulin lispro melatonin polyethylene glycol traMADol Continuous Medications Medication Dose Last Rate Physical Exam General: NAD, lying in bed Skin: warm and dry Head/neck: JVD above clavicle at 60 degrees Cardiac: S1S2 Pulm: CTA GI: soft, nontender Extremities: 1-2+ bilat LE edema to shins Neuro: A/Ox3, no focal neuro deficits Psych: mildly agitated Assessment/Plan Italia Allen is a 68 y.o. male with a PMHx of HLD, HTN, T2DM, HFrEF (LVEF 45 to 50%), and OA who presented to [facility] 10/30 after being found down by his son. Patient was placed on Heparin drip for elevated troponin of 654 which up trended to 1723 and admitted to ICU pending bed availability at [facility]. Admitted to HVI service for ADHF and NSTEMI management. NSTEMI CAD/HLD - presented to OSH s/p syncopal event, found to be hypoglycemic - OSH Troponin peak 1723, admit HS Troponin 492 ->366 - [facility] 10/14: severe 3V CAD, 70 to 80% prox to mid LAD, 90% marginal 1, and SHRIMP TRAWLER of the RCA with collateral filling the distal RCA demonstrating vessel appears to be a good target for revascularization. (Images in Syngo) - evaluated by CTS/Dr. Ruiz, previous admit, given patients labile emotional/mental state did not pursue CABG - 10/22 s/p IVUS guided and orbital atherectomy assisted PCI, LISY to ostial-prox LAD and LISY to Circ by Dr Wiley with plan for outpt consideration of SHRIMP TRAWLER PCI to the RCA - appointment with Dr. Wiley 11/12, deferred PCI given pt was not medically optimized - Lipid panel: Chol 102, HDL 26, LDL 34, Tri 185 - Interventional Cards consulted to re-eval RCA - stop heparin gtt - cont ASA, statin, coreg - holding effient (received this AM, pending GI recs for possible procedure, will place on cangrelor if preferred) Acute on chronic systolic and diastolic heart failure, HFmrEF - 45-50% - etiology: likely ICM, reports a 20 year history of CHF with unknown EF - 09/2023 TTE ([facility]): EF of 45-50%, no significant valvular disease. No formal report available. Images in Syngo. 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 - prev admit Vascular surgery consulted, no surgical intervention recommended - outpatient follow up DM2 - presented to OSH hypoglycemic, no prior or episodes since - Hgb A1C on 10/15: 6.8%, repeat 12/21 6.8% - home regimen: Glargine 60 units daily, Glipizide 10 mg BIDAC - Glucommander ordered: Glargine 40 units daily, Lispro 12 units TIDAC, plus Glucommander corrected dose - Accu-Cheks AC/HS, hypoglycemic protocol (patient refuses CCD) - glucose tabs to be ordered on dc HTN - admit BP: 128/75 - SBP last 24 hrs: 126-157 - regimen as above CKD 3b - No recent information on kidney function, last Cr in 2016 was normal - Renal US at [facility] on 10/14 - no acute findings - b/l Cr prev admit ~1.4-1.9 - admit Cr: 1.95 (was 2.09 at OSH) - today's Cr 1.68 (1.95) - diuresis as above - Avoid nephrotoxins and hypotension Acute Anemia - likely mixed AOCD / BREEZY - prior admit hgb 10.5-11.4 - admit hgb 7.5 - today's hgb 7.8 - GI consulted - no acute s/s of bleeding - Vit B12 /Folate WNL - iron 34, TIBC 231, % sat 15, ferritin 198 - cont IV Iron sucrose 200 mg x 5 doses - trend daily CBC, transfuse for hgb <7, T&S Osteoarthritis - hold home celecoxib given CKD/CHF/HTN - avoid NSAID's - XS Tylenol q6h PRN, Lidocaine patches - PRN Tramadol 50 mg q8h - Voltaren gel to affected areas QID PRN Grief/Depression - patient lost his August this year - previous admit with labile emotions, varied between tearful/anger/withdrawn - grief/pre parole counseling aide services offered-> patient declines - started on sertraline 50 mg daily 11/08, pt reports no improvement - home sertraline increased to 100 mg daily DVT prophylaxis: lovenox Dispo pending PCI evaluation, GI consult Code Status: Full Code NOK: Antony Allen, son: [phone] Seen and discussed with ANA M Kaufman Cosigned by Sherri Armstrong MD at 12/24/2023 12:11 PM EST Associated attestation - Sherri Armstrong MD - 12/24/2023 12:11 PM EST I personally interviewed and examined the patient and the encounter was done in conjunction with the SUDHIR. My impressions is: acute on chronic systolic heart failure and new anemia (after prior PCI). I provided the substantive portion of this visit by personally performing the physical exam component of the encounter. Patient is awake and alert. Pupils are equal and reactive and extra ocular muscles are intact. There is no thyromegaly or significant lymphadenopathy in the neck. Heart is normal rate and rhythm with no murmurs, rubs, or gallops. There is no jugular venous distention. There are no carotid bruits. Lungs are clear to auscultation bilaterally with no wheezes. Abdomen is soft, non-tender, non-distended. Lower extremities are warm and well-perfused. Plan is GI consult for new anemia, optimize GDMT. Sherri Armstrong MD 12/24/23 Transitional Care Coordination Progress Note: Patient discussed during interdisciplinary rounds. Team members present: SWAPNIL SERRANO MD Plan per Medical/Surgical team: Further diuresis, PCI evaluation Discharge disposition: Home Status-Inpatient Payer MEDICARE Potential Barriers: None ADOD: 12-25-2023 Pablo Berman RN [facility] [phone] Discharge Planning Note: Italia Allen is a 68 y.o. male on day 1 of admission presenting with NSTEMI (non-ST elevated myocardial infarction) (Multi). Called and spoke with the patient confirmed all information on the demographics page. Lives with his son has 4 steps to enter his home then one level. Uses oxygen @ 4l at home unsure of the supplier. Had no homecare or DME. Says he has a PCP but unsure of the name. Neris Pascual RN Subjective Data: Patient seen and assessed this morning, ambulating in room and lying in bed, NAD. Denies any CP or SOB, remains hypervolemic, on 2 L this morning. Updated on plan of care, remains flat / disengaged. Overnight Events: No acute events overnight. Today's Plan/Updates: - cont IV diuresis, Bumex 2 mg BID - per pt, recently started on home O2, ~2 wks ago (4L), on 2 L this morning, cont to wean as tolerated - hgb 7.5, iron 34, TIBC 231, % sat 15, ferritin 198, start IV Iron sucrose 200 mg x 5 doses Objective Data: Last Recorded Vitals: Vitals: 12/23/23 0024 12/23/23 0350 12/23/23 0606 12/23/23 0725 BP: 128/67 150/77 155/81 BP Location: Right arm Patient Position: Lying Lying Lying Pulse: 77 76 72 Resp: 18 18 17 Temp: 37.2 C (99 F) 37 C (98.6 F) 36.9 C (98.4 F) TempSrc: Temporal Temporal SpO2: 93% 97% 98% Weight: 112 kg (247 lb 9.2 oz) Height: Last Labs: Results for orders placed or performed during the hospital encounter of 12/22/23 (from the past 24 hours) Comprehensive metabolic panel Result Value Ref Range Glucose 174 (H) 74 - 99 mg/dL Sodium 138 136 - 145 mmol/L Potassium 4.5 3.5 - 5.3 mmol/L Chloride 103 98 - 107 mmol/L Bicarbonate 23 21 - 32 mmol/L Anion Gap 17 10 - 20 mmol/L Urea Nitrogen 48 (H) 6 - 23 mg/dL Creatinine 1.95 (H) 0.50 - 1.30 mg/dL eGFR 37 (L) >60 mL/min/1.73m*2 Calcium 8.3 (L) 8.6 - 10.6 mg/dL Albumin 3.0 (L) 3.4 - 5.0 g/dL Alkaline Phosphatase 63 33 - 136 U/L Total Protein 5.4 (L) 6.4 - 8.2 g/dL AST 12 9 - 39 U/L Bilirubin, Total 0.4 0.0 - 1.2 mg/dL ALT 15 10 - 52 U/L CBC and Auto Differential Result Value Ref Range WBC 8.1 4.4 - 11.3 x10*3/uL nRBC 0.0 0.0 - 0.0 /100 WBCs RBC 2.62 (L) 4.50 - 5.90 x10*6/uL Hemoglobin 7.5 (L) 13.5 - 17.5 g/dL Hematocrit 24.6 (L) 41.0 - 52.0 % MCV 94 80 - 100 fL MCH 28.6 26.0 - 34.0 pg MCHC 30.5 (L) 32.0 - 36.0 g/dL RDW 16.0 (H) 11.5 - 14.5 % Platelets 316 150 - 450 x10*3/uL Neutrophils % 75.5 40.0 - 80.0 % Immature Granulocytes %, Automated 0.9 0.0 - 0.9 % Lymphocytes % 9.7 13.0 - 44.0 % Monocytes % 8.4 2.0 - 10.0 % Eosinophils % 4.9 0.0 - 6.0 % Basophils % 0.6 0.0 - 2.0 % Neutrophils Absolute 6.15 1.20 - 7.70 x10*3/uL Immature Granulocytes Absolute, Automated 0.07 0.00 - 0.70 x10*3/uL Lymphocytes Absolute 0.79 (L) 1.20 - 4.80 x10*3/uL Monocytes Absolute 0.68 0.10 - 1.00 x10*3/uL Eosinophils Absolute 0.40 0.00 - 0.70 x10*3/uL Basophils Absolute 0.05 0.00 - 0.10 x10*3/uL Magnesium Result Value Ref Range Magnesium 1.97 1.60 - 2.40 mg/dL B-Type Natriuretic Peptide Result Value Ref Range BNP 306 (H) 0 - 99 pg/mL Coagulation Screen Result Value Ref Range Protime 13.1 (H) 9.8 - 12.8 seconds INR 1.2 (H) 0.9 - 1.1 aPTT 30 27 - 38 seconds Heparin Assay Result Value Ref Range Heparin Unfractionated <0.1 See Comment Below for Therapeutic Ranges IU/mL Hemoglobin A1c Result Value Ref Range Hemoglobin A1C 6.8 (H) See comment % Estimated Average Glucose 148 Not Established mg/dL Troponin I, High Sensitivity Result Value Ref Range Troponin I, High Sensitivity (CMC) 492 (HH) 0 - 53 ng/L POCT GLUCOSE Result Value Ref Range POCT Glucose 171 (H) 74 - 99 mg/dL Heparin Assay, UFH Result Value Ref Range Heparin Unfractionated 0.1 See Comment Below for Therapeutic Ranges IU/mL Troponin I, High Sensitivity Result Value Ref Range Troponin I, High Sensitivity (CMC) 366 (HH) 0 - 53 ng/L Lipid Panel Result Value Ref Range Cholesterol 102 0 - 199 mg/dL HDL-Cholesterol 26.4 mg/dL Cholesterol/HDL Ratio 3.9 LDL Calculated 39 <=99 mg/dL VLDL 37 0 - 40 mg/dL Triglycerides 185 (H) 0 - 149 mg/dL Non HDL Cholesterol 76 0 - 149 mg/dL Iron and TIBC Result Value Ref Range Iron 34 (L) 35 - 150 ug/dL UIBC 197 110 - 370 ug/dL TIBC 231 (L) 240 - 445 ug/dL % Saturation 15 (L) 25 - 45 % Ferritin Result Value Ref Range Ferritin 198 20 - 300 ng/mL POCT GLUCOSE Result Value Ref Range POCT Glucose 210 (H) 74 - 99 mg/dL POCT GLUCOSE Result Value Ref Range POCT Glucose 209 (H) 74 - 99 mg/dL POCT GLUCOSE Result Value Ref Range POCT Glucose 191 (H) 74 - 99 mg/dL Heparin Assay Result Value Ref Range Heparin Unfractionated 0.4 See Comment Below for Therapeutic Ranges IU/mL Heparin Assay Result Value Ref Range Heparin Unfractionated 0.4 See Comment Below for Therapeutic Ranges IU/mL TROPHS Date/Time Value Ref Range Status 12/22/2023 06:41 PM 366 0 - 53 ng/L Final Comment: Previous result verified on 12/22/2023 1726 on specimen/case [id number] called with component [facility] for procedure Troponin I, High Sensitivity with value 492 ng/L. 12/22/2023 11:49 AM 492 0 - 53 ng/L Final 10/16/2023 01:56 AM 916 0 - 53 ng/L Final BNP Date/Time Value Ref Range Status 12/22/2023 11:49 AM 306 0 - 99 pg/mL Final 10/16/2023 09:06 AM 88 0 - 99 pg/mL Final HGBA1C Date/Time Value Ref Range Status 12/22/2023 11:49 AM 6.8 See comment % Final 10/16/2023 01:56 AM 6.8 see below % Final LDLCALC Date/Time Value Ref Range Status 12/22/2023 06:41 PM 39 <=99 mg/dL Final Comment: Near Borderline AGE Desirable Optimal High High Very High 0-19 Y 0 - 109 --- 110-129 >/= 130 ---- 20-24 Y 0 - 119 --- 120-159 >/= 160 ---- >24 Y 0 - 99 100-129 130-159 160-189 >/=190 VLDL Date/Time Value Ref Range Status 12/22/2023 06:41 PM 37 0 - 40 mg/dL Final Last I/O: I/O last 3 completed shifts: In: 176.7 (1.6 mL/kg) [I.V.:176.7 (1.6 mL/kg)] Out: 1400 (12.5 mL/kg) [Urine:1400 (0.3 mL/kg/hr)] Weight: 112.3 kg Past Cardiology Tests (Last 3 Years): EKG: ECG 12 Lead 11/13/2023 Normal sinus rhythm Normal ECG When compared with ECG of 16-OCT-2023 08:50, No significant change was found Confirmed by Mere Urban ([id number]) on 11/14/2023 6:48:02 PM ECG 12 lead 10/16/2023 Normal sinus rhythm Prolonged QT Abnormal ECG No previous ECGs available Confirmed by Mark Kennedy ([id number]) on 10/16/2023 5:14:12 PM Echo: No results found for this or any previous visit from the past 1095 days. Ejection Fractions: No results found for: EF Cath: Cardiac Catheterization Procedure 10/23/2023 Stress Test: No results found for this or any previous visit from the past 1095 days. Cardiac Imaging: No results found for this or any previous visit from the past 1095 days. Inpatient Medications: Scheduled medications Medication Dose Route Frequency aspirin 81 mg oral Daily atorvastatin 80 mg oral Nightly bumetanide 2 mg intravenous BID carvedilol 25 mg oral BID [Held by provider] celecoxib 200 mg oral Daily docusate sodium 100 mg oral BID Glucommander - insulin glargine 1-125 Units subcutaneous Nightly And Glucommander - insulin lispro 0-125 Units subcutaneous With meals & nightly lidocaine 1 patch transdermal Daily lisinopril 40 mg oral Daily pantoprazole 40 mg oral Daily before breakfast prasugrel 10 mg oral Daily sertraline 100 mg oral Daily spironolactone 25 mg oral Daily PRN medications Medication acetaminophen dextrose diclofenac sodium glucagon HCL Glucommander - insulin lispro heparin melatonin polyethylene glycol traMADol Continuous Medications Medication Dose Last Rate heparin 0-4,000 Units/hr 1,400 Units/hr (12/23/23 0908) Physical Exam: Physical Exam Vitals and nursing note reviewed. Constitutional: General: He is not in acute distress. Appearance: Normal appearance. He is obese. HENT: Head: Atraumatic. Mouth/Throat: Mouth: Mucous membranes are moist. Eyes: Extraocular Movements: Extraocular movements intact. Conjunctiva/sclera: Conjunctivae normal. Neck: Comments: Elevated JVD to mid neck Cardiovascular: Rate and Rhythm: Normal rate and regular rhythm. Pulses: Normal pulses. Heart sounds: Normal heart sounds. Comments: NSR HR 90's on telemetry. Intermittently in bigeminy/ frequent PVC's. Pulmonary: Effort: Pulmonary effort is normal. No respiratory distress. Breath sounds: Normal breath sounds. Comments: CTA, on 2 L this morning Abdominal: General: Bowel sounds are normal. There is distension. Palpations: Abdomen is soft. Tenderness: There is no abdominal tenderness. There is no guarding. Musculoskeletal: General: Normal range of motion. Cervical back: Normal range of motion. Right lower leg: Edema (2+ pitting edema to knees) present. Left lower leg: Edema (2+ pitting edema to knees) present. Skin: General: Skin is warm. Neurological: General: No focal deficit present. Mental Status: He is alert and oriented to person, place, and time. Psychiatric: Mood and Affect: Mood normal. Affect is flat. Behavior: Behavior is withdrawn. Assessment/Plan Italia Allen is a 68 y.o. male with a PMHx of HLD, HTN, T2DM, HFrEF (LVEF 45 to 50%), and OA who presented to [facility] 12/18 after being found down by his son. Patient was placed on Heparin drip for elevated troponin of 654 which up trended to 1723 and admitted to ICU pending bed availability at [facility]. Admitted to HVI service for ADHF and NSTEMI management. NSTEMI CAD/HLD - presented to OSH s/p syncopal event, found to be hypoglycemic - OSH Troponin peak 1723, admit HS Troponin 492->366 - [facility] 10/14: severe 3V CAD, 70 to 80% prox to mid LAD, 90% marginal 1, and SHRIMP TRAWLER of the RCA with collateral filling the distal RCA demonstrating vessel appears to be a good target for revascularization. (Images in Syngo) - evaluated by CTS/Dr. Ruiz, previous admit, given patients labile emotional/mental state did not pursue CABG - 10/22 s/p IVUS guided and orbital atherectomy assisted PCI, LISY to ostial-prox LAD and LISY to Circ by Dr Wiley with plan for outpt consideration of SHRIMP TRAWLER PCI to the RCA - appointment with Dr. Wiley 11/12, deferred PCI given pt was not medically optimized - Lipid panel: Chol 102, HDL 26, LDL 34, Tri 185 - consult Int Cards/Dr. Wiley for evaluation of PCI to SHRIMP TRAWLER RCA once medically optimized - cont Heparin drip at this time, consider discontinuing tomorrow as pt has been on since 12/18 and currently denies CP - Continue ASA 81 mg, Prasugrel 10 mg, Carvedilol 25 mg BID, and atorvastatin 80 mg daily Acute on chronic systolic and diastolic heart failure, HFmrEF - 45-50% - etiology: likely ICM, reports a 20 year history of CHF with unknown EF - 09/2023 TTE ([facility]): EF of 45-50%, no significant valvular disease. No formal report available. Images in Syngo. - pending repeat TTE - admit BNP: 306 (previously 88) - admit 2V CXR: enlarged cardiac silhouette with interstitial pulmonary edema - Admit Weight: 115 kg, dc wt 10/23: 111 kg - daily standing wt: 112 kg - remains hypervolemic with new O2 requirement - cont IV diuresis, Bumex 2 mg BID - per pt, recently started on home O2, ~2 wks ago (4L), on 2 L this morning, cont to wean as tolerated - home diuretic: Bumex 2 mg daily, (after Sourav appt was increased to 4 mg daily x2 weeks, then back to 2 mg daily) - cont Carvedilol 25 mg BID, lisinopril 40 mg, [place] 25 mg daily (home dose 50 mg), not on SGLT2i due to cost - 2L fluid restriction, daily standing weights, strict I&O's 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 - prev admit Vascular surgery consulted, no surgical intervention recommended - outpatient follow up DM2 - presented to OSH hypoglycemic, no prior or episodes since - Hgb A1C on 10/15: 6.8%, repeat 12/21 6.8% - home regimen: Glargine 60 units daily, Glipizide 10 mg BIDAC - Glucommander ordered: Glargine 40 units daily, Lispro 12 units TIDAC, plus Glucommander corrected dose - Accu-Cheks AC/HS, hypoglycemic protocol (patient refuses CCD) HTN - admit BP: 128/75 - SBP last 24 hrs: 126-150 - cont home lisinopril 40mg daily, Coreg 25 mg BID CKD 3b - No recent information on kidney function, last Cr in 2016 was normal - Renal US at [facility] on 10/14 - no acute findings - b/l Cr prev admit ~1.4-1.9 - admit Cr: 1.95 (was 2.09 at OSH) - diuresis as above - Avoid nephrotoxins and hypotension Acute Anemia - likely mixed AOCD / BREEZY - prior admit hgb 10.5-11.4 - admit hgb 7.5 - no acute s/s of bleeding, Vit B12/Folate pending - iron 34, TIBC 231, % sat 15, ferritin 198 - start IV Iron sucrose 200 mg x 5 doses - trend daily CBC, transfuse for hgb <7, T&S Osteoarthritis - hold home celecoxib given CKD/CHF/HTN - avoid NSAID's - XS Tylenol q6h PRN, Lidocaine patches - start PRN Tramadol 50 mg q8h - Voltaren gel to affected areas QID PRN Grief/Depression - patient lost his August this year - previous admit with labile emotions, varied between tearful/anger/withdrawn - grief/ pre parole counseling aide services offered-> patient declines - started on sertraline 50 mg daily 11/08, pt reports no improvement - increase home sertraline to 100 mg daily DVT prophylaxis: Heparin drip Dispo: pending further diuresis, PCI evaluation Code Status: Full Code NOK: Antony Allen, son: [phone] Seen and discussed with attending Dr. Nolan Peripheral IV 12/22/23 20 G Right Antecubital (Active) Site Assessment Clean;Intact;Dry 12/23/23 075 Dressing Type Transparent 12/23/23752 Line Status Flushed;Saline locked 12/23/23 075 Dressing Status Clean;Dry;Occlusive 12/23/23 0753 Number of days: 1 ANA M Baker I conducted a shared care visit with the SUDHIR, briefly patient has ischemic cardiomyopathy with worsening heart failure over the past few months he was admitted after being found down in the setting of hypoglycemia suspect this was not cardiogenic syncope but a hypoglycemic coma responded to glucose infusion he was transferred here for consideration of further PCI which was deferred in the past due to volume overload he remains volume overloaded we will continue diuresis and discussed with interventional cardiology however I am concerned about his relative lack of interest/disengagement he seems quite nonchalant about his worsening clinical situation but does not seem particularly interested in discussing it with me Attempted to get assessment on patient patient of the unit will attempt at a later time documented in this encounter [facility] Work Phone: 12-26-2023 Plan of care note The patient's goals for the shift include The clinical goals for the shift include patient will remain free of S&S of bleeding Over the shift, the patient did not make progress toward the following goals. Barriers to progression include none. 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s to address these barriers include none. [facility] [place] 12-25-2023 Plan of care note The patient's goals for the shift include prepare for colonoscopy & EGD tomorrow The clinical goals for the shift include patient will remain free of S&S of bleeding Over the shift, the patient did make progress toward the following goals. 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s to continue with progression include continue with taking oral prep for procedures & monitor output. Problem: Pain - Adult Goal: Verbalizes/displays adequate comfort level or baseline comfort level Outcome: Progressing Problem: Safety - Adult Goal: Free from fall injury Outcome: Progressing Problem: Discharge Planning Goal: Discharge to home or other facility with appropriate resources Outcome: Progressing Problem: Chronic Conditions and Co-morbidities Goal: Patient's chronic conditions and co-morbidity symptoms are monitored and maintained or improved Outcome: Progressing Problem: Skin Goal: Decreased wound size/increased tissue granulation at next dressing change Outcome: Progressing Goal: Participates in plan/prevention/treatment measures Outcome: Progressing Goal: Prevent/manage excess moisture Outcome: Progressing Goal: Prevent/minimize sheer/friction injuries Outcome: Progressing Goal: Promote/optimize nutrition Outcome: Progressing Goal: Promote skin healing Outcome: Progressing [facility] [place] 12-25-2023 Plan of care note The patient's goals for the shift include The clinical goals for the shift include pt will remain HDS throughout shift Over the shift, the patient did not make progress toward the following goals. Barriers to progression include none. 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s to address these barriers include none. [facility] [place] Work Phone: 12-24-2023 Plan of care note The patient's goals for the shift include The clinical goals for the shift include pt will remain HDS throughout shift Over the shift, the patient did make progress toward the following goals. [facility] Work Phone: 12-24-2023 Plan of care note Patient reviewed with Dr. Wiley. Ultimately had recent PCI and now admitted with syncope with newly reduced Hgb to the mid 7s. Primary team reaching out to Interventional Cardiology for consideration for RCA SHRIMP TRAWLER given mildly elevated Troponin. At this time, it appears that patient's Troponin elevation is likely from new anemia, which also puts into question whether he can be safely be placed on DAPT for 2 months without interruption. His new anemia is also more likely a contributing factor to his syncope as opposed to his RCA SHRIMP TRAWLER. GI is recommending EGD/C-scope. At this time there is no urgency for RCA PCI. Therefore, we would recommend further Hgb optimization and this case can be rediscussed once GI work up is complete and patient appears to be able to take atleast 2 months of DAPT safely. [facility] Work Phone: 12-24-2023 Consult note Associated Order (s): IP CONSULT TO GASTROENTEROLOGY [facility] INITIAL CONSULT NOTE Reason For Consult: anemia, concern for GI bleed SUBJECTIVE History Of Present Illness Italia Allen is a 68 y.o. male with a past medical history of HFrEF (EF 45-50%) with CAD s/p PCI to LAD and Lcx, on DAPT, in October 2023 admitted on 12/22/2023 after he was found down by his son. On admission, he was found to be hypoglycemic and there was concern for NSTEMI, with elevated troponin > 1000. GI is consulted for acute on chronic anemia, with Hb 7s, compared to recent 11s during October admission. Patient is planned for RCA stenting this admission and he will require DAPT for a prolonged period of time. He denies melena, hematemesis, hematochezia, BRBPR. He denies SOB/ PARSONS. He has never undergone endoscopic evaluation (either EGD/ colonoscopy). He is not taking iron supplements at home. Review of Systems: negative except as per HPI Past Medical History: Past Medical History: Diagnosis Date Diabetes mellitus (Multi) Hyperlipidemia Hypertension Home Medications Medications Prior to Admission Medication Sig Dispense Refill Last Dose/Taking aspirin 81 mg chewable tablet Chew 1 tablet (81 mg) once daily. 90 tablet 1 12/22/2023 atorvastatin (Lipitor) 80 mg tablet Take 1 tablet (80 mg) by mouth once daily at bedtime. 30 tablet 2 bumetanide (Bumex) 2 mg tablet Take 2 tablets (4 mg) by mouth once daily for 14 days. Take one tablet in the morning and on , and Sunday only take one tablet in the afternoon 28 tablet 0 bumetanide (Bumex) 2 mg tablet Take 1 tablet (2 mg) by mouth once daily. Do not fill before November 28, 2023. 30 tablet 2 carvedilol (Coreg) 25 mg tablet Take 1 tablet (25 mg) by mouth 2 times a day. 60 tablet 2 celecoxib (CeleBREX) 200 mg capsule once every 24 hours. diclofenac (Voltaren) 75 mg EC tablet Take 1 tablet (75 mg) by mouth if needed. glipiZIDE (Glucotrol) 10 mg tablet Take 1 tablet (10 mg) by mouth 2 times a day before meals. insulin detemir (Levemir Flextouch) 100 unit/mL (3 mL) pen Inject 12 Units under the skin 2 times a day. insulin glargine (Lantus) 100 unit/mL (3 mL) pen Inject 60 Units under the skin once daily. lisinopril 40 mg tablet Take 1 tablet (40 mg) by mouth once daily. 90 tablet 2 nitroglycerin (Nitrostat) 0.[address] 1 tablet (0.4 mg) under the tongue every 5 minutes if needed for chest pain. 100 tablet 12 omeprazole (PriLOSEC) [address] capsule once every 24 hours. prasugrel (Effient) 10 mg tablet Take 1 tablet (10 mg) by mouth once daily for 363 doses. 30 tablet 11 sertraline (Zoloft) 50 mg tablet Take 1 tablet (50 mg) by mouth once daily. spironolactone (Aldactone) 25 mg tablet Take 2 tablets (50 mg) by mouth once daily. 90 tablet 3 Surgical History: Past Surgical History: Procedure Laterality Date CARDIAC CATHETERIZATION N/A 10/23/2023 Procedure: PCI LISY Stent- Coronary; Surgeon: Sahil Wiley MD; Location: [place] [address] [employer]; Service: Cardiovascular; Laterality: N/A; Allergies: No Known Allergies Social History: Social History Socioeconomic History Marital status: Spouse name: Not on file Number of children: Not on file Years of education: Not on file Highest education level: Not on file Occupational History Not on file Tobacco Use Smoking status: Never Smokeless tobacco: Never Substance and Sexual Activity Alcohol use: Yes Comment: social Drug use: Not on file Sexual activity: Not on file Other Topics Concern Not on file Social History Narrative Not on file Social Drivers of Health Financial Resource Strain: Low Risk (12/23/2023) Overall Financial Resource Strain (CARDIA) Difficulty of Paying Living Expenses: Not hard at all Food Insecurity: No Food Insecurity (12/23/2023) Hunger Vital Sign Worried About Running Out of Food in the Last Year: Never true Ran Out of Food in the Last Year: Never true Transportation Needs: No Transportation Needs (12/23/2023) PRAPARE - Transportation Lack of Transportation (Medical): No Lack of Transportation (Non-Medical): No Physical Activity: Not on file Stress: Not on file Social Connections: Not on file Intimate Partner Violence: Not At Risk (12/23/2023) Humiliation, Afraid, Rape, and Kick questionnaire Fear of Current or Ex-Partner: No Emotionally Abused: No Physically Abused: No Sexually Abused: No Housing Stability: Low Risk (12/23/2023) Housing Stability Vital Sign Unable to Pay for Housing in the Last Year: No Number of Times Moved in the Last Year: 0 Homeless in the Last Year: No Family History: No family history on file. EXAM Vitals: Vitals: 12/23/23 2100 12/23/23 2342 12/24/23 0401 12/24/23 0723 BP: 137/66 126/76 150/68 154/79 BP Location: Patient Position: Lying Lying Lying Pulse: 76 99 72 71 Resp: 18 18 18 18 Temp: 36.7 C (98.1 F) 36 C (96.8 F) 36.8 C (98.2 F) 36.3 C (97.3 F) TempSrc: Temporal SpO2: 91% 99% 96% 90% Weight: Height: Failed to redirect to the Timeline version of the [employer] SmartLink. Intake/Output Summary (Last 24 hours) at 12/24/2023 0858 Last data filed at 12/24/2023 0130 Gross per 24 hour Intake 494.57 ml Output 1900 ml Net -1405.43 ml Physical Exam General: well-nourished, no acute distress HEENT: EOM intact, no scleral icterus, moist MM Respiratory: nonlabored breathing on nasal cannula Cardiovascular: RRR Abdomen: Obese, soft, nontender, nondistended Extremities: no edema, no asterixis Neuro: alert and oriented, CNII-XII grossly intact, moves all 4 extremities with no focal deficits Psych: calm and cooperative, flat affect OBJECTIVE Medications Current Facility-Administered Medications: acetaminophen (Tylenol) tablet 975 mg, 975 mg, oral, q6h PRN, ANA M Baker aspirin chewable tablet 81 mg, 81 mg, oral, Daily, Rafi Waller APRN-[place], 81 mg at 12/24/23 0808 atorvastatin (Lipitor) tablet 80 mg, 80 mg, oral, Nightly, Rafi Waller APRN-[place], 80 mg at 12/23/23 2120 bumetanide (Bumex) tablet 2 mg, 2 mg, oral, BID, NAA M Em carvedilol (Coreg) tablet 25 mg, 25 mg, oral, BID, Rafi Waller APRN-[place], 25 mg at 12/24/23 0808 [Held by provider] celecoxib (CeleBREX) capsule 200 mg, 200 mg, oral, Daily, ANA M Baker dextrose 50 % injection 10-50 mL, 10-50 mL, intravenous, q15 min PRN, ANA M Baker diclofenac sodium (Voltaren) 1 % gel 4 g, 4 g, Topical, 4x daily PRN, ANA M Baker docusate sodium (Colace) capsule 100 mg, 100 mg, oral, BID, Rafi Waller APRN-[place], 100 mg at 12/22/23 1157 glucagon HCL 1 mg, 1 mg, intramuscular, q15 min PRN, ANA M Baker Glucommander - insulin glargine (Lantus) injection 1-125 Units, 1-125 Units, subcutaneous, Nightly, 40 Units at 12/23/23 2212 AND Glucommander - insulin lispro (HumaLOG) injection 0-125 Units, 0-125 Units, subcutaneous, With meals & nightly, 1 Units at 12/23/23 2211 AND Glucommander - insulin lispro (HumaLOG) injection 0-125 Units, 0-125 Units, subcutaneous, PRN AND POCT Glucose, , , 4x daily - AC and at bedtime, ANA M Baker iron sucrose (Venofer) injection 200 mg, 200 mg, intravenous, Daily, ANA M Baker, 200 mg at 12/24/23 0601 lidocaine 4 % patch 1 patch, 1 patch, transdermal, Daily, ANA M Baker lisinopril tablet 40 mg, 40 mg, oral, Daily, Rafi Waller APRN-[place], 40 mg at 12/24/23 0808 melatonin tablet 5 mg, 5 mg, oral, Nightly PRN, ANA M Baker pantoprazole (ProtoNix) EC tablet 40 mg, 40 mg, oral, Daily before breakfast, ANA M Baker, 40 mg at 12/24/23 0603 polyethylene glycol (Glycolax, Miralax) packet 17 g, 17 g, oral, Daily PRN, ANA M Baker prasugrel (Effient) tablet 10 mg, 10 mg, oral, Daily, ANA M Baker, 10 mg at 12/24/23 0809 sertraline (Zoloft) tablet 100 mg, 100 mg, oral, Daily, Rafi Waller APRN-[place], 100 mg at 12/24/23 0808 spironolactone (Aldactone) tablet 25 mg, 25 mg, oral, Daily, ANA M Baker, 25 mg at 12/24/23 0808 traMADol (Ultram) tablet 50 mg, 50 mg, oral, q8h PRN, Rafi Waller, ANTIQUE CLOCKS REPAIRER-FIRE PREVENTION CAPTAIN, 50 mg at 12/23/23 2120 Labs Results for orders placed or performed during the hospital encounter of 12/22/23 (from the past 24 hours) POCT GLUCOSE Result Value Ref Range POCT Glucose 159 (H) 74 - 99 mg/dL Vitamin B12 Result Value Ref Range Vitamin B12 283 211 - 911 pg/mL Folate Result Value Ref Range Folate, Serum 5.6 >5.0 ng/mL POCT GLUCOSE Result Value Ref Range POCT Glucose 126 (H) 74 - 99 mg/dL POCT GLUCOSE Result Value Ref Range POCT Glucose 100 (H) 74 - 99 mg/dL CBC Result Value Ref Range WBC 9.3 4.4 - 11.3 x10*3/uL nRBC 0.0 0.0 - 0.0 /100 WBCs RBC 2.74 (L) 4.50 - 5.90 x10*6/uL Hemoglobin 7.8 (L) 13.5 - 17.5 g/dL Hematocrit 25.6 (L) 41.0 - 52.0 % MCV 93 80 - 100 fL MCH 28.5 26.0 - 34.0 pg MCHC 30.5 (L) 32.0 - 36.0 g/dL RDW 16.2 (H) 11.5 - 14.5 % Platelets 327 150 - 450 x10*3/uL Renal Function Panel Result Value Ref Range Glucose 182 (H) 74 - 99 mg/dL Sodium 140 136 - 145 mmol/L Potassium 3.8 3.5 - 5.3 mmol/L Chloride 103 98 - 107 mmol/L Bicarbonate 29 21 - 32 mmol/L Anion Gap 12 10 - 20 mmol/L Urea Nitrogen 49 (H) 6 - 23 mg/dL Creatinine 1.68 (H) 0.50 - 1.30 mg/dL eGFR 44 (L) >60 mL/min/1.73m*2 Calcium 8.7 8.6 - 10.6 mg/dL Phosphorus 3.4 2.5 - 4.9 mg/dL Albumin 3.2 (L) 3.4 - 5.0 g/dL Magnesium Result Value Ref Range Magnesium 1.95 1.60 - 2.40 mg/dL POCT GLUCOSE Result Value Ref Range POCT Glucose 186 (H) 74 - 99 mg/dL Heparin Assay Result Value Ref Range Heparin Unfractionated 0.3 See Comment Below for Therapeutic Ranges IU/mL POCT GLUCOSE Result Value Ref Range POCT Glucose 100 (H) 74 - 99 mg/dL Imaging XR chest 2 views Impression: 1. Findings suggestive of pulmonary interstitial edema. No focal consolidation, pneumothorax, or pleural effusion. GI Procedures No GI procedures available for review ASSESSMENT / PLAN ASSESSMENT/PLAN: Italia Allen is a 68 y.o. male admitted on 12/22/2023 with acute decompensated heart failure and CAD. GI is consulted for new anemia in the setting of ongoing need for DAPT. His presentation is most consistent with acute on chronic anemia with possible iron deficiency. Ddx includes upper or lower GI bleeding (esophagitis/ gastritis, AVMs, PUD, diverticulosis, Dieulafoy's with the need to rule out malignancy). Patient does not have signs/ symptoms of overt GI bleeding at this time. He would benefit from bidirectional endoscopy as he has never had CRC screening and his bleeding risk remains high while he is on anticoagulation/ antiplatelet medications. Ok to continue effient in the setting of recent stent placement. We will be unable to use coagulation and remove large polyps. 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s: -Will plan for EGD/ colonoscopy tentatively 12/26/23 -Please make patient NPO at 0001 on 12/26/23 -Clear liquid diet tomorrow, 12/25/23 -IV PPI BID pending procedure -Continue to monitor Hb and for signs of overt GI bleeding -Transfuse as needed For Bowel Prep: -Please use bowel prep order set -Clear liquid diet for the day prior to procedure -NPO at 0001 on day of procedure -Heparin gtt will need to be held at least 6 hours prior to procedure - Please administer 4L Golytely on the evening prior to procedure starting at 5pm - Patient must drink all 4 L prep. Prep tastes better cold, mixed with other clear/flavorful beverage such as crystal light or juice. Pt to drink 8 oz glass of Golytely mixture every 15 minutes until ALL liquid is gone. The goal is to drink the solution within 2 hours (i.e. 5PM- 7PM). - Can mix Golytley with ice, juice (non-red), and drink with straw. - Rectal output should be CLEAR (appearance of water or urine). - If the patient's BMs are not clear by 4 AM, nursing should contact on-call primary team cross-cover to order 2 additional liters of Golytely. - Pt must drink these 2 L by 6 AM, otherwise colonoscopy may need to be postponed Patient was seen and discussed with Dr. Cullen. 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s communicated with the primary team via secure chat. Thank you for the consultation. GI will continue to follow. Please do not hesitate to contact us again on Epic Chat [place] [phone] between the weekday hours of 7 AM - 5 PM. If there is an urgent concern during the weekend, after-hours, or holidays; then [place] [phone]. Thank you. Bela Rubalcava MD Gastroenterology and Hepatology Fellow [facility] Cosigned by Trevon Cullen MD at 12/24/2023 4:36 PM EST Associated attestation - Trevon Cullen MD - 12/24/2023 4:36 PM EST I saw and evaluated the patient. I personally obtained the bangura and critical portions of the history and physical exam or was physically present for bangura and critical portions performed by the resident/fellow. I reviewed the resident/fellow's documentation and discussed the patient with the resident/fellow. I agree with the resident/fellow's medical decision making as documented in the note. [facility] Work Phone: 12-24-2023 Consult note Associated Order (s): IP CONSULT TO GASTROENTEROLOGY [facility] INITIAL CONSULT NOTE Reason For Consult: anemia, concern for GI bleed SUBJECTIVE History Of Present Illness Italia Allen is a 68 y.o. male with a past medical history of HFrEF (EF 45-50%) with CAD s/p PCI to LAD and Lcx, on DAPT, in October 2023 admitted on 12/22/2023 after he was found down by his son. On admission, he was found to be hypoglycemic and there was concern for NSTEMI, with elevated troponin > 1000. GI is consulted for acute on chronic anemia, with Hb 7s, compared to recent 11s during October admission. Patient is planned for RCA stenting this admission and he will require DAPT for a prolonged period of time. He denies melena, hematemesis, hematochezia, BRBPR. He denies SOB/ PARSONS. He has never undergone endoscopic evaluation (either EGD/ colonoscopy). He is not taking iron supplements at home. Review of Systems: negative except as per HPI Past Medical History: Past Medical History: Diagnosis Date Diabetes mellitus (Multi) Hyperlipidemia Hypertension Home Medications Medications Prior to Admission Medication Sig Dispense Refill Last Dose/Taking aspirin 81 mg chewable tablet Chew 1 tablet (81 mg) once daily. 90 tablet 1 12/22/2023 atorvastatin (Lipitor) 80 mg tablet Take 1 tablet (80 mg) by mouth once daily at bedtime. 30 tablet 2 bumetanide (Bumex) 2 mg tablet Take 2 tablets (4 mg) by mouth once daily for 14 days. Take one tablet in the morning and on , and Sunday only take one tablet in the afternoon 28 tablet 0 bumetanide (Bumex) 2 mg tablet Take 1 tablet (2 mg) by mouth once daily. Do not fill before November 28, 2023. 30 tablet 2 carvedilol (Coreg) 25 mg tablet Take 1 tablet (25 mg) by mouth 2 times a day. 60 tablet 2 celecoxib (CeleBREX) 200 mg capsule once every 24 hours. diclofenac (Voltaren) 75 mg EC tablet Take 1 tablet (75 mg) by mouth if needed. glipiZIDE (Glucotrol) 10 mg tablet Take 1 tablet (10 mg) by mouth 2 times a day before meals. insulin detemir (Levemir Flextouch) 100 unit/mL (3 mL) pen Inject 12 Units under the skin 2 times a day. insulin glargine (Lantus) 100 unit/mL (3 mL) pen Inject 60 Units under the skin once daily. lisinopril 40 mg tablet Take 1 tablet (40 mg) by mouth once daily. 90 tablet 2 nitroglycerin (Nitrostat) 0.[address] 1 tablet (0.4 mg) under the tongue every 5 minutes if needed for chest pain. 100 tablet 12 omeprazole (PriLOSEC) [address] capsule once every 24 hours. prasugrel (Effient) 10 mg tablet Take 1 tablet (10 mg) by mouth once daily for 363 doses. 30 tablet 11 sertraline (Zoloft) 50 mg tablet Take 1 tablet (50 mg) by mouth once daily. spironolactone (Aldactone) 25 mg tablet Take 2 tablets (50 mg) by mouth once daily. 90 tablet 3 Surgical History: Past Surgical History: Procedure Laterality Date CARDIAC CATHETERIZATION N/A 10/23/2023 Procedure: PCI LISY Stent- Coronary; Surgeon: Sahil Wiley MD; Location: [place] [address] Cardiac [employer]; Service: Cardiovascular; Laterality: N/A; Allergies: No Known Allergies Social History: Social History Socioeconomic History Marital status: Spouse name: Not on file Number of children: Not on file Years of education: Not on file Highest education level: Not on file Occupational History Not on file Tobacco Use Smoking status: Never Smokeless tobacco: Never Substance and Sexual Activity Alcohol use: Yes Comment: social Drug use: Not on file Sexual activity: Not on file Other Topics Concern Not on file Social History Narrative Not on file Social Drivers of Health Financial Resource Strain: Low Risk (12/23/2023) Overall Financial Resource Strain (CARDIA) Difficulty of Paying Living Expenses: Not hard at all Food Insecurity: No Food Insecurity (12/23/2023) Hunger Vital Sign Worried About Running Out of Food in the Last Year: Never true Ran Out of Food in the Last Year: Never true Transportation Needs: No Transportation Needs (12/23/2023) PRAPARE - Transportation Lack of Transportation (Medical): No Lack of Transportation (Non-Medical): No Physical Activity: Not on file Stress: Not on file Social Connections: Not on file Intimate Partner Violence: Not At Risk (12/23/2023) Humiliation, Afraid, Rape, and Kick questionnaire Fear of Current or Ex-Partner: No Emotionally Abused: No Physically Abused: No Sexually Abused: No Housing Stability: Low Risk (12/23/2023) Housing Stability Vital Sign Unable to Pay for Housing in the Last Year: No Number of Times Moved in the Last Year: 0 Homeless in the Last Year: No Family History: No family history on file. EXAM Vitals: Vitals: 12/23/23 2100 12/23/23 2342 12/24/23 0401 12/24/23 0723 BP: 137/66 126/76 150/68 154/79 BP Location: Patient Position: Lying Lying Lying Pulse: 76 99 72 71 Resp: 18 18 18 18 Temp: 36.7 C (98.1 F) 36 C (96.8 F) 36.8 C (98.2 F) 36.3 C (97.3 F) TempSrc: Temporal SpO2: 91% 99% 96% 90% Weight: Height: Failed to redirect to the Timeline version of the [employer] SmartLink. Intake/Output Summary (Last 24 hours) at 12/24/2023 0858 Last data filed at 12/24/2023 0130 Gross per 24 hour Intake 494.57 ml Output 1900 ml Net -1405.43 ml Physical Exam General: well-nourished, no acute distress HEENT: EOM intact, no scleral icterus, moist MM Respiratory: nonlabored breathing on nasal cannula Cardiovascular: RRR Abdomen: Obese, soft, nontender, nondistended Extremities: no edema, no asterixis Neuro: alert and oriented, CNII-XII grossly intact, moves all 4 extremities with no focal deficits Psych: calm and cooperative, flat affect OBJECTIVE Medications Current Facility-Administered Medications: acetaminophen (Tylenol) tablet 975 mg, 975 mg, oral, q6h PRN, ANA M Baker aspirin chewable tablet 81 mg, 81 mg, oral, Daily, Rafi Waller APRN-[place], 81 mg at 12/24/23 0808 atorvastatin (Lipitor) tablet 80 mg, 80 mg, oral, Nightly, Rafi Waller APRN-[place], 80 mg at 12/23/23 2120 bumetanide (Bumex) tablet 2 mg, 2 mg, oral, BID, ANA M Em carvedilol (Coreg) tablet 25 mg, 25 mg, oral, BID, ANA M Baker, 25 mg at 12/24/23 0808 [Held by provider] celecoxib (CeleBREX) capsule 200 mg, 200 mg, oral, Daily, ANA M Baker dextrose 50 % injection 10-50 mL, 10-50 mL, intravenous, q15 min PRN, ANA M Baker diclofenac sodium (Voltaren) 1 % gel 4 g, 4 g, Topical, 4x daily PRN, ANA M Baker docusate sodium (Colace) capsule 100 mg, 100 mg, oral, BID, ANA M Baker, 100 mg at 12/22/23 1157 glucagon HCL 1 mg, 1 mg, intramuscular, q15 min PRN, ANA M Baker Glucommander - insulin glargine (Lantus) injection 1-125 Units, 1-125 Units, subcutaneous, Nightly, 40 Units at 12/23/23 2212 AND Glucommander - insulin lispro (HumaLOG) injection 0-125 Units, 0-125 Units, subcutaneous, With meals & nightly, 1 Units at 12/23/23 2211 AND Glucommander - insulin lispro (HumaLOG) injection 0-125 Units, 0-125 Units, subcutaneous, PRN AND POCT Glucose, , , 4x daily - AC and at bedtime, ANA M Baker iron sucrose (Venofer) injection 200 mg, 200 mg, intravenous, Daily, ANA M Baker, 200 mg at 12/24/23 0601 lidocaine 4 % patch 1 patch, 1 patch, transdermal, Daily, ANA M Baker lisinopril tablet 40 mg, 40 mg, oral, Daily, ANA M Baker, 40 mg at 12/24/23 0808 melatonin tablet 5 mg, 5 mg, oral, Nightly PRN, ANA M Baker pantoprazole (ProtoNix) EC tablet 40 mg, 40 mg, oral, Daily before breakfast, ANA M Baker, 40 mg at 12/24/23 0603 polyethylene glycol (Glycolax, Miralax) packet 17 g, 17 g, oral, Daily PRN, ANA M Baker prasugrel (Effient) tablet 10 mg, 10 mg, oral, Daily, ANA M Baker, 10 mg at 12/24/23 0809 sertraline (Zoloft) tablet 100 mg, 100 mg, oral, Daily, Rafi WallerJUAN RAMONN-FIRE PREVENTION CAPTAIN, 100 mg at 12/24/23 0808 spironolactone (Aldactone) tablet 25 mg, 25 mg, oral, Daily, Rafi Waller, ANTIQUE CLOCKS REPAIRER-FIRE PREVENTION CAPTAIN, 25 mg at 12/24/23 0808 traMADol (Ultram) tablet 50 mg, 50 mg, oral, q8h PRN, Rafi WallerJUAN RAMONN-FIRE PREVENTION CAPTAIN, 50 mg at 12/23/23 2120 Labs Results for orders placed or performed during the hospital encounter of 12/22/23 (from the past 24 hours) POCT GLUCOSE Result Value Ref Range POCT Glucose 159 (H) 74 - 99 mg/dL Vitamin B12 Result Value Ref Range Vitamin B12 283 211 - 911 pg/mL Folate Result Value Ref Range Folate, Serum 5.6 >5.0 ng/mL POCT GLUCOSE Result Value Ref Range POCT Glucose 126 (H) 74 - 99 mg/dL POCT GLUCOSE Result Value Ref Range POCT Glucose 100 (H) 74 - 99 mg/dL CBC Result Value Ref Range WBC 9.3 4.4 - 11.3 x10*3/uL nRBC 0.0 0.0 - 0.0 /100 WBCs RBC 2.74 (L) 4.50 - 5.90 x10*6/uL Hemoglobin 7.8 (L) 13.5 - 17.5 g/dL Hematocrit 25.6 (L) 41.0 - 52.0 % MCV 93 80 - 100 fL MCH 28.5 26.0 - 34.0 pg MCHC 30.5 (L) 32.0 - 36.0 g/dL RDW 16.2 (H) 11.5 - 14.5 % Platelets 327 150 - 450 x10*3/uL Renal Function Panel Result Value Ref Range Glucose 182 (H) 74 - 99 mg/dL Sodium 140 136 - 145 mmol/L Potassium 3.8 3.5 - 5.3 mmol/L Chloride 103 98 - 107 mmol/L Bicarbonate 29 21 - 32 mmol/L Anion Gap 12 10 - 20 mmol/L Urea Nitrogen 49 (H) 6 - 23 mg/dL Creatinine 1.68 (H) 0.50 - 1.30 mg/dL eGFR 44 (L) >60 mL/min/1.73m*2 Calcium 8.7 8.6 - 10.6 mg/dL Phosphorus 3.4 2.5 - 4.9 mg/dL Albumin 3.2 (L) 3.4 - 5.0 g/dL Magnesium Result Value Ref Range Magnesium 1.95 1.60 - 2.40 mg/dL POCT GLUCOSE Result Value Ref Range POCT Glucose 186 (H) 74 - 99 mg/dL Heparin Assay Result Value Ref Range Heparin Unfractionated 0.3 See Comment Below for Therapeutic Ranges IU/mL POCT GLUCOSE Result Value Ref Range POCT Glucose 100 (H) 74 - 99 mg/dL Imaging XR chest 2 views Impression: 1. Findings suggestive of pulmonary interstitial edema. No focal consolidation, pneumothorax, or pleural effusion. GI Procedures No GI procedures available for review ASSESSMENT / PLAN ASSESSMENT/PLAN: Italia Allen is a 68 y.o. male admitted on 12/22/2023 with acute decompensated heart failure and CAD. GI is consulted for new anemia in the setting of ongoing need for DAPT. His presentation is most consistent with acute on chronic anemia with possible iron deficiency. Ddx includes upper or lower GI bleeding (esophagitis/ gastritis, AVMs, PUD, diverticulosis, Dieulafoy's with the need to rule out malignancy). Patient does not have signs/ symptoms of overt GI bleeding at this time. He would benefit from bidirectional endoscopy as he has never had CRC screening and his bleeding risk remains high while he is on anticoagulation/ antiplatelet medications. Ok to continue effient in the setting of recent stent placement. We will be unable to use coagulation and remove large polyps. 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s: -Will plan for EGD/ colonoscopy tentatively 12/26/23 -Please make patient NPO at 0001 on 12/26/23 -Clear liquid diet tomorrow, 12/25/23 -IV PPI BID pending procedure -Continue to monitor Hb and for signs of overt GI bleeding -Transfuse as needed For Bowel Prep: -Please use bowel prep order set -Clear liquid diet for the day prior to procedure -NPO at 0001 on day of procedure -Heparin gtt will need to be held at least 6 hours prior to procedure - Please administer 4L Golytely on the evening prior to procedure starting at 5pm - Patient must drink all 4 L prep. Prep tastes better cold, mixed with other clear/flavorful beverage such as crystal light or juice. Pt to drink 8 oz glass of Golytely mixture every 15 minutes until ALL liquid is gone. The goal is to drink the solution within 2 hours (i.e. 5PM- 7PM). - Can mix Golytley with ice, juice (non-red), and drink with straw. - Rectal output should be CLEAR (appearance of water or urine). - If the patient's BMs are not clear by 4 AM, nursing should contact on-call primary team cross-cover to order 2 additional liters of Golytely. - Pt must drink these 2 L by 6 AM, otherwise colonoscopy may need to be postponed Patient was seen and discussed with Dr. Cullen. 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s communicated with the primary team via secure chat. Thank you for the consultation. GI will continue to follow. Please do not hesitate to contact us again on [employer] Chat [place] [phone] between the weekday hours of 7 AM - 5 PM. If there is an urgent concern during the weekend, after-hours, or holidays; then [place] [phone]. Thank you. Bela Rubalcava MD Gastroenterology and Hepatology Fellow [facility] Cosigned by Trevon Cullen MD at 12/24/2023 4:36 PM EST Associated attestation - Trevon Cullen MD - 12/24/2023 4:36 PM EST I saw and evaluated the patient. I personally obtained the bangura and critical portions of the history and physical exam or was physically present for bangura and critical portions performed by the resident/fellow. I reviewed the resident/fellow's documentation and discussed the patient with the resident/fellow. I agree with the resident/fellow's medical decision making as documented in the note. documented in this encounter [facility] Work Phone: 12-24-2023 Plan of care note The patient's goals for the shift include The clinical goals for the shift include Pt will remain HDS throughout the shift Over the shift, the patient did not make progress toward the following goals. Barriers to progression include . 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s to address these barriers include . [facility] Work Phone: 12-23-2023 Plan of care note The patient's goals for the shift include The clinical goals for the shift include pt will remain HDS throughout the shift Over the shift, the patient did make progress toward the following goals. [facility] Work Phone: 12-23-2023 Hospital Note Formatting of t his note might be different from the original. Itlaia Allen is a 68 y.o. male with a PMHx of HLD, HTN, T2DM, HFrEF (LVEF 45 to 50%), and OA who presented to [facility] 12/18 after being found down by his son. At time of EMS arrival BG was found to be 35, which responded to an Amp of D50. Trauma workup negative for any acute findings. EKG without any ST elevations or depressions. Patient was placed on Heparin drip for elevated troponin of 654 which up trended to 1723 and admitted to ICU pending bed availability at [facility]. Upon arrival to [facility] patient denies having any chest pain or any chest pain since admission to OSH. He does endorse ongoing intermittent episodes of chest discomfort, dyspnea with very minimal exertion, as well as worsening lower extremity swelling. He also endorses chronic severe back pain and decreased appetite with constipation. He denies any fevers/chills, N/V, dizziness/ lightheadedness. Patient was recently admitted 10/14-10/23 for ADHF as well as NSTEMI. LHC showed 3VD, evaluated by CTS for CABG evaluation, but found to not be a surgical candidate due to patients labile emotional/mental state, and concerns about recovery post surgery, decision was made to pursue PCI. Patient was taken for staged PCI on 10/22, IVUS guided PCI to Lcx and LAD with plan to follow up with Dr. Wiley outpatient for consideration of SHRIMP TRAWLER PCI to RCA. At follow up appointment with Dr. Wiley 11/12 decision was made to defer consideration of PCI given pt was not medically optimized. Diuretic dose was increased and spironolactone added with plan to return to clinic in 4 weeks. Patient admitted to HVI service for further HF optimization and NSTEMI management. On admission patient found to be significantly volume overloaded. Of note, patient also recently prescribed home oxygen (4 L) by OSH for hypoxic respiratory failure in setting of acute decompensated heart failure. Able to wean to 2L NC with SpO2 > 90% at day of discharge. Patient started on low-dose amlodipine on day of discharge for mild HTN. Patient diuresed with IVP Bumex with improvement in symptoms and fluid status. Successfully weaned to bumex 2mg PO BID. He was noted to be anemic with Hgb of 7.5, previously 10.5-11.4 on admission the end of September. GI was consulted who performed an EGD and colonoscopy on 12/25 which showed linear gastric antral ectasia with oozing of blood. 5 bands were placed at the site. 8mm Inflammatory polyp in the greater curve of the stomach with one band placed successfully. Also one 8mm pedunculated, benign polyp. Diverticulosis in descending colon, 20mm transverse colon polyp which was not remove due patient being on Effient. GI recommends follow up for 20mm polyp removal for risk mitigation, but timing of polyp removal dependent on need to hold antiplatelet therapy. Timing of procedure will ultimately be up to interventional cardiology in association with GI. No high dose PPI warranted per GI. Interventional cardiology / Dr. Wiley notified of patient's status. Appointment scheduled for 12/31 to evaluate candidacy for PCI to SHRIMP TRAWLER of RCA. Patient transitioned from home diabetes regimen to Glucommander while inpatient. Home glargine decreased to 50 units daily on discharge and glucose tablets/intranasal glucagon prescribed for home going in case of hypoglycemic occurrence/emergency, respectively. Pt provided instructions on identifying hypoglycemia and ways to treat. Heparin drip continued on admission, discontinued after troponin's down trended given pt completed >48 hrs and denied having any chest pain. Pt denied chest pain on day of discharge. Lovenox for DVT PPX. Acute BREEZY likely secondary to upper GI findings. Pt treated with IV iron while inpatient, transitioned to PO regimen for discharge. Patient with ongoing depression, home sertraline titrated as indicated. Patient declined any counseling or therapy consultation. Upon review of medications, lab values, and vital signs. Pt was deemed stable for discharge in satisfactory condition. Pt's most recent weight from 12/22 of 112kg, refused discharge weight. More than 60 minutes were spent in coordinating patient discharge. [facility] Work Phone: 12-23-2023 Plan of care note The patient's goals for the shift include The clinical goals for the shift include pt will be HDS throughout the shift Over the shift, the patient did not make progress toward the following goals. Barriers to progression include . 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s to address these barriers include . [facility] Work Phone: 12-22-2023 History and physical note History Of Present Illness: Italia Allen is a 68 y.o. male with a PMHx of HLD, HTN, T2DM, HFrEF (LVEF 45 to 50%), and OA who presented to [facility] 12/18 after being found down by his son. At time of EMS arrival BG was found to be 35, which responded to an Amp of D50. Trauma workup negative for any acute findings. EKG without any ST elevations or depressions. Patient was placed on Heparin drip for elevated troponin of 654 which up trended to 1723 and admitted to ICU pending bed availability at [facility]. Upon arrival to [facility] patient denies having any chest pain or any chest pain since admission to OSH. He does endorse ongoing intermittent episodes of chest discomfort, dyspnea with very minimal exertion, as well as worsening lower extremity swelling. He also endorses chronic severe back pain and decreased appetite with constipation. He denies any fevers/chills, N/V, dizziness/ lightheadedness. Patient was recently admitted 10/14-10/23 for ADHF as well as NSTEMI. LHC showed 3VD, evaluated by CTS for CABG evaluation, but found to not be a surgical candidate due to patients labile emotional/mental state, and concerns about recovery post surgery, decision was made to pursue PCI. Patient was taken for staged PCI on 10/22, IVUS guided PCI to Lcx and LAD with plan to follow up with Dr. Wiley outpatient for consideration of SHRIMP TRAWLER PCI to RCA. At follow up appointment with Dr. Wiley 11/12 decision was made to defer consideration of PCI given pt was not medically optimized. Diuretic dose was increased and spironolactone added with plan to return to clinic in 4 weeks. Patient admitted to HVI service for further HF optimization and NSTEMI management. Last Recorded Vitals: Vitals: 12/22/23 1123 12/22/23 1300 12/22/23 1532 12/22/23 2100 BP: 126/70 138/70 BP Location: Right arm Patient Position: Lying Lying Pulse: 79 80 Resp: 18 18 Temp: 36.6 C (97.9 F) 37.2 C (99 F) TempSrc: Temporal Temporal SpO2: 97% 97% Weight: 115 kg (252 lb 13.9 oz) Height: 1.778 m (5' 10 ) Last Labs: Results for orders placed or performed during the hospital encounter of 12/22/23 (from the past 24 hours) Comprehensive metabolic panel Result Value Ref Range Glucose 174 (H) 74 - 99 mg/dL Sodium 138 136 - 145 mmol/L Potassium 4.5 3.5 - 5.3 mmol/L Chloride 103 98 - 107 mmol/L Bicarbonate 23 21 - 32 mmol/L Anion Gap 17 10 - 20 mmol/L Urea Nitrogen 48 (H) 6 - 23 mg/dL Creatinine 1.95 (H) 0.50 - 1.30 mg/dL eGFR 37 (L) >60 mL/min/1.73m*2 Calcium 8.3 (L) 8.6 - 10.6 mg/dL Albumin 3.0 (L) 3.4 - 5.0 g/dL Alkaline Phosphatase 63 33 - 136 U/L Total Protein 5.4 (L) 6.4 - 8.2 g/dL AST 12 9 - 39 U/L Bilirubin, Total 0.4 0.0 - 1.2 mg/dL ALT 15 10 - 52 U/L CBC and Auto Differential Result Value Ref Range WBC 8.1 4.4 - 11.3 x10*3/uL nRBC 0.0 0.0 - 0.0 /100 WBCs RBC 2.62 (L) 4.50 - 5.90 x10*6/uL Hemoglobin 7.5 (L) 13.5 - 17.5 g/dL Hematocrit 24.6 (L) 41.0 - 52.0 % MCV 94 80 - 100 fL MCH 28.6 26.0 - 34.0 pg MCHC 30.5 (L) 32.0 - 36.0 g/dL RDW 16.0 (H) 11.5 - 14.5 % Platelets 316 150 - 450 x10*3/uL Neutrophils % 75.5 40.0 - 80.0 % Immature Granulocytes %, Automated 0.9 0.0 - 0.9 % Lymphocytes % 9.7 13.0 - 44.0 % Monocytes % 8.4 2.0 - 10.0 % Eosinophils % 4.9 0.0 - 6.0 % Basophils % 0.6 0.0 - 2.0 % Neutrophils Absolute 6.15 1.20 - 7.70 x10*3/uL Immature Granulocytes Absolute, Automated 0.07 0.00 - 0.70 x10*3/uL Lymphocytes Absolute 0.79 (L) 1.20 - 4.80 x10*3/uL Monocytes Absolute 0.68 0.10 - 1.00 x10*3/uL Eosinophils Absolute 0.40 0.00 - 0.70 x10*3/uL Basophils Absolute 0.05 0.00 - 0.10 x10*3/uL Magnesium Result Value Ref Range Magnesium 1.97 1.60 - 2.40 mg/dL B-Type Natriuretic Peptide Result Value Ref Range BNP 306 (H) 0 - 99 pg/mL Coagulation Screen Result Value Ref Range Protime 13.1 (H) 9.8 - 12.8 seconds INR 1.2 (H) 0.9 - 1.1 aPTT 30 27 - 38 seconds Heparin Assay Result Value Ref Range Heparin Unfractionated <0.1 See Comment Below for Therapeutic Ranges IU/mL Hemoglobin A1c Result Value Ref Range Hemoglobin A1C 6.8 (H) See comment % Estimated Average Glucose 148 Not Established mg/dL Troponin I, High Sensitivity Result Value Ref Range Troponin I, High Sensitivity (CMC) 492 (HH) 0 - 53 ng/L POCT GLUCOSE Result Value Ref Range POCT Glucose 171 (H) 74 - 99 mg/dL Heparin Assay, UFH Result Value Ref Range Heparin Unfractionated 0.1 See Comment Below for Therapeutic Ranges IU/mL Troponin I, High Sensitivity Result Value Ref Range Troponin I, High Sensitivity (CMC) 366 (HH) 0 - 53 ng/L POCT GLUCOSE Result Value Ref Range POCT Glucose 210 (H) 74 - 99 mg/dL POCT GLUCOSE Result Value Ref Range POCT Glucose 209 (H) 74 - 99 mg/dL POCT GLUCOSE Result Value Ref Range POCT Glucose 191 (H) 74 - 99 mg/dL Troponin I, High Sensitivity (CMC) Date/Time Value Ref Range Status 12/22/2023 06:41 PM 366 (HH) 0 - 53 ng/L Final Comment: Previous result verified on 12/22/2023 1726 on specimen/case [id number] called with component [facility] for procedure Troponin I, High Sensitivity with value 492 ng/L. 12/22/2023 11:49 AM 492 (HH) 0 - 53 ng/L Final 10/16/2023 01:56 AM 916 (HH) 0 - 53 ng/L Final BNP Date/Time Value Ref Range Status 12/22/2023 11:49 AM 306 (H) 0 - 99 pg/mL Final 10/16/2023 09:06 AM 88 0 - 99 pg/mL Final Hemoglobin A1C Date/Time Value Ref Range Status 12/22/2023 11:49 AM 6.8 (H) See comment % Final 10/16/2023 01:56 AM 6.8 (H) see below % Final Last I/O: I/O last 3 completed shifts: In: 69 (0.6 mL/kg) [I.V.:69 (0.6 mL/kg)] Out: 600 (5.2 mL/kg) [Urine:600 (0.1 mL/kg/hr)] Weight: 114.7 kg Past Cardiology Tests (Last 3 Years): EKG: ECG 12 Lead 11/13/2023 ECG 12 lead 10/16/2023 Echo: No results found for this or any previous visit from the past 1095 days. Ejection Fractions: No results found for: EF Cath: Cardiac Catheterization Procedure 10/23/2023 Stress Test: No results found for this or any previous visit from the past 1095 days. Cardiac Imaging: No results found for this or any previous visit from the past 1095 days. Past Medical History: He has a past medical history of Diabetes mellitus (Multi), Hyperlipidemia, and Hypertension. Past Surgical History: He has a past surgical history that includes Cardiac catheterization (N/A, 10/23/2023). Social History: He reports that he has never smoked. He has never used smokeless tobacco. He reports current alcohol use. No history on file for drug use. Family History: No family history on file. Allergies: Patient has no known allergies. Inpatient Medications: Scheduled medications Medication Dose Route Frequency acetaminophen 1,000 mg intravenous Once [START ON 12/23/2023] aspirin 81 mg oral Daily atorvastatin 80 mg oral Nightly carvedilol 25 mg oral BID [Held by provider] celecoxib 200 mg oral Daily docusate sodium 100 mg oral BID Glucommander - insulin glargine 1-125 Units subcutaneous Nightly And Glucommander - insulin lispro 0-125 Units subcutaneous With meals & nightly [START ON 12/23/2023] lisinopril 40 mg oral Daily [START ON 12/23/2023] pantoprazole 40 mg oral Daily before breakfast [START ON 12/23/2023] prasugrel 10 mg oral Daily [START ON 12/23/2023] sertraline 100 mg oral Daily [START ON 12/23/2023] spironolactone 50 mg oral Daily PRN medications Medication acetaminophen dextrose glucagon HCL Glucommander - insulin lispro heparin melatonin polyethylene glycol Continuous Medications Medication Dose Last Rate heparin 0-4,000 Units/hr 1,400 Units/hr (12/22/232000) Outpatient Medications: Current Outpatient Medications Medication Instructions aspirin 81 mg, oral, Daily atorvastatin (LIPITOR) 80 mg, oral, Nightly bumetanide (BUMEX) 4 mg, oral, Daily, Take one tablet in the morning and on , and Sunday only take one tablet in the afternoon bumetanide (BUMEX) 2 mg, oral, Daily carvedilol (COREG) 25 mg, oral, 2 times daily celecoxib (CeleBREX) 200 mg capsule Every 24 hours diclofenac (VOLTAREN) 75 mg, oral, As needed glipiZIDE (GLUCOTROL) 10 mg, oral, 2 times daily before meals insulin detemir (LEVEMIR FLEXTOUCH) 12 Units, subcutaneous, 2 times daily insulin glargine (LANTUS) 60 Units, subcutaneous, Daily lisinopril 40 mg, oral, Daily nitroglycerin (NITROSTAT) 0.4 mg, sublingual, Every 5 min PRN omeprazole (PriLOSEC) [address] capsule Every 24 hours prasugrel (EFFIENT) 10 mg, oral, Daily sertraline (Zoloft) 50 mg tablet 1 tablet, oral, Daily spironolactone (ALDACTONE) 50 mg, oral, Daily Review of Systems Constitutional: Positive for decreased appetite. Negative for chills, diaphoresis and fever. HENT: Negative for congestion. Eyes: Negative. Cardiovascular: Positive for chest pain, dyspnea on exertion and leg swelling. Negative for palpitations. Respiratory: Positive for shortness of breath. Negative for cough, hemoptysis, sputum production and wheezing. Endocrine: Negative. Hematologic/Lymphatic: Negative. Musculoskeletal: Positive for arthritis, back pain and joint pain. Gastrointestinal: Positive for bloating and constipation. Negative for abdominal pain, bowel incontinence, nausea and vomiting. Genitourinary: Negative for bladder incontinence. Neurological: Negative for dizziness, headaches and light-headedness. Psychiatric/Behavioral: Positive for depression. The patient has insomnia. Allergic/Immunologic: Negative. Physical Exam: Physical Exam Vitals reviewed. Constitutional: General: He is not in acute distress. Appearance: He is obese. HENT: Head: Atraumatic. Mouth/Throat: Mouth: Mucous membranes are moist. Eyes: Extraocular Movements: Extraocular movements intact. Conjunctiva/sclera: Conjunctivae normal. Neck: Comments: JVD elevated to mid-neck Cardiovascular: Rate and Rhythm: Normal rate and regular rhythm. Pulses: Normal pulses. Heart sounds: Normal heart sounds. Pulmonary: Effort: Pulmonary effort is normal. No respiratory distress. Comments: Diminished, bibasilar crackles, currently on 4L O2 Abdominal: General: Bowel sounds are normal. There is distension. Palpations: Abdomen is soft. Musculoskeletal: General: Normal range of motion. Cervical back: Normal range of motion. Right lower leg: Edema (2+ pitting edema) present. Left lower leg: Edema (2+ ptting edema) present. Skin: General: Skin is warm and dry. Neurological: General: No focal deficit present. Mental Status: He is alert and oriented to person, place, and time. Psychiatric: Mood and Affect: Mood is depressed. Affect is flat. Speech: Speech normal. Behavior: Behavior normal. Assessment/Plan Italia Allen is a 68 y.o. male with a PMHx of HLD, HTN, T2DM, HFrEF (LVEF 45 to 50%), and OA who presented to [facility] 12/18 after being found down by his son. Patient was placed on Heparin drip for elevated troponin of 654 which up trended to 1723 and admitted to ICU pending bed availability at [facility]. Admitted to HVI service for ADHF and NSTEMI management. NSTEMI CAD/HLD - presented to OSH s/p syncopal event, found to be hypoglycemic - OSH Troponin peak 1723, admit Troponin 492->366 - [facility] 10/14: severe 3V CAD, 70 to 80% prox to mid LAD, 90% marginal 1, and SHRIMP TRAWLER of the RCA with collateral filling the distal RCA demonstrating vessel appears to be a good target for revascularization. (Images in Syngo) - evaluated by CTS/Dr. Ruiz, previous admit, given patients labile emotional/mental state did not pursue CABG - 10/22 s/p IVUS guided and orbital atherectomy assisted PCI, LISY to ostial-prox LAD and LISY to Circ by Dr Wiley with plan for outpt consideration of SHRIMP TRAWLER PCI to the RCA - appointment with Dr. Wiley 11/12, deferred PCI given pt was not medically optimized - cont Heparin drip at this time, consider discontinuing tomorrow as pt has been on since 12/18 and currently denies CP - Lipid panel pending - consult Int Cards/Dr. Wiley for evaluation of PCI to SHRIMP TRAWLER RCA once medically optimized - Continue ASA 81 mg, Prasugrel 10 mg, Carvedilol 25 mg BID, and atorvastatin 80 mg daily Acute on chronic systolic and diastolic heart failure, HFmrEF - 45-50% - etiology: likely ICM, reports a 20 year history of CHF with unknown EF - 09/2023 TTE ([facility]): EF of 45-50%, no significant valvular disease. No formal report available. Images in [employer]ng[employer]. 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 - prev admit Vascular surgery consulted, no surgical intervention recommended - outpatient follow up DM2 - presented to OSH hypoglycemic - Hgb A1C on 10/15: 6.8%, repeat 12/21 6.8% - home regimen: Glargine 60 units daily, Glipizide 10 mg BIDAC - Glucommander ordered: Glargine 40 units daily, Lispro 12 units TIDAC, plus Glucommander corrected dose - Accu-Cheks AC/HS, hypoglycemic protocol (patient refuses CCD) HTN - admit BP: 128/75 - cont home lisinopril 40mg daily, Coreg 25 mg BID CKD 3b - No recent information on kidney function, last Cr in 2016 was normal - Renal US at [facility] on 10/14 - no acute findings - Baseline Cr ~1.4-1.8 - admit Cr: 1.95 (was 2.09 at OSH - diuresis as above - Avoid nephrotoxins and hypotension Osteoarthritis - hold home celecoxib given CKD/CHF/HTN - Tylenol PRN, Lidocaine patches - Voltaren gel to affected areas QID PRN Grief/Depression - patient lost his ~3 month ago - previous admit with labile emotions, varied between tearful/anger/withdrawn - grief/ pre parole counseling aide services offered-> patient declined - started on sertraline 50 mg daily 11/08, pt reports little improvement - increase home sertraline to 100 mg daily DVT prophylaxis: Heparin drip Dispo: pending further diuresis, PCI evaluation Code Status: Full Code To be seen and discussed with attending Dr. Nolan Peripheral IV 12/22/23 20 G Right Antecubital (Active) Site Assessment Clean;Dry;Intact 12/22/23 1100 Dressing Type Transparent 12/22/23 1100 Dressing Status Occlusive;Dry;Clean 12/22/23 1100 Number of days: 0 I spent 90 minutes in the professional and overall care of this patient. ANA M Baker I saw the patient on 12/22 I conducted a shared care visit with the SUDHIR, briefly patient has ischemic cardiomyopathy with worsening heart failure over the past few months he was admitted after being found down in the setting of hypoglycemia suspect this was not cardiogenic syncope but a hypoglycemic coma responded to glucose infusion he was transferred here for consideration of further PCI which was deferred in the past due to volume overload he remains volume overloaded we will continue diuresis and discussed with interventional cardiology however I am concerned about his relative lack of interest/disengagement he seems quite nonchalant about his worsening clinical situation but does not seem particularly interested in discussing it with me [facility] Work Phone: 12-22-2023 History and physical note History Of Present Illness: Italia Allen is a 68 y.o. male with a PMHx of HLD, HTN, T2DM, HFrEF (LVEF 45 to 50%), and OA who presented to [facility] 12/18 after being found down by his son. At time of EMS arrival BG was found to be 35, which responded to an Amp of D50. Trauma workup negative for any acute findings. EKG without any ST elevations or depressions. Patient was placed on Heparin drip for elevated troponin of 654 which up trended to 1723 and admitted to ICU pending bed availability at [facility]. Upon arrival to [facility] patient denies having any chest pain or any chest pain since admission to OSH. He does endorse ongoing intermittent episodes of chest discomfort, dyspnea with very minimal exertion, as well as worsening lower extremity swelling. He also endorses chronic severe back pain and decreased appetite with constipation. He denies any fevers/chills, N/V, dizziness/ lightheadedness. Patient was recently admitted 10/14-10/23 for ADHF as well as NSTEMI. LHC showed 3VD, evaluated by CTS for CABG evaluation, but found to not be a surgical candidate due to patients labile emotional/mental state, and concerns about recovery post surgery, decision was made to pursue PCI. Patient was taken for staged PCI on 10/22, IVUS guided PCI to Lcx and LAD with plan to follow up with Dr. Wiley outpatient for consideration of SHRIMP TRAWLER PCI to RCA. At follow up appointment with Dr. Wiley 11/12 decision was made to defer consideration of PCI given pt was not medically optimized. Diuretic dose was increased and spironolactone added with plan to return to clinic in 4 weeks. Patient admitted to HVI service for further HF optimization and NSTEMI management. Last Recorded Vitals: Vitals: 12/22/23 1123 12/22/23 1300 12/22/23 1532 12/22/23 2100 BP: 126/70 138/70 BP Location: Right arm Patient Position: Lying Lying Pulse: 79 80 Resp: 18 18 Temp: 36.6 C (97.9 F) 37.2 C (99 F) TempSrc: Temporal Temporal SpO2: 97% 97% Weight: 115 kg (252 lb 13.9 oz) Height: 1.778 m (5' 10 ) Last Labs: Results for orders placed or performed during the hospital encounter of 12/22/23 (from the past 24 hours) Comprehensive metabolic panel Result Value Ref Range Glucose 174 (H) 74 - 99 mg/dL Sodium 138 136 - 145 mmol/L Potassium 4.5 3.5 - 5.3 mmol/L Chloride 103 98 - 107 mmol/L Bicarbonate 23 21 - 32 mmol/L Anion Gap 17 10 - 20 mmol/L Urea Nitrogen 48 (H) 6 - 23 mg/dL Creatinine 1.95 (H) 0.50 - 1.30 mg/dL eGFR 37 (L) >60 mL/min/1.73m*2 Calcium 8.3 (L) 8.6 - 10.6 mg/dL Albumin 3.0 (L) 3.4 - 5.0 g/dL Alkaline Phosphatase 63 33 - 136 U/L Total Protein 5.4 (L) 6.4 - 8.2 g/dL AST 12 9 - 39 U/L Bilirubin, Total 0.4 0.0 - 1.2 mg/dL ALT 15 10 - 52 U/L CBC and Auto Differential Result Value Ref Range WBC 8.1 4.4 - 11.3 x10*3/uL nRBC 0.0 0.0 - 0.0 /100 WBCs RBC 2.62 (L) 4.50 - 5.90 x10*6/uL Hemoglobin 7.5 (L) 13.5 - 17.5 g/dL Hematocrit 24.6 (L) 41.0 - 52.0 % MCV 94 80 - 100 fL MCH 28.6 26.0 - 34.0 pg MCHC 30.5 (L) 32.0 - 36.0 g/dL RDW 16.0 (H) 11.5 - 14.5 % Platelets 316 150 - 450 x10*3/uL Neutrophils % 75.5 40.0 - 80.0 % Immature Granulocytes %, Automated 0.9 0.0 - 0.9 % Lymphocytes % 9.7 13.0 - 44.0 % Monocytes % 8.4 2.0 - 10.0 % Eosinophils % 4.9 0.0 - 6.0 % Basophils % 0.6 0.0 - 2.0 % Neutrophils Absolute 6.15 1.20 - 7.70 x10*3/uL Immature Granulocytes Absolute, Automated 0.07 0.00 - 0.70 x10*3/uL Lymphocytes Absolute 0.79 (L) 1.20 - 4.80 x10*3/uL Monocytes Absolute 0.68 0.10 - 1.00 x10*3/uL Eosinophils Absolute 0.40 0.00 - 0.70 x10*3/uL Basophils Absolute 0.05 0.00 - 0.10 x10*3/uL Magnesium Result Value Ref Range Magnesium 1.97 1.60 - 2.40 mg/dL B-Type Natriuretic Peptide Result Value Ref Range BNP 306 (H) 0 - 99 pg/mL Coagulation Screen Result Value Ref Range Protime 13.1 (H) 9.8 - 12.8 seconds INR 1.2 (H) 0.9 - 1.1 aPTT 30 27 - 38 seconds Heparin Assay Result Value Ref Range Heparin Unfractionated <0.1 See Comment Below for Therapeutic Ranges IU/mL Hemoglobin A1c Result Value Ref Range Hemoglobin A1C 6.8 (H) See comment % Estimated Average Glucose 148 Not Established mg/dL Troponin I, High Sensitivity Result Value Ref Range Troponin I, High Sensitivity (CMC) 492 (HH) 0 - 53 ng/L POCT GLUCOSE Result Value Ref Range POCT Glucose 171 (H) 74 - 99 mg/dL Heparin Assay, UFH Result Value Ref Range Heparin Unfractionated 0.1 See Comment Below for Therapeutic Ranges IU/mL Troponin I, High Sensitivity Result Value Ref Range Troponin I, High Sensitivity (CMC) 366 (HH) 0 - 53 ng/L POCT GLUCOSE Result Value Ref Range POCT Glucose 210 (H) 74 - 99 mg/dL POCT GLUCOSE Result Value Ref Range POCT Glucose 209 (H) 74 - 99 mg/dL POCT GLUCOSE Result Value Ref Range POCT Glucose 191 (H) 74 - 99 mg/dL Troponin I, High Sensitivity (CMC) Date/Time Value Ref Range Status 12/22/2023 06:41 PM 366 (HH) 0 - 53 ng/L Final Comment: Previous result verified on 12/22/2023 1726 on specimen/case [id number] called with component [facility] for procedure Troponin I, High Sensitivity with value 492 ng/L. 12/22/2023 11:49 AM 492 (HH) 0 - 53 ng/L Final 10/16/2023 01:56 AM 916 (HH) 0 - 53 ng/L Final BNP Date/Time Value Ref Range Status 12/22/2023 11:49 AM 306 (H) 0 - 99 pg/mL Final 10/16/2023 09:06 AM 88 0 - 99 pg/mL Final Hemoglobin A1C Date/Time Value Ref Range Status 12/22/2023 11:49 AM 6.8 (H) See comment % Final 10/16/2023 01:56 AM 6.8 (H) see below % Final Last I/O: I/O last 3 completed shifts: In: 69 (0.6 mL/kg) [I.V.:69 (0.6 mL/kg)] Out: 600 (5.2 mL/kg) [Urine:600 (0.1 mL/kg/hr)] Weight: 114.7 kg Past Cardiology Tests (Last 3 Years): EKG: ECG 12 Lead 11/13/2023 ECG 12 lead 10/16/2023 Echo: No results found for this or any previous visit from the past 1095 days. Ejection Fractions: No results found for: EF Cath: Cardiac Catheterization Procedure 10/23/2023 Stress Test: No results found for this or any previous visit from the past 1095 days. Cardiac Imaging: No results found for this or any previous visit from the past 1095 days. Past Medical History: He has a past medical history of Diabetes mellitus (Multi), Hyperlipidemia, and Hypertension. Past Surgical History: He has a past surgical history that includes Cardiac catheterization (N/A, 10/23/2023). Social History: He reports that he has never smoked. He has never used smokeless tobacco. He reports current alcohol use. No history on file for drug use. Family History: No family history on file. Allergies: Patient has no known allergies. Inpatient Medications: Scheduled medications Medication Dose Route Frequency acetaminophen 1,000 mg intravenous Once [START ON 12/23/2023] aspirin 81 mg oral Daily atorvastatin 80 mg oral Nightly carvedilol 25 mg oral BID [Held by provider] celecoxib 200 mg oral Daily docusate sodium 100 mg oral BID Glucommander - insulin glargine 1-125 Units subcutaneous Nightly And Glucommander - insulin lispro 0-125 Units subcutaneous With meals & nightly [START ON 12/23/2023] lisinopril 40 mg oral Daily [START ON 12/23/2023] pantoprazole 40 mg oral Daily before breakfast [START ON 12/23/2023] prasugrel 10 mg oral Daily [START ON 12/23/2023] sertraline 100 mg oral Daily [START ON 12/23/2023] spironolactone 50 mg oral Daily PRN medications Medication acetaminophen dextrose glucagon HCL Glucommander - insulin lispro heparin melatonin polyethylene glycol Continuous Medications Medication Dose Last Rate heparin 0-4,000 Units/hr 1,400 Units/hr (12/22/232000) Outpatient Medications: Current Outpatient Medications Medication Instructions aspirin 81 mg, oral, Daily atorvastatin (LIPITOR) 80 mg, oral, Nightly bumetanide (BUMEX) 4 mg, oral, Daily, Take one tablet in the morning and on , and Sunday only take one tablet in the afternoon bumetanide (BUMEX) 2 mg, oral, Daily carvedilol (COREG) 25 mg, oral, 2 times daily celecoxib (CeleBREX) 200 mg capsule Every 24 hours diclofenac (VOLTAREN) 75 mg, oral, As needed glipiZIDE (GLUCOTROL) 10 mg, oral, 2 times daily before meals insulin detemir (LEVEMIR FLEXTOUCH) 12 Units, subcutaneous, 2 times daily insulin glargine (LANTUS) 60 Units, subcutaneous, Daily lisinopril 40 mg, oral, Daily nitroglycerin (NITROSTAT) 0.4 mg, sublingual, Every 5 min PRN omeprazole (PriLOSEC) [address] capsule Every 24 hours prasugrel (EFFIENT) 10 mg, oral, Daily sertraline (Zoloft) 50 mg tablet 1 tablet, oral, Daily spironolactone (ALDACTONE) 50 mg, oral, Daily Review of Systems Constitutional: Positive for decreased appetite. Negative for chills, diaphoresis and fever. HENT: Negative for congestion. Eyes: Negative. Cardiovascular: Positive for chest pain, dyspnea on exertion and leg swelling. Negative for palpitations. Respiratory: Positive for shortness of breath. Negative for cough, hemoptysis, sputum production and wheezing. Endocrine: Negative. Hematologic/Lymphatic: Negative. Musculoskeletal: Positive for arthritis, back pain and joint pain. Gastrointestinal: Positive for bloating and constipation. Negative for abdominal pain, bowel incontinence, nausea and vomiting. Genitourinary: Negative for bladder incontinence. Neurological: Negative for dizziness, headaches and light-headedness. Psychiatric/Behavioral: Positive for depression. The patient has insomnia. Allergic/Immunologic: Negative. Physical Exam: Physical Exam Vitals reviewed. Constitutional: General: He is not in acute distress. Appearance: He is obese. HENT: Head: Atraumatic. Mouth/Throat: Mouth: Mucous membranes are moist. Eyes: Extraocular Movements: Extraocular movements intact. Conjunctiva/sclera: Conjunctivae normal. Neck: Comments: JVD elevated to mid-neck Cardiovascular: Rate and Rhythm: Normal rate and regular rhythm. Pulses: Normal pulses. Heart sounds: Normal heart sounds. Pulmonary: Effort: Pulmonary effort is normal. No respiratory distress. Comments: Diminished, bibasilar crackles, currently on 4L O2 Abdominal: General: Bowel sounds are normal. There is distension. Palpations: Abdomen is soft. Musculoskeletal: General: Normal range of motion. Cervical back: Normal range of motion. Right lower leg: Edema (2+ pitting edema) present. Left lower leg: Edema (2+ ptting edema) present. Skin: General: Skin is warm and dry. Neurological: General: No focal deficit present. Mental Status: He is alert and oriented to person, place, and time. Psychiatric: Mood and Affect: Mood is depressed. Affect is flat. Speech: Speech normal. Behavior: Behavior normal. Assessment/Plan Italia Allen is a 68 y.o. male with a PMHx of HLD, HTN, T2DM, HFrEF (LVEF 45 to 50%), and OA who presented to [facility] 12/18 after being found down by his son. Patient was placed on Heparin drip for elevated troponin of 654 which up trended to 1723 and admitted to ICU pending bed availability at [facility]. Admitted to HVI service for ADHF and NSTEMI management. NSTEMI CAD/HLD - presented to OSH s/p syncopal event, found to be hypoglycemic - OSH Troponin peak 1723, admit Troponin 492->366 - [facility] 10/14: severe 3V CAD, 70 to 80% prox to mid LAD, 90% marginal 1, and SHRIMP TRAWLER of the RCA with collateral filling the distal RCA demonstrating vessel appears to be a good target for revascularization. (Images in Syngo) - evaluated by CTS/Dr. Ruiz, previous admit, given patients labile emotional/mental state did not pursue CABG - 10/22 s/p IVUS guided and orbital atherectomy assisted PCI, LISY to ostial-prox LAD and LISY to Circ by Dr Wiley with plan for outpt consideration of SHRIMP TRAWLER PCI to the RCA - appointment with Dr. Wiley 11/12, deferred PCI given pt was not medically optimized - cont Heparin drip at this time, consider discontinuing tomorrow as pt has been on since 12/18 and currently denies CP - Lipid panel pending - consult Int Cards/Dr. Wiley for evaluation of PCI to SHRIMP TRAWLER RCA once medically optimized - Continue ASA 81 mg, Prasugrel 10 mg, Carvedilol 25 mg BID, and atorvastatin 80 mg daily Acute on chronic systolic and diastolic heart failure, HFmrEF - 45-50% - etiology: likely ICM, reports a 20 year history of CHF with unknown EF - 09/2023 TTE ([facility]): EF of 45-50%, no significant valvular disease. No formal report available. Images in Syngo. 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 - prev admit Vascular surgery consulted, no surgical intervention recommended - outpatient follow up DM2 - presented to OSH hypoglycemic - Hgb A1C on 10/15: 6.8%, repeat 12/21 6.8% - home regimen: Glargine 60 units daily, Glipizide 10 mg BIDAC - Glucommander ordered: Glargine 40 units daily, Lispro 12 units TIDAC, plus Glucommander corrected dose - Accu-Cheks AC/HS, hypoglycemic protocol (patient refuses CCD) HTN - admit BP: 128/75 - cont home lisinopril 40mg daily, Coreg 25 mg BID CKD 3b - No recent information on kidney function, last Cr in 2016 was normal - Renal US at [facility] on 10/14 - no acute findings - Baseline Cr ~1.4-1.8 - admit Cr: 1.95 (was 2.09 at OSH - diuresis as above - Avoid nephrotoxins and hypotension Osteoarthritis - hold home celecoxib given CKD/CHF/HTN - Tylenol PRN, Lidocaine patches - Voltaren gel to affected areas QID PRN Grief/Depression - patient lost his ~3 month ago - previous admit with labile emotions, varied between tearful/anger/withdrawn - grief/ pre parole counseling aide services offered-> patient declined - started on sertraline 50 mg daily 11/08, pt reports little improvement - increase home sertraline to 100 mg daily DVT prophylaxis: Heparin drip Dispo: pending further diuresis, PCI evaluation Code Status: Full Code To be seen and discussed with attending Dr. Nolan Peripheral IV 12/22/23 20 G Right Antecubital (Active) Site Assessment Clean;Dry;Intact 12/22/23 1100 Dressing Type Transparent 12/22/23 1100 Dressing Status Occlusive;Dry;Clean 12/22/23 1100 Number of days: 0 I spent 90 minutes in the professional and overall care of this patient. ANA M Baker I saw the patient on 12/22 I conducted a shared care visit with the SUDHIR, briefly patient has ischemic cardiomyopathy with worsening heart failure over the past few months he was admitted after being found down in the setting of hypoglycemia suspect this was not cardiogenic syncope but a hypoglycemic coma responded to glucose infusion he was transferred here for consideration of further PCI which was deferred in the past due to volume overload he remains volume overloaded we will continue diuresis and discussed with interventional cardiology however I am concerned about his relative lack of interest/disengagement he seems quite nonchalant about his worsening clinical situation but does not seem particularly interested in discussing it with me documented in this encounter [facility] Work Phone: 12-21-2023 Note Patient Education Urology Benign Prostatic Hyperplasia Benign prostatic hyperplasia (BPH) is an enlarged prostate gland that is caused by the normal aging process. The prostate may get bigger as a man gets older. The condition is not caused by cancer. The prostate is a walnut-sized gland that is involved in the production of semen. It is located in front of the rectum and below the bladder. The bladder stores urine. The urethra carries stored urine out of the body. An enlarged prostate can press on the urethra. This can make it harder to pass urine. The buildup of urine in the bladder can cause infection. Back pressure and infection may progress to bladder damage and kidney (renal) failure. What are the causes? This condition is part of the normal aging process. However, not all men develop problems from this condition. If the prostate enlarges away from the urethra, urine flow will not be blocked. If it enlarges toward the urethra and compresses it, there will be problems passing urine. What increases the risk? This condition is more likely to develop in men older than 50 years. What are the signs or symptoms? Symptoms of this condition include: ??? Getting up often during the night to urinate. ??? Needing to urinate frequently during the day. ??? Difficulty starting urine flow. ??? Decrease in size and strength of your urine stream. ??? Leaking (dribbling) after urinating. ??? Inability to pass urine. This needs immediate treatment. ??? Inability to completely empty your bladder. ??? Pain when you pass urine. This is more common if there is also an infection. ??? Urinary tract infection (UTI). How is this diagnosed? This condition is diagnosed based on your medical history, a physical exam, and your symptoms. Tests will also be done, such as: ??? A post-void bladder scan. This measures any amount of urine that may remain in your bladder after you finish urinating. ??? A digital rectal exam. In a rectal exam, your health care provider checks your prostate by putting a lubricated, gloved finger into your rectum to feel the back of your prostate gland. This exam detects the size of your gland and any abnormal lumps or growths. ??? An exam of your urine (urinalysis). ??? A prostate specific antigen (PSA) screening. This is a blood test used to screen for prostate cancer. ??? An ultrasound. This test uses sound waves to electronically produce a picture of your prostate gland. Your health care provider may refer you to a specialist in kidney and prostate diseases (urologist). How is this treated? Once symptoms begin, your health care provider will monitor your condition (active surveillance or watchful waiting). Treatment for this condition will depend on the severity of your condition. Treatment may include: ??? Observation and yearly exams. This may be the only treatment needed if your condition and symptoms are mild. ??? Medicines to relieve your symptoms, including: ? Medicines to shrink the prostate. ? Medicines to relax the muscle of the prostate. ??? Surgery in severe cases. Surgery may include: ? Prostatectomy. In this procedure, the prostate tissue is removed completely through an open incision or with a laparoscope or robotics. ? Transurethral resection of the prostate (TURP). In this procedure, a tool is inserted through the opening at the tip of the penis (urethra). It is used to cut away tissue of the inner core of the prostate. The pieces are removed through the same opening of the penis. This removes the blockage. ? Transurethral incision (TUIP). In this procedure, small cuts are made in the prostate. This lessens the prostate's pressure on the urethra. ? Transurethral microwave thermotherapy (TUMT). This procedure uses microwaves to create heat. The heat destroys and removes a small amount of prostate tissue. ? Transurethral needle ablation (TUNA). This procedure uses radio frequencies to destroy and remove a small amount of prostate tissue. ? Interstitial laser coagulation (ILC). This procedure uses a laser to destroy and remove a small amount of prostate tissue. ? Transurethral electrovaporization (TUVP). This procedure uses electrodes to destroy and remove a small amount of prostate tissue. ? Prostatic urethral lift. This procedure inserts an implant to push the lobes of the prostate away from the urethra. Follow these instructions at home: ??? Take uoei-nso-bmbivvf and prescription medicines only as told by your health care provider. ??? Monitor your symptoms for any changes. Contact your health care provider with any changes. ??? Avoid drinking large amounts of liquid before going to bed or out in public. ??? Avoid or reduce how much caffeine or alcohol you drink. ??? Give yourself time when you urinate. ??? Keep all follow-up visits. This is important. Contact a health care provider if: ??? You have unexplained back pain. ??? Your symptoms do not get (more content not included)... [facility] 11-29-2023 History of Present illness Narrative Images from the original note were not included. Subjective Patient ID: Italia Allen is a 68 y.o. male who presents for DM Foot Care (68 yo [employer] pt presents today requesting nail debridement, unable [...] Fatemeh Coleman DPM documented in this encounter [facility] 11-29-2023 Instructions Fatemeh Coleman DPM - 11/29/2023 1:45 PM EDT As noted documented in this encounter [facility] 11-13-2023 History of Present illness Narrative Referred by Dr. Hickey ref. provider found for No chief complaint on file. History Of Present Illness: Italia Allen is a 68 y.o. male with a past medical history of hyperlipidemia, hypertension, T2DM, HFrEF (LVEF 45 to 50%) who presented in September 2023 with an NSTEMI. Coronary angiography demonstrated severe LAD stenosis and a SHRIMP TRAWLER of the RCA. He underwent IVUS guided and orbital atherectomy assisted PCI to the ostial-proximal LAD (3.0 x 40 mm Synergy LISY postdilated in the distal to mid segments to 3.5 mm in the ostial segment to 4.0 mm) and IVUS guided PCI to the circumflex (3.5 x 15 mm Scott LISY postdilated to 4.0 mm). He has been maintained on aspirin and prasugrel. He now is referred here for consideration of SHRIMP TRAWLER PCI to the RCA. Regarding the SHRIMP TRAWLER anatomy there is a severe ostial lesion followed by a severe proximal lesion and then a relatively short SHRIMP TRAWLER with a distal island and then a long total occlusion segment from the mid segment into the PDA/RPL V. Septals: Prominent epicardial collateral arising what appears to be the circumflex left to right collaterals from septal perforators Most recent transthoracic cardiogram demonstrated LVEF of 45 to 50%. Today, the patient complains of intermittent episodes of chest discomfort. He is also complaining of shortness of breath with very minimal exertion (tying shoes). He is also complaining of severe back pain at night and decreased appetite with constipation. His son reports that he is notices father has had increasing lower extremity swelling. His primary care physician recently increased his Bumex dose from 2 mg once per day to 4 mg every other day. Overall his mood has been very low and he has been started on Zoloft 3 days ago. This is after his recently . Past Medical History: He has a past medical history of Diabetes mellitus (Multi), Hyperlipidemia, and Hypertension. Past Surgical History: He has a past surgical history that includes Cardiac catheterization (N/A, 10/23/2023). Social History: He reports that he has never smoked. He has never used smokeless tobacco. He reports current alcohol use. No history on file for drug use. Family History: No family history on file. Allergies: Patient has no known allergies. Outpatient Medications: Current Outpatient Medications Medication Instructions aspirin 81 mg, oral, Daily atorvastatin (LIPITOR) 80 mg, oral, Nightly bumetanide (Bumex) 2 mg tablet Take one tablet in the morning and on , and Sunday only take one tablet in the afternoon carvedilol (COREG) 25 mg, oral, 2 times daily diclofenac (VOLTAREN) 75 mg, oral, As needed diclofenac sodium (VOLTAREN) 4 g, Topical, 4 times daily PRN glipiZIDE (GLUCOTROL) 10 mg, oral, 2 times daily before meals insulin detemir (LEVEMIR FLEXTOUCH) 12 Units, subcutaneous, 2 times daily insulin glargine (LANTUS) 60 Units, subcutaneous, Daily lisinopril 40 mg, oral, Daily nitroglycerin (NITROSTAT) 0.4 mg, sublingual, Every 5 min PRN prasugrel (EFFIENT) 10 mg, oral, Daily Last Recorded Vitals: There were no vitals filed for this visit. Physical Exam: Vitals: 11/13/23 1112 BP: 153/73 Pulse: 72 SpO2: General: Flat affect HEENT: Moist mucous membranes Cardiovascular: Regular rate and rhythm, normal S1-S2, no murmurs rubs or gallops, positive JVD Pulmonology: Mild bibasilar crackles. Abdomen: Soft and nondistended, no tenderness palpation, + bowel sounds Extremities: 2+ radial pulses bilaterally. 2+ pitting edema from the ankles up to the knees. Neuro: Alert and orientated by 3 Last Labs: CBC - Lab Results Component Value Date WBC 8.9 10/24/2023 HGB 11.4 (L) 10/24/2023 HCT 36.3 (L) 10/24/2023 MCV 93 10/24/2023 PLT 313 10/24/2023 CMP - Lab Results Component Value Date CALCIUM 8.4 (L) 10/24/2023 PHOS 3.9 10/24/2023 PROT 5.6 (L) 10/16/2023 ALBUMIN 3.2 (L) 10/24/2023 AST 14 10/16/2023 ALT 15 10/16/2023 ALKPHOS 58 10/16/2023 BILITOT 0.4 10/16/2023 LIPID PANEL - Lab Results Component Value Date CHOL 114 10/16/2023 HDL 25.8 10/16/2023 CHHDL 4.4 10/16/2023 RENAL FUNCTION PANEL - Lab Results Component Value Date GLUCOSE 184 (H) 10/24/2023 NA 137 10/24/2023 K 4.1 10/24/2023 CL 105 10/24/2023 CO2 24 10/24/2023 ANIONGAP 12 10/24/2023 BUN 38 (H) 10/24/2023 CREATININE 1.72 (H) 10/24/2023 CALCIUM 8.4 (L) 10/24/2023 PHOS 3.9 10/24/2023 ALBUMIN 3.2 (L) 10/24/2023 Lab Results Component Value Date BNP 88 10/16/2023 HGBA1C 6.8 (H) 10/16/2023 PCI 10/23/2023: 1. Successful IVUS guided PCI to the first obtuse marginal branch. 2. Successful IVUS guided and orbital atherectomy assisted PCI to the ostial to mid LAD. 3. Complex coronary intervention. Assessment/Plan Italia is a 68-year-old male with a past medical history of hypertension, hyperlipidemia, T2DM and heart failure with reduced ejection fraction who presented with an NSTEMI and underwent PCI to the LAD and circumflex. He has remaining complex SHRIMP TRAWLER of the RCA. Today he appears in heart failure with volume overload. His EKG is without ischemic changes. Patient is also complaining of multiple symptoms including constipation, fatigue and decrease of appetite. His presentation is likely multifactorial including heart failure with congestion as well as depression in the setting of losing his spouse. We will increase his diuretic and add a potassium sparing diuretic to his heart failure regimen. Patient needs to be medically optimized prior to consideration of SHRIMP TRAWLER PCI to the RCA. Plan: - Increase Bumex to 4 mg once per day for 2 weeks and then resume 2 mg once per day after 14 days. - Start spironolactone 50 mg once per day. - Renal function panel and serum magnesium in 2 weeks. - Follow-up in cardiology clinic in 4 weeks. - Decrease use of NSAIDs in the setting of renal dysfunction. We will start tramadol 25 mg at night as needed. - Given that the patient is not medically optimized, we will postpone plans for RCA SHRIMP TRAWLER PCI. - Continue with dual antiplatelet therapy (aspirin and prasugrel) for at least 12 months. Return to clinic in 4 weeks. MD Sahil Mandujano MD documented in this encounter [facility] Work Phone: 11-13-2023 Instructions Inderjit Michelle MD - 11/13/2023 11:00 AM EDT Good to see you today, Italia. As we discussed: We will increase Bumex to 4mg (2 pills) once per day. We will start spironolactone 50mg once per day. We will start tramadol 25mg at night for pain. Try to reduce the ibuprofen, if possible. Blood work to be collected in 2 weeks. We will see you back here in 4 weeks. documented in this encounter [facility] Work Phone: 11-02-2023 History of Present illness Narrative Subjective Italia Allen is a 68 y.o. male Chief Complaint Follow-up HPI Patient is here for follow-up continue management for recent hospitalization for heart failure and acute coronary syndrome. He was found to have three-vessel disease. He was transferred to [facility] for evaluation. Following lengthy discussion with the patient interventional cardiology and cardiothoracic surgery decision was made to proceed with high risk multivessel PCI. He underwent PCI to the LAD and circumflex with planned procedure to the RCA down the road. His LVEF around 45%. He is known to have chronic kidney disease. The patient also was found to have occlusion of his right carotid. He describes some shortness of breath, lower extremity edema and insomnia. Assessment 1. Multivessel coronary artery disease with recent PCI to the LAD and left circumflex with planned PCI to the RCA which is totally occluded at 2. Ischemic cardiomyopathy with heart failure with evidence of volume overload 3. Hyperlipidemia on maximum dose of statin 4. Stage III chronic kidney disease 5. Occlusion of the right carotid 6. Obesity with BMI of 36 7. Depression and social stress due to the of his 8. Insomnia 9. Intermittent cough Plan 1. I advised the patient to increase his Bumex to 2 mg in the morning and 1 in the afternoon 3 times weekly 2. I advised him to call if his cough does not improve and we will consider switching him to valsartan 3. We discussed risk factor modification 4. Patient was advised to keep his appointment with Dr. Machuca 5. Aggressive approach risk factor modification 6. I discussed with him sleep hygiene 7. Follow-up in 4 months Review of Systems Cardiovascular: Positive for chest pain, dyspnea on exertion and leg swelling. Vitals: 11/02/23 0953 BP: 134/76 BP Location: Right arm Patient Position: Sitting Pulse: 78 Weight: 114 kg (252 lb) Height: 1.778 m (5' 10 ) Objective Physical Exam Constitutional: Appearance: Normal appearance. HENT: Nose: Nose normal. Neck: Vascular: No carotid bruit. Cardiovascular: Rate and Rhythm: Normal rate. Pulses: Normal pulses. Heart sounds: Normal heart sounds. Pulmonary: Effort: Pulmonary effort is normal. Abdominal: General: Bowel sounds are normal. Palpations: Abdomen is soft. Musculoskeletal: General: Normal range of motion. Cervical back: Normal range of motion. Right lower leg: No edema. Left lower leg: No edema. Skin: General: Skin is warm and dry. Neurological: General: No focal deficit present. Mental Status: He is alert. Psychiatric: Mood and Affect: Mood normal. Behavior: Behavior normal. Thought Content: Thought content normal. Judgment: Judgment normal. Allergies Patient has no known allergies. Current Medications Current Outpatient Medications: aspirin 81 mg chewable tablet, Chew 1 tablet (81 mg) once daily., Disp: 90 tablet, Rfl: 1 atorvastatin (Lipitor) 80 mg tablet, Take 1 tablet (80 mg) by mouth once daily at bedtime., Disp: 30 tablet, Rfl: 2 carvedilol (Coreg) 25 mg tablet, Take 1 tablet (25 mg) by mouth 2 times a day., Disp: 60 tablet, Rfl: 2 diclofenac (Voltaren) 75 mg EC tablet, Take 1 tablet (75 mg) by mouth if needed., Disp: , Rfl: diclofenac sodium (Voltaren) 1 % gel, Apply 4.5 inches (4 g) topically 4 times a day as needed (Apply to back and hips as needed for pain)., Disp: 100 g, Rfl: 1 glipiZIDE (Glucotrol) 10 mg tablet, Take 1 tablet (10 mg) by mouth 2 times a day before meals., Disp: , Rfl: insulin detemir (Levemir Flextouch) 100 unit/mL (3 mL) pen, Inject 12 Units under the skin 2 times a day., Disp: , Rfl: insulin glargine (Lantus) 100 unit/mL (3 mL) pen, Inject 60 Units under the skin once daily., Disp: , Rfl: lisinopril 40 mg tablet, Take 1 tablet (40 mg) by mouth once daily., Disp: 90 tablet, Rfl: 2 nitroglycerin (Nitrostat) 0.4 mg SL tablet, Place 1 tablet (0.4 mg) under the tongue every 5 minutes if needed for chest pain., Disp: 100 tablet, Rfl: 12 prasugrel (Effient) 10 mg tablet, Take 1 tablet (10 mg) by mouth once daily for 363 doses., Disp: 30 tablet, Rfl: 11 bumetanide (Bumex) 2 mg tablet, Take one tablet in the morning and on , and Sunday only take one tablet in the afternoon, Disp: 130 tablet, Rfl: 2 Assessment/Plan 1. CAD, multiple vessel Follow Up In Cardiology 2. Primary hypertension 3. Chronic systolic heart failure (Multi) 4. BMI 36.0-36.9,adult 5. Stage 3a chronic kidney disease (Multi) 6. Right carotid artery occlusion 7. Edema, unspecified type bumetanide (Bumex) 2 mg tablet Scribe Attestation By signing my name below, I, Araceli Kline LPN, Scribe attest that this documentation has been prepared under the direction and in the presence of Ann Henao MD. Provider Attestation - Scribe documentation All medical record entries made by the Scribe were at my direction and personally dictated by me. I have reviewed the chart and agree that the record accurately reflects my personal performance of the history, physical exam, discussion and plan. documented in this encounter [facility] Work Phone: 11-02-2023 Instructions Araceli Overton LPN - 11/02/2023 10:00 AM EDT Please bring all medicines, vitamins, and herbal supplements with you when you come to the office. Prescriptions will not be filled unless you are compliant with your follow up appointments or have a follow up appointment scheduled as per instruction of your physician. Refills should be requested at the time of your visit. BMI was above normal measurement. Current weight: 114 kg (252 lb) Weight change since last visit (-) denotes wt loss 7.29 lbs Weight loss needed to achieve BMI 25: 78.1 Lbs Weight loss needed to achieve BMI 30: 43.4 Lbs Provided instructions on dietary changes Provided instructions on exercise. Follow up with Follow up 4 months documented in this encounter [facility] Work Phone: 10-24-2023 History of Present illness Narrative Subjective Data: Patient feeling well this morning, reports ambulating without any chest discomfort or SOB. Radial site WNL. DAPT education provided. Overnight Events: None Objective Data: Last Recorded Vitals: Vitals: 10/23/23 2116 10/23/23 2330 10/24/23 0523 10/24/23 0722 BP: 134/73 105/61 96/55 BP Location: Left arm Left arm Left arm Patient Position: Lying Lying Pulse: 75 77 72 Resp: 18 20 Temp: 36.7 C (98.1 F) 36.4 C (97.5 F) 36.9 C (98.4 F) TempSrc: Temporal Temporal SpO2: 95% 94% 95% Weight: 111 kg (244 lb 11.4 oz) Height: Last Labs: CBC - 10/24/2023: 7:51 AM 8.9 11.4 313 36.3 CMP - 10/24/2023: 7:51 AM 8.4 5.6 14 --- 0.4 3.9 3.2 15 58 PTT - 10/16/2023: 1:56 AM 1.1 12.5 30 TROPHS Date/Time Value Ref Range Status 10/16/2023 01:56 AM 916 0 - 53 ng/L Final BNP Date/Time Value Ref Range Status 10/16/2023 09:06 AM 88 0 - 99 pg/mL Final HGBA1C Date/Time Value Ref Range Status 10/16/2023 01:56 AM 6.8 see below % Final Last I/O: I/O last 3 completed shifts: In: 1538.8 (13.9 mL/kg) [P.O.:240; I.V.:859.2 (7.7 mL/kg); IV Piggyback:439.6] Out: 2155 (19.4 mL/kg) [Urine:2150 (0.5 mL/kg/hr); Blood:5] Weight: 111 kg Past Cardiology Tests (Last 3 Years): EKG: ECG 12 lead 10/16/2023 Echo: No results found for this or any previous visit from the past 1095 days. Ejection Fractions: No results found for: EF Cath: No results found for this or any previous visit from the past 1095 days. Stress Test: No results found for this or any previous visit from the past 1095 days. Cardiac Imaging: No results found for this or any previous visit from the past 1095 days. Inpatient Medications: Scheduled medications Medication Dose Route Frequency aspirin 81 mg oral Daily atorvastatin 80 mg oral Nightly bumetanide 2 mg oral Daily carvedilol 25 mg oral BID enoxaparin 40 mg subcutaneous q24h insulin glargine 30 Units subcutaneous Daily [Held by provider] insulin glargine 60 Units subcutaneous Daily insulin lispro 0-10 Units subcutaneous Before meals & nightly insulin lispro 7 Units subcutaneous TID lidocaine 1 patch transdermal Daily lisinopril 40 mg oral Daily pantoprazole 40 mg oral Daily before breakfast prasugrel 10 mg oral Daily sennosides-docusate sodium 2 tablet oral BID PRN medications Medication acetaminophen dextrose dextrose dextrose diclofenac sodium glucagon glucagon melatonin nitroglycerin traMADol Continuous Medications Medication Dose Last Rate Physical Exam: General: NAD, lying in bed Skin: warm and dry Head/ neck: no JVD seen at 90 degrees Cardiac: RRR, S1, S2 Pulm: CTAB, room air GI: soft, nontender Extremities: no LE edema, right radial access without tenderness/ ecchymosis/ hematoma, distal radial pulse intact Neuro: no focal neuro deficits Psych: appropriate mood and behavior Assessment/Plan Italia Allen is a 68 y.o. male with PMH of HTN, HLD, DM2, Morbid obesity, OA and CHF, presented with acute on chronic decompensated heart failure and NSTEMI with 3VD on [facility] and mild LV systolic dysfunction. Transferred from OSH for CABG evaluation. - per CTS/Dr. Ruiz, given patients labile emotional/mental state will not pursue CABG at this time, now s/o - Per Dr. Wiley, plan for staged PCI Sunday 10/22, see CHIP note for full details 10/22 Elective IVUS guided PCI to Lcx and LAD Orbital atherectomy and scoring balloon used to prepare the LAD lesion Clinic follow up in 2-3 weeks Consideration of staged PCI to SHRIMP TRAWLER of the right DAPT for 12 months (prasugrel and aspirin) Cardiac rehab referral placed Interventional Recs: - cont telemetry care per PCI protocol - OK to discharge from interventional perspective - cont DAPT with prasugrel and aspirin - education on compliance with DAPT provided - at discharge, PLEASE send 90 day prescription of prasugrel to [facility] (for melgar check and Meds to Beds) and remaining refills to patient's home pharmacy - continue high intensity statin, BB - please ensure cardiology follow up appointment after discharge in 1-3 weeks - patient referred to cardiac rehab - 5lb weight restriction for 5 days for right radial access Full Code Interventional Cardiology will follow if patient remains in house. Pretty Hu CNP Interventional Cardiology General Cardiology Consult Pager: [phone] (weekday 7AM-6PM and weekend 7AM-2PM)and other: [id number] EP Consult Pager: [phone] (weekday 7AM-6PM and weekend 7AM-2PM) and other: [id number] EP Device Nurse Pager: [phone] (weekday 7AM-4PM) Advanced Heart Failure Consult Pager: [phone] anytime CICU Fellow Pager: [phone] anytime Endovascular /Limb Salvage Team Pager: [phone] for day coverage (8am-5pm) Interventional Billboard Poster Pager: [phone] (7AM-5PM) Night coverage: [facility] Cross Cover [id number] Structural Heart Team Pager: [phone] anytime Night coverage: [facility] [id number] ANA M [place] 10/23/23 Transitional Care Coordination Progress Note: Patient discussed during interdisciplinary rounds. Team members present: SWAPNIL SERRANO MD Plan per Medical/Surgical team: PCI 10-23-2023 monitoring creatine Discharge disposition: Home no anticipated needs Status-Inpatient Payer- MEDICARE Potential Barriers: None ADOD: 10-25-2023 Pablo Berman RN [facility] [phone] [facility] Attending Shared Visit Note This is a shared visit. Please see Advanced Practice Provider's encounter note for additional details. Overnight events/Subjective: no chest pain Exam: Physical exam: flat affect, Normal rate, regular rhythm, non labored breathing, clear to auscultation, abdomen non distended, no LE edema, no focal neuro deficits. A/P: 68 M with HTN, HLD, DM2 who presented to an OSH with chest pain and PARSONS. He was transferred to [facility] where an echo showed EF 45-50% and LHC showed 3VD with reported 70-80% stenosis of the prox-mid LAD, 90% OM1 and SHRIMP TRAWLER of proximal RCA with left to right collaterals. He was transferred for CTS evaluation for CABG. #Multivessel CAD: Continue aspirin, statin. Given his emotional state, CTS felt he would not do well with surgical recovery. As such planned for complex PCI on 10/[address] Wiley. #Mildly reduced LVEF: EF appears around 45-50% on personal review of OSH echo without major valve issues. No clinical evidence of volume overload and normal BNP. Continue carvedilol. Increased lisinopril to 40 mg on 10/20. #CKD: creatinine appears around reported baseline of 1.5. #Grief: in the setting of his passing away. Offered pre parole counseling aide, he did not think he needed it. Dispo: pending PCI this coming week Mario Heck MD Problems: Principal Problem: Acute on chronic systolic (congestive) heart failure (Multi) Active Problems: Hypertension Stage 3a chronic kidney disease (Multi) Type 2 diabetes mellitus without complication (Multi) CAD, multiple vessel NSTEMI (non-ST elevated myocardial infarction) (Multi) Grief Objective Admit Date: 10/15/2023 Hospital Length of Stay: 7 Home: [facility] [id number] Vitals: 10/22/2023 7:30 AM 10/22/2023 4:41 AM 10/21/2023 11:51 PM 10/21/2023 7:31 PM 10/21/2023 3:35 PM 10/21/2023 11:50 AM 10/21/2023 7:41 AM Vitals Systolic 136 126 117 149 119 117 153 Diastolic 72 67 68 75 68 65 76 Heart Rate 63 69 69 72 75 77 81 Temp 36.3 C (97.3 F) 36.7 C (98.1 F) 36 C (96.8 F) 36 C (96.8 F) 36.4 C (97.5 F) 36.8 C (98.2 F) 36.6 C (97.9 F) Resp 19 19 20 19 18 18 18 Weight (lb) -- Wt Readings from Last 5 Encounters: 10/21/23 113 kg (248 lb 14.4 oz) Intake/Output Summary (Last 24 hours) at 10/22/2023 1113 Last data filed at 10/21/2023 2351 Gross per 24 hour Intake -- Output 1500 ml Net -1500 ml MEDICATIONS Infusions: Scheduled: aspirin, 81 mg, Daily atorvastatin, 80 mg, Nightly bumetanide, 2 mg, Daily carvedilol, 25 mg, BID enoxaparin, 40 mg, q24h [START ON 10/23/2023] insulin glargine, 30 Units, Nightly [Held by provider] insulin glargine, 60 Units, Daily insulin lispro, 0-10 Units, Before meals & nightly insulin lispro, 7 Units, TID lidocaine, 1 patch, Daily lisinopril, 40 mg, Daily pantoprazole, 40 mg, Daily before breakfast prasugrel, 60 mg, Once Followed by [START ON 10/23/2023] prasugrel, 10 mg, Daily sennosides-docusate sodium, 2 tablet, BID PRN: acetaminophen, 975 mg, q6h PRN dextrose, 12.5 g, q15 min PRN dextrose, 12.5 g, q15 min PRN dextrose, 25 g, q15 min PRN diclofenac sodium, 4 g, 4x daily PRN glucagon, 1 mg, q15 min PRN glucagon, 1 mg, q15 min PRN melatonin, 3 mg, Nightly PRN nitroglycerin, 0.4 mg, q5 min PRN traMADol, 25 mg, q8h PRN Prior to Admission Meds: Medications Prior to Admission Medication Sig Dispense Refill Last Dose bumetanide (Bumex) 2 mg tablet Take 1 tablet (2 mg) by mouth once daily. diclofenac (Voltaren) 75 mg EC tablet Take 1 tablet (75 mg) by mouth 2 times a day. glipiZIDE (Glucotrol) 10 mg tablet Take 1 tablet (10 mg) by mouth 2 times a day before meals. insulin detemir (Levemir Flextouch) 100 unit/mL (3 mL) pen Inject 12 Units under the skin 2 times a day. insulin glargine (Lantus) 100 unit/mL (3 mL) pen Inject 60 Units under the skin once daily. lisinopril 40 mg tablet Take 1 tablet (40 mg) by mouth once daily. DATA: CMP: Recent Labs 10/20/23212310/18/23201010/17/23173810/16/23184510/16/23 0156 NA 134* 137 137 138 137 K 3.9 4.1 4.3 4.1 4.3 CL 102 103 104 103 102 CO2 25 26 28 24 26 ANIONGAP 11 12 9* 15 13 BUN 31* 25* 27* 32* 33* CREATININE 1.89* 1.58* 1.35* 1.52* 1.64* EGFR 38* 47* 57* 49* 45* MG 1.74 1.77 1.94 1.84 -- Recent Labs 10/20/23212310/18/23201010/17/23173810/16/23184510/16/23 0156 ALBUMIN 3.3* 3.3* 3.1* 3.1* 3.3* ALT -- -- -- -- 15 AST -- -- -- -- 14 BILITOT -- -- -- -- 0.4 CBC: Recent Labs 10/20/23212310/18/23201010/17/23173810/16/23184510/16/23 0906 10/16/23 0156 WBC 8.6 7.2 8.6 8.2 -- 9.3 HGB 11.2* 10.7* 11.1* 10.5* -- 11.4* HCT 34.7* 34.3* 35.2* 33.4* -- 35.2* PLT 293 295 316 283 276 285 MCV 89 92 92 91 -- 91 COAG: Recent Labs 10/18/23 0710 10/17/23173810/17/23 1159 10/17/23 0639 10/16/23 2357 10/16/23 0906 10/16/23 0156 INR -- -- -- -- -- -- 1.1 HAUF 0.4 0.3 0.5 0.2 0.3 < > -- < > = values in this interval not displayed. ABO: No results for input(s): ABO in the last 41639 hours. HEME/ENDO: Recent Labs 10/16/23 0156 FERRITIN 184 IRONSAT 12* TSH 6.30* FREET4 1.20 HGBA1C 6.8* CARDIAC: Recent Labs 10/16/23 0906 10/16/23 0156 TROPHS -- 916* BNP 88 -- Recent Labs 10/16/23 0156 CHOL 114 HDL 25.8 TOX:No results for input(s): AMPHETAMINE , BENZO , CANNABINOID , COCAI , FENTANYL , OPIATE , OXYCODONE , PCP in the last 38258 hours. No lab exists for component: BARBSCRUR MICRO: No results for input(s): ESR , CRP , PROCAL in the last 05482 hours. No results found for the last 90 days. FOLLOWUP: No future appointments. Subjective Data: - No complaints, denies chest pain or shortness of breath. - pending PCI on 10/[address] Wiley, patient aware of plan - will load with antiplatelet today per interventional, pending choice - Melgar Ticagrelor $424, Plavix $4, Prasugrel $22 - remains hypervolemic , C/w Bumex - RFP pending today - RFP and CBC tomorrow am Overnight Events: No acute events overnight Objective Data: Last Recorded Vitals: Vitals: 10/21/23 1931 10/21/23 2351 10/22/23 0441 10/22/23 0730 BP: 149/75 117/68 126/67 136/72 BP Location: Right arm Right arm Right arm Right arm Patient Position: Lying Lying Lying Sitting Pulse: 72 69 69 63 Resp: 19 20 19 19 Temp: 36 C (96.8 F) 36 C (96.8 F) 36.7 C (98.1 F) 36.3 C (97.3 F) TempSrc: Temporal Temporal Temporal Temporal SpO2: 96% 95% 95% 95% Weight: Height: Last Labs: Results for orders placed or performed during the hospital encounter of 10/15/23 (from the past 24 hour(s)) POCT GLUCOSE Result Value Ref Range POCT Glucose 392 (H) 74 - 99 mg/dL POCT GLUCOSE Result Value Ref Range POCT Glucose 258 (H) 74 - 99 mg/dL POCT GLUCOSE Result Value Ref Range POCT Glucose 189 (H) 74 - 99 mg/dL POCT GLUCOSE Result Value Ref Range POCT Glucose 143 (H) 74 - 99 mg/dL TROPHS Date/Time Value Ref Range Status 10/16/2023 01:56 AM 916 0 - 53 ng/L Final BNP Date/Time Value Ref Range Status 10/16/2023 09:06 AM 88 0 - 99 pg/mL Final HGBA1C Date/Time Value Ref Range Status 10/16/2023 01:56 AM 6.8 see below % Final Last I/O: I/O last 3 completed shifts: In: 480 (4.3 mL/kg) [P.O.:480] Out: 2450 (21.7 mL/kg) [Urine:2450 (0.6 mL/kg/hr)] Weight: 112.9 kg Past Cardiology Tests (Last 3 Years): EKG: ECG 12 lead 10/16/2023 (Preliminary) Normal sinus rhythm Prolonged QT Abnormal ECG Echo: LVEF 45-50% with no significant valvular disease. No formal report, images available in [employer]. Ejection Fractions: LVEF 45-50% Cath: 10/15/2023 - images available in [employer] IMPRESSION 1. Three-vessel coronary artery disease as evident by diffuse severe disease inthe proximal to mid LAD in the range of 70 to 80%, 90% marginal 1 and total occlusion of the right coronary artery with collateral filling the distal right coronary artery demonstrating vessel appears to be a good target for revascularization 2. Mild LV systolic dysfunction with LVEF around 45-50% 4. No significant aortic stenosis or mitral regurgitation 4. Elevated left ventricular end-diastolic pressure Inpatient Medications: Scheduled medications Medication Dose Route Frequency aspirin 81 mg oral Daily atorvastatin 80 mg oral Nightly bumetanide 2 mg oral Daily carvedilol 25 mg oral BID enoxaparin 40 mg subcutaneous q24h insulin glargine 60 Units subcutaneous Daily insulin lispro 0-10 Units subcutaneous Before meals & nightly insulin lispro 7 Units subcutaneous TID lidocaine 1 patch transdermal Daily lisinopril 40 mg oral Daily pantoprazole 40 mg oral Daily before breakfast sennosides-docusate sodium 2 tablet oral BID PRN medications Medication acetaminophen dextrose dextrose diclofenac sodium glucagon melatonin nitroglycerin traMADol Continuous Medications Medication Dose Last Rate Physical Exam: Physical Exam Vitals and nursing note reviewed. Constitutional: General: He is not in acute distress. Appearance: Normal appearance. He is not ill-appearing, toxic-appearing or diaphoretic. HENT: Head: Normocephalic and atraumatic. Eyes: General: No scleral icterus. Extraocular Movements: Extraocular movements intact. Conjunctiva/sclera: Conjunctivae normal. Cardiovascular: Rate and Rhythm: Normal rate and regular rhythm. Heart sounds: No murmur heard. No friction rub. No gallop. Pulmonary: Effort: Pulmonary effort is normal. No respiratory distress. Breath sounds: Normal breath sounds. No wheezing, rhonchi or rales. Musculoskeletal: General: No tenderness or deformity. Right lower le+ Edema present. Left lower le+ Edema present. Skin: General: Skin is warm and dry. Coloration: Skin is not jaundiced. Findings: No bruising, erythema, lesion or rash. Neurological: General: No focal deficit present. Mental Status: He is alert and oriented to person, place, and time. Psychiatric: Mood and Affect: Mood is depressed. Affect is angry. Speech: Speech normal. Behavior: Behavior is withdrawn. Assessment/Plan Italia Allen is a 68 y.o. male with PMH of HTN, HLD, DM2, Morbid obesity, OA and CHF, presented with acute on chronic decompensated heart failure and NSTEMI with 3VD on [facility] and mild LV systolic dysfunction. Transferred from OSH for CABG evaluation. NSTEMI Coronary artery disease - presented to OSH with chest pain and shortness of breath - OSH Troponin 80->543->982->1682 - troponin upon transfer: 916 - [facility] 10/14: severe 3V CAD, 70 to 80% prox to mid LAD, 90% marginal 1, and SHRIMP TRAWLER of the RCA with collateral filling the distal RCA demonstrating vessel appears to be a good target for revascularization. Images in [employer]. - s/p Heparin gtt, now completed >48 hrs for ACS protocol - CTS consulted for CABG evaluation, appreciate recs - per CTS/Dr. Ruiz, given patients labile emotional/mental state will not pursue CABG at this time, now s/o - Per Dr. Wiley, plan for staged PCI Sunday 10/22, see CHIP note for full details - will load with prasugrel 60mg today, maintenance dose 10mg to start tomorrow - Melgar Ticagrelor $424, Plavix $4, Prasugrel $22 - Continue ASA 81 mg, carvedilol 25 mg BID, and atorvastatin 80 mg daily Acute on chronic systolic and diastolic heart failure HFmrEF - 45-50% - etiology: likely ICM - Reports a 20 year history of CHF with unknown EF - TTE at [facility]: EF of 45-50%, no significant valvular disease. No formal report available. Images in [employer]. - BNP on admit: 87 - s/p diuresis at OSH with IV P lasix - 2vu CXR on admit: Cardiomegaly with pulmonary edema - Admit Weight: 113 kg - weight today pending 113 kg (112kg) - mild 1+ LE edema-> cont home Bumex 2 mg daily - c/w Carvedilol 25 mg BID - c/w lisinopril 40 mg - Strict Is & Os, Daily Weights 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 - Vascular surgery consulted, no surgical intervention recommended - recommended outpatient follow up DM2 - Hgb A1C on 10/15: 6.8% - home lantus dose: 60 units daily--> initially reduced to 30 units while inpatient - 10/20 increased lantus to 60 units today due to poor BG control - lantus 30units tomorrow AM NPO tomorrow but post PCI plan to resume to home dose day after - continue pre- meal insulin 7 units, SSI scale #2 - Accu-Cheks AC/HS, hypoglycemic protocol HTN - last 24 hour SBP range: 145-153 - lisinopril as 40mg daily - Continue coreg 25 mg BID CKD (unknown baseline stage) - No recent information on kidney function - last Cr in 2016 was normal - appears to be CKD with stable value at OSH - Renal US at [facility] on 10/14 - no acute findings - Cr 1.89 (1.58, 1.35, 1.52, 1.64) - diuresis as above - Avoid nephrotoxins and hypotension Arthritis - Tylenol PRN - Lidocaine patches - Voltaren gel to affected areas QID PRN - PRN tramadol started today for ongoing back pain - per patient, usually takes ibuprofen at home (will avoid due to renal function) Grief - patient lost his ~1 month ago - labile emotions this admit, varies between tearful/anger/withdrawn - therapeutic listening provided, grief/ pre parole counseling aide services offered-> patient declines at this time DVT prophylaxis: subcutaneous Lovenox Dispo: pending PCI 10/22 Code Status: Full code Patient seen and discussed with Dr. Maria R Cabrera, [employer]TIQUE [employer]OCKS REPAIRER-FIRE PREVENTION CAPTAIN, DNP Associated attestation - Mario Heck MD - 10/22/2023 1:26 PM EDT This is a shared visit. I have reviewed the Advanced Practice Provider's encounter note, approve the Advanced Practice Provider's documentation, and provide the following additional information from my personal encounter. Please see my separate note from 10/21. Mario Heck MD [facility] Attending Shared Visit Note This is a shared visit. Please see Advanced Practice Provider's encounter note for additional details. Overnight events/Subjective: feeling ok Exam: Physical exam: flat affect, Normal rate, regular rhythm, non labored breathing, clear to auscultation, abdomen non distended, no LE edema, no focal neuro deficits. A/P: 68 M with HTN, HLD, DM2 who presented to an OSH with chest pain and PARSONS. He was transferred to [facility] where an echo showed EF 45-50% and LHC showed 3VD with reported 70-80% stenosis of the prox-mid LAD, 90% OM1 and SHRIMP TRAWLER of proximal RCA with left to right collaterals. He was transferred for CTS evaluation for CABG. #Multivessel CAD: Continue aspirin, statin. Given his emotional state, CTS felt he would not do well with surgical recovery. As such planned for complex PCI on 10/[address] Wiley. #Mildly reduced LVEF: EF appears around 45-50% on personal review of OSH echo without major valve issues. No clinical evidence of volume overload and normal BNP. Continue carvedilol. Increased lisinopril to 40 mg on 10/20. #CKD: creatinine appears around reported baseline of 1.5. #Grief: in the setting of his passing away. Offered pre parole counseling aide, he did not think he needed it. Dispo: pending PCI this coming week Mario Heck MD Problems: Principal Problem: Acute on chronic systolic (congestive) heart failure (Multi) Active Problems: Hypertension Stage 3a chronic kidney disease (Multi) Type 2 diabetes mellitus without complication (Multi) CAD, multiple vessel NSTEMI (non-ST elevated myocardial infarction) (Multi) Grief Objective Admit Date: 10/15/2023 Hospital Length of Stay: 6 Home: [facility] [id number] Vitals: 10/21/2023 7:41 AM 10/21/2023 5:19 AM 10/20/2023 11:51 PM 10/20/2023 8:31 PM 10/20/2023 3:21 PM 10/20/2023 11:23 AM 10/20/2023 7:31 AM Vitals Systolic 153 144 145 150 143 135 137 Diastolic 76 81 72 73 71 69 72 Heart Rate 81 71 84 80 72 70 75 Temp 36.6 C (97.9 F) 36.8 C (98.2 F) 36.3 C (97.3 F) 36.4 C (97.5 F) 36.9 C (98.4 F) 36.8 C (98.2 F) 36.6 C (97.9 F) Resp 18 20 20 19 18 18 18 Weight (lb) 248.9 BMI 35.71 kg/m2 BSA (m2) 2.36 m2 Wt Readings from Last 5 Encounters: 10/21/23 113 kg (248 lb 14.4 oz) Intake/Output Summary (Last 24 hours) at 10/21/2023 1056 Last data filed at 10/21/2023 0800 Gross per 24 hour Intake 480 ml Output 1950 ml Net -1470 ml MEDICATIONS Infusions: Scheduled: aspirin, 81 mg, Daily atorvastatin, 80 mg, Nightly bumetanide, 2 mg, Daily carvedilol, 25 mg, BID enoxaparin, 40 mg, q24h insulin glargine, 40 Units, Daily insulin lispro, 0-10 Units, Before meals & nightly insulin lispro, 7 Units, TID lidocaine, 1 patch, Daily lisinopril, 30 mg, Once [START ON 10/22/2023] lisinopril, 40 mg, Daily pantoprazole, 40 mg, Daily before breakfast sennosides-docusate sodium, 2 tablet, BID PRN: acetaminophen, 975 mg, q6h PRN dextrose, 12.5 g, q15 min PRN dextrose, 25 g, q15 min PRN diclofenac sodium, 4 g, 4x daily PRN glucagon, 1 mg, q15 min PRN melatonin, 3 mg, Nightly PRN nitroglycerin, 0.4 mg, q5 min PRN traMADol, 25 mg, q8h PRN Prior to Admission Meds: Medications Prior to Admission Medication Sig Dispense Refill Last Dose bumetanide (Bumex) 2 mg tablet Take 1 tablet (2 mg) by mouth once daily. diclofenac (Voltaren) 75 mg EC tablet Take 1 tablet (75 mg) by mouth 2 times a day. glipiZIDE (Glucotrol) 10 mg tablet Take 1 tablet (10 mg) by mouth 2 times a day before meals. insulin detemir (Levemir Flextouch) 100 unit/mL (3 mL) pen Inject 12 Units under the skin 2 times a day. insulin glargine (Lantus) 100 unit/mL (3 mL) pen Inject 60 Units under the skin once daily. lisinopril 40 mg tablet Take 1 tablet (40 mg) by mouth once daily. DATA: CMP: Recent Labs 10/20/23 2124 10/18/23201010/17/23 1739 10/16/23 1846 10/16/23 0156 NA 134* 137 137 138 137 K 3.9 4.1 4.3 4.1 4.3 CL 102 103 104 103 102 CO2 25 26 28 24 26 ANIONGAP 11 12 9* 15 13 BUN 31* 25* 27* 32* 33* CREATININE 1.89* 1.58* 1.35* 1.52* 1.64* EGFR 38* 47* 57* 49* 45* MG 1.74 1.77 1.94 1.84 -- Recent Labs 10/20/23212310/18/23201010/17/23173810/16/23184510/16/23 0156 ALBUMIN 3.3* 3.3* 3.1* 3.1* 3.3* ALT -- -- -- -- 15 AST -- -- -- -- 14 BILITOT -- -- -- -- 0.4 CBC: Recent Labs 10/20/23212310/18/23201010/17/23173810/16/23184510/16/23 0910/16/23 0156 WBC 8.6 7.2 8.6 8.2 -- 9.3 HGB 11.2* 10.7* 11.1* 10.5* -- 11.4* HCT 34.7* 34.3* 35.2* 33.4* -- 35.2* PLT 293 295 316 283 276 285 MCV 89 92 92 91 -- 91 COAG: Recent Labs 10/18/23 0710 10/17/23173810/17/23 1159 10/17/23 0639 10/16/23 2357 10/16/23 0906 10/16/23 0156 INR -- -- -- -- -- -- 1.1 HAUF 0.4 0.3 0.5 0.2 0.3 < > -- < > = values in this interval not displayed. ABO: No results for input(s): ABO in the last 61304 hours. HEME/ENDO: Recent Labs 10/16/23 0156 FERRITIN 184 IRONSAT 12* TSH 6.30* FREET4 1.20 HGBA1C 6.8* CARDIAC: Recent Labs 10/16/23 0906 10/16/23 0156 TROPHS -- 916* BNP 88 -- Recent Labs 10/16/23 0156 CHOL 114 HDL 25.8 TOX:No results for input(s): AMPHETAMINE , BENZO , CANNABINOID , COCAI , FENTANYL , OPIATE , OXYCODONE , PCP in the last 91389 hours. No lab exists for component: BARBSCRUR MICRO: No results for input(s): ESR , CRP , PROCAL in the last 17373 hours. No results found for the last 90 days. FOLLOWUP: No future appointments. Subjective Data: Patient seen and assessed this morning, in chair with no complaints. Denies chest pain or shortness of breath. - pending PCI on 10/[address] Wiley - Cr increased to 1.89 (prev. 1.5)--> bumex initially held this AM, but will resume due to persistent LE swelling - lantus increased to 40 units daily (home regimen is 60 units), will continue to titrate up for better BG control - lisinopril increased back to home dose of 40 mg - tramadol PRN for ongoing chronic back pain Overnight Events: No acute events overnight Objective Data: Last Recorded Vitals: Vitals: 10/20/23 2031 10/20/23 2351 10/21/23 0519 10/21/23 0741 BP: 150/73 145/72 144/81 153/76 BP Location: Right arm Right arm Right arm Right arm Patient Position: Lying Lying Lying Sitting Pulse: 80 84 71 81 Resp: 19 20 20 18 Temp: 36.4 C (97.5 F) 36.3 C (97.3 F) 36.8 C (98.2 F) 36.6 C (97.9 F) TempSrc: Temporal Temporal Temporal Temporal SpO2: 92% 94% 95% 93% Weight: 113 kg (248 lb 14.4 oz) Height: Last Labs: Results for orders placed or performed during the hospital encounter of 10/15/23 (from the past 24 hour(s)) POCT GLUCOSE Result Value Ref Range POCT Glucose 294 (H) 74 - 99 mg/dL POCT GLUCOSE Result Value Ref Range POCT Glucose 298 (H) 74 - 99 mg/dL POCT GLUCOSE Result Value Ref Range POCT Glucose 298 (H) 74 - 99 mg/dL CBC Result Value Ref Range WBC 8.6 4.4 - 11.3 x10*3/uL nRBC 0.0 0.0 - 0.0 /100 WBCs RBC 3.88 (L) 4.50 - 5.90 x10*6/uL Hemoglobin 11.2 (L) 13.5 - 17.5 g/dL Hematocrit 34.7 (L) 41.0 - 52.0 % MCV 89 80 - 100 fL MCH 28.9 26.0 - 34.0 pg MCHC 32.3 32.0 - 36.0 g/dL RDW 14.6 (H) 11.5 - 14.5 % Platelets 293 150 - 450 x10*3/uL Magnesium Result Value Ref Range Magnesium 1.74 1.60 - 2.40 mg/dL Renal function panel Result Value Ref Range Glucose 323 (H) 74 - 99 mg/dL Sodium 134 (L) 136 - 145 mmol/L Potassium 3.9 3.5 - 5.3 mmol/L Chloride 102 98 - 107 mmol/L Bicarbonate 25 21 - 32 mmol/L Anion Gap 11 10 - 20 mmol/L Urea Nitrogen 31 (H) 6 - 23 mg/dL Creatinine 1.89 (H) 0.50 - 1.30 mg/dL eGFR 38 (L) >60 mL/min/1.73m*2 Calcium 8.5 (L) 8.6 - 10.6 mg/dL Phosphorus 3.0 2.5 - 4.9 mg/dL Albumin 3.3 (L) 3.4 - 5.0 g/dL POCT GLUCOSE Result Value Ref Range POCT Glucose 296 (H) 74 - 99 mg/dL POCT GLUCOSE Result Value Ref Range POCT Glucose 254 (H) 74 - 99 mg/dL TROPHS Date/Time Value Ref Range Status 10/16/2023 01:56 AM 916 0 - 53 ng/L Final BNP Date/Time Value Ref Range Status 10/16/2023 09:06 AM 88 0 - 99 pg/mL Final HGBA1C Date/Time Value Ref Range Status 10/16/2023 01:56 AM 6.8 see below % Final Last I/O: I/O last 3 completed shifts: In: 240 (2.1 mL/kg) [P.O.:240] Out: 4100 (36.3 mL/kg) [Urine:4100 (1 mL/kg/hr)] Weight: 112.9 kg Past Cardiology Tests (Last 3 Years): EKG: ECG 12 lead 10/16/2023 (Preliminary) Normal sinus rhythm Prolonged QT Abnormal ECG Echo: LVEF 45-50% with no significant valvular disease. No formal report, images available in [employer]. Ejection Fractions: LVEF 45-50% Cath: 10/15/2023 - images available in [employer] IMPRESSION 1. Three-vessel coronary artery disease as evident by diffuse severe disease inthe proximal to mid LAD in the range of 70 to 80%, 90% marginal 1 and total occlusion of the right coronary artery with collateral filling the distal right coronary artery demonstrating vessel appears to be a good target for revascularization 2. Mild LV systolic dysfunction with LVEF around 45-50% 4. No significant aortic stenosis or mitral regurgitation 4. Elevated left ventricular end-diastolic pressure Inpatient Medications: Scheduled medications Medication Dose Route Frequency aspirin 81 mg oral Daily atorvastatin 80 mg oral Nightly [Held by provider] bumetanide 2 mg oral Daily carvedilol 25 mg oral BID enoxaparin 40 mg subcutaneous q24h insulin glargine 40 Units subcutaneous Daily insulin lispro 0-10 Units subcutaneous Before meals & nightly insulin lispro 7 Units subcutaneous TID lidocaine 1 patch transdermal Daily lisinopril 10 mg oral Daily pantoprazole 40 mg oral Daily before breakfast sennosides-docusate sodium 2 tablet oral BID PRN medications Medication acetaminophen dextrose dextrose diclofenac sodium glucagon melatonin nitroglycerin Continuous Medications Medication Dose Last Rate Physical Exam: Physical Exam Vitals and nursing note reviewed. Constitutional: General: He is not in acute distress. Appearance: Normal appearance. He is not ill-appearing, toxic-appearing or diaphoretic. HENT: Head: Normocephalic and atraumatic. Eyes: General: No scleral icterus. Extraocular Movements: Extraocular movements intact. Conjunctiva/sclera: Conjunctivae normal. Cardiovascular: Rate and Rhythm: Normal rate and regular rhythm. Heart sounds: No murmur heard. No friction rub. No gallop. Pulmonary: Effort: Pulmonary effort is normal. No respiratory distress. Breath sounds: Normal breath sounds. No wheezing, rhonchi or rales. Musculoskeletal: General: No tenderness or deformity. Right lower le+ Edema present. Left lower le+ Edema present. Skin: General: Skin is warm and dry. Coloration: Skin is not jaundiced. Findings: No bruising, erythema, lesion or rash. Neurological: General: No focal deficit present. Mental Status: He is alert and oriented to person, place, and time. Psychiatric: Mood and Affect: Mood is depressed. Affect is angry. Speech: Speech normal. Behavior: Behavior is withdrawn. Assessment/Plan Italia Allen is a 68 y.o. male with PMH of HTN, HLD, DM2, Morbid obesity, OA and CHF, presented with acute on chronic decompensated heart failure and NSTEMI with 3VD on [facility] and mild LV systolic dysfunction. Transferred from OSH for CABG evaluation. NSTEMI Coronary artery disease - presented to OSH with chest pain and shortness of breath - OSH Troponin 80->543->982->1682 - troponin upon transfer: 916 - [facility] 10/14: severe 3V CAD, 70 to 80% prox to mid LAD, 90% marginal 1, and SHRIMP TRAWLER of the RCA with collateral filling the distal RCA demonstrating vessel appears to be a good target for revascularization. Images in [employer]. - s/p Heparin gtt, now completed >48 hrs for ACS protocol - CTS consulted for CABG evaluation, appreciate recs - per CTS/Dr. Ruiz, given patients labile emotional/mental state will not pursue CABG at this time, now s/o - Per Dr. Wiley, PCI feasible, plan for staged PCI Sunday 10/22 (Note pending) - anti- platelet regimen TBD by interventional cardiology - Continue ASA 81 mg, carvedilol 25 mg BID, and atorvastatin 80 mg daily Acute on chronic systolic and diastolic heart failure HFmrEF - 45-50% - etiology: likely ICM - Reports a 20 year history of CHF with unknown EF - TTE at [facility]: EF of 45-50%, no significant valvular disease. No formal report available. Images in [employer]. - BNP on admit: 88 - s/p diuresis at OSH with IV P lasix - 2vu CXR on admit: Cardiomegaly with pulmonary edema - Admit Weight: 113 kg - weight today 113 kg (112kg) - mild 1+ LE edema-> cont home Bumex 2 mg daily - cont Carvedilol to 25 mg BID - lisinopril titrated to 40 mg today (was on 40 mg when admitted, held previously due to CTS work-up) - Strict Is & Os, Daily Weights 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 - Vascular surgery consulted, no surgical intervention recommended - recommended outpatient follow up DM2 - Hgb A1C on 10/15: 6.8% - home lantus dose: 60 units daily--> initially reduced to 30 units while inpatient - increased lantus to 40 units today due to poor BG control, will continue to titrate up for better BG control - continue pre- meal insulin 7 units, SSI scale #2 - Accu-Cheks AC/HS, hypoglycemic protocol HTN - last 24 hour SBP range: 145-153 - home Lisinopril 40mg daily held for CABG evaluation-> increased lisinopril to 40 mg daily today - Continue coreg 25 mg BID CKD (unknown baseline stage) - No recent information on kidney function - last Cr in 2016 was normal - appears to be CKD with stable value at OSH - Renal US at [facility] on 10/14 - no acute findings - Cr 1.89 (1.58, 1.35, 1.52, 1.64) - diuresis as above - Avoid nephrotoxins and hypotension Arthritis - Tylenol PRN - Lidocaine patches - Voltaren gel to affected areas QID PRN - PRN tramadol started today for ongoing back pain - per patient, usually takes ibuprofen at home (will avoid due to renal function) Grief - patient lost his ~1 month ago - labile emotions this admit, varies between tearful/anger/withdrawn - therapeutic listening provided, grief/ pre parole counseling aide services offered-> patient declines at this time DVT prophylaxis: subcutaneous Lovenox Dispo: pending PCI 10/22 Code Status: Full code Patient seen and discussed with Dr. Maria R Sinclair, [employer] Associated attestation - Mario Heck MD - 10/21/2023 11:54 AM EDT This is a shared visit. I have reviewed the Advanced Practice Provider's encounter note, approve the Advanced Practice Provider's documentation, and provide the following additional information from my personal encounter. Please see my separate note from 10/20. Mario Heck MD [facility] Attending Shared Visit Note This is a shared visit. Please see Advanced Practice Provider's encounter note for additional details. Overnight events/Subjective: doesn't feel like walking Exam: Physical exam: flat affect, Normal rate, regular rhythm, non labored breathing, clear to auscultation, abdomen non distended, no LE edema, no focal neuro deficits. A/P: 68 M with HTN, HLD, DM2 who presented to an OSH with chest pain and PARSONS. He was transferred to [facility] where an echo showed EF 45-50% and LHC showed 3VD with reported 70-80% stenosis of the prox-mid LAD, 90% OM1 and SHRIMP TRAWLER of proximal RCA with left to right collaterals. He was transferred for CTS evaluation for CABG. #Multivessel CAD: Continue aspirin, statin. Given his emotional state, CTS felt he would not do well with surgical recovery. As such planned for complex PCI on 10/[address] Wliey. #Mildly reduced LVEF: EF appears around 45-50% on personal review of OSH echo without major valve issues. No clinical evidence of volume overload and normal BNP. Continue carvedilol. Added lisinopril 10 mg on 10/19. #CKD: creatinine appears around reported baseline of 1.5. #Grief: in the setting of his passing away. Offered pre parole counseling aide, he did not think he needed it. Dispo: pending PCI this coming week Mario Heck MD Problems: Principal Problem: Acute on chronic systolic (congestive) heart failure (Multi) Active Problems: Hypertension Stage 3a chronic kidney disease (Multi) Type 2 diabetes mellitus without complication (Multi) CAD, multiple vessel NSTEMI (non-ST elevated myocardial infarction) (Multi) Grief Objective Admit Date: 10/15/2023 Hospital Length of Stay: 5 Home: [facility] [id number] Vitals: 10/20/2023 7:31 AM 10/20/2023 4:30 AM 10/20/2023 12:30 AM 10/19/2023 7:00 PM 10/19/2023 3:53 PM 10/19/2023 11:29 AM 10/19/2023 8:52 AM Vitals Systolic 137 131 154 147 150 138 127 Diastolic 72 68 76 72 63 69 67 Heart Rate 75 72 72 73 73 68 80 Temp 36.6 C (97.9 F) 36.9 C (98.4 F) 36.9 C (98.4 F) 36.8 C (98.2 F) 36.6 C (97.9 F) 36.9 C (98.4 F) 36.5 C (97.7 F) Resp 18 18 18 18 18 20 20 Weight (lb) 246.92 BMI 35.43 kg/m2 BSA (m2) 2.35 m2 Wt Readings from Last 5 Encounters: 10/20/23 112 kg (246 lb 14.6 oz) Intake/Output Summary (Last 24 hours) at 10/20/2023 1100 Last data filed at 10/20/2023 0430 Gross per 24 hour Intake -- Output 2650 ml Net -2650 ml MEDICATIONS Infusions: Scheduled: aspirin, 81 mg, Daily atorvastatin, 80 mg, Nightly bumetanide, 2 mg, Daily carvedilol, 25 mg, BID enoxaparin, 40 mg, q24h [START ON 10/21/2023] insulin glargine, 35 Units, Daily insulin lispro, 0-10 Units, TID insulin lispro, 7 Units, TID lidocaine, 1 patch, Daily lisinopril, 10 mg, Daily pantoprazole, 40 mg, Daily before breakfast sennosides-docusate sodium, 2 tablet, BID PRN: acetaminophen, 975 mg, q6h PRN dextrose, 12.5 g, q15 min PRN dextrose, 25 g, q15 min PRN diclofenac sodium, 4 g, 4x daily PRN glucagon, 1 mg, q15 min PRN melatonin, 3 mg, Nightly PRN nitroglycerin, 0.4 mg, q5 min PRN Prior to Admission Meds: Medications Prior to Admission Medication Sig Dispense Refill Last Dose bumetanide (Bumex) 2 mg tablet Take 1 tablet (2 mg) by mouth once daily. diclofenac (Voltaren) 75 mg EC tablet Take 1 tablet (75 mg) by mouth 2 times a day. glipiZIDE (Glucotrol) 10 mg tablet Take 1 tablet (10 mg) by mouth 2 times a day before meals. insulin detemir (Levemir Flextouch) 100 unit/mL (3 mL) pen Inject 12 Units under the skin 2 times a day. insulin glargine (Lantus) 100 unit/mL (3 mL) pen Inject 60 Units under the skin once daily. lisinopril 40 mg tablet Take 1 tablet (40 mg) by mouth once daily. DATA: CMP: Recent Labs 10/18/23201010/17/23173810/16/23184510/16/23 0156 NA 137 137 138 137 K 4.1 4.3 4.1 4.3 CL 103 104 103 102 CO2 ANIONGAP 12 9* 15 13 BUN 25* 27* 32* 33* CREATININE 1.58* 1.35* 1.52* 1.64* EGFR 47* 57* 49* 45* MG 1.77 1.94 1.84 -- Recent Labs 10/18/23201010/17/23173810/16/23184510/16/23 0156 ALBUMIN 3.3* 3.1* 3.1* 3.3* ALT -- -- -- 15 AST -- -- -- 14 BILITOT -- -- -- 0.4 CBC: Recent Labs 10/18/23201010/17/23173810/16/23184510/16/23 0906 10/16/23 0156 WBC 7.2 8.6 8.2 -- 9.3 HGB 10.7* 11.1* 10.5* -- 11.4* HCT 34.3* 35.2* 33.4* -- 35.2* PLT 295 316 283 276 285 MCV 92 92 91 -- 91 COAG: Recent Labs 10/18/23 0710 10/17/23173810/17/23 1159 10/17/23 0639 10/16/23 2357 10/16/23 0906 10/16/23 0156 INR -- -- -- -- -- -- 1.1 HAUF 0.4 0.3 0.5 0.2 0.3 < > -- < > = values in this interval not displayed. ABO: No results for input(s): ABO in the last 51901 hours. HEME/ENDO: Recent Labs 10/16/23 0156 FERRITIN 184 IRONSAT 12* TSH 6.30* FREET4 1.20 HGBA1C 6.8* CARDIAC: Recent Labs 10/16/23 0906 10/16/23 0156 TROPHS -- 916* BNP 88 -- Recent Labs 10/16/23 0156 CHOL 114 HDL 25.8 TOX:No results for input(s): AMPHETAMINE , BENZO , CANNABINOID , COCAI , FENTANYL , OPIATE , OXYCODONE , PCP in the last 60070 hours. No lab exists for component: BARBSCRUR MICRO: No results for input(s): ESR , CRP , PROCAL in the last 86198 hours. No results found for the last 90 days. FOLLOWUP: No future appointments. Subjective Data: Patient seen and assessed this morning, in chair with no complaints. Denies chest pain or shortness of breath. - pending PCI on 10/[address] Wiley - lisinopril 10 mg started Overnight Events: No acute events overnight Objective Data: Last Recorded Vitals: Vitals: 10/19/23 1900 10/20/23 0030 10/20/23 0430 10/20/23 0731 BP: 147/72 154/76 131/68 137/72 BP Location: Right arm Right arm Right arm Right arm Patient Position: Lying Lying Sitting Sitting Pulse: 73 72 72 75 Resp: 18 18 18 18 Temp: 36.8 C (98.2 F) 36.9 C (98.4 F) 36.9 C (98.4 F) 36.6 C (97.9 F) TempSrc: Temporal Temporal Temporal Temporal SpO2: 95% 93% 93% 93% Weight: 112 kg (246 lb 14.6 oz) Height: Last Labs: Results for orders placed or performed during the hospital encounter of 10/15/23 (from the past 24 hour(s)) POCT GLUCOSE Result Value Ref Range POCT Glucose 274 (H) 74 - 99 mg/dL POCT GLUCOSE Result Value Ref Range POCT Glucose 249 (H) 74 - 99 mg/dL POCT GLUCOSE Result Value Ref Range POCT Glucose 355 (H) 74 - 99 mg/dL POCT GLUCOSE Result Value Ref Range POCT Glucose 146 (H) 74 - 99 mg/dL POCT GLUCOSE Result Value Ref Range POCT Glucose 173 (H) 74 - 99 mg/dL TROPHS Date/Time Value Ref Range Status 10/16/2023 01:56 AM 916 0 - 53 ng/L Final BNP Date/Time Value Ref Range Status 10/16/2023 09:06 AM 88 0 - 99 pg/mL Final HGBA1C Date/Time Value Ref Range Status 10/16/2023 01:56 AM 6.8 see below % Final Last I/O: I/O last 3 completed shifts: In: 220 (2 mL/kg) [P.O.:220] Out: 2650 (23.7 mL/kg) [Urine:2650 (0.7 mL/kg/hr)] Weight: 112 kg Past Cardiology Tests (Last 3 Years): EKG: ECG 12 lead 10/16/2023 (Preliminary) Normal sinus rhythm Prolonged QT Abnormal ECG Echo: LVEF 45-50% with no significant valvular disease. No formal report, images available in [employer]. Ejection Fractions: LVEF 45-50% Cath: 10/15/2023 - images available in [employer] IMPRESSION 1. Three-vessel coronary artery disease as evident by diffuse severe disease inthe proximal to mid LAD in the range of 70 to 80%, 90% marginal 1 and total occlusion of the right coronary artery with collateral filling the distal right coronary artery demonstrating vessel appears to be a good target for revascularization 2. Mild LV systolic dysfunction with LVEF around 45-50% 4. No significant aortic stenosis or mitral regurgitation 4. Elevated left ventricular end-diastolic pressure Inpatient Medications: Scheduled medications Medication Dose Route Frequency aspirin 81 mg oral Daily atorvastatin 80 mg oral Nightly bumetanide 2 mg oral Daily carvedilol 25 mg oral BID enoxaparin 40 mg subcutaneous q24h insulin glargine 30 Units subcutaneous Daily insulin lispro 0-10 Units subcutaneous q4h insulin lispro 7 Units subcutaneous TID lidocaine 1 patch transdermal Daily mupirocin Topical BID pantoprazole 40 mg oral Daily before breakfast sennosides-docusate sodium 2 tablet oral BID PRN medications Medication acetaminophen dextrose dextrose diclofenac sodium glucagon melatonin nitroglycerin Continuous Medications Medication Dose Last Rate Physical Exam: Physical Exam Vitals and nursing note reviewed. Constitutional: General: He is not in acute distress. Appearance: Normal appearance. He is not ill-appearing, toxic-appearing or diaphoretic. HENT: Head: Normocephalic and atraumatic. Eyes: General: No scleral icterus. Extraocular Movements: Extraocular movements intact. Conjunctiva/sclera: Conjunctivae normal. Cardiovascular: Rate and Rhythm: Normal rate and regular rhythm. Heart sounds: No murmur heard. No friction rub. No gallop. Pulmonary: Effort: Pulmonary effort is normal. No respiratory distress. Breath sounds: Normal breath sounds. No wheezing, rhonchi or rales. Musculoskeletal: General: No tenderness or deformity. Comments: trace edema to BLE, improved Skin: General: Skin is warm and dry. Coloration: Skin is not jaundiced. Findings: No bruising, erythema, lesion or rash. Neurological: General: No focal deficit present. Mental Status: He is alert and oriented to person, place, and time. Psychiatric: Mood and Affect: Mood is depressed. Affect is angry and tearful. Speech: Speech normal. Behavior: Behavior is withdrawn. Assessment/Plan Italia Allen is a 68 y.o. male with PMH of HTN, HLD, DM2, Morbid obesity, OA and CHF, presented with acute on chronic decompensated heart failure and NSTEMI with 3VD on [facility] and mild LV systolic dysfunction. Transferred from OSH for CABG evaluation. NSTEMI Coronary artery disease - presented to OSH with chest pain and shortness of breath - OSH Troponin 80->543->982->1682 - troponin upon transfer: 916 - [facility] 10/14: severe 3V CAD, 70 to 80% prox to mid LAD, 90% marginal 1, and SHRIMP TRAWLER of the RCA with collateral filling the distal RCA demonstrating vessel appears to be a good target for revascularization. Images in [employer]. - s/p Heparin gtt, now completed >48 hrs for ACS protocol - CTS consulted for CABG evaluation, appreciate recs - per CTS/Dr. Ruiz, given patients labile emotional/mental state will not pursue CABG at this time, now s/o - Per Dr. 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 No formal report available. Images in [employer]. 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 - Vascular surgery consulted, no surgical intervention recommended - recommended outpatient follow up DM2 - Hgb A1C on 10/15: 6.8% - home lantus dose: 60 units daily--> initially reduced to 30 units while inpatient - increased lantus to 35 units today due to poor BG control - continue pre- meal insulin 7 units, SSI scale #2 - Accu-Cheks AC/HS, hypoglycemic protocol HTN - last 24 hour SBP range: 131- 154 - home Lisinopril 40mg daily held for CABG evaluation-> restarted 10 mg lisinopril today - Continue coreg 25 mg BID CKD (unknown baseline stage) - No previous information on kidney function - last Cr in 2017 was normal - appears to be CKD with stable value at OSH - Renal US at [facility] on 10/14 - no acute findings - Cr 1.58 (1.68-> 1.64->1.52->1.35) - Avoid nephrotoxins and hypotension Arthritis - Tylenol PRN - Lidocaine patches - Voltaren gel to affected areas QID PRN DVT prophylaxis: subcutaneous Lovenox Dispo: pending PCI 10/22 Code Status: Full code Patient seen and discussed with Dr. Maria R Sinclair, [employer] REPA[employer]ER-[employer]ION CAPTAIN Associated attestation - Mario Heck MD - 10/20/2023 11:22 AM EDT This is a shared visit. I have reviewed the Advanced Practice Provider's encounter note, approve the Advanced Practice Provider's documentation, and provide the following additional information from my personal encounter. Please see my separate note from 10/19. Mario Heck MD Subjective Data: Patient seen and assessed this morning, in chair eating breakfast, resting in bed during rounds, NAD. Continues to deny any CP or SOB, dizziness or lightheadedness. He continues to endorse chronic body aches, especially in his hips and back from arthritis, slightly improved with extra strength tylenol and Voltaren gel. He remains emotionally unstable, verbally aggressive, and refusing any phychiatric, spiritual, or therapeutic consultation. Therapeutic listening provided. Plan of care reviewed with patient, agreeable to plan. - per CTS/Dr. Ruiz, given patients labile emotional/mental state will not pursue CABG at this time, now s/o - Per Dr. Wiley, PCI feasible, plan for staged PCI Sunday 10/22, pt agreeable Overnight Events: No acute events overnight Objective Data: Last Recorded Vitals: Vitals: 10/18/23 2343 10/19/23 0438 10/19/23 0852 10/19/23 1129 BP: 118/66 154/82 127/67 138/69 BP Location: Left arm Left arm Right arm Right arm Patient Position: Lying Lying Sitting Lying Pulse: 75 60 80 68 Resp: 20 19 20 20 Temp: 36.4 C (97.5 F) 36 C (96.8 F) 36.5 C (97.7 F) 36.9 C (98.4 F) TempSrc: Temporal Temporal Temporal Temporal SpO2: 93% 95% 95% 94% Weight: 113 kg (248 lb 3.8 oz) Height: Last Labs: Results for orders placed or performed during the hospital encounter of 10/15/23 (from the past 24 hour(s)) POCT GLUCOSE Result Value Ref Range POCT Glucose 238 (H) 74 - 99 mg/dL CBC Result Value Ref Range WBC 7.2 4.4 - 11.3 x10*3/uL nRBC 0.0 0.0 - 0.0 /100 WBCs RBC 3.73 (L) 4.50 - 5.90 x10*6/uL Hemoglobin 10.7 (L) 13.5 - 17.5 g/dL Hematocrit 34.3 (L) 41.0 - 52.0 % MCV 92 80 - 100 fL MCH 28.7 26.0 - 34.0 pg MCHC 31.2 (L) 32.0 - 36.0 g/dL RDW 14.6 (H) 11.5 - 14.5 % Platelets 295 150 - 450 x10*3/uL Magnesium Result Value Ref Range Magnesium 1.77 1.60 - 2.40 mg/dL Renal function panel Result Value Ref Range Glucose 220 (H) 74 - 99 mg/dL Sodium 137 136 - 145 mmol/L Potassium 4.1 3.5 - 5.3 mmol/L Chloride 103 98 - 107 mmol/L Bicarbonate 26 21 - 32 mmol/L Anion Gap 12 10 - 20 mmol/L Urea Nitrogen 25 (H) 6 - 23 mg/dL Creatinine 1.58 (H) 0.50 - 1.30 mg/dL eGFR 47 (L) >60 mL/min/1.73m*2 Calcium 8.5 (L) 8.6 - 10.6 mg/dL Phosphorus 2.8 2.5 - 4.9 mg/dL Albumin 3.3 (L) 3.4 - 5.0 g/dL POCT GLUCOSE Result Value Ref Range POCT Glucose 169 (H) 74 - 99 mg/dL POCT GLUCOSE Result Value Ref Range POCT Glucose 121 (H) 74 - 99 mg/dL POCT GLUCOSE Result Value Ref Range POCT Glucose 129 (H) 74 - 99 mg/dL POCT GLUCOSE Result Value Ref Range POCT Glucose 274 (H) 74 - 99 mg/dL TROPHS Date/Time Value Ref Range Status 10/16/2023 01:56 AM 916 0 - 53 ng/L Final BNP Date/Time Value Ref Range Status 10/16/2023 09:06 AM 88 0 - 99 pg/mL Final HGBA1C Date/Time Value Ref Range Status 10/16/2023 01:56 AM 6.8 see below % Final Last I/O: I/O last 3 completed shifts: In: 480 (4.3 mL/kg) [P.O.:480] Out: 1830 (16.3 mL/kg) [Urine:1830 (0.5 mL/kg/hr)] Weight: 112.6 kg Past Cardiology Tests (Last 3 Years): EKG: ECG 12 lead 10/16/2023 (Preliminary) Normal sinus rhythm Prolonged QT Abnormal ECG Echo: LVEF 45-50% with no significant valvular disease. No formal report, images available in [facility]. Ejection Fractions: LVEF 45-50% Cath: 10/15/2023 - images available in [employer] IMPRESSION 1. Three-vessel coronary artery disease as evident by diffuse severe disease inthe proximal to mid LAD in the range of 70 to 80%, 90% marginal 1 and total occlusion of the right coronary artery with collateral filling the distal right coronary artery demonstrating vessel appears to be a good target for revascularization 2. Mild LV systolic dysfunction with LVEF around 45-50% 4. No significant aortic stenosis or mitral regurgitation 4. Elevated left ventricular end-diastolic pressure Inpatient Medications: Scheduled medications Medication Dose Route Frequency aspirin 81 mg oral Daily atorvastatin 80 mg oral Nightly bumetanide 2 mg oral Daily carvedilol 25 mg oral BID enoxaparin 40 mg subcutaneous q24h insulin glargine 30 Units subcutaneous Daily insulin lispro 0-10 Units subcutaneous q4h insulin lispro 7 Units subcutaneous TID lidocaine 1 patch transdermal Daily mupirocin Topical BID pantoprazole 40 mg oral Daily before breakfast sennosides-docusate sodium 2 tablet oral BID PRN medications Medication acetaminophen dextrose dextrose diclofenac sodium glucagon melatonin nitroglycerin Continuous Medications Medication Dose Last Rate Physical Exam: Physical Exam Vitals and nursing note reviewed. Constitutional: General: He is not in acute distress. Appearance: Normal appearance. He is not ill-appearing, toxic-appearing or diaphoretic. HENT: Head: Normocephalic and atraumatic. Eyes: General: No scleral icterus. Extraocular Movements: Extraocular movements intact. Conjunctiva/sclera: Conjunctivae normal. Cardiovascular: Rate and Rhythm: Normal rate and regular rhythm. Heart sounds: No murmur heard. No friction rub. No gallop. Pulmonary: Effort: Pulmonary effort is normal. No respiratory distress. Breath sounds: Normal breath sounds. No wheezing, rhonchi or rales. Musculoskeletal: General: No tenderness or deformity. Comments: trace edema to BLE, improved Skin: General: Skin is warm and dry. Coloration: Skin is not jaundiced. Findings: No bruising, erythema, lesion or rash. Neurological: Mental Status: He is alert. Psychiatric: Mood and Affect: Mood is depressed. Affect is angry and tearful. Speech: Speech normal. Behavior: Behavior is agitated, aggressive and withdrawn. Assessment/Plan Italia Allen is a 68 y.o. male with PMH of HTN, HLD, DM2, Morbid obesity, OA and CHF, presented with acute on chronic decompensated heart failure and NSTEMI with 3VD on [facility] and mild LV systolic dysfunction. Transferred from OSH for CABG evaluation. NSTEMI Coronary artery disease - presented to OSH with chest pain and shortness of breath - OSH Troponin 80->543->982->1682 - troponin upon transfer: 916 - [facility] 10/14: severe 3V CAD, 70 to 80% prox to mid LAD, 90% marginal 1, and SHRIMP TRAWLER of the RCA with collateral filling the distal RCA demonstrating vessel appears to be a good target for revascularization. Images in [facility]ng[facility]. - s/p Heparin gtt, completed >48 hrs for ACS protocol - CTS consulted for CABG evaluation, appreciate recs - per CTS/Dr. Ruiz, given patients labile emotional/mental state will not pursue CABG at this time, now s/o - Per Dr. 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 No formal report available. Images in [facility]. 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 - Vascular surgery consulted, no surgical intervention recommended - outpatient follow up DM2 - Hgb A1C on 10/15: 6.8% - home lantus dose: 60 units daily--> reduced to 30 units while inpatient - continue pre- meal insulin 7 units, SSI scale #2 - Accu-Cheks AC/HS, hypoglycemic protocol HTN - last 24 hour BP range 117-157/66-82 - home Lisinopril 40mg daily held for CABG evaluation - Continue with meds as above CKD (unknown stage) - No previous information on kidney function - last Cr in 2017 was normal - appears to be CKD with stable value at OSH - Renal US at [facility] on 10/14 - no acute findings - Cr 1.58 (1.68-> 1.64->1.52->1.35) - Avoid nephrotoxins and hypotension Arthritis - Tylenol PRN - Lidocaine patches - Voltaren gel to affected areas QID PRN DVT prophylaxis: subcutaneous Lovenox Dispo: pending PCI 10/22 Code Status: Full code Patient seen and discussed with Dr. Maria R Waller, [employer]TIQUE [employer] REPA[employer]ER-[employer]ION CAPTAIN Associated attestation - Mario Heck MD - 10/19/2023 2:49 PM EDT This is a shared visit. I have reviewed the Advanced Practice Provider's encounter note, approve the Advanced Practice Provider's documentation, and provide the following additional information from my personal encounter. Please see my separate note from 10/18. Mario Heck MD [facility] Attending Shared Visit Note This is a shared visit. Please see Advanced Practice Provider's encounter note for additional details. Overnight events/Subjective: plan for PCI Exam: Physical exam: flat affect, Normal rate, regular rhythm, non labored breathing, clear to auscultation, abdomen non distended, no LE edema, no focal neuro deficits. A/P: 68 M with HTN, HLD, DM2 who presented to an OSH with chest pain and PARSONS. He was transferred to [facility] where an echo showed EF 45-50% and LHC showed 3VD with reported 70-80% stenosis of the prox-mid LAD, 90% OM1 and SHRIMP TRAWLER of proximal RCA with left to right collaterals. He was transferred for CTS evaluation for CABG. #Multivessel CAD: Continue aspirin, statin. Given his emotional state, CTS felt he would not do well with surgical recovery. As such planned for complex PCI on 10/[address] Wiley. #HFmrEF: EF appears around 45-50% on personal review of OSH echo without major valve issues. No clinical evidence of volume overload. Continue carvedilol. Will adjust GDMT pending clinical course #CKD: creatinine appears around reported baseline of 1.5. #Grief: in the setting of his passing away. Offered pre parole counseling aide, he did not think he needed it. Dispo: pending PCI next week Mario Heck MD Problems: Principal Problem: Acute on chronic systolic (congestive) heart failure (Multi) Active Problems: Hypertension Stage 3a chronic kidney disease (Multi) Type 2 diabetes mellitus without complication (Multi) CAD, multiple vessel NSTEMI (non-ST elevated myocardial infarction) (Multi) Grief Objective Admit Date: 10/15/2023 Hospital Length of Stay: 4 Home: [facility] [id number] Vitals: 10/19/2023 11:29 AM 10/19/2023 8:52 AM 10/19/2023 4:38 AM 10/18/2023 11:43 PM 10/18/2023 8:21 PM 10/18/2023 4:12 PM 10/18/2023 10:48 AM Vitals Systolic 138 127 154 118 129 157 117 Diastolic 69 67 82 66 66 76 71 Heart Rate 68 80 60 75 76 75 80 Temp 36.9 C (98.4 F) 36.5 C (97.7 F) 36 C (96.8 F) 36.4 C (97.5 F) 36 C (96.8 F) 36.4 C (97.5 F) 36.6 C (97.9 F) Resp 20 20 19 20 20 17 18 Weight (lb) 248.24 BMI 35.62 kg/m2 BSA (m2) 2.36 m2 Wt Readings from Last 5 Encounters: 10/19/23 113 kg (248 lb 3.8 oz) Intake/Output Summary (Last 24 hours) at 10/19/2023 1258 Last data filed at 10/19/2023 1129 Gross per 24 hour Intake 220 ml Output 500 ml Net -280 ml MEDICATIONS Infusions: Scheduled: aspirin, 81 mg, Daily atorvastatin, 80 mg, Nightly bumetanide, 2 mg, Daily carvedilol, 25 mg, BID enoxaparin, 40 mg, q24h insulin glargine, 30 Units, Daily insulin lispro, 0-10 Units, q4h insulin lispro, 7 Units, TID lidocaine, 1 patch, Daily mupirocin, , BID pantoprazole, 40 mg, Daily before breakfast sennosides-docusate sodium, 2 tablet, BID PRN: acetaminophen, 975 mg, q6h PRN dextrose, 12.5 g, q15 min PRN dextrose, 25 g, q15 min PRN diclofenac sodium, 4 g, 4x daily PRN glucagon, 1 mg, q15 min PRN melatonin, 3 mg, Nightly PRN nitroglycerin, 0.4 mg, q5 min PRN Prior to Admission Meds: Medications Prior to Admission Medication Sig Dispense Refill Last Dose bumetanide (Bumex) 2 mg tablet Take 1 tablet (2 mg) by mouth once daily. diclofenac (Voltaren) 75 mg EC tablet Take 1 tablet (75 mg) by mouth 2 times a day. glipiZIDE (Glucotrol) 10 mg tablet Take 1 tablet (10 mg) by mouth 2 times a day before meals. insulin detemir (Levemir Flextouch) 100 unit/mL (3 mL) pen Inject 12 Units under the skin 2 times a day. insulin glargine (Lantus) 100 unit/mL (3 mL) pen Inject 60 Units under the skin once daily. lisinopril 40 mg tablet Take 1 tablet (40 mg) by mouth once daily. DATA: CMP: Recent Labs 10/18/23201010/17/23173810/16/23184510/16/23 0156 NA 137 137 138 137 K 4.1 4.3 4.1 4.3 CL 103 104 103 102 CO2 26 28 24 26 ANIONGAP 12 9* 15 13 BUN 25* 27* 32* 33* CREATININE 1.58* 1.35* 1.52* 1.64* EGFR 47* 57* 49* 45* MG 1.77 1.94 1.84 -- Recent Labs 10/18/23201010/17/23173810/16/23 18410/16/23 0156 ALBUMIN 3.3* 3.1* 3.1* 3.3* ALT -- -- -- 15 AST -- -- -- 14 BILITOT -- -- -- 0.4 CBC: Recent Labs 10/18/23201010/17/23 1739 10/16/23 1846 10/16/23 0906 10/16/23 0156 WBC 7.2 8.6 8.2 -- 9.3 HGB 10.7* 11.1* 10.5* -- 11.4* HCT 34.3* 35.2* 33.4* -- 35.2* PLT 295 316 283 276 285 MCV 92 92 91 -- 91 COAG: Recent Labs 10/18/23 0710/17/23173810/17/23115810/17/23 0639 10/16/23 2357 10/16/23 0910/16/23 0156 INR -- -- -- -- -- -- 1.1 HAUF 0.4 0.3 0.5 0.2 0.3 < > -- < > = values in this interval not displayed. ABO: No results for input(s): ABO in the last 41013 hours. HEME/ENDO: Recent Labs 10/16/23 015 FERRITIN 184 IRONSAT 12* TSH 6.30* FREET4 1.20 HGBA1C 6.8* CARDIAC: Recent Labs 10/16/23 0906 10/16/23 0156 TROPHS -- 916* BNP 88 -- Recent Labs 10/16/23 0156 CHOL 114 HDL 25.8 TOX:No results for input(s): AMPHETAMINE , BENZO , CANNABINOID , COCAI , FENTANYL , OPIATE , OXYCODONE , PCP in the last 23935 hours. No lab exists for component: BARBSCRUR MICRO: No results for input(s): ESR , CRP , PROCAL in the last 02971 hours. No results found for the last 90 days. FOLLOWUP: No future appointments. Subjective Data: Italia is seen resting in his bed this morning. He denies chest pain or shortness of breath. He states that he is having a lot of body aches, especially in his hips and back, from his arthritis and is having a difficult time getting the lidocaine patches to stay on to help him. He was on oral diclofenac at home, we will try diclofenac gel. He became tearful again due to being frustrated that he has been missing his granddaughter's volleyball games while being in the hospital. - Resume home dose of Bumex 2 mg daily, monitor labs - Discontinue Heparin gtt Overnight Events: No acute events overnight Objective Data: Last Recorded Vitals: Vitals: 10/17/23200510/17/23 2321 10/18/23 0441 10/18/23 0715 BP: 152/70 144/73 160/78 154/73 BP Location: Left arm Left arm Left arm Patient Position: Lying Lying Lying Pulse: 96 80 84 83 Resp: 18 19 20 18 Temp: 37.1 C (98.8 F) 37 C (98.6 F) 36.7 C (98.1 F) 36.9 C (98.5 F) TempSrc: Temporal Temporal Temporal SpO2: 90% 93% 93% 92% Weight: 114 kg (250 lb 7.1 oz) Height: Last Labs: CBC - 10/17/2023: 5:39 PM 8.6 11.1 316 35.2 CMP - 10/17/2023: 5:39 PM 8.2 5.6 14 --- 0.4 2.5 3.1 15 58 PTT - 10/16/2023: 1:56 AM 1.1 12.5 30 TROPHS Date/Time Value Ref Range Status 10/16/2023 01:56 AM 916 0 - 53 ng/L Final BNP Date/Time Value Ref Range Status 10/16/2023 09:06 AM 88 0 - 99 pg/mL Final HGBA1C Date/Time Value Ref Range Status 10/16/2023 01:56 AM 6.8 see below % Final Last I/O: I/O last 3 completed shifts: In: 63.5 (0.6 mL/kg) [I.V.:63.5 (0.6 mL/kg)] Out: 1600 (14.1 mL/kg) [Urine:1600 (0.4 mL/kg/hr)] Weight: 113.6 kg Past Cardiology Tests (Last 3 Years): EKG: ECG 12 lead 10/16/2023 (Preliminary) Normal sinus rhythm Prolonged QT Abnormal ECG Echo: LVEF 45-50% with no significant valvular disease. No formal report, images available in [facility]ng[facility]. Ejection Fractions: LVEF 45-50% Cath: 10/15/2023 - images available in [employer] IMPRESSION 1. Three-vessel coronary artery disease as evident by diffuse severe disease inthe proximal to mid LAD in the range of 70 to 80%, 90% marginal 1 and total occlusion of the right coronary artery with collateral filling the distal right coronary artery demonstrating vessel appears to be a good target for revascularization 2. Mild LV systolic dysfunction with LVEF around 45-50% 4. No significant aortic stenosis or mitral regurgitation 4. Elevated left ventricular end-diastolic pressure Inpatient Medications: Scheduled medications Medication Dose Route Frequency aspirin 81 mg oral Daily atorvastatin 80 mg oral Nightly bumetanide 2 mg oral Daily carvedilol 25 mg oral BID insulin glargine 30 Units subcutaneous Daily insulin lispro 0-5 Units subcutaneous TID insulin lispro 7 Units subcutaneous TID lidocaine 1 patch transdermal Daily mupirocin Topical BID pantoprazole 40 mg oral Daily before breakfast sennosides-docusate sodium 2 tablet oral BID PRN medications Medication acetaminophen dextrose dextrose glucagon glucagon melatonin nitroglycerin oxyCODONE-acetaminophen Continuous Medications Medication Dose Last Rate Physical Exam: Physical Exam Vitals and nursing note reviewed. Constitutional: General: He is not in acute distress. Appearance: Normal appearance. He is not ill-appearing, toxic-appearing or diaphoretic. HENT: Head: Normocephalic and atraumatic. Eyes: General: No scleral icterus. Extraocular Movements: Extraocular movements intact. Conjunctiva/sclera: Conjunctivae normal. Cardiovascular: Rate and Rhythm: Normal rate and regular rhythm. Heart sounds: No murmur heard. No friction rub. No gallop. Pulmonary: Effort: Pulmonary effort is normal. No respiratory distress. Breath sounds: Normal breath sounds. No wheezing, rhonchi or rales. Musculoskeletal: General: No tenderness or deformity. Comments: 1+ pitting edema to BLE Skin: General: Skin is warm and dry. Coloration: Skin is not jaundiced. Findings: No bruising, erythema, lesion or rash. Neurological: Mental Status: He is alert. Assessment/Plan Italia Allen is a 68 y.o. male with PMH of HTN, HLD, DM2, Morbid obesity, OA and CHF, presented with acute on chronic decompensated heart failure and NSTEMI with 3VD on [facility] and mild LV systolic dysfunction. Transferred from OSH for CABG evaluation. NSTEMI Coronary artery disease - presented to OSH with chest pain and shortness of breath - OSH Troponin 80->543->982->1682 - troponin upon transfer: 916 - [facility] 10/14: Three-vessel coronary artery disease as evident by diffuse severe disease inthe proximal to mid LAD in the range of 70 to 80%, 90% marginal 1 and total occlusion of the right coronary artery with collateral filling the distal right coronary artery demonstrating vessel appears to be a good target for revascularization. Images have been transferred and are viewable through [employer]. 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 No formal report available. Images have been transferred and are viewable through [employer]. 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 - Vascular surgery consulted, no surgical intervention recommended DM2 - Hgb A1C on 10/15: 6.8% - POCT glucose checks - Insulin sliding scale #2 - home lantus dose: 60 units daily--> reduced to 30 units while inpatient - continue pre- meal insulin 7 units - Hold SGLT-2 inhibitors for CABG evaluation HTN - last 24 hour BP range 144-163/70-80 - On Lisinopril 40mg daily - held for CABG evaluation - increase carvedilol 12.5 mg BID to carvedilol 25 mg BID CKD (unknown stage) - Cr 1.35 (1.68-> 1.64->1.52) - No previous information on kidney function - last Cr in 2016 was normal - Behaves like CKD with stable value at OSH - Renal US at [facility] on 10/14 - no acute findings - Avoid nephrotoxins and hypotension - resume home Bumex today Arthritis - Tylenol PRN - Lidocaine patches - Voltaren gel to affected areas QID PRN DVT prophylaxis: lovenox Dispo: pending CABG work-up/ evaluation Patient seen and discussed with Dr. Heck Peripheral IV 20 G Left;Anterior Forearm (Active) Site Assessment Clean;Intact;Dry 10/17/232099 Dressing Status Clean;Dry 10/17/232099 Number of days: Code Status: Full Code Catia Patton PA-C Associated attestation - Mario Heck MD - 10/18/2023 12:30 PM EDT This is a shared visit. I have reviewed the Advanced Practice Provider's encounter note, approve the Advanced Practice Provider's documentation, and provide the following additional information from my personal encounter. Overnight events/Subjective: carvedilol increased Exam: Physical exam: flat affect, Normal rate, regular rhythm, non labored breathing, clear to auscultation, abdomen non distended, no LE edema, no focal neuro deficits. A/P: 68 M with HTN, HLD, DM2 who presented to an OSH with chest pain and PARSONS. He was transferred to [facility] where an echo showed EF 45-50% and LHC showed 3VD with reported 70-80% stenosis of the prox-mid LAD, 90% OM1 and SHRIMP TRAWLER of proximal RCA with left to right collaterals. He was transferred for CTS evaluation for CABG. #Multivessel CAD: CT surgery evaluation. Continue aspirin, statin. Can stop heparin as it has been on >48 hours and he has no ongoing chest pain. #HFmrEF: EF appears around 45-50% on personal review of OSH echo without major valve issues. No clinical evidence of volume overload. Increase dose of carvedilol for improved BP control. Holding GDMT given potential CABG. #CKD: creatinine appears around reported baseline of 1.5. #Grief: in the setting of his passing away. Offered pre parole counseling aide, he did not think he needed it. Dispo: pending CABG amber Heck MD [facility] Attending Shared Visit Note This is a shared visit. Please see Advanced Practice Provider's encounter note for additional details. Overnight events/Subjective: Tearful Exam: Physical exam: tearful, Normal rate, regular rhythm, non labored breathing, clear to auscultation, abdomen non distended, no LE edema, no focal neuro deficits. A/P: 68 M with HTN, HLD, DM2 who presented to an OSH with chest pain and PARSONS. He was transferred to [facility] where an echo showed EF 45-50% and LHC showed 3VD with reported 70-80% stenosis of the prox-mid LAD, 90% OM1 and SHRIMP TRAWLER of proximal RCA with left to right collaterals. He was transferred for CTS evaluation for CABG. #Multivessel CAD: CT surgery evaluation. Continue aspirin, statin and heparin. #HFmrEF: EF appears around 45-50% on personal review of OSH echo without major valve issues. No clinical evidence of volume overload. Change metoprolol to carvedilol for improved BP control. Holding GDMT given potential CABG. #CKD: creatinine appears around reported baseline of 1.5. #Grief: in the setting of his passing away. Offered pre parole counseling aide, he did not think he needed it. Dispo: pending CABG amber Heck MD Problems: Principal Problem: Acute on chronic systolic (congestive) heart failure (Multi) Active Problems: Hypertension Stage 3a chronic kidney disease (Multi) Type 2 diabetes mellitus without complication (Multi) CAD, multiple vessel NSTEMI (non-ST elevated myocardial infarction) (Multi) Grief Objective Admit Date: 10/15/2023 Hospital Length of Stay: 2 Home: [facility] [id number] Vitals: 10/17/2023 2:49 PM 10/17/2023 12:50 PM 10/17/2023 8:26 AM 10/17/2023 6:12 AM 10/16/2023 7:34 PM 10/16/2023 11:40 AM 10/16/2023 8:49 AM Vitals Systolic 154 163 154 180 173 157 133 Diastolic 71 80 69 85 79 75 73 Heart Rate 92 87 83 96 92 98 86 Temp 37.1 C (98.8 F) 36.6 C (97.9 F) 37.2 C (99 F) 37 C (98.6 F) 36.2 C (97.2 F) 36.5 C (97.7 F) 36.9 C (98.5 F) Resp 18 18 16 18 18 18 16 Wt Readings from Last 5 Encounters: 10/16/23 113 kg (250 lb 3.6 oz) Intake/Output Summary (Last 24 hours) at 10/17/2023 1548 Last data filed at 10/17/2023 0600 Gross per 24 hour Intake 337.34 ml Output 1000 ml Net -662.66 ml MEDICATIONS Infusions: heparin, Last Rate: 1,800 Units/hr (10/17/23 1251) Scheduled: aspirin, 81 mg, Daily atorvastatin, 80 mg, Nightly [Held by provider] bumetanide, 2 mg, Daily carvedilol, 12.5 mg, BID insulin glargine, 30 Units, Daily insulin lispro, 0-5 Units, TID insulin lispro, 7 Units, TID lidocaine, 1 patch, Daily mupirocin, , BID pantoprazole, 40 mg, Daily before breakfast sennosides-docusate sodium, 2 tablet, BID PRN: acetaminophen, 650 mg, q4h PRN dextrose, 12.5 g, q15 min PRN dextrose, 25 g, q15 min PRN glucagon, 1 mg, q15 min PRN glucagon, 1 mg, q15 min PRN heparin, 2,000-4,000 Units, q4h PRN melatonin, 3 mg, Nightly PRN nitroglycerin, 0.4 mg, q5 min PRN Prior to Admission Meds: Medications Prior to Admission Medication Sig Dispense Refill Last Dose bumetanide (Bumex) 2 mg tablet Take 1 tablet (2 mg) by mouth once daily. diclofenac (Voltaren) 75 mg EC tablet Take 1 tablet (75 mg) by mouth 2 times a day. glipiZIDE (Glucotrol) 10 mg tablet Take 1 tablet (10 mg) by mouth 2 times a day before meals. insulin detemir (Levemir Flextouch) 100 unit/mL (3 mL) pen Inject 12 Units under the skin 2 times a day. insulin glargine (Lantus) 100 unit/mL (3 mL) pen Inject 60 Units under the skin once daily. lisinopril 40 mg tablet Take 1 tablet (40 mg) by mouth once daily. DATA: CMP: Recent Labs 10/16/23184510/16/23155 NA 138 137 K 4.1 4.3 CL 103 102 CO2 24 26 ANIONGAP 15 13 BUN 32* 33* CREATININE 1.52* 1.64* EGFR 49* 45* MG 1.84 -- Recent Labs 10/16/23184510/16/23 015 ALBUMIN 3.1* 3.3* ALT -- 15 AST -- 14 BILITOT -- 0.4 CBC: Recent Labs 10/16/23184510/16/23 0910/16/23 015 WBC 8.2 -- 9.3 HGB 10.5* -- 11.4* HCT 33.4* -- 35.2* PLT 283 276 285 MCV 91 -- 91 COAG: Recent Labs 10/17/23 1159 10/17/23 0639 10/16/23 2357 10/16/23 1835 10/16/23 1413 10/16/23 0910/16/23 0156 INR -- -- -- -- -- -- 1.1 HAUF 0.5 0.2 0.3 0.2 0.1 < > -- < > = values in this interval not displayed. ABO: No results for input(s): ABO in the last 85664 hours. HEME/ENDO: Recent Labs 10/16/23155 FERRITIN 184 IRONSAT 12* TSH 6.30* FREET4 1.20 HGBA1C 6.8* CARDIAC: Recent Labs 08/27/90510/16/23 0156 TROPHS -- 916* BNP 88 -- Recent Labs 10/16/23 0156 CHOL 114 HDL 25.8 TOX:No results for input(s): AMPHETAMINE , BENZO , CANNABINOID , COCAI , FENTANYL , OPIATE , OXYCODONE , PCP in the last 23986 hours. No lab exists for component: BARBSCRUR MICRO: No results for input(s): ESR , CRP , PROCAL in the last 64867 hours. No results found for the last 90 days. FOLLOWUP: No future appointments. CARDIAC SURGERY CONSULT PROGRESS NOTE SUBJECTIVE Italia Allen is a 68 y.o. male with PMH of HTN, HLD, DM2, Morbid obesity, OA and CHF who initially presented to [facility] with two days of chest pain and worsening SOB and PARSONS. At [facility], he was desaturated with 70% O2 sat at RA and his troponin was uptrending. Therefore, he was transferred to [facility] for further workup and management. At [facility], he was treated with IV lasix with significant improvement of his SOB and volume status. He underwent a TTE that was reported to show an EF of 45-50% without significant valvular disease. He also underwent a LHC that showed 3VD with 70-80% stenosis of prox-mid LAD, 90% of OM1 and SHRIMP TRAWLER of prox RCA with collateral filling of the distal RCA from the left system. He was transferred to [facility] for a CABG evaluation. The patient states his just recently passed ~ 1 month ago, and since then he has had these anxiety attacks with chest pain and shortness of breath. The patient on exam is very tearful, anxious, but denies any complaints. Cardiac surgery consulted for a CABG evaluation. Objective BP 163/80 (Patient Position: Lying) Pulse 87 Temp 36.6 C (97.9 F) (Temporal) Resp 18 Ht 1.778 m (5' 10 ) Wt 113 kg (250 lb 3.6 oz) SpO2 91% BMI 35.90 kg/m 0-10 (Numeric) Pain Score: 0 - No pain Vitals: 10/16/23 0051 Weight: 113 kg (250 lb 3.6 oz) Intake/Output Summary (Last 24 hours) at 10/17/2023 1422 Last data filed at 10/17/2023 0600 Gross per 24 hour Intake 370.74 ml Output 1000 ml Net -629.26 ml Medications Scheduled medications aspirin, 81 mg, oral, Daily atorvastatin, 80 mg, oral, Nightly [Held by provider] bumetanide, 2 mg, oral, Daily carvedilol, 12.5 mg, oral, BID insulin glargine, 30 Units, subcutaneous, Daily insulin lispro, 0-5 Units, subcutaneous, TID insulin lispro, 7 Units, subcutaneous, TID lidocaine, 1 patch, transdermal, Daily mupirocin, , Topical, BID pantoprazole, 40 mg, oral, Daily before breakfast sennosides-docusate sodium, 2 tablet, oral, BID Continuous medications heparin, 0-4,000 Units/hr, Last Rate: 1,800 Units/hr (10/17/23 1251) PRN medications PRN medications: acetaminophen OR [DISCONTINUED] acetaminophen OR [DISCONTINUED] acetaminophen, dextrose, dextrose, glucagon, glucagon, heparin, melatonin, nitroglycerin Labs Results for orders placed or performed during the hospital encounter of 10/15/23 (from the past 24 hour(s)) Blood Gas Arterial, COOX Unsolicited Result Value Ref Range POCT pH, Arterial 7.40 7.38 - 7.42 pH POCT pCO2, Arterial 39 38 - 42 mm Hg POCT pO2, Arterial 67 (L) 85 - 95 mm Hg POCT SO2, Arterial 95 94 - 100 % POCT Oxy Hemoglobin, Arterial 92.2 (L) 94.0 - 98.0 % POCT Base Excess, Arterial -0.5 -2.0 - 3.0 mmol/L POCT HCO3 Calculated, Arterial 24.2 22.0 - 26.0 mmol/L POCT Hemoglobin, Arterial 11.3 (L) 13.5 - 17.5 g/dL POCT Carboxyhemoglobin, Arterial 3.1 % POCT Methemoglobin, Arterial 0.0 0.0 - 1.5 % POCT Deoxy Hemoglobin, Arterial 4.8 0.0 - 5.0 % Patient Temperature 37.0 degrees Celsius Pulmonary function testing Result Value Ref Range FVC - Predicted 4.08 FEV1 - Predicted 3.09 FVC - PRE 1.80 FEV1 - Pre 1.62 POCT GLUCOSE Result Value Ref Range POCT Glucose 261 (H) 74 - 99 mg/dL Heparin Assay, UFH Result Value Ref Range Heparin Unfractionated 0.2 See Comment Below for Therapeutic Ranges IU/mL CBC Result Value Ref Range WBC 8.2 4.4 - 11.3 x10*3/uL nRBC 0.0 0.0 - 0.0 /100 WBCs RBC 3.69 (L) 4.50 - 5.90 x10*6/uL Hemoglobin 10.5 (L) 13.5 - 17.5 g/dL Hematocrit 33.4 (L) 41.0 - 52.0 % MCV 91 80 - 100 fL MCH 28.5 26.0 - 34.0 pg MCHC 31.4 (L) 32.0 - 36.0 g/dL RDW 14.4 11.5 - 14.5 % Platelets 283 150 - 450 x10*3/uL Renal function panel Result Value Ref Range Glucose 229 (H) 74 - 99 mg/dL Sodium 138 136 - 145 mmol/L Potassium 4.1 3.5 - 5.3 mmol/L Chloride 103 98 - 107 mmol/L Bicarbonate 24 21 - 32 mmol/L Anion Gap 15 10 - 20 mmol/L Urea Nitrogen 32 (H) 6 - 23 mg/dL Creatinine 1.52 (H) 0.50 - 1.30 mg/dL eGFR 49 (L) >60 mL/min/1.73m*2 Calcium 8.2 (L) 8.6 - 10.6 mg/dL Phosphorus 3.1 2.5 - 4.9 mg/dL Albumin 3.1 (L) 3.4 - 5.0 g/dL Magnesium Result Value Ref Range Magnesium 1.84 1.60 - 2.40 mg/dL POCT GLUCOSE Result Value Ref Range POCT Glucose 151 (H) 74 - 99 mg/dL Heparin Assay, UFH Result Value Ref Range Heparin Unfractionated 0.3 See Comment Below for Therapeutic Ranges IU/mL POCT GLUCOSE Result Value Ref Range POCT Glucose 176 (H) 74 - 99 mg/dL Heparin Assay, UFH Result Value Ref Range Heparin Unfractionated 0.2 See Comment Below for Therapeutic Ranges IU/mL Vascular US Lower Extremity Vein Mapping Bilateral Result Value Ref Range BSA 2.37 m2 Vascular US Ankle Brachial Index (LUCIO) Without Exercise Result Value Ref Range BSA 2.37 m2 POCT GLUCOSE Result Value Ref Range POCT Glucose 256 (H) 74 - 99 mg/dL Heparin Assay, UFH Result Value Ref Range Heparin Unfractionated 0.5 See Comment Below for Therapeutic Ranges IU/mL Vascular US Carotid Artery Duplex Bilateral Result Value Ref Range BSA 2.37 m2 POCT GLUCOSE Result Value Ref Range POCT Glucose 189 (H) 74 - 99 mg/dL ASSESSMENT & PLAN Italia Allen is a 68 y.o. male with PMH of HTN, HLD, DM2, Morbid obesity, OA and CHF who initially presented to [facility] with two days of chest pain and worsening SOB and PARSONS. At [facility], he was desaturated with 70% O2 sat at RA and his troponin was uptrending. Therefore, he was transferred to [facility] for further workup and management. At [facility], he was treated with IV lasix with significant improvement of his SOB and volume status. He underwent a TTE that was reported to show an EF of 45-50% without significant valvular disease. He also underwent a LHC that showed 3VD with 70-80% stenosis of prox-mid LAD, 90% of OM1 and SHRIMP TRAWLER of prox RCA with collateral filling of the distal RCA from the left system. He was transferred to [facility] for a CABG evaluation. The patient states his just recently passed ~ 1 month ago, and since then he has had these anxiety attacks with chest pain and shortness of breath. The patient on exam is very tearful, anxious, but denies any complaints. Cardiac surgery consulted for a CABG evaluation. RECOMMENDATIONS/PLAN Dr. Ruiz aware of patient, currently reviewing case and available imaging. Further plan pending surgeon review. LHC and TTE images in [employer] Continue medical optimization per primary team Preop risk stratification studies/labs ordered in EMR by our team --- US Carotids - significant for R ICA total occlusion --- Vein Mapping/ LE US LUCIO --- PFTs (spirometry and room air ABG) - FEV1 52% --- 2 view CXR --- MRSA, UA/Culture, LFTs, HgbA1c, TSH/T4, Lipid panel --- Dental evaluation not indicated for isolated CABG surgeries When/if goes to surgery: - Continue ASA, high-intensity statin, and BB (or document contraindications for use) - No ACEi/ARBs in the pre-op period (at least 48 hours) - Hold any SGLT2 inhibitors (Farxiga, Jardiance, etc.) for at least 3 days prior to cardiac surgery to prevent euglycemic DKA - No antiplatelets other than ASA, no anticoagulants other than Heparin - NPO after midnight, blood on hold/T&S, and preop scrubs only to be ordered once OR date is established Will continue to follow along. Thank you for the consultation. Patient educated and all questions answered. Please page the cardiac surgery consult pager [phone] with any questions or changes in patient condition. Ru Elena PA-C Cardiac Surgery Consult [facility] Cardiac Surgery Consult Pager [phone] 10/17/2023 2:22 PM 10/17/23 Transitional Care Coordination Progress Note: Patient discussed during interdisciplinary rounds. Team members present: SWAPNIL SERRANO MD Plan per Medical/Surgical team: CABG work-up/ evaluation Discharge disposition: TBD Status-Inpatient Payer- MEDICARE Potential Barriers: None ADOD: 10-20-2023 Will continue to monitor for all discharging needs Pablo Berman RN TCC [phone] Physical Therapy Physical Therapy Evaluation Patient Name: Italia Allen Today's Date: 10/17/2023 Time Calculation Start Time: 1231 Stop Time: 1245 Time Calculation (min): 14 min Assessment/Plan PT Assessment PT Assessment Results: (No current impairments.) Rehab Prognosis: (No current rehab needs.) Barriers to Discharge: none Evaluation/Treatment Tolerance: Patient tolerated treatment well End of Session Communication: Bedside nurse Assessment Comment: 68 y.o. M admitted for work up of CP/SOB though otherwise currently demonstrating stready gait and independent function. Pt currently without acute PT needs at this time. End of Session Patient Position: Bed, 3 rail up, Alarm off, not on at start of session IP OR SWING BED PT PLAN Inpatient or Swing Bed: Inpatient PT Plan Treatment/Interventions: (No planned treatment/interventions.) PT Plan: PT Eval only PT Eval Only Reason: No acute PT needs identified PT Frequency: PT eval only PT Discharge 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s: No PT needed after discharge, No further acute PT Equipment Recommended upon Discharge: (none) PT Recommended Transfer Status: Independent PT - OK to Discharge: Yes Subjective General Visit Information: General Reason for Referral: CP, SOB/PARSONS Past Medical History Relevant to Rehab: 68 y.o. male with PMH of HTN, HLD, DM2, Morbid obesity, OA and CHF who initially presented to [facility] with two days of chest pain and worsening SOB and PARSONS. Admitted for further work up. Family/Caregiver Present: No Prior to Session Communication: Bedside nurse Patient Position Received: Bed, 3 rail up, Alarm off, not on at start of session Preferred Learning Style: verbal, auditory General Comment: Pt resting in bed upon entry. Pleasant and cooperative though reporting mourning 's from 1 month ago. Reports son is working on returning home to stay with patient. Home Living: Home Living Type of Home: House Lives With: Alone ( recently passed. Son planning on returning home to stay with patient.) Home Adaptive Equipment: Walker rolling or standard, Cane Home Layout: Stairs to alternate level with rails Alternate Level Stairs-Number of Steps: 12 Home Access: No concerns Prior Level of Function: Prior Function Per Pt/Caregiver Report Level of [place]: Independent with ADLs and functional transfers ADL Assistance: Independent Homemaking Assistance: Independent Ambulatory Assistance: Independent Precautions: Precautions Medical Precautions: Fall precautions Objective Pain: Pain Assessment Pain Assessment: 0-10 0-10 (Numeric) Pain Score: (Not objecitvely measured though noting chronic h/o low back.) Pain Type: Chronic pain Cognition: Cognition Overall Cognitive Status: Within Functional Limits Orientation Level: Oriented X4 Attention: Within Functional Limits Safety/Judgement: Within Functional Limits Insight: Within function limits Impulsive: Within functional limits General Assessments: Activity Tolerance Endurance: Tolerates 10 - 20 min exercise with multiple rests Activity Tolerance Comments: Not impeding function. Sensation Light Touch: No apparent deficits Strength Strength Comments: Grossly WFL. Strength Strength Comments: Grossly WFL. Coordination Movements are Fluid and Coordinated: Yes Postural Control Postural Control: Within Functional Limits Static Sitting Balance Static Sitting-Balance Support: No upper extremity supported Static Sitting-Level of Assistance: Independent Static Standing Balance Static Standing-Balance Support: No upper extremity supported Static Standing-Level of Assistance: Independent Functional Assessments: Bed Mobility Bed Mobility: Yes Bed Mobility 1 Bed Mobility 1: Supine to sitting, Sitting to supine Level of Assistance 1: Independent Transfers Transfer: Yes Transfer 1 Transfer From 1: Sit to, Stand to Transfer to 1: Stand, Sit Transfer Device 1: (No AD) Transfer Level of Assistance 1: Independent Ambulation/Gait Training Ambulation/Gait Training Performed: Yes Ambulation/Gait Training 1 Surface 1: Level tile Device 1: No device Assistance 1: Independent, Distant supervision Quality of Gait 1: (Steady gait. No acute LOB. Pt w generalized complaints of back soreness. Not impeding function. Pt reports feeling at/near baseline function.) Comments/Distance (ft) 1: 200ft Outcome Measures: [facility] Basic Mobility Turning from your back to your side while in a flat bed without using bedrails: None Moving from lying on your back to sitting on the side of a flat bed without using bedrails: None Moving to and from bed to chair (including a wheelchair): None Standing up from a chair using your arms (e.g. wheelchair or bedside chair): None To walk in hospital room: None Climbing 3-5 steps with railing: None Basic Mobility - Total Score: 24 Education Documentation Precautions, taught by Dmitry Gomez PT at 10/17/2023 1:15 PM. Learner: Patient Readiness: Acceptance Method: Explanation Response: Verbalizes Understanding Comment: No acute PT needs. Up ad selin. Mobility Training, taught by Dmitry Gomez PT at 10/17/2023 1:15 PM. Learner: Patient Readiness: Acceptance Method: Explanation Response: Verbalizes Understanding Comment: No acute PT needs. Up ad selin. Education Comments No comments found. Subjective Data: Italia was seen resting in bed this morning. He denies chest pain or shortness of breath. He has been getting out of bed to walk to the restroom and back to his bed or the chair without any issues. He didn't sleep well because the bed is uncomfortable and is hurting his back. He has been taking Tylenol with minimal relief. A lidocaine patch was applied to his back but he states that it fell off before it could help with his back pain. His blood pressures have been higher over the last 24 hours ranging from 154-180/69-85. He is struggling with the grief of losing his last month. He is not interested in talking to someone, utilizing music or pet therapy or visiting with the tire rebuilder at this time. - CABG workup with cardiac surgery is still in process, PFTs completed yesterday. Having vascular ultrasounds of lower extremities and carotids today - continue heparin gtt - remains near euvolemic on exam, continue holding home bumex - Change metoprolol tartrate 25 mg BID to carvedilol 12.5 mg BID for better BP control. Uptitrate as tolerated Overnight Events: No acute events overnight Objective Data: Last Recorded Vitals: Vitals: 10/16/23 1140 10/16/23 1934 10/17/23 0612 10/17/23 0826 BP: 157/75 173/79 180/85 154/69 BP Location: Left arm Left arm Left arm Patient Position: Lying Lying Pulse: 98 92 96 83 Resp: 18 18 18 16 Temp: 36.5 C (97.7 F) 36.2 C (97.2 F) 37 C (98.6 F) 37.2 C (99 F) TempSrc: Temporal Temporal Temporal SpO2: 92% 94% 92% 93% Weight: Height: Last Labs: CBC - 10/16/2023: 6:46 PM 8.2 10.5 283 33.4 CMP - 10/16/2023: 6:46 PM 8.2 5.6 14 --- 0.4 3.1 3.1 15 58 PTT - 10/16/2023: 1:56 AM 1.1 12.5 30 TROPHS Date/Time Value Ref Range Status 10/16/2023 01:56 AM 916 0 - 53 ng/L Final BNP Date/Time Value Ref Range Status 10/16/2023 09:06 AM 88 0 - 99 pg/mL Final HGBA1C Date/Time Value Ref Range Status 10/16/2023 01:56 AM 6.8 see below % Final Last I/O: I/O last 3 completed shifts: In: 1310.1 (11.5 mL/kg) [P.O.:1080; I.V.:230.1 (2 mL/kg)] Out: 2200 (19.4 mL/kg) [Urine:2200 (0.5 mL/kg/hr)] Weight: 113.5 kg Past Cardiology Tests (Last 3 Years): EKG: ECG 12 lead 10/16/2023 (Preliminary) Normal sinus rhythm Prolonged QT Abnormal ECG Echo: LVEF 45-50% with no significant valvular disease. No formal report, images available in [employer]. Ejection Fractions: LVEF 45-50% Cath: 10/15/2023 - images available in [employer] IMPRESSION 1. Three-vessel coronary artery disease as evident by diffuse severe disease inthe proximal to mid LAD in the range of 70 to 80%, 90% marginal 1 and total occlusion of the right coronary artery with collateral filling the distal right coronary artery demonstrating vessel appears to be a good target for revascularization 2. Mild LV systolic dysfunction with LVEF around 45-50% 4. No significant aortic stenosis or mitral regurgitation 4. Elevated left ventricular end-diastolic pressure Inpatient Medications: Scheduled medications Medication Dose Route Frequency aspirin 81 mg oral Daily atorvastatin 80 mg oral Nightly [Held by provider] bumetanide 2 mg oral Daily insulin glargine 30 Units subcutaneous Daily insulin lispro 0-5 Units subcutaneous TID insulin lispro 7 Units subcutaneous TID lidocaine 1 patch transdermal Daily metoprolol tartrate 25 mg oral BID mupirocin Topical BID pantoprazole 40 mg oral Daily before breakfast sennosides-docusate sodium 2 tablet oral BID PRN medications Medication acetaminophen dextrose dextrose glucagon glucagon heparin melatonin nitroglycerin Continuous Medications Medication Dose Last Rate heparin 0-4,000 Units/hr 1,800 Units/hr (10/17/23 0722) Physical Exam: Physical Exam Vitals and nursing note reviewed. Constitutional: General: He is not in acute distress. Appearance: Normal appearance. He is not ill-appearing or diaphoretic. HENT: Head: Normocephalic and atraumatic. Nose: No congestion or rhinorrhea. Eyes: Extraocular Movements: Extraocular movements intact. Conjunctiva/sclera: Conjunctivae normal. Cardiovascular: Rate and Rhythm: Normal rate and regular rhythm. Heart sounds: Normal heart sounds. No murmur heard. No friction rub. No gallop. Pulmonary: Effort: Pulmonary effort is normal. No respiratory distress. Breath sounds: Normal breath sounds. No wheezing, rhonchi or rales. Abdominal: General: There is no distension. Palpations: Abdomen is soft. Tenderness: There is no abdominal tenderness. Musculoskeletal: Comments: 1+ pitting edema to the bilateral lower extremities Skin: General: Skin is warm and dry. Findings: No bruising or erythema. Neurological: General: No focal deficit present. Mental Status: He is alert. Psychiatric: Comments: Tearful on exam when talking about recently losing his last month. Assessment/Plan Italia Allen is a 68 y.o. male with PMH of HTN, HLD, DM2, Morbid obesity, OA and CHF, presented with acute on chronic decompensated heart failure and NSTEMI with 3VD on [facility] and mild LV systolic dysfunction. Transferred from OSH for CABG evaluation. NSTEMI Coronary artery disease - presented to OSH with chest pain and shortness of breath - OSH Troponin 80->543->982->1682 - troponin upon transfer: 916 - [facility] 10/14: Three-vessel coronary artery disease as evident by diffuse severe disease inthe proximal to mid LAD in the range of 70 to 80%, 90% marginal 1 and total occlusion of the right coronary artery with collateral filling the distal right coronary artery demonstrating vessel appears to be a good target for revascularization. Images have been transferred and are viewable through [employer]. - Continue Heparin gtt, ASA, and atorvastatin - CTS consulted for CABG evaluation, work-up initiated Acute on chronic systolic and diastolic heart failure HFmrEF - 45-50% - etiology: likely ICM - Reports a 20 year history of CHF with unknown EF - TTE done at [facility] showed an EF of 45-50% with no significant valvular disease. No formal report available. Images have been transferred and are viewable through [employer]. - BNP on admit: 88 - s/p IV diuresis at OSH with IV lasix pushes - Near euvolemic on exam. Continue holding home dose of Bumex 2mg daily - Admit Weight: 113 kg - will trend daily weight - 2vu CXR on admit: not grossly fluid overloaded, pending formal read - change metoprolol tartrate 25 mg BID to carvedilol 12.5 mg BID for better BP control. Uptitrate as tolerated - will defer SGLTII, SHANNON/ARB/ARNI due to ongoing CABG eval - Strict Is & Os, Daily Weights DM2 - Hgb A1C on 10/15: 6.8% - POCT glucose checks - Insulin sliding scale #1 - home lantus does: 60 units daily--> reduced to 30 units while inpatient - continue pre- meal insulin 7 units - Hold SGLT-2 inhibitors for CABG evaluation HTN - last 24 hour BP range 154-180/69-85 - On Lisinopril 40mg daily - held for CABG evaluation - change metoprolol tartrate 25 mg BID to carvedilol 12.5 mg BID CKD (unknown stage) - Cr 1.52 (1.68-> 1.64) - No previous information on kidney function - last Cr in 2016 was normal - Behaves like CKD with stable value at OSH - Renal US at [facility] on 10/14 - no acute findings - Avoid nephrotoxins and hypotension - diuretic held as above DVT prophylaxis: heparin gtt Dispo: pending CABG work-up/ evaluation Patient seen and discussed with Dr. Heck Code Status: Full Code I spent 45 minutes in the professional and overall care of this patient. Catia Patton PA-C Associated attestation - Mario Heck MD - 10/17/2023 3:48 PM EDT This is a shared visit. I have reviewed the Advanced Practice Provider's encounter note, approve the Advanced Practice Provider's documentation, and provide the following additional information from my personal encounter. Please see my separate note from 10/16. Mario Heck MD Subjective Data: Italia was seen this morning and was resting in bed. He denies chest pain or shortness of breath. He is having some back pain from lying in the hospital bed and also complains of a headache. Became tearful on exam, describing that he recently lost his 1 month ago. Explained to Mr. Allen that we will involve the cardiac surgery team for CABG evaluation. His son is coming in today, will discuss further with patient and his family. - cardiac surgery consulted, CABG work-up started - continue heparin gtt - troponin 916 upon transfer (last troponin ~1600 at OSH) - home bumex held, near euvolemic on exam (lying flat, no dyspnea) Overnight Events: Admitted to [facility] Objective Data: Last Recorded Vitals: Vitals: 10/16/23 0046 10/16/23 0051 10/16/23 0412 10/16/23 0849 BP: 122/72 133/73 BP Location: Left arm Patient Position: Lying Pulse: 91 86 Resp: 18 16 Temp: 37.1 C (98.8 F) 36.9 C (98.5 F) TempSrc: Temporal SpO2: 93% 93% Weight: 113 kg (250 lb 3.6 oz) 113 kg (250 lb 3.6 oz) Height: 1.778 m (5' 10 ) Last Labs: CBC - 10/16/2023: 1:56 AM 9.3 11.4 276 35.2 CMP - 10/16/2023: 1:56 AM 8.3 5.6 14 --- 0.4 _ 3.3 15 58 PTT - 10/16/2023: 1:56 AM 1.1 12.5 30 HGBA1C Date/Time Value Ref Range Status 10/16/2023 01:56 AM 6.8 see below % Final Last I/O: I/O last 3 completed shifts: In: 284.5 (2.5 mL/kg) [P.O.:240; I.V.:44.5 (0.4 mL/kg)] Out: 200 (1.8 mL/kg) [Urine:200 (0 mL/kg/hr)] Weight: 113.5 kg Past Cardiology Tests (Last 3 Years): EKG: ECG 12 lead 10/16/2023 (Preliminary) Normal sinus rhythm Prolonged QT Abnormal ECG Echo: LVEF 45-50% with no significant valvular disease. No formal report, images available in [employer]. Ejection Fractions: LVEF 45-50% Cath: 10/15/2023 - images available in [employer] IMPRESSION 1. Three-vessel coronary artery disease as evident by diffuse severe disease inthe proximal to mid LAD in the range of 70 to 80%, 90% marginal 1 and total occlusion of the right coronary artery with collateral filling the distal right coronary artery demonstrating vessel appears to be a good target for revascularization 2. Mild LV systolic dysfunction with LVEF around 45-50% 4. No significant aortic stenosis or mitral regurgitation 4. Elevated left ventricular end-diastolic pressure Inpatient Medications: Scheduled medications Medication Dose Route Frequency aspirin 81 mg oral Daily atorvastatin 80 mg oral Nightly [Held by provider] bumetanide 2 mg oral Daily insulin glargine 30 Units subcutaneous Daily insulin lispro 0-5 Units subcutaneous TID insulin lispro 7 Units subcutaneous TID metoprolol tartrate 25 mg oral BID mupirocin Topical BID pantoprazole 40 mg oral Daily before breakfast sennosides-docusate sodium 2 tablet oral BID PRN medications Medication acetaminophen Or acetaminophen Or acetaminophen dextrose dextrose glucagon glucagon heparin melatonin nitroglycerin Continuous Medications Medication Dose Last Rate heparin 0-4,000 Units/hr 1,200 Units/hr (10/16/23 0935) Physical Exam Vitals and nursing note reviewed. Constitutional: General: He is not in acute distress. Appearance: He is not ill-appearing, toxic-appearing or diaphoretic. HENT: Head: Normocephalic and atraumatic. Eyes: Extraocular Movements: Extraocular movements intact. Conjunctiva/sclera: Conjunctivae normal. Cardiovascular: Rate and Rhythm: Normal rate and regular rhythm. Heart sounds: No murmur heard. No friction rub. No gallop. Pulmonary: Effort: Pulmonary effort is normal. No respiratory distress. Breath sounds: Normal breath sounds. No wheezing, rhonchi or rales. Musculoskeletal: General: No tenderness or deformity. Comments: 1+ pitting edema to the bilateral lower extremities Skin: General: Skin is warm and dry. Neurological: General: No focal deficit present. Mental Status: He is alert. Assessment/Plan Italia Allen is a 68 y.o. male with PMH of HTN, HLD, DM2, Morbid obesity, OA and CHF, presented with acute on chronic decompensated heart failure and NSTEMI with 3VD on [facility] and mild LV systolic dysfunction. Transferred from OSH for CABG evaluation. NSTEMI Coronary artery disease - presented to OSH with chest pain and shortness of breath - OSH Troponin 80->543->982->1682 - troponin upon transfer: 916 - [facility] 10/14: Three-vessel coronary artery disease as evident by diffuse severe disease inthe proximal to mid LAD in the range of 70 to 80%, 90% marginal 1 and total occlusion of the right coronary artery with collateral filling the distal right coronary artery demonstrating vessel appears to be a good target for revascularization. Images have been transferred and are viewable through [employer]. 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 No formal report available. Images have been transferred and are viewable through [employer]. - BNP on admit: 88 - s/p IV diuresis at OSH with IV lasix pushes - Near euvolemic on exam. Holding home dose of Bumex 2mg daily given elevated Cr - Admit Weight: 113 kg - will trend daily weight - 2vu CXR on admit: not grossly fluid overloaded, pending formal read - continue metoprolol tartrate 25 mg BID - will defer SGLTII, SHANNON/ARB/ARNI due to ongoing CABG eval - Strict Is & Os, Daily Weights DM2 - Hgb A1C on 10/15: 6.8% - POCT glucose checks - Insulin sliding scale #1 - home lantus does: 60 units daily--> reduced to 30 units while inpatient - continue pre- meal insulin 7 units - Hold SGLT-2 inhibitors for CABG evaluation HTN - last 24 hour BP range 114-133/63-73 - On Lisinopril 40mg daily - held for CABG evaluation - continue metoprolol tartrate 25 mg BID CKD (unknown stage) - Cr 1.64 (1.68) - No previous information on kidney function - last Cr in 2016 was normal - Behaves like CKD with stable value at OSH - Renal US at [facility] on 10/14 - no acute findings - Avoid nephrotoxins and hypotension - diuretic held as above DVT prophylaxis: heparin gtt Dispo: pending CABG work-up/ evaluation Patient seen and discussed with Dr. Heck Code Status: Full Code Catia Patton PA-C 10/16/23 0824 Discharge Planning Living Arrangements Alone Support Systems [employer]astafari/yvette community Assistance Needed none Type of Residence Private residence Number of Stairs to Enter Residence 4 Number of Stairs Within Residence 12 Do you have animals or pets at home? No Who is requesting discharge planning? Provider Home or Post Acute Services None Expected Discharge Disposition Home Does the patient need discharge transport arranged? No Financial Resource Strain How hard is it for you to pay for the very basics like food, housing, medical care, and heating? Not very Housing Stability In the past 12 months, how many times have you moved where you were living? 1 At any time in the past 12 months, were you homeless or living in a prison (including now)? N Transportation Needs In the past 12 months, has lack of transportation kept you from medical appointments or from getting medications? no In the past 12 months, has lack of transportation kept you from meetings, work, or from getting things needed for daily living? No Patient Choice Provider Choice list and [facility] website (https://medicare.gov/care-compar e#search) for post-acute Quality and Resource Measure Data were provided and reviewed with: Patient Patient / Family choosing to utilize agency / facility established prior to hospitalization No Transitional Factory Representative Note: 10/16/2023@8:00 Met with patient to introduce myself, role and discuss discharge planning s/p admission. Patient lives with alone Independent in all ADL's. Does not require assist devices for ambulation. Demographics and contact information confirmed. Will continue to monitor patient for all home going needs. Pablo Berman RN [facility] [phone] Previous Home Care None DME None Falls: none O2/Cpap-None Dialysis None Transportation at discharge- Has transportation Pharmacy Admission Order Reconciliation Review Italia Allen is a 68 y.o. male admitted for Acute on chronic systolic (congestive) heart failure (Multi). Pharmacy reviewed the patient's unreconciled admission medications. Prior to admission medications that were reviewed and acted on by the pharmacist include: lantus These medications have been reconciled. Any other unreconcilied medications have been addressed and will be ordered or held by the patient's medical team. Medications addressed by the pharmacist may be added or changed by the patient's medical team at any time. Rosemarie Miranda PharmD Transitions of Care Pharmacist [facility] Please reach out via Secure Chat for questions documented in this encounter [facility] Work Phone: 10-24-2023 Plan of care note Pt remained HDS and free of injury this shift. Pt to be discharged home. Pt awaiting medications from [facility] pharmacy. Pt provided with discharge instructions, pt refused to review discharge instructions, medications and follow-up appointments. Pt awaiting transportation home. Pt has no questions or concerns at this time. Pt had no bleeding from R radial incision site. Problem: ACS/CP/NSTEMI/STEMI Goal: Chest pain managed (free from pain or at acceptable level) Outcome: Progressing Goal: Lab values return to normal range Outcome: Progressing Goal: Promote self management Outcome: Progressing Goal: Serial ECG will return to baseline Outcome: Progressing Goal: Verbalize understanding of procedures/devices Outcome: Progressing Goal: Wean vasopressors/achieve hemodynamic stability Outcome: Progressing Problem: Arrythmia/Dysrhythmia Goal: Lab values return to normal range Outcome: Progressing Goal: No evidence of post procedure complications Outcome: Progressing Goal: Promote self management Outcome: Progressing Goal: Serial ECG will return to baseline Outcome: Progressing Goal: Verbalize understanding of procedures/devices Outcome: Progressing Goal: Vital signs return to baseline Outcome: Progressing Goal: Care and maintenance of device (specify) Outcome: Progressing Problem: Cardiac catheterization Goal: Free from dysrhythmias Outcome: Progressing Goal: Free from pain Outcome: Progressing Goal: No evidence of post procedure complications Outcome: Progressing Goal: Promote self management Outcome: Progressing Goal: Verbalize understanding of procedure Outcome: Progressing Goal: Care and maintenance of device (specify) Outcome: Progressing Problem: Hypertensive Emergency/Crisis Goal: Blood pressure gradually reduced to goal range Outcome: Progressing Goal: Free from signs of organ damage Outcome: Progressing Goal: Lab values return to normal range Outcome: Progressing Goal: Promote self management Outcome: Progressing Problem: Pain - Adult Goal: Verbalizes/displays adequate comfort level or baseline comfort level Outcome: Progressing Problem: Safety - Adult Goal: Free from fall injury Outcome: Progressing Problem: Discharge Planning Goal: Discharge to home or other facility with appropriate resources Outcome: Progressing Problem: Chronic Conditions and Co-morbidities Goal: Patient's chronic conditions and co-morbidity symptoms are monitored and maintained or improved Outcome: Progressing Problem: Fall/Injury Goal: Not fall by end of shift Outcome: Progressing Goal: Be free from injury by end of the shift Outcome: Progressing Goal: Verbalize understanding of personal risk factors for fall in the hospital Outcome: Progressing Goal: Verbalize understanding of risk factor reduction measures to prevent injury from fall in the home Outcome: Progressing Goal: Pace activities to prevent fatigue by end of the shift Outcome: Progressing [facility] 10-24-2023 Miscellaneous Notes Pt remained HDS and free of injury this shift. Pt to be discharged home. Pt awaiting medications from [facility] pharmacy. Pt provided with discharge instructions, pt refused to review discharge instructions, medications and follow-up appointments. Pt awaiting transportation home. Pt has no questions or concerns at this time. Pt had no bleeding from R radial incision site. Problem: ACS/CP/NSTEMI/STEMI Goal: Chest pain managed (free from pain or at acceptable level) Outcome: Progressing Goal: Lab values return to normal range Outcome: Progressing Goal: Promote self management Outcome: Progressing Goal: Serial ECG will return to baseline Outcome: Progressing Goal: Verbalize understanding of procedures/devices Outcome: Progressing Goal: Wean vasopressors/achieve hemodynamic stability Outcome: Progressing Problem: Arrythmia/Dysrhythmia Goal: Lab values return to normal range Outcome: Progressing Goal: No evidence of post procedure complications Outcome: Progressing Goal: Promote self management Outcome: Progressing Goal: Serial ECG will return to baseline Outcome: Progressing Goal: Verbalize understanding of procedures/devices Outcome: Progressing Goal: Vital signs return to baseline Outcome: Progressing Goal: Care and maintenance of device (specify) Outcome: Progressing Problem: Cardiac catheterization Goal: Free from dysrhythmias Outcome: Progressing Goal: Free from pain Outcome: Progressing Goal: No evidence of post procedure complications Outcome: Progressing Goal: Promote self management Outcome: Progressing Goal: Verbalize understanding of procedure Outcome: Progressing Goal: Care and maintenance of device (specify) Outcome: Progressing Problem: Hypertensive Emergency/Crisis Goal: Blood pressure gradually reduced to goal range Outcome: Progressing Goal: Free from signs of organ damage Outcome: Progressing Goal: Lab values return to normal range Outcome: Progressing Goal: Promote self management Outcome: Progressing Problem: Pain - Adult Goal: Verbalizes/displays adequate comfort level or baseline comfort level Outcome: Progressing Problem: Safety - Adult Goal: Free from fall injury Outcome: Progressing Problem: Discharge Planning Goal: Discharge to home or other facility with appropriate resources Outcome: Progressing Problem: Chronic Conditions and Co-morbidities Goal: Patient's chronic conditions and co-morbidity symptoms are monitored and maintained or improved Outcome: Progressing Problem: Fall/Injury Goal: Not fall by end of shift Outcome: Progressing Goal: Be free from injury by end of the shift Outcome: Progressing Goal: Verbalize understanding of personal risk factors for fall in the hospital Outcome: Progressing Goal: Verbalize understanding of risk factor reduction measures to prevent injury from fall in the home Outcome: Progressing Goal: Pace activities to prevent fatigue by end of the shift Outcome: Progressing The patient's goals for the shift include The clinical goals for the shift include safety Over the shift, the patient did make progress toward the following goals. Problem: Pain - Adult Goal: Verbalizes/displays adequate comfort level or baseline comfort level Outcome: Progressing Flowsheets (Taken 10/23/20232150) Verbalizes/displays adequate comfort level or baseline comfort level: Encourage patient to monitor pain and request assistance Assess pain using appropriate pain scale Problem: Safety - Adult Goal: Free from fall injury Outcome: Progressing Flowsheets (Taken 10/23/20232150) Free from fall injury: Based on caregiver fall risk screen, instruct family/caregiver to ask for assistance with transferring if caregiver noted to have fall risk factors Instruct family/caregiver on patient safety Pt remained HDS and free of injury this shift. Pt had PCI with 2 stents placed to LAD. Pt currently has TR band on R radial incision - air to start being removed at 1915. Pt is potential discharge tomorrow. Problem: ACS/CP/NSTEMI/STEMI Goal: Chest pain managed (free from pain or at acceptable level) Outcome: Progressing Goal: Lab values return to normal range Outcome: Progressing Goal: Promote self management Outcome: Progressing Goal: Serial ECG will return to baseline Outcome: Progressing Goal: Verbalize understanding of procedures/devices Outcome: Progressing Goal: Wean vasopressors/achieve hemodynamic stability Outcome: Progressing Problem: Arrythmia/Dysrhythmia Goal: Lab values return to normal range Outcome: Progressing Goal: No evidence of post procedure complications Outcome: Progressing Goal: Promote self management Outcome: Progressing Goal: Serial ECG will return to baseline Outcome: Progressing Goal: Verbalize understanding of procedures/devices Outcome: Progressing Goal: Vital signs return to baseline Outcome: Progressing Goal: Care and maintenance of device (specify) Outcome: Progressing Problem: Cardiac catheterization Goal: Free from dysrhythmias Outcome: Progressing Goal: Free from pain Outcome: Progressing Goal: No evidence of post procedure complications Outcome: Progressing Goal: Promote self management Outcome: Progressing Goal: Verbalize understanding of procedure Outcome: Progressing Goal: Care and maintenance of device (specify) Outcome: Progressing Problem: Hypertensive Emergency/Crisis Goal: Blood pressure gradually reduced to goal range Outcome: Progressing Goal: Free from signs of organ damage Outcome: Progressing Goal: Lab values return to normal range Outcome: Progressing Goal: Promote self management Outcome: Progressing Problem: Pain - Adult Goal: Verbalizes/displays adequate comfort level or baseline comfort level Outcome: Progressing Problem: Safety - Adult Goal: Free from fall injury Outcome: Progressing Problem: Discharge Planning Goal: Discharge to home or other facility with appropriate resources Outcome: Progressing Problem: Chronic Conditions and Co-morbidities Goal: Patient's chronic conditions and co-morbidity symptoms are monitored and maintained or improved Outcome: Progressing Problem: Fall/Injury Goal: Not fall by end of shift Outcome: Progressing Goal: Be free from injury by end of the shift Outcome: Progressing Goal: Verbalize understanding of personal risk factors for fall in the hospital Outcome: Progressing Goal: Verbalize understanding of risk factor reduction measures to prevent injury from fall in the home Outcome: Progressing Goal: Pace activities to prevent fatigue by end of the shift Outcome: Progressing Physician Transition of Care Summary Invasive Cardiovascular Lab Procedure Date: 10/23/2023 Attending: * Sahil Wiley - Primary Resident/Fellow/Other Felt Tipping Machine Tender: Blaise Michelle Surgeons and Role: * No surgeons found with a matching role * Indications: Pre-op Diagnosis * CAD, multiple vessel [I25.10] Post-procedure diagnosis: Post-op Diagnosis * CAD, multiple vessel [I25.10] Procedure(s): * PCI LISY Stent- Coronary Procedure Findings: Elective IVUS guided PCI to Lcx and LAD Orbital atherectomy and scoring balloon used to prepare the LAD lesion Description of the Procedure: EBU 3.5 guide catheter Johnathon blue and run through coronary wires used TR band - 13mmHg Complications: Nil Stents/Implants: Implants Stent Stent, Scott [place] Lisy, 3.50 X 15rx - [id number] - Implanted Inventory item: STENT, SCOTT FRONTIER LISY, 3.50 X 15RX Model/Cat number: [id number] Accounts Clerk: [employer] Lot number: [id number] Device identifier: [id number] As of 10/23/2023 Status: Implanted Stent, Synergy Xd, Mr Us, 3.00 X 48mm - [id number] - Implanted Inventory item: STENT, SYNERGY XD, MR US, 3.00 X 48MM Model/Cat number: [id number] Accounts Clerk: [employer] Lot number: [id number] Device identifier: [id number] As of 10/23/2023 Status: Implanted Anticoagulation/Antiplatelet Plan: Estimated Blood Loss: 5 mL Anesthesia: Moderate Sedation Anesthesia Staff: No anesthesia staff entered. Any Specimen(s) Removed: No specimens collected during this procedure. Disposition: Back to [facility] tomorrow Clinic follow up in 2-3 weeks Consideration of staged PCI to SHRIMP TRAWLER of the right DAPT for 12 months (prasugrel and aspirin) Electronically signed by: Abdoulaye Welsh MD, 10/23/2023 5:08 PM Sedation Plan ASA 3 Mallampati class: I. Risks, benefits, and alternatives discussed with patient. Sedation Plan ASA 3 Mallampati class: II. Risks, benefits, and alternatives discussed with patient. The patient's goals for the shift include The clinical goals for the shift include pt will remain HDS and free from falls Over the shift, the patient remained HDS and free from falls. Problem: ACS/CP/NSTEMI/STEMI Goal: Chest pain managed (free from pain or at acceptable level) Outcome: Progressing Goal: Lab values return to normal range Outcome: Progressing Goal: Promote self management Outcome: Progressing Goal: Serial ECG will return to baseline Outcome: Progressing Goal: Verbalize understanding of procedures/devices Outcome: Progressing Goal: Wean vasopressors/achieve hemodynamic stability Outcome: Progressing Problem: Arrythmia/Dysrhythmia Goal: Lab values return to normal range Outcome: Progressing Goal: No evidence of post procedure complications Outcome: Progressing Goal: Promote self management Outcome: Progressing Goal: Serial ECG will return to baseline Outcome: Progressing Goal: Verbalize understanding of procedures/devices Outcome: Progressing Goal: Vital signs return to baseline Outcome: Progressing Goal: Care and maintenance of device (specify) Outcome: Progressing Problem: Cardiac catheterization Goal: Free from dysrhythmias Outcome: Progressing Goal: Free from pain Outcome: Progressing Goal: No evidence of post procedure complications Outcome: Progressing Goal: Promote self management Outcome: Progressing Goal: Verbalize understanding of procedure Outcome: Progressing Goal: Care and maintenance of device (specify) Outcome: Progressing Problem: Hypertensive Emergency/Crisis Goal: Blood pressure gradually reduced to goal range Outcome: Progressing Goal: Free from signs of organ damage Outcome: Progressing Goal: Lab values return to normal range Outcome: Progressing Goal: Promote self management Outcome: Progressing Problem: Pain - Adult Goal: Verbalizes/displays adequate comfort level or baseline comfort level Outcome: Progressing Problem: Safety - Adult Goal: Free from fall injury Outcome: Progressing Problem: Discharge Planning Goal: Discharge to home or other facility with appropriate resources Outcome: Progressing Problem: Chronic Conditions and Co-morbidities Goal: Patient's chronic conditions and co-morbidity symptoms are monitored and maintained or improved Outcome: Progressing Problem: Fall/Injury Goal: Not fall by end of shift Outcome: Progressing Goal: Be free from injury by end of the shift Outcome: Progressing Goal: Verbalize understanding of personal risk factors for fall in the hospital Outcome: Progressing Goal: Verbalize understanding of risk factor reduction measures to prevent injury from fall in the home Outcome: Progressing Goal: Pace activities to prevent fatigue by end of the shift Outcome: Progressing Problem: ACS/CP/NSTEMI/STEMI Goal: Chest pain managed (free from pain or at acceptable level) Outcome: Progressing Goal: Lab values return to normal range Outcome: Progressing Goal: Promote self management Outcome: Progressing Goal: Serial ECG will return to baseline Outcome: Progressing Goal: Verbalize understanding of procedures/devices Outcome: Progressing Goal: Wean vasopressors/achieve hemodynamic stability Outcome: Progressing Problem: Arrythmia/Dysrhythmia Goal: Lab values return to normal range Outcome: Progressing Goal: No evidence of post procedure complications Outcome: Progressing Goal: Promote self management Outcome: Progressing Goal: Serial ECG will return to baseline Outcome: Progressing Goal: Verbalize understanding of procedures/devices Outcome: Progressing Goal: Vital signs return to baseline Outcome: Progressing Goal: Care and maintenance of device (specify) Outcome: Progressing Problem: Pain - Adult Goal: Verbalizes/displays adequate comfort level or baseline comfort level Outcome: Progressing Problem: Safety - Adult Goal: Free from fall injury Outcome: Progressing Problem: Fall/Injury Goal: Not fall by end of shift Outcome: Progressing Goal: Be free from injury by end of the shift Outcome: Progressing Goal: Verbalize understanding of personal risk factors for fall in the hospital Outcome: Progressing Goal: Verbalize understanding of risk factor reduction measures to prevent injury from fall in the home Outcome: Progressing Goal: Pace activities to prevent fatigue by end of the shift Outcome: Progressing Pt HDS, NPO at midnight for PCI tomorrow. Interventional Cardiology-Complex High Risk Coronary Intervention (CHIP) Update Note [facility] Fire Prevention Chief(s): Sahil Wiley MD, Inderjit Michelle MD (CHIP Fellow) HPI: 68-year-old male with a past medical history of T2DM, heart failure with preserved ejection fraction, CKD, hyperlipidemia and hypertension who initially presented to an outside hospital with 2 days of chest pain associated with worsening dyspnea. He was subsequently transferred to [facility] for further workup. 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 Transthoracic echocardiogram demonstrated an LVEF of 45 to 50%. He was then transferred to [facility] for CABG evaluation. Sadly, his about a [...] this setting, patient has been referred for consideration of multivessel percutaneous coronary vascularization. Review of the [facility] angiogram demonstrates focal severe stenotic lesion in the circumflex obtuse marginal branch (moderate to large caliber vessel), severe focal mid LAD stenosis, SHRIMP TRAWLER of the mid RCA with retrograde filling from left to right collaterals. This case was discussed with Dr. Wiley who has agreed to perform percutaneous coronary revascularization. I met the patient at the bedside on 10/19/2023. The patient had a flat affect but demonstrated a clear understanding of his clinical condition including heart failure with severe multivessel coronary artery disease. We discussed at length what benefits PCI would give the patient versus surgery. We talked about the elevated risk of the procedure given that will be a multivessel intervention and the patient has a mildly reduced ejection fraction. Patient demonstrated a clear understanding of our offered PCI plan and he agreed to undergo PCI. Our current plan is to bring the patient to the [facility] for PCI to the LAD and circumflex on 10/23/2023. We will then consider a staged intervention of the RCA, likely as outpatient in the service of minimizing contrast adminstration in the setting of CKD. RCA SHRIMP TRAWLER will be a complex intervention. Labs from 10/20/2023: Serum creatinine 1.89 mg/dL, hemoglobin 11.2 g/dL, platelet count 293,000/uL. Serum creatinine range: 1.35-1.89. Serum creatinine was 1.64 on admission. 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s: - N.p.o. at 00: 01 on 10/23/2023 - Please continue to trend renal function on a daily basis. - I will reach out to the primary team regarding the timing of loading with P2Y12 inhibitor. Inderjit Michelle MD PGY-8 CHIP-SHRIMP TRAWLER Fellow The patient's goals for the shift include The clinical goals for the shift include SBP will remained <140 throughout this shift Over the shift, the patient remained safe and without injury. He did 4 lapse of walk through the klein during the shift. He awaits his PCI to be done on 10/22. The patient's goals for the shift include The clinical goals for the shift include Patient's SBP will be under 140 during shift Patient remained safe and free of falls during shift. No reports of pain during shift. Lisinopril added for BP control during shift and lantus dose increased. Awaiting staged PCI on 10/22. The patient's goals for the shift include The clinical goals for the shift include Patient will remain HDS and verbalize decreased pain Over the shift, the patient remained HDS and was able to verbalize decreased pain Problem: ACS/CP/NSTEMI/STEMI Goal: Chest pain managed (free from pain or at acceptable level) Outcome: Progressing Goal: Lab values return to normal range Outcome: Progressing Goal: Promote self management Outcome: Progressing Goal: Serial ECG will return to baseline Outcome: Progressing Goal: Verbalize understanding of procedures/devices Outcome: Progressing Goal: Wean vasopressors/achieve hemodynamic stability Outcome: Progressing Problem: Arrythmia/Dysrhythmia Goal: Lab values return to normal range Outcome: Progressing Goal: No evidence of post procedure complications Outcome: Progressing Goal: Promote self management Outcome: Progressing Goal: Serial ECG will return to baseline Outcome: Progressing Goal: Verbalize understanding of procedures/devices Outcome: Progressing Goal: Vital signs return to baseline Outcome: Progressing Goal: Care and maintenance of device (specify) Outcome: Progressing Problem: Cardiac catheterization Goal: Free from dysrhythmias Outcome: Progressing Goal: Free from pain Outcome: Progressing Goal: No evidence of post procedure complications Outcome: Progressing Goal: Promote self management Outcome: Progressing Goal: Verbalize understanding of procedure Outcome: Progressing Goal: Care and maintenance of device (specify) Outcome: Progressing Problem: Hypertensive Emergency/Crisis Goal: Blood pressure gradually reduced to goal range Outcome: Progressing Goal: Free from signs of organ damage Outcome: Progressing Goal: Lab values return to normal range Outcome: Progressing Goal: Promote self management Outcome: Progressing [id number] 1955 ADMIT DATE: 10/15/2023 11:30 PM DISCH DATE: RESPONDING PROVIDER #: [id number] PROVIDER RESPONSE TEXT: Acute on Chronic systolic and diastolic heart Failure as evidenced by reduced LV function and evidence initially of volume overload CDI QUERY TEXT: Clarification Instruction: Based on your assessment of the patient and the clinical information, please provide the requested documentation by clicking on the appropriate radio button and enter any additional information if prompted. Question: Please clarify the diagnosis of Congestive Heart Failure When answering this query, please exercise your independent professional judgment. The fact that a question is being asked, does not imply that any particular answer is desired or expected. The patient's clinical indicators include: Clinical Information: Per History and Physical on 10/15, pt is a 68 y.o. male with PMH of HTN, HLD, DM2, Morbid obesity, OA and CHF, presented with acute on chronic decompensated heart failure and NSTEMI with 3VD on [facility] and mild LV systolic dysfunction Documented Diagnosis: Acute on chronic systolic is documented in History and Physical on 10/15 and Acute on chronic systolic and diastolic heart failure is documented in Progress Notes, 10/16-10/18 Clinical Indicators and Documentation: -Vital Signs, 10/14 at 2354: [id number], SPO2 94 RA -ECHO: Per Progress Note, 10/18, EF appears around 45-50pct -CXR, 10/15: Cardiomegaly with pulmonary edema and correlate with cardiac and fluid status. -BNP, 10/15: 88 -Physical exam findings: Per History and Physical, Progress Notes, 10/15-10/18, No clinical evidence of volume overload. -Lung Sounds: Per H and P, lung sounds clear with minimal bibasilar crackles -JVD: Per H and P, no JVD -Peripheral Edema: Per H and P, plus 2 BLE edema -Supplemental Oxygen: n/a -Cardiac Consult: n/a -History and Physical, 10/15: ADHF -HFrEF - was on IV lasix but looks like he is back to his baseline - will resume bumex 2mg -Progress Note, 10/16: s/p IV diuresis at OSH with IV lasix pushes - Near euvolemic on exam. Continue holding home dose of Bumex 2mg daily Treatment: Monitoring I/Os, Daily Weights, Bumex 2mg PO on 10/17 and 10/18, Carvedilol PO on 10/16-10/18 Risk Factors: NSTEMI, CAD, HTN Options provided: -- Chronic systolic and diastolic heart Failure -- Acute on Chronic systolic and diastolic heart Failure as evidenced by, Please specify additional information below -- Other - I will add my own diagnosis -- Refer to Clinical Documentation Reviewer Query created by: Jennifer Brady on 10/19/2023 2:46 PM Electronically signed by: MARIO HECK MD 10/19/2023 4:59 PM The patient's goals for the shift include The clinical goals for the shift include Patient will remain HDS Over the shift, the patient remained HDS. Problem: ACS/CP/NSTEMI/STEMI Goal: Chest pain managed (free from pain or at acceptable level) Outcome: Progressing Goal: Lab values return to normal range Outcome: Progressing Goal: Promote self management Outcome: Progressing Goal: Serial ECG will return to baseline Outcome: Progressing Goal: Verbalize understanding of procedures/devices Outcome: Progressing Goal: Wean vasopressors/achieve hemodynamic stability Outcome: Progressing Problem: Arrythmia/Dysrhythmia Goal: Lab values return to normal range Outcome: Progressing Goal: No evidence of post procedure complications Outcome: Progressing Goal: Promote self management Outcome: Progressing Goal: Serial ECG will return to baseline Outcome: Progressing Goal: Verbalize understanding of procedures/devices Outcome: Progressing Goal: Vital signs return to baseline Outcome: Progressing Goal: Care and maintenance of device (specify) Outcome: Progressing Problem: Cardiac catheterization Goal: Free from dysrhythmias Outcome: Progressing Goal: Free from pain Outcome: Progressing Goal: No evidence of post procedure complications Outcome: Progressing Goal: Promote self management Outcome: Progressing Goal: Verbalize understanding of procedure Outcome: Progressing Goal: Care and maintenance of device (specify) Outcome: Progressing Problem: Hypertensive Emergency/Crisis Goal: Blood pressure gradually reduced to goal range Outcome: Progressing Goal: Free from signs of organ damage Outcome: Progressing Goal: Lab values return to normal range Outcome: Progressing Goal: Promote self management Outcome: Progressing Problem: ACS/CP/NSTEMI/STEMI Goal: Chest pain managed (free from pain or at acceptable level) Outcome: Progressing Goal: Lab values return to normal range Outcome: Progressing Goal: Promote self management Outcome: Progressing Goal: Serial ECG will return to baseline Outcome: Progressing Goal: Verbalize understanding of procedures/devices Outcome: Progressing Goal: Wean vasopressors/achieve hemodynamic stability Outcome: Progressing Problem: Arrythmia/Dysrhythmia Goal: Lab values return to normal range Outcome: Progressing Goal: No evidence of post procedure complications Outcome: Progressing Goal: Promote self management Outcome: Progressing Goal: Serial ECG will return to baseline Outcome: Progressing Goal: Verbalize understanding of procedures/devices Outcome: Progressing Goal: Vital signs return to baseline Outcome: Progressing Goal: Care and maintenance of device (specify) Outcome: Progressing Problem: Cardiac catheterization Goal: Free from dysrhythmias Outcome: Progressing Goal: Free from pain Outcome: Progressing Goal: No evidence of post procedure complications Outcome: Progressing Goal: Promote self management Outcome: Progressing Goal: Verbalize understanding of procedure Outcome: Progressing Goal: Care and maintenance of device (specify) Outcome: Progressing Problem: Hypertensive Emergency/Crisis Goal: Blood pressure gradually reduced to goal range Outcome: Progressing Goal: Free from signs of organ damage Outcome: Progressing Goal: Lab values return to normal range Outcome: Progressing Goal: Promote self management Outcome: Progressing The patient's goals for the shift include The clinical goals for the shift include Pt will remain HDS throughout the shift, and prepare for procedure. Problem: ACS/CP/NSTEMI/STEMI Goal: Chest pain managed (free from pain or at acceptable level) Outcome: Progressing Goal: Lab values return to normal range Outcome: Progressing Goal: Promote self management Outcome: Progressing Goal: Serial ECG will return to baseline Outcome: Progressing Goal: Verbalize understanding of procedures/devices Outcome: Progressing Goal: Wean vasopressors/achieve hemodynamic stability Outcome: Progressing The patient's goals for the shift include The clinical goals for the shift include pt will remai HDS and safe throughout this shift Over the shift, the patient did make progress toward the following goals. Pt complained of headache not relieved by tylenol 650 mg po; pt medicated with percocet 1 tab po with relief. Will continue to monitor. Italia Allen is a 68 y.o. male with PMH of HTN, HLD, DM2, morbid obesity, OA and CHF, presented to [facility] with two days of chest pain and worsening SOB and PARSONS. He states that he knows of his CHF for the past 20 years and had a LHC then that did not show obstructive CAD but does not remember if he did an echocardiography then or how much was his EF. At [facility], he was desaturated with 70% O2 sat at RA and his troponin was uptrending. Therefore, he was transferred to [facility] for further workup and management. At [facility], he was treated with IV lasix with significant improvement of his SOB and volume status. He underwent a TTE that was reported to show an EF of 45-50% without significant valvular disease. He also underwent a LHC that showed 3VD with 70-80% stenosis of prox-mid LAD, 90% of OM1 and SHRIMP TRAWLER of prox RCA with collateral filling of the distal RCA from the left system. He was transferred to [facility] to be evaluated for CABG by CT Surgery. Upon presentation, pt without any complaints. During his admission, he continued to report significant improvement in SOB and denied recurrence of CP. CT Surgery was consulted and CABG evaluation. Carotid USwas done as part of his CABG evaluation, which revealed a total occlusion of the right internal carotid artery. Vascular surgery was consulted and no surgical intervention was recommended. Patient with labile mood, emotionally unstable, verbally aggressive, and refusing any phychiatric, spiritual, or therapeutic consultation throughout admission. Patient reports struggling with the grief of losing his last month. Per CTS/Dr. Ruiz, given patients labile emotional/mental state, and concerns about recovery post surgery, decision made not pursue CABG at this time. Interventional Cardiology consulted for PCI evaluation. Per Dr. Wiley, PCI feasible, patient agreeable. Patient taken for staged PCI on 10/22 Elective IVUS guided PCI to Lcx and LAD Orbital atherectomy and scoring balloon used to prepare the LAD lesion. Plan to follow up with Dr. Wiley in 2-3 weeks to schedule for RCA lesion. Follow up appointment with Dr. Wiley is scheduled for 11/13/2023. GDMT optimized as indicated for HFrEF and BP control. Upon review of medications, lab values, and vital signs. Pt was deemed stable for discharge in satisfactory condition. Medications were delivered via meds to beds prior to discharge. No SGLT-2 inhibitor was started due to cost. Can consider starting MRA in the outpatient setting if renal function permits. Discharge weight: 111 kg More than 60 minutes were spent in coordinating patient discharge. Problem: Hypertensive Emergency/Crisis Goal: Blood pressure gradually reduced to goal range Outcome: Progressing Goal: Free from signs of organ damage Outcome: Progressing Goal: Lab values return to normal range Outcome: Progressing Goal: Promote self management Outcome: Progressing Problem: ACS/CP/NSTEMI/STEMI Goal: Chest pain managed (free from pain or at acceptable level) Outcome: Progressing Goal: Lab values return to normal range Outcome: Progressing Goal: Promote self management Outcome: Progressing Goal: Serial ECG will return to baseline Outcome: Progressing Goal: Verbalize understanding of procedures/devices Outcome: Progressing Goal: Wean vasopressors/achieve hemodynamic stability Outcome: Progressing The patient's goals for the shift include The clinical goals for the shift include pt heparin assay will be therapeutic this shift Over the shift, the patient did not make progress toward the following goals. Pt heparin assay was therapeutic x 1, medicated with tylenol 650 mg po x 2 for back pain. The patient's goals for the shift include The clinical goals for the shift include therapeutic on heparin Over the shift, the patient did not make progress toward the following goals. Barriers to progression include subtherapeutic assay. 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s to address these barriers include every 4 hrs til therapeutic. Problem: ACS/CP/NSTEMI/STEMI Goal: Chest pain managed (free from pain or at acceptable level) Outcome: Progressing Goal: Lab values return to normal range Outcome: Progressing Goal: Promote self management Outcome: Progressing Goal: Serial ECG will return to baseline Outcome: Progressing Goal: Verbalize understanding of procedures/devices Outcome: Progressing Goal: Wean vasopressors/achieve hemodynamic stability Outcome: Progressing Problem: Cardiac catheterization Goal: Free from dysrhythmias Outcome: Progressing Goal: Free from pain Outcome: Progressing Goal: No evidence of post procedure complications Outcome: Progressing Goal: Promote self management Outcome: Progressing Goal: Verbalize understanding of procedure Outcome: Progressing Goal: Care and maintenance of device (specify) Outcome: Progressing The patient's goals for the shift include The clinical goals for the shift include pt will remain HDS and safe throughout this shift Over the shift, the patient did not make progress toward the following goals. Heparin drip @ 10 ml/hr. Medicated with tylenol 650 mg po for back pain and headache. Will continue to monitor. documented in this encounter [facility] Work Phone: 10-23-2023 Plan of care note The patient's goals for the shift include The clinical goals for the shift include safety Over the shift, the patient did make progress toward the following goals. Problem: Pain - Adult Goal: Verbalizes/displays adequate comfort level or baseline comfort level Outcome: Progressing Flowsheets (Taken 10/23/20232150) Verbalizes/displays adequate comfort level or baseline comfort level: Encourage patient to monitor pain and request assistance Assess pain using appropriate pain scale Problem: Safety - Adult Goal: Free from fall injury Outcome: Progressing Flowsheets (Taken 10/23/20232150) Free from fall injury: Based on caregiver fall risk screen, instruct family/caregiver to ask for assistance with transferring if caregiver noted to have fall risk factors Instruct family/caregiver on patient safety [facility] 10-23-2023 Plan of care note Pt remained HDS and free of injury this shift. Pt had PCI with 2 stents placed to LAD. Pt currently has TR band on R radial incision - air to start being removed at 1915. Pt is potential discharge tomorrow. Problem: ACS/CP/NSTEMI/STEMI Goal: Chest pain managed (free from pain or at acceptable level) Outcome: Progressing Goal: Lab values return to normal range Outcome: Progressing Goal: Promote self management Outcome: Progressing Goal: Serial ECG will return to baseline Outcome: Progressing Goal: Verbalize understanding of procedures/devices Outcome: Progressing Goal: Wean vasopressors/achieve hemodynamic stability Outcome: Progressing Problem: Arrythmia/Dysrhythmia Goal: Lab values return to normal range Outcome: Progressing Goal: No evidence of post procedure complications Outcome: Progressing Goal: Promote self management Outcome: Progressing Goal: Serial ECG will return to baseline Outcome: Progressing Goal: Verbalize understanding of procedures/devices Outcome: Progressing Goal: Vital signs return to baseline Outcome: Progressing Goal: Care and maintenance of device (specify) Outcome: Progressing Problem: Cardiac catheterization Goal: Free from dysrhythmias Outcome: Progressing Goal: Free from pain Outcome: Progressing Goal: No evidence of post procedure complications Outcome: Progressing Goal: Promote self management Outcome: Progressing Goal: Verbalize understanding of procedure Outcome: Progressing Goal: Care and maintenance of device (specify) Outcome: Progressing Problem: Hypertensive Emergency/Crisis Goal: Blood pressure gradually reduced to goal range Outcome: Progressing Goal: Free from signs of organ damage Outcome: Progressing Goal: Lab values return to normal range Outcome: Progressing Goal: Promote self management Outcome: Progressing Problem: Pain - Adult Goal: Verbalizes/displays adequate comfort level or baseline comfort level Outcome: Progressing Problem: Safety - Adult Goal: Free from fall injury Outcome: Progressing Problem: Discharge Planning Goal: Discharge to home or other facility with appropriate resources Outcome: Progressing Problem: Chronic Conditions and Co-morbidities Goal: Patient's chronic conditions and co-morbidity symptoms are monitored and maintained or improved Outcome: Progressing Problem: Fall/Injury Goal: Not fall by end of shift Outcome: Progressing Goal: Be free from injury by end of the shift Outcome: Progressing Goal: Verbalize understanding of personal risk factors for fall in the hospital Outcome: Progressing Goal: Verbalize understanding of risk factor reduction measures to prevent injury from fall in the home Outcome: Progressing Goal: Pace activities to prevent fatigue by end of the shift Outcome: Progressing [facility] Work Phone: 10-23-2023 Hospital Discharge instructions Catia Patton PA-C - 10/23/2023 5:10 PM EDT Images from the original note were not included. CARDIAC CATHETERIZATION DISCHARGE INSTRUCTIONS (procedure done on 10/23/23) FOR SUDDEN AND SEVERE CHEST PAIN, SHORTNESS OF BREATH, EXCESSIVE BLEEDING, SIGNS OF STROKE, OR CHANGES IN MENTAL STATUS YOU SHOULD CALL 911 IMMEDIATELY. If your provider has prescribed aspirin and/or clopidogrel (Plavix), or prasugrel (Effient), or ticagrelor (Brilinta), DO NOT STOP THESE MEDICATIONS for any reason without talking to your sandblaster glass first. If any of these were prescribed, you must take them every day without missing a single dose. If you are getting low on these medications, contact your provider immediately for a refill. FOR NEXT 24 HOURS - Upon discharge, you should return home and rest for the remainder of the day and evening. You do not have to stay on bed rest but should not be very active. It is recommended a responsible adult be with you for the first 24 hours after the procedure. - No driving for 24 hours after procedure. Please arrange for someone to drive you home from the hospital today. - Do not drive, operate machinery, or use power tools for 24 hours after your procedure. - Do not make any legal decisions for 24 hours after your procedure. - Do not drink alcoholic beverages for 24 hours after your procedure. WOUND CARE *FOR RADIAL (WRIST) ACCESS* No lifting more than 5 pounds or excessive use of the wrist for 24 hours - for example, treat your wrist as if it is sprained. Do not engage in vigorous activities (tennis, golf, bowling, weights) for at least 48 hours after the procedure. Do not submerge the wrist for 7 days after the procedure. You should expect mild tingling in your hand and tenderness at the puncture site for up to 3 days. - The transparent dressing should be removed from the site 24 hours after the procedure. Wash the site gently with soap and water. Rinse well and pat dry. Keep the area clean and dry. You may apply a Band-Aid to the site. Avoid lotions, ointments, or powders until fully healed. - You may shower the day after your procedure. - It is normal to notice a small bruise around the puncture site and/or a small grape sized or smaller lump. Any large bruising or large lump warrants a call to the office. - If bleeding should occur, lay down and apply pressure to the affected area for 10 minutes. If the bleeding stops notify your physician. If there is a large amount of bleeding or spurting of blood CALL [address] yourself to the hospital. - You may experience some tenderness, bruising or minimal inflammation. If you have any concerns, you may contact the Supervisor Compounding And Finishing or if any of these symptoms become excessive, contact your sandblaster glass or go to the emergency room. OTHER INSTRUCTIONS - You may take acetaminophen (Tylenol) as directed for discomfort. If pain is not relieved with acetaminophen (Tylenol), contact your doctor. - If you notice or experience any of the following, you should notify your doctor or seek medical attention Chest pain or discomfort Change in mental status or weakness in extremities. Dizziness, light headedness, or feeling faint. Change in the site where the procedure was performed, such as bleeding or an increased area of bruising or swelling. Tingling, numbness, pain, or coolness in the leg/arm beyond the site where the procedure was performed. Signs of infection (i.e. shaking chills, temperature > 100 degrees Fahrenheit, warmth, redness) in the leg/arm area where the procedure was performed. Changes in urination Bloody or black stools Vomiting blood Severe nose bleeds Any excessive bleeding The following attachments cannot be sent through Care Everywhere.Heart Failure Discharge Instructions, Adult (Italian)Coronary Artery Disease Discharge Instructions (Italian)Coronary Stenting Discharge Instructions (Italian)documented in this encounter [facility] Work Phone: 10-23-2023 Note Formatting of this n ote is different from the original. Physician Transition of Care Summary Invasive Cardiovascular Lab Procedure Date: 10/23/2023 Attending: * Sahil Wiley - Primary Resident/Fellow/Other Felt Tipping Machine Tender: Blaise Michelle Surgeons and Role: * No surgeons found with a matching role * Indications: Pre-op Diagnosis * CAD, multiple vessel [I25.10] Post-procedure diagnosis: Post-op Diagnosis * CAD, multiple vessel [I25.10] Procedure(s): * PCI LISY Stent- Coronary Procedure Findings: Elective IVUS guided PCI to Lcx and LAD Orbital atherectomy and scoring balloon used to prepare the LAD lesion Description of the Procedure: EBU 3.5 guide catheter Johnathon blue and run through coronary wires used TR band - 13mmHg Complications: Nil Stents/Implants: Implants Stent Stent, Scott [place] Lisy, 3.50 X 15rx - [id number] - Implanted Inventory item: STENT, SCOTT FRONTIER LISY, 3.50 X 15RX Model/Cat number: [id number] Accounts Clerk: [employer] Lot number: [id number] Device identifier: [id number] As of 10/23/2023 Status: Implanted Stent, Synergy Xd, Mr Us, 3.00 X 48mm - [id number] - Implanted Inventory item: STENT, SYNERGY XD, MR US, 3.00 X 48MM Model/Cat number: [id number] Accounts Clerk: Sassor Lot number: [id number] Device identifier: [id number] As of 10/23/2023 Status: Implanted Anticoagulation/Antiplatelet Plan: Estimated Blood Loss: 5 mL Anesthesia: Moderate Sedation Anesthesia Staff: No anesthesia staff entered. Any Specimen(s) Removed: No specimens collected during this procedure. Disposition: Back to [facility] tomorrow Clinic follow up in 2-3 weeks Consideration of staged PCI to SHRIMP TRAWLER of the right DAPT for 12 months (prasugrel and aspirin) Electronically signed by: Abdoulaye Welsh MD, 10/23/2023 5:08 PM [facility] Work Phone: 10-23-2023 Note Formatting of this n ote might be different from the original. Sedation Plan ASA 3 Mallampati class: I. Risks, benefits, and alternatives discussed with patient. [facility] Work Phone: 10-23-2023 Attending History and physical note H&P reviewed. The patient was examined and there are no changes to the H&P. Patient denies current CP, only reporting back pain from the bed. Frustrated about having to wait so long for procedure. Source Note - Jarrell Dale MD - 10/16/2023 12:45 AM EDT History Of Present Illness Italia Allen is a 68 y.o. male with PMH of HTN, HLD, DM2, Morbid obesity, OA and CHF, presented to [facility] with two days of chest pain and worsening SOB and PARSONS. He states that he knows of his CHF for the past 20 years and had a LHC then that did not show obstructive CAD but does not remember if he did an echocardiography then or how much was his EF. At [facility], he was desaturated with 70% O2 sat at RA and his troponin was uptrending. Therefore, he was transferred to [facility] for further workup and management. At [facility], he was treated with IV lasix with significant improvement of his SOB and volume status. He underwent a TTE that was reported to show an EF of 45-50% without significant valvular disease. He also underwent a LHC that showed 3VD with 70-80% stenosis of prox-mid LAD, 90% of OM1 and SHRIMP TRAWLER of prox RCA with collateral filling of the distal RCA from the left system. He was transferred to our hospital to be evaluated for CABG by CTS. At presentation, he feels fine without complaints. Reports significant improvement in SOB and denies CP since his admission at OSH. Past Medical History Past Medical History: Diagnosis Date Diabetes mellitus (Multi) Hypertension Surgical History No past surgical history on file. Social History He reports that he has never smoked. He has never used smokeless tobacco. No history on file for alcohol use and drug use. Family History No family history on file. Allergies Patient has no known allergies. Review of Systems Respiratory: Positive for shortness of breath. Cardiovascular: Positive for chest pain and leg swelling. Physical Exam: Constitutional: Well developed, awake/alert/oriented x3, no distress, cooperative Eyes: PERRL, EOMI, clear sclera ENMT: mucous membranes moist Head/Neck: Neck supple, No JVD Respiratory/Thorax: Good chest expansion, thorax symmetric, lung sounds clear with minimal bibasilar crackles Cardiovascular: Regular rate and rhythm, no murmurs, normal S1 and S2 Gastrointestinal: Nondistended, soft, non-tender, no rebound tenderness or guarding, no masses palpable, no organomegaly, +BS Extremities: +2 BLE edema, no cyanosis, Neurological: alert and oriented x3, intact senses, motor, response and reflexes, normal strength Psychological: Appropriate mood and behavior Skin: Warm and dry, intact. Last Recorded Vitals Blood pressure 114/63, pulse 87, temperature 37.4 C (99.3 F), temperature source Temporal, resp. rate 20, weight 113 kg (250 lb 3.6 oz), SpO2 94%. Relevant Results Per report, - TTE 10/14: EF of 45-50% without significant valvular disease. - LHC 10/14: 3VD. 70-80% stenosis of prox-mid LAD, 90% of OM1 and SHRIMP TRAWLER of prox RCA with collateral filling of the distal RCA from the left system Assessment/Plan Assessment & Plan Acute on chronic systolic (congestive) heart failure (Multi) Hypertension Stage 3a chronic kidney disease (Multi) Type 2 diabetes mellitus without complication (Multi) CAD, multiple vessel NSTEMI (non-ST elevated myocardial infarction) (Multi) 68 y.o. male with PMH of HTN, HLD, DM2, Morbid obesity, OA and CHF, presented with acute on chronic decompensated heart failure and NSTEMI with 3VD on LHC and mild LV systolic dysfunction. Transferred from OSH for CABG evaluation. # ADHF # HFrEF - EF 45-50% - m/p 2/2 ICM however pt states that he has known about CHF for 20 years and had a normal LHC then. No info about previous EF. - obtain TTE images from [facility] - was on IV lasix but looks like he is back to his baseline - will resume bumex 2mg #NSTEMI # 3VD - continue Heparin gtt, aspirin and statins - obtain LHC images from [facility] - CTS consult for CABG #DM - insulin sliding scale #HTN - on lisinopril # CKD - Cr 1.7, stable - no previous info on kidney function- last Cr in 2016 was normal. - behaves like CKD with stable value at OSH - Renal US at OSH on 10/14- no acute findings - stopped NSAIDS I spent 65 minutes in the professional and overall care of this patient. Jarrell Dale MD [facility] Work Phone: 10-23-2023 History and physical note H&P reviewed. The patient was examined and there are no changes to the H&P. Patient denies current CP, only reporting back pain from the bed. Frustrated about having to wait so long for procedure. Source Note - Jarrell Dale MD - 10/16/2023 12:45 AM EDT History Of Present Illness Italia Allen is a 68 y.o. male with PMH of HTN, HLD, DM2, Morbid obesity, OA and CHF, presented to [facility] with two days of chest pain and worsening SOB and PARSONS. He states that he knows of his CHF for the past 20 years and had a LHC then that did not show obstructive CAD but does not remember if he did an echocardiography then or how much was his EF. At [facility], he was desaturated with 70% O2 sat at RA and his troponin was uptrending. Therefore, he was transferred to [facility] for further workup and management. At [facility], he was treated with IV lasix with significant improvement of his SOB and volume status. He underwent a TTE that was reported to show an EF of 45-50% without significant valvular disease. He also underwent a LHC that showed 3VD with 70-80% stenosis of prox-mid LAD, 90% of OM1 and SHRIMP TRAWLER of prox RCA with collateral filling of the distal RCA from the left system. He was transferred to our hospital to be evaluated for CABG by CTS. At presentation, he feels fine without complaints. Reports significant improvement in SOB and denies CP since his admission at OSH. Past Medical History Past Medical History: Diagnosis Date Diabetes mellitus (Multi) Hypertension Surgical History No past surgical history on file. Social History He reports that he has never smoked. He has never used smokeless tobacco. No history on file for alcohol use and drug use. Family History No family history on file. Allergies Patient has no known allergies. Review of Systems Respiratory: Positive for shortness of breath. Cardiovascular: Positive for chest pain and leg swelling. Physical Exam: Constitutional: Well developed, awake/alert/oriented x3, no distress, cooperative Eyes: PERRL, EOMI, clear sclera ENMT: mucous membranes moist Head/Neck: Neck supple, No JVD Respiratory/Thorax: Good chest expansion, thorax symmetric, lung sounds clear with minimal bibasilar crackles Cardiovascular: Regular rate and rhythm, no murmurs, normal S1 and S2 Gastrointestinal: Nondistended, soft, non-tender, no rebound tenderness or guarding, no masses palpable, no organomegaly, +BS Extremities: +2 BLE edema, no cyanosis, Neurological: alert and oriented x3, intact senses, motor, response and reflexes, normal strength Psychological: Appropriate mood and behavior Skin: Warm and dry, intact. Last Recorded Vitals Blood pressure 114/63, pulse 87, temperature 37.4 C (99.3 F), temperature source Temporal, resp. rate 20, weight 113 kg (250 lb 3.6 oz), SpO2 94%. Relevant Results Per report, - TTE 10/14: EF of 45-50% without significant valvular disease. - LHC 10/14: 3VD. 70-80% stenosis of prox-mid LAD, 90% of OM1 and SHRIMP TRAWLER of prox RCA with collateral filling of the distal RCA from the left system Assessment/Plan Assessment & Plan Acute on chronic systolic (congestive) heart failure (Multi) Hypertension Stage 3a chronic kidney disease (Multi) Type 2 diabetes mellitus without complication (Multi) CAD, multiple vessel NSTEMI (non-ST elevated myocardial infarction) (Multi) 68 y.o. male with PMH of HTN, HLD, DM2, Morbid obesity, OA and CHF, presented with acute on chronic decompensated heart failure and NSTEMI with 3VD on LHC and mild LV systolic dysfunction. Transferred from OSH for CABG evaluation. # ADHF # HFrEF - EF 45-50% - m/p 2/2 ICM however pt states that he has known about CHF for 20 years and had a normal LH then. No info about previous EF. - obtain TTE images from [facility] - was on IV lasix but looks like he is back to his baseline - will resume bumex 2mg #NSTEMI # 3VD - continue Heparin gtt, aspirin and statins - obtain LHC images from [facility] - CTS consult for CABG #DM - insulin sliding scale #HTN - on lisinopril # CKD - Cr 1.7, stable - no previous info on kidney function- last Cr in 2016 was normal. - behaves like CKD with stable value at OSH - Renal US at OSH on 10/14- no acute findings - stopped NSAIDS I spent 65 minutes in the professional and overall care of this patient. Jarrell Dale MD History Of Present Illness Italia Allen is a 68 y.o. male with PMH of HTN, HLD, DM2, Morbid obesity, OA and CHF, presented to [facility] with two days of chest pain and worsening SOB and PARSONS. He states that he knows of his CHF for the past 20 years and had a LHC then that did not show obstructive CAD but does not remember if he did an echocardiography then or how much was his EF. At [facility], he was desaturated with 70% O2 sat at RA and his troponin was uptrending. Therefore, he was transferred to [facility] for further workup and management. At [facility], he was treated with IV lasix with significant improvement of his SOB and volume status. He underwent a TTE that was reported to show an EF of 45-50% without significant valvular disease. He also underwent a LHC that showed 3VD with 70-80% stenosis of prox-mid LAD, 90% of OM1 and SHRIMP TRAWLER of prox RCA with collateral filling of the distal RCA from the left system. He was transferred to our hospital to be evaluated for CABG by CTS. At presentation, he feels fine without complaints. Reports significant improvement in SOB and denies CP since his admission at OSH. Past Medical History Past Medical History: Diagnosis Date Diabetes mellitus (Multi) Hypertension Surgical History No past surgical history on file. Social History He reports that he has never smoked. He has never used smokeless tobacco. No history on file for alcohol use and drug use. Family History No family history on file. Allergies Patient has no known allergies. Review of Systems Respiratory: Positive for shortness of breath. Cardiovascular: Positive for chest pain and leg swelling. Physical Exam: Constitutional: Well developed, awake/alert/oriented x3, no distress, cooperative Eyes: PERRL, EOMI, clear sclera ENMT: mucous membranes moist Head/Neck: Neck supple, No JVD Respiratory/Thorax: Good chest expansion, thorax symmetric, lung sounds clear with minimal bibasilar crackles Cardiovascular: Regular rate and rhythm, no murmurs, normal S1 and S2 Gastrointestinal: Nondistended, soft, non-tender, no rebound tenderness or guarding, no masses palpable, no organomegaly, +BS Extremities: +2 BLE edema, no cyanosis, Neurological: alert and oriented x3, intact senses, motor, response and reflexes, normal strength Psychological: Appropriate mood and behavior Skin: Warm and dry, intact. Last Recorded Vitals Blood pressure 114/63, pulse 87, temperature 37.4 C (99.3 F), temperature source Temporal, resp. rate 20, weight 113 kg (250 lb 3.6 oz), SpO2 94%. Relevant Results Per report, - TTE 10/14: EF of 45-50% without significant valvular disease. - LHC 10/14: 3VD. 70-80% stenosis of prox-mid LAD, 90% of OM1 and SHRIMP TRAWLER of prox RCA with collateral filling of the distal RCA from the left system Assessment/Plan Assessment & Plan Acute on chronic systolic (congestive) heart failure (Multi) Hypertension Stage 3a chronic kidney disease (Multi) Type 2 diabetes mellitus without complication (Multi) CAD, multiple vessel NSTEMI (non-ST elevated myocardial infarction) (Multi) 68 y.o. male with PMH of HTN, HLD, DM2, Morbid obesity, OA and CHF, presented with acute on chronic decompensated heart failure and NSTEMI with 3VD on LHC and mild LV systolic dysfunction. Transferred from OSH for CABG evaluation. # ADHF # HFrEF - EF 45-50% - m/p 2/2 ICM however pt states that he has known about CHF for 20 years and had a normal LHC then. No info about previous EF. - obtain TTE images from [facility] - was on IV lasix but looks like he is back to his baseline - will resume bumex 2mg #NSTEMI # 3VD - continue Heparin gtt, aspirin and statins - obtain LHC images from [facility] - CTS consult for CABG #DM - insulin sliding scale #HTN - on lisinopril # CKD - Cr 1.7, stable - no previous info on kidney function- last Cr in 2016 was normal. - behaves like CKD with stable value at OSH - Renal US at OSH on 10/14- no acute findings - stopped NSAIDS I spent 65 minutes in the professional and overall care of this patient. Jarrell Dale MD Associated attestation - Mario Heck MD - 10/16/2023 1:59 PM EDT I saw and evaluated the patient. I personally obtained the bangura and critical portions of the history and physical exam or was physically present for bangura and critical portions performed by the resident/fellow. I reviewed the resident/fellow's documentation and discussed the patient with the resident/fellow. I agree with the resident/fellow's medical decision making as documented in the note. 68 M with HTN, HLD, DM2 who presented to an OSH with chest pain and PARSONS. He was transferred to [facility] where an echo showed EF 45-50% and LHC showed 3VD with reported 70-80% stenosis of the prox-mid LAD, 90% OM1 and SHRIMP TRAWLER of proximal RCA with left to right collaterals. He was transferred for CTS evaluation for CABG. #Multivessel CAD: CT surgery evaluation. Continue aspirin, statin, metoprolol and heparin. #HFmrEF: EF appears around 45-50% on personal review of OSH echo without major valve issues. No clinical evidence of volume overload. Metoprolol as above. Holding GDMT given potential CABG. #CKD: creatinine appears around reported baseline of 1.5. Mario Heck MD documented in this encounter [facility] Work Phone: 10-23-2023 Note Formatting of this n ote might be different from the original. Sedation Plan ASA 3 Mallampati class: II. Risks, benefits, and alternatives discussed with patient. [facility] Work Phone: 10-23-2023 Plan of care note The patient's goals for the shift include The clinical goals for the shift include pt will remain HDS and free from falls Over the shift, the patient remained HDS and free from falls. Problem: ACS/CP/NSTEMI/STEMI Goal: Chest pain managed (free from pain or at acceptable level) Outcome: Progressing Goal: Lab values return to normal range Outcome: Progressing Goal: Promote self management Outcome: Progressing Goal: Serial ECG will return to baseline Outcome: Progressing Goal: Verbalize understanding of procedures/devices Outcome: Progressing Goal: Wean vasopressors/achieve hemodynamic stability Outcome: Progressing Problem: Arrythmia/Dysrhythmia Goal: Lab values return to normal range Outcome: Progressing Goal: No evidence of post procedure complications Outcome: Progressing Goal: Promote self management Outcome: Progressing Goal: Serial ECG will return to baseline Outcome: Progressing Goal: Verbalize understanding of procedures/devices Outcome: Progressing Goal: Vital signs return to baseline Outcome: Progressing Goal: Care and maintenance of device (specify) Outcome: Progressing Problem: Cardiac catheterization Goal: Free from dysrhythmias Outcome: Progressing Goal: Free from pain Outcome: Progressing Goal: No evidence of post procedure complications Outcome: Progressing Goal: Promote self management Outcome: Progressing Goal: Verbalize understanding of procedure Outcome: Progressing Goal: Care and maintenance of device (specify) Outcome: Progressing Problem: Hypertensive Emergency/Crisis Goal: Blood pressure gradually reduced to goal range Outcome: Progressing Goal: Free from signs of organ damage Outcome: Progressing Goal: Lab values return to normal range Outcome: Progressing Goal: Promote self management Outcome: Progressing Problem: Pain - Adult Goal: Verbalizes/displays adequate comfort level or baseline comfort level Outcome: Progressing Problem: Safety - Adult Goal: Free from fall injury Outcome: Progressing Problem: Discharge Planning Goal: Discharge to home or other facility with appropriate resources Outcome: Progressing Problem: Chronic Conditions and Co-morbidities Goal: Patient's chronic conditions and co-morbidity symptoms are monitored and maintained or improved Outcome: Progressing Problem: Fall/Injury Goal: Not fall by end of shift Outcome: Progressing Goal: Be free from injury by end of the shift Outcome: Progressing Goal: Verbalize understanding of personal risk factors for fall in the hospital Outcome: Progressing Goal: Verbalize understanding of risk factor reduction measures to prevent injury from fall in the home Outcome: Progressing Goal: Pace activities to prevent fatigue by end of the shift Outcome: Progressing [facility] 10-22-2023 Plan of care note Problem: ACS/CP/NSTEMI/STEMI Goal: Chest pain managed (free from pain or at acceptable level) Outcome: Progressing Goal: Lab values return to normal range Outcome: Progressing Goal: Promote self management Outcome: Progressing Goal: Serial ECG will return to baseline Outcome: Progressing Goal: Verbalize understanding of procedures/devices Outcome: Progressing Goal: Wean vasopressors/achieve hemodynamic stability Outcome: Progressing Problem: Arrythmia/Dysrhythmia Goal: Lab values return to normal range Outcome: Progressing Goal: No evidence of post procedure complications Outcome: Progressing Goal: Promote self management Outcome: Progressing Goal: Serial ECG will return to baseline Outcome: Progressing Goal: Verbalize understanding of procedures/devices Outcome: Progressing Goal: Vital signs return to baseline Outcome: Progressing Goal: Care and maintenance of device (specify) Outcome: Progressing Problem: Pain - Adult Goal: Verbalizes/displays adequate comfort level or baseline comfort level Outcome: Progressing Problem: Safety - Adult Goal: Free from fall injury Outcome: Progressing Problem: Fall/Injury Goal: Not fall by end of shift Outcome: Progressing Goal: Be free from injury by end of the shift Outcome: Progressing Goal: Verbalize understanding of personal risk factors for fall in the hospital Outcome: Progressing Goal: Verbalize understanding of risk factor reduction measures to prevent injury from fall in the home Outcome: Progressing Goal: Pace activities to prevent fatigue by end of the shift Outcome: Progressing Pt HDS, NPO at midnight for PCI tomorrow. [facility] 10-21-2023 Note Formatting of this n ote might be different from the original. Interventional Cardiology-Complex High Risk Coronary Intervention (CHIP) Update Note [facility] Fire Prevention Chief(s): Sahil Wiley MD, Inderjit Michelle MD (CHIP Fellow) HPI: 68-year-old male with a past medical history of T2DM, heart failure with preserved ejection fraction, CKD, hyperlipidemia and hypertension who initially presented to an outside hospital with 2 days of chest pain associated with worsening dyspnea. He was subsequently transferred to [facility] for further workup. 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 Transthoracic echocardiogram demonstrated an LVEF of 45 to 50%. He was then transferred to [facility] for CABG evaluation. Sadly, his about a [...] this setting, patient has been referred for consideration of multivessel percutaneous coronary vascularization. Review of the [facility] angiogram demonstrates focal severe stenotic lesion in the circumflex obtuse marginal branch (moderate to large caliber vessel), severe focal mid LAD stenosis, SHRIMP TRAWLER of the mid RCA with retrograde filling from left to right collaterals. This case was discussed with Dr. Wiley who has agreed to perform percutaneous coronary revascularization. I met the patient at the bedside on 10/19/2023. The patient had a flat affect but demonstrated a clear understanding of his clinical condition including heart failure with severe multivessel coronary artery disease. We discussed at length what benefits PCI would give the patient versus surgery. We talked about the elevated risk of the procedure given that will be a multivessel intervention and the patient has a mildly reduced ejection fraction. Patient demonstrated a clear understanding of our offered PCI plan and he agreed to undergo PCI. Our current plan is to bring the patient to the [facility] for PCI to the LAD and circumflex on 10/23/2023. We will then consider a staged intervention of the RCA, likely as outpatient in the service of minimizing contrast adminstration in the setting of CKD. RCA SHRIMP TRAWLER will be a complex intervention. Labs from 10/20/2023: Serum creatinine 1.89 mg/dL, hemoglobin 11.2 g/dL, platelet count 293,000/uL. Serum creatinine range: 1.35-1.89. Serum creatinine was 1.64 on admission. 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s: - N.p.o. at 00: 01 on 10/23/2023 - Please continue to trend renal function on a daily basis. - I will reach out to the primary team regarding the timing of loading with P2Y12 inhibitor. Inderjit Michelle MD PGY-8 CHIP-SHRIMP TRAWLER Fellow [facility] Work Phone: 10-21-2023 Plan of care note The patient's goals for the shift include The clinical goals for the shift include SBP will remained <140 throughout this shift Over the shift, the patient remained safe and without injury. He did 4 lapse of walk through the klein during the shift. He awaits his PCI to be done on 10/22. [facility] 10-20-2023 Plan of care note The patient's goals for the shift include The clinical goals for the shift include Patient's SBP will be under 140 during shift Patient remained safe and free of falls during shift. No reports of pain during shift. Lisinopril added for BP control during shift and lantus dose increased. Awaiting staged PCI on 10/22. [facility] 10-20-2023 Plan of care note The patient's goals for the shift include The clinical goals for the shift include Patient will remain HDS and verbalize decreased pain Over the shift, the patient remained HDS and was able to verbalize decreased pain Problem: ACS/CP/NSTEMI/STEMI Goal: Chest pain managed (free from pain or at acceptable level) Outcome: Progressing Goal: Lab values return to normal range Outcome: Progressing Goal: Promote self management Outcome: Progressing Goal: Serial ECG will return to baseline Outcome: Progressing Goal: Verbalize understanding of procedures/devices Outcome: Progressing Goal: Wean vasopressors/achieve hemodynamic stability Outcome: Progressing Problem: Arrythmia/Dysrhythmia Goal: Lab values return to normal range Outcome: Progressing Goal: No evidence of post procedure complications Outcome: Progressing Goal: Promote self management Outcome: Progressing Goal: Serial ECG will return to baseline Outcome: Progressing Goal: Verbalize understanding of procedures/devices Outcome: Progressing Goal: Vital signs return to baseline Outcome: Progressing Goal: Care and maintenance of device (specify) Outcome: Progressing Problem: Cardiac catheterization Goal: Free from dysrhythmias Outcome: Progressing Goal: Free from pain Outcome: Progressing Goal: No evidence of post procedure complications Outcome: Progressing Goal: Promote self management Outcome: Progressing Goal: Verbalize understanding of procedure Outcome: Progressing Goal: Care and maintenance of device (specify) Outcome: Progressing Problem: Hypertensive Emergency/Crisis Goal: Blood pressure gradually reduced to goal range Outcome: Progressing Goal: Free from signs of organ damage Outcome: Progressing Goal: Lab values return to normal range Outcome: Progressing Goal: Promote self management Outcome: Progressing [facility] Work Phone: 10-19-2023 Note Formatting of this n ote might be different from the original. PATIENT: ITALIA ALLEN : 1955 ADMIT DATE: 10/15/2023 11:30 PM DISCH DATE: RESPONDING PROVIDER #: [id number] PROVIDER RESPONSE TEXT: Acute on Chronic systolic and diastolic heart Failure as evidenced by reduced LV function and evidence initially of volume overload CDI QUERY TEXT: Clarification Instruction: Based on your assessment of the patient and the clinical information, please provide the requested documentation by clicking on the appropriate radio button and enter any additional information if prompted. Question: Please clarify the diagnosis of Congestive Heart Failure When answering this query, please exercise your independent professional judgment. The fact that a question is being asked, does not imply that any particular answer is desired or expected. The patient's clinical indicators include: Clinical Information: Per History and Physical on 10/15, pt is a 68 y.o. male with PMH of HTN, HLD, DM2, Morbid obesity, OA and CHF, presented with acute on chronic decompensated heart failure and NSTEMI with 3VD on [facility] and mild LV systolic dysfunction Documented Diagnosis: Acute on chronic systolic is documented in History and Physical on 10/15 and Acute on chronic systolic and diastolic heart failure is documented in Progress Notes, 10/16-10/18 Clinical Indicators and Documentation: -Vital Signs, 10/14 at 2354: [id number], SPO2 94 RA -ECHO: Per Progress Note, 10/18, EF appears around 45-50pct -CXR, 10/15: Cardiomegaly with pulmonary edema and correlate with cardiac and fluid status. -BNP, 10/15: 88 -Physical exam findings: Per History and Physical, Progress Notes, 10/15-10/18, No clinical evidence of volume overload. -Lung Sounds: Per H and P, lung sounds clear with minimal bibasilar crackles -JVD: Per H and P, no JVD -Peripheral Edema: Per H and P, plus 2 BLE edema -Supplemental Oxygen: n/a -Cardiac Consult: n/a -History and Physical, 10/15: ADHF -HFrEF - was on IV lasix but looks like he is back to his baseline - will resume bumex 2mg -Progress Note, 10/16: s/p IV diuresis at OSH with IV lasix pushes - Near euvolemic on exam. Continue holding home dose of Bumex 2mg daily Treatment: Monitoring I/Os, Daily Weights, Bumex 2mg PO on 10/17 and 10/18, Carvedilol PO on 10/16-10/18 Risk Factors: NSTEMI, CAD, HTN Options provided: -- Chronic systolic and diastolic heart Failure -- Acute on Chronic systolic and diastolic heart Failure as evidenced by, Please specify additional information below -- Other - I will add my own diagnosis -- Refer to Clinical Documentation Reviewer Query created by: Jennifer Brady on 10/19/2023 2:46 PM Electronically signed by: MARIO HECK MD 10/19/2023 4:59 PM [facility] Work Phone: 10-19-2023 Nurse Note Problem: Pt. Has been noted in progress notes to be labile in emotions. Assessment: Although initially quiet and talking in brief sentences, he began to reminisce. 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 He talked about two sons, a granddaughter who has a 4.9 GPA as a sophomore in high school. He is missing her volleyball games while he is in the hospital. Later in the discussion he talked about his dying in August, the hardest thing in his life was to watch her take her last breath. I summarized that he has been a giving person all his life and the bravest gift was to be with his so she didn't have to alone. Plan: He refused getting some treats, word find books, etc. I will follow. Easton Rodrigues RN, PhD, DALTON-GEM, CCRN [facility] Work Phone: 10-19-2023 Nurse Note Problem: Pt. Has been noted in progress notes to be labile in emotions. Assessment: Although initially quiet and talking in brief sentences, he began to reminisce. 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 He talked about two sons, a granddaughter who has a 4.9 GPA as a sophomore in high school. He is missing her volleyball games while he is in the hospital. Later in the discussion he talked about his dying in August, the hardest thing in his life was to watch her take her last breath. I summarized that he has been a giving person all his life and the bravest gift was to be with his so she didn't have to alone. Plan: He refused getting some treats, word find books, etc. I will follow. Easton Rodrigues RN, PhD, ANTIQUE CLOCKS REPAIRER-JELENAS, CCRN documented in this encounter [facility] Work Phone: 10-19-2023 Plan of care note The patient's goals for the shift include The clinical goals for the shift include Patient will remain HDS Over the shift, the patient remained HDS. Problem: ACS/CP/NSTEMI/STEMI Goal: Chest pain managed (free from pain or at acceptable level) Outcome: Progressing Goal: Lab values return to normal range Outcome: Progressing Goal: Promote self management Outcome: Progressing Goal: Serial ECG will return to baseline Outcome: Progressing Goal: Verbalize understanding of procedures/devices Outcome: Progressing Goal: Wean vasopressors/achieve hemodynamic stability Outcome: Progressing Problem: Arrythmia/Dysrhythmia Goal: Lab values return to normal range Outcome: Progressing Goal: No evidence of post procedure complications Outcome: Progressing Goal: Promote self management Outcome: Progressing Goal: Serial ECG will return to baseline Outcome: Progressing Goal: Verbalize understanding of procedures/devices Outcome: Progressing Goal: Vital signs return to baseline Outcome: Progressing Goal: Care and maintenance of device (specify) Outcome: Progressing Problem: Cardiac catheterization Goal: Free from dysrhythmias Outcome: Progressing Goal: Free from pain Outcome: Progressing Goal: No evidence of post procedure complications Outcome: Progressing Goal: Promote self management Outcome: Progressing Goal: Verbalize understanding of procedure Outcome: Progressing Goal: Care and maintenance of device (specify) Outcome: Progressing Problem: Hypertensive Emergency/Crisis Goal: Blood pressure gradually reduced to goal range Outcome: Progressing Goal: Free from signs of organ damage Outcome: Progressing Goal: Lab values return to normal range Outcome: Progressing Goal: Promote self management Outcome: Progressing [facility] Work Phone: 10-18-2023 Plan of care note Problem: ACS/CP/NSTEMI/STEMI Goal: Chest pain managed (free from pain or at acceptable level) Outcome: Progressing Goal: Lab values return to normal range Outcome: Progressing Goal: Promote self management Outcome: Progressing Goal: Serial ECG will return to baseline Outcome: Progressing Goal: Verbalize understanding of procedures/devices Outcome: Progressing Goal: Wean vasopressors/achieve hemodynamic stability Outcome: Progressing Problem: Arrythmia/Dysrhythmia Goal: Lab values return to normal range Outcome: Progressing Goal: No evidence of post procedure complications Outcome: Progressing Goal: Promote self management Outcome: Progressing Goal: Serial ECG will return to baseline Outcome: Progressing Goal: Verbalize understanding of procedures/devices Outcome: Progressing Goal: Vital signs return to baseline Outcome: Progressing Goal: Care and maintenance of device (specify) Outcome: Progressing Problem: Cardiac catheterization Goal: Free from dysrhythmias Outcome: Progressing Goal: Free from pain Outcome: Progressing Goal: No evidence of post procedure complications Outcome: Progressing Goal: Promote self management Outcome: Progressing Goal: Verbalize understanding of procedure Outcome: Progressing Goal: Care and maintenance of device (specify) Outcome: Progressing Problem: Hypertensive Emergency/Crisis Goal: Blood pressure gradually reduced to goal range Outcome: Progressing Goal: Free from signs of organ damage Outcome: Progressing Goal: Lab values return to normal range Outcome: Progressing Goal: Promote self management Outcome: Progressing The patient's goals for the shift include The clinical goals for the shift include Pt will remain HDS throughout the shift, and prepare for procedure. [facility] 10-18-2023 Plan of care note Problem: ACS/CP/NSTEMI/STEMI Goal: Chest pain managed (free from pain or at acceptable level) Outcome: Progressing Goal: Lab values return to normal range Outcome: Progressing Goal: Promote self management Outcome: Progressing Goal: Serial ECG will return to baseline Outcome: Progressing Goal: Verbalize understanding of procedures/devices Outcome: Progressing Goal: Wean vasopressors/achieve hemodynamic stability Outcome: Progressing The patient's goals for the shift include The clinical goals for the shift include pt will remai HDS and safe throughout this shift Over the shift, the patient did make progress toward the following goals. Pt complained of headache not relieved by tylenol 650 mg po; pt medicated with percocet 1 tab po with relief. Will continue to monitor. [facility] Work Phone: 10-17-2023 Hospital Note Formatting of t his note might be different from the original. Italia Allen is a 68 y.o. male with PMH of HTN, HLD, DM2, morbid obesity, OA and CHF, presented to [facility] with two days of chest pain and worsening SOB and PARSONS. He states that he knows of his CHF for the past 20 years and had a LHC then that did not show obstructive CAD but does not remember if he did an echocardiography then or how much was his EF. At [facility], he was desaturated with 70% O2 sat at RA and his troponin was uptrending. Therefore, he was transferred to [facility] for further workup and management. At [facility], he was treated with IV lasix with significant improvement of his SOB and volume status. He underwent a TTE that was reported to show an EF of 45-50% without significant valvular disease. He also underwent a LHC that showed 3VD with 70-80% stenosis of prox-mid LAD, 90% of OM1 and SHRIMP TRAWLER of prox RCA with collateral filling of the distal RCA from the left system. He was transferred to [facility] to be evaluated for CABG by CT Surgery. Upon presentation, pt without any complaints. During his admission, he continued to report significant improvement in SOB and denied recurrence of CP. CT Surgery was consulted and CABG evaluation. Carotid USwas done as part of his CABG evaluation, which revealed a total occlusion of the right internal carotid artery. Vascular surgery was consulted and no surgical intervention was recommended. Patient with labile mood, emotionally unstable, verbally aggressive, and refusing any phychiatric, spiritual, or therapeutic consultation throughout admission. Patient reports struggling with the grief of losing his last month. Per CTS/Dr. Ruiz, given patients labile emotional/mental state, and concerns about recovery post surgery, decision made not pursue CABG at this time. Interventional Cardiology consulted for PCI evaluation. Per Dr. Wiley, PCI feasible, patient agreeable. Patient taken for staged PCI on 10/22 Elective IVUS guided PCI to Lcx and LAD Orbital atherectomy and scoring balloon used to prepare the LAD lesion. Plan to follow up with Dr. Wiley in 2-3 weeks to schedule for RCA lesion. Follow up appointment with Dr. Wiley is scheduled for 11/13/2023. GDMT optimized as indicated for HFrEF and BP control. Upon review of medications, lab values, and vital signs. Pt was deemed stable for discharge in satisfactory condition. Medications were delivered via meds to beds prior to discharge. No SGLT-2 inhibitor was started due to cost. Can consider starting MRA in the outpatient setting if renal function permits. Discharge weight: 111 kg More than 60 minutes were spent in coordinating patient discharge. [facility] Work Phone: 10-17-2023 Plan of care note Problem: Hypertensive Emergency/Crisis Goal: Blood pressure gradually reduced to goal range Outcome: Progressing Goal: Free from signs of organ damage Outcome: Progressing Goal: Lab values return to normal range Outcome: Progressing Goal: Promote self management Outcome: Progressing Problem: ACS/CP/NSTEMI/STEMI Goal: Chest pain managed (free from pain or at acceptable level) Outcome: Progressing Goal: Lab values return to normal range Outcome: Progressing Goal: Promote self management Outcome: Progressing Goal: Serial ECG will return to baseline Outcome: Progressing Goal: Verbalize understanding of procedures/devices Outcome: Progressing Goal: Wean vasopressors/achieve hemodynamic stability Outcome: Progressing The patient's goals for the shift include The clinical goals for the shift include pt heparin assay will be therapeutic this shift Over the shift, the patient did not make progress toward the following goals. Pt heparin assay was therapeutic x 1, medicated with tylenol 650 mg po x 2 for back pain. [facility] Work Phone: 10-16-2023 Plan of care note The patient's goals for the shift include The clinical goals for the shift include therapeutic on heparin Over the shift, the patient did not make progress toward the following goals. Barriers to progression include subtherapeutic assay. 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s to address these barriers include every 4 hrs til therapeutic. [facility] 10-16-2023 Procedure note Procedure(s): SPIROMETRY Room Air ABG drawn and completed with Spirometry. [facility] 10-16-2023 Procedure note Procedure(s): SPIROMETRY Room Air ABG drawn and completed with Spirometry. documented in this encounter [facility] Work Phone: 10-16-2023 Consult note Associated Order (s): IP CONSULT TO CARDIOTHORACIC SURGERY Reason for Consult: CAD CARDIAC SURGERY CONSULT NOTE HISTORY OF PRESENT ILLNESS Italia Allen is a 68 y.o. male with PMH of HTN, HLD, DM2, Morbid obesity, OA and CHF who initially presented to [facility] with two days of chest pain and worsening SOB and PARSONS. At [facility], he was desaturated with 70% O2 sat at RA and his troponin was uptrending. Therefore, he was transferred to [facility] for further workup and management. At [facility], he was treated with IV lasix with significant improvement of his SOB and volume status. He underwent a TTE that was reported to show an EF of 45-50% without significant valvular disease. He also underwent a LHC that showed 3VD with 70-80% stenosis of prox-mid LAD, 90% of OM1 and SHRIMP TRAWLER of prox RCA with collateral filling of the distal RCA from the left system. He was transferred to [facility] for a CABG evaluation. The patient states his just recently passed ~ 1 month ago, and since then he has had these anxiety attacks with chest pain and shortness of breath. The patient on exam is very tearful, anxious, but denies any complaints. Cardiac surgery consulted for a CABG evaluation. Subjective Past Medical History: Diagnosis Date Diabetes mellitus (Multi) Hyperlipidemia Hypertension No past surgical history on file. Social History Tobacco Use Smoking status: Never Smokeless tobacco: Never No family history on file. Patient has no known allergies. Prior to Admission medications Medication Sig Start Date End Date Taking? Authorizing Provider bumetanide (Bumex) 2 mg tablet Take 1 tablet (2 mg) by mouth once daily. 10/08/23 Yes Historical Provider, diclofenac (Voltaren) 75 mg EC tablet Take 1 tablet (75 mg) by mouth 2 times a day. 10/13/23 Yes Historical Provider, glipiZIDE (Glucotrol) 10 mg tablet Take 1 tablet (10 mg) by mouth 2 times a day before meals. 10/13/23 Yes Historical Provider, insulin detemir (Levemir Flextouch) 100 unit/mL (3 mL) pen Inject 12 Units under the skin 2 times a day. 10/13/23 Yes Historical Provider, insulin glargine (Lantus) 100 unit/mL (3 mL) pen Inject 60 Units under the skin once daily. 10/15/23 Yes Historical Provider, lisinopril 40 mg tablet Take 1 tablet (40 mg) by mouth once daily. 10/13/23 Yes Historical Provider, Review of Systems Review of Systems Constitutional: Negative. HENT: Negative. Eyes: Negative. Respiratory: Negative. Cardiovascular: Negative. Gastrointestinal: Negative. Endocrine: Negative. Genitourinary: Negative. Musculoskeletal: Negative. Neurological: Negative. Hematological: Negative. Psychiatric/Behavioral: The patient is nervous/anxious. Objective BP 157/75 Pulse 98 Temp 36.5 C (97.7 F) Resp 18 Ht 1.778 m (5' 10 ) Wt 113 kg (250 lb 3.6 oz) SpO2 92% BMI 35.90 kg/m 0-10 (Numeric) Pain Score: 3 Vitals: 10/16/23 0051 Weight: 113 kg (250 lb 3.6 oz) Intake/Output Summary (Last 24 hours) at 10/16/2023 1355 Last data filed at 10/16/2023 1300 Gross per 24 hour Intake 939.34 ml Output 1200 ml Net -260.66 ml Physical Exam Physical Exam Constitutional: General: He is not in acute distress. Appearance: He is obese. He is not ill-appearing. HENT: Head: Normocephalic. Mouth/Throat: Mouth: Mucous membranes are moist. Cardiovascular: Rate and Rhythm: Normal rate and regular rhythm. Heart sounds: No murmur heard. Pulmonary: Effort: Pulmonary effort is normal. Breath sounds: Normal breath sounds. Musculoskeletal: General: Normal range of motion. Cervical back: Neck supple. Right lower leg: No edema. Left lower leg: No edema. Skin: General: Skin is warm and dry. Neurological: General: No focal deficit present. Mental Status: He is alert and oriented to person, place, and time. Psychiatric: Comments: Tearful Medications Scheduled medications aspirin, 81 mg, oral, Daily atorvastatin, 80 mg, oral, Nightly [Held by provider] bumetanide, 2 mg, oral, Daily insulin glargine, 30 Units, subcutaneous, Daily insulin lispro, 0-5 Units, subcutaneous, TID insulin lispro, 7 Units, subcutaneous, TID lidocaine, 1 patch, transdermal, Daily metoprolol tartrate, 25 mg, oral, BID mupirocin, , Topical, BID pantoprazole, 40 mg, oral, Daily before breakfast sennosides-docusate sodium, 2 tablet, oral, BID Continuous medications heparin, 0-4,000 Units/hr, Last Rate: 1,200 Units/hr (10/16/23 1145) PRN medications PRN medications: acetaminophen OR [DISCONTINUED] acetaminophen OR [DISCONTINUED] acetaminophen, dextrose, dextrose, glucagon, glucagon, heparin, melatonin, nitroglycerin Labs Results for orders placed or performed during the hospital encounter of 10/15/23 (from the past 24 hour(s)) CBC Result Value Ref Range WBC 9.3 4.4 - 11.3 x10*3/uL nRBC 0.0 0.0 - 0.0 /100 WBCs RBC 3.89 (L) 4.50 - 5.90 x10*6/uL Hemoglobin 11.4 (L) 13.5 - 17.5 g/dL Hematocrit 35.2 (L) 41.0 - 52.0 % MCV 91 80 - 100 fL MCH 29.3 26.0 - 34.0 pg MCHC 32.4 32.0 - 36.0 g/dL RDW 14.6 (H) 11.5 - 14.5 % Platelets 285 150 - 450 x10*3/uL Comprehensive metabolic panel Result Value Ref Range Glucose 173 (H) 74 - 99 mg/dL Sodium 137 136 - 145 mmol/L Potassium 4.3 3.5 - 5.3 mmol/L Chloride 102 98 - 107 mmol/L Bicarbonate 26 21 - 32 mmol/L Anion Gap 13 10 - 20 mmol/L Urea Nitrogen 33 (H) 6 - 23 mg/dL Creatinine 1.64 (H) 0.50 - 1.30 mg/dL eGFR 45 (L) >60 mL/min/1.73m*2 Calcium 8.3 (L) 8.6 - 10.6 mg/dL Albumin 3.3 (L) 3.4 - 5.0 g/dL Alkaline Phosphatase 58 33 - 136 U/L Total Protein 5.6 (L) 6.4 - 8.2 g/dL AST 14 9 - 39 U/L Bilirubin, Total 0.4 0.0 - 1.2 mg/dL ALT 15 10 - 52 U/L aPTT - baseline Result Value Ref Range aPTT 30 27 - 38 seconds Protime-INR Result Value Ref Range Protime 12.5 9.8 - 12.8 seconds INR 1.1 0.9 - 1.1 TSH with reflex to Free T4 if abnormal Result Value Ref Range Thyroid Stimulating Hormone 6.30 (H) 0.44 - 3.98 mIU/L Hemoglobin A1c Result Value Ref Range Hemoglobin A1C 6.8 (H) see below % Estimated Average Glucose 148 Not Established mg/dL Lipid Panel Non-Fasting Result Value Ref Range Cholesterol 114 0 - 199 mg/dL HDL-Cholesterol 25.8 mg/dL Cholesterol/HDL Ratio 4.4 Non-HDL Cholesterol 88 0 - 149 mg/dL Thyroxine, Free Result Value Ref Range Thyroxine, Free 1.20 0.78 - 1.48 ng/dL Iron and TIBC Result Value Ref Range Iron 33 (L) 35 - 150 ug/dL UIBC 252 110 - 370 ug/dL TIBC 285 240 - 445 ug/dL % Saturation 12 (L) 25 - 45 % Ferritin Result Value Ref Range Ferritin 184 20 - 300 ng/mL Vitamin B12 Result Value Ref Range Vitamin B12 201 (L) 211 - 911 pg/mL Folate Result Value Ref Range Folate, Serum 10.0 >5.0 ng/mL Troponin I, High Sensitivity Result Value Ref Range Troponin I, High Sensitivity (CMC) 916 (HH) 0 - 53 ng/L Urinalysis with Reflex Culture and Microscopic Result Value Ref Range Color, Urine Light-Yellow Light-Yellow, Yellow, Dark-Yellow Appearance, Urine Clear Clear Specific [place], Urine 1.026 1.005 - 1.035 pH, Urine 5.0 5.0, 5.5, 6.0, 6.5, 7.0, 7.5, 8.0 Protein, Urine 10 (TRACE) NEGATIVE, 10 (TRACE), 20 (TRACE) mg/dL Glucose, Urine 50 (TRACE) (A) Normal mg/dL Blood, Urine NEGATIVE NEGATIVE Ketones, Urine NEGATIVE NEGATIVE mg/dL Bilirubin, Urine NEGATIVE NEGATIVE Urobilinogen, Urine Normal Normal mg/dL Nitrite, Urine NEGATIVE NEGATIVE Leukocyte Esterase, Urine NEGATIVE NEGATIVE Urinalysis Microscopic Result Value Ref Range WBC, Urine 1-5 1-5, NONE /HPF RBC, Urine NONE NONE, 1-2, 3-5 /HPF Mucus, Urine FEW Reference range not established. /LPF ECG 12 lead Result Value Ref Range Ventricular Rate 85 BPM Atrial Rate 85 BPM [place] Interval 196 ms QRS Duration 100 ms QT Interval 392 ms QTC Calculation(Bazett) 466 ms P [place] 40 degrees R [place] 54 degrees T [place] 51 degrees QRS Count 14 beats Q Onset 222 ms P Onset 124 ms P Offset 185 ms T Offset 418 ms QTC Fredericia 440 ms Platelet count - baseline Result Value Ref Range Platelets 276 150 - 450 x10*3/uL Heparin Assay, UFH Result Value Ref Range Heparin Unfractionated 0.1 See Comment Below for Therapeutic Ranges IU/mL B-type natriuretic peptide Result Value Ref Range BNP 88 0 - 99 pg/mL POCT GLUCOSE Result Value Ref Range POCT Glucose 170 (H) 74 - 99 mg/dL ASSESSMENT & PLAN Italia Allen is a 68 y.o. male with PMH of HTN, HLD, DM2, Morbid obesity, OA and CHF who initially presented to [facility] with two days of chest pain and worsening SOB and PARSONS. At [facility], he was desaturated with 70% O2 sat at RA and his troponin was uptrending. Therefore, he was transferred to [facility] for further workup and management. At [facility], he was treated with IV lasix with significant improvement of his SOB and volume status. He underwent a TTE that was reported to show an EF of 45-50% without significant valvular disease. He also underwent a LHC that showed 3VD with 70-80% stenosis of prox-mid LAD, 90% of OM1 and SHRIMP TRAWLER of prox RCA with collateral filling of the distal RCA from the left system. He was transferred to [facility] for a CABG evaluation. The patient states his just recently passed ~ 1 month ago, and since then he has had these anxiety attacks with chest pain and shortness of breath. The patient on exam is very tearful, anxious, but denies any complaints. Cardiac surgery consulted for a CABG evaluation. RECOMMENDATIONS/PLAN Dr. Ruiz aware of patient, currently reviewing case and available imaging. Further plan pending surgeon review. Emergent cardiac surgery not indicated at this time. LHC and TTE images in Syngo Continue medical optimization per primary team Preop risk stratification studies/labs ordered in EMR by our team --- US Carotids/Vein Mapping/ LE US LUCIO --- PFTs (spirometry and room air ABG) --- 2 view CXR --- MRSA, UA/Culture, LFTs, HgbA1c, TSH/T4, Lipid panel --- Dental evaluation not indicated for isolated CABG surgeries When/if goes to surgery: - Continue ASA, high-intensity statin, and BB (or document contraindications for use) - No ACEi/ARBs in the pre-op period (at least 48 hours) - Hold any SGLT2 inhibitors (Farxiga, Jardiance, etc.) for at least 3 days prior to cardiac surgery to prevent euglycemic DKA - No antiplatelets other than ASA, no anticoagulants other than Heparin - NPO after midnight, blood on hold/T&S, and preop scrubs only to be ordered once OR date is established Will continue to follow along. Thank you for the consultation. Patient educated and all questions answered. Please page the cardiac surgery consult pager [phone] with any questions or changes in patient condition. Ru Elena PA-C Cardiac Surgery Consult [facility] Cardiac Surgery Consult Pager [phone] 10/16/2023 1:55 PM [facility] Work Phone: 10-16-2023 Consult note Associated Order (s): IP CONSULT TO CARDIOTHORACIC SURGERY Reason for Consult: CAD CARDIAC SURGERY CONSULT NOTE HISTORY OF PRESENT ILLNESS Italia Allen is a 68 y.o. male with PMH of HTN, HLD, DM2, Morbid obesity, OA and CHF who initially presented to [facility] with two days of chest pain and worsening SOB and PARSONS. At [facility], he was desaturated with 70% O2 sat at RA and his troponin was uptrending. Therefore, he was transferred to [facility] for further workup and management. At [facility], he was treated with IV lasix with significant improvement of his SOB and volume status. He underwent a TTE that was reported to show an EF of 45-50% without significant valvular disease. He also underwent a LHC that showed 3VD with 70-80% stenosis of prox-mid LAD, 90% of OM1 and SHRIMP TRAWLER of prox RCA with collateral filling of the distal RCA from the left system. He was transferred to [facility] for a CABG evaluation. The patient states his just recently passed ~ 1 month ago, and since then he has had these anxiety attacks with chest pain and shortness of breath. The patient on exam is very tearful, anxious, but denies any complaints. Cardiac surgery consulted for a CABG evaluation. Subjective Past Medical History: Diagnosis Date Diabetes mellitus (Multi) Hyperlipidemia Hypertension No past surgical history on file. Social History Tobacco Use Smoking status: Never Smokeless tobacco: Never No family history on file. Patient has no known allergies. Prior to Admission medications Medication Sig Start Date End Date Taking? Authorizing Provider bumetanide (Bumex) 2 mg tablet Take 1 tablet (2 mg) by mouth once daily. 10/08/23 Yes Historical Provider, diclofenac (Voltaren) 75 mg EC tablet Take 1 tablet (75 mg) by mouth 2 times a day. 10/13/23 Yes Historical Provider, glipiZIDE (Glucotrol) 10 mg tablet Take 1 tablet (10 mg) by mouth 2 times a day before meals. 10/13/23 Yes Historical Provider, insulin detemir (Levemir Flextouch) 100 unit/mL (3 mL) pen Inject 12 Units under the skin 2 times a day. 10/13/23 Yes Historical Provider, insulin glargine (Lantus) 100 unit/mL (3 mL) pen Inject 60 Units under the skin once daily. 10/15/23 Yes Historical Provider, lisinopril 40 mg tablet Take 1 tablet (40 mg) by mouth once daily. 10/13/23 Yes Historical Provider, Review of Systems Review of Systems Constitutional: Negative. HENT: Negative. Eyes: Negative. Respiratory: Negative. Cardiovascular: Negative. Gastrointestinal: Negative. Endocrine: Negative. Genitourinary: Negative. Musculoskeletal: Negative. Neurological: Negative. Hematological: Negative. Psychiatric/Behavioral: The patient is nervous/anxious. Objective BP 157/75 Pulse 98 Temp 36.5 C (97.7 F) Resp 18 Ht 1.778 m (5' 10 ) Wt 113 kg (250 lb 3.6 oz) SpO2 92% BMI 35.90 kg/m 0-10 (Numeric) Pain Score: 3 Vitals: 10/16/23 0051 Weight: 113 kg (250 lb 3.6 oz) Intake/Output Summary (Last 24 hours) at 10/16/2023 1355 Last data filed at 10/16/2023 1300 Gross per 24 hour Intake 939.34 ml Output 1200 ml Net -260.66 ml Physical Exam Physical Exam Constitutional: General: He is not in acute distress. Appearance: He is obese. He is not ill-appearing. HENT: Head: Normocephalic. Mouth/Throat: Mouth: Mucous membranes are moist. Cardiovascular: Rate and Rhythm: Normal rate and regular rhythm. Heart sounds: No murmur heard. Pulmonary: Effort: Pulmonary effort is normal. Breath sounds: Normal breath sounds. Musculoskeletal: General: Normal range of motion. Cervical back: Neck supple. Right lower leg: No edema. Left lower leg: No edema. Skin: General: Skin is warm and dry. Neurological: General: No focal deficit present. Mental Status: He is alert and oriented to person, place, and time. Psychiatric: Comments: Tearful Medications Scheduled medications aspirin, 81 mg, oral, Daily atorvastatin, 80 mg, oral, Nightly [Held by provider] bumetanide, 2 mg, oral, Daily insulin glargine, 30 Units, subcutaneous, Daily insulin lispro, 0-5 Units, subcutaneous, TID insulin lispro, 7 Units, subcutaneous, TID lidocaine, 1 patch, transdermal, Daily metoprolol tartrate, 25 mg, oral, BID mupirocin, , Topical, BID pantoprazole, 40 mg, oral, Daily before breakfast sennosides-docusate sodium, 2 tablet, oral, BID Continuous medications heparin, 0-4,000 Units/hr, Last Rate: 1,200 Units/hr (10/16/23 1145) PRN medications PRN medications: acetaminophen OR [DISCONTINUED] acetaminophen OR [DISCONTINUED] acetaminophen, dextrose, dextrose, glucagon, glucagon, heparin, melatonin, nitroglycerin Labs Results for orders placed or performed during the hospital encounter of 10/15/23 (from the past 24 hour(s)) CBC Result Value Ref Range WBC 9.3 4.4 - 11.3 x10*3/uL nRBC 0.0 0.0 - 0.0 /100 WBCs RBC 3.89 (L) 4.50 - 5.90 x10*6/uL Hemoglobin 11.4 (L) 13.5 - 17.5 g/dL Hematocrit 35.2 (L) 41.0 - 52.0 % MCV 91 80 - 100 fL MCH 29.3 26.0 - 34.0 pg MCHC 32.4 32.0 - 36.0 g/dL RDW 14.6 (H) 11.5 - 14.5 % Platelets 285 150 - 450 x10*3/uL Comprehensive metabolic panel Result Value Ref Range Glucose 173 (H) 74 - 99 mg/dL Sodium 137 136 - 145 mmol/L Potassium 4.3 3.5 - 5.3 mmol/L Chloride 102 98 - 107 mmol/L Bicarbonate 26 21 - 32 mmol/L Anion Gap 13 10 - 20 mmol/L Urea Nitrogen 33 (H) 6 - 23 mg/dL Creatinine 1.64 (H) 0.50 - 1.30 mg/dL eGFR 45 (L) >60 mL/min/1.73m*2 Calcium 8.3 (L) 8.6 - 10.6 mg/dL Albumin 3.3 (L) 3.4 - 5.0 g/dL Alkaline Phosphatase 58 33 - 136 U/L Total Protein 5.6 (L) 6.4 - 8.2 g/dL AST 14 9 - 39 U/L Bilirubin, Total 0.4 0.0 - 1.2 mg/dL ALT 15 10 - 52 U/L aPTT - baseline Result Value Ref Range aPTT 30 27 - 38 seconds Protime-INR Result Value Ref Range Protime 12.5 9.8 - 12.8 seconds INR 1.1 0.9 - 1.1 TSH with reflex to Free T4 if abnormal Result Value Ref Range Thyroid Stimulating Hormone 6.30 (H) 0.44 - 3.98 mIU/L Hemoglobin A1c Result Value Ref Range Hemoglobin A1C 6.8 (H) see below % Estimated Average Glucose 148 Not Established mg/dL Lipid Panel Non-Fasting Result Value Ref Range Cholesterol 114 0 - 199 mg/dL HDL-Cholesterol 25.8 mg/dL Cholesterol/HDL Ratio 4.4 Non-HDL Cholesterol 88 0 - 149 mg/dL Thyroxine, Free Result Value Ref Range Thyroxine, Free 1.20 0.78 - 1.48 ng/dL Iron and TIBC Result Value Ref Range Iron 33 (L) 35 - 150 ug/dL UIBC 252 110 - 370 ug/dL TIBC 285 240 - 445 ug/dL % Saturation 12 (L) 25 - 45 % Ferritin Result Value Ref Range Ferritin 184 20 - 300 ng/mL Vitamin B12 Result Value Ref Range Vitamin B12 201 (L) 211 - 911 pg/mL Folate Result Value Ref Range Folate, Serum 10.0 >5.0 ng/mL Troponin I, High Sensitivity Result Value Ref Range Troponin I, High Sensitivity (CMC) 916 (HH) 0 - 53 ng/L Urinalysis with Reflex Culture and Microscopic Result Value Ref Range Color, Urine Light-Yellow Light-Yellow, Yellow, Dark-Yellow Appearance, Urine Clear Clear Specific [place], Urine 1.026 1.005 - 1.035 pH, Urine 5.0 5.0, 5.5, 6.0, 6.5, 7.0, 7.5, 8.0 Protein, Urine 10 (TRACE) NEGATIVE, 10 (TRACE), 20 (TRACE) mg/dL Glucose, Urine 50 (TRACE) (A) Normal mg/dL Blood, Urine NEGATIVE NEGATIVE Ketones, Urine NEGATIVE NEGATIVE mg/dL Bilirubin, Urine NEGATIVE NEGATIVE Urobilinogen, Urine Normal Normal mg/dL Nitrite, Urine NEGATIVE NEGATIVE Leukocyte Esterase, Urine NEGATIVE NEGATIVE Urinalysis Microscopic Result Value Ref Range WBC, Urine 1-5 1-5, NONE /HPF RBC, Urine NONE NONE, 1-2, 3-5 /HPF Mucus, Urine FEW Reference range not established. /LPF ECG 12 lead Result Value Ref Range Ventricular Rate 85 BPM Atrial Rate 85 BPM [place] Interval 196 ms QRS Duration 100 ms QT Interval 392 ms QTC Calculation(Bazett) 466 ms P [place] 40 degrees R [place] 54 degrees T [place] 51 degrees QRS Count 14 beats Q Onset 222 ms P Onset 124 ms P Offset 185 ms T Offset 418 ms QTC Fredericia 440 ms Platelet count - baseline Result Value Ref Range Platelets 276 150 - 450 x10*3/uL Heparin Assay, UFH Result Value Ref Range Heparin Unfractionated 0.1 See Comment Below for Therapeutic Ranges IU/mL B-type natriuretic peptide Result Value Ref Range BNP 88 0 - 99 pg/mL POCT GLUCOSE Result Value Ref Range POCT Glucose 170 (H) 74 - 99 mg/dL ASSESSMENT & PLAN Italia Allen is a 68 y.o. male with PMH of HTN, HLD, DM2, Morbid obesity, OA and CHF who initially presented to [facility] with two days of chest pain and worsening SOB and PARSONS. At [facility], he was desaturated with 70% O2 sat at RA and his troponin was uptrending. Therefore, he was transferred to [facility] for further workup and management. At [facility], he was treated with IV lasix with significant improvement of his SOB and volume status. He underwent a TTE that was reported to show an EF of 45-50% without significant valvular disease. He also underwent a LHC that showed 3VD with 70-80% stenosis of prox-mid LAD, 90% of OM1 and SHRIMP TRAWLER of prox RCA with collateral filling of the distal RCA from the left system. He was transferred to [facility] for a CABG evaluation. The patient states his just recently passed ~ 1 month ago, and since then he has had these anxiety attacks with chest pain and shortness of breath. The patient on exam is very tearful, anxious, but denies any complaints. Cardiac surgery consulted for a CABG evaluation. RECOMMENDATIONS/PLAN Dr. Ruiz aware of patient, currently reviewing case and available imaging. Further plan pending surgeon review. Emergent cardiac surgery not indicated at this time. LHC and TTE images in [facility]ngo Continue medical optimization per primary team Preop risk stratification studies/labs ordered in EMR by our team --- US Carotids/Vein Mapping/ LE US LUCIO --- PFTs (spirometry and room air ABG) --- 2 view CXR --- MRSA, UA/Culture, LFTs, HgbA1c, TSH/T4, Lipid panel --- Dental evaluation not indicated for isolated CABG surgeries When/if goes to surgery: - Continue ASA, high-intensity statin, and BB (or document contraindications for use) - No ACEi/ARBs in the pre-op period (at least 48 hours) - Hold any SGLT2 inhibitors (Farxiga, Jardiance, etc.) for at least 3 days prior to cardiac surgery to prevent euglycemic DKA - No antiplatelets other than ASA, no anticoagulants other than Heparin - NPO after midnight, blood on hold/T&S, and preop scrubs only to be ordered once OR date is established Will continue to follow along. Thank you for the consultation. Patient educated and all questions answered. Please page the cardiac surgery consult pager [phone] with any questions or changes in patient condition. Ru Elena PA-C Cardiac Surgery Consult [facility] Cardiac Surgery Consult Pager [phone] 10/16/2023 1:55 PM documented in this encounter [facility] Work Phone: 10-16-2023 Plan of care note Problem: ACS/CP/NSTEMI/STEMI Goal: Chest pain managed (free from pain or at acceptable level) Outcome: Progressing Goal: Lab values return to normal range Outcome: Progressing Goal: Promote self management Outcome: Progressing Goal: Serial ECG will return to baseline Outcome: Progressing Goal: Verbalize understanding of procedures/devices Outcome: Progressing Goal: Wean vasopressors/achieve hemodynamic stability Outcome: Progressing Problem: Cardiac catheterization Goal: Free from dysrhythmias Outcome: Progressing Goal: Free from pain Outcome: Progressing Goal: No evidence of post procedure complications Outcome: Progressing Goal: Promote self management Outcome: Progressing Goal: Verbalize understanding of procedure Outcome: Progressing Goal: Care and maintenance of device (specify) Outcome: Progressing The patient's goals for the shift include The clinical goals for the shift include pt will remain HDS and safe throughout this shift Over the shift, the patient did not make progress toward the following goals. Heparin drip @ 10 ml/hr. Medicated with tylenol 650 mg po for back pain and headache. Will continue to monitor. [facility] Work Phone: 10-16-2023 History and physical note History Of Present Illness Italia Allen is a 68 y.o. male with PMH of HTN, HLD, DM2, Morbid obesity, OA and CHF, presented to [facility] with two days of chest pain and worsening SOB and PARSONS. He states that he knows of his CHF for the past 20 years and had a LHC then that did not show obstructive CAD but does not remember if he did an echocardiography then or how much was his EF. At [facility], he was desaturated with 70% O2 sat at RA and his troponin was uptrending. Therefore, he was transferred to [facility] for further workup and management. At [facility], he was treated with IV lasix with significant improvement of his SOB and volume status. He underwent a TTE that was reported to show an EF of 45-50% without significant valvular disease. He also underwent a LHC that showed 3VD with 70-80% stenosis of prox-mid LAD, 90% of OM1 and SHRIMP TRAWLER of prox RCA with collateral filling of the distal RCA from the left system. He was transferred to our hospital to be evaluated for CABG by CTS. At presentation, he feels fine without complaints. Reports significant improvement in SOB and denies CP since his admission at OSH. Past Medical History Past Medical History: Diagnosis Date Diabetes mellitus (Multi) Hypertension Surgical History No past surgical history on file. Social History He reports that he has never smoked. He has never used smokeless tobacco. No history on file for alcohol use and drug use. Family History No family history on file. Allergies Patient has no known allergies. Review of Systems Respiratory: Positive for shortness of breath. Cardiovascular: Positive for chest pain and leg swelling. Physical Exam: Constitutional: Well developed, awake/alert/oriented x3, no distress, cooperative Eyes: PERRL, EOMI, clear sclera ENMT: mucous membranes moist Head/Neck: Neck supple, No JVD Respiratory/Thorax: Good chest expansion, thorax symmetric, lung sounds clear with minimal bibasilar crackles Cardiovascular: Regular rate and rhythm, no murmurs, normal S1 and S2 Gastrointestinal: Nondistended, soft, non-tender, no rebound tenderness or guarding, no masses palpable, no organomegaly, +BS Extremities: +2 BLE edema, no cyanosis, Neurological: alert and oriented x3, intact senses, motor, response and reflexes, normal strength Psychological: Appropriate mood and behavior Skin: Warm and dry, intact. Last Recorded Vitals Blood pressure 114/63, pulse 87, temperature 37.4 C (99.3 F), temperature source Temporal, resp. rate 20, weight 113 kg (250 lb 3.6 oz), SpO2 94%. Relevant Results Per report, - TTE 10/14: EF of 45-50% without significant valvular disease. - LHC 10/14: 3VD. 70-80% stenosis of prox-mid LAD, 90% of OM1 and SHRIMP TRAWLER of prox RCA with collateral filling of the distal RCA from the left system Assessment/Plan Assessment & Plan Acute on chronic systolic (congestive) heart failure (Multi) Hypertension Stage 3a chronic kidney disease (Multi) Type 2 diabetes mellitus without complication (Multi) CAD, multiple vessel NSTEMI (non-ST elevated myocardial infarction) (Multi) 68 y.o. male with PMH of HTN, HLD, DM2, Morbid obesity, OA and CHF, presented with acute on chronic decompensated heart failure and NSTEMI with 3VD on LHC and mild LV systolic dysfunction. Transferred from OSH for CABG evaluation. # ADHF # HFrEF - EF 45-50% - m/p 2/2 ICM however pt states that he has known about CHF for 20 years and had a normal LHC then. No info about previous EF. - obtain TTE images from [facility] - was on IV lasix but looks like he is back to his baseline - will resume bumex 2mg #NSTEMI # 3VD - continue Heparin gtt, aspirin and statins - obtain LHC images from [facility] - CTS consult for CABG #DM - insulin sliding scale #HTN - on lisinopril # CKD - Cr 1.7, stable - no previous info on kidney function- last Cr in 2016 was normal. - behaves like CKD with stable value at OSH - Renal US at OSH on 10/14- no acute findings - stopped NSAIDS I spent 65 minutes in the professional and overall care of this patient. Jarrell Dale MD Associated attestation - Mario Heck MD - 10/16/2023 1:59 PM EDT I saw and evaluated the patient. I personally obtained the bangura and critical portions of the history and physical exam or was physically present for bangura and critical portions performed by the resident/fellow. I reviewed the resident/fellow's documentation and discussed the patient with the resident/fellow. I agree with the resident/fellow's medical decision making as documented in the note. 68 M with HTN, HLD, DM2 who presented to an OSH with chest pain and PARSONS. He was transferred to [facility] where an echo showed EF 45-50% and LHC showed 3VD with reported 70-80% stenosis of the prox-mid LAD, 90% OM1 and SHRIMP TRAWLER of proximal RCA with left to right collaterals. He was transferred for CTS evaluation for CABG. #Multivessel CAD: CT surgery evaluation. Continue aspirin, statin, metoprolol and heparin. #HFmrEF: EF appears around 45-50% on personal review of OSH echo without major valve issues. No clinical evidence of volume overload. Metoprolol as above. Holding GDMT given potential CABG. #CKD: creatinine appears around reported baseline of 1.5. Mario Heck MD [facility] Work Phone: 10-15-2023 Discharge summary Note Date/Time October 15, 2023 6:18pm [facility] [address] [place] [address] Discharge Summary Signed Patient: Italia Allen MR#: [id number] : 1955 Acct:[id number] Age/Sex: 68 / M Adm Date: 4 Loc: Room: [address] [place] [address]: Yovanny Rivera MD Copies to: NON STAFF Yovanny Rivera MD~ Providers Date of Discharge: 10/15/23 Discharging Provider: Yovanny Rivera Primary Care Provider: NON STAFF Consults: 10/14/23 09:25 Consult to Cardiology Routine Comment: Consulting Provider: Ann Henao Reason For Exam: CHF with elevated trop [...] II, HTN, obesity, HFpEF who presentsto the [facility] emergency department with complaints of deep pain [...] recommended for transfer to tertiary care facility ([facility] under Dr. Galdamez) for likely CABG. [...] Actual Procedures p CL LHC & COR Angio - Ann Henao MD Discharge Plan Discharge Plan Patient Disposition: [...] % (Auto) 74.1, Lymph % (Auto) 11.9, [place] % (Auto) 9.3, Eos % (Auto) 3.7, Baso % (Auto) 1.0, Nucleat RBC Rel Count 0.1, Neut # (Auto) 7.3, Lymph # (Auto) 1.2, [place] # (Auto) 0.9 H, Eos # (Auto) [...] signed by Yovanny Rivera MD> 10/15/23 1828 [facility] Work Phone: 1([phone]) 145-264608-26-2024 Progress note Author Ann Henao [facility] October 15, 2023 12:58pm Note Date/Time October 15, 2023 12 :57pm [facility] [address] [place] [address] Cardiology Progress Note Signed Patient: Italia Allen MR#: [id number] : 1955 Acct:[id number] Age/Sex: 68 / M Adm Date: 4 Loc: Room: [address] [place] [address] Type: ADM IN Attending Dr: Yovanny Rivera [...] MPV Neut % (Auto) Lymph % (Auto) [place] % (Auto) Eos % (Auto) Baso % (Auto) Nucleat RBC Rel Count Neut # (Auto) Lymph # (Auto) [place] # (Auto) Eos # (Auto) Baso # [...] % (Auto) 74.1 Lymph % (Auto) 11.9 [place] % (Auto) 9.3 Eos % (Auto) 3.7 Baso % (Auto) 1.0 Nucleat RBC Rel Count 0.1 Neut # (Auto) 7.3 Lymph # (Auto) 1.2 [place] # (Auto) 0.9 H Eos # (Auto) [...] MPV Neut % (Auto) Lymph % (Auto) [place] % (Auto) Eos % (Auto) Baso % (Auto) Nucleat RBC Rel Count Neut # (Auto) Lymph # (Auto) [place] # (Auto) Eos # (Auto) Baso # [...] he understood and agreed Documented By: Ann Henao MD 10/15/231255 Signed By: <Electronically signed by MD Ann Henao> 10/15/23 1258 [facility] Work Phone: 1(820) 238-534608-26-2024 [facility] History and physical note Author Alondra Gonzales [facility] October 14, 2023 3:57pm Note Date/Time October 14, 2023 9: 54am [facility] [address] [place] [address] Hospitalist H&P Signed Patient: Italia Allen MR#: [id number] : 1955 Acct:[id number] Age/Sex: 68 / M Adm Date: 4 Loc: Room: 1Z2950-8 Type: ADM IN Attending Dr: Alondra Gonzales [...] He was brought as a transfer from [facility]. As per ED note at [facility],patient presented to the ED at [facility] with chest pain, described as deep pain [...] or diaphoresis. He showed activity ED at [facility] with oxygen saturation of 70% he was noticed to have bilateral lower extremity edema and he was started on BiPAP as well as was given IV Lopressor 1 dose and was started on heparin drip. His troponin wasuptrending EKG showed sinus tachycardia with no ischemic changes as per [place] records(report not actual tracing). Labs: CBC showed [...] 4 Documented By: Alondra Gonzales MD 10/14/23 1956 Signed By: <Electronically signed by Alondra Gonzales MD> 10/14/23 4704 [facility] Work Phone: [phone]) 927-499008-25-2024 Consult note Author Ann Henao [facility] October 14, 2023 2:55pm Note Date/Time October 14, 2023 2: 51pm [facility] [address] [place] [address] Cardiology Consult Note Signed Patient: Italia Allen MR#: [id number] : 1955 Acct:[id number] Age/Sex: 68 / M Adm Date: 4 Loc: Room: [address] [place] [address] Type: ADM IN Attending Dr: Alondra Gonzales MD Copies to: NON STAFF MD Ann Gordillo MD~ Cardiology HPI History of Present Illness Consult Date: 10/14/23 Reason for Consult: Cardiac consultation requested for evaluation for shortness of breath chest heaviness and acute coronary syndrome HPI: Mr. Allen is a 68 year old male who denies prior cardiac history presented to [facility] emergency room complaining of increasing shortness of breath and chest heaviness. He was evaluated and felt to have evidence of acute coronary syndrome and heart failure and arrangement was made to transfer the patient to [facility] for further care. The patient reports historyof longstanding diabetes mellitus and hypertension. He report over the last fewweeks he has been describing decreased exercise tolerance and dyspnea on exertion. He has seen his family physician on several occasion with adjustment of his medication but without improvement. Prior to presentation to the emergency room at [facility] he developed worsening shortness of breath and [...] (Auto) 0.9 L 0.9 L (1.00-4.8) x10E3/uL [place] # (Auto) 0.6 0.6 (0.0-0.8) x10E3/uL Eos [...] Cardiac catheterization in a.m. Documented By: Ann Henao MD 10/14/23 1448 Signed By: <Electronically signed by MD Ann Henao> 10/14/23 1450 [facility] Work Phone: Evaluation + Plan note Future Appointments Appointment Date:11/29/2023 03:00:00 PM Scheduled Provider: Location:[facility] Appointment Type:URO Nurse Visit Appointment Date:12/04/2023 03:00:00 PM Scheduled Provider:RADHA Grier APRN, [place] X Location:[facility] Appointment Type:URO Office Visit [facility] Evaluation + Plan note Future Appointments Appointment Date:02/21/2024 11:00:00 AM Scheduled Provider:LILLIAM PHAM PA-C Location:[facility] Appointment Type:URO Office Visit [facility] evaluation + Plan note Future Appointments Appointment Date:02/26/2024 11:00:00 AM Scheduled Provider:LILLIAM PHAM PA-C Location:[facility] Appointment Type:URO Office Visit [facility] evaluation note* Diagnosis Onset Date Resolution Status ACS (acute coronary syndrome) acute Acute hypoxic respiratory failure acute Systolic CHF, acute on chronic acute [facility] Work Phone: Evaluation note* Diagnosis Dermatophytosis of nail- Primary Dystrophic nail Other specified disease of nail Angiopathy, diabetic (CMS/HCC) Type II or unspecified type diabetes mellitus with peripheral circulatory disorders, not stated as uncontrolled Diabetic polyneuropathy associated with type 2 diabetes mellitus (CMS/HCC) documented in this encounter [facility] HealthcareEvaluation note* Diagnosis NSTEMI (non-ST elevated myocardial infarction) (Multi)- Primary Acute myocardial infarction, subendocardial infarction, episode of care unspecified NSTEMI (non-ST elevated myocardial infarction) (Multi) Acute myocardial infarction, subendocardial infarction, episode of care unspecified CAD, multiple vessel Acute on chronic systolic (congestive) heart failure Antiplatelet or antithrombotic long-term use Encounter for long-term (current) use of antiplatelets/antithrombotics Right carotid artery occlusion Grief Adjustment disorder with depressed mood Osteoarthritis, unspecified osteoarthritis type, unspecified site Type 2 diabetes mellitus without complication, with long-term current use of insulin (Multi) Stage 3a chronic kidney disease (Multi) Iron deficiency anemia due to chronic blood loss Iron deficiency anemia secondary to blood loss (chronic) CAD, multiple vessel Chronic systolic heart failure Hypertension Unspecified essential hypertension Osteoarthritis Osteoarthrosis, unspecified whether generalized or localized, unspecified site Stage 3a chronic kidney disease (Multi) Type 2 diabetes mellitus without complication (Multi) Grief Adjustment disorder with depressed mood BMI 36.0-36.9,adult Right carotid artery occlusion Mixed hyperlipidemia Acute respiratory failure GERD without esophagitis Esophageal reflux Chronic cough Cough Insomnia Insomnia, unspecified Antiplatelet or antithrombotic long-term use Encounter for long-term (current) use of antiplatelets/antithrombotics Acute coronary syndrome (Multi) Intermediate coronary syndrome Chronic renal insufficiency Chronic kidney disease, unspecified Primary localized osteoarthritis of pelvic region and thigh documented in this encounter [facility] Work Phone: Evaluation note* Diagnosis Acute on chronic systolic (congestive) heart failure (Multi)- Primary CAD, multiple vessel Acute on chronic systolic (congestive) heart failure (Multi) NSTEMI (non-ST elevated myocardial infarction) (Multi) Acute myocardial infarction, subendocardial infarction, episode of care unspecified Shortness of breath Other disorders of arteries, arterioles and capillaries in diseases classified elsewhere ([facility]) Peripheral vascular disease, unspecified ([facility]) Peripheral vascular disease, unspecified Encounter for preprocedural cardiovascular examination Other chronic pain Type 2 diabetes mellitus without complication, with long-term current use of insulin (Multi) Myocardial injury Heart contusion without mention of open wound into thorax Hypertension Unspecified essential hypertension Stage 3a chronic kidney disease (Multi) Type 2 diabetes mellitus without complication (Multi) CAD, multiple vessel NSTEMI (non-ST elevated myocardial infarction) (Multi) Acute myocardial infarction, subendocardial infarction, episode of care unspecified Grief Adjustment disorder with depressed mood documented in this encounter [facility] Work Phone: Evaluation note* Diagnosis CAD, multiple vessel- Primary Primary hypertension Unspecified essential hypertension Chronic systolic heart failure (Multi) Chronic systolic heart failure BMI 36.0-36.9,adult Stage 3a chronic kidney disease (Multi) Right carotid artery occlusion Edema, unspecified type documented in this encounter [facility] Work Phone: Evaluation note* Diagnosis Chronic low back pain without sciatica, unspecified back pain laterality- Primary Primary hypertension Unspecified essential hypertension Edema, unspecified type documented in this encounter [facility] Work Phone: Hospital course Narrative No data available for this section [facility] Hospital Discharge instructions Additional Instructions Full code [facility] Work Phone: Hospital Discharge instructions No data available for this section [facility] Progress note No data available for this section [facility] Reason for referral (narrative)* Consultation (Routine) - Authorized Specialty Diagnoses / Procedures Referred By Gnena t Referred To Contact Cardiology Diagnoses CAD, multiple vessel Procedures Follow Up In Cardiology Ann Henao MD [address] [facility], [address] [address] Ann Henao MD [address] [facility], [facility] [address] [place] [address] Referral ID Status Reason Start Date Expiration Date V isits Requested Visits Authorized [id number] Authorized 11/02/2023 11/01/2024 1 1 [facility] Work Phone: Rewjgb for visit Narrative* Auth/Cert Specialty Diagnoses / Procedures Referred By Genna t Referred To Contact Diagnoses Syncope/NSTEMI Procedures N/A Foster Nolan MD [address] [address] Phone: tel: fax: [facility] [address] [place] [address] Referral ID Status Reason Start Date Expiration Date Visits Re quested Visits Authorized [id number] 1 1 [facility] Work Phone: Reason for visit Narrative* Auth/Cert Specialty Diagnoses / Procedures Referred By Contac t Referred To Contact Diagnoses cabg [place] PhD [address] [place] [address] [email or web address] [address] [place] [address] Referral ID Status Reason Start Date Expiration Date Visits Re quested Visits Authorized [id number] [facility] Work Phone: Chief Complaint and Reason for Visit Chief Complaint CHF, hypoxia Reason for Visit ACS (acute coronary syndrome) Acute hypoxic respiratory failure Systolic CHF, acute on chronic Advance Directives No Advanced Directives Records Found Date Activated Date Inactivated Comments 10/16/2023 12:45 AM Question Answer Comments Plan of Care: Code Status Discussion Completed Decision Maker: Patient Advance Directive Response Recorded Date/ Time Advance Directives No May 30 2:08pm Date Activated Date Inactivated Comments 12/22/2023 11:26 PM Date Activated Date Inactivated Comments 10/16/2023 12:45 AM 12/22/2023 11:26 PM Question Answer Comments Plan of Care: Code Status Discussion Completed Decision Maker: Patient Summary Purpose Family History No Family History Records FoundNo Family History Records Found No data available for this section No Family History Records Found No data available for this section No Family History Records FoundNo Family History Records Found No data available for this section No data available for this section No Family History Records Found Reason for Referral Specialty Diagnoses / Procedures Referred By Contac t Referred To Contact Diagnoses Primary hypertension Procedures [place] [address] [place] [address] [facility] Medicine-Cardiovascular Medicine/[place] [address] Referral ID Status Reason Start Date Expiration Date V isits Requested Visits Authorized [id number] Authorized 11/13/2023 11/12/2024 1 1 Specialty Diagnoses / Procedures Referred By Contac t Referred To Contact Procedures ECG 12 Lead [place]der[place] [id number] [place] [address]-Cardiovascular Medicine/[place] [address] Referral ID Status Reason Start Date Expiration Date V isits Requested Visits Authorized [id number] Authorized 11/13/2023 11/12/2024 1 1 Additional Source Comments Care Teams (unrecognized sec tion and content) Team Status: Active Member Role Status Dates NON STAFF Primary Care Provider Active Team Status: Inactive Member Role Status Dates NON STAFF Primary Care Provider Active Start: October 14, 2023 End: October 15, 2023 Alondra Gonzales MD Admit Provider Active Start: Nick elizabeth 2023 End: October 15, 2023 Ann Henao MD Other Provider Active St art: October 14, 2023 End: October 15, 2023 Yovanny Rivera MD Attending Provider Active Start: October 14, 2023 End: October 15, 2023 Coater Associate Relationship Specialty Start Date End Date Siobhan Forde RN Care Financial Sales Advisor 10/25/23 Coater Associate Relationship Specialty Start Date End Date Siobhan Forde RN Care Financial Sales Advisor 10/25/23 (unrecognized sect ion and content) No Status Records FoundNo Status Records FoundNo Status Records FoundNo Status Records FoundNo Status Records FoundNo Status Records Found INFORMATION SOURCE (unrecogn ized section and content) DATE CREATED AUTHOR 10/19/2023 [facility] DATE CREATED AUTHOR AUTHOR'S ORGANIZ ATION 11/10/2023 [facility] DATE CREATED AUTHOR AUTHOR'S ORGANIZ ATION 12/01/2023 [facility] EPIC DATE CREATED AUTHOR AUTHOR'S ORGANIZ ATION 12/29/2023 [facility] DATE CREATED AUTHOR AUTHOR'S ORGANIZ ATION 12/30/2023 [facility] DATE CREATED AUTHOR AUTHOR'S ORGANIZ ATION 02/22/2024 [facility] Reason for Visit (unrecogniz ed section and content) Reason Comments DM Foot Care 68 yo [employer] pt presents today requesting nail debridement, 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 Haven't been trimmed since last January. PCP: BALWINDER CALDERA 10/2023, A1C: ?, BS: n/a Reason Comments Follow-up TCM 10/23 S/P PCI X 2 Reason Comments new pt Specialty Diagnoses / Procedures Referred By Contac t Referred To Contact Procedures ECG [address] [place] [address] [facility] Department of Medicine-Cardiovascular Medicine/[place] [address] Referral ID Status Reason Start Date Expiration Date V isits Requested Visits Authorized [id number] Authorized 11/13/2023 11/12/2024 1 1 Scheduled Active and Recently Administ ered Medications (unrecognized section and content) Medication Order 12/25/2023 12/26/2023 12/27/2023 amLODIPine (Norvasc) tablet 5 mg 5 mg, oral, Daily, First dose on Symone 12/27/23 at 0900 0929 (Given - Provider: Bessie Crowley RN) aspirin chewable tablet 81 mg 81 mg, oral, Daily, First dose on 12/23/23 at 0900 0815 (Given - Provider: Quynh Hansen RN) 0907 (Given - Provider: Quynh Hansen RN) 0815 (Given - Provider: Bessie Crowley RN) atorvastatin (Lipitor) tablet 80 mg 80 mg, oral, Nightly, First dose on 12/22/23 at 2100 2226 (Given - Provider: Linh Genao LPN - Comment: nurse workflow) 2108 (Given - Provider: Lulú Rosas, RN) 2100 (Due) bumetanide (Bumex) tablet 2 mg 2 mg, oral, 2 times daily (morning and late afternoon), First dose on 12/24/23 at 1700 0815 (Given - Provider: Quynh Hansen RN)1620 (Given - Provider: Quynh Hansen RN) 0907 (Given - Provider: Quynh Hansen RN)1829 (Given - Provider: Quynh Hansen RN) 0815 (Given - Provider: Bessie Crowley RN)1700 (Due) carvedilol (Coreg) tablet 25 mg 25 mg, oral, 2 times daily, First dose on 12/22/23 at 2100 0815 (Given - Provider: Quynh Hansen RN)2226 (Given - Provider: Linh Genao LPN - Comment: nurse workflow) 0907 (Given - Provider: Quynh Hansen RN)2108 (Given - Provider: Lulú Rosas, SWAPNIL) 0815 (Given - Provider: Bessie Crowley, SWAPNIL)2100 (Due) celecoxib (CeleBREX) capsule 200 mg 200 mg, oral, Daily, First dose on 12/23/23 at 0900, Capsules may be opened and sprinkled on a spoonful of cold or room temperature applesauce., On hold since 12/22/2023 at 1356 until manually unheld 0900 (Dose Auto Held) 0900 (Dose Auto Held) 0900 (Not Given - Provider: Bessie Crowley RN - Reason: See Provider Order) docusate sodium (Colace) capsule 100 mg 100 mg, oral, 2 times daily, First dose on 12/22/23 at 1130, Bowel Regimen - for prevention of constipation Hold for loose stools 0830 (Not Given - Provider: Quynh Hansen RN - Reason: Patient/family refused)2226 (Not Given - Provider: Linh Genao LPN - Reason: Patient/family refused) 0918 (Not Given - Provider: Quynh Hansen RN - Reason: Other)212 (Not Given - Provider: Lulú Rosas RN - Reason: Contraindicated) 0815 (Not Given - Provider: Bessie Crowley RN - Reason: Patient/family refused)2100 (Due) enoxaparin (Lovenox) syringe 40 mg 40 mg, subcutaneous, Every 24 hours, First dose on 12/24/23 at 1215, Indications: deep vein thrombosis prevention 1206 (Given - Provider: Quynh Hansen RN) 1222 (Given - Provider: Quynh Hansen RN) 1119 (Given - Provider: Bessie Crowley RN) Glucommander - insulin glargine (Lantus) injection 1-125 Units(Linked Group 1) 1-125 Units, subcutaneous, Nightly, First dose on 12/22/23 at 2100, Order Set Type: Basal/Bolus + Correction, Dose based on: Custom, target range: 140-180 mg/dL (standard for adult patients, patients with renal impairment), Initial start/edit dose: Initial start, Initial TOTAL daily basal dose (range 3 - 100 units). Glucommander will distribute the basal dose based on daily or twice daily order. 40 2249 (Given - Provider: Linh Genao LPN - Comment: nurse workflow) 212 (Given - Provider: Lulú Rosas, SWAPNIL) 2100 (Due) Glucommander - insulin lispro (HumaLOG) injection 0-125 Units(Linked Group 1) 0-125 Units, subcutaneous, 4 times daily with meals and nightly, First dose on 12/22/23 at 1700, Use this MAR entry to document the total bolus dose. The total bolus dose includes the scheduled meal and associated correction dose for meals and bedtime (and midsleep) per Glucommander's dose recommendation. If patient is NPO or unable to eat, administer correction insulin only., Order Set Type: Basal/Bolus + Correction, Initial start/edit dose: Initial start, Initial breakfast bolus dose (insulin lispro 3 - 125 units): 12, Initial lunch bolus dose (insulin lispro 3 - 125 units): 12, Initial dinner bolus dose (insulin lispro 3 - 125 units): 12, Carbs per meal (g): 60 0853 (Not Given - Provider: Quynh Hansen RN - Reason: Order parameters not met - Comment: Perglucommander)123 3 (Given - Provider: Quynh Hansen RN)1756 (Given - Provider: Quynh Hansen RN)2248 (Not Given - Provider: Linh Genao LPN - Reason: Order parameters not met - Comment: BS 118) 0759 (Not Given - Provider: Quynh Hansen RN - Reason: Order parameters not met)1218 (Not Given - Provider: Quynh Hansen RN - Reason: Order parameters not met)1933 (Not Given - Provider: Quynh Hansen RN - Reason: Contraindicated - Comment: Patient instructed to call RN upon tray arrival for BG check. Patient finished tray upon RN arrival at shift change)2125 (Not Given - Provider: Lulú Rosas RN - Reason: Contraindicated) 0959 (Not Given - Provider: Bessie Crowley RN - Reason: Order parameters not met)1409 (Given - Provider: Bessie Crowley, RN)1700 (Due)2100 (Due) iron sucrose (Venofer) injection 200 mg (COMPLETED) 200 mg, intravenous, Administer over 5 Minutes, Daily, First dose on 12/23/23 at 1130, For 5 doses 0815 (Given - Provider: Quynh Hansen RN) 0702 (Given - Provider: Aysha Mcdonald RN) 0627 (Given - Provider: Lulú Rosas, SWAPNIL) lidocaine 4 % patch 1 patch 1 patch, transdermal, Administer over 12 Hours, Daily, First dose on 12/23/23 at 0900, Apply to back. Patch will remain on for 12 hours, then removed for [address] patch directly over any surgical incisions or wounds. 0845 (Not Given - Provider: Quynh Hansen RN - Reason: Patient/family refused) 0908 (Not Given - Provider: Quynh Hansen RN - Reason: Patient/family refused) 0814 (Not Given - Provider: Bessie Crowley RN - Reason: Patient/family refused) lisinopril tablet 40 mg 40 mg, oral, Daily, First dose on Sun12/23/23 at 0900 0815 (Given - Provider: Quynh Hansen RN) 0907 (Given - Provider: Quynh Hansen RN) 0814 (Given - Provider: Bessie Crowley RN) pantoprazole (ProtoNix) injection 40 mg 40 mg, intravenous, 2 times daily, First dose on Sun12/24/23 at 2100 0815 (Given - Provider: Quynh Hansen RN)2240 (Given - Provider: Lulú Rosas RN) 0907 (Given - Provider: Quynh Hansen RN)2107 (Given - Provider: Lulú Rosas RN) 0816 (Given - Provider: Bessie Crowley RN)2100 (Due) perflutren protein A microsphere (Optison) injection 0.5 mL 0.5 mL, intravenous, Once in imaging, Starting on Sun12/24/23 at 1836, For 1 dose, CV Medications polyethylene glycol-electrolytes (Nulytely) solution 4,000 mL (COMPLETED) 4,000 mL, oral, Once, On Sun12/25/23 at 1700, For 1 dose, Reconstitute, drink one glass (8 oz) every 15 minutes until 2 L consumed beginning at 5-6 PM on the day prior to procedure. Drink one glass (8 oz) every 15 minutes until the final 2 L consumed starting at 2 AM the day of the procedure. 1756 (Given - Provider: Quynh Hansen RN) prasugrel (Effient) tablet 10 mg 10 mg, oral, Daily, First dose on Sun12/23/23 at 0900 0901 (Held by provider - Provider: Catia Patton PA-C - Reason: Other)0905 (Unheld by provider - Provider: Catia Patton PA-C)1008 (Given - Provider: Quynh Hansen RN) 0907 (Given - Provider: Quynh Hansen RN) 0814 (Given - Provider: Bessie Crowley, SWAPNIL) sertraline (Zoloft) tablet 100 mg 100 mg, oral, Daily, First dose on 12/23/23 at 0900 0815 (Given - Provider: Quynh Hansen RN) 0907 (Given - Provider: Quynh Hansen RN) 0815 (Given - Provider: Bessie Crowley RN) spironolactone (Aldactone) tablet 50 mg 50 mg, oral, Daily, First dose (after last modification) on Sun12/25/23 at 0900 0815 (Given - Provider: Quynh Hansen RN) 0907 (Given - Provider: Quynh Hansen RN) 0815 (Given - Provider: Bessie Crowley RN) sulfur hexafluoride microsphr (Lumason) injection 24.28 mg 24.28 mg (2 mL), intravenous, Once in imaging, Starting on 12/24/23 at 1836, For 1 dose, CV Medications, Follow administration with 5 mL NaCL 0.9% injection. PRN Medication Order 12/25/2023 12/26/2023 12/27/2023 acetaminophen (Tylenol) tablet 975 mg 975 mg, oral, Every 6 hours PRN, pain mild (1-3), first line, Starting on 12/23/23 at 1021, Administer tablet or oral liquid per patient preference., If ordered PRN for pain, nurse is permitted to administer this medication for higher pain scores based on patient preference? Yes 1021 (Given - Provider: Linh Genao LPN) 0637 (Given - Provider: Lulú Rosas RN)1212 (Given - Provider: Bessie Crowley RN) dextrose 50 % injection 10-50 mL 10-50 mL, intravenous, Every 15 min PRN, for blood glucose less than or equal to 70 mg/dL, Starting on 12/22/23 at 1437, May repeat until Blood Glucose level reaches 70 mg/dL or greater. Push 2 - 3 mL/minute if patient has secure IV access. diclofenac sodium (Voltaren) 1 % gel 4 g 4 g, Topical, 4 times daily PRN, pain mild (1-3), first line, Starting on 12/23/23 at 0035, Apply to back 1040 (Given - Provider: Quynh Hansen, RN) fentaNYL PF (Sublimaze) injection (COMPLETED) intravenous, As needed, Starting on Sun12/26/23 at 1704, Intraprocedure 1704 (Given - Provider: Awais uQiles RN)170 (Given - Provider: Awais Quiles, SWAPNIL)171 (Given - Provider: Awais Quiles RN) glucagon HCL 1 mg 1 mg, intramuscular, Every 15 min PRN, For blood glucose less than or equal to 70 mg/dL and no IV access, Give until blood glucose is 70 mg/dL or greater. If patient DOES NOT HAVE secure IV access & patient is unconscious, NPO or is unable to eat or drink., Starting on 12/22/23 at 1437 Glucommander - insulin lispro (HumaLOG) injection 0-125 Units(Linked Group 1) 0-125 Units, subcutaneous, As needed, per Glucommander correction dose for miscellaneous BG entries, Starting on 12/22/23 at 1439, Administer correction Insulin even if patient is NPO or unable to eat. Use this MAR entry for insulin doses when there is no scheduled MAR entry available. melatonin tablet 5 mg 5 mg, oral, Nightly PRN, sleep, Starting on 12/22/23 at 1115 2108 (Given - Provider: Lulú oRsas, SWAPNIL) midazolam (Versed) injection (COMPLETED) As needed, Starting on Sun12/26/23 at 1704, Intraprocedure 1704 (Given - Provider: Awais Quiles RN)170 (Given - Provider: Awais Quiles RN)171 (Given - Provider: Awais Quiles, SWAPNIL) polyethylene glycol (Glycolax, Miralax) packet 17 g 17 g, oral, Daily PRN, constipation, Starting on 12/22/23 at 1115, Bowel Regimen - for prevention of constipation. 0814 (Not Given - Provider: Bessie Crowley RN - Reason: Patient/family refused) traMADol (Ultram) tablet 50 mg 50 mg, oral, Every 8 hours PRN, pain severe (7-10), first line, Starting on Sun12/23/23 at 0731, Max of 300 mg daily for patients > 75 years of age., If ordered PRN for pain, nurse is permitted to administer this medication for higher pain scores based on patient preference? Yes 1855 (Given - Provider: Quynh Hansen, RN) 09 (Given - Provider: Quynh Hansen, RN)183 (Given - Provider: Quynh Hansen, RN) Linked Groups Order Group 1: Glucommander - insulin glargine (Lantus) injection 1-125 UnitsJump to med 1-125 Units, subcutaneous, Nightly, First dose on 12/22/23 at 2100, Order Set Type: Basal/Bolus + Correction, Dose based on: Custom, target range: 140-180 mg/dL (standard for adult patients, patients with renal impairment), Initial start/edit dose: Initial start, Initial TOTAL daily basal dose (range 3 - 100 units). Glucommander will distribute the basal dose based on daily or twice daily order. 40 And Glucommander - insulin lispro (HumaLOG) injection 0-125 UnitsJump to med 0-125 Units, subcutaneous, 4 times daily with meals and nightly, First dose on 12/22/23 at 1700, Use this MAR entry to document the total bolus dose. The total bolus dose includes the scheduled meal and associated correction dose for meals and bedtime (and midsleep) per [facility]ander's dose recommendation. If patient is NPO or unable to eat, administer correction insulin only., Order Set Type: Basal/Bolus + Correction, Initial start/edit dose: Initial start, Initial breakfast bolus dose (insulin lispro 3 - 125 units): 12, Initial lunch bolus dose (insulin lispro 3 - 125 units): 12, Initial dinner bolus dose (insulin lispro 3 - 125 units): 12, Carbs per meal (g): 60 And Glucommander - insulin lispro (HumaLOG) injection 0-125 UnitsJump to med 0-125 Units, subcutaneous, As needed, per [facility] correction dose for miscellaneous BG entries, Starting on 12/22/23 at 1439, Administer correction Insulin even if patient is NPO or unable to eat. Use this MAR entry for insulin doses when there is no scheduled MAR entry available. And POCT Glucose () 4 times daily before meals and at bedtime, First occurrence on Sun12/22/23 at 1700, Last occurrence on Sun12/25/23 at 1100, For 3 days, Release result to [facility]: Immediate, Please ensure POCT glucose lab frequency matches the insulin lispro frequency above. Scheduled Medication Order 10/22/2023 10/23/2023 10/24/2023 aspirin chewable tablet 81 mg 81 mg, oral, Daily, First dose on Sun10/16/23 at 0900 0824 (Given - Provider: Nesha Patel RN) 08 (Given - Provider: Christine Coyne RN) 827 (Given - Provider: Christine Coyne, SWAPNIL) atorvastatin (Lipitor) tablet 80 mg 80 mg, oral, Nightly, First dose on Sun10/16/23 at 0130 2130 (Given - Provider: Ifrah Snell RN) 2053 (Given - Provider: Lulú Rosas, SWAPNIL) 2099 (Due) bumetanide (Bumex) tablet 2 mg 2 mg, oral, Daily, First dose (after last modification) on Sun10/21/23 at 1115 0824 (Given - Provider: Nesha Patel RN) 818 (Given - Provider: Christine Coyne RN) 827 (Given - Provider: Christine Coyne, SWAPNIL) carvedilol (Coreg) tablet 25 mg 25 mg, oral, 2 times daily, First dose (after last modification) on Sun10/18/23 at 0900 0824 (Given - Provider: Nesha Patel RN)2130 (Given - Provider: Ifrah Snell RN) 818 (Given - Provider: Christine Coyne RN)2053 (Given - Provider: Lulú Rosas, SWAPNIL) 827 (Given - Provider: Christine Coyne RN)2099 (Due) enoxaparin (Lovenox) syringe 40 mg 40 mg, subcutaneous, Every 24 hours, First dose on Sun10/18/23 at 2100, Indications: deep vein thrombosis prevention 2130 (Given - Provider: Ifrah Snell RN) 2053 (Given - Provider: Lulú Rosas, SWAPNIL) 2099 (Due) insulin glargine (Lantus) injection 30 Units 30 Units, subcutaneous, Daily, First dose (after last modification) on Sun10/23/23 at 0900, Patient will be NPO for procedure 0819 (Given - Provider: Christine Coyne RN) 08 (Given - Provider: Christine Coyne RN) insulin glargine (Lantus) injection 60 Units 60 Units, subcutaneous, Daily, First dose (after last modification) on Sun10/22/23 at 0900, On hold since Sun10/22/2023 at 1113 until manually unheld 08 (Given - Provider: Nesha Patel RN)111 (Held by provider - Provider: Italia Cabrera, [employer]PA[employer]ER[employer]ION CAPTAIN, DNP - Reason: NPO) 0900 (Not Given - Provider: Christine Coyne RN - Reason: See Provider Order) 0900 (Not Given - Provider: Christine Coyne RN - Reason: See Provider Order) insulin lispro (HumaLOG) injection 0-10 Units 0-10 Units, subcutaneous, 4 times daily before meals and nightly, First dose (after last modification) on Sun10/21/23 at 0700, Do not hold when patient is not eating, continue order as scheduled for hyperglycemia management. Insulin Lispro Corrective Scale #2 Hypoglycemia protocol Call LIP unit(s) if Blood Glucose is between 0 - 70 mg/dL 0 unit(s) if Blood glucose is between 71-150 2 unit(s) if Blood glucose is between 151-200 4 unit(s) if Blood glucose is between 201-250 6 unit(s) if Blood glucose is between 251-300 8 unit(s) if Blood glucose is between 301-350 10 unit(s) if Blood glucose is between 351-400 Notify provider unit(s) if Blood Glucose is greater than 400 mg/dL 0709 (Not Given - Provider: Nesha Patel RN - Reason: Order parameters not met)1338 (Given - Provider: Nesha Patel RN)1818 (Given - Provider: Nesha Patel RN)2132 (Given - Provider: Ifrah Snell RN) 0645 (Not Given - Provider: Christine Coyne RN - Reason: NPO)1000 (Not Given - Provider: Christine Coyne RN - Reason: NPO)1706 (Not Given - Provider: Christine Coyne RN - Reason: NPO)2056 (Not Given - Provider: Lulú Rosas RN - Reason: Patient/family refused) 0828 (Given - Provider: Christine Coyne RN)1130 (Not Given - Provider: Christine Coyne RN - Reason: Other - Comment: pt being discharged)1600 (Due)2100 (Due) insulin lispro (HumaLOG) injection 7 Units 7 Units, subcutaneous, 3 times daily (morning, midday, late afternoon), First dose on Sun10/16/23 at 0800, Do not hold unless patient is eating <50% of meal or glucose is less than 90 mg/dL within 1 hour before meal. Administer 5 minutes before meal. 0821 (Given - Provider: Nesha Patel RN)1338 (Given - Provider: Nesha Patel RN)1817 (Given - Provider: Nesha Patel RN) 0732 (Not Given - Provider: Christine Coyne RN - Reason: NPO)1121 (Not Given - Provider: Christine Coyne RN - Reason: NPO)1801 (Not Given - Provider: Christine Coyne RN - Reason: Order parameters not met) 0834 (Given - Provider: Christine Coyne RN)1130 (Not Given - Provider: Christine Coyne RN - Reason: Other - Comment: pt being discharged)1700 (Due) lidocaine 4 % patch 1 patch 1 patch, transdermal, Administer over 12 Hours, Daily, First dose on Sun10/16/23 at 1400, Apply to back. Patch will remain on for 12 hours, then removed for [address] patch directly over any surgical incisions or wounds. 0813 (Not Given - Provider: Nesha Patel RN - Reason: Patient/family refused) 0827 (Not Given - Provider: Christine Coyne RN - Reason: Patient/family refused) 0813 (Not Given - Provider: Christine Coyne RN - Reason: Patient/family refused) lisinopril tablet 40 mg 40 mg, oral, Daily, First dose (after last modification) on Sun10/22/23 at 0900 0824 (Given - Provider: Nesha Patel RN) 0819 (Given - Provider: Christine Coyne RN) 0828 (Given - Provider: Christine Coyne RN) pantoprazole (ProtoNix) EC tablet 40 mg(Linked Group 1) 40 mg, oral, Daily before breakfast, First dose on Sun10/16/23 at 0745, Do not crush, chew, or split. 0600 (Given - Provider: Ifrah Snell RN) 0603 (Not Given - Provider: Ifrah Snell RN - Reason: NPO) 0523 (Given - Provider: Lulú Rosas, SWAPNIL) prasugrel (Effient) tablet 10 mg(Linked Group 2) 10 mg, oral, Daily, First dose on Sun10/23/23 at 0900, For 365 days 0819 (Given - Provider: Chritsine Coyne RN) 0828 (Given - Provider: Christine Coyne RN) prasugrel (Effient) tablet 60 mg (COMPLETED)(Linked Group 2) 60 mg, oral, Once, On Sun10/22/23 at 1130, For 1 dose 1534 (Given - Provider: Nesha Patel RN) sennosides-docusate sodium (Toshia-Colace) 8.6-50 mg per tablet 2 tablet 2 tablet, oral, 2 times daily, First dose on Sun10/16/23 at 0900, Bowel Regimen - for prevention of constipation Hold for loose stools 0813 (Not Given - Provider: Nesha Patel RN - Reason: Patient/family refused)2131 (Not Given - Provider: Ifrah Snell RN - Reason: Patient/family refused) 0810 (Not Given - Provider: Christine Coyne RN - Reason: Patient/family refused)2056 (Not Given - Provider: Lulú Rosas, SWAPNIL - Reason: Patient/family refused) 0814 (Not Given - Provider: Christine Coyne RN - Reason: Patient/family refused)2100 (Due) sodium chloride 0.9 % bolus 500 mL (COMPLETED) 500 mL, intravenous, at 125 mL/hr, Administer over 4 Hours, Once, On Sun10/23/23 at 1730, For 1 dose 1726 (New Bag - Provider: Christine Coyne RN)1808 (Rate/Dose Verify - Provider: Christine Coyne RN)2056 (Stopped - Provider: Lulú Rosas, SWAPNIL) Continuous Medication Order 10/22/2023 10/23/2023 10/24/2023 sodium chloride 0.9% infusion () 125 mL/hr, intravenous, Continuous, Starting on Sun10/23/23 at 1115, For 3 hours 1126 (New Bag - Provider: Jostin Villalobos, SWAPNLI)1413 (Stopped - Provider: Christine Coyne, RN) PRN Medication Order 10/22/2023 10/23/2023 10/24/2023 acetaminophen (Tylenol) tablet 975 mg(Linked Group 3) 975 mg, oral, Every 6 hours PRN, pain mild (1-3), first line, Starting on Symone 10/18/23 at 1847, Administer tablet or oral liquid per patient preference., If ordered PRN for pain, nurse is permitted to administer this medication for higher pain scores based on patient preference? Yes 0031 (Given - Provider: Ifrah Snell RN)0824 (Given - Provider: Nesha Patel RN)1752 (Given - Provider: Nesha Patel RN) 0004 (Given - Provider: Ifrah Snell RN)0826 (Given - Provider: Christine Coyne RN)1830 (Given - Provider: Christine Coyne, SWAPNIL) 0523 (Given - Provider: Lulú Rosas RN) dextrose 50 % injection 12.5 g 12.5 g, intravenous, Every 15 min PRN, For blood glucose 41 to 70 mg/dL, Starting on Sun10/16/23 at 0728, May repeat until blood glucose level reaches 100 mg/dL or greater. Push 2 - 3 mL/minute if patient has secure IV access. dextrose 50 % injection 12.5 g 12.5 g, intravenous, Every 15 min PRN, For blood glucose 41 to 70 mg/dL, Starting on Sun10/22/23 at 1112, May repeat until blood glucose level reaches 100 mg/dL or greater. Push 2 - 3 mL/minute if patient has secure IV access. dextrose 50 % injection 25 g 25 g, intravenous, Every 15 min PRN, For blood glucose less than or equal to 40 mg/dL, Starting on Sun10/16/23 at 0728, May repeat until blood glucose level reaches 100 mg/dL or greater. Push 2 - 3 mL/minute if patient has secure IV access. diclofenac sodium (Voltaren) 1 % gel 4 g 4 g, Topical, 4 times daily PRN, pain mild (1-3), first line, Starting on Sun10/18/23 at 0948, Apply to areas of pain. 0004 (Given - Provider: Ifrah Snell RN) fentaNYL PF (Sublimaze) injection (CANCELED) As needed, Starting on Sun10/23/23 at 1507, Intraprocedure 1507 (Given - Provider: Samara Umana RN)1559 (Given - Provider: Samara Umana RN)1609 (Given - Provider: Samara Umana, RN)1626 (Given - Provider: Samara Umana RN) glucagon (Glucagen) injection 1 mg 1 mg, intramuscular, Every 15 min PRN, blood glucose less than or equal to 40 mg/dL - see comments, For blood glucose less than or equal to 40 mg/dL and no IV access, Starting on Sun10/16/23 at 0728, Give until blood glucose is 100 mg/dL or greater. If patient DOES NOT HAVE secure IV access & patient is unconscious, NPO or is unable to eat or drink. glucagon (Glucagen) injection 1 mg 1 mg, intramuscular, Every 15 min PRN, blood glucose 41 to 70 mg/dL - see comments, For blood glucose 41 to 70 mg/dL and no IV access, Starting on Sun10/22/23 at 1112, Give until blood glucose is 100 mg/dL or greater. If patient DOES NOT HAVE secure IV access & patient is unconscious, NPO or is unable to eat or drink. heparin 1,000 unit/mL injection (CANCELED) As needed, Starting on Sun10/23/23 at 1511, Intraprocedure 1511 (Given - Provider: Samara Umana RN)1558 (Given - Provider: Samara Umana, SWAPNIL)1643 (Given - Provider: Samara Umana RN) iohexol (OMNIPaque) 300 mg iodine/mL solution (CANCELED) As needed, Starting on Sun10/23/23 at 1630, Intraprocedure 1630 (Given - Provider: Sahil Wiley MD) lidocaine (Xylocaine) 20 mg/mL (2 %) injection (CANCELED) As needed, Starting on Sun10/23/23 at 1507, Intraprocedure 1507 (Given - Provider: Sahil Wiley MD - Comment: right radial) melatonin tablet 3 mg 3 mg, oral, Nightly PRN, sleep, Starting on Sun10/16/23 at 0044 0005 (Given - Provider: Ifrah Snell RN)7 (Not Given - Provider: Lulú Rosas RN - Reason: Patient/family refused) midazolam (Versed) injection (CANCELED) As needed, Starting on Sun10/23/23 at 1508, Intraprocedure 1508 (Given - Provider: Samara Umana, SWAPNIL) nitroglycerin (Nitrostat) SL tablet 0.4 mg 0.4 mg, sublingual, Every 5 min PRN, chest pain, Starting on Sun10/16/23 at 0728, May administer up to 3 doses per episode. nitroglycerin (Tridil) 200 mcg, verapamil (Isoptin) 1 mg injection (CANCELED) As needed, Starting on Sun10/23/23 at 1509, Intraprocedure 1509 (Given - Provider: Sahil Wiley MD - Comment: right radial) nitroglycerin (Tridil) injection (CANCELED) As needed, Starting on Sun10/23/23 at 1541, Intraprocedure 1541 (Given - Provider: Sahil Wiley MD) oxygen (O2) therapy (COMPLETED) Continuous PRN, Starting on Sun10/23/23 at 1456, Intraprocedure 1456 (New Bag - Provider: Terrence Duarte RN) sodium chloride 0.9% infusion (COMPLETED) Continuous PRN, Starting on Sun10/23/23 at 1506, Intraprocedure 1506 (New Bag - Provider: Terrence Duarte RN) traMADol (Ultram) tablet 25 mg 25 mg, oral, Every 8 hours PRN, pain severe (7-10), first line, Starting on Sun10/21/23 at 1044, Max of 300 mg daily for patients > 75 years of age., If ordered PRN for pain, nurse is permitted to administer this medication for higher pain scores based on patient preference? Yes 31 (Given - Provider: Ifrah Snell RN)08 (Given - Provider: Nesha Patel RN)1752 (Given - Provider: Nesha Patel RN) 0826 (Given - Provider: Christine Coyne, RN)1830 (Given - Provider: Christine Coyne RN) 0523 (Given - Provider: Lulú Rosas RN) Linked Groups Order Group 1: pantoprazole (ProtoNix) EC tablet 40 mgJump to med 40 mg, oral, Daily before breakfast, First dose on Sun10/16/23 at 0745, Do not crush, chew, or split. Or pantoprazole (ProtoNix) injection 40 mg (CANCELED) 40 mg, intravenous, Daily before breakfast, First dose on Sun10/16/23 at 0745, Give only if unable to tolerate po. Group 2: prasugrel (Effient) tablet 60 mg (COMPLETED)Jump to med 60 mg, oral, Once, On Sun10/22/23 at 1130, For 1 dose Followed by prasugrel (Effient) tablet 10 mgJump to med 10 mg, oral, Daily, First dose on Sun10/23/23 at 0900, For 365 days Group 3: acetaminophen (Tylenol) tablet 975 mgJump to med 975 mg, oral, Every 6 hours PRN, pain mild (1-3), first line, Starting on Sun10/18/23 at 1847, Administer tablet or oral liquid per patient preference., If ordered PRN for pain, nurse is permitted to administer this medication for higher pain scores based on patient preference? Yes FOR RECORDS PERTAINING TO PATIENTS WHO ARE [...] BE BASED ON THE PRIMARY CLINICAL RECORDS. [employer] provides no warranty or guarantee of the accuracy or completeness of information in this document.
--- NOTE | 2024-02-29 06:45 | ED.MALEGU1 ---
HPI - Male Genitourinary General Chief complaint: Urogenital-Male Stated complaint: CATHETER ISSUE Time Seen by Provider: 02/29/24 06:44 Source: patient Mode of arrival: ambulance Limitations: no limitations History of Present Illness HPI Narrative: This patient is transferred from the [facility] where he is currently receiving rehab for evaluation of a Seals catheter that the nurses were unable to remove. The patient fell out of bed yesterday and in doing so stretched the Seals catheter. It did not completely come out. He states it was painful at that time. The Seals catheter has not been draining since that time and the nurse at the assisted tried to remove it to replace it but was unable to remove it. He states he has not had any urine output in his Seals catheter since that time. He is being seen and evaluated for chronic lower extremity ulcers at the assisted and is being seen by podiatry and wound care according to him. No additional complaints are noted. Related Data Home Medications ?Medication ?Instructions ?Recorded ?Confirmed aspirin 81 mg chewable tablet 81 mg PO DAILY 11/19/23 02/21/24 (Aspirin Childrens) atorvastatin 80 mg tablet 80 mg PO .qhs 11/19/23 02/21/24 nitroglycerin 0.4 mg sublingual 0.4 mg sublingual Q5M PRN chest 11/19/23 02/21/24 tablet pain prasugrel 10 mg tablet 10 mg PO DAILY 11/19/23 02/21/24 glipizide 5 mg tablet 5 mg PO QAM 12/19/23 02/21/24 insulin glargine-yfgn 100 unit/mL 60 unit subcut DAILY 12/19/23 02/21/24 (3 mL) subcutaneous pen (Semglee (insulin glargine-yfgn) Pen) tamsulosin 0.4 mg capsule 0.4 mg PO .QHS 12/19/23 02/21/24 bumetanide 2 mg tablet 1 mg PO QAM 01/27/24 02/21/24 omeprazole 40 mg capsule,delayed 40 mg PO .ACB 01/27/24 02/21/24 release sertraline 100 mg tablet 100 mg PO QAM 01/27/24 02/21/24 spironolactone 25 mg tablet 100 mg PO .ACB 01/27/24 02/21/24 bupropion HCl 150 mg 24 hr tablet, 300 mg PO DAILY 02/06/24 02/21/24 extended release (Wellbutrin XL) mirtazapine 15 mg tablet (Remeron) 15 mg PO DAILY 02/06/24 02/21/24 bupropion HCl 300 mg 24 hr tablet, 300 mg PO QAM 02/21/24 02/21/24 extended release (Wellbutrin XL) melatonin 5 mg capsule mg PO DAILY 02/21/24 metoclopramide HCl 5 mg tablet 5 mg PO BID 02/21/24 02/21/24 (Reglan) midodrine 5 mg tablet 5 mg PO BID 02/21/24 02/21/24 Previous Rx's ?Medication ?Instructions ?Recorded iron polysacch cplx 150 mg 1 cap PO BID #60 caps 01/30/24 iron-vit B12 25 mcg-folic acid 1 mg capsule (Ferrex) Allergies Allergy/AdvReac Type Severity Reaction Status Date / Time No Known Drug Allergies Allergy Verified 02/29/24 06:20 Review of Systems ROS Status of ROS 10 or more systems reviewed and unremarkable except as noted in history and below [facility] Medical History (Updated 02/29/24 @ 06:45 by Rebecca Montemayor MD) Non-ST elevation (NSTEMI) myocardial infarction ?I21.4 - Non-ST elevation (NSTEMI) myocardial infarction (ICD-10) Syncope and collapse ?R55 - Syncope and collapse (ICD-10) Chronic respiratory failure with hypoxia ?J96.11 - Chronic respiratory failure with hypoxia (ICD-10) CKD stage 3 due to type 2 diabetes mellitus ?E11.22 - Type 2 diabetes mellitus with diabetic chronic kidney disease (ICD-10) ?N18.30 - Chronic kidney disease, stage 3 unspecified (ICD-10) CAD (coronary artery disease) ?I25.10 - Atherosclerotic heart disease of [place] coronary artery without angina pectoris (ICD-10) Diabetes ?E11.9 - Type 2 diabetes mellitus without complications (ICD-10) Hypertension ?I10 - Essential (primary) hypertension (ICD-10) CHF (congestive heart failure) ?I50.9 - Heart failure, unspecified (ICD-10) Surgical History Hx of cholecystectomy ?Z90.49 - Acquired absence of other specified parts of digestive tract (ICD-10) H/O heart artery stent ?Z95.5 - Presence of coronary angioplasty implant and graft (ICD-10) Family History Mother Family history of CHF (congestive heart failure) Family history of diabetes mellitus Father Family history of cancer Social History Within the past year, how often did you have a drink containing alcohol: monthly or less Smoking status: Never smoker Non-prescribed substance use: denies use Previous occupational history: retired Highest level of school completed/degree received: high school graduate Are you now , , , , never or living with a partner: In a typical week, how many times do you talk on the telephone with family, friends, or neighbors: 3 or more times per week How often do you get together with friends or relatives: 3 or more times per week How often do you attend taoism or religion services: never Little interest or pleasure in doing things: not at all Feeling down, depressed, or hopeless: not at all Feel stressed/tense/nervous/anxious/difficulty sleeping: not at all Do you think of yourself as: straight/heterosexual Gender Identity: male Exam Narrative Exam Narrative: Vital signs and Nursing Notes reviewed: Patient is afebrile, he is mildly tachycardic with a pulse of 111, blood pressure is moderately low at 96/54, he is not hypoxic with pulse ox of 97% on room air General: Awake, alert, oriented, no acute distress, lying comfortably on the stretcher HEENT: Normocephalic atraumatic, mucous membranes are moist and pink, eyes are clear, normal conjunctiva, vision is grossly intact Chest: Lungs are clear to auscultation with good air entry, there is no wheezing rhonchi or rales appreciated no accessory muscle use, patient is speaking in complete sentences-no chest wall tenderness to palpation CVS: Regular rate and rhythm S1-S2, no murmurs rubs or gallops, pulses are brisk and equal bilaterally ABD: There is fullness over the urinary bladder and lower abdomen consistent with urinary retention. : A Seals catheter is in the urethra. There is no urine in the tubing or bag Extremities: Moving all extremities, 1-2+ lower extremity swelling, appears chronic in nature, lower legs are wrapped in dressings. The right great toe has a black eschar over the distal end of the toe. Feet are otherwise warm and sensate Skin: Normal in appearance without rash,pallor, petechiae or purpura Neuro: No focal deficits Constitutional Vital Signs, click to edit/add: Last Vital Signs Temp 98.6 F 02/29/24 06:20 Pulse 111 H 02/29/24 06:20 Resp 20 02/29/24 06:20 BP 96/54 02/29/24 06:20 Pulse Ox 97 02/29/24 06:20 O2 Del Method Room Air 02/29/24 06:20 Course Vital Signs Vital signs: Vital Signs Temperature 98.6 F 02/29/24 06:20 Pulse Rate 111 H 02/29/24 06:20 Respiratory Rate 20 02/29/24 06:20 Blood Pressure 96/54 02/29/24 06:20 Pulse Oximetry 97 02/29/24 06:20 Oxygen Delivery Method Room Air 02/29/24 06:20 Temperature 98.6 F 02/29/24 06:20 Pulse Rate 111 H 02/29/24 06:20 Respiratory Rate 20 02/29/24 06:20 Blood Pressure 96/54 02/29/24 06:20 Pulse Oximetry 97 02/29/24 06:20 Oxygen Delivery Method Room Air 02/29/24 06:20 MDM - Male Genitourinary MDM Narrative Medical decision making narrative: This 68-year-old male who is currently in rehab since his in August and he has been too weak to walk and is being treated for lower extremity ulcers and generalized weakness presents for evaluation after he fell out of bed yesterday. The patient states that he fell out of bed to the right and his Seals catheter was attached to the bed on the left. This caused the Seals catheter to stretch and become dislodged. The nurse at the [facility] tried to remove the Seals catheter and replace it or reposition it but was unable to move it and he was sent to the emergency department for further evaluation. The Seals catheter was initially difficult to remove. I irrigated it with normal saline which may have loosened it up somewhat because after that I was able to remove the water in the balloon and gently remove the Seals catheter. The end of the Seals catheter appears to be in the distal urethra. After I irrigated it, urine immediately came out of the patient's urethra after the Seals catheter was removed. A new Esals catheter was replaced by myself under sterile conditions. The patient tolerated the procedure well and will be returned to the assisted for further evaluation and treatment. Discharge Plan Discharge Chief Complaint: Urogenital-Male Clinical Impression: Displacement of Seals catheter Patient Disposition: Home, Self-Care Time of Disposition Decision: 06:45 Condition: Good Prescriptions / Home Meds: No Action tamsulosin 0.4 mg capsule 0.4 mg PO .QHS insulin glargine-yfgn [Semglee(insulin glarg-yfgn)Pen] 100 unit/mL (3 mL) insulin pen 60 unit SUBCUT DAILY glipizide 5 mg tablet 5 mg PO QAM mirtazapine [Remeron] 15 mg tablet 15 mg PO DAILY bupropion HCl [Wellbutrin XL] 150 mg tablet extended release 24 hr 300 mg PO DAILY midodrine 5 mg tablet 5 mg PO BID Rx Instructions: do not give last dose of day after 6PM or within 4 hrs of bedtime bupropion HCl [Wellbutrin XL] 300 mg tablet extended release 24 hr 300 mg PO QAM metoclopramide HCl [Reglan] 5 mg tablet 5 mg PO BID melatonin 5 mg capsule PO DAILY atorvastatin 80 mg tablet 80 mg PO .qhs prasugrel 10 mg tablet 10 mg PO DAILY aspirin [Aspirin Childrens] 81 mg tablet,chewable 81 mg PO DAILY nitroglycerin 0.4 mg tablet, sublingual 0.4 mg sublingual Q5M PRN (Reason: chest pain) spironolactone 25 mg tablet 100 mg PO .ACB omeprazole 40 mg capsule,delayed release(DR/EC) 40 mg PO .ACB sertraline 100 mg tablet 100 mg PO QAM bumetanide 2 mg tablet 1 mg PO QAM Rx Instructions: AN ADDITIONAL TABLET IN THE AFTERNOON ON , SUN Ferrex 150 Forte 150-25-1 mg-mcg-mg Capsule 1 cap PO BID Qty: 60 11RF Print Language: [place]an Instructions: Seals Catheter Placement and Care (ED) Referrals: Samara Schultz NP [Primary Care Provider] - 1 week Discharge Date/Time: 02/29/24 08:58 Procedures ED Procedure Instructions Procedures Procedures: Seals catheter removal/replacement. The Seals catheter was irrigated with normal saline and the balloon was deflated. The catheter was then easily removed. The Seals catheter was then replaced by myself under sterile conditions. Patient tolerated procedure well. There was no bleeding or other notable abnormality.
== END 2024-02-29 08:58 | disposition home or self-care (01) ==
PROVIDERS: Emergency Provider Emergency Medicine; PCP Nurse Practitioner Family
DX: T83.028A Displacement of other urinary catheter, initial encounter (principal); R33.9 Retention of urine, unspecified; Z90.49 Acquired absence of other specified parts of digestive tract; Z95.5 Presence of coronary angioplasty implant and graft
CPT/HCPCS: 99284

== ENCOUNTER 2024-03-05 07:33 | Outpatient (RCR) | payer MEDICARE, SELFPAY ==
[2024-02-21 09:38] VITALS: BP 99/55; PULSE 118; TEMP 35; O2SAT 95
[2024-02-21] MEDS: 0.9 % SODIUM CHLORIDE 250 ML 10 ML IV (10:00)
[2024-02-21 10:21] LABS: Hemoglobin 6.6 g/dL (14.0-18.0)
--- NOTE | 2024-02-21 10:58 | PC.NURSE ---
Resting quietly with eyes closed.
[2024-02-21 11:05] VITALS: BP 122/69; PULSE 102; TEMP 36.9; O2SAT 99
--- NOTE | 2024-02-21 11:17 | PC.NURSE ---
1115: Pt. drowsy. Pt had taken 1000mg po Tylenol this a.m., no Tylenol given pre-transfusion. Benadryl held due to sedation. 1 unit PRBC initiated at this time. IV site without s&s of infiltration. Pt. denies needs.
[2024-02-21 11:30] VITALS: BP 133/75; PULSE 94; TEMP 36.6; O2SAT 99
--- NOTE | 2024-02-21 11:44 | PC.NURSE ---
1130: Tolerating transfusion without adverse reactions. Given sips of juice. Denies needs.
[2024-02-21 12:15] VITALS: BP 156/82; PULSE 94; TEMP 37.1; O2SAT 97
[2024-02-21 12:55] VITALS: BP 153/84; PULSE 96; TEMP 36.8; O2SAT 97
[2024-03-05 08:14] VITALS: BP 115/71; PULSE 116; TEMP 36.4; O2SAT 92
--- NOTE | 2024-03-05 08:17 | PC.NURSE ---
0800 Arrival per w/c from [facility] for Blood transfusion. Alert oriented, color pales skin warm and dry. Transferred per 2 to bed with maximum assistants. Heart tones tachy/strong and regular. Lungs clear to auscultation. No peripheral edema noted. Seals patent and draining cloudy yellow urine.
--- NOTE | 2024-03-05 08:30 | PC.NURSE ---
labs drawn with IV start. patient instructed on s/s of reaction, chest pain shortness of breath, flank/back pain itching etc instructed to notify staff. verbalizes understaning. offered breakfast, patient declines at this time
[2024-03-05] MEDS: 0.9 % SODIUM CHLORIDE 250 ML 10 ML IV (08:32)
[2024-03-05] MEDS: DIPHENHYDRAMINE HCL 25 MG CAPSULE PO (08:44)
[2024-03-05] MEDS: ACETAMINOPHEN 325 MG TABLET 650 MG PO (08:45)
[2024-03-05 08:46] LABS: Hematocrit 22.9 % (42.0-54.0); Hemoglobin 6.9 g/dL (14.0-18.0)
[2024-03-05 09:41] VITALS: BP 115/71; PULSE 116; TEMP 35.8; O2SAT 92
[2024-03-05 10:10] VITALS: BP 130/78; PULSE 102; TEMP 36.7; O2SAT 97
[2024-03-05 11:08] VITALS: BP 130/78; PULSE 100; TEMP 36.4; O2SAT 96
--- NOTE | 2024-03-05 11:09 | PC.NURSE ---
1105 prbc infused, ns flush began, tolerated well without s/s of rxn. Ate cheese and cracker plate
== END 2024-03-21 23:59 | disposition home or self-care (01) ==
LOC: INF 07:33
PROVIDERS: PCP Nurse Practitioner Family; Visit Provider Family Medicine
DX: K92.2 Gastrointestinal hemorrhage, unspecified (principal)
CPT/HCPCS: 36415; 36430; 85014; 85018; 86850; 86900; 86901; 86923; P9016

== ENCOUNTER 2024-04-03 07:12 | Day surgery (SDC) | payer OTHER, SELFPAY ==
--- OUTSIDE RECORDS SUMMARY | 2024-04-03 07:18 | XMS_ITS | CCD ---
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 Name Role Phone NON STAFF Primary Care Provider UnavailMD Alondra Rodriguez Admit Provider MD Ann Henao Other Provider MD Yovanny Rivera Attending Provider Alondra Gonzales Admitting Unavailable NON STAFF Primary Care Unavailable Yovanny Rivera Attending Unavailab Ann Zamarripa Consulting Unavailable ANN HENAO Attending Unavailable SAMARA VILLASEÑOR Primary Care Physician [phone] FATEMEH COLEMAN Attending Unavailable Unavailable Primary Care Provider Unavailrc flores Unavailable Primary Care Provider UnavailANN Cabral Referring Unavailable MAROI HECK Admitting Unavailable MELLY BENÍTEZ Attending Unavailable LORIN BUSH Consulting Unavailable SAHIL WILEY Attending Unavailable INDERJIT MICHELLE Referring Unavailable FOSTER NOLAN Admitting Unavailable DENIZ GRIGSBY Referring Unavailable SHERRI ARMSTRONG Attending Unavailable LORIN BUSH Consulting Unavailable Siobhan Forde RN Unavailable Unavailable Marine Grier Attending Unavailable LILLIAM PHAM Attending Unavailable Marine Grier Attending Unavailable LILLIAM PHAM Attending Unavailable Orsobia Marine X Attending Unavailable LILLIAM PHAM Attending Unavailable Allergies Allergy Classification Reported Allergen(s) Allergy Type Date of Onset Reaction(s) Facility (1 source) No Known Medication Allergies; Translations: [No Known Medication Allergies] Propensity to adverse reactions (disorder) [facility] Repository Medications Current Medications Medication Drug [...] at 0900 aspirin 81 mg oral capsule (14 sources) Platelet Aggregation Inhibitor, Nonsteroidal Anti-inflammatory Drug [...] 10/15/2023 Active atorvastatin 80 mg oral tablet (13 sources) HMG-CoA Reductase Inhibitor Start: 10-16-2023 End: 01-22-2024 take 1 tablet by mouth once daily atorvastatin 80 mg Tab 80 mg = 1 tab(s), Oral, Daily Start Date: 11/22/23 Status: Ordered Basaglar KwikPen (1 source) Start: 02-26-2024 Basaglar KwikP en See Instructions, Refills(s) 0 Start Date: 02/26/24 Status: Ordered bumetanide 2 mg oral tablet (20 sources) Loop Diuretic Start: 12-24-2023 take 2 mg by mouth twice daily 2 mg, oral, 2 times daily (morning and late afternoon), First dose on Sun12/24/23 at 1700 Start: 12-23-2023 End: 12-24-2023 2 [...] 2023. 30 tablet 2 11/28/2023 11/27/2024 Active 24 hr buPROPion hydrochloride 300 mg extended release oral tablet (1 source) Aminoketone Start: 02-26-2024 take 300 mg by mouth once daily Wellbutrin XL 300 mg, Oral, Daily, Refills(s) 0 Start Date: 02/26/24 Status: Ordered carvedilol 25 mg oral tablet (13 sources) [...] stools docusate sodium 50 mg / sennosides, retirement 8.6 mg oral tablet (1 source) Start: [...] 2023 12:00am glipiZIDE 5 mg oral tablet (12 sources) Sulfonylurea Start: 11-22-2023 take 1 tablet by mouth once daily glipiZIDE 5 mg Tab 5 mg = 1 tab(s), Oral, Daily Start Date: 11/22/23 Status: Ordered Start: 10-14-2023 take 2 tablets by mo [facility] in the morning glipiZIDE (Glucotrol) 5 MG [...] nightly, First dose (after last modification) on 10/21/23 at 0700, Do not hold when patient [...] 10/24/2023 Active melatonin 5 mg oral tablet (3 sources) Start: 02-26-2024 take 5 mg by mouth once daily at bedtime melatonin 5 mg, Oral, Once a day (at bedtime), Refills(s) 0 Start Date: 02/26/24 Status: Ordered Start: 12-22-2023 take 5 mg by mouth o nce daily as needed for sleep 5 mg, oral, Nightly PRN, sleep, Starting on 12/22/23 at 1115 Start: 10-16-2023 take 3 mg by mouth o nce daily as needed for sleep 3 mg, oral, Nightly PRN, sleep, Starting on Tu10/16/23 at 0044 metoclopramide 5 mg oral tablet (1 source) Dopamine-2 Receptor Antagonist Start: 02-26-2024 Reglan 5 mg, Oral, Refills(s) 0 Start Date: 02/26/24 Status: Ordered midodrine hydrochloride 5 mg oral tablet (1 source) alpha-Adrenergic Agonist Start: 02-26-2024 take 5 mg by mouth three times daily midodrine 5 mg, Oral, TID, Refills(s) 0 Start Date: 02/26/24 Status: Ordered mirtazapine 15 mg oral tablet (1 source) Start: 02-26-2024 take 15 mg by mouth once daily at bedtime mirtazapine 15 mg, Oral, Once a day (at bedtime), Refills(s) 0 Start Date: 02/26/24 Status: Ordered nitroglycerin 0.4 mg sublingual tablet (12 sources) Nitrate Vasodilator Start: 10-16-2023 nitroglycerin 0.4 mg sublingual Tab 0.4 mg = 1 tab(s), SubLingual, q5min, PRN for chest pain Start Date: 11/22/23 Status: Ordered omeprazole 40 mg oral tablet (3 sources) Proton Pump Inhibitor Start: 02-26-2024 take 40 mg by mouth once daily omeprazole 40 mg, Oral, Daily, Refills(s) 0 Start Date: 02/26/24 Status: Ordered Start: 11-09-2023 omeprazole (Pr iLOSEC) [address] capsule once every 24 hours. 11/09/2023 Active pantoprazole 40 mg injection (3 sources) Proton Pump Inhibitor Start: 12-24-2023 40 mg, intravenous, 2 times daily, First dose on 12/24/23 at 2100 Start: 12-23-2023 End: 12-24-2023 take [...] 1 dose, CV Medications polyethylene glycol 3350 33299 mg powder for oral solution (1 source) [...] 12/27/2023 Active prasugrel 10 mg oral tablet (13 sources) P2Y12 Platelet Inhibitor Start: 10-23-2023 End: 10-22-2024 take 1 tablet by mouth once daily prasugrel 10 mg Tab 10 mg = 1 tab(s), Oral, Daily Start Date: 11/22/23 Status: Ordered sertraline 100 mg oral tablet (9 sources) Serotonin Reuptake Inhibitor Start: 12-28-2023 take 1 tablet by mouth once daily sertraline (Zoloft) 100 mg tablet Indications: Grief Take 1 tablet (100 mg) by mouth once daily. 30 tablet 2 12/28/2023 Active Start: 12-23-2023 take 100 mg by mouth once cora y 100 mg, oral, Daily, First dose on Sun12/23/23 at 0900 Start: 11-22-2023 Zoloft Oral, D aily, Refills(s) 0 Start Date: 11/22/23 Status: Ordered Start: 11-09-2023 End: 12-09-2023 take 1 tablet by mouth once daily sertraline (Zoloft) 50 mg tablet Take 1 tablet (50 mg) by mouth once daily. 11/09/2023 Active spironolactone 50 mg oral tablet (5 sources) Aldosterone Antagonist Start: 02-26-2024 take 50 mg by mouth once daily spironolactone 50 mg, Oral, Daily, Refills(s) 0 Start Date: 02/26/24 Status: Ordered Start: 12-25-2023 take 50 mg by mouth once daily 50 mg, oral, Daily, First dose (after last modification) on Sun12/25/23 at 0900 Start: 12-23-2023 End: 12-24-2023 take 25 mg by mouth once daily 25 mg, oral, Daily, Fir st dose (after last modification) on Sun12/23/23 at 0900 Start: 11-13-2023 End: 11-12-2024 take 2 tablets by mouth once daily spironolactone (Aldactone) 25 mg tablet Indications: Edema, unspecified type Take 2 tablets (50 mg) by mouth once daily. 90 tablet 3 11/13/2023 11/12/2024 Active sulfur hexafluoride microsphr (Lumason) injection 24.28 mg (1 source) Start: 12-24-2023 24.28 mg (2 mL ), intravenous, Once in imaging, Starting on Sun12/24/23 at 1836, For 1 dose, CV Medications, Follow administration with 5 mL NaCL 0.9% injection. tamsulosin hydrochloride 0.4 mg oral capsule (4 sources) alpha-Adrenerg ic Farhad Start: 11-22-2023 take 1 capsule by mouth once daily tamsulosin 0.4 mg Cap 0.4 mg = 1 cap(s), Oral, Daily, # 30 cap(s), Refills(s) 11, Pharmacy: [facility], 178, cm, 11/22/23 15:47:00 EDT, Height/Length [...] pain severe (7-10), first line, Starting on 10/17/23 at 2015, If ordered PRN for pain, [...] (0-40 mL/hr ), intravenous, Continuous, Starting on Sun10/16/23 at 0145, Until Sun10/18/23 at 0933, Low Intensity Heparin Protocol (70-124kg) [...] (1 source) Start: 12-22-2023 End: 12-24-2023 take 9595-3583 [IU] intravenously every four hours as needed [...] on 12/23/23 at 1130, For 5 doses magnesium oxide [...] 12-26-2023 End: 12-26-2023 As needed, Starting on 12/26/23 at 1704, Intraprocedure mupirocin 0.02 mg/mg topical [...] mL of Normal Saline. polyethylene glycol 3350 761945 mg / potassium chloride 1480 mg / sodium bicarbonate 5720 mg / sodium chloride 48279 mg powder for oral solution (1 source) [...] mL/hr, Administer over 4 Hours, Once, On 10/23/23 at 1730, For 1 dose Problems Active Problems Problem Classification Problem Date Documented Date Episodic/Chronic Acute myocardial infarction (11 sources) Myocardial infarction; Translations: [Non-ST elevation (NSTEMI) myocardial infarction] Onset: 10-16-2023 Resolved: 11-02-2023 12-23-2023 Chronic Adjustment disorders (9 sources) Grief finding; Translations: [Adjustment disorder with depressed mood] Onset: 10-17-2023 12-27-2023 Chronic Calculus of urinary tract (5 sources) Kidney stone 11-22-2023 Episodic Chronic kidney [...] gangrene] 11-29-2023 Chronic Diabetes mellitus without complication (15 sources) Type 2 diabetes mellitus; Translations: [Type 2 diabetes mellitus without complication] Onset: 10-15-2023 11-22-2023 Chronic Disorders of lipid metabolism (9 sources) Hypercholesterolemia; Translations: [Mixed hyperlipidemia] Onset: 11-02-2023 Resolved: 12-27-2023 11-22-2023 Chronic Esophageal disorders (3 sources) Gastroesophageal reflux disease without esophagitis; Translations: [Gastro-esophageal reflux disease without esophagitis] Onset: 11-13-2023 12-22-2023 Chronic Essential hypertension (17 sources) Essential (primary) hypertension; Translations: [Hypertensive disorder] Onset: 10-15-2023 Chronic Genitourinary symptoms and ill-defined conditions (5 sources) Retention of urine; Translations: [Retention of urine, unspecified] Onset: 11-22-2023 Episodic Hyperplasia of prostate (4 sources) Benign prostatic hyperplasia; Translations: [Benign prostatic hypertrophy without outflow obstruction] Onset: 02-26-2024 12-21-2023 Chronic Mood disorders (5 sources) Depressive disorder 11-22-2023 Chronic Mycoses (2 sources) Onychomycosis due to dermatophyte ; Translations: [Tinea unguium] 11-29-2023 Episodic Occlusion or stenosis of precerebral arteries (11 sources) Occlusion and stenosis of right carotid artery; Translations: [Right carotid artery occlusion] Onset: 11-02-2023 Chronic Osteoarthritis (16 sources) Arthritis; Translations: [Osteoarthritis] Onset: 10-15-2023 11-22-2023 Chronic Other aftercare (3 sources) Long-term current use of drug therapy; Translations: [alf (current) use of antithrombotics/antipl atelets] Onset: 12-25-2023 12-25-2023 Episodic Other aftercare (2 sources) 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] Onset: 11-02-2023 Resolved: 12-27-2023 12-27-2023 Chronic Other screening for suspected conditions (not mental disorders or infectious disease) (1 source) Encounter for screening for malignant neoplasm of prostate; Translations: [Screening for malignant neoplasm done] Onset: 02-26-2024 Episodic Other skin disorders (2 sources) Dystrophia unguium; Translations: [Nail dystrophy] 11-29-2023 Episodic Peripheral and visceral atherosclerosis (3 sources) Peripheral vascular disease, unspecified; Translations: [Peripheral vascular disease] Onset: 10-15-2023 Chronic Residual codes; unclassified (2 sources) Edema, unspecified; Translations: [Edema, unspecified] Onset: 11-02-2023 Episodic Residual codes; unclassified (5 sources) History of headache 11-22-2023 Episodic Residual [...] unspecified back pain laterality] 11-13-2023 Episodic Unclassified (3 sources) Patient encounter status 12-21-2023 Past or [...] Interpretation Reference Range Facility Ambulatory Visit Summaryon 0 02-26-2024 Ambulatory Visit Summary Ambulatory Visit Summary ITALIA ALLEN :1955 Visit Date:02/26/2024 Ambulatory Visit Instructions Your Diagnosis Urinary retention Your Care Team Attending Physician - LILLIAM PHAM PA-C Primary Care Physician - SAMARA VILLASEÑOR CNP This Is Your Medications List aspirin (aspirin 81 mg oral capsule) atorvastatin (atorvastatin 80 mg Tab) buPROPion (Wellbutrin XL) bumetanide (bumetanide 2 mg Tab) glipiZIDE (glipiZIDE 5 mg Tab) insulin glargine (Basaglar KwikPen) melatonin metoclopramide (Reglan) midodrine mirtazapine nitroglycerin (nitroglycerin 0.4 mg sublingual Tab) omeprazole prasugrel (prasugrel 10 mg Tab) sertraline (Zoloft) spironolactone tamsulosin (tamsulosin 0.4 mg Cap) Procedures Performed Cholecystectomy, Tonsillectomy. Discharge Vitals Temperature (Oral) 37 ???C Heart Rate (Peripheral) 119 Respiratory Rate 18 Blood Pressure 99/55 Height 178 cm Height 70 in Medications What How Much When Why Instructions Unchanged aspirin (aspirin 81 mg oral capsule) By Mouth Every 24 hours Unchanged atorvastatin (atorvastatin 80 mg Tab) 1 Tablets By Mouth Every day Unchanged bumetanide (bumetanide 2 mg Tab) 1 Tablets By Mouth Unchanged buPROPion (Wellbutrin XL) 300 Milligram By Mouth Every day Unchanged glipiZIDE (glipiZIDE 5 mg Tab) 1 Tablets By Mouth Every day Unchanged insulin glargine (Basaglar KwikPen) See instructions Unchanged melatonin 5 Milligram By Mouth Once a day (at bedtime) Unchanged metoclopramide (Reglan) 5 Milligram By Mouth Unchanged midodrine 5 Milligram By Mouth 3 times a day Unchanged mirtazapine 15 Milligram By Mouth Once a day (at bedtime) Unchanged nitroglycerin (nitroglycerin 0.4 mg sublingual Tab) 1 Tablets Sublingual Every 5 minutes as needed for for chest pain Unchanged omeprazole 40 Milligram By Mouth Every day Unchanged prasugrel (prasugrel 10 mg Tab) 1 Tablets By Mouth Every day Unchanged sertraline (Zoloft) By Mouth Every day Unchanged spironolactone 50 Milligram By Mouth Every day Unchanged tamsulosin (tamsulosin 0.4 mg Cap) 1 Capsules By Mouth Every day Urinary retention Allergies No Known Medication Allergies Problems Ongoing - Any problem that you are currently receiving treatment for. Arthritis BPH (benign prostatic hyperplasia) Depression High cholesterol History of headache History of heart attack Hypertension Kidney stones Prostate cancer screening Type 2 diabetes mellitus Urinary retention Patient Survey You may receive a survey via text or e-mail asking about your office visit. Please share your experience with us by completing your survey. We appreciate your feedback and thank you for choosing us for your care. Normal [facility] Urology Office/Clinic Noteon 02-26-2024 Urology Office/Clinic Note Urology Office/Clinic Note Chief Complaint follow up HPI Staff 68yr old pt here for f/u visit to discuss next steps. Seen in ER 01/27/24 & 02/06/24 for weakness and falls. Pt states they believe this is due to low blood pressure. He is now staying at [facility] for PT/strengthening. Previously was living at home w his son. Plan is to return home but pt does not know any sort of timeline in regards to this. Currently in wheelchair and requires 2-person assist for transfer. Pt was unable to urinate at ER visit on 01/27/24 so Seals catheter was placed. Catheter was removed 02/06 for void trial. Pt was retaining >500cc of urine, and bladder was distended/tender to touch, so Seals was reinserted. Pt has history of retention. He was seen in ER for this 11/19/23 as well & Seals was placed. At f/u office visit in Nov AO pt was adamant about Seals removal. She started Flomax at this visit. Plan was to have another f/u visit after Seals removal with PVR but pt lost to f/u. Pt told RN that he was having some discomfort at insertion point of seals. He denies this to me. Says he just doesn't like having it in. Review of Systems PHQ Score Initial Depression Screen Score: 0 SCORE denies fever/chills. Physical Exam Vitals & Measurements T: 37 ???C(Oral) HR: 119(Peripheral) RR: 18 BP: 99/55 HT: 70 in HT: 178 cm nontoxic appearing. Seals draining clear yellow urine. Assessment/Plan 1. Urinary retention (R33.9: Retention of urine, unspecified) Retention episodes in Nov 2023 and Jan 2024. Failed recent void trial. Pt would like to remove seals. I told him that we would need to have staff start CIC. Pt does not think this is a good idea bc when they put the seals back in a few weeks ago it took multiple attempts and over 45 mins. Says each time in ER they've had trouble getting it inserted as well. Therefore, we will maintain seals cath. Will dc Flomax since he is struggling w/ recurrent falls which he reports is d/t hypotension. I briefly discussed with the patient the different surgical treatment options for bladder outlet obstruction including TURP and Rezum. He will be scheduled for cystoscopy with MD for visualization of the prostatic urethra and surgical planning. Would like Uros too, but his immobility prohibits this for now. The risks and benefits for cystoscopy have been discussed. The risks include bleeding, infection, and irritation of the bladder and urinary channel, among others. The patient, after being informed of procedural details and after questions have been answered, wishes to proceed. Full informed consent has been obtained. Will order Local anesthesia. Abx not sent as I do not know if he will still be at [facility] at time of scope or not. Ordered: Body Mass Index (BMI) documented 3008F Current tobacco non-user 1036F Depression Screening Negative 3352F E&M of Est. Patient Moderate 30-39 Min 06175 Fall Risk Screen 2 or more w/injury 1100F Influenza immunization status assessed 1030F Medication list documented in medical record 1159F Most recent diastolic blood pressure <80 mm Hg 3078F Review of all meds by a prescribing practitioner or clinical pharmacist documented in EHR 1160F Systolic BP <130 mm Hg (Most Recent) 3074F 2. BPH (benign prostatic hyperplasia) (N40.0: Benign prostatic hyperplasia without lower urinary tract symptoms) See #1. Ordered: E&M of Est. Patient Moderate 30-39 Min 80070 3. Prostate cancer screening (Z12.5: Encounter for screening for malignant neoplasm of prostate) No PSAs on [facility]. Not sure if PCP had been checking. Order given for blood draw at [facility]. Ordered: E&M of Est. 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 Medications aspirin 81 mg oral capsule, Oral, q24hr atorvastatin 80 mg Tab, 80 mg= 1 tab(s), Oral, Daily Basaglar TitiPen, See Instructions bumetanide 2 mg Tab, 2 mg= 1 tab(s), Oral glipiZIDE 5 mg Tab, 5 mg= 1 tab(s), Oral, Daily melatonin, 5 mg, Oral, Once a day (at bedtime) midodrine, 5 mg, Oral, TID mirtazapine, 15 mg, Oral, Once a day (at bedtime) nitroglycerin 0.4 mg sublingual Tab, 0.4 mg= 1 tab(s), SubLingual, q5min, PRN omeprazole, 40 mg, Oral, Daily prasugrel 10 mg Tab, 10 mg= 1 tab(s), Oral, Daily Reglan, 5 mg, Oral spironolactone, 50 mg, Oral, Daily tamsulosin 0.4 mg Cap, 0.4 mg= 1 ca (more content not included)... Normal [facility] Comment on above: Result Comment: Elec tronically Signed By: LILLIAM PHAM PA-C.br\Date and Time Signed: 02/26/24 12:35 EST COLONOSCOPYon 12-27-2023 Colonoscopy Table formatting fro m [...] Jaja Seaman MD Proceduralist Bela Rubalcava MD Fellow Medications Totals unavailable because the [...] of bowel preparation was evaluated using the [place] Bowel Preparation Scale with scores of: right colon = 2, transverse colon = 2, left colon = 2. The total BBPS score was 6. Bowel prep was adequate. The patient experienced no blood loss. The procedure was not difficult. The patient tolerated the procedure well. There were no apparent adverse events. Events Procedure Events Event Event Time Specimens No specimens collected Procedure Location [address] [id number] Referring Provider Bela Rubalcava MD Procedure Provider Jaja Seaman MD [facility] Glucose Test strip manual (B ld) [Mass/Vol]on 12-27-2023 Glucose [Mass/Vol] 182 mg/dL High 74 - 99 mg/dL [facility] Interpretation and review of laboratory results Abnormal [facility] Glucose [Mass/Vol] 182 mg/dL High 74-99 [facility] Comment on above: Performed By: #### 5 902-2 #### ERICA Tam ([id number]) [facility] ([facility]) [address] [place] [address] Glucose [Mass/Vol] 150 mg/dL High 74 - 99 mg/dL [facility] Interpretation and review of laboratory results Abnormal [facility] Glucose [Mass/Vol] 150 mg/dL High 74-99 [facility] Comment on above: Performed By: #### 5 902-2 #### ERICA Tam ([id number]) [facility] ([facility]) [address] [place] [address] CBC panel Auto (Bld)on 12-25 Erythrocyte distribution width (RBC) [Ratio] 16.1 % High 11.5 - 14.5 % [facility] Hematocrit (Bld) [Volume fraction] 27.9 % Low 41.0 - 52.0 % [facility] Hemoglobin (Bld) [Mass/Vol] 8.2 g/dL Low 13.5 - 17.5 g/dL [facility] Interpretation and review of laboratory results Abnormal [facility] MCH (RBC) [Entitic mass] 28.6 pg 26.0 - 34.0 pg [facility] MCHC (RBC) [Mass/Vol] 29.4 g/dL Low 32.0 - 36.0 g/dL [facility] MCV (RBC) [Entitic vol] 97 fL 80 - 100 fL [facility] Nucleated RBC/100 WBC (Bld) [Ratio] 0 % [facility] Platelets (Bld) [#/Vol] 300 10*3/uL [facility] RBC (Bld) [#/Vol] 2.87 10*6/uL Low [facility] WBC (Bld) [#/Vol] 9.1 10*3/uL [facility] Erythrocyte distribution width (RBC) [Ratio] 16.1 % High 11.5-14.5 [facility] Comment on above: Performed By: #### 5 902-2 #### ERICA Tam ([id number]) [facility] ([facility]) [id number] [place] [address] Hematocrit (Bld) [Volume fraction] 27.9 % Low 41.0-52.0 [facility] Comment on above: Performed By: #### 5 902-2 #### ERICA Tam ([id number]) [facility] ([facility]) [id number] [place] [address] Hemoglobin (Bld) [Mass/Vol] 8.2 g/dL Low 13.5-17.5 [facility] Comment on above: Performed By: #### 5 902-2 #### ERICA Tam ([id number]) [facility] ([facility]) [id number] [place] [address] MCH (RBC) [Entitic mass] 28.6 pg Normal 26.0-34.0 [facility] Comment on above: Performed By: #### 5 902-2 #### ERICA Tam ([id number]) [facility] ([facility]) [id number] [place] [address] MCHC (RBC) [Mass/Vol] 29.4 g/dL Low 32.0-36.0 [facility] Comment on above: Performed By: #### 5 902-2 #### ERICA Tam ([id number]) [facility] ([facility]) [address] [place] [address] MCV (RBC) [Entitic vol] 97 fL Normal 80-100 [facility] Comment on above: Performed By: #### 5 902-2 #### ERICA Tam ([id number]) [facility] ([facility]) [id number] [place] [address] Nucleated RBC/100 WBC (Bld) [Ratio] 0.0 /100 WBCs Normal 0.0-0.0 [facility] Comment on above: Performed By: #### 5 902-2 #### ERICA Tam ([id number]) [facility] ([facility]) [id number] [place] [address] Platelets (Bld) [#/Vol] 300 x10*3/uL Normal 150-450 [facility] Comment on above: Performed By: #### 5 902-2 #### ERICA Tam ([id number]) [facility] ([facility]) [id number] [place] [address] RBC (Bld) [#/Vol] 2.87 x10*6/uL Low 4.50-5.90 [facility] Comment on above: Performed By: #### 5 902-2 #### ERICA Tam ([id number]) [facility] [facility] ([facility]) [id number] [place] [address] WBC (Bld) [#/Vol] 9.1 x10*3/uL Normal 4.4-11.3 [facility] Comment on above: Performed By: #### 5 902-2 #### ERICA Tam ([id number]) [facility] ([facility]) [address] [place] [address] ECG 12-LEADon 12-26-2023 ECG 12-LEAD Ventricular Rate 61 Atrial Rate 61 P-R Interval 214 QRS Duration 98 Q-T Interval 444 QTC Calculation(Bazett) 446 P [place] 24 R [place] 17 T [place] 92 QRS Count 10 Q Onset 219 [...] Pope ([id number]) on 12/28/2023 10:37:08 AM Normal [facility] EGDon 12-26-2023 Esophagogastroduodenosc opy Table formatting from [...] appeared normal. 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 Repeat egd with further banding if recurrent [...] Time Specimens No specimens collected Procedure Location [facility] [id number] [place] [id number] Referring Provider Bela Rubalcava MD Procedure Provider Jaja Seaman MD [facility] Work Phone: Radiology Study observation (narrative) [facility] Work Phone: EGD Study observation Narrat iveOrdered By: Jaja Seaman on 12-26-2023 [facility] Work Phone: Glucose Test strip manual (B ld) [Mass/Vol]on 12-26-2023 Glucose [Mass/Vol] 172 mg/dL High 74 - 99 mg/dL [facility] Interpretation and review of laboratory results Abnormal [facility] Glucose [Mass/Vol] 172 mg/dL High 74-99 [facility] Comment on above: Performed By: #### 5 902-2 #### ERICA Tam ([id number]) [facility] ([facility]) [address] [place] [address] Glucose [Mass/Vol] 108 mg/dL High 74 - 99 mg/dL [facility] Interpretation and review of laboratory results Abnormal [facility] Glucose [Mass/Vol] 108 mg/dL High 74-99 [facility] Comment on above: Performed By: #### 5 902-2 #### ERICA Tam ([id number]) [facility] ([facility]) [address] [place] [address] Glucose [Mass/Vol] 106 mg/dL High 74 - 99 mg/dL [facility] Interpretation and review of laboratory results Abnormal [facility] Glucose [Mass/Vol] 106 mg/dL High 74-99 [facility] Comment on above: Performed By: #### 5 902-2 #### ERICA Tam ([id number]) [facility] ([facility]) [address] [place] [address] Glucose [Mass/Vol] 117 mg/dL High 74 - 99 mg/dL [facility] Interpretation and review of laboratory results Abnormal [facility] Glucose [Mass/Vol] 117 mg/dL High 74-99 [facility] Comment on above: Performed By: #### 5 902-2 #### ERICA Tam ([id number]) [facility] ([facility]) [address] [place] [address] Glucose [Mass/Vol] 125 mg/dL High 74 - 99 mg/dL [facility] Interpretation and review of laboratory results Abnormal [facility] Glucose [Mass/Vol] 125 mg/dL High 74-99 [facility] Comment on above: Performed By: #### 5 902-2 #### ERICA Tam ([id number]) [facility] ([facility]) [address] [place] [address] Magnesiumon 12-26-2023 Magnesium [Mass/Vol] 1.89 mg/dL 1.60 - 2.40 mg/dL [facility] Magnesium [Mass/Vol] 1.89 mg/dL Normal 1.60-2.40 [facility] Comment on above: Performed By: #### 5 902-2 #### ERICA Tam ([id number]) [facility] ([facility]) [address] [place] [address]647 Magnesium [Mass/Vol]on 12-25 Interpretation and review of laboratory results Normal [facility] No Panel Informationon 12-25 [facility] Renal function 2000 panelon 12-26-2023 Albumin BCP dye [Mass/Vol] 2.9 g/dL Low 3.4 - 5.0 g/dL [facility] Anion gap [Moles/Vol] 14 mmol/L 10 - 2 0 mmol/L [facility] Calcium [Mass/Vol] 8.4 mg/dL Low 8.6 - 10. 6 mg/dL [facility] Chloride [Moles/Vol] 103 mmol/L 98 - 10 7 mmol/L [facility] CO2 [Moles/Vol] 29 mmol/L 21 - 32 mmol/L [facility] Creatinine [Mass/Vol] 1.69 mg/dL High 0.50 - 1.30 mg/dL [facility] GFR/1.73 sq M.predicted among non-blacks MDRD (S/P/Bld) [Vol rate/Area] 43 mL/min/{1.73_m2} Low - PINF [facility] Comment on above: Calculations of mercedez mated GFR are performed using the 2020 CKD-EPI Study Refit equation without the race variable for the IDMS-Traceable creatinine methods. https://jasn.asnjournals.org/content//ASN.2020 605497 Glucose [Mass/Vol] 180 mg/dL High 74 - 99 mg/dL [facility] Interpretation and review of laboratory results Abnormal [facility] Phosphate [Mass/Vol] 3.2 mg/dL 2.5 - 4 .9 mg/dL [facility] Comment on above: The performance cecilia acteristics of phosphorus testing in heparinized plasma have been validated by the individual laboratory site where testing is performed. Testing on heparinized plasma is not approved by the FDA; however, such approval is not necessary. Potassium [Moles/Vol] 3.8 mmol/L 3.5 - 5.3 mmol/L [facility] Sodium [Moles/Vol] 142 mmol/L 136 - 145 mmol/L [facility] Urea nitrogen [Mass/Vol] 37 mg/dL High 6 - 23 mg/dL [facility] Albumin BCP dye [Mass/Vol] 2.9 g/dL Low 3.4-5.0 [facility] Comment on above: Performed By: #### 5 902-2 #### ERICA Tam ([id number]) [facility] ([facility]) [address] [place] [address] 23276 Anion gap [Moles/Vol] 14 mmol/L Normal 10-20 [facility] Comment on above: Performed By: #### 5 902-2 #### ERICA Tam ([id number]) [facility] ([facility]) [address] [place] [address] Calcium [Mass/Vol] 8.4 mg/dL Low 8.6-10.6 [facility] Comment on above: Performed By: #### 5 902-2 #### ERICA MCDONALD L ([id number]) [facility] ([facility]) [address] [place] [address] Chloride [Moles/Vol] 103 mmol/L Normal 98-107 [facility] Comment on above: Performed By: #### 5 902-2 #### ERICA RESTREPOMOJOELLEER L ([id number]) [facility] ([facility]) [address] [place] [address] CO2 [Moles/Vol] 29 mmol/L Normal 21-32 [facility] Comment on above: Performed By: #### 5 902-2 #### ERICA MCDONALD L ([id number]) [facility] ([facility]) [address] [place] [address]551 Creatinine [Mass/Vol] 1.69 mg/dL High 0.50-1.30 [facility] Comment on above: Performed By: #### 5 902-2 #### ERICA ARREOLATZLUZ L ([id number]) [facility] ([facility]) [address] [place] [address] 64160 Glomerular filtration rate/1.73 sq M.predicted 43 mL/min/1.73m*2 Low >60 [facility] Comment on above: Result Comment: Calc ulations of estimated GFR are performed using the 2020 CKD-EPI Study Refit equation without the race variable for the IDMS-Traceable creatinine methods. https://jasn.asnjournals.org/content/early//ASN.2020 720017 Performed By: #### 5 902-2 #### ERICA MCDONALD L ([id number]) [facility] ([facility]) [address] [place] [address] Glucose [Mass/Vol] 180 mg/dL High 74-99 [facility] Comment on above: Performed By: #### 5 902-2 #### ERICA Tam ([id number]) [facility] ([facility]) [address] [place] [address] 95586 Phosphate [Mass/Vol] 3.2 mg/dL Normal 2.5-4.9 [facility] Comment on above: Result Comment: The performance characteristics of phosphorus testing in heparinized plasma have been validated by the individual laboratory site where testing is performed. Testing on heparinized plasma is not approved by the FDA; however, such approval is not necessary. Performed By: #### 5 902-2 #### ERICA Tam ([id number]) [facility] ([facility]) [address] [place] [address] 22154 Potassium [Moles/Vol] 3.8 mmol/L Normal 3.5-5.3 [facility] Comment on above: Performed By: #### 5 902-2 #### ERICA Tam ([id number]) [facility] ([facility]) [address] [place] [address] 42795 Sodium [Moles/Vol] 142 mmol/L Normal 136-145 [facility] Comment on above: Performed By: #### 5 902-2 #### ERICA Tam ([id number]) [facility] ([facility]) [address] [place] [address] 51284 Urea nitrogen [Mass/Vol] 37 mg/dL High 6-23 [facility] Comment on above: Performed By: #### 5 902-2 #### ERICA Tam ([id number]) [facility] ([facility]) [address] [place] [address] 46611 CBC panel Auto (Bld)on 12-24 Erythrocyte distribution width (RBC) [Ratio] 16.3 % High 11.5 - 14.5 % [facility] Hematocrit (Bld) [Volume fraction] 29.1 % Low 41.0 - 52.0 % [facility] Hemoglobin (Bld) [Mass/Vol] 8.8 g/dL Low 13.5 - 17.5 g/dL [facility] Interpretation and review of laboratory results Abnormal [facility] MCH (RBC) [Entitic mass] 28.4 pg 26.0 - 34.0 pg [facility] MCHC (RBC) [Mass/Vol] 30.2 g/dL Low 32.0 - 36.0 g/dL [facility] MCV (RBC) [Entitic vol] 94 fL 80 - 100 fL [facility] Nucleated RBC/100 WBC (Bld) [Ratio] 0 % [facility] Platelets (Bld) [#/Vol] 416 10*3/uL [facility] RBC (Bld) [#/Vol] 3.1 10*6/uL Low [facility] WBC (Bld) [#/Vol] 9.3 10*3/uL [facility] Erythrocyte distribution width (RBC) [Ratio] 16.3 % High 11.5-14.5 [facility] Comment on above: Performed By: #### 5 902-2 #### ERICA Tam ([id number]) [facility] ([facility]) [address] [place] [address] 82362 Hematocrit (Bld) [Volume fraction] 29.1 % Low 41.0-52.0 [facility] Comment on above: Performed By: #### 5 902-2 #### ERICA Tam ([id number]) [facility] ([facility]) [address] [place] [address] 70391 Hemoglobin (Bld) [Mass/Vol] 8.8 g/dL Low 13.5-17.5 [facility] Comment on above: Performed By: #### 5 902-2 #### ERICA Tam ([id number]) [facility] ([facility]) [address] [place] [address] 00887 MCH (RBC) [Entitic mass] 28.4 pg Normal 26.0-34.0 [facility] Comment on above: Performed By: #### 5 902-2 #### ERICA Tam ([id number]) [facility] ([facility]) [address] [place] [address] 62364 MCHC (RBC) [Mass/Vol] 30.2 g/dL Low 32.0-36.0 [facility] Comment on above: Performed By: #### 5 902-2 #### ERICA Tam ([id number]) [facility] ([facility]) [address] [place] [address] 72654 MCV (RBC) [Entitic vol] 94 fL Normal 80-100 U [facility] Comment on above: Performed By: #### 5 902-2 #### ERICA Tam ([id number]) [facility] ([facility]) [address] [place] [address] 88207 Nucleated RBC/100 WBC (Bld) [Ratio] 0.0 /100 WBCs Normal 0.0-0.0 [facility] Comment on above: Performed By: #### 5 902-2 #### ERICA Tam ([id number]) [facility] ([facility]) [address] [place] [address] 56486 Platelets (Bld) [#/Vol] 416 x10*3/uL Normal 150-450 [facility] Comment on above: Performed By: #### 5 902-2 #### ERICA Tam ([id number]) [facility] ([facility]) [address] [place] [address] 43623 RBC (Bld) [#/Vol] 3.10 x10*6/uL Low 4.50-5.90 [facility] Comment on above: Performed By: #### 5 902-2 #### ERICA Tam ([id number]) [facility] ([facility]) [address] [place] [address] 26235 WBC (Bld) [#/Vol] 9.3 x10*3/uL Normal 4.4-11.3 [facility] Comment on above: Performed By: #### 5 902-2 #### ERICA Tam ([id number]) [facility] ([facility]) [address] [place] [address]249 ECG 12 leadOrdered By: Santiago Pope on 12-25-2023 Atrial Rate 77 BPM [facility] Work Phone: [phone] P [place] 2 degrees [facility] Work Phone: [phone] P Offset 170 ms [facility] Work Phone: [phone] P Onset 128 ms [facility] Work Phone: [phone] [place] Interval 186 ms [facility] Work Phone: [phone] Q Onset 221 ms [facility] Work Phone: [phone] QRS Count 13 beats [facility] Work Phone: [phone] QRS Duration 92 ms [facility] Work Phone: [phone] QT Interval 378 ms [facility] Work Phone: [phone] QTC Calculation(Bazett) 427 ms U [facility] Work Phone: [phone] QTC Fredericia 410 ms [facility] Work Phone: [phone] R [place] 27 degrees [facility] Work Phone: [phone] T [place] 124 degrees [facility] Work Phone: [phone] T Offset 410 ms [facility] Work Phone: [phone] Ventricular Rate 77 BPM [facility] Work Phone: [phone] [facility] Work Phone: [phone] ECG 12 leadon 12-25-2023 Sinus rhythm with frequent Premature ventricular complexes Nonspecific T wave abnormality Abnormal ECG When compared with ECG of 22-DEC-2023 11:44, No significant change was found Confirmed by Santiago Pope ([id number]) on 12/25/2023 11:27:31 AM Santiago Camilo MD - 12/25/2023 Sinus rhythm with frequent Premature ventricular complexes Nonspecific T wave abnormality Abnormal ECG When compared with ECG of 22-DEC-2023 11:44, No significant change was found Confirmed by Santiago Pope ([id number]) on 12/25/2023 11:27:31 AM [facility] Work Phone: Glucose Test strip manual (B ld) [Mass/Vol]on 12-25-2023 Glucose [Mass/Vol] 118 mg/dL High 74 - 99 mg/dL [facility] Interpretation and review of laboratory results Abnormal [facility] Glucose [Mass/Vol] 118 mg/dL High 74-99 [facility] Comment on above: Performed By: #### 5 902-2 #### ERICA Tam ([id number]) [facility] ([facility]) [address] [place] [address] 95310 Glucose [Mass/Vol] 192 mg/dL High 74 - 99 mg/dL [facility] Interpretation and review of laboratory results Abnormal [facility] Glucose [Mass/Vol] 192 mg/dL High 74-99 [facility] Comment on above: Performed By: #### 5 902-2 #### ERICA Tam ([id number]) [facility] ([facility]) [address] [place] [address] 00385 Glucose [Mass/Vol] 247 mg/dL High 74 - 99 mg/dL [facility] Interpretation and review of laboratory results Abnormal [facility] Glucose [Mass/Vol] 247 mg/dL High 74-99 [facility] Comment on above: Performed By: #### 5 902-2 #### ERICA Tam ([id number]) [facility] ([facility]) [address] [place] [address] 78845 Glucose [Mass/Vol] 120 mg/dL High 74 - 99 mg/dL [facility] Interpretation and review of laboratory results Abnormal [facility] Glucose [Mass/Vol] 120 mg/dL High 74-99 [facility] Comment on above: Performed By: #### 5 902-2 #### ERICA Tam ([id number]) [facility] ([facility]) [address] [place] [address] 33066 Glucose [Mass/Vol] 139 mg/dL High 74 - 99 mg/dL [facility] Interpretation and review of laboratory results Abnormal [facility] Glucose [Mass/Vol] 139 mg/dL High 74-99 [facility] Comment on above: Performed By: #### 5 902-2 #### ERICA Tam ([id number]) [facility] ([facility]) [address] [place] [address] Magnesiumon 12-25-2023 Magnesium [Mass/Vol] 1.98 mg/dL 1.60 - 2.40 mg/dL [facility] Magnesium [Mass/Vol] 1.98 mg/dL Normal 1.60-2.40 [facility] Comment on above: Performed By: #### 5 902-2 #### ERICA Tam ([id number]) [facility] ([facility]) [address] [place] [address] Magnesium [Mass/Vol]on 12-24 Interpretation and review of laboratory results Normal [facility] No Panel Informationon 12-24 [facility] Renal function 2000 panelon 12-25-2023 Albumin BCP dye [Mass/Vol] 3.3 g/dL Low 3.4 - 5.0 g/dL [facility] Anion gap [Moles/Vol] 13 mmol/L 10 - 2 0 mmol/L [facility] Calcium [Mass/Vol] 9 mg/dL 8.6 - 10. 6 mg/dL [facility] Chloride [Moles/Vol] 101 mmol/L 98 - 10 7 mmol/L [facility] CO2 [Moles/Vol] 31 mmol/L 21 - 32 mmol/L [facility] Creatinine [Mass/Vol] 1.68 mg/dL High 0.50 - 1.30 mg/dL [facility] GFR/1.73 sq M.predicted among non-blacks MDRD (S/P/Bld) [Vol rate/Area] 44 mL/min/{1.73_m2} Low - PINF [facility] Comment on above: Calculations of mer[place] mated GFR are performed using the 2020 CKD-EPI Study Refit equation without the race variable for the IDMS-Traceable creatinine methods. https://jasn.asnjournals.org/content/ASN.2020 816943 Glucose [Mass/Vol] 174 mg/dL High 74 - 99 mg/dL [facility] Interpretation and review of laboratory results Abnormal [facility] Phosphate [Mass/Vol] 2.8 mg/dL 2.5 - 4 .9 mg/dL [facility] Comment on above: The performance cecilia acteristics of phosphorus testing in heparinized plasma have been validated by the individual laboratory site where testing is performed. Testing on heparinized plasma is not approved by the FDA; however, such approval is not necessary. Potassium [Moles/Vol] 3.8 mmol/L 3.5 - 5.3 mmol/L [facility] Sodium [Moles/Vol] 141 mmol/L 136 - 145 mmol/L [facility] Urea nitrogen [Mass/Vol] 35 mg/dL High 6 - 23 mg/dL [facility] Albumin BCP dye [Mass/Vol] 3.3 g/dL Low 3.4-5.0 [facility] Comment on above: Performed By: #### 5 902-2 #### ERICA Tam ([id number]) [facility] ([facility]) [address] [place] [address] 40166 Anion gap [Moles/Vol] 13 mmol/L Normal 10-20 [facility] Comment on above: Performed By: #### 5 902-2 #### ERICA Tam ([id number]) [facility] ([facility]) [address] [place] [address] 04444 Calcium [Mass/Vol] 9.0 mg/dL Normal 8.6-10.6 [facility] Comment on above: Performed By: #### 5 902-2 #### ERICA Tam ([id number]) [facility] ([facility]) [address] [place] [address] 50603 Chloride [Moles/Vol] 101 mmol/L Normal 98-107 [facility] Comment on above: Performed By: #### 5 902-2 #### ERICA Tam ([id number]) [facility] ([facility]) [address] [place] [address] CO2 [Moles/Vol] 31 mmol/L Normal 21-32 [facility] Comment on above: Performed By: #### 5 902-2 #### ERICA Tam ([id number]) [facility] ([facility]) [address] [place] [address] Creatinine [Mass/Vol] 1.68 mg/dL High 0.50-1.30 [facility] Comment on above: Performed By: #### 5 902-2 #### ERICA Tam ([id number]) [facility] ([facility]) [address] [place] [address] 37186 Glomerular filtration rate/1.73 sq M.predicted 44 mL/min/1.73m*2 Low >60 [facility] Comment on above: Result Comment: Calc ulations of estimated GFR are performed using the 2020 CKD-EPI Study Refit equation without the race variable for the IDMS-Traceable creatinine methods. https://jasn.asnjournals.org/content//ASN.2020 548182 Performed By: #### 5 902-2 #### ERICA Tam ([id number]) [facility] ([facility]) [address] [place] [address] Glucose [Mass/Vol] 174 mg/dL High 74-99 [facility] Comment on above: Performed By: #### 5 902-2 #### ERICA Tam ([id number]) [facility] ([facility]) [address] [place] [address] Phosphate [Mass/Vol] 2.8 mg/dL Normal 2.5-4.9 [facility] Comment on above: Result Comment: The performance characteristics of phosphorus testing in heparinized plasma have been validated by the individual laboratory site where testing is performed. Testing on heparinized plasma is not approved by the FDA; however, such approval is not necessary. Performed By: #### 5 902-2 #### ERICA MCDONALD L ([id number]) [facility] ([facility]) [address] [place] [address] 63420 Potassium [Moles/Vol] 3.8 mmol/L Normal 3.5-5.3 [facility] Comment on above: Performed By: #### 5 902-2 #### ERICA MCDONALD L ([id number]) [facility] ([facility]) [address] [place] [address] 27084 Sodium [Moles/Vol] 141 mmol/L Normal 136-145 [facility] Comment on above: Performed By: #### 5 902-2 #### ERICA MCDONALD L ([id number]) [facility] ([facility]) [address] [place] [address] 95601 Urea nitrogen [Mass/Vol] 35 mg/dL High 6-23 [facility] Comment on above: Performed By: #### 5 902-2 #### ERICA MCDONALD L ([id number]) [facility] ([facility]) [address] [place] [address] 53342 Blood type and Indirect anti body screen panel (Bld)on 12-24-2023 ABO group Nom (Bld) A [facility] Blood group antibody screen Ql Negative [facility] D Ag Ql (Bld) Positive [facility] Comment on above: 2nd ABO test require d. Order and Collect VERAB [facility] CBC panel Auto (Bld)on 12-23 Erythrocyte distribution width (RBC) [Ratio] 16.2 % High 11.5 - 14.5 % [facility] Hematocrit (Bld) [Volume fraction] 25 % Low 41.0 - 52.0 % [facility] Hemoglobin (Bld) [Mass/Vol] 7.6 g/dL Low 13.5 - 17.5 g/dL [facility] Interpretation and review of laboratory results Abnormal [facility] MCH (RBC) [Entitic mass] 28.5 pg 26.0 - 34.0 pg [facility] MCHC (RBC) [Mass/Vol] 30.4 g/dL Low 32.0 - 36.0 g/dL [facility] MCV (RBC) [Entitic vol] 94 fL 80 - 100 fL [facility] Nucleated RBC/100 WBC (Bld) [Ratio] 0 % [facility] Platelets (Bld) [#/Vol] 352 10*3/uL [facility] RBC (Bld) [#/Vol] 2.67 10*6/uL Low [facility] WBC (Bld) [#/Vol] 9.8 10*3/uL [facility] Erythrocyte distribution width (RBC) [Ratio] 16.2 % High 11.5-14.5 [facility] Comment on above: Performed By: #### 5 902-2 #### ERICA Tam ([id number]) [facility] ([facility]) [address] [place] [address] 63170 Hematocrit (Bld) [Volume fraction] 25.0 % Low 41.0-52.0 [facility] Comment on above: Performed By: #### 5 902-2 #### ERICA Tam ([id number]) [facility] ([facility]) [address] [place] [address] 99806 Hemoglobin (Bld) [Mass/Vol] 7.6 g/dL Low 13.5-17.5 [facility] Comment on above: Performed By: #### 5 902-2 #### ERICA Tam ([id number]) [facility] ([facility]) [address] [place] [address] 30699 MCH (RBC) [Entitic mass] 28.5 pg Normal 26.0-34.0 [facility] Comment on above: Performed By: #### 5 902-2 #### ERICA Tam ([id number]) [facility] ([facility]) [address] [place] [address] 34671 MCHC (RBC) [Mass/Vol] 30.4 g/dL Low 32.0-36.0 [facility] Comment on above: Performed By: #### 5 902-2 #### ERICA Tam ([id number]) [facility] ([facility]) [id number] [place] [address] 04274 MCV (RBC) [Entitic vol] 94 fL Normal 80-100 [facility] Comment on above: Performed By: #### 5 902-2 #### ERICA Tam ([id number]) [facility] ([facility]) [address] [place] [address] 27100 Nucleated RBC/100 WBC (Bld) [Ratio] 0.0 /100 WBCs Normal 0.0-0.0 [facility] Comment on above: Performed By: #### 5 902-2 #### ERICA Tam ([id number]) [facility] ([facility]) [address] [place] [address] 85678 Platelets (Bld) [#/Vol] 352 x10*3/uL Normal 150-450 [facility] Comment on above: Performed By: #### 5 902-2 #### ERICA Tam ([id number]) [facility] ([facility]) [address] [place] [address] 24392 RBC (Bld) [#/Vol] 2.67 x10*6/uL Low 4.50-5.90 [facility] Comment on above: Performed By: #### 5 902-2 #### ERICA Tam ([id number]) [facility] ([facility]) [address] [place] [address] 24484 WBC (Bld) [#/Vol] 9.8 x10*3/uL Normal 4.4-11.3 [facility] Comment on above: Performed By: #### 5 902-2 #### ERICA Tam ([id number]) [facility] ([facility]) [address] [place] [address] 80492 Glucose Test strip manual (B ld) [Mass/Vol]on 12-24-2023 Glucose [Mass/Vol] 153 mg/dL High 74 - 99 mg/dL [facility] Interpretation and review of laboratory results Abnormal [facility] Glucose [Mass/Vol] 153 mg/dL High 74-99 [facility] Comment on above: Performed By: #### 5 902-2 #### ERICA Tam ([id number]) [facility] ([facility]) [address] [place] [address] 98693 Glucose [Mass/Vol] 77 mg/dL 74 - 99 mg/dL [facility] Interpretation and review of laboratory results Normal [facility] Glucose [Mass/Vol] 77 mg/dL Normal 74-99 [facility] Comment on above: Performed By: #### 5 902-2 #### ERICA Tam ([id number]) [facility] ([facility]) [address] [place] [address] 90320 Glucose [Mass/Vol] 134 mg/dL High 74 - 99 mg/dL [facility] Interpretation and review of laboratory results Abnormal [facility] Glucose [Mass/Vol] 134 mg/dL High 74-99 [facility] Comment on above: Performed By: #### 5 902-2 #### ERICA Tam ([id number]) [facility] ([facility]) [address] [place] [address] 93865 Glucose [Mass/Vol] 100 mg/dL High 74 - 99 mg/dL [facility] Interpretation and review of laboratory results Abnormal [facility] Glucose [Mass/Vol] 100 mg/dL High 74-99 [facility] Comment on above: Performed By: #### 5 902-2 #### ERICA Tam ([id number]) [facility] ([facility]) [address] [place] [address] 78817 Heparin Assayon 12-24-2023 Heparin unfractionated Chromogenic method Qn (PPP) 0.3 See Comment Below for Therapeutic Ranges IU/mL [facility] Heparin unfractionated Chrom ogenic method Qn (PPP)on 12-24-2023 Interpretation and review of laboratory results Normal [facility] The therapeutic reference range for UFH may be either 0.3-0.6 IU/mL or 0.3-0.7 IU/mL based on the clinical setting for anticoagulant therapy and the associated nomogram used. For Heparin dosing guidelines based on clinical scenario and Heparin Assay results, please refer to local Pharmacy and the [facility] Guidelines for Anticoagulation Therapy available on the [facility] intranet at: [email or web address] [email or web address]/[email or web address] [email or web address]_ Guidelines_for_Anticoagu .aspx [facility] Heparin.unfractionatedon Heparin unfractionated Chromogenic method Qn (PPP) 0.3 IU/mL Normal See Comment Below for Therapeutic Ranges [facility] Comment on above: Order Comment: If val monroe has not had PT + INR in the last 24 hours. Nursing to release order. Performed By: #### 5 902-2 #### ERICA Tam ([id number]) [facility] ([facility]) [address] [place] [address] 97550 Magnesiumon 12-24-2023 Magnesium [Mass/Vol] 1.92 mg/dL 1.60 - 2.40 mg/dL [facility] Magnesium [Mass/Vol] 1.92 mg/dL Normal 1.60-2.40 [facility] Comment on above: Performed By: #### 5 902-2 #### ERICA Tam ([id number]) [facility] ([facility]) [address] [place] [address] 05958 Magnesium [Mass/Vol]on 12-23 Interpretation and review of laboratory results Normal [facility] No Panel Informationon 12-23 [facility] Renal function 2000 panelon 12-24-2023 Albumin BCP dye [Mass/Vol] 3.1 g/dL Low 3.4 - 5.0 g/dL [facility] Anion gap [Moles/Vol] 12 mmol/L 10 - 2 0 mmol/L [facility] Calcium [Mass/Vol] 8.6 mg/dL 8.6 - 10. 6 mg/dL [facility] Chloride [Moles/Vol] 101 mmol/L 98 - 10 7 mmol/L [facility] CO2 [Moles/Vol] 31 mmol/L 21 - 32 mmol/L [facility] Creatinine [Mass/Vol] 1.67 mg/dL High 0.50 - 1.30 mg/dL [facility] GFR/1.73 sq M.predicted among non-blacks MDRD (S/P/Bld) [Vol rate/Area] 44 mL/min/{1.73_m2} Low - PINF [facility] Comment on above: Calculations of [place] mated GFR are performed using the 2020 CKD-EPI Study Refit equation without the race variable for the IDMS-Traceable creatinine methods. https://jasn.asnjournals.org/content/early/ASN.2020 034153 Glucose [Mass/Vol] 168 mg/dL High 74 - 99 mg/dL [facility] Interpretation and review of laboratory results Abnormal [facility] Phosphate [Mass/Vol] 3 mg/dL 2.5 - 4 .9 mg/dL [facility] Comment on above: The performance cecilia acteristics of phosphorus testing in heparinized plasma have been validated by the individual laboratory site where testing is performed. Testing on heparinized plasma is not approved by the FDA; however, such approval is not necessary. Potassium [Moles/Vol] 3.8 mmol/L 3.5 - 5.3 mmol/L [facility] Sodium [Moles/Vol] 140 mmol/L 136 - 145 mmol/L [facility] Urea nitrogen [Mass/Vol] 43 mg/dL High 6 - 23 mg/dL [facility] Albumin BCP dye [Mass/Vol] 3.1 g/dL Low 3.4-5.0 [facility] Comment on above: Performed By: #### 5 902-2 #### ERICA Tam ([id number]) [facility] ([facility]) [id number] [place] [address] 94511 Anion gap [Moles/Vol] 12 mmol/L Normal 10-20 [facility] Comment on above: Performed By: #### 5 902-2 #### ERICA Tam ([id number]) [facility] ([facility]) [address] [place] [address] 29952 Calcium [Mass/Vol] 8.6 mg/dL Normal 8.6-10.6 [facility] Comment on above: Performed By: #### 5 902-2 #### ERICA Tam ([id number]) [facility] ([facility]) [address] [place] [address] Chloride [Moles/Vol] 101 mmol/L Normal 98-107 [facility] Comment on above: Performed By: #### 5 902-2 #### ERICA MCDONALD L ([id number]) [facility] ([facility]) [address] [place] [address] CO2 [Moles/Vol] 31 mmol/L Normal 21-32 [facility] Comment on above: Performed By: #### 5 902-2 #### ERICA Tam ([id number]) [facility] ([facility]) [address] [place] [address] Creatinine [Mass/Vol] 1.67 mg/dL High 0.50-1.30 [facility] Comment on above: Performed By: #### 5 902-2 #### ERICA Tam ([id number]) [facility] ([facility]) [address] [place] [address] Glomerular filtration rate/1.73 sq M.predicted 44 mL/min/1.73m*2 Low >60 [facility] Comment on above: Result Comment: Calc ulations of estimated GFR are performed using the 2020 CKD-EPI Study Refit equation without the race variable for the IDMS-Traceable creatinine methods. https://jasn.asnjournals.org/content//ASN.2020 727264 Performed By: #### 5 902-2 #### ERICA Tam ([id number]) [facility] ([facility]) [address] [place] [address] Glucose [Mass/Vol] 168 mg/dL High 74-99 [facility] Comment on above: Performed By: #### 5 902-2 #### ERICA Tam ([id number]) [facility] ([facility]) [address] [place] [address] 54521 Phosphate [Mass/Vol] 3.0 mg/dL Normal 2.5-4.9 [facility] Comment on above: Result Comment: The performance characteristics of phosphorus testing in heparinized plasma have been validated by the individual laboratory site where testing is performed. Testing on heparinized plasma is not approved by the FDA; however, such approval is not necessary. Performed By: #### 5 902-2 #### ERICA Tam ([id number]) [facility] ([facility]) [address] [place] [address] 51037 Potassium [Moles/Vol] 3.8 mmol/L Normal 3.5-5.3 [facility] Comment on above: Performed By: #### 5 902-2 #### ERICA Tam ([id number]) [facility] ([facility]) [address] [place] [address] 85437 Sodium [Moles/Vol] 140 mmol/L Normal 136-145 [facility] Comment on above: Performed By: #### 5 902-2 #### ERICA Tam ([id number]) [facility] ([facility]) [address] [place] [address] 08351 Urea nitrogen [Mass/Vol] 43 mg/dL High 6-23 [facility] Comment on above: Performed By: #### 5 902-2 #### ERICA Tam ([id number]) [facility] ([facility]) [address] [place] [address] 63493 TRANSTHORACIC ECHO (TTE) COM PLETEon 12-24-2023 TRANSTHORACIC ECHO (TTE) [facility], [address] [place] [address] 41207 and TRANSTHORACIC ECHOCARDIOGRAM REPORT Patient Name: ITALIA Alfaro Physician: [id number] Melly Benítez MD Study Date: 12/24/2023 Ordering Provider: [id number] RAFI WALLER MRN/PID: [id number] Fellow: Nurse: Anai Sow RN Date of /Age: 6 1955 [employer] Caretaker: Ke mancia RDCS Gender assigned at M Additional Staff: : Height: 177.80 cm Admit Date: Weight: 112.04 kg Admission Status: Inpatient - Routine BSA / BMI: 2.28 m2 / 35.44 kg/m2 Blood Pressure: 151/79 mmHg Department Location: [facility] Non Invasive Study Type: TRANSTHORACIC ECHO (TTE) COMPLETE Diagnosis/ICD: Non ST elevation (NSTEMI) myocardial infarction-I21.4; Atherosclerotic heart disease of [place] coronary artery without angina pectoris-I25.10; Acute on chronic systolic (congestive) heart failure (CHF)-I50.23 Indication: ADHF, CHF, NSTEMI CPT Code: Echo Complete w Full Doppler-75499 Patient History: Pertinent History: NSTEMI, CAD, HTN, [...] an FDA cleared automated machine learning algorithm ([employer] Heart Failure by [employer]), the analysis of the apical 4-chamber echocardiogram [...] LA Area A2C: 22.6 cm2 [place] A4C: 7.6 cm [place] A2C: 7.3 cm LA Volume Index: 29.2 ml/m2 AORTA MEASUREMENTS: Normal Ranges: Asc Ao, d: 3.20 cm (2.1-3.4cm) LV SYSTOLIC FUNCTION BY 2D PLANIMETRY (MOD): Normal Ranges: EF-A4C View: 58 % (>=55%) EF-A2C View: 60 % EF-Biplane: 59 (more content not included)... Normal [facility] US Heart TransthoracicOrdere d By: Melly Benítez on 12-24-2023 Aortic Valve Area by Continuity of Peak Velocity 2.15 cm2 [facility] Work Phone: 1 800 Aortic Valve Area by Continuity of VTI 1.98 cm2 [facility] Work Phone: 800 AV mn grad 9 mmHg [facility] Work Phone: 1 800 AV pk grad 13 mmHg [facility] Work Phone: 1 800 AV pk martin 1.83 m/s [facility] Work Phone: 1 800 Body surface area Derived from formula 2.36 m2 [facility] Work Phone: 1 800 LA vol index A/L 29.2 ml/m2 [facility] Work Phone: 1) 800 LV A4C EF 58.4 [facility] Work Phone: 1 800 LV EF 59 % [facility] Work Phone: 1 800 LVIDd 5.6 cm [facility] Work Phone: 1 800 LVOT diam 2 cm [facility] Work Phone: [phone] MV E/A ratio 0.88 [facility] Work Phone: [phone] RV free wall pk S' 16.8 cm/s [facility] Work Phone: 1 800 Tricuspid annular plane systolic excursion 2.4 cm [facility] Work Phone: 1 [facility] Work Phone: US Heart Transthoracicon [facility], [address] [place] [address] and TRANSTHORACIC ECHOCARDIOGRAM REPORT Patient Name: ITALIA ALLEN Reading Physician: [id number] Melly Benítez MD Study Date: 12/24/2023 Ordering Provider: [id number] RAFI WALLER MRN/PID: [id number] Fellow: Nurse: Anai Sow RN Date of /Age: 6 1955 [employer] Caretaker: Ke mancia RDCS Gender assigned at M Additional Staff: : Height: 177.80 cm Admit Date: Weight: 112.04 kg Admission Status: Inpatient - Routine BSA / BMI: 2.28 m2 / 35.44 kg/m2 Blood Pressure: 151/79 mmHg Department Location: [facility] Non Invasive Study Type: TRANSTHORACIC ECHO (TTE) COMPLETE Diagnosis/ICD: Non ST elevation (NSTEMI) myocardial infarction-I21.4; Atherosclerotic heart disease of [place] coronary artery without angina pectoris-I25.10; Acute on chronic systolic (congestive) heart failure (CHF)-I50.23 Indication: ADHF, CHF, NSTEMI CPT Code: Echo Complete w Full Doppler-[id number] Patient History: Pertinent History: NSTEMI, CAD, HTN, [...] machine learning algorithm ([employer]Go Heart Failure by [employer]), the analysis of the apical 4-chamber echocardiogram [...] not included)... Melly Alfaro MD - 12/24/2023 [facility], [address] [place] [address] and TRANSTHORACIC ECHOCARDIOGRAM REPORT Patient Name: ITALIA ALLEN Reading Physician: [id number] Melly Benítez MD Study Date: 12/24/2023 Ordering Provider: [id number] RAFI WALLER MRN/PID: [id number] Fellow: Nurse: Anai Sow RN Date of /Age: 6 1955 [employer] Caretaker: Ke mancia RDSHANI Gender assigned at M Additional Staff: : Height: 177.80 cm Admit Date: Weight: 112.04 kg Admission Status: Inpatient - Routine BSA / BMI: 2.28 m2 / 35.44 kg/m2 Blood Pressure: 151/79 mmHg Department Location: [facility] Non Invasive Study Type: TRANSTHORACIC ECHO (TTE) COMPLETE Diagnosis/ICD: Non ST elevation (NSTEMI) myocardial infarction-I21.4; Atherosclerotic heart disease of [place] coronary artery without angina pectoris-I25.10; Acute on chronic systolic (congestive) heart failure (CHF)-I50.23 Indication: ADHF, CHF, NSTEMI CPT Code: Echo Complete w Full Doppler-[id number] Patient History: Pertinent History: NSTEMI, CAD, HTN, [...] an FDA cleared automated machine learning algorithm ([employer] Heart Failure by [employer]), the analysis of the apical 4-chamber echocardiogram [...] [place] Area A2C: 22.6 cm2 [place] A4C: 7.6 cm [place] A2C: 7.3 cm LA Volume Index: 29.2 ml/m2 AORTA MEASUREMENTS: Normal Ranges: Asc Ao, d: 3.20 cm (2.1-3.4cm) LV SYSTOLIC FUNC (more content not included)... [facility] Work Phone: Blood type and Indirect anti body screen panel (Bld)on 12-23-2023 ABO group Nom (Bld) A Normal [facility] Comment on above: Performed By: #### 5 902-2 #### ERICA Tam ([id number]) [facility] ([facility]) [address] [place] [address] Blood group antibody screen Ql Negative [facility] Comment on above: Performed By: #### 5 902-2 #### ERICA Tam ([id number]) [facility] ([facility]) [address] [place] [address] D Ag Ql (Bld) Positive [facility] Comment on above: Result Comment: 2nd ABO test required. Order and Collect VERAB Performed By: #### 5 902-2 #### ERICA Tam ([id number]) [facility] ([facility]) [address] [place] [address] CBC panel Auto (Bld)on 12-22 Erythrocyte distribution width (RBC) [Ratio] 16.2 % High 11.5 - 14.5 % [facility] Hematocrit (Bld) [Volume fraction] 25.6 % Low 41.0 - 52.0 % [facility] Hemoglobin (Bld) [Mass/Vol] 7.8 g/dL Low 13.5 - 17.5 g/dL [facility] Interpretation and review of laboratory results Abnormal [facility] MCH (RBC) [Entitic mass] 28.5 pg 26.0 - 34.0 pg [facility] MCHC (RBC) [Mass/Vol] 30.5 g/dL Low 32.0 - 36.0 g/dL [facility] MCV (RBC) [Entitic vol] 93 fL 80 - 100 fL [facility] Nucleated RBC/100 WBC (Bld) [Ratio] 0 % [facility] Platelets (Bld) [#/Vol] 327 10*3/uL [facility] RBC (Bld) [#/Vol] 2.74 10*6/uL [facility] WBC (Bld) [#/Vol] 9.3 10*3/uL [facility] Erythrocyte distribution width (RBC) [Ratio] 16.2 % High 11.5-14.5 [facility] Comment on above: Performed By: #### 5 902-2 #### ERICA Tam ([id number]) [facility] ([facility]) [address] [place] [address] 34488 Hematocrit (Bld) [Volume fraction] 25.6 % Low 41.0-52.0 [facility] Comment on above: Performed By: #### 5 902-2 #### ERICA Tam ([id number]) [facility] ([facility]) [address] [place] [address] 05623 Hemoglobin (Bld) [Mass/Vol] 7.8 g/dL Low 13.5-17.5 [facility] Comment on above: Performed By: #### 5 902-2 #### ERICA Tam ([id number]) [facility] ([facility]) [address] [place] [address] 15520 MCH (RBC) [Entitic mass] 28.5 pg Normal 26.0-34.0 [facility] Comment on above: Performed By: #### 5 902-2 #### ERICA Tam ([id number]) [facility] ([facility]) [address] [place] [address] 62641 MCHC (RBC) [Mass/Vol] 30.5 g/dL Low 32.0-36.0 [facility] Comment on above: Performed By: #### 5 902-2 #### ERICA Tam ([id number]) [facility] ([facility]) [address] [place] [address] 29086 MCV (RBC) [Entitic vol] 93 fL Normal 80-100 [facility] Comment on above: Performed By: #### 5 902-2 #### ERICA Tam ([id number]) [facility] ([facility]) [address] [place] [address] 90782 Nucleated RBC/100 WBC (Bld) [Ratio] 0.0 /100 WBCs Normal 0.0-0.0 [facility] Comment on above: Performed By: #### 5 902-2 #### ERICA Tam ([id number]) [facility] ([facility]) [address] [place] [address] 34078 Platelets (Bld) [#/Vol] 327 x10*3/uL Normal 150-450 [facility] Comment on above: Performed By: #### 5 902-2 #### ERICA Tam ([id number]) [facility] ([facility]) [address] [place] [address] 44011 RBC (Bld) [#/Vol] 2.74 x10*6/uL Low 4.50-5.90 [facility] Comment on above: Performed By: #### 5 902-2 #### ERICA Tam ([id number]) [facility] ([facility]) [address] [place] [address] 98966 WBC (Bld) [#/Vol] 9.3 x10*3/uL Normal 4.4-11.3 [facility] Comment on above: Performed By: #### 5 902-2 #### ERICA Tam ([id number]) [facility] ([facility]) [address] [place] [address] 36672 Cobalamin (Vitamin B12) [Mas s/Vol]on 12-23-2023 Interpretation and review of laboratory results Normal [facility] Cobalaminson 12-23-2023 Cobalamin (Vitamin B12) [Mass/Vol] 283 pg/mL Normal 211-911 [facility] Comment on above: Performed By: #### 5 902-2 #### ERICA Tam ([id number]) [facility] ([facility]) [address] [place] [address] 16841 Ferritinon 12-23-2023 Ferritin [Mass/Vol] 198 ng/mL 20 - 300 ng/mL [facility] Ferritin [Mass/Vol]on 2023 Interpretation and review of laboratory results Normal [facility] Folateon 12-23-2023 Folate [Mass/Vol] 5.6 ng/mL 5.0 - PINF ng/mL [facility] Folate [Mass/Vol] 5.6 ng/mL Normal >5.0 [facility] Comment on above: Order Comment: If val monroe has not had PT + INR in the last 24 hours. Nursing to release order. Performed By: #### 5 902-2 #### ERICA Tam ([id number]) [facility] ([facility]) [address] [place] [address] 11330 Folate [Mass/Vol]on 12-23-19 Interpretation and review of laboratory results Normal [facility] Low <3.4 Borderline 3.4-5.0 Normal >5.0 Patients receiving more than 5 mg/day of biotin may have interference in test results. A sample should be taken no sooner than eight hours after previous dose. Contact the testing laboratory for additional information. [facility] Glucose Test strip manual (B ld) [Mass/Vol]on 12-23-2023 Glucose [Mass/Vol] 186 mg/dL High 74 - 99 mg/dL [facility] Interpretation and review of laboratory results Abnormal [facility] Glucose [Mass/Vol] 186 mg/dL High 74-99 [facility] Comment on above: Performed By: #### 5 902-2 #### ERICA Tam ([id number]) [facility] ([facility]) [address] [place] [address] 38150 Glucose [Mass/Vol] 100 mg/dL High 74 - 99 mg/dL [facility] Interpretation and review of laboratory results Abnormal [facility] Glucose [Mass/Vol] 100 mg/dL High 74-99 [facility] Comment on above: Performed By: #### 5 902-2 #### ERICA Tam ([id number]) [facility] ([facility]) [address] [place] [address] 64295 Glucose [Mass/Vol] 126 mg/dL High 74 - 99 mg/dL [facility] Interpretation and review of laboratory results Abnormal [facility] Glucose [Mass/Vol] 126 mg/dL High 74-99 [facility] Comment on above: Performed By: #### 5 902-2 #### ERICA Tam ([id number]) [facility] ([facility]) [address] [place] [address] 74134 Glucose [Mass/Vol] 159 mg/dL High 74 - 99 mg/dL [facility] Interpretation and review of laboratory results Abnormal [facility] Glucose [Mass/Vol] 159 mg/dL High 74-99 [facility] Comment on above: Performed By: #### 5 902-2 #### ERICA Tam ([id number]) [facility] ([facility]) [address] [place] [address] 91227 Heparin Assayon 12-23-2023 Heparin unfractionated Chromogenic method Qn (PPP) 0.4 See Comment Below for Therapeutic Ranges IU/mL [facility] Heparin unfractionated Chromogenic method Qn (PPP) 0.4 See Comment Below for Therapeutic Ranges IU/mL [facility] Heparin unfractionated Chrom ogenic method Qn (PPP)on 12-23-2023 Interpretation and review of laboratory results Normal [facility] The therapeutic reference range for UFH may be either 0.3-0.6 IU/mL or 0.3-0.7 IU/mL based on the clinical setting for anticoagulant therapy and the associated nomogram used. For Heparin dosing guidelines based on clinical scenario and Heparin Assay results, please refer to local Pharmacy and the [facility] Guidelines for Anticoagulation Therapy available on the [facility] intranet at: [email or web address] [email or web address]_ Guidelines_for_Anticoagu .aspx [facility] Interpretation and review of laboratory results Normal [facility] The therapeutic reference range for UFH may be either 0.3-0.6 IU/mL or 0.3-0.7 IU/mL based on the clinical setting for anticoagulant therapy and the associated nomogram used. For Heparin dosing guidelines based on clinical scenario and Heparin Assay results, please refer to local Pharmacy and the [facility] Guidelines for Anticoagulation Therapy available on the [facility] intranet at: [email or web address] [email or web address]/[email or web address]/[email or web address] es/[facility]_ Guidelines_for_Anticoagu .aspx [facility] Heparin.unfractionatedon Heparin unfractionated Chromogenic method Qn (PPP) 0.4 IU/mL Normal See Comment Below for Therapeutic Ranges [facility] Comment on above: Order Comment: If val monroe has not had PT + INR in the last 24 hours. Nursing to release order. Performed By: #### 5 902-2 #### ERICA Tam ([id number]) [facility] ([facility]) [address] [place] [address] Heparin unfractionated Chromogenic method Qn (PPP) 0.4 IU/mL Normal See Comment Below for Therapeutic Ranges [facility] Comment on above: Order Comment: If val monroe has not had PT + INR in the last 24 hours. Nursing to release order. Performed By: #### 5 902-2 #### ERICA Tam ([id number]) [facility] ([facility]) [address] [place] [address] Iron and Iron binding capaci ty panelon 12-23-2023 Interpretation and review of laboratory results Abnormal [facility] Iron [Mass/Vol] 34 ug/dL Low 35 - 150 ug/dL [facility] Iron binding capacity [Mass/Vol] 231 ug/dL Low 240 - 445 ug/dL [facility] Iron binding capacity.unsaturated [Mass/Vol] 197 ug/dL 110 - 370 ug/dL [facility] Iron saturation [Mass fraction] 15 % Low 25 - 45 % [facility] Lipid 1996 panelon 4 Cholesterol [Mass/Vol] 102 mg/dL 0 - 1 99 mg/dL [facility] Comment on above: Age Desirable Borderline High [...] dosing. Cholesterol in HDL [Mass/Vol] 26.4 mg/dL [facility] Comment on above: Age Very Low Low Normal High 0-19 Y < 35 < 40 40-45 ---- 20-24 Y ---- < 40 >45 ---- >24 Y ---- < 40 40-60 >60 Cholesterol in LDL [Mass/Vol] 39 mg/dL NINF - 99 mg/dL [facility] Comment on above: Near Borderline AGE Desirable Optimal High High Very High 0-19 Y 0 - 109 --- 110-129 >/= 130 ---- 20-24 Y 0 - 119 --- 120-159 >/= 160 ---- >24 Y 0 - 99 100-129 130-159 160-189 >/=190 Cholesterol in VLDL [Mass/Vol] 37 mg/dL 0 - 40 mg/dL [facility] Cholesterol.total/Cele sterol in HDL [Mass ratio] 3.9 {ratio} [facility] Comment on above: Ref Values Desirable < 3.4 High Risk > 5.0 Interpretation and review of laboratory results Abnormal [facility] Non HDL Cholesterol 76 mg/dL 0 - 149 mg/dL [facility] Comment on above: Age Desirable Borderline High High Very High 0-19 Y 0 - 119 120 - 144 >/= 145 >/= 160 20-24 Y 0 - 149 150 - 189 >/= 190 ---- >24 Y 30 mg/dL above LDL Cholesterol goal Triglyceride [Mass/Vol] 185 mg/dL High 0 - 149 mg/dL [facility] Comment on above: Age Desirable Border line [...] be performed immediately prior to Metamizole dosing. [facility] Magnesiumon 12-23-2023 Magnesium [Mass/Vol] 1.95 mg/dL 1.60 - 2.40 mg/dL [facility] Magnesium [Mass/Vol] 1.95 mg/dL Normal 1.60-2.40 [facility] Comment on above: Performed By: #### 5 902-2 #### ERICA Tam ([id number]) [facility] ([facility]) [address] [place] [address] Magnesium [Mass/Vol]on 12-22 Interpretation and review of laboratory results Normal [facility] No Panel Informationon 12-22 [facility] Renal function 2000 panelon 12-23-2023 Albumin BCP dye [Mass/Vol] 3.2 g/dL Low 3.4 - 5.0 g/dL [facility] Anion gap [Moles/Vol] 12 mmol/L 10 - 2 0 mmol/L [facility] Calcium [Mass/Vol] 8.7 mg/dL 8.6 - 10. 6 mg/dL [facility] Chloride [Moles/Vol] 103 mmol/L 98 - 10 7 mmol/L [facility] CO2 [Moles/Vol] 29 mmol/L 21 - 32 mmol/L [facility] Creatinine [Mass/Vol] 1.68 mg/dL High 0.50 - 1.30 mg/dL [facility] GFR/1.73 sq M.predicted among non-blacks MDRD (S/P/Bld) [Vol rate/Area] 44 mL/min/{1.73_m2} Low - PINF [facility] Comment on above: Calculations of mercedez mated GFR are performed using the 2020 CKD-EPI Study Refit equation without the race variable for the IDMS-Traceable creatinine methods. https://jasn.asnjournals.org/content/early/ASN.2020 560499 Glucose [Mass/Vol] 182 mg/dL High 74 - 99 mg/dL [facility] Interpretation and review of laboratory results Abnormal [facility] Phosphate [Mass/Vol] 3.4 mg/dL 2.5 - 4 .9 mg/dL [facility] Comment on above: The performance cecilia acteristics of phosphorus testing in heparinized plasma have been validated by the individual laboratory site where testing is performed. Testing on heparinized plasma is not approved by the FDA; however, such approval is not necessary. Potassium [Moles/Vol] 3.8 mmol/L 3.5 - 5.3 mmol/L [facility] Sodium [Moles/Vol] 140 mmol/L 136 - 145 mmol/L [facility] Urea nitrogen [Mass/Vol] 49 mg/dL High 6 - 23 mg/dL [facility] Albumin BCP dye [Mass/Vol] 3.2 g/dL Low 3.4-5.0 [facility] Comment on above: Performed By: #### 5 902-2 #### ERICA Tam ([id number]) [facility] ([facility]) [address] [place] [address] Anion gap [Moles/Vol] 12 mmol/L Normal 10-20 [facility] Comment on above: Performed By: #### 5 902-2 #### ERICA Tam ([id number]) [facility] ([facility]) [address] [place] [address] Calcium [Mass/Vol] 8.7 mg/dL Normal 8.6-10.6 [facility] Comment on above: Performed By: #### 5 902-2 #### ERICA MCDONALD L ([id number]) [facility] ([facility]) [address] [place] [address] Chloride [Moles/Vol] 103 mmol/L Normal 98-107 [facility] Comment on above: Performed By: #### 5 902-2 #### ERICA MCDONALD L ([id number]) [facility] ([facility]) [address] [place] [address] CO2 [Moles/Vol] 29 mmol/L Normal 21-32 [facility] Comment on above: Performed By: #### 5 902-2 #### ERICA MCDONALD L ([id number]) [facility] ([facility]) [address] [place] [address] Creatinine [Mass/Vol] 1.68 mg/dL High 0.50-1.30 [facility] Comment on above: Performed By: #### 5 902-2 #### ERICA MCDONALD L ([id number]) [facility] ([facility]) [address] [place] [address] Glomerular filtration rate/1.73 sq M.predicted 44 mL/min/1.73m*2 Low >60 [facility] Comment on above: Result Comment: Calc ulations of estimated GFR are performed using the 2020 CKD-EPI Study Refit equation without the race variable for the IDMS-Traceable creatinine methods. https://jasn.asnjournals.org/content//ASN.2020 505914 Performed By: #### 5 902-2 #### ERICA Tam ([id number]) [facility] ([facility]) [address] [place] [address] Glucose [Mass/Vol] 182 mg/dL High 74-99 [facility] Comment on above: Performed By: #### 5 902-2 #### ERICA Tam ([id number]) [facility] ([facility]) [address] [place] [address] Phosphate [Mass/Vol] 3.4 mg/dL Normal 2.5-4.9 [facility] Comment on above: Result Comment: The performance characteristics of phosphorus testing in heparinized plasma have been validated by the individual laboratory site where testing is performed. Testing on heparinized plasma is not approved by the FDA; however, such approval is not necessary. Performed By: #### 5 902-2 #### ERICA Tam ([id number]) [facility] ([facility]) [address] [place] [address] Potassium [Moles/Vol] 3.8 mmol/L Normal 3.5-5.3 [facility] Comment on above: Performed By: #### 5 902-2 #### ERICA Tam ([id number]) [facility] ([facility]) [address] [place] [address] Sodium [Moles/Vol] 140 mmol/L Normal 136-145 [facility] Comment on above: Performed By: #### 5 902-2 #### ERICA Tam ([id number]) [facility] ([facility]) [address] [place] [address]95[address] Urea nitrogen [Mass/Vol] 49 mg/dL High 6-23 [facility] Comment on above: Performed By: #### 5 902-2 #### ERICA Tam ([id number]) [facility] ([facility]) [address] [place] [address] Vitamin B12on 12-23-2023 Cobalamin (Vitamin B12) [Mass/Vol] 283 pg/mL 211 - 911 pg/mL [facility] CBC W Auto Differential pane l (Bld)on 12-22-2023 Basophils (Bld) [#/Vol] 0.05 10*3/uL [facility] Basophils/100 WBC (Bld) 0.6 % 0.0 - 2.0 % [facility] Eosinophils (Bld) [#/Vol] 0.4 10*3/uL [facility] Eosinophils/100 WBC (Bld) 4.9 % 0.0 - 6.0 % [facility] Erythrocyte distribution width (RBC) [Ratio] 16 % High 11.5 - 14.5 % [facility] Hematocrit (Bld) [Volume fraction] 24.6 % Low 41.0 - 52.0 % [facility] Hemoglobin (Bld) [Mass/Vol] 7.5 g/dL Low 13.5 - 17.5 g/dL [facility] Immature granulocytes (Bld) [#/Vol] 0.07 10*3/uL [facility] Immature granulocytes/100 WBC (Bld) 0.9 % 0.0 - 0.9 % [facility] Comment on above: Immature Granulocyte Count (IG) includes promyelocytes, myelocytes and metamyelocytes but does not include bands. Percent differential counts (%) should be interpreted in the context of the absolute cell counts (cells/UL). Interpretation and review of laboratory results Abnormal [facility] Lymphocytes (Bld) [#/Vol] 0.79 10*3/uL Low [facility] Lymphocytes/100 WBC (Bld) 9.7 % 13.0 - 44.0 % [facility] MCH (RBC) [Entitic mass] 28.6 pg 26.0 - 34.0 pg [facility] MCHC (RBC) [Mass/Vol] 30.5 g/dL Low 32.0 - 36.0 g/dL [facility] MCV (RBC) [Entitic vol] 94 fL 80 - 100 fL [facility] Monocytes (Bld) [#/Vol] 0.68 10*3/uL [facility] Monocytes/100 WBC (Bld) 8.4 % 2.0 - 10.0 % [facility] Neutrophils (Bld) [#/Vol] 6.15 10*3/uL [facility] Comment on above: Percent differential counts (%) should be interpreted in the context of the absolute cell counts (cells/uL). Neutrophils/100 WBC (Bld) 75.5 % 40.0 - 80.0 % [facility] Nucleated RBC/100 WBC (Bld) [Ratio] 0 % [facility] Platelets (Bld) [#/Vol] 316 10*3/uL [facility] RBC (Bld) [#/Vol] 2.62 10*6/uL Low [facility] WBC (Bld) [#/Vol] 8.1 10*3/uL [facility] Basophils (Bld) [#/Vol] 0.05 x10*3/uL Normal 0.00-0.10 [facility] Comment on above: Performed By: #### 5 8077-9 #### ERICA Tam ([id number]) [facility] ([facility]) [address] [place] [address] 39542 Basophils/100 WBC (Bld) 0.6 % Normal 0.0-2.0 [facility] Comment on above: Performed By: #### 5 8077-9 #### ERICA Tam ([id number]) [facility] ([facility]) [address] [place] [address] 34918 Eosinophils (Bld) [#/Vol] 0.40 x10*3/uL Normal 0.00-0.70 [facility] Comment on above: Performed By: #### 5 8077-9 #### ERICA Tam ([id number]) [facility] ([facility]) [address] [place] [address] 52269 Eosinophils/100 WBC (Bld) 4.9 % Normal 0.0-6.0 [facility] Comment on above: Performed By: #### 5 8077-9 #### ERICA Tam ([id number]) [facility] ([facility]) [address] [place] [address] 46468 Erythrocyte distribution width (RBC) [Ratio] 16.0 % High 11.5-14.5 [facility] Comment on above: Performed By: #### 5 8077-9 #### ERICA Tam ([id number]) [facility] ([facility]) [address] [place] [address] [place] [address] Hematocrit (Bld) [Volume fraction] 24.6 % Low 41.0-52.0 [facility] Comment on above: Performed By: #### 5 8077-9 #### ERICA Tam ([id number]) [facility] ([facility]) [address] [place] [address] Hemoglobin (Bld) [Mass/Vol] 7.5 g/dL Low 13.5-17.5 [facility] Comment on above: Performed By: #### 5 8077-9 #### ERICA Tam ([id number]) [facility] ([facility]) [address] [place] [address]77 Immature granulocytes (Bld) [#/Vol] 0.07 x10*3/uL Normal 0.00-0.70 [facility] Comment on above: Performed By: #### 5 8077-9 #### ERICA Tam ([id number]) [facility] ([facility]) [address] [place] [address]116 Immature granulocytes/100 WBC (Bld) 0.9 % Normal 0.0-0.9 [facility] Comment on above: Result Comment: Daniela ture Granulocyte Count (IG) includes promyelocytes, myelocytes and metamyelocytes but does not include bands. Percent differential counts (%) should be interpreted in the context of the absolute cell counts (cells/UL). Performed By: #### 5 8077-9 #### ERICA Tam ([id number]) [facility] ([facility]) [address] [place] [address] Lymphocytes (Bld) [#/Vol] 0.79 x10*3/uL Low 1.20-4.80 [facility] Comment on above: Performed By: #### 5 8077-9 #### ERICA Tam ([id number]) [facility] ([facility]) [address] [place] [address] Lymphocytes/100 WBC (Bld) 9.7 % Normal 13.0-44.0 [facility] Comment on above: Performed By: #### 5 8077-9 #### ERICA Tam ([id number]) [facility] ([facility]) [address] [place] [address] MCH (RBC) [Entitic mass] 28.6 pg Normal 26.0-34.0 [facility] Comment on above: Performed By: #### 5 8077-9 #### ERICA Tam ([id number]) [facility] ([facility]) [address] [place] [address]46 MCHC (RBC) [Mass/Vol] 30.5 g/dL Low 32.0-36.0 [facility] Comment on above: Performed By: #### 5 8077-9 #### ERICA Tam ([id number]) [facility] ([facility]) [address] [place] [address] 91335 MCV (RBC) [Entitic vol] 94 fL Normal 80-100 [facility] Comment on above: Performed By: #### 5 8077-9 #### ERICA Tam ([id number]) [facility] ([facility]) [address] [place] [address] 24410 Monocytes (Bld) [#/Vol] 0.68 x10*3/uL Normal 0.10-1.00 [facility] Comment on above: Performed By: #### 5 8077-9 #### ERICA Tam ([id number]) [facility] ([facility]) [address] [place] [address] 72967 Monocytes/100 WBC (Bld) 8.4 % Normal 2.0-10.0 [facility] Comment on above: Performed By: #### 5 8077-9 #### ERICA Tam ([id number]) [facility] ([facility]) [address] [place] [address] 80071 Neutrophils (Bld) [#/Vol] 6.15 x10*3/uL Normal 1.20-7.70 [facility] Comment on above: Result Comment: Perc ent differential counts (%) should be interpreted in the context of the absolute cell counts (cells/uL). Performed By: #### 5 8077-9 #### ERICA Tam ([id number]) [facility] ([facility]) [address] [place] [address] 86670 Neutrophils/100 WBC (Bld) 75.5 % Normal 40.0-80.0 [facility] Comment on above: Performed By: #### 5 8077-9 #### ERICA Tam ([id number]) [facility] ([facility]) [address] [place] [address] 72228 Nucleated RBC/100 WBC (Bld) [Ratio] 0.0 /100 WBCs Normal 0.0-0.0 [facility] Comment on above: Performed By: #### 5 8077-9 #### ERICA Tam ([id number]) [facility] ([facility]) [address] [place] [address] 22622 Platelets (Bld) [#/Vol] 316 x10*3/uL Normal 150-450 [facility] Comment on above: Performed By: #### 5 8077-9 #### ERICA Tam ([id number]) [facility] ([facility]) [address] [place] [address] 54423 RBC (Bld) [#/Vol] 2.62 x10*6/uL Low 4.50-5.90 [facility] Comment on above: Performed By: #### 5 8077-9 #### ERICA Tam ([id number]) [facility] ([facility]) [address] [place] [address] 49245 WBC (Bld) [#/Vol] 8.1 x10*3/uL Normal 4.4-11.3 [facility] Comment on above: Performed By: #### 5 8077-9 #### ERICA Tam ([id number]) [facility] ([facility]) [address] [place] [address] 96397 Comprehensive metabolic 2000 panelon 12-22-2023 Albumin BCP dye [Mass/Vol] 3 g/dL Low 3.4 - 5.0 g/dL [facility] ALP [Catalytic activity/Vol] 63 U/L 33 - 136 U/L [facility] ALT With P-5'-P [Catalytic activity/Vol] 15 U/L 10 - 52 U/L [facility] Comment on above: Patients treated wit h Sulfasalazine may generate falsely decreased results for ALT. Anion gap [Moles/Vol] 17 mmol/L 10 - 2 0 mmol/L [facility] AST With P-5'-P [Catalytic activity/Vol] 12 U/L 9 - 39 U/L [facility] Bilirubin [Mass/Vol] 0.4 mg/dL 0.0 - 1 .2 mg/dL [facility] Calcium [Mass/Vol] 8.3 mg/dL Low 8.6 - 10. 6 mg/dL [facility] Chloride [Moles/Vol] 103 mmol/L 98 - 10 7 mmol/L [facility] CO2 [Moles/Vol] 23 mmol/L 21 - 32 mmol/L [facility] Creatinine [Mass/Vol] 1.95 mg/dL High 0.50 - 1.30 mg/dL [facility] GFR/1.73 sq M.predicted among non-blacks MDRD (S/P/Bld) [Vol rate/Area] 37 mL/min/{1.73_m2} Low - PINF [facility] Comment on above: Calculations of mer[place]ez mated GFR are performed using the 2020 CKD-EPI Study Refit equation without the race variable for the IDMS-Traceable creatinine methods. https://jasn.asnjournals.org/content/early/ASN.2020 255372 Glucose [Mass/Vol] 174 mg/dL High 74 - 99 mg/dL [facility] Interpretation and review of laboratory results Abnormal [facility] Potassium [Moles/Vol] 4.5 mmol/L 3.5 - 5.3 mmol/L [facility] Protein [Mass/Vol] 5.4 g/dL Low 6.4 - 8.2 g/dL [facility] Sodium [Moles/Vol] 138 mmol/L 136 - 145 mmol/L [facility] Urea nitrogen [Mass/Vol] 48 mg/dL High 6 - 23 mg/dL [facility] Albumin BCP dye [Mass/Vol] 3.0 g/dL Low 3.4-5.0 [facility] Comment on above: Performed By: #### 5 8077-9 #### ERICA Tam ([id number]) [facility] ([facility]) [address] [place] [address] 21850 ALP [Catalytic activity/Vol] 63 U/L Normal 33-136 [facility] Comment on above: Performed By: #### 5 8077-9 #### ERICA Tam ([id number]) [facility] ([facility]) [address] [place] [address] 52661 ALT With P-5'-P [Catalytic activity/Vol] 15 U/L Normal 10-52 [facility] Comment on above: Result Comment: Criselda ents treated with Sulfasalazine may generate falsely decreased results for ALT. Performed By: #### 5 8077-9 #### ERICA Tam ([id number]) [facility] ([facility]) [address] [place] [address] 27890 Anion gap [Moles/Vol] 17 mmol/L Normal 10-20 [facility] Comment on above: Performed By: #### 5 8077-9 #### ERICA Tam ([id number]) [facility] ([facility]) [address] [place] [address] 45872 AST With P-5'-P [Catalytic activity/Vol] 12 U/L Normal 9-39 [facility] Comment on above: Performed By: #### 5 8077-9 #### ERICA Tam ([id number]) [facility] ([facility]) [address] [place] [address] Bilirubin [Mass/Vol] 0.4 mg/dL Normal 0.0-1.2 [facility] Comment on above: Performed By: #### 5 8077-9 #### ERICA Tam ([id number]) [facility] ([facility]) [address] [place] [address] 45435 Calcium [Mass/Vol] 8.3 mg/dL Low 8.6-10.6 [facility] Comment on above: Performed By: #### 5 8077-9 #### ERICA Tam ([id number]) [facility] ([facility]) [address] [place] [address] Chloride [Moles/Vol] 103 mmol/L Normal 98-107 [facility] Comment on above: Performed By: #### 5 8077-9 #### ERICA MCDONALD L ([id number]) [facility] ([facility]) [address] [place] [address] CO2 [Moles/Vol] 23 mmol/L Normal 21-32 [facility] Comment on above: Performed By: #### 5 8077-9 #### ERICA Tam ([id number]) [facility] ([facility]) [address] [place] [address] 39528 Creatinine [Mass/Vol] 1.95 mg/dL High 0.50-1.30 [facility] Comment on above: Performed By: #### 5 8077-9 #### ERICA Tam ([id number]) [facility] ([facility]) [address] [place] [address] 92200 Glomerular filtration rate/1.73 sq M.predicted 37 mL/min/1.73m*2 Low >60 [facility] Comment on above: Result Comment: Calc ulations of estimated GFR are performed using the 2020 CKD-EPI Study Refit equation without the race variable for the IDMS-Traceable creatinine methods. https://jasn.asnjournals.org/content/early//ASN.2020 049131 Performed By: #### 5 8077-9 #### ERICA MCDONALD L ([id number]) [facility] ([facility]) [address] [place] [address] Glucose [Mass/Vol] 174 mg/dL High 74-99 [facility] Comment on above: Performed By: #### 5 8077-9 #### ERICA Tam ([id number]) [facility] ([facility]) [address] [place] [address] Potassium [Moles/Vol] 4.5 mmol/L Normal 3.5-5.3 [facility] Comment on above: Performed By: #### 5 8077-9 #### ERICA Tam ([id number]) [facility] ([facility]) [address] [place] [address] 30555 Protein [Mass/Vol] 5.4 g/dL Low 6.4-8.2 [facility] Comment on above: Performed By: #### 5 8077-9 #### ERICA Tam ([id number]) [facility] ([facility]) [address] [place] [address] 30138 Sodium [Moles/Vol] 138 mmol/L Normal 136-145 [facility] Comment on above: Performed By: #### 5 8077-9 #### ERICA Tam ([id number]) [facility] ([facility]) [id number] [place] [address] 18213 Urea nitrogen [Mass/Vol] 48 mg/dL High 6-23 [facility] Comment on above: Performed By: #### 5 8077-9 #### ERICA Tam ([id number]) [facility] ([facility]) [address] [place] [address] 49553 ECG 12-LEADon 12-22-2023 ECG 12-LEAD Ventricular Rate 77 Atrial Rate 77 P-R Interval 186 QRS Duration 92 Q-T Interval 378 QTC Calculation(Bazett) 427 P [place] 2 R [place] 27 T [place] 124 QRS Count 13 Q Onset 221 P Onset 128 P Offset 170 T Offset 410 QTC Fredericia 410 Diagnosis Sinus rhythm with frequent Premature ventricular complexes Nonspecific T wave abnormality Abnormal ECG When compared with ECG of 22-DEC-2023 11:44, No significant change was found Confirmed by Santiago Pope ([id number]) on 12/25/2023 11:27:31 AM Normal [facility] Ferritinon 12-22-2023 Ferritin [Mass/Vol] 198 ng/mL Normal 20-300 [facility] Comment on above: Performed By: #### 5 902-2 #### ERICA Tam ([id number]) [facility] ([facility]) [address] [place] [address] 66764 Glucose Test strip manual (B ld) [Mass/Vol]on 12-22-2023 Glucose [Mass/Vol] 191 mg/dL High 74 - 99 mg/dL [facility] Interpretation and review of laboratory results Abnormal [facility] Glucose [Mass/Vol] 191 mg/dL High 74-99 [facility] Comment on above: Performed By: #### 5 902-2 #### ERICA Tam ([id number]) [facility] ([facility]) [address] [place] [address] 28974 Glucose [Mass/Vol] 209 mg/dL High 74 - 99 mg/dL [facility] Interpretation and review of laboratory results Abnormal [facility] Glucose [Mass/Vol] 209 mg/dL High 74-99 [facility] Comment on above: Performed By: #### 5 902-2 #### ERICA Tam ([id number]) [facility] ([facility]) [address] [place] [address] 09012 Glucose [Mass/Vol] 210 mg/dL High 74 - 99 mg/dL [facility] Interpretation and review of laboratory results Abnormal [facility] Glucose [Mass/Vol] 210 mg/dL High 74-99 [facility] Comment on above: Performed By: #### 5 8077-9 #### ERICA Tam ([id number]) [facility] ([facility]) [address] [place] [address] Glucose [Mass/Vol] 171 mg/dL High 74 - 99 mg/dL [facility] Interpretation and review of laboratory results Abnormal [facility] Glucose [Mass/Vol] 171 mg/dL High 74-99 [facility] Comment on above: Performed By: #### 5 8077-9 #### ERICA Tam ([id number]) [facility] ([facility]) [address] [place] [address] HbA1c (Bld) [Mass fraction]o n 12-22-2023 Average glucose Estimated from glycated hemoglobin (Bld) [Mass/Vol] 148 mg/dL Not Established [facility] Interpretation and review of laboratory results Abnormal [facility] Diagnosis of Diabetes-Adults Non-Diabetic: < or = 5.6% Increased risk for developing diabetes: 5.7-6.4% Diagnostic of diabetes: > or = 6.5% [facility] Average glucose Estimated from glycated hemoglobin (Bld) [Mass/Vol] 148 mg/dL Normal Not Established [facility] Comment on above: Order Comment: Diagn osis of Jogxthka-HptijkTem-Kuovalbj: < or = 5.6%Increased risk for developing diabetes: 5.7-6.4%Diagnostic of diabetes: > or = 6.5% Performed By: #### 5 8077-9 #### ERICA Tam ([id number]) [facility] ([facility]) [address] [place] [address] Hemoglobin A1con 12-22-2023 HbA1c (Bld) [Mass fraction] 6.8 % High See comment [facility] Hemoglobin A1c/Hemoglobin.to guero 12-22-2023 HbA1c (Bld) [Mass fraction] 6.8 % High See comment [facility] Comment on above: Order Comment: Diagn osis of Sszxjleu-PejalrJcf-Bzfrflhp: < or = 5.6%Increased risk for developing diabetes: 5.7-6.4%Diagnostic of diabetes: > or = 6.5% Performed By: #### 5 8077-9 #### ERICA Tam ([id number]) [facility] ([facility]) [address] [place], [place] [id number] Heparin AssayOrdered By: Enrique Santiago on 12-22-2023 Heparin unfractionated Chromogenic method Qn (PPP) See Comment Below for Therapeutic Ranges IU/mL [facility] Heparin Assay, UFHon 024 Heparin unfractionated Chromogenic method Qn (PPP) 0.1 See Comment Below for Therapeutic Ranges IU/mL [facility] Heparin unfractionated Chrom ogenic method Qn (PPP)on 12-22-2023 Interpretation and review of laboratory results Normal [facility] The therapeutic reference range for UFH may be either 0.3-0.6 IU/mL or 0.3-0.7 IU/mL based on the clinical setting for anticoagulant therapy and the associated nomogram used. For Heparin dosing guidelines based on clinical scenario and Heparin Assay results, please refer to local Pharmacy and the [facility] Guidelines for Anticoagulation Therapy available on the [facility] intranet at: [email or web address] [email or web address] memorial [email or web address]/Pag es/[facility]_ Guidelines_for_Anticoagu .aspx [facility] Heparin unfractionated Chrom ogenic method Qn (PPP)Ordered By: Michael Santiago on 12-22-2023 Interpretation and review of laboratory results Normal [facility] The therapeutic reference range for UFH may be either 0.3-0.6 IU/mL or 0.3-0.7 IU/mL based on the clinical setting for anticoagulant therapy and the associated nomogram used. For Heparin dosing guidelines based on clinical scenario and Heparin Assay results, please refer to local Pharmacy and the [facility] Guidelines for Anticoagulation Therapy available on the [facility] intranet at: [email or web address]://[email or web address] [email or web address] memorial [email or web address]/Pharmacy/Pag es/[facility]_ Guidelines_for_Anticoagu .aspx [facility] Heparin.unfractionatedon Heparin unfractionated Chromogenic method Qn (PPP) 0.1 IU/mL Normal See Comment Below for Therapeutic Ranges [facility] Comment on above: Order Comment: Obtai n 4 hours after any Heparin dosage change. Nursing to release order.The therapeutic reference range for UFH may be either 0.3-0.6 IU/mL or 0.3-0.7 IU/mL based on the clinical setting for anticoagulant therapy and the associated nomogram used. For Heparin dosing guidelines based on clinical scenario and Heparin Assay results, please refer to local Pharmacy and the [facility] Guidelines for Anticoagulation Therapy available on the [facility] intranet at: [email or web address]/Pages/[facility]_Guidelines_for_Anticoagu.aspx Performed By: #### 5 8077-9 #### ERICA Tam ([id number]) [facility] ([facility]) [address] [place] [address] Heparin unfractionated Chromogenic method Qn (PPP) <0.1 Normal See Comment Below for Therapeutic Ranges [facility] Comment on above: Order Comment: The t herapeutic reference range for UFH may be either 0.3-0.6 IU/mL or 0.3-0.7 IU/mL based on the clinical setting for anticoagulant therapy and the associated nomogram used. For Heparin dosing guidelines based on clinical scenario and Heparin Assay results, please refer to local Pharmacy and the [facility] Guidelines for Anticoagulation Therapy available on the [facility] intranet at: [email or web address]/Pages/[facility]_Guidelines_for_Anticoagu.aspx Performed By: #### 5 8077-9 #### ERICA Tam ([id number]) [facility] ([facility]) [address] [place] [address] Iron and Iron binding capaci ty panelon 12-22-2023 Iron [Mass/Vol] 34 ug/dL Low 35-150 [facility] Comment on above: Performed By: #### 5 902-2 #### ERICA Tam ([id number]) [facility] ([facility]) [address] [place] [address]64 Iron binding capacity [Mass/Vol] 231 ug/dL Low 240-445 [facility] Comment on above: Performed By: #### 5 902-2 #### ERICA Tam ([id number]) [facility] ([facility]) [address] [place] [address] 77126 Iron binding capacity.unsaturated [Mass/Vol] 197 ug/dL Normal 110-370 [facility] Comment on above: Performed By: #### 5 902-2 #### ERICA Tam ([id number]) [facility] ([facility]) [address] [place] [address] 05794 Iron saturation [Mass fraction] 15 % Low 25-45 [facility] Comment on above: Performed By: #### 5 902-2 #### ERICA Tam ([id number]) [facility] ([facility]) [address] [place] [address] Lipid 1996 panelon 4 Cholesterol [Mass/Vol] 102 mg/dL Normal 0-199 Un [facility] Comment on above: Result Comment: [...] By: #### 5 902-2 #### ERICA Tam ([id number]) [facility] ([facility]) [address] [place] [address] Cholesterol in HDL [Mass/Vol] 26.4 mg/dL Normal [facility] Comment on above: Result Comment: Age Very Low Low Normal High 0-19 Y < 35 < 40 40-45 ---- 20-24 Y ---- < 40 >45 ---- >24 Y ---- < 40 40-60 >60 Performed By: #### 5 902-2 #### ERICA Tam ([id number]) [facility] ([facility]) [address] [place] [address] Cholesterol in LDL [Mass/Vol] 39 mg/dL Normal <=99 [facility] Comment on above: Result Comment: Near Borderline AGE Desirable Optimal High High Very High 0-19 Y 0 - 109 --- 110-129 >/= 130 ---- 20-24 Y 0 - 119 --- 120-159 >/= 160 ---- >24 Y 0 - 99 100-129 130-159 160-189 >/=190 Performed By: #### 5 902-2 #### ERICA Tam ([id number]) [facility] ([facility]) [address] [place] [address] Cholesterol in VLDL [Mass/Vol] 37 mg/dL Normal 0-40 [facility] Comment on above: Performed By: #### 5 902-2 #### ERICA Tam ([id number]) [facility] ([facility]) [address] [place] [address] CHOLESTEROL/HDL RATIO 3.9 Normal [facility] Comment on above: Result Comment: Ref Values Desirable < 3.4 High Risk > 5.0 Performed By: #### 5 902-2 #### ERICA Tam ([id number]) [facility] ([facility]) [address] [place] [address] 68240 NON HDL CHOLESTEROL 76 mg/dL Normal 0-149 [facility] Comment on above: Result Comment: Age Desirable Borderline High High Very High 0-19 Y 0 - 119 120 - 144 >/= 145 >/= 160 20-24 Y 0 - 149 150 - 189 >/= 190 ---- >24 Y 30 mg/dL above LDL Cholesterol goal Performed By: #### 5 902-2 #### ERICA Tam ([id number]) [facility] ([facility]) [address] [place] [address]991 Triglyceride [Mass/Vol] 185 mg/dL High 0-149 U [facility] Comment on above: Result Comment: [...] By: #### 5 902-2 #### ERICA Tam ([id number]) [facility] ([facility]) [address] [place] [address] Magnesiumon 12-22-2023 Magnesium [Mass/Vol] 1.97 mg/dL 1.60 - 2.40 mg/dL [facility] Magnesium [Mass/Vol] 1.97 mg/dL Normal 1.60-2.40 [facility] Comment on above: Performed By: #### 5 8077-9 #### ERICA Tam ([id number]) [facility] ([facility]) [address] [place] [address] Magnesium [Mass/Vol]on 12-21 Interpretation and review of laboratory results Normal [facility] Natriuretic peptide B [Mass/ Vol]on 12-22-2023 Interpretation and review of laboratory results Abnormal [facility] Natriuretic peptide B (Bld) [Mass/Vol] 306 pg/mL High 0 - 99 pg/mL [facility] <100 pg/mL - Heart failure unlikely 100-299 [...] contact their local laboratory for further information. [facility] Natriuretic peptide B (Bld) [Mass/Vol] 306 pg/mL High 0-99 [facility] Comment on above: Order Comment: <100 pg/mL - Heart failure [id number] pg/mL - Intermediate probability of acute heart [...] By: #### 5 8077-9 #### ERICA Tam ([id number]) [facility] ([facility]) [address] [place], [place] [id number] No Panel Informationon 12-21 [facility] PT and aPTT panel Coag (PPP) on 12-22-2023 aPTT Coag (PPP) [Time] 30 s Un [facility] INR Coag (PPP) [Relative time] 1.2 {INR} High 0.9 - 1.1 [facility] Interpretation and review of laboratory results Abnormal [facility] PT Coag (PPP) [Time] 13.[address] [facility] The APTT is no longe r used for monitoring Unfractionated Heparin Therapy. For monitoring Heparin Therapy, use the Heparin Assay. [facility] aPTT Coag (PPP) [Time] 30 s Normal 27-38 Un [facility] Comment on above: Order Comment: The A PTT is no longer used for monitoring Unfractionated Heparin Therapy. For monitoring Heparin Therapy, use the Heparin Assay. Performed By: #### 5 8077-9 #### ERICA Tam ([id number]) [facility] ([facility]) [address] [place], [place] [id number] INR Coag (PPP) [Relative time] 1.2 High 0.9-1.1 [facility] Comment on above: Order Comment: The A PTT is no longer used for monitoring Unfractionated Heparin Therapy. For monitoring Heparin Therapy, use the Heparin Assay. Performed By: #### 5 8077-9 #### ERICA Tam ([id number]) [facility] ([facility]) [address] [place] [address] PT Coag (PPP) [Time] 13.1 s High 9.8-12.8 [facility] Comment on above: Order Comment: The A PTT is no longer used for monitoring Unfractionated Heparin Therapy. For monitoring Heparin Therapy, use the Heparin Assay. Performed By: #### 5 8077-9 #### ERICA Tam ([id number]) [facility] ([facility]) [address] [place] [address] Tropinin I.cardiac panel Hig h sensitivity methodon 12-22-2023 Interpretation and review of laboratory results Abnormal [facility] Less than 99th percentile of normal range [...] performed using a different testing methodology at [facility] than at other [facility]. Direct result comparisons should only be made within the same method. [facility] Interpretation and review of laboratory results Abnormal [facility] Less than 99th percentile of normal range [...] performed using a different testing methodology at [facility] than at other [facility]. Direct result comparisons should only be made within the same method. [facility] Troponin I, High Sensitivity on 12-22-2023 Tropinin I.cardiac panel High sensitivity method 366 ng/L Critically high 0 - 53 ng/L [facility] Comment on above: Previous result veri fied on 12/22/2023 1726 on specimen/case [id number] called with component TRPHS for procedure Troponin I, High Sensitivity with value 492 ng/L. Tropinin I.cardiac panel High sensitivity method 492 ng/L Critically high 0 - 53 ng/L [facility] Troponin I.cardiac panelon 1 02-20-2023 Tropinin I.cardiac panel High sensitivity method 366 ng/L Critically high 0-53 [facility] Comment on above: Order Comment: If val monroe has not had PT + INR in the last 24 hours. Nursing to release order. Result Comment: Prev ious result verified on 12/22/2023 1726 on specimen/case [id number] called with component TRPHS for procedure Troponin I, High Sensitivity with value 492 ng/L. Performed By: #### 5 902-2 #### ERICA Tam ([id number]) [facility] ([facility]) [address] [place], [place] [phone] Tropinin I.cardiac panel High sensitivity method 492 ng/L Critically high 0-53 [facility] Comment on above: Order Comment: Less than [...] is performed using a differenttesting methodology at [facility] than at [facility]. Direct result comparisons should onlybe made within the same method. Performed By: #### 5 8077-9 #### ERICA Tam ([id number]) [facility] ([facility]) [address] [place] [address] XR CHEST 2 VIEWSon XR CHEST 2 VIEWS Interpreted By: Ryan Amezcua, STUDY: XR CHEST 2 VIEWS; 12/22/2023 1:16 pm INDICATION: Signs/Symptoms:Admission , CHF, NSTEMI. COMPARISON: Exam dated 10/16/2023 ACCESSION NUMBER(S): [id number] ORDERING CLINICIAN: RAIF WALLER FINDINGS: PA and lateral radiographs of [...] Ryan Banks 12/22/2023 3:40 PM Dictation workstation: [id number] [facility] XR Chest 2 Viewson 4 1. Findings suggesti ve of pulmonary interstitial edema. No focal consolidation, pneumothorax, or pleural effusion. MACRO: None Signed by: Ryan Banks 12/22/2023 3:40 PM Dictation workstation: [id number] MMODAL Interpreted By: Ryan Amezcua, STUDY: XR CHEST 2 VIEWS; 12/22/2023 1:16 pm INDICATION: Signs/Symptoms:Admission , CHF, NSTEMI. COMPARISON: Exam dated 10/16/2023 ACCESSION NUMBER(S): [id number] ORDERING CLINICIAN: RAFI WALLER FINDINGS: PA and lateral radiographs of the chest were provided. Additional PA dual energy images were also provided. Clips project over the right upper quadrant. CARDIOMEDIASTINAL SILHOUETTE: Stable enlargement of the cardiac silhouette. LUNGS: Diffusely increased interstitial markings. No focal consolidation, pneumothorax, or pleural effusion. ABDOMEN: No remarkable upper abdominal findings. BONES: No acute osseous changes. MMODAL Ryan Banks MD - 12/22/2023 Interpreted By: Ryan Banks, STUDY: XR CHEST 2 VIEWS; 12/22/2023 1:16 pm INDICATION: Signs/Symptoms:Admission , CHF, NSTEMI. COMPARISON: Exam dated 10/16/2023 ACCESSION NUMBER(S): [id number] ORDERING CLINICIAN: RAFI WALLER FINDINGS: PA and [...] Ryan Banks 12/22/2023 3:40 PM Dictation workstation: [id number] [facility] Work Phone: Radiology Study observation (narrative) [facility] Work Phone: XR Chest 2 ViewsOrdered By: Ryan Banks on 12-22-2023 [facility] Work Phone: Urology Office/Clinic Noteon 12-21-2023 Urology Office/Clinic Note Urology Office/Clinic Note Chief Complaint New Pt HPI Staff New Pt. Pt was seen at [facility] 11/19/23, pt has Seals Dysuria: denies [...] with voice recognition artificial intelligence software, specifically [email or web address], [employer] and or [employer]. Substitutions may have occurred due to the [...] retention (R33.9: Retention of urine, unspecified) F [facility] 11/19/2023 with complaints of difficulty urinating x [...] given unresolved constipation, has not been on alpha-farhad. I did discuss further evaluation with cystoscopy. [...] removal Follow-up With When Contact Information [employer] DIRECTOR, FIBER ARTIST-C, [employer], FAM, URL Additional Instructions: Patient [...] History Kidney stone: Mother. Throat cancer: Mother. Normal [facility] Comment on above: Result Comment: Elec tronically [...] for choosing us for your care. Normal [facility] ECG 12-LEADon 11-13-2023 ECG 12-LEAD Ventricular Rate 72 Atrial Rate 72 P-R Interval 188 QRS Duration 96 Q-T Interval 398 QTC Calculation(Bazett) 435 P [place] -13 R [place] 9 T [place] 36 QRS Count 12 Q Onset 216 P Onset 122 P Offset 163 T Offset 415 QTC Fredericia 423 Diagnosis Normal sinus rhythm Normal ECG When compared with ECG of 16-OCT-2023 08:50, No significant change was found Confirmed by Mere Urban ([id number]) on 11/14/2023 6:48:02 PM Normal [facility] CBC panel Auto (Bld)on 10-23 Erythrocyte distribution width (RBC) [Ratio] 15.0 % High 11.5 - 14.5 % [facility] Hematocrit (Bld) [Volume fraction] 36.3 % Low 41.0 - 52.0 % [facility] Hemoglobin (Bld) [Mass/Vol] 11.4 g/dL Low 13.5 - 17.5 g/dL [facility] Interpretation and review of laboratory results Abnormal [facility] MCH (RBC) [Entitic mass] 29.1 pg 26.0 - 34.0 pg [facility] MCHC (RBC) [Mass/Vol] 31.4 g/dL Low 32.0 - 36.0 g/dL [facility] MCV (RBC) [Entitic vol] 93 fL 80 - 100 fL [facility] Nucleated RBC/100 WBC (Bld) [Ratio] 0.0 % [facility] Platelets (Bld) [#/Vol] 313 10*3/uL [facility] RBC (Bld) [#/Vol] 3.92 10*6/uL Low [facility] WBC (Bld) [#/Vol] 8.9 10*3/uL [facility] Erythrocyte distribution width (RBC) [Ratio] 15.0 % High 11.5-14.5 [facility] Comment on above: Performed By: #### 5 8077-9 #### ERICA Tam ([id number]) [facility] ([facility]) [address] [place] [address]58[address] Hematocrit (Bld) [Volume fraction] 36.3 % Low 41.0-52.0 [facility] Comment on above: Performed By: #### 5 8077-9 #### ERICA Tam ([id number]) [facility] ([facility]) [address] [place] [address] 80376 Hemoglobin (Bld) [Mass/Vol] 11.4 g/dL Low 13.5-17.5 [facility] Comment on above: Performed By: #### 5 8077-9 #### ERICA Tam ([id number]) [facility] ([facility]) [address] [place] [address] 37550 MCH (RBC) [Entitic mass] 29.1 pg Normal 26.0-34.0 [facility] Comment on above: Performed By: #### 5 8077-9 #### ERICA Tam ([id number]) [facility] ([facility]) [address] [place] [address] 78018 MCHC (RBC) [Mass/Vol] 31.4 g/dL Low 32.0-36.0 [facility] Comment on above: Performed By: #### 5 8077-9 #### ERICA Tam ([id number]) [facility] ([facility]) [address] [place] [address] 96200 MCV (RBC) [Entitic vol] 93 fL Normal 80-100 U [facility] Comment on above: Performed By: #### 5 8077-9 #### ERICA Tam ([id number]) [facility] ([facility]) [address] [place] [address] 12446 Nucleated RBC/100 WBC (Bld) [Ratio] 0.0 /100 WBCs Normal 0.0-0.0 [facility] Comment on above: Performed By: #### 5 8077-9 #### ERICA Tam ([id number]) [facility] ([facility]) [address] [place] [address] 33314 Platelets (Bld) [#/Vol] 313 x10*3/uL Normal 150-450 [facility] Comment on above: Performed By: #### 5 8077-9 #### ERICA Tam ([id number]) [facility] ([facility]) [address] [place] [address] 46172 RBC (Bld) [#/Vol] 3.92 x10*6/uL Low 4.50-5.90 [facility] Comment on above: Performed By: #### 5 8077-9 #### ERICA Tam ([id number]) [facility] ([facility]) [address] [place] [address] 13882 WBC (Bld) [#/Vol] 8.9 x10*3/uL Normal 4.4-11.3 [facility] Comment on above: Performed By: #### 5 8077-9 #### ERICA Tam ([id number]) [facility] ([facility]) [address] [place] [address] 40293 Glucose Test strip manual (B ld) [Mass/Vol]on 10-24-2023 Glucose [Mass/Vol] 203 mg/dL High 74 - 99 mg/dL [facility] Interpretation and review of laboratory results Abnormal [facility] Glucose [Mass/Vol] 203 mg/dL High 74-99 [facility] Comment on above: Performed By: #### 5 8077-9 #### ERICA Tam ([id number]) [facility] ([facility]) [address] [place] [address] Renal function 2000 panelon 10-24-2023 Albumin BCP dye [Mass/Vol] 3.2 g/dL Low 3.4 - 5.0 g/dL [facility] Anion gap [Moles/Vol] 12 mmol/L 10 - 2 0 mmol/L [facility] Calcium [Mass/Vol] 8.4 mg/dL Low 8.6 - 10. 6 mg/dL [facility] Chloride [Moles/Vol] 105 mmol/L 98 - 10 7 mmol/L [facility] CO2 [Moles/Vol] 24 mmol/L 21 - 32 mmol/L [facility] Creatinine [Mass/Vol] 1.72 mg/dL High 0.50 - 1.30 mg/dL [facility] GFR/1.73 sq M.predicted among non-blacks MDRD (S/P/Bld) [Vol rate/Area] 42 mL/min/{1.73_m2} Low - PINF [facility] Comment on above: Calculations of mercedez mated GFR are performed using the 2020 CKD-EPI Study Refit equation without the race variable for the IDMS-Traceable creatinine methods. https://jasn.asnjournals.org/content/early/ASN.2020 931299 Glucose [Mass/Vol] 184 mg/dL High 74 - 99 mg/dL [facility] Interpretation and review of laboratory results Abnormal [facility] Phosphate [Mass/Vol] 3.9 mg/dL 2.5 - 4 .9 mg/dL [facility] Comment on above: The performance cecilia acteristics of phosphorus testing in heparinized plasma have been validated by the individual laboratory site where testing is performed. Testing on heparinized plasma is not approved by the FDA; however, such approval is not necessary. Potassium [Moles/Vol] 4.1 mmol/L 3.5 - 5.3 mmol/L [facility] Sodium [Moles/Vol] 137 mmol/L 136 - 145 mmol/L [facility] Urea nitrogen [Mass/Vol] 38 mg/dL High 6 - 23 mg/dL [facility] Albumin BCP dye [Mass/Vol] 3.2 g/dL Low 3.4-5.0 [facility] Comment on above: Performed By: #### 5 8077-9 #### ERICA MCDONALD L ([id number]) [facility] ([facility]) [address] [place] [address] 14953 Anion gap [Moles/Vol] 12 mmol/L Normal 10-20 [facility] Comment on above: Performed By: #### 5 8077-9 #### ERICA MCDONALD L ([id number]) [facility] ([facility]) [address] [place] [address] 50705 Calcium [Mass/Vol] 8.4 mg/dL Low 8.6-10.6 [facility] Comment on above: Performed By: #### 5 8077-9 #### ERICA RESTREPOMOTZER L ([id number]) [facility] ([facility]) [address] [place] [address] 59577 Chloride [Moles/Vol] 105 mmol/L Normal 98-107 [facility] Comment on above: Performed By: #### 5 8077-9 #### ERICA RESTREPOMOTZER L ([id number]) [facility] ([facility]) [address] [place] [address] 15175 CO2 [Moles/Vol] 24 mmol/L Normal 21-32 [facility] Comment on above: Performed By: #### 5 8077-9 #### ERICA RESTREPOMOTZER L ([id number]) [facility] ([facility]) [address] [place] [address] 95009 Creatinine [Mass/Vol] 1.72 mg/dL High 0.50-1.30 [facility] Comment on above: Performed By: #### 5 8077-9 #### ERICA Tam ([id number]) [facility] ([facility]) [address] [place] [id number] Glomerular filtration rate/1.73 sq M.predicted 42 mL/min/1.73m*2 Low >60 [facility] Comment on above: Result Comment: Calc ulations of estimated GFR are performed using the 2020 CKD-EPI Study Refit equation without the race variable for the IDMS-Traceable creatinine methods. https://jasn.asnjournals.org/content/early//ASN.2020 913478 Performed By: #### 5 8077-9 #### ERICA Tam ([id number]) [facility] ([facility]) [id number] [place] [address] 87193 Glucose [Mass/Vol] 184 mg/dL High 74-99 [facility] Comment on above: Performed By: #### 5 8077-9 #### ERICA Tam ([id number]) [facility] ([facility]) [address] [place] [address] 32294 Phosphate [Mass/Vol] 3.9 mg/dL Normal 2.5-4.9 [facility] Comment on above: Result Comment: The performance characteristics of phosphorus testing in heparinized plasma have been validated by the individual laboratory site where testing is performed. Testing on heparinized plasma is not approved by the FDA; however, such approval is not necessary. Performed By: #### 5 8077-9 #### ERICA Tam ([id number]) [facility] ([facility]) [address] [place] [address] Potassium [Moles/Vol] 4.1 mmol/L Normal 3.5-5.3 [facility] Comment on above: Performed By: #### 5 8077-9 #### ERICA Tam ([id number]) [facility] ([facility]) [id number] [place] [address] 64608 Sodium [Moles/Vol] 137 mmol/L Normal 136-145 [facility] Comment on above: Performed By: #### 5 8077-9 #### ERICA Tam ([id number]) [facility] ([facility]) [address] [place] [address] 45280 Urea nitrogen [Mass/Vol] 38 mg/dL High 6-23 [facility] Comment on above: Performed By: #### 5 8077-9 #### ERICA Tam ([id number]) [facility] ([facility]) [address] [place] [address] 24956 Activated clotting timeon ACT Coag (Bld) [address] Comment on above: Result Comment: Targ et ACT range will vary based on the patient population, clinical status, and surgical intervention occurring. Performed By: #### 5 8077-9 #### ERICA Tam ([id number]) [facility] ([facility]) [address] [place] [address] 50500 ACT Coag (Bld) [address] Comment on above: Result Comment: Targ et ACT range will vary based on the patient population, clinical status, and surgical intervention occurring. Performed By: #### 5 8077-9 #### ERICA Tam ([id number]) [facility] ([facility]) [address] [place] [address] 13623 ACT Coag (Bld) [address] Comment on above: Result Comment: Targ et ACT range will vary based on the patient population, clinical status, and surgical intervention occurring. Performed By: #### 5 8077-9 #### ERICA Tam ([id number]) [facility] ([facility]) [address] [place] [address] 35706 CARDIAC CATHETERIZATION PROC EDUREon 10-23-2023 CARDIAC CATHETERIZATION PROCEDURE [facility], Video Clerk, [address] [place] [address]47 Cardiovascular Catheterization Report Patient Name: ITALIA BIGGSBRISEYDA Performing Physician: [id number] Sahil Wiley MD Study Date: 10/23/2023 Verifying Physician: [id number] Sahil Wiley MD MRN/PID: [id number] Occupational Therapy Program Director/Co-Scrub: Ordering Provider: [id number] INDERJIT Nick KERNMICHELLE Date of /Age: 6 1955 / 68 years Occupational Therapy Program Director: Gender: M Fellow: [id number] Inderjit Michelle DM Admit Date: Fellow: Abdoulaye Welsh MD [...] dysfunction. Heart failure. Recent myocardial infarction. Recent CO. Medical History: Stress test performed: No. CTA performed: No. [place] accessed: No. LVEF Assessed: Yes. LVEF = [...] dyspnea. He was subsequently transferred to [facility] for further workup. 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 Transthoracic echocardiogram demonstrated an LVEF of 45 to 50%. He was then transferred to [facility] for CABG evaluation. Sadly, his about a [...] was calcified. Right Coronary Artery Distribution: Known FOAM DISPENSER. Coronary Interventions: After infiltration with 2% Lidocaine, the right was cannulated with a modified Seldinger technique with ultrasound guidance. Subsequently a 6 Czech sheath was placed antegrade in the right. A 6 Czech EBU 3.5 guide catheter was advanced over [...] rodrigo. Post-stent intravascular ultrasound assessment with the Kay Eye catheter was performed. IVUS demonstrated an [...] with 4 pa (more content not included)... [facility] CBC panel Auto (Bld)on 10-22 Erythrocyte distribution width (RBC) [Ratio] 14.6 % High 11.5 - 14.5 % [facility] Hematocrit (Bld) [Volume fraction] 37.2 % Low 41.0 - 52.0 % [facility] Hemoglobin (Bld) [Mass/Vol] 11.2 g/dL Low 13.5 - 17.5 g/dL [facility] Interpretation and review of laboratory results Abnormal [facility] MCH (RBC) [Entitic mass] 27.9 pg 26.0 - 34.0 pg [facility] MCHC (RBC) [Mass/Vol] 30.1 g/dL Low 32.0 - 36.0 g/dL [facility] MCV (RBC) [Entitic vol] 93 fL 80 - 100 fL [facility] Nucleated RBC/100 WBC (Bld) [Ratio] 0.0 % [facility] Platelets (Bld) [#/Vol] 334 10*3/uL [facility] RBC (Bld) [#/Vol] 4.01 10*6/uL Low [facility] WBC (Bld) [#/Vol] 9.6 10*3/uL [facility] Erythrocyte distribution width (RBC) [Ratio] 14.6 % High 11.5-14.5 [facility] Comment on above: Performed By: #### 7 77-3 #### ERICA Tam ([id number]) [facility] ([facility]) [address] [place] [address] 60402 Hematocrit (Bld) [Volume fraction] 37.2 % Low 41.0-52.0 [facility] Comment on above: Performed By: #### 7 77-3 #### ERICA Tam ([id number]) [facility] ([facility]) [address] [place] [address] 44336 Hemoglobin (Bld) [Mass/Vol] 11.2 g/dL Low 13.5-17.5 [facility] Comment on above: Performed By: #### 7 77-3 #### ERICA Tam ([id number]) [facility] ([facility]) [address] [place] [address] MCH (RBC) [Entitic mass] 27.9 pg Normal 26.0-34.0 [facility] Comment on above: Performed By: #### 7 77-3 #### ERICA Tam ([id number]) [facility] ([facility]) [address] [place] [address] 58591 MCHC (RBC) [Mass/Vol] 30.1 g/dL Low 32.0-36.0 [facility] Comment on above: Performed By: #### 7 77-3 #### ERICA Tam ([id number]) [facility] ([facility]) [address] [place] [address] 89574 MCV (RBC) [Entitic vol] 93 fL Normal 80-100 [facility] Comment on above: Performed By: #### 7 77-3 #### ERICA Tam ([id number]) [facility] ([facility]) [address] [place] [address] 86623 Nucleated RBC/100 WBC (Bld) [Ratio] 0.0 /100 WBCs Normal 0.0-0.0 [facility] Comment on above: Performed By: #### 7 77-3 #### ERICA Tam ([id number]) [facility] ([facility]) [address] [place] [address] 31395 Platelets (Bld) [#/Vol] 334 x10*3/uL Normal 150-450 [facility] Comment on above: Performed By: #### 7 77-3 #### ERICA Tam ([id number]) [facility] ([facility]) [address] [place] [address] 46686 RBC (Bld) [#/Vol] 4.01 x10*6/uL Low 4.50-5.90 [facility] Comment on above: Performed By: #### 7 77-3 #### ERICA Tam ([id number]) [facility] ([facility]) [address] [place] [address] 99292 WBC (Bld) [#/Vol] 9.6 x10*3/uL Normal 4.4-11.3 [facility] Comment on above: Performed By: #### 7 77-3 #### ERICA Tam ([id number]) [facility] ([facility]) [address] [place] [address] 00557 Glucose Test strip manual (B ld) [Mass/Vol]on 10-23-2023 Glucose [Mass/Vol] 238 mg/dL High 74 - 99 mg/dL [facility] Interpretation and review of laboratory results Abnormal [facility] Glucose [Mass/Vol] 238 mg/dL High 74-99 [facility] Comment on above: Performed By: #### 5 8077-9 #### ERICA Tam ([id number]) [facility] ([facility]) [address] [place] [address] 70777 Glucose [Mass/Vol] 96 mg/dL 74 - 99 mg/dL [facility] Interpretation and review of laboratory results Normal [facility] Glucose [Mass/Vol] 96 mg/dL Normal 74-99 [facility] Comment on above: Performed By: #### 7 77-3 #### ERICA Tam ([id number]) [facility] ([facility]) [address] [place] [address] 37221 Glucose [Mass/Vol] 101 mg/dL High 74 - 99 mg/dL [facility] Interpretation and review of laboratory results Abnormal [facility] Glucose [Mass/Vol] 101 mg/dL High 74-99 [facility] Comment on above: Performed By: #### 7 77-3 #### ERICA Tam ([id number]) [facility] ([facility]) [address] [place] [address] 15567 Glucose [Mass/Vol] 96 mg/dL 74 - 99 mg/dL [facility] Interpretation and review of laboratory results Normal [facility] Glucose [Mass/Vol] 96 mg/dL Normal 74-99 [facility] Comment on above: Performed By: #### 7 77-3 #### ERICA Tam ([id number]) [facility] ([facility]) [address] [place] [address] Renal function 2000 panelon 10-23-2023 Albumin BCP dye [Mass/Vol] 3.2 g/dL Low 3.4 - 5.0 g/dL [facility] Anion gap [Moles/Vol] 13 mmol/L 10 - 2 0 mmol/L [facility] Calcium [Mass/Vol] 8.5 mg/dL Low 8.6 - 10. 6 mg/dL [facility] Chloride [Moles/Vol] 103 mmol/L 98 - 10 7 mmol/L [facility] CO2 [Moles/Vol] 25 mmol/L 21 - 32 mmol/L [facility] Creatinine [Mass/Vol] 1.77 mg/dL High 0.50 - 1.30 mg/dL [facility] GFR/1.73 sq M.predicted among non-blacks MDRD (S/P/Bld) [Vol rate/Area] 41 mL/min/{1.73_m2} Low - PINF [facility] Comment on above: Calculations of mercedez mated GFR are performed using the 2020 CKD-EPI Study Refit equation without the race variable for the IDMS-Traceable creatinine methods. https://jasn.asnjournals.org/content/early/ASN.2020 449025 Glucose [Mass/Vol] 99 mg/dL 74 - 99 mg/dL [facility] Interpretation and review of laboratory results Abnormal [facility] Phosphate [Mass/Vol] 4.9 mg/dL 2.5 - 4 .9 mg/dL [facility] Comment on above: MODERATE HEMOLYSIS D ETECTED. [...] [Moles/Vol] 5.2 mmol/L 3.5 - 5.3 mmol/L [facility] Comment on above: MODERATE HEMOLYSIS D ETECTED. The result may be falsely elevated due to hemolysis or other interferents. Clinical correlation is recommended. Repeat testing may be considered. Sodium [Moles/Vol] 136 mmol/L 136 - 145 mmol/L [facility] Urea nitrogen [Mass/Vol] 39 mg/dL High 6 - 23 mg/dL [facility] Albumin BCP dye [Mass/Vol] 3.2 g/dL Low 3.4-5.0 [facility] Comment on above: Performed By: #### 7 77-3 #### ERICA Tam ([id number]) [facility] ([facility]) [address] [place] [address] 72662 Anion gap [Moles/Vol] 13 mmol/L Normal 10-20 [facility] Comment on above: Performed By: #### 7 77-3 #### ERICA RESTREPOMOTZER L ([id number]) [facility] ([facility]) [address] [place] [address] 61204 Calcium [Mass/Vol] 8.5 mg/dL Low 8.6-10.6 [facility] Comment on above: Performed By: #### 7 77-3 #### ERICA RESTREPOMOTZER L ([id number]) [facility] ([facility]) [address] [place] [address] 11769 Chloride [Moles/Vol] 103 mmol/L Normal 98-107 [facility] Comment on above: Performed By: #### 7 77-3 #### ERICA RESTREPOMOTZER L ([id number]) [facility] ([facility]) [address] [place] [address] 94953 CO2 [Moles/Vol] 25 mmol/L Normal 21-32 [facility] Comment on above: Performed By: #### 7 77-3 #### ERICA MCDONALD L ([id number]) [facility] ([facility]) [address] [place] [address] 91370 Creatinine [Mass/Vol] 1.77 mg/dL High 0.50-1.30 [facility] Comment on above: Performed By: #### 7 77-3 #### ERICA Tam ([id number]) [facility] ([facility]) [address] [place] [address] Glomerular filtration rate/1.73 sq M.predicted 41 mL/min/1.73m*2 Low >60 [facility] Comment on above: Result Comment: Calc ulations of estimated GFR are performed using the 2020 CKD-EPI Study Refit equation without the race variable for the IDMS-Traceable creatinine methods. https://jasn.asnjournals.org/content/early//ASN.2020 063772 Performed By: #### 7 77-3 #### ERICA Tam ([id number]) [facility] ([facility]) [address] [place] [address] 05232 Glucose [Mass/Vol] 99 mg/dL Normal 74-99 [facility] Comment on above: Performed By: #### 7 77-3 #### ERICA Tam ([id number]) [facility] ([facility]) [address] [place] [address] Phosphate [Mass/Vol] 4.9 mg/dL Normal 2.5-4.9 [facility] Comment on above: Result Comment: MODE [...] By: #### 7 77-3 #### ERICA Tam ([id number]) [facility] ([facility]) [address] [place] [address] Potassium [Moles/Vol] 5.2 mmol/L Normal 3.5-5.3 [facility] Comment on above: Result Comment: MODE RATE HEMOLYSIS DETECTED. The result may be falsely elevated due to hemolysis or other interferents. Clinical correlation is recommended. Repeat testing may be considered. Performed By: #### 7 77-3 #### ERICA Tam ([id number]) [facility] ([facility]) [address] [place] [address] 01954 Sodium [Moles/Vol] 136 mmol/L Normal 136-145 [facility] Comment on above: Performed By: #### 7 77-3 #### ERICA Tam ([id number]) [facility] ([facility]) [address] [place] [address] 46954 Urea nitrogen [Mass/Vol] 39 mg/dL High 6-23 [facility] Comment on above: Performed By: #### 7 77-3 #### ERICA Tam ([id number]) [facility] ([facility]) [address] [place] [address] 74157 Glucose Test strip manual (B ld) [Mass/Vol]on 10-22-2023 Glucose [Mass/Vol] 246 mg/dL High 74 - 99 mg/dL [facility] Interpretation and review of laboratory results Abnormal [facility] Glucose [Mass/Vol] 246 mg/dL High 74-99 [facility] Comment on above: Performed By: #### 7 77-3 #### ERICA Tam (54302) [facility] ([facility]) [address] [place] [address] 48162 Glucose [Mass/Vol] 186 mg/dL High 74 - 99 mg/dL [facility] Interpretation and review of laboratory results Abnormal [facility] Glucose [Mass/Vol] 186 mg/dL High 74-99 [facility] Comment on above: Performed By: #### 7 77-3 #### ERICA Tam ([id number]) [facility] ([facility]) [address] [place] [address] 36427 Glucose [Mass/Vol] 213 mg/dL High 74 - 99 mg/dL [facility] Interpretation and review of laboratory results Abnormal [facility] Glucose [Mass/Vol] 213 mg/dL High 74-99 [facility] Comment on above: Performed By: #### 7 77-3 #### ERICA Tam ([id number]) [facility] ([facility]) [address] [place] [address] Glucose [Mass/Vol] 143 mg/dL High 74 - 99 mg/dL [facility] Interpretation and review of laboratory results Abnormal [facility] Glucose [Mass/Vol] 143 mg/dL High 74-99 [facility] Comment on above: Performed By: #### 7 77-3 #### ERICA Tam ([id number]) [facility] ([facility]) [address] [place] [address] Renal function 2000 panelon 10-22-2023 Albumin BCP dye [Mass/Vol] 3.3 g/dL Low 3.4 - 5.0 g/dL [facility] Anion gap [Moles/Vol] 14 mmol/L 10 - 2 0 mmol/L [facility] Calcium [Mass/Vol] 8.8 mg/dL 8.6 - 10. 6 mg/dL [facility] Chloride [Moles/Vol] 101 mmol/L 98 - 10 7 mmol/L [facility] CO2 [Moles/Vol] 23 mmol/L 21 - 32 mmol/L [facility] Creatinine [Mass/Vol] 1.75 mg/dL High 0.50 - 1.30 mg/dL [facility] GFR/1.73 sq M.predicted among non-blacks MDRD (S/P/Bld) [Vol rate/Area] 42 mL/min/{1.73_m2} Low - PINF [facility] Comment on above: Calculations of mercedez mated GFR are performed using the 2020 CKD-EPI Study Refit equation without the race variable for the IDMS-Traceable creatinine methods. https://jasn.asnjournals.org/content//ASN.2020 550318 Glucose [Mass/Vol] 214 mg/dL High 74 - 99 mg/dL [facility] Interpretation and review of laboratory results Abnormal [facility] Phosphate [Mass/Vol] 4.3 mg/dL 2.5 - 4 .9 mg/dL [facility] Comment on above: The performance cecilia acteristics of phosphorus testing in heparinized plasma have been validated by the individual laboratory site where testing is performed. Testing on heparinized plasma is not approved by the FDA; however, such approval is not necessary. Potassium [Moles/Vol] 4.1 mmol/L 3.5 - 5.3 mmol/L [facility] Sodium [Moles/Vol] 134 mmol/L Low 136 - 145 mmol/L [facility] Urea nitrogen [Mass/Vol] 38 mg/dL High 6 - 23 mg/dL [facility] Albumin BCP dye [Mass/Vol] 3.3 g/dL Low 3.4-5.0 [facility] Comment on above: Performed By: #### 7 77-3 #### ERICA Tam ([id number]) [facility] ([facility]) [address] [place] [address] 61454 Anion gap [Moles/Vol] 14 mmol/L Normal 10-20 [facility] Comment on above: Performed By: #### 7 77-3 #### ERICA MCDONALD L ([id number]) [facility] ([facility]) [address] [place] [address] 57722 Calcium [Mass/Vol] 8.8 mg/dL Normal 8.6-10.6 [facility] Comment on above: Performed By: #### 7 77-3 #### ERICA RESTREPOMOMARLENY L (61111) [facility] ([facility]) [address] [place] [address] Chloride [Moles/Vol] 101 mmol/L Normal 98-107 [facility] Comment on above: Performed By: #### 7 77-3 #### ERICA RESTREPOMOTZER L ([id number]) [facility] ([facility]) [address] [place] [address] CO2 [Moles/Vol] 23 mmol/L Normal 21-32 [facility] Comment on above: Performed By: #### 7 77-3 #### ERICA RESTREPOMOTZER L (06854) [facility] ([facility]) [address] [place] [address] 57199 Creatinine [Mass/Vol] 1.75 mg/dL High 0.50-1.30 [facility] Comment on above: Performed By: #### 7 77-3 #### ERICA Tam (60527) [facility] ([facility]) [address] [place] [address] Glomerular filtration rate/1.73 sq M.predicted 42 mL/min/1.73m*2 Low >60 [facility] Comment on above: Result Comment: Calc ulations of estimated GFR are performed using the 2020 CKD-EPI Study Refit equation without the race variable for the IDMS-Traceable creatinine methods. https://jasn.asnjournals.org/content/early//ASN.2020 397452 Performed By: #### 7 77-3 #### ERICA Tam ([id number]) [facility] ([facility]) [address] [place] [address] 45206 Glucose [Mass/Vol] 214 mg/dL High 74-99 [facility] Comment on above: Performed By: #### 7 77-3 #### ERICA Tam (52192) [facility] ([facility]) [address] [place] [address] 71434 Phosphate [Mass/Vol] 4.3 mg/dL Normal 2.5-4.9 [facility] Comment on above: Result Comment: The performance characteristics of phosphorus testing in heparinized plasma have been validated by the individual laboratory site where testing is performed. Testing on heparinized plasma is not approved by the FDA; however, such approval is not necessary. Performed By: #### 7 77-3 #### ERICA Tam ([id number]) [facility] ([facility]) [address] [place] [address] Potassium [Moles/Vol] 4.1 mmol/L Normal 3.5-5.3 [facility] Comment on above: Performed By: #### 7 77-3 #### ERICA Tam ([id number]) [facility] ([facility]) [address] [place] [address] 46432 Sodium [Moles/Vol] 134 mmol/L Low 136-145 [facility] Comment on above: Performed By: #### 7 77-3 #### ERICA Tam ([id number]) [facility] ([facility]) [address] [place] [address] 97435 Urea nitrogen [Mass/Vol] 38 mg/dL High 6-23 [facility] Comment on above: Performed By: #### 7 77-3 #### ERICA Tam ([id number]) [facility] ([facility]) [address] [place] [address] 31048 Glucose Test strip manual (B ld) [Mass/Vol]on 10-21-2023 Glucose [Mass/Vol] 189 mg/dL High 74 - 99 mg/dL [facility] Interpretation and review of laboratory results Abnormal [facility] Glucose [Mass/Vol] 189 mg/dL High 74-99 [facility] Comment on above: Performed By: #### 3 274-8 #### ERICA Tam ([id number]) [facility] ([facility]) [address] [place] [address] 00597 Glucose [Mass/Vol] 258 mg/dL High 74 - 99 mg/dL [facility] Interpretation and review of laboratory results Abnormal [facility] Glucose [Mass/Vol] 258 mg/dL High 74-99 [facility] Comment on above: Performed By: #### 3 274-8 #### ERICA Tam ([id number]) [facility] ([facility]) [address] [place] [address] 47717 Glucose [Mass/Vol] 392 mg/dL High 74 - 99 mg/dL [facility] Interpretation and review of laboratory results Abnormal [facility] Glucose [Mass/Vol] 392 mg/dL High 74-99 [facility] Comment on above: Performed By: #### 3 274-8 #### ERICA Tam ([id number]) [facility] ([facility]) [address] [place] [address] [place] [address] Glucose [Mass/Vol] 254 mg/dL High 74 - 99 mg/dL [facility] Interpretation and review of laboratory results Abnormal [facility] Glucose [Mass/Vol] 254 mg/dL High 74-99 [facility] Comment on above: Performed By: #### 3 274-8 #### ERICA Tam ([id number]) [facility] ([facility]) [address] [place] [address] 43527 Glucose [Mass/Vol] 296 mg/dL High 74 - 99 mg/dL [facility] Interpretation and review of laboratory results Abnormal [facility] Glucose [Mass/Vol] 296 mg/dL High 74-99 [facility] Comment on above: Performed By: #### 3 274-8 #### ERICA Tam ([id number]) [facility] ([facility]) [address] [place] [address] 34029 CBC panel Auto (Bld)on 10-19 Erythrocyte distribution width (RBC) [Ratio] 14.6 % High 11.5 - 14.5 % [facility] Hematocrit (Bld) [Volume fraction] 34.7 % Low 41.0 - 52.0 % [facility] Hemoglobin (Bld) [Mass/Vol] 11.2 g/dL Low 13.5 - 17.5 g/dL [facility] Interpretation and review of laboratory results Abnormal [facility] MCH (RBC) [Entitic mass] 28.9 pg 26.0 - 34.0 pg [facility] MCHC (RBC) [Mass/Vol] 32.3 g/dL 32.0 - 36.0 g/dL [facility] MCV (RBC) [Entitic vol] 89 fL 80 - 100 fL [facility] Nucleated RBC/100 WBC (Bld) [Ratio] 0.0 % [facility] Platelets (Bld) [#/Vol] 293 10*3/uL [facility] RBC (Bld) [#/Vol] 3.88 10*6/uL Low [facility] WBC (Bld) [#/Vol] 8.6 10*3/uL [facility] Erythrocyte distribution width (RBC) [Ratio] 14.6 % High 11.5-14.5 [facility] Comment on above: Performed By: #### 3 274-8 #### ERICA Tam ([id number]) [facility] ([facility]) [address] [place] [address] 36373 Hematocrit (Bld) [Volume fraction] 34.7 % Low 41.0-52.0 [facility] Comment on above: Performed By: #### 3 274-8 #### ERICA Tam ([id number]) [facility] ([facility]) [address] [place] [address] 57398 Hemoglobin (Bld) [Mass/Vol] 11.2 g/dL Low 13.5-17.5 [facility] Comment on above: Performed By: #### 3 274-8 #### ERICA Tam ([id number]) [facility] ([facility]) [address] [place] [address] 70049 MCH (RBC) [Entitic mass] 28.9 pg Normal 26.0-34.0 [facility] Comment on above: Performed By: #### 3 274-8 #### ERICA Tam ([id number]) [facility] ([facility]) [address] [place] [address] 05866 MCHC (RBC) [Mass/Vol] 32.3 g/dL Normal 32.0-36.0 [facility] Comment on above: Performed By: #### 3 274-8 #### ERICA Tam ([id number]) [facility] ([facility]) [address] [place] [address] 14470 MCV (RBC) [Entitic vol] 89 fL Normal 80-100 [facility] Comment on above: Performed By: #### 3 274-8 #### ERICA Tam ([id number]) [facility] ([facility]) [address] [place] [address] 69567 Nucleated RBC/100 WBC (Bld) [Ratio] 0.0 /100 WBCs Normal 0.0-0.0 [facility] Comment on above: Performed By: #### 3 274-8 #### ERICA Tam ([id number]) [facility] ([facility]) [address] [place] [address] 98862 Platelets (Bld) [#/Vol] 293 x10*3/uL Normal 150-450 [facility] Comment on above: Performed By: #### 3 274-8 #### ERICA Tam ([id number]) [facility] ([facility]) [address] [place] [address] 69426 RBC (Bld) [#/Vol] 3.88 x10*6/uL Low 4.50-5.90 [facility] Comment on above: Performed By: #### 3 274-8 #### ERICA Tam ([id number]) [facility] ([facility]) [address] [place] [address] 35990 WBC (Bld) [#/Vol] 8.6 x10*3/uL Normal 4.4-11.3 [facility] Comment on above: Performed By: #### 3 274-8 #### ERICA Tam ([id number]) [facility] ([facility]) [address] [place] [address] 62869 Glucose Test strip manual (B ld) [Mass/Vol]on 10-20-2023 Glucose [Mass/Vol] 298 mg/dL High 74 - 99 mg/dL [facility] Interpretation and review of laboratory results Abnormal [facility] Glucose [Mass/Vol] 298 mg/dL High 74-99 [facility] Comment on above: Performed By: #### 3 274-8 #### ERICA Tam ([id number]) [facility] ([facility]) [address] [place] [address] 62358 Glucose [Mass/Vol] 298 mg/dL High 74 - 99 mg/dL [facility] Interpretation and review of laboratory results Abnormal [facility] Glucose [Mass/Vol] 298 mg/dL High 74-99 [facility] Comment on above: Performed By: #### 3 274-8 #### ERICA Tam ([id number]) [facility] ([facility]) [address] [place] [address] 02695 Glucose [Mass/Vol] 294 mg/dL High 74 - 99 mg/dL [facility] Interpretation and review of laboratory results Abnormal [facility] Glucose [Mass/Vol] 294 mg/dL High 74-99 [facility] Comment on above: Performed By: #### T HYDS #### ERICA Tam ([id number]) [facility] ([facility]) [address] [place] [address] 02815 Glucose [Mass/Vol] 173 mg/dL High 74 - 99 mg/dL [facility] Interpretation and review of laboratory results Abnormal [facility] Glucose [Mass/Vol] 173 mg/dL High 74-99 [facility] Comment on above: Performed By: #### T HYDS #### ERICA Tam ([id number]) [facility] ([facility]) [address] [place] [address] 54809 Glucose [Mass/Vol] 146 mg/dL High 74 - 99 mg/dL [facility] Interpretation and review of laboratory results Abnormal [facility] Glucose [Mass/Vol] 146 mg/dL High 74-99 [facility] Comment on above: Performed By: #### T HYDS #### ERICA Tam ([id number]) [facility] ([facility]) [address] [place] [address] 60049 Magnesiumon 10-20-2023 Magnesium [Mass/Vol] 1.74 mg/dL 1.60 - 2.40 mg/dL [facility] Magnesium [Mass/Vol] 1.74 mg/dL Normal 1.60-2.40 [facility] Comment on above: Performed By: #### 3 274-8 #### ERICA Tam ([id number]) [facility] ([facility]) [address] [place] [address], [place] [address] Magnesium [Mass/Vol]on 10-19 Interpretation and review of laboratory results Normal [facility] No Panel Informationon 10-19 [facility] Renal function 2000 panelon 10-20-2023 Albumin BCP dye [Mass/Vol] 3.3 g/dL Low 3.4 - 5.0 g/dL [facility] Anion gap [Moles/Vol] 11 mmol/L 10 - 2 0 mmol/L [facility] Calcium [Mass/Vol] 8.5 mg/dL Low 8.6 - 10. 6 mg/dL [facility] Chloride [Moles/Vol] 102 mmol/L 98 - 10 7 mmol/L [facility] CO2 [Moles/Vol] 25 mmol/L 21 - 32 mmol/L [facility] Creatinine [Mass/Vol] 1.89 mg/dL High 0.50 - 1.30 mg/dL [facility] GFR/1.73 sq M.predicted among non-blacks MDRD (S/P/Bld) [Vol rate/Area] 38 mL/min/{1.73_m2} Low - PINF [facility] Comment on above: Calculations of mercedez mated GFR are performed using the 2020 CKD-EPI Study Refit equation without the race variable for the IDMS-Traceable creatinine methods. https://jasn.asnjournals.org/content/early/ASN.2020 846008 Glucose [Mass/Vol] 323 mg/dL High 74 - 99 mg/dL [facility] Interpretation and review of laboratory results Abnormal [facility] Phosphate [Mass/Vol] 3.0 mg/dL 2.5 - 4 .9 mg/dL [facility] Comment on above: The performance cecilia acteristics of phosphorus testing in heparinized plasma have been validated by the individual laboratory site where testing is performed. Testing on heparinized plasma is not approved by the FDA; however, such approval is not necessary. Potassium [Moles/Vol] 3.9 mmol/L 3.5 - 5.3 mmol/L [facility] Sodium [Moles/Vol] 134 mmol/L Low 136 - 145 mmol/L [facility] Urea nitrogen [Mass/Vol] 31 mg/dL High 6 - 23 mg/dL [facility] Albumin BCP dye [Mass/Vol] 3.3 g/dL Low 3.4-5.0 [facility] Comment on above: Performed By: #### 3 274-8 #### ERICA Tam ([id number]) [facility] ([facility]) [address] [place] [address] Anion gap [Moles/Vol] 11 mmol/L Normal 10-20 [facility] Comment on above: Performed By: #### 3 274-8 #### ERICA Tam ([id number]) [facility] ([facility]) [address] [place] [address] 10883 Calcium [Mass/Vol] 8.5 mg/dL Low 8.6-10.6 [facility] Comment on above: Performed By: #### 3 274-8 #### ERICA Tam ([id number]) [facility] ([facility]) [address] [place] [address] 99152 Chloride [Moles/Vol] 102 mmol/L Normal 98-107 [facility] Comment on above: Performed By: #### 3 274-8 #### ERICA Tam ([id number]) [facility] ([facility]) [address] [place] [address] CO2 [Moles/Vol] 25 mmol/L Normal 21-32 [facility] Comment on above: Performed By: #### 3 274-8 #### ERICA Tam ([id number]) [facility] ([facility]) [address] [place] [address] 92124 Creatinine [Mass/Vol] 1.89 mg/dL High 0.50-1.30 [facility] Comment on above: Performed By: #### 3 274-8 #### ERICA Tam ([id number]) [facility] ([facility]) [address] [place] [address] 60865 Glomerular filtration rate/1.73 sq M.predicted 38 mL/min/1.73m*2 Low >60 [facility] Comment on above: Result Comment: Calc ulations of estimated GFR are performed using the 2020 CKD-EPI Study Refit equation without the race variable for the IDMS-Traceable creatinine methods. https://jasn.asnjournals.org/content/early//ASN.2020 273560 Performed By: #### 3 274-8 #### ERICA Tam ([id number]) [facility] ([facility]) [address] [place] [address] Glucose [Mass/Vol] 323 mg/dL High 74-99 [facility] Comment on above: Performed By: #### 3 274-8 #### ERICA Tam ([id number]) [facility] ([facility]) [address] [place] [address] 25797 Phosphate [Mass/Vol] 3.0 mg/dL Normal 2.5-4.9 [facility] Comment on above: Result Comment: The performance characteristics of phosphorus testing in heparinized plasma have been validated by the individual laboratory site where testing is performed. Testing on heparinized plasma is not approved by the FDA; however, such approval is not necessary. Performed By: #### 3 274-8 #### ERICA Tam ([id number]) [facility] ([facility]) [address] [place] [address] 61457 Potassium [Moles/Vol] 3.9 mmol/L Normal 3.5-5.3 [facility] Comment on above: Performed By: #### 3 274-8 #### ERICA Tam ([id number]) [facility] ([facility]) [address] [place] [address] Sodium [Moles/Vol] 134 mmol/L Low 136-145 [facility] Comment on above: Performed By: #### 3 274-8 #### ERICA Tam ([id number]) [facility] ([facility]) [address] [place] [address] Urea nitrogen [Mass/Vol] 31 mg/dL High 6-23 [facility] Comment on above: Performed By: #### 3 274-8 #### ERICA Tam ([id number]) [facility] ([facility]) [address] [place] [address] 42953 Glucose Test strip manual (B ld) [Mass/Vol]on 10-19-2023 Glucose [Mass/Vol] 355 mg/dL High 74 - 99 mg/dL [facility] Interpretation and review of laboratory results Abnormal [facility] Glucose [Mass/Vol] 355 mg/dL High 74-99 [facility] Comment on above: Performed By: #### T HYDS #### ERICA Tam ([id number]) [facility] ([facility]) [address] [place] [address] 23490 Glucose [Mass/Vol] 249 mg/dL High 74 - 99 mg/dL [facility] Interpretation and review of laboratory results Abnormal [facility] Glucose [Mass/Vol] 249 mg/dL High 74-99 [facility] Comment on above: Performed By: #### T HYDS #### ERICA Tam ([id number]) [facility] ([facility]) [address] [place] [address] 13463 Glucose [Mass/Vol] 274 mg/dL High 74 - 99 mg/dL [facility] Interpretation and review of laboratory results Abnormal [facility] Glucose [Mass/Vol] 274 mg/dL High 74-99 [facility] Comment on above: Performed By: #### T HYDS #### ERICA Tam ([id number]) [facility] ([facility]) [address] [place] [address] 60979 Glucose [Mass/Vol] 129 mg/dL High 74 - 99 mg/dL [facility] Interpretation and review of laboratory results Abnormal [facility] Glucose [Mass/Vol] 129 mg/dL High 74-99 [facility] Comment on above: Performed By: #### T HYDS #### ERICA Tam ([id number]) [facility] ([facility]) [address] [place] [address] Glucose [Mass/Vol] 121 mg/dL High 74 - 99 mg/dL [facility] Interpretation and review of laboratory results Abnormal [facility] Glucose [Mass/Vol] 121 mg/dL High 74-99 [facility] Comment on above: Performed By: #### T HYDS #### ERICA Tam ([id number]) [facility] ([facility]) [id number] [place], [place] [id number] CBC panel Auto (Bld)on 10-17 Erythrocyte distribution width (RBC) [Ratio] 14.6 % High 11.5 - 14.5 % [facility] Hematocrit (Bld) [Volume fraction] 34.3 % Low 41.0 - 52.0 % [facility] Hemoglobin (Bld) [Mass/Vol] 10.7 g/dL Low 13.5 - 17.5 g/dL [facility] Interpretation and review of laboratory results Abnormal [facility] MCH (RBC) [Entitic mass] 28.7 pg 26.0 - 34.0 pg [facility] MCHC (RBC) [Mass/Vol] 31.2 g/dL Low 32.0 - 36.0 g/dL [facility] MCV (RBC) [Entitic vol] 92 fL 80 - 100 fL [facility] Nucleated RBC/100 WBC (Bld) [Ratio] 0.0 % [facility] Platelets (Bld) [#/Vol] 295 10*3/uL [facility] RBC (Bld) [#/Vol] 3.73 10*6/uL Low [facility] WBC (Bld) [#/Vol] 7.2 10*3/uL [facility] Erythrocyte distribution width (RBC) [Ratio] 14.6 % High 11.5-14.5 [facility] Comment on above: Performed By: #### L IPIN #### ERICA Tam ([id number]) [facility] ([facility]) [address] [place] [address] Hematocrit (Bld) [Volume fraction] 34.3 % Low 41.0-52.0 [facility] Comment on above: Performed By: #### L IPIN #### ERICA Tam ([id number]) [facility] ([facility]) [address] [place] [address] 16454 Hemoglobin (Bld) [Mass/Vol] 10.7 g/dL Low 13.5-17.5 [facility] Comment on above: Performed By: #### L IPIN #### ERICA Tam ([id number]) [facility] ([facility]) [address] [place] [address] 28620 MCH (RBC) [Entitic mass] 28.7 pg Normal 26.0-34.0 [facility] Comment on above: Performed By: #### L IPIN #### ERICA Tam ([id number]) [facility] ([facility]) [address] [place] [address] 02981 MCHC (RBC) [Mass/Vol] 31.2 g/dL Low 32.0-36.0 [facility] Comment on above: Performed By: #### L IPIN #### ERICA Tam ([id number]) [facility] ([facility]) [address] [place] [address] 98152 MCV (RBC) [Entitic vol] 92 fL Normal 80-100 [facility] Comment on above: Performed By: #### L IPIN #### ERICA Tam ([id number]) [facility] ([facility]) [address] [place] [address] 82954 Nucleated RBC/100 WBC (Bld) [Ratio] 0.0 /100 WBCs Normal 0.0-0.0 [facility] Comment on above: Performed By: #### L IPIN #### ERICA Tam ([id number]) [facility] ([facility]) [address] [place] [address] 70383 Platelets (Bld) [#/Vol] 295 x10*3/uL Normal 150-450 [facility] Comment on above: Performed By: #### L IPIN #### ERICA Tam ([id number]) [facility] ([facility]) [address] [place] [address] 84079 RBC (Bld) [#/Vol] 3.73 x10*6/uL Low 4.50-5.90 [facility] Comment on above: Performed By: #### L IPIN #### ERICA Tam ([id number]) [facility] ([facility]) [address] [place] [address] 37046 WBC (Bld) [#/Vol] 7.2 x10*3/uL Normal 4.4-11.3 [facility] Comment on above: Performed By: #### L IPIN #### ERICA Tam ([id number]) [facility] ([facility]) [address] [place] [address] 45869 Glucose Test strip manual (B ld) [Mass/Vol]on 10-18-2023 Glucose [Mass/Vol] 169 mg/dL High 74 - 99 mg/dL [facility] Interpretation and review of laboratory results Abnormal [facility] Glucose [Mass/Vol] 169 mg/dL High 74-99 [facility] Comment on above: Performed By: #### T HYDS #### ERICA Tam ([id number]) [facility] ([facility]) [address] [place] [address] 26670 Glucose [Mass/Vol] 238 mg/dL High 74 - 99 mg/dL [facility] Interpretation and review of laboratory results Abnormal [facility] Glucose [Mass/Vol] 238 mg/dL High 74-99 [facility] Comment on above: Performed By: #### L IPIN #### ERICA Tam ([id number]) [facility] ([facility]) [address] [place] [address] 64443 Glucose [Mass/Vol] 251 mg/dL High 74 - 99 mg/dL [facility] Interpretation and review of laboratory results Abnormal [facility] Glucose [Mass/Vol] 251 mg/dL High 74-99 [facility] Comment on above: Performed By: #### L IPIN #### ERICA Tam ([id number]) [facility] ([facility]) [address] [place] [address] Glucose [Mass/Vol] 191 mg/dL High 74 - 99 mg/dL [facility] Interpretation and review of laboratory results Abnormal [facility] Glucose [Mass/Vol] 191 mg/dL High 74-99 [facility] Comment on above: Performed By: #### L IPIN #### ERICA Tam ([id number]) [facility] ([facility]) [address] [place] [address] Heparin Assay, UFHon 024 Heparin unfractionated Chromogenic method Qn (PPP) 0.4 See Comment Below for Therapeutic Ranges IU/mL [facility] Heparin unfractionated Chrom ogenic method Qn (PPP)on 10-18-2023 Interpretation and review of laboratory results Normal [facility] The therapeutic reference range for UFH may be either 0.3-0.6 IU/mL or 0.3-0.7 IU/mL based on the clinical setting for anticoagulant therapy and the associated nomogram used. For Heparin dosing guidelines based on clinical scenario and Heparin Assay results, please refer to local Pharmacy and the [facility] Guidelines for Anticoagulation Therapy available on the [facility] intranet at: [email or web address] Guidelines_[email or web address] .aspx [facility] Heparin.unfractionatedon Heparin unfractionated Chromogenic method Qn (PPP) 0.4 IU/mL Normal See Comment Below for Therapeutic Ranges [facility] Comment on above: Order Comment: When two [...] please refer to local Pharmacy and the [facility] Guidelines for Anticoagulation Therapy available on the [facility] intranet at: [email or web address]_[email or web address] Performed By: #### L IPIN #### ERICA Tam ([id number]) [facility] ([facility]) [address] [place] [address] Magnesiumon 10-18-2023 Magnesium [Mass/Vol] 1.77 mg/dL 1.60 - 2.40 mg/dL [facility] Magnesium [Mass/Vol] 1.77 mg/dL Normal 1.60-2.40 [facility] Comment on above: Performed By: #### L IPIN #### ERICA Tam ([id number]) [facility] ([facility]) [address] [place] [address] Magnesium [Mass/Vol]on 10-17 Interpretation and review of laboratory results Normal [facility] No Panel Informationon 10-17 [facility] Renal function 2000 panelon 10-18-2023 Albumin BCP dye [Mass/Vol] 3.3 g/dL Low 3.4 - 5.0 g/dL [facility] Anion gap [Moles/Vol] 12 mmol/L 10 - 2 0 mmol/L [facility] Calcium [Mass/Vol] 8.5 mg/dL Low 8.6 - 10. 6 mg/dL [facility] Chloride [Moles/Vol] 103 mmol/L 98 - 10 7 mmol/L [facility] CO2 [Moles/Vol] 26 mmol/L 21 - 32 mmol/L [facility] Creatinine [Mass/Vol] 1.58 mg/dL High 0.50 - 1.30 mg/dL [facility] GFR/1.73 sq M.predicted among non-blacks MDRD (S/P/Bld) [Vol rate/Area] 47 mL/min/{1.73_m2} Low - PINF [facility] Comment on above: Calculations of mer[place] mated GFR are performed using the 2021 CKD-EPI Study Refit equation without the race variable for the IDMS-Traceable creatinine methods. https://jasn.asnjournals.org/content/ASN.2020 586329 Glucose [Mass/Vol] 220 mg/dL High 74 - 99 mg/dL [facility] Interpretation and review of laboratory results Abnormal [facility] Phosphate [Mass/Vol] 2.8 mg/dL 2.5 - 4 .9 mg/dL [facility] Comment on above: The performance cecilia acteristics of phosphorus testing in heparinized plasma have been validated by the individual laboratory site where testing is performed. Testing on heparinized plasma is not approved by the FDA; however, such approval is not necessary. Potassium [Moles/Vol] 4.1 mmol/L 3.5 - 5.3 mmol/L [facility] Sodium [Moles/Vol] 137 mmol/L 136 - 145 mmol/L [facility] Urea nitrogen [Mass/Vol] 25 mg/dL High 6 - 23 mg/dL [facility] Albumin BCP dye [Mass/Vol] 3.3 g/dL Low 3.4-5.0 [facility] Comment on above: Performed By: #### T HYDS #### ERICA Tam ([id number]) [facility] ([facility]) [address] [place] [address] 62024 Anion gap [Moles/Vol] 12 mmol/L Normal 10-20 [facility] Comment on above: Performed By: #### T HYDS #### ERICA Tam ([id number]) [facility] ([facility]) [address] [place] [address] 64029 Calcium [Mass/Vol] 8.5 mg/dL Low 8.6-10.6 [facility] Comment on above: Performed By: #### T HYDS #### ERICA Tam ([id number]) [facility] ([facility]) [address] [place] [address] 82289 Chloride [Moles/Vol] 103 mmol/L Normal 98-107 [facility] Comment on above: Performed By: #### T HYDS #### ERICA Tam ([id number]) [facility] ([facility]) [address] [place] [address] CO2 [Moles/Vol] 26 mmol/L Normal 21-32 [facility] Comment on above: Performed By: #### T HYDS #### ERICA Tam ([id number]) [facility] ([facility]) [address] [place] [address] Creatinine [Mass/Vol] 1.58 mg/dL High 0.50-1.30 [facility] Comment on above: Performed By: #### T HYDS #### ERICA Tam ([id number]) [facility] ([facility]) [address] [place] [address] Glomerular filtration rate/1.73 sq M.predicted 47 mL/min/1.73m*2 Low >60 [facility] Comment on above: Result Comment: Calc ulations of estimated GFR are performed using the 2020 CKD-EPI Study Refit equation without the race variable for the IDMS-Traceable creatinine methods. https://jasn.asnjournals.org/content//ASN.2020 353774 Performed By: #### T HYDS #### ERICA Tam ([id number]) [facility] ([facility]) [address] [place] [address] Glucose [Mass/Vol] 220 mg/dL High 74-99 [facility] Comment on above: Performed By: #### T HYDS #### ERICA Tam ([id number]) [facility] ([facility]) [address] [place] [address] Phosphate [Mass/Vol] 2.8 mg/dL Normal 2.5-4.9 [facility] Comment on above: Result Comment: The performance characteristics of phosphorus testing in heparinized plasma have been validated by the individual laboratory site where testing is performed. Testing on heparinized plasma is not approved by the FDA; however, such approval is not necessary. Performed By: #### T HYDS #### ERICA MCDONALD L ([id number]) [facility] ([facility]) [address] [place] [address] Potassium [Moles/Vol] 4.1 mmol/L Normal 3.5-5.3 [facility] Comment on above: Performed By: #### T HYDS #### ERICA SCHMOTZER L ([id number]) [facility] ([facility]) [address] [place] [address] Sodium [Moles/Vol] 137 mmol/L Normal 136-145 [facility] Comment on above: Performed By: #### T HYDS #### ERICA SCHMOTZER L ([id number]) [facility] ([facility]) [id number] [place] [address] 34746 Urea nitrogen [Mass/Vol] 25 mg/dL High 6-23 [facility] Comment on above: Performed By: #### T HYDS #### ERICA SCHMOTZER L ([id number]) [facility] ([facility]) [id number] [place] [address] 81801 XR Chest 2 Viewson 4 1. Cardiomegaly with pulmonary edema and correlate with cardiac and fluid status. Signed by: Rex Ballesteros 10/18/2023 7:12 AM Dictation workstation: [id number] Interpreted By: Rex Ballesteros, STUDY: XR CHEST 2 VIEWS; 10/16/2023 2:01 pm INDICATION: Signs/Symptoms:CABG evaluation. COMPARISON: None. ACCESSION NUMBER(S): [id number] ORDERING CLINICIAN: CATIA PATTON FINDINGS: CARDIOMEDIASTINAL SILHOUETTE: Cardiomegaly versus pericardial effusion. Right hilar calcifications. LUNGS: Low lung volumes with perihilar bibasilar atelectasis/effusions. ABDOMEN: No remarkable upper abdominal findings. BONES: No acute osseous changes. MMODAL Steph Ballesteros MD - 10/18/2023 Interpreted By: Rex Ballesteros, STUDY: XR CHEST 2 VIEWS; 10/16/2023 2:01 pm INDICATION: Signs/Symptoms:CABG evaluation. COMPARISON: None. ACCESSION NUMBER(S): [id number] ORDERING CLINICIAN: CATIA PATTON FINDINGS: CARDIOMEDIASTINAL SILHOUETTE: Cardiomegaly versus pericardial effusion. Right hilar calcifications. LUNGS: Low lung volumes with perihilar bibasilar atelectasis/effusions. ABDOMEN: No remarkable upper abdominal findings. BONES: No acute osseous changes. IMPRESSION: 1. Cardiomegaly with pulmonary edema and correlate with cardiac and fluid status. Signed by: Rex Ballesteros 10/18/2023 7:12 AM Dictation workstation: [id number] [facility] Work Phone: XR Chest 2 ViewsOrdered By: Steph Ballesteros on 10-18-2023 [facility] Work Phone: CBC panel Auto (Bld)on 10-16 Erythrocyte distribution width (RBC) [Ratio] 14.5 % 11.5 - 14.5 % [facility] Hematocrit (Bld) [Volume fraction] 35.2 % Low 41.0 - 52.0 % [facility] Hemoglobin (Bld) [Mass/Vol] 11.1 g/dL Low 13.5 - 17.5 g/dL [facility] Interpretation and review of laboratory results Abnormal [facility] MCH (RBC) [Entitic mass] 29.1 pg 26.0 - 34.0 pg [facility] MCHC (RBC) [Mass/Vol] 31.5 g/dL Low 32.0 - 36.0 g/dL [facility] MCV (RBC) [Entitic vol] 92 fL 80 - 100 fL [facility] Nucleated RBC/100 WBC (Bld) [Ratio] 0.0 % [facility] Platelets (Bld) [#/Vol] 316 10*3/uL [facility] RBC (Bld) [#/Vol] 3.82 10*6/uL [facility] WBC (Bld) [#/Vol] 8.6 10*3/uL [facility] Erythrocyte distribution width (RBC) [Ratio] 14.5 % Normal 11.5-14.5 [facility] Comment on above: Performed By: #### 2 4323-8 #### ERICA Tam ([id number]) [facility] ([facility]) [address] [place] [address] 61071 Hematocrit (Bld) [Volume fraction] 35.2 % Low 41.0-52.0 [facility] Comment on above: Performed By: #### 2 4323-8 #### ERICA Tam ([id number]) [facility] ([facility]) [address] [place] [address] 19478 Hemoglobin (Bld) [Mass/Vol] 11.1 g/dL Low 13.5-17.5 [facility] Comment on above: Performed By: #### 2 432-8 #### ERICA Tam ([id number]) [facility] ([facility]) [address] [place] [address] 23710 MCH (RBC) [Entitic mass] 29.1 pg Normal 26.0-34.0 [facility] Comment on above: Performed By: #### 2 432-8 #### ERICA Tam ([id number]) [facility] ([facility]) [address] [place] [address] 50644 MCHC (RBC) [Mass/Vol] 31.5 g/dL Low 32.0-36.0 [facility] Comment on above: Performed By: #### 2 4323-8 #### ERICA Tam ([id number]) [facility] ([facility]) [address] [place] [address] 25422 MCV (RBC) [Entitic vol] 92 fL Normal 80-100 [facility] Comment on above: Performed By: #### 2 4323-8 #### ERICA Tam ([id number]) [facility] ([facility]) [address] [place] [address] 56869 Nucleated RBC/100 WBC (Bld) [Ratio] 0.0 /100 WBCs Normal 0.0-0.0 [facility] Comment on above: Performed By: #### 2 4323-8 #### ERICA Tam ([id number]) [facility] ([facility]) [address] [place] [address] Platelets (Bld) [#/Vol] 316 x10*3/uL Normal 150-450 [facility] Comment on above: Performed By: #### 2 4323-8 #### ERICA Tam ([id number]) [facility] ([facility]) [address] [place] [address] RBC (Bld) [#/Vol] 3.82 x10*6/uL Low 4.50-5.90 [facility] Comment on above: Performed By: #### 2 4323-8 #### ERICA Tam ([id number]) [facility] ([facility]) [address] [place] [address] 39365 WBC (Bld) [#/Vol] 8.6 x10*3/uL Normal 4.4-11.3 [facility] Comment on above: Performed By: #### 2 4323-8 #### ERICA Tam ([id number]) [facility] ([facility]) [address] [place] [address] 31332 Glucose Test strip manual (B ld) [Mass/Vol]on 10-17-2023 Glucose [Mass/Vol] 217 mg/dL High 74 - 99 mg/dL [facility] Interpretation and review of laboratory results Abnormal [facility] Glucose [Mass/Vol] 217 mg/dL High 74-99 [facility] Comment on above: Performed By: #### L IPIN #### ERICA Tam ([id number]) [facility] ([facility]) [address] [place] [address] 89320 Glucose [Mass/Vol] 271 mg/dL High 74 - 99 mg/dL [facility] Interpretation and review of laboratory results Abnormal [facility] Glucose [Mass/Vol] 271 mg/dL High 74-99 [facility] Comment on above: Performed By: #### 2 4323-8 #### ERICA Tam ([id number]) [facility] ([facility]) [address] [place] [address] 09856 Glucose [Mass/Vol] 189 mg/dL High 74 - 99 mg/dL [facility] Interpretation and review of laboratory results Abnormal [facility] Glucose [Mass/Vol] 189 mg/dL High 74-99 [facility] Comment on above: Performed By: #### 2 4323-8 #### ERICA Tam ([id number]) [facility] ([facility]) [address] [place] [address] 39201 Glucose [Mass/Vol] 256 mg/dL High 74 - 99 mg/dL [facility] Interpretation and review of laboratory results Abnormal [facility] Glucose [Mass/Vol] 256 mg/dL High 74-99 [facility] Comment on above: Performed By: #### 2 4323-8 #### ERICA Tam ([id number]) [facility] ([facility]) [address] [place] [address] 94602 Glucose [Mass/Vol] 176 mg/dL High 74 - 99 mg/dL [facility] Interpretation and review of laboratory results Abnormal [facility] Glucose [Mass/Vol] 176 mg/dL High 74-99 [facility] Comment on above: Performed By: #### 1 4979-9 #### ERICA Tam ([id number]) [facility] ([facility]) [address] [place] [address] 46325 Heparin Assay, UFHon 024 Heparin unfractionated Chromogenic method Qn (PPP) 0.3 See Comment Below for Therapeutic Ranges IU/mL [facility] Heparin unfractionated Chromogenic method Qn (PPP) 0.5 See Comment Below for Therapeutic Ranges IU/mL [facility] Heparin unfractionated Chromogenic method Qn (PPP) 0.2 See Comment Below for Therapeutic Ranges IU/mL [facility] Heparin unfractionated Chromogenic method Qn (PPP) 0.3 See Comment Below for Therapeutic Ranges IU/mL [facility] Heparin unfractionated Chrom ogenic method Qn (PPP)on 10-17-2023 Interpretation and review of laboratory results Normal [facility] The therapeutic reference range for UFH may be either 0.3-0.6 IU/mL or 0.3-0.7 IU/mL based on the clinical setting for anticoagulant therapy and the associated nomogram used. For Heparin dosing guidelines based on clinical scenario and Heparin Assay results, please refer to local Pharmacy and the [facility] Guidelines for Anticoagulation Therapy available on the [facility] intranet at: [email or web address] [email or web address]_ Guidelines_for_Anticoagu .aspx [facility] Interpretation and review of laboratory results [facility] The therapeutic reference range for UFH may be either 0.3-0.6 IU/mL or 0.3-0.7 IU/mL based on the clinical setting for anticoagulant therapy and the associated nomogram used. For Heparin dosing guidelines based on clinical scenario and Heparin Assay results, please refer to local Pharmacy and the [facility] Guidelines for Anticoagulation Therapy available on the [facility] intranet at: [email or web address] es/[facility]_ Guidelines_for_Anticoagu .aspx [facility] Interpretation and review of laboratory results [facility] The therapeutic reference range for UFH may be either 0.3-0.6 IU/mL or 0.3-0.7 IU/mL based on the clinical setting for anticoagulant therapy and the associated nomogram used. For Heparin dosing guidelines based on clinical scenario and Heparin Assay results, please refer to local Pharmacy and the [facility] Guidelines for Anticoagulation Therapy available on the [facility] intranet at: [email or web address]/Pag es/[facility]_ Guidelines_for_Anticoagu .aspx [facility] Interpretation and review of laboratory results [facility] The therapeutic reference range for UFH may be either 0.3-0.6 IU/mL or 0.3-0.7 IU/mL based on the clinical setting for anticoagulant therapy and the associated nomogram used. For Heparin dosing guidelines based on clinical scenario and Heparin Assay results, please refer to local Pharmacy and the [facility] Guidelines for Anticoagulation Therapy available on the [facility] intranet at: [email or web address]/Pag es/[facility]_ Guidelines_for_Anticoagu .aspx [facility] Heparin.unfractionatedon Heparin unfractionated Chromogenic method Qn (PPP) 0.3 IU/mL Normal See Comment Below for Therapeutic Ranges [facility] Comment on above: Order Comment: Obtai n 4 hours after any Heparin dosage change. Nursing to release order.The therapeutic reference range for UFH may be either 0.3-0.6 IU/mL or 0.3-0.7 IU/mL based on the clinical setting for anticoagulant therapy and the associated nomogram used. For Heparin dosing guidelines based on clinical scenario and Heparin Assay results, please refer to local Pharmacy and the [facility] Guidelines for Anticoagulation Therapy available on the [facility] intranet at: [email or web address]/[email or web address]_Guidelines_for_Anticoagu.aspx Performed By: #### 2 4323-8 #### ERICA Tam ([id number]) [facility] ([facility]) [address] [place] [address] Heparin unfractionated Chromogenic method Qn (PPP) 0.5 IU/mL Normal See Comment Below for Therapeutic Ranges [facility] Comment on above: Order Comment: Obtai n 4 hours after any Heparin dosage change. Nursing to release order.The therapeutic reference range for UFH may be either 0.3-0.6 IU/mL or 0.3-0.7 IU/mL based on the clinical setting for anticoagulant therapy and the associated nomogram used. For Heparin dosing guidelines based on clinical scenario and Heparin Assay results, please refer to local Pharmacy and the [facility] Guidelines for Anticoagulation Therapy available on the [facility] intranet at: [email or web address]/Pharmacy/Pages/[facility]_ [facility]_Guidelines_for_Anticoagu.aspx Performed By: #### 2 4323-8 #### ERICA Tam ([id number]) [facility] ([facility]) [address] [place] [address] Heparin unfractionated Chromogenic method Qn (PPP) 0.2 IU/mL Normal See Comment Below for Therapeutic Ranges [facility] Comment on above: Order Comment: Prior to initiating heparin if not obtained in prior 48 hours. Nursing to release order. The APTT is no longer used for monitoring Unfractionated Heparin Therapy. For monitoring Heparin Therapy, use the Heparin Assay. Performed By: #### 1 4979-9 #### ERICA Tam ([id number]) [facility] ([facility]) [address] [place] [address] MRSA isol Org specific cx Ql (Nose)Ordered By: Lilliam Gandhi on 10-17-2023 Interpretation and review of laboratory results Normal [facility] Staphylococcus sp identified Org specific cx Nom (Unsp spec) No Staphylococcus aureus isolated [facility] Magnesiumon 10-17-2023 Magnesium [Mass/Vol] 1.94 mg/dL 1.60 - 2.40 mg/dL [facility] Magnesium [Mass/Vol] 1.94 mg/dL Normal 1.60-2.40 [facility] Comment on above: Performed By: #### L IPIN #### ERICA Tam ([id number]) [facility] ([facility]) [address] [place] [address] Magnesium [Mass/Vol]on 10-16 Interpretation and review of laboratory results Normal [facility] No Panel Informationon 10-16 [facility] Radiology Study observation (narrative) [facility] Work Phone: Renal function 2000 panelon 10-17-2023 Albumin BCP dye [Mass/Vol] 3.1 g/dL Low 3.4 - 5.0 g/dL [facility] Anion gap [Moles/Vol] 9 mmol/L Low 10 - 2 0 mmol/L [facility] Calcium [Mass/Vol] 8.2 mg/dL Low 8.6 - 10. 6 mg/dL [facility] Chloride [Moles/Vol] 104 mmol/L 98 - 10 7 mmol/L [facility] CO2 [Moles/Vol] 28 mmol/L 21 - 32 mmol/L [facility] Creatinine [Mass/Vol] 1.35 mg/dL High 0.50 - 1.30 mg/dL [facility] GFR/1.73 sq M.predicted among non-blacks MDRD (S/P/Bld) [Vol rate/Area] 57 mL/min/{1.73_m2} Low - PINF [facility] Comment on above: Calculations of mercedez mated GFR are performed using the 2020 CKD-EPI Study Refit equation without the race variable for the IDMS-Traceable creatinine methods. https://jasn.asnjournals.org/content/early/ASN.2020 211471 Glucose [Mass/Vol] 274 mg/dL High 74 - 99 mg/dL [facility] Interpretation and review of laboratory results Abnormal [facility] Phosphate [Mass/Vol] 2.5 mg/dL 2.5 - 4 .9 mg/dL [facility] Comment on above: The performance cecilia acteristics of phosphorus testing in heparinized plasma have been validated by the individual laboratory site where testing is performed. Testing on heparinized plasma is not approved by the FDA; however, such approval is not necessary. Potassium [Moles/Vol] 4.3 mmol/L 3.5 - 5.3 mmol/L [facility] Sodium [Moles/Vol] 137 mmol/L 136 - 145 mmol/L [facility] Urea nitrogen [Mass/Vol] 27 mg/dL High 6 - 23 mg/dL [facility] Albumin BCP dye [Mass/Vol] 3.1 g/dL Low 3.4-5.0 [facility] Comment on above: Performed By: #### L IPIN #### ERICA Tam ([id number]) [facility] ([facility]) [address] [place] [address] 72937 Anion gap [Moles/Vol] 9 mmol/L Low 10-20 [facility] Comment on above: Performed By: #### L IPIN #### ERICA Tam ([id number]) [facility] ([facility]) [address] [place] [address] 76244 Calcium [Mass/Vol] 8.2 mg/dL Low 8.6-10.6 [facility] Comment on above: Performed By: #### L IPIN #### ERICA Tam ([id number]) [facility] ([facility]) [address] [place] [address] 52741 Chloride [Moles/Vol] 104 mmol/L Normal 98-107 [facility] Comment on above: Performed By: #### L IPIN #### ERICA Tam ([id number]) [facility] ([facility]) [address] [place] [address] 82637 CO2 [Moles/Vol] 28 mmol/L Normal 21-32 [facility] Comment on above: Performed By: #### L IPIN #### ERICA Tam ([id number]) [facility] ([facility]) [address] [place] [address] 43995 Creatinine [Mass/Vol] 1.35 mg/dL High 0.50-1.30 [facility] Comment on above: Performed By: #### L IPIN #### ERICA Tam ([id number]) [facility] ([facility]) [address] [place] [address] 64265 Glomerular filtration rate/1.73 sq M.predicted 57 mL/min/1.73m*2 Low >60 [facility] Comment on above: Result Comment: Calc ulations of estimated GFR are performed using the 2020 CKD-EPI Study Refit equation without the race variable for the IDMS-Traceable creatinine methods. https://jasn.asnjournals.org/content/early//ASN.2020 244301 Performed By: #### L IPIN #### ERICA Tam ([id number]) [facility] ([facility]) [address] [place] [address] 58434 Glucose [Mass/Vol] 274 mg/dL High 74-99 [facility] Comment on above: Performed By: #### L IPIN #### ERICA Tam ([id number]) [facility] ([facility]) [address] [place] [address] 04381 Phosphate [Mass/Vol] 2.5 mg/dL Normal 2.5-4.9 [facility] Comment on above: Result Comment: The performance characteristics of phosphorus testing in heparinized plasma have been validated by the individual laboratory site where testing is performed. Testing on heparinized plasma is not approved by the FDA; however, such approval is not necessary. Performed By: #### L IPIN #### ERICA Tam ([id number]) [facility] ([facility]) [address] [place] [address] 45779 Potassium [Moles/Vol] 4.3 mmol/L Normal 3.5-5.3 [facility] Comment on above: Performed By: #### L IPIN #### ERICA Tam ([id number]) [facility] ([facility]) [address] [place] [address] 39628 Sodium [Moles/Vol] 137 mmol/L Normal 136-145 [facility] Comment on above: Performed By: #### L IPIN #### ERICA Tam ([id number]) [facility] ([facility]) [address] [place] [address] 07558 Urea nitrogen [Mass/Vol] 27 mg/dL High 6-23 [facility] Comment on above: Performed By: #### L IPIN #### ERICA Tam ([id number]) [facility] ([facility]) [address] [place] [address] 92274 US.doppler Carotid arteries - bilateralon 10-17-[address] [address] and Vascular Lab Report [facility] US CAROTID ARTERY DUPLEX BILATERAL Patient Name: ITALIA Alfaro Physician: [id number] Marshal Nolan MD Study Date: 10/17/2023 Ordering [id number] RU Mina Physician: CUATE MRN/PID: [id number] Technologist: Gallito Marie S Technologist 2: Date of /Age: 5 1955 years Gender: M Admission Status: Inpatient Location [facility] Performed: Diagnosis/ICD: Encounter for preprocedural cardiovascular examination-Z01.810 Indication: Pre-Op CABG CPT Codes: 70652 Cerebrovascular Carotid Duplex scan complete Patient History CAD. CRITICAL RESULT Critical Result: Total occlusion of R ICA Notification called to Ru Elena MD on 10/17/2023 at 1:07:56 PM by Gallito Marie Jitendra. CONCLUSIONS: Right Carotid: Findings are consistent with [...] cm/s Right Left ICA/CCA Ratio 0.0 1.3 [id number] Marshal Nolan MD Final Marshal Alvarez MD - 10/17/2023 [place] [address] and Vascular Lab Report [facility] US CAROTID ARTERY DUPLEX BILATERAL Patient Name: ITALIA ALLEN Reading Physician: [id number] Marshal Nolan MD Study Date: 10/17/2023 Ordering [id number] RU Mina Physician: CUATE MRN/PID: [id number] Technologist: Gallito HARTMANN Technologist 2: Date of /Age: 5 1955 years Gender: M Admission Status: Inpatient Location [facility] Performed: Diagnosis/ICD: Encounter for preprocedural cardiovascular examination-Z01.810 Indication: Pre-Op CABG CPT Codes: 59257 Cerebrovascular Carotid Duplex scan complete Patient History [...] cm/s Right Left ICA/CCA Ratio 0.0 1.3 [id number] Nolan MD Final [facility] Work Phone: [facility] Work Phone: [facility] US ANKLE BRACHIAL INDEX (LUCIO) WITHOUT EXERCISEon 10-17-2023 [facility] US ANKLE BRACHIAL INDEX (LUCIO) WITHOUT EXERCISE [place] [address] and Vascular Lab Report [facility] US ANKLE BRACHIAL INDEX (LUCIO) WITHOUT EXERCISE Patient Name: ITALIA Alfaro Physician: [id number] Nolan MD Study Date: 10/17/2023 Ordering [id number] RU Mina Physician: CUATE MRN/PID: [id number] Technologist: Sandy Smith T Technologist 2: Date of /Age: 5 1955 years Gender: M Admission Status: Inpatient Location [facility] Performed: Diagnosis/ICD: Peripheral vascular disease, unspecified-I73.9 CPT Codes: 31983 Peripheral artery LUCIO Only CONCLUSIONS: Right Lower [...] Left Brachial Pressure 155 mmHg 149 mmHg [id number] Nolan MD Final [facility] US CAROTID ARTERY DUPLE X BILATERALon 10-17-2023 [facility] US CAROTID ARTERY DUPLEX BILATERAL [place] [address] and Vascular Lab Report [facility] US CAROTID ARTERY DUPLEX BILATERAL Patient Name: ITALIA ALLEN Angelina Physician: [id number] Nolan MD Study Date: 10/17/2023 Ordering [id number] RU Mina Physician: CUATE MRN/PID: [id number] Technologist: Gallito HARTMANN Technologist 2: Date of /Age: 5 1955 years Gender: M Admission Status: Inpatient Location [facility] Performed: Diagnosis/ICD: Encounter for preprocedural cardiovascular examination-Z01.810 Indication: Pre-Op CABG CPT Codes: 44798 Cerebrovascular Carotid Duplex scan complete Patient History [...] cm/s Right Left ICA/CCA Ratio 0.0 1.3 [id number] Nolan MD Final [facility] US LOWER EXTREMITY VEIN MAPPING BILATERALon 10-17-2023 [facility] US LOWER EXTREMITY VEIN MAPPING BILATERAL [place] [address] and Vascular Lab Report [facility] US LOWER EXTREMITY VEIN MAPPING BILATERAL Patient Name: ITALIA Alfaro Physician: [id number] Nolan MD Study Date: 10/17/2023 Ordering [id number] RU Mina Physician: CUATE MRN/PID: [id number] Technologist: Gallito Marie S Technologist 2: Date of /Age: 5 1955 years Gender: M Admission Status: Inpatient Location [facility] Performed: Diagnosis/ICD: Encounter for preprocedural cardiovascular examination-Z01.810 Indication: Pre-operative exam CPT Codes: 45172 Vein mapping complete Patient History CAD. CONCLUSIONS: [...] Dist Calf GSV Yes None 1.0 mm [id number] Nolan MD Final Normal [facility] US Ankle Brachial I ndex (LUCIO) Without Exerciseon 10-17-2023 Body surface area Derived from formula 2.37 m2 [facility] Work Phone: [phone] [place] [address] and Vascular Lab Report [facility] US ANKLE BRACHIAL INDEX (LUCIO) WITHOUT EXERCISE Patient Name: ITALIA Alfaro Physician: [id number] Nolan MD Study Date: 10/17/2023 Ordering [id number] RU Mina Physician: CUATE MRN/PID: [id number] Technologist: Sandy Smith T Technologist 2: Date of /Age: 5 1955 years Gender: M Admission Status: Inpatient Location [facility] Performed: Diagnosis/ICD: Peripheral vascular disease, unspecified-I73.9 CPT Codes: 08899 Peripheral artery LUCIO Only CONCLUSIONS: Right Lower [...] Brachial Pressure 155 mmHg 149 mmHg Myriam oNlan MD Final Marshal Alvarez MD - 10/17/2023 [place] [address] and Vascular Lab Report [facility] US ANKLE BRACHIAL INDEX (LUCIO) WITHOUT EXERCISE Patient Name: ITALIA Alfaro Physician: Myriam Nolan MD Study Date: 10/17/2023 Ordering [id number] RU Mina Physician: CUATE MRN/PID: [id number] Technologist: Sandy Smith [facility] Technologist 2: Date of /Age: 5 1955 years Gender: M Admission Status: Inpatient Location [facility] Performed: Diagnosis/ICD: Peripheral vascular disease, unspecified-I73.9 CPT Codes: 33831 Peripheral artery LUCIO Only CONCLUSIONS: Right Lower [...] Left Brachial Pressure 155 mmHg 149 mmHg [id number] Nolan MD Final [facility] Work Phone: [facility] Work Phone: Vascular US Lower Extremity Vein Mapping Bilateralon 10-17-2023 [place] [address] and Vascular Lab Report [facility] US LOWER EXTREMITY VEIN MAPPING BILATERAL Patient Name: ITALIA Alfaro Physician: [id number] Marshal Nolan MD Study Date: 10/17/2023 Ordering [id number] RU Mina Physician: CUATE MRN/PID: [id number] Technologist: Gallito Marie Jitendra Technologist 2: Date of /Age: 5 1955 years Gender: M Admission Status: Inpatient Location [facility] Performed: Diagnosis/ICD: Encounter for preprocedural cardiovascular examination-Z01.810 Indication: Pre-operative exam CPT Codes: 95362 Vein mapping complete Patient History CAD. CONCLUSIONS: [...] Dist Calf GSV Yes None 1.0 mm [id number] Nolan MD Final Marshal Alvarez MD - 10/17/2023 [place] [address] and Vascular Lab Report [facility] US LOWER EXTREMITY VEIN MAPPING BILATERAL Patient Name: ITALIA Alfaro Physician: [id number] Nolan MD Study Date: 10/17/2023 Ordering [id number] RU Mina Physician: CUATE MRN/PID: [id number] Technologist: Gallito Marie [facility] Technologist 2: Date of /Age: 5 1955 years Gender: M Admission Status: Inpatient Location [facility] Performed: Diagnosis/ICD: Encounter for preprocedural cardiovascular examination-Z01.810 Indication: Pre-operative exam CPT Codes: 38550 Vein mapping complete Patient History CAD. CONCLUSIONS: [...] Dist Calf GSV Yes None 1.0 mm [id number] Marshal Nolan MD Final [facility] Work Phone: Vascular US Lower Extremity Vein Mapping BilateralOrdered By: Marshal Nolan on 10-17-2023 [facility] Work Phone: CBC panel Auto (Bld)on 10-15 Erythrocyte distribution width (RBC) [Ratio] 14.4 % 11.5 - 14.5 % [facility] Hematocrit (Bld) [Volume fraction] 33.4 % Low 41.0 - 52.0 % [facility] Hemoglobin (Bld) [Mass/Vol] 10.5 g/dL Low 13.5 - 17.5 g/dL [facility] Interpretation and review of laboratory results Abnormal [facility] MCH (RBC) [Entitic mass] 28.5 pg 26.0 - 34.0 pg [facility] MCHC (RBC) [Mass/Vol] 31.4 g/dL Low 32.0 - 36.0 g/dL [facility] MCV (RBC) [Entitic vol] 91 fL 80 - 100 fL [facility] Nucleated RBC/100 WBC (Bld) [Ratio] 0.0 % [facility] Platelets (Bld) [#/Vol] 283 10*3/uL [facility] RBC (Bld) [#/Vol] 3.69 10*6/uL [facility] WBC (Bld) [#/Vol] 8.2 10*3/uL [facility] Erythrocyte distribution width (RBC) [Ratio] 14.4 % Normal 11.5-14.5 [facility] Comment on above: Performed By: #### 1 7897-9 #### ERICA Tam ([id number]) [facility] ([facility]) [address] [place] [address] 29229 Hematocrit (Bld) [Volume fraction] 33.4 % Low 41.0-52.0 [facility] Comment on above: Performed By: #### 1 4979-9 #### ERICA Tam ([id number]) [facility] ([facility]) [address] [place] [address] 08703 Hemoglobin (Bld) [Mass/Vol] 10.5 g/dL Low 13.5-17.5 [facility] Comment on above: Performed By: #### 1 4979-9 #### ERICA Tam ([id number]) [facility] ([facility]) [address] [place] [address] 20960 MCH (RBC) [Entitic mass] 28.5 pg Normal 26.0-34.0 [facility] Comment on above: Performed By: #### 1 4979-9 #### ERICA Tam ([id number]) [facility] ([facility]) [address] [place] [address] 16488 MCHC (RBC) [Mass/Vol] 31.4 g/dL Low 32.0-36.0 [facility] Comment on above: Performed By: #### 1 4979-9 #### ERICA Tam ([id number]) [facility] ([facility]) [address] [place] [address] 96972 MCV (RBC) [Entitic vol] 91 fL Normal 80-100 U [facility] Comment on above: Performed By: #### 1 4979-9 #### ERICA Tam ([id number]) [facility] ([facility]) [address] [place] [address] 67471 Nucleated RBC/100 WBC (Bld) [Ratio] 0.0 /100 WBCs Normal 0.0-0.0 [facility] Comment on above: Performed By: #### 1 4979-9 #### ERICA Tam ([id number]) [facility] ([facility]) [address] [place] [address] Platelets (Bld) [#/Vol] 283 x10*3/uL Normal 150-450 [facility] Comment on above: Performed By: #### 1 4979-9 #### ERICA Tam ([id number]) [facility] ([facility]) [address] [place] [address] RBC (Bld) [#/Vol] 3.69 x10*6/uL Low 4.50-5.90 [facility] Comment on above: Performed By: #### 1 4979-9 #### ERICA Tam ([id number]) [facility] ([facility]) [address] [place] [address] WBC (Bld) [#/Vol] 8.2 x10*3/uL Normal 4.4-11.3 [facility] Comment on above: Performed By: #### 1 4979-9 #### ERICA Tam ([id number]) [facility] ([facility]) [address] [place] [address] Erythrocyte distribution width (RBC) [Ratio] 14.6 % High 11.5 - 14.5 % [facility] Hematocrit (Bld) [Volume fraction] 35.2 % Low 41.0 - 52.0 % [facility] Hemoglobin (Bld) [Mass/Vol] 11.4 g/dL Low 13.5 - 17.5 g/dL [facility] Interpretation and review of laboratory results Abnormal [facility] MCH (RBC) [Entitic mass] 29.3 pg 26.0 - 34.0 pg [facility] MCHC (RBC) [Mass/Vol] 32.4 g/dL 32.0 - 36.0 g/dL [facility] MCV (RBC) [Entitic vol] 91 fL 80 - 100 fL [facility] Nucleated RBC/100 WBC (Bld) [Ratio] 0.0 % [facility] Platelets (Bld) [#/Vol] 285 10*3/uL [facility] RBC (Bld) [#/Vol] 3.89 10*6/uL [facility] WBC (Bld) [#/Vol] 9.3 10*3/uL [facility] Erythrocyte distribution width (RBC) [Ratio] 14.6 % High 11.5-14.5 [facility] Comment on above: Performed By: #### 5 8410-2 #### ERICA Tam ([id number]) [facility] ([facility]) [address] [place] [address] 61017 Hematocrit (Bld) [Volume fraction] 35.2 % Low 41.0-52.0 [facility] Comment on above: Performed By: #### 5 8410-2 #### ERICA Tam ([id number]) [facility] ([facility]) [address] [place] [address] 43492 Hemoglobin (Bld) [Mass/Vol] 11.4 g/dL Low 13.5-17.5 [facility] Comment on above: Performed By: #### 5 8410-2 #### ERICA Tam ([id number]) [facility] ([facility]) [address] [place] [address] 94975 MCH (RBC) [Entitic mass] 29.3 pg Normal 26.0-34.0 [facility] Comment on above: Performed By: #### 5 8410-2 #### ERICA Tam ([id number]) [facility] ([facility]) [address] [place] [address] 44094 MCHC (RBC) [Mass/Vol] 32.4 g/dL Normal 32.0-36.0 [facility] Comment on above: Performed By: #### 5 8410-2 #### ERICA Tam ([id number]) [facility] ([facility]) [address] [place] [address] 13979 MCV (RBC) [Entitic vol] 91 fL Normal 80-100 U [facility] Comment on above: Performed By: #### 5 8410-2 #### ERICA Tam ([id number]) [facility] ([facility]) [address] [place] [address] Nucleated RBC/100 WBC (Bld) [Ratio] 0.0 /100 WBCs Normal 0.0-0.0 [facility] Comment on above: Performed By: #### 5 8410-2 #### ERICA Tam ([id number]) [facility] ([facility]) [address] [place] [address] 26348 Platelets (Bld) [#/Vol] 285 x10*3/uL Normal 150-450 [facility] Comment on above: Performed By: #### 5 8410-2 #### ERICA Tam ([id number]) [facility] ([facility]) [address] [place] [address] 56706 RBC (Bld) [#/Vol] 3.89 x10*6/uL Low 4.50-5.90 [facility] Comment on above: Performed By: #### 5 8410-2 #### ERICA Tam ([id number]) [facility] ([facility]) [address] [place] [address] 63905 WBC (Bld) [#/Vol] 9.3 x10*3/uL Normal 4.4-11.3 [facility] Comment on above: Performed By: #### 5 8410-2 #### ERICA Tam ([id number]) [facility] ([facility]) [address] [place] [address] 93969 Coagulation surface inducedo n 10-16-2023 aPTT Coag (PPP) [Time] 30 s Normal 27-38 [facility] Comment on above: Order Comment: Prior to initiating heparin if not obtained in prior 48 hours. Nursing to release order. The APTT is no longer used for monitoring Unfractionated Heparin Therapy. For monitoring Heparin Therapy, use the Heparin Assay. Performed By: #### 1 4979-9 #### ERICA Tam ([id number]) [facility] ([facility]) [address] [place] [address] 26057 Coagulation tissue factor in ducedon 10-16-2023 PT Coag (PPP) [Time] 12.5 s Normal 9.8-12.8 [facility] Comment on above: Order Comment: If val monroe has not had PT + INR in the last 24 hours. Nursing to release order. Performed By: #### 5 902-2 #### ERICA Tam ([id number]) [facility] ([facility]) [address] [place] [address] Cobalamin (Vitamin B12) [Mas s/Vol]on 10-16-2023 Interpretation and review of laboratory results Abnormal [facility] Cobalaminson 10-16-2023 Cobalamin (Vitamin B12) [Mass/Vol] 201 pg/mL Low 211-911 [facility] Comment on above: Performed By: #### 5 902-2 #### ERICA Tam ([id number]) [facility] ([facility]) [address] [place], [place] [address] Comprehensive metabolic 2000 panelon 10-16-2023 Albumin BCP dye [Mass/Vol] 3.3 g/dL Low 3.4 - 5.0 g/dL [facility] ALP [Catalytic activity/Vol] 58 U/L 33 - 136 U/L [facility] ALT With P-5'-P [Catalytic activity/Vol] 15 U/L 10 - 52 U/L [facility] Comment on above: Patients treated wit h Sulfasalazine may generate falsely decreased results for ALT. Anion gap [Moles/Vol] 13 mmol/L 10 - 2 0 mmol/L [facility] AST With P-5'-P [Catalytic activity/Vol] 14 U/L 9 - 39 U/L [facility] Comment on above: MILD HEMOLYSIS DETEC ZAID. The result may be falsely elevated due to hemolysis or other interferents. Clinical correlation is recommended. Repeat testing may be considered. Bilirubin [Mass/Vol] 0.4 mg/dL 0.0 - 1 .2 mg/dL [facility] Calcium [Mass/Vol] 8.3 mg/dL Low 8.6 - 10. 6 mg/dL [facility] Chloride [Moles/Vol] 102 mmol/L 98 - 10 7 mmol/L [facility] CO2 [Moles/Vol] 26 mmol/L 21 - 32 mmol/L [facility] Creatinine [Mass/Vol] 1.64 mg/dL High 0.50 - 1.30 mg/dL [facility] GFR/1.73 sq M.predicted among non-blacks MDRD (S/P/Bld) [Vol rate/Area] 45 mL/min/{1.73_m2} Low - PINF [facility] Comment on above: Calculations of [place] mated GFR are performed using the 2020 CKD-EPI Study Refit equation without the race variable for the IDMS-Traceable creatinine methods. https://jasn.asnjournals.org/content/early//ASN.2020 485651 Glucose [Mass/Vol] 173 mg/dL High 74 - 99 mg/dL [facility] Interpretation and review of laboratory results Abnormal [facility] Potassium [Moles/Vol] 4.3 mmol/L 3.5 - 5.3 mmol/L [facility] Comment on above: MILD HEMOLYSIS DETEC ZAID. The result may be falsely elevated due to hemolysis or other interferents. Clinical correlation is recommended. Repeat testing may be considered. Protein [Mass/Vol] 5.6 g/dL Low 6.4 - 8.2 g/dL [facility] Sodium [Moles/Vol] 137 mmol/L 136 - 145 mmol/L [facility] Urea nitrogen [Mass/Vol] 33 mg/dL High 6 - 23 mg/dL [facility] Albumin BCP dye [Mass/Vol] 3.3 g/dL Low 3.4-5.0 [facility] Comment on above: Performed By: #### 2 4323-8 #### ERICA Tam ([id number]) [facility] ([facility]) [address] [place] [address] 70850 ALP [Catalytic activity/Vol] 58 U/L Normal 33-136 [facility] Comment on above: Performed By: #### 2 4323-8 #### ERICA Tam ([id number]) [facility] ([facility]) [address] [place] [address] 98789 ALT With P-5'-P [Catalytic activity/Vol] 15 U/L Normal 10-52 [facility] Comment on above: Result Comment: Criselda ents treated with Sulfasalazine may generate falsely decreased results for ALT. Performed By: #### 2 4323-8 #### ERICA MCDONALD L ([id number]) [facility] ([facility]) [address] [place] [address] Anion gap [Moles/Vol] 13 mmol/L Normal 10-20 [facility] Comment on above: Performed By: #### 2 4323-8 #### ERICA HIGGINSER L ([id number]) [facility] ([facility]) [address] [place] [address] AST With P-5'-P [Catalytic activity/Vol] 14 U/L Normal 9-39 [facility] Comment on above: Result Comment: MILD HEMOLYSIS DETECTED. The result may be falsely elevated due to hemolysis or other interferents. Clinical correlation is recommended. Repeat testing may be considered. Performed By: #### 2 4323-8 #### ERICA MCDONALD L ([id number]) [facility] ([facility]) [address] [place] [address] Bilirubin [Mass/Vol] 0.4 mg/dL Normal 0.0-1.2 [facility] Comment on above: Performed By: #### 2 4323-8 #### ERICA MCDONALD L ([id number]) [facility] ([facility]) [address] [place] [address] Calcium [Mass/Vol] 8.3 mg/dL Low 8.6-10.6 [facility] Comment on above: Performed By: #### 2 4323-8 #### ERICA RESTREPOMOTZER L ([id number]) [facility] ([facility]) [address] [place] [address] Chloride [Moles/Vol] 102 mmol/L Normal 98-107 [facility] Comment on above: Performed By: #### 2 4323-8 #### ERICA ARREOLATZER L ([id number]) [facility] ([facility]) [address] [place] [address] CO2 [Moles/Vol] 26 mmol/L Normal 21-32 [facility] Comment on above: Performed By: #### 2 4323-8 #### ERICA MCDONALD L ([id number]) [facility] ([facility]) [address] [place] [address] Creatinine [Mass/Vol] 1.64 mg/dL High 0.50-1.30 [facility] Comment on above: Performed By: #### 2 4323-8 #### ERICA MCDONALD L ([id number]) [facility] ([facility]) [address] [place] [address] Glomerular filtration rate/1.73 sq M.predicted 45 mL/min/1.73m*2 Low >60 [facility] Comment on above: Result Comment: Calc ulations of estimated GFR are performed using the 2020 CKD-EPI Study Refit equation without the race variable for the IDMS-Traceable creatinine methods. https://jasn.asnjournals.org/content/early//ASN.2020 457465 Performed By: #### 2 4323-8 #### ERICA Tam ([id number]) [facility] ([facility]) [address] [place] [address] Glucose [Mass/Vol] 173 mg/dL High 74-99 [facility] Comment on above: Performed By: #### 2 4323-8 #### ERICA MCDONALD L ([id number]) [facility] ([facility]) [address] [place] [address] Potassium [Moles/Vol] 4.3 mmol/L Normal 3.5-5.3 [facility] Comment on above: Result Comment: MILD HEMOLYSIS DETECTED. The result may be falsely elevated due to hemolysis or other interferents. Clinical correlation is recommended. Repeat testing may be considered. Performed By: #### 2 4323-8 #### ERICA Tam ([id number]) [facility] ([facility]) [address] [place] [address] Protein [Mass/Vol] 5.6 g/dL Low 6.4-8.2 [facility] Comment on above: Performed By: #### 2 4323-8 #### ERICA Tam ([id number]) [facility] ([facility]) [address] [place] [address] Sodium [Moles/Vol] 137 mmol/L Normal 136-145 [facility] Comment on above: Performed By: #### 2 4323-8 #### ERICA Tam ([id number]) [facility] ([facility]) [address] [place] [address]99 Urea nitrogen [Mass/Vol] 33 mg/dL High 6-23 [facility] Comment on above: Performed By: #### 2 4323-8 #### ERICA Tam ([id number]) [facility] ([facility]) [address] [place] [address] 59828 ECG 12 leadOrdered By: Bertha Kennedy on 10-16-2023 Atrial Rate 85 BPM [facility] Work Phone: [phone] P [place] 40 degrees [facility] Work Phone: [phone] P Offset 185 ms [facility] Work Phone: [phone] P Onset 124 ms [facility] Work Phone: [phone] [place] Interval 196 ms [facility] Work Phone: [phone] Q Onset 222 ms [facility] Work Phone: [phone] QRS Count 14 beats [facility] Work Phone: [phone] QRS Duration 100 ms [facility] Work Phone: [phone] QT Interval 392 ms [facility] Work Phone: [phone] QTC Calculation(Bazett) 466 ms U [facility] Work Phone: [phone] QTC Fredericia 440 ms [facility] Work Phone: R [place] 54 degrees [facility] Work Phone: T [place] 51 degrees [facility] Work Phone: T Offset 418 ms [facility] Work Phone: Ventricular Rate 85 BPM [facility] Work Phone: [facility] Work Phone: ECG 12 leadon 10-16-2023 Normal sinus rhythm Prolonged QT Abnormal ECG No previous ECGs available Confirmed by Mark Kennedy ([id number]) on 10/16/2023 5:14:12 PM MUSE Mark Kennedy MD - 10/16/2023 Normal sinus rhythm Prolonged QT Abnormal ECG No previous ECGs available Confirmed by Mark Kennedy ([id number]) on 10/16/2023 5:14:12 PM [facility] Work Phone: ECG 12-LEADon 10-16-2023 ECG 12-LEAD Ventricular Rate 85 Atrial Rate 85 P-R Interval 196 QRS Duration 100 Q-T Interval 392 QTC Calculation(Bazett) 466 P [place] 40 R [place] 54 T [place] 51 QRS Count 14 Q Onset 222 P Onset 124 P Offset 185 T Offset 418 QTC Fredericia 440 Diagnosis Normal sinus rhythm Prolonged QT Abnormal ECG No previous ECGs available Confirmed by Mark Kennedy ([id number]) on 10/16/2023 5:14:12 PM Normal [facility] Extra Urine Fitch Tubeon 09-20 Extra Tube Hold for add-ons. [facility] Comment on above: Auto resulted. [facility] Ferritinon 10-16-2023 Ferritin [Mass/Vol] 184 ng/mL 20 - 300 ng/mL [facility] Ferritin [Mass/Vol] 184 ng/mL Normal 20-300 [facility] Comment on above: Performed By: #### 5 902-2 #### ERICA Tam ([id number]) [facility] ([facility]) [address] [place] [address] Ferritin [Mass/Vol]on 2023 Interpretation and review of laboratory results Normal [facility] Folateon 10-16-2023 Folate [Mass/Vol] 10.0 ng/mL 5.0 - PINF ng/mL [facility] Folate [Mass/Vol] 10.0 ng/mL Normal >5.0 [facility] Comment on above: Order Comment: If val monroe has not had PT + INR in the last 24 hours. Nursing to release order. Performed By: #### 5 902-2 #### ERICA Tam ([id number]) [facility] ([facility]) [address] [place] [address] Folate [Mass/Vol]on 10-16-19 24 Low <3.4 Borderline 3.4-5.0 Normal >5.0 Patients receiving more than 5 mg/day of biotin may have interference in test results. A sample should be taken no sooner than eight hours after previous dose. Contact the testing laboratory for additional information. [facility] Free T4 [Mass/Vol]on 024 Thyroxine Free testi ng is performed using different testing methodology at [facility] than at other [facility]. Direct result comparisons should only be made within the same method. [facility] Gas and Carbon monoxide pane l (BldA)on 10-16-2023 Base excess Calc (Bld) [Moles/Vol] -0.5000 mmol/L -2.0 - 3.0 mmol/L [facility] Carboxyhemoglobin (BldA) [Mass fraction] 3.1 % [facility] Comment on above: Ref Values Non-Smokers 0.5-1.5% Smokers 0.5-10.0% CO2 (Bld) [Partial pressure] 39 mm[Hg] [facility] Deoxyhemoglobin (BldA) [Mass fraction] 4.8 % 0.0 - 5.0 % [facility] HCO3 (Bld) [Moles/Vol] 24.2 mmol/L 22.0 - 26.0 mmol/L [facility] Hemoglobin (Bld) [Mass/Vol] 11.3 g/dL Low 13.5 - 17.5 g/dL [facility] Interpretation and review of laboratory results Abnormal [facility] Methemoglobin (BldA) [Mass fraction] 0.0 % 0.0 - 1.5 % [facility] Oxygen (Bld) [Partial pressure] 67 mm[Hg] Low [facility] Oxyhemoglobin (BldA) [Mass fraction] 92.2 % Low 94.0 - 98.0 % [facility] pH (Bld) 7.40 [pH] 7.38 - 7.42 pH [facility] Base excess Calc (Bld) [Moles/Vol] -0.5000 mmol/L Normal -2.0-3.0 [facility] Comment on above: Performed By: #### 1 4979-9 #### ERICA Tam ([id number]) [facility] ([facility]) [address] [place] [address] 07661 Carboxyhemoglobin (BldA) [Mass fraction] 3.1 % Normal [facility] Comment on above: Result Comment: Ref Values Non-Smokers 0.5-1.5% Smokers 0.5-10.0% Performed By: #### 1 4979-9 #### ERICA Tam ([id number]) [facility] ([facility]) [address] [place] [address] 05113 CO2 (Bld) [Partial pressure] 39 mm Hg Normal 38-42 [facility] Comment on above: Performed By: #### 1 4979-9 #### ERICA Tam ([id number]) [facility] ([facility]) [address] [place] [address] 86193 Deoxyhemoglobin (BldA) [Mass fraction] 4.8 % Normal 0.0-5.0 [facility] Comment on above: Performed By: #### 1 4979-9 #### ERICA Tam (05205) [facility] ([facility]) [address] [place] [address] 18220 HCO3 (Bld) [Moles/Vol] 24.2 mmol/L Normal 22.0-26.0 [facility] Comment on above: Performed By: #### 1 4979-9 #### ERICA Tam ([id number]) [facility] ([facility]) [address] [place] [address] 12477 Hemoglobin (Bld) [Mass/Vol] 11.3 g/dL Low 13.5-17.5 [facility] Comment on above: Performed By: #### 1 4979-9 #### ERICA Tam ([id number]) [facility] ([facility]) [address] [place] [address] 47332 Methemoglobin (BldA) [Mass fraction] 0.0 % Normal 0.0-1.5 [facility] Comment on above: Performed By: #### 1 4979-9 #### ERICA Tam ([id number]) [facility] ([facility]) [address] [place] [address] 14830 Oxygen (Bld) [Partial pressure] 67 mm Hg Low 85-95 [facility] Comment on above: Performed By: #### 1 4979-9 #### ERICA Tam ([id number]) [facility] ([facility]) [address] [place] [address] 56151 Oxyhemoglobin (BldA) [Mass fraction] 92.2 % Low 94.0-98.0 [facility] Comment on above: Performed By: #### 1 4979-9 #### ERICA Tam ([id number]) [facility] ([facility]) [address] [place] [address] 63102 pH (Bld) 7.40 [pH] Normal 7.38-7.42 [facility] Comment on above: Performed By: #### 1 4979-9 #### ERICA Tam ([id number]) [facility] ([facility]) [address] [place] [address] 13245 Glucose Test strip manual (B ld) [Mass/Vol]on 10-16-2023 Glucose [Mass/Vol] 151 mg/dL High 74 - 99 mg/dL [facility] Interpretation and review of laboratory results Abnormal [facility] Glucose [Mass/Vol] 151 mg/dL High 74-99 [facility] Comment on above: Performed By: #### 1 4979-9 #### ERICA Tam ([id number]) [facility] ([facility]) [address] [place] [address] 00419 Glucose [Mass/Vol] 261 mg/dL High 74 - 99 mg/dL [facility] Interpretation and review of laboratory results Abnormal [facility] Glucose [Mass/Vol] 261 mg/dL High 74-99 [facility] Comment on above: Performed By: #### 1 4979-9 #### ERICA Tam ([id number]) [facility] ([facility]) [address] [place] [address] 87063 Glucose [Mass/Vol] 170 mg/dL High 74 - 99 mg/dL [facility] Interpretation and review of laboratory results Abnormal [facility] Glucose [Mass/Vol] 170 mg/dL High 74-99 [facility] Comment on above: Performed By: #### 5 902-2 #### ERICA Tam ([id number]) [facility] [facility] ([facility]) [address] [place] [address]89 HbA1c (Bld) [Mass fraction]o n 10-16-2023 Average glucose Estimated from glycated hemoglobin (Bld) [Mass/Vol] 148 mg/dL Not Established [facility] Interpretation and review of laboratory results Abnormal [facility] Diagnosis of Diabetes-Adults Non-Diabetic: < or = 5.6% Increased risk for developing diabetes: 5.7-6.4% Diagnostic of diabetes: > or = 6.5% [facility] Average glucose Estimated from glycated hemoglobin (Bld) [Mass/Vol] 148 mg/dL Normal Not Established [facility] Comment on above: Order Comment: If val monroe has not had PT + INR in the last 24 hours. Nursing to release order. Performed By: #### 5 902-2 #### ERICA Tam ([id number]) [facility] ([facility]) [address] [place] [address] 93331 Hemoglobin A1con 10-16-2023 HbA1c (Bld) [Mass fraction] 6.8 % High see below [facility] Hemoglobin A1c/Hemoglobin.to guero 10-16-2023 HbA1c (Bld) [Mass fraction] 6.8 % High see below [facility] Comment on above: Order Comment: If val monroe has not had PT + INR in the last 24 hours. Nursing to release order. Performed By: #### 5 902-2 #### ERICA Tam ([id number]) [facility] ([facility]) [address] [place] [address] Heparin Assay, UFHon 024 Heparin unfractionated Chromogenic method Qn (PPP) 0.2 See Comment Below for Therapeutic Ranges IU/mL [facility] Heparin unfractionated Chromogenic method Qn (PPP) 0.1 See Comment Below for Therapeutic Ranges IU/mL [facility] Heparin unfractionated Chromogenic method Qn (PPP) 0.1 See Comment Below for Therapeutic Ranges IU/mL [facility] Heparin unfractionated Chrom ogenic method Qn (PPP)on 10-16-2023 Interpretation and review of laboratory results Normal [facility] The therapeutic reference range for UFH may be either 0.3-0.6 IU/mL or 0.3-0.7 IU/mL based on the clinical setting for anticoagulant therapy and the associated nomogram used. For Heparin dosing guidelines based on clinical scenario and Heparin Assay results, please refer to local Pharmacy and [facility] Guidelines for Anticoagulation Therapy available on the [facility] intranet at: [email or web address]_ Guidelines_for_Anticoagu .aspx [facility] Interpretation and review of laboratory results Normal [facility] The therapeutic reference range for UFH may be either 0.3-0.6 IU/mL or 0.3-0.7 IU/mL based on the clinical setting for anticoagulant therapy and the associated nomogram used. For Heparin dosing guidelines based on clinical scenario and Heparin Assay results, please refer to local Pharmacy and [facility] Guidelines for Anticoagulation Therapy available on the [facility] intranet at: [email or web address]_ Guidelines_for_Anticoagu .aspx [facility] Interpretation and review of laboratory results Normal [facility] The therapeutic reference range for UFH may be either 0.3-0.6 IU/mL or 0.3-0.7 IU/mL based on the clinical setting for anticoagulant therapy and the associated nomogram used. For Heparin dosing guidelines based on clinical scenario and Heparin Assay results, please refer to local Pharmacy and the [facility] Guidelines for Anticoagulation Therapy available on the [facility] intranet at: [email or web address]_ Guidelines_for_Anticoagu .aspx [facility] Heparin.unfractionatedon Heparin unfractionated Chromogenic method Qn (PPP) 0.3 IU/mL Normal See Comment Below for Therapeutic Ranges [facility] Comment on above: Order Comment: Prior to initiating heparin if not obtained in prior 48 hours. Nursing to release order. The APTT is no longer used for monitoring Unfractionated Heparin Therapy. For monitoring Heparin Therapy, use the Heparin Assay. Performed By: #### 1 4979-9 #### ERICA Tam ([id number]) [facility] ([facility]) [address] [place] [address] Heparin unfractionated Chromogenic method Qn (PPP) 0.2 IU/mL Normal See Comment Below for Therapeutic Ranges [facility] Comment on above: Order Comment: Prior to initiating heparin if not obtained in prior 48 hours. Nursing to release order. The APTT is no longer used for monitoring Unfractionated Heparin Therapy. For monitoring Heparin Therapy, use the Heparin Assay. Performed By: #### 1 4979-9 #### ERICA Tam ([id number]) [facility] ([facility]) [address] [place] [address] Heparin unfractionated Chromogenic method Qn (PPP) 0.1 IU/mL Normal See Comment Below for Therapeutic Ranges [facility] Comment on above: Order Comment: If val maynt has not had PT + INR in the last 24 hours. Nursing to release order. Performed By: #### 5 902-2 #### ERICA Tam ([id number]) [facility] ([facility]) [address] [place], [place] [id number] Heparin unfractionated Chromogenic method Qn (PPP) 0.1 IU/mL Normal See Comment Below for Therapeutic Ranges [facility] Comment on above: Order Comment: Obtai n [...] please refer to local Pharmacy and the [facility] Guidelines for Anticoagulation Therapy available on the [facility] intranet at: [email or web address]_Guidelines_for_Anticoagu.aspx Performed By: #### 3 274-8 #### ERICA Tam ([id number]) [facility] ([facility]) [address] [place], [place] [phone] Iron and Iron binding capaci ty panelon 10-16-2023 Interpretation and review of laboratory results Abnormal [facility] Iron [Mass/Vol] 33 ug/dL Low 35 - 150 ug/dL [facility] Comment on above: MILD HEMOLYSIS DETEC ZAID. The result may be falsely elevated due to hemolysis or other interferents. Clinical correlation is recommended. Repeat testing may be considered. Iron binding capacity [Mass/Vol] 285 ug/dL 240 - 445 ug/dL [facility] Iron binding capacity.unsaturated [Mass/Vol] 252 ug/dL 110 - 370 ug/dL [facility] Iron saturation [Mass fraction] 12 % Low 25 - 45 % [facility] Iron [Mass/Vol] 33 ug/dL Low 35-150 [facility] Comment on above: Result Comment: MILD HEMOLYSIS DETECTED. The result may be falsely elevated due to hemolysis or other interferents. Clinical correlation is recommended. Repeat testing may be considered. Performed By: #### 5 902-2 #### ERICA Tam ([id number]) [facility] ([facility]) [address] [place] [address] Iron binding capacity [Mass/Vol] 285 ug/dL Normal 240-445 [facility] Comment on above: Performed By: #### 5 902-2 #### ERICA Tam ([id number]) [facility] ([facility]) [address] [place] [address] Iron binding capacity.unsaturated [Mass/Vol] 252 ug/dL Normal 110-370 [facility] Comment on above: Performed By: #### 5 902-2 #### ERICA Tam ([id number]) [facility] ([facility]) [address] [place] [address]33 Iron saturation [Mass fraction] 12 % Low 25-45 [facility] Comment on above: Performed By: #### 5 902-2 #### ERICA Tam ([id number]) [facility] ([facility]) [address] [place] [address]703 LIPID PANEL NON-FASTINGon Cholesterol [Mass/Vol] 114 mg/dL Normal 0-199 [facility] Comment on above: Result Comment: Age Desirable [...] By: #### L IPIN #### ERICA Tam ([id number]) [facility] ([facility]) [address] [place] [address] 16181 Cholesterol in HDL [Mass/Vol] 25.8 mg/dL Normal [facility] Comment on above: Result Comment: Age Very Low Low Normal High 0-19 Y < 35 < 40 40-45 ---- 20-24 Y ---- < 40 >45 ---- >24 Y ---- < 40 40-60 >60 Performed By: #### L IPIN #### ERICA Tam ([id number]) [facility] ([facility]) [address] [place] [address] CHOLESTEROL/HDL RATIO 4.4 Normal [facility] Comment on above: Result Comment: Ref Values Desirable < 3.4 High Risk > 5.0 Performed By: #### L IPIN #### ERICA Tam ([id number]) [facility] ([facility]) [address] [place] [address] NON-HDL CHOLESTEROL 88 mg/dL Normal 0-149 [facility] Comment on above: Result Comment: Age Desiable Borderline High High Very High 0-19 Y 0 - 119 120 - 144 >/= 145 >/= 160 20-24 Y 0 - 149 150 - 189 >/= 190 ---- >24 Y 30 MG/DL ABOVE LDL CHOLESTEROL GOAL Performed By: #### L IPIN #### ERICA Tam ([id number]) [facility] ([facility]) [address] [place] [address] 45247 Lipid Panel Non-Fastingon Cholesterol [Mass/Vol] 114 mg/dL 0 - 1 99 mg/dL [facility] Comment on above: Age Desirable Borderline High [...] dosing. Cholesterol in HDL [Mass/Vol] 25.8 mg/dL [facility] Comment on above: Age Very Low Low Normal High 0-19 Y < 35 < 40 40-45 ---- 20-24 Y ---- < 40 >45 ---- >24 Y ---- < 40 40-60 >60 Cholesterol.total/Cele sterol in HDL [Mass ratio] 4.4 {ratio} [facility] Comment on above: Ref Values Desirable < 3.4 High Risk > 5.0 Non-HDL Cholesterol 88 mg/dL 0 - 149 mg/dL [facility] Comment on above: Age Desiable Borderline High High Very High 0-19 Y 0 - 119 120 - 144 >/= 145 >/= 160 20-24 Y 0 - 149 150 - 189 >/= 190 ---- >24 Y 30 MG/DL ABOVE LDL CHOLESTEROL GOAL [facility] Magnesiumon 10-16-2023 Magnesium [Mass/Vol] 1.84 mg/dL 1.60 - 2.40 mg/dL [facility] Magnesium [Mass/Vol] 1.84 mg/dL Normal 1.60-2.40 [facility] Comment on above: Performed By: #### 1 4979-9 #### ERICA Tam ([id number]) [facility] ([facility]) [address] [place] [address] Magnesium [Mass/Vol]on 10-15 Interpretation and review of laboratory results Normal [facility] Natriuretic peptide B [Mass/ Vol]on 10-16-2023 Interpretation and review of laboratory results Normal [facility] Natriuretic peptide B (Bld) [Mass/Vol] 88 pg/mL 0 - 99 pg/mL [facility] <100 pg/mL - Heart failure unlikely 100-299 [...] contact their local laboratory for further information. [facility] Natriuretic peptide B (Bld) [Mass/Vol] 88 pg/mL Normal 0-99 [facility] Comment on above: Order Comment: If val monroe has not had PT + INR in the last 24 hours. Nursing to release order. Performed By: #### 5 902-2 #### ERICA Tam ([id number]) [facility] ([facility]) [address] [place], [place] [phone] No Panel Informationon 10-15 [facility] Interpretation and review of laboratory results Normal [facility] Interpretation and review of laboratory results Normal [facility] PT Coag (PPP) [Time]on 10-15 INR Coag (PPP) [Relative time] 1.1 {INR} 0.9 - 1.1 [facility] INR Coag (PPP) [Relative time] 1.1 Normal 0.9-1.1 [facility] Comment on above: Order Comment: If val monroe has not had PT + INR in the last 24 hours. Nursing to release order. Performed By: #### 5 902-2 #### ERICA Tam ([id number]) [facility] ([facility]) [address] [place], [place] [phone] Platelets Auto (Bld) [#/Vol] on 10-16-2023 Interpretation and review of laboratory results Normal [facility] Platelets (Bld) [#/Vol] 276 10*3/uL [facility] Platelets (Bld) [#/Vol] 276 x10*3/uL Normal 150-450 [facility] Comment on above: Order Comment: Basel ine platelet count before any heparin given. May discontinue if platelet count already obtained today, or if heparin already administered. Performed By: #### 7 77-3 #### ERICA Tam ([id number]) [facility] ([facility]) [address] [place] [address] 04818 Protime-INRon 10-16-2023 PT Coag (PPP) [Time] 12.[address] [facility] Pulmonary function testingOr dered By: Samara Huston on 10-16-2023 FEV1 - Pre 1.62 [facility] Work Phone: FEV1 - Predicted 3.09 [facility] Work Phone: FVC - PRE 1.80 [facility] Work Phone: FVC Predicted 4.08 [facility] Work Phone: [facility] Work Phone: Pulmonary function testingon 10-16-2023 Preserved ratio impa ired spirometry (PRISm), which could be due to restriction or a non-specific pattern. Recommend lung volumes if clinically indicated. [facility] Samara Murdock MD - 10/18/2023 Preserved ratio impaired spirometry (PRISm), which could be due to restriction or a non-specific pattern. Recommend lung volumes if clinically indicated. [facility] Work Phone: Renal function 2000 panelon 10-16-2023 Albumin BCP dye [Mass/Vol] 3.1 g/dL Low 3.4 - 5.0 g/dL [facility] Anion gap [Moles/Vol] 15 mmol/L 10 - 2 0 mmol/L [facility] Calcium [Mass/Vol] 8.2 mg/dL Low 8.6 - 10. 6 mg/dL [facility] Chloride [Moles/Vol] 103 mmol/L 98 - 10 7 mmol/L [facility] CO2 [Moles/Vol] 24 mmol/L 21 - 32 mmol/L [facility] Creatinine [Mass/Vol] 1.52 mg/dL High 0.50 - 1.30 mg/dL [facility] GFR/1.73 sq M.predicted among non-blacks MDRD (S/P/Bld) [Vol rate/Area] 49 mL/min/{1.73_m2} Low - PINF [facility] Comment on above: Calculations of mercedez mated GFR are performed using the 2020 CKD-EPI Study Refit equation without the race variable for the IDMS-Traceable creatinine methods. https://jasn.asnjournals.org/content//ASN.2020 270918 Glucose [Mass/Vol] 229 mg/dL High 74 - 99 mg/dL [facility] Interpretation and review of laboratory results Abnormal [facility] Phosphate [Mass/Vol] 3.1 mg/dL 2.5 - 4 .9 mg/dL [facility] Comment on above: The performance cecilia acteristics of phosphorus testing in heparinized plasma have been validated by the individual laboratory site where testing is performed. Testing on heparinized plasma is not approved by the FDA; however, such approval is not necessary. Potassium [Moles/Vol] 4.1 mmol/L 3.5 - 5.3 mmol/L [facility] Sodium [Moles/Vol] 138 mmol/L 136 - 145 mmol/L [facility] Urea nitrogen [Mass/Vol] 32 mg/dL High 6 - 23 mg/dL [facility] Albumin BCP dye [Mass/Vol] 3.1 g/dL Low 3.4-5.0 [facility] Comment on above: Performed By: #### 1 4979-9 #### ERICA Tam ([id number]) [facility] ([facility]) [address] [place] [address]31 Anion gap [Moles/Vol] 15 mmol/L Normal 10-20 [facility] Comment on above: Performed By: #### 1 4979-9 #### ERICA Tam ([id number]) [facility] ([facility]) [address] [place] [address]73 Calcium [Mass/Vol] 8.2 mg/dL Low 8.6-10.6 [facility] Comment on above: Performed By: #### 1 4979-9 #### ERICA MCDONALD L ([id number]) [facility] ([facility]) [address] [place] [address] 31856 Chloride [Moles/Vol] 103 mmol/L Normal 98-107 [facility] Comment on above: Performed By: #### 1 4979-9 #### ERICA MCDONALD L ([id number]) [facility] ([facility]) [address] [place] [address] 94200 CO2 [Moles/Vol] 24 mmol/L Normal 21-32 [facility] Comment on above: Performed By: #### 1 4979-9 #### ERICA Tam ([id number]) [facility] ([facility]) [address] [place] [address] Creatinine [Mass/Vol] 1.52 mg/dL High 0.50-1.30 [facility] Comment on above: Performed By: #### 1 4979-9 #### ERICA Tam ([id number]) [facility] ([facility]) [address] [place] [address]30 Glomerular filtration rate/1.73 sq M.predicted 49 mL/min/1.73m*2 Low >60 [facility] Comment on above: Result Comment: Calc ulations of estimated GFR are performed using the 2020 CKD-EPI Study Refit equation without the race variable for the IDMS-Traceable creatinine methods. https://jasn.asnjournals.org/content/early/ASN.2020 070451 Performed By: #### 1 4979-9 #### ERICA Tam ([id number]) [facility] ([facility]) [address] [place] [address] 67540 Glucose [Mass/Vol] 229 mg/dL High 74-99 [facility] Comment on above: Performed By: #### 1 4979-9 #### ERICA Tam ([id number]) [facility] ([facility]) [address] [place] [address] 91667 Phosphate [Mass/Vol] 3.1 mg/dL Normal 2.5-4.9 [facility] Comment on above: Result Comment: The performance characteristics of phosphorus testing in heparinized plasma have been validated by the individual laboratory site where testing is performed. Testing on heparinized plasma is not approved by the FDA; however, such approval is not necessary. Performed By: #### 1 4979-9 #### ERICA Tam ([id number]) [facility] ([facility]) [address] [place] [address] Potassium [Moles/Vol] 4.1 mmol/L Normal 3.5-5.3 [facility] Comment on above: Performed By: #### 1 4979-9 #### ERICA Tam ([id number]) [facility] ([facility]) [address] [place], [place] [phone] Sodium [Moles/Vol] 138 mmol/L Normal 136-145 [facility] Comment on above: Performed By: #### 1 4979-9 #### ERICA Tam ([id number]) [facility] ([facility]) [address] [place], [place] [phone] Urea nitrogen [Mass/Vol] 32 mg/dL High 6-23 [facility] Comment on above: Performed By: #### 1 4979-9 #### ERICA Tam ([id number]) [facility] ([facility]) [address] [place] [address] 72404 Staphylococcus aureus.methic illin resistant isolateon 10-16-2023 MRSA isol Org specific cx Ql (Nose) Test: Staphylococcus aureus/MRSA colonization, Culture Specimen Source: Anterior Nares Specimen Type: Swab Specimen Date: 10/16/2023 1023 Result Date: 10/17/2023 1257 Result Status: Final result Abnormal: No Resulting Lab: [facility] [address] [place] [address] CULTURE No Staphylococcus aureus isolated Normal [facility] Comment on above: Performed By: #### 2 4323-8 #### ERICA Tam ([id number]) [facility] ([facility]) [address] [place], [place] [phone] TSH WITH REFLEX TO FREE T4 I F ABNORMALon 10-16-2023 TSH Qn 6.30 m[IU]/L High 0.44-3.98 [facility] Comment on above: Order Comment: TSH t esting is performed using different testing methodology at [facility] than at other [facility]. Direct result comparisons should only be made within the same method. Performed By: #### T HYDS #### ERICA Tam ([id number]) [facility] ([facility]) [address] [place] [id number] TSH with reflex to Free T4 i f abnormalon 10-16-2023 Interpretation and review of laboratory results Abnormal [facility] TSH Qn 6.30 m[IU]/L High [facility] TSH testing is perfo rmed using different testing methodology at [facility] than at other [facility]. Direct result comparisons should only be made within the same method. [facility] Thyroxine, Freeon 10-16-2023 Free T4 [Mass/Vol] 1.20 ng/dL 0.78 - 1. 48 ng/dL [facility] Thyroxine.freeon 10-16-2023 Free T4 [Mass/Vol] 1.20 ng/dL Normal 0.78-1.48 [facility] Comment on above: Order Comment: If val monroe has not had PT + INR in the last 24 hours. Nursing to release order. Performed By: #### 5 902-2 #### ERICA Tam ([id number]) [facility] ([facility]) [address] [place], [place] [phone] Tropinin I.cardiac panel Hig h sensitivity methodon 10-16-2023 Interpretation and review of laboratory results Abnormal [facility] Less than 99th percentile of normal range [...] performed using a different testing methodology at [facility] than at other [facility]. Direct result comparisons should only be made within the same method. [facility] Troponin I, High Sensitivity on 10-16-2023 Tropinin I.cardiac panel High sensitivity method 916 ng/L Critically high 0 - 53 ng/L [facility] Troponin I.cardiac panelon 0 10-16-2023 Tropinin I.cardiac panel High sensitivity method 916 ng/L Critically high 0-53 [facility] Comment on above: Order Comment: If val monroe has not had PT + INR in the last 24 hours. Nursing to release order. Performed By: #### 5 902-2 #### ERICA Tam ([id number]) [facility] ([facility]) [address] [place] [address] Urinalysis complete W Reflex Culture panel (U)on 10-16-2023 Appearance (U) Clear Clear [facility] Bilirubin (U) [Mass/Vol] Negative NEGATIVE [facility] Color (U) Light-Yellow Light-Yellow , Yellow, Dark-Yellow [facility] Glucose Auto test strip (U) [Mass/Vol] 50 (TRACE) Abnormal Normal mg/dL [facility] Interpretation and review of laboratory results Abnormal [facility] Ketones (U) [Mass/Vol] Negative NEGAT EL mg/dL [facility] Leukocyte esterase Auto test strip Ql (U) Negative NEGATIVE [facility] Mucus Auto (Urine sed) [#/Area] FEW Reference range not established. /LPF [facility] Nitrite Auto test strip Ql (U) Negative NEGATIVE [facility] pH (U) 5.0 [pH] 5.0, 5.5, 6.0, 6.5, 7.0, 7.5, 8.0 [facility] Protein (U) [Mass/Vol] 10 (TRACE) NEGAT LE, 10 (TRACE), 20 (TRACE) mg/dL [facility] RBC (U) [#/Vol] Negative NEGATIVE [facility] RBC Auto (Urine sed) [#/Area] NONE NONE, 1-2, 3-5 /HPF [facility] Specific gravity (U) [Rel density] 1.026 1.005 - 1.035 [facility] Urobilinogen (U) [Mass/Vol] Normal Normal mg/dL [facility] WBC Auto (Urine sed) [#/Area] 1-5 1-5, NONE /HPF [facility] Appearance (U) Clear Normal Clear [facility] Comment on above: Performed By: #### 5 8077-9 #### ERICA Tam ([id number]) [facility] ([facility]) [address] [place] [address] 95932 Bilirubin (U) [Mass/Vol] Negative Normal NEGATIVE [facility] Comment on above: Performed By: #### 5 8077-9 #### ERICA Tam ([id number]) [facility] ([facility]) [address] [place] [address] 10170 Color (U) Light-Yellow Normal Light-Yellow , Yellow, Dark-Yellow [facility] Comment on above: Performed By: #### 5 8077-9 #### ERICA Tam ([id number]) [facility] ([facility]) [address] [place] [address] 77546 Glucose Auto test strip (U) [Mass/Vol] 50 (TRACE) Abnormal Normal [facility] Comment on above: Performed By: #### 5 8077-9 #### ERICA Tam ([id number]) [facility] ([facility]) [address] [place] [address] 39877 Ketones (U) [Mass/Vol] Negative Normal NE[facility]IVE [facility] on above: Performed By: #### 5 8077-9 #### ERICA Tam ([id number]) [facility] ([facility]) [address] [place] [address] 98819 Leukocyte esterase Auto test strip Ql (U) Negative Normal NEGATIVE [facility] Comment on above: Performed By: #### 5 8077-9 #### ERICA Tam ([id number]) [facility] ([facility]) [address] [place] [address] 57155 Mucus Auto (Urine sed) [#/Area] FEW Normal Reference range not established. [facility] Comment on above: Performed By: #### 5 8077-9 #### ERICA MCDONALD L ([id number]) [facility] ([facility]) [address] [place] [address] 15995 Nitrite Auto test strip Ql (U) Negative Normal NEGATIVE [facility] Comment on above: Performed By: #### 5 8077-9 #### ERICA Tam ([id number]) [facility] ([facility]) [address] [place] [address] 32389 pH (U) 5.0 [pH] Normal 5.0, 5.5, 6.0, 6.5, 7.0, 7.5, 8.0 [facility] Comment on above: Performed By: #### 5 8077-9 #### ERICA Tam ([id number]) [facility] ([facility]) [address] [place] [address] 13938 Protein (U) [Mass/Vol] 10 (TRACE) Normal NEGAT LE, 10 (TRACE), 20 (TRACE) [facility] Comment on above: Performed By: #### 5 8077-9 #### ERICA Tam ([id number]) [facility] ([facility]) [address] [place] [address] 40104 RBC (U) [#/Vol] Negative Normal NEGATIVE [facility] Comment on above: Performed By: #### 5 8077-9 #### ERICA Tam ([id number]) [facility] ([facility]) [address] [place] [address] 33715 RBC Auto (Urine sed) [#/Area] NONE Normal NONE, 1-2, 3-5 [facility] Comment on above: Performed By: #### 5 8077-9 #### ERICA Tam ([id number]) [facility] ([facility]) [address] [place] [address] 03528 Specific gravity (U) [Rel density] 1.026 Normal 1.005-1.035 [facility] Comment on above: Performed By: #### 5 8077-9 #### ERICA Tam ([id number]) [facility] ([facility]) [address] [place] [address] 53973 Urobilinogen (U) [Mass/Vol] Normal Normal Normal [facility] Comment on above: Performed By: #### 5 8077-9 #### ERICA Tam ([id number]) [facility] ([facility]) [address] [place] [address] WBC Auto (Urine sed) [#/Area] 1-5 Normal 1-5, NONE [facility] Comment on above: Performed By: #### 5 8077-9 #### ERICA Tam ([id number]) [facility] ([facility]) [address] [place] [address] Vitamin B12on 10-16-2023 Cobalamin (Vitamin B12) [Mass/Vol] 201 pg/mL Low 211 - 911 pg/mL [facility] XR CHEST 2 VIEWSon 4 XR CHEST 2 VIEWS Interpreted By: Rex Ballesteros, STUDY: XR CHEST 2 VIEWS; 10/16/2023 2:01 pm INDICATION: Signs/Symptoms:CABG evaluation. COMPARISON: None. ACCESSION NUMBER(S): [id number] ORDERING CLINICIAN: CATIA PATTON FINDINGS: CARDIOMEDIASTINAL SILHOUETTE: Cardiomegaly versus pericardial effusion. Right hilar calcifications. LUNGS: Low lung volumes with perihilar bibasilar atelectasis/effusions. ABDOMEN: No remarkable upper abdominal findings. BONES: No acute osseous changes. IMPRESSION: 1. Cardiomegaly with pulmonary edema and correlate with cardiac and fluid status. Signed by: Rex Ballesteros 10/18/2023 7:12 AM Dictation workstation: [id number] Normal [facility] XR Chest 2 Viewson 4 Radiology Study observation (narrative) [facility] Work Phone: aPTT - baselineon 10-16-2023 aPTT Coag (PPP) [Time] 30 s Un [facility] aPTT Coag (PPP) [Time]on The APTT is no longe r used for monitoring Unfractionated Heparin Therapy. For monitoring Heparin Therapy, use the Heparin Assay. [facility] Activated partial thrombopla stin time (aPTT) in platelet poor plasma by coagulation aOrdered By: Ann Henao on 10-15-2023 aPTT Coag (PPP) [Time] 45.5 s High 25.1-36.5 [facility] Comment on above: A hematocrit value g reater than 55% may lead to inaccurate results in coagulation testing. Patients having hematocrit values >55% require a special collection tube for coagulation studies. Please contact the laboratory at [phone] for redraw instructions. Alanine aminotransferase [En zymatic activity/volume] in Serum or PlasmaOrdered By: Alondra Gonzales on 10-15-2023 ALT [Catalytic activity/Vol] 17 U/L Normal 7-52 [facility] Comment on above: Performed By: #### G LULS #### Point of Care testing , Albumin [Mass/volume] in Ser um or Plasma by Bromocresol green (BCG) dye binding methoOrdered By: Alondra Gonzales on 10-15-2023 Albumin BCG dye [Mass/Vol] 3.4 g/dL Low 3.5-5.7 [facility] Alkaline phosphatase [Enzyma tic activity/volume] in Serum or PlasmaOrdered By: Alondra Gonzales on 10-15-2023 ALP [Catalytic activity/Vol] 62 U/L Normal 34-104 [facility] Comment on above: Performed By: #### G LULS #### Point of Care testing , Aspartate aminotransferase [ Enzymatic activity/volume] in Serum or PlasmaOrdered By: Alondra Gonzales on 10-15-2023 AST [Catalytic activity/Vol] 16 U/L Normal 13-39 [facility] Comment on above: Performed By: #### G LULS #### Point of Care testing , Automated basophil %Ordered By: Alondra Gonzales on 10-15-2023 Basophils/100 WBC (Bld) 1.0 % Normal . [facility] Comment on above: Performed By: #### C BC #### [address] Automated basophil countOrde red By: Alondra Gonzales on 10-15-2023 Basophils (Bld) [#/Vol] 0.1 10*3/uL Normal 0.0-0.2 [facility] Comment on above: Result Comment: PERF ORMED BY: [place] [address] [facility] LIAISON WOLFGANG JOHNSON M.D. Performed By: #### C BC #### [address] Automated blood monocyte cou ntOrdered By: Mohamarakel Gonzales on 10-15-2023 Monocytes (Bld) [#/Vol] 0.9 10*3/uL High 0.0-0.8 [facility] Comment on above: Performed By: #### C BC #### [address] Automated eosinophil %Ordere d By: Mohamad Christian on 10-15-2023 Eosinophils/100 WBC (Bld) 3.7 % Normal . [facility] Comment on above: Performed By: #### C BC #### [address] Automated eosinophil countOr dered By: Alondra Gonzales on 10-15-2023 Eosinophils (Bld) [#/Vol] 0.4 10*3/uL Normal 0.0-0.45 [facility] Comment on above: Performed By: #### C BC #### [address] Automated monocyte %Ordered By: Alondra Gonzales on 10-15-2023 Monocytes/100 WBC (Bld) 9.3 % Normal . [facility] Comment on above: Performed By: #### C BC #### [address] Automated neutrophil %Ordere d By: Mohamad Christian on 10-15-2023 Neutrophils/100 WBC (Bld) 74.1 % Normal . [facility] Comment on above: Performed By: #### C BC #### [address] Bilirubin.total [Mass/volume ] in Serum or PlasmaOrdered By: Alondra Gonzales on 10-15-2023 Bilirubin [Mass/Vol] 0.4 mg/dL Normal 0.3-1.0 [facility] Comment on above: Performed By: #### G LULS #### Point of Care testing , Calcium [Mass/volume] in Ser um or PlasmaOrdered By: Alondra Gonzales on 10-15-2023 Calcium [Mass/Vol] 8.1 mg/dL Low 8.6-10.3 [facility] Comment on above: Performed By: #### G LULS #### Point of Care testing , Capillary blood glucose jose urement by glucometer (mass/volume)Ordered By: Yovanny Rivera on 10-15-2023 Glucose [Mass/Vol] 277 mg/dL Normal [facility] Comment on above: Random Glucose Refer ence Range is dependent on time and content of last meal. Glucose of more than 200 mg/dL in a nonstressed, ambulatory subject supports the diagnosis of Diabetes Mellitus. Result Comment: [place] om Glucose Reference Range is dependent on time and content of last meal. Glucose of more than 200 mg/dL in a nonstressed, ambulatory subject supports the diagnosis of Diabetes Mellitus. PERFORMED BY: [place] [address] [facility] LIAISON WOLFGANG JOHNSON M.D. Performed By: #### C BC, ESR #### [address] Carbon dioxide, total [Moles /volume] in Serum or PlasmaOrdered By: Alondra Gonzales on 10-15-2023 CO2 [Moles/Vol] 28.2 mmol/L Normal 21.0-31.0 [facility] Comment on above: Performed By: #### G LULS #### Point of Care testing , Chloride [Moles/volume] in S teodoro or PlasmaOrdered By: Alondra Gonzales on 10-15-2023 Chloride [Moles/Vol] 104 mmol/L Normal 98-107 [facility] Comment on above: Performed By: #### G LULS #### Point of Care testing , Complete Blood Count Auto Di ffon 10-15-2023 Mean Corpuscular HGB Conc 33.4 g/dL Normal 32.5-35.6 [facility] Comment on above: Performed By: #### C BC #### [facility] [address] [place] [address] NRBC% 0.1 /100{WBC} Normal 0-0.5 [facility] Comment on above: Performed By: #### C BC #### [facility] [address] [place] [address] Comprehensive Metabolic Pane laxmi 10-15-2023 Albumin [Mass/Vol] 3.4 g/dL Low 3.5-5.7 [facility] Comment on above: Performed By: #### G LULS #### Point of Care testing , Creatinine Clr Calc Pharmacy 51.77 Normal [facility] Comment on above: Performed By: #### G LULS #### Point of Care testing , GFR/1.73 sq M.predicted MDRD (S/P/Bld) [Vol rate/Area] 43.716 mL/min/{1.73_m2} Normal [facility] Comment on above: Performed By: #### G LULS #### Point of Care testing , Creatinine [Mass/volume] in Serum or PlasmaOrdered By: Alondra Gonzales on 10-15-2023 Creatinine [Mass/Vol] 1.68 mg/dL High 0.70-1.30 [facility] Comment on above: Performed By: #### G LULS #### Point of Care testing , ECH echo transthoracicon ECH echo transthoracic [facility] [place] [address] [place] [address] Echocardiogram Signed Patient: Italia Allen MR#: [id number] : 1955 Acct:[id number] Age/Sex: 68 / M ADM Date: 10/14/23 Loc: Room: [address] [place] [address] Type: ADM IN Attending Dr: Yovanny Rivera [...] 1019 Signed By: Diogenes Talley MD 10/15/23 2695 Normal [facility] Erythrocyte distribution wid th [Ratio] by Automated countOrdered By: Alondra Gonzales on 10-15-2023 Erythrocyte distribution width (RBC) [Ratio] 15.1 % High 12.0-14.8 [facility] Comment on above: Performed By: #### C BC #### [facility] [address] Erythrocytes [#/volume] in B lood by Automated countOrdered By: Alondra Gonzales on 10-15-2023 RBC (Bld) [#/Vol] 3.97 10*6/uL Normal 3.90-5.60 [facility] Comment on above: Performed By: #### C BC #### [facility] [address] Glucose Poct Glucometerson 0 10-15-2023 Commemt1 Glu2: Cleaned Meter Normal [facility] Comment on above: Result Comment: PERF ORMED BY: [place] [address] [facility] LIAISON WOLFGANG JOHNSON M.D. Performed By: #### G LUFAISAL #### Point of Care testing , Glucose [Mass/Vol] 303 mg/dL Normal [facility] Comment on above: Result Comment: [place] Glucose Reference Range is dependent on time and content of last meal. Glucose of more than 200 mg/dL in a nonstressed, ambulatory subject supports the diagnosis of Diabetes Mellitus. Performed By: #### G LULS #### Point of Care testing , Commemt1 Glu2: Cleaned Meter Normal [facility] Comment on above: Result Comment: PERF ORMED BY: [address] [place] [address] [facility] LIAISON WOLFGANG JOHNSON M.D. Performed By: #### G LULS #### Point of Care testing , Glucose [Mass/Vol] 257 mg/dL Normal [facility] Comment on above: Result Comment: [place] om Glucose Reference Range is dependent on time and content of last meal. Glucose of more than 200 mg/dL in a nonstressed, ambulatory subject supports the diagnosis of Diabetes Mellitus. Performed By: #### G LULS #### Point of Care testing , Commemt1 Glu2: Cleaned Meter Normal [facility] Comment on above: Result Comment: PERF ORMED BY: [address] [place] [address] [facility] LIAISON WOLFGANG JOHNSON M.D. Performed By: #### G LULS #### Point of Care testing , Glucose [Mass/Vol] 159 mg/dL Normal [facility] Comment on above: Result Comment: [place] om Glucose Reference Range is dependent on time and content of last meal. Glucose of more than 200 mg/dL in a nonstressed, ambulatory subject supports the diagnosis of Diabetes Mellitus. Performed By: #### G LULS #### Point of Care testing , Glucose [Mass/volume] in Ser um or PlasmaOrdered By: Alondra Gnozales on 10-15-2023 Glucose [Mass/Vol] 120 mg/dL Significant change up 70-100 [facility] Comment on above: Delta: 220 on -7ADA recommended reference rangeRandom Glucose Reference Range is dependent on time and content of last meal. Glucose of more than 200 mg/dL in a nonstressed, ambulatory subject supports the diagnosis of Diabetes Mellitus. Result Comment: [place] om Glucose Reference Range is dependent on [...] (Bld) [Volume fraction] 35.0 % Low 38.8-50.0 [facility] Comment on above: Performed By: #### C BC #### [address] Hemoglobin [Mass/volume] in BloodOrdered By: Alondra Gonzales on 10-15-2023 Hemoglobin (Bld) [Mass/Vol] 11.7 g/dL Low 13.0-17.0 [facility] Comment on above: Performed By: #### C BC #### [address] INR in Platelet poor plasma by Coagulation assayOrdered By: Alondra Gonzales on 10-15-2023 INR Coag (PPP) [Relative time] 1.1 {INR} Normal [facility] Comment on above: INR Therapeutic [...] Performed By: #### P TT, PT #### [address] Leukocytes [#/volume] correc zaid for nucleated erythrocytes in Blood by Automated counOrdered By: Alondra Gonzales on 10-15-2023 WBC corrected for nucl RBC Auto (Bld) [#/Vol] 9.8 10*3/uL 4.1-10.5 [facility] Leukocytes [#/volume] in Blo od by Automated countOrdered By: Alondra Gonzales on 10-15-2023 WBC (Bld) [#/Vol] 9.8 10*3/uL Normal 4.1-10.5 [facility] Comment on above: Performed By: #### C BC #### [facility] [address] [place] [address] Lymphocytes [#/volume] in Bl ood by Automated countOrdered By: Alondra Gonzales on 10-15-2023 Lymphocytes (Bld) [#/Vol] 1.2 10*3/uL Normal 1.00-4.8 [facility] Comment on above: Performed By: #### C BC #### [facility] [address] [place] [address] Lymphocytes/100 leukocytes i n Blood by Automated countOrdered By: Alondra Gonzales on 10-15-2023 Lymphocytes/100 WBC (Bld) 11.9 % Normal . [facility] Comment on above: Performed By: #### C BC #### [address] MCH [Entitic mass] by Automa zaid countOrdered By: Alondra Gonzales on 10-15-2023 MCH (RBC) [Entitic mass] 29.4 pg Normal 27.5-35.2 [facility] Comment on above: Performed By: #### C BC #### [facility] [address] [place] [address] MCHC Auto (RBC) [Mass/Vol]Or dered By: Alondra Gonzales on 10-15-2023 MCHC (RBC) [Mass/Vol] 33.4 g/dL 32.5-35.6 [facility] MCV [Entitic volume] by Auto mated countOrdered By: Alondra Gonzales on 10-15-2023 MCV (RBC) [Entitic vol] 87.9 fL Normal 83.5-101 [facility] Comment on above: Performed By: #### C BC #### [facility] [address] Magnesium [Mass/volume] in S teodoro or PlasmaOrdered By: Alondra Gonzales on 10-15-2023 Magnesium [Mass/Vol] 1.7 mg/dL Low 1.9-2.7 [facility] Comment on above: Result Comment: PERF ORMED BY: [address] [place] [address] [facility] LIAISON WOLFGANG JOHNSON M.D. Performed By: #### G LUFAISAL #### Point of Care testing , Neutrophils [#/volume] in Bl ood by Automated countOrdered By: Alondra Gonzales on 10-15-2023 Neutrophils (Bld) [#/Vol] 7.3 10*3/uL Normal 1.8-7.7 [facility] Comment on above: Performed By: #### C BC #### [facility] [address] [place] [address] No Panel InformationOrdered By: Yovanny Rivera on 10-15-2023 Bedside Glucose Comment Glu2: cleaned meter [facility] No Panel InformationOrdered By: Alondra Gonzales on 10-15-2023 Estimated GFR (CKD-EPI) 43.716 mL/Min [facility] Creatinine Clearance (Chem 51.77 [facility] Nucleated erythrocytes [Pres ence] in Blood by Automated countOrdered By: Alondra Gonzales on 10-15-2023 Nucleated RBC Auto Ql (Bld) 0.1 /100{WBC} 0-0.5 [facility] Partial Thromboplastin Timeo n 10-15-2023 aPTT Coag (Bld) [Time] 45.5 s High 25.1-36.5 Th [facility] Comment on above: Result Comment: A he matocrit value greater than 55% may lead to inaccurate results in coagulation testing. Patients having hematocrit values >55% require a special collection tube for coagulation studies. Please contact the laboratory at [phone] for redraw instructions. PERFORMED BY: [facility] [address] [facility] LIAISON WOLFGANG JOHNSON M.D. Performed By: #### P TT #### [address] aPTT Coag (Bld) [Time] 41.7 s High 25.1-36.5 Th e [facility] Comment on above: Order Comment: List the anticoagulant: HEPARIN, UNFRACTIONATED Result Comment: A he matocrit value greater than 55% may lead to inaccurate results in coagulation testing. Patients having hematocrit values >55% require a special collection tube for coagulation studies. Please contact the laboratory at [phone] for redraw instructions. PERFORMED BY: [place] [address] [facility] LIAISON WOLFGANG JOHNSON M.D. Performed By: #### P TT, PT #### [place] [address] [place] Phosphate [Mass/volume] in S teodoro or PlasmaOrdered By: Alondra Gonzales on 10-15-2023 Phosphate [Mass/Vol] 3.8 mg/dL Normal 2.5-4.5 [facility] Comment on above: Performed By: #### G LULS #### Point of Care testing , Platelet mean volume [Entiti c volume] in Blood by Automated countOrdered By: Alondra Gonzales on 10-15-2023 Platelet mean volume (Bld) [Entitic vol] 7.7 fL Normal 6.6-10.1 [facility] Comment on above: Performed By: #### C BC #### [place] [address] [place] Platelets [#/volume] in Bloo d by Automated countOrdered By: Alondra Gonzales on 10-15-2023 Platelets (Bld) [#/Vol] 285 10*3/uL Normal 150-450 [facility] Comment on above: Performed By: #### C BC #### [address] Potassium [Moles/volume] in Serum or PlasmaOrdered By: Alondra Gonzales on 10-15-2023 Potassium [Moles/Vol] 4.1 mmol/L Normal 3.5-5.1 [facility] Comment on above: Performed By: #### G LULS #### Point of Care testing , Protein [Mass/volume] in Ser um or PlasmaOrdered By: Alondra Gonzales on 10-15-2023 Protein [Mass/Vol] 5.6 g/dL Low 6.4-8.9 [facility] Comment on above: Performed By: #### G LULS #### Point of Care testing , Prothrombin time (PT)Ordered By: Alondra Gonzales on 10-15-2023 PT Coag (PPP) [Time] 12.6 s Normal 9.0-12.9 [facility] Comment on above: A hematocrit value g reater than 55% may lead to inaccurate results in coagulation testing. Patients having hematocrit values >55% require a special collection tube for coagulation studies. Please contact the laboratory at [phone] for redraw instructions. Order Comment: List the anticoagulant: HEPARIN, UNFRACTIONATED Result Comment: A he matocrit value greater than 55% may lead to inaccurate results in coagulation testing. Patients having hematocrit values >55% require a special collection tube for coagulation studies. Please contact the laboratory at [phone] for redraw instructions. Performed By: #### P TT, PT #### [address] Serum globulin measurement b y calculation (mass/volume)Ordered By: Alondra Gonzales on 10-15-2023 Globulin (S) [Mass/Vol] 2.2 g/dL Normal [facility] Comment on above: Performed By: #### G LULS #### Point of Care testing , Serum or plasma albumin/glob ulin mass ratioOrdered By: Alondra Gonzales on 10-15-2023 Albumin/Globulin [Mass ratio] 1.5 {ratio} Normal [facility] Comment on above: Performed By: #### G LULS #### Point of Care testing , Serum or plasma anion gap de terminationOrdered By: Alondra Gonzales on 10-15-2023 Anion gap [Moles/Vol] 10.9 mmol/L Normal 6.0-15.0 [facility] Comment on above: Performed By: #### G LULS #### Point of Care testing , Sodium [Moles/volume] in Ser um or PlasmaOrdered By: Alondra Gonzales on 10-15-2023 Sodium [Moles/Vol] 139 mmol/L Normal 136-145 [facility] Comment on above: Performed By: #### G LULS #### Point of Care testing , US renal BIon 10-15-2023 US renal BI [facility] [place] [address] [place] [address] Ultrasound Report Signed Patient: Italia Allen MR#: [id number] : 1955 Acct:[id number] Age/Sex: 68 / M ADM Date: 10/14/23 Loc: Room: [address] [place] [address] Type: ADM IN Attending Dr: Yovanny Rivera [...] findings. Impression dictated by: Jude Baird Jr., D.OTomy10/15/2023 9:59 AM Dictation Location: [place] [address] Tech: Rebecca Hein Transcribed By: IRISH 10/15/2359 Dictated By: Jude Baird Jr, DO 10/15/23 0954 Signed By: 10/15/2359 Normal [facility] Urea nitrogen [Mass/volume] in Serum or PlasmaOrdered By: Alondra Gonzales on 10-15-2023 Urea nitrogen [Mass/Vol] 33 mg/dL High 09-12 [facility] Comment on above: Performed By: #### G RYAN #### Point of Care testing , C reactive protein [Mass/vol ume] in Serum or PlasmaOrdered By: Alondra Gonzales on 10-14-2023 CRP [Mass/Vol] 2.7 mg/dL High 0.0-0.5 [facility] C-Reactive Proteinon 024 C-Reactive Protein 2.7 mg/dL High 0.0-0.5 [facility] Comment on above: Result Comment: PERF ORMED BY: [place] [address] [facility] LIAISON WOLFGNAG JOHNSON M.D. Performed By: #### C BC, ESR #### [address] Complete Blood Count Auto Di ffon 10-14-2023 Basophils (Bld) [#/Vol] 0.1 10*3/uL Normal 0.0-0.2 [facility] Comment on above: Performed By: #### C BC, ESR #### [address] Basophils/100 WBC (Bld) 1.3 % Normal . T marlee [facility] Comment on above: Performed By: #### C BC, ESR #### [place] [address] [place] Eosinophils (Bld) [#/Vol] 0.2 10*3/uL Normal 0.0-0.45 [facility] Comment on above: Performed By: #### C BC, ESR #### [place] [address] [place] Eosinophils/100 WBC (Bld) 3.2 % Normal . [facility] Comment on above: Performed By: #### C BC, ESR #### [address] Erythrocyte distribution width (RBC) [Ratio] 15.4 % High 12.0-14.8 [facility] Comment on above: Performed By: #### C BC, ESR #### [address] Hematocrit (Bld) [Volume fraction] 35.1 % Low 38.8-50.0 [facility] Comment on above: Performed By: #### C BC, ESR #### [address] Hemoglobin (Bld) [Mass/Vol] 11.6 g/dL Low 13.0-17.0 [facility] Comment on above: Performed By: #### C BC, ESR #### [address] Lymphocytes (Bld) [#/Vol] 0.9 10*3/uL Low 1.00-4.8 [facility] Comment on above: Performed By: #### C BC, ESR #### [address] Lymphocytes/100 WBC (Bld) 12.1 % Normal . [facility] Comment on above: Performed By: #### C BC, ESR #### [address] MCH (RBC) [Entitic mass] 29.3 pg Normal 27.5-35.2 [facility] Comment on above: Performed By: #### C BC, ESR #### [address] MCV (RBC) [Entitic vol] 88.7 fL Normal 83.5-101 T he [facility] Comment on above: Performed By: #### C BC, ESR #### [address] Mean Corpuscular HGB Conc 33.0 g/dL Normal 32.5-35.6 [facility] Comment on above: Performed By: #### C BC, ESR #### [address] Monocytes (Bld) [#/Vol] 0.6 10*3/uL Normal 0.0-0.8 [facility] Comment on above: Performed By: #### C BC, ESR #### [facility] [address] [place] [address] [place] Monocytes/100 WBC (Bld) 7.5 % Normal . T he [facility] Comment on above: Performed By: #### C BC, ESR #### [facility] [address] [place] [address] [place] Neutrophils (Bld) [#/Vol] 5.7 10*3/uL Normal 1.8-7.7 [facility] Comment on above: Performed By: #### C BC, ESR #### [facility] [address] [place] [address] [place] Neutrophils/100 WBC (Bld) 75.9 % Normal . [facility] Comment on above: Performed By: #### C BC, ESR #### [facility] [address] [place] [address] [place] NRBC% 0.1 /100{WBC} Normal 0-0.5 [facility] Comment on above: Performed By: #### C BC, ESR #### [facility] [address] [place] [address] [place] Platelet mean volume (Bld) [Entitic vol] 7.8 fL Normal 6.6-10.1 [facility] Comment on above: Performed By: #### C BC, ESR #### [facility] [address] [place] [address] [place] Platelets (Bld) [#/Vol] 290 10*3/uL Normal 150-450 [facility] Comment on above: Performed By: #### C BC, ESR #### [facility] [address] [place] [address] [place] RBC (Bld) [#/Vol] 3.95 10*6/uL Normal 3.90-5.60 [facility] Comment on above: Performed By: #### C BC, ESR #### [facility] [address] [place] [address] [place] WBC (Bld) [#/Vol] 7.5 10*3/uL Normal 4.1-10.5 [facility] Comment on above: Performed By: #### C BC, ESR #### [place] [address] [place] Basophils (Bld) [#/Vol] 0.1 10*3/uL Normal 0.0-0.2 [facility] Comment on above: Result Comment: PERF ORMED BY: [place] [address] [facility] LIAISON WOLFGANG JOHNSON M.D. Performed By: #### C BC, ESR #### [address] Basophils/100 WBC (Bld) 1.3 % Normal . [facility] Comment on above: Performed By: #### C BC, ESR #### [address] Eosinophils (Bld) [#/Vol] 0.3 10*3/uL Normal 0.0-0.45 [facility] Comment on above: Performed By: #### C BC, ESR #### [place] [address] [place] Eosinophils/100 WBC (Bld) 3.4 % Normal . [facility] Comment on above: Performed By: #### C BC, ESR #### [address] Erythrocyte distribution width (RBC) [Ratio] 15.3 % High 12.0-14.8 [facility] Comment on above: Performed By: #### C BC, ESR #### [address] Hematocrit (Bld) [Volume fraction] 35.3 % Low 38.8-50.0 [facility] Comment on above: Performed By: #### C BC, ESR #### [address] Hemoglobin (Bld) [Mass/Vol] 11.8 g/dL Low 13.0-17.0 [facility] Comment on above: Performed By: #### C BC, ESR #### [address] Lymphocytes (Bld) [#/Vol] 0.9 10*3/uL Low 1.00-4.8 [facility] Comment on above: Performed By: #### C BC, ESR #### [address] Lymphocytes/100 WBC (Bld) 10.9 % Normal . [facility] Comment on above: Performed By: #### C BC, ESR #### [address] MCH (RBC) [Entitic mass] 29.5 pg Normal 27.5-35.2 [facility] Comment on above: Performed By: #### C BC, ESR #### [address] MCV (RBC) [Entitic vol] 87.9 fL Normal 83.5-101 [facility] Comment on above: Performed By: #### C BC, ESR #### [address] Mean Corpuscular HGB Conc 33.5 g/dL Normal 32.5-35.6 [facility] Comment on above: Performed By: #### C BC, ESR #### [address] Monocytes (Bld) [#/Vol] 0.6 10*3/uL Normal 0.0-0.8 [facility] Comment on above: Performed By: #### C BC, ESR #### [place] [address] [place] Monocytes/100 WBC (Bld) 7.5 % Normal . [facility] Comment on above: Performed By: #### C BC, ESR #### [address] Neutrophils (Bld) [#/Vol] 6.0 10*3/uL Normal 1.8-7.7 [facility] Comment on above: Performed By: #### C BC, ESR #### [address] Neutrophils/100 WBC (Bld) 76.9 % Normal . [facility] Comment on above: Performed By: #### C BC, ESR #### [address] NRBC% 0.1 /100{WBC} Normal 0-0.5 [facility] Comment on above: Performed By: #### C BC, ESR #### [address] Platelet mean volume (Bld) [Entitic vol] 7.8 fL Normal 6.6-10.1 [facility] Comment on above: Performed By: #### C BC, ESR #### [address] Platelets (Bld) [#/Vol] 288 10*3/uL Normal 150-450 [facility] Comment on above: Performed By: #### C BC, ESR #### [address] RBC (Bld) [#/Vol] 4.01 10*6/uL Normal 3.90-5.60 [facility] Comment on above: Performed By: #### C BC, ESR #### [address] WBC (Bld) [#/Vol] 7.8 10*3/uL Normal 4.1-10.5 [facility] Comment on above: Performed By: #### C BC, ESR #### [address] Comprehensive Metabolic Pane laxmi 10-14-2023 Albumin [Mass/Vol] 3.3 g/dL Low 3.5-5.7 [facility] Comment on above: Performed By: #### C BC, ESR #### [address] Albumin/Globulin [Mass ratio] 1.4 {ratio} Normal [facility] Comment on above: Performed By: #### C BC, ESR #### [address] ALP [Catalytic activity/Vol] 59 U/L Normal 34-104 [facility] Comment on above: Performed By: #### C BC, ESR #### [address] ALT [Catalytic activity/Vol] 17 U/L Normal 7-52 [facility] Comment on above: Performed By: #### C BC, ESR #### [address] Anion gap [Moles/Vol] 10.6 mmol/L Normal 6.0-15.0 Th e [facility] Comment on above: Performed By: #### C BC, ESR #### [address] AST [Catalytic activity/Vol] 16 U/L Normal 13-39 [facility] Comment on above: Performed By: #### C BC, ESR #### [address] Bilirubin [Mass/Vol] 0.5 mg/dL Normal 0.3-1.0 [facility] Comment on above: Performed By: #### C BC, ESR #### [address] Calcium [Mass/Vol] 8.2 mg/dL Low 8.6-10.3 [facility] Comment on above: Performed By: #### C BC, ESR #### [address] Chloride [Moles/Vol] 106 mmol/L Normal 98-107 [facility] Comment on above: Performed By: #### C BC, ESR #### [place] [address] [place] CO2 [Moles/Vol] 28.5 mmol/L Normal 21.0-31.0 [facility] Comment on above: Performed By: #### C BC, ESR #### [address] Creatinine [Mass/Vol] 1.61 mg/dL High 0.70-1.30 [facility] Comment on above: Performed By: #### C BC, ESR #### [address] Creatinine Clr Calc Pharmacy 54.02 Normal [facility] Comment on above: Performed By: #### C BC, ESR #### [place] [address] [place] GFR/1.73 sq M.predicted MDRD (S/P/Bld) [Vol rate/Area] 46.006 mL/min/{1.73_m2} Normal [facility] Comment on above: Performed By: #### C BC, ESR #### [address] Globulin (S) [Mass/Vol] 2.3 g/dL Normal T he [facility] Comment on above: Performed By: #### C BC, ESR #### [address] Glucose [Mass/Vol] 220 mg/dL High 70-100 [facility] Comment on above: Result Comment: [facility] Glucose Reference Range is dependent on time and content of last meal. Glucose of more than 200 mg/dL in a nonstressed, ambulatory subject supports the diagnosis of Diabetes Mellitus. ADA recommended reference range Performed By: #### C BC, ESR #### [address] Potassium [Moles/Vol] 4.1 mmol/L Normal 3.5-5.1 [facility] Comment on above: Performed By: #### C BC, ESR #### [address] Protein [Mass/Vol] 5.6 g/dL Low 6.4-8.9 [facility] Comment on above: Performed By: #### C BC, ESR #### [address] Sodium [Moles/Vol] 141 mmol/L Normal 136-145 [facility] Comment on above: Performed By: #### C BC, ESR #### [facility] [address] [place] [address] Urea nitrogen [Mass/Vol] 31 mg/dL High 7-25 [facility] Comment on above: Performed By: #### C BC, ESR #### [address] ECG 12 lead ECGon 10-14-2023 ECG 12 lead ECG [facility] [place] [address] [place] [address] Electrocardiograph Report Signed Patient: Italia Allen MR#: [id number] : 1955 Acct:[id number] Age/Sex: 68 / M ADM Date: 10/14/23 Loc: Room: [address] [place] [address] Type: DIS IN Attending Dr: Yovanny Rivera [...] previous ECGs available Confirmed by Diogenes Talley ([id number]) on 10/16/2023 10:19:42 PM Referred By: Electronically Signed By: Diogenes Talley Transcribed By: MUS Signed By Diogenes Talley MD 10/16/239 Normal [facility] Erythrocyte Sedimentation Ra clarice 10-14-2023 ESR (Bld) [Velocity] 22 mm/h High 0-19 [facility] Comment on above: Result Comment: PERF ORMED BY: [place] [address] [facility] LIAISON WOLFGANG JOHNSON M.D. Performed By: #### C BC, ESR #### [place] [id number] [facility] Erythrocyte sedimentation ra te by Photometric methodOrdered By: Alondra Gonzales on 10-14-2023 ESR Photometric method (Bld) [Velocity] 22 mm/hr High 0-19 [facility] Glucose Poct Glucometerson 0 10-14-2023 Glucose [Mass/Vol] 306 mg/dL Normal [facility] Comment on above: Result Comment: [facility] Glucose Reference Range is dependent on time and content of last meal. Glucose of more than 200 mg/dL in a nonstressed, ambulatory subject supports the diagnosis of Diabetes Mellitus. PERFORMED BY: [place] [address] [facility] LIAISON WOLFGANG JOHNSON M.D. Performed By: #### G LULS #### Point of Care testing , Glucose [Mass/Vol] 221 mg/dL Normal [facility] Comment on above: Result Comment: [facility] Glucose Reference Range is dependent on time and content of last meal. Glucose of more than 200 mg/dL in a nonstressed, ambulatory subject supports the diagnosis of Diabetes Mellitus. PERFORMED BY: [place] [address] [facility] LIAISON WOLFGANG JOHNSON M.D. Performed By: #### G LULS #### Point of Care testing , Magnesiumon 10-14-2023 Magnesium [Mass/Vol] 1.7 mg/dL Low 1.9-2.7 [facility] Comment on above: Performed By: #### C BC, ESR #### [place] [address] [place] Partial Thromboplastin Timeo n 10-14-2023 aPTT Coag (Bld) [Time] 35.7 s Normal 25.1-36.5 Th e [facility] Comment on above: Result Comment: A he matocrit value greater than 55% may lead to inaccurate results in coagulation testing. Patients having hematocrit values >55% require a special collection tube for coagulation studies. Please contact the laboratory at [phone] for redraw instructions. PERFORMED BY: [place] [address] [facility] LIAISON WOLFGANG JOHNSON M.D. Performed By: #### P TT #### [address] [address] [facility] aPTT Coag (Bld) [Time] 31.1 s Normal 25.1-36.5 Th e [facility] Comment on above: Result Comment: A he matocrit value greater than 55% may lead to inaccurate results in coagulation testing. Patients having hematocrit values >55% require a special collection tube for coagulation studies. Please contact the laboratory at [phone] for redraw instructions. PERFORMED BY: [place] [id number] [facility] LIAISON WOLFGANG JOHNSON M.D. Performed By: #### C BC, ESR #### [place] [id number] [facility] Prothrombin Time INRon 10-13 INR Coag (PPP) [Relative time] 1.1 {INR} Normal [facility] Comment on above: Result [...] Performed By: #### C BC, ESR #### [place] [id number] [facility] PT Coag (PPP) [Time] 13.0 s High 9.0-12.9 [facility] Comment on above: Result Comment: A he matocrit value greater than 55% may lead to inaccurate results in coagulation testing. Patients having hematocrit values >55% require a special collection tube for coagulation studies. Please contact the laboratory at [phone] for redraw instructions. Performed By: #### C BC, ESR #### [place] [id number] [place] Troponin I High Sensitivityo n 10-14-2023 Troponin I High Sensitivity 1682.8 pg/mL Off scale high 0.0-20.0 [facility] Comment on above: Result Comment: Crit ical Result : Called to and read back by: JAREK REESE at: 10/14/2023 12:42:52 by:ADRIENNE PERFORMED BY: [place] [address] [facility] LIAISON WOLFGANG JOHNSON M.D. Performed By: #### C BC, ESR #### [address] Troponin I.cardiac [Mass/vol ume] in Serum or Plasma by Detection limit <= 0.01 ng/Ordered By: Alondra Gonzales on 10-14-2023 Troponin I.cardiac DL <= 0.01 ng/mL [Mass/Vol] 1682.8 pg/mL High 0.0-20.0 [facility] Comment on above: Critical Result : Ca lled to and read back by: JAREK REESE at: 10/14/2023 12:42:52 by:ADRIENNE XR chest 1V portableon 10-13 XR chest 1V portable [facility] [place] [address] [place] [address] XRay Report Signed Patient: Italia Allen MR#: [id number] : 1955 Acct:[id number] Age/Sex: 68 / M ADM Date: 10/14/23 Loc: Room: [address] [place] [address] Type: ADM IN Attending Dr: Alondra Gonzales [...] Andrés Hardwick M.D.10/14/2023 12:13 PM Dictation Location: [facility]--13 Transcribed By: [facility] 10/14/23 1213 Dictated By: Andrés Hardwick II, MD 10/14/23 1212 Signed By: 10/14/23 1213 Normal [facility] Vital Signs Date Time Vital Sign Value Performing Clinician Facility 02-26-2024 11:07-0500 Blood Pressure Location LILLIAM PHAM [facility] 02-26-2024 11:07-0500 Body temperature 98.6 [degF] LILLIAM ANKIT [facility] 02-26-2024 11:07-0500 Diastolic blood pressure 55 mm[Hg] LILLIAM ANKIT [facility] 02-26-2024 11:07-0500 Heart rate 119 /min LILLIAM ANKIT [facility] 02-26-2024 11:07-0500 Respiratory rate 18 /min LILLIAM ANKIT [facility] 02-26-2024 11:07-0500 Systolic blood pressure 99 mm[Hg] LILLIAM ANKIT [facility] 12-27-2023 15:12-0500 Body temperature 97.5 [degF] Foster Nolan MD Work Phone: [facility] 12-27-2023 15:12-0500 Diastolic blood pressure 68 mm[Hg] Foster Nolan MD Work Phone: [facility] 12-27-2023 15:12-0500 Heart rate 63 /min Foster Nolan MD Work Phone: [facility] 12-27-2023 15:12-0500 Respiratory rate 20 /min Foster Nolan MD Work Phone: [facility] 12-27-2023 15:12-0500 SaO2% (BldA) [Mass fraction] 98 % Foster Nolan MD Work Phone: [facility] 12-27-2023 15:12-0500 Systolic blood pressure 134 mm[Hg] Foster Nolan MD Work Phone: [facility] 12-23-2023 06:06-0500 Body mass index (BMI) [Ratio] 35.52 kg/m2 Foster Nolan MD Work Phone: [facility] 12-23-2023 06:06-0500 Body weight 112.3 kg Foster Nolan MD Work Phone: [facility] 12-22-2023 13:00-0400 Body height 177.8 cm Foster Nolan MD Work Phone: [facility] 11-29-2023 13:55-0400 Body height 177.8 cm Fatemeh Coleman DPM Work Phone: [facility] 11-29-2023 13:55-0400 Body mass index (BMI) [Ratio] 35.87 kg/m2 Fatemeh Coleman DPM Work Phone: [facility] 11-29-2023 13:55-0400 Body weight 113.4 kg Fatemeh Coleman DPM Work Phone: [facility] 11-22-2023 15:42-0400 Blood Pressure Location Marine Orzech [facility] 11-22-2023 15:42-0400 Diastolic blood pressure 60 mm[Hg] Marine Orzech [facility] 11-22-2023 15:42-0400 Heart rate 76 /min Marine Orzech [facility] 11-22-2023 15:42-0400 Respiratory rate 16 /min Marine Grier [facility] 11-22-2023 15:42-0400 Systolic blood pressure 110 mm[Hg] Marine Orzech [facility] 11-13-2023 11:12-0400 Diastolic blood pressure 73 mm[Hg] Sahil Wiley MD Work Phone: [facility] 11-13-2023 11:12-0400 Heart rate 72 /min Sahil Wiley MD Work Phone: [facility] 11-13-2023 11:12-0400 Systolic blood pressure 153 mm[Hg] Sahil Wiley MD Work Phone: [facility] 11-13-2023 11:11-0400 Body height 177.8 cm Sahil Wiley MD Work Phone: [facility] 11-13-2023 11:11-0400 Body mass index (BMI) [Ratio] 36.16 kg/m2 Sahil Wiley MD Work Phone: [facility] 11-13-2023 11:11-0400 Body weight 114.31 kg Sahil Wiley MD Work Phone: [facility] 11-13-2023 11:11-0400 SaO2% (BldA) [Mass fraction] 90 % Sahil Wiley MD Work Phone: [facility] 11-02-2023 09:53-0400 Body height 177.8 cm Ann Henao MD Work Phone: [facility] 11-02-2023 09:53-0400 Body mass index (BMI) [Ratio] 36.16 kg/m2 Ann Henao MD Work Phone: [facility] 11-02-2023 09:53-0400 Body weight 114.31 kg Ann Henao MD Work Phone: [facility] 11-02-2023 09:53-0400 Diastolic blood pressure 76 mm[Hg] Ann Henao MD Work Phone: [facility] 11-02-2023 09:53-0400 Heart rate 78 /min Ann Henao MD Work Phone: [facility] 11-02-2023 09:53-0400 Systolic blood pressure 134 mm[Hg] Ann Henao MD Work Phone: [facility] 10-24-2023 07:22-0400 Body temperature 98.4 [degF] Inderjit Mejia MD PhD Work Phone: [facility] 10-24-2023 07:22-0400 Diastolic blood pressure 55 mm[Hg] Inderjit Mejia MD PhD Work Phone: [facility] 10-24-2023 07:22-0400 Heart rate 72 /min Inderjit Mejia MD PhD Work Phone: [facility] 10-24-2023 07:22-0400 SaO2% (BldA) [Mass fraction] 95 % Inderjit Mejia MD PhD Work Phone: [facility] 10-24-2023 07:22-0400 Systolic blood pressure 96 mm[Hg] Inderjit Mejia MD PhD Work Phone: [facility] 10-24-2023 05:23-0400 Body mass index (BMI) [Ratio] 35.11 kg/m2 Inderjit Mejia MD PhD Work Phone: [facility] 10-24-2023 05:23-0400 Body weight 111 kg Inderjit Mejia MD PhD Work Phone: [facility] 10-23-2023 23:30-0400 Respiratory rate 20 /min Inderjit Mejia MD PhD Work Phone: [facility] 10-16-2023 15:59-0400 Body temperature 37.0 Inderjit Mejia MD PhD Work Phone: [facility] Comment on above: NOTE: Patient Results are Not Corrected for Temperature 10-16-2023 15:59-0400 SaO2% (BldA) [Mass fraction] 95 % Inderjit Mejia MD PhD Work Phone: [facility] 10-16-2023 15:57-0400 Body temperature 37.0 degrees Celsius [facility] Comment on above: Result Comment: NOTE: Patient Results ar e Not Corrected for Temperature Performed By: #### 1 [id number] #### ERICA Tam ([id number]) [facility] ([facility]) [address] [place] [address] 10-16-2023 15:57-0400 SaO2% (BldA) [Mass fraction] 95 % [facility] Comment on above: Performed By: #### [id number] #### ERICA Tam ([id number]) [facility] ([facility]) [address] [place] [address] 10-16-2023 00:51-0400 Body height 177.8 cm Inderjit Mejia MD PhD Work Phone: [facility] 10-15-2023 23:16-0400 Body temperature 98 [degF] [facility] 10-15-2023 23:16-0400 Diastolic blood pressure 73 mm[Hg] [facility] 10-15-2023 23:16-0400 Heart rate 104 /min [facility] 10-15-2023 23:16-0400 Respiratory rate 18 /min [facility] 10-15-2023 23:16-0400 SaO2% (BldA) [Mass fraction] 92 % [facility] 10-15-2023 23:16-0400 Systolic blood pressure 153 mm[Hg] [facility] 10-15-2023 20:00-0400 Inhaled oxygen flow rate 2 L/min [facility] 10-15-2023 14:51-0400 Body height 177.8 cm [facility] 10-15-2023 06:00-0400 Body weight 112.2 kg [facility] Encounters Encounter Date Encounter Type Care Provider Facility Start: 02-26-2024 End: 02-26-2024 ambulatory LILLIAMLISA PHAM Facility:[facility] Start: 02-26-2024 End: 02-26-2024 Patient encounter procedure [facility] PH[facility] Start: 02-21-2024 End: 02-21-2024 ambulatory LILLIAM PHAM Facility:[facility] Start: 02-21-2024 End: 02-21-2024 Patient encounter procedure [facility] Start: 02-19-2024 End: 02-19-2024 ambulatory LILLIAM PHAM Facility:[facility] Start: 02-19-2024 End: 02-19-2024 Patient encounter procedure LILLIAM PHAM [facility] Start: 12-22-2023 End: 12-27-2023 Evaluation and management of inpatient Foster Nolan MD Work Phone: [place] [id number] Comment on above: NSTEMI (non-ST eleva zaid [...] loss Start: 12-04-2023 End: 12-04-2023 ambulatory Marine X Ornickch Facility: [place] Start: 12-04-2023 End: 12-04-2023 Patient encounter procedure Marine X Ornickch [facility] [place] Start: 12-03-2023 ambulatory Marine Grier Facility: [facility] Start: 11-29-2023 End: 11-29-2023 Bamboo flowsheet Fatemeh Coleman DPM Work Phone: [facility] Start: 11-29-2023 End: 11-29-2023 Bamboo flowsheet Fatemeh Coleman DPM Work Phone: [facility] Start: 11-29-2023 End: 11-29-2023 ambulatory FATEMEH COLEMAN Not Available Start: 11-29-2023 End: 11-29-2023 Office outpatient new 30 minutes Fatemeh Coleman DPM Work Phone: [facility] Comment on above: Dermatophytosis of n ail (Primary Dx); Dystrophic nail; Angiopathy, diabetic ([facility]/HCC); Diabetic polyneuropathy associated with type 2 diabetes mellitus ([facility]/HCC) Start: 11-22-2023 End: 11-22-2023 ambulatory Marine X Cherrie Facility:[facility] [place] Start: 11-22-2023 End: 11-22-2023 Patient encounter procedure Marine X Ornickch [facility] Start: 11-13-2023 End: 11-13-2023 ambulatory SAHIL WILEY [facility] Start: 11-13-2023 End: 11-13-2023 Office outpatient new 45 minutes Sahil Wiley MD Work Phone: [facility] Comment on above: Chronic low back batool n without sciatica, unspecified back pain laterality (Primary Dx); Primary hypertension; Edema, unspecified type Start: 11-02-2023 End: 11-02-2023 Transitional care manage srvc 14 day discharge Ann Henao MD Work Phone: [facility] Comment on above: CAD, multiple vessel (Primary Dx); Primary hypertension; Chronic systolic heart failure (Multi); BMI 36.0-36.9,adult; Stage 3a chronic kidney disease (Multi); Right carotid artery occlusion; Edema, unspecified type Start: 11-02-2023 End: 11-02-2023 ambulatory [facility] Start: 10-15-2023 End: 10-24-2023 Encounter for preprocedural cardiovascular examination [facility] Start: 10-15-2023 End: 10-24-2023 Evaluation and management of inpatient [facility] Work Phone: Comment on above: CAD, multiple vessel (Primary Dx); Acute on chronic systolic (congestive) heart failure (Multi); NSTEMI (non-ST elevated myocardial infarction) (Multi); Shortness of breath; Other disorders of arteries, arterioles and capillaries in diseases classified elsewhere (CMS-HCC); Peripheral vascular disease, unspecified (CMS-HCC); Encounter for preprocedural cardiovascular examination; Other chronic pain; Type 2 diabetes mellitus without complication, with long-term current use of insulin (Multi) Start: 10-15-2023 End: 10-24-2023 Patient encounter status Inderjit Mejia MD PhD Work Phone: [facility] Work Phone: Start: 10-14-2023 End: 10-15-2023 Evaluation and management of inpatient [facility] Work Phone: Procedures Date Procedure Procedure Detail Performing Clinician Start: 12-27-2023 Glucose quantitative blood xcpt reagent strip Sherri Armstrong MD Work Phone: Start: 12-27-2023 Glucose quantitative blood xcpt reagent strip Sherri Armstorng MD Work Phone: Start: 12-26-2023 End: 12-26-2023 Renal function panel Rafi Waller [facility] Work Phone: Start: 12-26-2023 Ecg routine ecg w/le ast 12 lds trcg only w/o i&r Rafi Waller [employer] S[employer] DIRECTOR-[facility] Work Phone: Start: 12-26-2023 Glucose quantitative blood xcpt reagent strip Sherri Armstrong MD Work Phone: Start: 12-26-2023 Egd transoral contro l bleeding any method Bela Rubalcava MD Work Phone: Start: 12-26-2023 PULSE OXIMETRY, SPOT Abran Waller ELEMENTARY SCHOOL DIRECTOR-[facility] Work Phone: Start: 12-26-2023 Glucose quantitative blood xcpt reagent strip Sherri Armstrong MD Work Phone: Start: 12-26-2023 Glucose quantitative blood xcpt reagent strip Sherri Armstrong MD Work Phone: Start: 12-26-2023 PULSE OXIMETRY, SPOT Abran Waller ELEMENTARY SCHOOL DIRECTOR-[facility] Work Phone: Start: 12-26-2023 PULSE OXIMETRY, SPOT Abran Waller [employer]LE[employer] SCHOOL DIRECTOR-[facility] Work Phone: Start: 12-26-2023 Glucose quantitative blood xcpt reagent strip Sherri Armstrong MD Work Phone: Start: 12-26-2023 PULSE OXIMETRY, SPOT Abrna Waller ELEMENTARY SCHOOL DIRECTOR-[facility] Work Phone: Start: 12-26-2023 PULSE OXIMETRY, ALICE Waller ELEMENTARY SCHOOL DIRECTOR-[facility] Work Phone: Start: 12-25-2023 Glucose quantitative blood xcpt reagent strip Sherri Armstrong MD Work Phone: Start: 12-25-2023 PULSE OXIMETRY, ALICE Waller ELE[employer] SCHOOL DIRECTOR-[facility] Work Phone: Start: 12-25-2023 End: 12-25-2023 Renal function panel Rafi Waller ELEMENTARY SCHOOL DIRECTOR -[employer] Work Phone: Start: 12-25-2023 PULSE OXIMETRY, SPOT bAran Waller [employer] SCHOOL DIRECTOR-[employer] Work Phone: Start: 12-25-2023 Glucose quantitative blood xcpt reagent strip Sherri Armstrong MD Work Phone: Start: 12-25-2023 PULSE OXIMETRY, SPOT Abran Waller [employer]LE[employer] S[employer] DIRECTOR-[employer] Work Phone: Start: 12-25-2023 Glucose quantitative blood xcpt reagent strip Sherri Armstrong MD Work Phone: Start: 12-25-2023 PULSE OXIMETRY, SPOT Abran Waller [employer] SCHOOL DIRECTOR-[employer] Work Phone: Start: 12-25-2023 Glucose quantitative blood xcpt reagent strip Sherri Armstrong MD Work Phone: Start: 12-25-2023 PULSE OXIMETRY, SPOT Abran Waller [employer] S[employer] DIRECTOR-[employer] Work Phone: Start: 12-25-2023 PULSE OXIMETRY, ALICE Waller [employer] S[employer]OL DIRECTOR-[employer] Work Phone: Start: 12-24-2023 Glucose quantitative blood xcpt reagent strip Sherri Armstrong MD Work Phone: Start: 12-24-2023 Renal function panel Abran Waller [employer] SCHOOL DIRECTOR-[employer] Work Phone: Start: 12-24-2023 PULSE OXIMETRY, ALICE Waller [employer] SCHOOL DIRECTOR-[employer] Work Phone: Start: 12-24-2023 Glucose quantitative blood xcpt reagent strip Sherri Armstrong MD Work Phone: Start: 12-24-2023 PULSE OXIMETRY, ALICE Waller [employer] S[employer]OL DIRECTOR-[employer] Work Phone: Start: 12-24-2023 Glucose quantitative blood xcpt reagent strip Sherri Armstrong MD Work Phone: Start: 12-24-2023 PULSE OXIMETRY, ALICE Waller ELE[employer]ARY SCHOOL DIRECTOR-[employer] Work Phone: Start: 12-24-2023 Echo tthrc r-t 2d w/ wom-mode compl spec&colr d Rafi Waller ELEMENTARY SCHOOL DIRECTOR-[employer] Work Phone: Start: 12-24-2023 Glucose quantitative blood xcpt reagent strip Sherri Armstrong MD Work Phone: Start: 12-24-2023 PULSE OXIMETRY, SPOT Abran Waller [employer] SCHOOL DIRECTOR-[employer] Work Phone: Start: 12-24-2023 Heparin assay Foster Nolan MD Work Phone: Start: 12-24-2023 PULSE OXIMETRY, SPOT Abran Waller ELE[employer] SCHOOL DIRECTOR-[employer] Work Phone: Start: 12-24-2023 PULSE OXIMETRY, SPOT Abran Waller [employer]LE[employer] SCHOOL DIRECTOR-[employer] Work Phone: Start: 12-23-2023 Blood typing serolog ic rh (d) Rafi Waller [employer]LE[employer] SCHOOL DIRECTOR-[employer] Work Phone: Start: 12-23-2023 End: 12-23-2023 Renal function panel Rafi Waller [employer]LE[employer] SCHOOL DIRECTOR -[employer] Work Phone: Start: 12-23-2023 PULSE OXIMETRY, ALICE Waller ELE[employer] SCHOOL DIRECTOR-[employer] Work Phone: Start: 12-23-2023 Glucose quantitative blood xcpt reagent strip Foster Nolan MD Work Phone: Start: 12-23-2023 PULSE OXIMETRY, ALICE Waller [employer] S[employer]OL DIRECTOR-[employer] Work Phone: Start: 12-23-2023 Glucose quantitative blood xcpt reagent strip Foster Nolan MD Work Phone: Start: 12-23-2023 PULSE OXIMETRY, ALICE Waller [employer] SCHOOL DIRECTOR-[employer] Work Phone: Start: 12-23-2023 End: 12-23-2023 Cyanocobalamin vitamin b-12 Rafi lagunas [employer]LE[employer] SCHOOL DIRECTOR-[employer] Work Phone: Start: 12-23-2023 PULSE OXIMETRY, ALICE Waller ELE[employer] SCHOOL DIRECTOR-[employer] Work Phone: Start: 12-23-2023 Heparin assay Foster Nolan MD Work Phone: Start: 12-23-2023 PULSE OXIMETRY, ALICE Waller ELE[employer] SCHOOL DIRECTOR-[employer] Work Phone: Start: 12-23-2023 Heparin assay Foster Nolan MD Work Phone: Start: 12-23-2023 PULSE OXIMETRY, ALICE Waller ELE[employer] SCHOOL DIRECTOR-[employer] Work Phone: Start: 12-22-2023 Glucose quantitative blood xcpt reagent strip Foster Nolan MD Work Phone: Start: 12-22-2023 Glucose quantitative blood xcpt reagent strip Foster Nolan MD Work Phone: Start: 12-22-2023 PULSE OXIMETRY, ALICE Waller ELE[employer] SCHOOL DIRECTOR-[employer] Work Phone: Start: 12-22-2023 End: 12-22-2023 Assay of ferritin Rafi Waller E[employer] SCHOOL DIRECTOR- [employer] Work Phone: Start: 12-22-2023 Lipid panel Rafi alejandre ELEMENTARY SCHOOL DIRECTOR-[employer] Work Phone: Start: 12-22-2023 PULSE OXIMETRY, ALICE Waller [employer]LE[employer] SCHOOL DIRECTOR-[employer] Work Phone: Start: 12-22-2023 Glucose quantitative blood xcpt reagent strip Foster Nolan MD Work Phone: Start: 12-22-2023 Radiologic exam ches t 2 views Rafi Waller [employer] SCHOOL DIRECTOR-[employer] Work Phone: Start: 12-22-2023 Comprehensive metabo lic panel Rafi Waller [employer] SCHOOL DIRECTOR-[employer] Work Phone: Start: 12-22-2023 Ecg routine ecg w/le ast 12 lds trcg only w/o i&r Rafi Waller [employer] SCHOOL DIRECTOR-[employer] Work Phone: Start: 12-22-2023 End: 12-22-2023 PULSE OXIMETRY, SPOT Rafi Waller [employer] SCHOOL DIRECTOR -[employer] Work Phone: Start: 12-22-2023 Lipid 1996 panel - S teodoro or Plasma Foster Nolan MD Work Phone: Start: 10-24-2023 Renal function panel Mimi Cabrera APRN-[employer], DNP Work Phone: Start: 10-24-2023 Glucose quantitative blood xcpt reagent strip Melly Benítez MD Work Phone: Start: 10-23-2023 Glucose quantitative blood xcpt reagent strip Melly Benítez MD Work Phone: Start: 10-23-2023 Glucose quantitative blood xcpt reagent strip Melly Benítez MD Work Phone: Start: 10-23-2023 End: 10-23-2023 Renal function panel Italia Cabrera APRN-[employer], DNP Work Phone: Start: 10-23-2023 Glucose quantitative blood xcpt reagent strip Mario Heck MD Work Phone: Start: 10-22-2023 Glucose quantitative blood xcpt reagent strip Mario Heck MD Work Phone: Start: 10-22-2023 Glucose quantitative blood xcpt reagent strip Mario Heck MD Work Phone: Start: 10-22-2023 End: 10-22-2023 Renal function panel Italia Cabrera APRN-[employer], DNP Work Phone: Start: 10-22-2023 Glucose quantitative [...] End: 10-20-2023 Renal function panel Rafi Waller ELE[employer] SCHOOL DIRECTOR -[employer] Work Phone: Start: 10-20-2023 Glucose quantitative blood [...] End: 10-18-2023 Renal function panel Rafi Waller ELE[employer] SCHOOL DIRECTOR -[employer] Work Phone: Start: 10-18-2023 Glucose quantitative blood xcpt reagent strip Mario Heck MD Work Phone: Start: 10-18-2023 Glucose quantitative blood xcpt reagent strip Mario Heck MD Work Phone: Start: 10-18-2023 End: 10-18-2023 Heparin assay Jarrell Dale MD Work Phone: Start: 10-17-2023 Glucose quantitative blood xcpt reagent strip Mario Heck MD Work Phone: Start: 10-17-2023 End: 10-17-2023 Renal function panel Kimmie Sinclair ELEMENTARY SCHOOL DIRECTOR-[employer] Work Phone: Start: 10-17-2023 Glucose quantitative blood xcpt reagent strip Mario Heck MD Work Phone: Start: 10-17-2023 Duplex scan extracra nial art compl bi study Ru Elena PA-C Work Phone: Start: 10-17-2023 End: 10-17-2023 Heparin assay Jarrell Dale MD Work Phone: Start: 10-17-2023 Dup-scan xtr veins c omplete bilateral study Ru Elena PA-C Work Phone: Start: 10-17-2023 Non-invas physiologi c std extremity art 2 level Ru Elena PA-C Work Phone: Start: 10-17-2023 End: 10-17-2023 Heparin assay Jarrell Dale MD Work Phone: Start: 10-16-2023 Heparin assay Jarrell Dale MD Work Phone: Start: 10-16-2023 Glucose quantitative blood xcpt reagent strip Mario Heck MD Work Phone: Start: 10-16-2023 End: 10-16-2023 Renal function panel Kimmie Sinclair ELEMENTARY SCHOOL DIRECTOR-[employer] Work Phone: Start: 10-16-2023 End: 10-16-2023 Glucose quantitative blood xcpt reagent strip Mario Heck MD Work Phone: Start: 10-16-2023 Spmtry w/vc expirato ry génesis w/wo mxml vol vntj Ru Coulterea PA-C Work Phone: Start: 10-16-2023 Heparin assay Jarrell Dale MD Work Phone: Start: 10-16-2023 Radiologic exam ches t 2 views Catia L Mogus PA-C Work Phone: Start: 10-16-2023 Glucose quantitative blood xcpt reagent strip Mario Heck MD Work Phone: Start: 10-16-2023 Cul prsmptv pthgnc o rganism scrn w/[place] estimj Ru Mina Cuate PA-C Work Phone: Start: 10-16-2023 Natriuretic peptide Tra ci L Mogus PA-C Work Phone: Start: 10-16-2023 Ecg routine ecg w/le ast 12 lds trcg only w/o i&r Kimmie Butterfieldb ELEMENTARY SCHOOL DIRECTOR-[employer] Work Phone: Start: 10-16-2023 EXTRA URINE FITCH TUBE G race [place] ELEMENTARY SCHOOL DIRECTOR-[employer] Work Phone: Start: 10-16-2023 Urinalysis complete W Reflex Culture panel - Urine Kimmie Sinclair ELEMENTARY SCHOOL DIRECTOR-[employer] Work Phone: Start: 10-16-2023 Urnls dip stick/tabl et reagent auto microscopy Kimmie Butterfieldb ELEMENTARY SCHOOL DIRECTOR-[employer] Work Phone: Start: 10-16-2023 Lipid 1996 panel [...] Detail Author Start: 12-25-2024 Creatinine measurement [place]inine [facility] Start: 12-25-2024 Potassium measurement Potassium [facility] Start: 12-23-2024 Echocardiography Echocardiogram [facility] Start: 12-21-2024 Lipid panel Lipid [facility] Start: 10-23-2024 Creatinine measurement Creatinine [facility] Start: 10-23-2024 Potassium measurement Potassium [facility] Start: 10-15-2024 Lipid panel Lipid Panel [facility] Start: 10-13-2024 Echocardiography Echocardiogram [facility] Start: 03-23-2024 Hemoglobin A1c measurement Gabriela cb: Hemoglobin A1C [facility] Start: 03-18-2024 End: 03-18-2024 Patient encounter procedure 03/18/2024 3:20 PM EST Office Visit [facility] [address] [id number] Ann Henao MD [facility] [facility] [place] [address] [facility] Start: 03-13-2024 End: 03-13-2024 Patient encounter procedure 03/13/2024 2:15 PM EST Procedure Visit [facility] [address] [place] [phone] Fatemeh Coleman DPM [address] [place] [address] [facility] Start: 01-16-2024 Hemoglobin A1c measurement Gabriela betes: Hemoglobin A1C [facility] Start: 01-01-2024 End: 01-01-2024 Patient encounter procedure [facility] Start: 12-06-2023 End: 12-06-2023 Patient encounter procedure 12/06/2023 10:40 AM EDT Office Visit [facility] [address] [facility] [address] [place] [phone] Rno Sharma MD [address] [facility] [address] [place], [place] [id number] [facility] Start: 11-27-2023 End: 11-12-2024 Magnesium [Mass/volume] in Serum or Plasma Magnesium Lab Routine Edema, unspecified type Expected: 11/27/2023 (Approximate), Expires: 11/12/2024 [facility] Work Phone: Comment on above: Expected: 11/27/2023 (Approximate), Expires: 11/12/2024 Start: 11-27-2023 End: 11-12-2024 Renal function 2000 panel - Serum or Plasma Renal function panel Lab Routine Edema, unspecified type Expected: 11/27/2023 (Approximate), Expires: 11/12/2024 [facility] Work Phone: Comment on above: Expected: 11/27/2023 (Approximate), Expires: 11/12/2024 Start: 11-13-2023 End: 11-13-2023 Patient encounter procedure 11/13/2023 11:00 AM EDT Office Visit [facility] [address] [facility] [address] [place] [phone] [place] [address] [place] [address] [facility] Start: 10-21-2023 COVID-19 Vaccine () COVID-19 Vaccine () [facility] Start: 10-21-2023 COVID-19 Vaccine ( season) COVID-19 Vaccine ( season) [facility] Start: 10-21-2023 Influenza vaccination Influenza Vacc ine (#1) [facility] Start: 10-15-2023 [facility] Start: 10-15-2023 [facility] Start: 10-14-2023 [facility] Start: 10-14-2023 Hospital admission [facility] Start: 10-14-2023 Referral to executive receptionist [facility] Start: 08-02-2019 Pneumococcal Vaccine : 65+ Years (2 of 2 - PCV) Pneumococcal Vaccine: 65+ Years (2 of 2 - PCV) [facility] Start: 11-30-2018 Pneumococcal Vaccine : 65+ Years (2 of 2 - PCV) Pneumococcal Vaccine: 65+ Years (2 of 2 - PCV) [facility] Start: 2014 RSV High Risk: (Elde rly (60+) or Population) (1 - Risk 60-74 years 1-dose series) RSV High Risk: (Elderly (60+) or Population) (1 - Risk 60-74 years 1-dose series) [facility] Start: 2014 RSV patient s and/or patients aged 60+ years (1 - 1-dose 60+ series) RSV patients and/or patients aged 60+ years (1 - 1-dose 60+ series) [facility] Start: 2004 Zoster Vaccines (1 of 2) Zoste r Vaccines (1 of 2) [facility] Start: 1976 DTaP/Tdap/Td Vaccine s (1 - Tdap) DTaP/Tdap/Td Vaccines (1 - Tdap) [facility] Start: 1973 Urine screening for protein Diabetes: Urine Protein Screening [facility] Start: 1972 Hepatitis C screening Hepatitis C Sc reening [facility] Start: 1964 Glaucoma screening Diabetes: R etinopathy Screening [facility] Start: 1954 Echocardiography Echocardiogram [facility] Start: 1954 Medicare Annual Well ness Visit Medicare Annual Wellness Visit (AWV) [facility] Start: 1954 Screening for malign ant neoplasm of colon [facility] End: 10-19-2023 Cardiac catheterization study [facility] Work Phone: Comment on above: Once for 1 Occurrenc es starting 10/19/2023 until 10/19/2023 CBC panel - Blood by Automated count CBC Lab Routine Evening draw (Lab) until discontinued starting 12/23/2023, 4 completed [facility] Work Phone: Comment on above: Evening draw (Lab) u ntil discontinued starting 12/23/2023, 4 completed Colonoscopy study Colonoscopy Di agnostic Endoscopy Routine Antiplatelet or antithrombotic long-term use Once as needed for 1 Occurrences starting 12/25/2023 [facility] Work Phone: Comment on above: Once as needed for 1 Occurrences starting 12/25/2023 Colonoscopy study Colonoscopy Di agnostic Endoscopy Routine Antiplatelet or antithrombotic long-term use 12/26/2023 5:44 PM EST [facility] Work Phone: End: 10-23-2023 Determination of physical activity tolerance Cardiac rehab evaluation Card Rehab Routine Once for 1 Occurrences starting 10/23/2023 until 10/23/2023 [facility] Work Phone: Comment on above: Once for 1 Occurrenc es starting 10/23/2023 until 10/23/2023 ECG 12 Lead [facility] Work Phone: Electrocardiogram, 1 2-lead PRN ACS symptoms Electrocardiogram, 12-lead PRN ACS symptoms ECG Routine As needed until discontinued starting 12/22/2023, 1 completed [facility] Work Phone: Comment on above: As needed until disc ontinued starting 12/22/2023, 1 completed Electrocardiogram, 1 2-lead PRN ACS symptoms Electrocardiogram, 12-lead PRN ACS symptoms ECG Routine 12/26/2023 7:10 PM EST [facility] Work Phone: Electrocardiogram, 1 2-lead PRN ACS symptoms Electrocardiogram, 12-lead PRN ACS symptoms ECG Routine As needed until discontinued starting 10/16/2023 [facility] Work Phone: Comment on above: As needed until disc ontinued starting 10/16/2023 End: 12-25-2023 Glucose [Mass/volume] in Serum or Plasma POCT Glucose Point of Care Testing - Docked Device Routine 4 times daily before meals and at bedtime for 3 Days starting 12/22/2023 until 12/25/2023, 11 completed [facility] Work Phone: Comment on above: 4 times daily before meals and at bedtime for 3 Days starting 12/22/2023 until 12/25/2023, 11 completed Glucose [Mass/volume ] in Serum or Plasma POCT Glucose Point of Care Testing - Docked Device Routine As needed (Lab) until discontinued starting 10/20/2023 [facility] Work Phone: Comment on above: As needed (Lab) unti l discontinued starting 10/20/2023 Magnesium [Mass/volu me] in Serum or Plasma Magnesium Lab Routine Evening draw (Lab) until discontinued starting 12/23/2023, 4 completed [facility] Work Phone: Comment on above: Evening draw (Lab) u ntil discontinued starting 12/23/2023, 4 completed Patient Education Heart Failure, Adult (DC) [facility] Work Phone: Pulse oximetry, spot Pulse oxime try, spot Respiratory Care Routine Every 4 hours until discontinued starting 12/22/2023, 31 completed [facility] Work Phone: Comment on above: Every 4 hours until discontinued starting 12/22/2023, 31 completed Renal function 2000 panel - Serum or Plasma Renal Function Panel Lab Routine Evening draw (Lab) until discontinued starting 12/23/2023, 4 completed [facility] Work Phone: Comment on above: Evening draw (Lab) u ntil discontinued starting 12/23/2023, 4 completed Immunizations Immunization Date Immunization Notes Care Provider Fa cili 12-10-2023 influenza virus vacc ine, H5N1, A/[place] (national stockpile) Foster Nolan MD Work Phone: [facility] Work Phone: 12-10-2023 influenza virus vacc ine, unspecified formulation LILLIAM ANKIT [facility] 12-10-2023 Seasonal trivalent influenza vaccine, adjuvanted, preservative free Foster Nolan MD Work Phone: [facility] Work Phone: 03-05-2021 Influenza, injectabl e, Madin Baird Canine Kidney, preservative free, quadrivalent Sahil Wiley MD Work Phone: [facility] Work Phone: 03-05-2021 SARS-CoV-2 (COVID-19 ) mRNA BNT-162b2 vax LILLIAM ANKIT [facility] 03-05-2021 influenza virus vacc ine, unspecified formulation Inderjit Mejia MD PhD Work Phone: [facility] 07-15-2020 SARS-CoV-2 (COVID-19 ) mRNA BNT-162b2 vax LILLIAM ANKIT [facility] 06-22-2020 SARS-CoV-2 (COVID-19 ) mRNA BNT-162b2 vax LILLIAM ANKIT [facility] 12-21-2019 influenza virus vacc ine, unspecified formulation LILLIAM ANKIT [facility] 12-21-2019 influenza, injectabl e, quadrivalent, contains preservative Sahil Wiley MD Work Phone: [facility] Work Phone: 11-30-2017 influenza virus vacc ine, unspecified formulation LILLIAM ANKIT [facility] 11-30-2017 Influenza, injectabl e, Madin Baird Canine Kidney, preservative free, quadrivalent Sahil Wiley MD Work Phone: [facility] Work Phone: 11-30-2017 pneumococcal polysaccharide vaccine, 23 valent Sahil Wiley MD Work Phone: [facility] Work Phone: Payers Date Payer Category Payer Medicare [id number] 2023 Self-pay 2020 Medicare [id number] 2020 Medicare [id number] 1954 Unknown [id number] 2.16.8 [id number] 1954 Unknown [id number] 2.16.84 [id number] 1954 Unknown [id number] 2.16.8 [id number] 1954 Unknown [id number] 2.16.8 [id number] 1954 Unknown [id number] 2.16.8 [id number] 1954 Unknown [id number] 2.16.8 [id number] 1954 Unknown [id number] 2.16.8 [id number] 1954 Unknown [id number] 2.16.8 [id number] 1954 Unknown [id number] 2.16.8 [id number] 1954 Unknown [id number] 2.16.8 [id number] 1954 Unknown [id number] 2.16.8 [id number] Unknown [employer] [id number] Unknown [id number] 2.16.8 [id number] Social History Date Type Detail Facility Start: 10-14-2023 End: 02-26-2024 Tobacco smoking status NHIS Never smoked tobacco (finding) [facility] Start: 1955 Sex Assigned At Male [facility] Tobacco smoking status Ex-smoker (finding ) [facility] Tobacco smoking status Never [facility] Start: 10-16-2023 End: 11-29-2023 Sex Assigned At Male [facility] Start: 1955 Sex assigned at Not on file [facility] Work Phone: Start: 10-15-2023 End: 11-29-2023 Tobacco use and exposure Smokeless tobacco non-user [facility] Work Phone: Start: 11-29-2023 Alcoholic beverage intake Ex-drinker (finding) [facility] Start: 10-16-2023 End: 11-29-2023 History of Social function [facility] Start: 11-13-2023 End: 12-22-2023 Alcoholic beverage intake Current drinker of alcohol (finding) [facility] Work Phone: Has the [employer], [employer], [employer], or water [employer] threatened to shut off services in your home in past 12Mo No [facility] How often to you hav e a drink containing alcohol? Never [facility] Work Phone: (I/We) worried wheth er (my/our) food would run out before (I/we) got money to buy more. Never true [facility] [facility] Work Phone: Start: 11-02-2023 Alcohol Comment social [facility] Work Phone: Start: 10-05-2023 End: 12-23-2023 Exposure to SARS-CoV-2 (event) Not sure [facility] Work Phone: How often to you hav e a drink containing alcohol? Monthly or less [facility] Work Phone: How many standard drinks containing alcohol do you have on a typical day? 1 or 2 [facility] Work Phone: How hard is it for y ou to pay for the very basics like food, housing, medical care, and heating Not very hard [facility] Medical Equipment Procedure Code Equipment Code Equipment Origin al Text Equipment Identifier Dates Stent, Chiloquin Fron tier Lisy, 3.50 X 15rx - [id number] Start: 10-23-2023 Stent, Synergy X d, Mr Us, 3.00 X 48mm - [id number] Start: 10-23-2023 Goals Date Patient Goal Desired Activity /State Functional Status Date Assessment Result Facility 02-26-2024 Functional Status N/A [facility] 11-22-2023 Functional Status N/A [facility] 10-16-2023 Are you deaf, or do you have serious difficulty hearing No 10/16/2023 8:24 AM Pablo Leary, RN No [facility] 10-16-2023 Are you blind, or do you have serious difficulty seeing, even when wearing glasses No 10/16/2023 8:24 AM Pablo Leary, RN No [facility] Work Phone: 10-16-2023 Do you have serious difficulty walking or climbing stairs No 10/16/2023 8:24 AM Pablo Leary, SWAPNIL No [facility] Work Phone: 10-16-2023 Do you have difficul ty dressing or bathing No 10/16/2023 8:24 AM Pablo Leary, RN No [facility] Work Phone: 10-16-2023 Because of a physica l, mental, or emotional condition, do you have difficulty doing errands alone such as visiting a physician's office or shopping No 10/16/2023 8:24 AM Pablo Leary, RN No [facility] Work Phone: 10-15-2023 Functional status Patient at Baseline [facility] Work Phone: Mental Status Date Assessment Result Facility 10-16-2023 Because of a physica l, mental, or emotional condition, do you have serious difficulty concentrating, remembering, or making decisions No 10/16/2023 8:24 AM Pablo Leary, SWAPNIL No [facility] Work Phone: 10-15-2023 Cognitive function Cognitive Sta tus Patient at Baseline [facility] Work Phone: Clinical Notes 10-14-2023 to 02-26-2024 Significant Event - Bela Rubalcava MD - 12/27/2023 1:31 PM ESTSignificant Event - Bela Rubalcava MD - 12/27/2023 1:31 PM ESTCare Plan - Lulú Rosas RN - 12/26/2023 9:55 PM ESTDischarge Instructions Note Date & Type Note Facility 02-26-2024 Hospital Discharge instructions Patient Education 02/26/2024 12:33:10 Cystoscopy Cystoscopy Cystoscopy is a procedure that is used to help diagnose and sometimes treat conditions that affect the lower urinary tract. The lower urinary tract includes the bladder and the urethra. The urethra is the tube that drains urine from the bladder. Cystoscopy is done using a thin, tube-shaped instrument with a light and camera at the end (cystoscope). The cystoscope may be hard or flexible, depending on the goal of the procedure. The cystoscope is inserted through the urethra, into the bladder. Cystoscopy may be recommended if you have: Urinary tract infections that keep coming back. Blood in the urine (hematuria). An inability to control when you urinate (urinary incontinence) or an overactive bladder. Unusual cells found in a urine sample. A blockage in the urethra, such as a urinary stone. Painful urination. An abnormality in the bladder found during an intravenous pyelogram (IVP) or CT scan. Cystoscopy may also be done to remove a sample of tissue to be examined under a microscope (biopsy). Tell a health care provider about: Any allergies you have. All medicines you are taking, including vitamins, herbs, eye drops, creams, and wbun-jri-oljyocs medicines. Any problems you or family members have had with anesthetic medicines. Any blood disorders you have. Any surgeries you have had. Any medical conditions you have. Whether you are or may be . What are the risks? Generally, this is a safe procedure. However, problems may occur, including: Infection. Bleeding. Allergic reactions to medicines. Damage to other structures or organs. What happens before the procedure? Medicines Ask your health care provider about: Changing or stopping your regular medicines. This is especially important if you are taking diabetes medicines or blood thinners. Taking medicines such as aspirin and ibuprofen. These medicines can thin your blood. Do not take these medicines unless your health care provider tells you to take them. Taking xyuk-slh-qcqsgae medicines, vitamins, herbs, and supplements. Tests You may have an exam or testing, such as: X-rays of the bladder, urethra, or kidneys. CT scan of the abdomen or pelvis. Urine tests to check for signs of infection. General instructions Follow instructions from your health care provider about eating or drinking restrictions. Ask your health care provider what steps will be taken to help prevent infection. These steps may include: ?Washing skin with a germ-killing soap. ?Taking antibiotic medicine. Plan to have a responsible adult take you home from the hospital or clinic. What happens during the procedure? You will be given one or more of the following: ?A medicine to help you relax (sedative). ?A medicine to numb the area (local anesthetic). The area around the opening of your urethra will be cleaned. The cystoscope will be passed through your urethra into your bladder. Germ-free (sterile) fluid will flow through the cystoscope to fill your bladder. The fluid will stretch your bladder so that your health care provider can clearly examine your bladder clark. Your doctor will look at the urethra and bladder. Your doctor may take a biopsy or remove stones. The cystoscope will be removed, and your bladder will be emptied. The procedure may vary among health care providers and hospitals. What can I expect after the procedure? After the procedure, it is common to have: Some soreness or pain in your abdomen and urethra. Urinary symptoms. These include: ?Mild pain or burning when you urinate. Pain should stop within a few minutes after you urinate. This may last for up to 1 week. ?A small amount of blood in your urine for several days. ?Feeling like you need to urinate but producing only a small amount of urine. Follow these instructions at home: Medicines Take gnno-pbr-ssojfta and prescription medicines only as told by your health care provider. If you were prescribed an antibiotic medicine, take it as told by your health care provider. Do not stop taking the antibiotic even if you start to feel better. General instructions Return to your normal activities as told by your health care provider. Ask your health care provider what activities are safe for you. If you were given a sedative during the procedure, it can affect you for several hours. Do not drive or operate machinery until your health care provider says that it is safe. Watch for any blood in your urine. If the amount of blood in your urine increases, call your health care provider. Follow instructions from your health care provider about eating or drinking restrictions. If a tissue sample was removed for testing (biopsy) during your procedure, it is up to you to get your test results. Ask your health care provider, or the department that is doing the test, when your results will be ready. Drink enough fluid to keep your urine pale yellow. Keep all follow-up visits. This is important. Contact a health care provider if: You have pain that gets worse or does not get better with medicine, especially pain when you urinate. You have trouble urinating. You have more blood in your urine. Get help right away if: You have blood clots in your urine. You have abdominal pain. You have a fever or chills. You are unable to urinate. Summary Cystoscopy is a procedure that is used to help diagnose and sometimes treat conditions that affect the lower urinary tract. Cystoscopy is done using a thin, tube-shaped instrument with a light and camera at the end. After the procedure, it is common to have some soreness or pain in your abdomen and urethra. Watch for any blood in your urine. If the amount of blood in your urine increases, call your health care provider. If you were prescribed an antibiotic medicine, take it as told by your health care provider. Do not stop taking the antibiotic even if you start to feel better. This information is not intended to replace advice given to you by your health care provider. Make sure you discuss any questions you have with your health care provider. Document Revised: 10/19/2021 Document Reviewed: 09/17/2020 [employer] Patient Education 2023 [employer]. Follow Up Care 02/21/2024 09:23:36 With:[facility] Address: [facility] [address] [place] [address] Business (1) When: Unknown Comments:our sugarcane planter will be contacting you for follow-up [facility] 02-26-2024 Note Patient Education Urology Cystoscopy Cystoscopy is a procedure that is used to help diagnose and sometimes treat conditions that affect the lower urinary tract. The lower urinary tract includes the bladder and the urethra. The urethra is the tube that drains urine from the bladder. Cystoscopy is done using a thin, tube-shaped instrument with a light and camera at the end (cystoscope). The cystoscope may be hard or flexible, depending on the goal of the procedure. The cystoscope is inserted through the urethra, into the bladder. Cystoscopy may be recommended if you have: ??? Urinary tract infections that keep coming back. ??? Blood in the urine (hematuria). ??? An inability to control when you urinate (urinary incontinence) or an overactive bladder. ??? Unusual cells found in a urine sample. ??? A blockage in the urethra, such as a urinary stone. ??? Painful urination. ??? An abnormality in the bladder found during an intravenous pyelogram (IVP) or CT scan. Cystoscopy may also be done to remove a sample of tissue to be examined under a microscope (biopsy). Tell a health care provider about: ??? Any allergies you have. ??? All medicines you are taking, including vitamins, herbs, eye drops, creams, and daia-fwn-akkzjqz medicines. ??? Any problems you or family members have had with anesthetic medicines. ??? Any blood disorders you have. ??? Any surgeries you have had. ??? Any medical conditions you have. ??? Whether you are or may be . What are the risks? Generally, this is a safe procedure. However, problems may occur, including: ??? Infection. ??? Bleeding. ??? Allergic reactions to medicines. ??? Damage to other structures or organs. What happens before the procedure? Medicines Ask your health care provider about: ??? Changing or stopping your regular medicines. This is especially important if you are taking diabetes medicines or blood thinners. ??? Taking medicines such as aspirin and ibuprofen. These medicines can thin your blood. Do not take these medicines unless your health care provider tells you to take them. ??? Taking vyxj-sqi-fixyosn medicines, vitamins, herbs, and supplements. Tests You may have an exam or testing, such as: ??? X-rays of the bladder, urethra, or kidneys. ??? CT scan of the abdomen or pelvis. ??? Urine tests to check for signs of infection. General instructions ??? Follow instructions from your health care provider about eating or drinking restrictions. ??? Ask your health care provider what steps will be taken to help prevent infection. These steps may include: ? Washing skin with a germ-killing soap. ? Taking antibiotic medicine. ??? Plan to have a responsible adult take you home from the hospital or clinic. What happens during the procedure? You will be given one or more of the following: ? A medicine to help you relax (sedative). ? A medicine to numb the area (local anesthetic). ??? The area around the opening of your urethra will be cleaned. ??? The cystoscope will be passed through your urethra into your bladder. ??? Germ-free (sterile) fluid will flow through the cystoscope to fill your bladder. The fluid will stretch your bladder so that your health care provider can clearly examine your bladder clrak. ??? Your doctor will look at the urethra and bladder. Your doctor may take a biopsy or remove stones. ??? The cystoscope will be removed, and your bladder will be emptied. The procedure may vary among health care providers and hospitals. What can I expect after the procedure? After the procedure, it is common to have: ??? Some soreness or pain in your abdomen and urethra. ??? Urinary symptoms. These include: ? Mild pain or burning when you urinate. Pain should stop within a few minutes after you urinate. This may last for up to 1 week. ? A small amount of blood in your urine for several days. ? Feeling like you need to urinate but producing only a small amount of urine. Follow these instructions at home: Medicines ??? Take gfej-glp-jibwctg and prescription medicines only as told by your health care provider. ??? If you were prescribed an antibiotic medicine, take it as told by your health care provider. Do not stop taking the antibiotic even if you start to feel better. General instructions ??? Return to your normal activities as told by your health care provider. Ask your health care provider what activities are safe for you. ??? If you were given a sedative during the procedure, it can affect you for several hours. Do not drive or operate machinery until your health care provider says that it is safe. ??? Watch for any blood in your urine. If the amount of blood in your urine increases, call your health care provider. ??? Follow instructions from your health care provider about eating or drinking restrictions. ??? If a tissue sample was removed for testing (biopsy) during your (more content not included)... [facility] 12-27-2023 Note Formatting of this n ote might be different from the original. EGD and colonoscopy performed 12/26/23 with results below: 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s: -Patient will need repeat colonoscopy as soon as feasible to remove 2 cm adenomatous appearing polyp. DAPT will need to be held for 5 days pre procedure. -If off DAPT, can consider repeat EGD with APC for GAVE. 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s communicated with [facility] and outpatient cardiologists via secure chat. Thank you for the consultation. The consulting team will sign off now. Please do not hesitate to contact us again on by paging the consultation team again between the weekday hours of 7 AM - 5 PM. If there is an urgent concern during the weekend, after-hours, or holidays; then [place] [phone]. Thank you. [facility] Work Phone: 12-27-2023 Miscellaneous Notes EGD and colonoscopy performed 12/26/23 with results below: 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s: -Patient will need repeat colonoscopy as soon as feasible to remove 2 cm adenomatous appearing polyp. DAPT will need to be held for 5 days pre procedure. -If off DAPT, can consider repeat EGD with APC for GAVE. 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s communicated with [facility] and outpatient cardiologists via secure chat. [...] [place] [phone]. Thank you. The patient's goals for the shift include The clinical goals for the shift include safety Over the shift, the patient did not make progress toward the following goals. Problem: Safety - Adult Goal: Free from fall injury Outcome: Progressing Flowsheets (Taken 12/26/2023 2155) Free from fall injury: Based on caregiver fall risk screen, instruct family/caregiver to ask for assistance with transferring infant if caregiver noted to have fall risk [...] to Interventional Cardiology for consideration for RCA FOAM DISPENSER given mildly elevated Troponin. At this time, it appears that patient's Troponin elevation is likely from new anemia, which also puts into question whether he can be safely be placed on DAPT for 2 months without interruption. His new anemia is also more likely a contributing factor to his syncope as opposed to his RCA FOAM DISPENSER. GI is recommending EGD/C-scope. At this time [...] to 50%), and OA who presented to [facility] 12/18 after being found down by [...] admitted to ICU pending bed availability at [facility]. Upon arrival to [facility] patient denies having any chest pain or [...] with Dr. Wiley outpatient for consideration of FOAM DISPENSER PCI to RCA. At follow up appointment [...] 12/31 to evaluate candidacy for PCI to FOAM DISPENSER of RCA. Patient transitioned from home diabetes [...] barriers include . documented in this encounter [facility] Work Phone: 12-27-2023 Hospital course Narrative Discharge Diagnosis NSTEMI (non-ST elevated myocardial infarction) (Multi) Issues Requiring Follow-Up - Outpatient follow ups with vascular surgery, interventional cardiology, GI, and primary care. - Need for polyp removal with GI - timing of procedure is undecided but requires holding antiplatelet therapy to minimize bleeding risk but also remaining vigilant about stent patency. microbiology analyst has been informed of situation. - Discuss comprehensive care including diabetes management with PCP. Test Results Pending At Discharge Pending Labs No current pending labs. Hospital Course Italia Allen is a 68 y.o. male with a PMHx of HLD, HTN, T2DM, HFrEF (LVEF 45 to 50%), and OA who presented to [facility] 12/18 after being found down by [...] admitted to ICU pending bed availability at [facility]. Upon arrival to [facility] patient denies having any chest pain or [...] with Dr. Wiley outpatient for consideration of FOAM DISPENSER PCI to RCA. At follow up appointment [...] 12/31 to evaluate candidacy for PCI to FOAM DISPENSER of RCA. Patient transitioned from home diabetes [...] Center 01/01/2024 11:30 AM Sahil Wiley MD [id number] [facility] 03/18/2024 3:20 PM Ann Henao MD [id number] [place] Yvegeniy Navarro PA-C Cosigned by Sherri Armstrong MD [...] Sherri Armstrong MD documented in this encounter [facility] Work Phone: 12-27-2023 Nurse Note Per pt his son will pick him up from the hospital and take him home. Pt state that we can aim for a 1700 picking supervisor today since his son works until 1430. [facility] 12-27-2023 Nurse Note Per pt his son will pick him up from the hospital and take him home. Pt state that we can aim for a 1700 picking supervisor today since his son works until 1430. documented in this encounter [facility] Work Phone: 12-27-2023 Hospital Discharge instructions Yevgeniy [...] will need to be discussed with your sanforizer, Dr. Wiley due to the need to hold your Prasugrel. If you have any bleeding with bowel movements or bleeding with vomiting, please return to the emergency room for evaluation. Monitor for signs of increased fatigue. Follow up with your executive receptionist as previously instructed or sooner if any issues arise. Several new medications have been sent to [facility] in [place], [place] for pickup. Avoid non-steroidal antiinflammatory drugs [...] Everywhere.Low blood sugar in people with diabetes (Cuban)Acid reflux and GERD in adults (Cuban)Atherosclerosis (Cuban)documented in this encounter [facility] Work Phone: 12-26-2023 Plan of care note The patient's goals for the shift include The clinical goals for the shift include safety Over the shift, the patient did not make progress toward the following goals. Problem: Safety - Adult Goal: Free from fall injury Outcome: Progressing Flowsheets (Taken 12/26/20232154) Free from fall injury: Based on caregiver fall risk screen, instruct family/caregiver to ask for assistance with transferring infant if caregiver noted to have fall risk factors Instruct family/caregiver on patient safety [facility] 12-26-2023 Note Formatting of this n ote might be different from the original. Patient complaining of 3-4/10 chest pressure, below sternum/epigastic he recently returned from his EGD/Colonoscopy. Obtained EKG which was NSR and similar to previous. Vitals reviewed. Will c/w current regimen, night fellow notified to follow up overnight. [facility] Work Phone: 12-26-2023 History of Present illness Narrative Subjective Data: - colonoscopy/egd today - plan for o/p Dr. Wiley apt to discuss FOAM DISPENSER - likely home tomorrow Objective Data: Last [...] result verified on 12/22/2023 1726 on specimen/case [id number] called with component [facility] for procedure Troponin I, High Sensitivity with [...] change was found Confirmed by Mere Urban ([id number]) on 11/14/2023 6:48:02 PM ECG 12 lead [...] to 50%), and OA who presented to [facility] 12/18 after being found down by his son. Patient was placed on Heparin drip for elevated troponin of 654 which up trended to 1723 and admitted to ICU pending bed availability at [facility]. Admitted to HVI service for ADHF and NSTEMI management. NSTEMI CAD/HLD - presented to OSH s/p syncopal event, found to be hypoglycemic - OSH Troponin peak 1723, admit HS Troponin 492 ->366 - [facility] 10/14: severe 3V CAD, 70 to 80% prox to mid LAD, 90% marginal 1, and FOAM DISPENSER of the RCA with collateral filling the [...] Wiley with plan for outpt consideration of FOAM DISPENSER PCI to the RCA - appointment with Dr. Wiley 11/12, deferred PCI given pt was not medically optimized - Lipid panel: Chol 102, HDL 26, LDL 34, Tri 185 - can discuss FOAM DISPENSER as o/p per interventional note - stop heparin gtt - cont ASA, statin, coreg - per GI, no need to hold Effient prior to EGD and colonoscopy today Acute on chronic systolic and diastolic heart failure, HFmrEF - 45-50% - etiology: likely ICM, reports a 20 year history of CHF with unknown EF - 09/2023 TTE ([facility]): EF of 45-50%, no significant valvular [...] 2016 was normal - Renal US at [facility] on 10/14 - no acute findings [...] with labile emotions, varied between tearful/anger/withdrawn - grief/certified personal finance counselor services offered-> patient declines - started on sertraline 50 mg daily 11/08, pt reports no improvement - home sertraline increased to 100 mg daily DVT prophylaxis: lovenox Dispo pending PCI evaluation, GI consult Code Status: Full Code NOK: Antony Allen, son: [phone] Patient seen and discussed with ANA M [...] Barriers: None ADOD: 12-27-2023 Pablo Berman RN [facility] [phone] 12/25/23 Transitional Care Coordination Progress Note: Patient discussed during interdisciplinary rounds. Team members present: SWAPNIL SERRANO MD Plan per Medical/Surgical team: PCI evaluation, GI consult Discharge disposition: Home Status-Inpatient Payer- MEDICARE Potential Barriers: None ADOD: 12-27-2023 Pablo Berman RN [facility] [phone] [facility] CONSULT FOLLOW-UP Reason For Consult: acute anemia, [...] ANA M Baker, 80 mg at 12/24/23 220 bumetanide (Bumex) tablet 2 mg, 2 mg, oral, BID, ANA M Em, 2 mg at 12/24/23 1608 carvedilol (Coreg) tablet 25 mg, 25 mg, oral, BID, ANA M Baker, 25 mg at 12/24/232203 [Held by provider] celecoxib (CeleBREX) capsule 200 [...] mg, 50 mg, oral, Daily, Zoila Shane, ELEMENTARY SCHOOL DIRECTOR-AMERICAN HISTORY TEACHER sulfur hexafluoride microsphr (Lumason) injection 24.28 mg, 2 mL, intravenous, Once in imaging, Rafi Faith Christin, ELEMENTARY SCHOOL DIRECTOR-AMERICAN HISTORY TEACHER traMADol (Ultram) tablet 50 mg, 50 mg, oral, q8h PRN, Rafi Cuevas JUAN RAMON WallerN-AMERICAN HISTORY TEACHER, 50 mg at 12/23/23 2120 Labs Results [...] do not hesitate to contact me on R17 Chat or page [phone] if there are any further questions between the weekday hours of 7 AM - 5 PM. -After hours, on weekends, and on holidays, [place] [phone]. Thank you. Bela Rubalcava MD Gastroenterology and Hepatology Fellow [facility] Cosigned by Trevon Cullen MD at 12/25/2023 [...] result verified on 12/22/2023 1726 on specimen/case [id number] called with component [facility] for procedure Troponin I, High Sensitivity with [...] change was found Confirmed by Mere Urban ([id number]) on 11/14/2023 6:48:02 PM ECG 12 lead [...] to 50%), and OA who presented to [facility] 12/18 after being found down by his son. Patient was placed on Heparin drip for elevated troponin of 654 which up trended to 1723 and admitted to ICU pending bed availability at [facility]. Admitted to HVI service for ADHF and NSTEMI management. NSTEMI CAD/HLD - presented to OSH s/p syncopal event, found to be hypoglycemic - OSH Troponin peak 1723, admit HS Troponin 492 ->366 - [facility] 10/14: severe 3V CAD, 70 to 80% prox to mid LAD, 90% marginal 1, and FOAM DISPENSER of the RCA with collateral filling the [...] Wiley with plan for outpt consideration of FOAM DISPENSER PCI to the RCA - appointment with [...] CHF with unknown EF - 09/2023 TTE ([facility]): EF of 45-50%, no significant valvular [...] 2016 was normal - Renal US at [facility] on 10/14 - no acute findings [...] with labile emotions, varied between tearful/anger/withdrawn - grief/certified personal finance counselor services offered-> patient declines - started on sertraline 50 mg daily 11/08, pt reports no improvement - home sertraline increased to 100 mg daily DVT prophylaxis: lovenox Dispo pending PCI evaluation, GI consult Code Status: Full Code NOK: Antony Allen, son: [phone] Patient seen and discussed with Dr. Armstrong [...] result verified on 12/22/2023 1726 on specimen/case [id number] called with component [facility] for procedure Troponin I, High Sensitivity with [...] change was found Confirmed by Mere Urban ([id number]) on 11/14/2023 6:48:02 PM ECG 12 lead [...] to 50%), and OA who presented to [facility] 12/18 after being found down by his son. Patient was placed on Heparin drip for elevated troponin of 654 which up trended to 1723 and admitted to ICU pending bed availability at [facility]. Admitted to HVI service for ADHF and NSTEMI management. NSTEMI CAD/HLD - presented to OSH s/p syncopal event, found to be hypoglycemic - OSH Troponin peak 1723, admit HS Troponin 492 ->366 - [facility] 10/14: severe 3V CAD, 70 to 80% prox to mid LAD, 90% marginal 1, and FOAM DISPENSER of the RCA with collateral filling the [...] Wiley with plan for outpt consideration of FOAM DISPENSER PCI to the RCA - appointment with [...] CHF with unknown EF - 09/2023 TTE ([facility]): EF of 45-50%, no significant valvular [...] 2016 was normal - Renal US at [facility] on 10/14 - no acute findings [...] with labile emotions, varied between tearful/anger/withdrawn - grief/certified personal finance counselor services offered-> patient declines - started on sertraline 50 mg daily 11/08, pt reports no improvement - home sertraline increased to 100 mg daily DVT prophylaxis: lovenox Dispo pending PCI evaluation, GI consult Code Status: Full Code NOK: Antony Allen, son: [phone] Seen and discussed with ANA M Kaufman [...] Payer MEDICARE Potential Barriers: None ADOD: 12-25-2023 Palbo Berman RN [facility] [phone] Discharge Planning Note: Italia Allen is a [...] result verified on 12/22/2023 1726 on specimen/case [id number] called with component [facility] for procedure Troponin I, High Sensitivity with [...] change was found Confirmed by Mere Urban ([id number]) on 11/14/2023 6:48:02 PM ECG 12 lead [...] to 50%), and OA who presented to [facility] 12/18 after being found down by his son. Patient was placed on Heparin drip for elevated troponin of 654 which up trended to 1723 and admitted to ICU pending bed availability at [facility]. Admitted to HVI service for ADHF and NSTEMI management. NSTEMI CAD/HLD - presented to OSH s/p syncopal event, found to be hypoglycemic - OSH Troponin peak 1723, admit HS Troponin 492->366 - [facility] 10/14: severe 3V CAD, 70 to 80% prox to mid LAD, 90% marginal 1, and FOAM DISPENSER of the RCA with collateral filling the [...] Wiley with plan for outpt consideration of FOAM DISPENSER PCI to the RCA - appointment with Dr. Wiley 11/12, deferred PCI given pt was not medically optimized - Lipid panel: Chol 102, HDL 26, LDL 34, Tri 185 - consult Int Cards/Dr. Wiley for evaluation of PCI to FOAM DISPENSER RCA once medically optimized - cont Heparin [...] CHF with unknown EF - 09/2023 TTE ([facility]): EF of 45-50%, no significant valvular [...] Carvedilol 25 mg BID, lisinopril 40 mg, [place] 25 mg daily (home dose 50 mg), [...] 2016 was normal - Renal US at [facility] on 10/14 - no acute findings [...] labile emotions, varied between tearful/anger/withdrawn - grief/ certified personal finance counselor services offered-> patient declines - started on sertraline 50 mg daily 11/08, pt reports no improvement - increase home sertraline to 100 mg daily DVT prophylaxis: Heparin drip Dispo: pending further diuresis, PCI evaluation Code Status: Full Code NOK: Antony Allen, son: [phone] Seen and discussed with attending Dr. Nolan [...] a later time documented in this encounter [facility] Work Phone: 12-26-2023 Plan of care note The patient's goals for the shift include The clinical goals for the shift include patient will remain free of S&S of bleeding Over the shift, the patient did not make progress toward the following goals. Barriers to progression include none. 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s to address these barriers include none. [facility] 12-25-2023 Plan of care note The patient's [...] Progressing Goal: Promote skin healing Outcome: Progressing [facility] 12-25-2023 Plan of care note The patient's goals for the shift include The clinical goals for the shift include pt will remain HDS throughout shift Over the shift, the patient did not make progress toward the following goals. Barriers to progression include none. 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s to address these barriers include none. [facility] Work Phone: 12-24-2023 Plan of care note The patient's goals for the shift include The clinical goals for the shift include pt will remain HDS throughout shift Over the shift, the patient did make progress toward the following goals. [facility] Work Phone: 12-24-2023 Plan of care note Patient reviewed with Dr. Wiley. Ultimately had recent PCI and now admitted with syncope with newly reduced Hgb to the mid 7s. Primary team reaching out to Interventional Cardiology for consideration for RCA FOAM DISPENSER given mildly elevated Troponin. At this time, it appears that patient's Troponin elevation is likely from new anemia, which also puts into question whether he can be safely be placed on DAPT for 2 months without interruption. His new anemia is also more likely a contributing factor to his syncope as opposed to his RCA FOAM DISPENSER. GI is recommending EGD/C-scope. At this time there is no urgency for RCA PCI. Therefore, we would recommend further Hgb optimization and this case can be rediscussed once GI work up is complete and patient appears to be able to take atleast 2 months of DAPT safely. [facility] Work Phone: 12-24-2023 Consult note Associated Order (s): IP CONSULT TO GASTROENTEROLOGY [facility] INITIAL CONSULT NOTE Reason For Consult: anemia, [...] Stent- Coronary; Surgeon: Sahil Wiley MD; Location: [place] [address] Cardiac Video Clerk; Service: Cardiovascular; Laterality: N/A; Allergies: No Known [...] redirect to the Timeline version of the [employer] SmartLink. Intake/Output Summary (Last 24 hours) at [...] 50 mg, oral, q8h PRN, Rafi Waller, ELEMENTARY SCHOOL DIRECTOR-AMERICAN HISTORY TEACHER, 50 mg at 12/23/23 2120 Labs Results [...] or [place] [phone] between the weekday hours of 7 AM - 5 PM. If there is an urgent concern during the weekend, after-hours, or holidays; then [place] [phone]. Thank you. Bela Rubalcava MD Gastroenterology and Hepatology Fellow [facility] Cosigned by Trevon Cullen MD at 12/24/2023 [...] decision making as documented in the note. [facility] Work Phone: 12-24-2023 Consult note Associated Order (s): IP CONSULT TO GASTROENTEROLOGY [facility] INITIAL CONSULT NOTE Reason For Consult: anemia, [...] Stent- Coronary; Surgeon: Sahil Wiley MD; Location: [place] [address] Cardiac Video Clerk; Service: Cardiovascular; Laterality: N/A; Allergies: No Known [...] redirect to the Timeline version of the [employer] SmartLink. Intake/Output Summary (Last 24 hours) at [...] Nightly, ANA M Baker, 80 mg at 12/23/23 2120 bumetanide (Bumex) [...] capsule 100 mg, 100 mg, oral, BID, Fabiolajamil Cuevas ANA M Waller, 100 mg at 12/22/23 1157 glucagon HCL [...] 100 mg, 100 mg, oral, Daily, Rafi Waller, ELEMENTARY SCHOOL DIRECTOR-AMERICAN HISTORY TEACHER, 100 mg at 12/24/23 0808 spironolactone (Aldactone) tablet 25 mg, 25 mg, oral, Daily, Rafi Waller, ELEMENTARY SCHOOL DIRECTOR-AMERICAN HISTORY TEACHER, 25 mg at 12/24/23 0808 traMADol (Ultram) tablet 50 mg, 50 mg, oral, q8h PRN, Rafi WallerDALTON-AMERICAN HISTORY TEACHER, 50 mg at 12/23/23 2120 Labs Results [...] not hesitate to contact us again on R17 Chat [place] [phone] between the weekday hours of 7 AM - 5 PM. If there is an urgent concern during the weekend, after-hours, or holidays; then [place] [phone]. Thank you. Bela Rubalcava MD Gastroenterology and Hepatology Fellow [facility] Cosigned by Trevon Cullen MD at 12/24/2023 [...] in the note. documented in this encounter [facility] Work Phone: 12-24-2023 Plan of care note The patient's goals for the shift include The clinical goals for the shift include Pt will remain HDS throughout the shift Over the shift, the patient did not make progress toward the following goals. Barriers to progression include . 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s to address these barriers include . [facility] Work Phone: 12-23-2023 Plan of care note The patient's goals for the shift include The clinical goals for the shift include pt will remain HDS throughout the shift Over the shift, the patient did make progress toward the following goals. [facility] Work Phone: 12-23-2023 Hospital Note Formatting of t his note might be different from the original. Italia Allen is a 68 y.o. male with a PMHx of HLD, HTN, T2DM, HFrEF (LVEF 45 to 50%), and OA who presented to [facility] 12/18 after being found down by [...] admitted to ICU pending bed availability at [facility]. Upon arrival to [facility] patient denies having any chest pain or [...] with Dr. Wiley outpatient for consideration of FOAM DISPENSER PCI to RCA. At follow up appointment [...] 12/31 to evaluate candidacy for PCI to FOAM DISPENSER of RCA. Patient transitioned from home diabetes [...] minutes were spent in coordinating patient discharge. [facility] Work Phone: 12-23-2023 Plan of care note The patient's goals for the shift include The clinical goals for the shift include pt will be HDS throughout the shift Over the shift, the patient did not make progress toward the following goals. Barriers to progression include . 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s to address these barriers include . [facility] Work Phone: 12-22-2023 History and physical note History Of Present Illness: Italia Allen is a 68 y.o. male with a PMHx of HLD, HTN, T2DM, HFrEF (LVEF 45 to 50%), and OA who presented to [facility] 12/18 after being found down by [...] admitted to ICU pending bed availability at [facility]. Upon arrival to [facility] patient denies having any chest pain or [...] with Dr. Wiley outpatient for consideration of FOAM DISPENSER PCI to RCA. At follow up appointment [...] result verified on 12/22/2023 1726 on specimen/case [id number] called with component [facility] for procedure Troponin I, High Sensitivity with [...] to 50%), and OA who presented to [facility] 12/18 after being found down by his son. Patient was placed on Heparin drip for elevated troponin of 654 which up trended to 1723 and admitted to ICU pending bed availability at [facility]. Admitted to HVI service for ADHF and NSTEMI management. NSTEMI CAD/HLD - presented to OSH s/p syncopal event, found to be hypoglycemic - OSH Troponin peak 1723, admit Troponin 492->366 - [facility] 10/14: severe 3V CAD, 70 to 80% prox to mid LAD, 90% marginal 1, and FOAM DISPENSER of the RCA with collateral filling the [...] Wiley with plan for outpt consideration of FOAM DISPENSER PCI to the RCA - appointment with Dr. Wiley 11/12, deferred PCI given pt was not medically optimized - cont Heparin drip at this time, consider discontinuing tomorrow as pt has been on since 12/18 and currently denies CP - Lipid panel pending - consult Int Cards/Dr. Wiley for evaluation of PCI to FOAM DISPENSER RCA once medically optimized - Continue ASA 81 mg, Prasugrel 10 mg, Carvedilol 25 mg BID, and atorvastatin 80 mg daily Acute on chronic systolic and diastolic heart failure, HFmrEF - 45-50% - etiology: likely ICM, reports a 20 year history of CHF with unknown EF - 09/2023 TTE ([facility]): EF of 45-50%, no significant valvular [...] 2016 was normal - Renal US at [facility] on 10/14 - no acute findings [...] labile emotions, varied between tearful/anger/withdrawn - grief/ certified personal finance counselor services offered-> patient declined - started on [...] particularly interested in discussing it with me [facility] Work Phone: 12-22-2023 History and physical note History Of Present Illness: Italia Allen is a 68 y.o. male with a PMHx of HLD, HTN, T2DM, HFrEF (LVEF 45 to 50%), and OA who presented to [facility] 12/18 after being found down by [...] admitted to ICU pending bed availability at [facility]. Upon arrival to [facility] patient denies having any chest pain or [...] with Dr. Wiley outpatient for consideration of FOAM DISPENSER PCI to RCA. At follow up appointment [...] result verified on 12/22/2023 1726 on specimen/case [id number] called with component [facility] for procedure Troponin I, High Sensitivity with [...] to 50%), and OA who presented to [facility] 12/18 after being found down by his son. Patient was placed on Heparin drip for elevated troponin of 654 which up trended to 1723 and admitted to ICU pending bed availability at [facility]. Admitted to HVI service for ADHF and NSTEMI management. NSTEMI CAD/HLD - presented to OSH s/p syncopal event, found to be hypoglycemic - OSH Troponin peak 1723, admit Troponin 492->366 - [facility] 10/14: severe 3V CAD, 70 to 80% prox to mid LAD, 90% marginal 1, and FOAM DISPENSER of the RCA with collateral filling the [...] Wiley with plan for outpt consideration of FOAM DISPENSER PCI to the RCA - appointment with Dr. Wiley 11/12, deferred PCI given pt was not medically optimized - cont Heparin drip at this time, consider discontinuing tomorrow as pt has been on since 12/18 and currently denies CP - Lipid panel pending - consult Int Cards/Dr. Wiley for evaluation of PCI to FOAM DISPENSER RCA once medically optimized - Continue ASA 81 mg, Prasugrel 10 mg, Carvedilol 25 mg BID, and atorvastatin 80 mg daily Acute on chronic systolic and diastolic heart failure, HFmrEF - 45-50% - etiology: likely ICM, reports a 20 year history of CHF with unknown EF - 09/2023 TTE ([facility]): EF of 45-50%, no significant valvular [...] Carvedilol 25 mg BID, lisinopril 40 mg, [place] 25 mg daily (home dose 50 mg), [...] 2016 was normal - Renal US at [facility] on 10/14 - no acute findings [...] labile emotions, varied between tearful/anger/withdrawn - grief/ certified personal finance counselor services offered-> patient declined - started on [...] it with me documented in this encounter [facility] Work Phone: 12-21-2023 Note Patient Education Urology [...] Follow these instructions at home: ??? Take oygc-fua-pwubjso and prescription medicines only as told by [...] do not get (more content not included)... [facility] 11-29-2023 History of Present illness Narrative Images from the original note were not included. Subjective Patient ID: Italia Allen is a 68 y.o. 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 Hickey ref. provider found for No chief complaint on file. History Of Present Illness: Italia Allen is a 68 y.o. male with a past medical history of hyperlipidemia, hypertension, T2DM, HFrEF (LVEF 45 to 50%) who presented in September 2023 with an NSTEMI. Coronary angiography demonstrated severe LAD stenosis and a FOAM DISPENSER of the RCA. He underwent IVUS guided [...] now is referred here for consideration of FOAM DISPENSER PCI to the RCA. Regarding the FOAM DISPENSER anatomy there is a severe ostial lesion followed by a severe proximal lesion and then a relatively short FOAM DISPENSER with a distal island and then a [...] LAD and circumflex. He has remaining complex FOAM DISPENSER of the RCA. Today he appears in [...] be medically optimized prior to consideration of FOAM DISPENSER PCI to the RCA. Plan: - Increase [...] optimized, we will postpone plans for RCA FOAM DISPENSER PCI. - Continue with dual antiplatelet therapy (aspirin and prasugrel) for at least 12 months. Return to clinic in 4 weeks. MD Sahil Mandujano MD documented in this encounter [facility] Work Phone: 11-13-2023 Instructions Inderjit Michelle MD [...] in 4 weeks. documented in this encounter [facility] Work Phone: 11-02-2023 History of Present illness Narrative Subjective Italia Allen is a 68 y.o. male Chief Complaint Follow-up HPI Patient is here for follow-up continue management for recent hospitalization for heart failure and acute coronary syndrome. He was found to have three-vessel disease. He was transferred to [facility] for evaluation. Following lengthy discussion with the [...] my name below, I, Araceli Kline LPN, Scribsandra attest that this documentation has been prepared [...] discussion and plan. documented in this encounter [facility] Work Phone: 11-02-2023 Instructions Araceli Overton LPN [...] up 4 months documented in this encounter [facility] Work Phone: 10-24-2023 History of Present illness [...] 2-3 weeks Consideration of staged PCI to FOAM DISPENSER of the right DAPT for 12 months (prasugrel and aspirin) Cardiac rehab referral placed Interventional Recs: - cont telemetry care per PCI protocol - OK to discharge from interventional perspective - cont DAPT with prasugrel and aspirin - education on compliance with DAPT provided - at discharge, PLEASE send 90 day prescription of prasugrel to [facility] (for melgar check and Meds to Beds) [...] CNP Interventional Cardiology General Cardiology Consult Pager: [phone] (weekday 7AM-6PM and weekend 7AM-2PM)and other: [phone] EP Consult Pager: [phone] (weekday 7AM-6PM and weekend 7AM-2PM) and other: [phone] EP Device Nurse Pager: [phone] (weekday 7AM-4PM) Advanced Heart Failure Consult Pager: [phone] anytime CICU Fellow Pager: [phone] anytime Endovascular /Limb Salvage Team Pager: [phone] for day coverage (8am-5pm) Interventional Director Of Culture Pager: [phone] (7AM-5PM) Night coverage: [facility] Cross Cover [id number] Structural Heart Team Pager: [phone] anytime Night coverage: [facility] [id number] ANA M Stratton 10/23/23 Transitional Care Coordination Progress Note: Patient discussed during interdisciplinary rounds. Team members present: SWAPNIL SERRANO MD Plan per Medical/Surgical team: PCI 10-23-2023 monitoring creatine Discharge disposition: Home no anticipated needs Status-Inpatient Payer- MEDICARE Potential Barriers: None ADOD: 10-25-2023 Pablo Berman RN [facility] [phone] HVI Attending Shared Visit Note This is [...] pain and PARSONS. He was transferred to [facility] where an echo showed EF 45-50% and LHC showed 3VD with reported 70-80% stenosis of the prox-mid LAD, 90% OM1 and FOAM DISPENSER of proximal RCA with left to right [...] the setting of his passing away. Offered certified personal finance counselor, he did not think he needed it. Dispo: pending PCI this coming week Mario Heck MD Problems: Principal Problem: Acute on chronic systolic (congestive) heart failure (Multi) Active Problems: Hypertension Stage 3a chronic kidney disease (Multi) Type 2 diabetes mellitus without complication (Multi) CAD, multiple vessel NSTEMI (non-ST elevated myocardial infarction) (Multi) Grief Objective Admit Date: 10/15/2023 Hospital Length of Stay: 7 Home: [facility] [id number] Vitals: 10/22/2023 7:30 AM 10/22/2023 4:41 AM [...] results for input(s): ABO in the last 92686 hours. HEME/ENDO: Recent Labs 10/16/23 0156 FERRITIN 184 IRONSAT 12* TSH 6.30* FREET4 1.20 HGBA1C 6.8* CARDIAC: Recent Labs 10/16/23 0906 10/16/23 0156 TROPHS -- 916* BNP 88 -- Recent Labs 10/16/23 0156 CHOL 114 HDL 25.8 TOX:No results for input(s): AMPHETAMINE , BENZO , CANNABINOID , COCAI , FENTANYL , OPIATE , OXYCODONE , PCP in the last 38391 hours. No lab exists for component: BARBSCRUR MICRO: No results for input(s): ESR , CRP , PROCAL in the last 19891 hours. No results found for the last [...] disease. No formal report, images available in [employer]. Ejection Fractions: LVEF 45-50% Cath: 10/15/2023 - images available in [employer] IMPRESSION 1. Three-vessel coronary artery disease as [...] heart failure and NSTEMI with 3VD on [facility] and mild LV systolic dysfunction. Transferred from OSH for CABG evaluation. NSTEMI Coronary artery disease - presented to OSH with chest pain and shortness of breath - OSH Troponin 80->543->982->1682 - troponin upon transfer: 916 - [facility] 10/14: severe 3V CAD, 70 to 80% prox to mid LAD, 90% marginal 1, and FOAM DISPENSER of the RCA with collateral filling the [...] Per Dr. Wiley, plan for staged PCI Malaika 9/3, see CHIP note for full details - [...] CHF with unknown EF - TTE at [facility]: EF of 45-50%, no significant valvular [...] value at OSH - Renal US at [facility] on 10/14 - no acute findings [...] between tearful/anger/withdrawn - therapeutic listening provided, grief/ certified personal finance counselor services offered-> patient declines at this time DVT prophylaxis: subcutaneous Lovenox Dispo: pending PCI 10/22 Code Status: Full code Patient seen and discussed with Dr. Maria R Cabrera, ELEMENTARY SCHOOL DIRECTOR-AMERICAN HISTORY TEACHER, DNP Associated attestation - Mario Heck MD [...] pain and PARSONS. He was transferred to [facility] where an echo showed EF 45-50% and LHC showed 3VD with reported 70-80% stenosis of the prox-mid LAD, 90% OM1 and FOAM DISPENSER of proximal RCA with left to right [...] the setting of his passing away. Offered certified personal finance counselor, he did not think he needed it. Dispo: pending PCI this coming week Mario Heck MD Problems: Principal Problem: Acute on chronic systolic (congestive) heart failure (Multi) Active Problems: Hypertension Stage 3a chronic kidney disease (Multi) Type 2 diabetes mellitus without complication (Multi) CAD, multiple vessel NSTEMI (non-ST elevated myocardial infarction) (Multi) Grief Objective Admit Date: 10/15/2023 Hospital Length of Stay: 6 Home: [facility] [id number] Vitals: 10/21/2023 7:41 AM 10/21/2023 5:19 AM [...] results for input(s): ABO in the last 41644 hours. HEME/ENDO: Recent Labs 10/16/23 015 FERRITIN 184 IRONSAT 12* TSH 6.30* FREET4 1.20 HGBA1C 6.8* CARDIAC: Recent Labs 10/16/23 0906 10/16/23 0156 TROPHS -- 916* BNP 88 -- Recent Labs 10/16/23 0156 CHOL 114 HDL 25.8 TOX:No results for input(s): AMPHETAMINE , BENZO , CANNABINOID , COCAI , FENTANYL , OPIATE , OXYCODONE , PCP in the last 75585 hours. No lab exists for component: BARBSCRUR MICRO: No results for input(s): ESR , CRP , PROCAL in the last 50912 hours. No results found for the last [...] heart failure and NSTEMI with 3VD on [facility] and mild LV systolic dysfunction. Transferred from OSH for CABG evaluation. NSTEMI Coronary artery disease - presented to OSH with chest pain and shortness of breath - OSH Troponin 80->543->982->1682 - troponin upon transfer: 916 - [facility] 10/14: severe 3V CAD, 70 to 80% prox to mid LAD, 90% marginal 1, and FOAM DISPENSER of the RCA with collateral filling the [...] CHF with unknown EF - TTE at [facility]: EF of 45-50%, no significant valvular [...] value at OSH - Renal US at [facility] on 10/14 - no acute findings [...] between tearful/anger/withdrawn - therapeutic listening provided, grief/ certified personal finance counselor services offered-> patient declines at this time DVT prophylaxis: subcutaneous Lovenox Dispo: pending PCI 10/22 Code Status: Full code Patient seen and discussed with Dr. Maria R Sinclair, [facility] Associated attestation - Mario Heck MD - [...] pain and PARSONS. He was transferred to [facility] where an echo showed EF 45-50% and LHC showed 3VD with reported 70-80% stenosis of the prox-mid LAD, 90% OM1 and FOAM DISPENSER of proximal RCA with left to right [...] the setting of his passing away. Offered certified personal finance counselor, he did not think he needed it. Dispo: pending PCI this coming week Mario Heck MD Problems: Principal Problem: Acute on chronic systolic (congestive) heart failure (Multi) Active Problems: Hypertension Stage 3a chronic kidney disease (Multi) Type 2 diabetes mellitus without complication (Multi) CAD, multiple vessel NSTEMI (non-ST elevated myocardial infarction) (Multi) Grief Objective Admit Date: 10/15/2023 Hospital Length of Stay: 5 Home: [facility] [id number] Vitals: 10/20/2023 7:31 AM 10/20/2023 4:30 AM [...] results for input(s): ABO in the last 77682 hours. HEME/ENDO: Recent Labs 10/16/23 0156 FERRITIN 184 IRONSAT 12* TSH 6.30* FREET4 1.20 HGBA1C 6.8* CARDIAC: Recent Labs 10/16/23 0906 10/16/23 0156 TROPHS -- 916* BNP 88 -- Recent Labs 10/16/23 0156 CHOL 114 HDL 25.8 TOX:No results for input(s): AMPHETAMINE , BENZO , CANNABINOID , COCAI , FENTANYL , OPIATE , OXYCODONE , PCP in the last 79746 hours. No lab exists for component: BARBSCRUR MICRO: No results for input(s): ESR , CRP , PROCAL in the last 60085 hours. No results found for the last [...] disease. No formal report, images available in Digib[employer]. Ejection Fractions: LVEF 45-50% Cath: 10/15/2023 - [...] heart failure and NSTEMI with 3VD on [facility] and mild LV systolic dysfunction. Transferred from OSH for CABG evaluation. NSTEMI Coronary artery disease - presented to OSH with chest pain and shortness of breath - OSH Troponin 80->543->982->1682 - troponin upon transfer: 916 - [facility] 10/14: severe 3V CAD, 70 to 80% prox to mid LAD, 90% marginal 1, and FOAM DISPENSER of the RCA with collateral filling the [...] CHF with unknown EF - TTE at [facility]: EF of 45-50%, no significant valvular [...] value at OSH - Renal US at [facility] on 10/14 - no acute findings - Cr 1.58 (1.68-> 1.64->1.52->1.35) - Avoid nephrotoxins and hypotension Arthritis - Tylenol PRN - Lidocaine patches - Voltaren gel to affected areas QID PRN DVT prophylaxis: subcutaneous Lovenox Dispo: pending PCI 10/22 Code Status: Full code Patient seen and discussed with Dr. Maria R Sinclair, ELEMENTARY SCHOOL DIRECTOR-AMERICAN HISTORY TEACHER Associated attestation - Mario Heck MD - [...] heart failure and NSTEMI with 3VD on [facility] and mild LV systolic dysfunction. Transferred from OSH for CABG evaluation. NSTEMI Coronary artery disease - presented to OSH with chest pain and shortness of breath - OSH Troponin 80->543->982->1682 - troponin upon transfer: 916 - [facility] 10/14: severe 3V CAD, 70 to 80% prox to mid LAD, 90% marginal 1, and FOAM DISPENSER of the RCA with collateral filling the [...] CHF with unknown EF - TTE at [facility]: EF of 45-50%, no significant valvular [...] value at OSH - Renal US at [facility] on 10/14 - no acute findings - Cr 1.58 (1.68-> 1.64->1.52->1.35) - Avoid nephrotoxins and hypotension Arthritis - Tylenol PRN - Lidocaine patches - Voltaren gel to affected areas QID PRN DVT prophylaxis: subcutaneous Lovenox Dispo: pending PCI 10/22 Code Status: Full code Patient seen and discussed with Dr. Maria R Waller, [employer] Associated attestation - Mario Heck MD - [...] pain and PARSONS. He was transferred to [facility] where an echo showed EF 45-50% and LHC showed 3VD with reported 70-80% stenosis of the prox-mid LAD, 90% OM1 and FOAM DISPENSER of proximal RCA with left to right [...] the setting of his passing away. Offered certified personal finance counselor, he did not think he needed it. Dispo: pending PCI next week Mario Heck MD Problems: Principal Problem: Acute on chronic systolic (congestive) heart failure (Multi) Active Problems: Hypertension Stage 3a chronic kidney disease (Multi) Type 2 diabetes mellitus without complication (Multi) CAD, multiple vessel NSTEMI (non-ST elevated myocardial infarction) (Multi) Grief Objective Admit Date: 10/15/2023 Hospital Length of Stay: 4 Home: [facility] [id number] Vitals: 10/19/2023 11:29 AM 10/19/2023 8:52 AM [...] -- -- -- 0.4 CBC: Recent Labs 10/18/23201010/17/23173810/16/23 1846 10/16/23 0906 10/16/23 0156 WBC 7.2 8.6 8.2 -- 9.3 HGB 10.7* 11.1* 10.5* -- 11.4* HCT 34.3* 35.2* 33.4* -- 35.2* PLT 295 316 283 276 285 MCV 92 92 91 -- 91 COAG: Recent Labs 10/18/23 0710/17/23173810/17/23115810/17/2339 10/16/237 10/16/23 0910/16/23 0156 INR -- -- -- -- -- -- 1.1 HAUF 0.4 0.3 0.5 0.2 0.3 < > -- < > = values in this interval not displayed. ABO: No results for input(s): ABO in the last 64028 hours. HEME/ENDO: Recent Labs 10/16/23 0156 FERRITIN 184 IRONSAT 12* TSH 6.30* FREET4 1.20 HGBA1C 6.8* CARDIAC: Recent Labs 10/16/23 0906 10/16/23 0156 TROPHS -- 916* BNP 88 -- Recent Labs 10/16/23 0156 CHOL 114 HDL 25.8 TOX:No results for input(s): AMPHETAMINE , BENZO , CANNABINOID , COCAI , FENTANYL , OPIATE , OXYCODONE , PCP in the last 87478 hours. No lab exists for component: BARBSCRUR MICRO: No results for input(s): ESR , CRP , PROCAL in the last 93281 hours. No results found for the last [...] heart failure and NSTEMI with 3VD on [facility] and mild LV systolic dysfunction. Transferred from OSH for CABG evaluation. NSTEMI Coronary artery disease - presented to OSH with chest pain and shortness of breath - OSH Troponin 80->543->982->1682 - troponin upon transfer: 916 - [facility] 10/14: Three-vessel coronary artery disease as evident by diffuse severe disease inthe proximal to mid LAD in the range of 70 to 80%, 90% marginal 1 and total occlusion of the right coronary artery with collateral filling the distal right coronary artery demonstrating vessel appears to be a good target for revascularization. Images have been transferred and are viewable through [employer]. - Continue ASA, carvedilol and atorvastatin - Discontinue Heparin gtt today - CTS consulted for CABG evaluation, work-up initiated Acute on chronic systolic and diastolic heart failure HFmrEF - 45-50% - etiology: likely ICM - Reports a 20 year history of CHF with unknown EF - TTE done at [facility] showed an EF of 45-50% with no significant valvular disease. No formal report available. Images have been transferred and are viewable through [employer]. - BNP on admit: 88 - s/p [...] value at OSH - Renal US at [facility] on 10/14 - no acute findings [...] pain and PARSONS. He was transferred to [facility] where an echo showed EF 45-50% and LHC showed 3VD with reported 70-80% stenosis of the prox-mid LAD, 90% OM1 and FOAM DISPENSER of proximal RCA with left to right [...] the setting of his passing away. Offered certified personal finance counselor, he did not think he needed it. [...] pain and PARSONS. He was transferred to [facility] where an echo showed EF 45-50% and LHC showed 3VD with reported 70-80% stenosis of the prox-mid LAD, 90% OM1 and FOAM DISPENSER of proximal RCA with left to right [...] the setting of his passing away. Offered certified personal finance counselor, he did not think he needed it. Dispo: pending CABG amber Heck MD Problems: Principal Problem: Acute on chronic systolic (congestive) heart failure (Multi) Active Problems: Hypertension Stage 3a chronic kidney disease (Multi) Type 2 diabetes mellitus without complication (Multi) CAD, multiple vessel NSTEMI (non-ST elevated myocardial infarction) (Multi) Grief Objective Admit Date: 10/15/2023 Hospital Length of Stay: 2 Home: [facility] [id number] Vitals: 10/17/2023 2:49 PM 10/17/2023 12:50 PM [...] mouth once daily. DATA: CMP: Recent Labs 10/16/23184510/16/23 015 NA 138 137 K 4.1 4.3 CL 103 102 CO2 24 26 ANIONGAP 15 13 BUN 32* 33* CREATININE 1.52* 1.64* EGFR 49* 45* MG 1.84 -- Recent Labs 10/16/23184510/16/23 015 ALBUMIN 3.1* 3.3* ALT -- 15 AST -- 14 BILITOT -- 0.4 CBC: Recent Labs 10/16/23184510/16/23 0906 10/16/23 015 WBC 8.2 -- 9.3 HGB 10.5* [...] results for input(s): ABO in the last 79740 hours. HEME/ENDO: Recent Labs 10/16/23 015 FERRITIN 184 IRONSAT 12* TSH 6.30* FREET4 1.20 HGBA1C 6.8* CARDIAC: Recent Labs 10/16/23 0906 10/16/23 0156 TROPHS -- 916* BNP 88 -- Recent Labs 10/16/23 0156 CHOL 114 HDL 25.8 TOX:No results for input(s): AMPHETAMINE , BENZO , CANNABINOID , COCAI , FENTANYL , OPIATE , OXYCODONE , PCP in the last 85389 hours. No lab exists for component: BARBSCRUR MICRO: No results for input(s): ESR , CRP , PROCAL in the last 73450 hours. No results found for the last 90 days. FOLLOWUP: No future appointments. CARDIAC SURGERY CONSULT PROGRESS NOTE SUBJECTIVE Italia Allen is a 68 y.o. male with PMH of HTN, HLD, DM2, Morbid obesity, OA and CHF who initially presented to [facility] with two days of chest pain and worsening SOB and PARSONS. At [place] [facility], he was desaturated with 70% O2 sat at RA and his troponin was uptrending. Therefore, he was transferred to [facility] for further workup and management. At [facility], he was treated with IV lasix with significant improvement of his SOB and volume status. He underwent a TTE that was reported to show an EF of 45-50% without significant valvular disease. He also underwent a LHC that showed 3VD with 70-80% stenosis of prox-mid LAD, 90% of OM1 and FOAM DISPENSER of prox RCA with collateral filling of the distal RCA from the left system. He was transferred to [facility] for a CABG evaluation. The patient states [...] OA and CHF who initially presented to [facility] with two days of chest pain and worsening SOB and PARSONS. At [place] [facility], he was desaturated with 70% O2 sat at RA and his troponin was uptrending. Therefore, he was transferred to [facility] for further workup and management. At [facility], he was treated with IV lasix with significant improvement of his SOB and volume status. He underwent a TTE that was reported to show an EF of 45-50% without significant valvular disease. He also underwent a LHC that showed 3VD with 70-80% stenosis of prox-mid LAD, 90% of OM1 and FOAM DISPENSER of prox RCA with collateral filling of the distal RCA from the left system. He was transferred to [facility] for a CABG evaluation. The patient states [...] Please page the cardiac surgery consult pager [phone] with any questions or changes in patient condition. Ru Elena PA-C Cardiac Surgery Consult [facility] Cardiac Surgery Consult Pager [phone] 10/17/2023 2:22 PM 10/17/23 Transitional Care Coordination Progress Note: Patient discussed during interdisciplinary rounds. Team members present: SWAPNIL SERRANO MD Plan per Medical/Surgical team: CABG work-up/ evaluation Discharge disposition: TBD Status-Inpatient Payer- MEDICARE Potential Barriers: None ADOD: 10-20-2023 Will continue to monitor for all discharging needs Pablo ALEJANDRA [phone] Physical Therapy Physical Therapy Evaluation Patient Name: Italia Aleln Today's Date: 10/17/2023 Time Calculation Start Time: [...] OA and CHF who initially presented to [facility] with two days of chest pain [...] Prior Function Per Pt/Caregiver Report Level of [place]: Independent with ADLs and functional transfers ADL [...] function.) Comments/Distance (ft) 1: 200ft Outcome Measures: [facility] Basic Mobility Turning from your back to [...] or pet therapy or visiting with the lettuce cutter at this time. - CABG workup with [...] heart failure and NSTEMI with 3VD on [facility] and mild LV systolic dysfunction. Transferred from OSH for CABG evaluation. NSTEMI Coronary artery disease - presented to OSH with chest pain and shortness of breath - OSH Troponin 80->543->982->1682 - troponin upon transfer: 916 - [facility] 10/14: Three-vessel coronary artery disease as evident by diffuse severe disease inthe proximal to mid LAD in the range of 70 to 80%, 90% marginal 1 and total occlusion of the right coronary artery with collateral filling the distal right coronary artery demonstrating vessel appears to be a good target for revascularization. Images have been transferred and are viewable through [employer]. - Continue Heparin gtt, ASA, and atorvastatin - CTS consulted for CABG evaluation, work-up initiated Acute on chronic systolic and diastolic heart failure HFmrEF - 45-50% - etiology: likely ICM - Reports a 20 year history of CHF with unknown EF - TTE done at [facility] showed an EF of 45-50% with no significant valvular disease. No formal report available. Images have been transferred and are viewable through [employer]. - BNP on admit: 88 - s/p [...] last Cr in 2017 was normal - Behaves like CKD with stable value at OSH - Renal US at [facility] on 10/14 - no acute findings [...] flat, no dyspnea) Overnight Events: Admitted to [facility] Objective Data: Last Recorded Vitals: Vitals: 10/16/23 [...] disease. No formal report, images available in Digibooo. Ejection Fractions: LVEF 45-50% Cath: 10/15/2023 - images available in [employer]ib[employer] IMPRESSION 1. Three-vessel coronary artery disease as [...] heart failure and NSTEMI with 3VD on [facility] and mild LV systolic dysfunction. Transferred from OSH for CABG evaluation. NSTEMI Coronary artery disease - presented to OSH with chest pain and shortness of breath - OSH Troponin 80->543->982->1682 - troponin upon transfer: 916 - [facility] 10/14: Three-vessel coronary artery disease as evident by diffuse severe disease inthe proximal to mid LAD in the range of 70 to 80%, 90% marginal 1 and total occlusion of the right coronary artery with collateral filling the distal right coronary artery demonstrating vessel appears to be a good target for revascularization. Images have been transferred and are viewable through Digibooo. - Continue Heparin gtt, ASA, metoprolol and atorvastatin - CTS consulted for CABG evaluation, work-up initiated Acute on chronic systolic and diastolic heart failure HFmrEF - 45-50% - etiology: likely ICM - Reports a 20 year history of CHF with unknown EF - TTE done at [facility] showed an EF of 45-50% with [...] value at OSH - Renal US at [facility] on 10/14 - no acute findings - Avoid nephrotoxins and hypotension - diuretic held as above DVT prophylaxis: heparin gtt Dispo: pending CABG work-up/ evaluation Patient seen and discussed with Dr. Heck Code Status: Full Code Ctaia Patton PA-C 10/16/23 0824 Discharge Planning Living Arrangements Alone Support Systems Congregational/yvette community Assistance Needed none Type of Residence [...] were you homeless or living in a alf (including now)? N Transportation Needs In the past 12 months, has lack of transportation kept you from medical appointments or from getting medications? no In the past 12 months, has lack of transportation kept you from meetings, work, or from getting things needed for daily living? No Patient Choice Provider Choice list and [facility] website (https://medicare.gov/care-compar e#search) for post-acute Quality and Resource Measure Data were provided and reviewed with: Patient Patient / Family choosing to utilize agency / facility established prior to hospitalization No Transitional Topographical Field Assistant Note: 10/16/2023@8:00 Met with patient to introduce myself, role and discuss discharge planning s/p admission. Patient lives with alone Independent in all ADL's. Does not require assist devices for ambulation. Demographics and contact information confirmed. Will continue to monitor patient for all home going needs. Pablo Berman RN [facility] [phone] Previous Home Care None DME None Falls: [...] Rosemarie Miranda PharmD Transitions of Care Pharmacist [facility] Please reach out via Secure Chat for questions documented in this encounter [facility] Work Phone: 10-24-2023 Plan of care note Pt remained HDS and free of injury this shift. Pt to be discharged home. Pt awaiting medications from [facility] pharmacy. Pt provided with discharge instructions, pt [...] by end of the shift Outcome: Progressing [facility] 10-24-2023 Miscellaneous Notes Pt remained HDS and free of injury this shift. Pt to be discharged home. Pt awaiting medications from [facility] pharmacy. Pt provided with discharge instructions, pt [...] Attending: * Sahil Wiley - Primary Resident/Fellow/Other Attorney Recruiter: Blaise Michelle Surgeons and Role: * No [...] Complications: Nil Stents/Implants: Implants Stent Stent, [address] [place], 3.50 X 15rx - [id number] - Implanted Inventory item: STENT, SCOTT FRONTIER LISY, 3.50 X 15RX Model/Cat number: [id number] Cutting Torch Operator: Ahorro Libre Lot number: [id number] Device identifier: [id number] As of 10/23/2023 Status: Implanted Stent, Synergy Xd, Mr Us, 3.00 X 48mm - [id number] - Implanted Inventory item: STENT, SYNERGY XD, MR US, 3.00 X 48MM Model/Cat number: [id number] Cutting Torch Operator: [employer] [place] Lot number: [id number] Device identifier: [id number] As of 10/23/2023 Status: Implanted Anticoagulation/Antiplatelet Plan: Estimated Blood Loss: 5 mL Anesthesia: Moderate Sedation Anesthesia Staff: No anesthesia staff entered. Any Specimen(s) Removed: No specimens collected during this procedure. Disposition: Back to [facility] follow up in 2-3 weeks Consideration of staged PCI to FOAM DISPENSER of the right DAPT for 12 months [...] Coronary Intervention (CHIP) Update Note Primary team: [facility] CHIP Bodywork Therapist(s): Sahil Wiley MD, Inderjit Michelle MD (CHIP Fellow) HPI: 68-year-old male with a past medical history of T2DM, heart failure with preserved ejection fraction, CKD, hyperlipidemia and hypertension who initially presented to an outside hospital with 2 days of chest pain associated with worsening dyspnea. He was subsequently transferred to [facility] for further workup. 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 Transthoracic echocardiogram demonstrated an LVEF of 45 to 50%. He was then transferred to [facility] for CABG evaluation. Sadly, his about a [...] multivessel percutaneous coronary vascularization. Review of the [facility] angiogram demonstrates focal severe stenotic lesion in the circumflex obtuse marginal branch (moderate to large caliber vessel), severe focal mid LAD stenosis, FOAM DISPENSER of the mid RCA with retrograde filling [...] is to bring the patient to the Video Clerk for PCI to the LAD and circumflex on 10/23/2023. We will then consider a staged intervention of the RCA, likely as outpatient in the service of minimizing contrast adminstration in the setting of CKD. RCA FOAM DISPENSER will be a complex intervention. Labs from [...] with P2Y12 inhibitor. Inderjit Michelle MD PGY-8 CHIP-FOAM DISPENSER Fellow The patient's goals for the shift [...] self management Outcome: Progressing [id number] 1955 ADMIT DATE: 10/15/2023 11:30 PM DISCH DATE: RESPONDING PROVIDER #: [id number] PROVIDER RESPONSE TEXT: Acute on Chronic systolic [...] heart failure and NSTEMI with 3VD on [facility] and mild LV systolic dysfunction Documented Diagnosis: Acute on chronic systolic is documented in History and Physical on 10/15 and Acute on chronic systolic and diastolic heart failure is documented in Progress Notes, 10/16-10/18 Clinical Indicators and Documentation: -Vital Signs, 10/14 at 2354: [id number], SPO2 94 RA -ECHO: Per Progress Note, [...] morbid obesity, OA and CHF, presented to [facility] with two days of chest pain and worsening SOB and PARSONS. He states that he knows of his CHF for the past 20 years and had a LHC then that did not show obstructive CAD but does not remember if he did an echocardiography then or how much was his EF. At [place] [facility], he was desaturated with 70% O2 sat at RA and his troponin was uptrending. Therefore, he was transferred to [facility] for further workup and management. At [facility], he was treated with IV lasix with significant improvement of his SOB and volume status. He underwent a TTE that was reported to show an EF of 45-50% without significant valvular disease. He also underwent a LHC that showed 3VD with 70-80% stenosis of prox-mid LAD, 90% of OM1 and FOAM DISPENSER of prox RCA with collateral filling of the distal RCA from the left system. He was transferred to [facility] to be evaluated for CABG by CT [...] continue to monitor. documented in this encounter [facility] Work Phone: 10-23-2023 Plan of care [...] family/caregiver to ask for assistance with transferring infant if caregiver noted to have fall risk factors Instruct family/caregiver on patient safety [facility] 10-23-2023 Plan of care note Pt remained HDS and free of injury this shift. Pt had PCI with 2 stents placed to LAD. Pt currently has TR band on R radial incision - air to start being removed at 1914. Pt is potential discharge tomorrow. Problem: ACS/CP/NSTEMI/STEMI [...] by end of the shift Outcome: Progressing [facility] Work Phone: 10-23-2023 Hospital Discharge instructions Catia [...] for any reason without talking to your executive receptionist first. If any of these were prescribed, [...] have any concerns, you may contact the Video Clerk or if any of these symptoms become excessive, contact your executive receptionist or go to the emergency room. OTHER [...] through Care Everywhere.Heart Failure Discharge Instructions, Adult (Cuban)Coronary Artery Disease Discharge Instructions (Cuban)Coronary Stenting Discharge Instructions (Cuban)documented in this encounter [facility] Work Phone: 10-23-2023 Note Formatting of this n ote is different from the original. Physician Transition of Care Summary Invasive Cardiovascular Lab Procedure Date: 10/23/2023 Attending: * Sahil Sourav - Primary Resident/Fellow/Other Attorney Recruiter: Blaise Michelle Surgeons and Role: * No [...] 13mmHg Complications: Nil Stents/Implants: Implants Stent Stent, [place] [address] [place], 3.50 X 15rx - [id number] - Implanted Inventory item: STENT, SCOTT FRONTIER LISY, 3.50 X 15RX Model/Cat number: [id number] Cutting Torch Operator: Ahorro Libre Lot number: [id number] Device identifier: [id number] As of 10/23/2023 Status: Implanted Stent, Synergy Xd, Mr Us, 3.00 X 48mm - [id number] - Implanted Inventory item: STENT, SYNERGY XD, MR US, 3.00 X 48MM Model/Cat number: [id number] Cutting Torch Operator: Property [place]inte Lot number: [id number] Device identifier: [id number] As of 10/23/2023 Status: Implanted Anticoagulation/Antiplatelet Plan: Estimated Blood Loss: 5 mL Anesthesia: Moderate Sedation Anesthesia Staff: No anesthesia staff entered. Any Specimen(s) Removed: No specimens collected during this procedure. Disposition: Back to [facility] tomorrow Clinic follow up in 2-3 weeks Consideration of staged PCI to FOAM DISPENSER of the right DAPT for 12 months (prasugrel and aspirin) Electronically signed by: Abdoulaye Welsh MD, 10/23/2023 5:08 PM [facility] Work Phone: 10-23-2023 Note Formatting of this n ote might be different from the original. Sedation Plan ASA 3 Mallampati class: I. Risks, benefits, and alternatives discussed with patient. [facility] Work Phone: 10-23-2023 Attending History and physical [...] Morbid obesity, OA and CHF, presented to [facility] with two days of chest pain and worsening SOB and PARSONS. He states that he knows of his CHF for the past 20 years and had a LHC then that did not show obstructive CAD but does not remember if he did an echocardiography then or how much was his EF. At [place] ED, he was desaturated with 70% O2 sat at RA and his troponin was uptrending. Therefore, he was transferred to [facility] for further workup and management. At [facility], he was treated with IV lasix with significant improvement of his SOB and volume status. He underwent a TTE that was reported to show an EF of 45-50% without significant valvular disease. He also underwent a LHC that showed 3VD with 70-80% stenosis of prox-mid LAD, 90% of OM1 and FOAM DISPENSER of prox RCA with collateral filling of [...] of prox-mid LAD, 90% of OM1 and FOAM DISPENSER of prox RCA with collateral filling of [...] previous EF. - obtain TTE images from [facility] - was on IV lasix but looks like he is back to his baseline - will resume bumex 2mg #NSTEMI # 3VD - continue Heparin gtt, aspirin and statins - obtain LHC images from [facility] - CTS consult for CABG #DM [...] care of this patient. Jarrell Dale MD [facility] Work Phone: 10-23-2023 History and physical note [...] Morbid obesity, OA and CHF, presented to [facility] with two days of chest pain and worsening SOB and PARSONS. He states that he knows of his CHF for the past 20 years and had a LHC then that did not show obstructive CAD but does not remember if he did an echocardiography then or how much was his EF. At [place] [facility], he was desaturated with 70% O2 sat at RA and his troponin was uptrending. Therefore, he was transferred to [facility] for further workup and management. At [facility], he was treated with IV lasix with significant improvement of his SOB and volume status. He underwent a TTE that was reported to show an EF of 45-50% without significant valvular disease. He also underwent a LHC that showed 3VD with 70-80% stenosis of prox-mid LAD, 90% of OM1 and FOAM DISPENSER of prox RCA with collateral filling of [...] of prox-mid LAD, 90% of OM1 and FOAM DISPENSER of prox RCA with collateral filling of [...] previous EF. - obtain TTE images from [facility] - was on IV lasix but looks like he is back to his baseline - will resume bumex 2mg #NSTEMI # 3VD - continue Heparin gtt, aspirin and statins - obtain LHC images from [facility] - CTS consult for CABG #DM [...] Morbid obesity, OA and CHF, presented to [facility] with two days of chest pain and worsening SOB and PARSONS. He states that he knows of his CHF for the past 20 years and had a LHC then that did not show obstructive CAD but does not remember if he did an echocardiography then or how much was his EF. At [place] [facility], he was desaturated with 70% O2 sat at RA and his troponin was uptrending. Therefore, he was transferred to [facility] for further workup and management. At [facility], he was treated with IV lasix with significant improvement of his SOB and volume status. He underwent a TTE that was reported to show an EF of 45-50% without significant valvular disease. He also underwent a LHC that showed 3VD with 70-80% stenosis of prox-mid LAD, 90% of OM1 and FOAM DISPENSER of prox RCA with collateral filling of [...] of prox-mid LAD, 90% of OM1 and FOAM DISPENSER of prox RCA with collateral filling of [...] previous EF. - obtain TTE images from [facility] - was on IV lasix but looks like he is back to his baseline - will resume bumex 2mg #NSTEMI # 3VD - continue Heparin gtt, aspirin and statins - obtain LHC images from [facility] - CTS consult for CABG #DM [...] pain and PARSONS. He was transferred to [facility] where an echo showed EF 45-50% and LHC showed 3VD with reported 70-80% stenosis of the prox-mid LAD, 90% OM1 and FOAM DISPENSER of proximal RCA with left to right [...] Mario Heck MD documented in this encounter [facility] Work Phone: 10-23-2023 Note Formatting of this n ote might be different from the original. Sedation Plan ASA 3 Mallampati class: II. Risks, benefits, and alternatives discussed with patient. [facility] Work Phone: 10-23-2023 Plan of care [...] by end of the shift Outcome: Progressing [facility] 10-22-2023 Plan of care note Problem: [...] HDS, NPO at midnight for PCI tomorrow. [facility] 10-21-2023 Note Formatting of this n ote might be different from the original. Interventional Cardiology-Complex High Risk Coronary Intervention (CHIP) Update Note [facility] Bodywork Therapist(s): Sahil Wiley MD, Inderjit Michelle MD ([facility] Fellow) HPI: 68-year-old male with a past medical history of T2DM, heart failure with preserved ejection fraction, CKD, hyperlipidemia and hypertension who initially presented to an outside hospital with 2 days of chest pain associated with worsening dyspnea. He was subsequently transferred to [facility] for further workup. 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 Transthoracic echocardiogram demonstrated an LVEF of 45 to 50%. He was then transferred to [facility] for CABG evaluation. Sadly, his about a [...] multivessel percutaneous coronary vascularization. Review of the [facility] angiogram demonstrates focal severe stenotic lesion in the circumflex obtuse marginal branch (moderate to large caliber vessel), severe focal mid LAD stenosis, FOAM DISPENSER of the mid RCA with retrograde filling [...] is to bring the patient to the Video Clerk for PCI to the LAD and circumflex on 10/23/2023. We will then consider a staged intervention of the RCA, likely as outpatient in the service of minimizing contrast adminstration in the setting of CKD. RCA FOAM DISPENSER will be a complex intervention. Labs from [...] with P2Y12 inhibitor. Inderjit Michelle MD PGY-8 CHIP-FOAM DISPENSER Fellow [facility] Work Phone: 10-21-2023 Plan of care note The patient's goals for the shift include The clinical goals for the shift include SBP will remained <140 throughout this shift Over the shift, the patient remained safe and without injury. He did 4 lapse of walk through the klein during the shift. He awaits his PCI to be done on 10/22. [facility] 10-20-2023 Plan of care note The patient's goals for the shift include The clinical goals for the shift include Patient's SBP will be under 140 during shift Patient remained safe and free of falls during shift. No reports of pain during shift. Lisinopril added for BP control during shift and lantus dose increased. Awaiting staged PCI on 10/22. [facility] 10-20-2023 Plan of care note The [...] Progressing Goal: Promote self management Outcome: Progressing [facility] Work Phone: 10-19-2023 Note Formatting of this n ote might be different from the original. PATIENT: ITALIA ALLEN : 1955 ADMIT DATE: 10/15/2023 11:30 PM DISCH DATE: RESPONDING PROVIDER #: [id number] PROVIDER RESPONSE TEXT: Acute on Chronic systolic [...] heart failure and NSTEMI with 3VD on [facility] and mild LV systolic dysfunction Documented Diagnosis: Acute on chronic systolic is documented in History and Physical on 10/15 and Acute on chronic systolic and diastolic heart failure is documented in Progress Notes, 10/16-10/18 Clinical Indicators and Documentation: -Vital Signs, 10/14 at 2354: [id number], SPO2 94 RA -ECHO: Per Progress Note, [...] by: MARIO HECK MD 10/19/2023 4:59 PM [facility] Work Phone: 10-19-2023 Nurse Note Problem: Pt. Has been noted in progress notes to be labile in emotions. Assessment: Although initially quiet and talking in brief sentences, he began to reminisce. 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 Easton Rodrigues RN, PhD, ELEMENTARY SCHOOL DIRECTOR-GEM, CCRN [facility] Work Phone: 10-19-2023 Nurse Note Problem: Pt. Has been noted in progress notes to be labile in emotions. Assessment: Although initially quiet and talking in brief sentences, he began to reminisce. 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 Easton Rodrigues RN, PhD, ELEMENTARY SCHOOL DIRECTOR-JELENAS, CCRN documented in this encounter [facility] Work Phone: 10-19-2023 Plan of care note [...] Progressing Goal: Promote self management Outcome: Progressing [facility] Work Phone: 10-18-2023 Plan of care note [...] throughout the shift, and prepare for procedure. [facility] 10-18-2023 Plan of care note Problem: [...] po with relief. Will continue to monitor. [facility] Work Phone: 10-17-2023 Hospital Note Formatting of t his note might be different from the original. Italia Allen is a 68 y.o. male with PMH of HTN, HLD, DM2, morbid obesity, OA and CHF, presented to [facility] with two days of chest pain and worsening SOB and PARSONS. He states that he knows of his CHF for the past 20 years and had a LHC then that did not show obstructive CAD but does not remember if he did an echocardiography then or how much was his EF. At [place] [facility], he was desaturated with 70% O2 sat at RA and his troponin was uptrending. Therefore, he was transferred to [facility] for further workup and management. At [facility], he was treated with IV lasix with significant improvement of his SOB and volume status. He underwent a TTE that was reported to show an EF of 45-50% without significant valvular disease. He also underwent a LHC that showed 3VD with 70-80% stenosis of prox-mid LAD, 90% of OM1 and FOAM DISPENSER of prox RCA with collateral filling of the distal RCA from the left system. He was transferred to [facility] to be evaluated for CABG by CT [...] minutes were spent in coordinating patient discharge. [facility] Work Phone: 10-17-2023 Plan of care [...] mg po x 2 for back pain. [facility] Work Phone: 10-16-2023 Plan of care note The patient's goals for the shift include The clinical goals for the shift include therapeutic on heparin Over the shift, the patient did not make progress toward the following goals. Barriers to progression include subtherapeutic assay. 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s to address these barriers include every 4 hrs til therapeutic. [facility] 10-16-2023 Procedure note Procedure(s): SPIROMETRY Room Air ABG drawn and completed with Spirometry. [facility] 10-16-2023 Procedure note Procedure(s): SPIROMETRY Room Air ABG drawn and completed with Spirometry. documented in this encounter [facility] Work Phone: 10-16-2023 Consult note Associated Order (s): IP CONSULT TO CARDIOTHORACIC SURGERY Reason for Consult: CAD CARDIAC SURGERY CONSULT NOTE HISTORY OF PRESENT ILLNESS Italia Allen is a 68 y.o. male with PMH of HTN, HLD, DM2, Morbid obesity, OA and CHF who initially presented to [facility] with two days of chest pain and worsening SOB and PARSONS. At [place] [facility], he was desaturated with 70% O2 sat at RA and his troponin was uptrending. Therefore, he was transferred to [facility] for further workup and management. At [facility], he was treated with IV lasix with significant improvement of his SOB and volume status. He underwent a TTE that was reported to show an EF of 45-50% without significant valvular disease. He also underwent a LHC that showed 3VD with 70-80% stenosis of prox-mid LAD, 90% of OM1 and FOAM DISPENSER of prox RCA with collateral filling of the distal RCA from the left system. He was transferred to [facility] for a CABG evaluation. The patient states [...] Yellow, Dark-Yellow Appearance, Urine Clear Clear Specific [place], Urine 1.026 1.005 - 1.035 pH, Urine [...] 392 ms QTC Calculation(Bazett) 466 ms P [place] 40 degrees R [place] 54 degrees T [place] 51 degrees QRS Count 14 beats Q [...] OA and CHF who initially presented to [facility] with two days of chest pain and worsening SOB and PARSONS. At [place] [facility], he was desaturated with 70% O2 sat at RA and his troponin was uptrending. Therefore, he was transferred to [facility] for further workup and management. At [facility], he was treated with IV lasix with significant improvement of his SOB and volume status. He underwent a TTE that was reported to show an EF of 45-50% without significant valvular disease. He also underwent a LHC that showed 3VD with 70-80% stenosis of prox-mid LAD, 90% of OM1 and FOAM DISPENSER of prox RCA with collateral filling of the distal RCA from the left system. He was transferred to [facility] for a CABG evaluation. The patient states [...] Please page the cardiac surgery consult pager [phone] with any questions or changes in patient condition. Ru Elena PA-C Cardiac Surgery Consult SUDHIR [facility] Cardiac Surgery Consult Pager [phone] 10/16/2023 1:55 PM [facility] Work Phone: 10-16-2023 Consult note Associated Order (s): IP CONSULT TO CARDIOTHORACIC SURGERY Reason for Consult: CAD CARDIAC SURGERY CONSULT NOTE HISTORY OF PRESENT ILLNESS Italia Allen is a 68 y.o. male with PMH of HTN, HLD, DM2, Morbid obesity, OA and CHF who initially presented to [facility] with two days of chest pain and worsening SOB and PARSONS. At [place] [facility], he was desaturated with 70% O2 sat at RA and his troponin was uptrending. Therefore, he was transferred to [facility] for further workup and management. At [facility], he was treated with IV lasix with significant improvement of his SOB and volume status. He underwent a TTE that was reported to show an EF of 45-50% without significant valvular disease. He also underwent a LHC that showed 3VD with 70-80% stenosis of prox-mid LAD, 90% of OM1 and FOAM DISPENSER of prox RCA with collateral filling of the distal RCA from the left system. He was transferred to [facility] for a CABG evaluation. The patient states [...] Yellow, Dark-Yellow Appearance, Urine Clear Clear Specific [place], Urine 1.026 1.005 - 1.035 pH, Urine [...] 392 ms QTC Calculation(Bazett) 466 ms P [place] 40 degrees R [place] 54 degrees T [place] 51 degrees QRS Count 14 beats Q [...] OA and CHF who initially presented to [facility] with two days of chest pain and worsening SOB and PARSONS. At [place] [facility], he was desaturated with 70% O2 sat at RA and his troponin was uptrending. Therefore, he was transferred to [facility] for further workup and management. At [facility], he was treated with IV lasix with significant improvement of his SOB and volume status. He underwent a TTE that was reported to show an EF of 45-50% without significant valvular disease. He also underwent a LHC that showed 3VD with 70-80% stenosis of prox-mid LAD, 90% of OM1 and FOAM DISPENSER of prox RCA with collateral filling of the distal RCA from the left system. He was transferred to [facility] for a CABG evaluation. The patient states [...] Please page the cardiac surgery consult pager [phone] with any questions or changes in patient condition. Ru Elena PA-C Cardiac Surgery Consult [facility]UDHIR [facility] Cardiac Surgery Consult Pager [phone] 10/16/2023 1:55 PM documented in this encounter [facility] Work Phone: 10-16-2023 Plan of care [...] pain and headache. Will continue to monitor. [facility] Work Phone: 10-16-2023 History and physical note History Of Present Illness Italia Allen is a 68 y.o. male with PMH of HTN, HLD, DM2, Morbid obesity, OA and CHF, presented to [facility] with two days of chest pain and worsening SOB and PARSONS. He states that he knows of his CHF for the past 20 years and had a LHC then that did not show obstructive CAD but does not remember if he did an echocardiography then or how much was his EF. At [place] [facility], he was desaturated with 70% O2 sat at RA and his troponin was uptrending. Therefore, he was transferred to [facility] for further workup and management. At [facility], he was treated with IV lasix with significant improvement of his SOB and volume status. He underwent a TTE that was reported to show an EF of 45-50% without significant valvular disease. He also underwent a LHC that showed 3VD with 70-80% stenosis of prox-mid LAD, 90% of OM1 and FOAM DISPENSER of prox RCA with collateral filling of [...] of prox-mid LAD, 90% of OM1 and FOAM DISPENSER of prox RCA with collateral filling of [...] previous EF. - obtain TTE images from [facility] - was on IV lasix but looks like he is back to his baseline - will resume bumex 2mg #NSTEMI # 3VD - continue Heparin gtt, aspirin and statins - obtain LHC images from [facility] - CTS consult for CABG #DM [...] pain and PARSONS. He was transferred to [facility] where an echo showed EF 45-50% and LHC showed 3VD with reported 70-80% stenosis of the prox-mid LAD, 90% OM1 and FOAM DISPENSER of proximal RCA with left to right [...] reported baseline of 1.5. Mario Heck MD [facility] Work Phone: 10-15-2023 Discharge summary Note Date/Time October 15, 2023 6:18pm [facility] [address] [place] [address] Discharge Summary Signed Patient: Italia Allen MR#: [id number] : 1955 Acct:[id number] Age/Sex: 68 / M Adm Date: 4 Loc: Room: [address] [place] [address]: Yovanny Rivera MD Copies to: [...] II, HTN, obesity, HFpEF who presentsto the [place] emergency department with complaints of deep pain [...] recommended for transfer to tertiary care facility ([facility] under Dr. Galdamez) for likely [...] % (Auto) 74.1, Lymph % (Auto) 11.9, [place] % (Auto) 9.3, Eos % (Auto) 3.7, Baso % (Auto) 1.0, Nucleat RBC Rel Count 0.1, Neut # (Auto) 7.3, Lymph # (Auto) 1.2, [place] # (Auto) 0.9 H, Eos # (Auto) [...] signed by Yovanny Rivera MD> 10/15/23 1828 [facility] Work Phone: 1(165) 613-738008-26-2024 Progress note Author Ann Henao [facility] October 15, 2023 12:58pm Note Date/Time October 15, 2023 12 :57pm [facility] [address] [place] [address] Cardiology Progress Note Signed Patient: Italia Allen MR#: [id number] : 1955 Acct:[id number] Age/Sex: 68 / M Adm Date: 4 Loc: Room: [address] [place] [address] Type: ADM IN Attending Dr: Yovanny Rivera [...] MPV Neut % (Auto) Lymph % (Auto) [place] % (Auto) Eos % (Auto) Baso % (Auto) Nucleat RBC Rel Count Neut # (Auto) Lymph # (Auto) [place] # (Auto) Eos # (Auto) Baso # [...] % (Auto) 74.1 Lymph % (Auto) 11.9 [place] % (Auto) 9.3 Eos % (Auto) 3.7 Baso % (Auto) 1.0 Nucleat RBC Rel Count 0.1 Neut # (Auto) 7.3 Lymph # (Auto) 1.2 [place] # (Auto) 0.9 H Eos # (Auto) [...] MPV Neut % (Auto) Lymph % (Auto) [place] % (Auto) Eos % (Auto) Baso % (Auto) Nucleat RBC Rel Count Neut # (Auto) Lymph # (Auto) [place] # (Auto) Eos # (Auto) Baso # [...] signed by MD Ann Henao> 10/15/23 1258 [facility] Work Phone: 1(917) 900-688208-26-2024 [facility] History and physical note Author Alondra Gonzales [facility] October 14, 2023 3:57pm Note Date/Time October 14, 2023 9: 54am [facility] [address] [place] [address] Hospitalist H&P Signed Patient: Italia Allen MR#: [id number] : 1955 Acct:[id number] Age/Sex: 68 / M Adm Date: 4 Loc: Room: 9K2731-2 Type: ADM IN Attending Dr: Alondra Gonzales [...] He was brought as a transfer from [place] ED. As per ED note at [place],patient presented to the ED at [place] with chest pain, described as deep pain [...] or diaphoresis. He showed activity ED at [place] with oxygen saturation of 70% he was noticed to have bilateral lower extremity edema and he was started on BiPAP as well as was given IV Lopressor 1 dose and was started on heparin drip. His troponin wasuptrending EKG showed sinus tachycardia with no ischemic changes as per [facility] records(report not actual tracing). Labs: CBC showed [...] during my encounter with the pt [facility] Medical History Biceps muscle tear Cholecystectomy [...] 4 Documented By: Alondra Gonzales MD 10/14/23 6918 Signed By: <Electronically signed by Alondra Gonzales MD> 10/14/23 1439 [facility] [facility] Work Phone: 1(227) 471-283508-25-2024 Consult note Author Ann Henao [facility] October 14, 2023 2:55pm Note Date/Time October 14, 2023 2: 51pm [facility] [address] [place] [address] Cardiology Consult Note Signed Patient: Italia Allen MR#: [id number] : 1955 Acct:[id number] Age/Sex: 68 / M Adm Date: 4 Loc: Room: [address] [place] [address] Type: ADM IN Attending Dr: Alondra Gonzales MD Copies to: NON STAFF MD Ann Gordillo MD~ Cardiology HPI History of Present Illness Consult Date: 10/14/23 Reason for Consult: Cardiac consultation requested for evaluation for shortness of breath chest heaviness and acute coronary syndrome HPI: Mr. Allen is a 68 year old male who denies prior cardiac history presented to [place] emergency room complaining of increasing shortness of breath and chest heaviness. He was evaluated and felt to have evidence of acute coronary syndrome and heart failure and arrangement was made to transfer the patient to [facility] for further care. The patient reports historyof longstanding diabetes mellitus and hypertension. He report over the last fewweeks he has been describing decreased exercise tolerance and dyspnea on exertion. He has seen his family physician on several occasion with adjustment of his medication but without improvement. Prior to presentation to the emergency room at [place] he developed worsening shortness of breath and [...] system is negative other mentioned above [facility] Medical History Biceps muscle tear Cholecystectomy [...] (Auto) 0.9 L 0.9 L (1.00-4.8) x10E3/uL [place] # (Auto) 0.6 0.6 (0.0-0.8) x10E3/uL Eos [...] <Electronically signed by MD Ann Henao> 10/14/23 1455 [facility] Work Phone: Evaluation + Plan note Future Appointments Appointment Date:11/29/2023 03:00:00 PM Scheduled Provider: Location:[facility] Appointment Type:URO Nurse Visit Appointment Date:12/04/2023 03:00:00 PM Scheduled Provider:RADHA Grier APRN, [place] [facility] Location:[facility] Appointment Type:URO Office Visit [facility] Evaluation + Plan note Future Appointments Appointment Date:02/21/2024 11:00:00 AM Scheduled Provider:LILLIAM PHAM PA-C Location:[facility] Appointment Type:URO Office Visit [facility] evaluation + Plan note Future Appointments Appointment Date:02/26/2024 11:00:00 AM Scheduled Provider:LILLIAM PHAM PA-C Location:[facility] Appointment Type:URO Office Visit [facility] evaluation note* Diagnosis Onset Date Resolution Status ACS (acute coronary syndrome) acute Acute hypoxic respiratory failure acute Systolic CHF, acute on chronic acute [facility] Work Phone: Evaluation note* Diagnosis Dermatophytosis of nail- Primary Dystrophic nail Other specified disease of nail Angiopathy, diabetic (CMS/HCC) Type II or unspecified type diabetes mellitus with peripheral circulatory disorders, not stated as uncontrolled Diabetic polyneuropathy associated with type 2 diabetes mellitus (CMS/HCC) documented in this encounter [facility]* Diagnosis NSTEMI (non-ST elevated myocardial [...] region and thigh documented in this encounter [facility] Work Phone: Evaluation note* Diagnosis Acute on chronic systolic (congestive) heart failure (Multi)- Primary CAD, multiple vessel Acute on chronic systolic (congestive) heart failure (Multi) NSTEMI (non-ST elevated myocardial infarction) (Multi) Acute myocardial infarction, subendocardial infarction, episode of care unspecified Shortness of breath Other disorders of arteries, arterioles and capillaries in diseases classified elsewhere ([facility]-H[facility]) Peripheral vascular disease, unspecified ([facility]) Peripheral vascular disease, unspecified Encounter for preprocedural [...] with depressed mood documented in this encounter [facility] Work Phone: Evaluation note* Diagnosis CAD, multiple vessel- Primary Primary hypertension Unspecified essential hypertension Chronic systolic heart failure (Multi) Chronic systolic heart failure BMI 36.0-36.9,adult Stage 3a chronic kidney disease (Multi) Right carotid artery occlusion Edema, unspecified type documented in this encounter [facility] Work Phone: Evaluation note* Diagnosis Chronic low back pain without sciatica, unspecified back pain laterality- Primary Primary hypertension Unspecified essential hypertension Edema, unspecified type documented in this encounter [facility] Work Phone: Hospital course Narrative No data available for this section [facility] Hospital Discharge instructions Additional Instructions Full code [facility] Work Phone: Hospital Discharge instructions No data available for this section [facility] Progress note No data available for this section [facility] Reason for referral (narrative)* Consultation (Routine) - Authorized Specialty Diagnoses / Procedures Referred By Genna t Referred To Contact Cardiology Diagnoses CAD, multiple vessel Procedures Follow Up In Cardiology Ann Henao MD [address] [facility] [address], [address] [address] Ann Henao MD [facility] [facility] [address], [address] [address] Referral ID Status Reason Start Date Expiration Date V isits Requested Visits Authorized [id number] Authorized 11/02/2023 11/01/2024 1 1 [facility] Work Phone: reason for visit Narrative* Auth/Cert Specialty Diagnoses / Procedures Referred By Genna t Referred To Contact Diagnoses Syncope/NSTEMI Procedures N/A Foster Nolan MD [address] [place] [id number] Phone: tel: fax: [facility] [id number] [place] [address] Referral ID Status Reason Start Date Expiration Date Visits Re quested Visits Authorized [id number] 1 1 [facility] Work Phone: Reason for visit Narrative* Auth/Cert Specialty Diagnoses / Procedures Referred By Contac t Referred To Contact Diagnoses cabg [place]derjit Hernandez [place] PhD [id number] [place] [address] [facility] [address] [place] [address] Referral ID Status Reason Start Date Expiration Date Visits Re quested Visits Authorized [id number] [facility] Work Phone: Chief Complaint and Reason for [...] Procedures [place] [address] [facility] Medicine-Cardiovascular Medicine/[place] [address] Referral ID Status Reason Start Date Expiration Date V isits Requested Visits Authorized [id number] Authorized 11/13/2023 11/12/2024 1 1 Specialty Diagnoses / Procedures Referred By Contac t Referred To Contact Procedures ECG 12 Lead Inderjit Michelle MD [address] [place] [address]-Cardiovascular Medicine/[place] [address] Referral ID Status Reason Start Date Expiration Date V isits Requested Visits Authorized [id number] Authorized 11/13/2023 11/12/2024 1 1 Additional Source [...] October 14, 2023 End: October 15, 2023 Bottle Labeler Relationship Specialty Start Date End Date Siobhan Forde RN Care Plate Grainer 10/25/23 Bottle Labeler Relationship Specialty Start Date End Date Siobhan Forde RN Care Plate Grainer 10/25/23 (unrecognized sect ion and content) No Status Records FoundNo Status Records FoundNo Status Records FoundNo Status Records FoundNo Status Records FoundNo Status Records Found INFORMATION SOURCE (unrecogn ized section and content) DATE CREATED AUTHOR 10/19/2023 [facility] DATE CREATED AUTHOR AUTHOR'S ORGANIZ ATION 11/10/2023 [facility] DATE CREATED AUTHOR AUTHOR'S ORGANIZ ATION 12/01/2023 [facility] EPIC DATE CREATED AUTHOR AUTHOR'S ORGANIZ ATION 12/29/2023 [facility] DATE CREATED AUTHOR AUTHOR'S ORGANIZ ATION 12/30/2023 [facility] DATE CREATED AUTHOR AUTHOR'S ORGANIZ ATION 03/10/2024 [facility] Reason for Visit (unrecogniz ed section and content) Reason Comments 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 40 224 (Given - Provider: Linh Genao LPN - Comment: nurse workflow) 2123 (Given - Provider: Lulú Rosas, SWAPNIL) 2100 [...] Rosas RN) 0907 (Given - Provider: Quynh Hanesn RN)2107 (Given - Provider: Lulú Rosas RN) [...] pain scores based on patient preference? Yes 8088 (Given - Provider: Linh Genao LPN) 0637 (Given - Provider: Lulú Rosas, SWAPNIL)1212 (Given - Provider: Bessie Crowley, SWAPNIL) dextrose 50 % injection 10-50 mL 10-50 [...] back 1040 (Given - Provider: Quynh Hansen, SWAPNIL) fentaNYL PF (Sublimaze) injection (COMPLETED) intravenous, As needed, Starting on Sun12/26/23 at 1704, Intraprocedure 1704 (Given - Provider: Awais Quiles RN)170 (Given - Provider: Awais Quiles, SWAPNIL)171 [...] at 1115 2108 (Given - Provider: Lulú Rosas, RN) midazolam (Versed) injection (COMPLETED) As needed, Starting [...] 1100, For 3 days, Release result to [facility]: Immediate, Please ensure POCT glucose lab frequency matches the insulin lispro frequency above. Scheduled Medication Order 10/22/2023 10/23/2023 10/24/2023 aspirin chewable tablet 81 mg 81 mg, oral, Daily, First dose on Sun10/16/23 at 0900 0824 (Given - Provider: Nesha Patel RN) 818 (Given - Provider: Christine Coyne RN) 827 (Given - Provider: Christine Coyne RN) atorvastatin (Lipitor) tablet 80 mg 80 [...] 2053 (Given - Provider: Lulú Rosas, SWAPNIL) 2100 (Due) insulin glargine (Lantus) injection 30 Units [...] unheld 08 (Given - Provider: Nesha Patel RN)1113 (Held by provider - Provider: Italia Cabrera, ELEMENTARY SCHOOL DIRECTOR-AMERICAN HISTORY TEACHER, DNP - Reason: NPO) 0900 (Not Given [...] - Provider: Christine Coyne RN - Reason: NPO)2057 (Not Given - Provider: Lulú Rosas RN [...] For 365 days 0819 (Given - Provider: Christine Coyne RN) [...] Lulú Rosas, SWAPNIL) Continuous Medication Order 10/22/2023 10/23/202310/24/2023 sodium chloride 0.9% infusion () 125 mL/hr, intravenous, Continuous, Starting on Sun10/23/23 at 1115, For 3 hours 1126 (New Bag - Provider: Jostin Villalobos, SWAPNIL)1413 (Stopped - Provider: Christine Coyne, RN) PRN [...] Umana RN)1609 (Given - Provider: Samara Umana, SWAPNIL)1626 (Given - Provider: Samara Umana RN) glucagon [...] pain scores based on patient preference? Yes 003 (Given - Provider: Ifrah Snell RN)0824 (Given - Provider: Nesha Patel RN)175 (Given - Provider: Nesha Patel RN) 0826 (Given - Provider: Christine Coyne RN)1830 (Given - Provider: Christine Coyne RN) [...] BE BASED ON THE PRIMARY CLINICAL RECORDS. [employer] provides no warranty or guarantee of the accuracy or completeness of information in this document.
[2024-04-03 07:20] VITALS: BP 170/80; PULSE 111; TEMP 36.4; O2SAT 94
[2024-04-03 08:14] VITALS: BP 152/74; PULSE 105; O2SAT 94
[2024-04-03] MEDS: LIDOCAINE 2% JELLY 10 ML UR (08:20)
[2024-04-03 08:30] VITALS: BP 137/67; PULSE 106; O2SAT 94
--- NOTE | 2024-04-03 08:41 | PM.URSON ---
Urology Surgery Operative Note Operative Note Procedure Date: 04/03/24 Time Out Performed: yes Pre-op Diagnosis: Urinary retention and elevated PSA Post-op Diagnosis: same as pre-op Procedures performed: 1. Cystoscopy. 2. Digital rectal exam Anesthesia: local Primary Surgeon: Rahul Orozco Complications: None Estimated blood loss (mL): 0 Findings: 1. Open prostate. 2. No bladder tumors. 3. Hard prostate by АННА Specimens: None Drains: 18 Armenian Seals catheter in the bladder Indications for Procedures: This gentleman has recurrent urinary retention for which she has a Seals catheter indwelling. He also was found to have a PSA of 30. He now presents for cystoscopy and АННА. He has signed an informed consent after risks were explained. Detailed description of Procedure: The patient was kept on the gurney bed and brought into the endoscopy suite. He was in the supine position. Timeout was done by all parties in the room. Genitalia were sterilely prepped and draped in the usual fashion. 2% lidocaine was passed per urethra. I started by passing a flexible cystoscope per urethra and into the bladder. The anterior urethra was normal. The prostatic urethra showed bilobar hypertrophy but no evidence of obstruction. Careful panendoscopy in the bladder revealed high-grade trabeculation with open diverticuli diffusely. No evidence of tumors were noted. The scope was then removed. A new 18 Armenian Seals catheter was then placed in the bladder and 10 cc of fluid was placed in the balloon after it drained clear. The patient was then rotated on his side. A digital exam was done and this revealed a hard prostate of 35 g. Impression #1. This gentleman has bladder dysfunction and will require continuous catheterization chronically. 2. This gentleman most likely has prostate cancer. Plan: #1. The Seals catheter should be changed monthly. 2. We will work on getting him set up for a transrectal ultrasound with biopsies of the prostate.
== END 2024-04-03 08:49 | disposition home or self-care (01) ==
PROVIDERS: PCP Nurse Practitioner Family; Visit Provider Urology
PROC: (CPT 52000; principal; 2024-04-03 08:00)
DX: R33.9 Retention of urine, unspecified (principal); I10 Essential (primary) hypertension; I25.2 Old myocardial infarction; E11.9 Type 2 diabetes mellitus without complications; N32.89 Other specified disorders of bladder; N40.1 Benign prostatic hyperplasia with lower urinary tract symptoms; E78.00 Pure hypercholesterolemia, unspecified; K21.9 Gastro-esophageal reflux disease without esophagitis; I25.10 Atherosclerotic heart disease of native coronary artery without angina pectoris; Z90.49 Acquired absence of other specified parts of digestive tract; Z79.84 Long term (current) use of oral hypoglycemic drugs; Z87.891 Personal history of nicotine dependence; N42.89 Other specified disorders of prostate
CPT/HCPCS: 52000

== ENCOUNTER 2024-04-24 19:25 | Emergency (ER) | payer OTHER, SELFPAY ==
[2024-04-24] VITALS (45 sets, daily range): BP systolic 89–138; BP diastolic 60–91; PULSE 103–115; RESP 16; TEMP 36.3–37.5; O2SAT 42–99; BMI 26.6
--- NOTE | 2024-04-24 19:28 | ECG_ITS ---
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 Measurements Intervals Harvest Rate: 111 P: 30 MI: 174 QRS: 72 QRSD: 104 T: 254 QT: 332 QTc: 398 Interpretive Statements 1120 Sinus tachycardia [address] depression 4564 Twave abnormality, possible lateral ischemia 4664 Twave abnormality, possible inferior ischemia 9150 abnormal ECG Compared to ECG 02/06/2024 11:00:55 ST (T wave) deviation now present Possible ischemia now present Electronically Signed On 04-24-2024 20:34:15 EST by ASTON JONES M.D.
--- NOTE | 2024-04-24 19:30 | ED_ITS ---
Documented by User: MEGGAN Anderson 04/24/24 21:59 HPI HPI - General Adult General Chief complaint: Shortness of Breath/Dyspnea Stated complaint: DIFF BREATHING Time Seen by Provider: 04/24/24 19:28 Source: patient History of Present Illness HPI narrative: Patient is a 68-year-old male with a history of coronary artery disease, CHF, frequent falls who currently is a resident at the [facility] presents to the ER by ambulance for increasing shortness of breath, chest congestion. Nursing report provides the majority of the history, patient is audibly wheezing with crackles at time of arrival by EMS. He does not typically wear oxygen, for the last several days he has been wearing oxygen by nasal cannula at 2 L. He has had a cough for the last week, 2 days ago he got worse and was seen by the attending physician at the facility who ordered a chest x-ray. This showed questionable pneumonia which was treated with doxycycline, patient has been taking doxycycline for the last 2 days. [facility] staff felt his cough and shortness of breath were worsening which brought him to the emergency department, he was hypoxic on nasal cannula at 2 L, approximately 88%. On arrival, patient is awake and alert, slow to answer questions. He denies chest pain. He is a poor historian. He is a DNR [facility]fort Care arrest Related Data Home Medications ?Medication ?Instructions ?Recorded ?Confirmed atorvastatin 80 mg tablet 80 mg PO DAILY 11/19/23 04/24/24 nitroglycerin 0.4 mg sublingual 0.4 mg sublingual Q5M PRN chest 11/19/23 04/24/24 tablet pain prasugrel HCl 10 mg tablet 10 mg PO DAILY 11/19/23 04/24/24 bumetanide 2 mg tablet 1 mg PO QAM 01/27/24 04/24/24 omeprazole 40 mg capsule,delayed 40 mg PO DAILY 01/27/24 04/24/24 release sertraline 100 mg tablet 100 mg PO QAM 01/27/24 04/24/24 spironolactone 25 mg tablet 50 mg PO DAILY 01/27/24 04/24/24 mirtazapine 15 mg tablet (Remeron) 15 mg PO DAILY 02/06/24 04/24/24 bupropion HCl 300 mg 24 hr tablet, 300 mg PO QAM 02/21/24 04/24/24 extended release (Wellbutrin XL) melatonin 5 mg capsule 5 mg PO DAILY 02/21/24 04/24/24 metoclopramide HCl 5 mg tablet 5 mg PO BID 02/21/24 04/24/24 (Reglan) midodrine 5 mg tablet 5 mg PO BID 02/21/24 04/24/24 acetaminophen 500 mg capsule 500 mg PO Q6H PRN fever or pain 04/24/24 04/24/24 budesonide 0.5 mg/2 mL suspension 0.5 mg inhalation BID 04/24/24 04/24/24 for nebulization (Pulmicort) calcium carbonate (Tums) 200 mg PO TID 04/24/24 04/24/24 doxycycline hyclate 100 mg capsule 100 mg PO BID 04/24/24 04/24/24 ipratropium bromide 17 1 inh inhalation Q6H 04/24/24 04/24/24 mcg/actuation HFA aerosol inhaler (Atrovent HFA) iron polysacch cplx 150 mg 2 cap PO DAILY 04/24/24 04/24/24 iron-vit B12 25 mcg-folic acid 1 mg capsule (Ferrex) ondansetron 4 mg disintegrating 4 mg PO Q6H 04/24/24 04/24/24 tablet polyethylene glycol 3350 17 17 g PO BID PRN constipation 04/24/24 04/24/24 gram/dose oral powder (Miralax) Allergies Allergy/AdvReac Type Severity Reaction Status Date / Time No Known Drug Allergies Allergy Verified 02/29/24 06:20 Opioid HPI Opioid Management Most Recent Opioid Data: Last Pain Scale 5 01/30/24 12:00 01/30/24 Last Pain Intensity 7 01/29/24 09:25 01/29/24 Last ORT Total Score 0 01/27/24 15:35 01/27/24 Last ORT Risk Category Low Risk 01/27/24 15:35 01/27/24 Review of Systems ROS Constitutional Denies: fever or chills Ears, nose, mouth, and throat Reports: nasal congestion Cardiovascular Denies: chest pain Respiratory Reports: shortness of breath, cough, wheezing and chest congestion; Denies: change in phlegm color Gastrointestinal Denies: nausea, vomiting or diarrhea Integumentary/Breast Denies: rash Hematologic/Lymphatic Denies: easy bruising or easy bleeding PFSH PFS Medical History (Updated 04/24/24 @ 21:59 by MEGGAN Anderson) Kidney stones ?N20.0 - Calculus of kidney (ICD-10) Depression ?F32.A - Depression, unspecified (ICD-10) Hyperlipidemia ?E78.5 - Hyperlipidemia, unspecified (ICD-10) Arthritis ?M19.90 - Unspecified osteoarthritis, unspecified site (ICD-10) BPH (benign prostatic hyperplasia) ?N40.0 - Benign prostatic hyperplasia without lower urinary tract symptoms (ICD-10) Acute urinary retention ?R33.8 - Other retention of urine (ICD-10) Non-ST elevation (NSTEMI) myocardial infarction ?I21.4 - Non-ST elevation (NSTEMI) myocardial infarction (ICD-10) Syncope and collapse ?R55 - Syncope and collapse (ICD-10) Chronic respiratory failure with hypoxia ?J96.11 - Chronic respiratory failure with hypoxia (ICD-10) CKD stage 3 due to type 2 diabetes mellitus ?E11.22 - Type 2 diabetes mellitus with diabetic chronic kidney disease (ICD- 10) ?N18.30 - Chronic kidney disease, stage 3 unspecified (ICD-10) CAD (coronary artery disease) ?I25.10 - Atherosclerotic heart disease of [place] coronary artery without angina pectoris (ICD-10) Diabetes ?E11.9 - Type 2 diabetes mellitus without complications (ICD-10) Hypertension ?I10 - Essential (primary) hypertension (ICD-10) CHF (congestive heart failure) ?I50.9 - Heart failure, unspecified (ICD-10) Surgical History (Updated 03/27/24 @ 13:47 by Mala Calabrese RN) Hx of tonsillectomy ?Z90.89 - Acquired absence of other organs (ICD-10) Hx of cholecystectomy ?Z90.49 - Acquired absence of other specified parts of digestive tract (ICD- 10) H/O heart artery stent ?Z95.5 - Presence of coronary angioplasty implant and graft (ICD-10) Family History Mother Family history of CHF (congestive heart failure) Family history of diabetes mellitus Father Family history of cancer Social History Within the past year, how often did you have a drink containing alcohol: monthly or less Smoking status: Never smoker Non-prescribed substance use: denies use Previous occupational history: retired Highest level of school completed/degree received: high school graduate Are you now , , , , never or living with a partner: In a typical week, how many times do you talk on the telephone with family, friends, or neighbors: 3 or more times per week How often do you get together with friends or relatives: 3 or more times per week How often do you attend sikhism or rastafarian services: never Little interest or pleasure in doing things: not at all Feeling down, depressed, or hopeless: not at all Feel stressed/tense/nervous/anxious/difficulty sleeping: not at all Do you think of yourself as: straight/heterosexual Gender Identity: male Exam Narrative Exam Narrative: Gen.: Awake, alert Head: Normocephalic, atraumatic ENT: Moist mucous membranes Respiratory: Patient with audible crackles and wheezing, tachypnea noted. Cardio: Regular rate and rhythm Gastrointestinal: Abdomen is soft, nondistended and nontender to palpation Extremities: Moves extremities equally Psych: Normal mood and affect Neuro: No focal neuro deficit Skin: Warm, dry, intact Constitutional Vital Signs, click to edit/add: Last Vital Signs Temp 97.8 F 04/24/24 22:33 Pulse 104 H 04/24/24 22:33 Resp 20 04/24/24 22:33 BP 126/81 04/24/24 23:12 Pulse Ox 97 04/24/24 22:32 O2 Del Method Nasal Cannula 04/24/24 20:16 O2 Flow Rate 2 04/24/24 20:16 FiO2 30 04/24/24 20:09 Course Vital Signs Vital signs: Vital Signs Temperature 99.5 F 04/24/24 19:34 Pulse Rate 110 H 04/24/24 19:34 Respiratory Rate 28 H 04/24/24 19:34 Blood Pressure 89/62 04/24/24 19:34 Pulse Oximetry 91 L 04/24/24 19:34 Oxygen Delivery Method Nasal Cannula 04/24/24 19:34 Oxygen Delivery Flow Rate 2 04/24/24 19:34 Temperature 97.8 F 04/24/24 22:33 Pulse Rate 104 H 04/24/24 22:33 Respiratory Rate 20 04/24/24 22:33 Blood Pressure 126/81 04/24/24 23:12 Pulse Oximetry 97 04/24/24 22:32 Oxygen Delivery Method Nasal Cannula 04/24/24 20:16 Oxygen Delivery Flow Rate 2 04/24/24 20:16 Fraction of Inspired Oxygen 30 04/24/24 20:09 Medical Decision Making MDM Narrative Medical decision making narrative: 2101: on arrival to the emergency department, patient was in mild respiratory distress with tachypnea noted although he had no significant hypoxia. He arrived on 2 L nasal cannula and was almost immediately placed on BiPAP with improvement of his breathing. He maintained his oxygen saturation in the ER and had improvement of tachypnea with BiPAP. He has no complaints of chest pain. His EKG shows T wave inversion and ST depression with no acute ST elevation. Sepsis labs were ordered including blood cultures and sputum culture. Respiratory swabs are negative and the patient is found to have leukocytosis with stable anemia, he has been anemic for several months at this facility. Hemoglobin 7.1. Patient's blood pressure is normal in the ER, chest x-ray obtained showing multifocal pneumonia. Initial labs show the patient has elevated BUN at 83, creatinine 4.06 with elevated troponin over 600 and BNP greater than 35,000. Heparin is deferred at this time as we suspect the elevated troponin is secondary to acute kidney injury and elevated BNP, however given the patient's history of non-STEMI and coronary artery disease with CHF, he is not appropriate to stay at this facility. We will pursue a transfer to [facility] where the patient has been seen by cardiology before. Patient is agreeable to this. A unit of blood was ordered for the patient with Zosyn, vancomycin given for antibiotic coverage. 8: Patient's power of commercial litigation attorney, Antony was contacted and he is in agreement with treatment plan for transfer. 3: Blood initiated for the patient, he is unable to sign the blood consent however he verbalizes agreement with the transfusion and received a transfusion similarly twice in February. Patient's power of commercial litigation attorney, Antony, was also made aware of the blood transfusion over the phone and was in agreement with this. Blood consent was signed by myself and nursing with consent from the patient verbally. 2155: Case is turned over to attending physician for further management and disposition at this time. SHARED APC VISIT, PHYSICIAN ATTESTATION: [id number] I performed a substantive part of the MDM during the patient?s E/M visit. I personally evaluated and examined the patient. I personally made or approved the documented management plan and acknowledge its risk of complications. Medical Records Medical records reviewed: Yes I reviewed the patient's medical records Lab Data Lab results reviewed: Yes I reviewed the patient's lab results Labs: Lab Results 04/24/24 04/24/24 04/24/24 Range/Units 19:46 19:51 20:08 WBC 22.5 H (4.0-11.0) 10^3/uL RBC 2.99 L (4.70-6.10) 10^6/uL Hgb 7.1 L (14.0-18.0) g/dL Hct 24.6 L (42.0-54.0) % MCV 82.3 (80.0-94.0) fL MCH 23.7 L (25.9-34.0) pg MCHC 28.9 L (29.9-35.2) g/dL RDW 18.7 H (11.0-15.0) % Plt Count 590 H (150-450) 10^3/uL MPV 9.5 (9.5-13.5) fL Seg Neuts % (Manual) 93.0 H (43.0-75.0) Band Neutrophils % 1.0 (0-5) % Lymphocytes % (Manual) 1.0 L (20.5-60.0) % Monocytes % (Manual) 2.0 (1.7-12.0) % Eosinophils % (Manual) 3.0 (0.9-7.0) % Basophils % (Manual) 0.0 L (0.2-2.0) % Neutrophils # (Manual) 20.92 H (1.4-6.5) 10^3/uL Band Neutrophils # 0.2 (0.0-0.3) 10^3/uL Lymphocytes # (Manual) 0.22 L (1.20-3.80) 10^3/uL Monocytes # (Manual) 0.45 (0.30-0.80) 10^3/uL Eosinophils # (Manual) 0.67 (0.00-0.70) 10^3/uL Basophils # (Manual) 0.00 (0.00-0.10) 10^3/uL RBC Morphology Microcytic 2+ Hypochromasia 2+ PT 12.4 H (9.0-11.6) sec INR 1.19 VBG pH 7.379 (7.330-7.430) VBG pCO2 43.2 (40.0-52.0) mmHg Sodium 140 (136-145) mmol/L Potassium 5.2 H (3.5-5.1) mmol/L Chloride 102 (98-107) mmol/L Carbon Dioxide 25.6 (21.0-32.0) mmol/L Anion Gap 17.6 BUN 83.0 H* (7.0-18.0) mg/dL Creatinine 4.04 H (0.70-1.30) mg/dL Est GFR ( Amer) 18 L (>=60 mL/min/1.73m^2) Est GFR (Non-Af Amer) 15 L (>=60 mL/min/1.73m^2) BUN/Creatinine Ratio 20.5 Glucose 237 H (74-106) mg/dL Lactate 2.1 H (0.4-2.0) mmol/L Calcium 8.9 (8.5-10.1) mg/dL Magnesium 2.4 (1.8-2.4) mg/dL Total Bilirubin 0.3 (0.2-1.0) mg/dL AST 53 H (15-37) U/L ALT 56 (16-63) U/L Alkaline Phosphatase 134 H (46-116) U/L Troponin I High Sens 640.4 H* (4.0-76.1) pg/mL NT-Pro-B Natriuret Pep >40547.0 H* (<=900.0) pg/mL Total Protein 6.8 (6.4-8.2) g/dL Albumin 2.2 L (3.4-5.0) g/dL Globulin 4.6 g/dL Albumin/Globulin Ratio 0.5 Urine Color Lt. yellow (YELLOW) Urine Clarity Sl cloudy (CLEAR) Urine pH 5.5 (5.0-9.0) Ur Specific [place] 1.025 (1.005-1.025) Urine Protein 30 A (NEG/TRACE) mg/dL Urine Glucose (UA) Negative (NEGATIVE) mg/dL Urine Ketones Negative (NEGATIVE) mg/dL Urine Occult Blood Trace-i (NEGATIVE) Urine Nitrite Positive A (NEGATIVE) Urine Bilirubin Negative (NEGATIVE) Urine Urobilinogen 0.2 (0.2-1.0) EU/dL Ur Leukocyte Esterase Small A (NEGATIVE) Urine RBC 0-2 (0-2) #/HPF Urine WBC 10-20 A (NONE SEEN) #/HPF Ur Squamous Epith Cells None seen (NONE/RARE) #/LPF Urine Crystals None seen (None Seen) #/HPF Urine Bacteria Moderate A (NONE SEEN) #/HPF Urine Casts None seen (NONE SEEN) #/LPF Urine Mucus None seen (NONE SEEN) Ur Culture Indicated? Yes-[facility] [place] Influenza Type A Ag Negative Influenza Type B Ag Negative SARS-CoV-2 Ag (CV2AG) Negative (NEGATIVE) Blood Type A Positive Antibody Screen Negative Crossmatch See Detail 04/24/24 Range/Units 21:10 WBC (4.0-11.0) 10^3/uL RBC (4.70-6.10) 10^6/uL Hgb (14.0-18.0) g/dL Hct (42.0-54.0) % MCV (80.0-94.0) fL MCH (25.9-34.0) pg MCHC (29.9-35.2) g/dL RDW (11.0-15.0) % Plt Count (150-450) 10^3/uL MPV (9.5-13.5) fL Seg Neuts % (Manual) (43.0-75.0) Band Neutrophils % (0-5) % Lymphocytes % (Manual) (20.5-60.0) % Monocytes % (Manual) (1.7-12.0) % Eosinophils % (Manual) (0.9-7.0) % Basophils % (Manual) (0.2-2.0) % Neutrophils # (Manual) (1.4-6.5) 10^3/uL Band Neutrophils # (0.0-0.3) 10^3/uL Lymphocytes # (Manual) (1.20-3.80) 10^3/uL Monocytes # (Manual) (0.30-0.80) 10^3/uL Eosinophils # (Manual) (0.00-0.70) 10^3/uL Basophils # (Manual) (0.00-0.10) 10^3/uL RBC Morphology Hypochromasia PT (9.0-11.6) sec INR VBG pH (7.330-7.430) VBG pCO2 (40.0-52.0) mmHg Sodium (136-145) mmol/L Potassium (3.5-5.1) mmol/L Chloride (98-107) mmol/L Carbon Dioxide (21.0-32.0) mmol/L Anion Gap BUN (7.0-18.0) mg/dL Creatinine (0.70-1.30) mg/dL Est GFR ( Amer) (>=60 mL/min/1.73m^2) Est GFR (Non-Af Amer) (>=60 mL/min/1.73m^2) BUN/Creatinine Ratio Glucose (74-106) mg/dL Lactate (0.4-2.0) mmol/L Calcium (8.5-10.1) mg/dL Magnesium (1.8-2.4) mg/dL Total Bilirubin (0.2-1.0) mg/dL AST (15-37) U/L ALT (16-63) U/L Alkaline Phosphatase (46-116) U/L Troponin I High Sens 651.9 H* (4.0-76.1) pg/mL NT-Pro-B Natriuret Pep (<=900.0) pg/mL Total Protein (6.4-8.2) g/dL Albumin (3.4-5.0) g/dL Globulin g/dL Albumin/Globulin Ratio Urine Color (YELLOW) Urine Clarity (CLEAR) Urine pH (5.0-9.0) Ur Specific [place] (1.005-1.025) Urine Protein (NEG/TRACE) mg/dL Urine Glucose (UA) (NEGATIVE) mg/dL Urine Ketones (NEGATIVE) mg/dL Urine Occult Blood (NEGATIVE) Urine Nitrite (NEGATIVE) Urine Bilirubin (NEGATIVE) Urine Urobilinogen (0.2-1.0) EU/dL Ur Leukocyte Esterase (NEGATIVE) Urine RBC (0-2) #/HPF Urine WBC (NONE SEEN) #/HPF Ur Squamous Epith Cells (NONE/RARE) #/LPF Urine Crystals (None Seen) #/HPF Urine Bacteria (NONE SEEN) #/HPF Urine Casts (NONE SEEN) #/LPF Urine Mucus (NONE SEEN) Ur Culture Indicated? Influenza Type A Ag Influenza Type B Ag SARS-CoV-2 Ag (CV2AG) (NEGATIVE) Blood Type Antibody Screen Crossmatch Imaging Data Chest x-ray: Attestation: I have reviewed the pertinent imaging results. ECG Data Attestation: I personally reviewed and interpreted this ECG as follows: (Sinus tachycardia at a rate of 111, no acute ST elevation, moderate global ST depression with T wave inversion in leads II, III, V4, V5, V6. EKG was reviewed by attending physician) Critical Care Time Critical Care Time Critical Care Time: Yes Total Critical Care Time: 35 Attestation: 35 minutes of critical care time assessed for management of this sepsis, anemia with transfer to tertiary care Discharge Plan Discharge Chief Complaint: Shortness of Breath/Dyspnea Clinical Impression: Shortness of breath, CHF (congestive heart failure), Pneumonia, Sepsis, Non- STEMI (non-ST elevated myocardial infarction), Acute kidney injury, Anemia Patient Disposition: [facility] Time of Disposition Decision: 21:58 Documented by User: Rebecca Montemayor MD 04/24/24 23:23 HPI HPI - General Adult General Chief complaint: Shortness of Breath/Dyspnea Stated complaint: DIFF BREATHING Time Seen by Provider: 04/24/24 19:28 Related Data Home Medications ?Medication ?Instructions ?Recorded ?Confirmed atorvastatin 80 mg tablet 80 mg PO DAILY 11/19/23 04/24/24 nitroglycerin 0.4 mg sublingual 0.4 mg sublingual Q5M PRN chest 11/19/23 04/24/24 tablet pain prasugrel HCl 10 mg tablet 10 mg PO DAILY 11/19/23 04/24/24 bumetanide 2 mg tablet 1 mg PO QAM 01/27/24 04/24/24 omeprazole 40 mg capsule,delayed 40 mg PO DAILY 01/27/24 04/24/24 release sertraline 100 mg tablet 100 mg PO QAM 01/27/24 04/24/24 spironolactone 25 mg tablet 50 mg PO DAILY 01/27/24 04/24/24 mirtazapine 15 mg tablet (Remeron) 15 mg PO DAILY 02/06/24 04/24/24 bupropion HCl 300 mg 24 hr tablet, 300 mg PO QAM 02/21/24 04/24/24 extended release (Wellbutrin XL) melatonin 5 mg capsule 5 mg PO DAILY 02/21/24 04/24/24 metoclopramide HCl 5 mg tablet 5 mg PO BID 02/21/24 04/24/24 (Reglan) midodrine 5 mg tablet 5 mg PO BID 02/21/24 04/24/24 acetaminophen 500 mg capsule 500 mg PO Q6H PRN fever or pain 04/24/24 04/24/24 budesonide 0.5 mg/2 mL suspension 0.5 mg inhalation BID 04/24/24 04/24/24 for nebulization (Pulmicort) calcium carbonate (Tums) 200 mg PO TID 04/24/24 04/24/24 doxycycline hyclate 100 mg capsule 100 mg PO BID 04/24/24 04/24/24 ipratropium bromide 17 1 inh inhalation Q6H 04/24/24 04/24/24 mcg/actuation HFA aerosol inhaler (Atrovent HFA) iron polysacch cplx 150 mg 2 cap PO DAILY 04/24/24 04/24/24 iron-vit B12 25 mcg-folic acid 1 mg capsule (Ferrex) ondansetron 4 mg disintegrating 4 mg PO Q6H 04/24/24 04/24/24 tablet polyethylene glycol 3350 17 17 g PO BID PRN constipation 04/24/24 04/24/24 gram/dose oral powder (Miralax) Allergies Allergy/AdvReac Type Severity Reaction Status Date / Time No Known Drug Allergies Allergy Verified 02/29/24 06:20 Opioid HPI Opioid Management Most Recent Opioid Data: Last Pain Scale 5 01/30/24 12:00 01/30/24 Last Pain Intensity 7 01/29/24 09:25 01/29/24 Last ORT Total Score 0 01/27/24 15:35 01/27/24 Last ORT Risk Category Low Risk 01/27/24 15:35 01/27/24 [facility] Medical History (Updated 04/24/24 @ 21:59 by MEGGAN Anderson) Kidney stones ?N20.0 - Calculus of kidney (ICD-10) Depression ?F32.A - Depression, unspecified (ICD-10) Hyperlipidemia ?E78.5 - Hyperlipidemia, unspecified (ICD-10) Arthritis ?M19.90 - Unspecified osteoarthritis, unspecified site (ICD-10) BPH (benign prostatic hyperplasia) ?N40.0 - Benign prostatic hyperplasia without lower urinary tract symptoms (ICD-10) Acute urinary retention ?R33.8 - Other retention of urine (ICD-10) Non-ST elevation (NSTEMI) myocardial infarction ?I21.4 - Non-ST elevation (NSTEMI) myocardial infarction (ICD-10) Syncope and collapse ?R55 - Syncope and collapse (ICD-10) Chronic respiratory failure with hypoxia ?J96.11 - Chronic respiratory failure with hypoxia (ICD-10) CKD stage 3 due to type 2 diabetes mellitus ?E11.22 - Type 2 diabetes mellitus with diabetic chronic kidney disease (ICD- 10) ?N18.30 - Chronic kidney disease, stage 3 unspecified (ICD-10) CAD (coronary artery disease) ?I25.10 - Atherosclerotic heart disease of [place] coronary artery without angina pectoris (ICD-10) Diabetes ?E11.9 - Type 2 diabetes mellitus without complications (ICD-10) Hypertension ?I10 - Essential (primary) hypertension (ICD-10) CHF (congestive heart failure) ?I50.9 - Heart failure, unspecified (ICD-10) Surgical History (Updated 03/27/24 @ 13:47 by Mala Calabrese RN) Hx of tonsillectomy ?Z90.89 - Acquired absence of other organs (ICD-10) Hx of cholecystectomy ?Z90.49 - Acquired absence of other specified parts of digestive tract (ICD- 10) H/O heart artery stent ?Z95.5 - Presence of coronary angioplasty implant and graft (ICD-10) Family History Mother Family history of CHF (congestive heart failure) Family history of diabetes mellitus Father Family history of cancer Social History Within the past year, how often did you have a drink containing alcohol: monthly or less Smoking status: Never smoker Non-prescribed substance use: denies use Previous occupational history: retired Highest level of school completed/degree received: high school graduate Are you now , , , , never or living with a partner: In a typical week, how many times do you talk on the telephone with family, friends, or neighbors: 3 or more times per week How often do you get together with friends or relatives: 3 or more times per week How often do you attend sikhism or rastafarian services: never Little interest or pleasure in doing things: not at all Feeling down, depressed, or hopeless: not at all Feel stressed/tense/nervous/anxious/difficulty sleeping: not at all Do you think of yourself as: straight/heterosexual Gender Identity: male Exam Constitutional Vital Signs, click to edit/add: Last Vital Signs Temp 97.8 F 04/24/24 22:33 Pulse 104 H 04/24/24 22:33 Resp 20 04/24/24 22:33 BP 126/81 04/24/24 23:12 Pulse Ox 97 04/24/24 22:32 O2 Del Method Nasal Cannula 04/24/24 20:16 O2 Flow Rate 2 04/24/24 20:16 FiO2 30 04/24/24 20:09 Course Vital Signs Vital signs: Vital Signs Temperature 99.5 F 04/24/24 19:34 Pulse Rate 110 H 04/24/24 19:34 Respiratory Rate 28 H 04/24/24 19:34 Blood Pressure 89/62 04/24/24 19:34 Pulse Oximetry 91 L 04/24/24 19:34 Oxygen Delivery Method Nasal Cannula 04/24/24 19:34 Oxygen Delivery Flow Rate 2 04/24/24 19:34 Temperature 97.8 F 04/24/24 22:33 Pulse Rate 104 H 04/24/24 22:33 Respiratory Rate 20 04/24/24 22:33 Blood Pressure 126/81 04/24/24 23:12 Pulse Oximetry 97 04/24/24 22:32 Oxygen Delivery Method Nasal Cannula 04/24/24 20:16 Oxygen Delivery Flow Rate 2 04/24/24 20:16 Fraction of Inspired Oxygen 30 04/24/24 20:09 Medical Decision Making [facility] Narrative Medical decision making narrative: 2101: on arrival to the emergency department, patient was in mild respiratory distress with tachypnea noted although he had no significant hypoxia. He arrived on 2 L nasal cannula and was almost immediately placed on BiPAP with improvement of his breathing. He maintained his oxygen saturation in the ER and had improvement of tachypnea with BiPAP. He has no complaints of chest pain. His EKG shows T wave inversion and ST depression with no acute ST elevation. Sepsis labs were ordered including blood cultures and sputum culture. Respiratory swabs are negative and the patient is found to have leukocytosis with stable anemia, he has been anemic for several months at this facility. Hemoglobin 7.1. Patient's blood pressure is normal in the ER, chest x-ray obtained showing multifocal pneumonia. Initial labs show the patient has elevated BUN at 83, creatinine 4.06 with elevated troponin over 600 and BNP greater than 35,000. Heparin is deferred at this time as we suspect the elevated troponin is secondary to acute kidney injury and elevated BNP, however given the patient's history of non-STEMI and coronary artery disease with CHF, he is not appropriate to stay at this facility. We will pursue a transfer to [facility] where the patient has been seen by cardiology before. Patient is agreeable to this. A unit of blood was ordered for the patient with Zosyn, vancomycin given for antibiotic coverage. 2128: Patient's power of commercial litigation attorney, Antony was contacted and he is in agreement with treatment plan for transfer. 2143: Blood initiated for the patient, he is unable to sign the blood consent however he verbalizes agreement with the transfusion and received a transfusion similarly twice in February. Patient's power of commercial litigation attorney, Antony, was also made aware of the blood transfusion over the phone and was in agreement with this. Blood consent was signed by myself and nursing with consent from the patient verbally. 2155: Case is turned over to attending physician for further management and disposition at this time. This patient was seen and evaluated in conjunction with the physician religious assistant. He receives his cardiac care at [facility]. He presents for evaluation of cough, shortness of breath and noted to be hypoxic. He had recently been started on doxycycline at the [facility]. He was placed on BiPAP due to hypoxia and respiratory distress upon arrival with improvement. He denied any chest pain. He does have some ST depression and T wave inversion in his EKG but no T-segment elevation. Septic workup was ordered. His white count is markedly elevated at 22. Troponin and delta troponin are both over 600. BNP is greater than 35,000. He does have a history of chronic renal insufficiency but his BUN and creatinine are markedly elevated today compared to his baseline. Potassium is mildly elevated at 5.2. He is negative for COVID-19 and influenza. We did discuss transfer with his son as he is considerably ill and likely not a good candidate to be admitted here. He received blood in the emergency department, gentle IV hydration and was given IV Zosyn and vancomycin. He will be given 40mg IV lasix in addition to his blood and other medications. Case was discussed with Quynh Berman, nurse practitioner at [facility] and he is excepted for transfer under the service of Dr Mg SHARED APC VISIT, PHYSICIAN ATTESTATION: [id number] I performed a substantive part of the MDM during the patient?s E/M visit. I personally evaluated and examined the patient. I personally made or approved the documented management plan and acknowledge its risk of complications. Lab Data Labs: Lab Results 04/24/24 04/24/24 04/24/24 Range/Units 19:46 19:51 20:08 WBC 22.5 H (4.0-11.0) 10^3/uL RBC 2.99 L (4.70-6.10) 10^6/uL Hgb 7.1 L (14.0-18.0) g/dL Hct 24.6 L (42.0-54.0) % MCV 82.3 (80.0-94.0) fL MCH 23.7 L (25.9-34.0) pg MCHC 28.9 L (29.9-35.2) g/dL RDW 18.7 H (11.0-15.0) % Plt Count 590 H (150-450) 10^3/uL MPV 9.5 (9.5-13.5) fL Seg Neuts % (Manual) 93.0 H (43.0-75.0) Band Neutrophils % 1.0 (0-5) % Lymphocytes % (Manual) 1.0 L (20.5-60.0) % Monocytes % (Manual) 2.0 (1.7-12.0) % Eosinophils % (Manual) 3.0 (0.9-7.0) % Basophils % (Manual) 0.0 L (0.2-2.0) % Neutrophils # (Manual) 20.92 H (1.4-6.5) 10^3/uL Band Neutrophils # 0.2 (0.0-0.3) 10^3/uL Lymphocytes # (Manual) 0.22 L (1.20-3.80) 10^3/uL Monocytes # (Manual) 0.45 (0.30-0.80) 10^3/uL Eosinophils # (Manual) 0.67 (0.00-0.70) 10^3/uL Basophils # (Manual) 0.00 (0.00-0.10) 10^3/uL RBC Morphology Microcytic 2+ Hypochromasia 2+ PT 12.4 H (9.0-11.6) sec INR 1.19 VBG pH 7.379 (7.330-7.430) VBG pCO2 43.2 (40.0-52.0) mmHg Sodium 140 (136-145) mmol/L Potassium 5.2 H (3.5-5.1) mmol/L Chloride 102 (98-107) mmol/L Carbon Dioxide 25.6 (21.0-32.0) mmol/L Anion Gap 17.6 BUN 83.0 H* (7.0-18.0) mg/dL Creatinine 4.04 H (0.70-1.30) mg/dL Est GFR ( Amer) 18 L (>=60 mL/min/1.73m^2) Est GFR (Non-Af Amer) 15 L (>=60 mL/min/1.73m^2) BUN/Creatinine Ratio 20.5 Glucose 237 H (74-106) mg/dL Lactate 2.1 H (0.4-2.0) mmol/L Calcium 8.9 (8.5-10.1) mg/dL Magnesium 2.4 (1.8-2.4) mg/dL Total Bilirubin 0.3 (0.2-1.0) mg/dL AST 53 H (15-37) U/L ALT 56 (16-63) U/L Alkaline Phosphatase 134 H (46-116) U/L Troponin I High Sens 640.4 H* (4.0-76.1) pg/mL NT-Pro-B Natriuret Pep >27729.0 H* (<=900.0) pg/mL Total Protein 6.8 (6.4-8.2) g/dL Albumin 2.2 L (3.4-5.0) g/dL Globulin 4.6 g/dL Albumin/Globulin Ratio 0.5 Urine Color Lt. yellow (YELLOW) Urine Clarity Sl cloudy (CLEAR) Urine pH 5.5 (5.0-9.0) Ur Specific [place] 1.025 (1.005-1.025) Urine Protein 30 A (NEG/TRACE) mg/dL Urine Glucose (UA) Negative (NEGATIVE) mg/dL Urine Ketones Negative (NEGATIVE) mg/dL Urine Occult Blood Trace-i (NEGATIVE) Urine Nitrite Positive A (NEGATIVE) Urine Bilirubin Negative (NEGATIVE) Urine Urobilinogen 0.2 (0.2-1.0) EU/dL Ur Leukocyte Esterase Small A (NEGATIVE) Urine RBC 0-2 (0-2) #/HPF Urine WBC 10-20 A (NONE SEEN) #/HPF Ur Squamous Epith Cells None seen (NONE/RARE) #/LPF Urine Crystals None seen (None Seen) #/HPF Urine Bacteria Moderate A (NONE SEEN) #/HPF Urine Casts None seen (NONE SEEN) #/LPF Urine Mucus None seen (NONE SEEN) Ur Culture Indicated? [place] [place] Influ[place] Type A Ag Negative Influenza Type B Ag Negative SARS-CoV-2 Ag (CV2AG) Negative (NEGATIVE) Blood Type A Positive Antibody Screen Negative Crossmatch See Detail 04/24/24 Range/Units 21:10 WBC (4.0-11.0) 10^3/uL RBC (4.70-6.10) 10^6/uL Hgb (14.0-18.0) g/dL Hct (42.0-54.0) % MCV (80.0-94.0) fL MCH (25.9-34.0) pg MCHC (29.9-35.2) g/dL RDW (11.0-15.0) % Plt Count (150-450) 10^3/uL MPV (9.5-13.5) fL Seg Neuts % (Manual) (43.0-75.0) Band Neutrophils % (0-5) % Lymphocytes % (Manual) (20.5-60.0) % Monocytes % (Manual) (1.7-12.0) % Eosinophils % (Manual) (0.9-7.0) % Basophils % (Manual) (0.2-2.0) % Neutrophils # (Manual) (1.4-6.5) 10^3/uL Band Neutrophils # (0.0-0.3) 10^3/uL Lymphocytes # (Manual) (1.20-3.80) 10^3/uL Monocytes # (Manual) (0.30-0.80) 10^3/uL Eosinophils # (Manual) (0.00-0.70) 10^3/uL Basophils # (Manual) (0.00-0.10) 10^3/uL RBC Morphology Hypochromasia PT (9.0-11.6) sec INR VBG pH (7.330-7.430) VBG pCO2 (40.0-52.0) mmHg Sodium (136-145) mmol/L Potassium (3.5-5.1) mmol/L Chloride (98-107) mmol/L Carbon Dioxide (21.0-32.0) mmol/L Anion Gap BUN (7.0-18.0) mg/dL Creatinine (0.70-1.30) mg/dL Est GFR ( Amer) (>=60 mL/min/1.73m^2) Est GFR (Non-Af Amer) (>=60 mL/min/1.73m^2) BUN/Creatinine Ratio Glucose (74-106) mg/dL Lactate (0.4-2.0) mmol/L Calcium (8.5-10.1) mg/dL Magnesium (1.8-2.4) mg/dL Total Bilirubin (0.2-1.0) mg/dL AST (15-37) U/L ALT (16-63) U/L Alkaline Phosphatase (46-116) U/L Troponin I High Sens 651.9 H* (4.0-76.1) pg/mL NT-Pro-B Natriuret Pep (<=900.0) pg/mL Total Protein (6.4-8.2) g/dL Albumin (3.4-5.0) g/dL Globulin g/dL Albumin/Globulin Ratio Urine Color (YELLOW) Urine Clarity (CLEAR) Urine pH (5.0-9.0) Ur Specific [place] (1.005-1.025) Urine Protein (NEG/TRACE) mg/dL Urine Glucose (UA) (NEGATIVE) mg/dL Urine Ketones (NEGATIVE) mg/dL Urine Occult Blood (NEGATIVE) Urine Nitrite (NEGATIVE) Urine Bilirubin (NEGATIVE) Urine Urobilinogen (0.2-1.0) EU/dL Ur Leukocyte Esterase (NEGATIVE) Urine RBC (0-2) #/HPF Urine WBC (NONE SEEN) #/HPF Ur Squamous Epith Cells (NONE/RARE) #/LPF Urine Crystals (None Seen) #/HPF Urine Bacteria (NONE SEEN) #/HPF Urine Casts (NONE SEEN) #/LPF Urine Mucus (NONE SEEN) Ur Culture Indicated? Influenza Type A Ag Influenza Type B Ag SARS-CoV-2 Ag (CV2AG) (NEGATIVE) Blood Type Antibody Screen Crossmatch Discharge Plan Discharge Chief Complaint: Shortness of Breath/Dyspnea Clinical Impression: Shortness of breath, CHF (congestive heart failure), Pneumonia, Sepsis, Non- STEMI (non-ST elevated myocardial infarction), Acute kidney injury, Anemia Patient Disposition: [facility] Time of Disposition Decision: 21:58
--- OUTSIDE RECORDS SUMMARY | 2024-04-24 19:40 | XMS_ITS | CCD ---
Author Organization [facility] Care Team Providers Care Block Trimmer Name Role Phone NON STAFF Primary Care Provider UnavailMD Alondra Rodriguez Admit Provider MD Ann Henao Other Provider MD Yoavnny Rivera Attending Provider [phone] Alondra Gonzales Admitting Unavailable NON STAFF Primary [...] Consulting Unavailable Siobhan Forde RN Unavailable Unavailable Rahul CAMP Attending Unavailable Marine Grier Attending Unavailable Marine Grier Attending Unavailable Rahul CAMP Attending Unavailable LILLIAM PHAM Attending Unavailable LILLIAM PHAM Attending Unavailable Marine Grier Attending Unavailable LILLIAM PHAM Attending Unavailable Rahul CAMP Attending Unavailable Rahul CAMP Referring Unavailable Allergies Allergy Classification Reported Allergen(s) Allergy Type Date of Onset Reaction(s) Facility (1 source) No Known Medication Allergies; Translations: [No Known Medication Allergies] Propensity to adverse reactions (disorder) [facility] Repository Medications Current Medications Medication Drug Class(es) [...] stools docusate sodium 50 mg / sennosides, half-way 8.6 mg oral tablet (1 source) Start: [...] Start: 10-14-2023 take 2 tablets by mo [facility] in the morning glipiZIDE (Glucotrol) 5 MG tablet Take 10 mg by mouth in the morning and 10 mg in the evening. Take before meals. 10/14/2023 Active Start: 10-14-2023 take 10 mg by mouth twice cora y Glipizide Active 10 MG PO Twice daily October 14, 2023 12:00am Start: 10-13-2023 take 1 tablet by [facility] twice daily before mealtime glipiZIDE (Glucotrol) 10 [...] oral, Daily before breakfast, First dose on Tu10/16/23 at 0745, Do not crush, chew, or split. perflutren protein A microsphere (Optison) injection 0.5 mL (1 source) Start: 12-24-2023 0.5 mL, intravenous, Once in imaging, Starting on 12/24/23 at 1836, For 1 dose, CV Medications polyethylene glycol 3350 42092 mg powder for oral solution (1 source) [...] Daily, # 30 cap(s), Refills(s) 11, Pharmacy: [facility][id number], cm, 11/22/23 15:47:00 EDT, Height/Length Dosing, [...] Continuous, Starting on Sun10/16/23 at 0145, Until Symone 10/18/23 at 0933, [...] (1 source) Start: 12-22-2023 End: 12-24-2023 take 5934-7297 [IU] intravenously every four hours as needed 2,000-4,000 Units, intravenous, Every 4 hours PRN, repeat bolus per current Heparin Assay, UFH result, Starting on Sun12/22/23 at 1200, Heparin Assay, UFH 1.2 Bolus [...] mL of Normal Saline. 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 Normal [facility] Urology Office/Clinic Noteon 02-26-2024 Urology Office/Clinic Note Urology Office/Clinic Note Chief Complaint follow up HPI Staff 68yr old pt here for f/u visit to discuss next steps. Seen in ER 01/27/24 & 02/06/24 for weakness and falls. Pt states they believe this is due to low blood pressure. He is now staying at [facility] for PT/strengthening. Previously was living at home [...] if he will still be at [facility] at time of scope or not. Ordered: Body Mass Index (BMI) documented 3008F Current tobacco non-user 1036F Depression Screening Negative 3352F E&M of Est. Patient Moderate 30-39 Min 24481 Fall Risk Screen 2 or more w/injury [...] E&M of Est. Patient Moderate 30-39 Min 17380 3. Prostate cancer screening (Z12.5: Encounter for screening for malignant neoplasm of prostate) No PSAs on [facility]. Not sure if PCP had been checking. Order given for blood draw at [facility]. Ordered: E&M of Est. Patient Moderate 30-39 Min 99141 Follow-up With When Contact Information [facility] [address] [place] [address] Business (1) Additional Instructions: our magnet maker will be contacting you for follow-up Patient [...] 80 mg= 1 tab(s), Oral, Daily Basaglar KwikPen, See Instructions sunde 2 mg Tab, 2 mg= 1 tab(s), [...] 1 ca (more content not included)... Normal [facility] Comment on above: Result Comment: Elec tronically Signed By: ANKIT IBANEZ, LILLIAM Gamble\.br\Date and Time Signed: 02/26/24 12:35 EST COLONOSCOPYon [...] of bowel preparation was evaluated using the Franklin Bowel Preparation Scale with scores of: right colon = 2, transverse colon = 2, left colon = 2. The total BBPS score was 6. Bowel prep was adequate. The patient experienced no blood loss. The procedure was not difficult. The patient tolerated the procedure well. There were no apparent adverse events. Events Procedure Events Event Event Time Specimens No specimens collected Procedure Location [address] [address] Referring Provider Bela Rubalcava MD Procedure Provider Jaja Seaman MD [facility] Glucose Test strip manual (B ld) [Mass/Vol]on 12-27-2023 Glucose [Mass/Vol] 182 mg/dL High 74 - 99 mg/dL [facility] Interpretation and review of laboratory results Abnormal [facility] Glucose [Mass/Vol] 182 mg/dL High 74-99 [facility] Comment on above: Performed By: #### 5 902-2 #### ERICA Tam ([id number]) [facility] ([facility]) [address] [place] [address] Glucose [Mass/Vol] 150 mg/dL High 74 - 99 mg/dL [facility] Interpretation and review of laboratory results Abnormal [facility] Glucose [Mass/Vol] 150 mg/dL High 74-99 [facility] Comment on above: Performed By: #### 5 902-2 #### ERICA Tam ([id number]) [facility] ([facility]) [address] [place] [address] CBC panel Auto (Bld)on 12-25 Erythrocyte distribution width (RBC) [Ratio] 16.1 % High 11.5 - 14.5 % [facility] Hematocrit (Bld) [Volume fraction] 27.9 % Low 41.0 - 52.0 % [facility] Hemoglobin (Bld) [Mass/Vol] 8.2 g/dL Low 13.5 - 17.5 g/dL [facility] Interpretation and review of laboratory results Abnormal [facility] MCH (RBC) [Entitic mass] 28.6 pg 26.0 - 34.0 pg [facility] MCHC (RBC) [Mass/Vol] 29.4 g/dL Low 32.0 - 36.0 g/dL [facility] MCV (RBC) [Entitic vol] 97 fL 80 - 100 fL [facility] Nucleated RBC/100 WBC (Bld) [Ratio] 0 % [facility] Platelets (Bld) [#/Vol] 300 10*3/uL [facility] RBC (Bld) [#/Vol] 2.87 10*6/uL Low [facility] WBC (Bld) [#/Vol] 9.1 10*3/uL [facility] Erythrocyte distribution width (RBC) [Ratio] 16.1 % High 11.5-14.[address] [facility] Comment on above: Performed By: #### 5 902-2 #### ERICA Tam ([id number]) [facility] ([facility]) [address] [place] [address] Hematocrit (Bld) [Volume fraction] 27.9 % Low 41.0-52.[address] [facility] Comment on above: Performed By: #### 5 902-2 #### ERICA Tam ([id number]) [facility] ([facility]) [address] [place] [address] Hemoglobin (Bld) [Mass/Vol] 8.2 g/dL Low 13.5-17.[address] [facility] Comment on above: Performed By: #### 5 902-2 #### ERICA Tam ([id number]) [facility] ([facility]) [address] [place] [address] MCH (RBC) [Entitic mass] 28.6 pg Normal 26.0-34.[address] [facility] Comment on above: Performed By: #### 5 902-2 #### ERICA Tam ([id number]) [facility] ([facility]) [address] [place] [address] MCHC (RBC) [Mass/Vol] 29.4 g/dL Low 32.0-36.0 [facility] Comment on above: Performed By: #### 5 902-2 #### ERICA Tam ([id number]) [facility] ([facility]) [address] [place] [address] MCV (RBC) [Entitic vol] 97 fL Normal 80-100 [facility] Comment on above: Performed By: #### 5 902-2 #### ERICA Tam ([id number]) [facility] ([facility]) [id number] [place] [address] Nucleated RBC/100 WBC (Bld) [Ratio] 0.0 /100 WBCs Normal 0.0-0.[address] [facility] Comment on above: Performed By: #### 5 902-2 #### ERICA Tam ([id number]) [facility] ([facility]) [address] [place] [address] Platelets (Bld) [#/Vol] 300 x10*3/uL Normal 150-[address] [facility] Comment on above: Performed By: #### 5 902-2 #### ERICA Tam ([id number]) [facility] ([facility]) [address] [place] [address] RBC (Bld) [#/Vol] 2.87 x10*6/uL Low 4.50-5.90 [facility] Comment on above: Performed By: #### 5 902-2 #### ERICA Tam ([id number]) [facility] ([facility]) [address] [place] [address] WBC (Bld) [#/Vol] 9.1 x10*3/uL Normal 4.4-11.3 [facility] Comment on above: Performed By: #### 5 902-2 #### ERICA Tam ([id number]) [facility] ([facility]) [address] [place] [address] ECG 12-LEADon 12-26-2023 ECG 12-LEAD Ventricular Rate 61 Atrial Rate 61 P-R Interval 214 QRS Duration 98 Q-T Interval 444 QTC Calculation(Bazett) 446 P Pinetta 24 R Pinetta 17 T Pinetta 92 QRS Count 10 Q Onset 219 [...] Pope ([id number]) on 12/28/2023 10:37:08 AM Normal [facility] EGDon 12-26-2023 Esophagogastroduodenosc opy Table [...] appeared normal. 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 Follow up with primary medical administrator Repeat egd with further banding if recurrent [...] Time Specimens No specimens collected Procedure Location [facility] [address] [facility] [phone] Referring Provider Bela Rubalcava MD Procedure Provider Jaja Seaman MD [facility] EGD Study observation Sina pierre 12-26-2023 Table [...] appeared normal. 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 Follow up with primary medical administrator Repeat egd with further banding if recurrent [...] Time Specimens No specimens collected Procedure Location [facility] [id number] [place] [phone] Referring Provider Bela Rubalcava MD Procedure Provider Jaja Seaman MD [facility] Work Phone: Radiology Study observation (narrative) [facility] Work Phone: EGD Study observation Narrat iveOrdered By: Jaja Seaman on 12-26-2023 [facility] Work Phone: Glucose Test strip manual (B ld) [Mass/Vol]on 12-26-2023 Glucose [Mass/Vol] 172 mg/dL High 74 - 99 mg/dL [facility] Interpretation and review of laboratory results Abnormal [facility] Glucose [Mass/Vol] 172 mg/dL High 74-99 [facility] Comment on above: Performed By: #### 5 902-2 #### ERICA Tam ([id number]) [facility] ([facility]) [address] [place] [address] Glucose [Mass/Vol] 108 mg/dL High 74 - 99 mg/dL [facility] Interpretation and review of laboratory results Abnormal [facility] Glucose [Mass/Vol] 108 mg/dL High 74-99 [facility] Comment on above: Performed By: #### 5 902-2 #### ERICA Tam ([id number]) [facility] ([facility]) [address] [place] [address] Glucose [Mass/Vol] 106 mg/dL High 74 - 99 mg/dL [facility] Interpretation and review of laboratory results Abnormal [facility] Glucose [Mass/Vol] 106 mg/dL High 74-99 [facility] Comment on above: Performed By: #### 5 902-2 #### ERICA Tam ([id number]) [facility] ([facility]) [address] [place] [address] Glucose [Mass/Vol] 117 mg/dL High 74 - 99 mg/dL [facility] Interpretation and review of laboratory results Abnormal [facility] Glucose [Mass/Vol] 117 mg/dL High 74-99 [facility] Comment on above: Performed By: #### 5 902-2 #### ERICA Tam ([id number]) [facility] ([facility]) [address] [place] [address] Glucose [Mass/Vol] 125 mg/dL High 74 - 99 mg/dL [facility] Interpretation and review of laboratory results Abnormal [facility] Glucose [Mass/Vol] 125 mg/dL High 74-99 [facility] Comment on above: Performed By: #### 5 902-2 #### ERICA Tam ([id number]) [facility] ([facility]) [address] [place] [address] Magnesiumon 12-26-2023 Magnesium [Mass/Vol] 1.89 mg/dL 1.60 - 2.40 mg/dL [facility] Magnesium [Mass/Vol] 1.89 mg/dL Normal 1.60-2.40 [facility] Comment on above: Performed By: #### 5 902-2 #### ERICA Tam ([id number]) [facility] ([facility]) [address] [place] [address] Magnesium [Mass/Vol]on 12-25 Interpretation and review of laboratory results Normal [facility] No Panel Informationon 12-25 [facility] Renal function 2000 panelon 12-26-2023 Albumin BCP dye [Mass/Vol] 2.9 g/dL Low 3.4 - 5.0 g/dL [facility] Anion gap [Moles/Vol] 14 mmol/L 10 - 2 0 mmol/L [facility] Calcium [Mass/Vol] 8.4 mg/dL Low 8.6 - 10. 6 mg/dL [facility] Chloride [Moles/Vol] 103 mmol/L 98 - 10 7 mmol/L [facility] CO2 [Moles/Vol] 29 mmol/L 21 - 32 mmol/L [facility] Creatinine [Mass/Vol] 1.69 mg/dL High 0.50 - 1.30 mg/dL [facility] GFR/1.73 sq M.predicted among non-blacks MDRD (S/P/Bld) [Vol rate/Area] 43 mL/min/{1.73_m2} Low - PINF [facility] Comment on above: Calculations of mercedez mated GFR are performed using the 2020 CKD-EPI Study Refit equation without the race variable for the IDMS-Traceable creatinine methods. https://jasn.asnjournals.org/content/early//ASN.2020 499369 Glucose [Mass/Vol] 180 mg/dL High 74 - 99 mg/dL [facility] Interpretation and review of laboratory results Abnormal [facility] Phosphate [Mass/Vol] 3.2 mg/dL 2.5 - 4 .9 mg/dL [facility] Comment on above: The performance cecilia acteristics of phosphorus testing in heparinized plasma have been validated by the individual laboratory site where testing is performed. Testing on heparinized plasma is not approved by the FDA; however, such approval is not necessary. Potassium [Moles/Vol] 3.8 mmol/L 3.5 - 5.3 mmol/L [facility] Sodium [Moles/Vol] 142 mmol/L 136 - 145 mmol/L [facility] Urea nitrogen [Mass/Vol] 37 mg/dL High 6 - 23 mg/dL [facility] Albumin BCP dye [Mass/Vol] 2.9 g/dL Low 3.4-5.[address] [facility] Comment on above: Performed By: #### 5 902-2 #### ERICA Tam ([id number]) [facility] ([facility]) [address] [place] [address] Anion gap [Moles/Vol] 14 mmol/L Normal 10-20 [facility] Comment on above: Performed By: #### 5 902-2 #### ERICA MCDONALD L ([id number]) [facility] ([facility]) [address] [place] [address] Calcium [Mass/Vol] 8.4 mg/dL Low 8.6-10.6 [facility] Comment on above: Performed By: #### 5 902-2 #### ERICA HIGGINSER L ([id number]) [facility] ([facility]) [address] [place] [address] Chloride [Moles/Vol] 103 mmol/L Normal 98-107 [facility] Comment on above: Performed By: #### 5 902-2 #### ERICA MCDONALD L ([id number]) [facility] ([facility]) [address] [place] [address] CO2 [Moles/Vol] 29 mmol/L Normal 21-[address] [facility] Comment on above: Performed By: #### 5 902-2 #### ERICA MCDONALD L ([id number]) [facility] ([facility]) [address] [place] [address] Creatinine [Mass/Vol] 1.69 mg/dL High 0.50-1.30 [facility] Comment on above: Performed By: #### 5 902-2 #### ERICA MCDONALD L ([id number]) [facility] ([facility]) [id number] [place] [address] Glomerular filtration rate/1.73 sq M.predicted 43 mL/min/1.73m*2 Low >[address] [facility] Comment on above: Result Comment: Calc ulations of estimated GFR are performed using the 2020 CKD-EPI Study Refit equation without the race variable for the IDMS-Traceable creatinine methods. https://jasn.asnjournals.org/content/early//ASN.2020 463461 Performed By: #### 5 902-2 #### ERICA MCDONALD L ([id number]) [facility] ([facility]) [address] [place] [address] Glucose [Mass/Vol] 180 mg/dL High 74-99 [facility] Comment on above: Performed By: #### 5 902-2 #### ERICA Tam ([id number]) [facility] ([facility]) [address] [place] [address] Phosphate [Mass/Vol] 3.2 mg/dL Normal 2.5-4.9 [facility] Comment on above: Result Comment: The performance characteristics of phosphorus testing in heparinized plasma have been validated by the individual laboratory site where testing is performed. Testing on heparinized plasma is not approved by the FDA; however, such approval is not necessary. Performed By: #### 5 902-2 #### ERICA Tam ([id number]) [facility] ([facility]) [address] [place] [address] Potassium [Moles/Vol] 3.8 mmol/L Normal 3.5-5.3 [facility] Comment on above: Performed By: #### 5 902-2 #### ERICA Tam ([id number]) [facility] ([facility]) [address] [place] [address] Sodium [Moles/Vol] 142 mmol/L Normal 136-145 [facility] Comment on above: Performed By: #### 5 902-2 #### ERICA Tam ([id number]) [facility] ([facility]) [address] [place] [address] Urea nitrogen [Mass/Vol] 37 mg/dL High 6-[address] [facility] Comment on above: Performed By: #### 5 902-2 #### ERICA Tam ([id number]) [facility] ([facility]) [address] [place] [address] CBC panel Auto (Bld)on 12-24 Erythrocyte distribution width (RBC) [Ratio] 16.3 % High 11.5 - 14.5 % [facility] Hematocrit (Bld) [Volume fraction] 29.1 % Low 41.0 - 52.0 % [facility] Hemoglobin (Bld) [Mass/Vol] 8.8 g/dL Low 13.5 - 17.5 g/dL [facility] Interpretation and review of laboratory results Abnormal [facility] MCH (RBC) [Entitic mass] 28.4 pg 26.0 - 34.0 pg [facility] MCHC (RBC) [Mass/Vol] 30.2 g/dL Low 32.0 - 36.0 g/dL [facility] MCV (RBC) [Entitic vol] 94 fL 80 - 100 fL [facility] Nucleated RBC/100 WBC (Bld) [Ratio] 0 % [facility] Platelets (Bld) [#/Vol] 416 10*3/uL [facility] RBC (Bld) [#/Vol] 3.1 10*6/uL Low [facility] WBC (Bld) [#/Vol] 9.3 10*3/uL [facility] Erythrocyte distribution width (RBC) [Ratio] 16.3 % High 11.5-14.[address] [facility] Comment on above: Performed By: #### 5 902-2 #### ERICA Tam ([id number]) [facility] ([facility]) [address] [place] [address] Hematocrit (Bld) [Volume fraction] 29.1 % Low 41.0-52.[address] [facility] Comment on above: Performed By: #### 5 902-2 #### ERICA Tam ([id number]) [facility] ([facility]) [id number] [place] [address] Hemoglobin (Bld) [Mass/Vol] 8.8 g/dL Low 13.5-17.[address] [facility] Comment on above: Performed By: #### 5 902-2 #### ERICA Tam ([id number]) [facility] ([facility]) [id number] [place] [address] MCH (RBC) [Entitic mass] 28.4 pg Normal 26.0-34.[address] [facility] Comment on above: Performed By: #### 5 902-2 #### ERICA Tam ([id number]) [facility] ([facility]) [address] [place] [address] MCHC (RBC) [Mass/Vol] 30.2 g/dL Low 32.0-36.0 [facility] Comment on above: Performed By: #### 5 902-2 #### ERICA Tam ([id number]) [facility] ([facility]) [address] [place] [address] MCV (RBC) [Entitic vol] 94 fL Normal 80-100 [facility] Comment on above: Performed By: #### 5 902-2 #### ERICA Tam ([id number]) [facility] ([facility]) [address] [place] [address] Nucleated RBC/100 WBC (Bld) [Ratio] 0.0 /100 WBCs Normal 0.0-0.[address] [facility] Comment on above: Performed By: #### 5 902-2 #### ERICA Tam ([id number]) [facility] ([facility]) [address] [place] [address] Platelets (Bld) [#/Vol] 416 x10*3/uL Normal 150-[address] [facility] Comment on above: Performed By: #### 5 902-2 #### EIRCA Tam ([id number]) [facility] ([facility]) [address] [place] [address] RBC (Bld) [#/Vol] 3.10 x10*6/uL Low 4.50-5.90 [facility] Comment on above: Performed By: #### 5 902-2 #### ERICA Tam ([id number]) [facility] ([facility]) [address] [place] [address] WBC (Bld) [#/Vol] 9.3 x10*3/uL Normal 4.4-11.3 [facility] Comment on above: Performed By: #### 5 902-2 #### ERICA Tam ([id number]) [facility] ([facility]) [address] [place] [address] ECG 12 leadOrdered By: Santiago Pope on 12-25-2023 Atrial Rate 77 BPM [facility] Work Phone: [phone] P Pinetta 2 degrees [facility] Work Phone: [phone] P Offset 170 ms [facility] Work Phone: [phone] P Onset 128 ms [facility] Work Phone: [phone] NM Interval 186 ms [facility] Work Phone: [phone] Q Onset 221 ms [facility] Work Phone: [phone] QRS Count 13 beats [facility] Work Phone: [phone] QRS Duration 92 ms [facility] Work Phone: [phone] QT Interval 378 ms [facility] Work Phone: [phone] QTC Calculation(Bazett) 427 ms U [facility] Work Phone: [phone] QTC Fredericia 410 ms [facility] Work Phone: [phone] R Pinetta 27 degrees [facility] Work Phone: [phone] T Pinetta 124 degrees [facility] Work Phone: [phone] T Offset 410 ms [facility] Work Phone: [phone] Ventricular Rate 77 BPM [facility] Work Phone: [phone] [facility] Work Phone: [phone] ECG 12 leadon 12-25-2023 Sinus rhythm with frequent Premature ventricular complexes Nonspecific T wave abnormality Abnormal ECG When compared with ECG of 22-DEC-2023 11:44, No significant change was found Confirmed by Santiago Pope ([id number]) on 12/25/2023 11:27:31 AM MUSE Santiago Pope MD - 12/25/2023 Sinus rhythm with frequent Premature ventricular complexes Nonspecific T wave abnormality Abnormal ECG When compared with ECG of 22-DEC-2023 11:44, No significant change was found Confirmed by Santiago Pope ([id number]) on 12/25/2023 11:27:31 AM [facility] Work Phone: Glucose Test strip manual (B ld) [Mass/Vol]on 12-25-2023 Glucose [Mass/Vol] 118 mg/dL High 74 - 99 mg/dL [facility] Interpretation and review of laboratory results Abnormal [facility] Glucose [Mass/Vol] 118 mg/dL High 74-99 [facility] Comment on above: Performed By: #### 5 902-2 #### ERICA Tam ([id number]) [facility] ([facility]) [address] [place] [address] 49291 Glucose [Mass/Vol] 192 mg/dL High 74 - 99 mg/dL [facility] Interpretation and review of laboratory results Abnormal [facility] Glucose [Mass/Vol] 192 mg/dL High 74-99 [facility] Comment on above: Performed By: #### 5 902-2 #### ERICA Tam ([id number]) [facility] ([facility]) [address] [place] [address] 54696 Glucose [Mass/Vol] 247 mg/dL High 74 - 99 mg/dL [facility] Interpretation and review of laboratory results Abnormal [facility] Glucose [Mass/Vol] 247 mg/dL High 74-99 [facility] Comment on above: Performed By: #### 5 902-2 #### ERICA Tam ([id number]) [facility] ([facility]) [address] [place] [address] 04204 Glucose [Mass/Vol] 120 mg/dL High 74 - 99 mg/dL [facility] Interpretation and review of laboratory results Abnormal [facility] Glucose [Mass/Vol] 120 mg/dL High 74-99 [facility] Comment on above: Performed By: #### 5 902-2 #### ERICA Tam ([id number]) [facility] ([facility]) [address] [place] [address] Glucose [Mass/Vol] 139 mg/dL High 74 - 99 mg/dL [facility] Interpretation and review of laboratory results Abnormal [facility] Glucose [Mass/Vol] 139 mg/dL High 74-99 [facility] Comment on above: Performed By: #### 5 902-2 #### ERICA Tam ([id number]) [facility] ([facility]) [id number] [place] [address] 58724 Magnesiumon 12-25-2023 Magnesium [Mass/Vol] 1.98 mg/dL 1.60 - 2.40 mg/dL [facility] Magnesium [Mass/Vol] 1.98 mg/dL Normal 1.60-2.40 [facility] Comment on above: Performed By: #### 5 902-2 #### ERICA Tam ([id number]) [facility] ([facility]) [address] [place] [address] 33031 Magnesium [Mass/Vol]on 12-24 Interpretation and review of laboratory results Normal [facility] No Panel Informationon 12-24 [facility] Renal function 2000 panelon 12-25-2023 Albumin BCP dye [Mass/Vol] 3.3 g/dL Low 3.4 - 5.0 g/dL [facility] Anion gap [Moles/Vol] 13 mmol/L 10 - 2 0 mmol/L [facility] Calcium [Mass/Vol] 9 mg/dL 8.6 - 10. 6 mg/dL [facility] Chloride [Moles/Vol] 101 mmol/L 98 - 10 7 mmol/L [facility] CO2 [Moles/Vol] 31 mmol/L 21 - 32 mmol/L [facility] Creatinine [Mass/Vol] 1.68 mg/dL High 0.50 - 1.30 mg/dL [facility] GFR/1.73 sq M.predicted among non-blacks MDRD (S/P/Bld) [Vol rate/Area] 44 mL/min/{1.73_m2} Low - PINF [facility] Comment on above: Calculations of [place] mated GFR are performed using the 2020 CKD-EPI Study Refit equation without the race variable for the IDMS-Traceable creatinine methods. https://jasn.asnjournals.org/content/early/ASN.2020 774639 Glucose [Mass/Vol] 174 mg/dL High 74 - 99 mg/dL [facility] Interpretation and review of laboratory results Abnormal [facility] Phosphate [Mass/Vol] 2.8 mg/dL 2.5 - 4 .9 mg/dL [facility] Comment on above: The performance cecilia acteristics of phosphorus testing in heparinized plasma have been validated by the individual laboratory site where testing is performed. Testing on heparinized plasma is not approved by the FDA; however, such approval is not necessary. Potassium [Moles/Vol] 3.8 mmol/L 3.5 - 5.3 mmol/L [facility] Sodium [Moles/Vol] 141 mmol/L 136 - 145 mmol/L [facility] Urea nitrogen [Mass/Vol] 35 mg/dL High 6 - 23 mg/dL [facility] Albumin BCP dye [Mass/Vol] 3.3 g/dL Low 3.4-5.[address] [facility] Comment on above: Performed By: #### 5 902-2 #### ERICA Tam ([id number]) [facility] ([facility]) [id number] [place] [address] 22709 Anion gap [Moles/Vol] 13 mmol/L Normal 10-20 [facility] Comment on above: Performed By: #### 5 902-2 #### ERICA MCDONALD L ([id number]) [facility] ([facility]) [id number] [place] [address] 28334 Calcium [Mass/Vol] 9.0 mg/dL Normal 8.6-10.6 [facility] Comment on above: Performed By: #### 5 902-2 #### ERICA RESTREPOMOTZLUZ L ([id number]) [facility] ([facility]) [address] [place] [address] 30796 Chloride [Moles/Vol] 101 mmol/L Normal 98-107 [facility] Comment on above: Performed By: #### 5 902-2 #### ERICA Tam ([id number]) [facility] ([facility]) [address] [place] [address] CO2 [Moles/Vol] 31 mmol/L Normal 21-[address] [facility] Comment on above: Performed By: #### 5 902-2 #### ERICA Tam ([id number]) [facility] ([facility]) [id number] [place] [address] 32869 Creatinine [Mass/Vol] 1.68 mg/dL High 0.50-1.30 [facility] Comment on above: Performed By: #### 5 902-2 #### ERICA Tam ([id number]) [facility] ([facility]) [id number] [place] [address] 65937 Glomerular filtration rate/1.73 sq M.predicted 44 mL/min/1.73m*2 Low >[address] [facility] Comment on above: Result Comment: Calc ulations of estimated GFR are performed using the 2020 CKD-EPI Study Refit equation without the race variable for the IDMS-Traceable creatinine methods. https://jasn.asnjournals.org/content/early//ASN.2020 155751 Performed By: #### 5 902-2 #### ERICA Tam ([id number]) [facility] ([facility]) [address] [place] [address] Glucose [Mass/Vol] 174 mg/dL High 74-99 [facility] Comment on above: Performed By: #### 5 902-2 #### ERICA Tam ([id number]) [facility] ([facility]) [id number] [place] [address] 57590 Phosphate [Mass/Vol] 2.8 mg/dL Normal 2.5-4.9 [facility] Comment on above: Result Comment: The performance characteristics of phosphorus testing in heparinized plasma have been validated by the individual laboratory site where testing is performed. Testing on heparinized plasma is not approved by the FDA; however, such approval is not necessary. Performed By: #### 5 902-2 #### ERICA Tam ([id number]) [facility] ([facility]) [address] [place] [address] 23229 Potassium [Moles/Vol] 3.8 mmol/L Normal 3.5-5.3 [facility] Comment on above: Performed By: #### 5 902-2 #### ERICA Tam ([id number]) [facility] ([facility]) [address] [place] [address] 82256 Sodium [Moles/Vol] 141 mmol/L Normal 136-145 [facility] Comment on above: Performed By: #### 5 902-2 #### ERICA Tam ([id number]) [facility] ([facility]) [address] [place] [address] 99215 Urea nitrogen [Mass/Vol] 35 mg/dL High 6-[address] [facility] Comment on above: Performed By: #### 5 902-2 #### ERICA Tam ([id number]) [facility] ([facility]) [address] [place] [address] 72080 Blood type and Indirect anti body screen panel (Bld)on 12-24-2023 ABO group Nom (Bld) A [facility] Blood group antibody screen Ql Negative [facility] D Ag Ql (Bld) Positive [facility] Comment on above: 2nd ABO test require d. Order and Collect VERAB [facility] CBC panel Auto (Bld)on 12-23 Erythrocyte distribution width (RBC) [Ratio] 16.2 % High 11.5 - 14.5 % [facility] Hematocrit (Bld) [Volume fraction] 25 % Low 41.0 - 52.0 % [facility] Hemoglobin (Bld) [Mass/Vol] 7.6 g/dL Low 13.5 - 17.5 g/dL [facility] Interpretation and review of laboratory results Abnormal [facility] MCH (RBC) [Entitic mass] 28.5 pg 26.0 - 34.0 pg [facility] MCHC (RBC) [Mass/Vol] 30.4 g/dL Low 32.0 - 36.0 g/dL [facility] MCV (RBC) [Entitic vol] 94 fL 80 - 100 fL [facility] Nucleated RBC/100 WBC (Bld) [Ratio] 0 % [facility] Platelets (Bld) [#/Vol] 352 10*3/uL [facility] RBC (Bld) [#/Vol] 2.67 10*6/uL Low [facility] WBC (Bld) [#/Vol] 9.8 10*3/uL [facility] Erythrocyte distribution width (RBC) [Ratio] 16.2 % High 11.5-14.[address] [facility] Comment on above: Performed By: #### 5 902-2 #### ERICA Tam ([id number]) [facility] ([facility]) [address] [place] [address] 23010 Hematocrit (Bld) [Volume fraction] 25.0 % Low 41.0-52.[address] [facility] Comment on above: Performed By: #### 5 902-2 #### ERICA Tam ([id number]) [facility] ([facility]) [address] [place] [address] 77469 Hemoglobin (Bld) [Mass/Vol] 7.6 g/dL Low 13.5-17.[address] [facility] Comment on above: Performed By: #### 5 902-2 #### ERICA Tam ([id number]) [facility] ([facility]) [id number] [place] [address] 62082 MCH (RBC) [Entitic mass] 28.5 pg Normal 26.0-34.[address] [facility] Comment on above: Performed By: #### 5 902-2 #### ERICA Tam ([id number]) [facility] ([facility]) [id number] [place] [address] 22707 MCHC (RBC) [Mass/Vol] 30.4 g/dL Low 32.0-36.0 [facility] Comment on above: Performed By: #### 5 902-2 #### ERICA Tam ([id number]) [facility] ([facility]) [address] [place] [address] 21673 MCV (RBC) [Entitic vol] 94 fL Normal 80-100 [facility] Comment on above: Performed By: #### 5 902-2 #### ERCIA Tam ([id number]) [facility] ([facility]) [address] [place] [address] 95869 Nucleated RBC/100 WBC (Bld) [Ratio] 0.0 /100 WBCs Normal 0.0-0.[address] [facility] Comment on above: Performed By: #### 5 902-2 #### ERICA Tam ([id number]) [facility] ([facility]) [address] [place] [address] 74503 Platelets (Bld) [#/Vol] 352 x10*3/uL Normal 150-[address] [facility] Comment on above: Performed By: #### 5 902-2 #### ERICA Tam ([id number]) [facility] ([facility]) [address] [place] [address] 05183 RBC (Bld) [#/Vol] 2.67 x10*6/uL Low 4.50-5.90 [facility] Comment on above: Performed By: #### 5 902-2 #### ERICA Tam ([id number]) [facility] ([facility]) [address] [place] [address] 94352 WBC (Bld) [#/Vol] 9.8 x10*3/uL Normal 4.4-11.3 [facility] Comment on above: Performed By: #### 5 902-2 #### ERICA Tam ([id number]) [facility] ([facility]) [address] [place] [address] 50984 Glucose Test strip manual (B ld) [Mass/Vol]on 12-24-2023 Glucose [Mass/Vol] 153 mg/dL High 74 - 99 mg/dL [facility] Interpretation and review of laboratory results Abnormal [facility] Glucose [Mass/Vol] 153 mg/dL High 74-99 [facility] Comment on above: Performed By: #### 5 902-2 #### ERICA Tam ([id number]) [facility] ([facility]) [address] [place] [address] 89279 Glucose [Mass/Vol] 77 mg/dL 74 - 99 mg/dL [facility] Interpretation and review of laboratory results Normal [facility] Glucose [Mass/Vol] 77 mg/dL Normal 74-99 [facility] Comment on above: Performed By: #### 5 902-2 #### ERICA Tam ([id number]) [facility] ([facility]) [address] [place] [address] 67080 Glucose [Mass/Vol] 134 mg/dL High 74 - 99 mg/dL [facility] Interpretation and review of laboratory results Abnormal [facility] Glucose [Mass/Vol] 134 mg/dL High 74-99 [facility] Comment on above: Performed By: #### 5 902-2 #### ERICA Tam ([id number]) [facility] ([facility]) [address] [place] [address] 80493 Glucose [Mass/Vol] 100 mg/dL High 74 - 99 mg/dL [facility] Interpretation and review of laboratory results Abnormal [facility] Glucose [Mass/Vol] 100 mg/dL High 74-99 [facility] Comment on above: Performed By: #### 5 902-2 #### ERICA Tam ([id number]) [facility] ([facility]) [address] [place] [address] 40827 Heparin Assayon 12-24-2023 Heparin unfractionated Chromogenic method Qn (PPP) 0.3 See Comment Below for Therapeutic Ranges IU/mL [facility] Heparin unfractionated Chrom ogenic method Qn (PPP)on 12-24-2023 Interpretation and review of laboratory results Normal [facility] The therapeutic reference range for UFH may be either 0.3-0.6 IU/mL or 0.3-0.7 IU/mL based on the clinical setting for anticoagulant therapy and the associated nomogram used. For Heparin dosing guidelines based on clinical scenario and Heparin Assay results, please refer to local Pharmacy and the [facility] Guidelines for Anticoagulation Therapy available on the [facility] intranet at: [email or web address]_ Guidelines_for_Anticoagu .aspx [facility] Heparin.unfractionatedon Heparin unfractionated Chromogenic method Qn (PPP) 0.3 IU/mL Normal See Comment Below for Therapeutic Ranges [facility] Comment on above: Order Comment: If val monroe has not had PT + INR in the last 24 hours. Nursing to release order. Performed By: #### 5 902-2 #### ERICA Tam ([id number]) [facility] ([facility]) [address] [place] [address] 79235 Magnesiumon 12-24-2023 Magnesium [Mass/Vol] 1.92 mg/dL 1.60 - 2.40 mg/dL [facility] Magnesium [Mass/Vol] 1.92 mg/dL Normal 1.60-2.40 [facility] Comment on above: Performed By: #### 5 902-2 #### ERICA Tam ([id number]) [facility] ([facility]) [address] [place] [address] 05645 Magnesium [Mass/Vol]on 12-23 Interpretation and review of laboratory results Normal [facility] No Panel Informationon 12-23 [facility] Renal function 2000 panelon 12-24-2023 Albumin BCP dye [Mass/Vol] 3.1 g/dL Low 3.4 - 5.0 g/dL [facility] Anion gap [Moles/Vol] 12 mmol/L 10 - 2 0 mmol/L [facility] Calcium [Mass/Vol] 8.6 mg/dL 8.6 - 10. 6 mg/dL [facility] Chloride [Moles/Vol] 101 mmol/L 98 - 10 7 mmol/L [facility] CO2 [Moles/Vol] 31 mmol/L 21 - 32 mmol/L [facility] Creatinine [Mass/Vol] 1.67 mg/dL High 0.50 - 1.30 mg/dL [facility] GFR/1.73 sq M.predicted among non-blacks MDRD (S/P/Bld) [Vol rate/Area] 44 mL/min/{1.73_m2} Low - PINF [facility] Comment on above: Calculations of [place] mated GFR are performed using the 2020 CKD-EPI Study Refit equation without the race variable for the IDMS-Traceable creatinine methods. https://jasn.asnjournals.org/content/early//ASN.2020 871812 Glucose [Mass/Vol] 168 mg/dL High 74 - 99 mg/dL [facility] Interpretation and review of laboratory results Abnormal [facility] Phosphate [Mass/Vol] 3 mg/dL 2.5 - 4 .9 mg/dL [facility] Comment on above: The performance cecilia acteristics of phosphorus testing in heparinized plasma have been validated by the individual laboratory site where testing is performed. Testing on heparinized plasma is not approved by the FDA; however, such approval is not necessary. Potassium [Moles/Vol] 3.8 mmol/L 3.5 - 5.3 mmol/L [facility] Sodium [Moles/Vol] 140 mmol/L 136 - 145 mmol/L [facility] Urea nitrogen [Mass/Vol] 43 mg/dL High 6 - 23 mg/dL [facility] Albumin BCP dye [Mass/Vol] 3.1 g/dL Low 3.4-5.[address] [facility] Comment on above: Performed By: #### 5 902-2 #### ERICA Tam ([id number]) [facility] ([facility]) [id number] [place] [address] Anion gap [Moles/Vol] 12 mmol/L Normal 10-20 [facility] Comment on above: Performed By: #### 5 902-2 #### ERICA MCDONALD L ([id number]) [facility] ([facility]) [address] [place] [address] Calcium [Mass/Vol] 8.6 mg/dL Normal 8.6-10.6 [facility] Comment on above: Performed By: #### 5 902-2 #### ERICA RESTREPOMOTZER L ([id number]) [facility] ([facility]) [address] [place] [address] Chloride [Moles/Vol] 101 mmol/L Normal 98-107 [facility] Comment on above: Performed By: #### 5 902-2 #### ERICA MCDONALD L ([id number]) [facility] ([facility]) [id number] [place] [address] 84624 CO2 [Moles/Vol] 31 mmol/L Normal 21-[address] [facility] Comment on above: Performed By: #### 5 902-2 #### ERICA MCDONALD L ([id number]) [facility] ([facility]) [id number] [place] [address] 30579 Creatinine [Mass/Vol] 1.67 mg/dL High 0.50-1.30 [facility] Comment on above: Performed By: #### 5 902-2 #### ERICA RESTREPOMOTZER L ([id number]) [facility] ([facility]) [id number] [place] [address] 82823 Glomerular filtration rate/1.73 sq M.predicted 44 mL/min/1.73m*2 Low >[address] [facility] Comment on above: Result Comment: Calc ulations of estimated GFR are performed using the 2020 CKD-EPI Study Refit equation without the race variable for the IDMS-Traceable creatinine methods. https://jasn.asnjournals.org/content/early//ASN.2020 721856 Performed By: #### 5 902-2 #### ERICA RESTREPOMOTZER L ([id number]) [facility] ([facility]) [address] [place] [address] Glucose [Mass/Vol] 168 mg/dL High 74-99 [facility] Comment on above: Performed By: #### 5 902-2 #### ERICA Tam ([id number]) [facility] ([facility]) [address] [place] [address] 60113 Phosphate [Mass/Vol] 3.0 mg/dL Normal 2.5-4.9 [facility] Comment on above: Result Comment: The performance characteristics of phosphorus testing in heparinized plasma have been validated by the individual laboratory site where testing is performed. Testing on heparinized plasma is not approved by the FDA; however, such approval is not necessary. Performed By: #### 5 902-2 #### ERICA Tam ([id number]) [facility] ([facility]) [address] [place] [address] 28326 Potassium [Moles/Vol] 3.8 mmol/L Normal 3.5-5.3 [facility] Comment on above: Performed By: #### 5 902-2 #### ERICA Tam ([id number]) [facility] ([facility]) [address] [place] [address] 09288 Sodium [Moles/Vol] 140 mmol/L Normal 136-145 [facility] Comment on above: Performed By: #### 5 902-2 #### ERICA Tam ([id number]) [facility] ([facility]) [address] [place] [address] 25412 Urea nitrogen [Mass/Vol] 43 mg/dL High 6-[address] [facility] Comment on above: Performed By: #### 5 902-2 #### ERICA Tam ([id number]) [facility] ([facility]) [address] [place] [address] 85141 TRANSTHORACIC ECHO (TTE) [facility] [place] 12-24-2023 TRANSTHORACIC ECHO (TTE) [facility], [address] [place] [address] 99041 and TRANSTHORACIC ECHOCARDIOGRAM REPORT Patient Name: ITALIA Alfaro Physician: [id number] Melly Benítez MD Study Date: 12/24/2023 Ordering Provider: [id number] RAFI WALLER MRN/PID: [id number] Fellow: Nurse: Anai Sow RN Date of /Age: 6 1955 Food Service Driver: Ke mancia RDCS Gender assigned at M Additional Staff: : Height: 177.80 cm Admit Date: Weight: 112.04 kg Admission Status: Inpatient - Routine BSA / BMI: 2.28 m2 / 35.44 kg/m2 Blood Pressure: 151/79 mmHg Department Location: [facility] Non Invasive Study Type: TRANSTHORACIC ECHO (TTE) COMPLETE Diagnosis/ICD: Non ST elevation (NSTEMI) myocardial infarction-I21.4; Atherosclerotic heart disease of [place] coronary artery without angina pectoris-I25.10; Acute on chronic systolic (congestive) heart failure (CHF)-I50.23 Indication: ADHF, CHF, NSTEMI CPT Code: Echo Complete w Full Doppler-08059 Patient History: Pertinent History: NSTEMI, CAD, HTN, [...] machine learning algorithm (EchoGo Heart Failure by [employer]), the analysis of the apical 4-chamber echocardiogram [...] LA Area A2C: 22.6 cm2 LA [place] A4C: 7.6 cm LA [place] A2C: 7.3 cm LA Volume Index: 29.2 ml/m2 AORTA MEASUREMENTS: Normal Ranges: Asc Ao, d: 3.20 cm (2.1-3.4cm) LV SYSTOLIC FUNCTION BY 2D PLANIMETRY (MOD): Normal Ranges: EF-A4C View: 58 % (>=55%) EF-A2C View: 60 % EF-Biplane: 59 (more content not included)... Normal [facility] US Heart TransthoracicOrdere d By: Melly Benítez on 12-24-2023 Aortic Valve Area by Continuity of Peak Velocity 2.15 cm2 [facility] Work Phone: [phone] Aortic Valve Area by Continuity of VTI 1.98 cm2 [facility] Work Phone: [phone] AV mn grad 9 mmHg [facility] Work Phone: [phone] AV pk grad 13 mmHg [facility] Work Phone: [phone] AV pk martin 1.83 m/s [facility] Work Phone: [phone] Body surface area Derived from formula 2.36 m2 [facility] Work Phone: [phone] LA vol index A/L 29.2 ml/m2 [facility] Work Phone: [phone] LV A4C EF 58.4 [facility] Work Phone: [phone] LV EF 59 % [facility] Work Phone: [phone] LVIDd 5.6 cm [facility] Work Phone: [phone] LVOT diam 2 cm [facility] Work Phone: [phone] MV E/A ratio 0.88 [facility] Work Phone: [phone] RV free wall pk S' 16.8 cm/s [facility] Work Phone: [phone] Tricuspid annular plane systolic excursion 2.4 cm [facility] Work Phone: [facility] Work Phone: US Heart Transthoracicon [facility], [address] [place] [address] and TRANSTHORACIC ECHOCARDIOGRAM REPORT Patient Name: ITALIA Alfaro Physician: [id number] Melly Benítez MD Study Date: 12/24/2023 Ordering Provider: [id number] RAFI WALLER MRN/PID: [id number] Fellow: Nurse: Anai Sow RN Date of /Age: 6 1955 Food Service Driver: Ke mancia RDCS Gender assigned at M Additional Staff: : Height: 177.80 cm Admit Date: Weight: 112.04 kg Admission Status: Inpatient - Routine BSA / BMI: 2.28 m2 / 35.44 kg/m2 Blood Pressure: 151/79 mmHg Department Location: [facility] Non Invasive Study Type: TRANSTHORACIC ECHO (TTE) COMPLETE Diagnosis/ICD: Non ST elevation (NSTEMI) myocardial infarction-I21.4; Atherosclerotic heart disease of [place] coronary artery without angina pectoris-I25.10; Acute on chronic systolic (congestive) heart failure (CHF)-I50.23 Indication: ADHF, CHF, NSTEMI CPT Code: Echo Complete w Full Doppler-[id number] Patient History: Pertinent History: NSTEMI, CAD, HTN, [...] machine learning algorithm (EchoGo Heart Failure by [employer]), the analysis of the apical 4-chamber echocardiogram [...] not included)... Melly Alfaro MD - 12/24/2023 [facility], [address] [place] [address] and TRANSTHORACIC ECHOCARDIOGRAM REPORT Patient Name: ITALIA ALLEN Angelina Physician: [id number] Melly Benítez MD Study Date: 12/24/2023 Ordering Provider: [id number] RAFI WALLER MRN/PID: [id number] Fellow: Nurse: Anai Sow RN Date of /Age: 6 1955 Food Service Driver: Ke mancia RDSHANI Gender assigned at M Additional Staff: : Height: 177.80 cm Admit Date: Weight: 112.04 kg Admission Status: Inpatient - Routine BSA / BMI: 2.28 m2 / 35.44 kg/m2 Blood Pressure: 151/79 mmHg Department Location: [facility] Non Invasive Study Type: TRANSTHORACIC ECHO (TTE) COMPLETE Diagnosis/ICD: Non ST elevation (NSTEMI) myocardial infarction-I21.4; Atherosclerotic heart disease of [place] coronary artery without angina pectoris-I25.10; Acute on chronic systolic (congestive) heart failure (CHF)-I50.23 Indication: ADHF, CHF, NSTEMI CPT Code: Echo Complete w Full Doppler-[id number] Patient History: Pertinent History: NSTEMI, CAD, HTN, [...] an FDA cleared automated machine learning algorithm (Graphic IndiaGo Heart Failure by [employer]), the analysis of the apical 4-chamber echocardiogram [...] [place] Area A2C: 22.6 cm2 LA [place] A4C: 7.6 cm [place] A2C: 7.3 cm LA Volume Index: 29.2 ml/m2 AORTA MEASUREMENTS: Normal Ranges: Asc Ao, d: 3.20 cm (2.1-3.4cm) LV SYSTOLIC FUNC (more content not included)... [facility] Work Phone: Blood type and Indirect anti body screen panel (Bld)on 12-23-2023 ABO group Nom (Bld) A Normal [facility] Comment on above: Performed By: #### 5 902-2 #### ERICA Tam ([id number]) [facility] ([facility]) [address] [place] [address] Blood group antibody screen Ql Negative [facility] Comment on above: Performed By: #### 5 902-2 #### ERICA Tam ([id number]) [facility] ([facility]) [address] [place] [address] 90436 D Ag Ql (Bld) Positive Normal [facility] Comment on above: Result Comment: 2nd ABO test required. Order and Collect VERAB Performed By: #### 5 902-2 #### ERICA Tam ([id number]) [facility] ([facility]) [address] [place] [address] 48631 CBC panel Auto (Bld)on 12-22 Erythrocyte distribution width (RBC) [Ratio] 16.2 % High 11.5 - 14.5 % [facility] Hematocrit (Bld) [Volume fraction] 25.6 % Low 41.0 - 52.0 % [facility] Hemoglobin (Bld) [Mass/Vol] 7.8 g/dL Low 13.5 - 17.5 g/dL [facility] Interpretation and review of laboratory results Abnormal [facility] MCH (RBC) [Entitic mass] 28.5 pg 26.0 - 34.0 pg [facility] MCHC (RBC) [Mass/Vol] 30.5 g/dL Low 32.0 - 36.0 g/dL [facility] MCV (RBC) [Entitic vol] 93 fL 80 - 100 fL [facility] Nucleated RBC/100 WBC (Bld) [Ratio] 0 % [facility] Platelets (Bld) [#/Vol] 327 10*3/uL [facility] RBC (Bld) [#/Vol] 2.74 10*6/uL Low [facility] WBC (Bld) [#/Vol] 9.3 10*3/uL [facility] Erythrocyte distribution width (RBC) [Ratio] 16.2 % High 11.5-14.[address] [facility] Comment on above: Performed By: #### 5 902-2 #### ERICA Tam ([id number]) [facility] ([facility]) [address] [place] [address] 76439 Hematocrit (Bld) [Volume fraction] 25.6 % Low 41.0-52.[address] [facility] Comment on above: Performed By: #### 5 902-2 #### ERICA Tam ([id number]) [facility] ([facility]) [address] [place] [address]01 Hemoglobin (Bld) [Mass/Vol] 7.8 g/dL Low 13.5-17.[address] [facility] Comment on above: Performed By: #### 5 902-2 #### ERICA Tam ([id number]) [facility] ([facility]) [address] [place] [address] 87028 MCH (RBC) [Entitic mass] 28.5 pg Normal 26.0-34.[address] [facility] Comment on above: Performed By: #### 5 902-2 #### ERICA Tam ([id number]) [facility] ([facility]) [address] [place] [address], [place] [address] MCHC (RBC) [Mass/Vol] 30.5 g/dL Low 32.0-36.0 [facility] Comment on above: Performed By: #### 5 902-2 #### ERICA Tam ([id number]) [facility] ([facility]) [address] [place] [address] MCV (RBC) [Entitic vol] 93 fL Normal 80-100 [facility] Comment on above: Performed By: #### 5 902-2 #### ERICA Tam ([id number]) [facility] ([facility]) [id number] [place] [address] 67783 Nucleated RBC/100 WBC (Bld) [Ratio] 0.0 /100 WBCs Normal 0.0-0.[address] [facility] Comment on above: Performed By: #### 5 902-2 #### REICA Tam ([id number]) [facility] ([facility]) [id number] [place] [address] 38708 Platelets (Bld) [#/Vol] 327 x10*3/uL Normal 150-[address] [facility] Comment on above: Performed By: #### 5 902-2 #### ERICA Tam ([id number]) [facility] ([facility]) [id number] [place] [address] 87975 RBC (Bld) [#/Vol] 2.74 x10*6/uL Low 4.50-5.90 [facility] Comment on above: Performed By: #### 5 902-2 #### ERICA Tam ([id number]) [facility] ([facility]) [address] [place] [address] WBC (Bld) [#/Vol] 9.3 x10*3/uL Normal 4.4-11.3 [facility] Comment on above: Performed By: #### 5 902-2 #### ERICA Tam ([id number]) [facility] ([facility]) [id number] [place] [address] 56674 Cobalamin (Vitamin B12) [Mas s/Vol]on 12-23-2023 Interpretation and review of laboratory results Normal [facility] Cobalaminson 12-23-2023 Cobalamin (Vitamin B12) [Mass/Vol] 283 pg/mL Normal 211-[address] [facility] Comment on above: Performed By: #### 5 902-2 #### ERICA Tam ([id number]) [facility] ([facility]) [address] [place], [place] [address] Ferritinon 12-23-2023 Ferritin [Mass/Vol] 198 ng/mL 20 - 300 ng/mL [facility] Ferritin [Mass/Vol]on 2023 Interpretation and review of laboratory results Normal [facility] Folateon 12-23-2023 Folate [Mass/Vol] 5.6 ng/mL 5.0 - PINF ng/mL [facility] Folate [Mass/Vol] 5.6 ng/mL Normal >5.0 [facility] Comment on above: Order Comment: If val monroe has not had PT + INR in the last 24 hours. Nursing to release order. Performed By: #### 5 902-2 #### ERICA Tam ([id number]) [facility] ([facility]) [address] [place], [place] [address] Folate [Mass/Vol]on 12-23-19 Interpretation and review of laboratory results Normal [facility] Low <3.4 Borderline 3.4-5.0 Normal >5.0 Patients receiving more than 5 mg/day of biotin may have interference in test results. A sample should be taken no sooner than eight hours after previous dose. Contact the testing laboratory for additional information. [facility] Glucose Test strip manual (B ld) [Mass/Vol]on 12-23-2023 Glucose [Mass/Vol] 186 mg/dL High 74 - 99 mg/dL [facility] Interpretation and review of laboratory results Abnormal [facility] Glucose [Mass/Vol] 186 mg/dL High 74-99 [facility] Comment on above: Performed By: #### 5 902-2 #### ERICA Tam ([id number]) [facility] ([facility]) [address] [place] [address] 69120 Glucose [Mass/Vol] 100 mg/dL High 74 - 99 mg/dL [facility] Interpretation and review of laboratory results Abnormal [facility] Glucose [Mass/Vol] 100 mg/dL High 74-99 [facility] Comment on above: Performed By: #### 5 902-2 #### ERICA Tam ([id number]) [facility] ([facility]) [address] [place] [address] 39694 Glucose [Mass/Vol] 126 mg/dL High 74 - 99 mg/dL [facility] Interpretation and review of laboratory results Abnormal [facility] Glucose [Mass/Vol] 126 mg/dL High 74-99 [facility] Comment on above: Performed By: #### 5 902-2 #### ERICA Tam ([id number]) [facility] ([facility]) [address] [place] [address] 46962 Glucose [Mass/Vol] 159 mg/dL High 74 - 99 mg/dL [facility] Interpretation and review of laboratory results Abnormal [facility] Glucose [Mass/Vol] 159 mg/dL High 74-99 [facility] Comment on above: Performed By: #### 5 902-2 #### ERICA Tam ([id number]) [facility] ([facility]) [address] [place] [address] 06252 Heparin Assayon 12-23-2023 Heparin unfractionated Chromogenic method Qn (PPP) 0.4 See Comment Below for Therapeutic Ranges IU/mL [facility] Heparin unfractionated Chromogenic method Qn (PPP) 0.4 See Comment Below for Therapeutic Ranges IU/mL [facility] Heparin unfractionated Chrom ogenic method Qn (PPP)on 12-23-2023 Interpretation and review of laboratory results Normal [facility] The therapeutic reference range for UFH may be either 0.3-0.6 IU/mL or 0.3-0.7 IU/mL based on the clinical setting for anticoagulant therapy and the associated nomogram used. For Heparin dosing guidelines based on clinical scenario and Heparin Assay results, please refer to local Pharmacy and the [facility] Guidelines for Anticoagulation Therapy available on the [facility] intranet at: [email or web address]_ Guidelines_for_Anticoagu .aspx [facility] Interpretation and review of laboratory results Normal [facility] The therapeutic reference range for UFH may be either 0.3-0.6 IU/mL or 0.3-0.7 IU/mL based on the clinical setting for anticoagulant therapy and the associated nomogram used. For Heparin dosing guidelines based on clinical scenario and Heparin Assay results, please refer to local Pharmacy and the [facility] Guidelines for Anticoagulation Therapy available on the [facility] intranet at: [email or web address]_ Guidelines_for_Anticoagu .aspx [facility] Heparin.unfractionatedon Heparin unfractionated Chromogenic method Qn (PPP) 0.4 IU/mL Normal See Comment Below for Therapeutic Ranges [facility] Comment on above: Order Comment: If val monroe has not had PT + INR in the last 24 hours. Nursing to release order. Performed By: #### 5 902-2 #### ERICA Tam ([id number]) [facility] ([facility]) [address] [place] [address] Heparin unfractionated Chromogenic method Qn (PPP) 0.4 IU/mL Normal See Comment Below for Therapeutic Ranges [facility] Comment on above: Order Comment: If val monroe has not had PT + INR in the last 24 hours. Nursing to release order. Performed By: #### 5 902-2 #### ERICA Tam ([id number]) [facility] ([facility]) [address] [place] [address] 85678 Iron and Iron binding capaci ty panelon 12-23-2023 Interpretation and review of laboratory results Abnormal [facility] Iron [Mass/Vol] 34 ug/dL Low 35 - 150 ug/dL [facility] Iron binding capacity [Mass/Vol] 231 ug/dL Low 240 - 445 ug/dL [facility] Iron binding capacity.unsaturated [Mass/Vol] 197 ug/dL 110 - 370 ug/dL [facility] Iron saturation [Mass fraction] 15 % Low 25 - 45 % [facility] Lipid 1996 panelon 4 Cholesterol [Mass/Vol] 102 mg/dL 0 - 1 99 mg/dL [facility] Comment on above: Age Desirable Borderline [...] dosing. Cholesterol in HDL [Mass/Vol] 26.4 mg/dL [facility] Comment on above: Age Very Low Low Normal High 0-19 Y < 35 < 40 40-45 ---- 20-24 Y ---- < 40 >45 ---- >24 Y ---- < 40 40-60 >60 Cholesterol in LDL [Mass/Vol] 39 mg/dL NINF - 99 mg/dL [facility] Comment on above: Near Borderline AGE Desirable Optimal High High Very High 0-19 Y 0 - 109 --- 110-129 >/= 130 ---- 20-24 Y 0 - 119 --- 120-159 >/= 160 ---- >24 Y 0 - 99 100-129 130-159 160-189 >/=190 Cholesterol in VLDL [Mass/Vol] 37 mg/dL 0 - 40 mg/dL [facility] Cholesterol.total/Cele sterol in HDL [Mass ratio] 3.9 {ratio} [facility] Comment on above: Ref Values Desirable < 3.4 High Risk > 5.0 Interpretation and review of laboratory results Abnormal [facility] Non HDL Cholesterol 76 mg/dL 0 - 149 mg/dL [facility] Comment on above: Age Desirable Borderline High High Very High 0-19 Y 0 - 119 120 - 144 >/= 145 >/= 160 20-24 Y 0 - 149 150 - 189 >/= 190 ---- >24 Y 30 mg/dL above LDL Cholesterol goal Triglyceride [Mass/Vol] 185 mg/dL High 0 - 149 mg/dL [facility] Comment on above: Age Desirable Border [...] be performed immediately prior to Metamizole dosing. [facility] Magnesiumon 12-23-2023 Magnesium [Mass/Vol] 1.95 mg/dL 1.60 - 2.40 mg/dL [facility] Magnesium [Mass/Vol] 1.95 mg/dL Normal 1.60-2.40 [facility] Comment on above: Performed By: #### 5 902-2 #### ERICA Tam ([id number]) [facility] ([facility]) [address] [place] [address] Magnesium [Mass/Vol]on 12-22 Interpretation and review of laboratory results Normal [facility] No Panel Informationon 12-22 [facility] Renal function 2000 panelon 12-23-2023 Albumin BCP dye [Mass/Vol] 3.2 g/dL Low 3.4 - 5.0 g/dL [facility] Anion gap [Moles/Vol] 12 mmol/L 10 - 2 0 mmol/L [facility] Calcium [Mass/Vol] 8.7 mg/dL 8.6 - 10. 6 mg/dL [facility] Chloride [Moles/Vol] 103 mmol/L 98 - 10 7 mmol/L [facility] CO2 [Moles/Vol] 29 mmol/L 21 - 32 mmol/L [facility] Creatinine [Mass/Vol] 1.68 mg/dL High 0.50 - 1.30 mg/dL [facility] GFR/1.73 sq M.predicted among non-blacks MDRD (S/P/Bld) [Vol rate/Area] 44 mL/min/{1.73_m2} Low - PINF [facility] Comment on above: Calculations of [place] mated GFR are performed using the 2020 CKD-EPI Study Refit equation without the race variable for the IDMS-Traceable creatinine methods. https://jasn.asnjournals.org/content/early//ASN.2020 175288 Glucose [Mass/Vol] 182 mg/dL High 74 - 99 mg/dL [facility] Interpretation and review of laboratory results Abnormal [facility] Phosphate [Mass/Vol] 3.4 mg/dL 2.5 - 4 .9 mg/dL [facility] Comment on above: The performance cecilia acteristics of phosphorus testing in heparinized plasma have been validated by the individual laboratory site where testing is performed. Testing on heparinized plasma is not approved by the FDA; however, such approval is not necessary. Potassium [Moles/Vol] 3.8 mmol/L 3.5 - 5.3 mmol/L [facility] Sodium [Moles/Vol] 140 mmol/L 136 - 145 mmol/L [facility] Urea nitrogen [Mass/Vol] 49 mg/dL High 6 - 23 mg/dL [facility] Albumin BCP dye [Mass/Vol] 3.2 g/dL Low 3.4-5.[address] [facility] Comment on above: Performed By: #### 5 902-2 #### ERICA Tam ([id number]) [facility] ([facility]) [address] [place] [address] Anion gap [Moles/Vol] 12 mmol/L Normal 10-20 [facility] Comment on above: Performed By: #### 5 902-2 #### ERICA HIGGINSER L ([id number]) [facility] ([facility]) [address] [place] [address] Calcium [Mass/Vol] 8.7 mg/dL Normal 8.6-10.6 [facility] Comment on above: Performed By: #### 5 902-2 #### ERICA RESTREPOMOTZER L ([id number]) [facility] ([facility]) [id number] [place] [address] 75730 Chloride [Moles/Vol] 103 mmol/L Normal 98-107 [facility] Comment on above: Performed By: #### 5 902-2 #### ERICA RESTREPOMOJOELLEER L ([id number]) [facility] ([facility]) [id number] [place] [address] 88333 CO2 [Moles/Vol] 29 mmol/L Normal 21-[address] [facility] Comment on above: Performed By: #### 5 902-2 #### ERICA RESTREPOMOJOELLEER L ([id number]) [facility] ([facility]) [id number] [place] [address] 32201 Creatinine [Mass/Vol] 1.68 mg/dL High 0.50-1.30 [facility] Comment on above: Performed By: #### 5 902-2 #### ERICA RESTREPOMOTZER L ([id number]) [facility] ([facility]) [id number] [place] [address] 52983 Glomerular filtration rate/1.73 sq M.predicted 44 mL/min/1.73m*2 Low >[address] [facility] Comment on above: Result Comment: Calc ulations of estimated GFR are performed using the 2020 CKD-EPI Study Refit equation without the race variable for the IDMS-Traceable creatinine methods. https://jasn.asnjournals.org/content/early/ASN.2020 219131 Performed By: #### 5 902-2 #### ERICA MCDONALD L ([id number]) [facility] ([facility]) [id number] [place] [address] 21748 Glucose [Mass/Vol] 182 mg/dL High 74-99 [facility] Comment on above: Performed By: #### 5 902-2 #### ERICA Tam ([id number]) [facility] ([facility]) [id number] [place] [address] 64849 Phosphate [Mass/Vol] 3.4 mg/dL Normal 2.5-4.9 [facility] Comment on above: Result Comment: The performance characteristics of phosphorus testing in heparinized plasma have been validated by the individual laboratory site where testing is performed. Testing on heparinized plasma is not approved by the FDA; however, such approval is not necessary. Performed By: #### 5 902-2 #### ERICA Tam ([id number]) [facility] ([facility]) [address] [place] [address] 98654 Potassium [Moles/Vol] 3.8 mmol/L Normal 3.5-5.3 [facility] Comment on above: Performed By: #### 5 902-2 #### ERICA Tam ([id number]) [facility] ([facility]) [address] [place] [address] 07654 Sodium [Moles/Vol] 140 mmol/L Normal 136-145 [facility] Comment on above: Performed By: #### 5 902-2 #### ERICA Tam ([id number]) [facility] ([facility]) [address] [place] [address] 29250 Urea nitrogen [Mass/Vol] 49 mg/dL High 6-[address] [facility] Comment on above: Performed By: #### 5 902-2 #### ERICA Tam ([id number]) [facility] ([facility]) [address] [place] [address] 82577 Vitamin B12on 12-23-2023 Cobalamin (Vitamin B12) [Mass/Vol] 283 pg/mL 211 - 911 pg/mL [facility] CBC W Auto Differential pane l (Bld)on 12-22-2023 Basophils (Bld) [#/Vol] 0.05 10*3/uL [facility] Basophils/100 WBC (Bld) 0.6 % 0.0 - 2.0 % [facility] Eosinophils (Bld) [#/Vol] 0.4 10*3/uL [facility] Eosinophils/100 WBC (Bld) 4.9 % 0.0 - 6.0 % [facility] Erythrocyte distribution width (RBC) [Ratio] 16 % High 11.5 - 14.5 % [facility] Hematocrit (Bld) [Volume fraction] 24.6 % Low 41.0 - 52.0 % [facility] Hemoglobin (Bld) [Mass/Vol] 7.5 g/dL Low 13.5 - 17.5 g/dL [facility] Immature granulocytes (Bld) [#/Vol] 0.07 10*3/uL [facility] Immature granulocytes/100 WBC (Bld) 0.9 % 0.0 - 0.9 % [facility] Comment on above: Immature Granulocyte Count (IG) includes promyelocytes, myelocytes and metamyelocytes but does not include bands. Percent differential counts (%) should be interpreted in the context of the absolute cell counts (cells/UL). Interpretation and review of laboratory results Abnormal [facility] Lymphocytes (Bld) [#/Vol] 0.79 10*3/uL Low [facility] Lymphocytes/100 WBC (Bld) 9.7 % 13.0 - 44.0 % [facility] MCH (RBC) [Entitic mass] 28.6 pg 26.0 - 34.0 pg [facility] MCHC (RBC) [Mass/Vol] 30.5 g/dL Low 32.0 - 36.0 g/dL [facility] MCV (RBC) [Entitic vol] 94 fL 80 - 100 fL [facility] Monocytes (Bld) [#/Vol] 0.68 10*3/uL [facility] Monocytes/100 WBC (Bld) 8.4 % 2.0 - 10.0 % [facility] Neutrophils (Bld) [#/Vol] 6.15 10*3/uL [facility] Comment on above: Percent differential counts (%) should be interpreted in the context of the absolute cell counts (cells/uL). Neutrophils/100 WBC (Bld) 75.5 % 40.0 - 80.0 % [facility] Nucleated RBC/100 WBC (Bld) [Ratio] 0 % [facility] Platelets (Bld) [#/Vol] 316 10*3/uL [facility] RBC (Bld) [#/Vol] 2.62 10*6/uL Low [facility] WBC (Bld) [#/Vol] 8.1 10*3/uL [facility] Basophils (Bld) [#/Vol] 0.05 x10*3/uL Normal 0.00-0.[address] [facility] Comment on above: Performed By: #### 5 8077-9 #### ERICA Tam ([id number]) [facility] ([facility]) [address] [place] [address] 25311 Basophils/100 WBC (Bld) 0.6 % Normal 0.0-2.0 [facility] Comment on above: Performed By: #### 5 8077-9 #### ERICA Tam ([id number]) [facility] ([facility]) [address] [place] [address] 65378 Eosinophils (Bld) [#/Vol] 0.40 x10*3/uL Normal 0.00-0.[address] [facility] Comment on above: Performed By: #### 5 8077-9 #### ERICA Tam ([id number]) [facility] ([facility]) [address] [place] [address] 11464 Eosinophils/100 WBC (Bld) 4.9 % Normal 0.0-6.[address] [facility] Comment on above: Performed By: #### 5 8077-9 #### ERICA Tam ([id number]) [facility] ([facility]) [address] [place] [address] [address] Erythrocyte distribution width (RBC) [Ratio] 16.0 % High 11.5-14.[address] [facility] Comment on above: Performed By: #### 5 8077-9 #### ERICA Tam ([id number]) [facility] ([facility]) [address] [place] [address] Hematocrit (Bld) [Volume fraction] 24.6 % Low 41.0-52.[address] [facility] Comment on above: Performed By: #### 5 8077-9 #### ERICA MCDONALD L ([id number]) [facility] ([facility]) [address] [place] [address] 83244 Hemoglobin (Bld) [Mass/Vol] 7.5 g/dL Low 13.5-17.[address] [facility] Comment on above: Performed By: #### 5 8077-9 #### ERICA Tam ([id number]) [facility] ([facility]) [address] [place] [address] 89433 Immature granulocytes (Bld) [#/Vol] 0.07 x10*3/uL Normal 0.00-0.[address] [facility] Comment on above: Performed By: #### 5 8077-9 #### ERICA Tam ([id number]) [facility] ([facility]) [address] [place] [address]70 Immature granulocytes/100 WBC (Bld) 0.9 % Normal 0.0-0.[address] [facility] Comment on above: Result Comment: Daniela ture Granulocyte Count (IG) includes promyelocytes, myelocytes and metamyelocytes but does not include bands. Percent differential counts (%) should be interpreted in the context of the absolute cell counts (cells/UL). Performed By: #### 5 8077-9 #### ERICA Tam ([id number]) [facility] ([facility]) [id number] [place] [address] 96493 Lymphocytes (Bld) [#/Vol] 0.79 x10*3/uL Low 1.20-4.[address] [facility] Comment on above: Performed By: #### 5 8077-9 #### ERICA MCDONALD L ([id number]) [facility] ([facility]) [id number] [place] [address] 61185 Lymphocytes/100 WBC (Bld) 9.7 % Normal 13.0-44.[address] [facility] Comment on above: Performed By: #### 5 8077-9 #### ERICA Tam ([id number]) [facility] ([facility]) [id number] [place] [address] 63595 MCH (RBC) [Entitic mass] 28.6 pg Normal 26.0-34.[address] [facility] Comment on above: Performed By: #### 5 8077-9 #### ERICA Tam ([id number]) [facility] ([facility]) [address] [place] [address] 13634 MCHC (RBC) [Mass/Vol] 30.5 g/dL Low 32.0-36.0 [facility] Comment on above: Performed By: #### 5 8077-9 #### ERICA Tam ([id number]) [facility] ([facility]) [address] [place] [address] 01884 MCV (RBC) [Entitic vol] 94 fL Normal 80-100 [facility] Comment on above: Performed By: #### 5 8077-9 #### ERICA Tam ([id number]) [facility] ([facility]) [address] [place] [address] 21310 Monocytes (Bld) [#/Vol] 0.68 x10*3/uL Normal 0.10-1.[address] [facility] Comment on above: Performed By: #### 5 8077-9 #### ERICA Tam ([id number]) [facility] ([facility]) [id number] [place] [address] 64862 Monocytes/100 WBC (Bld) 8.4 % Normal 2.0-10.0 [facility] Comment on above: Performed By: #### 5 8077-9 #### ERICA Tam ([id number]) [facility] ([facility]) [address] [place] [address] 30108 Neutrophils (Bld) [#/Vol] 6.15 x10*3/uL Normal 1.20-7.[address] [facility] Comment on above: Result Comment: Perc ent differential counts (%) should be interpreted in the context of the absolute cell counts (cells/uL). Performed By: #### 5 8077-9 #### ERICA Tam ([id number]) [facility] ([facility]) [address] [place] [address] Neutrophils/100 WBC (Bld) 75.5 % Normal 40.0-80.[address] [facility] Comment on above: Performed By: #### 5 8077-9 #### ERICA Tam ([id number]) [facility] ([facility]) [id number] [place] [address] 01053 Nucleated RBC/100 WBC (Bld) [Ratio] 0.0 /100 WBCs Normal 0.0-0.[address] [facility] Comment on above: Performed By: #### 5 8077-9 #### ERICA Tam ([id number]) [facility] ([facility]) [address] [place] [address] 16265 Platelets (Bld) [#/Vol] 316 x10*3/uL Normal 150-[address] [facility] Comment on above: Performed By: #### 5 8077-9 #### ERICA Tam ([id number]) [facility] ([facility]) [address] [place] [address] 81315 RBC (Bld) [#/Vol] 2.62 x10*6/uL Low 4.50-5.90 [facility] Comment on above: Performed By: #### 5 8077-9 #### ERICA Tam ([id number]) [facility] ([facility]) [id number] [place] [address] 28412 WBC (Bld) [#/Vol] 8.1 x10*3/uL Normal 4.4-11.3 [facility] Comment on above: Performed By: #### 5 8077-9 #### ERICA Tam ([id number]) [facility] ([facility]) [address] [place] [address] Comprehensive metabolic 2000 panelon 12-22-2023 Albumin BCP dye [Mass/Vol] 3 g/dL Low 3.4 - 5.0 g/dL [facility] ALP [Catalytic activity/Vol] 63 U/L 33 - 136 U/L [facility] ALT With P-5'-P [Catalytic activity/Vol] 15 U/L 10 - 52 U/L [facility] Comment on above: Patients treated wit h Sulfasalazine may generate falsely decreased results for ALT. Anion gap [Moles/Vol] 17 mmol/L 10 - 2 0 mmol/L [facility] AST With P-5'-P [Catalytic activity/Vol] 12 U/L 9 - 39 U/L [facility] Bilirubin [Mass/Vol] 0.4 mg/dL 0.0 - 1 .2 mg/dL [facility] Calcium [Mass/Vol] 8.3 mg/dL Low 8.6 - 10. 6 mg/dL [facility] Chloride [Moles/Vol] 103 mmol/L 98 - 10 7 mmol/L [facility] CO2 [Moles/Vol] 23 mmol/L 21 - 32 mmol/L [facility] Creatinine [Mass/Vol] 1.95 mg/dL High 0.50 - 1.30 mg/dL [facility] GFR/1.73 sq M.predicted among non-blacks MDRD (S/P/Bld) [Vol rate/Area] 37 mL/min/{1.73_m2} Low - PINF [facility] Comment on above: Calculations of mercedez mated GFR are performed using the 2020 CKD-EPI Study Refit equation without the race variable for the IDMS-Traceable creatinine methods. https://jasn.asnjournals.org/content/early//ASN.2020 216974 Glucose [Mass/Vol] 174 mg/dL High 74 - 99 mg/dL [facility] Interpretation and review of laboratory results Abnormal [facility] Potassium [Moles/Vol] 4.5 mmol/L 3.5 - 5.3 mmol/L [facility] Protein [Mass/Vol] 5.4 g/dL Low 6.4 - 8.2 g/dL [facility] Sodium [Moles/Vol] 138 mmol/L 136 - 145 mmol/L [facility] Urea nitrogen [Mass/Vol] 48 mg/dL High 6 - 23 mg/dL [facility] Albumin BCP dye [Mass/Vol] 3.0 g/dL Low 3.4-5.[address] [facility] Comment on above: Performed By: #### 5 8077-9 #### ERICA Tam ([id number]) [facility] ([facility]) [address] [place] [address] 22319 ALP [Catalytic activity/Vol] 63 U/L Normal 33-[address] [facility] Comment on above: Performed By: #### 5 8077-9 #### ERICA Tam ([id number]) [facility] ([facility]) [address] [place] [address] 70745 ALT With P-5'-P [Catalytic activity/Vol] 15 U/L Normal 10-[address] [facility] Comment on above: Result Comment: Criselda ents treated with Sulfasalazine may generate falsely decreased results for ALT. Performed By: #### 5 8077-9 #### ERICA Tam ([id number]) [facility] ([facility]) [id number] [place] [address] 23607 Anion gap [Moles/Vol] 17 mmol/L Normal 10-20 [facility] Comment on above: Performed By: #### 5 8077-9 #### ERICA Tam ([id number]) [facility] ([facility]) [address] [place] [address] 02638 AST With P-5'-P [Catalytic activity/Vol] 12 U/L Normal 9-[address] [facility] Comment on above: Performed By: #### 5 8077-9 #### ERICA Tam ([id number]) [facility] ([facility]) [id number] [place] [address] 98599 Bilirubin [Mass/Vol] 0.4 mg/dL Normal 0.0-1.2 [facility] Comment on above: Performed By: #### 5 8077-9 #### ERICA Tam ([id number]) [facility] ([facility]) [address] [place] [address] Calcium [Mass/Vol] 8.3 mg/dL Low 8.6-10.6 [facility] Comment on above: Performed By: #### 5 8077-9 #### ERICA MCDONALD L ([id number]) [facility] ([facility]) [address] [place] [address] Chloride [Moles/Vol] 103 mmol/L Normal 98-107 [facility] Comment on above: Performed By: #### 5 8077-9 #### ERICA MCDONALD L ([id number]) [facility] ([facility]) [address] [place] [address] CO2 [Moles/Vol] 23 mmol/L Normal 21-[address] [facility] Comment on above: Performed By: #### 5 8077-9 #### ERICA MCDONALD L ([id number]) [facility] ([facility]) [address] [place] [address] Creatinine [Mass/Vol] 1.95 mg/dL High 0.50-1.30 [facility] Comment on above: Performed By: #### 5 8077-9 #### ERICA MCDONALD L ([id number]) [facility] ([facility]) [address] [place] [address] 89506 Glomerular filtration rate/1.73 sq M.predicted 37 mL/min/1.73m*2 Low >[address] [facility] Comment on above: Result Comment: Calc ulations of estimated GFR are performed using the 2020 CKD-EPI Study Refit equation without the race variable for the IDMS-Traceable creatinine methods. https://jasn.asnjournals.org/content//ASN.2020 779144 Performed By: #### 5 8077-9 #### ERICA MCDONALD L ([id number]) [facility] ([facility]) [address] [place] [address] Glucose [Mass/Vol] 174 mg/dL High 74-99 [facility] Comment on above: Performed By: #### 5 8077-9 #### ERICA MCDONALD L ([id number]) [facility] ([facility]) [address] [place] [address] 52878 Potassium [Moles/Vol] 4.5 mmol/L Normal 3.5-5.3 [facility] Comment on above: Performed By: #### 5 8077-9 #### ERICA MCDONALD L ([id number]) [facility] ([facility]) [address] [place] [address] 58627 Protein [Mass/Vol] 5.4 g/dL Low 6.4-8.2 [facility] Comment on above: Performed By: #### 5 8077-9 #### ERICA MCDONALD L ([id number]) [facility] ([facility]) [address] [place] [address] 99840 Sodium [Moles/Vol] 138 mmol/L Normal 136-145 [facility] Comment on above: Performed By: #### 5 8077-9 #### ERICA MCDONALD L ([id number]) [facility] ([facility]) [address] [place] [address] 50139 Urea nitrogen [Mass/Vol] 48 mg/dL High 6-[address] [facility] Comment on above: Performed By: #### 5 8077-9 #### ERICA MCDONALD L ([id number]) [facility] ([facility]) [address] [place] [address] 52934 ECG 12-LEADon 12-22-2023 ECG 12-LEAD Ventricular Rate 77 Atrial Rate 77 P-R Interval 186 QRS Duration 92 Q-T Interval 378 QTC Calculation(Bazett) 427 P Pinetta 2 R Pinetta 27 T Pinetta 124 QRS Count 13 Q Onset 221 P Onset 128 P Offset 170 T Offset 410 QTC Fredericia 410 Diagnosis Sinus rhythm with frequent Premature ventricular complexes Nonspecific T wave abnormality Abnormal ECG When compared with ECG of 22-DEC-2023 11:44, No significant change was found Confirmed by Santiago Pope ([id number]) on 12/25/2023 11:27:31 AM Normal [facility] Ferritinon 12-22-2023 Ferritin [Mass/Vol] 198 ng/mL Normal 20-300 [facility] Comment on above: Performed By: #### 5 902-2 #### ERICA Tam ([id number]) [facility] ([facility]) [address] [place] [address] 29694 Glucose Test strip manual (B ld) [Mass/Vol]on 12-22-2023 Glucose [Mass/Vol] 191 mg/dL High 74 - 99 mg/dL [facility] Interpretation and review of laboratory results Abnormal [facility] Glucose [Mass/Vol] 191 mg/dL High 74-99 [facility] Comment on above: Performed By: #### 5 902-2 #### ERICA Tam ([id number]) [facility] ([facility]) [address] [place] [address] 62333 Glucose [Mass/Vol] 209 mg/dL High 74 - 99 mg/dL [facility] Interpretation and review of laboratory results Abnormal [facility] Glucose [Mass/Vol] 209 mg/dL High 74-99 [facility] Comment on above: Performed By: #### 5 902-2 #### ERICA Tam ([id number]) [facility] ([facility]) [address] [place] [address] 92101 Glucose [Mass/Vol] 210 mg/dL High 74 - 99 mg/dL [facility] Interpretation and review of laboratory results Abnormal [facility] Glucose [Mass/Vol] 210 mg/dL High 74-99 [facility] Comment on above: Performed By: #### 5 8077-9 #### ERICA Tam ([id number]) [facility] ([facility]) [address] [place] [address] 39516 Glucose [Mass/Vol] 171 mg/dL High 74 - 99 mg/dL [facility] Interpretation and review of laboratory results Abnormal [facility] Glucose [Mass/Vol] 171 mg/dL High 74-99 [facility] Comment on above: Performed By: #### 5 8077-9 #### ERICA Tam ([id number]) [facility] ([facility]) [address] [place] [address] HbA1c (Bld) [Mass fraction]o n 12-22-2023 Average glucose Estimated from glycated hemoglobin (Bld) [Mass/Vol] 148 mg/dL Not Established [facility] Interpretation and review of laboratory results Abnormal [facility] Diagnosis of Diabetes-Adults Non-Diabetic: < or = 5.6% Increased risk for developing diabetes: 5.7-6.4% Diagnostic of diabetes: > or = 6.5% [facility] Average glucose Estimated from glycated hemoglobin (Bld) [Mass/Vol] 148 mg/dL Normal Not Established [facility] Comment on above: Order Comment: Diagn osis of Cghzmcoo-LxeqxzJua-Mnlrhlzh: < or = 5.6%Increased risk for developing diabetes: 5.7-6.4%Diagnostic of diabetes: > or = 6.5% Performed By: #### 5 8077-9 #### ERICA Tam ([id number]) [facility] ([facility]) [address] [place] [address] Hemoglobin A1con 12-22-2023 HbA1c (Bld) [Mass fraction] 6.8 % High See comment [facility] Hemoglobin A1c/Hemoglobin.to guero 12-22-2023 HbA1c (Bld) [Mass fraction] 6.8 % High See comment [facility] Comment on above: Order Comment: Diagn osis of Kjotgjpl-UlxqnpBav-Bhjegger: < or = 5.6%Increased risk for developing diabetes: 5.7-6.4%Diagnostic of diabetes: > or = 6.5% Performed By: #### 5 8077-9 #### ERICA Tam ([id number]) [facility] ([facility]) [address] [place] [address] Heparin AssayOrdered By: nErique Santiago on 12-22-2023 Heparin unfractionated Chromogenic method Qn (PPP) See Comment Below for Therapeutic Ranges IU/mL [facility] Heparin Assay, UFHon 024 Heparin unfractionated Chromogenic method Qn (PPP) 0.1 See Comment Below for Therapeutic Ranges IU/mL [facility] Heparin unfractionated Chrom ogenic method Qn (PPP)on 12-22-2023 Interpretation and review of laboratory results Normal [facility] The therapeutic reference range for UFH may be either 0.3-0.6 IU/mL or 0.3-0.7 IU/mL based on the clinical setting for anticoagulant therapy and the associated nomogram used. For Heparin dosing guidelines based on clinical scenario and Heparin Assay results, please refer to local Pharmacy and the [facility] Guidelines for Anticoagulation Therapy available on the [facility] intranet at: [email or web address]/[email or web address] es/[facility]_ Guidelines_for_Anticoagu .aspx [facility] Heparin unfractionated Chrom ogenic method Qn (PPP)Ordered By: Michael Santiago on 12-22-2023 Interpretation and review of laboratory results Normal [facility] The therapeutic reference range for UFH may be either 0.3-0.6 IU/mL or 0.3-0.7 IU/mL based on the clinical setting for anticoagulant therapy and the associated nomogram used. For Heparin dosing guidelines based on clinical scenario and Heparin Assay results, please refer to local Pharmacy and the [facility] Guidelines for Anticoagulation Therapy available on the [facility] intranet at: [email or web address]/[email or web address] es/[facility]_ Guidelines_for_Anticoagu .aspx [facility] Heparin.unfractionatedon Heparin unfractionated Chromogenic method Qn (PPP) 0.1 IU/mL Normal See Comment Below for Therapeutic Ranges [facility] Comment on above: Order Comment: Obtai [...] please refer to local Pharmacy and the [facility] Guidelines for Anticoagulation Therapy available on the [facility] intranet at: [email or web address]/[email or web address]_ [facility]_Guidelines_for_Anticoagu.aspx Performed By: #### 5 8077-9 #### ERICA Tam ([id number]) [facility] ([facility]) [address] [place] [address] 21879 Heparin unfractionated Chromogenic method Qn (PPP) <0.1 Normal See Comment Below for Therapeutic Ranges [facility] Comment on above: Order Comment: The t herapeutic reference range for UFH may be either 0.3-0.6 IU/mL or 0.3-0.7 IU/mL based on the clinical setting for anticoagulant therapy and the associated nomogram used. For Heparin dosing guidelines based on clinical scenario and Heparin Assay results, please refer to local Pharmacy and the [facility] Guidelines for Anticoagulation Therapy available on the [facility] intranet at: [email or web address]/Pharmacy/Pages/[facility]_ [facility]_Guidelines_for_Anticoagu.aspx Performed By: #### 5 8077-9 #### ERICA Tam ([id number]) [facility] ([facility]) [address] [place] [address] 56758 Iron and Iron binding capaci ty panelon 12-22-2023 Iron [Mass/Vol] 34 ug/dL Low 35-[address] [facility] Comment on above: Performed By: #### 5 902-2 #### ERICA Tam ([id number]) [facility] ([facility]) [address] [place] [address] 68771 Iron binding capacity [Mass/Vol] 231 ug/dL Low 240-[address] [facility] Comment on above: Performed By: #### 5 902-2 #### ERICA Tam ([id number]) [facility] ([facility]) [address] [place] [address] 82490 Iron binding capacity.unsaturated [Mass/Vol] 197 ug/dL Normal 110-[address] [facility] Comment on above: Performed By: #### 5 902-2 #### ERICA Tam ([id number]) [facility] ([facility]) [address] [place] [address] Iron saturation [Mass fraction] 15 % Low 25-[address] [facility] Comment on above: Performed By: #### 5 902-2 #### ERICA Tam ([id number]) [facility] ([facility]) [id number] [place] [address] 10648 Lipid 1996 panelon 4 Cholesterol [Mass/Vol] 102 mg/dL Normal 0-199 Un [facility] Comment on above: Result Comment: Age [...] By: #### 5 902-2 #### ERICA Tam ([id number]) [facility] ([facility]) [address] [place] [address] 72650 Cholesterol in HDL [Mass/Vol] 26.4 mg/dL Normal [facility] Comment on above: Result Comment: Age Very Low Low Normal High 0-19 Y < 35 < 40 40-45 ---- 20-24 Y ---- < 40 >45 ---- >24 Y ---- < 40 40-60 >60 Performed By: #### 5 902-2 #### ERICA Tam ([id number]) [facility] ([facility]) [id number] [place] [address] 74969 Cholesterol in LDL [Mass/Vol] 39 mg/dL Normal <=[address] [facility] Comment on above: Result Comment: Near Borderline AGE Desirable Optimal High High Very High 0-19 Y 0 - 109 --- 110-129 >/= 130 ---- 20-24 Y 0 - 119 --- 120-159 >/= 160 ---- >24 Y 0 - 99 100-129 130-159 160-189 >/=190 Performed By: #### 5 902-2 #### ERICA Tam ([id number]) [facility] ([facility]) [address] [place] [address] Cholesterol in VLDL [Mass/Vol] 37 mg/dL Normal 0-[address] [facility] Comment on above: Performed By: #### 5 902-2 #### ERICA Tam ([id number]) [facility] ([facility]) [address] [place] [address] CHOLESTEROL/HDL RATIO 3.9 Normal [facility] Comment on above: Result Comment: Ref Values Desirable < 3.4 High Risk > 5.0 Performed By: #### 5 902-2 #### ERICA Tam ([id number]) [facility] ([facility]) [address] [place] [address] NON HDL CHOLESTEROL 76 mg/dL Normal 0-149 [facility] Comment on above: Result Comment: Age Desirable Borderline High High Very High 0-19 Y 0 - 119 120 - 144 >/= 145 >/= 160 20-24 Y 0 - 149 150 - 189 >/= 190 ---- >24 Y 30 mg/dL above LDL Cholesterol goal Performed By: #### 5 902-2 #### ERICA Tam ([id number]) [facility] ([facility]) [id number] [place] [address] 93390 Triglyceride [Mass/Vol] 185 mg/dL High 0-149 [facility] Comment on above: Result Comment: Age Desirable [...] By: #### 5 902-2 #### ERICA Tam ([id number]) [facility] ([facility]) [address] [place] [address] Magnesiumon 12-22-2023 Magnesium [Mass/Vol] 1.97 mg/dL 1.60 - 2.40 mg/dL [facility] Magnesium [Mass/Vol] 1.97 mg/dL Normal 1.60-2.40 [facility] Comment on above: Performed By: #### 5 8077-9 #### ERICA Tam ([id number]) [facility] ([facility]) [address] [place] [address] Magnesium [Mass/Vol]on 12-21 Interpretation and review of laboratory results Normal [facility] Natriuretic peptide B [Mass/ Vol]on 12-22-2023 Interpretation and review of laboratory results Abnormal [facility] Natriuretic peptide B (Bld) [Mass/Vol] 306 pg/mL High 0 - 99 pg/mL [facility] <100 pg/mL - Heart failure unlikely [...] contact their local laboratory for further information. [facility] Natriuretic peptide B (Bld) [Mass/Vol] 306 pg/mL High 0-[address] [facility] Comment on above: Order Comment: <100 pg/mL - Heart failure jotdmnkh100-145 pg/mL - Intermediate probability of acute heart [...] By: #### 5 8077-9 #### ERICA Tam ([id number]) [facility] ([facility]) [address] [place] [address] No Panel Informationon 12-21 [facility] PT and aPTT panel Coag (PPP) on 12-22-2023 aPTT Coag (PPP) [Time] 30 s Un [facility] INR Coag (PPP) [Relative time] 1.2 {INR} High 0.9 - 1.1 [facility] Interpretation and review of laboratory results Abnormal [facility] PT Coag (PPP) [Time] 13.[address] [facility] The APTT is no longe r used for monitoring Unfractionated Heparin Therapy. For monitoring Heparin Therapy, use the Heparin Assay. [facility] aPTT Coag (PPP) [Time] 30 s Normal 27-38 [facility] Comment on above: Order Comment: The A PTT is no longer used for monitoring Unfractionated Heparin Therapy. For monitoring Heparin Therapy, use the Heparin Assay. Performed By: #### 5 8077-9 #### ERICA Tam ([id number]) [facility] ([facility]) [address] [place], [place] [id number] INR Coag (PPP) [Relative time] 1.2 High 0.9-1.[address] [facility] Comment on above: Order Comment: The A PTT is no longer used for monitoring Unfractionated Heparin Therapy. For monitoring Heparin Therapy, use the Heparin Assay. Performed By: #### 5 8077-9 #### ERICA Tam ([id number]) [facility] ([facility]) [address] [place], [place] [id number] PT Coag (PPP) [Time] 13.1 s High 9.8-12.8 [facility] Comment on above: Order Comment: The A PTT is no longer used for monitoring Unfractionated Heparin Therapy. For monitoring Heparin Therapy, use the Heparin Assay. Performed By: #### 5 8077-9 #### ERICA Tam ([id number]) [facility] ([facility]) [address] [place] [address] Tropinin I.cardiac panel Hig h sensitivity methodon 12-22-2023 Interpretation and review of laboratory results Abnormal [facility] Less than 99th percentile of normal [...] performed using a different testing methodology at [facility] than at [facility]. Direct result comparisons should only be made within the same method. [facility] Interpretation and review of laboratory results Abnormal [facility] Less than 99th percentile of normal [...] performed using a different testing methodology at [facility] than at [facility]. Direct result comparisons should only be made within the same method. [facility] Troponin I, High Sensitivity on 12-22-2023 Tropinin I.cardiac panel High sensitivity method 366 ng/L Critically high 0 - 53 ng/L [facility] Comment on above: Previous result veri fijeannette on 12/22/2023 1726 on specimen/case [id number] called with component TRPHS for procedure Troponin I, High Sensitivity with value 492 ng/L. Tropinin I.cardiac panel High sensitivity method 492 ng/L Critically high 0 - 53 ng/L [facility] Troponin I.cardiac panelon 1 02-20-2023 Tropinin I.cardiac panel High sensitivity method 366 ng/L Critically high 0-[address] [facility] Comment on above: Order Comment: If val monroe has not had PT + INR in the last 24 hours. Nursing to release order. Result Comment: Prev ious result verified on 12/22/2023 172 on specimen/case [id number] called with component TRPHS for procedure Troponin I, High Sensitivity with value 492 ng/L. Performed By: #### 5 902-2 #### ERICA Tam ([id number]) [facility] ([facility]) [address] [place] [address]92 Tropinin I.cardiac panel High sensitivity method 492 ng/L Critically high 0-[address] [facility] Comment on above: Order Comment: Less than [...] is performed using a differenttesting methodology at [facility] Direct result comparisons should onlybe made within the same method. Performed By: #### 5 8077-9 #### ERICA Tam ([id number]) [facility] ([facility]) [address] [place] [address] XR CHEST 2 VIEWSon 4 XR CHEST 2 VIEWS Interpreted By: Ryan Amezcua, STUDY: XR CHEST 2 VIEWS; 12/22/2023 1:16 pm INDICATION: Signs/Symptoms:Admission , CHF, NSTEMI. COMPARISON: Exam dated 10/16/2023 ACCESSION NUMBER(S): [id number] ORDERING CLINICIAN: RAFI WALLER FINDINGS: PA and [...] Ryan Banks 12/22/2023 3:40 PM Dictation workstation: [id number] [facility] XR Chest 2 Viewson 4 1. Findings suggesti ve of pulmonary interstitial edema. No focal consolidation, pneumothorax, or pleural effusion. MACRO: None Signed by: Ryan Banks 12/22/2023 3:40 PM Dictation workstation: [id number] Interpreted By: Ryan Amezcua, STUDY: XR CHEST 2 VIEWS; 12/22/2023 1:16 pm INDICATION: Signs/Symptoms:Admission , CHF, NSTEMI. COMPARISON: Exam dated 10/16/2023 ACCESSION NUMBER(S): [id number] ORDERING CLINICIAN: RAFI WALLER FINDINGS: PA and [...] NSTEMI. COMPARISON: Exam dated 10/16/2023 ACCESSION NUMBER(S): [id number] ORDERING CLINICIAN: RAFI WALLER FINDINGS: PA and [...] Ryan Banks 12/22/2023 3:40 PM Dictation workstation: [id number] [facility] Work Phone: Radiology Study observation (narrative) [facility] Work Phone: XR Chest 2 ViewsOrdered By: Ryan Banks on 12-22-2023 [facility] Work Phone: Urology Office/Clinic Noteon 12-21-2023 Urology Office/Clinic Note Urology Office/Clinic Note Chief Complaint New Pt HPI Staff New Pt. Pt was seen at [facility] ER 11/19/23, pt has Seals Dysuria: denies [...] with voice recognition artificial intelligence software, specifically Bio[employer], Datadecision and or MyRefers. Substitutions may have occurred due to the [...] retention (R33.9: Retention of urine, unspecified) F [facility] 11/19/2023 with complaints of difficulty urinating x [...] seals removal Follow-up With When Contact Information Ornickch DALTON, CARTON LINER-C, Marine X, FAM, URL Additional Instructions: Patient [...] History Kidney stone: Mother. Throat cancer: Mother. [facility] Comment on above: Result Comment: Elec [...] for choosing us for your care. Normal [facility] ECG 12-LEADon 11-13-2023 ECG 12-LEAD Ventricular Rate 72 Atrial Rate 72 P-R Interval 188 QRS Duration 96 Q-T Interval 398 QTC Calculation(Bazett) 435 P Pinetta -13 R Pinetta 9 T Pinetta 36 QRS Count 12 Q Onset 216 P Onset 122 P Offset 163 T Offset 415 QTC Fredericia 423 Diagnosis Normal sinus rhythm Normal ECG When compared with ECG of 16-OCT-2023 08:50, No significant change was found Confirmed by Mere Urban ([id number]) on 11/14/2023 6:48:02 PM Normal [facility] CBC panel Auto (Bld)on 10-23 Erythrocyte distribution width (RBC) [Ratio] 15.0 % High 11.5 - 14.5 % [facility] Hematocrit (Bld) [Volume fraction] 36.3 % Low 41.0 - 52.0 % [facility] Hemoglobin (Bld) [Mass/Vol] 11.4 g/dL Low 13.5 - 17.5 g/dL [facility] Interpretation and review of laboratory results Abnormal [facility] MCH (RBC) [Entitic mass] 29.1 pg 26.0 - 34.0 pg [facility] MCHC (RBC) [Mass/Vol] 31.4 g/dL Low 32.0 - 36.0 g/dL [facility] MCV (RBC) [Entitic vol] 93 fL 80 - 100 fL [facility] Nucleated RBC/100 WBC (Bld) [Ratio] 0.0 % [facility] Platelets (Bld) [#/Vol] 313 10*3/uL [facility] RBC (Bld) [#/Vol] 3.92 10*6/uL Low [facility] WBC (Bld) [#/Vol] 8.9 10*3/uL [facility] Erythrocyte distribution width (RBC) [Ratio] 15.0 % High 11.5-14.[address] [facility] Comment on above: Performed By: #### 5 8077-9 #### ERICA Tam ([id number]) [facility] ([facility]) [address] [place] [address]189 Hematocrit (Bld) [Volume fraction] 36.3 % Low 41.0-52.[address] [facility] Comment on above: Performed By: #### 5 8077-9 #### ERICA Tam ([id number]) [facility] ([facility]) [id number] [place] [address] Hemoglobin (Bld) [Mass/Vol] 11.4 g/dL Low 13.5-17.[address] [facility] Comment on above: Performed By: #### 5 8077-9 #### ERICA Tam ([id number]) [facility] ([facility]) [address] [place] [address] MCH (RBC) [Entitic mass] 29.1 pg Normal 26.0-34.[address] [facility] Comment on above: Performed By: #### 5 8077-9 #### ERICA Tam ([id number]) [facility] ([facility]) [address] [place] [address] MCHC (RBC) [Mass/Vol] 31.4 g/dL Low 32.0-36.0 [facility] Comment on above: Performed By: #### 5 8077-9 #### ERICA Tam ([id number]) [facility] ([facility]) [address] [place] [address] MCV (RBC) [Entitic vol] 93 fL Normal 80-100 U [facility] Comment on above: Performed By: #### 5 8077-9 #### ERICA Tam ([id number]) [facility] ([facility]) [address] [place] [address] Nucleated RBC/100 WBC (Bld) [Ratio] 0.0 /100 WBCs Normal 0.0-0.[address] [facility] Comment on above: Performed By: #### 5 8077-9 #### ERICA Tam ([id number]) [facility] ([facility]) [address] [place] [address] Platelets (Bld) [#/Vol] 313 x10*3/uL Normal 150-[address] [facility] Comment on above: Performed By: #### 5 8077-9 #### ERICA Tam ([id number]) [facility] ([facility]) [address] [place] [address] RBC (Bld) [#/Vol] 3.92 x10*6/uL Low 4.50-5.90 [facility] Comment on above: Performed By: #### 5 8077-9 #### ERICA Tam ([id number]) [facility] ([facility]) [address] [place] [address] WBC (Bld) [#/Vol] 8.9 x10*3/uL Normal 4.4-11.3 [facility] Comment on above: Performed By: #### 5 8077-9 #### ERICA Tam ([id number]) [facility] ([facility]) [address] [place] [address] Glucose Test strip manual (B ld) [Mass/Vol]on 10-24-2023 Glucose [Mass/Vol] 203 mg/dL High 74 - 99 mg/dL [facility] Interpretation and review of laboratory results Abnormal [facility] Glucose [Mass/Vol] 203 mg/dL High 74-99 [facility] Comment on above: Performed By: #### 5 8077-9 #### ERICA Tam ([id number]) [facility] ([facility]) [address] [place] [address] Renal function 2000 panelon 10-24-2023 Albumin BCP dye [Mass/Vol] 3.2 g/dL Low 3.4 - 5.0 g/dL [facility] Anion gap [Moles/Vol] 12 mmol/L 10 - 2 0 mmol/L [facility] Calcium [Mass/Vol] 8.4 mg/dL Low 8.6 - 10. 6 mg/dL [facility] Chloride [Moles/Vol] 105 mmol/L 98 - 10 7 mmol/L [facility] CO2 [Moles/Vol] 24 mmol/L 21 - 32 mmol/L [facility] Creatinine [Mass/Vol] 1.72 mg/dL High 0.50 - 1.30 mg/dL [facility] GFR/1.73 sq M.predicted among non-blacks MDRD (S/P/Bld) [Vol rate/Area] 42 mL/min/{1.73_m2} Low - PINF [facility] Comment on above: Calculations of mercedez mated GFR are performed using the 2020 CKD-EPI Study Refit equation without the race variable for the IDMS-Traceable creatinine methods. https://jasn.asnjournals.org/content//ASN.2020 516935 Glucose [Mass/Vol] 184 mg/dL High 74 - 99 mg/dL [facility] Interpretation and review of laboratory results Abnormal [facility] Phosphate [Mass/Vol] 3.9 mg/dL 2.5 - 4 .9 mg/dL [facility] Comment on above: The performance cecilia acteristics of phosphorus testing in heparinized plasma have been validated by the individual laboratory site where testing is performed. Testing on heparinized plasma is not approved by the FDA; however, such approval is not necessary. Potassium [Moles/Vol] 4.1 mmol/L 3.5 - 5.3 mmol/L [facility] Sodium [Moles/Vol] 137 mmol/L 136 - 145 mmol/L [facility] Urea nitrogen [Mass/Vol] 38 mg/dL High 6 - 23 mg/dL [facility] Albumin BCP dye [Mass/Vol] 3.2 g/dL Low 3.4-5.[address] [facility] Comment on above: Performed By: #### 5 8077-9 #### ERICA Tam ([id number]) [facility] ([facility]) [address] [place] [address] Anion gap [Moles/Vol] 12 mmol/L Normal 10-20 [facility] Comment on above: Performed By: #### 5 8077-9 #### ERICA MCDONALD L ([id number]) [facility] ([facility]) [address] [place] [address] Calcium [Mass/Vol] 8.4 mg/dL Low 8.6-10.6 [facility] Comment on above: Performed By: #### 5 8077-9 #### ERICA RESTREPOMOMARLENY L ([id number]) [facility] ([facility]) [address] [place] [address] Chloride [Moles/Vol] 105 mmol/L Normal 98-107 [facility] Comment on above: Performed By: #### 5 8077-9 #### ERICA MCDONALD L ([id number]) [facility] ([facility]) [address] [place] [address] 12828 CO2 [Moles/Vol] 24 mmol/L Normal 21-[address] [facility] Comment on above: Performed By: #### 5 8077-9 #### ERICA MCDONALD L ([id number]) [facility] ([facility]) [address] [place] [address] Creatinine [Mass/Vol] 1.72 mg/dL High 0.50-1.30 [facility] Comment on above: Performed By: #### 5 8077-9 #### ERICA Tam ([id number]) [facility] ([facility]) [address] [place] [address] Glomerular filtration rate/1.73 sq M.predicted 42 mL/min/1.73m*2 Low >[address] [facility] Comment on above: Result Comment: Calc ulations of estimated GFR are performed using the 2020 CKD-EPI Study Refit equation without the race variable for the IDMS-Traceable creatinine methods. https://jasn.asnjournals.org/content/early//ASN.2020 628126 Performed By: #### 5 8077-9 #### ERICA Tam ([id number]) [facility] ([facility]) [id number] [place] [address] Glucose [Mass/Vol] 184 mg/dL High 74-99 [facility] Comment on above: Performed By: #### 5 8077-9 #### ERICA Tam ([id number]) [facility] ([facility]) [id number] [place] [address] Phosphate [Mass/Vol] 3.9 mg/dL Normal 2.5-4.9 [facility] Comment on above: Result Comment: The performance characteristics of phosphorus testing in heparinized plasma have been validated by the individual laboratory site where testing is performed. Testing on heparinized plasma is not approved by the FDA; however, such approval is not necessary. Performed By: #### 5 8077-9 #### ERICA Tam ([id number]) [facility] ([facility]) [address] [place] [address] Potassium [Moles/Vol] 4.1 mmol/L Normal 3.5-5.3 [facility] Comment on above: Performed By: #### 5 8077-9 #### ERICA Tam ([id number]) [facility] ([facility]) [address] [place] [address]30 Sodium [Moles/Vol] 137 mmol/L Normal 136-145 [facility] Comment on above: Performed By: #### 5 8077-9 #### ERICA Tam ([id number]) [facility] ([facility]) [address] [place] [address]492 Urea nitrogen [Mass/Vol] 38 mg/dL High 6-[address] [facility] Comment on above: Performed By: #### 5 8077-9 #### ERICA Tam ([id number]) [facility] ([facility]) [address] [place] [address] 17127 Activated clotting timeon ACT Coag (Bld) [address] Comment on above: Result Comment: Targ et ACT range will vary based on the patient population, clinical status, and surgical intervention occurring. Performed By: #### 5 8077-9 #### ERICA Tam ([id number]) [facility] ([facility]) [address] [place] [address] 23559 ACT Coag (Bld) [address] Comment on above: Result Comment: Targ et ACT range will vary based on the patient population, clinical status, and surgical intervention occurring. Performed By: #### 5 8077-9 #### ERICA Tam ([id number]) [facility] ([facility]) [address] [place] [address] 89954 ACT Coag (Bld) [address] Comment on above: Result Comment: Targ et ACT range will vary based on the patient population, clinical status, and surgical intervention occurring. Performed By: #### 5 8077-9 #### ERICA MCDONALD L ([id number]) [facility] ([facility]) [address] [place] [address] 55557 CARDIAC CATHETERIZATION PROC EDUREon 10-23-2023 CARDIAC CATHETERIZATION PROCEDURE [facility], Bladder Trimmer, [address] [place] [address] Cardiovascular Catheterization Report Patient Name: ITALIA ALLEN Performing Physician: [id number] Saihl Wiley MD Study Date: 10/23/2023 Verifying Physician: [id number] Wiley MD MRN/PID: [id number] Asian Art Curator/Co-Scrub: Ordering Provider: [id number] INDERJIT MICHELLE Date of /Age: 6 1955 / 68 years Asian Art Curator: Gender: M Fellow: [id number] Inderjit Michelle DM Admit Date: Fellow: Abdoulaye [...] dysfunction. Heart failure. Recent myocardial infarction. Recent AR. Medical History: Stress test performed: No. CTA [...] worsening dyspnea. He was subsequently transferred to [facility] for further workup. 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 Transthoracic echocardiogram demonstrated an LVEF of 45 to 50%. He was then transferred to [facility] for CABG evaluation. Sadly, his about [...] was calcified. Right Coronary Artery Distribution: Known [employer]. Coronary Interventions: After infiltration with 2% Lidocaine, the right was cannulated with a modified Seldinger technique with ultrasound guidance. Subsequently a 6 Omani sheath was placed antegrade in the right. A 6 Omani EBU 3.5 guide catheter was advanced over [...] rodrigo. Post-stent intravascular ultrasound assessment with the [place] Eye catheter was performed. IVUS demonstrated an [...] content not included)... Normal [facility] CBC panel Auto (Bld)on 10-22 Erythrocyte distribution width (RBC) [Ratio] 14.6 % High 11.5 - 14.5 % [facility] Hematocrit (Bld) [Volume fraction] 37.2 % Low 41.0 - 52.0 % [facility] Hemoglobin (Bld) [Mass/Vol] 11.2 g/dL Low 13.5 - 17.5 g/dL [facility] Interpretation and review of laboratory results Abnormal [facility] MCH (RBC) [Entitic mass] 27.9 pg 26.0 - 34.0 pg [facility] MCHC (RBC) [Mass/Vol] 30.1 g/dL Low 32.0 - 36.0 g/dL [facility] MCV (RBC) [Entitic vol] 93 fL 80 - 100 fL [facility] Nucleated RBC/100 WBC (Bld) [Ratio] 0.0 % [facility] Platelets (Bld) [#/Vol] 334 10*3/uL [facility] RBC (Bld) [#/Vol] 4.01 10*6/uL [facility] WBC (Bld) [#/Vol] 9.6 10*3/uL [facility] Erythrocyte distribution width (RBC) [Ratio] 14.6 % High 11.5-14.[address] [facility] Comment on above: Performed By: #### 7 77-3 #### ERICA Tam ([id number]) [facility] ([facility]) [id number] [place] [address] 42835 Hematocrit (Bld) [Volume fraction] 37.2 % Low 41.0-52.[address] [facility] Comment on above: Performed By: #### 7 77-3 #### ERICA Tam ([id number]) [facility] ([facility]) [id number] [place] [address]20 Hemoglobin (Bld) [Mass/Vol] 11.2 g/dL Low 13.5-17.[address] [facility] Comment on above: Performed By: #### 7 77-3 #### ERICA Tam ([id number]) [facility] ([facility]) [address] [place] [address] MCH (RBC) [Entitic mass] 27.9 pg Normal 26.0-34.[address] [facility] Comment on above: Performed By: #### 7 77-3 #### ERICA Tam ([id number]) [facility] ([facility]) [id number] [place] [address] 88737 MCHC (RBC) [Mass/Vol] 30.1 g/dL Low 32.0-36.0 [facility] Comment on above: Performed By: #### 7 77-3 #### ERICA Tam ([id number]) [facility] ([facility]) [address] [place] [address] 27385 MCV (RBC) [Entitic vol] 93 fL Normal 80-100 U [facility] Comment on above: Performed By: #### 7 77-3 #### ERICA Tam ([id number]) [facility] ([facility]) [address] [place] [address] 81758 Nucleated RBC/100 WBC (Bld) [Ratio] 0.0 /100 WBCs Normal 0.0-0.[address] [facility] Comment on above: Performed By: #### 7 77-3 #### ERICA Tam ([id number]) [facility] ([facility]) [id number] [place] [address] 16363 Platelets (Bld) [#/Vol] 334 x10*3/uL Normal 150-[address] [facility] Comment on above: Performed By: #### 7 77-3 #### ERICA Tam ([id number]) [facility] ([facility]) [address] [place] [address] 58408 RBC (Bld) [#/Vol] 4.01 x10*6/uL Low 4.50-5.90 [facility] Comment on above: Performed By: #### 7 77-3 #### ERICA Tam ([id number]) [facility] ([facility]) [address] [place] [address] 42977 WBC (Bld) [#/Vol] 9.6 x10*3/uL Normal 4.4-11.3 [facility] Comment on above: Performed By: #### 7 77-3 #### ERICA Tam ([id number]) [facility] ([facility]) [address] [place] [address] 69868 Glucose Test strip manual (B ld) [Mass/Vol]on 10-23-2023 Glucose [Mass/Vol] 238 mg/dL High 74 - 99 mg/dL [facility] Interpretation and review of laboratory results Abnormal [facility] Glucose [Mass/Vol] 238 mg/dL High 74-99 [facility] Comment on above: Performed By: #### 5 8077-9 #### ERICA Tam ([id number]) [facility] ([facility]) [address] [place] [address] 35256 Glucose [Mass/Vol] 96 mg/dL 74 - 99 mg/dL [facility] Interpretation and review of laboratory results Normal [facility] Glucose [Mass/Vol] 96 mg/dL Normal 74-99 [facility] Comment on above: Performed By: #### 7 77-3 #### ERICA Tam ([id number]) [facility] ([facility]) [address] [place] [address] 87769 Glucose [Mass/Vol] 101 mg/dL High 74 - 99 mg/dL [facility] Interpretation and review of laboratory results Abnormal [facility] Glucose [Mass/Vol] 101 mg/dL High 74-99 [facility] Comment on above: Performed By: #### 7 77-3 #### ERICA aTm ([id number]) [facility] ([facility]) [address] [place] [address] 29993 Glucose [Mass/Vol] 96 mg/dL 74 - 99 mg/dL [facility] Interpretation and review of laboratory results Normal [facility] Glucose [Mass/Vol] 96 mg/dL Normal 74-99 [facility] Comment on above: Performed By: #### 7 77-3 #### ERICA Tam ([id number]) [facility] ([facility]) [address] [place] [address] Renal function 2000 panelon 10-23-2023 Albumin BCP dye [Mass/Vol] 3.2 g/dL Low 3.4 - 5.0 g/dL [facility] Anion gap [Moles/Vol] 13 mmol/L 10 - 2 0 mmol/L [facility] Calcium [Mass/Vol] 8.5 mg/dL Low 8.6 - 10. 6 mg/dL [facility] Chloride [Moles/Vol] 103 mmol/L 98 - 10 7 mmol/L [facility] CO2 [Moles/Vol] 25 mmol/L 21 - 32 mmol/L [facility] Creatinine [Mass/Vol] 1.77 mg/dL High 0.50 - 1.30 mg/dL [facility] GFR/1.73 sq M.predicted among non-blacks MDRD (S/P/Bld) [Vol rate/Area] 41 mL/min/{1.73_m2} Low - PINF [facility] Comment on above: Calculations of mercedez mated GFR are performed using the 2020 CKD-EPI Study Refit equation without the race variable for the IDMS-Traceable creatinine methods. https://jasn.asnjournals.org/content//ASN.2020 679340 Glucose [Mass/Vol] 99 mg/dL 74 - 99 mg/dL [facility] Interpretation and review of laboratory results Abnormal [facility] Phosphate [Mass/Vol] 4.9 mg/dL 2.5 - 4 .9 mg/dL [facility] Comment on above: MODERATE HEMOLYSIS D [...] [Moles/Vol] 5.2 mmol/L 3.5 - 5.3 mmol/L [facility] Comment on above: MODERATE HEMOLYSIS D ETECTED. The result may be falsely elevated due to hemolysis or other interferents. Clinical correlation is recommended. Repeat testing may be considered. Sodium [Moles/Vol] 136 mmol/L 136 - 145 mmol/L [facility] Urea nitrogen [Mass/Vol] 39 mg/dL High 6 - 23 mg/dL [facility] Albumin BCP dye [Mass/Vol] 3.2 g/dL Low 3.4-5.[address] [facility] Comment on above: Performed By: #### 7 77-3 #### ERICA MCDONALD L ([id number]) [facility] ([facility]) [id number] [place] [address] 38007 Anion gap [Moles/Vol] 13 mmol/L Normal 10-20 [facility] Comment on above: Performed By: #### 7 77-3 #### ERICA HIGGINSER L ([id number]) [facility] ([facility]) [address] [place] [address] Calcium [Mass/Vol] 8.5 mg/dL Low 8.6-10.6 [facility] Comment on above: Performed By: #### 7 77-3 #### ERICA RESTREPOMOTZER L ([id number]) [facility] ([facility]) [address] [place] [address] Chloride [Moles/Vol] 103 mmol/L Normal 98-107 [facility] Comment on above: Performed By: #### 7 77-3 #### ERICA RESTREPOMOTZER L ([id number]) [facility] ([facility]) [address] [place] [address] CO2 [Moles/Vol] 25 mmol/L Normal 21-[address] [facility] Comment on above: Performed By: #### 7 77-3 #### ERICA RESTREPOMOTZER L ([id number]) [facility] ([facility]) [address] [place] [address] Creatinine [Mass/Vol] 1.77 mg/dL High 0.50-1.30 [facility] Comment on above: Performed By: #### 7 77-3 #### ERICA Tam ([id number]) [facility] ([facility]) [address] [place] [address] 00761 Glomerular filtration rate/1.73 sq M.predicted 41 mL/min/1.73m*2 Low >[address] [facility] Comment on above: Result Comment: Calc ulations of estimated GFR are performed using the 2020 CKD-EPI Study Refit equation without the race variable for the IDMS-Traceable creatinine methods. https://jasn.asnjournals.org/content/early/ASN.2020 176277 Performed By: #### 7 77-3 #### ERICA Tam ([id number]) [facility] ([facility]) [address] [place] [address] 11323 Glucose [Mass/Vol] 99 mg/dL Normal 74-99 [facility] Comment on above: Performed By: #### 7 77-3 #### ERICA Tam ([id number]) [facility] ([facility]) [address] [place] [address] 05621 Phosphate [Mass/Vol] 4.9 mg/dL Normal 2.5-4.9 [facility] Comment on above: Result Comment: MODE [...] By: #### 7 77-3 #### ERICA Tam ([id number]) [facility] ([facility]) [address] [place] [address] 57758 Potassium [Moles/Vol] 5.2 mmol/L Normal 3.5-5.3 [facility] Comment on above: Result Comment: MODE RATE HEMOLYSIS DETECTED. The result may be falsely elevated due to hemolysis or other interferents. Clinical correlation is recommended. Repeat testing may be considered. Performed By: #### 7 77-3 #### ERICA Tam ([id number]) [facility] ([facility]) [address] [place] [address] 69865 Sodium [Moles/Vol] 136 mmol/L Normal 136-145 [facility] Comment on above: Performed By: #### 7 77-3 #### ERICA Tam ([id number]) [facility] ([facility]) [address] [place] [address] 49934 Urea nitrogen [Mass/Vol] 39 mg/dL High 6-[address] [facility] Comment on above: Performed By: #### 7 77-3 #### ERICA Tam ([id number]) [facility] ([facility]) [address] [place] [address] 38976 Glucose Test strip manual (B ld) [Mass/Vol]on 10-22-2023 Glucose [Mass/Vol] 246 mg/dL High 74 - 99 mg/dL [facility] Interpretation and review of laboratory results Abnormal [facility] Glucose [Mass/Vol] 246 mg/dL High 74-99 [facility] Comment on above: Performed By: #### 7 77-3 #### ERICA Tam ([id number]) [facility] ([facility]) [address] [place] [address] 20012 Glucose [Mass/Vol] 186 mg/dL High 74 - 99 mg/dL [facility] Interpretation and review of laboratory results Abnormal [facility] Glucose [Mass/Vol] 186 mg/dL High 74-99 [facility] Comment on above: Performed By: #### 7 77-3 #### ERICA Tam ([id number]) [facility] ([facility]) [address] [place] [address] 90868 Glucose [Mass/Vol] 213 mg/dL High 74 - 99 mg/dL [facility] Interpretation and review of laboratory results Abnormal [facility] Glucose [Mass/Vol] 213 mg/dL High 74-99 [facility] Comment on above: Performed By: #### 7 77-3 #### ERICA Tam ([id number]) [facility] ([facility]) [id number] [place] [address] 06424 Glucose [Mass/Vol] 143 mg/dL High 74 - 99 mg/dL [facility] Interpretation and review of laboratory results Abnormal [facility] Glucose [Mass/Vol] 143 mg/dL High 74-99 [facility] Comment on above: Performed By: #### 7 77-3 #### ERICA Tam ([id number]) [facility] ([facility]) [address] [place] [address] Renal function 2000 panelon 10-22-2023 Albumin BCP dye [Mass/Vol] 3.3 g/dL Low 3.4 - 5.0 g/dL [facility] Anion gap [Moles/Vol] 14 mmol/L 10 - 2 0 mmol/L [facility] Calcium [Mass/Vol] 8.8 mg/dL 8.6 - 10. 6 mg/dL [facility] Chloride [Moles/Vol] 101 mmol/L 98 - 10 7 mmol/L [facility] CO2 [Moles/Vol] 23 mmol/L 21 - 32 mmol/L [facility] Creatinine [Mass/Vol] 1.75 mg/dL High 0.50 - 1.30 mg/dL [facility] GFR/1.73 sq M.predicted among non-blacks MDRD (S/P/Bld) [Vol rate/Area] 42 mL/min/{1.73_m2} Low - PINF [facility] Comment on above: Calculations of mer[place]ez mated GFR are performed using the 2020 CKD-EPI Study Refit equation without the race variable for the IDMS-Traceable creatinine methods. https://jasn.asnjournals.org/content/early/ASN.2020 630519 Glucose [Mass/Vol] 214 mg/dL High 74 - 99 mg/dL [facility] Interpretation and review of laboratory results Abnormal [facility] Phosphate [Mass/Vol] 4.3 mg/dL 2.5 - 4 .9 mg/dL [facility] Comment on above: The performance cecilia acteristics of phosphorus testing in heparinized plasma have been validated by the individual laboratory site where testing is performed. Testing on heparinized plasma is not approved by the FDA; however, such approval is not necessary. Potassium [Moles/Vol] 4.1 mmol/L 3.5 - 5.3 mmol/L [facility] Sodium [Moles/Vol] 134 mmol/L Low 136 - 145 mmol/L [facility] Urea nitrogen [Mass/Vol] 38 mg/dL High 6 - 23 mg/dL [facility] Albumin BCP dye [Mass/Vol] 3.3 g/dL Low 3.4-5.[address] [facility] Comment on above: Performed By: #### 7 77-3 #### ERICA Tam ([id number]) [facility] ([facility]) [id number] [place] [address] 88566 Anion gap [Moles/Vol] 14 mmol/L Normal 10-20 [facility] Comment on above: Performed By: #### 7 77-3 #### ERICA Tam ([id number]) [facility] ([facility]) [address] [place] [address] 12008 Calcium [Mass/Vol] 8.8 mg/dL Normal 8.6-10.6 [facility] Comment on above: Performed By: #### 7 77-3 #### ERICA MCDONALD L ([id number]) [facility] ([facility]) [id number] [place] [address] 99186 Chloride [Moles/Vol] 101 mmol/L Normal 98-107 [facility] Comment on above: Performed By: #### 7 77-3 #### ERICA Tam ([id number]) [facility] ([facility]) [id number] [place] [address] 08160 CO2 [Moles/Vol] 23 mmol/L Normal 21-[address] [facility] Comment on above: Performed By: #### 7 77-3 #### ERICA Tam ([id number]) [facility] ([facility]) [address] [place] [address] Creatinine [Mass/Vol] 1.75 mg/dL High 0.50-1.30 [facility] Comment on above: Performed By: #### 7 77-3 #### ERICA Tam ([id number]) [facility] ([facility]) [address] [place] [address] Glomerular filtration rate/1.73 sq M.predicted 42 mL/min/1.73m*2 Low >[address] [facility] Comment on above: Result Comment: Calc ulations of estimated GFR are performed using the 2020 CKD-EPI Study Refit equation without the race variable for the IDMS-Traceable creatinine methods. https://jasn.asnjournals.org/content/early//ASN.2020 041849 Performed By: #### 7 77-3 #### ERICA Tam ([id number]) [facility] ([facility]) [address] [place] [address] Glucose [Mass/Vol] 214 mg/dL High 74-99 [facility] Comment on above: Performed By: #### 7 77-3 #### ERICA Tam ([id number]) [facility] ([facility]) [address] [place] [address] Phosphate [Mass/Vol] 4.3 mg/dL Normal 2.5-4.9 [facility] Comment on above: Result Comment: The performance characteristics of phosphorus testing in heparinized plasma have been validated by the individual laboratory site where testing is performed. Testing on heparinized plasma is not approved by the FDA; however, such approval is not necessary. Performed By: #### 7 77-3 #### ERICA Tam ([id number]) [facility] ([facility]) [address] [place] [address] Potassium [Moles/Vol] 4.1 mmol/L Normal 3.5-5.3 [facility] Comment on above: Performed By: #### 7 77-3 #### ERICA Tam ([id number]) [facility] ([facility]) [address] [place] [address] 80759 Sodium [Moles/Vol] 134 mmol/L Low 136-145 [facility] Comment on above: Performed By: #### 7 77-3 #### ERICA Tam ([id number]) [facility] ([facility]) [address] [place] [address] 99935 Urea nitrogen [Mass/Vol] 38 mg/dL High 6-[address] [facility] Comment on above: Performed By: #### 7 77-3 #### ERICA Tam ([id number]) [facility] ([facility]) [address] [place] [address] 38403 Glucose Test strip manual (B ld) [Mass/Vol]on 10-21-2023 Glucose [Mass/Vol] 189 mg/dL High 74 - 99 mg/dL [facility] Interpretation and review of laboratory results Abnormal [facility] Glucose [Mass/Vol] 189 mg/dL High 74-99 [facility] Comment on above: Performed By: #### 3 274-8 #### ERICA Tam ([id number]) [facility] ([facility]) [address] [place] [address] 00418 Glucose [Mass/Vol] 258 mg/dL High 74 - 99 mg/dL [facility] Interpretation and review of laboratory results Abnormal [facility] Glucose [Mass/Vol] 258 mg/dL High 74-99 [facility] Comment on above: Performed By: #### 3 274-8 #### ERICA Tam ([id number]) [facility] ([facility]) [address] [place] [address] 40690 Glucose [Mass/Vol] 392 mg/dL High 74 - 99 mg/dL [facility] Interpretation and review of laboratory results Abnormal [facility] Glucose [Mass/Vol] 392 mg/dL High 74-99 [facility] Comment on above: Performed By: #### 3 274-8 #### ERICA Tam ([id number]) [facility] ([facility]) [address] [place] [address] Glucose [Mass/Vol] 254 mg/dL High 74 - 99 mg/dL [facility] Interpretation and review of laboratory results Abnormal [facility] Glucose [Mass/Vol] 254 mg/dL High 74-99 [facility] Comment on above: Performed By: #### 3 274-8 #### ERICA Tam ([id number]) [facility] ([facility]) [id number] [place] [address] 39363 Glucose [Mass/Vol] 296 mg/dL High 74 - 99 mg/dL [facility] Interpretation and review of laboratory results Abnormal [facility] Glucose [Mass/Vol] 296 mg/dL High 74-99 [facility] Comment on above: Performed By: #### 3 274-8 #### ERICA Tam ([id number]) [facility] ([facility]) [id number] [place] [address] 08819 CBC panel Auto (Bld)on 10-19 Erythrocyte distribution width (RBC) [Ratio] 14.6 % High 11.5 - 14.5 % [facility] Hematocrit (Bld) [Volume fraction] 34.7 % Low 41.0 - 52.0 % [facility] Hemoglobin (Bld) [Mass/Vol] 11.2 g/dL Low 13.5 - 17.5 g/dL [facility] Interpretation and review of laboratory results Abnormal [facility] MCH (RBC) [Entitic mass] 28.9 pg 26.0 - 34.0 pg [facility] MCHC (RBC) [Mass/Vol] 32.3 g/dL 32.0 - 36.0 g/dL [facility] MCV (RBC) [Entitic vol] 89 fL 80 - 100 fL [facility] Nucleated RBC/100 WBC (Bld) [Ratio] 0.0 % [facility] Platelets (Bld) [#/Vol] 293 10*3/uL [facility] RBC (Bld) [#/Vol] 3.88 10*6/uL Low [facility] WBC (Bld) [#/Vol] 8.6 10*3/uL [facility] Erythrocyte distribution width (RBC) [Ratio] 14.6 % High 11.5-14.[address] [facility] Comment on above: Performed By: #### 3 274-8 #### ERICA Tam ([id number]) [facility] ([facility]) [id number] [place] [address] 39477 Hematocrit (Bld) [Volume fraction] 34.7 % Low 41.0-52.[address] [facility] Comment on above: Performed By: #### 3 274-8 #### ERICA Tam ([id number]) [facility] ([facility]) [address] [place] [address] 51112 Hemoglobin (Bld) [Mass/Vol] 11.2 g/dL Low 13.5-17.[address] [facility] Comment on above: Performed By: #### 3 274-8 #### ERICA Tam ([id number]) [facility] ([facility]) [id number] [place] [address] 44649 MCH (RBC) [Entitic mass] 28.9 pg Normal 26.0-34.[address] [facility] Comment on above: Performed By: #### 3 274-8 #### ERICA Tam ([id number]) [facility] ([facility]) [id number] [place] [address] 70141 MCHC (RBC) [Mass/Vol] 32.3 g/dL Normal 32.0-36.0 [facility] Comment on above: Performed By: #### 3 274-8 #### ERICA Tam ([id number]) [facility] ([facility]) [address] [place] [address] 88066 MCV (RBC) [Entitic vol] 89 fL Normal 80-100 [facility] Comment on above: Performed By: #### 3 274-8 #### ERICA Tam ([id number]) [facility] ([facility]) [id number] [place] [address] 76414 Nucleated RBC/100 WBC (Bld) [Ratio] 0.0 /100 WBCs Normal 0.0-0.[address] [facility] Comment on above: Performed By: #### 3 274-8 #### ERICA Tam ([id number]) [facility] ([facility]) [address] [place] [address] 93373 Platelets (Bld) [#/Vol] 293 x10*3/uL Normal 150-[address] [facility] Comment on above: Performed By: #### 3 274-8 #### ERICA Tam ([id number]) [facility] ([facility]) [address] [place] [address] 41232 RBC (Bld) [#/Vol] 3.88 x10*6/uL Low 4.50-5.90 [facility] Comment on above: Performed By: #### 3 274-8 #### ERICA Tam ([id number]) [facility] ([facility]) [address] [place] [address] 80299 WBC (Bld) [#/Vol] 8.6 x10*3/uL Normal 4.4-11.3 [facility] Comment on above: Performed By: #### 3 274-8 #### ERICA Tam ([id number]) [facility] ([facility]) [address] [place] [address] 47952 Glucose Test strip manual (B ld) [Mass/Vol]on 10-20-2023 Glucose [Mass/Vol] 298 mg/dL High 74 - 99 mg/dL [facility] Interpretation and review of laboratory results Abnormal [facility] Glucose [Mass/Vol] 298 mg/dL High 74-99 [facility] Comment on above: Performed By: #### 3 274-8 #### ERICA Tam ([id number]) [facility] ([facility]) [address] [place] [address] 88930 Glucose [Mass/Vol] 298 mg/dL High 74 - 99 mg/dL [facility] Interpretation and review of laboratory results Abnormal [facility] Glucose [Mass/Vol] 298 mg/dL High 74-99 [facility] Comment on above: Performed By: #### 3 274-8 #### ERICA Tam ([id number]) [facility] ([facility]) [address] [place] [address] 33595 Glucose [Mass/Vol] 294 mg/dL High 74 - 99 mg/dL [facility] Interpretation and review of laboratory results Abnormal [facility] Glucose [Mass/Vol] 294 mg/dL High 74-99 [facility] Comment on above: Performed By: #### T HYDS #### ERICA Tam ([id number]) [facility] ([facility]) [address] [place] [address] 34174 Glucose [Mass/Vol] 173 mg/dL High 74 - 99 mg/dL [facility] Interpretation and review of laboratory results Abnormal [facility] Glucose [Mass/Vol] 173 mg/dL High 74-99 [facility] Comment on above: Performed By: #### T HYDS #### ERICA Tam ([id number]) [facility] ([facility]) [address] [place] [address] 40300 Glucose [Mass/Vol] 146 mg/dL High 74 - 99 mg/dL [facility] Interpretation and review of laboratory results Abnormal [facility] Glucose [Mass/Vol] 146 mg/dL High 74-99 [facility] Comment on above: Performed By: #### T HYDS #### ERICA Tam ([id number]) [facility] ([facility]) [address] [place] [address] 76129 Magnesiumon 10-20-2023 Magnesium [Mass/Vol] 1.74 mg/dL 1.60 - 2.40 mg/dL [facility] Magnesium [Mass/Vol] 1.74 mg/dL Normal 1.60-2.40 [facility] Comment on above: Performed By: #### 3 274-8 #### ERICA RESTREPOAVELINA Tam ([id number]) [facility] ([facility]) [id number] [place] [address] 71925 Magnesium [Mass/Vol]on 10-19 Interpretation and review of laboratory results Normal [facility] No Panel Informationon 10-19 [facility] Renal function 2000 panelon 10-20-2023 Albumin BCP dye [Mass/Vol] 3.3 g/dL Low 3.4 - 5.0 g/dL [facility] Anion gap [Moles/Vol] 11 mmol/L 10 - 2 0 mmol/L [facility] Calcium [Mass/Vol] 8.5 mg/dL Low 8.6 - 10. 6 mg/dL [facility] Chloride [Moles/Vol] 102 mmol/L 98 - 10 7 mmol/L [facility] CO2 [Moles/Vol] 25 mmol/L 21 - 32 mmol/L [facility] Creatinine [Mass/Vol] 1.89 mg/dL High 0.50 - 1.30 mg/dL [facility] GFR/1.73 sq M.predicted among non-blacks MDRD (S/P/Bld) [Vol rate/Area] 38 mL/min/{1.73_m2} Low - PINF [facility] Comment on above: Calculations of mer[place] mated GFR are performed using the 2020 CKD-EPI Study Refit equation without the race variable for the IDMS-Traceable creatinine methods. https://jasn.asnjournals.org/content//ASN.2020 626226 Glucose [Mass/Vol] 323 mg/dL High 74 - 99 mg/dL [facility] Interpretation and review of laboratory results Abnormal [facility] Phosphate [Mass/Vol] 3.0 mg/dL 2.5 - 4 .9 mg/dL [facility] Comment on above: The performance cecilia acteristics of phosphorus testing in heparinized plasma have been validated by the individual laboratory site where testing is performed. Testing on heparinized plasma is not approved by the FDA; however, such approval is not necessary. Potassium [Moles/Vol] 3.9 mmol/L 3.5 - 5.3 mmol/L [facility] Sodium [Moles/Vol] 134 mmol/L Low 136 - 145 mmol/L [facility] Urea nitrogen [Mass/Vol] 31 mg/dL High 6 - 23 mg/dL [facility] Albumin BCP dye [Mass/Vol] 3.3 g/dL Low 3.4-5.[address] [facility] Comment on above: Performed By: #### 3 274-8 #### ERICA Tam ([id number]) [facility] ([facility]) [id number] [place] [address] 09450 Anion gap [Moles/Vol] 11 mmol/L Normal 10-20 [facility] Comment on above: Performed By: #### 3 274-8 #### ERICA Tam ([id number]) [facility] ([facility]) [address] [place] [address] 96775 Calcium [Mass/Vol] 8.5 mg/dL Low 8.6-10.6 [facility] Comment on above: Performed By: #### 3 274-8 #### ERICA Tam ([id number]) [facility] ([facility]) [id number] [place] [address] 36978 Chloride [Moles/Vol] 102 mmol/L Normal 98-107 [facility] Comment on above: Performed By: #### 3 274-8 #### ERICA Tam ([id number]) [facility] ([facility]) [id number] [place] [address] 55590 CO2 [Moles/Vol] 25 mmol/L Normal 21-[address] [facility] Comment on above: Performed By: #### 3 274-8 #### ERCIA Tam ([id number]) [facility] ([facility]) [address] [place] [address] 57881 Creatinine [Mass/Vol] 1.89 mg/dL High 0.50-1.30 [facility] Comment on above: Performed By: #### 3 274-8 #### ERICA Tam ([id number]) [facility] ([facility]) [id number] [place] [address] 35691 Glomerular filtration rate/1.73 sq M.predicted 38 mL/min/1.73m*2 Low >[address] [facility] Comment on above: Result Comment: Calc ulations of estimated GFR are performed using the 2020 CKD-EPI Study Refit equation without the race variable for the IDMS-Traceable creatinine methods. https://jasn.asnjournals.org/content//ASN.2020 468050 Performed By: #### 3 274-8 #### ERICA Tam ([id number]) [facility] ([facility]) [address] [place] [address] Glucose [Mass/Vol] 323 mg/dL High 74-99 [facility] Comment on above: Performed By: #### 3 274-8 #### ERICA Tam ([id number]) [facility] ([facility]) [address] [place] [address] 64487 Phosphate [Mass/Vol] 3.0 mg/dL Normal 2.5-4.9 [facility] Comment on above: Result Comment: The performance characteristics of phosphorus testing in heparinized plasma have been validated by the individual laboratory site where testing is performed. Testing on heparinized plasma is not approved by the FDA; however, such approval is not necessary. Performed By: #### 3 274-8 #### ERICA Tam ([id number]) [facility] ([facility]) [address] [place] [address] Potassium [Moles/Vol] 3.9 mmol/L Normal 3.5-5.3 [facility] Comment on above: Performed By: #### 3 274-8 #### ERICA Tam ([id number]) [facility] ([facility]) [address] [place] [address] Sodium [Moles/Vol] 134 mmol/L Low 136-145 [facility] Comment on above: Performed By: #### 3 274-8 #### ERICA Tam ([id number]) [facility] ([facility]) [id number] [place] [address] 99643 Urea nitrogen [Mass/Vol] 31 mg/dL High 6-[address] [facility] Comment on above: Performed By: #### 3 274-8 #### ERICA Tam ([id number]) [facility] ([facility]) [address] [place] [address] 76027 Glucose Test strip manual (B ld) [Mass/Vol]on 10-19-2023 Glucose [Mass/Vol] 355 mg/dL High 74 - 99 mg/dL [facility] Interpretation and review of laboratory results Abnormal [facility] Glucose [Mass/Vol] 355 mg/dL High 74-99 [facility] Comment on above: Performed By: #### T HYDS #### ERICA Tam ([id number]) [facility] ([facility]) [address] [place] [address] 47083 Glucose [Mass/Vol] 249 mg/dL High 74 - 99 mg/dL [facility] Interpretation and review of laboratory results Abnormal [facility] Glucose [Mass/Vol] 249 mg/dL High 74-99 [facility] Comment on above: Performed By: #### T HYDS #### ERICA Tam ([id number]) [facility] ([facility]) [address] [place] [address] 49699 Glucose [Mass/Vol] 274 mg/dL High 74 - 99 mg/dL [facility] Interpretation and review of laboratory results Abnormal [facility] Glucose [Mass/Vol] 274 mg/dL High 74-99 [facility] Comment on above: Performed By: #### T HYDS #### ERICA Tam ([id number]) [facility] ([facility]) [address] [place] [address] 56947 Glucose [Mass/Vol] 129 mg/dL High 74 - 99 mg/dL [facility] Interpretation and review of laboratory results Abnormal [facility] Glucose [Mass/Vol] 129 mg/dL High 74-99 [facility] Comment on above: Performed By: #### T HYDS #### ERICA Tam ([id number]) [facility] ([facility]) [address] [place] [address] Glucose [Mass/Vol] 121 mg/dL High 74 - 99 mg/dL [facility] Interpretation and review of laboratory results Abnormal [facility] Glucose [Mass/Vol] 121 mg/dL High 74-99 [facility] Comment on above: Performed By: #### T HYDS #### ERICA Tam ([id number]) [facility] ([facility]) [address] [place] [address] CBC panel Auto (Bld)on 10-17 Erythrocyte distribution width (RBC) [Ratio] 14.6 % High 11.5 - 14.5 % [facility] Hematocrit (Bld) [Volume fraction] 34.3 % Low 41.0 - 52.0 % [facility] Hemoglobin (Bld) [Mass/Vol] 10.7 g/dL Low 13.5 - 17.5 g/dL [facility] Interpretation and review of laboratory results Abnormal [facility] MCH (RBC) [Entitic mass] 28.7 pg 26.0 - 34.0 pg [facility] MCHC (RBC) [Mass/Vol] 31.2 g/dL Low 32.0 - 36.0 g/dL [facility] MCV (RBC) [Entitic vol] 92 fL 80 - 100 fL [facility] Nucleated RBC/100 WBC (Bld) [Ratio] 0.0 % [facility] Platelets (Bld) [#/Vol] 295 10*3/uL [facility] RBC (Bld) [#/Vol] 3.73 10*6/uL Low [facility] WBC (Bld) [#/Vol] 7.2 10*3/uL [facility] Erythrocyte distribution width (RBC) [Ratio] 14.6 % High 11.5-14.[address] [facility] Comment on above: Performed By: #### L IPIN #### ERICA Tam ([id number]) [facility] ([facility]) [address] [place] [address] Hematocrit (Bld) [Volume fraction] 34.3 % Low 41.0-52.[address] [facility] Comment on above: Performed By: #### L IPIN #### ERICA Tam ([id number]) [facility] ([facility]) [id number] [place] [address] 88727 Hemoglobin (Bld) [Mass/Vol] 10.7 g/dL Low 13.5-17.[address] [facility] Comment on above: Performed By: #### L IPIN #### ERICA Tam ([id number]) [facility] ([facility]) [address] [place] [address] 38739 MCH (RBC) [Entitic mass] 28.7 pg Normal 26.0-34.[address] [facility] Comment on above: Performed By: #### L IPIN #### ERICA Tam ([id number]) [facility] ([facility]) [address] [place] [address] 95693 MCHC (RBC) [Mass/Vol] 31.2 g/dL Low 32.0-36.0 [facility] Comment on above: Performed By: #### L IPIN #### ERICA Tam ([id number]) [facility] ([facility]) [address] [place] [address] 15658 MCV (RBC) [Entitic vol] 92 fL Normal 80-100 [facility] Comment on above: Performed By: #### L IPIN #### ERICA Tam ([id number]) [facility] ([facility]) [address] [place] [address] 36888 Nucleated RBC/100 WBC (Bld) [Ratio] 0.0 /100 WBCs Normal 0.0-0.[address] [facility] Comment on above: Performed By: #### L IPIN #### ERICA Tam ([id number]) [facility] ([facility]) [id number] [place] [address] 27200 Platelets (Bld) [#/Vol] 295 x10*3/uL Normal 150-[address] [facility] Comment on above: Performed By: #### L IPIN #### ERICA Tam ([id number]) [facility] ([facility]) [address] [place] [address] 16435 RBC (Bld) [#/Vol] 3.73 x10*6/uL Low 4.50-5.90 [facility] Comment on above: Performed By: #### L IPIN #### ERICA Tam ([id number]) [facility] ([facility]) [address] [place] [address] 54200 WBC (Bld) [#/Vol] 7.2 x10*3/uL Normal 4.4-11.3 [facility] Comment on above: Performed By: #### L IPIN #### ERICA Tam ([id number]) [facility] ([facility]) [address] [place] [address] 29077 Glucose Test strip manual (B ld) [Mass/Vol]on 10-18-2023 Glucose [Mass/Vol] 169 mg/dL High 74 - 99 mg/dL [facility] Interpretation and review of laboratory results Abnormal [facility] Glucose [Mass/Vol] 169 mg/dL High 74-99 [facility] Comment on above: Performed By: #### T HYDS #### ERICA Tam ([id number]) [facility] ([facility]) [address] [place] [address] 44037 Glucose [Mass/Vol] 238 mg/dL High 74 - 99 mg/dL [facility] Interpretation and review of laboratory results Abnormal [facility] Glucose [Mass/Vol] 238 mg/dL High 74-99 [facility] Comment on above: Performed By: #### L IPIN #### ERICA Tam ([id number]) [facility] ([facility]) [address] [place] [address] 26130 Glucose [Mass/Vol] 251 mg/dL High 74 - 99 mg/dL [facility] Interpretation and review of laboratory results Abnormal [facility] Glucose [Mass/Vol] 251 mg/dL High 74-99 [facility] Comment on above: Performed By: #### L IPIN #### ERICA Tam ([id number]) [facility] ([facility]) [address] [place] [address] 71100 Glucose [Mass/Vol] 191 mg/dL High 74 - 99 mg/dL [facility] Interpretation and review of laboratory results Abnormal [facility] Glucose [Mass/Vol] 191 mg/dL High 74-99 [facility] Comment on above: Performed By: #### L IPIN #### ERICA Tam ([id number]) [facility] ([facility]) [address] [place] [address] 47534 Heparin Assay, UFHon 024 Heparin unfractionated Chromogenic method Qn (PPP) 0.4 See Comment Below for Therapeutic Ranges IU/mL [facility] Heparin unfractionated Chrom ogenic method Qn (PPP)on 10-18-2023 Interpretation and review of laboratory results Normal [facility] The therapeutic reference range for UFH may be either 0.3-0.6 IU/mL or 0.3-0.7 IU/mL based on the clinical setting for anticoagulant therapy and the associated nomogram used. For Heparin dosing guidelines based on clinical scenario and Heparin Assay results, please refer to local Pharmacy and the [facility] Guidelines for Anticoagulation Therapy available on the [facility] intranet at: [email or web address]_ Guidelines_[email or web address]_Anticoagu .aspx [facility] Heparin.unfractionatedon Heparin unfractionated Chromogenic method Qn (PPP) 0.4 IU/mL Normal See Comment Below for Therapeutic Ranges [facility] Comment on above: Order Comment: When [...] please refer to local Pharmacy and the [facility] Guidelines for Anticoagulation Therapy available on the [facility] intranet at: [email or web address]_ [email or web address]_Guidelines_for_Anticoagu.aspx Performed By: #### L IPIN #### ERICA Tam ([id number]) [facility] ([facility]) [address] [place], [place] [address] Magnesiumon 10-18-2023 Magnesium [Mass/Vol] 1.77 mg/dL 1.60 - 2.40 mg/dL [facility] Magnesium [Mass/Vol] 1.77 mg/dL Normal 1.60-2.40 [facility] Comment on above: Performed By: #### L IPIN #### ERICA Tam ([id number]) [facility] ([facility]) [address] [place], [place] [address] Magnesium [Mass/Vol]on 10-17 Interpretation and review of laboratory results Normal [facility] No Panel Informationon 10-17 [facility] Renal function 2000 panelon 10-18-2023 Albumin BCP dye [Mass/Vol] 3.3 g/dL Low 3.4 - 5.0 g/dL [facility] Anion gap [Moles/Vol] 12 mmol/L 10 - 2 0 mmol/L [facility] Calcium [Mass/Vol] 8.5 mg/dL Low 8.6 - 10. 6 mg/dL [facility] Chloride [Moles/Vol] 103 mmol/L 98 - 10 7 mmol/L [facility] CO2 [Moles/Vol] 26 mmol/L 21 - 32 mmol/L [facility] Creatinine [Mass/Vol] 1.58 mg/dL High 0.50 - 1.30 mg/dL [facility] GFR/1.73 sq M.predicted among non-blacks MDRD (S/P/Bld) [Vol rate/Area] 47 mL/min/{1.73_m2} Low - PINF [facility] Comment on above: Calculations of mercedez mated GFR are performed using the 2020 CKD-EPI Study Refit equation without the race variable for the IDMS-Traceable creatinine methods. https://jasn.asnjournals.org/content/early/ASN.2020 297068 Glucose [Mass/Vol] 220 mg/dL High 74 - 99 mg/dL [facility] Interpretation and review of laboratory results Abnormal [facility] Phosphate [Mass/Vol] 2.8 mg/dL 2.5 - 4 .9 mg/dL [facility] Comment on above: The performance cecilia acteristics of phosphorus testing in heparinized plasma have been validated by the individual laboratory site where testing is performed. Testing on heparinized plasma is not approved by the FDA; however, such approval is not necessary. Potassium [Moles/Vol] 4.1 mmol/L 3.5 - 5.3 mmol/L [facility] Sodium [Moles/Vol] 137 mmol/L 136 - 145 mmol/L [facility] Urea nitrogen [Mass/Vol] 25 mg/dL High 6 - 23 mg/dL [facility] Albumin BCP dye [Mass/Vol] 3.3 g/dL Low 3.4-5.[address] [facility] Comment on above: Performed By: #### T HYDS #### ERICA Tam ([id number]) [facility] ([facility]) [id number] [place] [address] 52075 Anion gap [Moles/Vol] 12 mmol/L Normal 10-20 [facility] Comment on above: Performed By: #### T HYDS #### ERICA MCDONALD L ([id number]) [facility] ([facility]) [address] [place] [address] Calcium [Mass/Vol] 8.5 mg/dL Low 8.6-10.6 [facility] Comment on above: Performed By: #### T HYDS #### ERICA MCDONALD L ([id number]) [facility] ([facility]) [id number] [place] [address] 24751 Chloride [Moles/Vol] 103 mmol/L Normal 98-107 [facility] Comment on above: Performed By: #### T HYDS #### ERICA Tam ([id number]) [facility] ([facility]) [address] [place] [address] CO2 [Moles/Vol] 26 mmol/L Normal 21-[address] [facility] Comment on above: Performed By: #### T HYDS #### ERICA Tam ([id number]) [facility] ([facility]) [address] [place] [address] Creatinine [Mass/Vol] 1.58 mg/dL High 0.50-1.30 [facility] Comment on above: Performed By: #### T HYDS #### ERICA Tam ([id number]) [facility] ([facility]) [id number] [place] [address] 35141 Glomerular filtration rate/1.73 sq M.predicted 47 mL/min/1.73m*2 Low >[address] [facility] Comment on above: Result Comment: Calc ulations of estimated GFR are performed using the 2020 CKD-EPI Study Refit equation without the race variable for the IDMS-Traceable creatinine methods. https://jasn.asnjournals.org/content/early//ASN.2020 002179 Performed By: #### T HYDS #### ERICA Tam ([id number]) [facility] ([facility]) [address] [place] [address] Glucose [Mass/Vol] 220 mg/dL High 74-99 [facility] Comment on above: Performed By: #### T HYDS #### ERICA Tam ([id number]) [facility] ([facility]) [address] [place] [address] 04400 Phosphate [Mass/Vol] 2.8 mg/dL Normal 2.5-4.9 [facility] Comment on above: Result Comment: The performance characteristics of phosphorus testing in heparinized plasma have been validated by the individual laboratory site where testing is performed. Testing on heparinized plasma is not approved by the FDA; however, such approval is not necessary. Performed By: #### T HYDS #### ERICA SCHMOTZER L ([id number]) [facility] ([facility]) [address] [place] [address] Potassium [Moles/Vol] 4.1 mmol/L Normal 3.5-5.3 [facility] Comment on above: Performed By: #### T HYDS #### ERICA SCHMOTZER L ([id number]) [facility] ([facility]) [address] [place] [address] 84153 Sodium [Moles/Vol] 137 mmol/L Normal 136-145 [facility] Comment on above: Performed By: #### T HYDS #### ERICA SCHMOTZER L ([id number]) [facility] ([facility]) [id number] [place] [address] 69092 Urea nitrogen [Mass/Vol] 25 mg/dL High 6-[address] [facility] Comment on above: Performed By: #### T HYDS #### ERICA SCHMOTZER L ([id number]) [facility] ([facility]) [id number] [place] [address] 80811 XR Chest 2 Viewson 4 1. Cardiomegaly with pulmonary edema and correlate with cardiac and fluid status. Signed by: Rex Ballesteros 10/18/2023 7:12 AM Dictation workstation: [id number] [facility] Interpreted By: Rex Ballesteros, STUDY: XR CHEST 2 VIEWS; 10/16/2023 2:01 pm INDICATION: Signs/Symptoms:CABG evaluation. COMPARISON: None. ACCESSION NUMBER(S): [id number] ORDERING CLINICIAN: CATIA PATTON FINDINGS: CARDIOMEDIASTINAL SILHOUETTE: Cardiomegaly versus pericardial effusion. Right hilar calcifications. LUNGS: Low lung volumes with perihilar bibasilar atelectasis/effusions. ABDOMEN: No remarkable upper abdominal findings. BONES: No acute osseous changes. [facility] Steph Ballesteros MD - 10/18/2023 Interpreted By: Rex Ballesteros, STUDY: XR CHEST 2 VIEWS; 10/16/2023 2:01 pm INDICATION: Signs/Symptoms:CABG evaluation. COMPARISON: None. ACCESSION NUMBER(S): [id number] ORDERING CLINICIAN: CATIA PATTON FINDINGS: CARDIOMEDIASTINAL SILHOUETTE: Cardiomegaly versus pericardial effusion. Right hilar calcifications. LUNGS: Low lung volumes with perihilar bibasilar atelectasis/effusions. ABDOMEN: No remarkable upper abdominal findings. BONES: No acute osseous changes. IMPRESSION: 1. Cardiomegaly with pulmonary edema and correlate with cardiac and fluid status. Signed by: Rex Ballesteros 10/18/2023 7:12 AM Dictation workstation: [id number] [facility] Work Phone: XR Chest 2 ViewsOrdered By: Steph Ballesteros on 10-18-2023 [facility] Work Phone: CBC panel Auto (Bld)on 10-16 Erythrocyte distribution width (RBC) [Ratio] 14.5 % 11.5 - 14.5 % [facility] Hematocrit (Bld) [Volume fraction] 35.2 % Low 41.0 - 52.0 % [facility] Hemoglobin (Bld) [Mass/Vol] 11.1 g/dL Low 13.5 - 17.5 g/dL [facility] Interpretation and review of laboratory results Abnormal [facility] MCH (RBC) [Entitic mass] 29.1 pg 26.0 - 34.0 pg [facility] MCHC (RBC) [Mass/Vol] 31.5 g/dL Low 32.0 - 36.0 g/dL [facility] MCV (RBC) [Entitic vol] 92 fL 80 - 100 fL [facility] Nucleated RBC/100 WBC (Bld) [Ratio] 0.0 % [facility] Platelets (Bld) [#/Vol] 316 10*3/uL [facility] RBC (Bld) [#/Vol] 3.82 10*6/uL Low [facility] WBC (Bld) [#/Vol] 8.6 10*3/uL [facility] Erythrocyte distribution width (RBC) [Ratio] 14.5 % Normal 11.5-14.[address] [facility] Comment on above: Performed By: #### 2 4323-8 #### ERICA Tam ([id number]) [facility] ([facility]) [address] [place] [address] 20412 Hematocrit (Bld) [Volume fraction] 35.2 % Low 41.0-52.[address] [facility] Comment on above: Performed By: #### 2 4323-8 #### ERICA Tam ([id number]) [facility] ([facility]) [id number] [place] [address] 71184 Hemoglobin (Bld) [Mass/Vol] 11.1 g/dL Low 13.5-17.[address] [facility] Comment on above: Performed By: #### 2 4323-8 #### ERICA Tam ([id number]) [facility] ([facility]) [id number] [place] [address] 63970 MCH (RBC) [Entitic mass] 29.1 pg Normal 26.0-34.[address] [facility] Comment on above: Performed By: #### 2 4323-8 #### ERICA Tam ([id number]) [facility] ([facility]) [address] [place] [address] 13857 MCHC (RBC) [Mass/Vol] 31.5 g/dL Low 32.0-36.0 [facility] Comment on above: Performed By: #### 2 4323-8 #### ERICA Tam ([id number]) [facility] ([facility]) [address] [place] [address] 95788 MCV (RBC) [Entitic vol] 92 fL Normal 80-100 U [facility] Comment on above: Performed By: #### 2 4323-8 #### ERICA Tam ([id number]) [facility] ([facility]) [address] [place] [address] 26091 Nucleated RBC/100 WBC (Bld) [Ratio] 0.0 /100 WBCs Normal 0.0-0.[address] [facility] Comment on above: Performed By: #### 2 4323-8 #### ERICA Tam ([id number]) [facility] ([facility]) [address] [place] [address] 01584 Platelets (Bld) [#/Vol] 316 x10*3/uL Normal 150-[address] [facility] Comment on above: Performed By: #### 2 4323-8 #### ERICA Tam ([id number]) [facility] ([facility]) [id number] [place] [address] 07082 RBC (Bld) [#/Vol] 3.82 x10*6/uL Low 4.50-5.90 [facility] Comment on above: Performed By: #### 2 4323-8 #### ERICA Tam ([id number]) [facility] ([facility]) [address] [place] [address] 47997 WBC (Bld) [#/Vol] 8.6 x10*3/uL Normal 4.4-11.3 [facility] Comment on above: Performed By: #### 2 4323-8 #### ERICA Tam ([id number]) [facility] ([facility]) [address] [place] [address] 58792 Glucose Test strip manual (B ld) [Mass/Vol]on 10-17-2023 Glucose [Mass/Vol] 217 mg/dL High 74 - 99 mg/dL [facility] Interpretation and review of laboratory results Abnormal [facility] Glucose [Mass/Vol] 217 mg/dL High 74-99 [facility] Comment on above: Performed By: #### L IPIN #### ERICA Tam ([id number]) [facility] ([facility]) [address] [place] [address] 34802 Glucose [Mass/Vol] 271 mg/dL High 74 - 99 mg/dL [facility] Interpretation and review of laboratory results Abnormal [facility] Glucose [Mass/Vol] 271 mg/dL High 74-99 [facility] Comment on above: Performed By: #### 2 4323-8 #### ERICA Tam ([id number]) [facility] ([facility]) [address] [place] [address] 92941 Glucose [Mass/Vol] 189 mg/dL High 74 - 99 mg/dL [facility] Interpretation and review of laboratory results Abnormal [facility] Glucose [Mass/Vol] 189 mg/dL High 74-99 [facility] Comment on above: Performed By: #### 2 4323-8 #### ERICA Tam ([id number]) [facility] ([facility]) [address] [place] [address]29 Glucose [Mass/Vol] 256 mg/dL High 74 - 99 mg/dL [facility] Interpretation and review of laboratory results Abnormal [facility] Glucose [Mass/Vol] 256 mg/dL High 74-99 [facility] Comment on above: Performed By: #### 2 4323-8 #### ERICA Tam ([id number]) [facility] ([facility]) [address] [place] [address] 70389 Glucose [Mass/Vol] 176 mg/dL High 74 - 99 mg/dL [facility] Interpretation and review of laboratory results Abnormal [facility] Glucose [Mass/Vol] 176 mg/dL High 74-99 [facility] Comment on above: Performed By: #### 1 4979-9 #### ERICA Tam ([id number]) [facility] ([facility]) [address] [place] [address] 96423 Heparin Assay, UFHon 08-28-2 024 Heparin unfractionated Chromogenic method Qn (PPP) 0.3 See Comment Below for Therapeutic Ranges IU/mL [facility] Heparin unfractionated Chromogenic method Qn (PPP) 0.5 See Comment Below for Therapeutic Ranges IU/mL [facility] Heparin unfractionated Chromogenic method Qn (PPP) 0.2 See Comment Below for Therapeutic Ranges IU/mL [facility] Heparin unfractionated Chromogenic method Qn (PPP) 0.3 See Comment Below for Therapeutic Ranges IU/mL [facility] Heparin unfractionated Chrom ogenic method Qn (PPP)on 10-17-2023 Interpretation and review of laboratory results Normal [facility] The therapeutic reference range for UFH may be either 0.3-0.6 IU/mL or 0.3-0.7 IU/mL based on the clinical setting for anticoagulant therapy and the associated nomogram used. For Heparin dosing guidelines based on clinical scenario and Heparin Assay results, please refer to local Pharmacy and [facility] Guidelines for Anticoagulation Therapy available on the [facility] intranet at: [email or web address] es/[facility]ren_[facility]_ Guidelines_for_Anticoagu .aspx [facility] Interpretation and review of laboratory results Normal [facility] The therapeutic reference range for UFH may be either 0.3-0.6 IU/mL or 0.3-0.7 IU/mL based on the clinical setting for anticoagulant therapy and the associated nomogram used. For Heparin dosing guidelines based on clinical scenario and Heparin Assay results, please refer to local Pharmacy and [facility] Guidelines for Anticoagulation Therapy available on the [facility] intranet at: [email or web address]/Pag es/[facility]_ Guidelines_for_Anticoagu .aspx [facility] Interpretation and review of laboratory results Normal [facility] The therapeutic reference range for UFH may be either 0.3-0.6 IU/mL or 0.3-0.7 IU/mL based on the clinical setting for anticoagulant therapy and the associated nomogram used. For Heparin dosing guidelines based on clinical scenario and Heparin Assay results, please refer to local Pharmacy and [facility] Guidelines for Anticoagulation Therapy available on the [facility] intranet at: [email or web address]/Pag es/[facility]_ Guidelines_for_Anticoagu .aspx [facility] Interpretation and review of laboratory results Normal [facility] The therapeutic reference range for UFH may be either 0.3-0.6 IU/mL or 0.3-0.7 IU/mL based on the clinical setting for anticoagulant therapy and the associated nomogram used. For Heparin dosing guidelines based on clinical scenario and Heparin Assay results, please refer to local Pharmacy and the [facility] Guidelines for Anticoagulation Therapy available on the [facility] intranet at: [email or web address]/Pag es/[facility]_ Guidelines_for_Anticoagu .aspx [facility] Heparin.unfractionatedon Heparin unfractionated Chromogenic method Qn (PPP) 0.3 IU/mL Normal See Comment Below for Therapeutic Ranges [facility] Comment on above: Order Comment: Obtai [...] please refer to local Pharmacy and the [facility] Guidelines for Anticoagulation Therapy available on the [facility] intranet at: [email or web address]/Pharmacy/Pages/Wren_ [facility]_Guidelines_for_Anticoagu.aspx Performed By: #### 2 4323-8 #### ERICA Tam ([id number]) [facility] ([place] [address] Heparin unfractionated Chromogenic method Qn (PPP) 0.5 IU/mL Normal See Comment Below for Therapeutic Ranges [facility] Comment on above: Order Comment: Obtai [...] please refer to local Pharmacy and the [facility] Guidelines for Anticoagulation Therapy available on the [facility] intranet at: [email or web address]/Pharmacy/Pages/[facility]_ [facility]_Guidelines_for_Anticoagu.aspx Performed By: #### 2 4323-8 #### ERICA Tam ([id number]) [facility] ([facility]) [id number] [place] [address] 33717 Heparin unfractionated Chromogenic method Qn (PPP) 0.2 IU/mL Normal See Comment Below for Therapeutic Ranges [facility] Comment on above: Order Comment: Prior to initiating heparin if not obtained in prior 48 hours. Nursing to release order. The APTT is no longer used for monitoring Unfractionated Heparin Therapy. For monitoring Heparin Therapy, use the Heparin Assay. Performed By: #### 1 4979-9 #### ERICA Tam ([id number]) [facility] ([facility]) [address] [place] [address] 05803 MRSA isol Org specific cx Ql (Nose)Ordered By: Lilliam Gandhi on 10-17-2023 Interpretation and review of laboratory results Normal [facility] Staphylococcus sp identified Org specific cx Nom (Unsp spec) No Staphylococcus aureus isolated [facility] Magnesiumon 10-17-2023 Magnesium [Mass/Vol] 1.94 mg/dL 1.60 - 2.40 mg/dL [facility] Magnesium [Mass/Vol] 1.94 mg/dL Normal 1.60-2.40 [facility] Comment on above: Performed By: #### L IPIN #### ERICA Tam ([id number]) [facility] ([facility]) [address] [place] [address] 91299 Magnesium [Mass/Vol]on 10-16 Interpretation and review of laboratory results Normal [facility] No Panel Informationon 10-16 [facility] Radiology Study observation (narrative) [facility] Work Phone: Renal function 2000 panelon 10-17-2023 Albumin BCP dye [Mass/Vol] 3.1 g/dL Low 3.4 - 5.0 g/dL [facility] Anion gap [Moles/Vol] 9 mmol/L Low 10 - 2 0 mmol/L [facility] Calcium [Mass/Vol] 8.2 mg/dL Low 8.6 - 10. 6 mg/dL [facility] Chloride [Moles/Vol] 104 mmol/L 98 - 10 7 mmol/L [facility] CO2 [Moles/Vol] 28 mmol/L 21 - 32 mmol/L [facility] Creatinine [Mass/Vol] 1.35 mg/dL High 0.50 - 1.30 mg/dL [facility] GFR/1.73 sq M.predicted among non-blacks MDRD (S/P/Bld) [Vol rate/Area] 57 mL/min/{1.73_m2} Low - PINF [facility] Comment on above: Calculations of mercedez mated GFR are performed using the 2020 CKD-EPI Study Refit equation without the race variable for the IDMS-Traceable creatinine methods. https://jasn.asnjournals.org/content/early//ASN.2020 275951 Glucose [Mass/Vol] 274 mg/dL High 74 - 99 mg/dL [facility] Interpretation and review of laboratory results Abnormal [facility] Phosphate [Mass/Vol] 2.5 mg/dL 2.5 - 4 .9 mg/dL [facility] Comment on above: The performance cecilia acteristics of phosphorus testing in heparinized plasma have been validated by the individual laboratory site where testing is performed. Testing on heparinized plasma is not approved by the FDA; however, such approval is not necessary. Potassium [Moles/Vol] 4.3 mmol/L 3.5 - 5.3 mmol/L [facility] Sodium [Moles/Vol] 137 mmol/L 136 - 145 mmol/L [facility] Urea nitrogen [Mass/Vol] 27 mg/dL High 6 - 23 mg/dL [facility] Albumin BCP dye [Mass/Vol] 3.1 g/dL Low 3.4-5.[address] [facility] Comment on above: Performed By: #### L IPIN #### ERICA Tam ([id number]) [facility] ([facility]) [id number] [place] [address] 44407 Anion gap [Moles/Vol] 9 mmol/L Low 10-20 [facility] Comment on above: Performed By: #### L IPIN #### ERICA Tam ([id number]) [facility] ([facility]) [address] [place] [address] Calcium [Mass/Vol] 8.2 mg/dL Low 8.6-10.6 [facility] Comment on above: Performed By: #### L IPIN #### ERICA Tam ([id number]) [facility] ([facility]) [address] [place] [address] Chloride [Moles/Vol] 104 mmol/L Normal 98-107 [facility] Comment on above: Performed By: #### L IPIN #### ERICA Tam ([id number]) [facility] ([facility]) [address] [place] [address] CO2 [Moles/Vol] 28 mmol/L Normal 21-[address] [facility] Comment on above: Performed By: #### L IPIN #### ERICA Tam ([id number]) [facility] ([facility]) [id number] [place] [address] 69590 Creatinine [Mass/Vol] 1.35 mg/dL High 0.50-1.30 [facility] Comment on above: Performed By: #### L IPIN #### ERICA Tam ([id number]) [facility] ([facility]) [address] [place] [address] 98594 Glomerular filtration rate/1.73 sq M.predicted 57 mL/min/1.73m*2 Low >[address] [facility] Comment on above: Result Comment: Calc ulations of estimated GFR are performed using the 2020 CKD-EPI Study Refit equation without the race variable for the IDMS-Traceable creatinine methods. https://jasn.asnjournals.org/content/early//ASN.2020 959887 Performed By: #### L IPIN #### ERICA Tam ([id number]) [facility] ([facility]) [address] [place] [address] Glucose [Mass/Vol] 274 mg/dL High 74-99 [facility] Comment on above: Performed By: #### L IPIN #### ERICA Tam ([id number]) [facility] ([facility]) [address] [place] [address] 16473 Phosphate [Mass/Vol] 2.5 mg/dL Normal 2.5-4.9 [facility] Comment on above: Result Comment: The performance characteristics of phosphorus testing in heparinized plasma have been validated by the individual laboratory site where testing is performed. Testing on heparinized plasma is not approved by the FDA; however, such approval is not necessary. Performed By: #### L IPIN #### ERICA Tam ([id number]) [facility] ([facility]) [address] [place] [address] 90153 Potassium [Moles/Vol] 4.3 mmol/L Normal 3.5-5.3 [facility] Comment on above: Performed By: #### L IPIN #### ERICA Tam ([id number]) [facility] ([facility]) [address] [place] [address] 92479 Sodium [Moles/Vol] 137 mmol/L Normal 136-145 [facility] Comment on above: Performed By: #### L IPIN #### ERICA Tam ([id number]) [facility] ([facility]) [address] [place] [address] 73376 Urea nitrogen [Mass/Vol] 27 mg/dL High 6-[address] [facility] Comment on above: Performed By: #### L IPIN #### ERICA Tam ([id number]) [facility] ([facility]) [address] [place] [address] 67378 US.doppler Carotid arteries - bilateralon 10-17-[address] [address] and Vascular Lab Report [facility] US CAROTID ARTERY DUPLEX BILATERAL Patient Name: ITALIA Alfaro Physician: [id number] Marshal Nolan MD Study Date: 10/17/2023 Ordering [id number] RU Mina Physician: CUATE MRN/PID: [id number] Technologist: Gallito Marie RVS Technologist 2: Date of /Age: 5 1955 years Gender: M Admission Status: Inpatient Location [facility] Performed: Diagnosis/ICD: Encounter for preprocedural cardiovascular examination-Z01.810 Indication: Pre-Op CABG CPT Codes: 01545 Cerebrovascular Carotid Duplex scan complete Patient History [...] cm/s Right Left ICA/CCA Ratio 0.0 1.3 [id number] Marshal Nolan MD Final Marshal Alvarez MD - 10/17/2023 [place] [address] and Vascular Lab Report [facility] US CAROTID ARTERY DUPLEX BILATERAL Patient Name: ITALIA Alfaro Physician: [id number] Marshal Nolan MD Study Date: 10/17/2023 Ordering [id number] RU Mina Physician: CUATE MRN/PID: [id number] Technologist: Gallito HARTMANN Technologist 2: Date of /Age: 5 1955 years Gender: M Admission Status: Inpatient Location [facility] Performed: Diagnosis/ICD: Encounter for preprocedural cardiovascular examination-Z01.810 Indication: Pre-Op CABG CPT Codes: 27478 Cerebrovascular Carotid Duplex scan complete Patient History [...] cm/s Right Left ICA/CCA Ratio 0.0 1.3 [id number] Nolan MD Final [facility] Work Phone: [facility] Work Phone: [facility] US ANKLE BRACHIAL INDEX (LUCIO) WITHOUT EXERCISEon 10-17-2023 VAS US ANKLE BRACHIAL INDEX (LUCIO) WITHOUT EXERCISE [place] [address] and Vascular Lab Report [facility] US ANKLE BRACHIAL INDEX (LUCIO) WITHOUT EXERCISE Patient Name: ITALIA Alfaro Physician: [id number] Nolan MD Study Date: 10/17/2023 Ordering [id number] RU Mina Physician: CUATE MRN/PID: [id number] Technologist: Sandy Smith [facility] Technologist 2: Date of /Age: 5 1955 years Gender: M Admission Status: Inpatient Location [facility] Performed: Diagnosis/ICD: Peripheral vascular disease, unspecified-I73.9 CPT Codes: 74272 Peripheral artery LUCIO Only CONCLUSIONS: Right Lower [...] Left Brachial Pressure 155 mmHg 149 mmHg [id number] Nolan MD Final [facility] US CAROTID ARTERY DUPLE X BILATERALon 10-17-2023 [facility] US CAROTID ARTERY DUPLEX BILATERAL [place] [address] and Vascular Lab Report [facility] US CAROTID ARTERY DUPLEX BILATERAL Patient Name: ITALIA Alfaro Physician: [id number] Nolan MD Study Date: 10/17/2023 Ordering [id number] RU Mina Physician: CUATE MRN/PID: [id number] Technologist: Gallito HARTMANN Technologist 2: Date of /Age: 5 1955 years Gender: M Admission Status: Inpatient Location [facility] Performed: Diagnosis/ICD: Encounter for preprocedural cardiovascular examination-Z01.810 Indication: Pre-Op CABG CPT Codes: 82000 Cerebrovascular Carotid Duplex scan complete Patient History [...] cm/s Right Left ICA/CCA Ratio 0.0 1.3 [id number] Marshal Nolan MD Final [facility] US LOWER EXTREMITY VEIN MAPPING BILATERALon 10-17-2023 [facility] US LOWER EXTREMITY VEIN MAPPING BILATERAL [place] [address] and Vascular Lab Report [facility] US LOWER EXTREMITY VEIN MAPPING BILATERAL Patient Name: ITALIA ALLEN Angelina Physician: [id number] Nolan MD Study Date: 10/17/2023 Ordering [id number] RU Mina Physician: CUATE MRN/PID: [id number] Technologist: Gallito HARTMANN Technologist 2: Date of /Age: 5 1955 years Gender: M Admission Status: Inpatient Location [facility] Performed: Diagnosis/ICD: Encounter for preprocedural cardiovascular examination-Z01.810 Indication: Pre-operative exam CPT Codes: 64448 Vein mapping complete Patient History CAD. CONCLUSIONS: [...] Dist Calf GSV Yes None 1.0 mm [id number] Nolan MD Final Normal [facility] Vascular US Ankle Brachial I ndex (LUCIO) Without Exerciseon 10-17-2023 Body surface area Derived from formula 2.37 m2 [facility] Work Phone: [place] [address] and Vascular Lab Report [facility] US ANKLE BRACHIAL INDEX (LUCIO) WITHOUT EXERCISE Patient Name: ITALIA BIGGSBRISEYDA Alfaro Physician: [id number] Nolan MD Study Date: 10/17/2023 Ordering [id number] RU Mina Physician: CUATE MRN/PID: [id number] Technologist: Sandy Smith Chuck Technologist 2: Date of /Age: 5 1955 years Gender: M Admission Status: Inpatient Location [facility] Performed: Diagnosis/ICD: Peripheral vascular disease, unspecified-I73.9 CPT Codes: 34714 Peripheral artery LUCIO Only CONCLUSIONS: Right Lower [...] MD Final Marshal Alvarez MD - 10/17/2023 [place] [address] and Vascular Lab Report [facility] US ANKLE BRACHIAL INDEX (LUCIO) WITHOUT EXERCISE Patient Name: ITALIA Alfaro Physician: Myriam Nolan MD Study Date: 10/17/2023 Ordering [id number] RU Mina Physician: CUATE MRN/PID: [id number] Technologist: Sandy Smith [facility] Technologist 2: Date of /Age: 5 1955 years Gender: M Admission Status: Inpatient Location [facility] Performed: Diagnosis/ICD: Peripheral vascular disease, unspecified-I73.9 CPT Codes: 74680 Peripheral artery LUCIO Only CONCLUSIONS: Right Lower [...] Left Brachial Pressure 155 mmHg 149 mmHg [id number] Nolan MD Final [facility] Work Phone: [facility] Work Phone: Vascular US Lower Extremity Vein Mapping Bilateralon 10-17-2023 [place] [address] [address] [facility] US LOWER EXTREMITY VEIN MAPPING BILATERAL Patient Name: ITALIA Alfaro Physician: [id number] Marshal Nolan MD Study Date: 10/17/2023 Ordering [id number] RU Mina Physician: CUATE MRN/PID: [id number] Technologist: Gallito Marie Jitendra Technologist 2: Date of /Age: 5 1955 years Gender: M Admission Status: Inpatient Location [facility] Performed: Diagnosis/ICD: Encounter for preprocedural cardiovascular examination-Z01.810 Indication: Pre-operative exam CPT Codes: 88897 Vein mapping complete Patient History CAD. CONCLUSIONS: [...] Dist Calf GSV Yes None 1.0 mm [id number] Nolan MD Final Marshal Alvarez MD - 10/17/2023 [place] [address] and Vascular Lab Report [facility] US LOWER EXTREMITY VEIN MAPPING BILATERAL Patient Name: ITALIA BIGGSBRISEYDA Alfaro Physician: [id number] Nolan MD Study Date: 10/17/2023 Ordering [id number] RU Mina Physician: CUATE MRN/PID: [id number] Technologist: Gallito Marie Jitendra Technologist 2: Date of /Age: 5 1955 years Gender: M Admission Status: Inpatient Location [facility] Performed: Diagnosis/ICD: Encounter for preprocedural cardiovascular examination-Z01.810 Indication: Pre-operative exam CPT Codes: 18543 Vein mapping complete Patient History CAD. CONCLUSIONS: [...] Dist Calf GSV Yes None 1.0 mm [id number] Marshal Nolan MD Final [facility] Work Phone: Vascular US Lower Extremity Vein Mapping BilateralOrdered By: Marshal Nolan on 10-17-2023 [facility] Work Phone: CBC panel Auto (Bld)on 10-15 Erythrocyte distribution width (RBC) [Ratio] 14.4 % 11.5 - 14.5 % [facility] Hematocrit (Bld) [Volume fraction] 33.4 % Low 41.0 - 52.0 % [facility] Hemoglobin (Bld) [Mass/Vol] 10.5 g/dL Low 13.5 - 17.5 g/dL [facility] Interpretation and review of laboratory results Abnormal [facility] MCH (RBC) [Entitic mass] 28.5 pg 26.0 - 34.0 pg [facility] MCHC (RBC) [Mass/Vol] 31.4 g/dL Low 32.0 - 36.0 g/dL [facility] MCV (RBC) [Entitic vol] 91 fL 80 - 100 fL [facility] Nucleated RBC/100 WBC (Bld) [Ratio] 0.0 % [facility] Platelets (Bld) [#/Vol] 283 10*3/uL [facility] RBC (Bld) [#/Vol] 3.69 10*6/uL Low [facility] WBC (Bld) [#/Vol] 8.2 10*3/uL [facility] Erythrocyte distribution width (RBC) [Ratio] 14.4 % Normal 11.5-14.[address] [facility] Comment on above: Performed By: #### 1 4979-9 #### ERICA Tam ([id number]) [facility] ([facility]) [address] [place] [address]174 Hematocrit (Bld) [Volume fraction] 33.4 % Low 41.0-52.[address] [facility] Comment on above: Performed By: #### 1 4979-9 #### ERICA Tam ([id number]) [facility] ([facility]) [address] [place] [address] 03182 Hemoglobin (Bld) [Mass/Vol] 10.5 g/dL Low 13.5-17.[address] [facility] Comment on above: Performed By: #### 1 4979-9 #### ERICA Tam ([id number]) [facility] ([facility]) [address] [place] [address] 74486 MCH (RBC) [Entitic mass] 28.5 pg Normal 26.0-34.[address] [facility] Comment on above: Performed By: #### 1 4979-9 #### ERICA Tam ([id number]) [facility] ([facility]) [address] [place] [address] 56354 MCHC (RBC) [Mass/Vol] 31.4 g/dL Low 32.0-36.0 [facility] Comment on above: Performed By: #### 1 4979-9 #### ERICA Tam ([id number]) [facility] ([facility]) [address] [place] [address] 06544 MCV (RBC) [Entitic vol] 91 fL Normal 80-100 [facility] Comment on above: Performed By: #### 1 4979-9 #### ERICA Tam ([id number]) [facility] ([facility]) [address] [place] [address] 44259 Nucleated RBC/100 WBC (Bld) [Ratio] 0.0 /100 WBCs Normal 0.0-0.[address] [facility] Comment on above: Performed By: #### 1 4979-9 #### ERICA Tam ([id number]) [facility] ([facility]) [address] [place] [address] Platelets (Bld) [#/Vol] 283 x10*3/uL Normal 150-[address] [facility] Comment on above: Performed By: #### 1 4979-9 #### ERICA Tam ([id number]) [facility] ([facility]) [address] [place] [address] RBC (Bld) [#/Vol] 3.69 x10*6/uL Low 4.50-5.90 [facility] Comment on above: Performed By: #### 1 4979-9 #### ERICA Tam ([id number]) [facility] ([facility]) [id number] [place] [address] 27798 WBC (Bld) [#/Vol] 8.2 x10*3/uL Normal 4.4-11.3 [facility] Comment on above: Performed By: #### 1 4979-9 #### ERICA Tam ([id number]) [facility] ([facility]) [id number] [place] [address] 90355 Erythrocyte distribution width (RBC) [Ratio] 14.6 % High 11.5 - 14.5 % [facility] Hematocrit (Bld) [Volume fraction] 35.2 % Low 41.0 - 52.0 % [facility] Hemoglobin (Bld) [Mass/Vol] 11.4 g/dL Low 13.5 - 17.5 g/dL [facility] Interpretation and review of laboratory results Abnormal [facility] MCH (RBC) [Entitic mass] 29.3 pg 26.0 - 34.0 pg [facility] MCHC (RBC) [Mass/Vol] 32.4 g/dL 32.0 - 36.0 g/dL [facility] MCV (RBC) [Entitic vol] 91 fL 80 - 100 fL [facility] Nucleated RBC/100 WBC (Bld) [Ratio] 0.0 % [facility] Platelets (Bld) [#/Vol] 285 10*3/uL [facility] RBC (Bld) [#/Vol] 3.89 10*6/uL Low [facility] WBC (Bld) [#/Vol] 9.3 10*3/uL [facility] Erythrocyte distribution width (RBC) [Ratio] 14.6 % High 11.5-14.[address] [facility] Comment on above: Performed By: #### 5 8410-2 #### ERICA Tam ([id number]) [facility] ([facility]) [address] [place] [address] 75592 Hematocrit (Bld) [Volume fraction] 35.2 % Low 41.0-52.[address] [facility] Comment on above: Performed By: #### 5 8410-2 #### ERICA Tam ([id number]) [facility] ([facility]) [address] [place] [address] 56004 Hemoglobin (Bld) [Mass/Vol] 11.4 g/dL Low 13.5-17.[address] [facility] Comment on above: Performed By: #### 5 8410-2 #### ERICA Tam ([id number]) [facility] ([facility]) [id number] [place] [address] 03156 MCH (RBC) [Entitic mass] 29.3 pg Normal 26.0-34.[address] [facility] Comment on above: Performed By: #### 5 8410-2 #### ERICA Tam ([id number]) [facility] ([facility]) [address] [place] [address] 75112 MCHC (RBC) [Mass/Vol] 32.4 g/dL Normal 32.0-36.0 [facility] Comment on above: Performed By: #### 5 8410-2 #### ERICA aTm ([id number]) [facility] ([facility]) [address] [place] [address] 68251 MCV (RBC) [Entitic vol] 91 fL Normal 80-100 [facility] Comment on above: Performed By: #### 5 8410-2 #### ERICA Tam ([id number]) [facility] ([facility]) [address] [place] [address] 78859 Nucleated RBC/100 WBC (Bld) [Ratio] 0.0 /100 WBCs Normal 0.0-0.[address] [facility] Comment on above: Performed By: #### 5 8410-2 #### ERICA Tam ([id number]) [facility] ([facility]) [id number] [place] [address] 23803 Platelets (Bld) [#/Vol] 285 x10*3/uL Normal 150-[address] [facility] Comment on above: Performed By: #### 5 8410-2 #### ERICA Tam ([id number]) [facility] ([facility]) [address] [place] [address] 48576 RBC (Bld) [#/Vol] 3.89 x10*6/uL Low 4.50-5.90 [facility] Comment on above: Performed By: #### 5 8410-2 #### ERICA Tam ([id number]) [facility] ([facility]) [address] [place] [address] 12932 WBC (Bld) [#/Vol] 9.3 x10*3/uL Normal 4.4-11.3 [facility] Comment on above: Performed By: #### 5 8410-2 #### ERICA Tam ([id number]) [facility] ([facility]) [address] [place] [address] 72647 Coagulation surface inducedo n 10-16-2023 aPTT Coag (PPP) [Time] 30 s Normal 27-38 [facility] Comment on above: Order Comment: Prior to initiating heparin if not obtained in prior 48 hours. Nursing to release order. The APTT is no longer used for monitoring Unfractionated Heparin Therapy. For monitoring Heparin Therapy, use the Heparin Assay. Performed By: #### 1 4979-9 #### ERICA Tam ([id number]) [facility] ([facility]) [address] [place], [place] [address] Coagulation tissue factor in ducedon 10-16-2023 PT Coag (PPP) [Time] 12.5 s Normal 9.8-12.8 [facility] Comment on above: Order Comment: If val monroe has not had PT + INR in the last 24 hours. Nursing to release order. Performed By: #### 5 902-2 #### ERICA Tam ([id number]) [facility] ([facility]) [address] [place], [place] [address] Cobalamin (Vitamin B12) [Mas s/Vol]on 10-16-2023 Interpretation and review of laboratory results Abnormal [facility] Cobalaminson 10-16-2023 Cobalamin (Vitamin B12) [Mass/Vol] 201 pg/mL Low 211-[address] [facility] Comment on above: Performed By: #### 5 902-2 #### ERICA Tam ([id number]) [facility] ([facility]) [address] [place], [place] [address] Comprehensive metabolic 2000 panelon 10-16-2023 Albumin BCP dye [Mass/Vol] 3.3 g/dL Low 3.4 - 5.0 g/dL [facility] ALP [Catalytic activity/Vol] 58 U/L 33 - 136 U/L [facility] ALT With P-5'-P [Catalytic activity/Vol] 15 U/L 10 - 52 U/L [facility] Comment on above: Patients treated wit h Sulfasalazine may generate falsely decreased results for ALT. Anion gap [Moles/Vol] 13 mmol/L 10 - 2 0 mmol/L [facility] AST With P-5'-P [Catalytic activity/Vol] 14 U/L 9 - 39 U/L [facility] Comment on above: MILD HEMOLYSIS DETEC ZAID. The result may be falsely elevated due to hemolysis or other interferents. Clinical correlation is recommended. Repeat testing may be considered. Bilirubin [Mass/Vol] 0.4 mg/dL 0.0 - 1 .2 mg/dL [facility] Calcium [Mass/Vol] 8.3 mg/dL Low 8.6 - 10. 6 mg/dL [facility] Chloride [Moles/Vol] 102 mmol/L 98 - 10 7 mmol/L [facility] CO2 [Moles/Vol] 26 mmol/L 21 - 32 mmol/L [facility] Creatinine [Mass/Vol] 1.64 mg/dL High 0.50 - 1.30 mg/dL [facility] GFR/1.73 sq M.predicted among non-blacks MDRD (S/P/Bld) [Vol rate/Area] 45 mL/min/{1.73_m2} Low - PINF [facility] Comment on above: Calculations of mercedez mated GFR are performed using the 2020 CKD-EPI Study Refit equation without the race variable for the IDMS-Traceable creatinine methods. https://jasn.asnjournals.org/content/early//ASN.2020 412927 Glucose [Mass/Vol] 173 mg/dL High 74 - 99 mg/dL [facility] Interpretation and review of laboratory results Abnormal [facility] Potassium [Moles/Vol] 4.3 mmol/L 3.5 - 5.3 mmol/L [facility] Comment on above: MILD HEMOLYSIS DETEC ZAID. The result may be falsely elevated due to hemolysis or other interferents. Clinical correlation is recommended. Repeat testing may be considered. Protein [Mass/Vol] 5.6 g/dL Low 6.4 - 8.2 g/dL [facility] Sodium [Moles/Vol] 137 mmol/L 136 - 145 mmol/L [facility] Urea nitrogen [Mass/Vol] 33 mg/dL High 6 - 23 mg/dL [facility] Albumin BCP dye [Mass/Vol] 3.3 g/dL Low 3.4-5.[address] [facility] Comment on above: Performed By: #### 2 4323-8 #### ERICA Tam ([id number]) [facility] ([facility]) [address] [place] [address] ALP [Catalytic activity/Vol] 58 U/L Normal 33-[address] [facility] Comment on above: Performed By: #### 2 4323-8 #### ERICA Tam ([id number]) [facility] ([facility]) [address] [place] [address] ALT With P-5'-P [Catalytic activity/Vol] 15 U/L Normal 10-[address] [facility] Comment on above: Result Comment: Criselda ents treated with Sulfasalazine may generate falsely decreased results for ALT. Performed By: #### 2 4323-8 #### ERICA Tam ([id number]) [facility] ([facility]) [address] [place] [address] Anion gap [Moles/Vol] 13 mmol/L Normal 10-20 [facility] Comment on above: Performed By: #### 2 4323-8 #### ERICA Tam ([id number]) [facility] ([facility]) [address] [place] [address] AST With P-5'-P [Catalytic activity/Vol] 14 U/L Normal 9-[address] [facility] Comment on above: Result Comment: MILD HEMOLYSIS DETECTED. The result may be falsely elevated due to hemolysis or other interferents. Clinical correlation is recommended. Repeat testing may be considered. Performed By: #### 2 4323-8 #### ERICA Tam ([id number]) [facility] ([facility]) [address] [place] [address] Bilirubin [Mass/Vol] 0.4 mg/dL Normal 0.0-1.2 [facility] Comment on above: Performed By: #### 2 4323-8 #### ERICA Tam ([id number]) [facility] ([facility]) [address] [place] [address] Calcium [Mass/Vol] 8.3 mg/dL Low 8.6-10.6 [facility] Comment on above: Performed By: #### 2 4323-8 #### ERICA Tam ([id number]) [facility] ([facility]) [address] [place] [address] Chloride [Moles/Vol] 102 mmol/L Normal 98-107 [facility] Comment on above: Performed By: #### 2 4323-8 #### ERICA HIGGINSER L ([id number]) [facility] ([facility]) [address] [place] [address] CO2 [Moles/Vol] 26 mmol/L Normal 21-[address] [facility] Comment on above: Performed By: #### 2 4323-8 #### ERICA MCDONALD L ([id number]) [facility] ([facility]) [address] [place] [address] 27482 Creatinine [Mass/Vol] 1.64 mg/dL High 0.50-1.30 [facility] Comment on above: Performed By: #### 2 4323-8 #### ERICA MCDONALD L ([id number]) [facility] ([facility]) [id number] [place] [address] 95482 Glomerular filtration rate/1.73 sq M.predicted 45 mL/min/1.73m*2 Low >[address] [facility] Comment on above: Result Comment: Calc ulations of estimated GFR are performed using the 2020 CKD-EPI Study Refit equation without the race variable for the IDMS-Traceable creatinine methods. https://jasn.asnjournals.org/content//ASN.2020 096188 Performed By: #### 2 4323-8 #### ERICA MCDONALD L ([id number]) [facility] ([facility]) [address] [place] [address] Glucose [Mass/Vol] 173 mg/dL High 74-99 [facility] Comment on above: Performed By: #### 2 4323-8 #### ERICA MCDONALD L ([id number]) [facility] ([facility]) [id number] [place] [address] 39020 Potassium [Moles/Vol] 4.3 mmol/L Normal 3.5-5.3 [facility] Comment on above: Result Comment: MILD HEMOLYSIS DETECTED. The result may be falsely elevated due to hemolysis or other interferents. Clinical correlation is recommended. Repeat testing may be considered. Performed By: #### 2 4323-8 #### ERICA Tam ([id number]) [facility] ([facility]) [address] [place] [address] 85075 Protein [Mass/Vol] 5.6 g/dL Low 6.4-8.2 [facility] Comment on above: Performed By: #### 2 4323-8 #### ERICA Tam ([id number]) [facility] ([facility]) [address] [place] [address] 88208 Sodium [Moles/Vol] 137 mmol/L Normal 136-145 [facility] Comment on above: Performed By: #### 2 4323-8 #### ERICA Tam ([id number]) [facility] ([facility]) [address] [place] [address] 41826 Urea nitrogen [Mass/Vol] 33 mg/dL High 6-[address] [facility] Comment on above: Performed By: #### 2 4323-8 #### ERICA Tam ([id number]) [facility] ([facility]) [address] [place] [address] 89106 ECG 12 leadOrdered By: Bertha Kennedy on 10-16-2023 Atrial Rate 85 BPM [facility] Work Phone: [phone] P [place] 40 degrees [facility] Work Phone: [phone] P Offset 185 ms [facility] Work Phone: [phone] P Onset 124 ms [facility] Work Phone: [phone] NM Interval 196 ms [facility] Work Phone: [phone] Q Onset 222 ms [facility] Work Phone: [phone] QRS Count 14 beats [facility] Work Phone: [phone] QRS Duration 100 ms [facility] Work Phone: [phone] QT Interval 392 ms [facility] Work Phone: [phone] QTC Calculation(Petezett) 466 ms [facility] Work Phone: QTC Fredericia 440 ms [facility] Work Phone: [phone] R [place] 54 degrees [facility] Work Phone: [phone] T [place] 51 degrees [facility] Work Phone: T Offset 418 ms [facility] Work Phone: Ventricular Rate 85 BPM [facility] Work Phone: [phone] [facility] Work Phone: [phone] ECG 12 leadon 10-16-2023 Normal sinus rhythm Prolonged QT Abnormal ECG No previous ECGs available Confirmed by Mark Kennedy ([id number]) on 10/16/2023 5:14:12 PM MUSE Mark Kennedy MD - 10/16/2023 Normal sinus rhythm Prolonged QT Abnormal ECG No previous ECGs available Confirmed by Mark Kennedy ([id number]) on 10/16/2023 5:14:12 PM [facility] Work Phone: ECG 12-LEADon 10-16-2023 ECG 12-LEAD Ventricular Rate 85 Atrial Rate 85 P-R Interval 196 QRS Duration 100 Q-T Interval 392 QTC Calculation(Bazett) 466 P [place] 40 R [place] 54 T [place] 51 QRS Count 14 Q Onset 222 P Onset 124 P Offset 185 T Offset 418 QTC Fredericia 440 Diagnosis Normal sinus rhythm Prolonged QT Abnormal ECG No previous ECGs available Confirmed by Mark Kennedy ([id number]) on 10/16/2023 5:14:12 PM Normal [facility] Extra Urine Fitch Tubeon 09-20 Extra Tube Hold for add-ons. [facility] Comment on above: Auto resulted. [facility] Ferritinon 10-16-2023 Ferritin [Mass/Vol] 184 ng/mL 20 - 300 ng/mL [facility] Ferritin [Mass/Vol] 184 ng/mL Normal 20-300 [facility] Comment on above: Performed By: #### 5 902-2 #### ERICA Tam ([id number]) [facility] ([facility]) [address] [place] [address] Ferritin [Mass/Vol]on 2023 Interpretation and review of laboratory results Normal [facility] Folateon 10-16-2023 Folate [Mass/Vol] 10.0 ng/mL 5.0 - PINF ng/mL [facility] Folate [Mass/Vol] 10.0 ng/mL Normal >5.0 [facility] Comment on above: Order Comment: If val monroe has not had PT + INR in the last 24 hours. Nursing to release order. Performed By: #### 5 902-2 #### ERICA Tam ([id number]) [facility] ([facility]) [address] [place] [address] Folate [Mass/Vol]on 10-16-19 24 Low <3.4 Borderline 3.4-5.0 Normal >5.0 Patients receiving more than 5 mg/day of biotin may have interference in test results. A sample should be taken no sooner than eight hours after previous dose. Contact the testing laboratory for additional information. [facility] Free T4 [Mass/Vol]on 024 Thyroxine Free testi ng is performed using different testing methodology at [facility] than at other [facility]. Direct result comparisons should only be made within the same method. [facility] Gas and Carbon monoxide pane l (BldA)on 10-16-2023 Base excess Calc (Bld) [Moles/Vol] -0.5000 mmol/L -2.0 - 3.0 mmol/L [facility] Carboxyhemoglobin (BldA) [Mass fraction] 3.1 % [facility] Comment on above: Ref Values Non-Smokers 0.5-1.5% Smokers 0.5-10.0% CO2 (Bld) [Partial pressure] 39 mm[Hg] [facility] Deoxyhemoglobin (BldA) [Mass fraction] 4.8 % 0.0 - 5.0 % [facility] HCO3 (Bld) [Moles/Vol] 24.2 mmol/L 22.0 - 26.0 mmol/L [facility] Hemoglobin (Bld) [Mass/Vol] 11.3 g/dL Low 13.5 - 17.5 g/dL [facility] Interpretation and review of laboratory results Abnormal [facility] Methemoglobin (BldA) [Mass fraction] 0.0 % 0.0 - 1.5 % [facility] Oxygen (Bld) [Partial pressure] 67 mm[Hg] Low [facility] Oxyhemoglobin (BldA) [Mass fraction] 92.2 % Low 94.0 - 98.0 % [facility] pH (Bld) 7.40 [pH] 7.38 - 7.[address] [facility] Base excess Calc (Bld) [Moles/Vol] -0.5000 mmol/L Normal -2.0-3.[address] [facility] Comment on above: Performed By: #### 1 4979-9 #### ERICA Tam ([id number]) [facility] ([facility]) [address] [place] [address] 12596 Carboxyhemoglobin (BldA) [Mass fraction] 3.1 % Normal [facility] Comment on above: Result Comment: Ref Values Non-Smokers 0.5-1.5% Smokers 0.5-10.0% Performed By: #### 1 4979-9 #### ERICA Tam ([id number]) [facility] ([facility]) [address] [place] [address] 22482 CO2 (Bld) [Partial pressure] 39 mm Hg Normal 38-[address] [facility] Comment on above: Performed By: #### 1 4979-9 #### ERICA Tam ([id number]) [facility] ([facility]) [address] [place] [address] 95876 Deoxyhemoglobin (BldA) [Mass fraction] 4.8 % Normal 0.0-5.[address] [facility] Comment on above: Performed By: #### 1 4979-9 #### ERICA Tam ([id number]) [facility] ([facility]) [address] [place] [address] 25417 HCO3 (Bld) [Moles/Vol] 24.2 mmol/L Normal 22.0-26.0 [facility] Comment on above: Performed By: #### 1 4979-9 #### ERICA Tam ([id number]) [facility] ([facility]) [address] [place] [address] 59012 Hemoglobin (Bld) [Mass/Vol] 11.3 g/dL Low 13.5-17.[address] [facility] Comment on above: Performed By: #### 1 4979-9 #### ERICA Tam ([id number]) [facility] ([facility]) [address] [place] [address] 64256 Methemoglobin (BldA) [Mass fraction] 0.0 % Normal 0.0-1.[address] [facility] Comment on above: Performed By: #### 1 4979-9 #### ERICA Tam ([id number]) [facility] ([facility]) [address] [place] [address] 05804 Oxygen (Bld) [Partial pressure] 67 mm Hg Low 85-[address] [facility] Comment on above: Performed By: #### 1 4979-9 #### ERICA Tam ([id number]) [facility] ([facility]) [address] [place] [address] 17434 Oxyhemoglobin (BldA) [Mass fraction] 92.2 % Low 94.0-98.[address] [facility] Comment on above: Performed By: #### 1 4979-9 #### ERICA Tam ([id number]) [facility] ([facility]) [address] [place] [address] 05700 pH (Bld) 7.40 [pH] Normal 7.38-7.[address] [facility] Comment on above: Performed By: #### 1 4979-9 #### ERICA Tam ([id number]) [facility] ([facility]) [address] [place] [address] 46389 Glucose Test strip manual (B ld) [Mass/Vol]on 10-16-2023 Glucose [Mass/Vol] 151 mg/dL High 74 - 99 mg/dL [facility] Interpretation and review of laboratory results Abnormal [facility] Glucose [Mass/Vol] 151 mg/dL High 74-99 [facility] Comment on above: Performed By: #### 1 4979-9 #### ERICA Tam ([id number]) [facility] ([facility]) [address] [place] [address] 85667 Glucose [Mass/Vol] 261 mg/dL High 74 - 99 mg/dL [facility] Interpretation and review of laboratory results Abnormal [facility] Glucose [Mass/Vol] 261 mg/dL High 74-99 [facility] Comment on above: Performed By: #### 1 4979-9 #### ERICA Tam ([id number]) [facility] ([facility]) [address] [place] [address] 48025 Glucose [Mass/Vol] 170 mg/dL High 74 - 99 mg/dL [facility] Interpretation and review of laboratory results Abnormal [facility] Glucose [Mass/Vol] 170 mg/dL High 74-99 [facility] Comment on above: Performed By: #### 5 902-2 #### ERICA Tam ([id number]) [facility] ([facility]) [address] [place] [address] 10597 HbA1c (Bld) [Mass fraction]o n 10-16-2023 Average glucose Estimated from glycated hemoglobin (Bld) [Mass/Vol] 148 mg/dL Not Established [facility] Interpretation and review of laboratory results Abnormal [facility] Diagnosis of Diabetes-Adults Non-Diabetic: < or = 5.6% Increased risk for developing diabetes: 5.7-6.4% Diagnostic of diabetes: > or = 6.5% [facility] Average glucose Estimated from glycated hemoglobin (Bld) [Mass/Vol] 148 mg/dL Normal Not Established [facility] Comment on above: Order Comment: If val monroe has not had PT + INR in the last 24 hours. Nursing to release order. Performed By: #### 5 902-2 #### ERICA Tam ([id number]) [facility] ([facility]) [address] [place] [address] Hemoglobin A1con 10-16-2023 HbA1c (Bld) [Mass fraction] 6.8 % High see below [facility] Hemoglobin A1c/Hemoglobin.to guero 10-16-2023 HbA1c (Bld) [Mass fraction] 6.8 % High see below [facility] Comment on above: Order Comment: If pa mabel has not had PT + INR in the last 24 hours. Nursing to release order. Performed By: #### 5 902-2 #### ERICA Tam ([id number]) [facility] ([facility]) [address] [place] [address] Heparin Assay, UFHon 024 Heparin unfractionated Chromogenic method Qn (PPP) 0.2 See Comment Below for Therapeutic Ranges IU/mL [facility] Heparin unfractionated Chromogenic method Qn (PPP) 0.1 See Comment Below for Therapeutic Ranges IU/mL [facility] Heparin unfractionated Chromogenic method Qn (PPP) 0.1 See Comment Below for Therapeutic Ranges IU/mL [facility] Heparin unfractionated Chrom ogenic method Qn (PPP)on 10-16-2023 Interpretation and review of laboratory results Normal [facility] The therapeutic reference range for UFH may be either 0.3-0.6 IU/mL or 0.3-0.7 IU/mL based on the clinical setting for anticoagulant therapy and the associated nomogram used. For Heparin dosing guidelines based on clinical scenario and Heparin Assay results, please refer to local Pharmacy and the [facility] Guidelines for Anticoagulation Therapy available on the [facility] intranet at: [email or web address]_ [email or web address] .[email or web address] [facility] Interpretation and review of laboratory results Normal [facility] The therapeutic reference range for UFH may be either 0.3-0.6 IU/mL or 0.3-0.7 IU/mL based on the clinical setting for anticoagulant therapy and the associated nomogram used. For Heparin dosing guidelines based on clinical scenario and Heparin Assay results, please refer to local Pharmacy and the [facility] Guidelines for Anticoagulation Therapy available on the [facility] intranet at: [email or web address]_ Guidelines_for_Anticoagu .aspx [facility] Interpretation and review of laboratory results Normal [facility] The therapeutic reference range for UFH may be either 0.3-0.6 IU/mL or 0.3-0.7 IU/mL based on the clinical setting for anticoagulant therapy and the associated nomogram used. For Heparin dosing guidelines based on clinical scenario and Heparin Assay results, please refer to local Pharmacy and the [facility] Guidelines for Anticoagulation Therapy available on the [facility] intranet at: [email or web address]_ Guidelines_for_Anticoagu .aspx [facility] Heparin.unfractionatedon Heparin unfractionated Chromogenic method Qn (PPP) 0.3 IU/mL Normal See Comment Below for Therapeutic Ranges [facility] Comment on above: Order Comment: Prior to initiating heparin if not obtained in prior 48 hours. Nursing to release order. The APTT is no longer used for monitoring Unfractionated Heparin Therapy. For monitoring Heparin Therapy, use the Heparin Assay. Performed By: #### 1 4979-9 #### ERICA Tam ([id number]) [facility] ([facility]) [address] [place] [address] Heparin unfractionated Chromogenic method Qn (PPP) 0.2 IU/mL Normal See Comment Below for Therapeutic Ranges [facility] Comment on above: Order Comment: Prior to initiating heparin if not obtained in prior 48 hours. Nursing to release order. The APTT is no longer used for monitoring Unfractionated Heparin Therapy. For monitoring Heparin Therapy, use the Heparin Assay. Performed By: #### 1 4979-9 #### ERICA Tam ([id number]) [facility] ([facility]) [address] [place] [address] Heparin unfractionated Chromogenic method Qn (PPP) 0.1 IU/mL Normal See Comment Below for Therapeutic Ranges [facility] Comment on above: Order Comment: If val monroe has not had PT + INR in the last 24 hours. Nursing to release order. Performed By: #### 5 902-2 #### ERICA Tam ([id number]) [facility] ([facility]) [address] [place], [place] [address] Heparin unfractionated Chromogenic method Qn (PPP) 0.1 IU/mL Normal See Comment Below for Therapeutic Ranges [facility] Comment on above: Order Comment: Obtai [...] please refer to local Pharmacy and the [facility] Guidelines for Anticoagulation Therapy available on the [facility] intranet at: [email or web address] Performed By: #### 3 274-8 #### ERICA Tam ([id number]) [facility] ([facility]) [address] [place] [address] Iron and Iron binding capaci ty panelon 10-16-2023 Interpretation and review of laboratory results Abnormal [facility] Iron [Mass/Vol] 33 ug/dL Low 35 - 150 ug/dL [facility] Comment on above: MILD HEMOLYSIS DETEC ZAID. The result may be falsely elevated due to hemolysis or other interferents. Clinical correlation is recommended. Repeat testing may be considered. Iron binding capacity [Mass/Vol] 285 ug/dL 240 - 445 ug/dL [facility] Iron binding capacity.unsaturated [Mass/Vol] 252 ug/dL 110 - 370 ug/dL [facility] Iron saturation [Mass fraction] 12 % Low 25 - 45 % [facility] Iron [Mass/Vol] 33 ug/dL Low 35-[address] [facility] Comment on above: Result Comment: MILD HEMOLYSIS DETECTED. The result may be falsely elevated due to hemolysis or other interferents. Clinical correlation is recommended. Repeat testing may be considered. Performed By: #### 5 902-2 #### ERICA Tam ([id number]) [facility] ([facility]) [id number] [place] [address] Iron binding capacity [Mass/Vol] 285 ug/dL Normal 240-[address] [facility] Comment on above: Performed By: #### 5 902-2 #### ERICA Tam ([id number]) [facility] ([facility]) [address] [place] [address] 18199 Iron binding capacity.unsaturated [Mass/Vol] 252 ug/dL Normal 110-[address] [facility] Comment on above: Performed By: #### 5 902-2 #### ERICA Tam ([id number]) [facility] ([facility]) [address] [place] [address]59 Iron saturation [Mass fraction] 12 % Low 25-[address] [facility] Comment on above: Performed By: #### 5 902-2 #### ERICA Tam ([id number]) [facility] ([facility]) [address] [place] [address] 73060 LIPID PANEL NON-FASTINGon Cholesterol [Mass/Vol] 114 mg/dL Normal 0-199 [facility] Comment on above: Result Comment: [...] By: #### L IPIN #### ERICA Tam ([id number]) [facility] ([facility]) [address] [place] [address]32 Cholesterol in HDL [Mass/Vol] 25.8 mg/dL Normal [facility] Comment on above: Result Comment: Age Very Low Low Normal High 0-19 Y < 35 < 40 40-45 ---- 20-24 Y ---- < 40 >45 ---- >24 Y ---- < 40 40-60 >60 Performed By: #### L IPIN #### ERICA Tam ([id number]) [facility] ([facility]) [address] [place] [address] CHOLESTEROL/HDL RATIO 4.4 Normal [facility] Comment on above: Result Comment: Ref Values Desirable < 3.4 High Risk > 5.0 Performed By: #### L IPIN #### ERICA Tam ([id number]) [facility] ([facility]) [address] [place] [address] 63777 NON-HDL CHOLESTEROL 88 mg/dL Normal 0-149 [facility] Comment on above: Result Comment: Age Desiable Borderline High High Very High 0-19 Y 0 - 119 120 - 144 >/= 145 >/= 160 20-24 Y 0 - 149 150 - 189 >/= 190 ---- >24 Y 30 MG/DL ABOVE LDL CHOLESTEROL GOAL Performed By: #### L IPIN #### ERICA Tam ([id number]) [facility] ([facility]) [id number] [place] [address] 93078 Lipid Panel Non-Fastingon Cholesterol [Mass/Vol] 114 mg/dL 0 - 1 99 mg/dL [facility] Comment on above: Age Desirable Borderline [...] 128(S5).Adult guidelines reference: NCEP ATPIII Guidelines,JUDITH 2001, [id number]:[id number] Venipuncture immediately after or during the administration of Metamizole may lead to falsely low results. Testing should be performed immediately prior to Metamizole dosing. Cholesterol in HDL [Mass/Vol] 25.8 mg/dL [facility] Comment on above: Age Very Low Low Normal High 0-19 Y < 35 < 40 40-45 ---- 20-24 Y ---- < 40 >45 ---- >24 Y ---- < 40 40-60 >60 Cholesterol.total/Cele sterol in HDL [Mass ratio] 4.4 {ratio} [facility] Comment on above: Ref Values Desirable < 3.4 High Risk > 5.0 Non-HDL Cholesterol 88 mg/dL 0 - 149 mg/dL [facility] Comment on above: Age Desiable Borderline High High Very High 0-19 Y 0 - 119 120 - 144 >/= 145 >/= 160 20-24 Y 0 - 149 150 - 189 >/= 190 ---- >24 Y 30 MG/DL ABOVE LDL CHOLESTEROL GOAL [facility] Magnesiumon 10-16-2023 Magnesium [Mass/Vol] 1.84 mg/dL 1.60 - 2.40 mg/dL [facility] Magnesium [Mass/Vol] 1.84 mg/dL Normal 1.60-2.40 [facility] Comment on above: Performed By: #### 1 4979-9 #### ERICA Tam ([id number]) [facility] ([facility]) [address] [place] [address] Magnesium [Mass/Vol]on 10-15 Interpretation and review of laboratory results Normal [facility] Natriuretic peptide B [Mass/ Vol]on 10-16-2023 Interpretation and review of laboratory results Normal [facility] Natriuretic peptide B (Bld) [Mass/Vol] 88 pg/mL 0 - 99 pg/mL [facility] <100 pg/mL - Heart failure unlikely [...] contact their local laboratory for further information. [facility] Natriuretic peptide B (Bld) [Mass/Vol] 88 pg/mL Normal 0-[address] [facility] Comment on above: Order Comment: If val monroe has not had PT + INR in the last 24 hours. Nursing to release order. Performed By: #### 5 902-2 #### ERICA Tam ([id number]) [facility] ([facility]) [address] [place] [address]256 No Panel Informationon 10-15 [facility] Interpretation and review of laboratory results Normal [facility] Interpretation and review of laboratory results Normal [facility] PT Coag (PPP) [Time]on 10-15 INR Coag (PPP) [Relative time] 1.1 {INR} 0.9 - 1.1 [facility] INR Coag (PPP) [Relative time] 1.1 Normal 0.9-1.[address] [facility] Comment on above: Order Comment: If val monroe has not had PT + INR in the last 24 hours. Nursing to release order. Performed By: #### 5 902-2 #### ERICA Tam ([id number]) [facility] ([facility]) [address] [place] [address] 79255 Platelets Auto (Bld) [#/Vol] on 10-16-2023 Interpretation and review of laboratory results Normal [facility] Platelets (Bld) [#/Vol] 276 10*3/uL [facility] Platelets (Bld) [#/Vol] 276 x10*3/uL Normal 150-[address] [facility] Comment on above: Order Comment: Basel ine platelet count before any heparin given. May discontinue if platelet count already obtained today, or if heparin already administered. Performed By: #### 7 77-3 #### ERICA Tam ([id number]) [facility] ([facility]) [address] [place] [address] 51890 Protime-INRon 10-16-2023 PT Coag (PPP) [Time] 12.[address] [facility] Pulmonary function testingOr dered By: Samara Huston on 10-16-2023 FEV1 - Pre 1.62 [facility] Work Phone: FEV1 - Predicted 3.09 [facility] Work Phone: FVC - PRE 1.80 [facility] Work Phone: FVC Predicted 4.08 [facility] Work Phone: [facility] Work Phone: Pulmonary function testingon 10-16-2023 Preserved ratio impa ired spirometry (PRISm), which could be due to restriction or a non-specific pattern. Recommend lung volumes if clinically indicated. [facility] Samara Murdock MD - 10/18/2023 Preserved ratio impaired spirometry (PRISm), which could be due to restriction or a non-specific pattern. Recommend lung volumes if clinically indicated. [facility] Work Phone: Renal function 2000 panelon 10-16-2023 Albumin BCP dye [Mass/Vol] 3.1 g/dL Low 3.4 - 5.0 g/dL [facility] Anion gap [Moles/Vol] 15 mmol/L 10 - 2 0 mmol/L [facility] Calcium [Mass/Vol] 8.2 mg/dL Low 8.6 - 10. 6 mg/dL [facility] Chloride [Moles/Vol] 103 mmol/L 98 - 10 7 mmol/L [facility] CO2 [Moles/Vol] 24 mmol/L 21 - 32 mmol/L [facility] Creatinine [Mass/Vol] 1.52 mg/dL High 0.50 - 1.30 mg/dL [facility] GFR/1.73 sq M.predicted among non-blacks MDRD (S/P/Bld) [Vol rate/Area] 49 mL/min/{1.73_m2} Low - PINF [facility] Comment on above: Calculations of mercedez mated GFR are performed using the 2020 CKD-EPI Study Refit equation without the race variable for the IDMS-Traceable creatinine methods. https://jasn.asnjournals.org/content/early/ASN.2020 373627 Glucose [Mass/Vol] 229 mg/dL High 74 - 99 mg/dL [facility] Interpretation and review of laboratory results Abnormal [facility] Phosphate [Mass/Vol] 3.1 mg/dL 2.5 - 4 .9 mg/dL [facility] Comment on above: The performance cecilia acteristics of phosphorus testing in heparinized plasma have been validated by the individual laboratory site where testing is performed. Testing on heparinized plasma is not approved by the FDA; however, such approval is not necessary. Potassium [Moles/Vol] 4.1 mmol/L 3.5 - 5.3 mmol/L [facility] Sodium [Moles/Vol] 138 mmol/L 136 - 145 mmol/L [facility] Urea nitrogen [Mass/Vol] 32 mg/dL High 6 - 23 mg/dL [facility] Albumin BCP dye [Mass/Vol] 3.1 g/dL Low 3.4-5.[address] [facility] Comment on above: Performed By: #### 1 4979-9 #### ERICA Tam ([id number]) [facility] ([facility]) [address] [place] [address] 28023 Anion gap [Moles/Vol] 15 mmol/L Normal 10-20 [facility] Comment on above: Performed By: #### 1 4979-9 #### ERICA MCDONALD L ([id number]) [facility] ([facility]) [address] [place] [address] 15629 Calcium [Mass/Vol] 8.2 mg/dL Low 8.6-10.6 [facility] Comment on above: Performed By: #### 1 4979-9 #### ERICA SCHMOTZER L ([id number]) [facility] ([facility]) [address] [place] [address] 95700 Chloride [Moles/Vol] 103 mmol/L Normal 98-107 [facility] Comment on above: Performed By: #### 1 4979-9 #### ERICA RESTREPOMOTZER L ([id number]) [facility] ([facility]) [id number] [place] [address] 70482 CO2 [Moles/Vol] 24 mmol/L Normal 21-[address] [facility] Comment on above: Performed By: #### 1 4979-9 #### ERICA Tam ([id number]) [facility] ([facility]) [address] [place] [address] Creatinine [Mass/Vol] 1.52 mg/dL High 0.50-1.30 [facility] Comment on above: Performed By: #### 1 4979-9 #### ERICA Tam ([id number]) [facility] ([facility]) [id number] [place] [address] 89229 Glomerular filtration rate/1.73 sq M.predicted 49 mL/min/1.73m*2 Low >[address] [facility] Comment on above: Result Comment: Calc ulations of estimated GFR are performed using the 2020 CKD-EPI Study Refit equation without the race variable for the IDMS-Traceable creatinine methods. https://jasn.asnjournals.org/content/early//ASN.2020 374568 Performed By: #### 1 4979-9 #### ERICA Tam ([id number]) [facility] ([facility]) [address] [place] [address] 74418 Glucose [Mass/Vol] 229 mg/dL High 74-99 [facility] Comment on above: Performed By: #### 1 4979-9 #### ERICA Tam ([id number]) [facility] ([facility]) [address] [place] [address] 81921 Phosphate [Mass/Vol] 3.1 mg/dL Normal 2.5-4.9 [facility] Comment on above: Result Comment: The performance characteristics of phosphorus testing in heparinized plasma have been validated by the individual laboratory site where testing is performed. Testing on heparinized plasma is not approved by the FDA; however, such approval is not necessary. Performed By: #### 1 4979-9 #### ERICA Tam ([id number]) [facility] ([facility]) [id number] [place] [address] 49164 Potassium [Moles/Vol] 4.1 mmol/L Normal 3.5-5.3 [facility] Comment on above: Performed By: #### 1 4979-9 #### ERICA Tam ([id number]) [facility] ([facility]) [address] [place] [address] 16071 Sodium [Moles/Vol] 138 mmol/L Normal 136-145 [facility] Comment on above: Performed By: #### 1 4979-9 #### ERICA Tam ([id number]) [facility] ([facility]) [address] [place] [address] 39241 Urea nitrogen [Mass/Vol] 32 mg/dL High 6-[address] [facility] Comment on above: Performed By: #### 1 4979-9 #### ERICA Tam ([id number]) [facility] ([facility]) [address] [place], [place] [address] Staphylococcus aureus.methic illin resistant isolateon 10-16-2023 MRSA isol Org specific cx Ql (Nose) Test: Staphylococcus aureus/MRSA colonization, Culture Specimen Source: Anterior Nares Specimen Type: Swab Specimen Date: 10/16/2023 1023 Result Date: 10/17/2023 1257 Result Status: Final result Abnormal: No Resulting Lab: [facility] [address] [place], [place] [id number] CULTURE No Staphylococcus aureus isolated Normal [facility] Comment on above: Performed By: #### 2 4323-8 #### ERICA Tam ([id number]) [facility] ([facility]) [address] [place] [address] 47492 TSH WITH REFLEX TO FREE T4 I F ABNORMALon 10-16-2023 TSH Qn 6.30 m[IU]/L High 0.44-3.[address] [facility] Comment on above: Order Comment: TSH t esting is performed using different testing methodology at [facility] than at other [facility]. Direct result comparisons should only be made within the same method. Performed By: #### T HYDS #### ERICA Tam ([id number]) [facility] ([facility]) [address] [place] [phone] TSH with reflex to Free T4 i f abnormalon 10-16-2023 Interpretation and review of laboratory results Abnormal [facility] TSH Qn 6.30 m[IU]/L High [facility] TSH testing is perfo rmed using different testing methodology at [facility] than at other [facility]. Direct result comparisons should only be made within the same method. [facility] Thyroxine, Freeon 10-16-2023 Free T4 [Mass/Vol] 1.20 ng/dL 0.78 - 1. 48 ng/dL [facility] Thyroxine.freeon 10-16-2023 Free T4 [Mass/Vol] 1.20 ng/dL Normal 0.78-1.48 [facility] Comment on above: Order Comment: If val mabel has not had PT + INR in the last 24 hours. Nursing to release order. Performed By: #### 5 902-2 #### ERICA Tam ([id number]) [facility] ([facility]) [address] [place] [phone] Tropinin I.cardiac panel Hig h sensitivity methodon 10-16-2023 Interpretation and review of laboratory results Abnormal [facility] Less than 99th percentile of normal [...] performed using a different testing methodology at [facility] than at other [facility]. Direct result comparisons should only be made within the same method. [facility] Troponin I, High Sensitivity on 10-16-2023 Tropinin I.cardiac panel High sensitivity method 916 ng/L Critically high 0 - 53 ng/L [facility] Troponin I.cardiac panelon 0 10-16-2023 Tropinin I.cardiac panel High sensitivity method 916 ng/L Critically high 0-[address] [facility] Comment on above: Order Comment: If val mnoroe has not had PT + INR in the last 24 hours. Nursing to release order. Performed By: #### 5 902-2 #### ERICA Tam ([id number]) [facility] ([facility]) [id number] [place] [address] Urinalysis complete W Reflex Culture panel (U)on 10-16-2023 Appearance (U) Clear Clear [facility] Bilirubin (U) [Mass/Vol] Negative NEGATIVE [facility] Color (U) Light-Yellow Light-Yellow , Yellow, Dark-Yellow [facility] Glucose Auto test strip (U) [Mass/Vol] 50 (TRACE) Abnormal Normal mg/dL [facility] Interpretation and review of laboratory results Abnormal [facility] Ketones (U) [Mass/Vol] Negative NEGAT LE mg/dL [facility] Leukocyte esterase Auto test strip Ql (U) Negative NEGATIVE [facility] Mucus Auto (Urine sed) [#/Area] FEW Reference range not established. /LPF [facility] Nitrite Auto test strip Ql (U) Negative NEGATIVE [facility] pH (U) 5.0 [pH] 5.0, 5.5, 6.0, 6.5, 7.0, 7.5, 8.0 [facility] Protein (U) [Mass/Vol] 10 (TRACE) NEGAT LE, 10 (TRACE), 20 (TRACE) mg/dL [facility] RBC (U) [#/Vol] Negative NEGATIVE [facility] RBC Auto (Urine sed) [#/Area] NONE NONE, 1-2, 3-5 /HPF [facility] Specific gravity (U) [Rel density] 1.026 1.005 - 1.035 [facility] Urobilinogen (U) [Mass/Vol] Normal Normal mg/dL [facility] WBC Auto (Urine sed) [#/Area] 1-5 1-5, NONE /HPF [facility] Appearance (U) Clear Normal Clear [facility] Comment on above: Performed By: #### 5 8077-9 #### ERICA Tam ([id number]) [facility] ([facility]) [address] [place] [address] 80918 Bilirubin (U) [Mass/Vol] Negative Normal NEGATIVE [facility] Comment on above: Performed By: #### 5 8077-9 #### ERICA Tam ([id number]) [facility] ([facility]) [address] [place] [address] 83982 Color (U) Light-Yellow Normal Light-Yellow , Yellow, Dark-Yellow [facility] Comment on above: Performed By: #### 5 8077-9 #### ERICA Tam ([id number]) [facility] ([facility]) [address] [place] [address] 51684 Glucose Auto test strip (U) [Mass/Vol] 50 (TRACE) Abnormal Normal [facility] Comment on above: Performed By: #### 5 8077-9 #### ERICA Tam ([id number]) [facility] ([facility]) [address] [place] [address] 82427 Ketones (U) [Mass/Vol] Negative Normal [facility]: Performed By: #### 5 8077-9 #### ERICA Tam ([id number]) [facility] ([facility]) [address] [place] [address] 24093 Leukocyte esterase Auto test strip Ql (U) Negative Normal NEGATIVE [facility] Comment on above: Performed By: #### 5 8077-9 #### ERICA Tam ([id number]) [facility] ([facility]) [address] [place] [address] 49199 Mucus Auto (Urine sed) [#/Area] FEW Normal Reference range not established. [facility] Comment on above: Performed By: #### 5 8077-9 #### ERICA Tam ([id number]) [facility] ([facility]) [address] [place] [address] 52700 Nitrite Auto test strip Ql (U) Negative Normal NEGATIVE [facility] Comment on above: Performed By: #### 5 8077-9 #### ERICA Tam ([id number]) [facility] ([facility]) [address] [place] [address] 52711 pH (U) 5.0 [pH] Normal 5.0, 5.5, 6.0, 6.5, 7.0, 7.5, 8.[address] [facility] Comment on above: Performed By: #### 5 8077-9 #### ERICA Tam ([id number]) [facility] ([facility]) [address] [place] [address] 20324 Protein (U) [Mass/Vol] 10 (TRACE) Normal NEGAT LE, 10 (TRACE), 20 (TRACE) [facility] Comment on above: Performed By: #### 5 8077-9 #### ERICA Tam ([id number]) [facility] ([facility]) [address] [place] [address] 67462 RBC (U) [#/Vol] Negative Normal NEGATIVE [facility] Comment on above: Performed By: #### 5 8077-9 #### ERICA Tam ([id number]) [facility] ([facility]) [address] [place] [address] 68710 RBC Auto (Urine sed) [#/Area] NONE Normal NONE, 1-2, 3-[address] [facility] Comment on above: Performed By: #### 5 8077-9 #### ERICA Tam ([id number]) [facility] ([facility]) [address] [place] [address] 09065 Specific gravity (U) [Rel density] 1.026 Normal 1.005-1.[address] [facility] Comment on above: Performed By: #### 5 8077-9 #### ERICA Tam ([id number]) [facility] ([facility]) [address] [place] [address] 05898 Urobilinogen (U) [Mass/Vol] Normal Normal Normal [facility] Comment on above: Performed By: #### 5 8077-9 #### ERICA Tam ([id number]) [facility] ([facility]) [address] [place], [place] [address] WBC Auto (Urine sed) [#/Area] 1-5 Normal 1-5, NONE [facility] Comment on above: Performed By: #### 5 [id number] #### ERICA Tam ([id number]) [facility] ([facility]) [address] [place] [address] Vitamin B12on 10-16-2023 Cobalamin (Vitamin B12) [Mass/Vol] 201 pg/mL Low 211 - 911 pg/mL [facility] XR CHEST 2 VIEWSon 4 XR CHEST 2 VIEWS Interpreted By: Rex Ballesteros, STUDY: XR CHEST 2 VIEWS; 10/16/2023 2:01 pm INDICATION: Signs/Symptoms:CABG evaluation. COMPARISON: None. ACCESSION NUMBER(S): [id number] ORDERING CLINICIAN: CATIA PATTON FINDINGS: CARDIOMEDIASTINAL SILHOUETTE: Cardiomegaly versus pericardial effusion. Right hilar calcifications. LUNGS: Low lung volumes with perihilar bibasilar atelectasis/effusions. ABDOMEN: No remarkable upper abdominal findings. BONES: No acute osseous changes. IMPRESSION: 1. Cardiomegaly with pulmonary edema and correlate with cardiac and fluid status. Signed by: Rex Ballesteros 10/18/2023 7:12 AM Dictation workstation: [id number] Normal [facility] XR Chest 2 Viewson 4 Radiology Study observation (narrative) [facility] Work Phone: aPTT - baselineon 10-16-2023 aPTT Coag (PPP) [Time] 30 s [facility] aPTT Coag (PPP) [Time]on The APTT is no longe r used for monitoring Unfractionated Heparin Therapy. For monitoring Heparin Therapy, use the Heparin Assay. [facility] Activated partial thrombopla stin time (aPTT) [...] coagulation studies. Please contact the laboratory at [phone] for redraw instructions. Alanine aminotransferase [En zymatic activity/volume] in Serum or PlasmaOrdered By: Alondra Gonzales on 10-15-2023 ALT [Catalytic activity/Vol] 17 U/L Normal 7-52 [facility] Comment on above: Performed By: #### G LULS #### Point of Care testing , Albumin [Mass/volume] in Ser um or Plasma by Bromocresol green (BCG) dye binding methoOrdered By: Alondra Gonzales on 10-15-2023 Albumin BCG dye [Mass/Vol] 3.4 g/dL Low 3.5-5.7 [facility] Alkaline phosphatase [Enzyma tic activity/volume] in Serum or PlasmaOrdered By: Alondra Gonzales on 10-15-2023 ALP [Catalytic activity/Vol] 62 U/L Normal 34-104 [facility] Comment on above: Performed By: #### G LULS #### Point of Care testing , Aspartate aminotransferase [ Enzymatic activity/volume] in Serum or PlasmaOrdered By: Alondra Gonzales on 10-15-2023 AST [Catalytic activity/Vol] 16 U/L Normal 13-39 [facility] Comment on above: Performed By: #### G LULS #### Point of Care testing , Automated basophil %Ordered By: Alondra Gonzales on 10-15-2023 Basophils/100 WBC (Bld) 1.0 % Normal . [facility] Comment on above: Performed By: #### C BC #### [address] Automated basophil countOrde red By: Alondra Gonzales on 10-15-2023 Basophils (Bld) [#/Vol] 0.1 10*3/uL Normal 0.0-0.2 [facility] Comment on above: Result Comment: PERF ORMED BY: [place] [address] PATHOLOGIST SPLITTER MACHINE WOLFGANG JOHNSON M.D. Performed By: #### C BC #### [address] Automated blood monocyte cou ntOrdered By: Alondra Gonzales on 10-15-2023 Monocytes (Bld) [#/Vol] 0.9 10*3/uL High 0.0-0.8 [facility] Comment on above: Performed By: #### C BC #### [address] Automated eosinophil %Ordere d By: Alondra Gonzales on 10-15-2023 Eosinophils/100 WBC (Bld) 3.7 % Normal . [facility] Comment on above: Performed By: #### C BC #### [address] Automated eosinophil countOr dered By: Alondra Gonzales on 10-15-2023 Eosinophils (Bld) [#/Vol] 0.4 10*3/uL Normal 0.0-0.45 [facility] Comment on above: Performed By: #### C BC #### [address] Automated monocyte %Ordered By: Alondra Gonzales on 10-15-2023 Monocytes/100 WBC (Bld) 9.3 % Normal . [facility] Comment on above: Performed By: #### C BC #### [address] Automated neutrophil %Ordere d By: Alondra Gonzales on 10-15-2023 Neutrophils/100 WBC (Bld) 74.1 % Normal . [facility] Comment on above: Performed By: #### C BC #### [address] Bilirubin.total [Mass/volume ] in Serum or PlasmaOrdered By: Alondra Gonzales on 10-15-2023 Bilirubin [Mass/Vol] 0.4 mg/dL Normal 0.3-1.0 [facility] Comment on above: Performed By: #### G LULS #### Point of Care testing , Calcium [Mass/volume] in Ser um or PlasmaOrdered By: Alondra Gonzales on 10-15-2023 Calcium [Mass/Vol] 8.1 mg/dL Low 8.6-10.3 [facility] Comment on above: Performed By: #### G LULS #### Point of Care testing , Capillary blood glucose jose urement by glucometer (mass/volume)Ordered By: Yovanny Rivera on 10-15-2023 Glucose [Mass/Vol] 277 mg/dL Normal [facility] Comment on above: Random Glucose Refer ence Range is dependent on time and content of last meal. Glucose of more than 200 mg/dL in a nonstressed, ambulatory subject supports the diagnosis of Diabetes Mellitus. Result Comment: Coleman om Glucose Reference Range is dependent on time and content of last meal. Glucose of more than 200 mg/dL in a nonstressed, ambulatory subject supports the diagnosis of Diabetes Mellitus. PERFORMED BY: [place] [address] PATHOLOGIST SPLITTER MACHINE WOLFGANG JOHNSON M.D. Performed By: #### C , ESR #### [address] Carbon dioxide, total [Moles /volume] in Serum or PlasmaOrdered By: Alondra Gonzales on 10-15-2023 CO2 [Moles/Vol] 28.2 mmol/L Normal 21.0-31.0 [facility] Comment on above: Performed By: #### G LULS #### Point of Care testing , Chloride [Moles/volume] in S teodoro or PlasmaOrdered By: Alondra Gonzales on 10-15-2023 Chloride [Moles/Vol] 104 mmol/L Normal 98-107 [facility] Comment on above: Performed By: #### G LULS #### Point of Care testing , Complete Blood Count Auto Di ffon 10-15-2023 Mean Corpuscular HGB Conc 33.4 g/dL Normal 32.5-35.6 [facility] Comment on above: Performed By: #### C BC #### [facility] [address] [place] [address] NRBC% 0.1 /100{WBC} Normal 0-0.5 [facility] Comment on above: Performed By: #### C BC #### [facility] [address] [place] [address] Comprehensive Metabolic Pane laxmi 10-15-2023 Albumin [Mass/Vol] 3.4 g/dL Low 3.5-5.7 [facility] Comment on above: Performed By: #### G LULS #### Point of Care testing , Creatinine Clr Calc Pharmacy 51.77 Normal [facility] Comment on above: Performed By: #### G LULS #### Point of Care testing , GFR/1.73 sq M.predicted MDRD (S/P/Bld) [Vol rate/Area] 43.716 mL/min/{1.73_m2} Normal [facility] Comment on above: Performed By: #### G LULS #### Point of Care testing , Creatinine [Mass/volume] in Serum or PlasmaOrdered By: Alondra Gonzales on 10-15-2023 Creatinine [Mass/Vol] 1.68 mg/dL High 0.70-1.30 [facility] Comment on above: Performed By: #### G LULS #### Point of Care testing , ECH echo transthoracicon ECH echo transthoracic [facility] [place] [address] [place] [address] Echocardiogram Signed Patient: Italia Allen MR#: [id number] : 1955 Acct:[id number] Age/Sex: 68 / M ADM Date: 10/14/23 Loc: Room: [address] [place] [address] Type: ADM [place] Attending Dr: Yovanny Rivera MD Ordering Provider: Alondra Gonzales MD Date of Service: 10/14/23 [facility] echo transthoracic: CHF exacerbation Copies to: MD [...] Diogenes Talley MD 10/15/23 1856 Normal [facility] Erythrocyte distribution wid th [Ratio] by Automated countOrdered By: Alondra Gonzales on 10-15-2023 Erythrocyte distribution width (RBC) [Ratio] 15.1 % High 12.0-14.8 [facility] Comment on above: Performed By: #### C BC #### [facility] [address] [place] [address] Erythrocytes [#/volume] in B lood by Automated countOrdered By: Alondra Gonzales on 10-15-2023 RBC (Bld) [#/Vol] 3.97 10*6/uL Normal 3.90-5.60 [facility] Comment on above: Performed By: #### C BC #### [facility] [address] [place] [address] Glucose Poct Glucometerson 0 10-15-2023 Commemt1 Glu2: Cleaned Meter Normal [facility] Comment on above: Result Comment: PERF ORMED BY: [place] [address] PATHOLOGIST SPLITTER MACHINE WOLFGANG JOHNSON M.D. Performed By: #### G LULS #### Point of Care testing , Glucose [Mass/Vol] 303 mg/dL Normal [facility] Comment on above: Result Comment: Coleman om Glucose Reference Range is dependent on time and content of last meal. Glucose of more than 200 mg/dL in a nonstressed, ambulatory subject supports the diagnosis of Diabetes Mellitus. Performed By: #### G LULS #### Point of Care testing , Commemt1 Glu2: Cleaned Meter Normal [facility] Comment on above: Result Comment: PERF ORMED BY: [place] [address] PATHOLOGIST SPLITTER MACHINE WOLFGANG JOHNSON M.D. Performed By: #### G LULS #### Point of Care testing , Glucose [Mass/Vol] 257 mg/dL Normal [facility] Comment on above: Result Comment: Coleman om Glucose Reference Range is dependent on time and content of last meal. Glucose of more than 200 mg/dL in a nonstressed, ambulatory subject supports the diagnosis of Diabetes Mellitus. Performed By: #### G LULS #### Point of Care testing , Commemt1 Glu2: Cleaned Meter Normal [facility] Comment on above: Result Comment: PERF ORMED BY: [facility] [address] [address] PATHOLOGIST SPLITTER MACHINE WOLFGANG JOHNSON M.D. Performed By: #### G LULS #### Point of Care testing , Glucose [Mass/Vol] 159 mg/dL Normal [facility] Comment on above: Result Comment: Coleman om Glucose Reference Range is dependent on time and content of last meal. Glucose of more than 200 mg/dL in a nonstressed, ambulatory subject supports the diagnosis of Diabetes Mellitus. Performed By: #### G LULS #### Point of Care testing , Glucose [Mass/volume] in Ser um or PlasmaOrdered By: Alondra Gonzales on 10-15-2023 Glucose [Mass/Vol] 120 mg/dL Significant change up 70-100 [facility] Comment on above: Delta: 220 on -1127ADA recommended reference rangeRandom Glucose Reference Range is dependent on time and content of last meal. Glucose of more than 200 mg/dL in a nonstressed, ambulatory subject supports the diagnosis of Diabetes Mellitus. Result Comment: Coleman om Glucose Reference Range is dependent on [...] (Bld) [Volume fraction] 35.0 % Low 38.8-50.0 [facility] Comment on above: Performed By: #### C BC #### [address] Hemoglobin [Mass/volume] in BloodOrdered By: Alondra Gonzales on 10-15-2023 Hemoglobin (Bld) [Mass/Vol] 11.7 g/dL Low 13.0-17.0 [facility] Comment on above: Performed By: #### C BC #### [address] INR in Platelet poor plasma by Coagulation assayOrdered By: Alondra Gonzales on 10-15-2023 INR Coag (PPP) [Relative time] 1.1 {INR} Normal [facility] Comment on above: INR Therapeutic Rang [...] Performed By: #### P TT, PT #### [facility] [address] [place] [address] [place] Leukocytes [#/volume] correc zaid for nucleated erythrocytes in Blood by Automated counOrdered By: Alondra Gonzales on 10-15-2023 WBC corrected for nucl RBC Auto (Bld) [#/Vol] 9.8 10*3/uL 4.1-10.5 [facility] Leukocytes [#/volume] in Blo od by Automated countOrdered By: Alondra Gonzales on 10-15-2023 WBC (Bld) [#/Vol] 9.8 10*3/uL Normal 4.1-10.5 [facility] Comment on above: Performed By: #### C BC #### [address] Lymphocytes [#/volume] in Bl ood by Automated countOrdered By: Alondra Gonzales on 10-15-2023 Lymphocytes (Bld) [#/Vol] 1.2 10*3/uL Normal 1.00-4.8 [facility] Comment on above: Performed By: #### C BC #### [address] Lymphocytes/100 leukocytes i n Blood by Automated countOrdered By: Alondra Gonzales on 10-15-2023 Lymphocytes/100 WBC (Bld) 11.9 % Normal . [facility] Comment on above: Performed By: #### C BC #### [address] MCH [Entitic mass] by Automa zaid countOrdered By: Alondra Gonzales on 10-15-2023 MCH (RBC) [Entitic mass] 29.4 pg Normal 27.5-35.2 [facility] Comment on above: Performed By: #### C BC #### [address] MCHC Auto (RBC) [Mass/Vol]Or dered By: Alondra Gonzales on 10-15-2023 MCHC (RBC) [Mass/Vol] 33.4 g/dL 32.5-35.6 [facility] MCV [Entitic volume] by Auto mated countOrdered By: Alondra Gonzales on 10-15-2023 MCV (RBC) [Entitic vol] 87.9 fL Normal 83.5-101 [facility] Comment on above: Performed By: #### C BC #### [facility] [address] [place] [address] Magnesium [Mass/volume] in S teodoro or PlasmaOrdered By: Alondra Gonzales on 10-15-2023 Magnesium [Mass/Vol] 1.7 mg/dL Low 1.9-2.7 [facility] Comment on above: Result Comment: PERF ORMED BY: [place] [address] PATHOLOGIST SPLITTER MACHINE WOLFGANG JOHNSON M.D. Performed By: #### G RYAN #### Point of Care testing , Neutrophils [#/volume] in Bl ood by Automated countOrdered By: Alondra Gonzales on 10-15-2023 Neutrophils (Bld) [#/Vol] 7.3 10*3/uL Normal 1.8-7.7 [facility] Comment on above: Performed By: #### C BC #### [facility] [address] [place] [address] No Panel InformationOrdered By: Yovanny Rivera on 10-15-2023 Bedside Glucose Comment Glu2: cleaned meter [facility] No Panel InformationOrdered By: Alondra Gonzales on 10-15-2023 Estimated GFR (CKD-EPI) 43.716 mL/Min [facility] Creatinine Clearance (Chem 51.77 [facility] Nucleated erythrocytes [Pres ence] in Blood by Automated countOrdered By: Alondra Gonzales on 10-15-2023 Nucleated RBC Auto Ql (Bld) 0.1 /100{WBC} 0-0.5 [facility] Partial Thromboplastin Timeo n 10-15-2023 aPTT Coag (Bld) [Time] 45.5 s High 25.1-36.5 [facility] Comment on above: Result Comment: A he matocrit value greater than 55% may lead to inaccurate results in coagulation testing. Patients having hematocrit values >55% require a special collection tube for coagulation studies. Please contact the laboratory at [phone] for redraw instructions. PERFORMED BY: [place] [address] PATHOLOGIST SPLITTER MACHINE WOLFGANG JOHNSON M.D. Performed By: #### P TT #### [address] aPTT Coag (Bld) [Time] 41.7 s High 25.1-36.5 [facility] Comment on above: Order Comment: List the anticoagulant: HEPARIN, UNFRACTIONATED Result Comment: A he matocrit value greater than 55% may lead to inaccurate results in coagulation testing. Patients having hematocrit values >55% require a special collection tube for coagulation studies. Please contact the laboratory at [phone] for redraw instructions. PERFORMED BY: [place] [address] PATHOLOGIST SPLITTER MACHINE WOLFGANG JOHNSON M.D. Performed By: #### P TT, PT #### [place] [address] [place] Phosphate [Mass/volume] in S teodoro or PlasmaOrdered By: Alondra Gonzales on 10-15-2023 Phosphate [Mass/Vol] 3.8 mg/dL Normal 2.5-4.5 [facility] Comment on above: Performed By: #### G LULS #### Point of Care testing , Platelet mean volume [Entiti c volume] in Blood by Automated countOrdered By: Alondra Gonzales on 10-15-2023 Platelet mean volume (Bld) [Entitic vol] 7.7 fL Normal 6.6-10.1 [facility] Comment on above: Performed By: #### C BC #### [place] [address] [place] Platelets [#/volume] in Bloo d by Automated countOrdered By: Alondra Gonzales on 10-15-2023 Platelets (Bld) [#/Vol] 285 10*3/uL Normal 150-450 [facility] Comment on above: Performed By: #### C BC #### [address] [place] [address] [facility] Potassium [Moles/volume] in Serum or PlasmaOrdered By: Alondra Gonzales on 10-15-2023 Potassium [Moles/Vol] 4.1 mmol/L Normal 3.5-5.1 [facility] Comment on above: Performed By: #### G LULS #### Point of Care testing , Protein [Mass/volume] in Ser um or PlasmaOrdered By: Alondra Gonzales on 10-15-2023 Protein [Mass/Vol] 5.6 g/dL Low 6.4-8.9 [facility] Comment on above: Performed By: #### G LULS #### Point of Care testing , Prothrombin time (PT)Ordered By: Alondra Gonzales on 10-15-2023 PT Coag (PPP) [Time] 12.6 s Normal 9.0-12.9 [facility] Comment on above: A hematocrit value g reater than 55% may lead to inaccurate results in coagulation testing. Patients having hematocrit values >55% require a special collection tube for coagulation studies. Please contact the laboratory at [phone] for redraw instructions. Order Comment: List the anticoagulant: HEPARIN, UNFRACTIONATED Result Comment: A he matocrit value greater than 55% may lead to inaccurate results in coagulation testing. Patients having hematocrit values >55% require a special collection tube for coagulation studies. Please contact the laboratory at [phone] for redraw instructions. Performed By: #### P TT, PT #### [facility] [address] [id number] [facility] Serum globulin measurement b y calculation (mass/volume)Ordered By: Alondra Gonzales on 10-15-2023 Globulin (S) [Mass/Vol] 2.2 g/dL Normal [facility] Comment on above: Performed By: #### G LULS #### Point of Care testing , Serum or plasma albumin/glob ulin mass ratioOrdered By: Alondra Gonzales on 10-15-2023 Albumin/Globulin [Mass ratio] 1.5 {ratio} Normal [facility] Comment on above: Performed [...] 10-15-2023 Sodium [Moles/Vol] 139 mmol/L Normal 136-145 [facility] Comment on above: Performed By: #### G LULS #### Point of Care testing , US renal BIon 10-15-2023 US renal BI [facility] [place] [address] Ultrasound Report Signed Patient: Italia Allen MR#: [id number] : 1955 Acct:[id number] Age/Sex: 68 / M ADM Date: 10/14/23 Loc: Room: [address] [place] [address] Type: ADM IN Attending Dr: Yovanny Rivera [...] Baird Jr., D.OTomy10/15/2023 9:59 AM Dictation Location: [place] [address] Tech: Rebecca Harperyumiko Transcribed By: IRISH 10/15/23 0959 Dictated By: Jude Baird Jr, DO 10/15/23 0954 Signed By: 10/15/23 0959 Normal [facility] Urea nitrogen [Mass/volume] in Serum or PlasmaOrdered By: Alondra Gonzales on 10-15-2023 Urea nitrogen [Mass/Vol] 33 mg/dL High 09-12 [facility] Comment on above: Performed By: #### G RYAN #### Point of Care testing , C reactive protein [Mass/vol ume] in Serum or PlasmaOrdered By: Alondra Gonzales on 10-14-2023 CRP [Mass/Vol] 2.7 mg/dL High 0.0-0.5 [facility] C-Reactive Proteinon 024 C-Reactive Protein 2.7 mg/dL High 0.0-0.5 [facility] Comment on above: Result Comment: PERF ORMED BY: [place] [address] PATHOLOGIST SPLITTER MACHINE WOLFGANG JOHNSON M.D. Performed By: #### C BC, ESR #### [address] Complete Blood Count Auto Di ffon 10-14-2023 Basophils (Bld) [#/Vol] 0.1 10*3/uL Normal 0.0-0.2 [facility] Comment on above: Performed By: #### C BC, ESR #### [place] [address] [place] Basophils/100 WBC (Bld) 1.3 % Normal . Chuck whalen [facility] Comment on above: Performed By: #### C BC, ESR #### [place] [address] [place] Eosinophils (Bld) [#/Vol] 0.2 10*3/uL Normal 0.0-0.45 [facility] Comment on above: Performed By: #### C BC, ESR #### [place] [address] [place] Eosinophils/100 WBC (Bld) 3.2 % Normal . [facility] Comment on above: Performed By: #### C BC, ESR #### [address] Erythrocyte distribution width (RBC) [Ratio] 15.4 % High 12.0-14.8 [facility] Comment on above: Performed By: #### C BC, ESR #### [address] Hematocrit (Bld) [Volume fraction] 35.1 % Low 38.8-50.0 [facility] Comment on above: Performed By: #### C BC, ESR #### [address] Hemoglobin (Bld) [Mass/Vol] 11.6 g/dL Low 13.0-17.0 [facility] Comment on above: Performed By: #### C BC, ESR #### [address] Lymphocytes (Bld) [#/Vol] 0.9 10*3/uL Low 1.00-4.8 [facility] Comment on above: Performed By: #### C BC, ESR #### [address] Lymphocytes/100 WBC (Bld) 12.1 % Normal . [facility] Comment on above: Performed By: #### C BC, ESR #### [address] MCH (RBC) [Entitic mass] 29.3 pg Normal 27.5-35.2 [facility] Comment on above: Performed By: #### C BC, ESR #### [address] MCV (RBC) [Entitic vol] 88.7 fL Normal 83.5-101 [facility] Comment on above: Performed By: #### C BC, ESR #### [address] Mean Corpuscular HGB Conc 33.0 g/dL Normal 32.5-35.6 [facility] Comment on above: Performed By: #### C BC, ESR #### [place] [address] Monocytes (Bld) [#/Vol] 0.6 10*3/uL Normal 0.0-0.8 [facility] Comment on above: Performed By: #### C BC, ESR #### [address] Monocytes/100 WBC (Bld) 7.5 % Normal . [facility] Comment on above: Performed By: #### C BC, ESR #### [address] Neutrophils (Bld) [#/Vol] 5.7 10*3/uL Normal 1.8-7.7 [facility] Comment on above: Performed By: #### C BC, ESR #### [address] Neutrophils/100 WBC (Bld) 75.9 % Normal . [facility] Comment on above: Performed By: #### C BC, ESR #### [address] NRBC% 0.1 /100{WBC} Normal 0-0.5 [facility] Comment on above: Performed By: #### C BC, ESR #### [address] Platelet mean volume (Bld) [Entitic vol] 7.8 fL Normal 6.6-10.1 [facility] Comment on above: Performed By: #### C BC, ESR #### [place] [address] [place] Platelets (Bld) [#/Vol] 290 10*3/uL Normal 150-450 [facility] Comment on above: Performed By: #### C BC, ESR #### [address] RBC (Bld) [#/Vol] 3.95 10*6/uL Normal 3.90-5.60 [facility] Comment on above: Performed By: #### C BC, ESR #### [place] [address] [place] WBC (Bld) [#/Vol] 7.5 10*3/uL Normal 4.1-10.5 [facility] Comment on above: Performed By: #### C BC, ESR #### [address] Basophils (Bld) [#/Vol] 0.1 10*3/uL Normal 0.0-0.2 [facility] Comment on above: Result Comment: PERF ORMED BY: [place] [address] PATHOLOGIST SPLITTER MACHINE WOLFGANG JOHNSON M.D. Performed By: #### C BC, ESR #### [address] Basophils/100 WBC (Bld) 1.3 % Normal . [facility] Comment on above: Performed By: #### C BC, ESR #### [address] Eosinophils (Bld) [#/Vol] 0.3 10*3/uL Normal 0.0-0.45 [facility] Comment on above: Performed By: #### C BC, ESR #### [address] Eosinophils/100 WBC (Bld) 3.4 % Normal . [facility] Comment on above: Performed By: #### C BC, ESR #### [address] Erythrocyte distribution width (RBC) [Ratio] 15.3 % High 12.0-14.8 [facility] Comment on above: Performed By: #### C BC, ESR #### [address] Hematocrit (Bld) [Volume fraction] 35.3 % Low 38.8-50.0 [facility] Comment on above: Performed By: #### C BC, ESR #### [address] Hemoglobin (Bld) [Mass/Vol] 11.8 g/dL Low 13.0-17.0 [facility] Comment on above: Performed By: #### C BC, ESR #### [facility] [address] Lymphocytes (Bld) [#/Vol] 0.9 10*3/uL Low 1.00-4.8 [facility] Comment on above: Performed By: #### C BC, ESR #### [facility] [address] [place] [address] [place] Lymphocytes/100 WBC (Bld) 10.9 % Normal . [facility] Comment on above: Performed By: #### C BC, ESR #### [facility] [address] MCH (RBC) [Entitic mass] 29.5 pg Normal 27.5-35.2 [facility] Comment on above: Performed By: #### C BC, ESR #### [address] MCV (RBC) [Entitic vol] 87.9 fL Normal 83.5-101 [facility] Comment on above: Performed By: #### C BC, ESR #### [address] Mean Corpuscular HGB Conc 33.5 g/dL Normal 32.5-35.6 [facility] Comment on above: Performed By: #### C BC, ESR #### [place] [address] [place] Monocytes (Bld) [#/Vol] 0.6 10*3/uL Normal 0.0-0.8 [facility] Comment on above: Performed By: #### C BC, ESR #### [place] [address] [place] Monocytes/100 WBC (Bld) 7.5 % Normal . [facility] Comment on above: Performed By: #### C BC, ESR #### [place] [address] [place] Neutrophils (Bld) [#/Vol] 6.0 10*3/uL Normal 1.8-7.7 [facility] Comment on above: Performed By: #### C BC, ESR #### [facility] [address] Neutrophils/100 WBC (Bld) 76.9 % Normal . [facility] Comment on above: Performed By: #### C BC, ESR #### [facility] [address] NRBC% 0.1 /100{WBC} Normal 0-0.5 [facility] Comment on above: Performed By: #### C BC, ESR #### [facility] [address] Platelet mean volume (Bld) [Entitic vol] 7.8 fL Normal 6.6-10.1 [facility] Comment on above: Performed By: #### C BC, ESR #### [facility] [address] Platelets (Bld) [#/Vol] 288 10*3/uL Normal 150-450 [facility] Comment on above: Performed By: #### C BC, ESR #### [facility] [address] RBC (Bld) [#/Vol] 4.01 10*6/uL Normal 3.90-5.60 [facility] Comment on above: Performed By: #### C BC, ESR #### [facility] [address] WBC (Bld) [#/Vol] 7.8 10*3/uL Normal 4.1-10.5 [facility] Comment on above: Performed By: #### C BC, ESR #### [facility] [address] Comprehensive Metabolic Pane laxmi 10-14-2023 Albumin [Mass/Vol] 3.3 g/dL Low 3.5-5.7 [facility] Comment on above: Performed By: #### C BC, ESR #### [address] Albumin/Globulin [Mass ratio] 1.4 {ratio} Normal [facility] Comment on above: Performed By: #### C BC, ESR #### [facility] [address] ALP [Catalytic activity/Vol] 59 U/L Normal 34-104 [facility] Comment on above: Performed By: #### C BC, ESR #### [facility] [address] ALT [Catalytic activity/Vol] 17 U/L Normal 7-52 [facility] Comment on above: Performed By: #### C BC, ESR #### [facility] [address] Anion gap [Moles/Vol] 10.6 mmol/L Normal 6.0-15.0 [facility] Comment on above: Performed By: #### C BC, ESR #### [address] AST [Catalytic activity/Vol] 16 U/L Normal 13-39 [facility] Comment on above: Performed By: #### C BC, ESR #### [address] Bilirubin [Mass/Vol] 0.5 mg/dL Normal 0.3-1.0 [facility] Comment on above: Performed By: #### C BC, ESR #### [address] Calcium [Mass/Vol] 8.2 mg/dL Low 8.6-10.3 [facility] Comment on above: Performed By: #### C BC, ESR #### [place] [address] [place] Chloride [Moles/Vol] 106 mmol/L Normal 98-107 [facility] Comment on above: Performed By: #### C BC, ESR #### [address] CO2 [Moles/Vol] 28.5 mmol/L Normal 21.0-31.0 [facility] Comment on above: Performed By: #### C BC, ESR #### [facility] [address] [place] [address] [place] Creatinine [Mass/Vol] 1.61 mg/dL High 0.70-1.30 [facility] Comment on above: Performed By: #### C BC, ESR #### [place] [address] [place] Creatinine Clr Calc Pharmacy 54.02 Normal [facility] Comment on above: Performed By: #### C BC, ESR #### [place] [address] [place] GFR/1.73 sq M.predicted MDRD (S/P/Bld) [Vol rate/Area] 46.006 mL/min/{1.73_m2} Normal [facility] Comment on above: Performed By: #### C BC, ESR #### [address] Globulin (S) [Mass/Vol] 2.3 g/dL Normal T [facility] Comment on above: Performed By: #### C BC, ESR #### [address] Glucose [Mass/Vol] 220 mg/dL High 70-100 [facility] Comment on above: Result Comment: [facility] Glucose Reference Range is dependent on time and content of last meal. Glucose of more than 200 mg/dL in a nonstressed, ambulatory subject supports the diagnosis of Diabetes Mellitus. ADA recommended reference range Performed By: #### C BC, ESR #### [address] Potassium [Moles/Vol] 4.1 mmol/L Normal 3.5-5.1 [facility] Comment on above: Performed By: #### C BC, ESR #### [address] Protein [Mass/Vol] 5.6 g/dL Low 6.4-8.9 [facility] Comment on above: Performed By: #### C BC, ESR #### [address] Sodium [Moles/Vol] 141 mmol/L Normal 136-145 [facility] Comment on above: Performed By: #### C BC, ESR #### [address] Urea nitrogen [Mass/Vol] 31 mg/dL High 7- [facility] Comment on above: Performed By: #### C BC, ESR #### [address] ECG 12 lead ECGon 10-14-2023 ECG 12 lead ECG [facility] [place] [address] [place] [address] Electrocardiograph Report Signed Patient: Italia Allen MR#: [id number] : 1955 Acct:[id number] Age/Sex: 68 / M ADM Date: 10/14/23 Loc: Room: [address] [place] [address] Type: DIS IN Attending Dr: Yovanny Rivera [...] previous ECGs available Confirmed by Diogenes Talley ([id number]) on 10/16/2023 10:19:42 PM Referred By: Electronically Signed By: Diogenes Talley Transcribed By: MUS Signed By Diogenes Talley MD 10/16/23 2882 Normal [facility] Erythrocyte Sedimentation Ra clarice 10-14-2023 ESR (Bld) [Velocity] 22 mm/h High 0-19 [facility] Comment on above: Result Comment: PERF ORMED BY: [place] [address] PATHOLOGIST SPLITTER MACHINE WOLFGANG JOHNSON M.D. Performed By: #### C BC, ESR #### [address] [place] [address] [facility] Erythrocyte sedimentation ra te by Photometric methodOrdered By: Alondra Gonzales on 10-14-2023 ESR Photometric method (Bld) [Velocity] 22 mm/hr High 0-19 [facility] Glucose Poct Glucometerson 0 10-14-2023 Glucose [Mass/Vol] 306 mg/dL Normal [facility] Comment on above: Result Comment: [facility] Glucose Reference Range is dependent on time and content of last meal. Glucose of more than 200 mg/dL in a nonstressed, ambulatory subject supports the diagnosis of Diabetes Mellitus. PERFORMED BY: [place] [address] PATHOLOGIST SPLITTER MACHINE WOLFGANG JOHNSON M.D. Performed By: #### G LUFAISAL #### Point of Care testing , Glucose [Mass/Vol] 221 mg/dL Normal [facility] Comment on above: Result Comment: [facility] Glucose Reference Range is dependent on time and content of last meal. Glucose of more than 200 mg/dL in a nonstressed, ambulatory subject supports the diagnosis of Diabetes Mellitus. PERFORMED BY: [place] [address] PATHOLOGIST SPLITTER MACHINE WOLFGANG JOHNSON M.D. Performed By: #### G LUFAISAL #### Point of Care testing , Magnesiumon 10-14-2023 Magnesium [Mass/Vol] 1.7 mg/dL Low 1.9-2.7 [facility] Comment on above: Performed By: #### C BC, ESR #### [place] [id number] [place] Partial Thromboplastin Timeo n 10-14-2023 aPTT Coag (Bld) [Time] 35.7 s Normal 25.1-36.5 [facility] Comment on above: Result Comment: A he matocrit value greater than 55% may lead to inaccurate results in coagulation testing. Patients having hematocrit values >55% require a special collection tube for coagulation studies. Please contact the laboratory at [phone] for redraw instructions. PERFORMED BY: [place] [address] PATHOLOGIST SPLITTER MACHINE WOLFGANG JOHNSON M.D. Performed By: #### P TT #### [place] [id number] [facility] aPTT Coag (Bld) [Time] 31.1 s Normal 25.1-36.5 [facility] Comment on above: Result Comment: A he matocrit value greater than 55% may lead to inaccurate results in coagulation testing. Patients having hematocrit values >55% require a special collection tube for coagulation studies. Please contact the laboratory at [phone] for redraw instructions. PERFORMED BY: [place] [address] PATHOLOGIST SPLITTER MACHINE WOLFGANG JOHNSON M.D. Performed By: #### C BC, ESR #### [address] [address] [place] Prothrombin Time INRon 10-13 INR Coag (PPP) [Relative time] 1.1 {INR} Normal [facility] Comment on above: Result Comment: [...] Performed By: #### C BC, ESR #### [place] [id number] [place] PT Coag (PPP) [Time] 13.0 s High 9.0-12.9 [facility] Comment on above: Result Comment: A he matocrit value greater than 55% may lead to inaccurate results in coagulation testing. Patients having hematocrit values >55% require a special collection tube for coagulation studies. Please contact the laboratory at [phone] for redraw instructions. Performed By: #### C BC, ESR #### [place] [id number] [place] Troponin I High Sensitivityo n 10-14-2023 Troponin I High Sensitivity 1682.8 pg/mL Off scale high 0.0-20.0 [facility] Comment on above: Result Comment: Crit ical Result : Called to and read back by: JAREK REESE at: 10/14/2023 12:42:52 by:ADRIENNE PERFORMED BY: [place] [address] PATHOLOGIST SPLITTER MACHINE WOLFGANG JOHNSON M.D. Performed By: #### C BC, ESR #### [address] Troponin I.cardiac [Mass/vol ume] in Serum or Plasma by Detection limit <= 0.01 ng/Ordered By: Alondra Gonzales on 10-14-2023 Troponin I.cardiac DL <= 0.01 ng/mL [Mass/Vol] 1682.8 pg/mL High 0.0-20.0 [facility] Comment on above: Critical Result : Ca lled to and read back by: JAREK REESE at: 10/14/2023 12:42:52 by:ADRIENNE XR chest 1V portableon 10-13 XR chest 1V portable [facility] [place] [address] [place] [address] XRay Report Signed Patient: Italia Allen MR#: [id number] : 1955 Acct:[id number] Age/Sex: 68 / M ADM Date: 10/14/23 Loc: Room: [address] [place] [address] Type: ADM IN Attending Dr: Alondra Gonzales [...] Andrés Hardwick M.D.10/14/2023 12:13 PM Dictation Location: [facility]--13 Transcribed By: [facility] 10/14/23 1213 Dictated By: Andrés Hardwick II, MD 10/14/23 1212 Signed By: 10/14/23 1213 Normal [facility] Vital Signs Date Time Vital Sign Value Performing Clinician Facility 02-26-2024 11:07-0500 Blood Pressure Location LILLIAM PHAM [facility] 02-26-2024 11:07-0500 Body temperature 98.6 [degF] LILLIAM PHAM [facility] 02-26-2024 11:07-0500 Diastolic blood pressure 55 mm[Hg] LILLIAMLISA PHAM [facility] 02-26-2024 11:07-0500 Heart rate 119 /min LILLIAM PHAM [facility] 02-26-2024 11:07-0500 Respiratory rate 18 /min LILLIAM PHAM [facility] 02-26-2024 11:07-0500 Systolic blood pressure 99 mm[Hg] LILLIAM ANKIT [facility] 12-27-2023 15:12-0500 Body temperature 97.5 [degF] Foster Nolan MD Work Phone: [facility] 12-27-2023 15:12-0500 Diastolic blood pressure 68 mm[Hg] Foster Nolan MD Work Phone: [facility] 12-27-2023 15:12-0500 Heart rate 63 /min Foster Nolan MD Work Phone: [facility] 12-27-2023 15:12-0500 Respiratory rate 20 /min Foster Nolan MD Work Phone: [facility] 12-27-2023 15:12-0500 SaO2% (BldA) [Mass fraction] 98 % Foster Nolan MD Work Phone: [facility] 12-27-2023 15:12-0500 Systolic blood pressure 134 mm[Hg] Foster Nolan MD Work Phone: [facility] 12-23-2023 06:06-0500 Body mass index (BMI) [Ratio] 35.52 kg/m2 Foster Nolan MD Work Phone: [facility] 12-23-2023 06:06-0500 Body weight 112.3 kg Foster Nolan MD Work Phone: [facility] 12-22-2023 13:00-0400 Body height 177.8 cm Foster Nolan MD Work Phone: [facility] 11-29-2023 13:55-0400 Body height 177.8 cm Fatemeh Coleman DPM Work Phone: [facility] 11-29-2023 13:55-0400 Body mass index (BMI) [Ratio] 35.87 kg/m2 Fatemeh Coleman DPM Work Phone: [facility] 11-29-2023 13:55-0400 Body weight 113.4 kg Fatemeh GARCIAM Work Phone: [facility] 11-22-2023 15:42-0400 Blood Pressure Location Marine Grier [facility] 11-22-2023 15:42-0400 Diastolic blood pressure 60 mm[Hg] Marine Grier [facility] 11-22-2023 15:42-0400 Heart rate 76 /min Marien Orzech [facility] 11-22-2023 15:42-0400 Respiratory rate 16 /min Marine Orzech [facility] 11-22-2023 15:42-0400 Systolic blood pressure 110 mm[Hg] Marine Orzech [facility] 11-13-2023 11:12-0400 Diastolic blood pressure 73 mm[Hg] Sahil Wiley MD Work Phone: [facility] 11-13-2023 11:12-0400 Heart rate 72 /min Sahil Wiley MD Work Phone: [facility] 11-13-2023 11:12-0400 Systolic blood pressure 153 mm[Hg] Sahil Wiley MD Work Phone: [facility] 11-13-2023 11:11-0400 Body height 177.8 cm Sahil Wiley MD Work Phone: [facility] 11-13-2023 11:11-0400 Body mass index (BMI) [Ratio] 36.16 kg/m2 Sahil Wiley MD Work Phone: [facility] 11-13-2023 11:11-0400 Body weight 114.31 kg Sahil Wiley MD Work Phone: [facility] 11-13-2023 11:11-0400 SaO2% (BldA) [Mass fraction] 90 % Sahil Wiley MD Work Phone: [facility] 11-02-2023 09:53-0400 Body height 177.8 cm Ann Henao MD Work Phone: [facility] 11-02-2023 09:53-0400 Body mass index (BMI) [Ratio] 36.16 kg/m2 Ann Henao MD Work Phone: [facility] 11-02-2023 09:53-0400 Body weight 114.31 kg Ann Henao MD Work Phone: [facility] 11-02-2023 09:53-0400 Diastolic blood pressure 76 mm[Hg] Ann Henao MD Work Phone: [facility] 11-02-2023 09:53-0400 Heart rate 78 /min Ann Henao MD Work Phone: [facility] 11-02-2023 09:53-0400 Systolic blood pressure 134 mm[Hg] Ann Henao MD Work Phone: [facility] 10-24-2023 07:22-0400 Body temperature 98.4 [degF] Inderjit Mejia MD PhD Work Phone: [facility] 10-24-2023 07:22-0400 Diastolic blood pressure 55 mm[Hg] Inderjit Mejia MD PhD Work Phone: [facility] 10-24-2023 07:22-0400 Heart rate 72 /min Inderjit Mejia MD PhD Work Phone: [facility] 10-24-2023 07:22-0400 SaO2% (BldA) [Mass fraction] 95 % Inderjit Mejia MD PhD Work Phone: [facility] 10-24-2023 07:22-0400 Systolic blood pressure 96 mm[Hg] Inderjit Mejia MD PhD Work Phone: [facility] 10-24-2023 05:23-0400 Body mass index (BMI) [Ratio] 35.11 kg/m2 Inderjit Mejia MD PhD Work Phone: [facility] 10-24-2023 05:23-0400 Body weight 111 kg Inderjit Mejia MD PhD Work Phone: [facility] 10-23-2023 23:30-0400 Respiratory rate 20 /min Inderjit Mejia MD PhD Work Phone: [facility] 10-16-2023 15:59-0400 Body temperature 37.0 Inderjit Mejia MD PhD Work Phone: [facility] Comment on above: NOTE: Patient Results are Not Corrected for Temperature 10-16-2023 15:59-0400 SaO2% (BldA) [Mass fraction] 95 % Inderjit Mejia MD PhD Work Phone: [facility] 10-16-2023 15:57-0400 Body temperature 37.0 degrees Celsius [facility] Comment on above: Result Comment: NOTE: Patient Results ar e Not Corrected for Temperature Performed By: #### 1 [id number] #### ERICA Tam ([id number]) [facility] ([facility]) [address] [place] [address] 10-16-2023 15:57-0400 SaO2% (BldA) [Mass fraction] 95 % [facility] Comment on above: Performed By: #### [id number] #### ERICA Tam ([id number]) [facility]) [address] [place] [address] 10-16-2023 00:51-0400 Body height 177.8 cm Inderjit Mejia MD PhD Work Phone: [facility] 10-15-2023 23:16-0400 Body temperature 98 [degF] [facility] 10-15-2023 23:16-0400 Diastolic blood pressure 73 mm[Hg] [facility] 10-15-2023 23:16-0400 Heart rate 104 /min [facility] 10-15-2023 23:16-0400 Respiratory rate 18 /min [facility] 10-15-2023 23:16-0400 SaO2% (BldA) [Mass fraction] 92 % [facility] 10-15-2023 23:16-0400 Systolic blood pressure 153 mm[Hg] [facility] 10-15-2023 20:00-0400 Inhaled oxygen flow rate 2 L/min [facility] 10-15-2023 14:51-0400 Body height 177.8 cm [facility] 10-15-2023 06:00-0400 Body weight 112.2 kg [facility] Encounters Encounter Date Encounter Type Care Provider Facility Start: 05-26-2024 ambulatory Rahul Ortizi ty:[facility] Start: 05-05-2024 ambulatory Rahul Ortizi ty:[id number] Start: 04-03-2024 End: 04-03-2024 ambulatory Rahul CAMP Facility:[id number] Start: 02-26-2024 End: 02-26-2024 ambulatory LILLIAM PHAM Facility:[facility] Start: 02-26-2024 End: 02-26-2024 Patient encounter procedure LILLIAM TREVINORY [facility] Start: 02-21-2024 End: 02-21-2024 ambulatory LILLIAM TREVINORY Facility:[facility] Start: 02-21-2024 End: 02-21-2024 Patient encounter procedure LILLIAM TREVINORY [facility] Start: 02-19-2024 End: 02-19-2024 ambulatory LILLIAM Gamble ANKIT Facility:[facility] Start: 02-19-2024 End: 02-19-2024 Patient encounter procedure LILLIAM TREVINORY [facility] Start: 12-22-2023 End: 12-27-2023 Evaluation and management of inpatient Foster Nolan MD Work Phone: [facility] 5 Comment on above: NSTEMI (non-ST eleva zaid [...] Start: 12-04-2023 End: 12-04-2023 ambulatory [facility] Start: 12-04-2023 End: 12-04-2023 Patient encounter procedure Marine X Orzech [facility] Start: 12-03-2023 ambulatory [facility]ul CONRADO [facility] Start: 11-29-2023 End: 11-29-2023 Bamboo flowsheet Fatemeh Coleman DPM Work Phone: [facility] Start: 11-29-2023 End: 11-29-2023 Bamboo flowsheet Fatemeh Coleman DPM Work Phone: [facility] Start: 11-29-2023 End: 11-29-2023 ambulatory FATEMEH COLEMAN Not Available Start: 11-29-2023 End: 11-29-2023 Office outpatient new 30 minutes Fatemeh Coleman DPM Work Phone: [facility] Comment on above: Dermatophytosis of n ail (Primary Dx); Dystrophic nail; Angiopathy, diabetic (CMS/HCC); Diabetic polyneuropathy associated with type 2 diabetes mellitus (CMS/HCC) Start: 11-22-2023 End: 11-22-2023 ambulatory Marine X Orzech Facility:[facility] Start: 11-22-2023 End: 11-22-2023 Patient encounter procedure Marine X Orzech [facility] Start: 11-13-2023 End: 11-13-2023 ambulatory SAHIL WILEY [facility] Start: 11-13-2023 End: 11-13-2023 Office outpatient new 45 minutes Sahil Wiley MD Work Phone: [facility] Comment on above: Chronic low back batool n without sciatica, unspecified back pain laterality (Primary Dx); Primary hypertension; Edema, unspecified type Start: 11-02-2023 End: 11-02-2023 Transitional care manage srvc 14 day discharge Ann Henao MD Work Phone: [facility] Comment on above: CAD, multiple vessel (Primary Dx); Primary hypertension; Chronic systolic heart failure (Multi); BMI 36.0-36.9,adult; Stage 3a chronic kidney disease (Multi); Right carotid artery occlusion; Edema, unspecified type Start: 11-02-2023 End: 11-02-2023 ambulatory [facility] Start: 10-15-2023 End: 10-24-2023 Encounter for preprocedural cardiovascular examination [facility] Start: 10-15-2023 End: 10-24-2023 Evaluation and management of inpatient [facility] Work Phone: Comment on above: CAD, [...] status Inderjit Mejia MD PhD Work Phone: [facility] Work Phone: Start: 10-14-2023 End: 10-15-2023 Evaluation and management of inpatient [facility] Work Phone: Procedures Date Procedure Procedure Detail Performing Clinician Start: 12-27-2023 Glucose quantitative blood xcpt reagent strip Sherri Armstrong MD Work Phone: Start: 12-27-2023 Glucose quantitative blood xcpt reagent strip Sherri Armstrong MD Work Phone: Start: 12-26-2023 End: 12-26-2023 Renal function panel Rafi Cuevas Christin [employer] -[facility] Work Phone: Start: 12-26-2023 Ecg routine ecg w/le ast 12 lds trcg only w/o i&r Rafi Cuevas [employer]in [employer] MARKETING MANAGER-[facility] Work Phone: Start: 12-26-2023 Glucose quantitative blood xcpt reagent strip Sherri Armstrong MD Work Phone: Start: 12-26-2023 Egd transoral contro l bleeding any method Bela Rubalcava MD Work Phone: Start: 12-26-2023 PULSE OXIMETRY, SPOT Abran Cuevas [employer]in [employer] MARKETING MANAGER-[facility] Work Phone: Start: 12-26-2023 Glucose quantitative blood xcpt reagent strip Sherri Armstrong MD Work Phone: Start: 12-26-2023 Glucose quantitative blood xcpt reagent strip Sherri Armstrong MD Work Phone: Start: 12-26-2023 PULSE OXIMETRY, SPOT Abran Cuevas [employer]in [employer] MARKETING [employer] Work Phone: Start: 12-26-2023 PULSE OXIMETRY, SPOT Abran Dashen [employer] MARKETING [employer] Work Phone: Start: 12-26-2023 Glucose quantitative blood xcpt reagent strip Sherri Armstrong MD Work Phone: Start: 12-26-2023 PULSE OXIMETRY, SPOT Abran Cuevas [employer]in [employer] MARKETING [employer]NA[employer] Work Phone: Start: 12-26-2023 PULSE OXIMETRY, SPOT Abran Waller [employer] MARKETING MA[employer] Work Phone: Start: 12-25-2023 Glucose quantitative blood xcpt reagent strip Sherri Armstrong MD Work Phone: Start: 12-25-2023 PULSE OXIMETRY, SPOT Abran Waller [employer] MARKETING MANA[employer] Work Phone: Start: 12-25-2023 End: 12-25-2023 Renal function panel Rafi Waller [employer] MARKETING MANAGER [employer] Work Phone: Start: 12-25-2023 PULSE OXIMETRY, SPOT Abran Waller [employer] MARKETING MA[employer] Work Phone: Start: 12-25-2023 Glucose quantitative blood xcpt reagent strip Sherri Armstrong MD Work Phone: Start: 12-25-2023 PULSE OXIMETRY, SPOT Abran Waller [employer] MARKETING MANAGER[employer] Work Phone: Start: 12-25-2023 Glucose quantitative blood xcpt reagent strip Sherri Armstrong MD Work Phone: Start: 12-25-2023 PULSE OXIMETRY, SPOT Abran Waller [employer] MARKETING MANAGER[employer] Work Phone: Start: 12-25-2023 Glucose quantitative blood xcpt reagent strip Sherri Armstrong MD Work Phone: Start: 12-25-2023 PULSE OXIMETRY, SPOT Abran Waller [employer] MARKETING MANAGER[employer] Work Phone: Start: 12-25-2023 PULSE OXIMETRY, SPOT Abran Waller [employer] MARKETING MANAGER[employer] Work Phone: Start: 12-24-2023 Glucose quantitative blood xcpt reagent strip Sherri Armstrong MD Work Phone: Start: 12-24-2023 Renal function panel Abran Waller [employer] MARKETING MANAGER[employer] Work Phone: Start: 12-24-2023 PULSE OXIMETRY, ALICE Waller [employer] MARKETING MANAGER[employer] Work Phone: Start: 12-24-2023 Glucose quantitative blood xcpt reagent strip Sherri Armstrong MD Work Phone: Start: 12-24-2023 PULSE OXIMETRY, ALICE Waller [employer] MARKETING MANAGER[employer] Work Phone: Start: 12-24-2023 Glucose quantitative blood xcpt reagent strip Sherri Armstrong MD Work Phone: Start: 12-24-2023 PULSE OXIMETRY, ALICE Waller [employer] MARKETING MANAGER[employer] Work Phone: Start: 12-24-2023 Echo tthrc r-t 2d w/ wom-mode compl spec&colr d Rafi Waller [employer] MARKETING MANAGER[employer] Work Phone: Start: 12-24-2023 Glucose quantitative blood xcpt reagent strip Sherri Armstrong MD Work Phone: Start: 12-24-2023 PULSE OXIMETRY, ALICE Waller [employer] MARKETING MANAGER[employer] Work Phone: Start: 12-24-2023 Heparin assay Foster Nolan MD Work Phone: Start: 12-24-2023 PULSE OXIMETRY, ALICE Waller [employer] MARKETING MANAGER[employer] Work Phone: Start: 12-24-2023 PULSE OXIMETRY, ALICE Waller [employer] MARKETING MANAGER[employer] Work Phone: Start: 12-23-2023 Blood typing serolog ic rh (d) Rafi Waller [employer] MARKETING MANAGER[employer] Work Phone: Start: 12-23-2023 End: 12-23-2023 Renal function panel Rafi Waller [employer] MARKETING MANAGER [employer] Work Phone: Start: 12-23-2023 PULSE OXIMETRY, ALICE Waller [employer] MARKETING MANAGER[employer] Work Phone: Start: 12-23-2023 Glucose quantitative blood xcpt reagent strip Foster Nolan MD Work Phone: Start: 12-23-2023 PULSE OXIMETRY, ALICE Waller [employer] MARKETING MANAGER[employer] Work Phone: Start: 12-23-2023 Glucose quantitative blood xcpt reagent strip Foster Nolan MD Work Phone: Start: 12-23-2023 PULSE OXIMETRY, ALICE Waller [employer] MARKETING MANAGER[employer] Work Phone: Start: 12-23-2023 End: 12-23-2023 Cyanocobalamin vitamin b-12 Rafi lagunas [employer] MARKETING MANAGER[employer] Work Phone: Start: 12-23-2023 PULSE OXIMETRY, SPOT Abran Waller [employer] MARKETING MANAGER[employer] Work Phone: Start: 12-23-2023 Heparin assay Foster Nolan MD Work Phone: Start: 12-23-2023 PULSE OXIMETRY, SPOT Abran Waller [employer] MARKETING MANAGER[employer] Work Phone: Start: 12-23-2023 Heparin assay Foster Nolan MD Work Phone: Start: 12-23-2023 PULSE OXIMETRY, ALICE Waller [employer] MARKETING MANAGER[employer] Work Phone: Start: 12-22-2023 Glucose quantitative blood xcpt reagent strip Foster Nolan MD Work Phone: Start: 12-22-2023 Glucose quantitative blood xcpt reagent strip Foster Nolan MD Work Phone: Start: 12-22-2023 PULSE OXIMETRY, ALICE Waller [employer] MARKETING MANAGER[employer] Work Phone: Start: 12-22-2023 End: 12-22-2023 Assay of ferritin Rafi Cuevas Christin [employer] MARKETING MANAGER[employer] Work Phone: Start: 12-22-2023 Lipid panel Rafi johnsonen [employer] MARKETING MANAGER[employer] Work Phone: Start: 12-22-2023 PULSE OXIMETRY, SPOT Abran Waller CRM MARKETING MANAGER-[facility] Work Phone: Start: 12-22-2023 Glucose quantitative blood xcpt reagent strip Foster Nolan MD Work Phone: Start: 12-22-2023 Radiologic exam ches t 2 views Rafi Waller CRM MARKETING MANAGER-[facility] Work Phone: Start: 12-22-2023 Comprehensive metabo lic panel Rafi Waller CRM MARKETING MANAGER-[facility] Work Phone: Start: 12-22-2023 Ecg routine ecg w/le ast 12 lds trcg only w/o i&r Rafi Waller CRM MARKETING MANAGER-[facility] Work Phone: Start: 12-22-2023 End: 12-22-2023 PULSE OXIMETRY, SPOT Rafi Waller CRM MARKETING MANAGER -[facility] Work Phone: Start: 12-22-2023 Lipid 1996 panel - S teodoro or Plasma Foster Nolan MD Work Phone: Start: 10-24-2023 Renal function panel Mi casi Cabrera CRM MARKETING MANAGER-[facility], [facility] Work Phone: Start: 10-24-2023 Glucose quantitative blood xcpt reagent strip Melly Benítez MD Work Phone: Start: 10-23-2023 Glucose quantitative blood xcpt reagent strip Melly Benítez MD Work Phone: Start: 10-23-2023 Glucose quantitative blood xcpt reagent strip Melly Benítez MD Work Phone: Start: 10-23-2023 End: 10-23-2023 Renal function panel Italia Cabrera APRN-[facility], DNP Work Phone: Start: 10-23-2023 Glucose quantitative blood xcpt reagent strip Mario Heck MD Work Phone: Start: 10-22-2023 Glucose quantitative blood xcpt reagent strip Mario Heck MD Work Phone: Start: 10-22-2023 Glucose quantitative blood xcpt reagent strip Mario Heck MD Work Phone: Start: 10-22-2023 End: 10-22-2023 Renal function panel Italia Cabrera [employer] MARKETING MANAGER[employer], DNP Work Phone: Start: 10-22-2023 Glucose quantitative [...] End: 10-20-2023 Renal function panel Rafi Waller [employer] MARKETING MANAGER [employer] Work Phone: Start: 10-20-2023 Glucose quantitative blood [...] End: 10-18-2023 Renal function panel Rafi Waller [employer] MARKETING MANAGER [employer] Work Phone: Start: 10-18-2023 Glucose quantitative blood xcpt reagent strip Mario Heck MD Work Phone: Start: 10-18-2023 Glucose quantitative blood xcpt reagent strip Mario Heck MD Work Phone: Start: 10-18-2023 End: 10-18-2023 Heparin assay Jarrell aDle MD Work Phone: Start: 10-17-2023 Glucose quantitative blood xcpt reagent strip Mario Heck MD Work Phone: Start: 10-17-2023 End: 10-17-2023 Renal function panel Kimmie Sinclair [employer] MARKETING MANAGER[employer] Work Phone: Start: 10-17-2023 Glucose quantitative blood [...] Start: 10-16-2023 End: 10-16-2023 Renal function panel Kimmietorie Sinclair CRM MARKETING MANAGER[employer] Work Phone: Start: 10-16-2023 End: 10-16-2023 Glucose quantitative blood xcpt reagent strip Mario Heck MD Work Phone: Start: 10-16-2023 Spmtry w/vc expirato ry génesis w/wo mxml vol vntj Ru Elnea PA-C Work Phone: Start: 10-16-2023 Heparin assay Jarrell Dale MD Work Phone: Start: 10-16-2023 Radiologic exam ches t 2 views Catia L Mogus PA-C Work Phone: Start: 10-16-2023 Glucose quantitative blood xcpt reagent strip Mario Heck MD Work Phone: Start: 10-16-2023 Cul prsmptv pthgnc o rganism scrn w/[place] estimj Ru Coulterea PA-C Work Phone: Start: 10-16-2023 Natriuretic peptide Tra ci L Mogus PA-C Work Phone: Start: 10-16-2023 Ecg routine ecg w/le ast 12 lds trcg only w/o i&r Kimmie Sinclair [employer] MARKETING MANAGER[employer] Work Phone: Start: 10-16-2023 EXTRA URINE FITCH TUBE G race Dottie CRM MARKETING MANAGER[employer] ARCH[employer] Work Phone: Start: 10-16-2023 Urinalysis complete W Reflex Culture panel - Urine Kimmie Sinclair CRM MARKETING MANAGER[employer] ARCHIT[employer] Work Phone: Start: 10-16-2023 Urnls dip stick/tabl et reagent auto microscopy Kimmie Dottie CRM MARKETING MANAGER[employer] ARCH[employer] Work Phone: Start: 10-16-2023 Lipid 1996 panel - S teodoro or Plasma Inderjit Mejia MD PhD Work Phone: Start: 10-16-2023 Comprehensive metabo lic panel Jarrell Dale MD Work Phone: Start: 10-15-2023 Start: 10-15-2023 [facility] Angio Start: 10-15-2023 Ultrasonography of b ilateral kidneys Start: 10-14-2023 Plain chest X-ray Cholecystectomy Marine Ordeanne remy Tonsillectomy Marine Grier Plan of Treatment Date Care Activity Detail Author Start: 12-25-2024 Creatinine measurement Creatinine [facility] Start: 12-25-2024 Potassium measurement Potassium [facility] Start: 12-23-[address] [facility] Start: 12-21-2024 Lipid panel Lipid Panel [facility] Start: 10-23-2024 Creatinine measurement Creatinine [facility] Start: 10-23-2024 Potassium measurement Potassium [facility] Start: 10-15-2024 Lipid panel Lipid Panel [facility] Start: 10-13-[address] [facility] Start: 03-23-2024 Hemoglobin A1c measurement Gabriela betes: Hemoglobin A1C [facility] Start: 03-18-2024 End: 03-18-2024 Patient encounter procedure 03/18/2024 3:20 PM EST Office Visit [facility] [address] [place] [id number] Ann Henao MD [address] [place] [address] [facility] Start: 03-13-2024 End: 03-13-2024 Patient encounter procedure 03/13/2024 2:15 PM EST Procedure Visit [facility] [address] [place] [address] Fatemeh Coleman DPM [address] [place], [place] [id number] [facility] Start: 01-16-2024 Hemoglobin A1c measurement Gabriela betes: Hemoglobin A1C [facility] Start: 01-01-2024 End: 01-01-2024 Patient encounter procedure [facility] Start: 12-06-2023 End: 12-06-2023 Patient encounter procedure 12/06/2023 10:40 AM EDT Office Visit [facility] [address] [facility] [address] [place] [address] Ron Sharma MD [address] [facility] [address] [place] [address] [facility] Start: 11-27-2023 End: 11-12-2024 Magnesium [Mass/volume] in Serum or Plasma Magnesium Lab Routine Edema, unspecified type Expected: 11/27/2023 (Approximate), Expires: 11/12/2024 [facility] Work Phone: Comment on above: Expected: 11/27/2023 (Approximate), Expires: 11/12/2024 Start: 11-27-2023 End: 11-12-2024 Renal function 2000 panel - Serum or Plasma Renal function panel Lab Routine Edema, unspecified type Expected: 11/27/2023 (Approximate), Expires: 11/12/2024 [facility] Service Area Work Phone: Comment on above: Expected: 11/27/2023 (Approximate), Expires: 11/12/2024 Start: 11-13-2023 End: 11-13-2023 Patient encounter procedure 11/13/2023 11:00 AM EDT Office Visit [facility] [address] [address] [facility] [address] [place] [address] [place] [address] [place] [address] [facility] Start: 10-21-2023 COVID-19 Vaccine ( season) COVID-19 Vaccine ( season) [facility] Start: 10-21-2023 COVID-19 Vaccine ( season) COVID-19 Vaccine ( season) [facility] Start: 10-21-2023 Influenza vaccination Influenza Vacc ine (#1) [facility] Start: 10-15-2023 [facility] Start: 10-15-2023 [facility] Start: 10-14-2023 [facility] Start: 10-14-2023 Hospital admission [facility] Start: 10-14-2023 Referral to mining speculator [facility] Start: 08-02-2019 Pneumococcal Vaccine : 65+ Years (2 of 2 - PCV) Pneumococcal Vaccine: 65+ Years (2 of 2 - PCV) [facility] Start: 11-30-2018 Pneumococcal Vaccine : 65+ Years (2 of 2 - PCV) Pneumococcal Vaccine: 65+ Years (2 of 2 - PCV) [facility] Start: 2014 RSV High Risk: (Elde rly (60+) or Population) (1 - Risk 60-74 years 1-dose series) RSV High Risk: (Elderly (60+) or Population) (1 - Risk 60-74 years 1-dose series) [facility] Start: 2014 RSV patient s and/or patients aged 60+ years (1 - 1-dose 60+ series) RSV patients and/or patients aged 60+ years (1 - 1-dose 60+ series) [facility] Start: 2004 Zoster Vaccines (1 of 2) Zoste r Vaccines (1 of 2) [facility] Start: 1976 DTaP/Tdap/Td Vaccine s (1 - Tdap) DTaP/Tdap/Td Vaccines (1 - Tdap) [facility] Start: 1973 Urine screening for protein Diabetes: Urine Protein Screening [facility] Start: 1972 Hepatitis C screening Hepatitis C Sc reeturner [facility] Start: 1964 Glaucoma screening Diabetes: R etinopathy Screening [facility] Start: [address] [facility] Start: 1955 Medicare Annual Well ness Visit Medicare Annual Wellness Visit (AWV) [facility] Start: 1954 Screening for malign ant neoplasm of colon [facility] End: 10-19-[address] [facility] Work Phone: Comment on above: Once for 1 Occurrenc es starting 10/19/2023 until 10/19/2023 CBC panel - Blood by Automated count CBC Lab Routine Evening draw (Lab) until discontinued starting 12/23/2023, 4 completed [facility] Work Phone: Comment on above: Evening draw (Lab) u ntil discontinued starting 12/23/2023, 4 completed Colonoscopy study Colonoscopy Di agnostic Endoscopy Routine Antiplatelet or antithrombotic long-term use Once as needed for 1 Occurrences starting 12/25/2023 [facility] Work Phone: Comment on above: Once as needed for 1 Occurrences starting 12/25/2023 Colonoscopy study Colonoscopy Di agnostic Endoscopy Routine Antiplatelet or antithrombotic long-term use 12/26/2023 5:44 PM EST [facility] Work Phone: End: 10-23-2023 Determination of physical activity tolerance Cardiac rehab evaluation Card Rehab Routine Once for 1 Occurrences starting 10/23/2023 until 10/23/2023 [facility] Work Phone: Comment on above: Once for 1 Occurrenc es starting 10/23/2023 until 10/23/2023 ECG 12 Lead [facility] Work Phone: Electrocardiogram, 1 2-lead PRN ACS symptoms Electrocardiogram, 12-lead PRN ACS symptoms ECG Routine As needed until discontinued starting 12/22/2023, 1 completed [facility] Work Phone: Comment on above: As needed until disc ontinued starting 12/22/2023, 1 completed Electrocardiogram, 1 2-lead PRN ACS symptoms Electrocardiogram, 12-lead PRN ACS symptoms ECG Routine 12/26/2023 7:10 PM EST [facility] Work Phone: Electrocardiogram, 1 2-lead PRN ACS symptoms Electrocardiogram, 12-lead PRN ACS symptoms ECG Routine As needed until discontinued starting 10/16/2023 [facility] Work Phone: Comment on above: As needed until disc ontinued starting 10/16/2023 End: 12-25-2023 Glucose [Mass/volume] in Serum or Plasma POCT Glucose Point of Care Testing - Docked Device Routine 4 times daily before meals and at bedtime for 3 Days starting 12/22/2023 until 12/25/2023, 11 completed [facility] Work Phone: Comment on above: 4 times daily before meals and at bedtime for 3 Days starting 12/22/2023 until 12/25/2023, 11 completed Glucose [Mass/volume ] in Serum or Plasma POCT Glucose Point of Care Testing - Docked Device Routine As needed (Lab) until discontinued starting 10/20/2023 [facility] Work Phone: Comment on above: As needed (Lab) unti l discontinued starting 10/20/2023 Magnesium [Mass/volu me] in Serum or Plasma Magnesium Lab Routine Evening draw (Lab) until discontinued starting 12/23/2023, 4 completed [facility] Work Phone: Comment on above: Evening draw (Lab) u ntil discontinued starting 12/23/2023, 4 completed Patient Education Heart Failure, Adult (DC) [facility] Work Phone: Pulse oximetry, spot Pulse oxime try, spot Respiratory Care Routine Every 4 hours until discontinued starting 12/22/2023, 31 completed [facility] Work Phone: Comment on above: Every 4 hours until discontinued starting 12/22/2023, 31 completed Renal function 2000 panel - Serum or Plasma Renal Function Panel Lab Routine Evening draw (Lab) until discontinued starting 12/23/2023, 4 completed [facility] Work Phone: Comment on above: Evening draw (Lab) u ntil discontinued starting 12/23/2023, 4 completed Immunizations Immunization Date Immunization Notes Care Provider Tucker pearson 12-10-2023 influenza virus vacc ine, H5N1, A/[place]/ (national stockpile) Foster Nolan MD Work Phone: [facility] Work Phone: 12-10-2023 influenza virus vacc ine, unspecified formulation LILLIAM PHAM [facility] 12-10-2023 Seasonal trivalent influenza vaccine, adjuvanted, preservative free Foster Nolan MD Work Phone: [facility] Work Phone: 03-05-2021 Influenza, injectabl e, Madin Casi Canine Kidney, preservative free, quadrivalent Sahil Wiley MD Work Phone: [facility] Work Phone: 03-05-2021 SARS-CoV-2 (COVID-19 ) mRNA BNT-162b2 vax LILLIAM ANKIT [facility] 03-05-2021 influenza virus vacc ine, unspecified formulation Inderjit Mejia MD PhD Work Phone: [facility] 07-15-2020 SARS-CoV-2 (COVID-19 ) mRNA BNT-162b2 vax LILLIAM ANKIT [facility] 06-22-2020 SARS-CoV-2 (COVID-19 ) mRNA BNT-162b2 vax LILLIAM ANKIT [facility] 12-21-2019 influenza virus vacc ine, unspecified formulation LILLIAM PHAM [facility] 12-21-2019 influenza, injectabl e, quadrivalent, contains preservative Sahil Wiley MD Work Phone: [facility] Work Phone: 11-30-2017 influenza virus vacc ine, unspecified formulation LILLIAM PHAM [facility] 11-30-2017 Influenza, injectabl e, Madin Casi Canine Kidney, preservative free, quadrivalent Sahil Wiley MD Work Phone: [facility] Work Phone: 11-30-2017 pneumococcal polysaccharide vaccine, 23 valent Sahil Wiley MD Work Phone: [facility] Work Phone: Payers Date Payer Category Payer Medicare [id number] 2023 Self-pay 2020 Medicare [id number] 2020 Medicare [id number] 1954 Unknown [id number] 2.16.8 [id number] 1954 Unknown [id number] 2.16.84 [id number] 1954 Unknown [id number] 2.16.8 [id number] 1954 Unknown [id number] 2.16.8 [id number] 1954 Unknown [id number] 2.16.8 [id number] 1954 Unknown [id number] 2.16.8 [id number] 1954 Unknown [id number] 2.16.8 [id number] 1954 Unknown [id number] 2.16.8 [id number] 1954 Unknown [id number] 2.16.8 [id number] 1954 Unknown [id number] 2.16.8 [id number] 1954 Unknown [id number] 2.16.8 [id number] 1954 Unknown [id number] 2.16.8 [id number] 1954 Unknown [id number] 2.16.8 [id number] Unknown [employer]/LINK [id number] Unknown [id number] 2.16.8 [id number] Social History Date Type Detail Facility Start: 10-14-2023 End: 02-26-2024 Tobacco smoking status NHIS Never smoked tobacco (finding) [facility] Start: 1955 Sex Assigned At Male [facility] Tobacco smoking status Ex-smoker (finding ) [facility] Tobacco smoking status Never [facility] Start: 10-16-2023 End: 11-29-2023 Sex [facility]igned At [facility] Start: 1955 Sex assigned at Not on file U [facility] Work Phone: Start: 10-15-2023 End: 11-29-2023 Tobacco use and exposure Smokeless tobacco non-user [facility] Work Phone: Start: 11-29-2023 Alcoholic beverage intake Ex-drinker (finding) [facility] Start: 10-16-2023 End: 11-29-2023 History of Social function [facility] Start: 11-13-2023 End: 12-22-2023 Alcoholic beverage intake Current drinker of alcohol (finding) [facility] Work Phone: Has the [employer], or [employer] threatened to shut off services in your home in past 12Mo No [facility] How often to you hav e a drink containing alcohol? Never [facility] Work Phone: (I/We) worried ivy mendoza (my/our) food would run out before (I/we) got money to buy more. Never true [facility] Work Phone: Start: 11-02-2023 Alcohol Comment [facility] Work Phone: Start: 10-05-2023 End: 12-23-2023 Exposure to SARS-CoV-2 (event) Not sure [facility] Work Phone: How often to you hav e a drink containing alcohol? Monthly or less [facility] Work Phone: How many standard drinks containing alcohol do you have on a typical day? 1 or 2 [facility] Work Phone: How hard is it for y ou to pay for the very basics like food, housing, medical care, and heating Not very hard [facility] Medical Equipment Procedure Code Equipment Code Equipment Origin al Text Equipment Identifier Dates Stent, Capac Fron tier Lisy, 3.50 X 15rx - [id number] Start: 10-23-2023 Stent, Synergy X d, Mr Us, 3.00 X 48mm - [id number] Start: 10-23-2023 Goals Date Patient Goal Desired Activity /State Functional Status Date Assessment Result Facility 02-26-2024 Functional Status N/A [facility] [place] 11-22-2023 Functional Status N/A [facility] Julius 10-16-2023 Are you deaf, or do you have serious difficulty hearing No 10/16/2023 8:24 AM Pablo Leary, RN No [facility] 10-16-2023 Are you blind, or do you have serious difficulty seeing, even when wearing glasses No 10/16/2023 8:24 AM Pablo Leary, RN No [facility] Work Phone: 10-16-2023 Do you have serious difficulty walking or climbing stairs No 10/16/2023 8:24 AM Pablo Leary, RN No [facility] Work Phone: 10-16-2023 Do you have difficul ty dressing or bathing No 10/16/2023 8:24 AM Pablo Leary, RN No [facility] Work Phone: 10-16-2023 Because of a physica l, mental, or emotional condition, do you have difficulty doing errands alone such as visiting a physician's office or shopping No 10/16/2023 8:24 AM Pablo Leary, RN No [facility] Work Phone: 10-15-2023 Functional status Patient at [facility] Work Phone: Mental Status Date Assessment Result Facility 10-16-2023 Because of a physica l, mental, or emotional condition, do you have serious difficulty concentrating, remembering, or making decisions No 10/16/2023 8:24 AM Pablo Leary, RN No [facility] Work Phone: 10-15-2023 Cognitive function Cognitive Sta tus Patient at Baseline [facility] Work Phone: Clinical Notes 10-14-2023 to 02-26-2024 Significant Event - Bela Rubalcava MD - 12/27/2023 1:31 PM ESTSignificant Event - Bela Rubalcava MD - 12/27/2023 1:31 PM ESTCare Plan - Lulú Rosas RN - 12/26/2023 9:55 PM ESTDisqi Instructions Note Date & Type Note Facility [...] including vitamins, herbs, eye drops, creams, and tduo-qce-cexbupt medicines. Any problems you or family members [...] provider tells you to take them. Taking myuh-tyo-numdsay medicines, vitamins, herbs, and supplements. Tests You [...] Follow these instructions at home: Medicines Take dmgk-ocm-zebotuh and prescription medicines only as told by [...] provider. Document Revised: 10/19/2021 Document Reviewed: 09/17/2020 [employer] Patient Education 2023 [employer]. Follow Up Care 02/21/2024 09:23:36 With:[facility] Address: [address] [place] [place] [address] Business (1) When: Unknown Comments:our magnet maker will be contacting you for follow-up [facility] Carie 02-26-2024 Note Patient Education Urology Cystoscopy Cystoscopy [...] including vitamins, herbs, eye drops, creams, and ldjg-mek-ydupbcq medicines. ??? Any problems you or family [...] tells you to take them. ??? Taking tcrt-dgi-igmjmcr medicines, vitamins, herbs, and supplements. Tests You [...] provider can clearly examine your bladder clark. ??? Your doctor will look at the [...] these instructions at home: Medicines ??? Take poze-tvm-ovvpwen and prescription medicines only as told by [...] (biopsy) during your (more content not included)... [facility] 12-27-2023 Note Formatting of this n ote [...] [place] [phone]. Thank you. [facility] Work Phone: 12-27-2023 Miscellaneous Notes EGD [...] [place] [phone]. Thank you. The patient's goals for the shift include The clinical goals for the shift include safety Over the shift, the patient did not make progress toward the following goals. Problem: Safety - Adult Goal: Free from fall injury Outcome: Progressing Flowsheets (Taken 12/26/2023 5338) Free from fall injury: Based on caregiver [...] to Interventional Cardiology for consideration for RCA SUPERVISOR FEED MILL given mildly elevated Troponin. At this time, it appears that patient's Troponin elevation is likely from new anemia, which also puts into question whether he can be safely be placed on DAPT for 2 months without interruption. His new anemia is also more likely a contributing factor to his syncope as opposed to his RCA SUPERVISOR FEED MILL. GI is recommending EGD/C-scope. At this time [...] to 50%), and OA who presented to [facility] 12/18 after being found down by his [...] admitted to ICU pending bed availability at [facility]. Upon arrival to [facility] patient denies having any chest pain [...] with Dr. Wiley outpatient for consideration of SUPERVISOR FEED MILL PCI to RCA. At follow up appointment [...] 12/31 to evaluate candidacy for PCI to SUPERVISOR FEED MILL of RCA. Patient transitioned from home diabetes [...] barriers include . documented in this encounter [facility] Work Phone: 12-27-2023 Hospital course Narrative Discharge Diagnosis NSTEMI (non-ST elevated myocardial infarction) (Multi) Issues Requiring Follow-Up - Outpatient follow ups with vascular surgery, interventional cardiology, GI, and primary care. - Need for polyp removal with GI - timing of procedure is undecided but requires holding antiplatelet therapy to minimize bleeding risk but also remaining vigilant about stent patency. assayer helper has been informed of situation. - Discuss comprehensive care including diabetes management with PCP. Test Results Pending At Discharge Pending Labs No current pending labs. Hospital Course Italia Allen is a 68 y.o. male with a PMHx of HLD, HTN, T2DM, HFrEF (LVEF 45 to 50%), and OA who presented to [facility] 12/18 after being found down by his [...] admitted to ICU pending bed availability at [facility]. Upon arrival to [facility] patient denies having any chest pain [...] 10/14-10/23 for ADHF as well as NSTEMI. [facility] showed 3VD, evaluated by CTS for CABG evaluation, but found to not be a surgical candidate due to patients labile emotional/mental state, and concerns about recovery post surgery, decision was made to pursue PCI. Patient was taken for staged PCI on 10/22, IVUS guided PCI to Lcx and LAD with plan to follow up with Dr. Wiley outpatient for consideration of SUPERVISOR FEED MILL PCI to RCA. At follow up appointment [...] 12/31 to evaluate candidacy for PCI to SUPERVISOR FEED MILL of RCA. Patient transitioned from home diabetes [...] Center 01/01/2024 11:30 AM Sahil Wiley MD [id number] Academic 03/18/2024 3:20 PM Ann Henao MD [id number] [place] Yevgeniy Navarro PA-C Cosigned by Sherri Armstrong [...] Sherri Armstrong MD documented in this encounter [facility] Work Phone: 12-27-2023 Nurse Note Per pt his son will pick him up from the hospital and take him home. Pt state that we can aim for a 1700 hop picker today since his son works until 1430. [facility] 12-27-2023 Nurse Note Per pt his son will pick him up from the hospital and take him home. Pt state that we can aim for a 1700 hop picker today since his son works until 1430. documented in this encounter [facility] Work Phone: 12-27-2023 Hospital Discharge instructions [...] will need to be discussed with your home theatre technician, Dr. Wiley due to the need to hold your Prasugrel. If you have any bleeding with bowel movements or bleeding with vomiting, please return to the emergency room for evaluation. Monitor for signs of increased fatigue. Follow up with your mining speculator as previously instructed or sooner if any issues arise. Several new medications have been sent to [facility] in [place], [place] for pickup. Avoid non-steroidal antiinflammatory drugs [...] Everywhere.Low blood sugar in people with diabetes (Swazi)Acid reflux and GERD in adults (Swazi)Atherosclerosis (Swazi)documented in this encounter [facility] Work Phone: 12-26-2023 Plan of care [...] risk factors Instruct family/caregiver on patient safety [facility] 12-26-2023 Note Formatting of this n ote might be different from the original. Patient complaining of 3-4/10 chest pressure, below sternum/epigastic he recently returned from his EGD/Colonoscopy. Obtained EKG which was NSR and similar to previous. Vitals reviewed. Will c/w current regimen, night fellow notified to follow up overnight. [facility] Work Phone: 12-26-2023 History of Present illness Narrative Subjective Data: - colonoscopy/egd today - plan for o/p Dr. Wiley apt to discuss SUPERVISOR FEED MILL - likely home tomorrow Objective Data: Last [...] result verified on 12/22/2023 1726 on specimen/case [id number] called with component [facility] for procedure Troponin I, High Sensitivity [...] change was found Confirmed by Mere Urban ([id number]) on 11/14/2023 6:48:02 PM ECG 12 lead [...] to 50%), and OA who presented to [facility] 12/18 after being found down by his son. Patient was placed on Heparin drip for elevated troponin of 654 which up trended to 1723 and admitted to ICU pending bed availability at [facility]. Admitted to HVI service for ADHF and NSTEMI management. NSTEMI CAD/HLD - presented to OSH s/p syncopal event, found to be hypoglycemic - OSH Troponin peak 1723, admit HS Troponin 492 ->366 - [facility] 10/14: severe 3V CAD, 70 to 80% prox to mid LAD, 90% marginal 1, and SUPERVISOR FEED MILL of the RCA with collateral filling the distal RCA demonstrating vessel appears to be a good target for revascularization. (Images in Syngo) - evaluated by CTS/Dr. Ruiz, previous admit, given patients labile emotional/mental state did not pursue CABG - 10/22 s/p IVUS guided and orbital atherectomy assisted PCI, LISY to ostial-prox LAD and LIYS to Circ by Dr Wiley with plan for outpt consideration of SUPERVISOR FEED MILL PCI to the RCA - appointment with Dr. Wiley 11/12, deferred PCI given pt was not medically optimized - Lipid panel: Chol 102, HDL 26, LDL 34, Tri 185 - can discuss SUPERVISOR FEED MILL as o/p per interventional note - stop heparin gtt - cont ASA, statin, coreg - per GI, no need to hold Effient prior to EGD and colonoscopy today Acute on chronic systolic and diastolic heart failure, HFmrEF - 45-50% - etiology: likely ICM, reports a 20 year history of CHF with unknown EF - 09/2023 TTE ([facility]): EF of 45-50%, no significant valvular disease. [...] 2016 was normal - Renal US at [facility] on 10/14 - no acute findings - [...] labile emotions, varied between tearful/anger/withdrawn - grief/certified alcohol and drug counselor services offered-> patient declines - started on sertraline 50 mg daily 11/08, pt reports no improvement - home sertraline increased to 100 mg daily DVT prophylaxis: lovenox Dispo pending PCI evaluation, GI consult Code Status: Full Code NOK: Antony Allen, son: [phone] Patient seen and discussed with ANA M [...] Payer-MEDICARE Potential Barriers: None ADOD: 12-27-2023 Pablo ALEJANDRA [phone] 12/25/23 Transitional Care Coordination Progress Note: Patient discussed during interdisciplinary rounds. Team members present: SWAPNIL SERRANO MD Plan per Medical/Surgical team: PCI evaluation, GI consult Discharge disposition: Home Status-Inpatient Payer- MEDICARE Potential Barriers: None ADOD: 12-27-2023 Pablo Berman RN TCC [phone] [facility] [place] CONSULT FOLLOW-UP Reason For Consult: acute anemia, [...] mg, 81 mg, oral, Daily, Rafi Waller APRN-ENTERPRISE APPLICATION ARCHITECT, 81 mg at 12/24/23 0808 atorvastatin (Lipitor) tablet 80 mg, 80 mg, oral, Nightly, Rafi Waller APRN-ENTERPRISE APPLICATION ARCHITECT, 80 mg at 12/24/232203 bumetanide (Bumex) tablet 2 mg, 2 mg, oral, BID, Zoila Shane APRN-ENTERPRISE APPLICATION ARCHITECT, 2 mg at 12/24/23 1608 carvedilol (Coreg) tablet 25 mg, 25 mg, oral, BID, Rafi Waller APRN-ENTERPRISE APPLICATION ARCHITECT, 25 mg at 12/24/232203 [Held by provider] celecoxib (CeleBREX) capsule 200 mg, 200 mg, oral, Daily, Rafi Waller APRN-[place] dextrose 50 % injection 10-50 mL, 10-50 mL, intravenous, q15 min PRN, ANA M Baker diclofenac sodium (Voltaren) 1 % gel 4 g, 4 g, Topical, 4x daily PRN, ANA M Baker docusate sodium (Colace) capsule 100 mg, 100 mg, oral, BID, Rafi Waller APRN-ENTERPRISE APPLICATION ARCHITECT, 100 mg at 12/22/23 1157 enoxaparin (Lovenox) syringe 40 mg, 40 mg, subcutaneous, q24h, Zoila Shane APRN-ENTERPRISE APPLICATION ARCHITECT, 40 mg at 12/24/23 1226 glucagon HCL [...] injection 200 mg, 200 mg, intravenous, Daily, Rafi Waller APRN-[place], 200 mg at 12/24/23 0601 lidocaine 4 % patch 1 patch, 1 patch, transdermal, Daily, ANA M Baker lisinopril tablet 40 mg, 40 mg, oral, Daily, Rafi Waller APRN-ENTERPRISE APPLICATION ARCHITECT, 40 mg at 12/24/23 0808 melatonin tablet 5 mg, 5 mg, oral, Nightly PRN, ANA M Baker pantoprazole (ProtoNix) injection 40 mg, 40 mg, intravenous, BID, Zoila Shane APRN-ENTERPRISE APPLICATION ARCHITECT, 40 mg at 12/24/23 2301 perflutren protein [...] tablet 50 mg, 50 mg, oral, Daily, ANA M Em sulfur hexafluoride microsphr (Lumason) injection 24.28 mg, 2 mL, intravenous, Once in imaging, ANA M Baker traMADol (Ultram) tablet 50 mg, 50 mg, oral, q8h PRN, ANA M Baker, 50 mg at 12/23/232119 Labs Results for orders placed or performed [...] do not hesitate to contact me on Jusp Chat or page [phone] if there are any further questions between the weekday hours of 7 AM - 5 PM. -After hours, on weekends, and on holidays, [place] [phone]. Thank you. Bela Rubalcava MD Gastroenterology and Hepatology Fellow [facility] Cosigned by Trevon Cullen MD at [...] result verified on 12/22/2023 1726 on specimen/case [id number] called with component [facility] for procedure Troponin I, High Sensitivity [...] change was found Confirmed by Mere Urban ([id number]) on 11/14/2023 6:48:02 PM ECG 12 lead [...] to 50%), and OA who presented to [facility] 12/18 after being found down by his son. Patient was placed on Heparin drip for elevated troponin of 654 which up trended to 1723 and admitted to ICU pending bed availability at [facility]. Admitted to HVI service for ADHF and NSTEMI management. NSTEMI CAD/HLD - presented to OSH s/p syncopal event, found to be hypoglycemic - OSH Troponin peak 1723, admit HS Troponin 492 ->366 - [facility] 10/14: severe 3V CAD, 70 to 80% prox to mid LAD, 90% marginal 1, and SUPERVISOR FEED MILL of the RCA with collateral filling the [...] Wiley with plan for outpt consideration of SUPERVISOR FEED MILL PCI to the RCA - appointment with [...] CHF with unknown EF - 09/2023 TTE ([facility]): EF of 45-50%, no significant valvular disease. [...] 2016 was normal - Renal US at [facility] on 10/14 - no acute findings - [...] labile emotions, varied between tearful/anger/withdrawn - grief/certified alcohol and drug counselor services offered-> patient declines - started on sertraline 50 mg daily 11/08, pt reports no improvement - home sertraline increased to 100 mg daily DVT prophylaxis: lovenox Dispo pending PCI evaluation, GI consult Code Status: Full Code NOK: Antony Allen, son: [phone] Patient seen and discussed with Dr. Armstrong [...] result verified on 12/22/2023 1726 on specimen/case [id number] called with component [facility] for procedure Troponin I, High Sensitivity [...] change was found Confirmed by Mere Urban ([id number]) on 11/14/2023 6:48:02 PM ECG 12 lead [...] to 50%), and OA who presented to [facility] 12/18 after being found down by his son. Patient was placed on Heparin drip for elevated troponin of 654 which up trended to 1723 and admitted to ICU pending bed availability at [facility]. Admitted to HVI service for ADHF and NSTEMI management. NSTEMI CAD/HLD - presented to OSH s/p syncopal event, found to be hypoglycemic - OSH Troponin peak 1723, admit HS Troponin 492 ->366 - [facility] 10/14: severe 3V CAD, 70 to 80% prox to mid LAD, 90% marginal 1, and SUPERVISOR FEED MILL of the RCA with collateral filling the [...] Wiley with plan for outpt consideration of SUPERVISOR FEED MILL PCI to the RCA - appointment with [...] CHF with unknown EF - 09/2023 TTE ([facility]): EF of 45-50%, no significant valvular disease. [...] 2016 was normal - Renal US at [facility] on 10/14 - no acute findings - [...] labile emotions, varied between tearful/anger/withdrawn - grief/certified alcohol and drug counselor services offered-> patient declines - started on sertraline 50 mg daily 11/08, pt reports no improvement - home sertraline increased to 100 mg daily DVT prophylaxis: lovenox Dispo pending PCI evaluation, GI consult Code Status: Full Code NOK: Antony Allen, son: [phone] Seen and discussed with Dr. Patti Shane APRN-[place] Cosigned by Sherir Armstrong MD at 12/24/2023 12:11 PM EST [...] Barriers: None ADOD: 12-25-2023 Pablo Berman RN TCC [phone] Discharge Planning Note: Italia Allen is a [...] result verified on 12/22/2023 1726 on specimen/case [id number] called with component [facility] for procedure Troponin I, High Sensitivity [...] change was found Confirmed by Mere Urban ([id number]) on 11/14/2023 6:48:02 PM ECG 12 lead [...] to 50%), and OA who presented to [facility] 12/18 after being found down by his son. Patient was placed on Heparin drip for elevated troponin of 654 which up trended to 1723 and admitted to ICU pending bed availability at [facility]. Admitted to HVI service for ADHF and NSTEMI management. NSTEMI CAD/HLD - presented to OSH s/p syncopal event, found to be hypoglycemic - OSH Troponin peak 1723, admit HS Troponin 492->366 - [facility] 10/14: severe 3V CAD, 70 to 80% prox to mid LAD, 90% marginal 1, and SUPERVISOR FEED MILL of the RCA with collateral filling the [...] Wiley with plan for outpt consideration of SUPERVISOR FEED MILL PCI to the RCA - appointment with Dr. Wiley 11/12, deferred PCI given pt was not medically optimized - Lipid panel: Chol 102, HDL 26, LDL 34, Tri 185 - consult Int Cards/Dr. Wiley for evaluation of PCI to SUPERVISOR FEED MILL RCA once medically optimized - cont Heparin [...] CHF with unknown EF - 09/2023 TTE ([facility]): EF of 45-50%, no significant valvular disease. [...] 2016 was normal - Renal US at [facility] on 10/14 - no acute findings - [...] emotions, varied between tearful/anger/withdrawn - grief/ certified alcohol and drug counselor services offered-> patient declines - started on sertraline 50 mg daily 11/08, pt reports no improvement - increase home sertraline to 100 mg daily DVT prophylaxis: Heparin drip Dispo: pending further diuresis, PCI evaluation Code Status: Full Code NOK: Antony Allen, son: [phone] Seen and discussed with attending Dr. Nolan Peripheral IV 12/22/23 20 G Right Antecubital (Active) Site Assessment Clean;Intact;Dry 12/23/23 0753 Dressing Type Transparent 12/23/23 0753 Line Status Flushed;Saline locked 12/23/23 0753 Dressing Status Clean;Dry;Occlusive 12/23/23 0753 Number of days: 1 Rafi Waller, CRM MARKETING MANAGER-ENTERPRISE APPLICATION ARCHITECT I conducted a shared care visit with [...] a later time documented in this encounter [facility] Work Phone: 12-26-2023 Plan of care note The patient's goals for the shift include The clinical goals for the shift include patient will remain free of S&S of bleeding Over the shift, the patient did not make progress toward the following goals. Barriers to progression include none. 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s to address these barriers include none. [facility] 12-25-2023 Plan of care note The patient's [...] Progressing Goal: Promote skin healing Outcome: Progressing [facility] 12-25-2023 Plan of care note The patient's goals for the shift include The clinical goals for the shift include pt will remain HDS throughout shift Over the shift, the patient did not make progress toward the following goals. Barriers to progression include none. 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s to address these barriers include none. [facility] Work Phone: 12-24-2023 Plan of care note The patient's goals for the shift include The clinical goals for the shift include pt will remain HDS throughout shift Over the shift, the patient did make progress toward the following goals. [facility] Work Phone: 12-24-2023 Plan of care note Patient reviewed with Dr. Wiley. Ultimately had recent PCI and now admitted with syncope with newly reduced Hgb to the mid 7s. Primary team reaching out to Interventional Cardiology for consideration for RCA SUPERVISOR FEED MILL given mildly elevated Troponin. At this time, it appears that patient's Troponin elevation is likely from new anemia, which also puts into question whether he can be safely be placed on DAPT for 2 months without interruption. His new anemia is also more likely a contributing factor to his syncope as opposed to his RCA SUPERVISOR FEED MILL. GI is recommending EGD/C-scope. At this time there is no urgency for RCA PCI. Therefore, we would recommend further Hgb optimization and this case can be rediscussed once GI work up is complete and patient appears to be able to take atleast 2 months of DAPT safely. [facility] Work Phone: 12-24-2023 Consult note Associated Order (s): IP CONSULT TO GASTROENTEROLOGY [facility] [place] INITIAL CONSULT NOTE Reason For Consult: anemia, [...] Stent- Coronary; Surgeon: Sahil Wiley MD; Location: [place] [address] Cardiac Bladder Trimmer; Service: Cardiovascular; Laterality: N/A; Allergies: No Known [...] redirect to the Timeline version of the MyWave SmartLink. Intake/Output Summary (Last 24 hours) at [...] mg, 2 mg, oral, BID, Zoila Shane APRN-ENTERPRISE APPLICATION ARCHITECT carvedilol (Coreg) tablet 25 mg, 25 mg, oral, BID, Rafi Waller APRN-ENTERPRISE APPLICATION ARCHITECT, 25 mg at 12/24/23 0808 [Held by [...] injection 200 mg, 200 mg, intravenous, Daily, Rafi Waller APRN-ENTERPRISE APPLICATION ARCHITECT, 200 mg at 12/24/23 0601 lidocaine 4 % patch 1 patch, 1 patch, transdermal, Daily, ANA M Baker lisinopril tablet 40 mg, 40 mg, oral, Daily, Rafi Waller APRN-[place], 40 mg at 12/24/23 0808 melatonin tablet 5 mg, 5 mg, oral, Nightly PRN, Rafi Waller APRN-[place] pantoprazole (ProtoNix) EC tablet 40 mg, 40 mg, oral, Daily before breakfast, Rafi Waller APRN-[place], 40 mg at 12/24/23 0603 polyethylene glycol (Glycolax, Miralax) packet 17 g, 17 g, oral, Daily PRN, Rafi Cuevas JUAN RAMON WallerN-ENTERPRISE APPLICATION ARCHITECT prasugrel (Effient) tablet 10 mg, 10 mg, oral, Daily, Rafi Cuevas Christin CRM MARKETING MANAGER-ENTERPRISE APPLICATION ARCHITECT, 10 mg at 12/24/23 0809 sertraline (Zoloft) tablet 100 mg, 100 mg, oral, Daily, Rafi Cuevas JUAN RAMON WallerN-ENTERPRISE APPLICATION ARCHITECT, 100 mg at 12/24/23 0808 spironolactone (Aldactone) tablet 25 mg, 25 mg, oral, Daily, Rafi Cuevas JUAN RAMON WallerN-ENTERPRISE APPLICATION ARCHITECT, 25 mg at 12/24/23 0808 traMADol (Ultram) tablet 50 mg, 50 mg, oral, q8h PRN, Rafi Cuevas JUAN RAMON WallerN-ENTERPRISE APPLICATION ARCHITECT, 50 mg at 12/23/23 2120 Labs Results [...] not hesitate to contact us again on Jusp Chat [place] [phone] between the weekday hours of 7 AM - 5 PM. If there is an urgent concern during the weekend, after-hours, or holidays; then [place] [phone]. Thank you. Bela Rubalcava MD Gastroenterology and Hepatology Fellow [facility] Cosigned by Trevon Cullen MD at [...] decision making as documented in the note. [facility] Work Phone: 12-24-2023 Consult note Associated Order (s): IP CONSULT TO GASTROENTEROLOGY [facility] [place] INITIAL CONSULT NOTE Reason For Consult: anemia, [...] Stent- Coronary; Surgeon: Sahil Wiley MD; Location: [place] [address] Cardiac Bladder Trimmer; Service: Cardiovascular; Laterality: N/A; Allergies: No Known [...] redirect to the Timeline version of the MyWave SmartLink. Intake/Output Summary (Last 24 hours) at [...] 975 mg, oral, q6h PRN, Rafi Waller CRM MARKETING MANAGER-ENTERPRISE APPLICATION ARCHITECT aspirin chewable tablet 81 mg, 81 mg, oral, Daily, Rafi Waller APRN-ENTERPRISE APPLICATION ARCHITECT, 81 mg at 12/24/23 0808 atorvastatin (Lipitor) [...] injection 200 mg, 200 mg, intravenous, Daily, Rafi Waller APRN-[place], 200 mg at 12/24/23 0601 lidocaine 4 % patch 1 patch, 1 patch, transdermal, Daily, ANA M Baker lisinopril tablet 40 mg, 40 mg, oral, Daily, Rafi Cuevas DALTON Waller-ENTERPRISE APPLICATION ARCHITECT, 40 mg at 12/24/23 0808 melatonin tablet 5 mg, 5 mg, oral, Nightly PRN, Fabiolajamil Cuevas DALTON Waller-[place] pantoprazole (ProtoNix) EC tablet 40 mg, 40 mg, oral, Daily before breakfast, Rafi Cuevas DALTON Waller-ENTERPRISE APPLICATION ARCHITECT, 40 mg at 12/24/23 0603 polyethylene glycol (Glycolax, Miralax) packet 17 g, 17 g, oral, Daily PRN, Fabiolajamil Cuevas DALTON Waller-[place] prasugrel (Effient) tablet 10 mg, 10 mg, oral, Daily, Fabiolajamil Cuevas DALTON Waller-[place], 10 mg at 12/24/23 0809 sertraline (Zoloft) tablet 100 mg, 100 mg, oral, Daily, Rafi Cuevas DALTON Waller-[place], 100 mg at 12/24/23 0808 spironolactone (Aldactone) tablet 25 mg, 25 mg, oral, Daily, Fabiolajamil Cuevas DALTON Waller-[place], 25 mg at 12/24/23 0808 traMADol (Ultram) tablet 50 mg, 50 mg, oral, q8h PRN, Rafi Cuevas DALTON Waller-[place], 50 mg at 12/23/23 2120 Labs Results [...] not hesitate to contact us again on Jusp Chat [place] [phone] between the weekday hours of 7 AM - 5 PM. If there is an urgent concern during the weekend, after-hours, or holidays; then [place] [phone]. Thank you. Bela Rubalcava MD Gastroenterology and Hepatology Fellow [facility] Cosigned by Trevon Cullen MD at 12/24/2023 [...] in the note. documented in this encounter [facility] Work Phone: 12-24-2023 Plan of care note The patient's goals for the shift include The clinical goals for the shift include Pt will remain HDS throughout the shift Over the shift, the patient did not make progress toward the following goals. Barriers to progression include . 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s to address these barriers include . [facility] Work Phone: 12-23-2023 Plan of care note The patient's goals for the shift include The clinical goals for the shift include pt will remain HDS throughout the shift Over the shift, the patient did make progress toward the following goals. [facility] Work Phone: 12-23-2023 Hospital Note Formatting of t his note might be different from the original. Italia Allen is a 68 y.o. male with a PMHx of HLD, HTN, T2DM, HFrEF (LVEF 45 to 50%), and OA who presented to [facility] 12/18 after being found down by his [...] admitted to ICU pending bed availability at [facility]. Upon arrival to [facility] patient denies having any chest pain [...] 10/14-10/23 for ADHF as well as NSTEMI. [facility] showed 3VD, evaluated by CTS for CABG evaluation, but found to not be a surgical candidate due to patients labile emotional/mental state, and concerns about recovery post surgery, decision was made to pursue PCI. Patient was taken for staged PCI on 10/22, IVUS guided PCI to Lcx and LAD with plan to follow up with Dr. Wiley outpatient for consideration of [employer] PCI to RCA. At follow up appointment [...] 12/31 to evaluate candidacy for PCI to [employer] of RCA. Patient transitioned from home diabetes [...] minutes were spent in coordinating patient discharge. [facility] Work Phone: 12-23-2023 Plan of care note The patient's goals for the shift include The clinical goals for the shift include pt will be HDS throughout the shift Over the shift, the patient did not make progress toward the following goals. Barriers to progression include . 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s to address these barriers include . [facility] Work Phone: 12-22-2023 History and physical note History Of Present Illness: Italia Allen is a 68 y.o. male with a PMHx of HLD, HTN, T2DM, HFrEF (LVEF 45 to 50%), and OA who presented to [facility] 12/18 after being found down by his [...] admitted to ICU pending bed availability at [facility]. Upon arrival to [facility] patient denies having any chest pain [...] with Dr. Wiley outpatient for consideration of [employer] PCI to RCA. At follow up appointment [...] result verified on 12/22/2023 1726 on specimen/case [id number] called with component [facility] for procedure Troponin I, High Sensitivity [...] to 50%), and OA who presented to [facility] 12/18 after being found down by his son. Patient was placed on Heparin drip for elevated troponin of 654 which up trended to 1723 and admitted to ICU pending bed availability at [facility]. Admitted to HVI service for ADHF and NSTEMI management. NSTEMI CAD/HLD - presented to OSH s/p syncopal event, found to be hypoglycemic - OSH Troponin peak 1723, admit Troponin 492->366 - [facility] 10/14: severe 3V CAD, 70 to 80% prox to mid LAD, 90% marginal 1, and [employer] of the RCA with collateral filling the [...] Wiley with plan for outpt consideration of [employer] PCI to the RCA - appointment with Dr. Wiley 11/12, deferred PCI given pt was not medically optimized - cont Heparin drip at this time, consider discontinuing tomorrow as pt has been on since 12/18 and currently denies CP - Lipid panel pending - consult Int Cards/Dr. Wiley for evaluation of PCI to [employer] RCA once medically optimized - Continue ASA 81 mg, Prasugrel 10 mg, Carvedilol 25 mg BID, and atorvastatin 80 mg daily Acute on chronic systolic and diastolic heart failure, HFmrEF - 45-50% - etiology: likely ICM, reports a 20 year history of CHF with unknown EF - 09/2023 TTE ([facility]): EF of 45-50%, no significant valvular disease. [...] 25 mg BID, lisinopril 40 mg, [place] 25 mg daily (home dose 50 mg), [...] 2016 was normal - Renal US at [facility] on 10/14 - no acute findings - [...] emotions, varied between tearful/anger/withdrawn - grief/ certified alcohol and drug counselor services offered-> patient declined - started [...] professional and overall care of this patient. ANAM Baker I saw the patient on 12/22 [...] particularly interested in discussing it with me [facility] Work Phone: 12-22-2023 History and physical note History Of Present Illness: Italia Allen is a 68 y.o. male with a PMHx of HLD, HTN, T2DM, HFrEF (LVEF 45 to 50%), and OA who presented to [facility] 12/18 after being found down by his [...] admitted to ICU pending bed availability at [facility]. Upon arrival to [facility] patient denies having any chest pain [...] with Dr. Wiley outpatient for consideration of [employer] PCI to RCA. At follow up appointment [...] result verified on 12/22/2023 1726 on specimen/case [id number] called with component [facility] for procedure Troponin I, High Sensitivity [...] to 50%), and OA who presented to [facility] 12/18 after being found down by his son. Patient was placed on Heparin drip for elevated troponin of 654 which up trended to 1723 and admitted to ICU pending bed availability at [facility]. Admitted to HVI service for ADHF and NSTEMI management. NSTEMI CAD/HLD - presented to OSH s/p syncopal event, found to be hypoglycemic - OSH Troponin peak 1723, admit Troponin 492->366 - [facility] 10/14: severe 3V CAD, 70 to 80% prox to mid LAD, 90% marginal 1, and [employer] of the RCA with collateral filling the [...] Wiley with plan for outpt consideration of [employer] PCI to the RCA - appointment with Dr. Wiley 11/12, deferred PCI given pt was not medically optimized - cont Heparin drip at this time, consider discontinuing tomorrow as pt has been on since 12/18 and currently denies CP - Lipid panel pending - consult Int Cards/Dr. Wiley for evaluation of PCI to [employer] RCA once medically optimized - Continue ASA 81 mg, Prasugrel 10 mg, Carvedilol 25 mg BID, and atorvastatin 80 mg daily Acute on chronic systolic and diastolic heart failure, HFmrEF - 45-50% - etiology: likely ICM, reports a 20 year history of CHF with unknown EF - 09/2023 TTE ([facility]): EF of 45-50%, no significant valvular disease. [...] 25 mg BID, lisinopril 40 mg, [place] 25 mg daily (home dose 50 mg), [...] 2016 was normal - Renal US at [facility] on 10/14 - no acute findings - [...] emotions, varied between tearful/anger/withdrawn - grief/ certified alcohol and drug counselor services offered-> patient declined - started [...] it with me documented in this encounter [facility] Work Phone: 12-21-2023 Note Patient Education [...] Follow these instructions at home: ??? Take neod-akk-ycizkhu and prescription medicines only as told by [...] do not get (more content not included)... [facility] 11-29-2023 History of Present illness Narrative Images from the original note were not included. Subjective Patient ID: Italia Allen is a 68 y.o. 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 Hickey ref. provider found for No chief complaint on file. History Of Present Illness: Italia Allen is a 68 y.o. male with a past medical history of hyperlipidemia, hypertension, T2DM, HFrEF (LVEF 45 to 50%) who presented in September 2023 with an NSTEMI. Coronary angiography demonstrated severe LAD stenosis and a [employer] of the RCA. He underwent IVUS guided [...] now is referred here for consideration of [employer] PCI to the RCA. Regarding the [employer] anatomy there is a severe ostial lesion followed by a severe proximal lesion and then a relatively short [employer] with a distal island and then a [...] LAD and circumflex. He has remaining complex [employer] of the RCA. Today he appears in [...] be medically optimized prior to consideration of [employer] PCI to the RCA. Plan: - Increase [...] optimized, we will postpone plans for RCA [employer] PCI. - Continue with dual antiplatelet therapy (aspirin and prasugrel) for at least 12 months. Return to clinic in 4 weeks. MD Sahil Mandujano MD documented in this encounter [facility] Work Phone: 11-13-2023 Instructions Inderjit Michelle [...] in 4 weeks. documented in this encounter [facility] Work Phone: 11-02-2023 History of Present illness Narrative Subjective Italia Allen is a 68 y.o. male Chief Complaint Follow-up HPI Patient is here for follow-up continue management for recent hospitalization for heart failure and acute coronary syndrome. He was found to have three-vessel disease. He was transferred to [facility] for evaluation. Following lengthy discussion with [...] Scribe Attestation By signing my name below, IAraceli LPN, Scribe attest that this documentation has [...] discussion and plan. documented in this encounter [facility] Work Phone: 11-02-2023 Instructions Araceli Overton [...] up 4 months documented in this encounter [facility] Work Phone: 10-24-2023 History of Present [...] 2-3 weeks Consideration of staged PCI to [employer] of the right DAPT for 12 months (prasugrel and aspirin) Cardiac rehab referral placed Interventional Recs: - cont telemetry care per PCI protocol - OK to discharge from interventional perspective - cont DAPT with prasugrel and aspirin - education on compliance with DAPT provided - at discharge, PLEASE send 90 day prescription of prasugrel to [facility] (for melgar check and Meds to Beds) [...] CNP Interventional Cardiology General Cardiology Consult Pager: [phone] (weekday 7AM-6PM and weekend 7AM-2PM)and other: [id number] EP Consult Pager: [phone] (weekday 7AM-6PM and weekend 7AM-2PM) and other: [id number] EP Device Nurse Pager: [phone] (weekday 7AM-4PM) Advanced Heart Failure Consult Pager: [phone] anytime CICU Fellow Pager: [phone] anytime Endovascular /Limb Salvage Team Pager: [phone] for day coverage (8am-5pm) Interventional Bulk Receiver Pager: [phone] (7AM-5PM) Night coverage: HHVI Cross Cover [id number] Structural Heart Team Pager: [phone] anytime Night coverage: HHVI [id number] ANA M Stratton 10/23/23 Transitional Care Coordination Progress Note: Patient discussed during interdisciplinary rounds. Team members present: SWAPNIL SERRANO MD Plan per Medical/Surgical team: PCI 10-23-2023 monitoring creatine Discharge disposition: Home no anticipated needs Status-Inpatient Payer- MEDICARE Potential Barriers: None ADOD: 10-25-2023 Pablo ALEJANDRA [phone] HVI Attending Shared Visit Note This is [...] pain and PARSONS. He was transferred to [facility] where an echo showed EF 45-50% and LHC showed 3VD with reported 70-80% stenosis of the prox-mid LAD, 90% OM1 and [employer] of proximal RCA with left to right [...] setting of his passing away. Offered certified alcohol and drug counselor, he did not think he needed [...] 10/15/2023 Hospital Length of Stay: 7 Home: [facility] [id number] Vitals: 10/22/2023 7:30 AM 10/22/2023 4:41 AM [...] -- 91 COAG: Recent Labs 10/18/23 0710 10/17/23 1739 10/17/23 1159 10/17/23 0639 10/16/23 2357 10/16/23 0906 10/16/23 0156 INR -- -- -- -- -- -- 1.1 HAUF 0.4 0.3 0.5 0.2 0.3 < > -- < > = values in this interval not displayed. ABO: No results for input(s): ABO in the last 27119 hours. HEME/ENDO: Recent Labs 10/16/23 0156 FERRITIN 184 IRONSAT 12* TSH 6.30* FREET4 1.20 HGBA1C 6.8* CARDIAC: Recent Labs 10/16/23 0906 10/16/23 0156 TROPHS -- 916* BNP 88 -- Recent Labs 10/16/23 0156 CHOL 114 HDL 25.8 TOX:No results for input(s): AMPHETAMINE , BENZO , CANNABINOID , COCAI , FENTANYL , OPIATE , OXYCODONE , PCP in the last 39559 hours. No lab exists for component: BARBSCRUR MICRO: No results for input(s): ESR , CRP , PROCAL in the last 10511 hours. No results found for the last [...] disease. No formal report, images available in zumateko. Ejection Fractions: LVEF 45-50% Cath: 10/15/2023 - images available in zumateko IMPRESSION 1. Three-vessel coronary artery disease as [...] heart failure and NSTEMI with 3VD on C and mild LV systolic dysfunction. Transferred from OSH for CABG evaluation. NSTEMI Coronary artery disease - presented to OSH with chest pain and shortness of breath - OSH Troponin 80->543->982->1682 - troponin upon transfer: 916 - [facility] 10/14: severe 3V CAD, 70 to 80% prox to mid LAD, 90% marginal 1, and [employer] of the RCA with collateral filling the [...] CHF with unknown EF - TTE at [facility]: EF of 45-50%, no significant valvular disease. [...] value at OSH - Renal US at [facility] on 10/14 - no acute findings - [...] tearful/anger/withdrawn - therapeutic listening provided, grief/ certified alcohol and drug counselor services offered-> patient declines at this time DVT prophylaxis: subcutaneous Lovenox Dispo: pending PCI 10/22 Code Status: Full code Patient seen and discussed with Dr. Maria R Cabrera, CRM MARKETING MANAGER-[employer], DNP Associated attestation - Mario Heck MD [...] pain and PARSONS. He was transferred to [facility] where an echo showed EF 45-50% and LHC showed 3VD with reported 70-80% stenosis of the prox-mid LAD, 90% OM1 and [employer] of proximal RCA with left to right [...] setting of his passing away. Offered certified alcohol and drug counselor, he did not think he needed [...] 10/15/2023 Hospital Length of Stay: 6 Home: [facility] [id number] Vitals: 10/21/2023 7:41 AM 10/21/2023 5:19 AM [...] 10/17/23173810/17/23 1159 10/17/23 0639 10/16/23 2357 10/16/23 0910/16/23 0156 INR -- -- -- -- -- -- 1.1 HAUF 0.4 0.3 0.5 0.2 0.3 < > -- < > = values in this interval not displayed. ABO: No results for input(s): ABO in the last 77473 hours. HEME/ENDO: Recent Labs 10/16/23 0156 FERRITIN 184 IRONSAT 12* TSH 6.30* FREET4 1.20 HGBA1C 6.8* CARDIAC: Recent Labs 10/16/23 0906 10/16/23 0156 TROPHS -- 916* BNP 88 -- Recent Labs 10/16/23 0156 CHOL 114 HDL 25.8 TOX:No results for input(s): AMPHETAMINE , BENZO , CANNABINOID , COCAI , FENTANYL , OPIATE , OXYCODONE , PCP in the last 99919 hours. No lab exists for component: BARBSCRUR MICRO: No results for input(s): ESR , CRP , PROCAL in the last 21124 hours. No results found for the last [...] heart failure and NSTEMI with 3VD on [facility] and mild LV systolic dysfunction. Transferred from OSH for CABG evaluation. NSTEMI Coronary artery disease - presented to OSH with chest pain and shortness of breath - OSH Troponin 80->543->982->1682 - troponin upon transfer: 916 - [facility] 10/14: severe 3V CAD, 70 to 80% prox to mid LAD, 90% marginal 1, and [employer] of the RCA with collateral filling the [...] CHF with unknown EF - TTE at [facility]: EF of 45-50%, no significant valvular disease. [...] value at OSH - Renal US at [facility] on 10/14 - no acute findings - [...] tearful/anger/withdrawn - therapeutic listening provided, grief/ certified alcohol and drug counselor services offered-> patient declines at this time DVT prophylaxis: subcutaneous Lovenox Dispo: pending PCI 10/22 Code Status: Full code Patient seen and discussed with Dr. Maria R Sinclair, CRM MARKETING MANAGER[employer] Associated attestation - Mario Heck MD - [...] pain and PARSONS. He was transferred to [facility] where an echo showed EF 45-50% and LHC showed 3VD with reported 70-80% stenosis of the prox-mid LAD, 90% OM1 and [employer] of proximal RCA with left to right [...] setting of his passing away. Offered certified alcohol and drug counselor, he did not think he needed [...] 10/15/2023 Hospital Length of Stay: 5 Home: [place] [id number] Vitals: 10/20/2023 7:31 AM 10/20/2023 4:30 AM [...] once daily. DATA: CMP: Recent Labs 10/18/23201010/17/23173810/16/23184510/16/23 015 NA 137 137 138 137 K 4.1 4.3 4.1 4.3 CL 103 104 103 102 CO2 26 28 24 26 ANIONGAP 12 9* 15 13 BUN 25* 27* 32* 33* CREATININE 1.58* 1.35* 1.52* 1.64* EGFR 47* 57* 49* 45* MG 1.77 1.94 1.84 -- Recent Labs 10/18/23201010/17/23173810/16/23184510/16/23 015 ALBUMIN 3.3* 3.1* 3.1* 3.3* ALT -- -- -- 15 AST -- -- -- 14 BILITOT -- -- -- 0.4 CBC: Recent Labs 10/18/23201010/17/23173810/16/23184510/16/23 0906 10/16/23 0156 WBC 7.2 8.6 8.2 -- 9.3 HGB 10.7* 11.1* 10.5* -- 11.4* HCT 34.3* 35.2* 33.4* -- 35.2* PLT 295 316 283 276 285 MCV 92 92 91 -- 91 COAG: Recent Labs 10/18/23 0710 10/17/23 1739 10/17/23 1159 10/17/23 0639 10/16/23 2357 10/16/23 0906 10/16/23 0156 INR -- -- -- -- -- -- 1.1 HAUF 0.4 0.3 0.5 0.2 0.3 < > -- < > = values in this interval not displayed. ABO: No results for input(s): ABO in the last 11467 hours. HEME/ENDO: Recent Labs 10/16/23 0156 FERRITIN 184 IRONSAT 12* TSH 6.30* FREET4 1.20 HGBA1C 6.8* CARDIAC: Recent Labs 10/16/23 0906 10/16/23 0156 TROPHS -- 916* BNP 88 -- Recent Labs 10/16/23 0156 CHOL 114 HDL 25.8 TOX:No results for input(s): AMPHETAMINE , BENZO , CANNABINOID , COCAI , FENTANYL , OPIATE , OXYCODONE , PCP in the last 33499 hours. No lab exists for component: BARBSCRUR MICRO: No results for input(s): ESR , CRP , PROCAL in the last 00155 hours. No results found for the last [...] disease. No formal report, images available in zumateko. Ejection Fractions: LVEF 45-50% Cath: 10/15/2023 - images available in zumateko IMPRESSION 1. Three-vessel coronary artery disease as [...] heart failure and NSTEMI with 3VD on [facility] and mild LV systolic dysfunction. Transferred from OSH for CABG evaluation. NSTEMI Coronary artery disease - presented to OSH with chest pain and shortness of breath - OSH Troponin 80->543->982->1682 - troponin upon transfer: 916 - [facility] 10/14: severe 3V CAD, 70 to 80% prox to mid LAD, 90% marginal 1, and [employer] of the RCA with collateral filling the [...] CHF with unknown EF - TTE at [facility]: EF of 45-50%, no significant valvular disease. [...] value at OSH - Renal US at [facility] on 10/14 - no acute findings - Cr 1.58 (1.68-> 1.64->1.52->1.35) - Avoid nephrotoxins and hypotension Arthritis - Tylenol PRN - Lidocaine patches - Voltaren gel to affected areas QID PRN DVT prophylaxis: subcutaneous Lovenox Dispo: pending PCI 10/22 Code Status: Full code Patient seen and discussed with Dr. Maria R Sinclair, CRM MARKETING MANAGER-[facility] Associated attestation - Mario Heck MD [...] disease. No formal report, images available in zumateko. Ejection Fractions: LVEF 45-50% Cath: 10/15/2023 - images available in zumateko IMPRESSION 1. Three-vessel coronary artery disease as [...] heart failure and NSTEMI with 3VD on [facility] and mild LV systolic dysfunction. Transferred from OSH for CABG evaluation. NSTEMI Coronary artery disease - presented to OSH with chest pain and shortness of breath - OSH Troponin 80->543->982->1682 - troponin upon transfer: 916 - [facility] 10/14: severe 3V CAD, 70 to 80% prox to mid LAD, 90% marginal 1, and [employer] of the RCA with collateral filling the [...] CHF with unknown EF - TTE at [facility]: EF of 45-50%, no significant valvular disease. [...] value at OSH - Renal US at [facility] on 10/14 - no acute findings - Cr 1.58 (1.68-> 1.64->1.52->1.35) - Avoid nephrotoxins and hypotension Arthritis - Tylenol PRN - Lidocaine patches - Voltaren gel to affected areas QID PRN DVT prophylaxis: subcutaneous Lovenox Dispo: pending PCI 10/22 Code Status: Full code Patient seen and discussed with Dr. Maria R Waller, CRM MARKETING MANAGER[employer] Associated attestation - Mario Heck MD - [...] pain and PARSONS. He was transferred to [facility] where an echo showed EF 45-50% and LHC showed 3VD with reported 70-80% stenosis of the prox-mid LAD, 90% OM1 and [employer] of proximal RCA with left to right [...] setting of his passing away. Offered certified alcohol and drug counselor, he did not think he needed it. Dispo: pending PCI next week Mario Heck MD Problems: Principal Problem: Acute on chronic systolic (congestive) heart failure (Multi) Active Problems: Hypertension Stage 3a chronic kidney disease (Multi) Type 2 diabetes mellitus without complication (Multi) CAD, multiple vessel NSTEMI (non-ST elevated myocardial infarction) (Multi) Grief Objective Admit Date: 10/15/2023 Hospital Length of Stay: 4 Home: [facility] [address] Vitals: 10/19/2023 11:29 AM 10/19/2023 8:52 AM [...] once daily. DATA: CMP: Recent Labs 10/18/23201010/17/23173810/16/23184510/16/23 015 NA 137 137 138 137 K 4.1 4.3 4.1 4.3 CL 103 104 103 102 CO2 24 26 ANIONGAP 12 9* 15 13 BUN 25* 27* 32* 33* CREATININE 1.58* 1.35* 1.52* 1.64* EGFR 47* 57* 49* 45* MG 1.77 1.94 1.84 -- Recent Labs 10/18/23201010/17/23173810/16/23184510/16/23 015 ALBUMIN 3.3* 3.1* 3.1* 3.3* ALT -- -- -- 15 AST -- -- -- 14 BILITOT -- -- -- 0.4 CBC: Recent Labs 10/18/23201010/17/23173810/16/23184510/16/23 0910/16/23 015 WBC 7.2 8.6 8.2 -- 9.3 HGB 10.7* 11.1* 10.5* -- 11.4* HCT 34.3* 35.2* 33.4* -- 35.2* PLT 295 316 283 276 285 MCV 92 92 91 -- 91 COAG: Recent Labs 10/18/23 0710/17/23173810/17/23 1159 10/17/23 0639 10/16/23 2357 10/16/23 0910/16/23 015 INR -- -- -- -- -- -- 1.1 HAUF 0.4 0.3 0.5 0.2 0.3 < > -- < > = values in this interval not displayed. ABO: No results for input(s): ABO in the last 45143 hours. HEME/ENDO: Recent Labs 10/16/23 015 FERRITIN 184 IRONSAT 12* TSH 6.30* FREET4 1.20 HGBA1C 6.8* CARDIAC: Recent Labs 10/16/23 0910/16/23 0156 TROPHS -- 916* BNP 88 -- Recent Labs 10/16/23 0156 CHOL 114 HDL 25.8 TOX:No results for input(s): AMPHETAMINE , BENZO , CANNABINOID , COCAI , FENTANYL , OPIATE , OXYCODONE , PCP in the last 38360 hours. No lab exists for component: BARBSCRUR MICRO: No results for input(s): ESR , CRP , PROCAL in the last 72696 hours. No results found for the last [...] heart failure and NSTEMI with 3VD on [facility] and mild LV systolic dysfunction. Transferred from OSH for CABG evaluation. NSTEMI Coronary artery disease - presented to OSH with chest pain and shortness of breath - OSH Troponin 80->543->982->1682 - troponin upon transfer: 916 - [facility] 10/14: Three-vessel coronary artery disease as evident by diffuse severe disease inthe proximal to mid LAD in the range of 70 to 80%, 90% marginal 1 and total occlusion of the right coronary artery with collateral filling the distal right coronary artery demonstrating vessel appears to be a good target for revascularization. Images have been transferred and are viewable through [facility]. - Continue ASA, carvedilol and atorvastatin - Discontinue Heparin gtt today - CTS consulted for CABG evaluation, work-up initiated Acute on chronic systolic and diastolic heart failure HFmrEF - 45-50% - etiology: likely ICM - Reports a 20 year history of CHF with unknown EF - TTE done at [facility] showed an EF of 45-50% with no significant valvular disease. No formal report available. Images have been transferred and are viewable through [facility]. - BNP on admit: 88 - s/p [...] value at OSH - Renal US at [facility] on 10/14 - no acute findings - Avoid nephrotoxins and hypotension - resume home Bumex today Arthritis - Tylenol PRN - Lidocaine patches - Voltaren gel to affected areas QID PRN DVT prophylaxis: lovenox Dispo: pending CABG work-up/ evaluation Patient seen and discussed with Dr. Heck Peripheral IV 20 G Left;Anterior Forearm (Active) Site Assessment Clean;Intact;Dry 10/17/232099 Dressing Status Clean;Dry 10/17/23 2100 Number of days: Code Status: Full Code [...] pain and PARSONS. He was transferred to [facility] where an echo showed EF 45-50% and C showed 3VD with reported 70-80% stenosis of the prox-mid LAD, 90% OM1 and [employer] of proximal RCA with left to right [...] setting of his passing away. Offered certified alcohol and drug counselor, he did not think he needed [...] pain and PARSONS. He was transferred to [facility] where an echo showed EF 45-50% and LHC showed 3VD with reported 70-80% stenosis of the prox-mid LAD, 90% OM1 and [employer] of proximal RCA with left to right [...] setting of his passing away. Offered certified alcohol and drug counselor, he did not think he needed it. Dispo: pending CABG amber Heck MD Problems: Principal Problem: Acute on chronic systolic (congestive) heart failure (Multi) Active Problems: Hypertension Stage 3a chronic kidney disease (Multi) Type 2 diabetes mellitus without complication (Multi) CAD, multiple vessel NSTEMI (non-ST elevated myocardial infarction) (Multi) Grief Objective Admit Date: 10/15/2023 Hospital Length of Stay: 2 Home: [facility] [id number] Vitals: 10/17/2023 2:49 PM 10/17/2023 12:50 PM [...] mouth once daily. DATA: CMP: Recent Labs 10/16/236 10/16/23 0156 NA 138 137 K 4.1 4.3 CL 103 102 CO2 24 26 ANIONGAP 15 13 BUN 32* 33* CREATININE 1.52* 1.64* EGFR 49* 45* MG 1.84 -- Recent Labs 10/16/236 10/16/23 0156 ALBUMIN 3.1* 3.3* ALT -- 15 AST -- 14 BILITOT -- 0.4 CBC: Recent Labs 10/16/236 10/16/23 0906 10/16/23 0156 WBC 8.2 -- 9.3 HGB 10.5* -- 11.4* HCT 33.4* -- 35.2* PLT 283 276 285 MCV 91 -- 91 COAG: Recent Labs 10/17/23 1159 10/17/23 0639 10/16/23 2357 10/16/23 1835 10/16/23 1413 10/16/23 0906 10/16/23 0156 INR -- -- -- -- -- -- 1.1 HAUF 0.5 0.2 0.3 0.2 0.1 < > -- < > = values in this interval not displayed. ABO: No results for input(s): ABO in the last 22797 hours. HEME/ENDO: Recent Labs 10/16/23 0156 FERRITIN 184 IRONSAT 12* TSH 6.30* FREET4 1.20 HGBA1C 6.8* CARDIAC: Recent Labs 10/16/23 0906 10/16/23 0156 TROPHS -- 916* BNP 88 -- Recent Labs 10/16/23 0156 CHOL 114 HDL 25.8 TOX:No results for input(s): AMPHETAMINE , BENZO , CANNABINOID , COCAI , FENTANYL , OPIATE , OXYCODONE , PCP in the last 55661 hours. No lab exists for component: BARBSCRUR MICRO: No results for input(s): ESR , CRP , PROCAL in the last 44085 hours. No results found for the last 90 days. FOLLOWUP: No future appointments. CARDIAC SURGERY CONSULT PROGRESS NOTE SUBJECTIVE Italia Allen is a 68 y.o. male with PMH of HTN, HLD, DM2, Morbid obesity, OA and CHF who initially presented to [facility] with two days of chest pain and worsening SOB and PARSONS. At [facility], he was desaturated with 70% O2 sat at RA and his troponin was uptrending. Therefore, he was transferred to [facility] for further workup and management. At [facility], he was treated with IV lasix with significant improvement of his SOB and volume status. He underwent a TTE that was reported to show an EF of 45-50% without significant valvular disease. He also underwent a LHC that showed 3VD with 70-80% stenosis of prox-mid LAD, 90% of OM1 and [employer] of prox RCA with collateral filling of the distal RCA from the left system. He was transferred to [facility] for a CABG evaluation. The patient [...] OA and CHF who initially presented to [facility] with two days of chest pain and worsening SOB and PARSONS. At [facility], he was desaturated with 70% O2 sat at RA and his troponin was uptrending. Therefore, he was transferred to [facility] for further workup and management. At [facility], he was treated with IV lasix with significant improvement of his SOB and volume status. He underwent a TTE that was reported to show an EF of 45-50% without significant valvular disease. He also underwent a LHC that showed 3VD with 70-80% stenosis of prox-mid LAD, 90% of OM1 and [employer] of prox RCA with collateral filling of the distal RCA from the left system. He was transferred to [facility] for a CABG evaluation. The patient [...] Please page the cardiac surgery consult pager [phone] with any questions or changes in patient condition. Ru Elena PA-C Cardiac Surgery Consult [facility] Cardiac Surgery Consult Pager [phone] 10/17/2023 2:22 PM 10/17/23 Transitional Care Coordination Progress Note: Patient discussed during interdisciplinary rounds. Team members present: SWAPNIL SERRANO MD Plan per Medical/Surgical team: CABG work-up/ evaluation Discharge disposition: TBD Status-Inpatient Payer- MEDICARE Potential Barriers: None ADOD: 10-20-2023 Will continue to monitor for all discharging needs Pablo Berman RN TCC [phone] Physical Therapy Physical Therapy Evaluation Patient Name: [...] OA and CHF who initially presented to [facility] with two days of chest pain [...] Prior Function Per Pt/Caregiver Report Level of [place]: Independent with ADLs and functional transfers ADL [...] function.) Comments/Distance (ft) 1: 200ft Outcome Measures: [facility] Basic Mobility Turning from your back to [...] or pet therapy or visiting with the principal android developer at this time. - CABG workup with [...] disease. No formal report, images available in Reniac. Ejection Fractions: LVEF 45-50% Cath: 10/15/2023 - images available in zumateko IMPRESSION 1. Three-vessel coronary artery disease as [...] heart failure and NSTEMI with 3VD on [facility] and mild LV systolic dysfunction. Transferred from OSH for CABG evaluation. NSTEMI Coronary artery disease - presented to OSH with chest pain and shortness of breath - OSH Troponin 80->543->982->1682 - troponin upon transfer: 916 - [facility] 10/14: Three-vessel coronary artery disease as evident by diffuse severe disease inthe proximal to mid LAD in the range of 70 to 80%, 90% marginal 1 and total occlusion of the right coronary artery with collateral filling the distal right coronary artery demonstrating vessel appears to be a good target for revascularization. Images have been transferred and are viewable through Reniac. - Continue Heparin gtt, ASA, and atorvastatin - CTS consulted for CABG evaluation, work-up initiated Acute on chronic systolic and diastolic heart failure HFmrEF - 45-50% - etiology: likely ICM - Reports a 20 year history of CHF with unknown EF - TTE done at [facility] showed an EF of 45-50% with no significant valvular disease. No formal report available. Images have been transferred and are viewable through zumateko. - BNP on admit: 88 - s/p [...] value at OSH - Renal US at [facility] on 10/14 - no acute findings - [...] flat, no dyspnea) Overnight Events: Admitted to [facility] Objective Data: Last Recorded Vitals: Vitals: [...] heart failure and NSTEMI with 3VD on [facility] and mild LV systolic dysfunction. Transferred from OSH for CABG evaluation. NSTEMI Coronary artery disease - presented to OSH with chest pain and shortness of breath - OSH Troponin 80->543->982->1682 - troponin upon transfer: 916 - [facility] 10/14: Three-vessel coronary artery disease as evident by diffuse severe disease inthe proximal to mid LAD in the range of 70 to 80%, 90% marginal 1 and total occlusion of the right coronary artery with collateral filling the distal right coronary artery demonstrating vessel appears to be a good target for revascularization. Images have been transferred and are viewable through Reniac. - Continue Heparin gtt, ASA, metoprolol and atorvastatin - CTS consulted for CABG evaluation, work-up initiated Acute on chronic systolic and diastolic heart failure HFmrEF - 45-50% - etiology: likely ICM - Reports a 20 year history of CHF with unknown EF - TTE done at [facility] showed an EF of 45-50% with no significant valvular disease. No formal report available. Images have been transferred and are viewable through Reniac. - BNP on admit: 88 - s/p [...] value at OSH - Renal US at [facility] on 10/14 - no acute findings - Avoid nephrotoxins and hypotension - diuretic held as above DVT prophylaxis: heparin gtt Dispo: pending CABG work-up/ evaluation Patient seen and discussed with Dr. Heck Code Status: Full Code Catia Patton PA-C 10/16/23823 Discharge Planning Living Arrangements Alone Support Systems Anglican/yvette community Assistance Needed none Type of Residence [...] were you homeless or living in a intermediate (including now)? N Transportation Needs In the past 12 months, has lack of transportation kept you from medical appointments or from getting medications? no In the past 12 months, has lack of transportation kept you from meetings, work, or from getting things needed for daily living? No Patient Choice Provider Choice list and CMS website (https://medicare.gov/care-compar e#search) for post-acute Quality and Resource Measure Data were provided and reviewed with: Patient Patient / Family choosing to utilize agency / facility established prior to hospitalization No Transitional Telecom Coordinator Note: 10/16/2023@8:00 Met with patient to introduce myself, role and discuss discharge planning s/p admission. Patient lives with alone Independent in all ADL's. Does not require assist devices for ambulation. Demographics and contact information confirmed. Will continue to monitor patient for all home going needs. Pablo Berman RN [facility] [phone] Previous Home Care None DME None Falls: [...] Rosemarie Miranda PharmD Transitions of Care Pharmacist [facility] Please reach out via Secure Chat for questions documented in this encounter [facility] Work Phone: 10-24-2023 Plan of care note Pt remained HDS and free of injury this shift. Pt to be discharged home. Pt awaiting medications from [facility] pharmacy. Pt provided with discharge instructions, [...] by end of the shift Outcome: Progressing [facility] 10-24-2023 Miscellaneous Notes Pt remained HDS and free of injury this shift. Pt to be discharged home. Pt awaiting medications from [facility] pharmacy. Pt provided with discharge instructions, [...] Attending: * Sahil Wiley - Primary Resident/Fellow/Other Soil Sampler: Blaise Michelle Surgeons and Role: * No [...] 13mmHg Complications: Nil Stents/Implants: Implants Stent Stent, Capac Ponce Lisy, 3.50 X 15rx - [id number] - Implanted Inventory item: STENT, SCOTT FRONTIER LISY, 3.50 X 15RX Model/Cat number: [id number] Bicycle Ii Assembler: [employer] Lot number: [id number] Device identifier: [id number] As of 10/23/2023 Status: Implanted Stent, Synergy Xd, Mr Us, 3.00 X 48mm - [id number] - Implanted Inventory item: STENT, SYNERGY XD, MR US, 3.00 X 48MM Model/Cat number: [id number] Bicycle Ii Assembler: [employer] Lot number: [id number] Device identifier: [id number] As of 10/23/2023 Status: Implanted Anticoagulation/Antiplatelet Plan: Estimated Blood Loss: 5 mL Anesthesia: Moderate Sedation Anesthesia Staff: No anesthesia staff entered. Any Specimen(s) Removed: No specimens collected during this procedure. Disposition: Back to [facility] tomorrow Clinic follow up in 2-3 weeks Consideration of staged PCI to [employer] of the right DAPT for 12 months [...] Coronary Intervention (CHIP) Update Note Primary team: [facility] CHIP Window Glazier Helper(s): Sahil Wiley MD, Inderjit Michelle MD (CHIP Fellow) HPI: 68-year-old male with a past medical history of T2DM, heart failure with preserved ejection fraction, CKD, hyperlipidemia and hypertension who initially presented to an outside hospital with 2 days of chest pain associated with worsening dyspnea. He was subsequently transferred to [facility] for further workup. 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 Transthoracic echocardiogram demonstrated an LVEF of 45 to 50%. He was then transferred to [facility] for CABG evaluation. Sadly, his about [...] multivessel percutaneous coronary vascularization. Review of the [facility] angiogram demonstrates focal severe stenotic lesion in the circumflex obtuse marginal branch (moderate to large caliber vessel), severe focal mid LAD stenosis, [employer] of the mid RCA with retrograde filling [...] is to bring the patient to the Bladder Trimmer for PCI to the LAD and circumflex on 10/23/2023. We will then consider a staged intervention of the RCA, likely as outpatient in the service of minimizing contrast adminstration in the setting of CKD. RCA SU[employer] will be a complex intervention. Labs from [...] with P2Y12 inhibitor. Inderjit Michelle MD PGY-8 CHIP-SUPERVISOR FEED MILL Fellow The patient's goals for the shift [...] self management Outcome: Progressing PATIENT: ITALIA ALLEN : 1955 ADMIT DATE: 10/15/2023 11:30 PM DISCH DATE: RESPONDING PROVIDER #: [id number] PROVIDER RESPONSE TEXT: Acute on Chronic systolic [...] 3VD on LHC and mild LV systolic dysfunction Documented Diagnosis: Acute on chronic systolic is documented in History and Physical on 10/15 and Acute on chronic systolic and diastolic heart failure is documented in Progress Notes, 10/16-10/18 Clinical Indicators and Documentation: -Vital Signs, 10/14 at 2354: [id number], SPO2 94 RA -ECHO: Per Progress Note, [...] morbid obesity, OA and CHF, presented to [facility] with two days of chest pain and worsening SOB and PARSONS. He states that he knows of his CHF for the past 20 years and had a LHC then that did not show obstructive CAD but does not remember if he did an echocardiography then or how much was his EF. At [facility], he was desaturated with 70% O2 sat at RA and his troponin was uptrending. Therefore, he was transferred to [facility] for further workup and management. At [facility], he was treated with IV lasix with significant improvement of his SOB and volume status. He underwent a TTE that was reported to show an EF of 45-50% without significant valvular disease. He also underwent a LHC that showed 3VD with 70-80% stenosis of prox-mid LAD, 90% of OM1 and [employer] of prox RCA with collateral filling of the distal RCA from the left system. He was transferred to [facility] to be evaluated for CABG by [...] continue to monitor. documented in this encounter [facility] Work Phone: 10-23-2023 Plan of care [...] risk factors Instruct family/caregiver on patient safety [facility] 10-23-2023 Plan of care note Pt [...] by end of the shift Outcome: Progressing [facility] Work Phone: 10-23-2023 Hospital Discharge instructions [...] for any reason without talking to your mining speculator first. If any of these were prescribed, [...] have any concerns, you may contact the Bladder Trimmer or if any of these symptoms become excessive, contact your mining speculator or go to the emergency room. OTHER [...] through Care Everywhere.Heart Failure Discharge Instructions, Adult (Swazi)Coronary Artery Disease Discharge Instructions (Swazi)Coronary Stenting Discharge Instructions (Swazi)documented in this encounter [facility] Work Phone: 10-23-2023 Note Formatting of this n ote is different from the original. Physician Transition of Care Summary Invasive Cardiovascular Lab Procedure Date: 10/23/2023 Attending: Ben Wiley - Primary Resident/Fellow/Other Soil Sampler: Blaise Michelle Surgeons and Role: * No [...] 13mmHg Complications: Nil Stents/Implants: Implants Stent Stent, Capac Ponce Lisy, 3.50 X 15rx - [id number] - Implanted Inventory item: STENT, SCOTT FRONTIER LISY, 3.50 X 15RX Model/Cat number: [id number] Bicycle Ii Assembler: [employer] Lot number: [id number] Device identifier: [id number] As of 10/23/2023 Status: Implanted Stent, Synergy Xd, Mr Us, 3.00 X 48mm - [id number] - Implanted Inventory item: STENT, SYNERGY XD, MR US, 3.00 X 48MM Model/Cat number: [id number] Bicycle Ii Assembler: [employer] Lot number: [id number] Device identifier: [id number] As of 10/23/2023 Status: Implanted Anticoagulation/Antiplatelet Plan: Estimated Blood Loss: 5 mL Anesthesia: Moderate Sedation Anesthesia Staff: No anesthesia staff entered. Any Specimen(s) Removed: No specimens collected during this procedure. Disposition: Back to [facility] tomorrow Clinic follow up in 2-3 weeks Consideration of staged PCI to [employer] of the right DAPT for 12 months (prasugrel and aspirin) Electronically signed by: Abdoulaye Welsh MD, 10/23/2023 5:08 PM [facility] Work Phone: 10-23-2023 Note Formatting of this n ote might be different from the original. Sedation Plan ASA 3 Mallampati class: I. Risks, benefits, and alternatives discussed with patient. [facility] Work Phone: 10-23-2023 Attending History and [...] Morbid obesity, OA and CHF, presented to [facility] with two days of chest pain and worsening SOB and PARSONS. He states that he knows of his CHF for the past 20 years and had a [facility] then that did not show obstructive CAD but does not remember if he did an echocardiography then or how much was his EF. At [facility], he was desaturated with 70% O2 sat at RA and his troponin was uptrending. Therefore, he was transferred to [facility] for further workup and management. At [facility], he was treated with IV lasix with significant improvement of his SOB and volume status. He underwent a TTE that was reported to show an EF of 45-50% without significant valvular disease. He also underwent a LHC that showed 3VD with 70-80% stenosis of prox-mid LAD, 90% of OM1 and [employer] of prox RCA with collateral filling of [...] of prox-mid LAD, 90% of OM1 and [employer]PER[employer] of prox RCA with collateral filling of [...] for 20 years and had a normal [facility] then. No info about previous EF. - obtain TTE images from [facility] - was on IV lasix but looks like he is back to his baseline - will resume bumex 2mg #NSTEMI # 3VD - continue Heparin gtt, aspirin and statins - obtain C images from [facility] - CTS consult for CABG #DM - [...] care of this patient. Jarrell Dale MD [facility] Work Phone: 10-23-2023 History and physical [...] Morbid obesity, OA and CHF, presented to [facility] with two days of chest pain and worsening SOB and PARSONS. He states that he knows of his CHF for the past 20 years and had a LHC then that did not show obstructive CAD but does not remember if he did an echocardiography then or how much was his EF. At [facility], he was desaturated with 70% O2 sat at RA and his troponin was uptrending. Therefore, he was transferred to [facility] for further workup and management. At [facility], he was treated with IV lasix with significant improvement of his SOB and volume status. He underwent a TTE that was reported to show an EF of 45-50% without significant valvular disease. He also underwent a LHC that showed 3VD with 70-80% stenosis of prox-mid LAD, 90% of OM1 and [employer] of prox RCA with collateral filling of [...] of prox-mid LAD, 90% of OM1 and [employer] of prox RCA with collateral filling of [...] previous EF. - obtain TTE images from [facility] - was on IV lasix but looks like he is back to his baseline - will resume bumex 2mg #NSTEMI # 3VD - continue Heparin gtt, aspirin and statins - obtain LHC images from [facility] - CTS consult for CABG #DM - [...] Morbid obesity, OA and CHF, presented to [facility] with two days of chest pain and worsening SOB and PARSONS. He states that he knows of his CHF for the past 20 years and had a LHC then that did not show obstructive CAD but does not remember if he did an echocardiography then or how much was his EF. At [facility], he was desaturated with 70% O2 sat at RA and his troponin was uptrending. Therefore, he was transferred to [facility] for further workup and management. At [facility], he was treated with IV lasix with significant improvement of his SOB and volume status. He underwent a TTE that was reported to show an EF of 45-50% without significant valvular disease. He also underwent a LHC that showed 3VD with 70-80% stenosis of prox-mid LAD, 90% of OM1 and [employer] of prox RCA with collateral filling of [...] of prox-mid LAD, 90% of OM1 and [employer]PER[employer] of prox RCA with collateral filling of [...] previous EF. - obtain TTE images from [facility] - was on IV lasix but looks like he is back to his baseline - will resume bumex 2mg #NSTEMI # 3VD - continue Heparin gtt, aspirin and statins - obtain LHC images from [facility] - CTS consult for CABG #DM - [...] pain and PARSONS. He was transferred to [facility] where an echo showed EF 45-50% and LHC showed 3VD with reported 70-80% stenosis of the prox-mid LAD, 90% OM1 and [employer] of proximal RCA with left to right [...] Mario Heck MD documented in this encounter [facility] Work Phone: 10-23-2023 Note Formatting of this n ote might be different from the original. Sedation Plan ASA 3 Mallampati class: II. Risks, benefits, and alternatives discussed with patient. [facility] Work Phone: 10-23-2023 Plan of care [...] by end of the shift Outcome: Progressing [facility] 10-22-2023 Plan of care note Problem: ACS/CP/NSTEMI/STEMI [...] HDS, NPO at midnight for PCI tomorrow. [facility] 10-21-2023 Note Formatting of this n ote might be different from the original. Interventional Cardiology-Complex High Risk Coronary Intervention (CHIP) Update Note Primary team: [facility] CHIP Window Glazier Helper(s): Sahil Wiley MD, Inderjit Michelle MD (CHIP Fellow) HPI: 68-year-old male with a past medical history of T2DM, heart failure with preserved ejection fraction, CKD, hyperlipidemia and hypertension who initially presented to an outside hospital with 2 days of chest pain associated with worsening dyspnea. He was subsequently transferred to [facility] for further workup. 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 Transthoracic echocardiogram demonstrated an LVEF of 45 to 50%. He was then transferred to [facility] for CABG evaluation. Sadly, his about [...] multivessel percutaneous coronary vascularization. Review of the [facility] angiogram demonstrates focal severe stenotic lesion in the circumflex obtuse marginal branch (moderate to large caliber vessel), severe focal mid LAD stenosis, [employer] of the mid RCA with retrograde filling [...] is to bring the patient to the Bladder Trimmer for PCI to the LAD and circumflex on 10/23/2023. We will then consider a staged intervention of the RCA, likely as outpatient in the service of minimizing contrast adminstration in the setting of CKD. RCA SUPERVISOR FEED MILL will be a complex intervention. Labs from [...] with P2Y12 inhibitor. Inderjit Michelle MD PGY-8 CHIP-SUPERVISOR FEED MILL Fellow [facility] Work Phone: 10-21-2023 Plan of care note The patient's goals for the shift include The clinical goals for the shift include SBP will remained <140 throughout this shift Over the shift, the patient remained safe and without injury. He did 4 lapse of walk through the klein during the shift. He awaits his PCI to be done on 10/22. [facility] 10-20-2023 Plan of care note The patient's goals for the shift include The clinical goals for the shift include Patient's SBP will be under 140 during shift Patient remained safe and free of falls during shift. No reports of pain during shift. Lisinopril added for BP control during shift and lantus dose increased. Awaiting staged PCI on 10/22. [facility] 10-20-2023 Plan of care note The [...] Progressing Goal: Promote self management Outcome: Progressing T [facility] Work Phone: 10-19-2023 Note Formatting of this n ote might be different from the original. PATIENT: ITALIA ALLEN : 1955 ADMIT DATE: 10/15/2023 11:30 PM DISCH DATE: RESPONDING PROVIDER #: [id number] PROVIDER RESPONSE TEXT: Acute on Chronic systolic [...] heart failure and NSTEMI with 3VD on [facility] and mild LV systolic dysfunction Documented Diagnosis: Acute on chronic systolic is documented in History and Physical on 10/15 and Acute on chronic systolic and diastolic heart failure is documented in Progress Notes, 10/16-10/18 Clinical Indicators and Documentation: -Vital Signs, 10/14 at 2354: [id number], SPO2 94 RA -ECHO: Per Progress Note, [...] by: MARIO HECK MD 10/19/2023 4:59 PM [facility] Work Phone: 10-19-2023 Nurse Note Problem: Pt. Has been noted in progress notes to be labile in emotions. Assessment: Although initially quiet and talking in brief sentences, he began to reminisce. 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 Easton Rodrigues RN, PhD, CRM MARKETING MANAGER-CCNS, CCRN [facility] Work Phone: 10-19-2023 Nurse Note Problem: Pt. Has been noted in progress notes to be labile in emotions. Assessment: Although initially quiet and talking in brief sentences, he began to reminisce. 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 Easton Rodrigues RN, PhD, CRM MARKETING MANAGER-CCNS, CCRN documented in this encounter [facility] Work Phone: 10-19-2023 Plan of care [...] Progressing Goal: Promote self management Outcome: Progressing [facility] Work Phone: 10-18-2023 Plan of care note [...] throughout the shift, and prepare for procedure. [facility] 10-18-2023 Plan of care note Problem: ACS/CP/NSTEMI/STEMI [...] po with relief. Will continue to monitor. [facility] Work Phone: 10-17-2023 Hospital Note Formatting of t his note might be different from the original. Italia Allen is a 68 y.o. male with PMH of HTN, HLD, DM2, morbid obesity, OA and CHF, presented to [facility] with two days of chest pain and worsening SOB and PARSONS. He states that he knows of his CHF for the past 20 years and had a LHC then that did not show obstructive CAD but does not remember if he did an echocardiography then or how much was his EF. At [facility] ED, he was desaturated with 70% O2 sat at RA and his troponin was uptrending. Therefore, he was transferred to [facility] for further workup and management. At [facility], he was treated with IV lasix with significant improvement of his SOB and volume status. He underwent a TTE that was reported to show an EF of 45-50% without significant valvular disease. He also underwent a LHC that showed 3VD with 70-80% stenosis of prox-mid LAD, 90% of OM1 and SUPERVISOR FEED MILL of prox RCA with collateral filling of the distal RCA from the left system. He was transferred to [facility] to be evaluated for CABG by [...] minutes were spent in coordinating patient discharge. [facility] Work Phone: 10-17-2023 Plan of care note [...] mg po x 2 for back pain. [facility] Work Phone: 10-16-2023 Plan of care note The patient's goals for the shift include The clinical goals for the shift include therapeutic on heparin Over the shift, the patient did not make progress toward the following goals. Barriers to progression include subtherapeutic assay. 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s to address these barriers include every 4 hrs til therapeutic. [facility] 10-16-2023 Procedure note Procedure(s): SPIROMETRY Room Air ABG drawn and completed with Spirometry. [facility] 10-16-2023 Procedure note Procedure(s): SPIROMETRY Room Air ABG drawn and completed with Spirometry. documented in this encounter [facility] Work Phone: 10-16-2023 Consult note Associated Order (s): IP CONSULT TO CARDIOTHORACIC SURGERY Reason for Consult: CAD CARDIAC SURGERY CONSULT NOTE HISTORY OF PRESENT ILLNESS Italia Allen is a 68 y.o. male with PMH of HTN, HLD, DM2, Morbid obesity, OA and CHF who initially presented to [facility] with two days of chest pain and worsening SOB and PARSONS. At [facility], he was desaturated with 70% O2 sat at RA and his troponin was uptrending. Therefore, he was transferred to [facility] for further workup and management. At [facility], he was treated with IV lasix with significant improvement of his SOB and volume status. He underwent a TTE that was reported to show an EF of 45-50% without significant valvular disease. He also underwent a LHC that showed 3VD with 70-80% stenosis of prox-mid LAD, 90% of OM1 and SUPERVISOR FEED MILL of prox RCA with collateral filling of the distal RCA from the left system. He was transferred to [facility] for a CABG evaluation. The patient [...] Yellow, Dark-Yellow Appearance, Urine Clear Clear Specific Alexander, Urine 1.026 1.005 - 1.035 pH, Urine [...] Rate 85 BPM Atrial Rate 85 BPM NM Interval 196 ms QRS Duration 100 ms QT Interval 392 ms QTC Calculation(Bazett) 466 ms P Pinetta 40 degrees R Pinetta 54 degrees T Pinetta 51 degrees QRS Count 14 beats Q [...] OA and CHF who initially presented to [facility] with two days of chest pain and worsening SOB and PARSONS. At [facility], he was desaturated with 70% O2 sat at RA and his troponin was uptrending. Therefore, he was transferred to [facility] for further workup and management. At [facility], he was treated with IV lasix with significant improvement of his SOB and volume status. He underwent a TTE that was reported to show an EF of 45-50% without significant valvular disease. He also underwent a LHC that showed 3VD with 70-80% stenosis of prox-mid LAD, 90% of OM1 and SUPERVISOR FEED MILL of prox RCA with collateral filling of the distal RCA from the left system. He was transferred to [facility] for a CABG evaluation. The patient [...] Please page the cardiac surgery consult pager [phone] with any questions or changes in patient condition. Ru Elena PA-C Cardiac Surgery Consult SUDHIR [facility] Cardiac Surgery Consult Pager [phone] 10/16/2023 1:55 PM [facility] Work Phone: 10-16-2023 Consult note Associated Order (s): IP CONSULT TO CARDIOTHORACIC SURGERY Reason for Consult: CAD CARDIAC SURGERY CONSULT NOTE HISTORY OF PRESENT ILLNESS Italia Allen is a 68 y.o. male with PMH of HTN, HLD, DM2, Morbid obesity, OA and CHF who initially presented to [facility] with two days of chest pain and worsening SOB and PARSONS. At [facility], he was desaturated with 70% O2 sat at RA and his troponin was uptrending. Therefore, he was transferred to [facility] for further workup and management. At [facility], he was treated with IV lasix with significant improvement of his SOB and volume status. He underwent a TTE that was reported to show an EF of 45-50% without significant valvular disease. He also underwent a LHC that showed 3VD with 70-80% stenosis of prox-mid LAD, 90% of OM1 and SUPERVISOR FEED MILL of prox RCA with collateral filling of the distal RCA from the left system. He was transferred to [facility] for a CABG evaluation. The patient [...] Yellow, Dark-Yellow Appearance, Urine Clear Clear Specific Alexander, Urine 1.026 1.005 - 1.035 pH, Urine [...] Rate 85 BPM Atrial Rate 85 BPM NM Interval 196 ms QRS Duration 100 ms QT Interval 392 ms QTC Calculation(Bazett) 466 ms P Pinetta 40 degrees R Pinetta 54 degrees T Pinetta 51 degrees QRS Count 14 beats Q [...] OA and CHF who initially presented to [facility] with two days of chest pain and worsening SOB and PARSONS. At [facility], he was desaturated with 70% O2 sat at RA and his troponin was uptrending. Therefore, he was transferred to [facility] for further workup and management. At [facility], he was treated with IV lasix with significant improvement of his SOB and volume status. He underwent a TTE that was reported to show an EF of 45-50% without significant valvular disease. He also underwent a LHC that showed 3VD with 70-80% stenosis of prox-mid LAD, 90% of OM1 and SUPERVISOR [employer] MILL of prox RCA with collateral filling of the distal RCA from the left system. He was transferred to [facility] for a CABG evaluation. The patient [...] Please page the cardiac surgery consult pager [phone] with any questions or changes in patient condition. Ru Elena PA-C Cardiac Surgery Consult SUDHIR [facility] Cardiac Surgery Consult Pager [phone] 10/16/2023 1:55 PM documented in this encounter [facility] Work Phone: 10-16-2023 Plan of care [...] pain and headache. Will continue to monitor. [facility] Work Phone: 10-16-2023 History and physical note History Of Present Illness Italia Allen is a 68 y.o. male with PMH of HTN, HLD, DM2, Morbid obesity, OA and CHF, presented to [facility] with two days of chest pain and worsening SOB and PARSONS. He states that he knows of his CHF for the past 20 years and had a LHC then that did not show obstructive CAD but does not remember if he did an echocardiography then or how much was his EF. At [facility], he was desaturated with 70% O2 sat at RA and his troponin was uptrending. Therefore, he was transferred to [facility] for further workup and management. At [facility], he was treated with IV lasix with significant improvement of his SOB and volume status. He underwent a TTE that was reported to show an EF of 45-50% without significant valvular disease. He also underwent a LHC that showed 3VD with 70-80% stenosis of prox-mid LAD, 90% of OM1 and SUPERVISOR [employer] MILL of prox RCA with collateral filling of [...] of prox-mid LAD, 90% of OM1 and SUPERVISOR FE[employer] MILL of prox RCA with collateral filling of [...] previous EF. - obtain TTE images from [facility] - was on IV lasix but looks like he is back to his baseline - will resume bumex 2mg #NSTEMI # 3VD - continue Heparin gtt, aspirin and statins - obtain C images from [facility] - CTS consult for CABG #DM - insulin sliding scale #HTN - on lisinopril # CKD - Cr 1.7, stable - no previous info on kidney function- last Cr in 2017 was normal. - behaves like CKD with [...] pain and PARSONS. He was transferred to [facility] where an echo showed EF 45-50% and LHC showed 3VD with reported 70-80% stenosis of the prox-mid LAD, 90% OM1 and SUPERVISOR FE[employer] MILL of proximal RCA with left to right [...] reported baseline of 1.5. Mario Heck MD [facility] Work Phone: 10-15-2023 Discharge summary Note Date/Time October 15, 2023 6:18pm [facility] [address] [place] [address] Discharge Summary Signed Patient: Italia Allen MR#: [id number] : 1955 Acct:[id number] Age/Sex: 68 / M Adm Date: 4 Loc: Room: [address] [place] [address]: Yovanny Rivera MD Copies to: [...] II, HTN, obesity, HFpEF who presentsto the [facility] emergency department with complaints of deep pain [...] recommended for transfer to tertiary care facility ([facility] under Dr. Galdamez) for likely [...] % (Auto) 74.1, Lymph % (Auto) 11.9, Lenoir % (Auto) 9.3, Eos % (Auto) 3.7, Baso % (Auto) 1.0, Nucleat RBC Rel Count 0.1, Neut # (Auto) 7.3, Lymph # (Auto) 1.2, Lenoir # (Auto) 0.9 H, Eos # (Auto) [...] 1.5 Documented By: Yovanny Rivera MD 4 [id number] Signed By: <Electronically signed by Yovanny Rivera MD> 10/15/23 8515 [facility] Work Phone: 1(193) 967-975708-26-2024 Progress note Author Ann Henao [facility] October 15, 2023 12:58pm Note Date/Time October 15, 2023 12 :57pm [facility] [address] [place] [address] Cardiology Progress Note Signed Patient: Italia Allen MR#: [id number] : 1955 Acct:[id number] Age/Sex: 68 / M Adm Date: 4 Loc: Room: [address] [place] [address] Type: ADM IN Attending Dr: Yovanny Rivera [...] MPV Neut % (Auto) Lymph % (Auto) Lenoir % (Auto) Eos % (Auto) Baso % (Auto) Nucleat RBC Rel Count Neut # (Auto) Lymph # (Auto) Len[place] # (Auto) Eos # (Auto) Baso # [...] % (Auto) 74.1 Lymph % (Auto) 11.9 Lenoir % (Auto) 9.3 Eos % (Auto) 3.7 Baso % (Auto) 1.0 Nucleat RBC Rel Count 0.1 Neut # (Auto) 7.3 Lymph # (Auto) 1.2 Lenoir # (Auto) 0.9 H Eos # (Auto) [...] MPV Neut % (Auto) Lymph % (Auto) Lenoir % (Auto) Eos % (Auto) Baso % (Auto) Nucleat RBC Rel Count Neut # (Auto) Lymph # (Auto) Lenoir # (Auto) Eos # (Auto) Baso # [...] and agreed Documented By: Ann Henao MD 10/15/23 1256 Signed By: <Electronically signed by MD Ann Henao> 10/15/238 [facility] Work Phone: 1(232) 855-945808-26-2024 [facility] History and physical note Author Alondra Gonzales [facility] October 14, 2023 3:57pm Note Date/Time October 14, 2023 9: 54am [facility] [address] [place] [address] Hospitalist H&P Signed Patient: Italia Allen MR#: [id number] : 1955 Acct:[id number] Age/Sex: 68 / M Adm Date: 4 Loc: Room: [address] [place] [address] Type: ADM IN Attending Dr: Alondra Gonzales [...] He was brought as a transfer from [facility]. As per ED note at [facility],patient presented to the ED at [facility] with chest pain, described as deep pain [...] or diaphoresis. He showed activity ED at [facility] with oxygen saturation of 70% he was noticed to have bilateral lower extremity edema and he was started on BiPAP as well as was given IV Lopressor 1 dose and was started on heparin drip. His troponin wasuptrending EKG showed sinus tachycardia with no ischemic changes as per [facility] records(report not actual tracing). Labs: CBC showed [...] 4 Documented By: Alondra Gonzales MD 10/14/23 0948 Signed By: <Electronically signed by Alondra Gonzales MD> 10/14/23 1557 [facility] Work Phone: 1(616) 639-149708-25-2024 Consult note Author Ann Henao [facility] October 14, 2023 2:55pm Note Date/Time October 14, 2023 2: 51pm [facility] [address] [place] [address] Cardiology Consult Note Signed Patient: Italia Allen MR#: [id number] : 1955 Acct:[id number] Age/Sex: 68 / M Adm Date: 4 Loc: Room: [address] [place] [address] Type: ADM IN Attending Dr: Alondra Gonzales MD Copies to: NON STAFF MD Ann Gordillo MD~ Cardiology HPI History of Present Illness Consult Date: 10/14/23 Reason for Consult: Cardiac consultation requested for evaluation for shortness of breath chest heaviness and acute coronary syndrome HPI: Mr. Allen is a 68 year old male who denies prior cardiac history presented to [facility] emergency room complaining of increasing shortness of breath and chest heaviness. He was evaluated and felt to have evidence of acute coronary syndrome and heart failure and arrangement was made to transfer the patient to [facility] for further care. The patient reports historyof longstanding diabetes mellitus and hypertension. He report over the last fewweeks he has been describing decreased exercise tolerance and dyspnea on exertion. He has seen his family physician on several occasion with adjustment of his medication but without improvement. Prior to presentation to the emergency room at [facility] he developed worsening shortness of breath and [...] (Auto) 0.9 L 0.9 L (1.00-4.8) x10E3/uL Lenoir # (Auto) 0.6 0.6 (0.0-0.8) x10E3/uL Eos [...] a.m. Documented By: Ann Henao MD 10/14/23 1444 Signed By: <Electronically signed by MD Ann Henao> 10/14/23 4403 [facility] Work Phone: Evaluation + Plan note Future Appointments Appointment Date:11/29/2023 03:00:00 PM Scheduled Provider: Location:[facility] Appointment Type:URO Nurse Visit Appointment Date:12/04/2023 03:00:00 PM Scheduled Provider:RADHA Grier APRN, [place] [facility] Location:[facility] Appointment Type:URO Office Visit [facility] Evaluation + Plan note Future Appointments Appointment Date:02/21/2024 11:00:00 AM Scheduled Provider:LILLIAM PHAM PA-C Location:[facility] Appointment Type:URO Office Visit [facility] evaluation + Plan note Future Appointments Appointment Date:02/26/2024 11:00:00 AM Scheduled Provider:LILLIAM PHAM PA-C Location:[facility] Appointment Type:URO Office Visit [facility] evaluation note* Diagnosis Onset Date Resolution Status ACS (acute coronary syndrome) acute Acute hypoxic respiratory failure acute Systolic CHF, acute on chronic acute [facility] Work Phone: evaluation note* Diagnosis Dermatophytosis of nail- Primary Dystrophic nail Other specified disease of nail Angiopathy, diabetic (CMS/[facility]) Type II or unspecified type diabetes mellitus with peripheral circulatory disorders, not stated as uncontrolled Diabetic polyneuropathy associated with type 2 diabetes mellitus ([facility]) [facility]* Diagnosis NSTEMI (non-ST elevated myocardial [...] region and thigh documented in this encounter [facility] Work Phone: Evaluation note* Diagnosis Acute on chronic systolic (congestive) heart failure (Multi)- Primary CAD, multiple vessel Acute on chronic systolic (congestive) heart failure (Multi) NSTEMI (non-ST elevated myocardial infarction) (Multi) Acute myocardial infarction, subendocardial infarction, episode of care unspecified Shortness of breath Other disorders of arteries, arterioles and capillaries in diseases classified elsewhere ([facility]) Peripheral vascular disease, unspecified ([facility]) Peripheral vascular disease, unspecified Encounter for preprocedural [...] with depressed mood documented in this encounter [facility] Work Phone: Evaluation note* Diagnosis CAD, multiple vessel- Primary Primary hypertension Unspecified essential hypertension Chronic systolic heart failure (Multi) Chronic systolic heart failure BMI 36.0-36.9,adult Stage 3a chronic kidney disease (Multi) Right carotid artery occlusion Edema, unspecified type documented in this encounter [facility] Work Phone: Evaluation note* Diagnosis Chronic low back pain without sciatica, unspecified back pain laterality- Primary Primary hypertension Unspecified essential hypertension Edema, unspecified type documented in this encounter [facility] Work Phone: Hospital course Narrative No data available for this section [facility] Hospital Discharge instructions Additional Instructions Full code Monitor [facility] Work Phone: Hospital Discharge instructions No data available for this section [facility] Progress note No data available for this section [facility] Reason for referral (narrative)* Consultation (Routine) - Authorized Specialty Diagnoses / Procedures Referred By Genna renae Referred To Contact Cardiology Diagnoses CAD, multiple vessel Procedures Follow Up In Cardiology Ann Henao MD [address] [facility] [address], [facility] [address] [place] [address] Ann Henao MD [address] [facility] [address], [place] [address] [place] [address] Referral ID Status Reason Start Date Expiration Date V isits Requested Visits Authorized [id number] Authorized 11/02/2023 11/01/2024 1 1 [facility] Work Phone: Rekjce for visit Narrative* Auth/Cert Specialty Diagnoses / Procedures Referred By Genna renae Referred To Contact Diagnoses Syncope/NSTEMI Procedures N/A Foster Nolan MD [address] [facility] [address] [place] [address] Phone: tel: fax: [facility] [address] [facility] [place] [address] Referral ID Status Reason Start Date Expiration Date Visits Re quested Visits Authorized [id number] 1 1 [facility] Work Phone: Reason for visit Narrative* Auth/Cert Specialty Diagnoses / Procedures Referred By Contac t Referred To Contact Diagnoses [place] [address] [place] [address] [facility] [address] [place] [address] Referral ID Status Reason Start Date Expiration Date Visits Re quested Visits Authorized [id number] [facility] Work Phone: Chief Complaint and Reason [...] Procedures [place] 12 [place] [address] Department of Medicine-Cardiovascular Medicine/House Staff [place] [id number] Referral ID Status Reason Start Date Expiration Date V isits Requested Visits Authorized [id number] Authorized 11/13/2023 11/12/2024 1 1 Specialty Diagnoses / Procedures Referred By Contac t Referred To Contact Procedures ECG [place] [address] Department of Medicine-Cardiovascular Medicine/House Staff [place] [id number] Referral ID Status Reason Start Date Expiration Date V isits Requested Visits Authorized [id number] Authorized 11/13/2023 11/12/2024 1 1 Additional Source Comments Care Teams (unrecognized sec tion and content) Team Status: Active Member Role Status Dates NON STAFF Primary Care Provider Active Team Status: Inactive Member Role Status Dates NON STAFF Primary Care Provider Active Start: October 14, 2023 End: October 15, 2023 Alondra Gonzales MD Admit Provider Active Start: Nick ugust 2023 End: October 15, 2023 Ann Henao MD Other Provider Active St art: October 14, 2023 End: October 15, 2023 Yovanny Rivera MD Attending Provider Active Start: October 14, 2023 End: October 15, 2023 Block Trimmer Relationship Specialty Start Date End Date Siobhan Forde RN Care Swine Genetics Researcher 10/25/23 Block Trimmer Relationship Specialty Start Date End Date Siobhan Forde RN Care Swine Genetics Researcher 10/25/23 (unrecognized sect ion and content) No Status Records FoundNo Status Records FoundNo Status Records FoundNo Status Records FoundNo Status Records FoundNo Status Records Found INFORMATION SOURCE (unrecogn ized section and content) DATE CREATED AUTHOR 10/19/2023 [facility] DATE CREATED AUTHOR AUTHOR'S ORGANIZ ATION 11/10/2023 [facility] DATE CREATED AUTHOR AUTHOR'S ORGANIZ ATION 12/01/2023 [facility] Specialists EPIC DATE CREATED AUTHOR AUTHOR'S ORGANIZ ATION 12/29/2023 [facility] DATE CREATED AUTHOR AUTHOR'S ORGANIZ ATION 12/30/2023 [facility] DATE CREATED AUTHOR AUTHOR'S ORGANIZ ATION 04/18/2024 [facility] Reason for Visit (unrecogniz ed section and content) Reason Comments DM Foot Care 68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 Haven't been trimmed since last January. PCP: [facility] 10/2023, A1C: ?, BS: n/a Reason Comments Follow-up TCM 10/23 S/P PCI X 2 Reason Comments new pt Specialty Diagnoses / Procedures Referred By Contac t Referred To Contact Procedures ECG 12 [place] [address] Department of Medicine-Cardiovascular Medicine/[place] [address] Referral ID Status Reason Start Date Expiration Date V isits Requested Visits Authorized [id number] Authorized 11/13/2023 11/12/2024 1 1 Scheduled Active [...] Hansen RN) 0815 (Given - Provider: Bessie Crowley, SWAPNIL) atorvastatin (Lipitor) tablet 80 mg 80 mg, oral, Nightly, First dose on 12/22/23 at 2100 2226 (Given - Provider: Linh Genao LPN - Comment: nurse workflow) 210 (Given - Provider: Lulú Rosas RN) 2100 (Due) bumetanide (Bumex) tablet 2 [...] Rosas, SWAPNIL) 0815 (Given - Provider: Bessie Crowley RN)2100 [...] - Provider: Quynh Hansen RN - Reason: Other)2126 (Not Given - Provider: Lulú Rosas RN [...] Hansen RN) 1119 (Given - Provider: Bessie Crowley, RN) Glucommander - insulin glargine (Lantus) injection [...] finished tray upon RN arrival at shift change)212 (Not Given - Provider: Lulú Rosas RN - Reason: Contraindicated) 0959 (Not Given - Provider: Bessie Crowley RN - Reason: Order parameters not met)1409 (Given - Provider: Bessie Crowley RN)1700 (Due)2100 (Due) iron sucrose (Venofer) injection 200 mg (COMPLETED) 200 mg, intravenous, Administer over 5 Minutes, Daily, First dose on Sun12/23/23 at 1130, For 5 doses 0815 (Given - Provider: Quynh Hansen RN) 0702 (Given - Provider: Aysha Mcdonald RN) 0627 (Given - Provider: Lulú Rosas RN) lidocaine 4 % patch 1 patch 1 [...] Quynh Hansen RN)2240 (Given - Provider: Lulú Rosas, SWAPNIL) 0907 (Given - Provider: Quynh Hansen RN)2107 (Given - Provider: Lulú Rosas, SWAPNIL) 0816 (Given - Provider: Bessie Crowley, SWAPNIL)2100 (Due) perflutren protein A microsphere (Optison) injection [...] 0814 (Given - Provider: Bessie Crowley RN) sertraline (Zoloft) tablet 100 mg 100 mg, oral, Daily, First dose on Sun12/23/23 at 0900 0815 (Given - Provider: Quynh Hansen RN) 0907 (Given - Provider: Quynh Hansen RN) 0815 (Given - Provider: Bessie Crowley, SWAPNIL) spironolactone (Aldactone) tablet 50 mg 50 mg, oral, Daily, First dose (after last modification) on Sun12/25/23 at 0900 0815 (Given - Provider: Quynh Hansen RN) 0907 (Given - Provider: Quynh Hansen RN) 0815 (Given - Provider: Bessie Crowley, SWAPNIL) sulfur hexafluoride microsphr (Lumason) injection 24.28 mg 24.28 mg (2 mL), intravenous, Once in imaging, Starting on Sun12/24/23 at 1836, For 1 dose, CV Medications, Follow administration with 5 mL NaCL 0.9% injection. PRN Medication Order 12/25/2023 12/26/2023 12/27/2023 acetaminophen (Tylenol) tablet 975 mg 975 mg, oral, Every 6 hours PRN, pain mild (1-3), first line, Starting on Sun12/23/23 at 1021, Administer tablet or oral liquid per patient preference., If ordered PRN for pain, nurse is permitted to administer this medication for higher pain scores based on patient preference? Yes 2234 (Given - Provider: Linh Genao LPN) 0637 [...] to back 1040 (Given - Provider: Quynh Hansen RN) fentaNYL PF (Sublimaze) injection (COMPLETED) intravenous, As needed, Starting on Sun12/26/23 at 1704, Intraprocedure 1704 (Given - Provider: Awais Quiles, SWAPNIL)1707 (Given - Provider: Awais Quiles, SWAPNIL)1711 (Given - Provider: Awais Quiles RN) glucagon [...] 1115 2108 (Given - Provider: Lulú Rosas, SWAPNIL) midazolam (Versed) injection (COMPLETED) As needed, Starting on Sun12/26/23 at 1704, Intraprocedure 1704 (Given - Provider: Awais Quiles, RN)1707 (Given - Provider: Awais Quiles, RN)1711 (Given - Provider: Awais Quiles, RN) polyethylene glycol (Glycolax, Miralax) packet 17 g [...] pain scores based on patient preference? Yes 1856 (Given - Provider: Quynh Hansen RN) 0912 (Given - Provider: Quynh Hansen RN)1835 (Given - Provider: Quynh Hansen RN) Linked Groups Order Group 1: Glucommander [...] 1100, For 3 days, Release result to [facility]: Immediate, Please ensure POCT glucose lab frequency matches the insulin lispro frequency above. Scheduled Medication Order 10/22/2023 10/23/2023 10/24/2023 aspirin chewable tablet 81 mg 81 mg, oral, Daily, First dose on Sun10/16/23 at 0900 0824 (Given - Provider: Nesha Patel RN) 0819 (Given - Provider: Christine Coyne RN) 0828 (Given - Provider: Christine Coyne, SWAPNIL) atorvastatin (Lipitor) tablet 80 mg 80 mg, oral, Nightly, First dose on Sun10/16/23 at 0130 2131 (Given - Provider: Ifrah Snell RN) 2054 (Given - Provider: Lulú Rosas, SWAPNIL) 2100 (Due) bumetanide (Bumex) tablet 2 mg 2 mg, oral, Daily, First dose (after last modification) on Sun10/21/23 at 1115 0824 (Given - Provider: Nesha Patel RN) 0819 (Given - Provider: Christine Coyne, SWAPNIL) 0828 (Given - Provider: Christine Coyne, SWAPNIL) carvedilol (Coreg) tablet 25 mg 25 mg, oral, 2 times daily, First dose (after last modification) on Symone 10/18/23 at 0900 0824 (Given - Provider: Nesha Patel RN)2130 (Given - Provider: Ifrah Snell, RN) 08 (Given - Provider: Christine Coyne RN)2053 (Given - Provider: Lulú Rosas, RN) 08 (Given - Provider: Christine Coyne RN)2099 (Due) enoxaparin (Lovenox) syringe 40 mg 40 mg, subcutaneous, Every 24 hours, First dose on Sun10/18/23 at 2100, Indications: deep vein thrombosis prevention 2130 (Given - Provider: Ifrah Snell, RN) 2053 (Given - Provider: Lulú Rosas, RN) 2099 (Due) insulin glargine (Lantus) injection 30 Units 30 Units, subcutaneous, Daily, First dose (after last modification) on Sun10/23/23 at 0900, Patient will be NPO for procedure 08 (Given - Provider: Christine Coyne RN) 08 (Given - Provider: Christine Coyne RN) insulin glargine (Lantus) injection 60 Units 60 Units, subcutaneous, Daily, First dose (after last modification) on Sun10/22/23 at 0900, On hold since Sun10/22/2023 at 1113 until manually unheld 08 (Given - Provider: Nesha Patel RN)1113 (Held by provider - Provider: Italia Cabrera, [employer] MARKETING MANAGER[employer], DNP - Reason: NPO) 0900 (Not Given [...] Coyne RN)1130 (Not Given - Provider: Christine oCyne RN - Reason: Other - Comment: pt being discharged)1700 (Due) lidocaine 4 % patch 1 patch 1 patch, transdermal, Administer over 12 Hours, Daily, First dose on Sun10/16/23 at 1400, Apply to back. Patch will remain on for 12 hours, then removed for [address] patch directly over any surgical incisions or wounds. 08 (Not Given - Provider: Nesha Patel RN - Reason: Patient/family refused) 0827 (Not Given - Provider: Christine Coyne RN - Reason: Patient/family refused) 08 (Not Given - Provider: Christine Coyne RN - Reason: Patient/family refused) lisinopril tablet 40 mg 40 mg, oral, Daily, First dose (after last modification) on Sun10/22/23 at 0900 0824 (Given - Provider: Nesha Patel RN) 0819 (Given - Provider: Christine Coyne, SWAPNIL) 0828 (Given - Provider: Christine Coyne RN) pantoprazole (ProtoNix) EC tablet 40 mg(Linked Group 1) 40 mg, oral, Daily before breakfast, First dose on Sun10/16/23 at 0745, Do not crush, chew, or split. 0600 (Given - Provider: Ifrah Snell RN) 0603 (Not Given - Provider: Ifrah Snell RN - Reason: NPO) 0523 (Given - Provider: Lulú Rosas RN) prasugrel (Effient) tablet 10 mg(Linked Group 2) [...] prevention of constipation Hold for loose stools 08 (Not Given - Provider: Nesha Patel RN - Reason: Patient/family refused)2130 (Not Given - Provider: Ifrah Snell RN - Reason: Patient/family refused) 08 (Not Given - Provider: Christine Coyne RN - Reason: Patient/family refused)2056 (Not Given - Provider: Lulú Rosas, RN - Reason: Patient/family refused) 0814 (Not [...] Coyne RN)2056 (Stopped - Provider: Lulú Rosas, RN) Continuous Medication Order 10/22/2023 10/23/2023 10/24/2023 sodium chloride 0.9% infusion () 125 mL/hr, intravenous, Continuous, Starting on Sun10/23/23 at 1115, For 3 hours 1126 (New Bag - Provider: Jostin Villalobos RN)1413 (Stopped - Provider: Christine Coyne RN) PRN Medication Order 10/22/2023 10/23/2023 10/24/2023 [...] RN)175 (Given - Provider: Nesha Patel RN) 0004 (Given - Provider: Ifrah Snell RN)0826 (Given - Provider: Christine Coyne RN)1830 (Given - Provider: Christine Coyne RN) 0523 (Given - Provider: Lulú Rosas, RN) dextrose 50 % injection 12.5 g [...] 1507, Intraprocedure 1507 (Given - Provider: Samara Umana, SWAPNIL)1559 (Given - Provider: Samara Umana, RN)1609 (Given - Provider: Samara Umana, RN)1626 (Given - Provider: Samara Umana, SWAPNIL) glucagon (Glucagen) injection 1 mg 1 mg, [...] 1511, Intraprocedure 1511 (Given - Provider: Samara Umana, SWAPNIL)1558 (Given - Provider: Samara Umana RN)1643 (Given - Provider: Samara Umana RN) iohexol [...] 0044 0005 (Given - Provider: Ifrah Snell RN)2057 (Not Given - Provider: Lulú Rosas RN - Reason: Patient/family refused) midazolam (Versed) injection (CANCELED) As needed, Starting on Sun10/23/23 at 1508, Intraprocedure 1508 (Given - Provider: Samara Umana RN) nitroglycerin (Nitrostat) SL tablet 0.4 mg 0.4 [...] Intraprocedure 1456 (New Bag - Provider: Terrence Duarte, RN) sodium chloride 0.9% infusion (COMPLETED) Continuous PRN, Starting on Sun10/23/23 at 1506, Intraprocedure 1506 (New Bag - Provider: Terrence Duarte, RN) traMADol (Ultram) tablet 25 mg 25 mg, oral, Every 8 hours PRN, pain severe (7-10), first line, Starting on Sun10/21/23 at 1044, Max of 300 mg daily for patients > 75 years of age., If ordered PRN for pain, nurse is permitted to administer this medication for higher pain scores based on patient preference? Yes 0032 (Given - Provider: Ifrah Snell RN)08 (Given - Provider: Nesha Patel RN)175 (Given - Provider: Nesha Patel RN) 08 (Given - Provider: Christine Coyne, RN)1830 (Given - Provider: Christine Coyne, SWAPNIL) [...] ON THE PRIMARY CLINICAL RECORDS. [facility]. provides no warranty or guarantee of the accuracy or completeness of information in this document.
[2024-04-24] MEDS: ALBUTEROL SULFATE 2.5 MG/3 ML VIAL NEB IH (19:43)
[2024-04-24] MEDS: METHYLPREDNISOLONE SOD SUCC PF 125 MG/2 ML VIAL IVP (19:52)
[2024-04-24] MEDS: 0.9 % SODIUM CHLORIDE 1,000 ML 1000 ML IV (19:53)
[2024-04-24] MEDS: WATER FOR IRRIGATION, STERILE 1,000 ML IRRIG BOTTLE 1000 ML IRR (20:00)
[2024-04-24 20:08] LABS: Hematocrit 24.6 % (42.0-54.0); Hemoglobin 7.1 g/dL (14.0-18.0); Mean Corpuscular HGB Conc 28.9 g/dL (29.9-35.2); Mean Corpuscular Hemoglobin 23.7 pg (25.9-34.0); Mean Corpuscular Volume 82.3 fL (80.0-94.0); Mean Platelet Volume 9.5 fL (9.5-13.5); PCO2 VBG 43.2 mmHg (40.0-52.0); Platelet Count 590 10^3/uL (150-450); Red Blood Count 2.99 10^6/uL (4.70-6.10); Red Cell Distribution Width 18.7 % (11.0-15.0); White Blood Count 22.5 10^3/uL (4.0-11.0); pH VBG 7.379 (7.330-7.430)
[2024-04-24 20:18] LABS: Influenza Virus A Antigen Negative; Influenza Virus B Antigen Negative; Internal Control Within Normal Limits; SARS-CoV-2 Ag NEGATIVE (NEGATIVE)
[2024-04-24 20:20] LABS: INR 1.19; Prothrombin Time 12.4 sec (9.0-11.6)
[2024-04-24 20:24] LABS: Alanine Aminotransferase 56 U/L (16-63); Albumin Globulin Ratio 0.5; Albumin Level 2.2 g/dL (3.4-5.0); Alkaline Phosphatase 134 U/L (46-116); Anion Gap 17.6; Aspartate Amino Transferase 53 U/L (15-37); BUN Creatinine Ratio 20.5; Bilirubin Total 0.3 mg/dL (0.2-1.0); Calcium 8.9 mg/dL (8.5-10.1); Carbon Dioxide 25.6 mmol/L (21.0-32.0); Chloride 102 mmol/L (98-107); Estimated GFR (African America 18 (>=60 mL/min/1.73m^2); Estimated GFR (Non-African Ame 15 (>=60 mL/min/1.73m^2); Globulin 4.6 g/dL; Glucose 237 mg/dL (74-106); Potassium 5.2 mmol/L (3.5-5.1); Sodium 140 mmol/L (136-145); Total Protein 6.8 g/dL (6.4-8.2)
[2024-04-24 20:25] LABS: Bilirubin Urine NEGATIVE (NEGATIVE); Blood Urine TRACE-I (NEGATIVE); Clarity Urine SL CLOUDY (CLEAR); Color Urine LT. YELLOW (YELLOW); Glucose Urine UA NEGATIVE (NEGATIVE); Ketones Urine NEGATIVE (NEGATIVE); Leukocyte Esterase Urine SMALL (NEGATIVE); Nitrite Urine POSITIVE (NEGATIVE); Protein Urine 30 mg/dL (NEG/TRACE); Specific Gravity Urine 1.025 (1.005-1.025); Urobilinogen Urine 0.2 EU/dL (0.2-1.0); pH Urine 5.5 (5.0-9.0)
[2024-04-24 20:29] LABS: Magnesium 2.4 mg/dL (1.8-2.4)
[2024-04-24] MEDS: PIPERACILLIN SODIUM/TAZOBACTAM 4.5 GM in 0.9 % SODIUM CHLORIDE 50 ML IV (20:29)
[2024-04-24 20:32] LABS: Band Neutrophils Absolute 0.2 10^3/uL (0.0-0.3); Segmented Neut Absolute Manual 20.92 10^3/uL (1.4-6.5)
[2024-04-24 20:33] LABS: Eosinophils Absolute Manual 0.67 10^3/uL (0.00-0.70); Lymphocytes Absolute Manual 0.22 10^3/uL (1.20-3.80); Monocytes Absolute Manual 0.45 10^3/uL (0.30-0.80)
[2024-04-24 20:35] LABS: Hypochromasia 2+
[2024-04-24 20:40] LABS: Lactate/Lactic Acid 2.1 mmol/L (0.4-2.0); NT Pro B Type Natriuretic Pept >35000.0 pg/mL (<=900.0); Troponin I High Sensitivity 640.4 pg/mL (4.0-76.1)
[2024-04-24 20:46] LABS: Bacteria Urine MODERATE #/HPF (NONE SEEN); Cast Seen? NONE SEEN #/LPF (NONE SEEN); Crystals Seen? None Seen #/HPF (None Seen); Mucus Urine NONE SEEN (NONE SEEN); RBC Urine 0-2 #/HPF (0-2); Squamous Epithelial Cell Urine NONE SEEN #/LPF (NONE/RARE); Urine Culture Indicated YES-FRMC
[2024-04-24] MEDS: VANCOMYCIN HCL 1,250 MG in 0.9 % SODIUM CHLORIDE 500 ML 250 MG IV (21:03)
[2024-04-24 21:41] LABS: Troponin I High Sensitivity 651.9 pg/mL (4.0-76.1)
[2024-04-24] MEDS: FUROSEMIDE 40 MG/4 ML VIAL IVP (23:12)
[2024-04-25 00:21] VITALS: BP 141/83; PULSE 105; TEMP 36.4
[2024-04-25] MEDS: 0.9 % SODIUM CHLORIDE 250 ML 10 ML IV (00:24)
[2024-04-25] MEDS: MORPHINE SULFATE 4 MG/ML VIAL IV (01:25)
[2024-04-25] MEDS: ONDANSETRON PF 4 MG/2 ML VIAL IV (01:26)
== END 2024-04-25 01:18 | disposition short-term general hospital (02) ==
PROVIDERS: Physician Assistant; Emergency Provider Emergency Medicine; PCP Nurse Practitioner Family
DX: A41.9 Sepsis, unspecified organism (principal); R06.02 Shortness of breath; J18.9 Pneumonia, unspecified organism; I25.10 Atherosclerotic heart disease of native coronary artery without angina pectoris; I50.9 Heart failure, unspecified; D64.9 Anemia, unspecified; N17.9 Acute kidney failure, unspecified; Z91.81 History of falling; Z66 Do not resuscitate; Z90.49 Acquired absence of other specified parts of digestive tract; Z95.5 Presence of coronary angioplasty implant and graft; R06.03 Acute respiratory distress; I25.2 Old myocardial infarction; I21.4 Non-ST elevation (NSTEMI) myocardial infarction
CPT/HCPCS: 36415; 36430; 71045; 80053; 81001; 82800; 83605; 83735; 83880; 84484; 85007; 85027; 85610; 86850; 86900; 86901; 86923; 87040; 87070; 87086; 87150; 87186; 87205; 87804; 87811; 93005; 94640; 94660; 96365; 96366; 96367; 96375; 99291; 99292; J1940; J2270; J2405; J2543; J2919; J3370; P9016